=== PATIENT | female | born 1940 | race Caucasian/White ===

== ENCOUNTER → 2022-04-12 | Outpatient (CLI) | payer MEDICARE, MEDICAID, SELFPAY ==
--- NOTE | 2022-04-12 13:31 | VDLE_ITS ---
Reason For Study: Venous insufficiency RIGHT LEFT CFV is compressible, spontaneous, phasic, CFV is compressible, spontaneous, phasic, competent and demonstrates normal competent, and demonstrates normal augmentation. augmentation. FV is compressible, spontaneous, phasic, FV is compressible, spontaneous, phasic, competent and demonstrates normal competent and demonstrates normal augmentation. augmentation. POP V is compressible, spontaneous, phasic, POP V is compressible, spontaneous, phasic, competent and demonstrates normal competent and demonstrates normal augmentation. augmentation. T/P Trunk is compressible. T/P Trunk is compressible. PTV is compressible. PTV is compressible. RT PerV is compressible. LT PerV is compressible. SFJ is competent and measures 0.80 x 0.86 cm. SFJ is INCOMPETENT and measures 0.91 x 1.00 GSV proximal thigh measures 0.66 x 0.66 cm. cm. GSV above knee is competent. GSV proximal thigh measures 0.52 x 0.56 cm. GSV at knee measures 0.62 x 0.67 cm. GSV at knee measures 0.52 x 0.53 cm. GSV below knee is INCOMPETENT for greater GSV INCOMPETENT throughout for greater than than 0.5 seconds. 0.5 seconds. ASV proximal calf is INCOMPETENT for greater ASV proximal calf is INCOMPETENT for greater than 0.5 seconds and measures 0.33 x 0.33 cm. than 0.5 seconds and measures 0.36 x 0.36 cm. SSV at junction is competent and measures SSV at junction is competent and measures 0.20 x 0.20 cm. 0.07 x 0.07 cm. Procedure Exam performed in department. This is a venous duplex using B-mode, color flow and spectral Doppler. Patient was scanned in reverse Trendelenburg position during reflux assessment. VL/Venous Duplex US - Jason Extrem Interpretation Summary Bilateral no DVT noted. The right calf ASV and GSV with reflux noted. The left GSV measuring 9.1, 5.6 and 5.3 mm with reflux throughout. Ordering Physician: Yimi Pope Referring Physician: Tu Younger Performed By: Elvira Crowe RVT
== END | disposition home or self-care (01) ==
LOC: CVS 13:29
PROVIDERS: PCP Family Medicine; Visit Provider Surgery Vascular Surgery
DX: I87.2 Venous insufficiency (chronic) (peripheral) (principal); J44.1 Chronic obstructive pulmonary disease with (acute) exacerbation; I83.893 Varicose veins of bilateral lower extremities with other complications; M79.89 Other specified soft tissue disorders; M79.606 Pain in leg, unspecified; F17.200 Nicotine dependence, unspecified, uncomplicated
CPT/HCPCS: 93970

== ENCOUNTER 2022-05-30 05:16 | Day surgery (SDC) | payer MEDICARE, MEDICAID, SELFPAY ==
[2022-05-30] VITALS (7 sets, daily range): BP systolic 128–184; BP diastolic 64–82; PULSE 63–83; RESP 14–141; TEMP 36–36.4; O2SAT 98; BMI 24.5
[2022-05-30] MEDS: Lactated Ringers 1,000 ML 15 ML IV (06:07)
--- NOTE | 2022-05-30 06:30 | COLBX_PTH ---
PATIENT: FLORECITA HERNANDEZ LOC: EN U#:[id number] AGE/SX: 81/F ROOM: RE05/30/[address]: Dr. Jose Angel Borrero DO : 1940 BED: DIS: 05/30/2022 SPEC #: [id number] RECD: 05/30/22 09:16 STATUS: JUSTINA SNYDER #: [id number] JUANJOSE: 05/30/22 06:[address]: Jose Angel Borrero DEPT: SURGICAL PATHOLOGY RECD BY: Franci Mcneill ENTERED: 05/30/22 10:00 SP TYPE: COLON BX OTHR DR: MD Tu Ibrahim Tissues: A - Cecum, NOS B - COLON BIOPSY C - Rectum, NOS D - Rectum, NOS Procedures: Surgery Specimen Level IV HEADER OPERATION: Colonoscopy (MAC), polypectomy PRE-OP DIAGNOSIS: History of colonic polyps, bleeding internal hemorrhoids TISSUE SUBMITTED: A - Cecal polyp, B - Splenic flexure polyp, C - Rectal polyp biopsy, D - Anorectal junction biopsy MICROSCOPIC DIAGNOSIS A. Cecal polyp, biopsy: Fragments of tubular adenoma. B. Splenic flexure polyp, biopsy: Fragments of tubular adenoma. C. Rectal polyp, biopsy: Fragments of hyperplastic polyp. D. Anorectal junction, biopsy: Denudation of superficial mucosa with fibrinopurulent material suggestive of ulcer. AM:venkatesh 05/31/2022 MICROSCOPIC DESCRIPTION Slides are reviewed. GROSS DESCRIPTION A - Received in fixative is one container labeled with the patient's name and designated cecal polyp. The specimen consists of multiple mucoid fragments that in aggregate measure 1 x 0.6 x <0.1 cm. The specimen is totally submitted in one cassette. B - Received in fixative is one container labeled with the patient's name and designated splenic flexure polyp. The specimen consists of multiple irregular fragments of light moore soft tissue that in aggregate measure 0.6 x 0.5 x 0.1 cm. The specimen is totally submitted in one cassette. C - Received in fixative is one container labeled with the patient's name and designated rectal polyp. The specimen consists of two irregular fragments of light moore soft tissue that in aggregate measure 0.6 x 0.5 x 0.1 cm. The specimen is totally submitted in one cassette. D - Received in fixative is one container labeled with the patient's name and designated anorectal junction biopsy. The specimen consists of two irregular fragments of light moore soft tissue that in aggregate measure 0.5 x 0.5 x 0.1 cm. The specimen is totally submitted in one cassette. / AM:venkatesh 05/30/2022 TC:2 CPT: 02920 x4
--- NOTE | 2022-05-30 06:35 | PCM.HP.BLA ---
History and Physical Date of Admission: 05/30/22 ?EVANGELINA HERNANDEZ, is a 81 F who presents to the office today for Initial consult. Evangelina established with this clinic 04.17.22 with referral from PCP for evaluation of hemorrhoids, constipation and possible need for colonoscopy. Her age is 81 years which puts her outside of the ability to schedule through open access. Historically she was having difficulty with constipation and abdominal pain (relieved with BM) for several days alternating with several days of diarrhea. She has been on narcotics since 1976 for pain management; stopped and pain has actually improved with a reduction in hip and joint pain. Constipation has required manual disimpaction; no longer needed since cessation of narcotics. For recent memory she has been having increased issue with constipation and less diarrhea. Failed Colace and MiraLAX, senna, laxatives, enemas. PMH chronic pain syndrome, degenerative disc disease ([facility] pain management); breast cancer s/p mastectomy; hyperlipidemia; HTN; osteopenia; Jovana thyroiditis. PSH cholecystectomy. CT abd/pel 11.01.21 with limited assessment of colon r/t absence of luminal distention; noted intraluminal fat in ascending colon; colonic diverticulosis. Colonoscopy last performed three years prior with four polyps removed (first time polyps were removed). Previously had been having colonoscopies each year. ROS Const Constitutional: No anorexia, fatigue, fever(s), weight change or sleep problems Eyes Eyes: No change in vision ENT ENT: No abnormal hearing, difficulty swallowing, mouth lesions, tongue swelling or throat swelling Resp Respiratory: No cough or shortness of breath Cardio Cardiology: No chest pain at rest, chest pain with exertion, shortness of breath or dyspnea on exertion Gastro GI: No difficulty swallowing Genitourinary-Female: No difficulty urinating or burning urination Musc Musculoskeletal: No joint pain, joint swelling, muscle weakness or decreased muscle mass Skin Skin: No hair loss in leg, yellowing of the eye, itchy eyes, rash, skin ulcer or skin swelling Neuro Neurology: No abnormal hearing, abnormal movements, confusion, unsteady gait/balance or memory loss Psych Psychiatric: No anxiety, No confusion and No memory loss Endo Endocrine: No fatigue or weight change Aller/Imm Allergy/Immunologic: No itchy eyes, throat swelling or tongue swelling Shmuel/Lymp Hematologic/Lymphatic: No easy bleeding, easy bruising or enlarged lymph nodes Exam Const General: cooperative and comfortable Nutritional Appearance: average body habitus and well nourished [facility] Head: normal to inspection Ears: hearing grossly normal bilaterally Nose: external nose normal Face and sinus: normal facial exam Mouth: oral mucosae normal Throat: posterior oropharynx normal Eyes General: appearance normal, both eyes and all related structures Neck Neck: normal visual inspection Chest Chest palpation & inspection: normal inspection of the chest and normal palpation of entire chest wall Resp Effort & Inspection: normal respiratory effort Auscultation: Bilateral: Clear to Auscultation Cardio Palpation: normal PMI Rate: regular rate Rhythm: regular rhythm GI Inspection: normal to inspection Auscultation: normal bowel sounds Percussion: normal to percussion Palpation: no hepatosplenomegaly Skin General: no rashes or lesions noted Neuro General: patient alert Extrem General: normal to inspection Psych Affect: normal affect Quality Reporting Tobacco Screening ([facility] 138) Smoking Status: Current every day smoker Assessment and Plan Assessment and Plan (1) Personal history of colonic polyps: ?Status:?Acute ?Plan - Dr. Walter Friend, DO: She will undergo colonoscopic evaluation due to history of adenomatous polyps.? She had 4 removed on her last colonoscopy.? She was explained alternatives, risk, benefits including understanding bleeding, infection, sepsis, perforation, need for emergent .? Have an ASA of 1. (2) Bleeding internal hemorrhoids: ?Status:?Acute ?Plan - Dr. Walter Friend, DO: Also she does have internal hemorrhoids.? We will treat them when she has colonoscopy. I have re-examined the patient. There are no clinical changes since date of exam.
--- NOTE | 2022-05-30 07:29 | OP.COLON_ITS ---
Patient Name: Evangelina Healy Procedure Date: 05/30/2022 6:13 AM Date of : 1940 Age: 81 Procedure: Colonoscopy Indications: Screening for colorectal malignant neoplasm Providers: Jose Angel Borrero DO Referring MD: Tu Younger Medicines: Monitored Anesthesia Care Patient Profile: This is a 81 year old female. Refer to note in patient chart for documentation of history and physical. Last Colonoscopy: more than 10 years ago. Complications: No immediate complications. Procedure: Pre-Anesthesia Assessment: - Prior to the procedure, a History and Physical was performed, and patient medications and allergies were reviewed. The patient is competent. The risks and benefits of the procedure and the sedation options and risks were discussed with the patient. All questions were answered and informed consent was obtained. Patient identification and proposed procedure were verified by the physician in the pre-procedure area. Mental Status Examination: alert and oriented. Airway Examination: normal oropharyngeal airway and neck mobility. Respiratory Examination: clear to auscultation. CV Examination: normal. Prophylactic Antibiotics: The patient does not require prophylactic antibiotics. Prior Anticoagulants: The patient has taken no previous anticoagulant or antiplatelet agents. After reviewing the risks and benefits, the patient was deemed in satisfactory condition to undergo the procedure. The anesthesia plan was to use moderate sedation / analgesia (conscious sedation). Immediately prior to administration of medications, the patient was re-assessed for adequacy to receive sedatives. The heart rate, respiratory rate, oxygen saturations, blood pressure, adequacy of pulmonary ventilation, and response to care were monitored throughout the procedure. The physical status of the patient was re-assessed after the procedure. After I obtained informed consent, the scope was passed under direct vision. Throughout the procedure, the patient's blood pressure, pulse, and oxygen saturations were monitored continuously. The Colonoscope was introduced through the anus and advanced to the cecum, identified by the appendiceal orifice, ileocecal valve and palpation. The colonoscopy was performed without difficulty. The patient tolerated the procedure well. The quality of the bowel preparation was adequate. Scope In: 6:41:50 AM Scope Withdrawal Time 0 hours 25 minutes 4 seconds Scope Out: 7:15:51 AM Total Procedure Duration Time 0 hours 34 minutes 1 second Findings: The perianal and digital rectal examinations were normal. Three sessile polyps were found in the rectum, splenic flexure and ascending colon. The polyps were 1 to 2 mm in size. These polyps were removed with a hot snare. Resection and retrieval were complete. Verification of patient identification for the specimen was done. Estimated blood loss was minimal. Bleeding external and internal hemorrhoids were found during retroflexion and during perianal exam. The hemorrhoids were Grade II (internal hemorrhoids that prolapse but reduce spontaneously). A hemorrhoid was isolated with endoscopy. The ligator was positioned over the hemorrhoid at the left lateral position. Suction was applied and one rubber band was placed over the hemorrhoid. This was checked to make certain that the muscularis was free of the band. Post-banding digital rectal exam showed band in good position. Mild oozing of blood was present. Discontinuous areas of nonbleeding ulcerated mucosa with no stigmata of recent bleeding were present at the anus. Biopsies were taken with a cold forceps for histology. Verification of patient identification for the specimen was done. Estimated blood loss was minimal. A few small and large-mouthed diverticula were found in the recto-sigmoid colon and sigmoid colon. Impression: - Three 1 to 2 mm polyps in the rectum, at the splenic flexure and in the ascending colon, removed with a hot snare. Resected and retrieved. - Bleeding external and internal hemorrhoids. Banded. - Mucosal ulceration. Biopsied. Recommendation: - Discharge patient to home. - Resume previous diet. - Continue present medications. - Await pathology results. - Repeat colonoscopy in 5 years for surveillance. Procedure Code(s): --- Professional --- 89013, Colonoscopy, flexible; with removal of tumor(s), polyp(s), or other lesion(s) by snare technique 23309, Colonoscopy, flexible; with band ligation(s) (eg, hemorrhoids) 40097, 59, Colonoscopy, flexible; with biopsy, single or multiple CPT copyright 2017 [employer]. All rights reserved. The codes documented in this report are preliminary and upon sales service coordinator review may be revised to meet current compliance requirements. Jose Angel Borrero DO 05/30/2022 7:28:55 AM This report has been signed electronically. Number of Addenda: 1 Note Initiated On: 05/30/2022 6:13 AM Addendum Number: 1 Addendum Date: 08/16/2022 6:17:38 AM MAC was used as sedation for this procedure. Jose Angel Borrero DO 08/16/2022 6:17:41 AM This report has been signed electronically.
--- NOTE | 2022-05-30 07:30 | OP.CCLET_ITS ---
08/16/2022 Tu Younger Re : Colonoscopy procedure for Evangelina Gaytan Carisa This procedure was performed on Monday, May 30, 2022. My impressions and recommendations are as follows: Impressions : - Three 1 to 2 mm polyps in the rectum, at the splenic flexure and in the ascending colon, removed with a hot snare. Resected and retrieved. - Bleeding external and internal hemorrhoids. Banded. - Mucosal ulceration. Biopsied. Recommendations : - Discharge patient to home. - Resume previous diet. - Continue present medications. - Await pathology results. - Repeat colonoscopy in 5 years for surveillance. My findings are described in the full procedure note, which is enclosed. If I can be of further assistance, please feel free to contact me at . Sincerely, Jose Angel Borrero, 05/30/2022 7:28:55 AM This report has been signed electronically.
== END 2022-05-30 08:09 | disposition home or self-care (01) ==
LOC: EN 05:16 → AC 05:18
PROVIDERS: PCP Family Medicine; Visit Provider Internal Medicine Gastroenterology
PROC: 0DJD8ZZ Inspection of Lower Intestinal Tract, Via Natural or Artificial Opening Endoscopic (ICD-10-PCS; CPT 45378; principal; 2022-05-30 06:25)
DX: Z12.11 Encounter for screening for malignant neoplasm of colon (principal); K64.1 Second degree hemorrhoids; K57.30 Diverticulosis of large intestine without perforation or abscess without bleeding; K62.1 Rectal polyp; D12.0 Benign neoplasm of cecum; D12.3 Benign neoplasm of transverse colon; F17.200 Nicotine dependence, unspecified, uncomplicated; Z79.890 Hormone replacement therapy; Z79.899 Other long term (current) drug therapy; Z86.010 Personal history of colon polyps
CPT/HCPCS: 45385; 45380; 45398; 88305; J7120; J2405

== ENCOUNTER → 2022-11-20 | Outpatient (CLI) | payer MEDICARE, MEDICAID, SELFPAY | END | disposition home or self-care (01) | PROVIDERS: PCP Family Medicine; Referring Provider Dermatology; Visit Provider Dermatology | DX: L40.4 Guttate psoriasis (principal); L03.115 Cellulitis of right lower limb | CPT/HCPCS: 87070; 87077; 87205 ==

== ENCOUNTER → 2022-12-05 | Outpatient (CLI) | payer MEDICARE, MEDICAID, SELFPAY | END | disposition home or self-care (01) | LOC: LABSPEC 12:49 | PROVIDERS: PCP Family Medicine; Visit Provider Dermatology | DX: L03.115 Cellulitis of right lower limb (principal); I87.2 Venous insufficiency (chronic) (peripheral) | CPT/HCPCS: 87070; 87205 ==

== ENCOUNTER → 2022-12-11 | Outpatient (CLI) | payer MEDICARE, MEDICAID, SELFPAY | END | disposition home or self-care (01) | PROVIDERS: PCP Family Medicine; Visit Provider Dermatology | DX: L03.115 Cellulitis of right lower limb (principal); I87.2 Venous insufficiency (chronic) (peripheral) | CPT/HCPCS: 87015; 87070; 87101; 87116; 87205; 87206 ==

== ENCOUNTER 2023-11-13 19:41 | Emergency (ER) | payer MEDICARE, MEDICAID, SELFPAY ==
[2023-11-13 19:42] VITALS: BP 156/91; PULSE 94; RESP 18; TEMP 36.6; O2SAT 97
[2023-11-13] MEDS: 0.9% Normal Saline (1000mL) 1,000 ML 1000 ML IV (20:24)
[2023-11-13 20:27] LABS: Absolute Lymphocyte Count 1.24 X10^3/uL (0.83-4.51); Absolute Neutrophil Count 5.1 X10^3/uL (2.0-7.7); Basophil# 0.04 X10^3/uL; Basophil% 0.6 % (0-1); Eosinophil# 0.03 X10^3/uL; Eosinophils% 0.4 % (0-5); Hematocrit 35.9 % (37-47); Hemoglobin 12.7 g/dL (12.0-15.0); Lymphocyte # 1.24 X10^3/ul (0.83-4.51); Lymphocyte % 17.2 % (19-41); Mean Corp Hgb Conc 35.4 g/dL (32-36); Mean Corpuscular Hgb 30.4 pg (27.0-32.0); Mean Corpuscular Volume 85.9 fL (81-99); Mean Platelet Vol. 11.3 fl (6.2-12.0); Monocyte# 0.71 X10^3/uL; Monocyte% 9.8 % (0-10); NRBC Flagged by Analyzer 0 % (0-5); Neutrophil # 5.13 X10^3/uL (2.7-7.7); Neutrophil % 71.2 % (47-70); Platelet Count 227 K/mm3 (150-450); RBC Distribution Width CV 14.6 % (11.6-14.6); RBC Distribution Width SD 42.5 fl (35.1-43.9); Red Blood Count 4.18 M/mm3 (4.2-5.4); White Blood Count 7.2 K/mm3 (4.4-11.0)
--- OUTSIDE RECORDS SUMMARY | 2023-11-13 20:32 | XMS RPT_ITS | CCD ---
Author Name Unknown Address [address] [place] [address] Organization [facility] Care Team Providers Care Commodity Manager Name Role Phone Hilton MEDEIROS, Tu Fernando Primary Care Provider Hilton MEDEIROS, Tu Fernando Primary Care Provider [phone] Nolan ERIC, Guerda Unavailable Ryne RN, Bhupinder Monzon Unavailable Unavailable Ryne ERIC, Bhupinder Monzon Unavailable Unavailable PROVIDER, UNKNOWN Primary Care Unavailable PROVIDER, UNKNOWN Primary Care Unavailable PROVIDER, UNKNOWN Primary Care Unavailable AKASH SMITH Admitting Unavailable RC RODRIGUEZ Consulting Unavailable PROVIDER, UNKNOWN Attending Unavailable PROVIDER, UNKNOWN Primary Care Unavailable PROVIDER, UNKNOWN Primary Care Unavailable PROVIDER, UNKNOWN Primary Care Unavailable HILTON, TU Fernando Primary Care Unavailable Aneta BROWN Referring Unavailable HILTON, TU Fernando Referring Unavailable HILTON, TU Fernando Primary Care Unavailable TU CANELA Attending Unavailable HILTON, TU Fernando Primary Care Unavailable JANNIE PROCTOR Referring Unavailable JANNIE PROCTOR Attending Unavailable TU CANELA Primary Care Unavailable HILTON, TU Fernando Referring Unavailable HILTON, TU Fernando Primary Care Unavailable HILTON, TU Fernando Primary Care Unavailable TU CANELA Referring Unavailable FREDI GALICIA Attending Unavailable TU CANELA Primary Care Unavailable NEVIN FAJARDO Referring Unavailable NEVIN FAJARDO Attending Unavailable NEVIN FAJARDO Referring Unavailable NEVIN FAJARDO Attending Unavailable HILTON, TU Fernando Primary Care Unavailable HILTON, TU Fernando Primary Care Unavailable ROSIE SYED Attending Unavailable JANNIE PROCTOR Referring Unavailable HILTON, TU Fernando Primary Care Unavailable HILTON, TU Fernando Primary Care Unavailable ROSIE SYED Attending Unavailable HILTON, TU Fernando Primary Care Unavailable ROSIE SYED Attending Unavailable HILTON, TU Fernando Primary Care Unavailable NEVIN FAJARDO Referring Unavailable TU CANELA Primary Care Unavailable PROCTOR, JANNIE D Referring Unavailable JANNIE PROCTOR Attending Unavailable TU CANELA Primary Care Unavailable JANNIE PROCTOR Referring Unavailable TU CANELA Primary Care Unavailable ROSIE SYED Attending Unavailable TU CANELA Primary Care Unavailable FREDI GALICIA Referring Unavailable FREDI GALICIA Attending Unavailable TU CANELA Primary Care Unavailable JANNIE PROCTOR Attending Unavailable JANNIE PROCTOR [facility] Unavailable Aneta BROWN Attending Unavailable Allergies Allergy Classification Reported Allergen(s) Allergy Type Date of Onset Reaction(s) Facility (20 sources) Carisoprodol; Translations: [CARISOPRODOL] Drug Allergy 2 Swelling, Itching [facility] Work Phone: (20 sources) Dust; Translations: [DUST] Allergy to substance 6 Other: See Comments [facility] Work Phone: (20 sources) Grass pollen; Translations: [GRASS POLLEN] Drug Allergy 6 Other: See Comments [facility] Work Phone: (20 sources) Mold Extract; Translations: [MOLD] Drug Allergy 6 Other: See Comments [facility] Work Phone: (20 sources) Tree; Translations: [TREES] Allergy to substance 6 Other: See Comments [facility] Work Phone: (20 sources) Animal Dander; Translations: [ANIMAL DANDER] Drug Allergy 6 Intolerance [facility] Work Phone: (20 sources) Propoxyphene N-Acetaminophen; Translations: [PROPOXYPHENE N-ACETAMINOPHEN] Drug Allergy 2 Mental Status Change [facility] Work Phone: Medications Current Medications Medication Drug Class(es) Dates Sig (Normalized) Sig (Original) baclofen 10 mg oral tablet (20 sources) gamma-Aminobutyri c Acid-ergic Agonist Start: 07-31-2023 End: 01-27-2024 take 1 tablet by mouth every twelve hours as needed baclofen 10 mg tablet Take 1 tablet by mouth twice daily as needed. 90 tablet 1 07/31/2023 01/27/2024 Active Completed/Discontinued Medications Medication Drug Class(es) Dates Sig (Normalized) Sig (Original) acetaminophen 325 mg oral tablet (20 sources) Start: 11-14-2022 take 2 tablets by mouth every four hours as needed acetaminophen (TYLENOL) 325 mg tablet Take 2 tablets by mouth every 4 hours as needed for pain. 0 11/14/2022 Active Problems Active Problems Problem Classification Problem Date Documented Da te Episodic/Chronic Aortic; peripheral; and visceral artery aneurysms (20 sources) Dilatation of aorta; Translations: [Aortic ectasia, unspecified site] Onset: 06-14-2022 Chronic Cancer of breast (20 sources) Malignant neoplasm of upper-outer quadrant of female breast; Translations: [Malignant neoplasm of upper-outer quadrant of left female breast] Onset: 05-28-2015 09-02-2018 Chronic Chronic kidney disease (20 sources) Chronic kidney disease stage 3; Translations: [CKD (chronic kidney disease) stage 3, GFR 30-59 ml/min] Onset: 01-21-2019 01-21-2019 Chronic Chronic kidney disease (1 source) Chronic kidney disease; Translations: [Stage 3a chronic kidney disease (HCC)] Onset: 11-06-2022 Chronic obstructive pulmonary disease and bronchiectasis (4 sources) Chronic obstructive lung disease; Translations: [Chronic obstructive pulmonary disease, unspecified] Onset: 01-16-2023 Chronic Complications of surgical procedures or medical care (20 sources) Postoperative hypothyroidism; Translations: [Postprocedural hypothyroidism] Onset: 11-06-2022 11-06-2022 Chronic Disorders of lipid metabolism (20 sources) Hyperlipidemia; Translations: [Hyperlipidemia, unspecified] Onset: 06-03-2012 06-03-2012 Chronic Essential hypertension (20 sources) Hypertensive disorder; Translations: [Essential (primary) hypertension] Onset: 06-03-2012 06-03-2012 Chronic Fluid and electrolyte disorders (3 sources) Hyponatremia; Translations: [Hypo-osmolality and hyponatremia] Onset: 11-06-2023 Episodic Osteoarthritis (20 sources) Bilateral arthritis of glenohumeral joints; Translations: [Primary osteoarthritis, right shoulder] Onset: 12-03-2019 06-14-2022 Chronic Other diseases of kidney and ureters (1 source) Cyst of kidney; Translations: [Cyst of kidney, acquired] Episodic Other diseases of veins and lymphatics (1 source) Peripheral venous insufficiency; Translations: [Venous insufficiency (chronic) (peripheral)] Episodic Other gastrointestinal disorders (1 source) Abdominal mass; Translations: [Other intra-abdominal and pelvic swelling, mass and lump] Episodic Other gastrointestinal disorders (1 source) Finding of abdominopelvic segment of trunk; Translations: [Intra-abdominal and pelvic swelling, mass and lump, unspecified site] Episodic Other inflammatory condition of skin (20 sources) Psoriasis; Translations: [Other psoriasis] Onset: 10-18-2012 10-18-2012 Chronic Other inflammatory condition of skin (1 source) Psoriasis, unspecified; Translations: [Psoriasis] Onset: 01-16-2023 Chronic Other liver diseases (20 sources) Steatosis of liver; Translations: [Fatty (change of) liver, not elsewhere classified] Onset: 06-14-2022 Chronic Other nervous system disorders (20 sources) Chronic pain syndrome; Translations: [Chronic pain syndrome] Onset: 08-25-2019 08-25-2019 Chronic Other nervous system disorders (3 sources) Chronic pain; Translations: [Other chronic pain] Chronic Other nervous system disorders (1 source) Other chronic pain; Translations: [Other chronic pain] Onset: 01-16-2023 Chronic Peripheral and visceral atherosclerosis (3 sources) Peripheral vascular disease, unspecified; Translations: [Peripheral vascular disease, unspecified] Onset: 02-13-2023 Chronic Residual codes; unclassified (1 source) Left before treatment complete; Translations: [Patient's noncompliance with other medical treatment and regimen] Episodic Spondylosis; intervertebral disc disorders; other back problems (20 sources) Arthritis of facet joint of lumbar spine; Translations: [Spondylosis without myelopathy or radiculopathy, lumbar region] Onset: 11-06-2018 11-06-2018 Chronic Substance-related disorders (20 sources) Nicotine dependence; Translations: [Nicotine dependence, unspecified, uncomplicated] Onset: 11-14-2022 11-14-2022 Chronic Varicose veins of lower extremity (2 sources) Varicose veins of lower extremity; Translations: [Varicose veins of bilateral lower extremities with other complications] Episodic Viral infection (1 source) COVID-19; Translations: [COVID] Onset: 11-06-2023 Past or Other Problems Problem Classification Problem Date Documented Date Episodic/Chronic Abdominal hernia (4 sources) Disorder of abdominal wall; Translations: [Ventral hernia without obstruction or gangrene] Onset: 03-13-2023 Episodic Cancer of breast (3 sources) History of malignant neoplasm of breast; Translations: [Personal history of malignant neoplasm of breast] Onset: 05-03-2023 Episodic Diabetes mellitus without complication (17 sources) Prediabetes; Translations: [Prediabetes] Onset: 02-15-2019 02-15-2019 Episodic Genitourinary symptoms and ill-defined conditions (20 sources) Retention of urine; Translations: [Retention of urine, unspecified] Onset: 11-06-2022 11-06-2022 Episodic Hemorrhoids (20 sources) Bleeding internal hemorrhoids; Translations: [Other hemorrhoids] Onset: 06-14-2022 06-14-2022 Episodic Mycoses (20 sources) Candidiasis of vagina; Translations: [Vaginitis due to Callie] Onset: 11-11-2022 11-11-2022 Episodic Other and unspecified benign neoplasm (20 sources) History of polyp of colon; Translations: [Personal history of colonic polyps] Onset: 06-14-2022 Episodic Other diseases of veins and lymphatics (20 sources) Vascular insufficiency; Translations: [Venous insufficiency (chronic) (peripheral)] Onset: 03-02-2023 Episodic Other diseases of veins and lymphatics (1 source) Venous insufficiency (chronic) (peripheral); Translations: [Venous (peripheral) insufficiency] Onset: 05-18-2023 Episodic Other inflammatory condition of skin (20 sources) Lichen simplex chronicus; Translations: [Lichen simplex chronicus] Onset: 10-18-2012 10-18-2012 Episodic Other lower respiratory disease (20 sources) Multiple nodules of lung; Translations: [Other nonspecific abnormal finding of lung field] Onset: 07-08-2012 11-28-2018 Episodic Other non-traumatic joint disorders (20 sources) Hip pain; Translations: [Pain in left hip] Onset: 08-25-2019 08-25-2019 Episodic Other non-traumatic joint disorders (20 sources) Pain in right hip joint; Translations: [Pain in right hip] Onset: 08-25-2019 08-25-2019 Episodic Other non-traumatic joint disorders (20 sources) Shoulder pain; Translations: [Pain in left shoulder] Onset: 02-19-2020 02-19-2020 Episodic Other non-traumatic joint disorders (17 sources) Pain in left shoulder; Translations: [Pain in joint, shoulder region] Onset: 02-19-2020 02-19-2020 Episodic Other non-traumatic joint disorders (17 sources) Pain in right shoulder; Translations: [Pain in joint, shoulder region] Onset: 02-19-2020 11-06-2022 Episodic Other nutritional; endocrine; and metabolic disorders (20 sources) H/O: thyroid disorder; Translations: [Personal history of other endocrine, nutritional and metabolic disease] Onset: 06-03-2012 11-07-2021 Episodic Other screening for suspected conditions (not mental disorders or infectious disease) (5 sources) Patient encounter status; Translations: [Encounter for screening mammogram for malignant neoplasm of breast] Onset: 05-03-2023 Episodic Residual codes; unclassified (20 sources) Unspecified problems with limbs and other problems; Translations: [Problem] Onset: 06-14-2022 06-14-2022 Episodic Residual codes; unclassified (1 source) Estrogen receptor positive status [ER+]; Translations: [Malignant neoplasm of upper-outer quadrant of left breast in female, estrogen receptor positive (HCC)] Onset: 09-02-2018 Episodic Skin and subcutaneous tissue infections (20 sources) Cellulitis of lower leg; Translations: [Cellulitis of right lower limb] Onset: 11-06-2022 11-11-2022 Episodic Spondylosis; intervertebral disc disorders; other back problems (20 sources) Neck pain; Translations: [Cervicalgia] Onset: 03-26-2018 03-26-2018 Episodic Results Test Name Value Interpretation Reference Range Facil ity Vital Signs Date Time Vital Sign Value Performing Clinician Ramon moon 09-25-2023 10:51-0500 Diastolic blood pressure 84 mm[Hg] Nevin Fajardo APRN.CNP Work Phone: [facility] 09-25-2023 10:51-0500 Systolic blood pressure 146 mm[Hg] Nevin Fajardo APRN.CNP Work Phone: [facility] 09-25-2023 10:13-0500 Body height 165.1 cm Nevin Fajardo APRN.CNP Work Phone: [facility] 09-25-2023 10:13-0500 Body temperature 97.2 [degF] Nevin Fajardo C++ QUANT DEVELOPER.GRADUATE TEACHER EDUCATION Work Phone: [facility] 09-25-2023 10:13-0500 Body weight 73.03 kg Nevin Fajardo C++ QUANT DEVELOPER.GRADUATE TEACHER EDUCATION Work Phone: [facility] 09-25-2023 10:13-0500 Heart rate 80 /min Nevin Fajardo C++ QUANT DEVELOPER.GRADUATE TEACHER EDUCATION Work Phone: [facility] 07-31-2023 09:52-0400 Body weight 70.31 kg NA Brown PA-C Work Phone: [facility] 07-31-2023 09:52-0400 Diastolic blood pressure 70 mm[Hg] NA Brown PA-C Work Phone: [facility] 07-31-2023 09:52-0400 Heart rate 84 /min NA Brown PA-C Work Phone: [facility] 07-31-2023 09:52-0400 Respiratory rate 16 /min NA Brown PA-C Work Phone: [facility] 07-31-2023 09:52-0400 SaO2% (BldA) [Mass fraction] 95 % NA Brown PA-C Work Phone: [facility] 07-31-2023 09:52-0400 Systolic blood pressure 132 mm[Hg] NA Brown PA-C Work Phone: [facility] 07-10-2023 11:04-0400 Diastolic blood pressure 79 mm[Hg] Jannie Proctor DO Work Phone: [facility] 07-10-2023 11:04-0400 Heart rate 80 /min Jannie Proctor DO Work Phone: [facility] 07-10-2023 11:04-0400 SaO2% (BldA) [Mass fraction] 97 % Jannie Proctor DO Work Phone: [facility] 07-10-2023 11:04-0400 Systolic blood pressure 144 mm[Hg] Jannie Proctor DO Work Phone: [facility] 07-03-2023 10:07-0400 Diastolic blood pressure 86 mm[Hg] Rosie Haagen C++ QUANT DEVELOPER.GRADUATE TEACHER EDUCATION Work Phone: [facility] 07-03-2023 10:07-0400 Heart rate 73 /min Rosie Haagen C++ QUANT DEVELOPER.GRADUATE TEACHER EDUCATION Work Phone: [facility] 07-03-2023 10:07-0400 Systolic blood pressure 152 mm[Hg] Rosie Haagen C++ QUANT DEVELOPER.GRADUATE TEACHER EDUCATION Work Phone: [facility] 07-03-2023 09:33-0400 Respiratory rate 16 /min Rosie Haagen C++ QUANT DEVELOPER.GRADUATE TEACHER EDUCATION Work Phone: [facility] 07-03-2023 09:33-0400 SaO2% (BldA) [Mass fraction] 97 % Rosie Haagen C++ QUANT DEVELOPER.GRADUATE TEACHER EDUCATION Work Phone: [facility] 05-29-2023 10:27-0400 Body height 152.4 cm Fredi Galicia MD Work Phone: [facility] 05-29-2023 10:27-0400 Body temperature 97.3 [degF] Fredi Galicia MD Work Phone: [facility] 05-29-2023 10:27-0400 Body weight 70.58 kg Fredi Galicia MD Work Phone: [facility] 05-29-2023 10:27-0400 Diastolic blood pressure 88 mm[Hg] Fredi Galicia MD Work Phone: [facility] 05-29-2023 10:27-0400 Heart rate 96 /min Fredi Galicia MD Work Phone: [facility] 05-29-2023 10:27-0400 SaO2% (BldA) [Mass fraction] 99 % Fredi Galicia MD Work Phone: [facility] 05-29-2023 10:27-0400 Systolic blood pressure 136 mm[Hg] Fredi Galicia MD Work Phone: [facility] 05-29-2023 09:29-0400 Diastolic blood pressure 86 mm[Hg] Rosie Hastarla C++ QUANT DEVELOPER.GRADUATE TEACHER EDUCATION Work Phone: [facility] 05-29-2023 09:29-0400 Heart rate 84 /min Rosie Haagen C++ QUANT DEVELOPER.GRADUATE TEACHER EDUCATION Work Phone: [facility] 05-29-2023 09:29-0400 Systolic blood pressure 157 mm[Hg] Rosie Hastarla C++ QUANT DEVELOPER.GRADUATE TEACHER EDUCATION Work Phone: [facility] 05-29-2023 09:16-0400 Respiratory rate 16 /min Rosie Syed C++ QUANT DEVELOPER.GRADUATE TEACHER EDUCATION Work Phone: [facility] 05-29-2023 09:16-0400 SaO2% (BldA) [Mass fraction] 97 % Rosie Syed C++ QUANT DEVELOPER.GRADUATE TEACHER EDUCATION Work Phone: [facility] 05-08-2023 13:05-0400 Diastolic blood pressure 91 mm[Hg] [facility] Work Phone: [facility] 05-08-2023 13:05-0400 Systolic blood pressure 190 mm[Hg] [facility] Work Phone: [facility] 05-08-2023 13:04-0400 Body temperature 97.39 [degF] [facility] Work Phone: [facility] 05-08-2023 13:04-0400 Heart rate 70 /min [facility] Work Phone: [facility] 05-08-2023 13:04-0400 SaO2% (BldA) [Mass fraction] 96 % [facility] Work Phone: [facility] 05-02-2023 09:56-0400 Diastolic blood pressure 83 mm[Hg] Rosie Syed C++ QUANT DEVELOPER.GRADUATE TEACHER EDUCATION Work Phone: [facility] 05-02-2023 09:56-0400 Heart rate 68 /min Rosie Richardagen C++ QUANT DEVELOPER.GRADUATE TEACHER EDUCATION Work Phone: [facility] 05-02-2023 09:56-0400 Systolic blood pressure 174 mm[Hg] Rosie Haagen C++ QUANT DEVELOPER.GRADUATE TEACHER EDUCATION Work Phone: [facility] 05-02-2023 09:45-0400 Respiratory rate 16 /min Rosie Haagen C++ QUANT DEVELOPER.GRADUATE TEACHER EDUCATION Work Phone: [facility] 05-02-2023 09:45-0400 SaO2% (BldA) [Mass fraction] 96 % Rosie Haagen C++ QUANT DEVELOPER.GRADUATE TEACHER EDUCATION Work Phone: [facility] 03-22-2023 14:10-0400 Body temperature 99.39 [degF] Marengo Fajardo C++ QUANT DEVELOPER.GRADUATE TEACHER EDUCATION Work Phone: [facility] 03-22-2023 14:10-0400 Body weight 67.81 kg Nevin Fajardo C++ QUANT DEVELOPER.GRADUATE TEACHER EDUCATION Work Phone: [facility] 03-22-2023 14:10-0400 Diastolic blood pressure 98 mm[Hg] Marengo Fajardo C++ QUANT DEVELOPER.GRADUATE TEACHER EDUCATION Work Phone: [facility] 03-22-2023 14:10-0400 Heart rate 89 /min Marengo Fajardo C++ QUANT DEVELOPER.GRADUATE TEACHER EDUCATION Work Phone: [facility] 03-22-2023 14:10-0400 SaO2% (BldA) [Mass fraction] 95 % Marengo Fajardo C++ QUANT DEVELOPER.GRADUATE TEACHER EDUCATION Work Phone: [facility] 03-22-2023 14:10-0400 Systolic blood pressure 188 mm[Hg] Marengo Fajardo C++ QUANT DEVELOPER.GRADUATE TEACHER EDUCATION Work Phone: [facility] 03-13-2023 10:35-0400 Body height 166.4 cm Fredi Galicia MD Work Phone: [facility] 03-13-2023 10:35-0400 Body temperature 97.11 [degF] Fredi Galicia MD Work Phone: [facility] 03-13-2023 10:35-0400 Body weight 68.58 kg Fredi Galicia MD Work Phone: [facility] 03-13-2023 10:35-0400 Diastolic blood pressure 86 mm[Hg] Fredi Galicia MD Work Phone: [facility] 03-13-2023 10:35-0400 Heart rate 79 /min Fredi Galicia MD Work Phone: [facility] 03-13-2023 10:35-0400 SaO2% (BldA) [Mass fraction] 98 % Fredi Galicia MD Work Phone: [facility] 03-13-2023 10:35-0400 Systolic blood pressure 140 mm[Hg] Fredi Galicia MD Work Phone: [facility] 03-02-2023 10:07-0400 Body weight 68.04 kg Tu Canela MD Work Phone: [facility] 03-02-2023 10:07-0400 Diastolic blood pressure 102 mm[Hg] Tu Canela MD Work Phone: [facility] 03-02-2023 10:07-0400 Heart rate 63 /min Tu Canela MD Work Phone: [facility] 03-02-2023 10:07-0400 SaO2% (BldA) [Mass fraction] 99 % Tu Canela MD Work Phone: [facility] 03-02-2023 10:07-0400 Systolic blood pressure 162 mm[Hg] Tu Caenla MD Work Phone: [facility] 02-13-2023 09:44-0400 Diastolic blood pressure 86 mm[Hg] Jannie Proctor DO Work Phone: [facility] 02-13-2023 09:44-0400 Heart rate 73 /min Jannie Proctor DO Work Phone: [facility] 02-13-2023 09:44-0400 SaO2% (BldA) [Mass fraction] 99 % Jannie Proctor DO Work Phone: [facility] 02-13-2023 09:44-0400 Systolic blood pressure 170 mm[Hg] Jannie Proctor DO Work Phone: [facility] 01-16-2023 13:15-0500 Diastolic blood pressure 83 mm[Hg] [facility] Work Phone: [facility] 01-16-2023 13:15-0500 Systolic blood pressure 188 mm[Hg] [facility] Work Phone: [facility] 01-16-2023 13:11-0500 Body temperature 98.4 [degF] [facility] Work Phone: [facility] 01-16-2023 13:11-0500 Heart rate 78 /min [facility] Work Phone: [facility] 01-16-2023 13:11-0500 SaO2% (BldA) [Mass fraction] 98 % [facility] Work Phone: [facility] 01-09-2023 13:13-0500 Body height 165.1 cm Jannie Proctor DO Work Phone: [facility] 01-09-2023 13:13-0500 Body weight 67.59 kg Jannie Proctor DO Work Phone: [facility] 01-09-2023 13:13-0500 Diastolic blood pressure 82 mm[Hg] Jannie Proctor DO Work Phone: [facility] 01-09-2023 13:13-0500 Heart rate 77 /min Jannie Proctor DO Work Phone: [facility] 01-09-2023 13:13-0500 SaO2% (BldA) [Mass fraction] 97 % Jannie Proctor DO Work Phone: [facility] 01-09-2023 13:13-0500 Systolic blood pressure 169 mm[Hg] Jannie Proctor DO Work Phone: [facility] 12-19-2022 15:08-0500 Diastolic blood pressure 108 mm[Hg] [facility] Work Phone: [facility] 12-19-2022 15:08-0500 Systolic blood pressure 188 mm[Hg] [facility] Work Phone: [facility] 12-19-2022 14:57-0500 Body temperature 98.6 [degF] [facility] Work Phone: [facility] 12-19-2022 14:57-0500 Heart rate 90 /min [facility] Work Phone: [facility] 12-19-2022 14:57-0500 Respiratory rate 18 /min [facility] Work Phone: [facility] 12-19-2022 14:57-0500 SaO2% (BldA) [Mass fraction] 98 % [facility] Work Phone: [facility] 07-25-2022 13:02-0400 Diastolic blood pressure 87 mm[Hg] Mi Nurse Work Phone: [facility] 07-25-2022 13:02-0400 Heart rate 84 /min Mi Nurse Work Phone: [facility] 07-25-2022 13:02-0400 Systolic blood pressure 168 mm[Hg] Mi Nurse Work Phone: [facility] 06-14-2022 09:09-0400 Body height 165.1 cm Tu Canela MD Work Phone: [facility] 06-14-2022 09:09-0400 Body weight 69.04 kg Tu Canela MD Work Phone: [facility] 06-14-2022 09:09-0400 Diastolic blood pressure 88 mm[Hg] Tu Canela MD Work Phone: [facility] 06-14-2022 09:09-0400 Heart rate 79 /min Tu Canela MD Work Phone: [facility] 06-14-2022 09:09-0400 SaO2% (BldA) [Mass fraction] 96 % Tu Canela MD Work Phone: [facility] 06-14-2022 09:09-0400 Systolic blood pressure 180 mm[Hg] Tu Canela MD Work Phone: [facility] 06-09-2022 10:26-0400 Diastolic blood pressure 90 mm[Hg] Nevin Fajardo C++ QUANT DEVELOPER.GRADUATE TEACHER EDUCATION Work Phone: [facility] 06-09-2022 10:26-0400 Systolic blood pressure 154 mm[Hg] Marengo Fajardo C++ QUANT DEVELOPER.GRADUATE TEACHER EDUCATION Work Phone: [facility] 06-09-2022 09:55-0400 Body temperature 97.81 [degF] Marengo Fajardo C++ QUANT DEVELOPER.GRADUATE TEACHER EDUCATION Work Phone: [facility] 06-09-2022 09:55-0400 Body weight 70.31 kg Marengo Fajardo C++ QUANT DEVELOPER.GRADUATE TEACHER EDUCATION Work Phone: [facility] 06-09-2022 09:55-0400 Heart rate 89 /min Nevin Fajardo C++ QUANT DEVELOPER.GRADUATE TEACHER EDUCATION Work Phone: [facility] 06-07-2022 14:02-0400 Body weight 69.85 kg Tu Canela MD Work Phone: [facility] 06-07-2022 14:02-0400 Diastolic blood pressure 92 mm[Hg] Tu Canela MD Work Phone: [facility] 06-07-2022 14:02-0400 Heart rate 88 /min Tu Canela MD Work Phone: [facility] 06-07-2022 14:02-0400 Systolic blood pressure 152 mm[Hg] Tu Canela MD Work Phone: [facility] Encounters Encounter Date Encounter Type Care Provider Facility Start: 11-06-2023 End: 11-08-2023 ambulatory UNKNOWN PROVIDER Facility:[facility] Start: 10-24-2023 ambulatory Bhupinder Boucher RN Amb ulatory Care Management Procedures Date Procedure Procedure Detail Performing Clinician Start: 07-31-2023 INFLUENZA VACCINE, P RSV FREE, AGE 65+ YR, HIGH DOSE, QUADRIVALENT (FLUZONE HIGH-DOSE) M Davin Brown PA-C Work Phone: Start: 05-16-2022 Ct abdomen & pelvis w/contrast material Tu Canela MD Work Phone: Start: 05-10-2022 Adult depression scr eening assessment Ct [facility] Start: 05-02-2022 Screening mammograph y bi 2-view breast inc cad Nevin Fajardo C++ QUANT DEVELOPER.GRADUATE TEACHER EDUCATION Work Phone: Start: 07-30-2018 Adult depression scr eening assessment Tu Canela MD Work Phone: Plan of Treatment Date Care Activity Detail Author Start: 03-02-2026 DIABETES SCREEN DIABETES SCREEN [facility] Start: 03-02-2026 Diabetes Screening Diabetes Screenin g [facility] Start: 02-27-2026 DIABETES SCREEN DIABETES SCREEN [facility] Start: 11-13-2025 DIABETES SCREEN DIABETES SCREEN [facility] Start: 07-25-2025 DIABETES SCREEN DIABETES SCREEN [facility] Start: 06-19-2025 DIABETES SCREEN DIABETES SCREEN [facility] Start: 06-14-2025 DIABETES SCREEN DIABETES SCREEN [facility] Start: 05-16-2025 DIABETES SCREEN DIABETES SCREEN [facility] Start: 11-01-2024 DIABETES SCREEN DIABETES SCREEN [facility] Start: 07-31-2024 Annual PCP Team Incendiaries Supervisor bishnu Disease Visit Annual PCP Team Chronic Disease Visit [facility] Start: 07-31-2024 Shingrix Vaccine (2 of 3) Shingrix V accine (2 of 3) [facility] Immunizations Immunization Date Immunization Notes Care Provider Wilian murphy 07-31-2023 influenza (HD-IIV4) vaccine, age 65+ yr, high dose, quadrivalent, PF (FLUZONE HIGH-DOSE) KAROL Brown PA-C Work Phone: [facility] 10-14-2022 influenza virus vacc ine, unspecified formulation Bhupinder Boucher RN [facility] 09-05-2021 influenza, high-dose , quadrivalent vaccine (FLUZONE HIGH DOSE QUADRIVALENT) Tu Canela MD Work Phone: [facility] 01-14-2021 COVID-19 vaccine, ag e 12+ yr ([employer] - PURPLE TOP) Tu Canela MD Work Phone: [facility] Work Phone: 12-24-2020 COVID-19 vaccine, ag e 12+ yr ([employer] - PURPLE TOP) Tu Canela MD Work Phone: [facility] 08-02-2020 influenza, high dose seasonal, preservative-free Tu Canela MD Work Phone: [facility] 08-02-2020 influenza, injectabl e, quadrivalent, preservative free Tu Canela MD Work Phone: [facility] 07-24-2019 influenza, high dose seasonal, preservative-free Tu Canela MD Work Phone: [facility] 07-30-2018 pneumococcal polysaccharide vaccine, 23 valent Tu Canela MD Work Phone: [facility] 07-27-2018 Seasonal trivalent influenza vaccine, adjuvanted, preservative free Tu Canela MD Work Phone: [facility] 07-04-2017 influenza, high dose seasonal, preservative-free Tu Canela MD Work Phone: [facility] 07-04-2017 Seasonal trivalent influenza vaccine, adjuvanted, preservative free Tu Canela MD Work Phone: [facility] 08-04-2016 influenza, high dose seasonal, preservative-free Tu Canela MD Work Phone: [facility] 08-04-2015 influenza, high dose seasonal, preservative-free Tu Canela MD Work Phone: [facility] 07-12-2015 influenza, high dose seasonal, preservative-free Tu Canela MD Work Phone: [facility] 03-04-2015 pneumococcal conjuga te vaccine, 13 valent Tu Canela MD Work Phone: [facility] 09-03-2014 influenza, seasonal, injectable Tu Canela MD Work Phone: [facility] 08-14-2013 zoster vaccine, live Tu Canela MD Work Phone: [facility] Work Phone: 08-12-2013 influenza virus vacc ine, unspecified formulation Tu Canela MD Work Phone: [facility] 09-03-2012 diphtheria, tetanus toxoids and acellular pertussis vaccine Tu Canela MD Work Phone: [facility] 09-03-2012 influenza virus vacc ine, unspecified formulation Tu Canela MD Work Phone: [facility] 07-08-2011 pneumococcal polysaccharide vaccine, 23 valent Screen Wstr [facility] Work Phone: Payers Date Payer Category Payer Unknown [id number] 2022 Medicare HUMANA MEDICARE HUMANA GOLD PLUS [id number] 2022-Present [phone] [address] [address] [place] [address] HMO [id number] 2022 Private Health Insurance [id number] 2019 Unknown ANTHEM BLUE [facility] AND BLUE [facility] ANTHEM MEDIBLUE HMO [id number] 2019-Present [phone] [address] [place] [address] O [id number] 2019 Unknown [id number] 2016 Medicaid MEDICAID [facility] MEDICAID [id number] 2016-Present [phone] [address] [place] [address] Medicaid [id number] 2016 Medicaid [id number] 2016 Medicaid [id number] Social History Date Type Detail Facility Start: 10-16-2018 End: 09-25-2023 Tobacco smoking status WVIS Smokes tobacco daily [facility] History of tobacco use Cigarette Smoker [facility] Start: 10-16-2018 End: 03-22-2023 Cigarettes smoked current (pack per day) - Reported 1 [facility] Start: 10-16-2018 End: 09-25-2023 Tobacco use and exposure Smokeless tobacco non-user [facility] Start: 01-05-2022 End: 09-25-2023 Alcohol intake Current non-drinker of alcohol (finding) [facility] Start: 01-05-2022 End: 07-05-2022 Tobacco Comment Pt has cut back to 1/4 pack daily. [facility] Start: 1940 Sex Assigned At Not on file [facility] Start: 05-06-2022 End: 07-03-2022 Exposure to SARS-CoV-2 (event) Not sure [facility] Start: 07-05-2022 Tobacco smoking stat us NHIS Ex-smoker [facility] Work Phone: History of tobacco use Current smoker [facility] Work Phone: Start: 11-07-2022 History SDOH Financial 4 [facility] Start: 11-07-2022 History SDOH Food Worry 1 [facility] Start: 11-07-2022 History SDOH Transpo rt Med 2 [facility] Start: 03-22-2023 End: 05-11-2023 Tobacco use panel [facility] How hard is it for y ou to pay for the very basics like food, housing, medical care, and heating Not very hard [facility] Adult Depression Screening Assessment 0 [facility] Work Phone: (I/We) worried wheth er (my/our) food would run out before (I/we) got money to buy more. Never true [facility] In the past 12 month s, was there a time when you were not able to pay the mortgage or rent on time? No [facility] Goals Date Patient Goal Desired Activity /State Personal health goal Clinical Notes 03-26-2018 to 11-09-2023 Bhupinder Boucher RN - 10/24/2023 11:40 AM Bhupinder Schulz RN - 10/23/2023 1:24 PM Nevin Retana APRN.[email or web address] - 09/25/2023 9:56 AM Bhupinder Schulz RN - 09/24/2023 11:12 AM EST Note Date & Type Note Facility 11-09-2023 Note Patient Outreach ([facility] [place]) FLORECITA HEALY ([id number]) 1940 F Date Time Provider Department 11/09/23 ZENAIDA JESSICA During your visit today, we recorded the following information about you: Zenaida Jessica, HERNESTO 11/09/2023 10:42 AM Signed TRANSITIONAL CARE MANAGEMENT (TCM) COMMUNITY MONITORING PROGRAM Provider Action/FYI: PCP TCM follow up scheduled: 11/15/2023 START taking these medications Blood Pressure Test Kit-Medium Kit Use as directed for blood pressure monitoring carvedilol 6.25 mg tablet Commonly known as: COREG Take 1 tablet by mouth two times a day with meals. hydrALAZINE 50 mg tablet Commonly known as: APRESOLINE Take 1 tablet by mouth every 8 hours as needed. 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 Advised to notify PCP for recurring, new/worsening symptoms. Verbalized understanding. SUMMARY: Discharge Network Status: In-Network Discharge Pt discharged from [facility] on 11/08/2023. Admitted for: Covid Contact made with patient: Yes Hi my name is Zenaida Sena RN and I am calling from the [facility] on behalf of your PCP, Tu Canela MD I understand you were recently in the hospital so I am calling to check in with you to ensure you are feeling well now that you're home. May I ask you a few questions related to your hospital stay and well-being? Yes Contact with patient post discharge, spoke to patient. Patient identified by name and . Do you feel your health is BETTER, WORSE, or the SAME since leaving the hospital? Same ACTION TAKEN: Patient indicated symptoms are better or same, no action required. Continue outreach. MEDICATIONS: Many patients have questions or concerns about their medications once they are home. Do you have any questions about taking your medications or which medication you should be on? No Do you need any medication refills at this time, including any of the medications you might take only when needed? No ACTION TAKEN: No action required For RNs or Pharmacy completing outreach ONLY, was a medication review completed? Yes Partial SOCIAL: We would like to make sure you have what you need so that your basics needs are met - including your personal safety, food, housing and medications. Would you like to speak with a social work team assembly line machine operator to help give you support for any of these needs? No It can be normal to feel anxious or down during a time like this. Would you like to talk to a mental health professional about how you have been feeling? No ACTION TAKEN: No action taken DISCHARGE INTRUCTIONS: Your discharge instructions / After Visit Summary (AVS) are important in guiding you through the recovery process. Do you have any questions related to your discharge instructions? No Do you have all the necessary equipment and supplies at home? Yes ACTION TAKEN: No action required I would like to help you schedule a hospital follow-up virtual or telephone visit with your PCP. This is a great way for you to connect with your provider to ensure you have safely transitioned home. If you are agreeable, I will send your request to a dental scheduler who will contact and assist you with that appointment. This will give you an opportunity to ask any questions or address any concerns you may have with your PCP. Inform the patient that if they have any questions or concerns prior to that appointment, to call their PCP's office right away. ACTION TAKEN: No action required, patient already has an appointment scheduled. Your doctor would like us to remind you of the recommendations regarding the coronavirus (Covid19) outbreak: Avoid public places as much as possible. Avoid close contact (within 6 feet) with others you don?t live with, especially if they are sick. Stay home if you are sick. Wash your hands regularly for at least 20 seconds with soap and water. Wear a cloth mask in public places to help reduce community spread. Do not go to your Doctor?s office unless instructed to do so. For any non-emergency symptoms, call your Doctor?s office to get instructions on how to manage (we might recommend a telephone or virtual visit). For emergency symptoms, proceed to Emergency Department as usual but inform them of cough and fever symptoms GAL if present (or call on the way if possible). LINDA Education Ordered -: No Allergies As of Date: 11/09/2023 Noted Allergy Reaction ANIMAL DANDER 08/02/2016 5 - Intolerance DARVOCET A500 (PROPOXYPHENE N-SELENE*06/03/2012 1 - Mental Status Change DUST 08/02/2016 14 - Other: See Comments GRASS POLLEN 08/02/2016 14 - Other: See Comments MOLD (more content not included)... [facility] 11-09-2023 Note HNO ID: [id number] Author: Zenaida Jessica RN Service: ? Author Type: Registered Nurse Type: Progress Notes Filed: 11/09/2023 10:42 AM Note Text: TRANSITIONAL CARE MANAGEMENT (TCM) COMMUNITY MONITORING PROGRAM Provider Action/FYI: PCP TCM follow up scheduled: 11/15/2023 START taking these medications Blood Pressure Test Kit-Medium Kit Use as directed for blood pressure monitoring carvedilol 6.25 mg tablet Commonly known as: COREG Take 1 tablet by mouth two times a day with meals. hydrALAZINE 50 mg tablet Commonly known as: APRESOLINE Take 1 tablet by mouth every 8 hours as needed. 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 Advised to notify PCP for recurring, new/worsening symptoms. Verbalized understanding. SUMMARY: Discharge Network Status: In-Network Discharge Pt discharged from [facility] on 11/08/2023. Admitted for: Covid Contact made with patient: Yes Hi my name is Zenaida Sena RN and I am calling from the [facility] on behalf of your PCP, Tu Canela MD I understand you were recently in the hospital so I am calling to check in with you to ensure you are feeling well now that you're home. May I ask you a few questions related to your hospital stay and well-being? Yes Contact with patient post discharge, spoke to patient. Patient identified by name and . Do you feel your health is BETTER, WORSE, or the SAME since leaving the hospital? Same ACTION TAKEN: Patient indicated symptoms are better or same, no action required. Continue outreach. MEDICATIONS: Many patients have questions or concerns about their medications once they are home. Do you have any questions about taking your medications or which medication you should be on? No Do you need any medication refills at this time, including any of the medications you might take only when needed? No ACTION TAKEN: No action required For RNs or Pharmacy completing outreach ONLY, was a medication review completed? Yes Partial SOCIAL: We would like to make sure you have what you need so that your basics needs are met - including your personal safety, food, housing and medications. Would you like to speak with a social work team assembly line machine operator to help give you support for any of these needs? No It can be normal to feel anxious or down during a time like this. Would you like to talk to a mental health professional about how you have been feeling? No ACTION TAKEN: No action taken DISCHARGE INTRUCTIONS: Your discharge instructions / After Visit Summary (AVS) are important in guiding you through the recovery process. Do you have any questions related to your discharge instructions? No Do you have all the necessary equipment and supplies at home? Yes ACTION TAKEN: No action required I would like to help you schedule a hospital follow-up virtual or telephone visit with your PCP. This is a great way for you to connect with your provider to ensure you have safely transitioned home. If you are agreeable, I will send your request to a dental scheduler who will contact and assist you with that appointment. This will give you an opportunity to ask any questions or address any concerns you may have with your PCP. Inform the patient that if they have any questions or concerns prior to that appointment, to call their PCP's office right away. ACTION TAKEN: No action required, patient already has an appointment scheduled. Your doctor would like us to remind you of the recommendations regarding the coronavirus (Covid19) outbreak: Avoid public places as much as possible. Avoid close contact (within 6 feet) with others you don?t live with, especially if they are sick. Stay home if you are sick. Wash your hands regularly for at least 20 seconds with soap and water. Wear a cloth mask in public places to help reduce community spread. Do not go to your Doctor?s office unless instructed to do so. For any non-emergency symptoms, call your Doctor?s office to get instructions on how to manage (we might recommend a telephone or virtual visit). For emergency symptoms, proceed to Emergency Department as usual but inform them of cough and fever symptoms GAL if present (or call on the way if possible). LINDA Education Ordered -: No [facility] 11-08-2023 Note HNO ID: [id number] Author: Ivory Valadez RN Service: Care Management Author Type: Registered Nurse Type: Care Mgt Progress Note Filed: 11/08/2023 1:12 PM Note Text: CARE MANAGEMENT DISCHARGE NOTE SERVICE DATE: November 08, 2023 SERVICE TIME: 1:11 PM Admission Date: 11/06/2023 LOS: 0 days Discharge Arrangement Discharge Arrangement: Home with Self Care Services Arranged Medical Services: Other: See Comment Provider Name: NA Phone: NA Caregiver Assessment Caregiver is ready, willing and able to meet the patient's needs as recommended by the inter-professional team: No Caregiver needed Transportation Arrangements Transportation Arrangements: Car Date of Trip: 11/08/23 Destination: home Handoff Communication: Handoff to: Primary Care Physician Primary Care Physician Name/Phone: Tu Canela [phone] Additional Information: Discharge written for patient to go home. Patient agreeable to discharge plan and denies needs. Son to transport. Bedside nurse updated. SOC sent to PCP. Follow up appointment scheduled with PA-c for 11/15/23. SIGNATURE: Ivory Valadez RN PATIENT NAME: Florecita Healy DATE: November 08, 2023 TIME: 1:11 PM CONTACT #: [phone] [facility] 11-07-2023 Note HNO ID: [id number] Author: Destiny Guy MD Service: Hospital Medicine Author Type: Physician Type: Plan of Care Filed: 11/07/2023 9:05 PM Note Text: Plan of care : Resistant HTN : will increase dose of hydralazine to 100 mg TID ADD coreg 6.25mg bid [facility] 11-07-2023 Note HNO ID: [id number] Author: Alpesh Guillermo MD Service: Hospital Medicine Author Type: Physician Type: Progress Notes Filed: 11/07/2023 3:03 PM Note Text: DEPARTMENT OF HOSPITAL MEDICINE PROGRESS NOTE SERVICE DATE: 11/07/2023 SERVICE TIME: 2:55 PM Hospital Medicine/Primary Attending: Alpesh Guillermo MD NIGHT AND WEEKEND COVERAGE: [facility] COVERAGE: Days: [id number], please page attending physician. Nights: [phone], please page [facility] Hospitalist Night coverage pager [phone]. Subjective INTERVAL HPI: No acute events overnight. Patient appears to be comfortable resting in bed. On room air. Patient states she feels fatigued. Has been dealing with URI-like symptoms for the past 1 week. Tested positive in emergency room for COVID. Patient's symptoms began close to 8 days ago out of window for remdesivir and since not hypoxic will not require dexamethasone. ID following patient. Patient also noted to be extremely hypertensive. Manage blood pressure. Continue to monitor Current Facility-Administered Medications Medication Dose Route Frequency enoxaparin 40 mg injection (LOVENOX) 40 mg SUBCUTANEOUS q 24 HR NaCl 0.9% iv flush bag 20 mL INTRAVENOUS PRN pregabalin 75 mg cap(s) (LYRICA) 75 mg ORAL AT BEDTIME lisinopril 40 mg tab(s) (ZESTRIL) 40 mg ORAL DAILY amLODIPine 10 mg tab(s) (NORVASC) 10 mg ORAL DAILY baclofen 10 mg tab(s) 10 mg ORAL AT BEDTIME levothyroxine 25 mcg tab(s) (SYNTHROID) 25 mcg ORAL DAILY cyanocobalamin 100 mcg tab(s) (VITAMIN B-12) 100 mcg ORAL DAILY Vitamin E (dl, acetate) 180 mg cap(s) 180 mg ORAL DAILY cholecalciferol 2,000 Units tab(s) (VITAMIN D3) 2,000 Units ORAL DAILY acetaminophen 1,000 mg tab(s) (TYLENOL) 1,000 mg ORAL AT BEDTIME And diphenhydrAMINE 50 mg (BENADRYL) 50 mg ORAL AT BEDTIME ondansetron (PF) 4 mg injection (ZOFRAN) 4 mg INTRAVENOUS q 6 H PRN hydrALAZINE 10 mg injection (APRESOLINE) 10 mg INTRAVENOUS q 6 H PRN Objective PHYSICAL EXAM: BP 185/79 Pulse 70 Temp (Src) 98 (Temporal) Resp 18 Ht 5' 5 (1.65m) Wt 155 lb 13.8 oz (70.7kg) SpO2 95% BMI 25.94 kg/(m2). O2 Therapy: Room Air Physical Exam Performed Constitutional: In no apparent distress. Vital signs stable. Fatigued Eye: Pupils are equal. Extraocular motions intact ENMT: No visible external trauma. Hearing grossly intact. Neck: No adenopathy, no Jugular Vein Distention Cardiovascular: Regular rate and rhythm. S1 and S2 Respiratory: Chest with clear breath sounds bilaterally Gastrointestinal: Soft, without detectable tenderness. No sign of distention. No rebound or guarding, no masses palpated. Bowel sounds present Genitourinary: Bladder soft Musculoskeletal: Good range of motion of all major joints. Extremities without clubbing, without cyanosis, without edema Integumentary: No rash, no bruising, no lesions Neurologic: Oriented to person, place and time. No focal sensory or strength deficits. Speech normal. Follows commands Psychiatric: Calm, cooperative, appropriate Lines, Drains, and Airways Line Duration Peripheral 11/06/232127 [facility] Right Forearm 22 Gauge <1 day Reviewed lines and needs to be continued: REASONS: Intravenous fluids DATA: Diagnostic tests reviewed for today's visit: Most recent labs Most recent imaging Most recent EKG CBC, Coags, BMP, Mg, Phos Recent Labs 11/07/23 0815 11/06/23 1425 WBC 2.22* 2.43* HB 11.3* 12.2 HCT 35.3* 35.4* PLT 103* 109* NA 143 138 K 4.4 3.3* CHLOR 108* 104 CO2 26 22 BUN 17 19 CREAT 0.80 0.77 GLUC 78 132* CA 8.5 8.9 MG 2.2 -- Assessment/Plan Problem List COVID-19 (POA: Yes) HOSPITAL COURSE: Florecita Healy is a 83 year old female with PMHx as listed below who presented to the ED with flu like symptoms x 7 days. She has been having shortness of breath, occasional headaches, sore throat, vomiting and diarrhea. The vomiting and diarrhea have worsened, multiple episodes per day, last episode yesterday night. She has been able to have small sips of water today. She also feels generalized weakness and myalgias. No fevers, chest pain, abd pain, sick contacts at home. She is COVID vaccinated and boosted. # COVID-19 # Dehydration 2/2 diarrhea - Presented with flu like symptoms x 7 days, CXR WNL, no oxygen requirement - COVID vaccinated, boosted Patient symptoms began 8 days ago out of window for remdesivir Plan: - Symptomatic management - tylenol, zofran. Isolation precautions - Holding off on abx -Holding remdesivir and dexamethasone due to being out of window and not hypoxic. - Added lovenox as AC - IVF as needed, electrolyte repletion - D/c planning once optimised Hypertensive urgency Plan- -Continue home blood pressure medications -Add hydralazine 20 mg 3 times daily -Add hydralazine as needed-SBP greater than 180 -Consider adding clonidine -Continue to monitor. # RLS - C/w baclofen, lyrica # Hypothyroidism - (more content not included)... [facility] 11-07-2023 Note HNO ID: [id number] Author: Ivory Valadez RN Service: Care Management Author Type: Registered Nurse Type: Care Mgt Initial Assessment Filed: 11/07/2023 12:34 PM Note Text: CARE MANAGEMENT: ASSESSMENT AND DISCHARGE PLAN SERVICE DATE: November 07, 2023 SERVICE TIME: 12:32 PM PCP: Tu Canela MD - Confirmed. Primary Contact: Extended Emergency Contact Information Primary Emergency Contact: Sae Healy Relation: Grandchild Admission Status: Observation [facility] Discharge Planning requested by: Per Department Practice Potential Transition Plans Home Advance Directives Current Advance Directive: None Explosives Operator Attempted to Assist with AD Completion: Yes Action: Patient Unwilling Current Living Arrangements and Support Lives with: Alone Type of Residence: Private Residence (Apartment or Condo) Does the patient have to climb stairs at home?: stairs within the home Support: Children, Family members How do you manage to accomplish the following: Independent: Ambulation;Bathe/Shower;Dress;M eals/Meal Prep;Going to the bathroom;Medication Management;Transportation to appointments/community Current Services/Equipment Current Post-Acute Service(s): None Discharge Planning Patient Goal(s): Be able to go home, General wellness [place] Explained: [place] of [place] Given: No Reason Not Given: No placements necessary Are you interested in bedside delivery of your medications? No Discharge Planning Participant(s): Patient Patient/Family Comments: Caregiver Assessment: Caregiver is ready, willing and able to meet the patient's needs as recommended by the inter-professional team: No Caregiver needed Transport at Discharge: Transportation Arrangements: Car Needs Prior to Discharge: Needs Prior to Discharge: To Be Determined Post-Acute Discharge Plan: CM spoke with patient to complete assessment, introduced self and role. Pt is 83 y/o, admit Dx Covid. Patient resides at home alone in a duplex with stairs to the basement. IPTA, drives. Presented to ED with flu like sx. Covid positive, not on any covid treatments at this time. IVF for dehydration related to diarrhea. On RA. Pt is AANDO X 3. Possible d/c today. Anticipate basic d/c needs. Son to transport at d/c CM instructed patient that CM team will remain available for any dc needs. SIGNATURE: Ivory Valadez RN PATIENT NAME: Florecita Healy DATE: November 07, 2023 TIME: 12:32 PM CONTACT #: [phone] [facility] 10-24-2023 Note Patient Outreach (AM [facility] [place]) FLORECITA HEALY ([id number]) 1940 F Date Time Provider Department 10/24/23 [facility]INDER [facility]OUCHER [facility] During your visit today, we recorded the following information about you: Bhupinder Boucher RN 10/24/2023 11:45 AM Signed [facility] Telephonic Outreach Provider Action/FYI #2 attempt to contact patient. Contacted for: Routine Telephonic Outreach Contact made with patient: No, left message. Bhupinder Boucher RN October 24, 2023 11:45 AM Allergies As of Date: 10/24/2023 Noted Allergy Reaction ANIMAL DANDER 08/02/2016 5 - Intolerance DARVOCET A500 (PROPOXYPHENE N-SELENE*06/03/2012 1 - Mental Status Change DUST 08/02/2016 14 - Other: See Comments GRASS POLLEN 08/02/2016 14 - Other: See Comments MOLD 08/02/2016 14 - Other: See Comments SOMA (CARISOPRODOL) 06/03/2012 7 - Swelling 9 - Itching TREES 08/02/2016 14 - Other: See Comments Date Reviewed: 09/25/2023 Reviewed by: Nevin Fajardo APRN.GRADUATE TEACHER EDUCATION - Fully Assessed Reason for Visit: CDM [Other] Cmt: Telephonic Outreach Prescriptions as of 10/24/2023 - lisinopril (ZESTRIL) 40 mg tablet Take 1 tablet by mouth once daily. - baclofen 10 mg tablet Take 1 tablet by mouth twice daily as needed. - amLODIPine (NORVASC) 10 mg tablet Take 1 tablet by mouth once daily. - metoprolol succinate ER (TOPROL XL) 50 mg 24 hr tablet Take 0.5 tablets by mouth once daily. - Biotin 10 mg tab Take 1 tablet by mouth once daily. - betamethasone dipropionate, augmented (DIPROLENE) 0.05 % cream Apply to affected area once daily as needed. - cyanocobalamin (VITAMIN B-12) 100 mcg tab Take 100 mcg by mouth once daily. - levothyroxine (SYNTHROID) 25 mcg tablet Take 1 tablet by mouth once daily. Except 2 tabs by mouth every Sunday and Sunday - acetaminophen (TYLENOL) 325 mg tablet Take 2 tablets by mouth every 4 hours as needed for pain. - pregabalin (LYRICA) 75 mg capsule Take 75 mg by mouth daily at bedtime. - cholecalciferol, vitamin D3, (VITAMIN D3 ORAL) Take 2,000 Units by mouth once daily. - alpha tocopheryl acetate (VITAMIN E) 400 unit capsule Take 400 Units by mouth once daily. - diphenhydrAMINE-Acetaminophen 25-500 mg tab Take 2 tablets by mouth at bedtime as needed. Problem List As Of Date 10/24/2023 Noted Resolved Chronic pain [G89.29] 06/03/2012 07/24/2019 Primary hypertension [I10] 06/03/2012 Hyperlipidemia [E78.5] 06/03/2012 History of Jovana thyroiditis [Z86.39] 06/03/2012 Osteoporosis [M81.0] 07/08/2012 08/09/2012 Lung nodules [R91.8] 07/08/2012 Psoriasis [L40.8] 10/18/2012 Eczematous dermatitis [L30.9] 10/18/2012 02/28/2017 Xerosis cutis [L85.3] 10/18/2012 02/28/2017 Pruritus [L29.9] 10/18/2012 02/28/2017 Excoriation [T14.8XXA] 10/18/2012 02/28/2017 Lichenification and lichen simplex chronicus [L*10/18/2012 Malignant neoplasm of upper-outer quadrant of l*05/28/2015 Low back pain [M54.50] 08/06/2015 07/24/2019 Pain in right hip [M25.551] 08/06/2015 07/24/2019 Thoracic back pain [M54.6] 08/06/2015 02/28/2017 Cervicalgia [M54.2] 08/06/2015 02/28/2017 Bilateral ankle pain [M25.571, M25.572] 10/01/2015 02/28/2017 Pain in left shoulder [M25.512] 10/29/2015 02/28/2017 Pain of left thumb [M79.645] 05/05/2016 02/28/2017 Chronic midline low back pain without sciatica *08/23/2016 02/28/2017 Colon cancer screening [Z12.11] 12/07/2016 12/07/2016 Trigger finger, acquired [M65.30] 09/26/2017 07/24/2019 Chronic pain syndrome [G89.4] 09/27/2017 11/28/2018 Acute pain of right shoulder [M25.511] 11/29/2017 11/28/2018 Low back pain radiating to right lower extremit*11/29/2017 07/24/2019 Cervicalgia [M54.2] 03/26/2018 Chronic midline low back pain without sciatica *03/26/2018 07/24/2019 Facet arthritis of lumbar region [M47.816] 11/06/2018 Stage 3a chronic kidney disease (HCC) [N18.31] 01/21/2019 DDD (degenerative disc disease), lumbar [M51.36]02/21/2019 Spinal stenosis of cervical region [M48.02] 04/29/2019 Spinal stenosis of lumbar region with neurogeni*04/29/2019 Chronic pain syndrome [G89.4] 08/25/2019 Pain in left hip [M25.552] 08/25/2019 Pain in right hip [M25.551] 08/25/2019 Left shoulder pain [M25.512] 02/19/2020 Right shoulder pain [M25.511] 02/19/2020 Arthritis of both glenohumeral joints [M19.011,*12/03/2019 Bleeding internal hemorrhoids [K64.8] 06/14/2022 History of colonic polyps [Z86.010] 06/14/2022 Problem [EVA6747] 06/14/2022 Ectatic aorta (HCC) [I77.819] 06/14/2022 Fatty liver [K76.0] 06/14/2022 Sepsis (HCC) [A41.9] 11/05/2022 11/11/2022 Cellulitis of right lower leg [L03.115] 11/06/2022 Urinary retention [R33.9] 11/06/2022 Nausea AND vomiting [R11.2] 11/06/2022 11/11/2022 Diarrhea [R19.7] 11/06/2022 11/11/2022 Postoperative hypothyroidism [E89.0] 11/06/2022 Vaginitis due to Callie [B37.31] 11/11/2022 Nicotine use disorder, F17.2 [F17.200] 11/14/2022 Venous insuffic (more content not included)... [facility] 10-24-2023 Note HNO ID: [id number] Author: Bhupinder Boucher RN Service: ? Author Type: Registered Nurse Type: Progress Notes Filed: 10/24/2023 11:45 AM Note Text: [facility] Telephonic Outreach Provider Action/FYI #2 attempt to contact patient. Contacted for: Routine Telephonic Outreach Contact made with patient: No, left message. Bhupinder Boucher RN October 24, 2023 11:45 AM [facility] 10-24-2023 History of Presen t illness Narrative [facility] Telephonic Outreach Provider Action/FYI #2 attempt to contact patient. Contacted for: Routine Telephonic Outreach Contact made with patient: No, left message. Bhupinder Boucher RN October 24, 2023 11:45 AM documented in this encounter [facility] 10-23-2023 Note HNO ID: [id number] Author: Bhupinder Boucher, RN Service: ? Author Type: Registered Nurse Type: Progress Notes Filed: 10/23/2023 1:33 PM Note Text: [facility] Telephonic Outreach Provider Action/FYI #1 attempt to contact patient. Contacted for: Routine Telephonic Outreach Contact made with patient: No, left message. Bhupinder Boucher RN October 23, 2023 1:32 PM [facility] 10-23-2023 Note Patient Outreach (AM [facility]) FLORECITA HEALY ([id number]) 1940 F Date Time Provider Department 10/23/23 BHUPINDER BOUCHER [facility] [place] During your visit today, we recorded the following information about you: Bhupinder Boucher RN 10/23/2023 1:33 PM Signed CD Telephonic Outreach Provider Action/FYI #1 attempt to contact patient. Contacted for: Routine Telephonic Outreach Contact made with patient: No, left message. Bhupinder Boucher RN October 23, 2023 1:32 PM Allergies As of Date: 10/23/2023 Noted Allergy Reaction ANIMAL DANDER 08/02/2016 5 - Intolerance DARVOCET A500 (PROPOXYPHENE N-SELENE*06/03/2012 1 - Mental Status Change DUST 08/02/2016 14 - Other: See Comments GRASS POLLEN 08/02/2016 14 - Other: See Comments MOLD 08/02/2016 14 - Other: See Comments SOMA (CARISOPRODOL) 06/03/2012 7 - Swelling 9 - Itching TREES 08/02/2016 14 - Other: See Comments Date Reviewed: 09/25/2023 Reviewed by: Nevin Fajardo APRN.GRADUATE TEACHER EDUCATION - Fully Assessed Reason for Visit: CDM [Other] Cmt: Telephonic Outreach Prescriptions as of 10/23/2023 - lisinopril (ZESTRIL) 40 mg tablet Take 1 tablet by mouth once daily. - baclofen 10 mg tablet Take 1 tablet by mouth twice daily as needed. - amLODIPine (NORVASC) 10 mg tablet Take 1 tablet by mouth once daily. - metoprolol succinate ER (TOPROL XL) 50 mg 24 hr tablet Take 0.5 tablets by mouth once daily. - Biotin 10 mg tab Take 1 tablet by mouth once daily. - betamethasone dipropionate, augmented (DIPROLENE) 0.05 % cream Apply to affected area once daily as needed. - cyanocobalamin (VITAMIN B-12) 100 mcg tab Take 100 mcg by mouth once daily. - levothyroxine (SYNTHROID) 25 mcg tablet Take 1 tablet by mouth once daily. Except 2 tabs by mouth every Sunday and Sunday - acetaminophen (TYLENOL) 325 mg tablet Take 2 tablets by mouth every 4 hours as needed for pain. - pregabalin (LYRICA) 75 mg capsule Take 75 mg by mouth daily at bedtime. - cholecalciferol, vitamin D3, (VITAMIN D3 ORAL) Take 2,000 Units by mouth once daily. - alpha tocopheryl acetate (VITAMIN E) 400 unit capsule Take 400 Units by mouth once daily. - diphenhydrAMINE-Acetaminophen 25-500 mg tab Take 2 tablets by mouth at bedtime as needed. Problem List As Of Date 10/23/2023 Noted Resolved Chronic pain [G89.29] 06/03/2012 07/24/2019 Primary hypertension [I10] 06/03/2012 Hyperlipidemia [E78.5] 06/03/2012 History of Jovana thyroiditis [Z86.39] 06/03/2012 Osteoporosis [M81.0] 07/08/2012 08/09/2012 Lung nodules [R91.8] 07/08/2012 Psoriasis [L40.8] 10/18/2012 Eczematous dermatitis [L30.9] 10/18/2012 02/28/2017 Xerosis cutis [L85.3] 10/18/2012 02/28/2017 Pruritus [L29.9] 10/18/2012 02/28/2017 Excoriation [T14.8XXA] 10/18/2012 02/28/2017 Lichenification and lichen simplex chronicus [L*10/18/2012 Malignant neoplasm of upper-outer quadrant of l*05/28/2015 Low back pain [M54.50] 08/06/2015 07/24/2019 Pain in right hip [M25.551] 08/06/2015 07/24/2019 Thoracic back pain [M54.6] 08/06/2015 02/28/2017 Cervicalgia [M54.2] 08/06/2015 02/28/2017 Bilateral ankle pain [M25.571, M25.572] 10/01/2015 02/28/2017 Pain in left shoulder [M25.512] 10/29/2015 02/28/2017 Pain of left thumb [M79.645] 05/05/2016 02/28/2017 Chronic midline low back pain without sciatica *08/23/2016 02/28/2017 Colon cancer screening [Z12.11] 12/07/2016 12/07/2016 Trigger finger, acquired [M65.30] 09/26/2017 07/24/2019 Chronic pain syndrome [G89.4] 09/27/2017 11/28/2018 Acute pain of right shoulder [M25.511] 11/29/2017 11/28/2018 Low back pain radiating to right lower extremit*11/29/2017 07/24/2019 Cervicalgia [M54.2] 03/26/2018 Chronic midline low back pain without sciatica *03/26/2018 07/24/2019 Facet arthritis of lumbar region [M47.816] 11/06/2018 Stage 3a chronic kidney disease (HCC) [N18.31] 01/21/2019 DDD (degenerative disc disease), lumbar [M51.36]02/21/2019 Spinal stenosis of cervical region [M48.02] 04/29/2019 Spinal stenosis of lumbar region with neurogeni*04/29/2019 Chronic pain syndrome [G89.4] 08/25/2019 Pain in left hip [M25.552] 08/25/2019 Pain in right hip [M25.551] 08/25/2019 Left shoulder pain [M25.512] 02/19/2020 Right shoulder pain [M25.511] 02/19/2020 Arthritis of both glenohumeral joints [M19.011,*12/03/2019 Bleeding internal hemorrhoids [K64.8] 06/14/2022 History of colonic polyps [Z86.010] 06/14/2022 Problem [BPN1672] 06/14/2022 Ectatic aorta (HCC) [I77.819] 06/14/2022 Fatty liver [K76.0] 06/14/2022 Sepsis (HCC) [A41.9] 11/05/2022 11/11/2022 Cellulitis of right lower leg [L03.115] 11/06/2022 Urinary retention [R33.9] 11/06/2022 Nausea AND vomiting [R11.2] 11/06/2022 11/11/2022 Diarrhea [R19.7] 11/06/2022 11/11/2022 Postoperative hypothyroidism [E89.0] 11/06/2022 Vaginitis due to Callie [B37.31] 11/11/2022 Nicotine use disorder, F17.2 [F17.200] 11/14/2022 Venous insufficie (more content not included)... [facility] 10-23-2023 History of Presen t illness Narrative [facility] Telephonic Outreach Provider Action/FYI #1 attempt to contact patient. Contacted for: Routine Telephonic Outreach Contact made with patient: No, left message. Bhupinder Boucher RN October 23, 2023 1:32 PM documented in this encounter [facility] 09-25-2023 Note HNO ID: [id number] Author: Nevin Fajardo APRN.GRADUATE TEACHER EDUCATION Service: ? Author Type: Nurse Practitioner Type: Progress Notes Filed: 09/25/2023 1:15 PM Note Text: Chief Complaint Patient presents with: Established Patient HPI: Florecita Healy is a 82 year old female who presents here today for follow up breast cancer. Per Dr. Slaughter's previous note: H/o found to have an area of architectural distortion located in the left breast upper outer aspect at middle depth on screening mammogram in March 2015. Ultrasound demonstrated a mass with spiculated margin in the left breast at 2:00 posterior depth. There was posterior acoustic shadowing. Mammographic imaging revealed to it to measure approximately 1 cm. Left-sided partial mastectomy with re-xcision of medial margin and sentinel lymph node biopsy on 05/11/2015. The pathology specimen demonstrated a 1.5 cm single focus of invasive carcinoma. Margins were negative. The margin on the main specimen was 6 mm and the additional medial margin was up to a centimeter in thickness. Grade was 2. No angiolymphatic invasion was identified. DCIS comprised 10% of the tumor volume. 2 lymph nodes were recovered both were negative for disease. Estrogen receptors were quantified at greater than 95%, strong. Progesterone receptor 60%, moderate. HER-2 was 2+ on IHC but was negative by FISH testing. Completed RT and then started anastrozole first week August 2015. Changed to tamoxifen d/t body aches/pains on arimidex. 2015. Stopped arimidex 06/2016 d/t joint pain. Began aromasin 07/2016. Stopped aromasin early January 2017 d/t joint pain and cramping. Currently therapy:Observation No new concerns today. Appetite: Good. Wt. up. Energy level: It's good. Denies fevers or recent illness. Resp:denies cough or sob, occ. 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 Tim Heme:denies bleeding The ROS is otherwise negative. Past medical history, appointments, medications, allergies reviewed. No changes. EXAM: BP 146/84 Pulse 80 Temp 36.2 ?C (97.2 ?F) (Temporal) Ht 165.1 cm (5' 5 ) Wt 73 kg (161 lb) BMI 26.79 kg/m? APPEARANCE Well appearing, alert, in no acute distress, well-hydrated, well nourished. HEART RRR with normal S1 and S2, no murmurs LUNG clear to auscultation BREAST FEMALE no mass/nodule b/l, L scar lateral/radiation changes LYMPH NODES No cervical lymphadenopathy, No supraclavicular lymphadenopathy, and No axillary lymphadenopathy. ABDOMEN bowel sounds normoactive, soft, non-tender EXTREMITIES chronic stasis changes/chronic edema BLE NEURO Awake, alert and oriented x 3, Normal gait, and No involuntary motions. SKIN Skin color, texture, turgor normal, no suspicious rashes or lesions ASSESSMENT/PLAN: 1. 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 Oncotype test:Recurrence score 15 indicating 10% 10 yr risk. Did not recommend adjuvant chemotherapy based on Oncotype testing. - No concerning findings on exam in regards to breast cancer. - Pt. did not tolerate 2 AI's or tamoxifen. Feels much better after stopping aromasin. Declined any further therapy. - Reviewed mammogram with pt. - Follow up with pain mgmt./PCP/DERM as scheduled. - Mammogram due end of April 2024. - Follow up after above. - Pt. aware to call office with any questions/concerns. The patient indicates understanding of these issues and agrees with the plan. All documentation from previous visit of 03/22/23-Dr. Slaughter/myself was copied and pasted, documentation has been reviewed and edited as necessary for today's visit. Nevin Fajardo APRN.[facility] 09-25-2023 History of Presen t illness Narrative Chief Complaint Patient presents with: Established Patient HPI: Florecita Healy is a 82 year old female who presents here today for follow up breast cancer. Per Dr. Slaughter's previous note: H/o found to have an area of architectural distortion located in the left breast upper outer aspect at middle depth on screening mammogram in March 2015. Ultrasound demonstrated a mass with spiculated margin in the left breast at 2:00 posterior depth. There was posterior acoustic shadowing. Mammographic imaging revealed to it to measure approximately 1 cm. Left-sided partial mastectomy with re-xcision of medial margin and sentinel lymph node biopsy on 05/11/2015. The pathology specimen demonstrated a 1.5 cm single focus of invasive carcinoma. Margins were negative. The margin on the main specimen was 6 mm and the additional medial margin was up to a centimeter in thickness. Grade was 2. No angiolymphatic invasion was identified. DCIS comprised 10% of the tumor volume. 2 lymph nodes were recovered both were negative for disease. Estrogen receptors were quantified at greater than 95%, strong. Progesterone receptor 60%, moderate. HER-2 was 2+ on IHC but was negative by FISH testing. Completed RT and then started anastrozole first week August 2015. Changed to tamoxifen d/t body aches/pains on arimidex. 2015. Stopped arimidex 06/2016 d/t joint pain. Began aromasin 07/2016. Stopped aromasin early January 2017 d/t joint pain and cramping. Currently therapy:Observation No new concerns today. Appetite: Good. Wt. up. Energy level: It's good. Denies fevers or recent illness. Resp:denies cough or sob, occ. 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 Tim Heme:denies bleeding The ROS is otherwise negative. Past medical history, appointments, medications, allergies reviewed. No changes. EXAM: BP 146/84 Pulse 80 Temp 36.2 C (97.2 F) (Temporal) Ht 165.1 cm (5' 5 ) Wt 73 kg (161 lb) BMI 26.79 kg/m APPEARANCE Well appearing, alert, in no acute distress, well-hydrated, well nourished. HEART RRR with normal S1 and S2, no murmurs LUNG clear to auscultation BREAST FEMALE no mass/nodule b/l, L scar lateral/radiation changes LYMPH NODES No cervical lymphadenopathy, No supraclavicular lymphadenopathy, and No axillary lymphadenopathy. ABDOMEN bowel sounds normoactive, soft, non-tender EXTREMITIES chronic stasis changes/chronic edema BLE NEURO Awake, alert and oriented x 3, Normal gait, and No involuntary motions. SKIN Skin color, texture, turgor normal, no suspicious rashes or lesions ASSESSMENT/PLAN: 1. 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 Oncotype test:Recurrence score 15 indicating 10% 10 yr risk. Did not recommend adjuvant chemotherapy based on Oncotype testing. - No concerning findings on exam in regards to breast cancer. - Pt. did not tolerate 2 AI's or tamoxifen. Feels much better after stopping aromasin. Declined any further therapy. - Reviewed mammogram with pt. - Follow up with pain mgmt./PCP/DERM as scheduled. - Mammogram due end of April 2024. - Follow up after above. - Pt. aware to call office with any questions/concerns. The patient indicates understanding of these issues and agrees with the plan. All documentation from previous visit of 03/22/23-Dr. Slaughter/myself was copied and pasted, documentation has been reviewed and edited as necessary for today's visit. Nevin Fajardo APRN.GRADUATE TEACHER EDUCATION documented in this encounter [facility] 09-24-2023 Note Patient Outreach (AM [facility]) FLORECITA HEALY ([id number]) 1940 F Date Time Provider Department 09/24/23 BHUPINDER BOUCHERJairon During your visit today, we recorded the following information about you: Bhupinder Boucher RN 09/24/2023 11:19 AM Signed [facility] Telephonic Outreach Provider Action/FYI #2 attempt to contact patient. Contacted for: Routine Telephonic Outreach Contact made with patient: No, left message. Bhupinder Boucher RN September 24, 2023 11:19 AM Allergies As of Date: 09/24/2023 Noted Allergy Reaction ANIMAL DANDER 08/02/2016 5 - Intolerance DARVOCET A500 (PROPOXYPHENE N-SELENE*06/03/2012 1 - Mental Status Change DUST 08/02/2016 14 - Other: See Comments GRASS POLLEN 08/02/2016 14 - Other: See Comments MOLD 08/02/2016 14 - Other: See Comments SOMA (CARISOPRODOL) 06/03/2012 7 - Swelling 9 - Itching TREES 08/02/2016 14 - Other: See Comments Date Reviewed: 08/14/2023 Reviewed by: Angela Kaye RN - Fully Assessed Reason for Visit: CDM [Other] Cmt: Telephonic Outreach Prescriptions as of 10/18/2023 - lisinopril (ZESTRIL) 40 mg tablet Take 1 tablet by mouth once daily. - baclofen 10 mg tablet Take 1 tablet by mouth twice daily as needed. - amLODIPine (NORVASC) 10 mg tablet Take 1 tablet by mouth once daily. - metoprolol succinate ER (TOPROL XL) 50 mg 24 hr tablet Take 0.5 tablets by mouth once daily. - Biotin 10 mg tab Take 1 tablet by mouth once daily. - betamethasone dipropionate, augmented (DIPROLENE) 0.05 % cream Apply to affected area once daily as needed. - cyanocobalamin (VITAMIN B-12) 100 mcg tab Take 100 mcg by mouth once daily. - levothyroxine (SYNTHROID) 25 mcg tablet Take 1 tablet by mouth once daily. Except 2 tabs by mouth every Sunday and Sunday - acetaminophen (TYLENOL) 325 mg tablet Take 2 tablets by mouth every 4 hours as needed for pain. - pregabalin (LYRICA) 75 mg capsule Take 75 mg by mouth daily at bedtime. - cholecalciferol, vitamin D3, (VITAMIN D3 ORAL) Take 2,000 Units by mouth once daily. - alpha tocopheryl acetate (VITAMIN E) 400 unit capsule Take 400 Units by mouth once daily. - diphenhydrAMINE-Acetaminophen 25-500 mg tab Take 2 tablets by mouth at bedtime as needed. Problem List As Of Date 09/24/2023 Noted Resolved Chronic pain [G89.29] 06/03/2012 07/24/2019 Primary hypertension [I10] 06/03/2012 Hyperlipidemia [E78.5] 06/03/2012 History of Jovana thyroiditis [Z86.39] 06/03/2012 Osteoporosis [M81.0] 07/08/2012 08/09/2012 Lung nodules [R91.8] 07/08/2012 Psoriasis [L40.8] 10/18/2012 Eczematous dermatitis [L30.9] 10/18/2012 02/28/2017 Xerosis cutis [L85.3] 10/18/2012 02/28/2017 Pruritus [L29.9] 10/18/2012 02/28/2017 Excoriation [T14.8XXA] 10/18/2012 02/28/2017 Lichenification and lichen simplex chronicus [L*10/18/2012 Malignant neoplasm of upper-outer quadrant of l*05/28/2015 Low back pain [M54.50] 08/06/2015 07/24/2019 Pain in right hip [M25.551] 08/06/2015 07/24/2019 Thoracic back pain [M54.6] 08/06/2015 02/28/2017 Cervicalgia [M54.2] 08/06/2015 02/28/2017 Bilateral ankle pain [M25.571, M25.572] 10/01/2015 02/28/2017 Pain in left shoulder [M25.512] 10/29/2015 02/28/2017 Pain of left thumb [M79.645] 05/05/2016 02/28/2017 Chronic midline low back pain without sciatica *08/23/2016 02/28/2017 Colon cancer screening [Z12.11] 12/07/2016 12/07/2016 Trigger finger, acquired [M65.30] 09/26/2017 07/24/2019 Chronic pain syndrome [G89.4] 09/27/2017 11/28/2018 Acute pain of right shoulder [M25.511] 11/29/2017 11/28/2018 Low back pain radiating to right lower extremit*11/29/2017 07/24/2019 Cervicalgia [M54.2] 03/26/2018 Chronic midline low back pain without sciatica *03/26/2018 07/24/2019 Facet arthritis of lumbar region [M47.816] 11/06/2018 Stage 3a chronic kidney disease (HCC) [N18.31] 01/21/2019 DDD (degenerative disc disease), lumbar [M51.36]02/21/2019 Spinal stenosis of cervical region [M48.02] 04/29/2019 Spinal stenosis of lumbar region with neurogeni*04/29/2019 Chronic pain syndrome [G89.4] 08/25/2019 Pain in left hip [M25.552] 08/25/2019 Pain in right hip [M25.551] 08/25/2019 Left shoulder pain [M25.512] 02/19/2020 Right shoulder pain [M25.511] 02/19/2020 Arthritis of both glenohumeral joints [M19.011,*12/03/2019 Bleeding internal hemorrhoids [K64.8] 06/14/2022 History of colonic polyps [Z86.010] 06/14/2022 Problem [[id number]] 06/14/2022 Ectatic aorta (HCC) [I77.819] 06/14/2022 Fatty liver [K76.0] 06/14/2022 Sepsis (HCC) [A41.9] 11/05/2022 11/11/2022 Cellulitis of right lower leg [L03.115] 11/06/2022 Urinary retention [R33.9] 11/06/2022 Nausea AND vomiting [R11.2] 11/06/2022 11/11/2022 Diarrhea [R19.7] 11/06/2022 11/11/2022 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 [facility] 09-24-2023 Note HNO ID: [id number] Author: Bhupinder Boucher RN Service: ? Author Type: Registered Nurse Type: Progress Notes Filed: 09/24/2023 11:19 AM Note Text: CDM Telephonic Outreach Provider Action/FYI #2 attempt to contact patient. Contacted for: Routine Telephonic Outreach Contact made with patient: No, left message. Bhupinder Boucher RN September 24, 2023 11:19 AM [facility] 09-24-2023 History of Presen t illness Narrative CDM Telephonic Outreach Provider Action/FYI #2 attempt to contact patient. Contacted for: Routine Telephonic Outreach Contact made with patient: No, left message. Bhupinder Boucher RN September 24, 2023 11:19 AM documented in this encounter [facility] 09-21-2023 Note HNO ID: [id number] Author: Bhupinder Boucher RN Service: ? Author Type: Registered Nurse Type: Progress Notes Filed: 09/21/2023 2:25 PM Note Text: CDM Telephonic Outreach Provider Action/FYI #1 attempt to contact patient. Contacted for: Routine Telephonic Outreach Contact made with patient: No, left message. Bhupinder Boucher RN September 21, 2023 2:25 PM [facility] 09-21-2023 Note Patient Outreach ([facility]) FLORECITA HEALY ([id number]) 1940 F Date Time Provider Department 09/21/23 BHUPINDER BOUCHER [facility] During your visit today, we recorded the following information about you: Bhupinder Boucher RN 09/21/2023 2:25 PM Signed [facility] Telephonic Outreach Provider Action/FYI #1 attempt to contact patient. Contacted for: Routine Telephonic Outreach Contact made with patient: No, left message. Bhupinder Boucher RN September 21, 2023 2:25 PM Allergies As of Date: 09/21/2023 Noted Allergy Reaction ANIMAL DANDER 08/02/2016 5 - Intolerance DARVOCET A500 (PROPOXYPHENE N-SELENE*06/03/2012 1 - Mental Status Change DUST 08/02/2016 14 - Other: See Comments GRASS POLLEN 08/02/2016 14 - Other: See Comments MOLD 08/02/2016 14 - Other: See Comments SOMA (CARISOPRODOL) 06/03/2012 7 - Swelling 9 - Itching TREES 08/02/2016 14 - Other: See Comments Date Reviewed: 08/14/2023 Reviewed by: Angela Kaye RN - Fully Assessed Reason for Visit: CDM [Other] Cmt: Telephonic Outreach Prescriptions as of 09/21/2023 - lisinopril (ZESTRIL) 40 mg tablet Take 1 tablet by mouth once daily. - baclofen 10 mg tablet Take 1 tablet by mouth twice daily as needed. - amLODIPine (NORVASC) 10 mg tablet Take 1 tablet by mouth once daily. - metoprolol succinate ER (TOPROL XL) 50 mg 24 hr tablet Take 0.5 tablets by mouth once daily. - Biotin 10 mg tab Take 1 tablet by mouth once daily. - betamethasone dipropionate, augmented (DIPROLENE) 0.05 % cream - cyanocobalamin (VITAMIN B-12) 100 mcg tab Take 100 mcg by mouth once daily. - levothyroxine (SYNTHROID) 25 mcg tablet Take 1 tablet by mouth once daily. Except 2 tabs by mouth every Sunday and Sunday - acetaminophen (TYLENOL) 325 mg tablet Take 2 tablets by mouth every 4 hours as needed for pain. - pregabalin (LYRICA) 75 mg capsule Take 75 mg by mouth daily at bedtime. - cholecalciferol, vitamin D3, (VITAMIN D3 ORAL) Take 2,000 Units by mouth once daily. - alpha tocopheryl acetate (VITAMIN E) 400 unit capsule Take 400 Units by mouth once daily. - diphenhydrAMINE-Acetaminophen 25-500 mg tab Take 2 tablets by mouth at bedtime as needed. Problem List As Of Date 09/21/2023 Noted Resolved Chronic pain [G89.29] 06/03/2012 07/24/2019 Primary hypertension [I10] 06/03/2012 Hyperlipidemia [E78.5] 06/03/2012 History of Jovana thyroiditis [Z86.39] 06/03/2012 Osteoporosis [M81.0] 07/08/2012 08/09/2012 Lung nodules [R91.8] 07/08/2012 Psoriasis [L40.8] 10/18/2012 Eczematous dermatitis [L30.9] 10/18/2012 02/28/2017 Xerosis cutis [L85.3] 10/18/2012 02/28/2017 Pruritus [L29.9] 10/18/2012 02/28/2017 Excoriation [T14.8XXA] 10/18/2012 02/28/2017 Lichenification and lichen simplex chronicus [L*10/18/2012 Malignant neoplasm of upper-outer quadrant of l*05/28/2015 Low back pain [M54.50] 08/06/2015 07/24/2019 Pain in right hip [M25.551] 08/06/2015 07/24/2019 Thoracic back pain [M54.6] 08/06/2015 02/28/2017 Cervicalgia [M54.2] 08/06/2015 02/28/2017 Bilateral ankle pain [M25.571, M25.572] 10/01/2015 02/28/2017 Pain in left shoulder [M25.512] 10/29/2015 02/28/2017 Pain of left thumb [M79.645] 05/05/2016 02/28/2017 Chronic midline low back pain without sciatica *08/23/2016 02/28/2017 Colon cancer screening [Z12.11] 12/07/2016 12/07/2016 Trigger finger, acquired [M65.30] 09/26/2017 07/24/2019 Chronic pain syndrome [G89.4] 09/27/2017 11/28/2018 Acute pain of right shoulder [M25.511] 11/29/2017 11/28/2018 Low back pain radiating to right lower extremit*11/29/2017 07/24/2019 Cervicalgia [M54.2] 03/26/2018 Chronic midline low back pain without sciatica *03/26/2018 07/24/2019 Facet arthritis of lumbar region [M47.816] 11/06/2018 Stage 3a chronic kidney disease (HCC) [N18.31] 01/21/2019 DDD (degenerative disc disease), lumbar [M51.36]02/21/2019 Spinal stenosis of cervical region [M48.02] 04/29/2019 Spinal stenosis of lumbar region with neurogeni*04/29/2019 Chronic pain syndrome [G89.4] 08/25/2019 Pain in left hip [M25.552] 08/25/2019 Pain in right hip [M25.551] 08/25/2019 Left shoulder pain [M25.512] 02/19/2020 Right shoulder pain [M25.511] 02/19/2020 Arthritis of both glenohumeral joints [M19.011,*12/03/2019 Bleeding internal hemorrhoids [K64.8] 06/14/2022 History of colonic polyps [Z86.010] 06/14/2022 Problem [[id number]] 06/14/2022 Ectatic aorta (HCC) [I77.819] 06/14/2022 Fatty liver [K76.0] 06/14/2022 Sepsis (HCC) [A41.9] 11/05/2022 11/11/2022 Cellulitis of right lower leg [L03.115] 11/06/2022 Urinary retention [R33.9] 11/06/2022 Nausea AND vomiting [R11.2] 11/06/2022 11/11/2022 Diarrhea [R19.7] 11/06/2022 11/11/2022 Postoperative hypothyroidism [E89.0] 11/06/2022 Vaginitis due to Callie [B37.31] 11/11/2022 Nicotine use disorder, F17.2 [F17.200] 11/14/2022 Venous insufficiency [I87.2] 03/02/2023 (more content not included)... [facility] 08-25-2023 Note HNO ID: [id number] Author: Note, Interface Service: ? Author Type: ? Type: Progress Notes Filed: 08/25/2023 2:57 AM Note Text: Epic Scheduled Downtime: 08/25/2023 1:00:00 AM to 08/25/2023 1:28:[address] [facility] 08-24-2023 Note HNO ID: [id number] Author: Bhupinder Boucher RN Service: ? Author Type: Registered Nurse Type: Progress Notes Filed: 08/24/2023 1:41 PM Note Text: CDM Telephonic Outreach Provider Action/FYI Contacted for: Routine Telephonic Outreach Contact made with patient: Yes Patient identified by name and date of . Discussed care with patient Are you experiencing any new or worsening symptoms you need to talk about today? No Disease Specific Do you check your blood pressure at home? 151/84 before blood pressure medication Do you have new or worsening shortness of breath with activity? No Do you feel like you are dehydrated for any reason, including not being able to eat or drink normally, or having less urine/much darker urine than normal for you? No Do you check your daily weight at home? Yes, Have you noticed a sudden gain in weight greater than three pounds in a day or three pounds in a week? No Based on residential program manager, the following disposition is advised: No symptoms or symptoms present, not severe. Routed to: No Action Needed LINDA Education Provided this Outreach: No Bhupinder Boucher RN August 24, 2023 1:37 PM [facility] 08-24-2023 Note Patient Outreach ([facility]) FLORECITA HEALY ([id number]) 1940 F Date Time Provider Department 08/24/23 BHUPINDER BOUCHER [facility] During your visit today, we recorded the following information about you: Bhupinder Boucher RN 08/24/2023 1:41 PM Signed [facility] Telephonic Outreach Provider Action/FYI Contacted for: Routine Telephonic Outreach Contact made with patient: Yes Patient identified by name and date of . Discussed care with patient Are you experiencing any new or worsening symptoms you need to talk about today? No Disease Specific Do you check your blood pressure at home? 151/84 before blood pressure medication Do you have new or worsening shortness of breath with activity? No Do you feel like you are dehydrated for any reason, including not being able to eat or drink normally, or having less urine/much darker urine than normal for you? No Do you check your daily weight at home? Yes, Have you noticed a sudden gain in weight greater than three pounds in a day or three pounds in a week? No Based on residential program manager, the following disposition is advised: No symptoms or symptoms present, not severe. Routed to: No Action Needed LINDA Education Provided this Outreach: No Bhupinder Boucher RN August 24, 2023 1:37 PM Allergies As of Date: 08/24/2023 Noted Allergy Reaction ANIMAL DANDER 08/02/2016 5 - Intolerance DARVOCET A500 (PROPOXYPHENE N-SELENE*06/03/2012 1 - Mental Status Change DUST 08/02/2016 14 - Other: See Comments GRASS POLLEN 08/02/2016 14 - Other: See Comments MOLD 08/02/2016 14 - Other: See Comments SOMA (CARISOPRODOL) 06/03/2012 7 - Swelling 9 - Itching TREES 08/02/2016 14 - Other: See Comments Date Reviewed: 08/14/2023 Reviewed by: Angela Kaye RN - Fully Assessed Reason for Visit: CDM [Other] Cmt: Telephonic Outreach Prescriptions as of 08/24/2023 - acetaminophen (TYLENOL) 325 mg tablet Take 2 tablets by mouth every 4 hours as needed for pain. - alpha tocopheryl acetate (VITAMIN E) 400 unit capsule Take 400 Units by mouth once daily. - amLODIPine (NORVASC) 10 mg tablet Take 1 tablet by mouth once daily. - baclofen 10 mg tablet Take 1 tablet by mouth twice daily as needed. - betamethasone dipropionate, augmented (DIPROLENE) 0.05 % cream - Biotin 10 mg tab Take 1 tablet by mouth once daily. - cholecalciferol, vitamin D3, (VITAMIN D3 ORAL) Take 2,000 Units by mouth once daily. - cyanocobalamin (VITAMIN B-12) 100 mcg tab Take 100 mcg by mouth once daily. - diphenhydrAMINE-Acetaminophen 25-500 mg tab Take 2 tablets by mouth at bedtime as needed. - levothyroxine (SYNTHROID) 25 mcg tablet Take 1 tablet by mouth once daily. Except 2 tabs by mouth every Sunday and Sunday - lisinopril (ZESTRIL) 40 mg tablet Take 1 tablet by mouth once daily. - metoprolol succinate ER (TOPROL XL) 50 mg 24 hr tablet Take 0.5 tablets by mouth once daily. - pregabalin (LYRICA) 75 mg capsule Take 75 mg by mouth daily at bedtime. Problem List As Of Date 08/24/2023 Noted Resolved Chronic pain [G89.29] 06/03/2012 07/24/2019 Primary hypertension [I10] 06/03/2012 Hyperlipidemia [E78.5] 06/03/2012 History of Jovana thyroiditis [Z86.39] 06/03/2012 Osteoporosis [M81.0] 07/08/2012 08/09/2012 Lung nodules [R91.8] 07/08/2012 Psoriasis [L40.8] 10/18/2012 Eczematous dermatitis [L30.9] 10/18/2012 02/28/2017 Xerosis cutis [L85.3] 10/18/2012 02/28/2017 Pruritus [L29.9] 10/18/2012 02/28/2017 Excoriation [T14.8XXA] 10/18/2012 02/28/2017 Lichenification and lichen simplex chronicus [L*10/18/2012 Malignant neoplasm of upper-outer quadrant of l*05/28/2015 Low back pain [M54.50] 08/06/2015 07/24/2019 Pain in right hip [M25.551] 08/06/2015 07/24/2019 Thoracic back pain [M54.6] 08/06/2015 02/28/2017 Cervicalgia [M54.2] 08/06/2015 02/28/2017 Bilateral ankle pain [M25.571, M25.572] 10/01/2015 02/28/2017 Pain in left shoulder [M25.512] 10/29/2015 02/28/2017 Pain of left thumb [M79.645] 05/05/2016 02/28/2017 Chronic midline low back pain without sciatica *08/23/2016 02/28/2017 Colon cancer screening [Z12.11] 12/07/2016 12/07/2016 Trigger finger, acquired [M65.30] 09/26/2017 07/24/2019 Chronic pain syndrome [G89.4] 09/27/2017 11/28/2018 Acute pain of right shoulder [M25.511] 11/29/2017 11/28/2018 Low back pain radiating to right lower extremit*11/29/2017 07/24/2019 Cervicalgia [M54.2] 03/26/2018 Chronic midline low back pain without sciatica *03/26/2018 07/24/2019 Facet arthritis of lumbar region [M47.816] 11/06/2018 Stage 3a chronic kidney disease (HCC) [N18.31] 01/21/2019 DDD (degenerative disc disease), lumbar [M51.36]02/21/2019 Spinal stenosis of cervical region [M48.02] 04/29/2019 Spinal stenosis of lumbar region with neurogeni*04/29/2019 Chronic pain syndrome [G89.4] 08/25/2019 Pain in left hip [M25.552] 08/25/2019 Pain in right hip [M25.551] 08/25/2019 (more content not included)... [facility] 08-20-2023 Note Patient Outreach (AM [facility]) FLORECITA HEALY ([id number]) 1940 F Date Time Provider Department 08/20/23 BHUPINDER BOUCHER [facility] During your visit today, we recorded the following information about you: Bhupinder Boucher RN 08/20/2023 10:24 AM Signed [facility] Telephonic Outreach Provider Action/FYI Patient currently in the car. Arranged for a telephonic outreach another day this week. Contacted for: Routine Telephonic Outreach Contact made with patient: Yes Patient identified by name and date of . See FYI. Bhupinder Boucher RN August 20, 2023 10:23 AM Allergies As of Date: 08/20/2023 Noted Allergy Reaction ANIMAL DANDER 08/02/2016 5 - Intolerance DARVOCET A500 (PROPOXYPHENE N-SELENE*06/03/2012 1 - Mental Status Change DUST 08/02/2016 14 - Other: See Comments GRASS POLLEN 08/02/2016 14 - Other: See Comments MOLD 08/02/2016 14 - Other: See Comments SOMA (CARISOPRODOL) 06/03/2012 7 - Swelling 9 - Itching TREES 08/02/2016 14 - Other: See Comments Date Reviewed: 08/14/2023 Reviewed by: Angela Kaye RN - Fully Assessed Reason for Visit: CDM [Other] Cmt: Telephonic Outreach Prescriptions as of 08/20/2023 - baclofen 10 mg tablet Take 1 tablet by mouth twice daily as needed. - amLODIPine (NORVASC) 10 mg tablet Take 1 tablet by mouth once daily. - metoprolol succinate ER (TOPROL XL) 50 mg 24 hr tablet Take 0.5 tablets by mouth once daily. - Biotin 10 mg tab Take 1 tablet by mouth once daily. - betamethasone dipropionate, augmented (DIPROLENE) 0.05 % cream - cyanocobalamin (VITAMIN B-12) 100 mcg tab Take 100 mcg by mouth once daily. - levothyroxine (SYNTHROID) 25 mcg tablet Take 1 tablet by mouth once daily. Except 2 tabs by mouth every Sunday and Sunday - lisinopril (ZESTRIL) 40 mg tablet Take 1 tablet by mouth once daily. - acetaminophen (TYLENOL) 325 mg tablet Take 2 tablets by mouth every 4 hours as needed for pain. - pregabalin (LYRICA) 75 mg capsule Take 75 mg by mouth daily at bedtime. - cholecalciferol, vitamin D3, (VITAMIN D3 ORAL) Take 2,000 Units by mouth once daily. - alpha tocopheryl acetate (VITAMIN E) 400 unit capsule Take 400 Units by mouth once daily. - diphenhydrAMINE-Acetaminophen 25-500 mg tab Take 2 tablets by mouth at bedtime as needed. Problem List As Of Date 08/20/2023 Noted Resolved Chronic pain [G89.29] 06/03/2012 07/24/2019 Primary hypertension [I10] 06/03/2012 Hyperlipidemia [E78.5] 06/03/2012 History of Jovana thyroiditis [Z86.39] 06/03/2012 Osteoporosis [M81.0] 07/08/2012 08/09/2012 Lung nodules [R91.8] 07/08/2012 Psoriasis [L40.8] 10/18/2012 Eczematous dermatitis [L30.9] 10/18/2012 02/28/2017 Xerosis cutis [L85.3] 10/18/2012 02/28/2017 Pruritus [L29.9] 10/18/2012 02/28/2017 Excoriation [T14.8XXA] 10/18/2012 02/28/2017 Lichenification and lichen simplex chronicus [L*10/18/2012 Malignant neoplasm of upper-outer quadrant of l*05/28/2015 Low back pain [M54.50] 08/06/2015 07/24/2019 Pain in right hip [M25.551] 08/06/2015 07/24/2019 Thoracic back pain [M54.6] 08/06/2015 02/28/2017 Cervicalgia [M54.2] 08/06/2015 02/28/2017 Bilateral ankle pain [M25.571, M25.572] 10/01/2015 02/28/2017 Pain in left shoulder [M25.512] 10/29/2015 02/28/2017 Pain of left thumb [M79.645] 05/05/2016 02/28/2017 Chronic midline low back pain without sciatica *08/23/2016 02/28/2017 Colon cancer screening [Z12.11] 12/07/2016 12/07/2016 Trigger finger, acquired [M65.30] 09/26/2017 07/24/2019 Chronic pain syndrome [G89.4] 09/27/2017 11/28/2018 Acute pain of right shoulder [M25.511] 11/29/2017 11/28/2018 Low back pain radiating to right lower extremit*11/29/2017 07/24/2019 Cervicalgia [M54.2] 03/26/2018 Chronic midline low back pain without sciatica *03/26/2018 07/24/2019 Facet arthritis of lumbar region [M47.816] 11/06/2018 Stage 3a chronic kidney disease (HCC) [N18.31] 01/21/2019 DDD (degenerative disc disease), lumbar [M51.36]02/21/2019 Spinal stenosis of cervical region [M48.02] 04/29/2019 Spinal stenosis of lumbar region with neurogeni*04/29/2019 Chronic pain syndrome [G89.4] 08/25/2019 Pain in left hip [M25.552] 08/25/2019 Pain in right hip [M25.551] 08/25/2019 Left shoulder pain [M25.512] 02/19/2020 Right shoulder pain [M25.511] 02/19/2020 Arthritis of both glenohumeral joints [M19.011,*12/03/2019 Bleeding internal hemorrhoids [K64.8] 06/14/2022 History of colonic polyps [Z86.010] 06/14/2022 Problem [[id number]] 06/14/2022 Ectatic aorta (HCC) [I77.819] 06/14/2022 Fatty liver [K76.0] 06/14/2022 Sepsis (HCC) [A41.9] 11/05/2022 11/11/2022 Cellulitis of right lower leg [L03.115] 11/06/2022 Urinary retention [R33.9] 11/06/2022 Nausea AND vomiting [R11.2] 11/06/2022 11/11/2022 Diarrhea [R19.7] 11/06/2022 11/11/2022 Postoperative hypothyroidism [E89.0] 11/06/2022 Vaginitis due to Callie [B37.31] 11/11/2022 Nicotine use disorder, (more content not included)... [facility] 08-20-2023 Note HNO ID: [id number] Author: Bhupinder Boucher RN Service: ? Author Type: Registered Nurse Type: Progress Notes Filed: 08/20/2023 10:24 AM Note Text: CDM Telephonic Outreach Provider Action/FYI Patient currently in the car. Arranged for a telephonic outreach another day this week. Contacted for: Routine Telephonic Outreach Contact made with patient: Yes Patient identified by name and date of . See FYI. Bhupinder Boucher RN August 20, 2023 10:23 AM [facility] 08-17-2023 Note HNO ID: [id number] Author: Bhupinder Boucher RN Service: ? Author Type: Registered Nurse Type: Progress Notes Filed: 08/17/2023 3:45 PM Note Text: CDM Telephonic Outreach Provider Action/FYI #1 attempt to contact patient. Contacted for: Routine Telephonic Outreach Contact made with patient: No, left message. Bhupinder Boucher RN August 17, 2023 3:45 PM [facility] 08-17-2023 History of Presen t illness Narrative [facility] Telephonic Outreach Provider Action/FYI #1 attempt to contact patient. Contacted for: Routine Telephonic Outreach Contact made with patient: No, left message. Bhupinder Boucher RN August 17, 2023 3:45 PM documented in this encounter [facility] 08-17-2023 Note Patient Outreach ([facility]) FLORECITA HEALY ([id number]) 1940 F Date Time Provider Department 08/17/23 BHUPINDER BOUCHER [facility] During your visit today, we recorded the following information about you: Bhupinder Boucher RN 08/17/2023 3:45 PM Signed [facility] Telephonic Outreach Provider Action/FYI #1 attempt to contact patient. Contacted for: Routine Telephonic Outreach Contact made with patient: No, left message. Bhupinder Boucher RN August 17, 2023 3:45 PM Allergies As of Date: 08/17/2023 Noted Allergy Reaction ANIMAL DANDER 08/02/2016 5 - Intolerance DARVOCET A500 (PROPOXYPHENE N-SELENE*06/03/2012 1 - Mental Status Change DUST 08/02/2016 14 - Other: See Comments GRASS POLLEN 08/02/2016 14 - Other: See Comments MOLD 08/02/2016 14 - Other: See Comments SOMA (CARISOPRODOL) 06/03/2012 7 - Swelling 9 - Itching TREES 08/02/2016 14 - Other: See Comments Date Reviewed: 08/14/2023 Reviewed by: Angela Kaye, HERNESTO - Fully Assessed Reason for Visit: CDM [Other] Cmt: Telephonic Outreach Prescriptions as of 08/17/2023 - baclofen 10 mg tablet Take 1 tablet by mouth twice daily as needed. - amLODIPine (NORVASC) 10 mg tablet Take 1 tablet by mouth once daily. - metoprolol succinate ER (TOPROL XL) 50 mg 24 hr tablet Take 0.5 tablets by mouth once daily. - Biotin 10 mg tab Take 1 tablet by mouth once daily. - betamethasone dipropionate, augmented (DIPROLENE) 0.05 % cream - cyanocobalamin (VITAMIN B-12) 100 mcg tab Take 100 mcg by mouth once daily. - levothyroxine (SYNTHROID) 25 mcg tablet Take 1 tablet by mouth once daily. Except 2 tabs by mouth every Sunday and Sunday - lisinopril (ZESTRIL) 40 mg tablet Take 1 tablet by mouth once daily. - acetaminophen (TYLENOL) 325 mg tablet Take 2 tablets by mouth every 4 hours as needed for pain. - pregabalin (LYRICA) 75 mg capsule Take 75 mg by mouth daily at bedtime. - cholecalciferol, vitamin D3, (VITAMIN D3 ORAL) Take 2,000 Units by mouth once daily. - alpha tocopheryl acetate (VITAMIN E) 400 unit capsule Take 400 Units by mouth once daily. - diphenhydrAMINE-Acetaminophen 25-500 mg tab Take 2 tablets by mouth at bedtime as needed. Problem List As Of Date 08/17/2023 Noted Resolved Chronic pain [G89.29] 06/03/2012 07/24/2019 Primary hypertension [I10] 06/03/2012 Hyperlipidemia [E78.5] 06/03/2012 History of Jovana thyroiditis [Z86.39] 06/03/2012 Osteoporosis [M81.0] 07/08/2012 08/09/2012 Lung nodules [R91.8] 07/08/2012 Psoriasis [L40.8] 10/18/2012 Eczematous dermatitis [L30.9] 10/18/2012 02/28/2017 Xerosis cutis [L85.3] 10/18/2012 02/28/2017 Pruritus [L29.9] 10/18/2012 02/28/2017 Excoriation [T14.8XXA] 10/18/2012 02/28/2017 Lichenification and lichen simplex chronicus [L*10/18/2012 Malignant neoplasm of upper-outer quadrant of l*05/28/2015 Low back pain [M54.50] 08/06/2015 07/24/2019 Pain in right hip [M25.551] 08/06/2015 07/24/2019 Thoracic back pain [M54.6] 08/06/2015 02/28/2017 Cervicalgia [M54.2] 08/06/2015 02/28/2017 Bilateral ankle pain [M25.571, M25.572] 10/01/2015 02/28/2017 Pain in left shoulder [M25.512] 10/29/2015 02/28/2017 Pain of left thumb [M79.645] 05/05/2016 02/28/2017 Chronic midline low back pain without sciatica *08/23/2016 02/28/2017 Colon cancer screening [Z12.11] 12/07/2016 12/07/2016 Trigger finger, acquired [M65.30] 09/26/2017 07/24/2019 Chronic pain syndrome [G89.4] 09/27/2017 11/28/2018 Acute pain of right shoulder [M25.511] 11/29/2017 11/28/2018 Low back pain radiating to right lower extremit*11/29/2017 07/24/2019 Cervicalgia [M54.2] 03/26/2018 Chronic midline low back pain without sciatica *03/26/2018 07/24/2019 Facet arthritis of lumbar region [M47.816] 11/06/2018 Stage 3a chronic kidney disease (HCC) [N18.31] 01/21/2019 DDD (degenerative disc disease), lumbar [M51.36]02/21/2019 Spinal stenosis of cervical region [M48.02] 04/29/2019 Spinal stenosis of lumbar region with neurogeni*04/29/2019 Chronic pain syndrome [G89.4] 08/25/2019 Pain in left hip [M25.552] 08/25/2019 Pain in right hip [M25.551] 08/25/2019 Left shoulder pain [M25.512] 02/19/2020 Right shoulder pain [M25.511] 02/19/2020 Arthritis of both glenohumeral joints [M19.011,*12/03/2019 Bleeding internal hemorrhoids [K64.8] 06/14/2022 History of colonic polyps [Z86.010] 06/14/2022 Problem [[id number]] 06/14/2022 Ectatic aorta (HCC) [I77.819] 06/14/2022 Fatty liver [K76.0] 06/14/2022 Sepsis (HCC) [A41.9] 11/05/2022 11/11/2022 Cellulitis of right lower leg [L03.115] 11/06/2022 Urinary retention [R33.9] 11/06/2022 Nausea AND vomiting [R11.2] 11/06/2022 11/11/2022 Diarrhea [R19.7] 11/06/2022 11/11/2022 Postoperative hypothyroidism [E89.0] 11/06/2022 Vaginitis due to Callie [B37.31] 11/11/2022 Nicotine use disorder, F17.2 [F17.200] 11/14/2022 Venous insufficiency [I87.2] 03/02/2023 [place] (more content not included)... [facility] 08-14-2023 Note HNO ID: [id number] Author: Rc Rodriguez MD Service: ? Author Type: Physician Type: Progress Notes Filed: 08/15/2023 1:52 PM Note Text: INFECTIOUS DISEASE WOUND CENTER NOTE Patient Name: Florecita Healy Date: 08/14/2023 ASSESSMENT: Cellulitis, RLE COPD Hypertension Hyperlipidemia Breast cancer Chronic pain (pain management) Psoriasis Osteopenia PLAN: Continue to monitor off antibiotics Monitor for signs of infection. These were discussed in details with her Compression compliance emphasized. Tubigrip's prescribed Vascular surgery follow-up has been scheduled Edema management discussed Noted plans for surgery for venous insufficiency in the near future Follow-up with infectious disease at the wound center in 3 months per patient's wishes and she wants to continue to follow-up with me sporadically INTERVAL HISTORY: ROS done with pt and negative unless stated. Feels better. Legs swell up occasionally when she is not wearing compression. No new complaints. No fevers or chills. MEDICATIONS: baclofen 10 mg tablet Take 1 tablet by mouth twice daily as needed. amLODIPine (NORVASC) 10 mg tablet Take 1 tablet by mouth once daily. Biotin 10 mg tab Take 1 tablet by mouth once daily. betamethasone dipropionate, augmented (DIPROLENE) 0.05 % cream cyanocobalamin (VITAMIN B-12) 100 mcg tab Take 100 mcg by mouth once daily. levothyroxine (SYNTHROID) 25 mcg tablet Take 1 tablet by mouth once daily. Except 2 tabs by mouth every Sunday and Sunday lisinopril (ZESTRIL) 40 mg tablet Take 1 tablet by mouth once daily. acetaminophen (TYLENOL) 325 mg tablet Take 2 tablets by mouth every 4 hours as needed for pain. pregabalin (LYRICA) 75 mg capsule Take 75 mg by mouth daily at bedtime. cholecalciferol, vitamin D3, (VITAMIN D3 ORAL) Take 2,000 Units by mouth once daily. alpha tocopheryl acetate (VITAMIN E) 400 unit capsule Take 400 Units by mouth once daily. diphenhydrAMINE-Acetaminophen 25-500 mg tab Take 2 tablets by mouth at bedtime as needed. metoprolol succinate ER (TOPROL XL) 50 mg 24 hr tablet Take 0.5 tablets by mouth once daily. PHYSICAL EXAM: Vital signs: stable, afeb General: alert, oriented, NAD Lungs: bilaterally clear to auscultation Heart: regular rate and rhythm Abdomen: soft, non tender, non distended, BS+ Extremities: no swollen joints Skin: no rash Wounds appear to have healed. No signs of cellulitis or other infection. Mild edema present. Lab data: reviewed WBC (k/uL) Date Value 02/27/2023 5.38 11/13/2022 4.94 11/12/2022 4.30 11/01/2021 4.45 04/01/2021 5.25 03/08/2020 5.79 Hemoglobin (g/dL) Date Value 02/27/2023 12.6 11/13/2022 10.1 11/12/2022 9.7 11/01/2021 12.9 04/01/2021 12.4 03/08/2020 12.2 INR (no units) Date Value 11/05/2022 1.0 Sodium (mmol/L) Date Value 02/27/2023 142 11/13/2022 137 11/12/2022 136 11/01/2021 139 04/01/2021 141 03/08/2020 143 Potassium (mmol/L) Date Value 02/27/2023 3.8 11/13/2022 4.7 11/12/2022 4.2 11/01/2021 4.1 04/01/2021 4.0 03/08/2020 3.8 CO2 (mmol/L) Date Value 02/27/2023 23 11/13/2022 28 11/12/2022 25 11/01/2021 24 04/01/2021 25 03/08/2020 22 BUN (mg/dL) Date Value 02/27/2023 14 11/13/2022 12 11/12/2022 11 11/01/2021 16 04/01/2021 16 03/08/2020 17 Creatinine (mg/dL) Date Value 02/27/2023 1.02 11/13/2022 1.00 11/12/2022 0.83 11/01/2021 0.96 04/01/2021 1.00 03/08/2020 0.99 AST (U/L) Date Value 02/27/2023 12 11/05/2022 17 11/01/2021 13 04/01/2021 14 03/08/2020 16 ALT (U/L) Date Value 02/27/2023 10 11/05/2022 11 11/01/2021 9 04/01/2021 8 03/08/2020 9 Bilirubin, Total (mg/dL) Date Value 02/27/2023 0.8 11/05/2022 1.2 11/01/2021 0.6 04/01/2021 0.6 03/08/2020 0.6 Alkaline Phosphatase (U/L) Date Value 02/27/2023 96 11/05/2022 85 11/01/2021 103 04/01/2021 94 03/08/2020 98 WSR (mm/hr) Date Value 08/02/2016 8 06/04/2015 4 06/23/2013 8 12/26/2012 2 Sed Rate, Westergren (mm/hr) Date Value 11/05/2022 46 Lactate (mmol/L) Date Value 11/05/2022 1.0 11/05/2022 2.3 Sepsis Lactate (mmol/L) Date Value 11/06/2022 1.3 11/05/2022 2.2 Vancomycin (ug/mL) Date Value 11/08/2022 8.2 Microbiology data: reviewed Imaging data: reviewed Rc Rodriguez MD Pager: [facility] 07-31-2023 Note HNO ID: [id number] Author: Aneta Brown PA-C Service: ? Author Type: Physician Rig Superintendent Type: Progress Notes Filed: 08/03/2023 7:56 AM Note Text: 82 year old female with c/o BP recheck 1 month HTN: Current meds: Amlodipine 10mg daily Metoprolol succinate ER 50mg one half tab daily Lisinopril 40 mg daily Patient is compliant with meds Yes Monitors bp at home: No. If yes, readings: Denies side effects: No. Chest pain: No. Dyspnea: Not at rest. Smoker. SOB going up steps for a minute or so. Edema: Yes, better than what it has been. Palpitations: No. Syncope: No. Headache: No. Dizziness: lightheaded after taking meds, walking. No falls. Last 3 Encounter BP Readings: Date: BP: 07/10/2023 144/79 07/03/2023 152/86[STEPH BP[ 05/29/2023 157/86[STEPH BP[ Last 2 Encounter Wt Readings: Date: Wt: 05/29/2023 70.6 kg (155 lb 9.6 oz) 03/22/2023 67.8 kg (149 lb 8 oz) PVD Smokes [address] Proctor for PAD 05/18/2023 US venous incompetence RIGHT SIDE - DEEP VEINS Successful ablation of the great saphenous vein to within 3.4 cm of the saphenofemoral junction. The inferior epigastric vein appears patent. The external iliac vein, common femoral vein, and femoral vein proximal are patent with respirophasic flow. There is no evidence of deep venous thrombosis. 05/11/2023 EVLT ablation of the right great saphenous vein 02/13/2023 PVR / daugherty/toe RIGHT SIDE Resting right ankle brachial index: 1.08 Normal ankle brachial index at rest in the right leg. Right ankle: Normal at rest. LEFT SIDE Resting left ankle brachial index: 1.10 Normal ankle brachial index at rest in the left leg. Left ankle: Normal at rest. Sees Dr. Aleksandr Tim for issues in lower legs with purplish lumps and plaques on lower legs: gets cortisone injections. HISTORIES FAMILY HISTORY Problem Relation Age of Onset Heart Father other (Black Lung) Father Arthritis Mother RA other (gallbladder) Mother Diabetes Sister Cancer Sister kidney tumor Cancer Brother lung cancer PAST MEDICAL HISTORY Diagnosis Date Abnormal ultrasound of breast 12/02/15 Left Breast cancer of upper-outer quadrant of left female breast (HCC) Chronic obstructive pulmonary disease (COPD) (HCC) Chronic pain 06/03/2012 sees pain management. Diarrhea 11/06/2022 Hyperlipidemia 06/03/2012 Hypertension 06/03/2012 Nausea AND vomiting 11/06/2022 Osteopenia Psoriasis Pulmonary nodule Dr. Dawn Sepsis ([facility]) 11/05/2022 Snoring PAST SURGICAL HISTORY Procedure Laterality Date AMPUTATE TOE; IP JOINT BREAST BIOPSY Left 12/02/2015 BX/EXC LYMPH NODE OPEN DEEP AXILLARY NODE Left 05/11/2015 DELIVERY ONLY , low transverse CHOLECYSTECTOMY COLONOSCOPY 05/13/2001 normal COLONOSCOPY 01/02/2007 diverticulosis COLONOSCOPY FLX DX W/COLLJ SPEC WHEN PFRMD 09/04/2013 Colonoscopy COLONOSCOPY FLX DX W/COLLJ SPEC WHEN PFRMD 12/07/2016 Colonoscopy COLONOSCOPY SCREENING 05/30/2022 Dr Borrero 5 year F/U HYSTERECTOMY HX stil has one ovary INCISE FINGER TENDON SHEATH Right INCISE FINGER TENDON SHEATH Right MASTECTOMY, PARTIAL Left 05/11/2015 NEUROPLASTY AND/TRANSPOS MEDIAN NRV CARPAL TUNNE Right 08/01/2019 Right carpal tunnel release ORTHOPEDIC SURGERY HX Left 10/11/2017 3rd and 4th trigger finger release PERQ DEVICE PLACEMENT BREAST LOC 1ST LES W/GDNCE Left 05/11/2015 THYROIDECTOMY TOTAL/COMPLETE right sided thyroidectomy due to nodules. were benign XCAPSL CTRC RMVL INSJ IO LENS PROSTH W/O ECP 01/2015 Cataract Extraction with PC IOL Social History Tobacco Use Smoking status: Every Day Packs/day: 1.00 Years: 20.00 Additional pack years: 0.00 Total pack years: 20.00 Types: Cigarettes Smokeless tobacco: Never Tobacco comments: Pt has cut back to 1/4 pack daily. 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, Estrogen Receptor Positive (Hcc) Cervicalgia Facet Arthritis of Lumbar Region Stage 3a Chronic Kidney Disease (Hcc) Ddd (Degenerative Disc Disease), Lumbar Spinal Stenosis of Cervical Region Spinal Stenosis of Lumbar Region With Neurogenic Claudication Chronic Pain Syndrome Pain in Left Hip Pain in Right Hip Left Shoulder Pain Right Shoulder Pain Arthritis of Both Glenohumeral Joints Bleeding Internal Hemorrhoids History of Colonic Polyps Problem Ectatic Aorta (Hcc) Fatty Liver Cellulitis of Right Lower Leg Urinary Retention Postoperative Hypothyroidism Vaginitis Due to Callie Nicotine use disorder, F17.2 Venous Insufficiency Current Outpatient Medications Medication Sig Dispense Refill amLODIPine (NORVASC) 10 mg tablet (more content not included)... [facility] 07-31-2023 History of Presen t illness Narrative 82 year old female with c/o BP recheck 1 month HTN: Current meds: Amlodipine 10mg daily Metoprolol succinate ER 50mg one half tab daily Lisinopril 40 mg daily Patient is compliant with meds Yes Monitors bp at home: No. If yes, readings: Denies side effects: No. Chest pain: No. Dyspnea: Not at rest. Smoker. SOB going up steps for a minute or so. Edema: Yes, better than what it has been. Palpitations: No. Syncope: No. Headache: No. Dizziness: lightheaded after taking meds, walking. No falls. Last 3 Encounter BP Readings: Date: BP: 07/10/2023 144/79 07/03/2023 152/86[STEPH BP[ 05/29/2023 157/86[STEHP BP[ Last 2 Encounter Wt Readings: Date: Wt: 05/29/2023 70.6 kg (155 lb 9.6 oz) 03/22/2023 67.8 kg (149 lb 8 oz) PVD Smokes [address] Proctor for PAD 05/18/2023 US venous incompetence RIGHT SIDE - DEEP VEINS Successful ablation of the great saphenous vein to within 3.4 cm of the saphenofemoral junction. The inferior epigastric vein appears patent. The external iliac vein, common femoral vein, and femoral vein proximal are patent with respirophasic flow. There is no evidence of deep venous thrombosis. 05/11/2023 EVLT ablation of the right great saphenous vein 02/13/2023 PVR / daugherty/toe RIGHT SIDE Resting right ankle brachial index: 1.08 Normal ankle brachial index at rest in the right leg. Right ankle: Normal at rest. LEFT SIDE Resting left ankle brachial index: 1.10 Normal ankle brachial index at rest in the left leg. Left ankle: Normal at rest. Sees Dr. Aleksandr Tim for issues in lower legs with purplish lumps and plaques on lower legs: gets cortisone injections. HISTORIES FAMILY HISTORY Problem Relation Age of Onset Heart Father other (Black Lung) Father Arthritis Mother RA other (gallbladder) Mother Diabetes Sister Cancer Sister kidney tumor Cancer Brother lung cancer PAST MEDICAL HISTORY Diagnosis Date Abnormal ultrasound of breast 12/02/15 Left Breast cancer of upper-outer quadrant of left female breast (HCC) Chronic obstructive pulmonary disease (COPD) (HCC) Chronic pain 06/03/2012 sees pain management. Diarrhea 11/06/2022 Hyperlipidemia 06/03/2012 Hypertension 06/03/2012 Nausea & vomiting 11/06/2022 Osteopenia Psoriasis Pulmonary nodule Dr. Dawn Sepsis ([facility]) 11/05/2022 Snoring PAST SURGICAL HISTORY Procedure Laterality Date AMPUTATE TOE; IP JOINT BREAST BIOPSY Left 12/02/2015 BX/EXC LYMPH NODE OPEN DEEP AXILLARY NODE Left 05/11/2015 DELIVERY ONLY , low transverse CHOLECYSTECTOMY COLONOSCOPY 05/13/2001 normal COLONOSCOPY 01/02/2007 diverticulosis COLONOSCOPY FLX DX W/COLLJ SPEC WHEN PFRMD 09/04/2013 Colonoscopy COLONOSCOPY FLX DX W/COLLJ SPEC WHEN PFRMD 12/07/2016 Colonoscopy COLONOSCOPY SCREENING 05/30/2022 Dr Borrero 5 year F/U HYSTERECTOMY HX stil has one ovary INCISE FINGER TENDON SHEATH Right INCISE FINGER TENDON SHEATH Right MASTECTOMY, PARTIAL Left 05/11/2015 NEUROPLASTY &/TRANSPOS MEDIAN NRV CARPAL TUNNE Right 08/01/2019 Right carpal tunnel release ORTHOPEDIC SURGERY HX Left 10/11/2017 3rd and 4th trigger finger release PERQ DEVICE PLACEMENT BREAST LOC 1ST LES W/GDNCE Left 05/11/2015 THYROIDECTOMY TOTAL/COMPLETE right sided thyroidectomy due to nodules. were benign XCAPSL CTRC RMVL INSJ IO LENS PROSTH W/O ECP 01/2015 Cataract Extraction with PC IOL Social History Tobacco Use Smoking status: Every Day Packs/day: 1.00 Years: 20.00 Additional pack years: 0.00 Total pack years: 20.00 Types: Cigarettes Smokeless tobacco: Never Tobacco comments: Pt has cut back to 1/4 pack daily. 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, Estrogen Receptor Positive (Hcc) Cervicalgia Facet Arthritis of Lumbar Region Stage 3a Chronic Kidney Disease (Hcc) Ddd (Degenerative Disc Disease), Lumbar Spinal Stenosis of Cervical Region Spinal Stenosis of Lumbar Region With Neurogenic Claudication Chronic Pain Syndrome Pain in Left Hip Pain in Right Hip Left Shoulder Pain Right Shoulder Pain Arthritis of Both Glenohumeral Joints Bleeding Internal Hemorrhoids History of Colonic Polyps Problem Ectatic Aorta (Hcc) Fatty Liver Cellulitis of Right Lower Leg Urinary Retention Postoperative Hypothyroidism Vaginitis Due to Callie Nicotine use disorder, F17.2 Venous Insufficiency Current Outpatient Medications Medication Sig Dispense Refill amLODIPine (NORVASC) 10 mg tablet Take 1 tablet by mouth once daily. 90 tablet 1 metoprolol succinate ER (TOPROL XL) 50 mg 24 hr tablet Take 0.5 tablets by mouth once daily. 90 tablet 3 Biotin 10 mg tab Take 1 tablet by mouth once daily. betamethasone dipropionate, augmented (DIPROLENE) 0.05 % cream cyanocobalamin (VITAMIN B-12) 100 mcg tab Take 100 mcg by mouth once daily. levothyroxine (SYNTHROID) 25 mcg tablet Take 1 tablet by mouth once daily. Except 2 tabs by mouth every Sunday and Sunday 114 tablet 3 lisinopril (ZESTRIL) 40 mg tablet Take 1 tablet by mouth once daily. 90 tablet 1 acetaminophen (TYLENOL) 325 mg tablet Take 2 tablets by mouth every 4 hours as needed for pain. pregabalin (LYRICA) 75 mg capsule Take 75 mg by mouth daily at bedtime. cholecalciferol, vitamin D3, (VITAMIN D3 ORAL) Take 2,000 Units by mouth once daily. alpha tocopheryl acetate (VITAMIN E) 400 unit capsule Take 400 Units by mouth once daily. diphenhydrAMINE-Acetaminophen 25-500 mg tab Take 2 tablets by mouth at bedtime as needed. No current facility-administered medications for this visit. BP Controlled (<130/80) Never done Shingrix Vaccine(2 of 3) due on 10/09/2013 DTaP,Tdap,Td Vaccine(2 - Tdap) due on 09/03/2022 Advance Directive Discussion due on 11/12/2022 Depression Assessment Never done Influenza Vaccine(1) due on 07/13/2023 EXAM: BP 132/70 Pulse 84 Resp 16 Wt 70.3 kg (155 lb) SpO2 95% BMI 30.27 kg/m Pleasant older woman in no acute distress. Alert and oriented all spheres. Normal affect and cognition. Speech normal. No deficits to learning or comprehension. Skin warm, dry, pink to lips and nailbeds. Normal turgor. Respirations regular and unlabored. Chest is normal shape. Lungs are clear to all murray with good air exchange through out. HRRR without murmur or gallop. No lifts, heaves, or rubs. Extrem: no clubbing or cyanosis. Edema: 1/4+ bilaterally. Has purplishsoft tissue lumps which followed flu shot last year, admitted for cellulitis. Extremities are warm and pink with prompt capillary refill. ASSESSMENT/PLAN: 1. Encounter for immunization - ICD9: V03.89, ICD10: Z23 (primary diagnosis) - INFLUENZA VACCINE, PRSV FREE, AGE 65+ YR, HIGH DOSE, QUADRIVALENT (FLUZONE HIGH-DOSE) 2. Primary hypertension - ICD9: 401.9, ICD10: I10 - Controlled - Continue current medications - Recommend home blood pressure monitoring, to bring results to next visit - Encouraged sodium restriction, DASH or Mediterranean diet - Recommend regular aerobic exercise - COMP METABOLIC PANEL 3. Hyperglycemia - ICD9: 790.29, ICD10: R73.9 Recheck lab - HGB A1C 4. Hyperlipidemia, unspecified hyperlipidemia type - ICD9: 272.4, ICD10: E78.5 - Controlled - Continue current medications - Counseled on healthy diet and regular exercise - LIPID PANEL BASIC 5. Stage 3 chronic kidney disease, unspecified whether stage 3a or 3b CKD (HCC) - ICD9: 585.3, ICD10: N18.30 - eGFR: 56 Stable - Counseled on avoiding NSAIDs, adequate hydration 6. Postoperative hypothyroidism - ICD9: 244.0, ICD10: E89.0 - Instructed patient on importance of taking on an empty stomach either first thing in the morning or at bedtime. - TSH BLD 7. Peripheral arterial disease (HCC) - ICD9: 443.9, ICD10: I73.9 Normal bilateral ANA. 8. Malignant neoplasm of upper-outer quadrant of left breast in female, estrogen receptor positive (HCC) - ICD9: 174.4, V86.0, ICD10: C50.412, Z17.0 Follows with Nevin Fajardo KAITLYN F/u in 6 months Aneta Brown PA-C documented in this encounter [facility] 07-24-2023 Note Patient Outreach (AM [facility]) FLORECITA HEALY ([id number]) 1940 F Date Time Provider Department 07/24/23 BHUPINDER BOUCHERJairon During your visit today, we recorded the following information about you: Bhupinder Boucher RN 07/24/2023 11:13 AM Signed [facility] Telephonic Outreach Provider Action/FYI #2 attempt to contact patient. Contacted for: Routine Telephonic Outreach Contact made with patient: No, left message. Bhupinder Boucher RN July 24, 2023 11:13 AM Allergies As of Date: 07/24/2023 Noted Allergy Reaction ANIMAL DANDER 08/02/2016 5 - Intolerance DARVOCET A500 (PROPOXYPHENE N-SELENE*06/03/2012 1 - Mental Status Change DUST 08/02/2016 14 - Other: See Comments GRASS POLLEN 08/02/2016 14 - Other: See Comments MOLD 08/02/2016 14 - Other: See Comments SOMA (CARISOPRODOL) 06/03/2012 7 - Swelling 9 - Itching TREES 08/02/2016 14 - Other: See Comments Date Reviewed: 07/10/2023 Reviewed by: Aleja Macedo OCCA - Fully Assessed Reason for Visit: CDM [Other] Cmt: Telephonic Outreach Prescriptions as of 07/24/2023 - amLODIPine (NORVASC) 10 mg tablet Take 1 tablet by mouth once daily. - metoprolol succinate ER (TOPROL XL) 50 mg 24 hr tablet Take 0.5 tablets by mouth once daily. - Biotin 10 mg tab Take 1 tablet by mouth once daily. - betamethasone dipropionate, augmented (DIPROLENE) 0.05 % cream - cyanocobalamin (VITAMIN B-12) 100 mcg tab Take 100 mcg by mouth once daily. - levothyroxine (SYNTHROID) 25 mcg tablet Take 1 tablet by mouth once daily. Except 2 tabs by mouth every Sunday and Sunday - lisinopril (ZESTRIL) 40 mg tablet Take 1 tablet by mouth once daily. - acetaminophen (TYLENOL) 325 mg tablet Take 2 tablets by mouth every 4 hours as needed for pain. - pregabalin (LYRICA) 75 mg capsule Take 75 mg by mouth daily at bedtime. - cholecalciferol, vitamin D3, (VITAMIN D3 ORAL) Take 2,000 Units by mouth once daily. - alpha tocopheryl acetate (VITAMIN E) 400 unit capsule Take 400 Units by mouth once daily. - diphenhydrAMINE-Acetaminophen 25-500 mg tab Take 2 tablets by mouth at bedtime as needed. Problem List As Of Date 07/24/2023 Noted Resolved Chronic pain [G89.29] 06/03/2012 07/24/2019 Primary hypertension [I10] 06/03/2012 Hyperlipidemia [E78.5] 06/03/2012 History of Jovana thyroiditis [Z86.39] 06/03/2012 Osteoporosis [M81.0] 07/08/2012 08/09/2012 Lung nodules [R91.8] 07/08/2012 Psoriasis [L40.8] 10/18/2012 Eczematous dermatitis [L30.9] 10/18/2012 02/28/2017 Xerosis cutis [L85.3] 10/18/2012 02/28/2017 Pruritus [L29.9] 10/18/2012 02/28/2017 Excoriation [T14.8XXA] 10/18/2012 02/28/2017 Lichenification and lichen simplex chronicus [L*10/18/2012 Malignant neoplasm of upper-outer quadrant of l*05/28/2015 Low back pain [M54.50] 08/06/2015 07/24/2019 Pain in right hip [M25.551] 08/06/2015 07/24/2019 Thoracic back pain [M54.6] 08/06/2015 02/28/2017 Cervicalgia [M54.2] 08/06/2015 02/28/2017 Bilateral ankle pain [M25.571, M25.572] 10/01/2015 02/28/2017 Pain in left shoulder [M25.512] 10/29/2015 02/28/2017 Pain of left thumb [M79.645] 05/05/2016 02/28/2017 Chronic midline low back pain without sciatica *08/23/2016 02/28/2017 Colon cancer screening [Z12.11] 12/07/2016 12/07/2016 Trigger finger, acquired [M65.30] 09/26/2017 07/24/2019 Chronic pain syndrome [G89.4] 09/27/2017 11/28/2018 Acute pain of right shoulder [M25.511] 11/29/2017 11/28/2018 Low back pain radiating to right lower extremit*11/29/2017 07/24/2019 Cervicalgia [M54.2] 03/26/2018 Chronic midline low back pain without sciatica *03/26/2018 07/24/2019 Facet arthritis of lumbar region [M47.816] 11/06/2018 Stage 3a chronic kidney disease (HCC) [N18.31] 01/21/2019 DDD (degenerative disc disease), lumbar [M51.36]02/21/2019 Spinal stenosis of cervical region [M48.02] 04/29/2019 Spinal stenosis of lumbar region with neurogeni*04/29/2019 Chronic pain syndrome [G89.4] 08/25/2019 Pain in left hip [M25.552] 08/25/2019 Pain in right hip [M25.551] 08/25/2019 Left shoulder pain [M25.512] 02/19/2020 Right shoulder pain [M25.511] 02/19/2020 Arthritis of both glenohumeral joints [M19.011,*12/03/2019 Bleeding internal hemorrhoids [K64.8] 06/14/2022 History of colonic polyps [Z86.010] 06/14/2022 Problem [RHX6099] 06/14/2022 Ectatic aorta (HCC) [I77.819] 06/14/2022 Fatty liver [K76.0] 06/14/2022 Sepsis (HCC) [A41.9] 11/05/2022 11/11/2022 Cellulitis of right lower leg [L03.115] 11/06/2022 Urinary retention [R33.9] 11/06/2022 Nausea AND vomiting [R11.2] 11/06/2022 11/11/2022 Diarrhea [R19.7] 11/06/2022 11/11/2022 Postoperative hypothyroidism [E89.0] 11/06/2022 Vaginitis due to Callie [B37.31] 11/11/2022 Nicotine use disorder, F17.2 [F17.200] 11/14/2022 Venous insufficiency [I87.2] 03/02/2023 Encounter Status:Closed by BHUPINDER BOUCHER on 07/24/23 [facility] 07-24-2023 Note HNO ID: [id number] Author: Bhupinder Boucher, RN Service: ? Author Type: Registered Nurse Type: Progress Notes Filed: 07/24/2023 11:13 AM Note Text: CD Telephonic Outreach Provider Action/FYI #2 attempt to contact patient. Contacted for: Routine Telephonic Outreach Contact made with patient: No, left message. Bhupinder Boucher RN July 24, 2023 11:13 AM [facility] 07-24-2023 History of Presen t illness Narrative [facility] Telephonic Outreach Provider Action/FYI #2 attempt to contact patient. Contacted for: Routine Telephonic Outreach Contact made with patient: No, left message. Bhupinder Boucher RN July 24, 2023 11:13 AM documented in this encounter [facility] 07-23-2023 Note HNO ID: [id number] Author: Bhupinder Boucher, RN Service: ? Author Type: Registered Nurse Type: Progress Notes Filed: 07/23/2023 3:19 PM Note Text: CDM Telephonic Outreach Provider Action/FYI #1 attempt to contact patient. Contacted for: Routine Telephonic Outreach Contact made with patient: No, left message. Bhupinder Boucher RN July 23, 2023 3:18 PM [facility] 07-23-2023 Note Patient Outreach (AM [facility]) ALICEJovanniFLORECITA ([id number]) 1940 F Date Time Provider Department 07/23/23 BHUPINDER BOUCHERJairon During your visit today, we recorded the following information about you: Bhupinder Boucher RN 07/23/2023 3:19 PM Signed [facility] Telephonic Outreach Provider Action/FYI #1 attempt to contact patient. Contacted for: Routine Telephonic Outreach Contact made with patient: No, left message. Bhupinder Boucher RN July 23, 2023 3:18 PM Allergies As of Date: 07/23/2023 Noted Allergy Reaction ANIMAL DANDER 08/02/2016 5 - Intolerance DARVOCET A500 (PROPOXYPHENE N-SELENE*06/03/2012 1 - Mental Status Change DUST 08/02/2016 14 - Other: See Comments GRASS POLLEN 08/02/2016 14 - Other: See Comments MOLD 08/02/2016 14 - Other: See Comments SOMA (CARISOPRODOL) 06/03/2012 7 - Swelling 9 - Itching TREES 08/02/2016 14 - Other: See Comments Date Reviewed: 07/10/2023 Reviewed by: Aleja Macedo OCCA - Fully Assessed Reason for Visit: CDM [Other] Cmt: Telephonic Outreach Prescriptions as of 07/23/2023 - amLODIPine (NORVASC) 10 mg tablet Take 1 tablet by mouth once daily. - metoprolol succinate ER (TOPROL XL) 50 mg 24 hr tablet Take 0.5 tablets by mouth once daily. - Biotin 10 mg tab Take 1 tablet by mouth once daily. - betamethasone dipropionate, augmented (DIPROLENE) 0.05 % cream - cyanocobalamin (VITAMIN B-12) 100 mcg tab Take 100 mcg by mouth once daily. - levothyroxine (SYNTHROID) 25 mcg tablet Take 1 tablet by mouth once daily. Except 2 tabs by mouth every Sunday and Sunday - lisinopril (ZESTRIL) 40 mg tablet Take 1 tablet by mouth once daily. - acetaminophen (TYLENOL) 325 mg tablet Take 2 tablets by mouth every 4 hours as needed for pain. - pregabalin (LYRICA) 75 mg capsule Take 75 mg by mouth daily at bedtime. - cholecalciferol, vitamin D3, (VITAMIN D3 ORAL) Take 2,000 Units by mouth once daily. - alpha tocopheryl acetate (VITAMIN E) 400 unit capsule Take 400 Units by mouth once daily. - diphenhydrAMINE-Acetaminophen 25-500 mg tab Take 2 tablets by mouth at bedtime as needed. Problem List As Of Date 07/23/2023 Noted Resolved Chronic pain [G89.29] 06/03/2012 07/24/2019 Primary hypertension [I10] 06/03/2012 Hyperlipidemia [E78.5] 06/03/2012 History of Jovana thyroiditis [Z86.39] 06/03/2012 Osteoporosis [M81.0] 07/08/2012 08/09/2012 Lung nodules [R91.8] 07/08/2012 Psoriasis [L40.8] 10/18/2012 Eczematous dermatitis [L30.9] 10/18/2012 02/28/2017 Xerosis cutis [L85.3] 10/18/2012 02/28/2017 Pruritus [L29.9] 10/18/2012 02/28/2017 Excoriation [T14.8XXA] 10/18/2012 02/28/2017 Lichenification and lichen simplex chronicus [L*10/18/2012 Malignant neoplasm of upper-outer quadrant of l*05/28/2015 Low back pain [M54.50] 08/06/2015 07/24/2019 Pain in right hip [M25.551] 08/06/2015 07/24/2019 Thoracic back pain [M54.6] 08/06/2015 02/28/2017 Cervicalgia [M54.2] 08/06/2015 02/28/2017 Bilateral ankle pain [M25.571, M25.572] 10/01/2015 02/28/2017 Pain in left shoulder [M25.512] 10/29/2015 02/28/2017 Pain of left thumb [M79.645] 05/05/2016 02/28/2017 Chronic midline low back pain without sciatica *08/23/2016 02/28/2017 Colon cancer screening [Z12.11] 12/07/2016 12/07/2016 Trigger finger, acquired [M65.30] 09/26/2017 07/24/2019 Chronic pain syndrome [G89.4] 09/27/2017 11/28/2018 Acute pain of right shoulder [M25.511] 11/29/2017 11/28/2018 Low back pain radiating to right lower extremit*11/29/2017 07/24/2019 Cervicalgia [M54.2] 03/26/2018 Chronic midline low back pain without sciatica *03/26/2018 07/24/2019 Facet arthritis of lumbar region [M47.816] 11/06/2018 Stage 3a chronic kidney disease (HCC) [N18.31] 01/21/2019 DDD (degenerative disc disease), lumbar [M51.36]02/21/2019 Spinal stenosis of cervical region [M48.02] 04/29/2019 Spinal stenosis of lumbar region with neurogeni*04/29/2019 Chronic pain syndrome [G89.4] 08/25/2019 Pain in left hip [M25.552] 08/25/2019 Pain in right hip [M25.551] 08/25/2019 Left shoulder pain [M25.512] 02/19/2020 Right shoulder pain [M25.511] 02/19/2020 Arthritis of both glenohumeral joints [M19.011,*12/03/2019 Bleeding internal hemorrhoids [K64.8] 06/14/2022 History of colonic polyps [Z86.010] 06/14/2022 Problem [CGK5037] 06/14/2022 Ectatic aorta (HCC) [I77.819] 06/14/2022 Fatty liver [K76.0] 06/14/2022 Sepsis (HCC) [A41.9] 11/05/2022 11/11/2022 Cellulitis of right lower leg [L03.115] 11/06/2022 Urinary retention [R33.9] 11/06/2022 Nausea AND vomiting [R11.2] 11/06/2022 11/11/2022 Diarrhea [R19.7] 11/06/2022 11/11/2022 Postoperative hypothyroidism [E89.0] 11/06/2022 Vaginitis due to Callie [B37.31] 11/11/2022 Nicotine use disorder, F17.2 [F17.200] 11/14/2022 Venous insufficiency [I87.2] 03/02/2023 Encounter Status:Closed by BHUPINDER BOUCHER on 07/23/23 [facility] 07-10-2023 Note HNO ID: [id number] Author: Jannie Proctor, DO Service: ? Author Type: Physician Type: Progress Notes Filed: 07/20/2023 3:56 PM Note Text: [facility] DEPARTMENT OF VASCULAR SURGERY OUTPATIENT VISIT DATE July 20, 2023 OUTPATIENT VISIT TYPE ESTABLISHED SERVICE DATE: 07/20/2023 SERVICE TIME: 3:53 PM PRIMARY CARE PHYSICIAN: Tu Canela MD HISTORY OF PRESENT ILLNESS: Ms. Healy is a 82 year old female who presents today for a vascular surgery follow-up visit after her EVLT. She notices improvement on right. She still having symptoms on left. PAST MEDICAL HISTORY Diagnosis Date Abnormal ultrasound of breast 12/02/15 Left Breast cancer of upper-outer quadrant of left female breast (HCC) Chronic obstructive pulmonary disease (COPD) (HCC) Chronic pain 06/03/2012 sees pain management. Diarrhea 11/06/2022 Hyperlipidemia 06/03/2012 Hypertension 06/03/2012 Nausea AND vomiting 11/06/2022 Osteopenia Psor[address] Pulmonary nodule Dr. Dawn Sepsis ([facility]) 11/05/2022 Snoring PAST SURGICAL HISTORY Procedure Laterality Date AMPUTATE TOE; IP JOINT BREAST BIOPSY Left 12/02/2015 BX/EXC LYMPH NODE OPEN DEEP AXILLARY NODE Left 05/11/2015 DELIVERY ONLY , low transverse CHOLECYSTECTOMY COLONOSCOPY 05/13/2001 normal COLONOSCOPY 01/02/2007 diverticulosis COLONOSCOPY FLX DX W/COLLJ SPEC WHEN PFRMD 09/04/2013 Colonoscopy COLONOSCOPY FLX DX W/COLLJ SPEC WHEN PFRMD 12/07/2016 Colonoscopy COLONOSCOPY SCREENING 05/30/2022 Dr Borrero 5 year F/U HYSTERECTOMY HX stil has one ovary INCISE FINGER TENDON SHEATH Right INCISE FINGER TENDON SHEATH Right MASTECTOMY, PARTIAL Left 05/11/2015 NEUROPLASTY AND/TRANSPOS MEDIAN NRV CARPAL TUNNE Right 08/01/2019 Right carpal tunnel release ORTHOPEDIC SURGERY HX Left 10/11/2017 3rd and 4th trigger finger release PERQ DEVICE PLACEMENT BREAST LOC 1ST LES W/GDNCE Left 05/11/2015 THYROIDECTOMY TOTAL/COMPLETE right sided thyroidectomy due to nodules. were benign XCAPSL CTRC RMVL INSJ IO LENS PROSTH W/O ECP 01/2015 Cataract Extraction with PC IOL SOCIAL HISTORY Social History Tobacco Use Smoking status: Every Day Packs/day: 1.00 Years: 20.00 Additional pack years: 0.00 Total pack years: 20.00 Types: Cigarettes Smokeless tobacco: Never Tobacco comments: Pt has cut back to 1/4 pack daily. Vaping Use Vaping Use: current everyday user Substance Use Topics Alcohol use: No Drug use: No MEDICATIONS: amLODIPine (NORVASC) 10 mg tablet Take 1 tablet by mouth once daily. metoprolol succinate ER (TOPROL XL) 50 mg 24 hr tablet Take 0.5 tablets by mouth once daily. Biotin 10 mg tab Take 1 tablet by mouth once daily. betamethasone dipropionate, augmented (DIPROLENE) 0.05 % cream cyanocobalamin (VITAMIN B-12) 100 mcg tab Take 100 mcg by mouth once daily. levothyroxine (SYNTHROID) 25 mcg tablet Take 1 tablet by mouth once daily. Except 2 tabs by mouth every Sunday and Sunday lisinopril (ZESTRIL) 40 mg tablet Take 1 tablet by mouth once daily. acetaminophen (TYLENOL) 325 mg tablet Take 2 tablets by mouth every 4 hours as needed for pain. pregabalin (LYRICA) 75 mg capsule Take 75 mg by mouth daily at bedtime. cholecalciferol, vitamin D3, (VITAMIN D3 ORAL) Take 2,000 Units by mouth once daily. alpha tocopheryl acetate (VITAMIN E) 400 unit capsule Take 400 Units by mouth once daily. diphenhydrAMINE-Acetaminophen 25-500 mg tab Take 2 tablets by mouth at bedtime as needed. ALLERGIES: ALLERGIES Allergen Reactions Animal Dander Intolerance Darvocet A500 [Prop* Mental Status Change Dust Other: See Comments Grass Pollen Other: See Comments Mold Other: See Comments Soma [Carisoprodol] Swelling, Itching Trees Other: See Comments PHYSICAL EXAM: BP 144/79 (BP Site: Right Arm, BP Position: Sitting, BP Cuff Size: Regular Adult) Pulse 80 SpO2 97% Gen- no distress Ext- healed venous access site Diagnostic tests reviewed for today's visit: Most recent labs Most recent imaging IMPRESSION: Ms. Healy is a 82 year old female with symptomatic varicose veins . PLAN and RECOMMENDATIONS: Will plan for left leg EVLT Continue compression, elevation and exercise SIGNATURE: Jannie Proctor DO PATIENT NAME: Florecita Healy DATE: July 20, 2023 TIME: 3:53 PM [facility] 07-10-2023 History of Presen t illness Narrative Images from the original note were not included. [facility] DEPARTMENT OF VASCULAR SURGERY OUTPATIENT VISIT DATE July 20, 2023 OUTPATIENT VISIT TYPE ESTABLISHED SERVICE DATE: 07/20/2023 SERVICE TIME: 3:53 PM PRIMARY CARE PHYSICIAN: Tu Canela MD HISTORY OF PRESENT ILLNESS: Ms. Healy is a 82 year old female who presents today for a vascular surgery follow-up visit after her EVLT. She notices improvement on right. She still having symptoms on left. PAST MEDICAL HISTORY Diagnosis Date Abnormal ultrasound of breast 12/02/15 Left Breast cancer of upper-outer quadrant of left female breast (HCC) Chronic obstructive pulmonary disease (COPD) (HCC) Chronic pain 06/03/2012 sees pain management. Diarrhea 11/06/2022 Hyperlipidemia 06/03/2012 Hypertension 06/03/2012 Nausea & vomiting 11/06/2022 Osteopenia Psoriasis Pulmonary nodule Dr. Dawn Sepsis ([facility]) 11/05/2022 Snoring PAST SURGICAL HISTORY Procedure Laterality Date AMPUTATE TOE; IP JOINT BREAST BIOPSY Left 12/02/2015 BX/EXC LYMPH NODE OPEN DEEP AXILLARY NODE Left 05/11/2015 DELIVERY ONLY , low transverse CHOLECYSTECTOMY COLONOSCOPY 05/13/2001 normal COLONOSCOPY 01/02/2007 diverticulosis COLONOSCOPY FLX DX W/COLLJ SPEC WHEN PFRMD 09/04/2013 Colonoscopy COLONOSCOPY FLX DX W/COLLJ SPEC WHEN PFRMD 12/07/2016 Colonoscopy COLONOSCOPY SCREENING 05/30/2022 Dr Borrero 5 year F/U HYSTERECTOMY HX stil has one ovary INCISE FINGER TENDON SHEATH Right INCISE FINGER TENDON SHEATH Right MASTECTOMY, PARTIAL Left 05/11/2015 NEUROPLASTY &/TRANSPOS MEDIAN NRV CARPAL TUNNE Right 08/01/2019 Right carpal tunnel release ORTHOPEDIC SURGERY HX Left 10/11/2017 3rd and 4th trigger finger release PERQ DEVICE PLACEMENT BREAST LOC 1ST LES W/GDNCE Left 05/11/2015 THYROIDECTOMY TOTAL/COMPLETE right sided thyroidectomy due to nodules. were benign XCAPSL CTRC RMVL INSJ IO LENS PROSTH W/O ECP 01/2015 Cataract Extraction with PC IOL SOCIAL HISTORY Social History Tobacco Use Smoking status: Every Day Packs/day: 1.00 Years: 20.00 Additional pack years: 0.00 Total pack years: 20.00 Types: Cigarettes Smokeless tobacco: Never Tobacco comments: Pt has cut back to 1/4 pack daily. Vaping Use Vaping Use: current everyday user Substance Use Topics Alcohol use: No Drug use: No MEDICATIONS: amLODIPine (NORVASC) 10 mg tablet Take 1 tablet by mouth once daily. metoprolol succinate ER (TOPROL XL) 50 mg 24 hr tablet Take 0.5 tablets by mouth once daily. Biotin 10 mg tab Take 1 tablet by mouth once daily. betamethasone dipropionate, augmented (DIPROLENE) 0.05 % cream cyanocobalamin (VITAMIN B-12) 100 mcg tab Take 100 mcg by mouth once daily. levothyroxine (SYNTHROID) 25 mcg tablet Take 1 tablet by mouth once daily. Except 2 tabs by mouth every Sunday and Sunday lisinopril (ZESTRIL) 40 mg tablet Take 1 tablet by mouth once daily. acetaminophen (TYLENOL) 325 mg tablet Take 2 tablets by mouth every 4 hours as needed for pain. pregabalin (LYRICA) 75 mg capsule Take 75 mg by mouth daily at bedtime. cholecalciferol, vitamin D3, (VITAMIN D3 ORAL) Take 2,000 Units by mouth once daily. alpha tocopheryl acetate (VITAMIN E) 400 unit capsule Take 400 Units by mouth once daily. diphenhydrAMINE-Acetaminophen 25-500 mg tab Take 2 tablets by mouth at bedtime as needed. ALLERGIES: ALLERGIES Allergen Reactions Animal Dander Intolerance Darvocet A500 [Prop* Mental Status Change Dust Other: See Comments Grass Pollen Other: See Comments Mold Other: See Comments Soma [Carisoprodol] Swelling, Itching Trees Other: See Comments PHYSICAL EXAM: BP 144/79 (BP Site: Right Arm, BP Position: Sitting, BP Cuff Size: Regular Adult) Pulse 80 SpO2 97% Gen- no distress Ext- healed venous access site Diagnostic tests reviewed for today's visit: Most recent labs Most recent imaging IMPRESSION: Ms. Healy is a 82 year old female with symptomatic varicose veins . PLAN and RECOMMENDATIONS: Will plan for left leg EVLT Continue compression, elevation and exercise SIGNATURE: Jannie Proctor DO PATIENT NAME: Florecita Healy DATE: July 20, 2023 TIME: 3:53 PM documented in this encounter [facility] 07-03-2023 Note HNO ID: [id number] Author: Rosie Syed APRN.GRADUATE TEACHER EDUCATION Service: ? Author Type: Nurse Practitioner Type: Progress Notes Filed: 07/03/2023 5:43 PM Note Text: This is a 82 year old female who presents today with: Patient presents with: Recheck: 1 month follow up HISTORY OF PRESENT ILLNESS: Florecita Healy is a 82 year old female. Patient presents with: Recheck: 1 month follow up Pt presents today for follow-up of blood pressure. At our last visit, we increased the amlodipine and decreased the metoprolol. Refers things are going good (until the temperature and humidity goes up and then she will have more swelling.). HTN: Patient is compliant with meds Yes Monitors bp at home: Yes. 110-120s/ 80's sometimes up to 150's. Denies side effects: yes. Chest pain: No Dyspnea: Yes - d/t smoking. Edema: Yes. Palpitations: No. Syncope: No. Headache: No. Dizziness: No. PAST MEDICAL HISTORY: PAST MEDICAL HISTORY Diagnosis Date Abnormal ultrasound of breast 12/02/15 Left Breast cancer of upper-outer quadrant of left female breast (HCC) Chronic obstructive pulmonary disease (COPD) (HCC) Chronic pain 06/03/2012 sees pain management. Diarrhea 11/06/2022 Hyperlipidemia 06/03/2012 Hypertension 06/03/2012 Nausea AND vomiting 11/06/2022 Osteopenia Psoriasis Pulmonary nodule Dr. Dawn Sepsis ([facility]) 11/05/2022 Snoring PAST SURGICAL HISTORY Procedure Laterality Date AMPUTATE TOE; IP JOINT BREAST BIOPSY Left 12/02/2015 BX/EXC LYMPH NODE OPEN DEEP AXILLARY NODE Left 05/11/2015 DELIVERY ONLY , low transverse CHOLECYSTECTOMY COLONOSCOPY 05/13/2001 normal COLONOSCOPY 01/02/2007 diverticulosis COLONOSCOPY FLX DX W/COLLJ SPEC WHEN PFRMD 09/04/2013 Colonoscopy COLONOSCOPY FLX DX W/COLLJ SPEC WHEN PFRMD 12/07/2016 Colonoscopy COLONOSCOPY SCREENING 05/30/2022 Dr Borrero 5 year F/U HYSTERECTOMY HX stil has one ovary INCISE FINGER TENDON SHEATH Right INCISE FINGER TENDON SHEATH Right MASTECTOMY, PARTIAL Left 05/11/2015 NEUROPLASTY AND/TRANSPOS MEDIAN NRV CARPAL TUNNE Right 08/01/2019 Right carpal tunnel release ORTHOPEDIC SURGERY HX Left 10/11/2017 3rd and 4th trigger finger release PERQ DEVICE PLACEMENT BREAST LOC 1ST LES W/GDNCE Left 05/11/2015 THYROIDECTOMY TOTAL/COMPLETE right sided thyroidectomy due to nodules. were benign XCAPSL CTRC RMVL INSJ IO LENS PROSTH W/O ECP 01/2015 Cataract Extraction with PC IOL ALLERGIES Animal Dander, Darvocet A500 [Propoxyphene N-Acetaminophen], Dust, Grass Pollen, Mold, Soma [Carisoprodol], and Trees MEDICATIONS Current Outpatient Medications Medication Sig amLODIPine (NORVASC) 2.5 mg tablet Take 1 tablet by mouth once daily. Take with 5 mg dose for total daily dose of 7.5 mg daily. metoprolol succinate ER (TOPROL XL) 50 mg 24 hr tablet Take 0.5 tablets by mouth once daily. Biotin 10 mg tab Take 1 tablet by mouth once daily. betamethasone dipropionate, augmented (DIPROLENE) 0.05 % cream amLODIPine (NORVASC) 5 mg tablet Take 1 tablet by mouth once daily. cyanocobalamin (VITAMIN B-12) 100 mcg tab Take 100 mcg by mouth once daily. levothyroxine (SYNTHROID) 25 mcg tablet Take 1 tablet by mouth once daily. Except 2 tabs by mouth every Sunday and Sunday lisinopril (ZESTRIL) 40 mg tablet Take 1 tablet by mouth once daily. acetaminophen (TYLENOL) 325 mg tablet Take 2 tablets by mouth every 4 hours as needed for pain. pregabalin (LYRICA) 75 mg capsule Take 75 mg by mouth daily at bedtime. cholecalciferol, vitamin D3, (VITAMIN D3 ORAL) Take 2,000 Units by mouth once daily. alpha tocopheryl acetate (VITAMIN E) 400 unit capsule Take 400 Units by mouth once daily. diphenhydrAMINE-Acetaminophen 25-500 mg tab Take 2 tablets by mouth at bedtime as needed. No current facility-administered medications for this visit. FAMILY HISTORY Problem Relation Age of Onset Heart Father other (Black Lung) Father Arthritis Mother RA other (gallbladder) Mother Diabetes Sister Cancer Sister kidney tumor Cancer Brother lung cancer Social History Tobacco Use Smoking status: Every Day Packs/day: 1.00 Years: 20.00 Additional pack years: 0.00 Total pack years: 20.00 Types: Cigarettes Smokeless tobacco: Never Tobacco comments: Pt has cut back to 1/4 pack daily. Vaping Use Vaping Use: current everyday user Substance Use Topics Alcohol use: No Drug use: No EXAM: BP 146/86 Pulse 66 Resp 16 SpO2 97% PHYSICAL EXAM: General Appearance: Well appearing, alert, in no acute distress, well-hydrated, well nourished.. Skin: Skin color, texture, turgor normal, no suspicious rashes or lesions. Head: Normocephalic, no masses, lesions, tenderness or abnormalities. Eyes: Anicteric sclera. Extraocular movements are intact. . Lungs: Lungs clear to auscultation. No wheezing, rhonchi, rales.. Heart: RRR without murmur, gallop, or rubs. No ectopy. Extremities: No deformities (more content not included)... [facility] 07-03-2023 Instructions Rosie Syed APRN.CNP - 07/03/2023 10:09 AM EDT Increase the amlodipine to 10 mg. Recheck in 1 month. documented in this encounter [facility] 07-03-2023 History of Presen t illness Narrative This is a 82 year old female who presents today with: Patient presents with: Recheck: 1 month follow up HISTORY OF PRESENT ILLNESS: Florecita Healy is a 82 year old female. Patient presents with: Recheck: 1 month follow up Pt presents today for follow-up of blood pressure. At our last visit, we increased the amlodipine and decreased the metoprolol. Refers things are going good (until the temperature and humidity goes up and then she will have more swelling.). HTN: Patient is compliant with meds Yes Monitors bp at home: Yes. 110-120s/ 80's sometimes up to 150's. Denies side effects: yes. Chest pain: No Dyspnea: Yes - d/t smoking. Edema: Yes. Palpitations: No. Syncope: No. Headache: No. Dizziness: No. PAST MEDICAL HISTORY: PAST MEDICAL HISTORY Diagnosis Date Abnormal ultrasound of breast 12/02/15 Left Breast cancer of upper-outer quadrant of left female breast (HCC) Chronic obstructive pulmonary disease (COPD) ([facility]) Chronic pain 06/03/2012 sees pain management. Diarrhea 11/06/2022 Hyperlipidemia 06/03/2012 Hypertension 06/03/2012 Nausea & vomiting 11/06/2022 Osteopenia Psoriasis Pulmonary nodule Dr. Dawn Sepsis ([facility]) 11/05/2022 Snoring PAST SURGICAL HISTORY Procedure Laterality Date AMPUTATE TOE; IP JOINT BREAST BIOPSY Left 12/02/2015 BX/EXC LYMPH NODE OPEN DEEP AXILLARY NODE Left 05/11/2015 DELIVERY ONLY , low transverse CHOLECYSTECTOMY COLONOSCOPY 05/13/2001 normal COLONOSCOPY 01/02/2007 diverticulosis COLONOSCOPY FLX DX W/COLLJ SPEC WHEN PFRMD 09/04/2013 Colonoscopy COLONOSCOPY FLX DX W/COLLJ SPEC WHEN PFRMD 12/07/2016 Colonoscopy COLONOSCOPY SCREENING 05/30/2022 Dr Borrero 5 year F/U HYSTERECTOMY HX stil has one ovary INCISE FINGER TENDON SHEATH Right INCISE FINGER TENDON SHEATH Right MASTECTOMY, PARTIAL Left 05/11/2015 NEUROPLASTY &/TRANSPOS MEDIAN NRV CARPAL TUNNE Right 08/01/2019 Right carpal tunnel release ORTHOPEDIC SURGERY HX Left 10/11/2017 3rd and 4th trigger finger release PERQ DEVICE PLACEMENT BREAST LOC 1ST LES W/GDNCE Left 05/11/2015 THYROIDECTOMY TOTAL/COMPLETE right sided thyroidectomy due to nodules. were benign XCAPSL CTRC RMVL INSJ IO LENS PROSTH W/O ECP 01/2015 Cataract Extraction with PC IOL ALLERGIES Animal Dander, Darvocet A500 [Propoxyphene N-Acetaminophen], Dust, Grass Pollen, Mold, Soma [Carisoprodol], and Trees MEDICATIONS Current Outpatient Medications Medication Sig amLODIPine (NORVASC) 2.5 mg tablet Take 1 tablet by mouth once daily. Take with 5 mg dose for total daily dose of 7.5 mg daily. metoprolol succinate ER (TOPROL XL) 50 mg 24 hr tablet Take 0.5 tablets by mouth once daily. Biotin 10 mg tab Take 1 tablet by mouth once daily. betamethasone dipropionate, augmented (DIPROLENE) 0.05 % cream amLODIPine (NORVASC) 5 mg tablet Take 1 tablet by mouth once daily. cyanocobalamin (VITAMIN B-12) 100 mcg tab Take 100 mcg by mouth once daily. levothyroxine (SYNTHROID) 25 mcg tablet Take 1 tablet by mouth once daily. Except 2 tabs by mouth every Sunday and Sunday lisinopril (ZESTRIL) 40 mg tablet Take 1 tablet by mouth once daily. acetaminophen (TYLENOL) 325 mg tablet Take 2 tablets by mouth every 4 hours as needed for pain. pregabalin (LYRICA) 75 mg capsule Take 75 mg by mouth daily at bedtime. cholecalciferol, vitamin D3, (VITAMIN D3 ORAL) Take 2,000 Units by mouth once daily. alpha tocopheryl acetate (VITAMIN E) 400 unit capsule Take 400 Units by mouth once daily. diphenhydrAMINE-Acetaminophen 25-500 mg tab Take 2 tablets by mouth at bedtime as needed. No current facility-administered medications for this visit. FAMILY HISTORY Problem Relation Age of Onset Heart Father other (Black Lung) Father Arthritis Mother RA other (gallbladder) Mother Diabetes Sister Cancer Sister kidney tumor Cancer Brother lung cancer Social History Tobacco Use Smoking status: Every Day Packs/day: 1.00 Years: 20.00 Additional pack years: 0.00 Total pack years: 20.00 Types: Cigarettes Smokeless tobacco: Never Tobacco comments: Pt has cut back to 1/4 pack daily. Vaping Use Vaping Use: current everyday user Substance Use Topics Alcohol use: No Drug use: No EXAM: BP 146/86 Pulse 66 Resp 16 SpO2 97% PHYSICAL EXAM: General Appearance: Well appearing, alert, in no acute distress, well-hydrated, well nourished.. Skin: Skin color, texture, turgor normal, no suspicious rashes or lesions. Head: Normocephalic, no masses, lesions, tenderness or abnormalities. Eyes: Anicteric sclera. Extraocular movements are intact. . Lungs: Lungs clear to auscultation. No wheezing, rhonchi, rales.. Heart: RRR without murmur, gallop, or rubs. No ectopy. Extremities: No deformities, +1 RLE edema, trace LLE edema. + venous insufficiency . Neurologic: Gait normal. ASSESSMENT/PLAN: 1. Primary hypertension - ICD9: 401.9, ICD10: I10 - Uncontrolled Swelling is stable. Continue the metoprolol. - Increase amlodipine - Recommend home blood pressure monitoring, to bring results to next visit - Encouraged sodium restriction, DASH or Mediterranean diet - Recommend regular aerobic exercise Recheck in 1 month. Discussed treatment plan and patient voices understanding. Patient's questions answered appropriately. Medications and potential side effects were discussed and patient voices understanding. Return to the office as scheduled or as needed for worsening/no improvement. Rosie Syed APRN.GRADUATE TEACHER EDUCATION documented in this encounter [facility] 06-26-2023 Note HNO ID: [id number] Author: Bhupinder Boucher RN Service: ? Author Type: Registered Nurse Type: Progress Notes Filed: 06/26/2023 12:47 PM Note Text: CDM Telephonic Outreach Provider Action/FYI #2 attempt to contact patient. Contacted for: Routine Telephonic Outreach Contact made with patient: No, left message. Bhupinder Boucher RN June 26, 2023 12:46 PM [facility] 06-26-2023 Note Patient Outreach ([facility] [place]) FLORECITA HEALY ([id number]) 1940 F Date Time Provider Department 06/26/23 BHUPINDER BOUCHER [facility] During your visit today, we recorded the following information about you: Bhupinder Boucher, RN 06/26/2023 12:47 PM Signed CDM Telephonic Outreach Provider Action/FYI #2 attempt to contact patient. Contacted for: Routine Telephonic Outreach Contact made with patient: No, left message. Bhupinder Boucher RN June 26, 2023 12:46 PM Allergies As of Date: 06/26/2023 Noted Allergy Reaction ANIMAL DANDER 08/02/2016 5 - Intolerance DARVOCET A500 (PROPOXYPHENE N-SELENE*06/03/2012 1 - Mental Status Change DUST 08/02/2016 14 - Other: See Comments GRASS POLLEN 08/02/2016 14 - Other: See Comments MOLD 08/02/2016 14 - Other: See Comments SOMA (CARISOPRODOL) 06/03/2012 7 - Swelling 9 - Itching TREES 08/02/2016 14 - Other: See Comments Date Reviewed: 05/29/2023 Reviewed by: Olya Acosta LPN - Fully Assessed Reason for Visit: CDM [Other] Cmt: Telephonic Outreach Prescriptions as of 06/26/2023 - amLODIPine (NORVASC) 2.5 mg tablet Take 1 tablet by mouth once daily. Take with 5 mg dose for total daily dose of 7.5 mg daily. - metoprolol succinate ER (TOPROL XL) 50 mg 24 hr tablet Take 0.5 tablets by mouth once daily. - Biotin 10 mg tab Take 1 tablet by mouth once daily. - betamethasone dipropionate, augmented (DIPROLENE) 0.05 % cream - amLODIPine (NORVASC) 5 mg tablet Take 1 tablet by mouth once daily. - cyanocobalamin (VITAMIN B-12) 100 mcg tab Take 100 mcg by mouth once daily. - levothyroxine (SYNTHROID) 25 mcg tablet Take 1 tablet by mouth once daily. Except 2 tabs by mouth every Sunday and Sunday - lisinopril (ZESTRIL) 40 mg tablet Take 1 tablet by mouth once daily. - acetaminophen (TYLENOL) 325 mg tablet Take 2 tablets by mouth every 4 hours as needed for pain. - pregabalin (LYRICA) 75 mg capsule Take 75 mg by mouth daily at bedtime. - cholecalciferol, vitamin D3, (VITAMIN D3 ORAL) Take 2,000 Units by mouth once daily. - alpha tocopheryl acetate (VITAMIN E) 400 unit capsule Take 400 Units by mouth once daily. - diphenhydrAMINE-Acetaminophen 25-500 mg tab Take 2 tablets by mouth at bedtime as needed. Problem List As Of Date 06/26/2023 Noted Resolved Chronic pain [G89.29] 06/03/2012 07/24/2019 Primary hypertension [I10] 06/03/2012 Hyperlipidemia [E78.5] 06/03/2012 History of Jovana thyroiditis [Z86.39] 06/03/2012 Osteoporosis [M81.0] 07/08/2012 08/09/2012 Lung nodules [R91.8] 07/08/2012 Psoriasis [L40.8] 10/18/2012 Eczematous dermatitis [L30.9] 10/18/2012 02/28/2017 Xerosis cutis [L85.3] 10/18/2012 02/28/2017 Pruritus [L29.9] 10/18/2012 02/28/2017 Excoriation [T14.8XXA] 10/18/2012 02/28/2017 Lichenification and lichen simplex chronicus [L*10/18/2012 Malignant neoplasm of upper-outer quadrant of l*05/28/2015 Low back pain [M54.50] 08/06/2015 07/24/2019 Pain in right hip [M25.551] 08/06/2015 07/24/2019 Thoracic back pain [M54.6] 08/06/2015 02/28/2017 Cervicalgia [M54.2] 08/06/2015 02/28/2017 Bilateral ankle pain [M25.571, M25.572] 10/01/2015 02/28/2017 Pain in left shoulder [M25.512] 10/29/2015 02/28/2017 Pain of left thumb [M79.645] 05/05/2016 02/28/2017 Chronic midline low back pain without sciatica *08/23/2016 02/28/2017 Colon cancer screening [Z12.11] 12/07/2016 12/07/2016 Trigger finger, acquired [M65.30] 09/26/2017 07/24/2019 Chronic pain syndrome [G89.4] 09/27/2017 11/28/2018 Acute pain of right shoulder [M25.511] 11/29/2017 11/28/2018 Low back pain radiating to right lower extremit*11/29/2017 07/24/2019 Cervicalgia [M54.2] 03/26/2018 Chronic midline low back pain without sciatica *03/26/2018 07/24/2019 Facet arthritis of lumbar region [M47.816] 11/06/2018 Stage 3a chronic kidney disease (HCC) [N18.31] 01/21/2019 DDD (degenerative disc disease), lumbar [M51.36]02/21/2019 Spinal stenosis of cervical region [M48.02] 04/29/2019 Spinal stenosis of lumbar region with neurogeni*04/29/2019 Chronic pain syndrome [G89.4] 08/25/2019 Pain in left hip [M25.552] 08/25/2019 Pain in right hip [M25.551] 08/25/2019 Left shoulder pain [M25.512] 02/19/2020 Right shoulder pain [M25.511] 02/19/2020 Arthritis of both glenohumeral joints [M19.011,*12/03/2019 Bleeding internal hemorrhoids [K64.8] 06/14/2022 History of colonic polyps [Z86.010] 06/14/2022 Problem [OBS4430] 06/14/2022 Ectatic aorta (HCC) [I77.819] 06/14/2022 Fatty liver [K76.0] 06/14/2022 Sepsis (HCC) [A41.9] 11/05/2022 11/11/2022 Cellulitis of right lower leg [L03.115] 11/06/2022 Urinary retention [R33.9] 11/06/2022 Nausea AND vomiting [R11.2] 11/06/2022 11/11/2022 Diarrhea [R19.7] 11/06/2022 11/11/2022 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 [facility] 06-26-2023 History of Presen t illness Narrative CDM Telephonic Outreach Provider Action/FYI #2 attempt to contact patient. Contacted for: Routine Telephonic Outreach Contact made with patient: No, left message. Bhupinder Boucher RN June 26, 2023 12:46 PM documented in this encounter [facility] 06-25-2023 Note HNO ID: [id number] Author: Bhupinder Boucher RN Service: ? Author Type: Registered Nurse Type: Progress Notes Filed: 06/25/2023 1:57 PM Note Text: CDM Telephonic Outreach Provider Action/FYI #1 attempt to contact patient. Contacted for: Routine Telephonic Outreach Contact made with patient: No, left message. Bhupinder Boucher RN June 25, 2023 1:56 PM [facility] 06-25-2023 Note Patient Outreach ([facility]) FLORECITA HEALY ([id number]) 1940 F Date Time Provider Department 06/25/23 BHUPINDER BOUCHER [facility] During your visit today, we recorded the following information about you: Bhupinder Boucher RN 06/25/2023 1:57 PM Signed CD Telephonic Outreach Provider Action/FYI #1 attempt to contact patient. Contacted for: Routine Telephonic Outreach Contact made with patient: No, left message. Bhupinder Boucher RN June 25, 2023 1:56 PM Allergies As of Date: 06/25/2023 Noted Allergy Reaction ANIMAL DANDER 08/02/2016 5 - Intolerance DARVOCET A500 (PROPOXYPHENE N-SELENE*06/03/2012 1 - Mental Status Change DUST 08/02/2016 14 - Other: See Comments GRASS POLLEN 08/02/2016 14 - Other: See Comments MOLD 08/02/2016 14 - Other: See Comments SOMA (CARISOPRODOL) 06/03/2012 7 - Swelling 9 - Itching TREES 08/02/2016 14 - Other: See Comments Date Reviewed: 05/29/2023 Reviewed by: Olya Acosta LPN - Fully Assessed Reason for Visit: CDM [Other] Cmt: Telephonic Outreach Prescriptions as of 06/25/2023 - amLODIPine (NORVASC) 2.5 mg tablet Take 1 tablet by mouth once daily. Take with 5 mg dose for total daily dose of 7.5 mg daily. - metoprolol succinate ER (TOPROL XL) 50 mg 24 hr tablet Take 0.5 tablets by mouth once daily. - Biotin 10 mg tab Take 1 tablet by mouth once daily. - betamethasone dipropionate, augmented (DIPROLENE) 0.05 % cream - amLODIPine (NORVASC) 5 mg tablet Take 1 tablet by mouth once daily. - cyanocobalamin (VITAMIN B-12) 100 mcg tab Take 100 mcg by mouth once daily. - levothyroxine (SYNTHROID) 25 mcg tablet Take 1 tablet by mouth once daily. Except 2 tabs by mouth every Sunday and Sunday - lisinopril (ZESTRIL) 40 mg tablet Take 1 tablet by mouth once daily. - acetaminophen (TYLENOL) 325 mg tablet Take 2 tablets by mouth every 4 hours as needed for pain. - pregabalin (LYRICA) 75 mg capsule Take 75 mg by mouth daily at bedtime. - cholecalciferol, vitamin D3, (VITAMIN D3 ORAL) Take 2,000 Units by mouth once daily. - alpha tocopheryl acetate (VITAMIN E) 400 unit capsule Take 400 Units by mouth once daily. - diphenhydrAMINE-Acetaminophen 25-500 mg tab Take 2 tablets by mouth at bedtime as needed. Problem List As Of Date 06/25/2023 Noted Resolved Chronic pain [G89.29] 06/03/2012 07/24/2019 Primary hypertension [I10] 06/03/2012 Hyperlipidemia [E78.5] 06/03/2012 History of Jovana thyroiditis [Z86.39] 06/03/2012 Osteoporosis [M81.0] 07/08/2012 08/09/2012 Lung nodules [R91.8] 07/08/2012 Psoriasis [L40.8] 10/18/2012 Eczematous dermatitis [L30.9] 10/18/2012 02/28/2017 Xerosis cutis [L85.3] 10/18/2012 02/28/2017 Pruritus [L29.9] 10/18/2012 02/28/2017 Excoriation [T14.8XXA] 10/18/2012 02/28/2017 Lichenification and lichen simplex chronicus [L*10/18/2012 Malignant neoplasm of upper-outer quadrant of l*05/28/2015 Low back pain [M54.50] 08/06/2015 07/24/2019 Pain in right hip [M25.551] 08/06/2015 07/24/2019 Thoracic back pain [M54.6] 08/06/2015 02/28/2017 Cervicalgia [M54.2] 08/06/2015 02/28/2017 Bilateral ankle pain [M25.571, M25.572] 10/01/2015 02/28/2017 Pain in left shoulder [M25.512] 10/29/2015 02/28/2017 Pain of left thumb [M79.645] 05/05/2016 02/28/2017 Chronic midline low back pain without sciatica *08/23/2016 02/28/2017 Colon cancer screening [Z12.11] 12/07/2016 12/07/2016 Trigger finger, acquired [M65.30] 09/26/2017 07/24/2019 Chronic pain syndrome [G89.4] 09/27/2017 11/28/2018 Acute pain of right shoulder [M25.511] 11/29/2017 11/28/2018 Low back pain radiating to right lower extremit*11/29/2017 07/24/2019 Cervicalgia [M54.2] 03/26/2018 Chronic midline low back pain without sciatica *03/26/2018 07/24/2019 Facet arthritis of lumbar region [M47.816] 11/06/2018 Stage 3a chronic kidney disease (HCC) [N18.31] 01/21/2019 DDD (degenerative disc disease), lumbar [M51.36]02/21/2019 Spinal stenosis of cervical region [M48.02] 04/29/2019 Spinal stenosis of lumbar region with neurogeni*04/29/2019 Chronic pain syndrome [G89.4] 08/25/2019 Pain in left hip [M25.552] 08/25/2019 Pain in right hip [M25.551] 08/25/2019 Left shoulder pain [M25.512] 02/19/2020 Right shoulder pain [M25.511] 02/19/2020 Arthritis of both glenohumeral joints [M19.011,*12/03/2019 Bleeding internal hemorrhoids [K64.8] 06/14/2022 History of colonic polyps [Z86.010] 06/14/2022 Problem [ORF5020] 06/14/2022 Ectatic aorta (HCC) [I77.819] 06/14/2022 Fatty liver [K76.0] 06/14/2022 Sepsis (HCC) [A41.9] 11/05/2022 11/11/2022 Cellulitis of right lower leg [L03.115] 11/06/2022 Urinary retention [R33.9] 11/06/2022 Nausea AND vomiting [R11.2] 11/06/2022 11/11/2022 Diarrhea [R19.7] 11/06/2022 11/11/2022 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 [facility] 06-25-2023 History of Presen t illness Narrative [facility] Telephonic Outreach Provider Action/FYI #1 attempt to contact patient. Contacted for: Routine Telephonic Outreach Contact made with patient: No, left message. Bhupinder Boucher RN June 25, 2023 1:56 PM documented in this encounter [facility] 05-29-2023 Note HNO ID: [id number] Author: Fredi Galicia MD Service: ? Author Type: Physician Type: Progress Notes Filed: 05/29/2023 10:48 AM Note Text: Objective: Saw the patient back on 03/13/2023. She had an incisional hernia just above her pubic bone at that time. Patient states that the area has become less tender and smaller. She is not noticing it as much. She has not had as much problems with constipation. Objective:Blood pressure 136/88, pulse 96, temperature 36.3 ?C (97.3 ?F), height 152.4 cm (5'), weight 70.6 kg (155 lb 9.6 oz), SpO2 99 %. Abdomen is soft small incisional hernia sac with lipomatous tissue in it that is nonreducible. Nontender. Actually feels smaller than it did prior to the original exam. Assessment:Hernia of abdominal wall (primary encounter diagnosis) Plan: At this point I have no surgical interventions planned for her. I have instructed her that if this area becomes larger or becomes more painful we will have to do an incisional hernia repair on her but at the present time I think it is okay for us to observe her. [facility] 05-29-2023 Note HNO ID: [id number] Author: Rosie Syed APRN.[employer]ADU[employer] Service: ? Author Type: Nurse Practitioner Type: Progress Notes Filed: 05/29/2023 1:01 PM Note Text: This is a 82 year old female who presents today with: Patient presents with: Recheck: 1 month follow up HISTORY OF PRESENT ILLNESS: Florecita Healy is a 82 year old female. Patient presents with: Recheck: 1 month follow up Pt presents today for blood pressure follow-up. HTN: Patient is compliant with meds Yes Monitors bp at home: Yes. Denies side effects: No. Chest pain: No. Dyspnea: No. Edema: Yes - not really worse than normal. Palpitations: No. Syncope: No. Headache: No. Dizziness: occasionally - usually when she she doesn't eat. PAST MEDICAL HISTORY: PAST MEDICAL HISTORY Diagnosis Date Abnormal ultrasound of breast 12/02/15 Left Breast cancer of upper-outer quadrant of left female breast ([facility]) Chronic obstructive pulmonary disease (COPD) ([facility]) Chronic pain 06/03/2012 sees pain management. Diarrhea 11/06/2022 Hyperlipidemia 06/03/2012 Hypertension 06/03/2012 Nausea AND vomiting 11/06/2022 Osteopenia Psor[address] Pulmonary nodule Dr. Dawn Sepsis ([facility]) 11/05/2022 Snoring PAST SURGICAL HISTORY Procedure Laterality Date AMPUTATE TOE; IP JOINT BREAST BIOPSY Left 12/02/2015 BX/EXC LYMPH NODE OPEN DEEP AXILLARY NODE Left 05/11/2015 DELIVERY ONLY , low transverse CHOLECYSTECTOMY COLONOSCOPY 05/13/2001 normal COLONOSCOPY 01/02/2007 diverticulosis COLONOSCOPY FLX DX W/COLLJ SPEC WHEN PFRMD 09/04/2013 Colonoscopy COLONOSCOPY FLX DX W/COLLJ SPEC WHEN PFRMD 12/07/2016 Colonoscopy COLONOSCOPY SCREENING 05/30/2022 Dr Borrero 5 year F/U HYSTERECTOMY HX stil has one ovary INCISE FINGER TENDON SHEATH Right INCISE FINGER TENDON SHEATH Right MASTECTOMY, PARTIAL Left 05/11/2015 NEUROPLASTY AND/TRANSPOS MEDIAN NRV CARPAL TUNNE Right 08/01/2019 Right carpal tunnel release ORTHOPEDIC SURGERY HX Left 10/11/2017 3rd and 4th trigger finger release PERQ DEVICE PLACEMENT BREAST LOC 1ST LES W/GDNCE Left 05/11/2015 THYROIDECTOMY TOTAL/COMPLETE right sided thyroidectomy due to nodules. were benign XCAPSL CTRC RMVL INSJ IO LENS PROSTH W/O ECP 01/2015 Cataract Extraction with PC IOL ALLERGIES Animal Dander, Darvocet A500 [Propoxyphene N-Acetaminophen], Dust, Grass Pollen, Mold, Soma [Carisoprodol], and Trees MEDICATIONS Current Outpatient Medications Medication Sig Biotin 10 mg tab Take 1 tablet by mouth once daily. betamethasone dipropionate, augmented (DIPROLENE) 0.05 % cream amLODIPine (NORVASC) 5 mg tablet Take 1 tablet by mouth once daily. cyanocobalamin (VITAMIN B-12) 100 mcg tab Take 100 mcg by mouth once daily. metoprolol succinate ER (TOPROL XL) 50 mg 24 hr tablet Take 1 tablet by mouth once daily. levothyroxine (SYNTHROID) 25 mcg tablet Take 1 tablet by mouth once daily. Except 2 tabs by mouth every Sunday and Sunday lisinopril (ZESTRIL) 40 mg tablet Take 1 tablet by mouth once daily. acetaminophen (TYLENOL) 325 mg tablet Take 2 tablets by mouth every 4 hours as needed for pain. pregabalin (LYRICA) 75 mg capsule Take 75 mg by mouth daily at bedtime. cholecalciferol, vitamin D3, (VITAMIN D3 ORAL) Take 2,000 Units by mouth once daily. alpha tocopheryl acetate (VITAMIN E) 400 unit capsule Take 400 Units by mouth once daily. diphenhydrAMINE-Acetaminophen 25-500 mg tab Take 2 tablets by mouth at bedtime as needed. No current facility-administered medications for this visit. FAMILY HISTORY Problem Relation Age of Onset Heart Father other (Black Lung) Father Arthritis Mother RA other (gallbladder) Mother Diabetes Sister Cancer Sister kidney tumor Cancer Brother lung cancer Social History Tobacco Use Smoking status: Every Day Packs/day: 1.00 Years: 20.00 Total pack years: 20.00 Types: Cigarettes Smokeless tobacco: Never Tobacco comments: Pt has cut back to 1/4 pack daily. Substance Use Topics Alcohol use: No Drug use: No EXAM: BP 158/90 Pulse 87 Resp 16 SpO2 97% 153/79 PHYSICAL EXAM: General Appearance: Well appearing, alert, in no acute distress, well-hydrated, well nourished.. Skin: Skin color, texture, turgor normal, no suspicious rashes or lesions. Head: Normocephalic, no masses, lesions, tenderness or abnormalities. Eyes: Anicteric sclera. Pupils are equally round and reactive to light. Extraocular movements are intact. . Lungs: Lungs clear to auscultation. No wheezing, rhonchi, rales.. Heart: RRR without murmur, gallop, or rubs. No ectopy. Extremities: + venous insufficiency. +1 LE swelling R>L. Discoloration of LE - R>L. Neurologic: Gait normal. Reflexes normal and symmetric. Sensation grossly intact.. ASSESSMENT/PLAN: 1. Primary hypertension - ICD9: 401.9, ICD10: I10 - Uncontrolled Feels that amlodipine had the best effect on her blood pressure. Doesn't like the metoprolol, a (more content not included)... [facility] 05-29-2023 History of Presen t illness Narrative Objective: Saw the patient back on 03/13/2023. She had an incisional hernia just above her pubic bone at that time. Patient states that the area has become less tender and smaller. She is not noticing it as much. She has not had as much problems with constipation. Objective:Blood pressure 136/88, pulse 96, temperature 36.3 C (97.3 F), height 152.4 cm (5'), weight 70.6 kg (155 lb 9.6 oz), SpO2 99 %. Abdomen is soft small incisional hernia sac with lipomatous tissue in it that is nonreducible. Nontender. Actually feels smaller than it did prior to the original exam. Assessment:Hernia of abdominal wall (primary encounter diagnosis) Plan: At this point I have no surgical interventions planned for her. I have instructed her that if this area becomes larger or becomes more painful we will have to do an incisional hernia repair on her but at the present time I think it is okay for us to observe her. documented in this encounter [facility] 05-29-2023 Instructions Rosie Syed APRN.KAITLYN - 05/29/2023 9:50 AM EDT Add amlodipine 2.5 mg to the 5 mg dose. Go ahead and decrease the metoprolol to 1/2 pill daily. Recheck in 1 month. documented in this encounter [facility] 05-29-2023 History of Presen t illness Narrative This is a 82 year old female who presents today with: Patient presents with: Recheck: 1 month follow up HISTORY OF PRESENT ILLNESS: Florecita Healy is a 82 year old female. Patient presents with: Recheck: 1 month follow up Pt presents today for blood pressure follow-up. HTN: Patient is compliant with meds Yes Monitors bp at home: Yes. Denies side effects: No. Chest pain: No. Dyspnea: No. Edema: Yes - not really worse than normal. Palpitations: No. Syncope: No. Headache: No. Dizziness: occasionally - usually when she she doesn't eat. PAST MEDICAL HISTORY: PAST MEDICAL HISTORY Diagnosis Date Abnormal ultrasound of breast 12/02/15 Left Breast cancer of upper-outer quadrant of left female breast ([facility]) Chronic obstructive pulmonary disease (COPD) ([facility]) Chronic pain 06/03/2012 sees pain management. Diarrhea 11/06/2022 Hyperlipidemia 06/03/2012 Hypertension 06/03/2012 Nausea & vomiting 11/06/2022 Osteopenia Psoriasis Pulmonary nodule Dr. Dawn Sepsis ([facility]) 11/05/2022 Snoring PAST SURGICAL HISTORY Procedure Laterality Date AMPUTATE TOE; IP JOINT BREAST BIOPSY Left 12/02/2015 BX/EXC LYMPH NODE OPEN DEEP AXILLARY NODE Left 05/11/2015 DELIVERY ONLY , low transverse CHOLECYSTECTOMY COLONOSCOPY 05/13/2001 normal COLONOSCOPY 01/02/2007 diverticulosis COLONOSCOPY FLX DX W/COLLJ SPEC WHEN PFRMD 09/04/2013 Colonoscopy COLONOSCOPY FLX DX W/COLLJ SPEC WHEN PFRMD 12/07/2016 Colonoscopy COLONOSCOPY SCREENING 05/30/2022 Dr Borrero 5 year F/U HYSTERECTOMY HX stil has one ovary INCISE FINGER TENDON SHEATH Right INCISE FINGER TENDON SHEATH Right MASTECTOMY, PARTIAL Left 05/11/2015 NEUROPLASTY &/TRANSPOS MEDIAN NRV CARPAL TUNNE Right 08/01/2019 Right carpal tunnel release ORTHOPEDIC SURGERY HX Left 10/11/2017 3rd and 4th trigger finger release PERQ DEVICE PLACEMENT BREAST LOC 1ST LES W/GDNCE Left 05/11/2015 THYROIDECTOMY TOTAL/COMPLETE right sided thyroidectomy due to nodules. were benign XCAPSL CTRC RMVL INSJ IO LENS PROSTH W/O ECP 01/2015 Cataract Extraction with PC IOL ALLERGIES Animal Dander, Darvocet A500 [Propoxyphene N-Acetaminophen], Dust, Grass Pollen, Mold, Soma [Carisoprodol], and Trees MEDICATIONS Current Outpatient Medications Medication Sig Biotin 10 mg tab Take 1 tablet by mouth once daily. betamethasone dipropionate, augmented (DIPROLENE) 0.05 % cream amLODIPine (NORVASC) 5 mg tablet Take 1 tablet by mouth once daily. cyanocobalamin (VITAMIN B-12) 100 mcg tab Take 100 mcg by mouth once daily. metoprolol succinate ER (TOPROL XL) 50 mg 24 hr tablet Take 1 tablet by mouth once daily. levothyroxine (SYNTHROID) 25 mcg tablet Take 1 tablet by mouth once daily. Except 2 tabs by mouth every Sunday and Sunday lisinopril (ZESTRIL) 40 mg tablet Take 1 tablet by mouth once daily. acetaminophen (TYLENOL) 325 mg tablet Take 2 tablets by mouth every 4 hours as needed for pain. pregabalin (LYRICA) 75 mg capsule Take 75 mg by mouth daily at bedtime. cholecalciferol, vitamin D3, (VITAMIN D3 ORAL) Take 2,000 Units by mouth once daily. alpha tocopheryl acetate (VITAMIN E) 400 unit capsule Take 400 Units by mouth once daily. diphenhydrAMINE-Acetaminophen 25-500 mg tab Take 2 tablets by mouth at bedtime as needed. No current facility-administered medications for this visit. FAMILY HISTORY Problem Relation Age of Onset Heart Father other (Black Lung) Father Arthritis Mother RA other (gallbladder) Mother Diabetes Sister Cancer Sister kidney tumor Cancer Brother lung cancer Social History Tobacco Use Smoking status: Every Day Packs/day: 1.00 Years: 20.00 Total pack years: 20.00 Types: Cigarettes Smokeless tobacco: Never Tobacco comments: Pt has cut back to 1/4 pack daily. Substance Use Topics Alcohol use: No Drug use: No EXAM: BP 158/90 Pulse 87 Resp 16 SpO2 97% 153/79 PHYSICAL EXAM: General Appearance: Well appearing, alert, in no acute distress, well-hydrated, well nourished.. Skin: Skin color, texture, turgor normal, no suspicious rashes or lesions. Head: Normocephalic, no masses, lesions, tenderness or abnormalities. Eyes: Anicteric sclera. Pupils are equally round and reactive to light. Extraocular movements are intact. . Lungs: Lungs clear to auscultation. No wheezing, rhonchi, rales.. Heart: RRR without murmur, gallop, or rubs. No ectopy. Extremities: + venous insufficiency. +1 LE swelling R>L. Discoloration of LE - R>L. Neurologic: Gait normal. Reflexes normal and symmetric. Sensation grossly intact.. ASSESSMENT/PLAN: 1. Primary hypertension - ICD9: 401.9, ICD10: I10 - Uncontrolled Feels that amlodipine had the best effect on her blood pressure. Doesn't like the metoprolol, as feels that this actually worsens swelling. Will increase amlodipine to 7.5 mg daily. Decrease metoprolol to 25 mg daily. - Recommend home blood pressure monitoring, to bring results to next visit - METOPROLOL SUCCINATE ER 50 MG TABLET,EXTENDED RELEASE 24 HR Recheck in 1 month. Discussed treatment plan and patient voices understanding. Patient's questions answered appropriately. Medications and potential side effects were discussed and patient voices understanding. Return to the office as scheduled or as needed for worsening/no improvement. Rosie Syed APRN.GRADUATE TEACHER EDUCATION documented in this encounter [facility] 05-29-2023 Nurse Note Pt brought in home BP cuff. Reading in office per home wrist cuff was 138/74. documented in this encounter [facility] 05-23-2023 Note Patient Outreach ([facility]) FLORECITA HEALY ([id number]) 1940 F Date Time Provider Department 05/23/23 BHUPINDER BOUCHER During your visit today, we recorded the following information about you: Bhupinder Boucher RN 05/23/2023 10:26 AM Signed CDM Telephonic Outreach Provider Action/FYI #2 attempt to contact patient. Contacted for: Routine Telephonic Outreach Contact made with patient: No, left message. Bhupinder Bouhcer RN May 23, 2023 10:25 AM Allergies As of Date: 05/23/2023 Noted Allergy Reaction ANIMAL DANDER 08/02/2016 5 - Intolerance DARVOCET A500 (PROPOXYPHENE N-SELENE*06/03/2012 1 - Mental Status Change DUST 08/02/2016 14 - Other: See Comments GRASS POLLEN 08/02/2016 14 - Other: See Comments MOLD 08/02/2016 14 - Other: See Comments SOMA (CARISOPRODOL) 06/03/2012 7 - Swelling 9 - Itching TREES 08/02/2016 14 - Other: See Comments Date Reviewed: 05/11/2023 Reviewed by: Yue Reyes - Fully Assessed Reason for Visit: CDM [Other] Cmt: Telephonic Outreach Prescriptions as of 05/23/2023 - Biotin 10 mg tab Take 1 tablet by mouth once daily. - betamethasone dipropionate, augmented (DIPROLENE) 0.05 % cream - amLODIPine (NORVASC) 5 mg tablet Take 1 tablet by mouth once daily. - cyanocobalamin (VITAMIN B-12) 100 mcg tab Take 100 mcg by mouth once daily. - metoprolol succinate ER (TOPROL XL) 50 mg 24 hr tablet Take 1 tablet by mouth once daily. - levothyroxine (SYNTHROID) 25 mcg tablet Take 1 tablet by mouth once daily. Except 2 tabs by mouth every Sunday and Sunday - lisinopril (ZESTRIL) 40 mg tablet Take 1 tablet by mouth once daily. - acetaminophen (TYLENOL) 325 mg tablet Take 2 tablets by mouth every 4 hours as needed for pain. - pregabalin (LYRICA) 75 mg capsule Take 75 mg by mouth daily at bedtime. - cholecalciferol, vitamin D3, (VITAMIN D3 ORAL) Take 2,000 Units by mouth once daily. - alpha tocopheryl acetate (VITAMIN E) 400 unit capsule Take 400 Units by mouth once daily. - diphenhydrAMINE-Acetaminophen 25-500 mg tab Take 2 tablets by mouth at bedtime as needed. Problem List As Of Date 05/23/2023 Noted Resolved Chronic pain [G89.29] 06/03/2012 07/24/2019 Primary hypertension [I10] 06/03/2012 Hyperlipidemia [E78.5] 06/03/2012 History of Jovana thyroiditis [Z86.39] 06/03/2012 Osteoporosis [M81.0] 07/08/2012 08/09/2012 Lung nodules [R91.8] 07/08/2012 Psoriasis [L40.8] 10/18/2012 Eczematous dermatitis [L30.9] 10/18/2012 02/28/2017 Xerosis cutis [L85.3] 10/18/2012 02/28/2017 Pruritus [L29.9] 10/18/2012 02/28/2017 Excoriation [T14.8XXA] 10/18/2012 02/28/2017 Lichenification and lichen simplex chronicus [L*10/18/2012 Malignant neoplasm of upper-outer quadrant of l*05/28/2015 Low back pain [M54.50] 08/06/2015 07/24/2019 Pain in right hip [M25.551] 08/06/2015 07/24/2019 Thoracic back pain [M54.6] 08/06/2015 02/28/2017 Cervicalgia [M54.2] 08/06/2015 02/28/2017 Bilateral ankle pain [M25.571, M25.572] 10/01/2015 02/28/2017 Pain in left shoulder [M25.512] 10/29/2015 02/28/2017 Pain of left thumb [M79.645] 05/05/2016 02/28/2017 Chronic midline low back pain without sciatica *08/23/2016 02/28/2017 Colon cancer screening [Z12.11] 12/07/2016 12/07/2016 Trigger finger, acquired [M65.30] 09/26/2017 07/24/2019 Chronic pain syndrome [G89.4] 09/27/2017 11/28/2018 Acute pain of right shoulder [M25.511] 11/29/2017 11/28/2018 Low back pain radiating to right lower extremit*11/29/2017 07/24/2019 Cervicalgia [M54.2] 03/26/2018 Chronic midline low back pain without sciatica *03/26/2018 07/24/2019 Facet arthritis of lumbar region [M47.816] 11/06/2018 Stage 3a chronic kidney disease (HCC) [N18.31] 01/21/2019 DDD (degenerative disc disease), lumbar [M51.36]02/21/2019 Spinal stenosis of cervical region [M48.02] 04/29/2019 Spinal stenosis of lumbar region with neurogeni*04/29/2019 Chronic pain syndrome [G89.4] 08/25/2019 Pain in left hip [M25.552] 08/25/2019 Pain in right hip [M25.551] 08/25/2019 Left shoulder pain [M25.512] 02/19/2020 Right shoulder pain [M25.511] 02/19/2020 Arthritis of both glenohumeral joints [M19.011,*12/03/2019 Bleeding internal hemorrhoids [K64.8] 06/14/2022 History of colonic polyps [Z86.010] 06/14/2022 Problem [DCA8813] 06/14/2022 Ectatic aorta (HCC) [I77.819] 06/14/2022 Fatty liver [K76.0] 06/14/2022 Sepsis (HCC) [A41.9] 11/05/2022 11/11/2022 Cellulitis of right lower leg [L03.115] 11/06/2022 Urinary retention [R33.9] 11/06/2022 Nausea AND vomiting [R11.2] 11/06/2022 11/11/2022 Diarrhea [R19.7] 11/06/2022 11/11/2022 Postoperative hypothyroidism [E89.0] 11/06/2022 Vaginitis due to Callie [B37.31] 11/11/2022 Nicotine use disorder, F17.2 [F17.200] 11/14/2022 Venous insufficiency [I87.2] 03/02/2023 Encounter Status:Closed by BHUPINDER BOUCHER on 05/23/23 [facility] 05-23-2023 Note HNO ID: [id number] Author: Bhupinder Boucher RN Service: ? Author Type: Registered Nurse Type: Progress Notes Filed: 05/23/2023 10:26 AM Note Text: [facility] Telephonic Outreach Provider Action/FYI #2 attempt to contact patient. Contacted for: Routine Telephonic Outreach Contact made with patient: No, left message. Bhupinder Boucher RN May 23, 2023 10:25 AM [facility] 05-23-2023 History of Presen t illness Narrative [facility] Telephonic Outreach Provider Action/FYI #2 attempt to contact patient. Contacted for: Routine Telephonic Outreach Contact made with patient: No, left message. Bhupinder Boucher RN May 23, 2023 10:25 AM documented in this encounter [facility] 05-22-2023 Note Patient Outreach ([facility] [place]) FLORECITA HEALY ([id number]) 1940 F Date Time Provider Department 05/22/23 BHUPINDER BOUCHER During your visit today, we recorded the following information about you: Bhupinder Boucher RN 05/22/2023 11:58 AM Signed [facility] Telephonic Outreach Provider Action/FYI #1 attempt to contact patient. Contacted for: Routine Telephonic Outreach Contact made with patient: No, left message. Bhupinder Boucher RN May 22, 2023 11:57 AM Allergies As of Date: 05/22/2023 Noted Allergy Reaction ANIMAL DANDER 08/02/2016 5 - Intolerance DARVOCET A500 (PROPOXYPHENE N-SELENE*06/03/2012 1 - Mental Status Change DUST 08/02/2016 14 - Other: See Comments GRASS POLLEN 08/02/2016 14 - Other: See Comments MOLD 08/02/2016 14 - Other: See Comments SOMA (CARISOPRODOL) 06/03/2012 7 - Swelling 9 - Itching TREES 08/02/2016 14 - Other: See Comments Date Reviewed: 05/11/2023 Reviewed by: Yue Reyes - Fully Assessed Reason for Visit: CDM [Other] Cmt: Telephonic Outreach Prescriptions as of 05/22/2023 - Biotin 10 mg tab Take 1 tablet by mouth once daily. - betamethasone dipropionate, augmented (DIPROLENE) 0.05 % cream - amLODIPine (NORVASC) 5 mg tablet Take 1 tablet by mouth once daily. - cyanocobalamin (VITAMIN B-12) 100 mcg tab Take 100 mcg by mouth once daily. - metoprolol succinate ER (TOPROL XL) 50 mg 24 hr tablet Take 1 tablet by mouth once daily. - levothyroxine (SYNTHROID) 25 mcg tablet Take 1 tablet by mouth once daily. Except 2 tabs by mouth every Sunday and Sunday - lisinopril (ZESTRIL) 40 mg tablet Take 1 tablet by mouth once daily. - acetaminophen (TYLENOL) 325 mg tablet Take 2 tablets by mouth every 4 hours as needed for pain. - pregabalin (LYRICA) 75 mg capsule Take 75 mg by mouth daily at bedtime. - cholecalciferol, vitamin D3, (VITAMIN D3 ORAL) Take 2,000 Units by mouth once daily. - alpha tocopheryl acetate (VITAMIN E) 400 unit capsule Take 400 Units by mouth once daily. - diphenhydrAMINE-Acetaminophen 25-500 mg tab Take 2 tablets by mouth at bedtime as needed. Problem List As Of Date 05/22/2023 Noted Resolved Chronic pain [G89.29] 06/03/2012 07/24/2019 Primary hypertension [I10] 06/03/2012 Hyperlipidemia [E78.5] 06/03/2012 History of Jovana thyroiditis [Z86.39] 06/03/2012 Osteoporosis [M81.0] 07/08/2012 08/09/2012 Lung nodules [R91.8] 07/08/2012 Psoriasis [L40.8] 10/18/2012 Eczematous dermatitis [L30.9] 10/18/2012 02/28/2017 Xerosis cutis [L85.3] 10/18/2012 02/28/2017 Pruritus [L29.9] 10/18/2012 02/28/2017 Excoriation [T14.8XXA] 10/18/2012 02/28/2017 Lichenification and lichen simplex chronicus [L*10/18/2012 Malignant neoplasm of upper-outer quadrant of l*05/28/2015 Low back pain [M54.50] 08/06/2015 07/24/2019 Pain in right hip [M25.551] 08/06/2015 07/24/2019 Thoracic back pain [M54.6] 08/06/2015 02/28/2017 Cervicalgia [M54.2] 08/06/2015 02/28/2017 Bilateral ankle pain [M25.571, M25.572] 10/01/2015 02/28/2017 Pain in left shoulder [M25.512] 10/29/2015 02/28/2017 Pain of left thumb [M79.645] 05/05/2016 02/28/2017 Chronic midline low back pain without sciatica *08/23/2016 02/28/2017 Colon cancer screening [Z12.11] 12/07/2016 12/07/2016 Trigger finger, acquired [M65.30] 09/26/2017 07/24/2019 Chronic pain syndrome [G89.4] 09/27/2017 11/28/2018 Acute pain of right shoulder [M25.511] 11/29/2017 11/28/2018 Low back pain radiating to right lower extremit*11/29/2017 07/24/2019 Cervicalgia [M54.2] 03/26/2018 Chronic midline low back pain without sciatica *03/26/2018 07/24/2019 Facet arthritis of lumbar region [M47.816] 11/06/2018 Stage 3a chronic kidney disease (HCC) [N18.31] 01/21/2019 DDD (degenerative disc disease), lumbar [M51.36]02/21/2019 Spinal stenosis of cervical region [M48.02] 04/29/2019 Spinal stenosis of lumbar region with neurogeni*04/29/2019 Chronic pain syndrome [G89.4] 08/25/2019 Pain in left hip [M25.552] 08/25/2019 Pain in right hip [M25.551] 08/25/2019 Left shoulder pain [M25.512] 02/19/2020 Right shoulder pain [M25.511] 02/19/2020 Arthritis of both glenohumeral joints [M19.011,*12/03/2019 Bleeding internal hemorrhoids [K64.8] 06/14/2022 History of colonic polyps [Z86.010] 06/14/2022 Problem [MEX3279] 06/14/2022 Ectatic aorta (HCC) [I77.819] 06/14/2022 Fatty liver [K76.0] 06/14/2022 Sepsis (HCC) [A41.9] 11/05/2022 11/11/2022 Cellulitis of right lower leg [L03.115] 11/06/2022 Urinary retention [R33.9] 11/06/2022 Nausea AND vomiting [R11.2] 11/06/2022 11/11/2022 Diarrhea [R19.7] 11/06/2022 11/11/2022 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 Author Type: Registered Nurse Type: Progress Notes Filed: 05/22/2023 11:58 AM Note Text: [facility] Telephonic Outreach Provider Action/FYI #1 attempt to contact patient. Contacted for: Routine Telephonic Outreach Contact made with patient: No, left message. Bhupinder Boucher RN May 22, 2023 11:57 AM [facility] 05-22-2023 History of Presen t illness Narrative [facility] Telephonic Outreach Provider Action/FYI #1 attempt to contact patient. Contacted for: Routine Telephonic Outreach Contact made with patient: No, left message. Bhupinder Boucher RN May 22, 2023 11:57 AM documented in this encounter [facility] 05-11-2023 Note HNO ID: [id number] Author: Jannie Proctor DO Service: ? Author Type: Physician Type: Progress Notes Filed: 05/11/2023 5:08 PM Note Text: Date and Start/End times of Surgery: May 11, 2023 Surgeon: Jannie Proctor DO Rig Superintendent(s): Rodney Newton Procedure(s): EVLT ablation of the right great saphenous vein Anesthesia: Local with 1% lidocaine, and tumescence anesthesia using 40 cc of 1% lidocaine + 20 cc of 8.4% sodium bicarbonate in 1000 cc of normal saline Preoperative Diagnosis: Symptomatic varicose veins right leg. Postoperative Diagnoses: Symptomatic varicose veins right leg. Operative Indications: The patient is a 82 year old female with painful varicose veins, especially on the right leg. Noninvasive vascular laboratory studies revealed valvular incompetence in the right great saphenous vein. Options of therapy were discussed. She elected to proceed with surgery. Operative Findings: Varicose veins right leg. Procedure Narrative: The patient was seen in the preoperative area, consent was obtained, and 0.5 mg of xanax was given po. She was then taken to the procedure room and placed in supine position. The patient's right lower extremity was prepped with chloraprep and draped in the usual sterile fashion. Attention was first directed to the saphenous vein just below the knee. Local anesthesia was obtained by injecting Lidocaine 1%. Under ultrasound guidance, the saphenous vein was accessed using the Micro-Access set. A 0.035 inch wire was passed through the sheath to the level of the saphenofemoral junction. The sheath was removed, and a 4-Liberian sheath and dilator were passed over the guidewire to the level of the saphenofemoral junction. The guidewire and dilator were removed and the [employer] EVLT gold-tipped laser fiber was passed through the sheath to the level of the saphenofemoral junction. The laser fiber was secured to the sheath. Under ultrasound guidance, the tip of the laser fiber was positioned approximately 3 cm distal to the saphenofemoral junction and just distal to the entrance of the superficial epigastric vein. Under ultrasound guidance, tumescence solution was injected into the fascial sheath containing the saphenous vein. The tumescence solution consisted of normal saline, lidocaine, and sodium bicarbonate. A total of 300 mL was injected. The laser power was then set at 7 reynolds. The laser was energized and withdrawn at a rate of 1 cm per 9 seconds for the first several cm. Then, the rate of withdrawal was increased to 1 cm per 6 seconds for the remainder of the 41 cm treated. A total of 1702 joules were delivered over 243 seconds to the 41 cm of vein treated. This averaged 41 joules per cm. The sheath and laser fiber were removed. Pressure was held at the site of catheter insertion for 3 minutes. The vein was again interrogated using duplex ultrasound. The vein was completely collapsed and the cabello were thickened. A Tegaderm was applied to the catheter insertion site. Neptali hose and compression selene wrap applied. Surgeon/Practitioner Performing Venous Access: Jannie Proctor DO Surgeon/Practitioner Performing Ablation: Jannie Proctor DO Estimated Blood Loss: none Drains: none Prosthetic Devices, Grafts, or Implants: none Specimens: none Complications: none [facility] 05-08-2023 Miscellaneous Notes Spoke with patient regarding procedure Sunday, She would like calming medication sent to the pharmacy ( [facility]). She son will drive her. She denies any further questions. documented in this encounter [facility] 05-08-2023 Note HNO ID: [id number] Author: Rc Rodriguez MD Service: ? Author Type: Physician Type: Progress Notes Filed: 05/08/2023 2:54 PM Note Text: INFECTIOUS DISEASE WOUND CENTER NOTE Patient Name: Florecita Healy Date: 05/08/2023 ASSESSMENT: Cellulitis, RLE COPD Hypertension Hyperlipidemia Breast cancer Chronic pain (pain management) Psoriasis Osteopenia PLAN: Continue to monitor off antibiotics Monitor for signs of infection. These were discussed in details with her Compression compliance emphasized. Tubigrip's prescribed Vascular surgery follow-up has been scheduled Edema management discussed Noted plans for surgery for venous insufficiency in the near future Follow-up with infectious disease at the wound center in 3 months per patient's wishes and she wants to continue to follow-up with me sporadically INTERVAL HISTORY: ROS done with pt and negative unless stated. No warmth or drainage from the legs however developed small patchy areas of contact dermatitis and was prescribed topical betamethasone for this. She is using that twice daily. No fevers or chills. No pain. Blood pressure medications were changed to Norvasc and has led to some swelling in the feet. She is scheduled to undergo vascular surgery in the near future with Dr. Proctor MEDICATIONS: amLODIPine (NORVASC) 5 mg tablet Take 1 tablet by mouth once daily. cyanocobalamin (VITAMIN B-12) 100 mcg tab Take 100 mcg by mouth once daily. metoprolol succinate ER (TOPROL XL) 50 mg 24 hr tablet Take 1 tablet by mouth once daily. levothyroxine (SYNTHROID) 25 mcg tablet Take 1 tablet by mouth once daily. Except 2 tabs by mouth every Sunday and Sunday lisinopril (ZESTRIL) 40 mg tablet Take 1 tablet by mouth once daily. acetaminophen (TYLENOL) 325 mg tablet Take 2 tablets by mouth every 4 hours as needed for pain. pregabalin (LYRICA) 75 mg capsule Take 75 mg by mouth daily at bedtime. cholecalciferol, vitamin D3, (VITAMIN D3 ORAL) Take 2,000 Units by mouth once daily. alpha tocopheryl acetate (VITAMIN E) 400 unit capsule Take 400 Units by mouth once daily. diphenhydrAMINE-Acetaminophen 25-500 mg tab Take 2 tablets by mouth at bedtime as needed. PHYSICAL EXAM: Vital signs: stable, afeb General: alert, oriented, NAD Lungs: bilaterally clear to auscultation Heart: regular rate and rhythm Abdomen: soft, non tender, non distended, BS+ Extremities: no swollen joints Skin: no rash Segment of chronic venous stasis dermatitis without any signs of infection. Small patches of contact dermatitis on the left leg and the right dorsal foot. Lab data: reviewed WBC (k/uL) Date Value 02/27/2023 5.38 11/13/2022 4.94 11/12/2022 4.30 11/01/2021 4.45 04/01/2021 5.25 03/08/2020 5.79 Hemoglobin (g/dL) Date Value 02/27/2023 12.6 11/13/2022 10.1 11/12/2022 9.7 11/01/2021 12.9 04/01/2021 12.4 03/08/2020 12.2 INR (no units) Date Value 11/05/2022 1.0 Sodium (mmol/L) Date Value 02/27/2023 142 11/13/2022 137 11/12/2022 136 11/01/2021 139 04/01/2021 141 03/08/2020 143 Potassium (mmol/L) Date Value 02/27/2023 3.8 11/13/2022 4.7 11/12/2022 4.2 11/01/2021 4.1 04/01/2021 4.0 03/08/2020 3.8 CO2 (mmol/L) Date Value 02/27/2023 23 11/13/2022 28 11/12/2022 25 11/01/2021 24 04/01/2021 25 03/08/2020 22 BUN (mg/dL) Date Value 02/27/2023 14 11/13/2022 12 11/12/2022 11 11/01/2021 16 04/01/2021 16 03/08/2020 17 Creatinine (mg/dL) Date Value 02/27/2023 1.02 11/13/2022 1.00 11/12/2022 0.83 11/01/2021 0.96 04/01/2021 1.00 03/08/2020 0.99 AST (U/L) Date Value 02/27/2023 12 11/05/2022 17 11/01/2021 13 04/01/2021 14 03/08/2020 16 ALT (U/L) Date Value 02/27/2023 10 11/05/2022 11 11/01/2021 9 04/01/2021 8 03/08/2020 9 Bilirubin, Total (mg/dL) Date Value 02/27/2023 0.8 11/05/2022 1.2 11/01/2021 0.6 04/01/2021 0.6 03/08/2020 0.6 Alkaline Phosphatase (U/L) Date Value 02/27/2023 96 11/05/2022 85 11/01/2021 103 04/01/2021 94 03/08/2020 98 WSR (mm/hr) Date Value 08/02/2016 8 06/04/2015 4 06/23/2013 8 12/26/2012 2 Sed Rate, Westergren (mm/hr) Date Value 11/05/2022 46 Lactate (mmol/L) Date Value 11/05/2022 1.0 11/05/2022 2.3 Sepsis Lactate (mmol/L) Date Value 11/06/2022 1.3 11/05/2022 2.2 Vancomycin (ug/mL) Date Value 11/08/2022 8.2 Microbiology data: reviewed Imaging data: reviewed Rc Rodriguez MD Pager: [facility] 05-08-2023 Instructions Rosmery Acharya RN - 05/08/2023 1:06 PM EDT WOUND CARE INSTRUCTIONS- Florecita Healy Wound location: Right top of foot Continue wearing tubi-summer associate size E to the leg every day. Apply your betamethasone cream twice a day to rashy area right lower leg FOR COMPRESSION WRAPS: SELENE bandage. 4 SELENE to the foot from toes to the ankle, 6 SELENE to the leg from the ankle to the knee. Remove compression wraps before showering. Remove compression wraps if they become uncomfortable or cause change in color or sensation to the extremity. Rewrap as instructed. Regarding lymphedema/edema: Elevation of extremity above the heart for 30 minutes three times daily and as needed Exercise such as writing the ABC's with your toes in the air, walking and/or calf pumps Wearing compression as ordered by provider Diet controlling of sodium as instructed by provider Use of medication to help control edema. You may remove the SELENE at night for a rest but please put the SELENE bandage on in the morning before your foot swells. To give your wound the best chance to heal: - Eat three balanced meals daily focusing on the protein - Control swelling by elevating the extremity above your heart - exercise the extremity - Control your blood sugar. Keep blood sugar less than 200 - Complete your wound care instructions - Vitamin C 500 mg twice daily - Multiple Vitamin Daily - Drink a protein shake daily Report any of the following changes to the Wound Center at [phone] or go to the Emergency Department: Fever or chills Increased drainage Green or yellow drainage Foul odor Increased pain Hardness around the wound Redness, warmth or swelling of the surrounding tissue Color change to the wound Evenings / Weekends / Holidays If you call the wound center at the phone number provided above, please leave a detailed message that includes your full name, birthday, and phone number. We are seeing patients during the day, so we will return your call within a 24-48 hr period in the order your call was received. There is not an on-call provider assigned to the wound center. If you have an emergency that needs to be addressed, please go the Urgent Care or the Emergency Room. Thank you for your cooperation and understanding. Plan: - Return to the Wound Center to see Dr. Rodriguez in 3 months - See Dr. Proctor as scheduled - Please follow up with your PCP to have your Blood Pressure rechecked. - Continue aggressive nutritional support to assist wound healing. - PRISM. You may call for refills on supplies every 30 days as needed. Call the phone number provided: . Dr. Rc Rodriguez MD/aicha/rogelio documented in this encounter [facility] 05-08-2023 Nurse Note Nursing Documentation Pertinent Medical History: HTN, CKD, Spinal stenosis, left Breast CA, COPD, November 05, 2022 pt ended up in the ED and admitted in the hospital for sepsis and cellulitis of right leg. Pt states she does not remember what happened or what the diagnosis was from the hospital. Wound Etiology according to patient: First time patient noticed the wound on the right leg was after her hospitalization November 05, 2022. Patient arrived via: ambulatory from home Home Care Company/Nursing Facility: N/A Consent captured for debridement per Rc Rodriguez MD and nolan until June 2023. Special Instructions: N/A Anticoagulant Therapy: N/A Living Situation: Lives by herself Who lives with patient: No one Who will be performing wound care: self Available Support System: pt's son & three sisters In-Home Assist Devices: Home is one floor with bathroom assistance devices. Occupation: Retired Provider seeing patient: Rc Rodriguez MD WOUND ASSESSMENT: Refer to Provider's Wound Assessment Note VASCULAR ASSESSMENT BY PROVIDER: N/A CHF History: Not in pt's chart, pt denies EDEMA: Right foot: 3+ Right calf: 3+ Left foot: 2+ Left Calf: 2+ MEASUREMENTS: in CM Right Calf: 39.0 Right Ankle: 27.5 Left Calf: 39.5 Left Ankle: 27.0 Length: 45.0 WOUND PHOTOGRAPHY: no DEBRIDEMENT PROCEDURE BY PROVIDER: Anesthetic Used: N/A Wound # 1 Other procedure: N/A Specimen collected: N/A WOUND TREATMENT PER MD ORDER: Wounds cleansed by mechanical debridement to allow provider to visualize wound base WOUND # 1 LOCATION: Right Dorsal Foot - Cluster (first visit 12/19/22) Closed 05/08/23 Red rashy area noted medial right lower leg Debridement by Provider: N/A Cleansed with: Applied to malcolm-wound skin: patient's betamethasone ointment Applied to wound bed: Covered and secured with: N/A COMPRESSION: Single layer of size E tubi-summer associate to right leg SPECIAL NEEDS: Coordination of care - N/A Emotional support N/A OR set-up N/A Metal Drawer N/A Incontinence needs N/A DISCHARGED in stable condition to: Home ambulatory Global surgical period dates if applicable: N/A PLAN/ORDERS: - Return to the Wound Center to see Dr. Rodriguez in 3 months - See Dr. Proctor as scheduled - Please follow up with your PCP to have your Blood Pressure rechecked. - Continue aggressive nutritional support to assist wound healing. - PRISM. You may call for refills on supplies every 30 days as needed. Call the phone number provided: . EDUCATION: The patient/family was instructed how to cleanse the wound(s). Visual demonstration on how to apply the dressing with teach back method. Signs & symptoms of infection were reviewed: Increased redness, swelling, pain, green/yellow drainage, fever and/or chills would all need to be evaluated by a Physician. Patient received typed home-going wound care instructions and has expressed intent to comply. OTHER EDUCATION: Provider discussed need to control swelling and use of topical steroid cream and 3-month follow-up plan. Education performed regarding lymphedema/edema: Elevation of extremity above the heart for 30 minutes three times daily and as needed Exercise such as writing the ABC's with your toes in the air, walking and/or calf pumps Wearing compression as ordered by provider Diet controlling of sodium as instructed by provider Use of medication to help control edema. UNIVERSAL PROTOCOL / SAFETY CHECKLIST - N/A Current HBOT Status: Active or Complete - see screening below WOUND CENTER HYPERBARIC OXYGEN THERAPY SCREENING 1. Is the patient diabetic? (If No, skip to question 5) No 5. Has the patient been diagnosed with osteomyelitis? No 6. Has the patient had a previous skin graft or flap at the wound? No 7. Has the patient had or been offered vascular intervention/evaluation? Yes Pt started with Dr Pope, scheduled apt with Dr Proctor 01/09/23, has appt with Dr. Proctor 05/11/23 for procedure 8. Does the patient have a wound at an amputation site? No 9. Has the patient had radiation therapy at the site of the problem? No If Yes to ANY of questions 5-9, consult the Hyperbaric Center Rosmery Acharya RN/rogelio documented in this encounter [facility] 05-08-2023 History of Presen t illness Narrative INFECTIOUS DISEASE WOUND CENTER NOTE Patient Name: Florecita Healy Date: 05/08/2023 ASSESSMENT: Cellulitis, RLE COPD Hypertension Hyperlipidemia Breast cancer Chronic pain (pain management) Psoriasis Osteopenia PLAN: Continue to monitor off antibiotics Monitor for signs of infection. These were discussed in details with her Compression compliance emphasized. Tubigrip's prescribed Vascular surgery follow-up has been scheduled Edema management discussed Noted plans for surgery for venous insufficiency in the near future Follow-up with infectious disease at the wound center in 3 months per patient's wishes and she wants to continue to follow-up with me sporadically INTERVAL HISTORY: ROS done with pt and negative unless stated. No warmth or drainage from the legs however developed small patchy areas of contact dermatitis and was prescribed topical betamethasone for this. She is using that twice daily. No fevers or chills. No pain. Blood pressure medications were changed to Norvasc and has led to some swelling in the feet. She is scheduled to undergo vascular surgery in the near future with Dr. Proctor MEDICATIONS: amLODIPine (NORVASC) 5 mg tablet Take 1 tablet by mouth once daily. cyanocobalamin (VITAMIN B-12) 100 mcg tab Take 100 mcg by mouth once daily. metoprolol succinate ER (TOPROL XL) 50 mg 24 hr tablet Take 1 tablet by mouth once daily. levothyroxine (SYNTHROID) 25 mcg tablet Take 1 tablet by mouth once daily. Except 2 tabs by mouth every Sunday and Sunday lisinopril (ZESTRIL) 40 mg tablet Take 1 tablet by mouth once daily. acetaminophen (TYLENOL) 325 mg tablet Take 2 tablets by mouth every 4 hours as needed for pain. pregabalin (LYRICA) 75 mg capsule Take 75 mg by mouth daily at bedtime. cholecalciferol, vitamin D3, (VITAMIN D3 ORAL) Take 2,000 Units by mouth once daily. alpha tocopheryl acetate (VITAMIN E) 400 unit capsule Take 400 Units by mouth once daily. diphenhydrAMINE-Acetaminophen 25-500 mg tab Take 2 tablets by mouth at bedtime as needed. PHYSICAL EXAM: Vital signs: stable, afeb General: alert, oriented, NAD Lungs: bilaterally clear to auscultation Heart: regular rate and rhythm Abdomen: soft, non tender, non distended, BS+ Extremities: no swollen joints Skin: no rash Segment of chronic venous stasis dermatitis without any signs of infection. Small patches of contact dermatitis on the left leg and the right dorsal foot. Lab data: reviewed WBC (k/uL) Date Value 02/27/2023 5.38 11/13/2022 4.94 11/12/2022 4.30 11/01/2021 4.45 04/01/2021 5.25 03/08/2020 5.79 Hemoglobin (g/dL) Date Value 02/27/2023 12.6 11/13/2022 10.1 11/12/2022 9.7 11/01/2021 12.9 04/01/2021 12.4 03/08/2020 12.2 INR (no units) Date Value 11/05/2022 1.0 Sodium (mmol/L) Date Value 02/27/2023 142 11/13/2022 137 11/12/2022 136 11/01/2021 139 04/01/2021 141 03/08/2020 143 Potassium (mmol/L) Date Value 02/27/2023 3.8 11/13/2022 4.7 11/12/2022 4.2 11/01/2021 4.1 04/01/2021 4.0 03/08/2020 3.8 CO2 (mmol/L) Date Value 02/27/2023 23 11/13/2022 28 11/12/2022 25 11/01/2021 24 04/01/2021 25 03/08/2020 22 BUN (mg/dL) Date Value 02/27/2023 14 11/13/2022 12 11/12/2022 11 11/01/2021 16 04/01/2021 16 03/08/2020 17 Creatinine (mg/dL) Date Value 02/27/2023 1.02 11/13/2022 1.00 11/12/2022 0.83 11/01/2021 0.96 04/01/2021 1.00 03/08/2020 0.99 AST (U/L) Date Value 02/27/2023 12 11/05/2022 17 11/01/2021 13 04/01/2021 14 03/08/2020 16 ALT (U/L) Date Value 02/27/2023 10 11/05/2022 11 11/01/2021 9 04/01/2021 8 03/08/2020 9 Bilirubin, Total (mg/dL) Date Value 02/27/2023 0.8 11/05/2022 1.2 11/01/2021 0.6 04/01/2021 0.6 03/08/2020 0.6 Alkaline Phosphatase (U/L) Date Value 02/27/2023 96 11/05/2022 85 11/01/2021 103 04/01/2021 94 03/08/2020 98 WSR (mm/hr) Date Value 08/02/2016 8 06/04/2015 4 06/23/2013 8 12/26/2012 2 Sed Rate, Westergren (mm/hr) Date Value 11/05/2022 46 Lactate (mmol/L) Date Value 11/05/2022 1.0 11/05/2022 2.3 Sepsis Lactate (mmol/L) Date Value 11/06/2022 1.3 11/05/2022 2.2 Vancomycin (ug/mL) Date Value 11/08/2022 8.2 Microbiology data: reviewed Imaging data: reviewed Rc Rodriguez MD Pager: documented in this encounter [facility] 05-04-2023 Miscellaneous Notes Pt. Notified of results , verified next office visit with pt. Pt. Voiced understanding. Zenaida Reynolds LPN Please inform pt. that her mammogram looks good. Follow up as scheduled. Thank you. Nevin Fajardo APRN.KAITLYN documented in this encounter [facility] 05-04-2023 Miscellaneous Notes May 07, 2023 PID: [id number] Florecita Healy [address] [place] [id number] Dear Ms. Healy, We are pleased to inform you that the results of your recent breast imaging exam on 05/03/2023 are normal. Early detection of cancer is very important. We also understand recommendations regarding breast cancer screening are controversial. Please discuss with your primary care provider which strategy is best for you and whether a mammogram is right for you. Your imaging studies and report will be kept on file at [facility] as part of your permanent medical record and are available for your continuing care. Thank you for allowing us to help in meeting your health care needs. Sincerely, Dr. Kelley Interpreting Radiologist [facility] (Normal over 40) documented in this encounter [facility] 05-03-2023 Note HNO ID: [id number] Author: Anabel Lovett bTendoo Scopely Service: ? Author Type: Marker Machine Type: Progress Notes Filed: 05/03/2023 10:47 AM Note Text: Radiology Service Progress Note PATIENT NAME: Florecita Healy DATE OF SERVICE: May 03, 2023 TIME: 10:06 AM PATIENT IDENTITY VERIFICATION COMPLETED USING TWO (2) IDENTIFIERS: Name and Date of confirmed by patient verbally. FALL SCREENING: Has the patient had 2 falls in the last year or 1 fall with injury or currently using an Ambulatory Assistive Device (Walker, Cane, Wheelchair, Crutches, etc.)? No PATIENT GENDER DATA: Female. status: : No status: NO. PATIENT RELEVANT IMPLANT DATA REVIEWED: Not Applicable RADIOLOGY DEPARTMENT: Mammography PERIPHERAL IV DATA: Not applicable SIGNED BY: Anabel Lovett [employer] May 03, 2023 10:06 AM [facility] 05-02-2023 Note HNO ID: [id number] Author: Rosie Syed APRN.GRADUATE TEACHER EDUCATION Service: ? Author Type: Nurse Practitioner Type: Progress Notes Filed: 05/03/2023 1:16 PM Note Text: This is a 82 year old female who presents today with: Patient presents with: Follow Up HISTORY OF PRESENT ILLNESS: Florecita Healy is a 82 year old female. Patient presents with: Follow Up Pt presents today to follow-up on elevated blood pressure. She previously was taken off the norvasc because of LE swelling. Pt reported that swelling was no better off the medication. However, blood pressure has not been controlled. We restarted norvasc 2.5 mg at last visit. She hasn't noticed a difference in her LE swelling. HTN: Patient is compliant with meds Yes Monitors bp at home: Yes. 140's/80's most of the time at home -- checks a couple of times weekly. Denies side effects: Yes. Chest pain: No. Dyspnea: refers I am a smoker so I do have SOB. . Edema: Yes, but reports not worse since being on the amlodipine. Palpitations: No. Syncope: No. Headache: No. Dizziness: No. PAST MEDICAL HISTORY: PAST MEDICAL HISTORY Diagnosis Date Abnormal ultrasound of breast 12/02/15 Left Breast cancer of upper-outer quadrant of left female breast (HCC) Chronic obstructive pulmonary disease (COPD) ([facility]) Chronic pain 06/03/2012 sees pain management. Diarrhea 11/06/2022 Hyperlipidemia 06/03/2012 Hypertension 06/03/2012 Nausea AND vomiting 11/06/2022 Osteopenia Psor[address] Pulmonary nodule Dr. Dawn Sepsis ([facility]) 11/05/2022 Snoring PAST SURGICAL HISTORY Procedure Laterality Date AMPUTATE TOE; IP JOINT BREAST BIOPSY Left 12/02/2015 BX/EXC LYMPH NODE OPEN DEEP AXILLARY NODE Left 05/11/2015 DELIVERY ONLY , low transverse CHOLECYSTECTOMY COLONOSCOPY 05/13/2001 normal COLONOSCOPY 01/02/2007 diverticulosis COLONOSCOPY FLX DX W/COLLJ SPEC WHEN PFRMD 09/04/2013 Colonoscopy COLONOSCOPY FLX DX W/COLLJ SPEC WHEN PFRMD 12/07/2016 Colonoscopy COLONOSCOPY SCREENING 05/30/2022 Dr Borrero 5 year F/U HYSTERECTOMY HX stil has one ovary INCISE FINGER TENDON SHEATH Right INCISE FINGER TENDON SHEATH Right MASTECTOMY, PARTIAL Left 05/11/2015 NEUROPLASTY AND/TRANSPOS MEDIAN NRV CARPAL TUNNE Right 08/01/2019 Right carpal tunnel release ORTHOPEDIC SURGERY HX Left 10/11/2017 3rd and 4th trigger finger release PERQ DEVICE PLACEMENT BREAST LOC 1ST LES W/GDNCE Left 05/11/2015 THYROIDECTOMY TOTAL/COMPLETE right sided thyroidectomy due to nodules. were benign XCAPSL CTRC RMVL INSJ IO LENS PROSTH W/O ECP 01/2015 Cataract Extraction with PC IOL ALLERGIES Animal Dander, Darvocet A500 [Propoxyphene N-Acetaminophen], Dust, Grass Pollen, Mold, Soma [Carisoprodol], and Trees MEDICATIONS Current Outpatient Medications Medication Sig amLODIPine (NORVASC) 2.5 mg tablet Take 1 tablet by mouth once daily. baclofen (LIORESAL) 10 mg tablet Take 1 tablet by mouth twice daily as needed. cyanocobalamin (VITAMIN B-12) 100 mcg tab Take 100 mcg by mouth once daily. metoprolol succinate ER (TOPROL XL) 50 mg 24 hr tablet Take 1 tablet by mouth once daily. levothyroxine (SYNTHROID) 25 mcg tablet Take 1 tablet by mouth once daily. Except 2 tabs by mouth every Sunday and Sunday lisinopril (ZESTRIL) 40 mg tablet Take 1 tablet by mouth once daily. acetaminophen (TYLENOL) 325 mg tablet Take 2 tablets by mouth every 4 hours as needed for pain. pregabalin (LYRICA) 75 mg capsule Take 75 mg by mouth daily at bedtime. cholecalciferol, vitamin D3, (VITAMIN D3 ORAL) Take 2,000 Units by mouth once daily. alpha tocopheryl acetate (VITAMIN E) 400 unit capsule Take 400 Units by mouth once daily. diphenhydrAMINE-Acetaminophen 25-500 mg tab Take 2 tablets by mouth at bedtime as needed. No current facility-administered medications for this visit. FAMILY HISTORY Problem Relation Age of Onset Heart Father other (Black Lung) Father Arthritis Mother RA other (gallbladder) Mother Diabetes Sister Cancer Sister kidney tumor Cancer Brother lung cancer Social History Tobacco Use Smoking status: Every Day Packs/day: 1.00 Years: 20.00 Pack years: 20.00 Types: Cigarettes Smokeless tobacco: Never Tobacco comments: Pt has cut back to 1/4 pack daily. Substance Use Topics Alcohol use: No Drug use: No EXAM: BP 174/83 Pulse 68 Resp 16 SpO2 96% PHYSICAL EXAM: General Appearance: Well appearing, alert, in no acute distress, well-hydrated, well nourished.. Skin: Skin color, texture, turgor normal, no suspicious rashes or lesions. Head: Normocephalic, no masses, lesions, tenderness or abnormalities. Eyes: Anicteric sclera. Pupils are equally round and reactive to light. Extraocular movements are intact. . Lungs: Lungs clear to auscultation. No wheezing, rhonchi, rales.. Heart: RRR without murmur, gallop, or rubs. No ectopy. Extremities: + venous insufficiency. +1 LE swelling R>L. Discolo (more content not included)... [facility] 05-02-2023 Instructions Rosie Syed APRN.CNP - 05/02/2023 10:12 AM EDT Increase the amlodipine to 5 mg daily. 2. Recheck in 3-4 weeks. documented in this encounter [facility] 05-02-2023 History of Presen t illness Narrative This is a 82 year old female who presents today with: Patient presents with: Follow Up HISTORY OF PRESENT ILLNESS: Florecita Healy is a 82 year old female. Patient presents with: Follow Up Pt presents today to follow-up on elevated blood pressure. She previously was taken off the norvasc because of LE swelling. Pt reported that swelling was no better off the medication. However, blood pressure has not been controlled. We restarted norvasc 2.5 mg at last visit. She hasn't noticed a difference in her LE swelling. HTN: Patient is compliant with meds Yes Monitors bp at home: Yes. 140's/80's most of the time at home -- checks a couple of times weekly. Denies side effects: Yes. Chest pain: No. Dyspnea: refers I am a smoker so I do have SOB. . Edema: Yes, but reports not worse since being on the amlodipine. Palpitations: No. Syncope: No. Headache: No. Dizziness: No. PAST MEDICAL HISTORY: PAST MEDICAL HISTORY Diagnosis Date Abnormal ultrasound of breast 12/02/15 Left Breast cancer of upper-outer quadrant of left female breast (HCC) Chronic obstructive pulmonary disease (COPD) (HCC) Chronic pain 06/03/2012 sees pain management. Diarrhea 11/06/2022 Hyperlipidemia 06/03/2012 Hypertension 06/03/2012 Nausea & vomiting 11/06/2022 Osteopenia Psoriasis Pulmonary nodule Dr. Dawn Sepsis ([facility]) 11/05/2022 Snoring PAST SURGICAL HISTORY Procedure Laterality Date AMPUTATE TOE; IP JOINT BREAST BIOPSY Left 12/02/2015 BX/EXC LYMPH NODE OPEN DEEP AXILLARY NODE Left 05/11/2015 DELIVERY ONLY , low transverse CHOLECYSTECTOMY COLONOSCOPY 05/13/2001 normal COLONOSCOPY 01/02/2007 diverticulosis COLONOSCOPY FLX DX W/COLLJ SPEC WHEN PFRMD 09/04/2013 Colonoscopy COLONOSCOPY FLX DX W/COLLJ SPEC WHEN PFRMD 12/07/2016 Colonoscopy COLONOSCOPY SCREENING 05/30/2022 Dr Borrero 5 year F/U HYSTERECTOMY HX stil has one ovary INCISE FINGER TENDON SHEATH Right INCISE FINGER TENDON SHEATH Right MASTECTOMY, PARTIAL Left 05/11/2015 NEUROPLASTY &/TRANSPOS MEDIAN NRV CARPAL TUNNE Right 08/01/2019 Right carpal tunnel release ORTHOPEDIC SURGERY HX Left 10/11/2017 3rd and 4th trigger finger release PERQ DEVICE PLACEMENT BREAST LOC 1ST LES W/GDNCE Left 05/11/2015 THYROIDECTOMY TOTAL/COMPLETE right sided thyroidectomy due to nodules. were benign XCAPSL CTRC RMVL INSJ IO LENS PROSTH W/O ECP 01/2015 Cataract Extraction with PC IOL ALLERGIES Animal Dander, Darvocet A500 [Propoxyphene N-Acetaminophen], Dust, Grass Pollen, Mold, Soma [Carisoprodol], and Trees MEDICATIONS Current Outpatient Medications Medication Sig amLODIPine (NORVASC) 2.5 mg tablet Take 1 tablet by mouth once daily. baclofen (LIORESAL) 10 mg tablet Take 1 tablet by mouth twice daily as needed. cyanocobalamin (VITAMIN B-12) 100 mcg tab Take 100 mcg by mouth once daily. metoprolol succinate ER (TOPROL XL) 50 mg 24 hr tablet Take 1 tablet by mouth once daily. levothyroxine (SYNTHROID) 25 mcg tablet Take 1 tablet by mouth once daily. Except 2 tabs by mouth every Sunday and Sunday lisinopril (ZESTRIL) 40 mg tablet Take 1 tablet by mouth once daily. acetaminophen (TYLENOL) 325 mg tablet Take 2 tablets by mouth every 4 hours as needed for pain. pregabalin (LYRICA) 75 mg capsule Take 75 mg by mouth daily at bedtime. cholecalciferol, vitamin D3, (VITAMIN D3 ORAL) Take 2,000 Units by mouth once daily. alpha tocopheryl acetate (VITAMIN E) 400 unit capsule Take 400 Units by mouth once daily. diphenhydrAMINE-Acetaminophen 25-500 mg tab Take 2 tablets by mouth at bedtime as needed. No current facility-administered medications for this visit. FAMILY HISTORY Problem Relation Age of Onset Heart Father other (Black Lung) Father Arthritis Mother RA other (gallbladder) Mother Diabetes Sister Cancer Sister kidney tumor Cancer Brother lung cancer Social History Tobacco Use Smoking status: Every Day Packs/day: 1.00 Years: 20.00 Pack years: 20.00 Types: Cigarettes Smokeless tobacco: Never Tobacco comments: Pt has cut back to 1/4 pack daily. Substance Use Topics Alcohol use: No Drug use: No EXAM: BP 174/83 Pulse 68 Resp 16 SpO2 96% PHYSICAL EXAM: General Appearance: Well appearing, alert, in no acute distress, well-hydrated, well nourished.. Skin: Skin color, texture, turgor normal, no suspicious rashes or lesions. Head: Normocephalic, no masses, lesions, tenderness or abnormalities. Eyes: Anicteric sclera. Pupils are equally round and reactive to light. Extraocular movements are intact. . Lungs: Lungs clear to auscultation. No wheezing, rhonchi, rales.. Heart: RRR without murmur, gallop, or rubs. No ectopy. Extremities: + venous insufficiency. +1 LE swelling R>L. Discoloration of LE - R>L. Neurologic: Gait normal. ASSESSMENT/PLAN: 1. Primary hypertension - ICD9: 401.9, ICD10: I10 - Uncontrolled - Increase amlodipine - Recommend home blood pressure monitoring, to bring results to next visit - Encouraged sodium restriction, DASH or Mediterranean diet - Recommend regular aerobic exercise - AMLODIPINE 5 MG TABLET Recheck in 2-3 weeks. She will notify provider of any worsening swelling. Discussed treatment plan and patient voices understanding. Patient's questions answered appropriately. Medications and potential side effects were discussed and patient voices understanding. Return to the office as scheduled or as needed for worsening/no improvement. Rosie Syed APRN.KAITLYN The patient indicates understanding of these issues and agrees with the plan. documented in this encounter [facility] 04-16-2023 Note Patient Outreach (AM BC) FLORECITA HEALY ([id number]) 1940 F Date Time Provider Department 04/16/23 GUERDA FRANCISCO During your visit today, we recorded the following information about you: Guerda Francisco RN 04/16/2023 10:14 AM Signed [facility] Telephonic Outreach Provider Action/FYI No new or worsening sx. Contacted for: Routine Telephonic Outreach Contact made with patient: Yes Patient identified by name and date of . Discussed care with patient Are you experiencing any new or worsening symptoms you need to talk about today? No Disease Specific Do you check your blood pressure at home? No Do you have new or worsening shortness of breath with activity? No Do you feel like you are dehydrated for any reason, including not being able to eat or drink normally, or having less urine/much darker urine than normal for you? No Do you check your daily weight at home? No Based on residential program manager, the following disposition is advised: No symptoms or symptoms present, not severe. Routed to: No Action Needed LINDA Education Provided this Outreach: Jeannine Francisco RN April 16, 2023 10:13 AM Allergies As of Date: 04/16/2023 Noted Allergy Reaction ANIMAL DANDER 08/02/2016 5 - Intolerance DARVOCET A500 (PROPOXYPHENE N-SELENE*06/03/2012 1 - Mental Status Change DUST 08/02/2016 14 - Other: See Comments GRASS POLLEN 08/02/2016 14 - Other: See Comments MOLD 08/02/2016 14 - Other: See Comments SOMA (CARISOPRODOL) 06/03/2012 7 - Swelling 9 - Itching TREES 08/02/2016 14 - Other: See Comments Date Reviewed: 04/02/2023 Reviewed by: Everton Tamayo LPN - Fully Assessed Reason for Visit: Community Monitoring Outreach [Other] Cmt: Telephonic Outreach CDM Home Monitoring Prescriptions as of 04/16/2023 - amLODIPine (NORVASC) 2.5 mg tablet Take 1 tablet by mouth once daily. - baclofen (LIORESAL) 10 mg tablet Take 1 tablet by mouth twice daily as needed. - cyanocobalamin (VITAMIN B-12) 100 mcg tab Take 100 mcg by mouth once daily. - metoprolol succinate ER (TOPROL XL) 50 mg 24 hr tablet Take 1 tablet by mouth once daily. - levothyroxine (SYNTHROID) 25 mcg tablet Take 1 tablet by mouth once daily. Except 2 tabs by mouth every Sunday and Sunday - lisinopril (ZESTRIL) 40 mg tablet Take 1 tablet by mouth once daily. - acetaminophen (TYLENOL) 325 mg tablet Take 2 tablets by mouth every 4 hours as needed for pain. - pregabalin (LYRICA) 75 mg capsule Take 75 mg by mouth daily at bedtime. - cholecalciferol, vitamin D3, (VITAMIN D3 ORAL) Take 2,000 Units by mouth once daily. - alpha tocopheryl acetate (VITAMIN E) 400 unit capsule Take 400 Units by mouth once daily. - diphenhydrAMINE-Acetaminophen 25-500 mg tab Take 2 tablets by mouth at bedtime as needed. Problem List As Of Date 04/16/2023 Noted Resolved Chronic pain [G89.29] 06/03/2012 07/24/2019 Primary hypertension [I10] 06/03/2012 Hyperlipidemia [E78.5] 06/03/2012 History of Jovana thyroiditis [Z86.39] 06/03/2012 Osteoporosis [M81.0] 07/08/2012 08/09/2012 Lung nodules [R91.8] 07/08/2012 Psoriasis [L40.8] 10/18/2012 Eczematous dermatitis [L30.9] 10/18/2012 02/28/2017 Xerosis cutis [L85.3] 10/18/2012 02/28/2017 Pruritus [L29.9] 10/18/2012 02/28/2017 Excoriation [T14.8XXA] 10/18/2012 02/28/2017 Lichenification and lichen simplex chronicus [L*10/18/2012 Malignant neoplasm of upper-outer quadrant of l*05/28/2015 Low back pain [M54.50] 08/06/2015 07/24/2019 Pain in right hip [M25.551] 08/06/2015 07/24/2019 Thoracic back pain [M54.6] 08/06/2015 02/28/2017 Cervicalgia [M54.2] 08/06/2015 02/28/2017 Bilateral ankle pain [M25.571, M25.572] 10/01/2015 02/28/2017 Pain in left shoulder [M25.512] 10/29/2015 02/28/2017 Pain of left thumb [M79.645] 05/05/2016 02/28/2017 Chronic midline low back pain without sciatica *08/23/2016 02/28/2017 Colon cancer screening [Z12.11] 12/07/2016 12/07/2016 Trigger finger, acquired [M65.30] 09/26/2017 07/24/2019 Chronic pain syndrome [G89.4] 09/27/2017 11/28/2018 Acute pain of right shoulder [M25.511] 11/29/2017 11/28/2018 Low back pain radiating to right lower extremit*11/29/2017 07/24/2019 Cervicalgia [M54.2] 03/26/2018 Chronic midline low back pain without sciatica *03/26/2018 07/24/2019 Facet arthritis of lumbar region [M47.816] 11/06/2018 Stage 3a chronic kidney disease (HCC) [N18.31] 01/21/2019 DDD (degenerative disc disease), lumbar [M51.36]02/21/2019 Spinal stenosis of cervical region [M48.02] 04/29/2019 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 [facility] 04-16-2023 Note HNO ID: [id number] Author: Guerda Francisco RN Service: ? Author Type: Registered Nurse Type: Progress Notes Filed: 04/16/2023 10:14 AM Note Text: CDM Telephonic Outreach Provider Action/FYI No new or worsening sx. Contacted for: Routine Telephonic Outreach Contact made with patient: Yes Patient identified by name and date of . Discussed care with patient Are you experiencing any new or worsening symptoms you need to talk about today? No Disease Specific Do you check your blood pressure at home? No Do you have new or worsening shortness of breath with activity? No Do you feel like you are dehydrated for any reason, including not being able to eat or drink normally, or having less urine/much darker urine than normal for you? No Do you check your daily weight at home? No Based on residential program manager, the following disposition is advised: No symptoms or symptoms present, not severe. Routed to: No Action Needed LINDA Education Provided this Outreach: No Guerda Francisco RN April 16, 2023 10:13 AM [facility] 04-16-2023 History of Presen t illness Narrative CDM Telephonic Outreach Provider Action/FYI No new or worsening sx. Contacted for: Routine Telephonic Outreach Contact made with patient: Yes Patient identified by name and date of . Discussed care with patient Are you experiencing any new or worsening symptoms you need to talk about today? No Disease Specific Do you check your blood pressure at home? No Do you have new or worsening shortness of breath with activity? No Do you feel like you are dehydrated for any reason, including not being able to eat or drink normally, or having less urine/much darker urine than normal for you? No Do you check your daily weight at home? No Based on residential program manager, the following disposition is advised: No symptoms or symptoms present, not severe. Routed to: No Action Needed LINDA Education Provided this Outreach: No Guerda Francisco RN April 16, 2023 10:13 AM documented in this encounter [facility] 04-02-2023 Note HNO ID: [id number] Author: Rosie Syed APRN.GRADUATE TEACHER EDUCATION Service: ? Author Type: Nurse Practitioner Type: Progress Notes Filed: 04/02/2023 2:17 PM Note Text: This is a 82 year old female who presents today with: Patient presents with: Recheck: 1 month BP check; increased metoprolol at last office visit HISTORY OF PRESENT ILLNESS: Florecita Healy is a 82 year old female. Patient presents with: Recheck: 1 month BP check; increased metoprolol at last office visit HTN: Patient is compliant with meds Yes Monitors bp at home: Yes. Runs high Denies side effects: No. Chest pain: No. Dyspnea: No. Edema: Yes. - not new Palpitations: No. Syncope: No. Headache: Yes. Occasionally- takes tylenol with relief Dizziness: No. Pt was on Norvasc in the past and felt it worked well. Medication was discontinued in 2020 due to swelling in bilateral feet/ankles. Pt refers no change in swelling after stopping medication. PAST MEDICAL HISTORY: PAST MEDICAL HISTORY Diagnosis Date Abnormal ultrasound of breast 12/02/15 Left Breast cancer of upper-outer quadrant of left female breast (HCC) Chronic obstructive pulmonary disease (COPD) (HCC) Chronic pain 06/03/2012 sees pain management. Diarrhea 11/06/2022 Hyperlipidemia 06/03/2012 Hypertension 06/03/2012 Nausea AND vomiting 11/06/2022 Osteopenia Psoriasis Pulmonary nodule Dr. Dawn Sepsis ([facility]) 11/05/2022 Snoring PAST SURGICAL HISTORY Procedure Laterality Date AMPUTATE TOE; IP JOINT BREAST BIOPSY Left 12/02/2015 BX/EXC LYMPH NODE OPEN DEEP AXILLARY NODE Left 05/11/2015 DELIVERY ONLY , low transverse CHOLECYSTECTOMY COLONOSCOPY 05/13/2001 normal COLONOSCOPY 01/02/2007 diverticulosis COLONOSCOPY FLX DX W/COLLJ SPEC WHEN PFRMD 09/04/2013 Colonoscopy COLONOSCOPY FLX DX W/COLLJ SPEC WHEN PFRMD 12/07/2016 Colonoscopy COLONOSCOPY SCREENING 05/30/2022 Dr Borrero 5 year F/U HYSTERECTOMY HX stil has one ovary INCISE FINGER TENDON SHEATH Right INCISE FINGER TENDON SHEATH Right MASTECTOMY, PARTIAL Left 05/11/2015 NEUROPLASTY AND/TRANSPOS MEDIAN NRV CARPAL TUNNE Right 08/01/2019 Right carpal tunnel release ORTHOPEDIC SURGERY HX Left 10/11/2017 3rd and 4th trigger finger release PERQ DEVICE PLACEMENT BREAST LOC 1ST LES W/GDNCE Left 05/11/2015 THYROIDECTOMY TOTAL/COMPLETE right sided thyroidectomy due to nodules. were benign XCAPSL CTRC RMVL INSJ IO LENS PROSTH W/O ECP 01/2015 Cataract Extraction with PC IOL ALLERGIES Animal Dander, Darvocet A500 [Propoxyphene N-Acetaminophen], Dust, Grass Pollen, Mold, Soma [Carisoprodol], and Trees MEDICATIONS Current Outpatient Medications Medication Sig cyanocobalamin (VITAMIN B-12) 100 mcg tab Take 100 mcg by mouth once daily. metoprolol succinate ER (TOPROL XL) 50 mg 24 hr tablet Take 1 tablet by mouth once daily. levothyroxine (SYNTHROID) 25 mcg tablet Take 1 tablet by mouth once daily. Except 2 tabs by mouth every Sunday and Sunday lisinopril (ZESTRIL) 40 mg tablet Take 1 tablet by mouth once daily. acetaminophen (TYLENOL) 325 mg tablet Take 2 tablets by mouth every 4 hours as needed for pain. pregabalin (LYRICA) 75 mg capsule Take 75 mg by mouth daily at bedtime. cholecalciferol, vitamin D3, (VITAMIN D3 ORAL) Take 2,000 Units by mouth once daily. alpha tocopheryl acetate (VITAMIN E) 400 unit capsule Take 400 Units by mouth once daily. diphenhydrAMINE-Acetaminophen 25-500 mg tab Take 2 tablets by mouth at bedtime as needed. No current facility-administered medications for this visit. FAMILY HISTORY Problem Relation Age of Onset Heart Father other (Black Lung) Father Arthritis Mother RA other (gallbladder) Mother Diabetes Sister Cancer Sister kidney tumor Cancer Brother lung cancer Social History Tobacco Use Smoking status: Every Day Packs/day: 1.00 Years: 20.00 Pack years: 20.00 Types: Cigarettes Smokeless tobacco: Never Tobacco comments: Pt has cut back to 1/4 pack daily. Substance Use Topics Alcohol use: No Drug use: No EXAM: BP 179/86 Pulse 69 Resp 18 SpO2 97% PHYSICAL EXAM: General Appearance: Well appearing, alert, in no acute distress, well-hydrated, well nourished.. Skin: Skin color, texture, turgor normal, no suspicious rashes or lesions. Head: Normocephalic, no masses, lesions, tenderness or abnormalities. Eyes: Anicteric sclera. Extraocular movements are intact. . Lungs: Lungs clear to auscultation. No wheezing, rhonchi, rales.. Heart: RRR without murmur, gallop, or rubs. No ectopy. Extremities: Positive findings: right foot is purple. Good pedal pulses/cap refill. Neurologic: Gait normal. ASSESSMENT/PLAN: 1. Primary hypertension - ICD9: 401.9, ICD10: I10 - poor control - Begin amlodipine (Norvasc) - patient states this worked previously - Recommended regular aerobic exercise. - Recommend home blood pressure monitoring, to bring results in on next visit (more content not included)... [facility] 03-22-2023 Note HNO ID: [id number] Author: Nevin Fajardo APRN.GRADU[employer]ACHER [employer]UCATION Service: ? Author Type: Nurse Practitioner Type: Progress Notes Filed: 03/23/2023 2:22 PM Note Text: Chief Complaint Patient presents with: 10 month check HPI: Florecita Healy is a 82 year old female who presents here today for follow up breast cancer. Per Dr. Slaughter's previous note: H/o found to have an area of architectural distortion located in the left breast upper outer aspect at middle depth on screening mammogram in March 2015. Ultrasound demonstrated a mass with spiculated margin in the left breast at 2:00 posterior depth. There was posterior acoustic shadowing. Mammographic imaging revealed to it to measure approximately 1 cm. Left-sided partial mastectomy with re-xcision of medial margin and sentinel lymph node biopsy on 05/11/2015. The pathology specimen demonstrated a 1.5 cm single focus of invasive carcinoma. Margins were negative. The margin on the main specimen was 6 mm and the additional medial margin was up to a centimeter in thickness. Grade was 2. No angiolymphatic invasion was identified. DCIS comprised 10% of the tumor volume. 2 lymph nodes were recovered both were negative for disease. Estrogen receptors were quantified at greater than 95%, strong. Progesterone receptor 60%, moderate. HER-2 was 2+ on IHC but was negative by FISH testing. Completed RT and then started anastrozole first week August 2015. Changed to tamoxifen d/t body aches/pains on arimidex. 2015. Stopped arimidex 06/2016 d/t joint pain. Began aromasin 07/2016. Stopped aromasin early January 2017 d/t joint pain and cramping. Currently therapy:Observation Pt. was admitted for sepsis 2021. Discharged 2022. Appetite: I just don't eat that much. Wt. down 6# since May 2022. Energy level: I have good energy. Denies fevers or recent illness. Resp:denies cough or sob, occ. 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 Past medical history, appointments, medications, allergies reviewed. No changes. EXAM: BP 188/98 Pulse 89 Temp 37.4 ?C (99.4 ?F) (Temporal) Wt 67.8 kg (149 lb 8 oz) SpO2 95% BMI 24.50 kg/m? APPEARANCE Well appearing, alert, in no acute distress, well-hydrated, well nourished. HEART RRR with normal S1 and S2, no murmurs LUNG clear to auscultation BREAST FEMALE no mass/nodule b/l, L scar lateral/radiation changes LYMPH NODES No cervical lymphadenopathy, No supraclavicular lymphadenopathy, and No axillary lymphadenopathy. ABDOMEN bowel sounds normoactive, soft, non-tender EXTREMITIES chronic stasis changes/chronic edema BLE NEURO Awake, alert and oriented x 3, Normal gait, and No involuntary motions. SKIN Skin color, texture, turgor normal, no suspicious rashes or lesions ASSESSMENT/PLAN: 1. 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 Oncotype test:Recurrence score 15 indicating 10% 10 yr risk. Did not recommend adjuvant chemotherapy based on Oncotype testing. - No concerning findings on exam in regards to breast cancer. - Pt. did not tolerate 2 AI's or tamoxifen. Feels much better after stopping aromasin. Declined any further therapy. - Follow up with pain mgmt./PCP/DERM as scheduled. - Mammogram due end of April 2023. - Follow up in 6 months. - Pt. aware to call office with any questions/concerns. The patient indicates understanding of these issues and agrees with the plan. All documentation from previous visit of 06/09/22-Dr. Slaughter/myself was copied and pasted, documentation has been reviewed and edited as necessary for today's visit. Nevin Fajardo APRN.[facility] 03-22-2023 History of Presen t illness Narrative Chief Complaint Patient presents with: 10 month check HPI: Florecita Healy is a 82 year old female who presents here today for follow up breast cancer. Per Dr. Slaughter's previous note: H/o found to have an area of architectural distortion located in the left breast upper outer aspect at middle depth on screening mammogram in March 2015. Ultrasound demonstrated a mass with spiculated margin in the left breast at 2:00 posterior depth. There was posterior acoustic shadowing. Mammographic imaging revealed to it to measure approximately 1 cm. Left-sided partial mastectomy with re-xcision of medial margin and sentinel lymph node biopsy on 05/11/2015. The pathology specimen demonstrated a 1.5 cm single focus of invasive carcinoma. Margins were negative. The margin on the main specimen was 6 mm and the additional medial margin was up to a centimeter in thickness. Grade was 2. No angiolymphatic invasion was identified. DCIS comprised 10% of the tumor volume. 2 lymph nodes were recovered both were negative for disease. Estrogen receptors were quantified at greater than 95%, strong. Progesterone receptor 60%, moderate. HER-2 was 2+ on IHC but was negative by FISH testing. Completed RT and then started anastrozole first week August 2015. Changed to tamoxifen d/t body aches/pains on arimidex. 2015. Stopped arimidex 06/2016 d/t joint pain. Began aromasin 07/2016. Stopped aromasin early January 2017 d/t joint pain and cramping. Currently therapy:Observation Pt. was admitted for sepsis 2021. Discharged 2022. Appetite: I just don't eat that much. Wt. down 6# since May 2022. Energy level: I have good energy. Denies fevers or recent illness. Resp:denies cough or sob, occ. 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 Past medical history, appointments, medications, allergies reviewed. No changes. EXAM: BP 188/98 Pulse 89 Temp 37.4 C (99.4 F) (Temporal) Wt 67.8 kg (149 lb 8 oz) SpO2 95% BMI 24.50 kg/m APPEARANCE Well appearing, alert, in no acute distress, well-hydrated, well nourished. HEART RRR with normal S1 and S2, no murmurs LUNG clear to auscultation BREAST FEMALE no mass/nodule b/l, L scar lateral/radiation changes LYMPH NODES No cervical lymphadenopathy, No supraclavicular lymphadenopathy, and No axillary lymphadenopathy. ABDOMEN bowel sounds normoactive, soft, non-tender EXTREMITIES chronic stasis changes/chronic edema BLE NEURO Awake, alert and oriented x 3, Normal gait, and No involuntary motions. SKIN Skin color, texture, turgor normal, no suspicious rashes or lesions ASSESSMENT/PLAN: 1. 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 Oncotype test:Recurrence score 15 indicating 10% 10 yr risk. Did not recommend adjuvant chemotherapy based on Oncotype testing. - No concerning findings on exam in regards to breast cancer. - Pt. did not tolerate 2 AI's or tamoxifen. Feels much better after stopping aromasin. Declined any further therapy. - Follow up with pain mgmt./PCP/DERM as scheduled. - Mammogram due end of April 2023. - Follow up in 6 months. - Pt. aware to call office with any questions/concerns. The patient indicates understanding of these issues and agrees with the plan. All documentation from previous visit of 06/09/22-Dr. Slaughter/myself was copied and pasted, documentation has been reviewed and edited as necessary for today's visit. Nevin Fajardo APRN.KAITLYN documented in this encounter [facility] 03-19-2023 Note Patient Outreach ([facility] [place]) FLORECITA HEALY ([id number]) 1940 F Date Time Provider Department 03/19/23 GUERDA FRANCISCO During your visit today, we recorded the following information about you: Guerda Francisco RN 03/19/2023 11:54 AM Signed CDM Telephonic Outreach Provider Roberta/SILVIA Left VM. I also want to remind you about Healthy at Home. You may call [phone] seven (7) days a week from 8am-8pm for any need which arises. This includes weekends and holidays. A registered nurse will answer questions, help schedule appointments, place refill orders and ensure you receive the care necessary. Contacted for: Routine Telephonic Outreach Contact made with patient: No, left message. Guerda Francisco RN March 19, 2023 11:53 AM Allergies As of Date: 03/19/2023 Noted Allergy Reaction ANIMAL DANDER 08/02/2016 5 - Intolerance DARVOCET A500 (PROPOXYPHENE N-SELENE*06/03/2012 1 - Mental Status Change DUST 08/02/2016 14 - Other: See Comments GRASS POLLEN 08/02/2016 14 - Other: See Comments MOLD 08/02/2016 14 - Other: See Comments SOMA (CARISOPRODOL) 06/03/2012 7 - Swelling 9 - Itching TREES 08/02/2016 14 - Other: See Comments Date Reviewed: 03/13/2023 Reviewed by: Shobha Arce - Fully Assessed Reason for Visit: Community Monitoring Outreach [Other] Cmt: Telephonic Outreach CDM Home Monitoring Prescriptions as of 03/19/2023 - cyanocobalamin (VITAMIN B-12) 100 mcg tab Take 100 mcg by mouth once daily. - metoprolol succinate ER (TOPROL XL) 50 mg 24 hr tablet Take 1 tablet by mouth once daily. - levothyroxine (SYNTHROID) 25 mcg tablet Take 1 tablet by mouth once daily. Except 2 tabs by mouth every Sunday and Sunday - lisinopril (ZESTRIL) 40 mg tablet Take 1 tablet by mouth once daily. - acetaminophen (TYLENOL) 325 mg tablet Take 2 tablets by mouth every 4 hours as needed for pain. - bacitracin 500 unit/gram ointment Apply to affected area twice daily. - pregabalin (LYRICA) 75 mg capsule Take 75 mg by mouth daily at bedtime. - bioflav,lemon/vit Bcomp,C (LIPOFLAVONOID ORAL) Take by mouth. 1 tablet by mouth daily. - MAGNESIUM ORAL Take 1 tablet by mouth once daily. - multivit with calcium,iron,min (WOMEN'S MULTIPLE VITAMINS ORAL) Take 1 tablet by mouth once daily. - BIOTIN ORAL Take 1 tablet by mouth once daily. - cholecalciferol, vitamin D3, (VITAMIN D3 ORAL) Take 2,000 Units by mouth once daily. - alpha tocopheryl acetate (VITAMIN E) 400 unit capsule Take 400 Units by mouth once daily. - diphenhydrAMINE-Acetaminophen 25-500 mg tab Take 2 tablets by mouth at bedtime as needed. Problem List As Of Date 03/19/2023 Noted Resolved Chronic pain [G89.29] 06/03/2012 07/24/2019 Primary hypertension [I10] 06/03/2012 Hyperlipidemia [E78.5] 06/03/2012 History of Jovana thyroiditis [Z86.39] 06/03/2012 Osteoporosis [M81.0] 07/08/2012 08/09/2012 Lung nodules [R91.8] 07/08/2012 Psoriasis [L40.8] 10/18/2012 Eczematous dermatitis [L30.9] 10/18/2012 02/28/2017 Xerosis cutis [L85.3] 10/18/2012 02/28/2017 Pruritus [L29.9] 10/18/2012 02/28/2017 Excoriation [T14.8XXA] 10/18/2012 02/28/2017 Lichenification and lichen simplex chronicus [L*10/18/2012 Malignant neoplasm of upper-outer quadrant of l*05/28/2015 Low back pain [M54.50] 08/06/2015 07/24/2019 Pain in right hip [M25.551] 08/06/2015 07/24/2019 Thoracic back pain [M54.6] 08/06/2015 02/28/2017 Cervicalgia [M54.2] 08/06/2015 02/28/2017 Bilateral ankle pain [M25.571, M25.572] 10/01/2015 02/28/2017 Pain in left shoulder [M25.512] 10/29/2015 02/28/2017 Pain of left thumb [M79.645] 05/05/2016 02/28/2017 Chronic midline low back pain without sciatica *08/23/2016 02/28/2017 Colon cancer screening [Z12.11] 12/07/2016 12/07/2016 Trigger finger, acquired [M65.30] 09/26/2017 07/24/2019 Chronic pain syndrome [G89.4] 09/27/2017 11/28/2018 Acute pain of right shoulder [M25.511] 11/29/2017 11/28/2018 Low back pain radiating to right lower extremit*11/29/2017 07/24/2019 Cervicalgia [M54.2] 03/26/2018 Chronic midline low back pain without sciatica *03/26/2018 07/24/2019 Facet arthritis of lumbar region [M47.816] 11/06/2018 Stage 3a chronic kidney disease (HCC) [N18.31] 01/21/2019 DDD (degenerative disc disease), lumbar [M51.36]02/21/2019 Spinal stenosis of cervical region [M48.02] 04/29/2019 Spinal stenosis of lumbar region with neurogeni*04/29/2019 Chronic pain syndrome [G89.4] 08/25/2019 Pain in left hip [M25.552] 08/25/2019 Pain in right hip [M25.551] 08/25/2019 Left shoulder pain [M25.512] 02/19/2020 Right shoulder pain [M25.511] 02/19/2020 Arthritis of both glenohumeral joints [M19.011,*12/03/2019 Bleeding internal hemorrhoids [K64.8] 06/14/2022 History of colonic polyps [Z86.010] 06/14/2022 Problem [UPQ9632] 06/14/2022 Ectatic aorta (HCC) [I77.819] 06/14/2022 Fatty liver [K76.0] 06/14/2022 Sepsis (HCC) [A41.9] 11/05 (more content not included)... [facility] 03-19-2023 Note HNO ID: [id number] Author: Guerda Francisco RN Service: ? Author Type: Registered Nurse Type: Progress Notes Filed: 03/19/2023 11:54 AM Note Text: CDM Telephonic Outreach Provider Action/FYI Left VM. I also want to remind you about Healthy at Home. You may call [phone] seven (7) days a week from 8am-8pm for any need which arises. This includes weekends and holidays. A registered nurse will answer questions, help schedule appointments, place refill orders and ensure you receive the care necessary. Contacted for: Routine Telephonic Outreach Contact made with patient: No, left message. Guerda Francisco RN March 19, 2023 11:53 AM [facility] 03-19-2023 History of Presen t illness Narrative CDM Telephonic Outreach Provider Roberta/SILVIA Left VM. I also want to remind you about Healthy at Home. You may call [phone] seven (7) days a week from 8am-8pm for any need which arises. This includes weekends and holidays. A registered nurse will answer questions, help schedule appointments, place refill orders and ensure you receive the care necessary. Contacted for: Routine Telephonic Outreach Contact made with patient: No, left message. Guerda Francisco RN March 19, 2023 11:53 AM documented in this encounter [facility] 03-13-2023 Note HNO ID: [id number] Author: Fredi Galicia MD Service: ? Author Type: Physician Type: Progress Notes Filed: 03/13/2023 1:24 PM Note Text: HISTORY AND PHYSICAL Florecita Healy 1940 REFERRING PHYSICIAN: Tu Canela MD CHIEF COMPLAINT: Consult (Hernia/) HPI: Florecita is a 82 year old female with a complaint of a bulge and discomfort in her prior lower midline incision. The patient notes discomfort in this area with pressure. The symptoms have maintained, over the past few months. The patient notes no symptoms of bowel obstruction and denies nausea or vomiting. The patient was seen by her primary care physician who felt the patient has a hernia. Florecita was referred for evaluation and treatment. The patient is being seen by me today at the request of Dr. Tu Canela MD for my opinion and advice regarding Hernia of abdominal wall. PAST MEDICAL HISTORY Diagnosis Date Abnormal ultrasound of breast 12/02/15 Left Breast cancer of upper-outer quadrant of left female breast (HCC) Chronic obstructive pulmonary disease (COPD) (HCC) Chronic pain 06/03/2012 sees pain management. Diarrhea 11/06/2022 Hyperlipidemia 06/03/2012 Hypertension 06/03/2012 Nausea AND vomiting 11/06/2022 Osteopenia Psoriasis Pulmonary nodule Dr. Dawn Sepsis ([facility]) 11/05/2022 Snoring PAST SURGICAL HISTORY Procedure Laterality Date AMPUTATE TOE; IP JOINT BREAST BIOPSY Left 12/02/2015 BX/EXC LYMPH NODE OPEN DEEP AXILLARY NODE Left 05/11/2015 DELIVERY ONLY , low transverse CHOLECYSTECTOMY COLONOSCOPY 05/13/2001 normal COLONOSCOPY 01/02/2007 diverticulosis COLONOSCOPY FLX DX W/COLLJ SPEC WHEN PFRMD 09/04/2013 Colonoscopy COLONOSCOPY FLX DX W/COLLJ SPEC WHEN PFRMD 12/07/2016 Colonoscopy COLONOSCOPY SCREENING 05/30/2022 Dr Borrero 5 year F/U HYSTERECTOMY HX stil has one ovary INCISE FINGER TENDON SHEATH Right INCISE FINGER TENDON SHEATH Right MASTECTOMY, PARTIAL Left 05/11/2015 NEUROPLASTY AND/TRANSPOS MEDIAN NRV CARPAL TUNNE Right 08/01/2019 Right carpal tunnel release ORTHOPEDIC SURGERY HX Left 10/11/2017 3rd and 4th trigger finger release PERQ DEVICE PLACEMENT BREAST LOC 1ST LES W/GDNCE Left 05/11/2015 THYROIDECTOMY TOTAL/COMPLETE right sided thyroidectomy due to nodules. were benign XCAPSL CTRC RMVL INSJ IO LENS PROSTH W/O ECP 01/2015 Cataract Extraction with PC IOL Current Outpatient Medications Medication Sig cyanocobalamin (VITAMIN B-12) 100 mcg tab Take 100 mcg by mouth once daily. metoprolol succinate ER (TOPROL XL) 50 mg 24 hr tablet Take 1 tablet by mouth once daily. levothyroxine (SYNTHROID) 25 mcg tablet Take 1 tablet by mouth once daily. Except 2 tabs by mouth every Sunday and Sunday lisinopril (ZESTRIL) 40 mg tablet Take 1 tablet by mouth once daily. acetaminophen (TYLENOL) 325 mg tablet Take 2 tablets by mouth every 4 hours as needed for pain. bacitracin 500 unit/gram ointment Apply to affected area twice daily. pregabalin (LYRICA) 75 mg capsule Take 75 mg by mouth daily at bedtime. cholecalciferol, vitamin D3, (VITAMIN D3 ORAL) Take 2,000 Units by mouth once daily. alpha tocopheryl acetate (VITAMIN E) 400 unit capsule Take 400 Units by mouth once daily. diphenhydrAMINE-Acetaminophen 25-500 mg tab Take 2 tablets by mouth at bedtime as needed. bioflav,lemon/vit Bcomp,C (LIPOFLAVONOID ORAL) Take by mouth. 1 tablet by mouth daily. (Patient not taking: No sig reported) MAGNESIUM ORAL Take 1 tablet by mouth once daily. (Patient not taking: No sig reported) multivit with calcium,iron,min (WOMEN'S MULTIPLE VITAMINS ORAL) Take 1 tablet by mouth once daily. (Patient not taking: Reported on 03/13/2023) BIOTIN ORAL Take 1 tablet by mouth once daily. (Patient not taking: No sig reported) No current facility-administered medications for this visit. ALLERGIES: Animal Dander, Darvocet A500 [Propoxyphene N-Acetaminophen], Dust, Grass Pollen, Mold, Soma [Carisoprodol], and Trees PERSONAL HISTORY: Social History Tobacco Use Smoking status: Every Day Packs/day: 1.00 Years: 20.00 Pack years: 20.00 Types: Cigarettes Smokeless tobacco: Never Tobacco comments: Pt has cut back to 1/4 pack daily. Substance Use Topics Alcohol use: No Drug use: No FAMILY HISTORY: FAMILY HISTORY Problem Relation Age of Onset Heart Father other (Black Lung) Father Arthritis Mother RA other (gallbladder) Mother Diabetes Sister Cancer Sister kidney tumor Cancer Brother lung cancer REVIEW OF SYMPTOMS: The review of systems data was entered by the nurse and reviewed by me Nursing Notes: Shobha Arce 03/13/2023 10:52 AM Signed REVIEW OF SYSTEMS: General: The patient denies fatigue, denies weight loss, denies weight gain, denies feeling hot, and denies feelings of cold. Eyes: The patient denies glaucoma, NOTES eye injury/surgery, wears glasses or contacts. Ear/Nose/Throat: The patient NOTES al (more content not included)... [facility] 03-13-2023 History of Presen t illness Narrative HISTORY AND PHYSICAL Florecita Healy 1940 REFERRING PHYSICIAN: Tu Canela MD CHIEF COMPLAINT: Consult (Hernia/) HPI: Florecita is a 82 year old female with a complaint of a bulge and discomfort in her prior lower midline incision. The patient notes discomfort in this area with pressure. The symptoms have maintained, over the past few months. The patient notes no symptoms of bowel obstruction and denies nausea or vomiting. The patient was seen by her primary care physician who felt the patient has a hernia. Florecita was referred for evaluation and treatment. The patient is being seen by me today at the request of Dr. Tu Canela MD for my opinion and advice regarding Hernia of abdominal wall. PAST MEDICAL HISTORY Diagnosis Date Abnormal ultrasound of breast 12/02/15 Left Breast cancer of upper-outer quadrant of left female breast (HCC) Chronic obstructive pulmonary disease (COPD) (HCC) Chronic pain 06/03/2012 sees pain management. Diarrhea 11/06/2022 Hyperlipidemia 06/03/2012 Hypertension 06/03/2012 Nausea & vomiting 11/06/2022 Osteopenia Psoriasis Pulmonary nodule Dr. Dawn Sepsis ([facility]) 11/05/2022 Snoring PAST SURGICAL HISTORY Procedure Laterality Date AMPUTATE TOE; IP JOINT BREAST BIOPSY Left 12/02/2015 BX/EXC LYMPH NODE OPEN DEEP AXILLARY NODE Left 05/11/2015 DELIVERY ONLY , low transverse CHOLECYSTECTOMY COLONOSCOPY 05/13/2001 normal COLONOSCOPY 01/02/2007 diverticulosis COLONOSCOPY FLX DX W/COLLJ SPEC WHEN PFRMD 09/04/2013 Colonoscopy COLONOSCOPY FLX DX W/COLLJ SPEC WHEN PFRMD 12/07/2016 Colonoscopy COLONOSCOPY SCREENING 05/30/2022 Dr Borrero 5 year F/U HYSTERECTOMY HX stil has one ovary INCISE FINGER TENDON SHEATH Right INCISE FINGER TENDON SHEATH Right MASTECTOMY, PARTIAL Left 05/11/2015 NEUROPLASTY &/TRANSPOS MEDIAN NRV CARPAL TUNNE Right 08/01/2019 Right carpal tunnel release ORTHOPEDIC SURGERY HX Left 10/11/2017 3rd and 4th trigger finger release PERQ DEVICE PLACEMENT BREAST LOC 1ST LES W/GDNCE Left 05/11/2015 THYROIDECTOMY TOTAL/COMPLETE right sided thyroidectomy due to nodules. were benign XCAPSL CTRC RMVL INSJ IO LENS PROSTH W/O ECP 01/2015 Cataract Extraction with PC IOL Current Outpatient Medications Medication Sig cyanocobalamin (VITAMIN B-12) 100 mcg tab Take 100 mcg by mouth once daily. metoprolol succinate ER (TOPROL XL) 50 mg 24 hr tablet Take 1 tablet by mouth once daily. levothyroxine (SYNTHROID) 25 mcg tablet Take 1 tablet by mouth once daily. Except 2 tabs by mouth every Sunday and Sunday lisinopril (ZESTRIL) 40 mg tablet Take 1 tablet by mouth once daily. acetaminophen (TYLENOL) 325 mg tablet Take 2 tablets by mouth every 4 hours as needed for pain. bacitracin 500 unit/gram ointment Apply to affected area twice daily. pregabalin (LYRICA) 75 mg capsule Take 75 mg by mouth daily at bedtime. cholecalciferol, vitamin D3, (VITAMIN D3 ORAL) Take 2,000 Units by mouth once daily. alpha tocopheryl acetate (VITAMIN E) 400 unit capsule Take 400 Units by mouth once daily. diphenhydrAMINE-Acetaminophen 25-500 mg tab Take 2 tablets by mouth at bedtime as needed. bioflav,lemon/vit Bcomp,C (LIPOFLAVONOID ORAL) Take by mouth. 1 tablet by mouth daily. (Patient not taking: No sig reported) MAGNESIUM ORAL Take 1 tablet by mouth once daily. (Patient not taking: No sig reported) multivit with calcium,iron,min (WOMEN'S MULTIPLE VITAMINS ORAL) Take 1 tablet by mouth once daily. (Patient not taking: Reported on 03/13/2023) BIOTIN ORAL Take 1 tablet by mouth once daily. (Patient not taking: No sig reported) No current facility-administered medications for this visit. ALLERGIES: Animal Dander, Darvocet A500 [Propoxyphene N-Acetaminophen], Dust, Grass Pollen, Mold, Soma [Carisoprodol], and Trees PERSONAL HISTORY: Social History Tobacco Use Smoking status: Every Day Packs/day: 1.00 Years: 20.00 Pack years: 20.00 Types: Cigarettes Smokeless tobacco: Never Tobacco comments: Pt has cut back to 1/4 pack daily. Substance Use Topics Alcohol use: No Drug use: No FAMILY HISTORY: FAMILY HISTORY Problem Relation Age of Onset Heart Father other (Black Lung) Father Arthritis Mother RA other (gallbladder) Mother Diabetes Sister Cancer Sister kidney tumor Cancer Brother lung cancer REVIEW OF SYMPTOMS: The review of systems data was entered by the nurse and reviewed by ct Nursing Notes: Shobha Arce 03/13/2023 10:52 AM Signed REVIEW OF SYSTEMS: General: The patient denies fatigue, denies weight loss, denies weight gain, denies feeling hot, and denies feelings of cold. Eyes: The patient denies glaucoma, NOTES eye injury/surgery, wears glasses or contacts. Ear/Nose/Throat: The patient NOTES allergies, denies hayfever, denies ear infections, and denies bloody noses. Cardiovascular: The patient denies chest pain, denies heart disease, NOTES high blood pressure,denies cardiac stent, denies prior heart attack, denies irregular heart beat, denies high cholesterol, NOTES poor circulation, denies heart failure, other cardiac issues, denies claudication, NOTES cold feet, denies peripheral arterial stent. Respiratory: The patient denies tuberculosis, denies pneumonia, denies frequent cough, denies pulmonary embolism, denies shortness of breath, and denies coughing up blood. Gastrointestinal: The patient denies difficulty swallowing, denies acid reflux, denies ulcers, denies vomiting, denies jaundice/hepatitis, NOTES gallbladder problems, denies black or tarry stools, NOTES hemorrhoids, denies bleeding from rectum, denies diverticulitis, denies constipation, denies diarrhea, NOTES loss of stool control, and NOTES hernias. Kidney/Bladder: The patient denies kidney stones, denies urine infections, and denies bloody urine. Skin: The patient denies a history of skin cancer, denies bleeding/changing moles, and denies a history of skin rash. Neurologic: The patient denies a history of epilepsy/convulsions, NOTES headaches, denies head/spinal injuries, and denies stroke/TIA. Psychiatric: The patient denies psychiatric medications, denies depression, and denies voices, denies substance abuse. Endocrine: The patient NOTES thyroid disorders, denies diabetes, and denies hormonal problems. Hematologic: The patient NOTES a history of bruising, denies bleeding, and NOTES anemia, denies blood clots. Infections: The patient NOTES a history of measles and mumps, NOTES rheumatic fever, and denies sexually transmitted diseases. Musculoskeletal: The patient denies back pain/injury, NOTES back problems, denies sciatica, NOTES knee/foot trouble, NOTES arthritis, or denies gout. When was patient's last Mammogram screening? 2021 Last Colonoscopy: 05/30/2022 Shobha Arce PHYSICAL EXAMINATION: General: The patient is 82 year old female, well nourished, well hydrated in no acute distress. The patient is oriented to time, place, and person. VITALS: Blood pressure 140/86, pulse 79, temperature 36.2 C (97.1 F), temperature source Temporal, height 166.4 cm (5' 5.5 ), weight 68.6 kg (151 lb 3.2 oz), SpO2 98 %. Body mass index is 24.78 kg/m . HEENT: Normal cephalic, ataumatic, pupils are equally round, sclera are anicteric, mucous membranes are moist, oropharynx is clear. Neck has no masses, asymmetry or lymphadenopathy. Thyroid is unremarkable. Respiratory: Clear to auscultation and percussion. Normal respiratory excursion and pattern. Cardiac: Examination is regular rate and rhythm. Abdominal exam: Soft, nontender, with no palpable masses. No hepatosplenomegaly. A small incisional hernia Rectal exam: exam deferred Extremities: no clubbing, cyanosis or edema. No adenopathy. Other: LABORATORY VALUES: As Noted RADIOLOGIC STUDIES: As Noted Assessment IMPRESSION: prior lower midline incisional hernia PLAN: I do not think I want to take her to surgery immediately. I would observe this. I reviewed all the CAT scans I think it may be getting slightly bigger but it is quite actually hard to tell. I think the most recent CAT scan really does show that it is a hernia but it does not really go in and out like a true hernia would. She really was not having much of any tenderness when I palpated it. CAT scans really do not show that it is connecting to her bladder in any way and in fact they actually show some space in between the fascia and the bladder. I will see her back in 2 months and reexamine her and see how her symptoms have been going. If it looks larger or her symptoms are worse then I will do an open incisional hernia repair My findings have been communicated to Dr. Tu Canela MD via shared medical record. This note will be forwarded to Dr. Tu Canela MD. Diagnoses: (K43.9) Hernia of abdominal wall Return to Clinic: The patient is instructed to follow-up with me in 2 months. Fredi Galicia III, MD documented in this encounter [facility] 03-13-2023 Nurse Note REVIEW OF SYSTEMS: General: The patient denies fatigue, denies weight loss, denies weight gain, denies feeling hot, and denies feelings of cold. Eyes: The patient denies glaucoma, NOTES eye injury/surgery, wears glasses or contacts. Ear/Nose/Throat: The patient NOTES allergies, denies hayfever, denies ear infections, and denies bloody noses. Cardiovascular: The patient denies chest pain, denies heart disease, NOTES high blood pressure,denies cardiac stent, denies prior heart attack, denies irregular heart beat, denies high cholesterol, NOTES poor circulation, denies heart failure, other cardiac issues, denies claudication, NOTES cold feet, denies peripheral arterial stent. Respiratory: The patient denies tuberculosis, denies pneumonia, denies frequent cough, denies pulmonary embolism, denies shortness of breath, and denies coughing up blood. Gastrointestinal: The patient denies difficulty swallowing, denies acid reflux, denies ulcers, denies vomiting, denies jaundice/hepatitis, NOTES gallbladder problems, denies black or tarry stools, NOTES hemorrhoids, denies bleeding from rectum, denies diverticulitis, denies constipation, denies diarrhea, NOTES loss of stool control, and NOTES hernias. Kidney/Bladder: The patient denies kidney stones, denies urine infections, and denies bloody urine. Skin: The patient denies a history of skin cancer, denies bleeding/changing moles, and denies a history of skin rash. Neurologic: The patient denies a history of epilepsy/convulsions, NOTES headaches, denies head/spinal injuries, and denies stroke/TIA. Psychiatric: The patient denies psychiatric medications, denies depression, and denies voices, denies substance abuse. Endocrine: The patient NOTES thyroid disorders, denies diabetes, and denies hormonal problems. Hematologic: The patient NOTES a history of bruising, denies bleeding, and NOTES anemia, denies blood clots. Infections: The patient NOTES a history of measles and mumps, NOTES rheumatic fever, and denies sexually transmitted diseases. Musculoskeletal: The patient denies back pain/injury, NOTES back problems, denies sciatica, NOTES knee/foot trouble, NOTES arthritis, or denies gout. When was patient's last Mammogram screening? 2021 Last Colonoscopy: 05/30/2022 Shobha Arce documented in this encounter [facility] 03-05-2023 Miscellaneous Notes Patient was made aware of the results. Patient verbalizes understanding. Sheron French Ma Retry again this am. Cutlure may show uti. Finish antibiotic recheck ua in two weeks since showed blood. Left message for patient to call office. Urine shows what could be a uti. Culture is pending. I am going to call in antibiotic until it comes back so she is not waiting over the weekend documented in this encounter [facility] 03-02-2023 Note HNO ID: [id number] Author: Tu Canela MD Service: ? Author Type: Physician Type: Progress Notes Filed: 03/02/2023 12:52 PM Note Text: Patient presents with: Follow Up HPI: Patient presents today for office visit for follow up. HTN: Patient is compliant with meds Yes Monitors bp at home: Yes. States has been up. Feels that was controlled better with norvasc. Denies side effects: Yes. Chest pain: No. Dyspnea: No. Edema: Yes. States that she doesn't think the swelling wasn't any worse with the norvasc. Does not want to try a diuretic. Plus has some mild reduction in gfr. Palpitations: No. Syncope: No. Headache: No. Dizziness: No. Hasn't been seen here since was in the hospital in Oct. Has been following with plastics and vascular. 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 Can't afford the compression stockings she was ordered by Dr Proctor and insurance won't pay for them. Following with wound care as well and Dr. Tim. They are considering a vein ablation but she would need to pay for hose out of her own pocket. Lost weight while ill. HYPOTHYROID: Patient is compliant with medications: Yes Patient has changes in energy: No Patient has changes in hair or skin: No Patient has temperature intolerance: No Patient has weight changes: No Still complains of a lump at times in her lower abdomen. Changes size at times. Has had two ct scans in the last year. Last in October. No masses or hernia. Is having issues with urinary issues. She is worried about her bladder dropping. Has had a hysterectomy. Sugars were mildly up. Explained her kidney issues. Component Latest Ref Rng AND Units 02/27/2023 WBC 3.70 - 11.00 k/uL 5.38 RBC 3.90 - 5.20 m/uL 4.53 Hemoglobin 11.5 - 15.5 g/dL 12.6 Hematocrit 36.0 - 46.0 % 39.5 MCV 80.0 - 100.0 fL 87.2 MCH 26.0 - 34.0 pg 27.8 MCHC 30.5 - 36.0 g/dL 31.9 RDW-CV 11.5 - 15.0 % 15.5 (H) Platelet Count 150 - 400 k/uL 159 MPV 9.0 - 12.7 fL 11.3 Neut% % 70.2 Abs Neut (ANC) 1.45 - 7.50 k/uL 3.78 Lymph% % 18.6 Abs Lymph 1.00 - 4.00 k/uL 1.00 Amelia% % 9.3 Abs Amelia <0.87 k/uL 0.50 Eosin% % 0.6 Abs Eosin <0.46 k/uL 0.03 Baso% % 0.4 Abs Baso <0.11 k/uL <0.03 Immature Gran % % 0.9 IMMATURE GRANS (ABS) <0.10 k/uL 0.05 NRBC /100 WBC 0.0 Absolute nRBC <0.01 k/uL <0.01 DTYPE Auto Protein, Total 6.3 - 8.0 g/dL 7.1 Albumin 3.9 - 4.9 g/dL 3.9 Calcium 8.5 - 10.2 mg/dL 8.8 Bilirubin, Total 0.2 - 1.3 mg/dL 0.8 Alkaline Phosphatase 34 - 123 U/L 96 AST 13 - 35 U/L 12 (L) ALT 7 - 38 U/L 10 Glucose 74 - 99 mg/dL 112 (H) BUN 7 - 21 mg/dL 14 Creatinine 0.58 - 0.96 mg/dL 1.02 (H) Sodium 136 - 144 mmol/L 142 Potassium 3.7 - 5.1 mmol/L 3.8 Chloride 97 - 105 mmol/L 108 (H) CO2 22 - 30 mmol/L 23 Anion Gap 9 - 18 mmol/L 11 eGFR >=60 mL/min/1.73mA? 56 (L) Cholesterol, Total <200 mg/dL 143 Triglyceride <150 mg/dL 74 HDL Cholesterol >39 mg/dL 46 Non HDL Cholesterol <130 mg/dL 97 Fasting Time hrs 10 VLDL Cholesterol <30 mg/dL 15 TC:HDL Ratio <5.10 3.11 LDL Cholesterol <100 mg/dL 82 LDL:HDL Ratio <2.54 1.78 TSH 0.270 - 4.200 mIU/L 2.150 MEDICATIONS: Current Outpatient Medications Medication Sig cyanocobalamin (VITAMIN B-12) 100 mcg tab Take 100 mcg by mouth once daily. levothyroxine (SYNTHROID) 25 mcg tablet Take 1 tablet by mouth once daily. Except 2 tabs by mouth every Sunday and Sunday lisinopril (ZESTRIL) 40 mg tablet Take 1 tablet by mouth once daily. pregabalin (LYRICA) 75 mg capsule Take 75 mg by mouth daily at bedtime. metoprolol succinate ER (TOPROL XL) 25 mg 24 hr tablet Take 1 tablet by mouth once daily. multivit with calcium,iron,min (WOMEN'S MULTIPLE VITAMINS ORAL) Take 1 tablet by mouth once daily. cholecalciferol, vitamin D3, (VITAMIN D3 ORAL) Take 2,000 Units by mouth once daily. alpha tocopheryl acetate (VITAMIN E) 400 unit capsule Take 400 Units by mouth once daily. acetaminophen (TYLENOL) 325 mg tablet Take 2 tablets by mouth every 4 hours as needed for pain. bacitracin 500 unit/gram ointment Apply to affected area twice daily. bioflav,lemon/vit Bcomp,C (LIPOFLAVONOID ORAL) Take by mouth. 1 tablet by mouth daily. (Patient not taking: No sig reported) MAGNESIUM ORAL Take 1 tablet by mouth once daily. (Patient not taking: No sig reported) BIOTIN ORAL Take 1 tablet by mouth once daily. (Patient not taking: No sig reported) diphenhydrAMINE-Acetaminophen 25-500 mg tab Take 2 tablets by mouth at bedtime as needed. No current facility-administered medications for this visit. ALLERGIES: ALLERGIES Allergen Reactions Animal Dander Intolerance Darvocet A500 [Prop* Mental Status Change Dust Other: See Comments Grass Pollen Other: See Comments Mold Other: See Comments Soma [Carisoprodol] Swelling, Itching Trees Other: See Comments PAST MEDICAL HISTORY Diagnosis Date Abnormal ultrasou (more content not included)... [facility] 03-02-2023 History of Presen t illness Narrative Patient presents with: Follow Up HPI: Patient presents today for office visit for follow up. HTN: Patient is compliant with meds Yes Monitors bp at home: Yes. States has been up. Feels that was controlled better with norvasc. Denies side effects: Yes. Chest pain: No. Dyspnea: No. Edema: Yes. States that she doesn't think the swelling wasn't any worse with the norvasc. Does not want to try a diuretic. Plus has some mild reduction in gfr. Palpitations: No. Syncope: No. Headache: No. Dizziness: No. Hasn't been seen here since was in the hospital in Oct. Has been following with plastics and vascular. 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 Can't afford the compression stockings she was ordered by Dr Proctor and insurance won't pay for them. Following with wound care as well and Dr. Tim. They are considering a vein ablation but she would need to pay for hose out of her own pocket. Lost weight while ill. HYPOTHYROID: Patient is compliant with medications: Yes Patient has changes in energy: No Patient has changes in hair or skin: No Patient has temperature intolerance: No Patient has weight changes: No Still complains of a lump at times in her lower abdomen. Changes size at times. Has had two ct scans in the last year. Last in October. No masses or hernia. Is having issues with urinary issues. She is worried about her bladder dropping. Has had a hysterectomy. Sugars were mildly up. Explained her kidney issues. Component Latest Ref Rng & Units 02/27/2023 WBC 3.70 - 11.00 k/uL 5.38 RBC 3.90 - 5.20 m/uL 4.53 Hemoglobin 11.5 - 15.5 g/dL 12.6 Hematocrit 36.0 - 46.0 % 39.5 MCV 80.0 - 100.0 fL 87.2 MCH 26.0 - 34.0 pg 27.8 MCHC 30.5 - 36.0 g/dL 31.9 RDW-CV 11.5 - 15.0 % 15.5 (H) Platelet Count 150 - 400 k/uL 159 MPV 9.0 - 12.7 fL 11.3 Neut% % 70.2 Abs Neut (ANC) 1.45 - 7.50 k/uL 3.78 Lymph% % 18.6 Abs Lymph 1.00 - 4.00 k/uL 1.00 Amelia% % 9.3 Abs Amelia <0.87 k/uL 0.50 Eosin% % 0.6 Abs Eosin <0.46 k/uL 0.03 Baso% % 0.4 Abs Baso <0.11 k/uL <0.03 Immature Gran % % 0.9 IMMATURE GRANS (ABS) <0.10 k/uL 0.05 NRBC /100 WBC 0.0 Absolute nRBC <0.01 k/uL <0.01 DTYPE Auto Protein, Total 6.3 - 8.0 g/dL 7.1 Albumin 3.9 - 4.9 g/dL 3.9 Calcium 8.5 - 10.2 mg/dL 8.8 Bilirubin, Total 0.2 - 1.3 mg/dL 0.8 Alkaline Phosphatase 34 - 123 U/L 96 AST 13 - 35 U/L 12 (L) ALT 7 - 38 U/L 10 Glucose 74 - 99 mg/dL 112 (H) BUN 7 - 21 mg/dL 14 Creatinine 0.58 - 0.96 mg/dL 1.02 (H) Sodium 136 - 144 mmol/L 142 Potassium 3.7 - 5.1 mmol/L 3.8 Chloride 97 - 105 mmol/L 108 (H) CO2 22 - 30 mmol/L 23 Anion Gap 9 - 18 mmol/L 11 eGFR >=60 mL/min/1.73m 56 (L) Cholesterol, Total <200 mg/dL 143 Triglyceride <150 mg/dL 74 HDL Cholesterol >39 mg/dL 46 Non HDL Cholesterol <130 mg/dL 97 Fasting Time hrs 10 VLDL Cholesterol <30 mg/dL 15 TC:HDL Ratio <5.10 3.11 LDL Cholesterol <100 mg/dL 82 LDL:HDL Ratio <2.54 1.78 TSH 0.270 - 4.200 mIU/L 2.150 MEDICATIONS: Current Outpatient Medications Medication Sig cyanocobalamin (VITAMIN B-12) 100 mcg tab Take 100 mcg by mouth once daily. levothyroxine (SYNTHROID) 25 mcg tablet Take 1 tablet by mouth once daily. Except 2 tabs by mouth every Sunday and Sunday lisinopril (ZESTRIL) 40 mg tablet Take 1 tablet by mouth once daily. pregabalin (LYRICA) 75 mg capsule Take 75 mg by mouth daily at bedtime. metoprolol succinate ER (TOPROL XL) 25 mg 24 hr tablet Take 1 tablet by mouth once daily. multivit with calcium,iron,min (WOMEN'S MULTIPLE VITAMINS ORAL) Take 1 tablet by mouth once daily. cholecalciferol, vitamin D3, (VITAMIN D3 ORAL) Take 2,000 Units by mouth once daily. alpha tocopheryl acetate (VITAMIN E) 400 unit capsule Take 400 Units by mouth once daily. acetaminophen (TYLENOL) 325 mg tablet Take 2 tablets by mouth every 4 hours as needed for pain. bacitracin 500 unit/gram ointment Apply to affected area twice daily. bioflav,lemon/vit Bcomp,C (LIPOFLAVONOID ORAL) Take by mouth. 1 tablet by mouth daily. (Patient not taking: No sig reported) MAGNESIUM ORAL Take 1 tablet by mouth once daily. (Patient not taking: No sig reported) BIOTIN ORAL Take 1 tablet by mouth once daily. (Patient not taking: No sig reported) diphenhydrAMINE-Acetaminophen 25-500 mg tab Take 2 tablets by mouth at bedtime as needed. No current facility-administered medications for this visit. ALLERGIES: ALLERGIES Allergen Reactions Animal Dander Intolerance Darvocet A500 [Prop* Mental Status Change Dust Other: See Comments Grass Pollen Other: See Comments Mold Other: See Comments Soma [Carisoprodol] Swelling, Itching Trees Other: See Comments PAST MEDICAL HISTORY Diagnosis Date Abnormal ultrasound of breast 12/02/15 Left Breast cancer of upper-outer quadrant of left female breast (HCC) Chronic obstructive pulmonary disease (COPD) (HCC) Chronic pain 06/03/2012 sees pain management. Diarrhea 11/06/2022 Hyperlipidemia 06/03/2012 Hypertension 06/03/2012 Nausea & vomiting 11/06/2022 Osteopenia Psoriasis Pulmonary nodule Dr. Dawn Sepsis ([facility]) 11/05/2022 Snoring PAST SURGICAL HISTORY Procedure Laterality Date AMPUTATE TOE; IP JOINT BREAST BIOPSY Left 12/02/2015 BX/EXC LYMPH NODE OPEN DEEP AXILLARY NODE Left 05/11/2015 DELIVERY ONLY , low transverse CHOLECYSTECTOMY COLONOSCOPY 05/13/2001 normal COLONOSCOPY 01/02/2007 diverticulosis COLONOSCOPY FLX DX W/COLLJ SPEC WHEN PFRMD 09/04/2013 Colonoscopy COLONOSCOPY FLX DX W/COLLJ SPEC WHEN PFRMD 12/07/2016 Colonoscopy COLONOSCOPY SCREENING 05/30/2022 Dr Borrero 7 year F/U HYSTERECTOMY HX stil has one ovary INCISE FINGER TENDON SHEATH Right INCISE FINGER TENDON SHEATH Right MASTECTOMY, PARTIAL Left 05/11/2015 NEUROPLASTY &/TRANSPOS MEDIAN NRV CARPAL TUNNE Right 08/01/2019 Right carpal tunnel release ORTHOPEDIC SURGERY HX Left 10/11/2017 3rd and 4th trigger finger release PERQ DEVICE PLACEMENT BREAST LOC 1ST LES W/GDNCE Left 05/11/2015 THYROIDECTOMY TOTAL/COMPLETE right sided thyroidectomy due to nodules. were benign XCAPSL CTRC RMVL INSJ IO LENS PROSTH W/O ECP 01/2015 Cataract Extraction with PC IOL FAMILY HISTORY Problem Relation Age of Onset Heart Father other (Black Lung) Father Arthritis Mother RA other (gallbladder) Mother Diabetes Sister Cancer Sister kidney tumor Cancer Brother lung cancer Social History Tobacco Use Smoking status: Former Packs/day: 1.00 Years: 20.00 Pack years: 20.00 Types: Cigarettes Smokeless tobacco: Never Tobacco comments: Pt has cut back to 1/4 pack daily. Substance Use Topics Alcohol use: No Drug use: No Reviewed current medications, allergies, past medical history, surgical history, family history and social history today. REVIEW OF SYSTEMS All other reviewed and negative other than HPI. HEALTH MAINTENANCE: Reviewed health maintenance issues today and recommended the following in detail. BP CONTROLLED (<130/80) Never done DTAP,TDAP,TD(2 - Tdap) due on 09/03/2022 ADVANCE DIRECTIVE DISCUSSION due on 11/12/2022 DEPRESSION ASSESSMENT Never done VITALS: BP 162/102 Pulse 63 Wt 68 kg (150 lb) SpO2 99% BMI 24.96 kg/m Last 4 Encounter Wt Readings: Date: Wt: 01/09/2023 67.6 kg (149 lb) 11/05/2022 76 kg (167 lb 8.8 oz) 06/14/2022 69 kg (152 lb 3.2 oz) 06/09/2022 70.3 kg (155 lb) PHYSICAL EXAMINATION: General appearance: Well appearing, alert, in no acute distress, well-hydrated, well nourished. Skin: venous stasis changes. Head: Normocephalic, no masses, lesions, tenderness or abnormalities Lungs: Lungs clear to auscultation. No wheezing, rhonchi, rales Heart: RRR without murmur, gallop, or rubs. No ectopy Abdomen: Normal abdominal exam, Abdomen soft, non-tender. Bowel sounds normal. No masses, organomegaly, has a fullness on standing near her lower midline incision. Is reducible. Suspect a hernia. Extremities: one plus edema. Venous stasis change. Musculoskeletal: No joint swelling, deformity, or tenderness ASSESSMENT/PLAN: 1. Hyperglycemia - ICD9: 790.29, ICD10: R73.9 (primary diagnosis) Follow sugars. - HGB A1C 2. Venous insufficiency - ICD9: 459.81, ICD10: I87.2 - wears hose. Follow with vascular. 3. Urinary urgency - ICD9: 788.63, ICD10: R39.15 - see urogyn. Check urine. - URINALYSIS, WITH MICROSCOPIC - URINE CULTURE - CONSULT TO UROLOGY 4. Primary hypertension - ICD9: 401.9, ICD10: I10 - suboptimal control - increase metoprolol and follow up in one month - Goal of BP <130/80 - METOPROLOL SUCCINATE ER 50 MG TABLET,EXTENDED RELEASE 24 HR 5. Hyperlipidemia, unspecified hyperlipidemia type - ICD9: 272.4, ICD10: E78.5 - stable. 6. Urinary retention - ICD9: 788.20, ICD10: R33.9 - as above. - CONSULT TO UROLOGY 7. Stage 3a chronic kidney disease (HCC) - ICD9: 585.3, ICD10: N18.31 - as above. 8. Postoperative hypothyroidism - ICD9: 244.0, ICD10: E89.0 - stable 9. Hernia of abdominal wall - ICD9: 553.20, ICD10: K43.9 Her cts have not shown anything but I agree with her on standing I may be feeling a ventral hernia near her old incision. Red flags for re-assessment reviewed with patient in detail. - CONSULT TO GENERAL SURGERY Tu Canela MD RTO in one month for bp check with Bernard Velez. documented in this encounter [facility] 02-27-2023 Miscellaneous Notes PA submitted on line Currently pending review Called patient and left Vm with update Will inform patient of determination once received. Patient calling to request to do prior authorization for her compression stockings Patient called and spoke with her insurance company and the typically do not cover the compression, but could attempt to do a PA Called [employer] unable to process PA as they are having system issues. Attempted online request and system unavailable as well Will have to attempt at a later time Patient informed, will contact with an update once received documented in this encounter [facility] 02-16-2023 Miscellaneous Notes TC to patient who verbalizes understanding and has no further questions at this time. CURLY Hassan Labs ordered. During CDM outreach pt asking if she needs any lab work, like a TSH level,drawn prior to OV 02/21/23? Please have office clinical staff contact patient directly with physician response. documented in this encounter [facility] 02-15-2023 Miscellaneous Notes Requestor:Patient Patient is identified by name and birthdate: Yes Patient reminded to check with pharmacy in 24-48 hours: Yes Prescriber Verified: Yes Pharmacy benefits have been verified: No Pharmacy updated in Epic: Yes Is medication controlled substance: No Medication instructions verified (dose, dosing instructions [sig], dispense amount [30 or 90 day supply], refills): Yes -If medication is not on the MAR please get additional information Are any other medications due for a refill in the next 3 months: No Requested Prescriptions Pending Prescriptions Disp Refills lisinopril (ZESTRIL) 40 mg tablet 90 tablet 1 Sig: Take 1 tablet by mouth once daily. documented in this encounter [facility] 02-15-2023 Miscellaneous Notes Requestor:Patient Patient is identified by name and birthdate: Yes Patient reminded to check with pharmacy in 24-48 hours: Yes Prescriber Verified: Yes Pharmacy benefits have been verified: No Pharmacy updated in Epic: Yes Is medication controlled substance: No Medication instructions verified (dose, dosing instructions [sig], dispense amount [30 or 90 day supply], refills): Yes -If medication is not on the MAR please get additional information Are any other medications due for a refill in the next 3 months: No Requested Prescriptions Pending Prescriptions Disp Refills levothyroxine (SYNTHROID) 25 mcg tablet 114 tablet 3 Sig: Take 1 tablet by mouth once daily. Except 2 tabs by mouth every Sunday and Sunday documented in this encounter [facility] 02-15-2023 Note Patient Outreach ([facility] [place]) FLORECITA HEALY ([id number]) 1940 F Date Time Provider Department 02/15/23 GUERDA FRANCISCO During your visit today, we recorded the following information about you: Guerda Francisco, RN 02/15/2023 2:45 PM Signed [facility] TELEPHONIC OUTREACH Provider Action/FYI: Introduced self as new PCC Health goal, fall risk and ADL assessments completed. Encouraged to discuss at upcoming OV with PCP that she thinks her bladder has dropped, has frequent urination and has a need to void if bladder area is pressed on-wears panty liner since July 2022 when started on metoprolol. Lump in center of abdomen by bladder. Has been checked for hernia. Denies pain or burning with urination. No odor. Appointments for Next 60 Days Date Time Provider Location Dept Phone 03/02/2023 10:00 AM TU CANELA [facility] [phone] States she needs refill of lisinopril and levothyroxine before OV. Will pend in separate refill encounters. Wondering if she needs any labs drawn before OV 02/21/23? Will send telephone encounter to PCP to advise. I also want to remind you about Healthy at Home. You may call [phone] seven (7) days a week from 8am-8pm for any need which arises. This includes weekends and holidays. A registered nurse will answer questions, help schedule appointments, place refill orders and ensure you receive the care necessary. Contact made with patient: Yes Patient identified by name and . Discussed care with patient It?s nice talking to you again. As a reminder, this is our bi-weekly check-in where I will be asking you questions about your health. This will only take a few minutes of your time. Is this a good time? Yes Symptoms What Chronic Disease(s) does the patient have: CKD Do you check your blood pressures at home? Yes, Enter readings: occassionally Do you have new or worse shortness of breath with activity? No Do you feel like you are dehydrated for any reason, including not being able to eat or drink normally, or having less urine/much darker urine than normal for you? No Do you check your daily weight at home? Yes-rarely, Have you noticed a sudden gain in weight greater than three pounds in a day or three pounds in a week? No Are you having any other symptoms that your PCP needs to know about? Yes Symptoms: Thinks her bladder has dropped, frequent urination and need to void if bladder area is pressed on-wears panty liner since July 2022 when started on metoprolol. Lump in center of abdomen by bladder. Has been checked for hernia. States PCP aware. Symptom Escalation LINDA Education Ordered -: No The patient required an escalation for symptom(s)? No Medications Do you have any questions about taking your medication or which medications you should be on? No Do you need any medication refills at this time, including any of the medications you might take only when needed? No Social We would like to make sure you have what you need so that your basic needs are met- including your personal safety, food, housing, transportation and medications? Would you like to speak with a social work team assembly line machine operator to help give you support for any of these needs? No-Not addressed this call It can be normal to feel anxious or down during a time like this. Would you like to talk to a mental health professional about how you have been feeling? No-Not addressed this call Closing Thank you for taking the time to talk with me today. We want to work with you to ensure that we are keeping your medical condition(s) well-controlled and to keep you healthy and out of the doctor's office or hospital. It?s also not too late for me to sign you up for automated weekly questionnaires through [employer]. This is an easy way for us to stay connected each week. Are you interested? No, I understand. We can always sign you up in the future if you change your mind. Just as a reminder, will continue to call you every other week to check in on your health. Our calls should take 10-15 minutes or less. Remember, if you have concerns in between our calls, please call your PCP's office right away. Thank you. Enter next patient outreach date for two weeks on the same day of the week as today in the Track Pt Outreach and End outreach. Allergies As of Date: 02/15/2023 Noted Allergy Reaction ANIMAL DANDER 08/02/2016 5 - Intolerance DARVOCET A500 (PROPOXYPHENE N-SELENE*06/03/2012 1 - Mental Status Change DUST 08/02/2016 14 - Other: See Comments GRASS POLLEN 08/02/2016 14 - Other: See Comments MOLD 08/02/2016 14 - Other: See Comments SOMA (CARISOPRODOL) 06/03/2012 7 - Swelling 9 - Itching TREES 08/02/2016 14 - Other: See Comments Date Reviewed: 02/13/2023 Reviewed by: Parul Avalos RN - Fully Assessed Reason for Visit: Community Monitoring Outreach [Other] Cmt: Telephonic (more content not included)... [facility] 02-15-2023 Note HNO ID: [id number] Author: Guerda Francisco RN Service: ? Author Type: Registered Nurse Type: Progress Notes Filed: 02/15/2023 2:45 PM Note Text: [facility]IGHT [facility] TELEPHONIC OUTREACH Provider Action/FYI: Introduced self as new PCC Health goal, fall risk and ADL assessments completed. Encouraged to discuss at upcoming OV with PCP that she thinks her bladder has dropped, has frequent urination and has a need to void if bladder area is pressed on-wears panty liner since July 2022 when started on metoprolol. Lump in center of abdomen by bladder. Has been checked for hernia. Denies pain or burning with urination. No odor. Appointments for Next 60 Days Date Time Provider Location Dept Phone 03/02/2023 10:00 AM [place] [facility] [phone] States she needs refill of lisinopril and levothyroxine before OV. Will pend in separate refill encounters. Wondering if she needs any labs drawn before OV 02/21/23? Will send telephone encounter to PCP to advise. I also want to remind you about Healthy at Home. You may call [phone] seven (7) days a week from 8am-8pm for any need which arises. This includes weekends and holidays. A registered nurse will answer questions, help schedule appointments, place refill orders and ensure you receive the care necessary. Contact made with patient: Yes Patient identified by name and . Discussed care with patient It?s nice talking to you again. As a reminder, this is our bi-weekly check-in where I will be asking you questions about your health. This will only take a few minutes of your time. Is this a good time? Yes Symptoms What Chronic Disease(s) does the patient have: CKD Do you check your blood pressures at home? Yes, Enter readings: occassionally Do you have new or worse shortness of breath with activity? No Do you feel like you are dehydrated for any reason, including not being able to eat or drink normally, or having less urine/much darker urine than normal for you? No Do you check your daily weight at home? Yes-rarely, Have you noticed a sudden gain in weight greater than three pounds in a day or three pounds in a week? No Are you having any other symptoms that your PCP needs to know about? Yes Symptoms: Thinks her bladder has dropped, frequent urination and need to void if bladder area is pressed on-wears panty liner since July 2022 when started on metoprolol. Lump in center of abdomen by bladder. Has been checked for hernia. States PCP aware. Symptom Escalation LINDA Education Ordered -: No The patient required an escalation for symptom(s)? No Medications Do you have any questions about taking your medication or which medications you should be on? No Do you need any medication refills at this time, including any of the medications you might take only when needed? No Social We would like to make sure you have what you need so that your basic needs are met- including your personal safety, food, housing, transportation and medications? Would you like to speak with a social work team assembly line machine operator to help give you support for any of these needs? No-Not addressed this call It can be normal to feel anxious or down during a time like this. Would you like to talk to a mental health professional about how you have been feeling? No-Not addressed this call Closing Thank you for taking the time to talk with me today. We want to work with you to ensure that we are keeping your medical condition(s) well-controlled and to keep you healthy and out of the doctor's office or hospital. It?s also not too late for me to sign you up for automated weekly questionnaires through [employer]. This is an easy way for us to stay connected each week. Are you interested? No, I understand. We can always sign you up in the future if you change your mind. Just as a reminder, will continue to call you every other week to check in on your health. Our calls should take 10-15 minutes or less. Remember, if you have concerns in between our calls, please call your PCP's office right away. Thank you. Enter next patient outreach date for two weeks on the same day of the week as today in the Track Pt Outreach and End outreach. [facility] 02-15-2023 History of Presen t illness Narrative [facility] TELEPHONIC OUTREACH Provider Action/FYI: Introduced self as new PCC Health goal, fall risk and ADL assessments completed. Encouraged to discuss at upcoming OV with PCP that she thinks her bladder has dropped, has frequent urination and has a need to void if bladder area is pressed on-wears panty liner since July 2022 when started on metoprolol. Lump in center of abdomen by bladder. Has been checked for hernia. Denies pain or burning with urination. No odor. Appointments for Next 60 Days Date Time Provider Location Dept Phone 03/02/2023 10:00 AM [place] TU Abdullahi [facility] [phone] States she needs refill of lisinopril and levothyroxine before OV. Will pend in separate refill encounters. Wondering if she needs any labs drawn before OV 02/21/23? Will send telephone encounter to PCP to advise. I also want to remind you about Healthy at Home. You may call [phone] seven (7) days a week from 8am-8pm for any need which arises. This includes weekends and holidays. A registered nurse will answer questions, help schedule appointments, place refill orders and ensure you receive the care necessary. Contact made with patient: Yes Patient identified by name and . Discussed care with patient It s nice talking to you again. As a reminder, this is our bi-weekly check-in where I will be asking you questions about your health. This will only take a few minutes of your time. Is this a good time? Yes Symptoms What Chronic Disease(s) does the patient have: CKD Do you check your blood pressures at home? Yes, Enter readings: occassionally Do you have new or worse shortness of breath with activity? No Do you feel like you are dehydrated for any reason, including not being able to eat or drink normally, or having less urine/much darker urine than normal for you? No Do you check your daily weight at home? Yes-rarely, Have you noticed a sudden gain in weight greater than three pounds in a day or three pounds in a week? No Are you having any other symptoms that your PCP needs to know about? Yes Symptoms: Thinks her bladder has dropped, frequent urination and need to void if bladder area is pressed on-wears panty liner since July 2022 when started on metoprolol. Lump in center of abdomen by bladder. Has been checked for hernia. States PCP aware. Symptom Escalation LINDA Education Ordered -: No The patient required an escalation for symptom(s)? No Medications Do you have any questions about taking your medication or which medications you should be on? No Do you need any medication refills at this time, including any of the medications you might take only when needed? No Social We would like to make sure you have what you need so that your basic needs are met- including your personal safety, food, housing, transportation and medications? Would you like to speak with a social work team assembly line machine operator to help give you support for any of these needs? No-Not addressed this call It can be normal to feel anxious or down during a time like this. Would you like to talk to a mental health professional about how you have been feeling? No-Not addressed this call Closing Thank you for taking the time to talk with me today. We want to work with you to ensure that we are keeping your medical condition(s) well-controlled and to keep you healthy and out of the doctor's office or hospital. It s also not too late for me to sign you up for automated weekly questionnaires through [employer]. This is an easy way for us to stay connected each week. Are you interested? No, I understand. We can always sign you up in the future if you change your mind. Just as a reminder, will continue to call you every other week to check in on your health. Our calls should take 10-15 minutes or less. Remember, if you have concerns in between our calls, please call your PCP's office right away. Thank you. Enter next patient outreach date for two weeks on the same day of the week as today in the Track Pt Outreach and End outreach. documented in this encounter [facility] 02-13-2023 Note HNO ID: [id number] Author: Rc Rodriguez MD Service: ? Author Type: Physician Type: Progress Notes Filed: 02/14/2023 1:03 PM Note Text: INFECTIOUS DISEASE WOUND CENTER NOTE Patient Name: Florecita Healy Date: 02/13/2023 ASSESSMENT: Cellulitis, RLE COPD Hypertension Hyperlipidemia Breast cancer Chronic pain (pain management) Psoriasis Osteopenia PLAN: Continue to monitor off antibiotics Monitor for signs of infection. These were discussed in details with her Compression compliance emphasized Vascular surgery follow-up has been scheduled Follow-up with infectious disease at the wound center in 3 months per patient's wishes and she wants to continue to follow-up with me sporadically INTERVAL HISTORY: ROS done with pt and negative unless stated. Doing well off antibiotics. No signs of infection. Received a dose of steroids intramuscularly due to possible psoriasis that has led to improvement in her scaly skin rash MEDICATIONS: baclofen (LIORESAL) 5 mg tablet Take 1 tablet by mouth daily at bedtime. Once at bed time, daily acetaminophen (TYLENOL) 325 mg tablet Take 2 tablets by mouth every 4 hours as needed for pain. bacitracin 500 unit/gram ointment Apply to affected area twice daily. pregabalin (LYRICA) 75 mg capsule Take 75 mg by mouth daily at bedtime. 1/2 a table (75 mg) once a day at night metoprolol succinate ER (TOPROL XL) 25 mg 24 hr tablet Take 1 tablet by mouth once daily. lisinopril (ZESTRIL, PRINIVIL) 40 mg tablet Take 1 tablet by mouth once daily. levothyroxine (SYNTHROID) 25 mcg tablet Take 1 tablet by mouth once daily. Except 2 tabs by mouth every Sunday and Sunday bioflav,lemon/vit Bcomp,C (LIPOFLAVONOID ORAL) Take by mouth. 1 tablet by mouth daily. (Patient not taking: No sig reported) MAGNESIUM ORAL Take 1 tablet by mouth once daily. (Patient not taking: No sig reported) multivit with calcium,iron,min (WOMEN'S MULTIPLE VITAMINS ORAL) Take 1 tablet by mouth once daily. (Patient not taking: No sig reported) BIOTIN ORAL Take 1 tablet by mouth once daily. (Patient not taking: No sig reported) cholecalciferol, vitamin D3, (VITAMIN D3 ORAL) Take 2,000 Units by mouth once daily. alpha tocopheryl acetate (VITAMIN E) 400 unit capsule Take 400 Units by mouth once daily. diphenhydrAMINE-Acetaminophen 25-500 mg tab Take 2 tablets by mouth at bedtime as needed. PHYSICAL EXAM: Vital signs: stable, afeb General: alert, oriented, NAD Lungs: bilaterally clear to auscultation Heart: regular rate and rhythm Abdomen: soft, non tender, non distended, BS+ Extremities: no swollen joints Skin: no rash Right leg skin discoloration secondary to chronic venous insufficiency stigmata. Dorsum of the foot wound has healed completely. No signs of infection, cellulitis. No drainage Lab data: reviewed WBC (k/uL) Date Value 11/13/2022 4.94 11/12/2022 4.30 11/11/2022 3.68 11/01/2021 4.45 04/01/2021 5.25 03/08/2020 5.79 Hemoglobin (g/dL) Date Value 11/13/2022 10.1 11/12/2022 9.7 11/11/2022 10.1 11/01/2021 12.9 04/01/2021 12.4 03/08/2020 12.2 INR (no units) Date Value 11/05/2022 1.0 Sodium (mmol/L) Date Value 11/13/2022 137 11/12/2022 136 11/11/2022 137 11/01/2021 139 04/01/2021 141 03/08/2020 143 Potassium (mmol/L) Date Value 11/13/2022 4.7 11/12/2022 4.2 11/11/2022 3.6 11/01/2021 4.1 04/01/2021 4.0 03/08/2020 3.8 CO2 (mmol/L) Date Value 11/13/2022 28 11/12/2022 25 11/11/2022 25 11/01/2021 24 04/01/2021 25 03/08/2020 22 BUN (mg/dL) Date Value 11/13/2022 12 11/12/2022 11 11/11/2022 10 11/01/2021 16 04/01/2021 16 03/08/2020 17 Creatinine (mg/dL) Date Value 11/13/2022 1.00 11/12/2022 0.83 11/11/2022 0.74 11/01/2021 0.96 04/01/2021 1.00 03/08/2020 0.99 AST (U/L) Date Value 11/05/2022 17 11/01/2021 13 04/01/2021 14 03/08/2020 16 ALT (U/L) Date Value 11/05/2022 11 11/01/2021 9 04/01/2021 8 03/08/2020 9 Bilirubin, Total (mg/dL) Date Value 11/05/2022 1.2 11/01/2021 0.6 04/01/2021 0.6 03/08/2020 0.6 Alkaline Phosphatase (U/L) Date Value 11/05/2022 85 11/01/2021 103 04/01/2021 94 03/08/2020 98 WSR (mm/hr) Date Value 08/02/2016 8 06/04/2015 4 06/23/2013 8 12/26/2012 2 Sed Rate, Westergren (mm/hr) Date Value 11/05/2022 46 Lactate (mmol/L) Date Value 11/05/2022 1.0 11/05/2022 2.3 Sepsis Lactate (mmol/L) Date Value 11/06/2022 1.3 11/05/2022 2.2 Vancomycin (ug/mL) Date Value 11/08/2022 8.2 Microbiology data: reviewed Imaging data: reviewed Rc Rodriguez MD Pager: [facility] 02-13-2023 Note HNO ID: [id number] Author: Jannie Proctor DO Service: Vascular Surgery Author Type: Physician Type: Progress Notes Filed: 02/26/2023 10:45 AM Note Text: NAME: FLORECITA HEALY [facility] NO: [id number] DATE OF SERVICE: 02/13/2023 Subjective: Ms. Healy is here to follow up on vascular lab testing. In October, she had a significant bout of cellulitis and she has some recurrent ulcerations. She follows up with Dr. Tim with Dermatology here. She said she has been treating her for psoriasis of her legs and she has had this diffuse rash all over. Her right foot is still remaining purple and cyanotic. She does wear compression regularly. She follows up with Dr. Dorsey at the [facility]. Objective: Her vital signs are stable. She is in no distress. She does have some cyanosis, purplish discoloration of her right foot. She has a little slight on the left. Reviewed her venous reflux testing and PVRs. She had PVRs today, which were normal. Her ANA on the right was 1.08, on the left was 1.1. She had venous reflux testing in [place] in April and she had bilateral GSV reflux, left greater than right. In December, she had reflux testing done here, which again confirmed both findings. She does have reflux throughout most of her GSV on that right side. Assessment/Plan: 1. Venous reflux. 2. Symptomatic varicose veins. Reviewed the findings with Ms. Healy. She may benefit from a right, possibly then left, GSV ablation. Reviewed the risks, benefits and alternatives. She would like to proceed. We discussed that possibly all of her symptoms are not secondary to this venous disease; however, it may help with some of the symptoms and some of the discoloration that she is experiencing, however, not all of it. She is agreeable to this. We will have the office arrange and schedule. Pramod Martins/089 Audio #: [id number] Date Dictated: 02/13/2023 08:28:09 Date Typed: 02/19/2023 07:54:47 Date Revised: [facility] 02-13-2023 Note HNO ID: [id number] Author: Jannie Proctor DO Service: ? Author Type: Physician Type: Progress Notes Filed: 02/28/2023 11:51 PM Note Text: This office note has been dictated. Jannie Proctor DO [facility] 02-13-2023 History of Presen t illness Narrative This office note has been dictated. Jannie Proctor DO NAME: FLORECITA HEALY [facility] NO: [id number] DATE OF SERVICE: 02/13/2023 Subjective: Ms. Healy is here to follow up on vascular lab testing. In October, she had a significant bout of cellulitis and she has some recurrent ulcerations. She follows up with Dr. Tim with Dermatology here. She said she has been treating her for psoriasis of her legs and she has had this diffuse rash all over. Her right foot is still remaining purple and cyanotic. She does wear compression regularly. She follows up with Dr. Dorsey at the [facility]. Objective: Her vital signs are stable. She is in no distress. She does have some cyanosis, purplish discoloration of her right foot. She has a little slight on the left. Reviewed her venous reflux testing and PVRs. She had PVRs today, which were normal. Her ANA on the right was 1.08, on the left was 1.1. She had venous reflux testing in [place] in April and she had bilateral GSV reflux, left greater than right. In December, she had reflux testing done here, which again confirmed both findings. She does have reflux throughout most of her GSV on that right side. Assessment/Plan: 1. Venous reflux. 2. Symptomatic varicose veins. Reviewed the findings with Ms. Healy. She may benefit from a right, possibly then left, GSV ablation. Reviewed the risks, benefits and alternatives. She would like to proceed. We discussed that possibly all of her symptoms are not secondary to this venous disease; however, it may help with some of the symptoms and some of the discoloration that she is experiencing, however, not all of it. She is agreeable to this. We will have the office arrange and schedule. Jannie Proctor D.O. [id number] Audio #: [id number] Date Dictated: 02/13/2023 08:28:09 Date Typed: 02/19/2023 07:54:47 Date Revised: documented in this encounter [facility] 01-19-2023 Note HNO ID: [id number] Author: Sheron French Ma Service: ? Author Type: ? Type: Progress Notes Filed: 01/19/2023 9:13 AM Note Text: Patient notified [facility] 01-18-2023 Note HNO ID: [id number] Author: Tu Canela MD Service: ? Author Type: Physician Type: Progress Notes Filed: 01/18/2023 4:53 PM Note Text: Let her know rx sent [facility] 01-18-2023 Note HNO ID: [id number] Author: Kendra Warner Population Health Navigator Service: ? Author Type: ? Type: Progress Notes Filed: 01/18/2023 3:00 PM Note Text: POPULATION HEALTH NAVIGATION OUTREACH Action/FYI I spoke to patient and scheduled PCP follow up for February. Dr. Canela: Patient asking if you would refill her Baclofen for her, she stated she is no longer going to pain management and is no longer taking her Lyrica or Hydrocodone. She stated she does not want to go back to pain management for a refill, informed her I would ask if this is something you would refill. Patient Identified by Name and : YES, via phone Outreach Outcome/Action Spoke to patient / parent / legal guardian: Patient scheduled Did you use a PCP flex slot to schedule this appointment? No Reason for Outreach [facility] Payer: Payor: [employer] MEDICARE / Plan: [employer] / Product Type: HMO / Care Gap Reviewed:: Follow-up appointment Reminder: Reminder note to check Health Maintenance for items below Health Maintenance items due: BP CONTROLLED (<130/80) Never done DTAP,TDAP,TD(2 - Tdap) due on 09/03/2022 ADVANCE DIRECTIVE DISCUSSION due on 11/12/2022 DEPRESSION ASSESSMENT Never done Navigation Signature: Kendra Warner Population Health Navigator January 18, 2023 2:56 PM [facility] 01-18-2023 Miscellaneous Notes Addended by: TU CANELA on: 01/18/2023 04:54 PM Modules accepted: Orders documented in this encounter [facility] 01-18-2023 History of Presen t illness Narrative Let her know rx sent POPULATION HEALTH NAVIGATION OUTREACH Action/FYI I spoke to patient and scheduled PCP follow up for February. Dr. Canela: Patient asking if you would refill her Baclofen for her, she stated she is no longer going to pain management and is no longer taking her Lyrica or Hydrocodone. She stated she does not want to go back to pain management for a refill, informed her I would ask if this is something you would refill. Patient Identified by Name and : YES, via phone Outreach Outcome/Action Spoke to patient / parent / legal guardian: Patient scheduled Did you use a PCP flex slot to schedule this appointment? No Reason for Outreach [facility] Payer: Payor: [employer] MEDICARE / Plan: [employer] PLUS / Product Type: HMO / Care Gap Reviewed:: Follow-up appointment Reminder: Reminder note to check Health Maintenance for items below Health Maintenance items due: BP CONTROLLED (<130/80) Never done DTAP,TDAP,TD(2 - Tdap) due on 09/03/2022 ADVANCE DIRECTIVE DISCUSSION due on 11/12/2022 DEPRESSION ASSESSMENT Never done Navigation Signature: Kendra Warner [facility] Navigator January 18, 2023 2:56 PM [facility] CDM Enrollment Provider Action/FYI: H@H Pt dos not log into [employer]. Pt needs PCP follow up when available. Sent to [place] In addition to what I have discussed, I am providing you with a phone number that gives you one call access to nursing, appointments, and other valuable resources. I am also sending this information to your [employer]. Please take the time to write this number down . This number is available 7 days a week from 8am-8pm. Patient referred by: [facility] Caren Contact made with patient: Yes - Patient identified by name and . Discussed care with patient Kev this is Linette Fernandes RN and I am calling from Tu Canela MD office at the [facility]. I am a RN Event Specialist with our [facility] Chronic Disease Management program. Tu Canela MD wanted me to reach out to help you manage your health at home. Our goal is to keep you well at home. We want to help you manage your chronic disease by providing a safety net of resources around you, getting you the care you need in a timely manner, and hopefully keep you out of the ED and hospital. I will send you a few questions once a week through your [employer] account. It will automatically show up for you to complete. There are simple questions that will help us identify if you have any concerns or symptoms and I will call you to help get what you need. We will be able to connect you, review your symptoms, do an on demand visit, or communicate with Tu Canela MD if needed. I am going to sign you up for the program now. Enrollment Questions: Let's get you enrolled in the program. No, reason: I don't like using [employer] Closing: Patient accepts telephonic outreach. LINDA Education Ordered -: No Thank you for your time today. I am excited to work together in managing your health! I will check back within in two weeks to see how things are going. If questions or concerns arise between phone calls, please reach out to your PCP s office. (Place in active status for [facility] and place name in care team and update next patient outreach data to next business day two weeks from today s date) documented in this encounter [facility] 01-18-2023 Note Patient Outreach ([facility] FLORECITA HEALY ([id number]) 1940 F Date Time Provider Department 01/18/23 LINETTE FERNANDESG During your visit today, we recorded the following information about you: Linette Fernandes RN 01/18/2023 2:32 PM Addendum [facility] CDM Enrollment Provider Action/FYI: H@H Pt dos not log into [employer]. Pt needs PCP follow up when available. Sent to [employer] In addition to what I have discussed, I am providing you with a phone number that gives you one call access to nursing, appointments, and other valuable resources. I am also sending this information to your [employer]. Please take the time to write this number down . This number is available 7 days a week from 8am-8pm. Patient referred by: [facility] Caren Contact made with patient: Yes - Patient identified by name and . Discussed care with patient Kev this is Linette Fernandes, RN and I am calling from Tu Canela MD office at the [facility]. I am a RN Event Specialist with our [employer] Chronic Disease Management program. Tu Canela MD wanted me to reach out to help you manage your health at home. Our goal is to keep you well at home. We want to help you manage your chronic disease by providing a safety net of resources around you, getting you the care you need in a timely manner, and hopefully keep you out of the ED and hospital. I will send you a few questions once a week through your [employer] account. It will automatically show up for you to complete. There are simple questions that will help us identify if you have any concerns or symptoms and I will call you to help get what you need. We will be able to connect you, review your symptoms, do an on demand visit, or communicate with Tu Canela MD if needed. I am going to sign you up for the program now. Enrollment Questions: Let's get you enrolled in the program. No, reason: I don't like using [employer] Closing: Patient accepts telephonic outreach. LINDA Education Ordered -: No Thank you for your time today. I am excited to work together in managing your health! I will check back within in two weeks to see how things are going. If questions or concerns arise between phone calls, please reach out to your PCP?s office. (Place in active status for [facility] and place name in care team and update next patient outreach data to next business day two weeks from today?s date) Kendra Warner Population Health Navigator 01/18/2023 3:00 PM Addendum POPULATION HEALTH NAVIGATION OUTREACH Action/ I spoke to patient and scheduled PCP follow up for February. Dr. Canela: Patient asking if you would refill her Baclofen for her, she stated she is no longer going to pain management and is no longer taking her Lyrica or Hydrocodone. She stated she does not want to go back to pain management for a refill, informed her I would ask if this is something you would refill. Patient Identified by Name and : YES, via phone Outreach Outcome/Action Spoke to patient / parent / legal guardian: Patient scheduled Did you use a PCP flex slot to schedule this appointment? No Reason for Outreach [facility] Payer: Payor: [employer] MEDICARE / Plan: [employer] PLUS / Product Type: HMO / Care Gap Reviewed:: Follow-up appointment Reminder: Reminder note to check Health Maintenance for items below Health Maintenance items due: BP CONTROLLED (<130/80) Never done DTAP,TDAP,TD(2 - Tdap) due on 09/03/2022 ADVANCE DIRECTIVE DISCUSSION due on 11/12/2022 DEPRESSION ASSESSMENT Never done Navigation Signature: Kendra Warner Population Health Navigator January 18, 2023 2:56 PM Tu Canela MD 01/18/2023 4:53 PM Signed Let her know rx sent Tu Canela MD 01/18/2023 4:54 PM Signed Addended by: TU CANELA on: 01/18/2023 04:54 PM Modules accepted: Orders Sheron French Ma 01/19/2023 9:13 AM Signed Patient notified Allergies As of Date: 01/18/2023 Noted Allergy Reaction ANIMAL DANDER 08/02/2016 5 - Intolerance DARVOCET A500 (PROPOXYPHENE N-SELENE*06/03/2012 1 - Mental Status Change DUST 08/02/2016 14 - Other: See Comments GRASS POLLEN 08/02/2016 14 - Other: See Comments MOLD 08/02/2016 14 - Other: See Comments SOMA (CARISOPRODOL) 06/03/2012 7 - Swelling 9 - Itching TREES 08/02/2016 14 - Other: See Comments Date Reviewed: 01/16/2023 Reviewed by: Parul Avalos RN - Fully Assessed Reason for Visit: Community Monitoring Outreach [Other] Cmt: Enrollment H@H Order(s):baclofen (LIORESAL) 5 mg tabletTake 1 tablet by mouth daily at bedtime. Once at bed time, dailyDisp: 30 EachRfl: 1 Prescriptions as of 01/19/2023 - baclofen (LIORESAL) 5 mg tablet Take 1 tablet by mouth daily at bedtime. Once at bed time, daily - doxycycline monohydrate (MONODOX) 100 mg capsule Take 1 capsule by mouth twice daily for 5 days. - acetaminophen (TYLENOL) 325 mg tablet (more content not included)... [facility] 01-18-2023 Note HNO ID: [id number] Author: Linette Fernandes RN Service: ? Author Type: Registered Nurse Type: Progress Notes Filed: 01/18/2023 2:32 PM Note Text: [facility] CDM Enrollment Provider Action/FYI: H@H Pt dos not log into [employer]. Pt needs PCP follow up when available. Sent to [employer] In addition to what I have discussed, I am providing you with a phone number that gives you one call access to nursing, appointments, and other valuable resources. I am also sending this information to your [employer]. Please take the time to write this number down . This number is available 7 days a week from 8am-8pm. Patient referred by: [facility] Caren Contact made with patient: Yes - Patient identified by name and . Discussed care with patient Kev this is Linette Fernandes RN and I am calling from Tu Canela MD office at the [facility]. I am a RN Event Specialist with our [employer] Chronic Disease Management program. Tu Canela MD wanted me to reach out to help you manage your health at home. Our goal is to keep you well at home. We want to help you manage your chronic disease by providing a safety net of resources around you, getting you the care you need in a timely manner, and hopefully keep you out of the ED and hospital. I will send you a few questions once a week through your [employer] account. It will automatically show up for you to complete. There are simple questions that will help us identify if you have any concerns or symptoms and I will call you to help get what you need. We will be able to connect you, review your symptoms, do an on demand visit, or communicate with Tu Canela MD if needed. I am going to sign you up for the program now. Enrollment Questions: Let's get you enrolled in the program. No, reason: I don't like using [employer] Closing: Patient accepts telephonic outreach. LINDA Education Ordered -: No Thank you for your time today. I am excited to work together in managing your health! I will check back within in two weeks to see how things are going. If questions or concerns arise between phone calls, please reach out to your PCP?s office. (Place in active status for [facility] and place name in care team and update next patient outreach data to next business day two weeks from today?s date) [facility] 01-16-2023 Note HNO ID: [id number] Author: Rc Rodriguez MD Service: ? Author Type: Physician Type: Progress Notes Filed: 01/16/2023 3:58 PM Note Text: INFECTIOUS DISEASE WOUND CENTER NOTE Patient Name: Florecita Healy Date: 01/16/2023 ASSESSMENT: Cellulitis, RLE COPD Hypertension Hyperlipidemia Breast cancer Chronic pain (pain management) Psoriasis Osteopenia PLAN: Start oral doxycycline for 5 days Wound debridement done as below Monitor for signs of infection. These were discussed in details with her Compression compliance emphasized Vascular evaluation and studies scheduled for February 13, 2023 Follow-up with infectious disease at the wound center in 4 weeks INTERVAL HISTORY: ROS done with pt and negative unless stated. No new complaints. Wounds of the dorsum of the foot have healed and there is no drainage at this time. She has been stable off antibiotics but was unable to use compression today and that has led to redness and some warmth on the anteromedial aspect of the lower leg on the right. She has seen been seen by Dr. Proctor from vascular surgery and is planned for vascular studies for venous reflux and PVRs on February 13. MEDICATIONS: acetaminophen (TYLENOL) 325 mg tablet Take 2 tablets by mouth every 4 hours as needed for pain. bacitracin 500 unit/gram ointment Apply to affected area twice daily. pregabalin (LYRICA) 75 mg capsule Take 75 mg by mouth daily at bedtime. 1/2 a table (75 mg) once a day at night metoprolol succinate ER (TOPROL XL) 25 mg 24 hr tablet Take 1 tablet by mouth once daily. lisinopril (ZESTRIL, PRINIVIL) 40 mg tablet Take 1 tablet by mouth once daily. levothyroxine (SYNTHROID) 25 mcg tablet Take 1 tablet by mouth once daily. Except 2 tabs by mouth every Sunday and Sunday cholecalciferol, vitamin D3, (VITAMIN D3 ORAL) Take 2,000 Units by mouth once daily. alpha tocopheryl acetate (VITAMIN E) 400 unit capsule Take 400 Units by mouth once daily. diphenhydrAMINE-Acetaminophen 25-500 mg tab Take 2 tablets by mouth at bedtime as needed. baclofen (LIORESAL) 5 mg tablet Take 5 mg by mouth daily at bedtime. Once at bed time, daily (Patient not taking: Reported on 01/16/2023) bioflav,lemon/vit Bcomp,C (LIPOFLAVONOID ORAL) Take by mouth. 1 tablet by mouth daily. (Patient not taking: Reported on 01/16/2023) MAGNESIUM ORAL Take 1 tablet by mouth once daily. (Patient not taking: No sig reported) multivit with calcium,iron,min (WOMEN'S MULTIPLE VITAMINS ORAL) Take 1 tablet by mouth once daily. (Patient not taking: Reported on 01/09/2023) BIOTIN ORAL Take 1 tablet by mouth once daily. (Patient not taking: Reported on 01/09/2023) PHYSICAL EXAM: Vital signs: stable, afeb General: alert, oriented, NAD Lungs: bilaterally clear to auscultation Heart: regular rate and rhythm Abdomen: soft, non tender, non distended, BS+ Extremities: no swollen joints Skin: no rash Leg edema right greater than left with evidence of chronic venous insufficiency. Right foot dorsal wounds appear to have healed with no drainage at this time. Small patch of cellulitic change on the anterior medial aspect of the right leg. Lab data: reviewed WBC (k/uL) Date Value 11/13/2022 4.94 11/12/2022 4.30 11/11/2022 3.68 11/01/2021 4.45 04/01/2021 5.25 03/08/2020 5.79 Hemoglobin (g/dL) Date Value 11/13/2022 10.1 11/12/2022 9.7 11/11/2022 10.1 11/01/2021 12.9 04/01/2021 12.4 03/08/2020 12.2 INR (no units) Date Value 11/05/2022 1.0 Sodium (mmol/L) Date Value 11/13/2022 137 11/12/2022 136 11/11/2022 137 11/01/2021 139 04/01/2021 141 03/08/2020 143 Potassium (mmol/L) Date Value 11/13/2022 4.7 11/12/2022 4.2 11/11/2022 3.6 11/01/2021 4.1 04/01/2021 4.0 03/08/2020 3.8 CO2 (mmol/L) Date Value 11/13/2022 28 11/12/2022 25 11/11/2022 25 11/01/2021 24 04/01/2021 25 03/08/2020 22 BUN (mg/dL) Date Value 11/13/2022 12 11/12/2022 11 11/11/2022 10 11/01/2021 16 04/01/2021 16 03/08/2020 17 Creatinine (mg/dL) Date Value 11/13/2022 1.00 11/12/2022 0.83 11/11/2022 0.74 11/01/2021 0.96 04/01/2021 1.00 03/08/2020 0.99 AST (U/L) Date Value 11/05/2022 17 11/01/2021 13 04/01/2021 14 03/08/2020 16 ALT (U/L) Date Value 11/05/2022 11 11/01/2021 9 04/01/2021 8 03/08/2020 9 Bilirubin, Total (mg/dL) Date Value 11/05/2022 1.2 11/01/2021 0.6 04/01/2021 0.6 03/08/2020 0.6 Alkaline Phosphatase (U/L) Date Value 11/05/2022 85 11/01/2021 103 04/01/2021 94 03/08/2020 98 WSR (mm/hr) Date Value 08/02/2016 8 06/04/2015 4 06/23/2013 8 12/26/2012 2 Sed Rate, Westergren (mm/hr) Date Value 11/05/2022 46 Lactate (mmol/L) Date Value 11/05/2022 1.0 11/05/2022 2.3 Sepsis Lactate (mmol/L) Date Value 11/06/2022 1.3 11/05/2022 2.2 Vancomycin (ug/mL) Date Value 11/08/2022 8.2 Microbiology data: reviewed Imaging data: reviewed Rc Rodriguez MD Pager: (more content not included)... [facility] 01-16-2023 History of Presen t illness Narrative INFECTIOUS DISEASE WOUND CENTER NOTE Patient Name: Florecita Healy Date: 01/16/2023 ASSESSMENT: Cellulitis, RLE COPD Hypertension Hyperlipidemia Breast cancer Chronic pain (pain management) Psoriasis Osteopenia PLAN: Start oral doxycycline for 5 days Wound debridement done as below Monitor for signs of infection. These were discussed in details with her Compression compliance emphasized Vascular evaluation and studies scheduled for February 13, 2023 Follow-up with infectious disease at the wound center in 4 weeks INTERVAL HISTORY: ROS done with pt and negative unless stated. No new complaints. Wounds of the dorsum of the foot have healed and there is no drainage at this time. She has been stable off antibiotics but was unable to use compression today and that has led to redness and some warmth on the anteromedial aspect of the lower leg on the right. She has seen been seen by Dr. Proctor from vascular surgery and is planned for vascular studies for venous reflux and PVRs on February 13. MEDICATIONS: acetaminophen (TYLENOL) 325 mg tablet Take 2 tablets by mouth every 4 hours as needed for pain. bacitracin 500 unit/gram ointment Apply to affected area twice daily. pregabalin (LYRICA) 75 mg capsule Take 75 mg by mouth daily at bedtime. 1/2 a table (75 mg) once a day at night metoprolol succinate ER (TOPROL XL) 25 mg 24 hr tablet Take 1 tablet by mouth once daily. lisinopril (ZESTRIL, PRINIVIL) 40 mg tablet Take 1 tablet by mouth once daily. levothyroxine (SYNTHROID) 25 mcg tablet Take 1 tablet by mouth once daily. Except 2 tabs by mouth every Sunday and Sunday cholecalciferol, vitamin D3, (VITAMIN D3 ORAL) Take 2,000 Units by mouth once daily. alpha tocopheryl acetate (VITAMIN E) 400 unit capsule Take 400 Units by mouth once daily. diphenhydrAMINE-Acetaminophen 25-500 mg tab Take 2 tablets by mouth at bedtime as needed. baclofen (LIORESAL) 5 mg tablet Take 5 mg by mouth daily at bedtime. Once at bed time, daily (Patient not taking: Reported on 01/16/2023) bioflav,lemon/vit Bcomp,C (LIPOFLAVONOID ORAL) Take by mouth. 1 tablet by mouth daily. (Patient not taking: Reported on 01/16/2023) MAGNESIUM ORAL Take 1 tablet by mouth once daily. (Patient not taking: No sig reported) multivit with calcium,iron,min (WOMEN'S MULTIPLE VITAMINS ORAL) Take 1 tablet by mouth once daily. (Patient not taking: Reported on 01/09/2023) BIOTIN ORAL Take 1 tablet by mouth once daily. (Patient not taking: Reported on 01/09/2023) PHYSICAL EXAM: Vital signs: stable, afeb General: alert, oriented, NAD Lungs: bilaterally clear to auscultation Heart: regular rate and rhythm Abdomen: soft, non tender, non distended, BS+ Extremities: no swollen joints Skin: no rash Leg edema right greater than left with evidence of chronic venous insufficiency. Right foot dorsal wounds appear to have healed with no drainage at this time. Small patch of cellulitic change on the anterior medial aspect of the right leg. Lab data: reviewed WBC (k/uL) Date Value 11/13/2022 4.94 11/12/2022 4.30 11/11/2022 3.68 11/01/2021 4.45 04/01/2021 5.25 03/08/2020 5.79 Hemoglobin (g/dL) Date Value 11/13/2022 10.1 11/12/2022 9.7 11/11/2022 10.1 11/01/2021 12.9 04/01/2021 12.4 03/08/2020 12.2 INR (no units) Date Value 11/05/2022 1.0 Sodium (mmol/L) Date Value 11/13/2022 137 11/12/2022 136 11/11/2022 137 11/01/2021 139 04/01/2021 141 03/08/2020 143 Potassium (mmol/L) Date Value 11/13/2022 4.7 11/12/2022 4.2 11/11/2022 3.6 11/01/2021 4.1 04/01/2021 4.0 03/08/2020 3.8 CO2 (mmol/L) Date Value 11/13/2022 28 11/12/2022 25 11/11/2022 25 11/01/2021 24 04/01/2021 25 03/08/2020 22 BUN (mg/dL) Date Value 11/13/2022 12 11/12/2022 11 11/11/2022 10 11/01/2021 16 04/01/2021 16 03/08/2020 17 Creatinine (mg/dL) Date Value 11/13/2022 1.00 11/12/2022 0.83 11/11/2022 0.74 11/01/2021 0.96 04/01/2021 1.00 03/08/2020 0.99 AST (U/L) Date Value 11/05/2022 17 11/01/2021 13 04/01/2021 14 03/08/2020 16 ALT (U/L) Date Value 11/05/2022 11 11/01/2021 9 04/01/2021 8 03/08/2020 9 Bilirubin, Total (mg/dL) Date Value 11/05/2022 1.2 11/01/2021 0.6 04/01/2021 0.6 03/08/2020 0.6 Alkaline Phosphatase (U/L) Date Value 11/05/2022 85 11/01/2021 103 04/01/2021 94 03/08/2020 98 WSR (mm/hr) Date Value 08/02/2016 8 06/04/2015 4 06/23/2013 8 12/26/2012 2 Sed Rate, Westergren (mm/hr) Date Value 11/05/2022 46 Lactate (mmol/L) Date Value 11/05/2022 1.0 11/05/2022 2.3 Sepsis Lactate (mmol/L) Date Value 11/06/2022 1.3 11/05/2022 2.2 Vancomycin (ug/mL) Date Value 11/08/2022 8.2 Microbiology data: reviewed Imaging data: reviewed Rc Rodriguez MD Pager: documented in this encounter [facility] 01-16-2023 Instructions Parul Avalos RN - 01/16/2023 1:17 PM EST WOUND CARE INSTRUCTIONS- Florecita Barfieldjovanni Wound location: Right top of foot -You can shower but please wash the wound area last. Dry it with a clean towel or clean paper towel. -Gather supplies -Place down a clean work surface such as new paper towel or newly cleaned towel -Clean all metal instruments with rubbing alcohol before and after each use. -Plastic garbage bag for old dressing - Wash your hands with soap and water before and after wound care. - Wash wound with Liquid Gold Antibacterial Dial soap and water. Pat dry with clean, separate towel or paper towel. -Soak a gauze with Vashe wound wash, place it on the wound and let it sit for 5-10 minutes. Wipe off the excess and pat dry. - Cover with a single layer of Adaptic (mesh layer), cut to slightly overlap the wound edges. - Secure dressing with 4x4 gauze, ABD pad, conform guaze wrap, & tape - Change your dressing DAILY. FOR COMPRESSION WRAPS: SELENE bandage. 4 SELENE to the foot from toes to the ankle, 6 SELENE to the leg from the ankle to the knee. Remove compression wraps before showering. Remove compression wraps if they become uncomfortable or cause change in color or sensation to the extremity. Rewrap as instructed. Regarding lymphedema/edema: Elevation of extremity above the heart for 30 minutes three times daily and as needed Exercise such as writing the ABC's with your toes in the air, walking and/or calf pumps Wearing compression as ordered by provider Diet controlling of sodium as instructed by provider Use of medication to help control edema. You may remove the SELENE at night for a rest but please put the SELENE bandage on in the morning before your foot swells. To give your wound the best chance to heal: - Eat three balanced meals daily focusing on the protein - Control swelling by elevating the extremity above your heart - exercise the extremity - Control your blood sugar. Keep blood sugar less than 200 - Complete your wound care instructions - Vitamin C 500 mg twice daily - Multiple Vitamin Daily - Drink a protein shake daily Report any of the following changes to the Wound Center at [phone] or go to the Emergency Department: Fever or chills Increased drainage Green or yellow drainage Foul odor Increased pain Hardness around the wound Redness, warmth or swelling of the surrounding tissue Color change to the wound Evenings / Weekends / Holidays If you call the wound center at the phone number provided above, please leave a detailed message that includes your full name, birthday, and phone number. We are seeing patients during the day, so we will return your call within a 24-48 hr period in the order your call was received. There is not an on-call provider assigned to the wound center. If you have an emergency that needs to be addressed, please go the Urgent Care or the Emergency Room. Thank you for your cooperation and understanding. Plan: - Return to the Wound Center to see Dr. Rodriguez in 4 weeks. - Please follow up with your PCP to have your Blood Pressure rechecked. - Continue aggressive nutritional support to assist wound healing. - Dr. Rodriguez to order an antibiotic Doxycycline. Please take as directed on the bottle. - Wound care supplies were ordered through [employer]. You may call for refills on supplies every 30 days as needed. Call the phone number provided: . Rc Rodriguez MD/JACKSON/SUYAPA documented in this encounter [facility] 01-16-2023 Nurse Note Nursing Documentation Pertinent Medical History: HTN, CKD, Spinal stenosis, left Breast CA, COPD, November 05, 2022 pt ended up in the ED and admitted in the hospital for sepsis and cellulitis of right leg. Pt states she does not remember what happened or what the diagnosis was from the hospital. Wound Etiology according to patient: First time patient noticed the wound on the right leg was after her hospitalization November 05, 2022. Patient arrived via: ambulatory from home Home Care Company/Nursing Facility: N/A Consent captured for debridement per Rc Dior until June 2023. Special Instructions: N/A Anticoagulant Therapy: N/A Living Situation: Lives by herself Who lives with patient: No one Who will be performing wound care: self Available Support System: pt's son, pt's 3 sisters In-Home Assist Devices: home is one floor, bathroom assistance devices. Occupation: Retired Provider seeing patient: Rc Rodriguez MD WOUND ASSESSMENT: Refer to Provider's Wound Assessment Note VASCULAR ASSESSMENT BY PROVIDER: N/A CHF History: Not in pt's chart, pt denies EDEMA: Right foot: 2+ Right calf: 1+ Left foot: not measured for this visit Left Calf: not measured for this visit MEASUREMENTS: in CM Right Calf: 38.7 Right Ankle: 26.3 Left Calf: not measured for this visit Left Ankle: not measured for this visit Length: 45.0 WOUND PHOTOGRAPHY: Yes x 1 DEBRIDEMENT PROCEDURE BY PROVIDER: Anesthetic Used: 2% Lidocaine gel applied per Laverne Arndt RN Wound # 1 Other procedure: N/A Specimen collected: N/A WOUND TREATMENT PER MD ORDER: Wounds cleansed by mechanical debridement to allow provider to visualize wound base WOUND # 1 - LOCATION: Right Dorsal foot cluster (first visit 12/19/22) L: 3.6 cm x W: 4.1 cm x D: Scabbed Debridement by Provider: N/A Cleansed with: Vashe Applied to malcolm-wound skin: Vaseline Applied to wound bed: Adaptic Covered and secured with: 4x4 gauze, ABD, conform, & tape COMPRESSION: SPECIAL NEEDS: Coordination of care - [facility] faxed for supplies Emotional support N/A OR set-up N/A Metal Drawer N/A Incontinence needs N/A DISCHARGED in stable condition to: Home ambulatory Global surgical period dates if applicable: N/A PLAN/ORDERS: - Return to the Wound Center to see Dr. Rodriguez in 4 weeks. - Please follow up with your PCP to have your Blood Pressure rechecked. - Continue aggressive nutritional support to assist wound healing. - Dr. Rodriguez to order an antibiotic Doxycycline. Please take as directed on the bottle. - Wound care supplies were ordered through [employer]. You may call for refills on supplies every 30 days as needed. Call the phone number provided: . EDUCATION: The patient/family was instructed how to cleanse the wound(s). Visual demonstration on how to apply the dressing with teach back method. Signs & symptoms of infection were reviewed: Increased redness, swelling, pain, green/yellow drainage, fever and/or chills would all need to be evaluated by a Physician. Patient received typed home-going wound care instructions and has expressed intent to comply. OTHER EDUCATION: Provider discussed wound etiology, wound progression, debridement, dressing care, & follow up. Education performed regarding lymphedema/edema: Elevation of extremity above the heart for 30 minutes three times daily and as needed Exercise such as writing the ABC's with your toes in the air, walking and/or calf pumps Wearing compression as ordered by provider Diet controlling of sodium as instructed by provider Use of medication to help control edema. Parul Avalos RN/JACKSON UNIVERSAL PROTOCOL / SAFETY CHECKLIST - N/A Current HBOT Status: Active or Complete - see screening below WOUND CENTER HYPERBARIC OXYGEN THERAPY SCREENING 1. Is the patient diabetic? (If No, skip to question 5) No 5. Has the patient been diagnosed with osteomyelitis? No 6. Has the patient had a previous skin graft or flap at the wound? No 7. Has the patient had or been offered vascular intervention/evaluation? Yes Pt started with Dr Pope, scheduled apt with Dr Proctor 01/09/23. 8. Does the patient have a wound at an amputation site? No 9. Has the patient had radiation therapy at the site of the problem? No If Yes to ANY of questions 5-9, consult the Hyperbaric Center Parul Avalos RN/JACKSON documented in this encounter [facility] 01-09-2023 Note HNO ID: [id number] Author: Jannie Proctor, DO Service: ? Author Type: Physician Type: Progress Notes Filed: 01/29/2023 9:15 AM Note Text: [facility] DEPARTMENT OF VASCULAR SURGERY OUTPATIENT VISIT DATE January 09, 2023 OUTPATIENT VISIT TYPE CONSULTATION SERVICE DATE: 01/09/2023 SERVICE TIME: 1:13 PM PRIMARY CARE PHYSICIAN: Tu Canela MD REFERRING PROVIDER: Jannie Proctor [address] [facility] [id number] Consult requested for an opinion regarding the evaluation and treatment of the above. My final impression and recommendations will be communicated back to the requesting physician by way of the shared medical record or letter via [place] mail. CHIEF COMPLAINT: Patient presents with: New Patient History of Present Illness: Patient is a 82 year old White female presenting for consultation, evaluation and possible treatment of varicose veins, leg edema, leg pain, and venous insufficieny bilateral edema and right foot lesions which started in October . She has seen Dr. Rodriguez at [facility] and Dr. Tim [facility] for the skin lesions. She states she has had biopsy on the rash. No prior similar episodes. Her right foot continues to have discoloration which is worse with dependency. Predisposing factors included not significant. No specific history of injury or prior problems. Relieving factors include support hose and elevation of legs with mild improvement in symptoms. Patient denies DVT, phlebitis, and treatment with blood thinners. PAIN ASSESSMENT: PAIN EVALUATION No data found in the last 1 encounters. Obstetric History T0 L3 SAB0 IAB0 Ectopic0 Multiple0 Live Births0 Name of Baby 1: Not recorded Date: Not recorded GA: Not recorded Delivery: Not recorded Apgar1: Not recorded Apgar5: Not recorded Living: Not recorded Name of Baby 2: Not recorded Date: Not recorded GA: Not recorded Delivery: Not recorded Apgar1: Not recorded Apgar5: Not recorded Living: Not recorded Name of Baby 3: Not recorded Date: Not recorded GA: Not recorded Delivery: Not recorded Apgar1: Not recorded Apgar5: Not recorded Living: Not recorded Name of Baby 4: Not recorded Date: Not recorded GA: Not recorded Delivery: Not recorded Apgar1: Not recorded Apgar5: Not recorded Living: Not recorded Duration of Symptoms: Greater Than 6 Weeks PREVIOUS TESTS: Venous Duplex Exam, date 01/03/23 CARDIOVASCULAR RISK FACTORS: Actively Smoking, Hypertension, and Hyperlipidemia PAST MEDICAL HISTORY Diagnosis Date Abnormal ultrasound of breast 12/02/15 Left Breast cancer of upper-outer quadrant of left female breast (HCC) Chronic obstructive pulmonary disease (COPD) (HCC) Chronic pain 06/03/2012 sees pain management. Diarrhea 11/06/2022 Hyperlipidemia 06/03/2012 Hypertension 06/03/2012 Nausea AND vomiting 11/06/2022 Osteopenia Psoriasis Pulmonary nodule Dr. Dawn Sepsis ([facility]) 11/05/2022 Snoring PAST SURGICAL HISTORY Procedure Laterality Date AMPUTATE TOE; IP JOINT BREAST BIOPSY Left 12/02/2015 BX/EXC LYMPH NODE OPEN DEEP AXILLARY NODE Left 05/11/2015 DELIVERY ONLY , low transverse CHOLECYSTECTOMY COLONOSCOPY 05/13/2001 normal COLONOSCOPY 01/02/2007 diverticulosis COLONOSCOPY FLX DX W/COLLJ SPEC WHEN PFRMD 09/04/2013 Colonoscopy COLONOSCOPY FLX DX W/COLLJ SPEC WHEN PFRMD 12/07/2016 Colonoscopy COLONOSCOPY SCREENING 05/30/2022 Dr Borrero 5 year F/U HYSTERECTOMY HX stil has one ovary INCISE FINGER TENDON SHEATH Right INCISE FINGER TENDON SHEATH Right MASTECTOMY, PARTIAL Left 05/11/2015 NEUROPLASTY AND/TRANSPOS MEDIAN NRV CARPAL TUNNE Right 08/01/2019 Right carpal tunnel release ORTHOPEDIC SURGERY HX Left 10/11/2017 3rd and 4th trigger finger release PERQ DEVICE PLACEMENT BREAST LOC 1ST LES W/GDNCE Left 05/11/2015 THYROIDECTOMY TOTAL/COMPLETE right sided thyroidectomy due to nodules. were benign XCAPSL CTRC RMVL INSJ IO LENS PROSTH W/O ECP 01/2015 Cataract Extraction with PC IOL SOCIAL HISTORY: Social History Tobacco Use Smoking status: Former Packs/day: 1.00 Years: 20.00 Pack years: 20.00 Types: Cigarettes Smokeless tobacco: Never Tobacco comments: Pt has cut back to 1/4 pack daily. Substance Use Topics Alcohol use: No Drug use: No FAMILY HISTORY Problem Relation Age of Onset Heart Father other (Black Lung) Father Arthritis Mother RA other (gallbladder) Mother Diabetes Sister Cancer Sister kidney tumor Cancer Brother lung cancer MEDICATIONS: acetaminophen (TYLENOL) 325 mg tablet Take 2 tablets by mouth every 4 hours as needed for pain. bacitracin 500 unit/gram ointment Apply to affected area twice daily. pregabalin (LYRICA) 75 mg capsule Take 75 mg by mouth daily at bedtime. 1/2 a table (75 mg) once a day at night metoprolol succinate ER (TOPROL XL) 25 mg 24 hr tablet Take 1 tablet by mouth once daily. lisinopril (more content not included)... [facility] 01-09-2023 History of Presen t illness Narrative Images from the original note were not included. Heart, Vascular [facility] DEPARTMENT OF VASCULAR SURGERY OUTPATIENT VISIT DATE January 09, 2023 OUTPATIENT VISIT TYPE CONSULTATION SERVICE DATE: 01/09/2023 SERVICE TIME: 1:13 PM PRIMARY CARE PHYSICIAN: Tu Canela MD REFERRING PROVIDER: Jannie Proctor [id number] [facility] [id number] Consult requested for an opinion regarding the evaluation and treatment of the above. My final impression and recommendations will be communicated back to the requesting physician by way of the shared medical record or letter via US mail. CHIEF COMPLAINT: Patient presents with: New Patient History of Present Illness: Patient is a 82 year old White female presenting for consultation, evaluation and possible treatment of varicose veins, leg edema, leg pain, and venous insufficieny bilateral edema and right foot lesions which started in October . She has seen Dr. Rodriguez at wound center and [facility]. [facility] for the skin lesions. She states she has had biopsy on the rash. No prior similar episodes. Her right foot continues to have discoloration which is worse with dependency. Predisposing factors included not significant. No specific history of injury or prior problems. Relieving factors include support hose and elevation of legs with mild improvement in symptoms. Patient denies DVT, phlebitis, and treatment with blood thinners. PAIN ASSESSMENT: PAIN EVALUATION No data found in the last 1 encounters. Obstetric History T0 L3 SAB0 IAB0 Ectopic0 Multiple0 Live Births0 Name of Baby 1: Not recorded Date: Not recorded GA: Not recorded Delivery: Not recorded Apgar1: Not recorded Apgar5: Not recorded Living: Not recorded Name of Baby 2: Not recorded Date: Not recorded GA: Not recorded Delivery: Not recorded Apgar1: Not recorded Apgar5: Not recorded Living: Not recorded Name of Baby 3: Not recorded Date: Not recorded GA: Not recorded Delivery: Not recorded Apgar1: Not recorded Apgar5: Not recorded Living: Not recorded Name of Baby 4: Not recorded Date: Not recorded GA: Not recorded Delivery: Not recorded Apgar1: Not recorded Apgar5: Not recorded Living: Not recorded Duration of Symptoms: Greater Than 6 Weeks PREVIOUS TESTS: Venous Duplex Exam, date 01/03/23 CARDIOVASCULAR RISK FACTORS: Actively Smoking, Hypertension, and Hyperlipidemia PAST MEDICAL HISTORY Diagnosis Date Abnormal ultrasound of breast 12/02/15 Left Breast cancer of upper-outer quadrant of left female breast (HCC) Chronic obstructive pulmonary disease (COPD) (HCC) Chronic pain 06/03/2012 sees pain management. Diarrhea 11/06/2022 Hyperlipidemia 06/03/2012 Hypertension 06/03/2012 Nausea & vomiting 11/06/2022 Osteopenia Psoriasis Pulmonary nodule Dr. Dawn Sepsis ([facility]) 11/05/2022 Snoring PAST SURGICAL HISTORY Procedure Laterality Date AMPUTATE TOE; IP JOINT BREAST BIOPSY Left 12/02/2015 BX/EXC LYMPH NODE OPEN DEEP AXILLARY NODE Left 05/11/2015 DELIVERY ONLY , low transverse CHOLECYSTECTOMY COLONOSCOPY 05/13/2001 normal COLONOSCOPY 01/02/2007 diverticulosis COLONOSCOPY FLX DX W/COLLJ SPEC WHEN PFRMD 09/04/2013 Colonoscopy COLONOSCOPY FLX DX W/COLLJ SPEC WHEN PFRMD 12/07/2016 Colonoscopy COLONOSCOPY SCREENING 05/30/2022 Dr Borrero 5 year F/U HYSTERECTOMY HX stil has one ovary INCISE FINGER TENDON SHEATH Right INCISE FINGER TENDON SHEATH Right MASTECTOMY, PARTIAL Left 05/11/2015 NEUROPLASTY &/TRANSPOS MEDIAN NRV CARPAL TUNNE Right 08/01/2019 Right carpal tunnel release ORTHOPEDIC SURGERY HX Left 10/11/2017 3rd and 4th trigger finger release PERQ DEVICE PLACEMENT BREAST LOC 1ST LES W/GDNCE Left 05/11/2015 THYROIDECTOMY TOTAL/COMPLETE right sided thyroidectomy due to nodules. were benign XCAPSL CTRC RMVL INSJ IO LENS PROSTH W/O ECP 01/2015 Cataract Extraction with PC IOL SOCIAL HISTORY: Social History Tobacco Use Smoking status: Former Packs/day: 1.00 Years: 20.00 Pack years: 20.00 Types: Cigarettes Smokeless tobacco: Never Tobacco comments: Pt has cut back to 1/4 pack daily. Substance Use Topics Alcohol use: No Drug use: No FAMILY HISTORY Problem Relation Age of Onset Heart Father other (Black Lung) Father Arthritis Mother RA other (gallbladder) Mother Diabetes Sister Cancer Sister kidney tumor Cancer Brother lung cancer MEDICATIONS: acetaminophen (TYLENOL) 325 mg tablet Take 2 tablets by mouth every 4 hours as needed for pain. bacitracin 500 unit/gram ointment Apply to affected area twice daily. pregabalin (LYRICA) 75 mg capsule Take 75 mg by mouth daily at bedtime. 1/2 a table (75 mg) once a day at night metoprolol succinate ER (TOPROL XL) 25 mg 24 hr tablet Take 1 tablet by mouth once daily. lisinopril (ZESTRIL, PRINIVIL) 40 mg tablet Take 1 tablet by mouth once daily. levothyroxine (SYNTHROID) 25 mcg tablet Take 1 tablet by mouth once daily. Except 2 tabs by mouth every Sunday and Sunday bioflav,lemon/vit Bcomp,C (LIPOFLAVONOID ORAL) Take by mouth. 1 tablet by mouth daily. cholecalciferol, vitamin D3, (VITAMIN D3 ORAL) Take 2,000 Units by mouth once daily. alpha tocopheryl acetate (VITAMIN E) 400 unit capsule Take 400 Units by mouth once daily. diphenhydrAMINE-Acetaminophen 25-500 mg tab Take 2 tablets by mouth at bedtime as needed. baclofen (LIORESAL) 5 mg tablet Take 5 mg by mouth daily at bedtime. Once at bed time, daily MAGNESIUM ORAL Take 1 tablet by mouth once daily. (Patient not taking: No sig reported) multivit with calcium,iron,min (WOMEN'S MULTIPLE VITAMINS ORAL) Take 1 tablet by mouth once daily. (Patient not taking: Reported on 01/09/2023) BIOTIN ORAL Take 1 tablet by mouth once daily. (Patient not taking: Reported on 01/09/2023) ALLERGIES: ALLERGIES Allergen Reactions Animal Dander Intolerance Darvocet A500 [Prop* Mental Status Change Dust Other: See Comments Grass Pollen Other: See Comments Mold Other: See Comments Soma [Carisoprodol] Swelling, Itching Trees Other: See Comments REVIEW of SYSTEMS: Constitutional: No weight loss, malaise or fevers. HEENT: Negative for frequent or significant headaches, No changes in hearing or vision, no nose bleeds or other nasal problems Respiratory: Negative for cough and wheezing and Positive for shortness of breath on exertion Cardiovascular: Negative for chest pain and palpitations and Positive for leg swelling Gatrointestinal: Negative for abdominal discomfort, blood in stools or black stools or change in bowel habits Genitourinary: Negative for dysuria and Positive for incontinence thinks bladder dropped Musculoskeletal: Negative for joint pain or swelling, back pain or muscle pain Endocrine: Negative for cold or heat intolerance, polyuria, polydipsia and goiter Hematology/Lymphatic: Negative for prolonged bleeding, bruising easily or swollen nodes Neurologic: No history or headaches, syncope, paralysis, seizures or tremors Integumentary: Negative for lesions, rash, and itching. PHYSICAL EXAM: VITALS: There were no vitals taken for this visit. General: Alert, oriented, cooperative, healthy appearance Integumentary: Normal color, no rash, no lesions. HEENT: EOM, pupils equal, round and reactive. Cardiovascular: Pulse regular. Lungs: No chest deformities or chest wall tenderness. Abdomen: Not examined Extremities: Varicose veins Neurological: AAOx3. Normal cognition and motor skills. Vascular: Dorsalis Pedal Right: Weak - Left: Weak Diagnostic tests reviewed for today's visit: Most recent labs Most recent imaging IMPRESSION: Ms. Healy is a 82 year old female with symptomatic varicose veins, venous insufficiency, diminished pulse . PLAN and RECOMMENDATIONS: Discussed venous pathology with patient Recommend continued use of compression stockings, elevation and exercise Will get venous reflux testing and follow up to discuss results Will get PVRs to assess for arterial disease Follow up after testing SIGNATURE: Jannie Proctor DO PATIENT NAME: Florecita Healy DATE: January 09, 2023 TIME: 1:13 PM documented in this encounter [facility] 12-19-2022 Note HNO ID: [id number] Author: Rc Rodriguez MD Service: ? Author Type: Physician Type: Progress Notes Filed: 12/19/2022 5:53 PM Note Text: INFECTIOUS DISEASE WOUND CENTER NOTE Patient Name: Florecita Healy Date: 12/19/2022 ASSESSMENT: Cellulitis, RLE COPD Hypertension Hyperlipidemia Breast cancer Chronic pain (pain management) Psoriasis Osteopenia PLAN: Monitor off antibiotics Wound debridement done as below Monitor for signs of infection. These were discussed in details with her Vascular surgery consultation was discussed with Dr. Proctor in vascular surgery for venous insufficiency and surgical options and evaluation for surgery at [place] which is the patient's choice Discussed with patient's granddaughter regarding further steps of care. The patient would like to follow-up with me because she is very anxious that she may lose her foot Follow-up with infectious disease at the wound center in 4 weeks A time out was performed immediately prior to procedure start with the wound care team, correctly identifying the patient name, date of , procedure, anatomy, patient position, safety precautions, and procedure-specific equipment needs. The procedure was explained to the patient including the risks, benefits and alternatives. The risks, including but not limited to infection and bleeding, were reviewed by the performing provider and the patient agreed to undergo the procedure. After providing local analgesia with Lidocaine 2% gel, a full-thickness excisional debridement of the left foot wound was performed and carried through the skin, subcutaneous tissue, with a loop to remove the non-viable or devitalized tissue. The debridement extended into the viable wound margin/s to promote a healthy, active wound edge to support healing. The patient tolerated the procedure well without complications. Hemostasis was achieved with direct pressure. The wound/s was/were then copiously irrigated with sterile normal saline and dressings were applied. Total debridement: See wound RN notes INTERVAL HISTORY: ROS done with pt and negative unless stated. No fevers or chills. Pain is controlled. Foot appears to be better. She is following up with Dr. Tim as well. She denies any worsening in her condition. She has completed antibiotics without any problems. Remained stable off antibiotics for the last several days. MEDICATIONS: acetaminophen (TYLENOL) 325 mg tablet Take 2 tablets by mouth every 4 hours as needed for pain. baclofen (LIORESAL) 5 mg tablet Take 5 mg by mouth daily at bedtime. Once at bed time, daily metoprolol succinate ER (TOPROL XL) 25 mg 24 hr tablet Take 1 tablet by mouth once daily. lisinopril (ZESTRIL, PRINIVIL) 40 mg tablet Take 1 tablet by mouth once daily. levothyroxine (SYNTHROID) 25 mcg tablet Take 1 tablet by mouth once daily. Except 2 tabs by mouth every Sunday and Sunday BIOTIN ORAL Take 1 tablet by mouth once daily. cholecalciferol, vitamin D3, (VITAMIN D3 ORAL) Take 2,000 Units by mouth once daily. alpha tocopheryl acetate (VITAMIN E) 400 unit capsule Take 400 Units by mouth once daily. diphenhydrAMINE-Acetaminophen 25-500 mg tab Take 2 tablets by mouth at bedtime as needed. bacitracin 500 unit/gram ointment Apply to affected area twice daily. pregabalin (LYRICA) 75 mg capsule Take 75 mg by mouth daily at bedtime. 1/2 a table (75 mg) once a day at night bioflav,lemon/vit Bcomp,C (LIPOFLAVONOID ORAL) Take by mouth. 1 tablet by mouth daily. MAGNESIUM ORAL Take 1 tablet by mouth once daily. (Patient not taking: Reported on 12/19/2022) multivit with calcium,iron,min (WOMEN'S MULTIPLE VITAMINS ORAL) Take 1 tablet by mouth once daily. PHYSICAL EXAM: Vital signs: stable, afeb General: alert, oriented, NAD Lungs: bilaterally clear to auscultation Heart: regular rate and rhythm Abdomen: soft, non tender, non distended, BS+ Extremities: no swollen joints Skin: no rash Right dorsum of the foot pinhead sized wounds with 1 wound showing slough at the base - this was debrided. Violaceous and dusky discoloration of the skin of the dorsum of the foot Evidence of chronic venous insufficiency present. No purulent drainage or surrounding cellulitis at this time Lab data: reviewed WBC (k/uL) Date Value 11/13/2022 4.94 11/12/2022 4.30 11/11/2022 3.68 11/01/2021 4.45 04/01/2021 5.25 03/08/2020 5.79 Hemoglobin (g/dL) Date Value 11/13/2022 10.1 11/12/2022 9.7 11/11/2022 10.1 11/01/2021 12.9 04/01/2021 12.4 03/08/2020 12.2 INR (no units) Date Value 11/05/2022 1.0 Sodium (mmol/L) Date Value 11/13/2022 137 11/12/2022 136 11/11/2022 137 11/01/2021 139 04/01/2021 141 03/08/2020 143 Potassium (mmol/L) Date Value 11/13/2022 4.7 11/12/2022 4.2 11/11/2022 3.6 11/01/2021 4.1 04/01/2021 4.0 03/08/2020 3.8 CO2 (mmol/L) Date Value 11/13/2022 28 11/12/2022 25 11/11/2022 2 (more content not included)... [facility] 12-19-2022 Instructions Britt Ordoñez RN - 12/19/2022 3:00 PM EST WOUND CARE INSTRUCTIONS- Florecita Healy Wound location: right top of foot -You can shower but please wash the wound area last. Dry it with a clean towel or clean paper towel. -Gather supplies -Place down a clean work surface such as new paper towel or newly cleaned towel -Clean all metal instruments with rubbing alcohol before and after each use. -Plastic garbage bag for old dressing - Wash your hands with soap and water before and after wound care. - Wash wound with Dial soap and water. Pat dry. -Soak a gauze with Vashe wound wash, place it on the wound and let it sit for 5-10 minutes. Wipe off the excess and pat dry. - Apply a cut small piece of Mesalt ribbon (white packing strip) to the wound base. - Cover with Adaptic (clear mesh layer). Cut to cover the wound. - Secure dressing with 4x4, ABD gauze, conform guaze wrap and tape - Change your dressing daily. FOR COMPRESSION WRAPS: SELENE bandage. 4 SELENE to the foot from toes to the ankle, 6 SELENE to the leg from the ankle to the knee. Remove compression wraps before showering. Remove compression wraps if they become uncomfortable or cause change in color or sensation to the extremity. Rewrap as instructed. Regarding lymphedema/edema: Elevation of extremity above the heart for 30 minutes three times daily and as needed Exercise such as writing the ABC's with your toes in the air, walking and/or calf pumps Wearing compression as ordered by provider Diet controlling of sodium as instructed by provider Use of medication to help control edema. You may remove the SELENE at night for a rest but please put the SELENE bandage on in the morning before your foot swells. To give your wound the best chance to heal: - Eat three balanced meals daily focusing on the protein - Control swelling by elevating the extremity above your heart - exercise the extremity - Control your blood sugar. Keep blood sugar less than 200 - Complete your wound care instructions - Vitamin C 500 mg twice daily - Multiple Vitamin Daily - Drink a protein shake daily Report any of the following changes to the Wound Center at [phone] or go to the Emergency Department: Fever or chills Increased drainage Green or yellow drainage Foul odor Increased pain Hardness around the wound Redness, warmth or swelling of the surrounding tissue Color change to the wound When contacting the wound center at the ([phone]): Leave a message that includes your full name, birthday, phone number who your provider is and the reason for your call. During clinic hours we are with patients. A nurse will return your call within 24-48 hours in the order it was received. The wound center is closed weekends and on major holidays. If you call at that time we will return your call in the order that the calls were received at the soonest opportunity. If you have any signs of infection or need immediate attention then please go to the emergency department to be evaluated Thank you for your understanding and cooperation. Plan: Return to the Wound Center to see Dr Rodriguez in 4 weeks at the [facility]. No need for antibiotics at this time. Follow up with Dr Proctor, vascular doctor, as scheduled 01/09/23 Please follow up with your PCP to have your Blood Pressure rechecked Continue aggressive nutritional support to assist wound healing Wound care supplies were ordered through [facility]. They will attempt to call you once. If you miss the call, or do not hear from them within 1-2 days, please call the phone number provided: . [facility] [phone] Rc Rodriguez MD/sp/suyapa documented in this encounter [facility] 12-19-2022 History of Presen t illness Narrative INFECTIOUS DISEASE WOUND CENTER NOTE Patient Name: Florecita Healy Date: 12/19/2022 ASSESSMENT: Cellulitis, RLE COPD Hypertension Hyperlipidemia Breast cancer Chronic pain (pain management) Psoriasis Osteopenia PLAN: Monitor off antibiotics Wound debridement done as below Monitor for signs of infection. These were discussed in details with her Vascular surgery consultation was discussed with Dr. Proctor in vascular surgery for venous insufficiency and surgical options and evaluation for surgery at [place] which is the patient's choice Discussed with patient's granddaughter regarding further steps of care. The patient would like to follow-up with me because she is very anxious that she may lose her foot Follow-up with infectious disease at the wound center in 4 weeks A time out was performed immediately prior to procedure start with the wound care team, correctly identifying the patient name, date of , procedure, anatomy, patient position, safety precautions, and procedure-specific equipment needs. The procedure was explained to the patient including the risks, benefits and alternatives. The risks, including but not limited to infection and bleeding, were reviewed by the performing provider and the patient agreed to undergo the procedure. After providing local analgesia with Lidocaine 2% gel, a full-thickness excisional debridement of the left foot wound was performed and carried through the skin, subcutaneous tissue, with a loop to remove the non-viable or devitalized tissue. The debridement extended into the viable wound margin/s to promote a healthy, active wound edge to support healing. The patient tolerated the procedure well without complications. Hemostasis was achieved with direct pressure. The wound/s was/were then copiously irrigated with sterile normal saline and dressings were applied. Total debridement: See wound RN notes INTERVAL HISTORY: ROS done with pt and negative unless stated. No fevers or chills. Pain is controlled. Foot appears to be better. She is following up with Dr. Tim as well. She denies any worsening in her condition. She has completed antibiotics without any problems. Remained stable off antibiotics for the last several days. MEDICATIONS: acetaminophen (TYLENOL) 325 mg tablet Take 2 tablets by mouth every 4 hours as needed for pain. baclofen (LIORESAL) 5 mg tablet Take 5 mg by mouth daily at bedtime. Once at bed time, daily metoprolol succinate ER (TOPROL XL) 25 mg 24 hr tablet Take 1 tablet by mouth once daily. lisinopril (ZESTRIL, PRINIVIL) 40 mg tablet Take 1 tablet by mouth once daily. levothyroxine (SYNTHROID) 25 mcg tablet Take 1 tablet by mouth once daily. Except 2 tabs by mouth every Sunday and Sunday BIOTIN ORAL Take 1 tablet by mouth once daily. cholecalciferol, vitamin D3, (VITAMIN D3 ORAL) Take 2,000 Units by mouth once daily. alpha tocopheryl acetate (VITAMIN E) 400 unit capsule Take 400 Units by mouth once daily. diphenhydrAMINE-Acetaminophen 25-500 mg tab Take 2 tablets by mouth at bedtime as needed. bacitracin 500 unit/gram ointment Apply to affected area twice daily. pregabalin (LYRICA) 75 mg capsule Take 75 mg by mouth daily at bedtime. 1/2 a table (75 mg) once a day at night bioflav,lemon/vit Bcomp,C (LIPOFLAVONOID ORAL) Take by mouth. 1 tablet by mouth daily. MAGNESIUM ORAL Take 1 tablet by mouth once daily. (Patient not taking: Reported on 12/19/2022) multivit with calcium,iron,min (WOMEN'S MULTIPLE VITAMINS ORAL) Take 1 tablet by mouth once daily. PHYSICAL EXAM: Vital signs: stable, afeb General: alert, oriented, NAD Lungs: bilaterally clear to auscultation Heart: regular rate and rhythm Abdomen: soft, non tender, non distended, BS+ Extremities: no swollen joints Skin: no rash Right dorsum of the foot pinhead sized wounds with 1 wound showing slough at the base - this was debrided. Violaceous and dusky discoloration of the skin of the dorsum of the foot Evidence of chronic venous insufficiency present. No purulent drainage or surrounding cellulitis at this time Lab data: reviewed WBC (k/uL) Date Value 11/13/2022 4.94 11/12/2022 4.30 11/11/2022 3.68 11/01/2021 4.45 04/01/2021 5.25 03/08/2020 5.79 Hemoglobin (g/dL) Date Value 11/13/2022 10.1 11/12/2022 9.7 11/11/2022 10.1 11/01/2021 12.9 04/01/2021 12.4 03/08/2020 12.2 INR (no units) Date Value 11/05/2022 1.0 Sodium (mmol/L) Date Value 11/13/2022 137 11/12/2022 136 11/11/2022 137 11/01/2021 139 04/01/2021 141 03/08/2020 143 Potassium (mmol/L) Date Value 11/13/2022 4.7 11/12/2022 4.2 11/11/2022 3.6 11/01/2021 4.1 04/01/2021 4.0 03/08/2020 3.8 CO2 (mmol/L) Date Value 11/13/2022 28 11/12/2022 25 11/11/2022 25 11/01/2021 24 04/01/2021 25 03/08/2020 22 BUN (mg/dL) Date Value 11/13/2022 12 11/12/2022 11 11/11/2022 10 11/01/2021 16 04/01/2021 16 03/08/2020 17 Creatinine (mg/dL) Date Value 11/13/2022 1.00 11/12/2022 0.83 11/11/2022 0.74 11/01/2021 0.96 04/01/2021 1.00 03/08/2020 0.99 AST (U/L) Date Value 11/05/2022 17 11/01/2021 13 04/01/2021 14 03/08/2020 16 ALT (U/L) Date Value 11/05/2022 11 11/01/2021 9 04/01/2021 8 03/08/2020 9 Bilirubin, Total (mg/dL) Date Value 11/05/2022 1.2 11/01/2021 0.6 04/01/2021 0.6 03/08/2020 0.6 Alkaline Phosphatase (U/L) Date Value 11/05/2022 85 11/01/2021 103 04/01/2021 94 03/08/2020 98 WSR (mm/hr) Date Value 08/02/2016 8 06/04/2015 4 06/23/2013 8 12/26/2012 2 Sed Rate, Westergren (mm/hr) Date Value 11/05/2022 46 Lactate (mmol/L) Date Value 11/05/2022 1.0 11/05/2022 2.3 Sepsis Lactate (mmol/L) Date Value 11/06/2022 1.3 11/05/2022 2.2 Vancomycin (ug/mL) Date Value 11/08/2022 8.2 Microbiology data: reviewed Imaging data: reviewed Rc Rodriguez MD Pager: documented in this encounter [facility] 12-19-2022 Nurse Note Nursing Documentation Pertinent Medical History: HTN, CKD, Spinal stenosis, left Breast CA, COPD, November 05, 2022 pt ended up in the ED and admitted in the hospital for sepsis and cellulitis of right leg. Pt states she does not remember what happened or what the diagnosis was from the hospital. Wound Etiology according to patient: First time patient noticed the wound on the right leg was after her hospitalization November 05, 2022. Patient arrived via: ambulatory from home Home Care Company/Nursing Facility: N/A Consent captured for debridement per Rc Rodriguez MD and good until June 2023. Special Instructions (for example, patient stands at the bedside for exam/dressing): Anticoagulant Therapy: N/A Living Situation (ie... Apartment, house, MARYBEL): lives by herself Who lives with patient: no one Who will be performing wound care: self Available Support System: pt's son, pt's 3 sisters In-Home Assist Devices: home is one floor, bathroom assistance devices. Occupation: ie..Retired or Working: Retired Provider seeing patient: Dr Rc Rodriguez WOUND ASSESSMENT: Refer to Provider's Wound Assessment Note VASCULAR ASSESSMENT BY PROVIDER: N/A CHF History: not in pt's chart, pt denies EDEMA: Right foot: trace Right calf: none Left foot : not measured for this visit Left Calf: not measured for this visit Other: MEASUREMENTS: in CM Right Calf: 36.5 Right Ankle: 24.8 Left Calf: not measured for this visit Left Ankle: not measured for this visit Length: 45.0 WOUND PHOTOGRAPHY: YES x 1 DEBRIDEMENT PROCEDURE BY PROVIDER: Anesthetic Used: 2% Lidocaine gel applied per Parul Fernando RN Wound # 1 Other procedure: N/A Specimen collected: N/A WOUND TREATMENT PER MD ORDER: Wounds cleansed by mechanical debridement to allow provider to visualize wound base WOUND # 1 LOCATION: Right Dorsal foot cluster (fist visit 12/19/22) L: 4.0 cm x W: 5.0 cm x D: 0.3 cm Debridement by Provider: sq Post debridement measurements: L: 4.0 cm x W: 5.0 cm x D: 0.3 cm Cleansed with: Vashe Applied to malcolm-wound skin: vaseline to intact skin Applied to wound bed: mesalt packing, Adaptic Covered and secured with: 4x4 gauze, ABD, conform, tape Other: post op shoe COMPRESSION: 4 SELENE to the foot from toes to the ankle, 6 SELENE to the leg from the ankle to the knee. SPECIAL NEEDS: Coordination of care [facility] faxed for supplies Emotional support N/A OR set-up N/A Metal Drawer N/A Incontinence needs N/A DISCHARGED in stable condition to: home ambulatory with son Global surgical period dates if applicable: N/A PLAN/ORDERS: Return to the Wound Center to see Dr Rodriguez in 4 weeks at the [facility]. No need for antibiotics at this time. Follow up with Dr Proctor, vascular doctor, as scheduled 01/09/23 Please follow up with your PCP to have your Blood Pressure rechecked Continue aggressive nutritional support to assist wound healing Wound care supplies were ordered through [facility]. They will attempt to call you once. If you miss the call, or do not hear from them within 1-2 days, please call the phone number provided: . [facility] [phone] EDUCATION: The patient/family was instructed how to cleanse the wound(s). Visual demonstration on how to apply the dressing with teach back method. Signs & symptoms of infection were reviewed: Increased redness, swelling, pain, green/yellow drainage, fever and/or chills would all need to be evaluated by a Physician. Patient received typed home-going wound care instructions and has expressed intent to comply. OTHER EDUCATION: Provider discussed wound etiology, wound progression, debridement, dressing care, follow up. Education performed regarding lymphedema/edema: Elevation of extremity above the heart for 30 minutes three times daily and as needed Exercise such as writing the ABC's with your toes in the air, walking and/or calf pumps Wearing compression as ordered by provider Diet controlling of sodium as instructed by provider Use of medication to help control edema. UNIVERSAL PROTOCOL / SAFETY CHECKLIST Procedure to be Performed: Serial Sharp Debridement of right foot wounds. Sign In: 1445 A Moment of CARE was completed. Personnel directly involved with the procedure wore the appropriate PPE (Personal Protective Equipment). Patient/Surrogate Stated/Verified: PATIENT VERIFIED(optional for EMERGENT procedures): Patient name, Date of , Relevant allergies, and The intended procedure Time Out Communication: 150 Intended patient and procedure match the source documents. Consent documented and matches the intended procedure. Sign Out: 1333 SIGN OUT (optional for EMERGENT procedures): No specimen collected. All instruments, equipment, possible retained foreign bodies accounted for. Post-procedure follow-up management communicated and Plan of Care Visit completed when applicable. Britt Ordoñez RN/suyapa Current HBOT Status: Active or Complete - see screening below WOUND CENTER HYPERBARIC OXYGEN THERAPY SCREENING 1. Is the patient diabetic? (If No, skip to question 5) No 5. Has the patient been diagnosed with osteomyelitis? No 6. Has the patient had a previous skin graft or flap at the wound? No 7. Has the patient had or been offered vascular intervention/evaluation? Yes Pt started with Dr Pope, scheduled apt with Dr Proctor 01/09/23. 8. Does the patient have a wound at an amputation site? No 9. Has the patient had radiation therapy at the site of the problem? No If Yes to ANY of questions 5-9, consult the Hyperbaric Center Britt Ordoñez RN/suyapa documented in this encounter [facility] 12-13-2022 Miscellaneous Notes Spoke with patient and explained message in detail that ultrasound on 12/15/22 was no longer needed. Canceled ultrasound. Patient verbalized understanding. Isis Sena She had been scheduled for an upcoming renal ultrasound to look at possible kidney cysts from six months ago. They did it while she was in the hospital recently so she does not need it repeated. We can cancel it. documented in this encounter [facility] 11-16-2022 Note HNO ID: [id number] Author: Zenia Oreilly RN Service: ? Author Type: Registered Nurse Type: Progress Notes Filed: 11/16/2022 3:50 PM Note Text: TRANSITIONAL CARE MANAGEMENT (TCM) COMMUNITY MONITORING PROGRAM Provider Action/FYI: Pt states she is feeling better Denies CP, SOB, N/V, fever or chills Sister will forklift picker knee scooter today after 5 at DDM Declines PCP follow up Denies questions or concerns at this time Apply bacitracin to lubricate skin and some of the skin will peel. Clean and dry and use postop shoe for weightbearing as tolerated and the knee walker. MATY 12/11 SUMMARY: Pt discharged from [facility] on 11/15/22. Admitted for: Cellulitis of right lower leg Contact made with patient: Yes Hi my name is Zenia Oreilly RN and I am calling from the [facility] on behalf of your PCP, Tu Canela MD I understand you were recently in the hospital so I am calling to check in with you to ensure you are feeling well now that you're home. May I ask you a few questions related to your hospital stay and well-being? Yes Contact with patient post discharge, spoke to patient. Patient identified by name and . Do you feel your health is BETTER, WORSE, or the SAME since leaving the hospital? Better ACTION TAKEN: Patient indicated symptoms are better or same, no action required. Continue outreach. MEDICATIONS: Many patients have questions or concerns about their medications once they are home. Do you have any questions about taking your medications or which medication you should be on? No Do you need any medication refills at this time, including any of the medications you might take only when needed? No ACTION TAKEN: No action required For RNs or Pharmacy completing outreach ONLY, was a medication review completed? No, declined at this time per patient preference. SOCIAL: We would like to make sure you have what you need so that your basics needs are met - including your personal safety, food, housing and medications. Would you like to speak with a social work team assembly line machine operator to help give you support for any of these needs? No It can be normal to feel anxious or down during a time like this. Would you like to talk to a mental health professional about how you have been feeling? No ACTION TAKEN: No action taken DISCHARGE INTRUCTIONS: Your discharge instructions / After Visit Summary (AVS) are important in guiding you through the recovery process. Do you have any questions related to your discharge instructions? No Do you have all the necessary equipment and supplies at home? Yes ACTION TAKEN: No action required I would like to help you schedule a hospital follow-up virtual or telephone visit with your PCP. This is a great way for you to connect with your provider to ensure you have safely transitioned home. If you are agreeable, I will send your request to a dental scheduler who will contact and assist you with that appointment. This will give you an opportunity to ask any questions or address any concerns you may have with your PCP. Inform the patient that if they have any questions or concerns prior to that appointment, to call their PCP's office right away. ACTION TAKEN: No action required, patient declines appointment. Your doctor would like us to remind you of the recommendations regarding the coronavirus (Covid19) outbreak: Avoid public places as much as possible. Avoid close contact (within 6 feet) with others you don?t live with, especially if they are sick. Stay home if you are sick. Wash your hands regularly for at least 20 seconds with soap and water. Wear a cloth mask in public places to help reduce community spread. Do not go to your Doctor?s office unless instructed to do so. For any non-emergency symptoms, call your Doctor?s office to get instructions on how to manage (we might recommend a telephone or virtual visit). For emergency symptoms, proceed to Emergency Department as usual but inform them of cough and fever symptoms GAL if present (or call on the way if possible). LINDA Education Ordered -: No Zenia Oreilly RN, BSN Transitional Event Specialist [facility] 11-16-2022 History of Presen t illness Narrative TRANSITIONAL CARE MANAGEMENT (TCM) COMMUNITY MONITORING PROGRAM Provider Action/FYI: Pt states she is feeling better Denies CP, SOB, N/V, fever or chills Sister will forklift picker knee scooter today after 5 at DDM Declines PCP follow up Denies questions or concerns at this time Apply bacitracin to lubricate skin and some of the skin will peel. Clean and dry and use postop shoe for weightbearing as tolerated and the knee walker. MATY 12/11 SUMMARY: Pt discharged from [facility] on 11/15/22. Admitted for: Cellulitis of right lower leg Contact made with patient: Yes Hi my name is Zenia Oreilly RN and I am calling from the [facility] on behalf of your PCP, Tu Canela MD I understand you were recently in the hospital so I am calling to check in with you to ensure you are feeling well now that you're home. May I ask you a few questions related to your hospital stay and well-being? Yes Contact with patient post discharge, spoke to patient. Patient identified by name and . Do you feel your health is BETTER, WORSE, or the SAME since leaving the hospital? Better ACTION TAKEN: Patient indicated symptoms are better or same, no action required. Continue outreach. MEDICATIONS: Many patients have questions or concerns about their medications once they are home. Do you have any questions about taking your medications or which medication you should be on? No Do you need any medication refills at this time, including any of the medications you might take only when needed? No ACTION TAKEN: No action required For RNs or Pharmacy completing outreach ONLY, was a medication review completed? No, declined at this time per patient preference. SOCIAL: We would like to make sure you have what you need so that your basics needs are met - including your personal safety, food, housing and medications. Would you like to speak with a social work team assembly line machine operator to help give you support for any of these needs? No It can be normal to feel anxious or down during a time like this. Would you like to talk to a mental health professional about how you have been feeling? No ACTION TAKEN: No action taken DISCHARGE INTRUCTIONS: Your discharge instructions / After Visit Summary (AVS) are important in guiding you through the recovery process. Do you have any questions related to your discharge instructions? No Do you have all the necessary equipment and supplies at home? Yes ACTION TAKEN: No action required I would like to help you schedule a hospital follow-up virtual or telephone visit with your PCP. This is a great way for you to connect with your provider to ensure you have safely transitioned home. If you are agreeable, I will send your request to a dental scheduler who will contact and assist you with that appointment. This will give you an opportunity to ask any questions or address any concerns you may have with your PCP. Inform the patient that if they have any questions or concerns prior to that appointment, to call their PCP's office right away. ACTION TAKEN: No action required, patient declines appointment. Your doctor would like us to remind you of the recommendations regarding the coronavirus (Covid19) outbreak: Avoid public places as much as possible. Avoid close contact (within 6 feet) with others you don t live with, especially if they are sick. Stay home if you are sick. Wash your hands regularly for at least 20 seconds with soap and water. Wear a cloth mask in public places to help reduce community spread. Do not go to your Doctor s office unless instructed to do so. For any non-emergency symptoms, call your Doctor s office to get instructions on how to manage (we might recommend a telephone or virtual visit). For emergency symptoms, proceed to Emergency Department as usual but inform them of cough and fever symptoms GAL if present (or call on the way if possible). LINDA Education Ordered -: No Zenia Oreilly RN, BSN Transitional Event Specialist [facility] Home Visit Referral Source of Stratification: [facility] Hospital Admission Status: Discharged Readmission Risk Score: 19 ARLPH Score: 14 Patient meets program referral criteria: No Patient does not qualify for High Risk TCM Home Visit program due to: Discharged home, does not meet program criteria Zenia Oreilly RN November 16, 2022 8:46 AM TRANSITIONAL CARE MANAGEMENT (TCM) COMMUNITY MONITORING PROGRAM Provider Action/FYI: Attempted initial outreach to pt for hospital discharge. No answer, left VM to return my call. Will attempt to outreach to pt again later today or tomorrrow if no return call from pt. Apply bacitracin to lubricate skin and some of the skin will peel. Clean and dry and use postop shoe for weightbearing as tolerated and the knee walker. MATY 12/11 SUMMARY: Pt discharged from [facility] on 11/15/22. Admitted for: Cellulitis of right lower leg Contact made with patient: No - next outreach attempt will be on next day Outreach ended documented in this encounter [facility] 11-16-2022 Note Patient Outreach (AM [facility]) FLORECITA HEALY ([id number]) 1940 F Date Time Provider Department 11/16/22 ZENIA OREILLY During your visit today, we recorded the following information about you: Zenia Oreilly RN 11/16/2022 3:50 PM Signed TCM Home Visit Referral Source of Stratification: [facility] Hospital Admission Status: Discharged Readmission Risk Score: 19 RALPH Score: 14 Patient meets program referral criteria: No Patient does not qualify for High Risk TCM Home Visit program due to: Discharged home, does not meet program criteria Zenia Oreilly RN November 16, 2022 8:46 AM TRANSITIONAL CARE MANAGEMENT (TCM) COMMUNITY MONITORING PROGRAM Provider Action/FYI: Attempted initial outreach to pt for hospital discharge. No answer, left VM to return my call. Will attempt to outreach to pt again later today or tomorrrow if no return call from pt. Apply bacitracin to lubricate skin and some of the skin will peel. Clean and dry and use postop shoe for weightbearing as tolerated and the knee walker. MATY 12/11 SUMMARY: Pt discharged from [facility] on 11/15/22. Admitted for: Cellulitis of right lower leg Contact made with patient: No - next outreach attempt will be on next day Outreach ended Zenia Oreilly RN 11/16/2022 3:50 PM Signed TRANSITIONAL CARE MANAGEMENT (TCM) COMMUNITY MONITORING PROGRAM Provider Action/FYI: Pt states she is feeling better Denies CP, SOB, N/V, fever or chills Sister will forklift picker knee scooter today after 5 at [facility] Declines PCP follow up Denies questions or concerns at this time Apply bacitracin to lubricate skin and some of the skin will peel. Clean and dry and use postop shoe for weightbearing as tolerated and the knee walker. MATY 12/11 SUMMARY: Pt discharged from [facility] on 11/15/22. Admitted for: Cellulitis of right lower leg Contact made with patient: Yes Hi my name is Zenia Oreilly RN and I am calling from the [facility] on behalf of your PCP, Tu Canela MD I understand you were recently in the hospital so I am calling to check in with you to ensure you are feeling well now that you're home. May I ask you a few questions related to your hospital stay and well-being? Yes Contact with patient post discharge, spoke to patient. Patient identified by name and . Do you feel your health is BETTER, WORSE, or the SAME since leaving the hospital? Better ACTION TAKEN: Patient indicated symptoms are better or same, no action required. Continue outreach. MEDICATIONS: Many patients have questions or concerns about their medications once they are home. Do you have any questions about taking your medications or which medication you should be on? No Do you need any medication refills at this time, including any of the medications you might take only when needed? No ACTION TAKEN: No action required For RNs or Pharmacy completing outreach ONLY, was a medication review completed? No, declined at this time per patient preference. SOCIAL: We would like to make sure you have what you need so that your basics needs are met - including your personal safety, food, housing and medications. Would you like to speak with a social work team assembly line machine operator to help give you support for any of these needs? No It can be normal to feel anxious or down during a time like this. Would you like to talk to a mental health professional about how you have been feeling? No ACTION TAKEN: No action taken DISCHARGE INTRUCTIONS: Your discharge instructions / After Visit Summary (AVS) are important in guiding you through the recovery process. Do you have any questions related to your discharge instructions? No Do you have all the necessary equipment and supplies at home? Yes ACTION TAKEN: No action required I would like to help you schedule a hospital follow-up virtual or telephone visit with your PCP. This is a great way for you to connect with your provider to ensure you have safely transitioned home. If you are agreeable, I will send your request to a dental scheduler who will contact and assist you with that appointment. This will give you an opportunity to ask any questions or address any concerns you may have with your PCP. Inform the patient that if they have any questions or concerns prior to that appointment, to call their PCP's office right away. ACTION TAKEN: No action required, patient declines appointment. Your doctor would like us to remind you of the recommendations regarding the coronavirus (Covid19) outbreak: Avoid public places as much as possible. Avoid close contact (within 6 feet) with others you don?t live with, especially if they are sick. Stay home if you are sick. Wash your hands regularly for at least 20 seconds with soap and water. Wear a cloth mask in public places to help reduce community spread. Do n (more content not included)... [facility] 11-16-2022 Note HNO ID: [id number] Author: Zenia Oreilly RN Service: ? Author Type: Registered Nurse Type: Progress Notes Filed: 11/16/2022 3:50 PM Note Text: TCM Home Visit Referral Source of Stratification: [facility] Admission Status: Discharged Readmission Risk Score: 19 RALPH Score: 14 Patient meets program referral criteria: No Patient does not qualify for High Risk TCM Home Visit program due to: Discharged home, does not meet program criteria Zenia Oreilly RN November 16, 2022 8:46 AM TRANSITIONAL CARE MANAGEMENT (TCM) COMMUNITY MONITORING PROGRAM Provider Action/FYI: Attempted initial outreach to pt for hospital discharge. No answer, left VM to return my call. Will attempt to outreach to pt again later today or tomorrrow if no return call from pt. Apply bacitracin to lubricate skin and some of the skin will peel. Clean and dry and use postop shoe for weightbearing as tolerated and the knee walker. MATY 12/11 SUMMARY: Pt discharged from [facility] on 11/15/22. Admitted for: Cellulitis of right lower leg Contact made with patient: No - next outreach attempt will be on next day Outreach ended [facility] 11-15-2022 Note HNO ID: [id number] Author: Shayne Hernandez MD Service: Hospital Medicine Author Type: Physician Type: Progress Notes Filed: 11/15/2022 7:52 AM Note Text: The patient needed knee walker to use since she has too much pain to bear weight. We tried compression last night on her and swelling is somewhat improved at this point but the wraps apparently were too tight and she took them off. She sloughing more skin as this was a toxic releasing bacteria and she is having the peeling now over the area of the cellulitis. She has a case management coordinator who is been treating her with steroid injections and she will follow-up with him next week In addition to Dr. Rodriguez and her family doctor. BP (!) 137/49 Pulse 77 Temp 37.1 ?C (98.8 ?F) (Oral) Resp 17 Ht 165.1 cm (5' 5 ) Wt 76 kg (167 lb 8.8 oz) SpO2 94% BMI 27.88 kg/m? Cardiopulmonary exam performed and stable and unchanged she has slight decrease in redness with more peeling of the skin as is seen after toxin leasing bacterial infections. Stable for discharge today and the equipment she needs could be picked up so she can function at home and her Zyvox prescription has been filled and she has possession of it. [facility] 11-14-2022 Note HNO ID: [id number] Author: Lila Jimenez RN Service: Care Management Author Type: Registered Nurse Type: Care Mgt Progress Note Filed: 11/14/2022 12:47 PM Note Text: CARE MANAGEMENT PROGRESS NOTE SERVICE DATE: 11/14/2022 SERVICE TIME: 12:46 PM LOS: 9 days Needs Prior to Discharge: Accepting Facility;Facility or Agency Choices;Home Care Order;OT/PT Evaluation;Other: See Comment;Precertification;To Be Determined (Medical Clearance) EMR reviewed. Plan of care discussed with Primary RN Brandon. PT and OT evals are pending. CM assigned will continue to follow. SIGNATURE: Lila Jimenez RN PATIENT NAME: Florecita Healy DATE: November 14, 2022 TIME: 12:46 PM PAGER/CONTACT #: [phone] [facility] 11-13-2022 Note HNO ID: [id number] Author: Lila Jimenez RN Service: Care Management Author Type: Registered Nurse Type: Care Mgt Progress Note Filed: 11/13/2022 12:28 PM Note Text: CARE MANAGEMENT PROGRESS NOTE SERVICE DATE: 11/13/2022 SERVICE TIME: 12:27 PM LOS: 8 days Needs Prior to Discharge: Other: See Comment (Medical Clearance) EMR reviewed. Plan of care discussed with Dr. Hernandez. Possible discharge home Sunday on PO Zyvox. CM assigned will continue to follow. SIGNATURE: Lila Jimenez RN PATIENT NAME: Florecita Healy DATE: November 13, 2022 TIME: 12:27 PM PAGER/CONTACT #: [phone] [facility] 11-13-2022 Note HNO ID: [id number] Author: Shayne Hernandez MD Service: Hospital Medicine Author Type: Physician Type: Progress Notes Filed: 11/13/2022 1:58 PM Note Text: DEPARTMENT OF HOSPITAL MEDICINE PROGRESS NOTE SERVICE DATE: 11/13/2022 SERVICE TIME: 9:32 AM Hospital Medicine/Primary Attending: Shayne Hernandez MD NIGHT AND WEEKEND COVERAGE: [place] COVERAGE: Nights: [phone], please page [facility] Night coverage pager [phone]. ASSESSMENT No chest pain or shortness of breath Cellulitis looks improved today-still has ecchymoses from presumed toxin release and her initial vomiting and diarrhea probably secondary to toxin release PLAN Ancef with Zyvox MRI of the foot and ankle pending radiologist final reading Bacitracin ointment to soften skin on foot Reason for Admission: Cellulitis right leg Consultants: Dr. Rodriguez for infectious disease PROCEDURES: NONE Disposition: Home Recent Labs 11/13/22 0536 11/12/22 0750 12/31/22 0527 MCV 89.7 87.4 86.4 MCH 28.1 28.4 28.1 MPV 10.6 10.5 10.9 Recent Labs 11/13/2253511/12/2274911/11/2252611/06/2234611/05/221336 WBC 4.94 4.30 3.68* < > 11.70* RBC 3.60* 3.41* 3.60* < > 4.03 HB 10.1* 9.7* 10.1* < > 11.6 HCT 32.3* 29.8* 31.1* < > 35.7* PLT 248 213 175 < > 148* MCV 89.7 87.4 86.4 < > 88.6 MCH 28.1 28.4 28.1 < > 28.8 MPV 10.6 10.5 10.9 < > 10.7 ABSNEUT -- -- -- -- 9.40* NEUTP -- -- -- -- 80.3 LYMPHP -- -- -- -- 6.8 MONOP -- -- -- -- 11.3 < > = values in this interval not displayed. Recent Labs 11/13/2253511/12/2274911/11/2252611/06/2234611/05/22 1337 GLUC 117* 114* 115* < > 133* NA 137 136 137 < > 136 K 4.7 4.2 3.6* < > 3.6* CHLOR 101 103 103 < > 100 CO2 28 25 25 < > 24 CREAT 1.00* 0.83 0.74 < > 1.04* BUN 12 11 10 < > 18 ANION 8* 8* 9 < > 12 CA 9.2 8.8 8.6 < > 8.8 TPROT -- -- -- -- 7.4 ALB -- -- -- -- 3.5* TBILI -- -- -- -- 1.2 ALKPHOS -- -- -- -- 85 AST -- -- -- -- 17 ALT -- -- -- -- 11 < > = values in this interval not displayed. Recent Labs 11/05/22 1337 CRP 18.9* Recent Labs 11/06/22 2117 LACT 1.3 Recent Labs 11/13/22 0536 11/12/22 0750 11/11/22 0527 BUN 12 11 10 CREAT 1.00* 0.83 0.74 CA 9.2 8.8 8.6 MG -- -- 2.0 Most recent labs Cellulitis of right lower leg POA: Yes Primary hypertension POA: Yes Stage 3a chronic kidney disease (HCC) POA: Yes DDD (degenerative disc disease), lumbar POA: Yes Spinal stenosis of cervical region POA: Yes Spinal stenosis of lumbar region with neurogenic claudication POA: Yes Chronic pain syndrome POA: Yes Urinary retention POA: Yes Postoperative hypothyroidism POA: Yes Vaginitis due to Callie POA: No HOSPITAL COURSE: This is an 82 year old female, with a PMH of COPD, HTN, Hyperlipidemia, Hypothyroidism, Left Breast Cancer and Chronic Back Pain, who presented to the ED on 11/05/22 with complaints of fever, right leg pain/red, diarrhea and nausea and vomiting. She initially started with a fever and chills 2 days prior to admission. Her diarrhea was constant on the day prior to admission. Her stool was liquid and brown. Her last episode was in the morning prior to admission. Her cough was nonproductive and associated with nausea. She first noted right leg pain and redness on the morning of admission. She also noted difficulty urinating since the morning. She reported malaise and feeling miserable. She lived home alone with her dog. In ED, she was febrile to 100.2 F and HR 96. K 3.6, Cr 1.0, LFTs nl, WBC 11.7, Hgb 11.6, Plts 148. Lactate 2.3 - 2.2 - 1.1. NT ProBNP 6,427. COVID-19, Influenza A/B and RSV tests were negative. XR R Ankle/Foot showed soft tissue swelling prominently overlying the lateral malleolus as well as the foot with no bony erosions. CXR showed mild prominence of the pulmonary vascular interstitial markings bilaterally, slightly increased when compared with the prior exam suggesting interstitial disease. CT of Abdomen/Pelvis showed NAD. Venous US of Right Leg showed no DVT. The patient was given KCl, 1L IV NS, Zofran, Zosyn and IV Vancomycin prior to admission to a medical bed. She required straight cath x1 for 500cc urine retention. Subsequent bladder scans were < 200 cc. UA and CANDS ordered. She was continued on IV Zosyn/Vanco and Stool studies were ordered. Urine and Blood Cultures were negative. On 11/07, significant erythema Right foot and ankle continued. ID consulted and changed antibiotics to IV Ancef. Patient's GI symptoms resolved. By 11/09, cellulitis and swelling were showing good improvement. Principal Problem: Sepsis (HCC) Assessment AND Plan: Presented with fever, tachycardia, WBC 11.7, Lactate 2.3 Reported rigors at home Lactate 2.3 - 2.2 - 1.0 Likely due to Cellulitis 11/05 Blood Cx x2: negative 11/06 Urine Cx: negative Active Problems: Cellulitis of right lower leg Assessment AND Plan: Improving (more content not included)... [facility] 11-12-2022 Note HNO ID: [id number] Author: Shayne Hernandez MD Service: Hospital Medicine Author Type: Physician Type: Progress Notes Filed: 11/12/2022 2:53 PM Note Text: DEPARTMENT OF HOSPITAL MEDICINE PROGRESS NOTE SERVICE DATE: 11/12/2022 SERVICE TIME: 2:28 PM Hospital Medicine/Primary Attending: Shayne Hernandez MD NIGHT AND WEEKEND COVERAGE: [place] COVERAGE: Nights: [phone], please page [facility] Night coverage pager [phone]. ASSESSMENT No chest pain or shortness of breath Cellulitis looks improved today-still has ecchymoses from presumed toxin release and her initial vomiting and diarrhea probably secondary to toxin release PLAN Ancef with Zyvox MRI of the foot and ankle pending Bacitracin ointment to soften skin on foot Reason for Admission: Cellulitis right leg Consultants: Dr. Rodriguez for infectious disease PROCEDURES: NONE Disposition: Home Recent Labs 11/12/22 0750 11/11/22 0527 11/10/22 0505 11/07/22 0633 11/06/22 0347 11/05/22 2154 11/05/22 1802 TROPT -- -- -- -- 0.042* 0.046* 0.048* MCV 87.4 86.4 86.5 < > 89.1 -- -- MCH 28.4 28.1 28.1 < > 28.5 -- -- MPV 10.5 10.9 10.6 < > 11.4 -- -- < > = values in this interval not displayed. Recent Labs 11/12/22 0750 11/11/22 0511/10/22 05011/06/2234611/05/22 1337 WBC 4.30 3.68* 4.45 < > 11.70* RBC 3.41* 3.60* 3.70* < > 4.03 HB 9.7* 10.1* 10.4* < > 11.6 HCT 29.8* 31.1* 32.0* < > 35.7* PLT 213 175 169 < > 148* MCV 87.4 86.4 86.5 < > 88.6 MCH 28.4 28.1 28.1 < > 28.8 MPV 10.5 10.9 10.6 < > 10.7 ABSNEUT -- -- -- -- 9.40* NEUTP -- -- -- -- 80.3 LYMPHP -- -- -- -- 6.8 MONOP -- -- -- -- 11.3 < > = values in this interval not displayed. Recent Labs 11/12/22 0750 11/11/22 0511/10/22 05011/06/2234611/05/22 1337 GLUC 114* 115* 114* < > 133* NA 136 137 139 < > 136 K 4.2 3.6* 3.9 < > 3.6* CHLOR 103 103 104 < > 100 CO2 25 25 26 < > 24 CREAT 0.83 0.74 0.88 < > 1.04* BUN 11 10 10 < > 18 ANION 8* 9 9 < > 12 CA 8.8 8.6 8.3* < > 8.8 TPROT -- -- -- -- 7.4 ALB -- -- -- -- 3.5* TBILI -- -- -- -- 1.2 ALKPHOS -- -- -- -- 85 AST -- -- -- -- 17 ALT -- -- -- -- 11 < > = values in this interval not displayed. Recent Labs 11/05/22 1337 CRP 18.9* Recent Labs 11/06/22211611/05/22215311/05/22 1649 LACT 1.3 1.0 2.2* Recent Labs 11/12/22 0750 11/11/22 0527 11/10/22 0505 BUN 11 10 10 CREAT 0.83 0.74 0.88 CA 8.8 8.6 8.3* MG -- 2.0 -- Most recent labs Cellulitis of right lower leg POA: Yes Primary hypertension POA: Yes Stage 3a chronic kidney disease (HCC) POA: Yes DDD (degenerative disc disease), lumbar POA: Yes Spinal stenosis of cervical region POA: Yes Spinal stenosis of lumbar region with neurogenic claudication POA: Yes Chronic pain syndrome POA: Yes Urinary retention POA: Yes Postoperative hypothyroidism POA: Yes Vaginitis due to Callie POA: No HOSPITAL COURSE: This is an 82 year old female, with a PMH of COPD, HTN, Hyperlipidemia, Hypothyroidism, Left Breast Cancer and Chronic Back Pain, who presented to the ED on 11/05/22 with complaints of fever, right leg pain/red, diarrhea and nausea and vomiting. She initially started with a fever and chills 2 days prior to admission. Her diarrhea was constant on the day prior to admission. Her stool was liquid and brown. Her last episode was in the morning prior to admission. Her cough was nonproductive and associated with nausea. She first noted right leg pain and redness on the morning of admission. She also noted difficulty urinating since the morning. She reported malaise and feeling miserable. She lived home alone with her dog. In ED, she was febrile to 100.2 F and HR 96. K 3.6, Cr 1.0, LFTs nl, WBC 11.7, Hgb 11.6, Plts 148. Lactate 2.3 - 2.2 - 1.1. NT ProBNP 6,427. COVID-19, Influenza A/B and RSV tests were negative. XR R Ankle/Foot showed soft tissue swelling prominently overlying the lateral malleolus as well as the foot with no bony erosions. CXR showed mild prominence of the pulmonary vascular interstitial markings bilaterally, slightly increased when compared with the prior exam suggesting interstitial disease. CT of Abdomen/Pelvis showed NAD. Venous US of Right Leg showed no DVT. The patient was given KCl, 1L IV NS, Zofran, Zosyn and IV Vancomycin prior to admission to a medical bed. She required straight cath x1 for 500cc urine retention. Subsequent bladder scans were < 200 cc. UA and CANDS ordered. She was continued on IV Zosyn/Vanco and Stool studies were ordered. Urine and Blood Cultures were negative. On 11/07, significant erythema Right foot and ankle continued. ID consulted and changed antibiotics to IV Ancef. Patient's GI symptoms resolved. By 11/09, cellulitis and swelling were showing good improvement. Principal Problem: Sepsis (HCC) Assessment AND Plan: Presented with fever, tachycardia, WBC 11.7, Lactate 2.3 Reported ri (more content not included)... [facility] 11-11-2022 Note HNO ID: [id number] Author: Shayne Hernandez MD Service: Hospital Medicine Author Type: Physician Type: Progress Notes Filed: 11/11/2022 8:55 AM Note Text: DEPARTMENT OF HOSPITAL MEDICINE PROGRESS NOTE SERVICE DATE: 11/11/2022 SERVICE TIME: 8:08 AM Hospital Medicine/Primary Attending: Shayne Hernandez MD NIGHT AND WEEKEND COVERAGE: [place] COVERAGE: Nights: [phone], please page [facility] Night coverage pager [phone]. ASSESSMENT No chest pain or shortness of breath Cellulitis looks improved today-still has ecchymoses from presumed toxin release and her initial vomiting and diarrhea probably secondary to toxin release PLAN Dr. Rodriguez planning to change antibiotics to oral Zyvox and will reassess tomorrow to consider home-going though it may need to be Sunday morning for her to be able to get Zyvox from the pharmacy since he will be New 's Day. Reason for Admission: Cellulitis right leg Consultants: Dr. Rodriguez for infectious disease PROCEDURES: NONE Disposition: Home Recent Labs 11/11/22 0527 11/10/22 0505 11/09/22 0323 11/07/22 0633 11/06/22 0347 11/05/22 2154 11/05/22 1802 11/05/22 1337 CK -- -- -- -- -- -- -- 211* TROPT -- -- -- -- 0.042* 0.046* 0.048* 0.039* MCV 86.4 86.5 86.3 < > 89.1 -- -- 88.6 MCH 28.1 28.1 28.6 < > 28.5 -- -- 28.8 MPV 10.9 10.6 10.6 < > 11.4 -- -- 10.7 < > = values in this interval not displayed. Recent Labs 11/11/2252611/10/2250411/09/2232211/06/2234611/05/221336 WBC 3.68* 4.45 3.73 < > 11.70* RBC 3.60* 3.70* 3.36* < > 4.03 HB 10.1* 10.4* 9.6* < > 11.6 HCT 31.1* 32.0* 29.0* < > 35.7* PLT 175 169 143* < > 148* MCV 86.4 86.5 86.3 < > 88.6 MCH 28.1 28.1 28.6 < > 28.8 MPV 10.9 10.6 10.6 < > 10.7 ABSNEUT -- -- -- -- 9.40* NEUTP -- -- -- -- 80.3 LYMPHP -- -- -- -- 6.8 MONOP -- -- -- -- 11.3 < > = values in this interval not displayed. Recent Labs 11/11/2252611/10/2250411/09/2232111/06/2234611/05/22 1337 GLUC 115* 114* 105* < > 133* NA 137 139 138 < > 136 K 3.6* 3.9 4.0 < > 3.6* CHLOR 103 104 105 < > 100 CO2 25 26 25 < > 24 CREAT 0.74 0.88 0.90 < > 1.04* BUN 10 10 11 < > 18 ANION 9 9 8* < > 12 CA 8.6 8.3* 8.3* < > 8.8 TPROT -- -- -- -- 7.4 ALB -- -- -- -- 3.5* TBILI -- -- -- -- 1.2 ALKPHOS -- -- -- -- 85 AST -- -- -- -- 17 ALT -- -- -- -- 11 < > = values in this interval not displayed. Recent Labs 11/05/22 1337 CRP 18.9* Recent Labs 11/06/22 2117 11/05/22 2154 11/05/22 1649 11/05/22 1337 LACT 1.3 1.0 2.2* 2.3* Recent Labs 11/11/22 0527 11/10/22 0505 11/09/22 0322 BUN 10 10 11 CREAT 0.74 0.88 0.90 CA 8.6 8.3* 8.3* Most recent labs Cellulitis of right lower leg POA: Yes Primary hypertension POA: Yes Stage 3a chronic kidney disease (HCC) POA: Yes DDD (degenerative disc disease), lumbar POA: Yes Spinal stenosis of cervical region POA: Yes Spinal stenosis of lumbar region with neurogenic claudication POA: Yes Chronic pain syndrome POA: Yes Urinary retention POA: Yes Diarrhea POA: Yes Postoperative hypothyroidism POA: Yes Vaginitis due to Callie POA: No HOSPITAL COURSE: This is an 82 year old female, with a PMH of COPD, HTN, Hyperlipidemia, Hypothyroidism, Left Breast Cancer and Chronic Back Pain, who presented to the ED on 11/05/22 with complaints of fever, right leg pain/red, diarrhea and nausea and vomiting. She initially started with a fever and chills 2 days prior to admission. Her diarrhea was constant on the day prior to admission. Her stool was liquid and brown. Her last episode was in the morning prior to admission. Her cough was nonproductive and associated with nausea. She first noted right leg pain and redness on the morning of admission. She also noted difficulty urinating since the morning. She reported malaise and feeling miserable. She lived home alone with her dog. In ED, she was febrile to 100.2 F and HR 96. K 3.6, Cr 1.0, LFTs nl, WBC 11.7, Hgb 11.6, Plts 148. Lactate 2.3 - 2.2 - 1.1. NT ProBNP 6,427. COVID-19, Influenza A/B and RSV tests were negative. XR R Ankle/Foot showed soft tissue swelling prominently overlying the lateral malleolus as well as the foot with no bony erosions. CXR showed mild prominence of the pulmonary vascular interstitial markings bilaterally, slightly increased when compared with the prior exam suggesting interstitial disease. CT of Abdomen/Pelvis showed NAD. Venous US of Right Leg showed no DVT. The patient was given KCl, 1L IV NS, Zofran, Zosyn and IV Vancomycin prior to admission to a medical bed. She required straight cath x1 for 500cc urine retention. Subsequent bladder scans were < 200 cc. UA and CANDS ordered. She was continued on IV Zosyn/Vanco and Stool studies were ordered. Urine and Blood Cultures were negative. On 11/07, significant erythema Right foot and ankle continued. ID consulted and changed antibiotics to IV A (more content not included)... [facility] 11-10-2022 Note HNO ID: [id number] Author: Shayne Hernandez MD Service: Hospital Medicine Author Type: Physician Type: Progress Notes Filed: 11/10/2022 6:22 PM Note Text: DEPARTMENT OF HOSPITAL MEDICINE PROGRESS NOTE SERVICE DATE: 11/10/2022 SERVICE TIME: 6:07 PM Hospital Medicine/Primary Attending: Shayne Hernandez MD NIGHT AND WEEKEND COVERAGE: [place] COVERAGE: Nights: [phone], please page [facility] Night coverage pager [phone]. ASSESSMENT No chest pain or shortness of breath Cellulitis looks worse today PLAN Continue antibiotics and elevation with reassessment tomorrow Reason for Admission: Cellulitis right leg Consultants: Dr. Rodriguez for infectious disease PROCEDURES: NONE Disposition: Home Recent Labs 11/10/22 0505 11/09/22 0323 11/08/22 0544 11/07/22 0633 11/06/22 0347 11/05/22 2154 11/05/22 1802 11/05/22 1337 CK -- -- -- -- -- -- -- 211* TROPT -- -- -- -- 0.042* 0.046* 0.048* 0.039* MCV 86.5 86.3 89.0 < > 89.1 -- -- 88.6 MCH 28.1 28.6 28.4 < > 28.5 -- -- 28.8 MPV 10.6 10.6 11.2 < > 11.4 -- -- 10.7 < > = values in this interval not displayed. Recent Labs 11/10/22 0505 11/09/22 0323 11/08/22 0544 11/06/22 0347 11/05/22 1337 WBC 4.45 3.73 3.63* < > 11.70* RBC 3.70* 3.36* 3.56* < > 4.03 HB 10.4* 9.6* 10.1* < > 11.6 HCT 32.0* 29.0* 31.7* < > 35.7* PLT 169 143* 115* < > 148* MCV 86.5 86.3 89.0 < > 88.6 MCH 28.1 28.6 28.4 < > 28.8 MPV 10.6 10.6 11.2 < > 10.7 ABSNEUT -- -- -- -- 9.40* NEUTP -- -- -- -- 80.3 LYMPHP -- -- -- -- 6.8 MONOP -- -- -- -- 11.3 < > = values in this interval not displayed. Recent Labs 11/10/22 05011/09/2232111/08/22 0544 11/06/22 0347 11/05/22 1337 GLUC 114* 105* 102* < > 133* NA 139 138 139 < > 136 K 3.9 4.0 3.3* < > 3.6* CHLOR 104 105 105 < > 100 CO2 26 25 24 < > 24 CREAT 0.88 0.90 0.94 < > 1.04* BUN 10 11 14 < > 18 ANION 9 8* 10 < > 12 CA 8.3* 8.3* 8.5 < > 8.8 TPROT -- -- -- -- 7.4 ALB -- -- -- -- 3.5* TBILI -- -- -- -- 1.2 ALKPHOS -- -- -- -- 85 AST -- -- -- -- 17 ALT -- -- -- -- 11 < > = values in this interval not displayed. Recent Labs 11/05/22 1337 CRP 18.9* Recent Labs 11/06/22 2117 11/05/22 2154 11/05/22 1649 11/05/22 1337 LACT 1.3 1.0 2.2* 2.3* Recent Labs 11/10/22 0505 11/09/2232111/08/22 0544 BUN 10 11 14 CREAT 0.88 0.90 0.94 CA 8.3* 8.3* 8.5 Most recent labs Sepsis (HCC) POA: Yes Primary hypertension POA: Yes Stage 3a chronic kidney disease (HCC) POA: Yes DDD (degenerative disc disease), lumbar POA: Yes Spinal stenosis of cervical region POA: Yes Spinal stenosis of lumbar region with neurogenic claudication POA: Yes Chronic pain syndrome POA: Yes Cellulitis of right lower leg POA: Yes Urinary retention POA: Yes Nausea AND vomiting POA: Yes Diarrhea POA: Yes Postoperative hypothyroidism POA: Yes HOSPITAL COURSE: This is an 82 year old female, with a PMH of COPD, HTN, Hyperlipidemia, Hypothyroidism, Left Breast Cancer and Chronic Back Pain, who presented to the ED on 11/05/22 with complaints of fever, right leg pain/red, diarrhea and nausea and vomiting. She initially started with a fever and chills 2 days prior to admission. Her diarrhea was constant on the day prior to admission. Her stool was liquid and brown. Her last episode was in the morning prior to admission. Her cough was nonproductive and associated with nausea. She first noted right leg pain and redness on the morning of admission. She also noted difficulty urinating since the morning. She reported malaise and feeling miserable. She lived home alone with her dog. In ED, she was febrile to 100.2 F and HR 96. K 3.6, Cr 1.0, LFTs nl, WBC 11.7, Hgb 11.6, Plts 148. Lactate 2.3 - 2.2 - 1.1. NT ProBNP 6,427. COVID-19, Influenza A/B and RSV tests were negative. XR R Ankle/Foot showed soft tissue swelling prominently overlying the lateral malleolus as well as the foot with no bony erosions. CXR showed mild prominence of the pulmonary vascular interstitial markings bilaterally, slightly increased when compared with the prior exam suggesting interstitial disease. CT of Abdomen/Pelvis showed NAD. Venous US of Right Leg showed no DVT. The patient was given KCl, 1L IV NS, Zofran, Zosyn and IV Vancomycin prior to admission to a medical bed. She required straight cath x1 for 500cc urine retention. Subsequent bladder scans were < 200 cc. UA and CANDS ordered. She was continued on IV Zosyn/Vanco and Stool studies were ordered. Urine and Blood Cultures were negative. On 11/07, significant erythema Right foot and ankle continued. ID consulted and changed antibiotics to IV Ancef. Patient's GI symptoms resolved. By 11/09, cellulitis and swelling were showing good improvement. Principal Problem: Sepsis (HCC) Assessment AND Plan: Presented with fever, tachycardia, WBC 11.7, Lactate 2.3 Reported rigors at home Lactate 2.3 - 2.2 - 1.0 L (more content not included)... [facility] documented as of this encounter (statuses as of 11/17/2022) [facility]12-26-2022 History of Past illness Narrative* Problem Noted Date Resolved Date Nausea & vomiting 11/06/2022 11/11/2022 Diarrhea 11/06/2022 11/11/2022 Sepsis 11/05/2022 11/11/2022 Chronic midline low back pain without sciatica 0 03/26/2018 07/24/2019 Acute pain of right shoulder 11/29/2017 Low back pain radiating to right lower extremity 11/29/2017 07/24/2019 Chronic pain syndrome 09/27/2017 11/28/2018 Trigger finger, acquired 09/26/2017 019 Overview: Added automatically from request for surgery [id number] Colon cancer screening 12/07/2016 7 Chronic midline low back pain without sciatica 1 02/28/2017 Pain of left thumb 05/05/2016 02/28/2017 Pain in left shoulder 10/29/2015 02/28/2017 Bilateral ankle pain 10/01/2015 02/28/2017 Low back pain 08/06/2015 07/24/2019 Pain in right hip 08/06/2015 07/24/2019 Thoracic back pain 08/06/2015 02/28/2017 Cervicalgia 08/06/2015 02/28/2017 Eczematous dermatitis 10/18/2012 02/28/2017 Xerosis cutis 10/18/2012 02/28/2017 Pruritus 10/18/2012 02/28/2017 Excoriation 10/18/2012 02/28/2017 Osteoporosis 07/08/2012 08/09/2012 Chronic pain 06/03/2012 07/24/2019 Overview: Chronic pain management for back injury, neck arthritis- [facility] documented as of this encounter (statuses as of 12/13/2022) [facility]12-26-2022 History of Past illness Narrative* Problem Noted Date Resolved Date Nausea & vomiting 11/06/2022 11/11/2022 Diarrhea 11/06/2022 11/11/2022 Sepsis 11/05/2022 11/11/2022 Chronic midline low back pain without sciatica 0 03/26/2018 07/24/2019 Acute pain of right shoulder 11/29/2017 Low back pain radiating to right lower extremity 11/29/2017 07/24/2019 Chronic pain syndrome 09/27/2017 11/28/2018 Trigger finger, acquired 09/26/2017 019 Overview: Added automatically from request for surgery [id number] Colon cancer screening 12/07/2016 7 Chronic midline low back pain without sciatica 1 02/28/2017 Pain of left thumb 05/05/2016 02/28/2017 Pain in left shoulder 10/29/2015 02/28/2017 Bilateral ankle pain 10/01/2015 02/28/2017 Low back pain 08/06/2015 07/24/2019 Pain in right hip 08/06/2015 07/24/2019 Thoracic back pain 08/06/2015 02/28/2017 Cervicalgia 08/06/2015 02/28/2017 Eczematous dermatitis 10/18/2012 02/28/2017 Xerosis cutis 10/18/2012 02/28/2017 Pruritus 10/18/2012 02/28/2017 Excoriation 10/18/2012 02/28/2017 Osteoporosis 07/08/2012 08/09/2012 Chronic pain 06/03/2012 07/24/2019 [facility]es as of 12/20/2022[facility]12[facility]26[facility] History of Past illness Narrative* Problem Noted Date Resolved Date Nausea & vomiting 11/06/2022 11/11/2022 Diarrhea 11/06/2022 11/11/2022 Sepsis 11/05/2022 11/11/2022 Chronic midline low back pain without sciatica 0 03/26/2018 07/24/2019 Acute pain of right shoulder 11/29/2017 Low back pain radiating to right lower extremity 11/29/2017 07/24/2019 Chronic pain syndrome 09/27/2017 11/28/2018 Trigger finger, acquired 09/26/2017 019 Overview: Added automatically from request for surgery [id number] Colon cancer screening 12/07/2016 7 Chronic midline low back pain without sciatica 1 02/28/2017 Pain of left thumb 05/05/2016 02/28/2017 Pain in left shoulder 10/29/2015 02/28/2017 Bilateral ankle pain 10/01/2015 02/28/2017 Low back pain 08/06/2015 07/24/2019 Pain in right hip 08/06/2015 07/24/2019 Thoracic back pain 08/06/2015 02/28/2017 Cervicalgia 08/06/2015 02/28/2017 Eczematous dermatitis 10/18/2012 02/28/2017 Xerosis cutis 10/18/2012 02/28/2017 Pruritus 10/18/2012 02/28/2017 Excoriation 10/18/2012 02/28/2017 Osteoporosis 07/08/2012 08/09/2012 Chronic pain 06/03/2012 07/24/2019 Overview: Chronic pain management for back injury, neck arthritis- [facility] documented as of this encounter (statuses as of 01/17/2023) [facility]12-[facility] History of Past illness Narrative* Problem Noted Date Resolved Date Nausea & vomiting 11/06/2022 11/11/2022 Diarrhea 11/06/2022 11/11/2022 Sepsis 11/05/2022 11/11/2022 Chronic midline low back pain without sciatica 0 03/26/2018 07/24/2019 Acute pain of right shoulder 11/29/2017 Low back pain radiating to right lower extremity 11/29/2017 07/24/2019 Chronic pain syndrome 09/27/2017 11/28/2018 Trigger finger, acquired 09/26/2017 09/12/2 019 Overview: Added automatically from request for surgery [id number] Colon cancer screening 12/07/2016 7 Chronic midline low back pain without sciatica 1 02/28/2017 Pain of left thumb 05/05/2016 02/28/2017 Pain in left shoulder 10/29/2015 02/28/2017 Bilateral ankle pain 10/01/2015 02/28/2017 Low back pain 08/06/2015 07/24/2019 Pain in right hip 08/06/2015 07/24/2019 Thoracic back pain 08/06/2015 02/28/2017 Cervicalgia 08/06/2015 02/28/2017 Eczematous dermatitis 10/18/2012 02/28/2017 Xerosis cutis 10/18/2012 02/28/2017 Pruritus 10/18/2012 02/28/2017 Excoriation 10/18/2012 02/28/2017 Osteoporosis 07/08/2012 08/09/2012 Chronic pain 06/03/2012 07/24/2019 Overview: Chronic pain management for back injury, neck arthritis- [facility] documented as of this encounter (statuses as of 01/18/2023) [facility]12[facility] History of Past illness Narrative* Problem Noted Date Resolved Date Nausea & vomiting 11/06/2022 11/11/2022 Diarrhea 11/06/2022 11/11/2022 Sepsis 11/05/2022 11/11/2022 Chronic midline low back pain without sciatica 0 03/26/2018 07/24/2019 Acute pain of right shoulder 11/29/2017 Low back pain radiating to right lower extremity 11/29/2017 07/24/2019 Chronic pain syndrome 09/27/2017 11/28/2018 Trigger finger, acquired 09/26/2017 019 Overview: Added automatically from request for surgery [id number] Colon cancer screening 12/07/2016 7 Chronic midline low back pain without sciatica 1 02/28/2017 Pain of left thumb 05/05/2016 02/28/2017 Pain in left shoulder 10/29/2015 02/28/2017 Bilateral ankle pain 10/01/2015 02/28/2017 Low back pain 08/06/2015 07/24/2019 Pain in right hip 08/06/2015 07/24/2019 Thoracic back pain 08/06/2015 02/28/2017 Cervicalgia 08/06/2015 02/28/2017 Eczematous dermatitis 10/18/2012 02/28/2017 Xerosis cutis 10/18/2012 02/28/2017 Pruritus 10/18/2012 02/28/2017 Excoriation 10/18/2012 02/28/2017 Osteoporosis 07/08/2012 08/09/2012 Chronic pain 06/03/2012 07/24/2019 Overview: Chronic pain management for back injury, neck arthritis- [facility] documented as of this encounter (statuses as of 01/29/2023) [facility]12-26-[facility] History of Past illness Narrative* Problem Noted Date Resolved Date Nausea & vomiting 11/06/2022 11/11/2022 Diarrhea 11/06/2022 11/11/2022 Sepsis 11/05/2022 11/11/2022 Chronic midline low back pain without sciatica 0 03/26/2018 07/24/2019 Acute pain of right shoulder 11/29/2017 Low back pain radiating to right lower extremity 11/29/2017 07/24/2019 Chronic pain syndrome 09/27/2017 11/28/2018 Trigger finger, acquired 09/26/2017 019 Overview: Added automatically from request for surgery [id number] Colon cancer screening 12/07/2016 7 Chronic midline low back pain without sciatica 1 02/28/2017 Pain of left thumb 05/05/2016 02/28/2017 Pain in left shoulder 10/29/2015 02/28/2017 Bilateral ankle pain 10/01/2015 02/28/2017 Low back pain 08/06/2015 07/24/2019 Pain in right hip 08/06/2015 07/24/2019 Thoracic back pain 08/06/2015 02/28/2017 Cervicalgia 08/06/2015 02/28/2017 Eczematous dermatitis 10/18/2012 02/28/2017 Xerosis cutis 10/18/2012 02/28/2017 Pruritus 10/18/2012 02/28/2017 Excoriation 10/18/2012 02/28/2017 Osteoporosis 07/08/2012 08/09/2012 Chronic pain 06/03/2012 07/24/2019 Overview: Chronic pain management for back injury, neck arthritis- [facility] documented as of this encounter (statuses as of 02/15/2023) [facility] History of Past illness Narrative* Problem Noted Date Resolved Date Nausea & vomiting 11/06/2022 11/11/2022 Diarrhea 11/06/2022 11/11/2022 Sepsis 11/05/2022 11/11/2022 Chronic midline low back pain without sciatica 0 03/26/2018 07/24/2019 Acute pain of right shoulder 11/29/2017 Low back pain radiating to right lower extremity 11/29/2017 07/24/2019 Chronic pain syndrome 09/27/2017 11/28/2018 Trigger finger, acquired 09/26/2017 019 Overview: Added automatically from request for surgery [id number] Colon cancer screening 12/07/2016 7 Chronic midline low back pain without sciatica 1 02/28/2017 Pain of left thumb 05/05/2016 02/28/2017 Pain in left shoulder 10/29/2015 02/28/2017 Bilateral ankle pain 10/01/2015 02/28/2017 Low back pain 08/06/2015 07/24/2019 Pain in right hip 08/06/2015 07/24/2019 Thoracic back pain 08/06/2015 02/28/2017 Cervicalgia 08/06/2015 02/28/2017 Eczematous dermatitis 10/18/2012 02/28/2017 Xerosis cutis 10/18/2012 02/28/2017 Pruritus 10/18/2012 02/28/2017 Excoriation 10/18/2012 02/28/2017 Osteoporosis 07/08/2012 08/09/2012 Chronic pain 06/03/2012 07/24/2019 Overview: [facility] (statuses as of 02/15/2023) [facility]12[facility] History of Past illness Narrative* Problem Noted Date Resolved Date Nausea & vomiting 11/06/2022 11/11/2022 Diarrhea 11/06/2022 11/11/2022 Sepsis 11/05/2022 11/11/2022 Chronic midline low back pain without sciatica 0 03/26/2018 07/24/2019 Acute pain of right shoulder 11/29/2017 Low back pain radiating to right lower extremity 11/29/2017 07/24/2019 Chronic pain syndrome 09/27/2017 11/28/2018 Trigger finger, acquired 09/26/2017 019 Overview: Added automatically from request for surgery [id number] Colon cancer screening 12/07/2016 7 Chronic midline low back pain without sciatica 1 02/28/2017 Pain of left thumb 05/05/2016 02/28/2017 Pain in left shoulder 10/29/2015 02/28/2017 Bilateral ankle pain 10/01/2015 02/28/2017 Low back pain 08/06/2015 07/24/2019 Pain in right hip 08/06/2015 07/24/2019 Thoracic back pain 08/06/2015 02/28/2017 Cervicalgia 08/06/2015 02/28/2017 Eczematous dermatitis 10/18/2012 02/28/2017 Xerosis cutis 10/18/2012 02/28/2017 Pruritus 10/18/2012 02/28/2017 Excoriation 10/18/2012 02/28/2017 Osteoporosis 07/08/2012 08/09/2012 Chronic pain 06/03/2012 07/24/2019 Overview: Chronic pain management for back injury, neck arthritis- [facility] documented as of this encounter (statuses as of 02/16/2023) [facility] History of Past illness Narrative* Problem Noted Date Resolved Date Nausea & vomiting 11/06/2022 11/11/2022 Diarrhea 11/06/2022 11/11/2022 Sepsis 11/05/2022 11/11/2022 Chronic midline low back pain without sciatica 0 03/26/2018 07/24/2019 Acute pain of right shoulder 11/29/2017 Low back pain radiating to right lower extremity 11/29/2017 07/24/2019 Chronic pain syndrome 09/27/2017 11/28/2018 Trigger finger, acquired 09/26/2017 019 Overview: Added automatically from request for surgery [id number] Colon cancer screening 12/07/2016 7 Chronic midline low back pain without sciatica 1 02/28/2017 Pain of left thumb 05/05/2016 02/28/2017 Pain in left shoulder 10/29/2015 02/28/2017 Bilateral ankle pain 10/01/2015 02/28/2017 Low back pain 08/06/2015 07/24/2019 Pain in right hip 08/06/2015 07/24/2019 Thoracic back pain 08/06/2015 02/28/2017 Cervicalgia 08/06/2015 02/28/2017 Eczematous dermatitis 10/18/2012 02/28/2017 Xerosis cutis 10/18/2012 02/28/2017 Pruritus 10/18/2012 02/28/2017 Excoriation 10/18/2012 02/28/2017 Osteoporosis 07/08/2012 08/09/2012 Chronic pain 06/03/2012 07/24/2019 Overview: Chronic pain management for back injury, neck arthritis- [facility] documented as of this encounter (statuses as of 02/16/2023) [facility] History of Past illness Narrative* Problem Noted Date Resolved Date Nausea & vomiting 11/06/2022 11/11/2022 Diarrhea 11/06/2022 11/11/2022 Sepsis 11/05/2022 11/11/2022 Chronic midline low back pain without sciatica 0 03/26/2018 07/24/2019 Acute pain of right shoulder 11/29/2017 Low back pain radiating to right lower extremity 11/29/2017 07/24/2019 Chronic pain syndrome 09/27/2017 11/28/2018 Trigger finger, acquired 09/26/2017 019 Overview: Added automatically from request for surgery [id number] Colon cancer screening 12/07/2016 7 Chronic midline low back pain without sciatica 1 02/28/2017 Pain of left thumb 05/05/2016 02/28/2017 Pain in left shoulder 10/29/2015 02/28/2017 Bilateral ankle pain 10/01/2015 02/28/2017 Low back pain 08/06/2015 07/24/2019 Pain in right hip 08/06/2015 07/24/2019 Thoracic back pain 08/06/2015 02/28/2017 Cervicalgia 08/06/2015 02/28/2017 Eczematous dermatitis 10/18/2012 02/28/2017 Xerosis cutis 10/18/2012 02/28/2017 Pruritus 10/18/2012 02/28/2017 Excoriation 10/18/2012 02/28/2017 Osteoporosis 07/08/2012 08/09/2012 Chronic pain 06/03/2012 07/24/2019 Overview: Chronic pain management for back injury, neck arthritis- [facility] documented as of this encounter (statuses as of 02/16/2023) [facility] History of Past illness Narrative* Problem Noted Date Resolved Date Nausea & vomiting 11/06/2022 11/11/2022 Diarrhea 11/06/2022 11/11/2022 Sepsis 11/05/2022 11/11/2022 Chronic midline low back pain without sciatica 0 03/26/2018 07/24/2019 Acute pain of right shoulder 11/29/2017 Low back pain radiating to right lower extremity 11/29/2017 07/24/2019 Chronic pain syndrome 09/27/2017 11/28/2018 Trigger finger, acquired 09/26/2017 019 Overview: Added automatically from request for surgery [id number] Colon cancer screening 12/07/2016 7 Chronic midline low back pain without sciatica 1 02/28/2017 Pain of left thumb 05/05/2016 02/28/2017 Pain in left shoulder 10/29/2015 02/28/2017 Bilateral ankle pain 10/01/2015 02/28/2017 Low back pain 08/06/2015 07/24/2019 Pain in right hip 08/06/2015 07/24/2019 Thoracic back pain 08/06/2015 02/28/2017 Cervicalgia 08/06/2015 02/28/2017 Eczematous dermatitis 10/18/2012 02/28/2017 Xerosis cutis 10/18/2012 02/28/2017 Pruritus 10/18/2012 02/28/2017 Excoriation 10/18/2012 02/28/2017 Osteoporosis 07/08/2012 08/09/2012 Chronic pain 06/03/2012 07/24/2019 Overview: Chronic pain management for back injury, neck arthritis- [facility] documented as of this encounter (statuses as of 02/27/2023) [facility] History of Past illness Narrative* Problem Noted Date Resolved Date Nausea & vomiting 11/06/2022 11/11/2022 Diarrhea 11/06/2022 11/11/2022 Sepsis 11/05/2022 11/11/2022 Chronic midline low back pain without sciatica 0 03/26/2018 07/24/2019 Acute pain of right shoulder 11/29/2017 Low back pain radiating to right lower extremity 11/29/2017 07/24/2019 Chronic pain syndrome 09/27/2017 11/28/2018 Trigger finger, acquired 09/26/2017 019 Overview: Added automatically from request for surgery [id number] Colon cancer screening 12/07/2016 7 Chronic midline low back pain without sciatica 1 02/28/2017 Pain of left thumb 05/05/2016 02/28/2017 Pain in left shoulder 10/29/2015 02/28/2017 Bilateral ankle pain 10/01/2015 02/28/2017 Low back pain 08/06/2015 07/24/2019 Pain in right hip 08/06/2015 07/24/2019 Thoracic back pain 08/06/2015 02/28/2017 Cervicalgia 08/06/2015 02/28/2017 Eczematous dermatitis 10/18/2012 02/28/2017 Xerosis cutis 10/18/2012 02/28/2017 Pruritus 10/18/2012 02/28/2017 Excoriation 10/18/2012 02/28/2017 Osteoporosis 07/08/2012 08/09/2012 Chronic pain 06/03/2012 07/24/2019 Overview: Chronic pain management for back injury, neck arthritis- [facility] documented as of this encounter (statuses as of 03/01/2023) [facility] History of Past illness Narrative* Problem Noted Date Resolved Date Nausea & vomiting 11/06/2022 11/11/2022 Diarrhea 11/06/2022 11/11/2022 Sepsis 11/05/2022 11/11/2022 Chronic midline low back pain without sciatica 0 03/26/2018 07/24/2019 Acute pain of right shoulder 11/29/2017 Low back pain radiating to right lower extremity 11/29/2017 07/24/2019 Chronic pain syndrome 09/27/2017 11/28/2018 Trigger finger, acquired 09/26/2017 019 Overview: Added automatically from request for surgery [id number] Colon cancer screening 12/07/2016 7 Chronic midline low back pain without sciatica 1 02/28/2017 Pain of left thumb 05/05/2016 02/28/2017 Pain in left shoulder 10/29/2015 02/28/2017 Bilateral ankle pain 10/01/2015 02/28/2017 Low back pain 08/06/2015 07/24/2019 Pain in right hip 08/06/2015 07/24/2019 Thoracic back pain 08/06/2015 02/28/2017 Cervicalgia 08/06/2015 02/28/2017 Eczematous dermatitis 10/18/2012 02/28/2017 Xerosis cutis 10/18/2012 02/28/2017 Pruritus 10/18/2012 02/28/2017 Excoriation 10/18/2012 02/28/2017 Osteoporosis 07/08/2012 08/09/2012 Chronic pain 06/03/2012 07/24/2019 Overview: Chronic pain management for back injury, neck arthritis- [facility] documented as of this encounter (statuses as of 03/02/2023) [facility] History of Past illness Narrative* Problem Noted Date Resolved Date Nausea & vomiting 11/06/2022 11/11/2022 Diarrhea 11/06/2022 11/11/2022 Sepsis 11/05/2022 11/11/2022 Chronic midline low back pain without sciatica 0 03/26/2018 07/24/2019 Acute pain of right shoulder 11/29/2017 Low back pain radiating to right lower extremity 11/29/2017 07/24/2019 Chronic pain syndrome 09/27/2017 11/28/2018 Trigger finger, acquired 09/26/2017 019 Overview: Added automatically from request for surgery [id number] Colon cancer screening 12/07/2016 7 Chronic midline low back pain without sciatica 1 02/28/2017 Pain of left thumb 05/05/2016 02/28/2017 Pain in left shoulder 10/29/2015 02/28/2017 Bilateral ankle pain 10/01/2015 02/28/2017 Low back pain 08/06/2015 07/24/2019 Pain in right hip 08/06/2015 07/24/2019 Thoracic back pain 08/06/2015 02/28/2017 Cervicalgia 08/06/2015 02/28/2017 Eczematous dermatitis 10/18/2012 02/28/2017 Xerosis cutis 10/18/2012 02/28/2017 Pruritus 10/18/2012 02/28/2017 Excoriation 10/18/2012 02/28/2017 Osteoporosis 07/08/2012 08/09/2012 Chronic pain 06/03/2012 07/24/2019 Overview: Chronic pain management for back injury, neck arthritis- [facility] documented as of this encounter (statuses as of 03/05/2023) [facility] History of Past illness Narrative* Problem Noted Date Resolved Date Nausea & vomiting 11/06/2022 11/11/2022 Diarrhea 11/06/2022 11/11/2022 Sepsis 11/05/2022 11/11/2022 Chronic midline low back pain without sciatica 0 03/26/2018 07/24/2019 Acute pain of right shoulder 11/29/2017 Low back pain radiating to right lower extremity 11/29/2017 07/24/2019 Chronic pain syndrome 09/27/2017 11/28/2018 Trigger finger, acquired 09/26/2017 019 Overview: Added automatically from request for surgery [id number] Colon cancer screening 12/07/2016 7 Chronic midline low back pain without sciatica 1 02/28/2017 Pain of left thumb 05/05/2016 02/28/2017 Pain in left shoulder 10/29/2015 02/28/2017 Bilateral ankle pain 10/01/2015 02/28/2017 Low back pain 08/06/2015 07/24/2019 Pain in right hip 08/06/2015 07/24/2019 Thoracic back pain 08/06/2015 02/28/2017 Cervicalgia 08/06/2015 02/28/2017 Eczematous dermatitis 10/18/2012 02/28/2017 Xerosis cutis 10/18/2012 02/28/2017 Pruritus 10/18/2012 02/28/2017 Excoriation 10/18/2012 02/28/2017 Osteoporosis 07/08/2012 08/09/2012 Chronic pain 06/03/2012 07/24/2019 Overview: Chronic pain management for back injury, neck arthritis- [facility] documented as of this encounter (statuses as of 03/13/2023) [facility] History of Past illness Narrative* Problem Noted Date Resolved Date Nausea & vomiting 11/06/2022 11/11/2022 Diarrhea 11/06/2022 11/11/2022 Sepsis 11/05/2022 11/11/2022 Chronic midline low back pain without sciatica 0 03/26/2018 07/24/2019 Acute pain of right shoulder 11/29/2017 Low back pain radiating to right lower extremity 11/29/2017 07/24/2019 Chronic pain syndrome 09/27/2017 11/28/2018 Trigger finger, acquired 09/26/2017 019 Overview: Added automatically from request for surgery [id number] Colon cancer screening 12/07/2016 7 Chronic midline low back pain without sciatica 1 02/28/2017 Pain of left thumb 05/05/2016 02/28/2017 Pain in left shoulder 10/29/2015 02/28/2017 Bilateral ankle pain 10/01/2015 02/28/2017 Low back pain 08/06/2015 07/24/2019 Pain in right hip 08/06/2015 07/24/2019 Thoracic back pain 08/06/2015 02/28/2017 Cervicalgia 08/06/2015 02/28/2017 Eczematous dermatitis 10/18/2012 02/28/2017 Xerosis cutis 10/18/2012 02/28/2017 Pruritus 10/18/2012 02/28/2017 Excoriation 10/18/2012 02/28/2017 Osteoporosis 07/08/2012 08/09/2012 Chronic pain 06/03/2012 07/24/2019 Overview: Chronic pain management for back injury, neck arthritis- [facility] documented as of this encounter (statuses as of 03/19/2023) [facility]12-26-2022 History of Past illness Narrative* Problem Noted Date Resolved Date Nausea & vomiting 11/06/2022 11/11/2022 Diarrhea 11/06/2022 11/11/2022 Sepsis 11/05/2022 11/11/2022 Chronic midline low back pain without sciatica 0 03/26/2018 07/24/2019 Acute pain of right shoulder 11/29/2017 Low back pain radiating to right lower extremity 11/29/2017 07/24/2019 Chronic pain syndrome 09/27/2017 11/28/2018 Trigger finger, acquired 09/26/2017 019 Overview: Added automatically from request for surgery [id number] Colon cancer screening 12/07/2016 7 Chronic midline low back pain without sciatica 1 02/28/2017 Pain of left thumb 05/05/2016 02/28/2017 Pain in left shoulder 10/29/2015 02/28/2017 Bilateral ankle pain 10/01/2015 02/28/2017 Low back pain 08/06/2015 07/24/2019 Pain in right hip 08/06/2015 07/24/2019 Thoracic back pain 08/06/2015 02/28/2017 Cervicalgia 08/06/2015 02/28/2017 Eczematous dermatitis 10/18/2012 02/28/2017 Xerosis cutis 10/18/2012 02/28/2017 Pruritus 10/18/2012 02/28/2017 Excoriation 10/18/2012 02/28/2017 Osteoporosis 07/08/2012 08/09/2012 Chronic pain 06/03/2012 07/24/2019 Overview: Chronic pain management for back injury, neck arthritis- [facility] documented as of this encounter (statuses as of 03/23/2023) [facility]12-26-[facility] History of Past illness Narrative* Problem Noted Date Resolved Date Nausea & vomiting 11/06/2022 11/11/2022 Diarrhea 11/06/2022 11/11/2022 Sepsis 11/05/2022 11/11/2022 Chronic midline low back pain without sciatica 0 03/26/2018 07/24/2019 Acute pain of right shoulder 11/29/2017 Low back pain radiating to right lower extremity 11/29/2017 07/24/2019 Chronic pain syndrome 09/27/2017 11/28/2018 Trigger finger, acquired 09/26/2017 019 Overview: Added automatically from request for surgery [id number] Colon cancer screening 12/07/2016 7 Chronic midline low back pain without sciatica 1 02/28/2017 Pain of left thumb 05/05/2016 02/28/2017 Pain in left shoulder 10/29/2015 02/28/2017 Bilateral ankle pain 10/01/2015 02/28/2017 Low back pain 08/06/2015 07/24/2019 Pain in right hip 08/06/2015 07/24/2019 Thoracic back pain 08/06/2015 02/28/2017 Cervicalgia 08/06/2015 02/28/2017 Eczematous dermatitis 10/18/2012 02/28/2017 Xerosis cutis 10/18/2012 02/28/2017 Pruritus 10/18/2012 02/28/2017 Excoriation 10/18/2012 02/28/2017 Osteoporosis 07/08/2012 08/09/2012 Chronic pain 06/03/2012 07/24/2019 Overview: [facility]es as [facility]16[facility]2023[facility]12-26-[facility] History of Past illness Narrative* Problem Noted Date Resolved Date Nausea & vomiting 11/06/2022 11/11/2022 Diarrhea 11/06/2022 11/11/2022 Sepsis 11/05/2022 11/11/2022 Chronic midline low back pain without sciatica 0 03/26/2018 07/24/2019 Acute pain of right shoulder 11/29/2017 Low back pain radiating to right lower extremity 11/29/2017 07/24/2019 Chronic pain syndrome 09/27/2017 11/28/2018 Trigger finger, acquired 09/26/2017 019 Overview: Added automatically from request for surgery [id number] Colon cancer screening 12/07/2016 7 Chronic midline low back pain without sciatica 1 02/28/2017 Pain of left thumb 05/05/2016 02/28/2017 Pain in left shoulder 10/29/2015 02/28/2017 Bilateral ankle pain 10/01/2015 02/28/2017 Low back pain 08/06/2015 07/24/2019 Pain in right hip 08/06/2015 07/24/2019 Thoracic back pain 08/06/2015 02/28/2017 Cervicalgia 08/06/2015 02/28/2017 Eczematous dermatitis 10/18/2012 02/28/2017 Xerosis cutis 10/18/2012 02/28/2017 Pruritus 10/18/2012 02/28/2017 Excoriation 10/18/2012 02/28/2017 Osteoporosis 07/08/2012 08/09/2012 Chronic pain 06/03/2012 07/24/2019 Overview: [facility]statuses as of 05/03/2023) [facility]12-26-[facility] History of Past illness Narrative* Problem Noted Date Resolved Date Nausea & vomiting 11/06/2022 11/11/2022 Diarrhea 11/06/2022 11/11/2022 Sepsis 11/05/2022 11/11/2022 Chronic midline low back pain without sciatica 0 03/26/2018 07/24/2019 Acute pain of right shoulder 11/29/2017 Low back pain radiating to right lower extremity 11/29/2017 07/24/2019 Chronic pain syndrome 09/27/2017 11/28/2018 Trigger finger, acquired 09/26/2017 019 Overview: Added automatically from request for surgery [id number] Colon cancer screening 12/07/2016 7 Chronic midline low back pain without sciatica 1 02/28/2017 Pain of left thumb 05/05/2016 02/28/2017 Pain in left shoulder 10/29/2015 02/28/2017 Bilateral ankle pain 10/01/2015 02/28/2017 Low back pain 08/06/2015 07/24/2019 Pain in right hip 08/06/2015 07/24/2019 Thoracic back pain 08/06/2015 02/28/2017 Cervicalgia 08/06/2015 02/28/2017 Eczematous dermatitis 10/18/2012 02/28/2017 Xerosis cutis 10/18/2012 02/28/2017 Pruritus 10/18/2012 02/28/2017 Excoriation 10/18/2012 02/28/2017 Osteoporosis 07/08/2012 08/09/2012 Chronic pain 06/03/2012 07/24/2019 Overview: Chronic pain management for back injury, neck arthritis- [facility] documented as of this encounter (statuses as of 05/04/2023) [facility]12-[facility] History of Past illness Narrative* Problem Noted Date Resolved Date Nausea & vomiting 11/06/2022 11/11/2022 Diarrhea 11/06/2022 11/11/2022 Sepsis 11/05/2022 11/11/2022 Chronic midline low back pain without sciatica 0 03/26/2018 07/24/2019 Acute pain of right shoulder 11/29/2017 Low back pain radiating to right lower extremity 11/29/2017 07/24/2019 Chronic pain syndrome 09/27/2017 11/28/2018 Trigger finger, acquired 09/26/2017 019 Overview: Added automatically from request for surgery [id number] Colon cancer screening 12/07/2016 7 Chronic midline low back pain without sciatica 1 02/28/2017 Pain of left thumb 05/05/2016 02/28/2017 Pain in left shoulder 10/29/2015 02/28/2017 Bilateral ankle pain 10/01/2015 02/28/2017 Low back pain 08/06/2015 07/24/2019 Pain in right hip 08/06/2015 07/24/2019 Thoracic back pain 08/06/2015 02/28/2017 Cervicalgia 08/06/2015 02/28/2017 Eczematous dermatitis 10/18/2012 02/28/2017 Xerosis cutis 10/18/2012 02/28/2017 Pruritus 10/18/2012 02/28/2017 Excoriation 10/18/2012 02/28/2017 Osteoporosis 07/08/2012 08/09/2012 Chronic pain 06/03/2012 07/24/2019 Overview: Chronic pain management for back injury, neck arthritis- [facility] documented as of this encounter (statuses as of 05/08/2023) [facility]12-26-[facility] History of Past illness Narrative* Problem Noted Date Resolved Date Nausea & vomiting 11/06/2022 11/11/2022 Diarrhea 11/06/2022 11/11/2022 Sepsis 11/05/2022 11/11/2022 Chronic midline low back pain without sciatica 0 03/26/2018 07/24/2019 Acute pain of right shoulder 11/29/2017 Low back pain radiating to right lower extremity 11/29/2017 07/24/2019 Chronic pain syndrome 09/27/2017 11/28/2018 Trigger finger, acquired 09/26/2017 019 Overview: Added automatically from request for surgery [id number] Colon cancer screening 12/07/2016 7 Chronic midline low back pain without sciatica 1 02/28/2017 Pain of left thumb 05/05/2016 02/28/2017 Pain in left shoulder 10/29/2015 02/28/2017 Bilateral ankle pain 10/01/2015 02/28/2017 Low back pain 08/06/2015 07/24/2019 Pain in right hip 08/06/2015 07/24/2019 Thoracic back pain 08/06/2015 02/28/2017 Cervicalgia 08/06/2015 02/28/2017 Eczematous dermatitis 10/18/2012 02/28/2017 Xerosis cutis 10/18/2012 02/28/2017 Pruritus 10/18/2012 02/28/2017 Excoriation 10/18/2012 02/28/2017 Osteoporosis 07/08/2012 08/09/2012 Chronic pain 06/03/2012 07/24/2019 Overview: Chronic pain management for back injury, neck arthritis- [facility] documented as of this encounter (statuses as of 05/09/2023) [facility]12[facility] History of Past illness Narrative* Problem Noted Date Resolved Date Nausea & vomiting 11/06/2022 11/11/2022 Diarrhea 11/06/2022 11/11/2022 Sepsis 11/05/2022 11/11/2022 Chronic midline low back pain without sciatica 0 03/26/2018 07/24/2019 Acute pain of right shoulder 11/29/2017 Low back pain radiating to right lower extremity 11/29/2017 07/24/2019 Chronic pain syndrome 09/27/2017 11/28/2018 Trigger finger, acquired 09/26/2017 019 Overview: Added automatically from request for surgery [id number] Colon cancer screening 12/07/2016 7 Chronic midline low back pain without sciatica 1 02/28/2017 Pain of left thumb 05/05/2016 02/28/2017 Pain in left shoulder 10/29/2015 02/28/2017 Bilateral ankle pain 10/01/2015 02/28/2017 Low back pain 08/06/2015 07/24/2019 Pain in right hip 08/06/2015 07/24/2019 Thoracic back pain 08/06/2015 02/28/2017 Cervicalgia 08/06/2015 02/28/2017 Eczematous dermatitis 10/18/2012 02/28/2017 Xerosis cutis 10/18/2012 02/28/2017 Pruritus 10/18/2012 02/28/2017 Excoriation 10/18/2012 02/28/2017 Osteoporosis 07/08/2012 08/09/2012 Chronic pain 06/03/2012 07/24/2019 Overview: [facility] (statuses as of 05/09/2023) [facility]12[facility] History of Past illness Narrative* Problem Noted Date Diagnosed Date Resolved Date Nausea & vomiting 11/06/2022 11/11/2022 Diarrhea 11/06/2022 11/11/2022 Sepsis 11/05/2022 11/11/2022 Chronic midline low back marcial n without sciatica 03/26/2018 07/24/2019 Acute pain of right shoulder 11/29/2017 11/28/2018 Low back pain radiating to r ight lower extremity 11/29/2017 07/24/2019 Chronic pain syndrome 09/27/20172018 Trigger finger, acquired 09/26/201710/2019 Overview: Added automatically from request for surgery [id number] Colon cancer screening 12/07/201612/07 Chronic midline low back marcial n without sciatica 08/23/2016 02/28/2017 Pain of left thumb 05/05/2016 7 Pain in left shoulder 10/29/20152016 Bilateral ankle pain 10/01/2015 017 Low back pain 08/06/2015 07/24/2019 Pain in right hip 08/06/2015 07/24/2019 Thoracic back pain 08/06/2015 7 Cervicalgia 08/06/2015 02/28/2017 Eczematous dermatitis 10/18/20122016 Xerosis cutis 10/18/2012 02/28/2017 Pruritus 10/18/2012 02/28/2017 Excoriation 10/18/2012 02/28/2017 Osteoporosis 07/08/2012 08/09/2012 Chronic pain 06/03/2012 07/24/2019 Overview: Chronic pain management for back injury, neck arthritis- [facility] documented as of this encounter (statuses as of 05/22/2023) [facility]12[facility] History of Past illness Narrative* Problem Noted Date Diagnosed Date Resolved Date Nausea & vomiting 11/06/2022 11/11/2022 Diarrhea 11/06/2022 11/11/2022 Sepsis 11/05/2022 11/11/2022 Chronic midline low back marcial n without sciatica 03/26/2018 07/24/2019 Acute pain of right shoulder 11/29/2017 11/28/2018 Low back pain radiating to r ight lower extremity 11/29/2017 07/24/2019 Chronic pain syndrome 09/27/20172018 Trigger finger, acquired 09/26/201710/2019 Overview: Added automatically from request for surgery [id number] Colon cancer screening 12/07/201612/07 Chronic midline low back marcial n without sciatica 08/23/2016 02/28/2017 Pain of left thumb 05/05/2016 7 Pain in left shoulder 10/29/20152016 Bilateral ankle pain 10/01/2015 017 Low back pain 08/06/2015 07/24/2019 Pain in right hip 08/06/2015 07/24/2019 Thoracic back pain 08/06/2015 7 Cervicalgia 08/06/2015 02/28/2017 Eczematous dermatitis 10/18/20122016 Xerosis cutis 10/18/2012 02/28/2017 Pruritus 10/18/2012 02/28/2017 Excoriation 10/18/2012 02/28/2017 Osteoporosis 07/08/2012 08/09/2012 Chronic pain 06/03/2012 07/24/2019 Overview: Chronic pain management for back injury, neck arthritis- [facility] documented as of this encounter (statuses as of 05/23/2023) [facility]12[facility] History of Past illness Narrative* Problem Noted Date Diagnosed Date Resolved Date Nausea & vomiting 11/06/2022 11/11/2022 Diarrhea 11/06/2022 11/11/2022 Sepsis 11/05/2022 11/11/2022 Chronic midline low back marcial n without sciatica 03/26/2018 07/24/2019 Acute pain of right shoulder 11/29/2017 11/28/2018 Low back pain radiating to r ight lower extremity 11/29/2017 07/24/2019 Chronic pain syndrome 09/27/20172018 Trigger finger, acquired 09/26/201710/2019 Overview: Added automatically from request for surgery [id number] Colon cancer screening 12/07/201612/07 Chronic midline low back marcial n without sciatica 08/23/2016 02/28/2017 Pain of left thumb 05/05/2016 7 Pain in left shoulder 10/29/20152016 Bilateral ankle pain 10/01/2015 017 Low back pain 08/06/2015 07/24/2019 Pain in right hip 08/06/2015 07/24/2019 Thoracic back pain 08/06/2015 7 Cervicalgia 08/06/2015 02/28/2017 Eczematous dermatitis 10/18/20122016 Xerosis cutis 10/18/2012 02/28/2017 Pruritus 10/18/2012 02/28/2017 Excoriation 10/18/2012 02/28/2017 Osteoporosis 07/08/2012 08/09/2012 Chronic pain 06/03/2012 07/24/2019 Overview: Chronic pain management for back injury, neck arthritis- [facility] documented as of this encounter (statuses as of 05/29/2023) [facility]12-[facility] History of Past illness Narrative* Problem Noted Date Diagnosed Date Resolved Date Nausea & vomiting 11/06/2022 11/11/2022 Diarrhea 11/06/2022 11/11/2022 Sepsis 11/05/2022 11/11/2022 Chronic midline low back marcial n without sciatica 03/26/2018 07/24/2019 Acute pain of right shoulder 11/29/2017 11/28/2018 Low back pain radiating to r ight lower extremity 11/29/2017 07/24/2019 Chronic pain syndrome 09/27/20172018 Trigger finger, acquired 09/26/201710/2019 Overview: Added automatically from request for surgery [id number] Colon cancer screening 12/07/201612/07 Chronic midline low back marcial n without sciatica 08/23/2016 02/28/2017 Pain of left thumb 05/05/2016 7 Pain in left shoulder 10/29/20152016 Bilateral ankle pain 10/01/2015 017 Low back pain 08/06/2015 07/24/2019 Pain in right hip 08/06/2015 07/24/2019 Thoracic back pain 08/06/2015 7 Cervicalgia 08/06/2015 02/28/2017 Eczematous dermatitis 10/18/20122016 Xerosis cutis 10/18/2012 02/28/2017 Pruritus 10/18/2012 02/28/2017 Excoriation 10/18/2012 02/28/2017 Osteoporosis 07/08/2012 08/09/2012 Chronic pain 06/03/2012 07/24/2019 Overview: Chronic pain management for back injury, neck arthritis- [facility] documented as of this encounter (statuses as of 05/29/2023) [facility]12[facility] History of Past illness Narrative* Problem Noted Date Diagnosed Date Resolved Date Nausea & vomiting 11/06/2022 11/11/2022 Diarrhea 11/06/2022 11/11/2022 Sepsis 11/05/2022 11/11/2022 Chronic midline low back marcial n without sciatica 03/26/2018 07/24/2019 Acute pain of right shoulder 11/29/2017 11/28/2018 Low back pain radiating to r ight lower extremity 11/29/2017 07/24/2019 Chronic pain syndrome 09/27/20172018 Trigger finger, acquired 09/26/201710/2019 Overview: Added automatically from request for surgery [id number] Colon cancer screening 12/07/201612/07 Chronic midline low back marcial n without sciatica 08/23/2016 02/28/2017 Pain of left thumb 05/05/2016 7 Pain in left shoulder 10/29/20152016 Bilateral ankle pain 10/01/2015 017 Low back pain 08/06/2015 07/24/2019 Pain in right hip 08/06/2015 07/24/2019 Thoracic back pain 08/06/2015 7 Cervicalgia 08/06/2015 02/28/2017 Eczematous dermatitis 10/18/20122016 Xerosis cutis 10/18/2012 02/28/2017 Pruritus 10/18/2012 02/28/2017 Excoriation 10/18/2012 02/28/2017 Osteoporosis 07/08/2012 08/09/2012 Chronic pain 06/03/2012 07/24/2019 Overview: Chronic pain management for back injury, neck arthritis- [facility] documented as of this encounter (statuses as of 06/26/2023) [facility] History of Past illness Narrative* Problem Noted Date Diagnosed Date Resolved Date Nausea & vomiting 11/06/2022 11/11/2022 Diarrhea 11/06/2022 11/11/2022 Sepsis 11/05/2022 11/11/2022 Chronic midline low back marcial n without sciatica 03/26/2018 07/24/2019 Acute pain of right shoulder 11/29/2017 11/28/2018 Low back pain radiating to r ight lower extremity 11/29/2017 07/24/2019 Chronic pain syndrome 09/27/20172018 Trigger finger, acquired 09/26/201710/2019 Overview: Added automatically from request for surgery [id number] Colon cancer screening 12/07/201612/07 Chronic midline low back marcial n without sciatica 08/23/2016 02/28/2017 Pain of left thumb 05/05/2016 7 Pain in left shoulder 10/29/20152016 Bilateral ankle pain 10/01/2015 017 Low back pain 08/06/2015 07/24/2019 Pain in right hip 08/06/2015 07/24/2019 Thoracic back pain 08/06/2015 7 Cervicalgia 08/06/2015 02/28/2017 Eczematous dermatitis 10/18/20122016 Xerosis cutis 10/18/2012 02/28/2017 Pruritus 10/18/2012 02/28/2017 Excoriation 10/18/2012 02/28/2017 Osteoporosis 07/08/2012 08/09/2012 Chronic pain 06/03/2012 07/24/2019 [facility]: [facility]statuses as of 06/27/2023) [facility] of Past illness Narrative* Problem Noted Date Diagnosed Date Resolved Date Nausea & vomiting 11/06/2022 11/11/2022 Diarrhea 11/06/2022 11/11/2022 Sepsis 11/05/2022 11/11/2022 Chronic midline low back marcial n without sciatica 03/26/2018 07/24/2019 Acute pain of right shoulder 11/29/2017 11/28/2018 Low back pain radiating to r ight lower extremity 11/29/2017 07/24/2019 Chronic pain syndrome 09/27/20172018 Trigger finger, acquired 09/26/201710/2019 Overview: Added automatically from request for surgery [id number] Colon cancer screening 12/07/201612/07 Chronic midline low back marcial n without sciatica 08/23/2016 02/28/2017 Pain of left thumb 05/05/2016 7 Pain in left shoulder 10/29/20152016 Bilateral ankle pain 10/01/2015 017 Low back pain 08/06/2015 07/24/2019 Pain in right hip 08/06/2015 07/24/2019 Thoracic back pain 08/06/2015 7 Cervicalgia 08/06/2015 02/28/2017 Eczematous dermatitis 10/18/20122016 Xerosis cutis 10/18/2012 02/28/2017 Pruritus 10/18/2012 02/28/2017 Excoriation 10/18/2012 02/28/2017 Osteoporosis 07/08/2012 08/09/2012 Chronic pain 06/03/2012 07/24/2019 Overview: Chronic pain management for back injury, neck arthritis- [facility] documented as of this encounter (statuses as of 07/04/2023) [facility] of Past illness Narrative* Problem Noted Date Diagnosed Date Resolved Date Nausea & vomiting 11/06/2022 11/11/2022 Diarrhea 11/06/2022 11/11/2022 Sepsis 11/05/2022 11/11/2022 Chronic midline low back marcial n without sciatica 03/26/2018 07/24/2019 Acute pain of right shoulder 11/29/2017 11/28/2018 Low back pain radiating to r ight lower extremity 11/29/2017 07/24/2019 Chronic pain syndrome 09/27/20172018 Trigger finger, acquired 09/26/201710/2019 Overview: Added automatically from request for surgery [id number] Colon cancer screening 12/07/201612/07 Chronic midline low back marcial n without sciatica 08/23/2016 02/28/2017 Pain of left thumb 05/05/2016 7 Pain in left shoulder 10/29/20152016 Bilateral ankle pain 10/01/2015 017 Low back pain 08/06/2015 07/24/2019 Pain in right hip 08/06/2015 07/24/2019 Thoracic back pain 08/06/2015 7 Cervicalgia 08/06/2015 02/28/2017 Eczematous dermatitis 10/18/20122016 Xerosis cutis 10/18/2012 02/28/2017 Pruritus 10/18/2012 02/28/2017 Excoriation 10/18/2012 02/28/2017 Osteoporosis 07/08/2012 08/09/2012 Chronic pain 06/03/2012 07/24/2019 Overview: Chronic pain management for back injury, neck arthritis- [facility] documented as of this encounter (statuses as of 07/21/2023) [facility] of Past illness Narrative* Problem Noted Date Diagnosed Date Resolved Date Nausea & vomiting 11/06/2022 11/11/2022 Diarrhea 11/06/2022 11/11/2022 Sepsis 11/05/2022 11/11/2022 Chronic midline low back marcial n without sciatica 03/26/2018 07/24/2019 Acute pain of right shoulder 11/29/2017 11/28/2018 Low back pain radiating to r ight lower extremity 11/29/2017 07/24/2019 Chronic pain syndrome 09/27/20172018 Trigger finger, acquired 09/26/201710/2019 Overview: Added automatically from request for surgery [id number] Colon cancer screening 12/07/201612/07 Chronic midline low back marcial n without sciatica 08/23/2016 02/28/2017 Pain of left thumb 05/05/2016 7 Pain in left shoulder 10/29/20152016 Bilateral ankle pain 10/01/2015 017 Low back pain 08/06/2015 07/24/2019 Pain in right hip 08/06/2015 07/24/2019 Thoracic back pain 08/06/2015 7 Cervicalgia 08/06/2015 02/28/2017 Eczematous dermatitis 10/18/20122016 Xerosis cutis 10/18/2012 02/28/2017 Pruritus 10/18/2012 02/28/2017 Excoriation 10/18/2012 02/28/2017 Osteoporosis 07/08/2012 08/09/2012 Chronic pain 06/03/2012 07/24/2019 Overview: Chronic pain management for back injury, neck arthritis- [facility] documented as of this encounter (statuses as of 07/24/2023) [facility] of Past illness Narrative* Problem Noted Date Diagnosed Date Resolved Date Nausea & vomiting 11/06/2022 11/11/2022 Diarrhea 11/06/2022 11/11/2022 Sepsis 11/05/2022 11/11/2022 Chronic midline low back marcial n without sciatica 03/26/2018 07/24/2019 Acute pain of right shoulder 11/29/2017 11/28/2018 Low back pain radiating to r ight lower extremity 11/29/2017 07/24/2019 Chronic pain syndrome 09/27/20172018 Trigger finger, acquired 09/26/201710/2019 Overview: Added automatically from request for surgery [id number] Colon cancer screening 12/07/201612/07 Chronic midline low back marcial n without sciatica 08/23/2016 02/28/2017 Pain of left thumb 05/05/2016 7 Pain in left shoulder 10/29/20152016 Bilateral ankle pain 10/01/2015 017 Low back pain 08/06/2015 07/24/2019 Pain in right hip 08/06/2015 07/24/2019 Thoracic back pain 08/06/2015 7 Cervicalgia 08/06/2015 02/28/2017 Eczematous dermatitis 10/18/20122016 Xerosis cutis 10/18/2012 02/28/2017 Pruritus 10/18/2012 02/28/2017 Excoriation 10/18/2012 02/28/2017 Osteoporosis 07/08/2012 08/09/2012 Chronic pain 06/03/2012 07/24/2019 Overview: Chronic pain management for back injury, neck arthritis- [facility] documented as of this encounter (statuses as of 08/03/2023) [facility] of Past illness Narrative* Problem Noted Date Diagnosed Date Resolved Date Nausea & vomiting 11/06/2022 11/11/2022 Diarrhea 11/06/2022 11/11/2022 Sepsis 11/05/2022 11/11/2022 Chronic midline low back marcial n without sciatica 03/26/2018 07/24/2019 Acute pain of right shoulder 11/29/2017 11/28/2018 Low back pain radiating to r ight lower extremity 11/29/2017 07/24/2019 Chronic pain syndrome 09/27/20172018 Trigger finger, acquired 09/26/201710/2019 Overview: Added automatically from request for surgery [id number] Colon cancer screening 12/07/201612/07 Chronic midline low back marcial n without sciatica 08/23/2016 02/28/2017 Pain of left thumb 05/05/2016 7 Pain in left shoulder 10/29/20152016 Bilateral ankle pain 10/01/2015 017 Low back pain 08/06/2015 07/24/2019 Pain in right hip 08/06/2015 07/24/2019 Thoracic back pain 08/06/2015 7 Cervicalgia 08/06/2015 02/28/2017 Eczematous dermatitis 10/18/20122016 Xerosis cutis 10/18/2012 02/28/2017 Pruritus 10/18/2012 02/28/2017 Excoriation 10/18/2012 02/28/2017 Osteoporosis 07/08/2012 08/09/2012 Chronic pain 06/03/2012 07/24/2019 Overview: Chronic pain management for back injury, neck arthritis- [facility] documented as of this encounter (statuses as of 08/18/2023) [facility] [facility] History of Past illness Narrative* Problem Noted Date Diagnosed Date Resolved Date Nausea & vomiting 11/06/2022 11/11/2022 Diarrhea 11/06/2022 11/11/2022 Sepsis 11/05/2022 11/11/2022 Chronic midline low back marcial n without sciatica 03/26/2018 07/24/2019 Acute pain of right shoulder 11/29/2017 11/28/2018 Low back pain radiating to r ight lower extremity 11/29/2017 07/24/2019 Chronic pain syndrome 09/27/20172018 Trigger finger, acquired 09/26/201710/2019 Overview: Added automatically from request for surgery [id number] Colon cancer screening 12/07/201612/07 Chronic midline low back marcial n without sciatica 08/23/2016 02/28/2017 Pain of left thumb 05/05/2016 7 Pain in left shoulder 10/29/20152016 Bilateral ankle pain 10/01/2015 017 Low back pain 08/06/2015 07/24/2019 Pain in right hip 08/06/2015 07/24/2019 Thoracic back pain 08/06/2015 7 Cervicalgia 08/06/2015 02/28/2017 Eczematous dermatitis 10/18/20122016 Xerosis cutis 10/18/2012 02/28/2017 Pruritus 10/18/2012 02/28/2017 Excoriation 10/18/2012 02/28/2017 Osteoporosis 07/08/2012 08/09/2012 Chronic pain 06/03/2012 07/24/2019 Overview: Chronic pain management for back injury, neck arthritis- [facility] documented as of this encounter (statuses as of 09/24/2023) [facility]12-26-2022 History of Past illness Narrative* Problem Noted Date Diagnosed Date Resolved Date Nausea & vomiting 11/06/2022 11/11/2022 Diarrhea 11/06/2022 11/11/2022 Sepsis 11/05/2022 11/11/2022 Chronic midline low back marcial n without sciatica 03/26/2018 07/24/2019 Acute pain of right shoulder 11/29/2017 11/28/2018 Low back pain radiating to r ight lower extremity 11/29/2017 07/24/2019 Chronic pain syndrome 09/27/20172018 Trigger finger, acquired 09/26/201710/2019 Overview: Added automatically from request for surgery [id number] Colon cancer screening 12/07/201612/07 Chronic midline low back marcial n without sciatica 08/23/2016 02/28/2017 Pain of left thumb 05/05/2016 7 Pain in left shoulder 10/29/20152016 Bilateral ankle pain 10/01/2015 017 Low back pain 08/06/2015 07/24/2019 Pain in right hip 08/06/2015 07/24/2019 Thoracic back pain 08/06/2015 7 Cervicalgia 08/06/2015 02/28/2017 Eczematous dermatitis 10/18/20122016 Xerosis cutis 10/18/2012 02/28/2017 Pruritus 10/18/2012 02/28/2017 Excoriation 10/18/2012 02/28/2017 Osteoporosis 07/08/2012 08/09/2012 Chronic pain 06/03/2012 07/24/2019 Overview: Chronic pain management for back injury, neck arthritis- [facility] documented as of this encounter (statuses as of 09/25/2023) [facility]12-26-[facility] History of Past illness Narrative* Problem Noted Date Diagnosed Date Resolved Date Nausea & vomiting 11/06/2022 11/11/2022 Diarrhea 11/06/2022 11/11/2022 Sepsis 11/05/2022 11/11/2022 Chronic midline low back marcial n without sciatica 03/26/2018 07/24/2019 Acute pain of right shoulder 11/29/2017 11/28/2018 Low back pain radiating to r ight lower extremity 11/29/2017 07/24/2019 Chronic pain syndrome 09/27/20172018 Trigger finger, acquired 09/26/201710/2019 Overview: Added automatically from request for surgery [id number] Colon cancer screening 12/07/201612/07 Chronic midline low back marcial n without sciatica 08/23/2016 02/28/2017 Pain of left thumb 05/05/2016 7 Pain in left shoulder 10/29/20152016 Bilateral ankle pain 10/01/2015 017 Low back pain 08/06/2015 07/24/2019 Pain in right hip 08/06/2015 07/24/2019 Thoracic back pain 08/06/2015 7 Cervicalgia 08/06/2015 02/28/2017 Eczematous dermatitis 10/18/20122016 Xerosis cutis 10/18/2012 02/28/2017 Pruritus 10/18/2012 02/28/2017 Excoriation 10/18/2012 02/28/2017 Osteoporosis 07/08/2012 08/09/2012 Chronic pain 06/03/2012 07/24/2019 Overview: Chronic pain management for back injury, neck arthritis- [facility] documented as of this encounter (statuses as of 10/24/2023) [facility]12-26-[facility] History of Past illness Narrative* Problem Noted Date Diagnosed Date Resolved Date Nausea & vomiting 11/06/2022 11/11/2022 Diarrhea 11/06/2022 11/11/2022 Sepsis 11/05/2022 11/11/2022 Chronic midline low back mracial n without sciatica 03/26/2018 07/24/2019 Acute pain of right shoulder 11/29/2017 11/28/2018 Low back pain radiating to r ight lower extremity 11/29/2017 07/24/2019 Chronic pain syndrome 09/27/20172018 Trigger finger, acquired 09/26/201710/2019 Overview: Added automatically from request for surgery [id number] Colon cancer screening 12/07/201612/07 Chronic midline low back marcial n without sciatica 08/23/2016 02/28/2017 Pain of left thumb 05/05/2016 7 Pain in left shoulder 10/29/20152016 Bilateral ankle pain 10/01/2015 017 Low back pain 08/06/2015 07/24/2019 Pain in right hip 08/06/2015 07/24/2019 Thoracic back pain 08/06/2015 7 Cervicalgia 08/06/2015 02/28/2017 Eczematous dermatitis 10/18/20122016 Xerosis cutis 10/18/2012 02/28/2017 Pruritus 10/18/2012 02/28/2017 Excoriation 10/18/2012 02/28/2017 Osteoporosis 07/08/2012 08/09/2012 Chronic pain 06/03/2012 07/24/2019 Overview: Chronic pain management for back injury, neck arthritis- [facility] documented as of this encounter (statuses as of 10/25/2023) [facility]11-22-2022 Miscellaneous Notes* Telephone Encounter - Sameera Frederick LPN - 10/03/2022 9:24 AM EST Emiliana from [employer] calling patient medicare assessment was completed today. Provider can go to provider portal if wants to view it. documented in this encounterNorwalk [facility]09-13-[facility]22 Miscellaneous Notes* Telephone Encounter - Everton Tamayo LPN - 07/25/2022 12:55 PM EDT TC to pt, notified of provider response. She verbalized understanding. Appt scheduled. Everton Tamayo LPN * Telephone Encounter - Tu Canela MD - 07/25/2022 12:40 PM EDT Bp still up. Labs show kidney function is stable. Potassium slightly low but increasing. Eat high potassium containing foods like bananas etc. Add toprol once a day and recheck bp and pulse in four weeks * Telephone Encounter - Jelena Martin LPN - 07/25/2022 11:36 AM EDT Manual Readin/90 Pulse: 84 BP Steph average 169/87 Pulse: 84 Repeat BP Check: 169/84 P84 #1 170/82 P84 #2 167/83 P84 #3 171/89 P83 #4 172/90 P85 #5 166/87 P83 #6 Reason for blood pressure check - Last BP elevated and Medication adjustment Patient is: Taking medication as prescribed Yes Took medication today Yes Experiencing side effects No Patient here for a blood pressure check as last reading was elevated on 07/05/2022 and the medication Lisinopril was increased to 40 mg daily. Tolerating medication change well. Denies any chest pain, shortness of breath, or dizziness, Did have complaints of headache today and usually treats with ty lenol but had not taken any this morning. Daily caffeine use. Past personal history of tobacco use and states had smoked two cigarettes on the way to the office. Alert and oriented. Please note feet remain swollen however she did state since she has cut back on smoking the swelling has improved some. Pt has been identified by name and birthdate: Yes Allergies reviewed: Yes Latex allergy: no. Medication - prescribed and OTC reviewed and updated: Yes Do you need any prescription refills prior to your next visit: No Health Maintenance: Reviewed and up to date documented in this encounterNorwalk [facility]09-13-2022 History of Present illness Narrative* Jelena Martin LPN - 07/25/2022 11:10 AM EDT Manual Readin/90 Pulse: 84 BP Steph average 169/87 Pulse: 84 Repeat BP Check: 169/84 P84 #1 170/82 P84 #2 167/83 P84 #3 171/89 P83 #4 172/90 P85 #5 166/87 P83 #6 Reason for blood pressure check - Last BP elevated and Medication adjustment Patient is: Taking medication as prescribed Yes Took medication today Yes Experiencing side effects No Patient here for a blood pressure check as last reading was elevated on 07/05/2022 and the medication Lisinopril was increased to 40 mg daily. Tolerating medication change well. Denies any chest pain, shortness of breath, or dizziness, Did have complaints of headache today and usually treats with ty lenol but had not taken any this morning. Daily caffeine use. Past personal history of tobacco use and states had smoked two cigarettes on the way to the office. Alert and oriented. Please note feet remain swollen however she did state since she has cut back on smoking the swelling has improved some. Pt has been identified by name and birthdate: Yes Allergies reviewed: Yes Latex allergy: no. Medication - prescribed and OTC reviewed and updated: Yes Do you need any prescription refills prior to your next visit: No Health Maintenance: Reviewed and up to date documented in this encounterNorwalk [facility]08-29-2022 Miscellaneous Notes* Telephone Encounter - Mile Crocker LPN - 07/10/2022 2:56 PM EDT Patient telephoned, message below given. Voices understanding. Nurse visit scheduled for 07/25 for BP recheck. Mlie Crocker LPN * Telephone Encounter - Jie Lima RN - 07/05/2022 12:15 PM EDT Called and left a detailed voicemail notifying patient of providers message. Hospital phone number was left for Pt to call back and schedule NV in 2 weeks for BP check. Jie Lima RN * Telephone Encounter - Tacho Ellis MD - 07/05/2022 12:10 PM EDT BP still high. Increase lisinopril to 40 mg daily and recheck in 2 weeks at [place]. * Telephone Encounter - Natalia Hudson LPN - 07/05/2022 11:19 AM EDT Manual Readin/96 Pulse: 90 BP Steph average: 169/91 P: 79 Repeat BP Check: 165/92 P79 #1 175/91 P78 #2 172/91 P80 #3 166/91 P79 #4 169/90 P78 #5 165/91 P79 #6 Reason for blood pressure check - Last BP elevated and Medication adjustment Patient is: Taking medication as prescribed Yes Took medication today Yes If no, date medication last taken N/A Experiencing side effects No BP was elevated at last appt 06/14/22. Lisinopril was increased to 20mg daily. Tolerating medication change well. Denies any chest pain, shortness of breath, dizziness, or headaches. Daily caffeine use. Past personal history of tobacco use; no current exposure. Alert and oriented. Pt has been identified by name and birthdate: Yes Allergies reviewed: Yes Latex allergy: no. Medication - prescribed and OTC reviewed and updated: Yes Do you need any prescription refills prior to your next visit: No Health Maintenance: Reviewed and not up to date and provider notified Patient advised that she would be contacted after review by patient account liaison. Natalia Hudson LPN documented in this encounterNorwalk [facility] Hospital08-22-2022 Miscellaneous Notes* Telephone Encounter - Babs Mcfarlane LPN - 07/03/2022 9:28 AM EDT Pt notified of results and provider message. Lab appt scheduled. Babs Mcfarlane LPN * Telephone Encounter - Sheron French Ma - 07/03/2022 9:15 AM EDT Left message for patient to return call. Sheron French Ma * Telephone Encounter - Tu Canela MD - 07/01/2022 1:14 AM EDT See below. Patient has not read my chart message sent to review lab results. Please call and let her know Your labs are stable. Sodium and potassium are slightly low. Lets just follow it. I have placed a repeat bmp in two to four weeks to have drawn at the lab. Dr Canela documented in this encounterNorwalk [facility] Hospital08-03-2022 History of Present illness Narrative* Tu Canela MD - 06/14/2022 9:12 AM EDT Patient presents with: Hypertension: F/U HPI: Patient presents today for office visit for follow up. Lump is decreasing. Can barely feel it. Reviewed ct that showed fatty liver and has had normal labs. Has subcm renal cysts that we will follow. Has ectatic aorta will follow. Still having some swelling. Seeing Dr. Tim for lumps on her foot. She has had venous ultrasounds Has seen Dr. Pope for the same. Has documented venous reflux. See previous ov: Complains of lump Patient mentions lump presented 2 months ago. Mid lower abdomen.Non tender during exam. Lump prominent during standing. Lump non palpable when supine. Pain original started in the RLQ. Now generalized in lower abdominal. Patient mentions pain radiates to flank on both sides. Abdomen tender to light touch. Voiding and regular BMs No nausea. No vomiting. No diarrhea. No discoloration at site. HTN: Patient is compliant with meds Yes Monitors bp at home: No. Denies side effects: Yes. Chest pain: No. Dyspnea: Yes. Edema: yes. Palpitations: No. Syncope: No. Headache: No. Dizziness: No. HYPERLIPIDEMIA: Patient is taking medications: Yes. Patient is watching diet: No. Patient denies myalgias: Yes. Patient denies gi upset: Yes Hyperglycemia Patient does not check sugar. No polydipsia. No polyuria ONC:Sees oncology regularly. Next appt 06/07/22 Has labs ordered for next month Patient loss 40lbs since january 2022. Decreased appetite but has stopped all her sugars and soda. Is planned. Colonoscopy scheduled. Patient would like to quit smoking. Smoking cessation discussed. Component Latest Ref Rng & Units 05/16/2022 06/01/2022 Glucose 74 - 99 mg/dL 99 BUN 7 - 21 mg/dL 15 Creatinine 0.58 - 0.96 mg/dL 0.96 Sodium 136 - 144 mmol/L 141 Potassium 3.7 - 5.1 mmol/L 3.8 Chloride 97 - 105 mmol/L 105 CO2 22 - 30 mmol/L 23 Anion Gap 9 - 18 mmol/L 13 Calcium 8.5 - 10.2 mg/dL 9.0 eGFR >=60 mL/min/1.73m 60 Cholesterol, Total <200 mg/dL 129 Triglyceride <150 mg/dL 68 HDL Cholesterol >39 mg/dL 44 Non HDL Cholesterol <130 mg/dL 85 Fasting Time hrs 12 VLDL Cholesterol <30 mg/dL 14 TC:HDL Ratio <5.10 2.93 LDL Cholesterol <100 mg/dL 71 LDL:HDL Ratio <2.54 1.61 Hemoglobin A1C 4.3 - 5.6 % 5.2 Estimated Average Glucose mg/dL 103 CT: IMPRESSION: No evidence of developing suspicious mass or adenopathy Fatty liver Splenic enlargement Photo Studio Assistant: PRINCE Transcribe Date/Time: May 17 2022 3:43P Dictated by : TANGELA MCKEON MD This examination was interpreted and the report reviewed and electronically signed by: TANGELA MCKEON MD on May 17 2022 3:53PM EST Results-Findings * * *Final Report* * * DATE OF EXAM: May 16 2022 3:28PM [facility] 0530 - CT ABD/PEL W IVCON / PROCEDURE REASON: multiple diagnoses * * * * Physician Interpretation * * * * EXAMINATION: CT ABDOMEN AND PELVIS WITH IV CONTRAST CLINICAL HISTORY: Breast carcinoma TECHNIQUE: CT of the abdomen and pelvis was performed using standard technique, scanning from just above the dome of the diaphragm to the symphysis pubis. MQ: CTAP_3 Contrast: IV: 100 ml of Omnipaque 300 Oral: 50 ml of Omni 240 10-25ml diluted with water CT Radiation dose: Integrated Dose-length product (DLP) for this visit = 372 mGy*cm. CT Dose Reduction Employed: Automated exposure control(AEC) and iterative recon COMPARISON: 11/01/2021 RESULT: Liver: No mass. Fatty infiltration Biliary: No bile duct dilation. Cholecystectomy Spleen: No mass. The spleen is 13.5 cm in length. Pancreas: No mass or duct dilation. Adrenals: No mass. Kidneys: Subcentimeter low-density lesions bilaterally are too small to characterize with certainty, and likely represent cysts. No gross obstructive uropathy. No suspicious renal lesion GI tract: No dilation or wall thickening. Diverticulosis without evidence of diverticulitis Lymph nodes: No abdominal or pelvic lymphadenopathy. Mesentery/Peritoneum: No ascites or mass. Retroperitoneum: No mass. Vasculature: Mild ectasia of the aorta without focal aneurysmal dilatation Pelvis: No mass, ascites or fluid collection. Bones/Soft Tissues: No significant finding. Lower thorax: Unremarkable. MEDICATIONS: Current Outpatient Medications Medication Sig lisinopril (ZESTRIL, PRINIVIL) 10 mg tablet Take 1 tablet by mouth once daily. levothyroxine (SYNTHROID) 25 mcg tablet Take 1 tablet by mouth once daily. Except 2 tabs by mouth every Sunday and Sunday bioflav,lemon/vit Bcomp,C (LIPOFLAVONOID ORAL) Take by mouth. 1 tablet by mouth daily. MAGNESIUM ORAL Take 1 tablet by mouth once daily. multivit with calcium,iron,min (WOMEN'S MULTIPLE VITAMINS ORAL) Take 1 tablet by mouth once daily. BIOTIN ORAL Take 1 tablet by mouth once daily. cholecalciferol, vitamin D3, (VITAMIN D3 ORAL) Take 2,000 Units by mouth once daily. alpha tocopheryl acetate (VITAMIN E) 400 unit capsule Take 400 Units by mouth once daily. diphenhydrAMINE-Acetaminophen 25-500 mg tab Take 2 tablets by mouth at bedtime as needed. No current facility-administered medications for this visit. ALLERGIES: ALLERGIES Allergen Reactions Animal Dander Intolerance Darvocet A500 [Prop* Mental Status Change Dust Other: See Comments Grass Pollen Other: See Comments Mold Other: See Comments Soma [Carisoprodol] Swelling, Itching Trees Other: See Comments PAST MEDICAL HISTORY Diagnosis Date Abnormal ultrasound of breast 12/02/15 Left Breast cancer of upper-outer quadrant of left female breast (HCC) Chronic obstructive pulmonary disease (COPD) (HCC) Chronic pain 06/03/2012 sees pain management. Hyperlipidemia 06/03/2012 Hypertension 06/03/2012 Osteopenia Psoriasis Pulmonary nodule Dr. Dawn Snoring PAST SURGICAL HISTORY Procedure Laterality Date AMPUTATE TOE; IP JOINT BREAST BIOPSY Left 12/02/2015 BX/EXC LYMPH NODE OPEN DEEP AXILLARY NODE Left 05/11/2015 DELIVERY ONLY , low transverse CHOLECYSTECTOMY COLONOSCOPY 05/13/2001 normal COLONOSCOPY 01/02/2007 diverticulosis COLONOSCOPY FLX DX W/COLLJ SPEC WHEN PFRMD 09/04/2013 Colonoscopy COLONOSCOPY FLX DX W/COLLJ SPEC WHEN PFRMD 12/07/2016 Colonoscopy COLONOSCOPY SCREENING 05/30/2022 Dr Borrero 5 year F/U HYSTERECTOMY HX stil has one ovary INCISE FINGER TENDON SHEATH Right INCISE FINGER TENDON SHEATH Right MASTECTOMY, PARTIAL Left 05/11/2015 NEUROPLASTY &/TRANSPOS MEDIAN NRV CARPAL TUNNE Right 08/01/2019 Right carpal tunnel release ORTHOPEDIC SURGERY HX Left 10/11/2017 3rd and 4th trigger finger release PERQ DEVICE PLACEMENT BREAST LOC 1ST LES W/GDNCE Left 05/11/2015 THYROIDECTOMY TOTAL/COMPLETE right sided thyroidectomy due to nodules. were benign XCAPSL CTRC RMVL INSJ IO LENS PROSTH W/O ECP 01/2015 Cataract Extraction with PC IOL FAMILY HISTORY Problem Relation Age of Onset Heart Father other (Black Lung) Father Arthritis Mother RA other (gallbladder) Mother Diabetes Sister Cancer Sister kidney tumor Cancer Brother lung cancer Social History Tobacco Use Smoking status: Current Every Day Smoker Packs/day: 1.00 Years: 20.00 Pack years: 20.00 Types: Cigarettes Smokeless tobacco: Never Used Tobacco comment: Pt has cut back to 1/4 pack daily. Substance Use Topics Alcohol use: No Drug use: No Reviewed current medications, allergies, past medical history, surgical history, family history andsocial history today. REVIEW OF SYSTEMS All other reviewed and negative other than HPI. HEALTH MAINTENANCE: Reviewed health maintenance issues today and recommended the following in detail. BP CONTROLLED (<130/80) Never done VITALS: BP 180/88 Pulse 79 Ht 165.1 cm (5' 5 ) Wt 69 kg (152 lb 3.2 oz) SpO2 96% BMI 25.33 kg/m Last 4 Encounter Wt Readings: Date: Wt: 06/14/2022 69 kg (152 lb 3.2 oz) 06/09/2022 70.3 kg (155 lb) 06/07/2022 69.9 kg (154 lb) 05/10/2022 71.2 kg (157 lb) PHYSICAL EXAMINATION: General appearance: Well appearing, alert, in no acute distress, well-hydrated, well nourished. Skin: Skin color, texture, turgor normal, no suspicious rashes or lesions Head: Normocephalic, no masses, lesions, tenderness or abnormalities Lungs: Lungs clear to auscultation. No wheezing, rhonchi, rales Heart: RRR without murmur, gallop, or rubs. No ectopy Abdomen: Normal abdominal exam, Abdomen soft, non-tender. Bowel sounds normal. No masses, organomegaly Extremities:chronic pedal edema. No redness or warmth. No calf tenderness. ASSESSMENT/PLAN: 1. Primary hypertension - ICD9: 401.9, ICD10: I10 (primary diagnosis) - suboptimal control - Increase lisinopril (Zestril/Prinivil) - bp check in two to four weeks. - Goal of BP <130/80 - LISINOPRIL 20 MG TABLET - BASIC METABOLIC PNL 2. Ectatic aorta (HCC) - ICD9: 447.70, ICD10: I77.819 - consider repeat us in one year. 3. Fatty liver - ICD9: 571.8, ICD10: K76.0 - continue to work on weight reduction. 4. Renal cyst - ICD9: 753.10, ICD10: N28.1 - recheck in six months. - US KIDNEY/BLADDER 5. Venous insufficiency - ICD9: 459.81, ICD10: I87.2 - wear support hose, elevation prn. Tu Canela RTO in three months and prn. documented in this encounterNorwalk [facility] Hospital07-29-2022 History of Present illness Narrative* Nevin Fajardo, [employer] - 06/09/2022 10:04 AM EDT Chief Complaint Patient presents with: Established Patient HPI: Florecita Healy is a 81 year old female who presents here today for follow up breast cancer. Per Dr. Slaughter's previous note: H/o found to have an area of architectural distortion located in the left breast upper outer aspectat middle depth on screening mammogram in March 2015. Ultrasound demonstrated a mass with spiculated margin in the left breast at 2:00 posterior depth. There was posterior acoustic shadowing. Mammographic imaging revealed to it to measure approximately 1 cm. Left-sided partial mastectomy with re-xcision of medial margin and sentinel lymph node biopsy on 05/11/2015. The pathology specimen demonstrated a 1.5 cm single focus of invasive carcinoma. Margins were negative. The margin on the main specimen was 6 mm and the additional medial margin was up to a centimeter in thickness. Grade was 2. No angiolymphatic invasion was identified. DCIS comprised 10% of the tumor volume. 2 lymph nodes were recovered both were negative for disease. Estrogen receptors were quantified at greater than 95%, strong. Progesterone receptor 60%, moderate. HER-2 was 2+ on IHC but was negative by FISH testing. Completed RT and then started anastrozole first week August 2015. Changed to tamoxifen d/t body aches/pains on arimidex. 2015. Stopped arimidex 06/2016 d/t joint pain. Began aromasin 07/2016. Stopped aromasin early January 2017 d/t joint pain and cramping. Currently therapy:Observation Pt. is being followed by podiatry/vasc/PCP. PCP for HTN. Colonoscopy done last week by Dr. Borrero at [facility]. Next due in 5 years per report. Appetite: It's ok. Energy level: I have no energy. I hate this heat. Denies fevers or recent illness. Resp:denies cough or sob, occ. hill +smoker Cardiac:denies chest pain/occ. 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 Past medical history, appointments, medications, allergies reviewed. No changes. EXAM: BP 169/85 Pulse 89 Temp 36.6 C (97.8 F) (Temporal) Wt 70.3 kg (155 lb) BMI 25.79 kg/m APPEARANCE Well appearing, alert, in no acute distress, well-hydrated, well nourished. HEART RRR with normal S1 and S2, no murmurs LUNG clear to auscultation BREAST FEMALE no mass/nodule b/l, L scar lateral/radiation changes LYMPH NODES No cervical lymphadenopathy, No supraclavicular lymphadenopathy and No axillary lymphadenopathy. ABDOMEN bowel sounds normoactive, soft, non-tender, non-distended, without organomegaly or palpablemasses EXTREMITIES No edema NEURO Awake, alert and oriented x 3, Normal gait and No involuntary motions. SKIN Skin color, texture, turgor normal, no suspicious rashes or lesions RADIOLOGY: Mammogram 05/02/22: IMPRESSION: INCOMPLETE: NEEDS ADDITIONAL IMAGING EVALUATION The asymmetry in the left breast is indeterminate. Additional views with possible ultrasound are recommended. L dx mammogram 06/07/22: IMPRESSION: BENIGN FINDING There is no mammographic evidence of malignancy. Return to annual mammogram screening schedule is recommended. ASSESSMENT/PLAN: 1. Malignant neoplasm of upper-outer quadrant of left breast in female, estrogen receptor positive (HCC) - ICD9: 174.4, V86.0, ICD10: C50.412, Z17.0 pT1c N0 MX ER/VT positive HER2 non-amplified stage I invasive ductal carcinoma of the left breast. Oncotype test:Recurrence score 15 indicating 10% 10 yr risk. Did not recommend adjuvant chemotherapy based on Oncotype testing. - No concerning findings on exam in regards to breast cancer. - Pt. did not tolerate 2 AI's or tamoxifen. Feels much better after stopping aromasin. Declined anyfurther therapy. - Reviewed mammograms with pt. - Mammogram due end of May 2023. - Follow up with pain mgmt./PCP/DERM as scheduled. - Follow up in 6 months. - Pt. aware to call office with any questions/concerns. The patient indicates understanding of these issues and agrees with the plan. All documentation from previous visit of 01/05/22-Dr. Slaughter/myself was copied and pasted, documentation has been reviewed and edited as necessary for today's visit. Nevin Fajardo APRN.GRADUATE TEACHER EDUCATION documented in this encounter[facility]07[facility] History of Present illness Narrative* Tu Canela MD - 06/07/2022 2:10 PM EDT Patient presents with: Follow Up: still feels mass in abd Edema: swelling in her feet increasing again HPI: Patient presents today for office visit for follow up. See previous ov: Complains of lump Patient mentions lump presented 2 months ago. Mid lower abdomen.Non tender during exam. Lump prominent during standing. Lump non palpable when supine. Pain original started in the RLQ. Now generalized in lower abdominal. Patient mentions pain radiates to flank on both sides. Abdomen tender to light touch. Voiding and regular BMs No nausea. No vomiting. No diarrhea. No discoloration at site. HTN: Patient is compliant with meds Yes Monitors bp at home: No. Denies side effects: Yes. Chest pain: No. Dyspnea: Yes. Edema: yes. Palpitations: No. Syncope: No. Headache: No. Dizziness: No. HYPERLIPIDEMIA: Patient is taking medications: Yes. Patient is watching diet: No. Patient denies myalgias: Yes. Patient denies gi upset: Yes Hyperglycemia Patient does not check sugar. No polydipsia. No polyuria ONC:Sees oncology regularly. Next appt 06/07/22 Has labs ordered for next month Patient loss 40lbs since january 2022. Decreased appetite but has stopped all her sugars and soda. Is planned. Colonoscopy scheduled. Patient would like to quit smoking. Smoking cessation discussed. Component Latest Ref Rng & Units 05/16/2022 06/01/2022 Glucose 74 - 99 mg/dL 99 BUN 7 - 21 mg/dL 15 Creatinine 0.58 - 0.96 mg/dL 0.96 Sodium 136 - 144 mmol/L 141 Potassium 3.7 - 5.1 mmol/L 3.8 Chloride 97 - 105 mmol/L 105 CO2 22 - 30 mmol/L 23 Anion Gap 9 - 18 mmol/L 13 Calcium 8.5 - 10.2 mg/dL 9.0 eGFR >=60 mL/min/1.73m 60 Cholesterol, Total <200 mg/dL 129 Triglyceride <150 mg/dL 68 HDL Cholesterol >39 mg/dL 44 Non HDL Cholesterol <130 mg/dL 85 Fasting Time hrs 12 VLDL Cholesterol <30 mg/dL 14 TC:HDL Ratio <5.10 2.93 LDL Cholesterol <100 mg/dL 71 LDL:HDL Ratio <2.54 1.61 Hemoglobin A1C 4.3 - 5.6 % 5.2 Estimated Average Glucose mg/dL 103 CT: IMPRESSION: No evidence of developing suspicious mass or adenopathy Fatty liver Splenic enlargement Photo Studio Assistant: PRINCE Transcribe Date/Time: May 17 2022 3:43P Dictated by : TANGELA MCKEON MD This examination was interpreted and the report reviewed and electronically signed by: TANGELA MCKEON MD on May 17 2022 3:53PM EST Results-Findings * * *Final Report* * * DATE OF EXAM: May 16 2022 3:28PM [facility] 0530 - CT ABD/PEL W IVCON / PROCEDURE REASON: multiple diagnoses * * * * Physician Interpretation * * * * EXAMINATION: CT ABDOMEN AND PELVIS WITH IV CONTRAST CLINICAL HISTORY: Breast carcinoma TECHNIQUE: CT of the abdomen and pelvis was performed using standard technique, scanning from just above the dome of the diaphragm to the symphysis pubis. MQ: CTAP_3 Contrast: IV: 100 ml of Omnipaque 300 Oral: 50 ml of Omni 240 10-25ml diluted with water CT Radiation dose: Integrated Dose-length product (DLP) for this visit = 372 mGy*cm. CT Dose Reduction Employed: Automated exposure control(AEC) and iterative recon COMPARISON: 11/01/2021 RESULT: Liver: No mass. Fatty infiltration Biliary: No bile duct dilation. Cholecystectomy Spleen: No mass. The spleen is 13.5 cm in length. Pancreas: No mass or duct dilation. Adrenals: No mass. Kidneys: Subcentimeter low-density lesions bilaterally are too small to characterize with certainty, and likely represent cysts. No gross obstructive uropathy. No suspicious renal lesion GI tract: No dilation or wall thickening. Diverticulosis without evidence of diverticulitis Lymph nodes: No abdominal or pelvic lymphadenopathy. Mesentery/Peritoneum: No ascites or mass. Retroperitoneum: No mass. Vasculature: Mild ectasia of the aorta without focal aneurysmal dilatation Pelvis: No mass, ascites or fluid collection. Bones/Soft Tissues: No significant finding. Lower thorax: Unremarkable. Systems Auditor (topogram) images: No additional findings. MEDICATIONS: Current Outpatient Medications Medication Sig varenicline (CHANTIX) 1 mg tablet Take 0.5 tablets by mouth once daily for 3 days, THEN 0.5 tabletstwice daily for 4 days, THEN 1 tablet twice daily for 23 days. (Patient not taking: Reported on 06/07/2022) [START ON 06/09/2022] varenicline (CHANTIX) 1 mg tablet Take 1 tablet by mouth twice daily. After finishing first month (Patient not taking: Reported on 06/07/2022 ) baclofen (LIORESAL) 10 mg tablet Take 1 tablet by mouth twice daily as needed. pregabalin (LYRICA) 25 mg capsule Take 1 capsule by mouth once daily as needed for up to 30 days. lisinopril (ZESTRIL, PRINIVIL) 10 mg tablet Take 1 tablet by mouth once daily. levothyroxine (SYNTHROID) 25 mcg tablet Take 1 tablet by mouth once daily. Except 2 tabs by mouth every Sunday and Sunday bioflav,lemon/vit Bcomp,C (LIPOFLAVONOID ORAL) Take by mouth. 1 tablet by mouth daily. MAGNESIUM ORAL Take 1 tablet by mouth once daily. multivit with calcium,iron,min (WOMEN'S MULTIPLE VITAMINS ORAL) Take 1 tablet by mouth once daily. BIOTIN ORAL Take 1 tablet by mouth once daily. cholecalciferol, vitamin D3, (VITAMIN D3 ORAL) Take 2,000 Units by mouth once daily. alpha tocopheryl acetate (VITAMIN E) 400 unit capsule Take 400 Units by mouth once daily. diphenhydrAMINE-Acetaminophen 25-500 mg tab Take 2 tablets by mouth at bedtime as needed. No current facility-administered medications for this visit. ALLERGIES: ALLERGIES Allergen Reactions Animal Dander Intolerance Darvocet A500 [Prop* Mental Status Change Dust Other: See Comments Grass Pollen Other: See Comments Mold Other: See Comments Soma [Carisoprodol] Swelling, Itching Trees Other: See Comments PAST MEDICAL HISTORY Diagnosis Date Abnormal ultrasound of breast 12/02/15 Left Breast cancer of upper-outer quadrant of left female breast (HCC) Chronic obstructive pulmonary disease (COPD) (HCC) Chronic pain 06/03/2012 sees pain management. Hyperlipidemia 06/03/2012 Hypertension 06/03/2012 Osteopenia Psoriasis Pulmonary nodule Dr. Dawn Snoring PAST SURGICAL HISTORY Procedure Laterality Date AMPUTATE TOE; IP JOINT BREAST BIOPSY Left 12/02/2015 BX/EXC LYMPH NODE OPEN DEEP AXILLARY NODE Left 05/11/2015 DELIVERY ONLY , low transverse CHOLECYSTECTOMY COLONOSCOPY 05/13/2001 normal COLONOSCOPY 01/02/2007 diverticulosis COLONOSCOPY FLX DX W/COLLJ SPEC WHEN PFRMD 09/04/2013 Colonoscopy COLONOSCOPY FLX DX W/COLLJ SPEC WHEN PFRMD 12/07/2016 Colonoscopy COLONOSCOPY SCREENING 05/30/2022 Dr Borrero 5 year F/U HYSTERECTOMY HX stil has one ovary INCISE FINGER TENDON SHEATH Right INCISE FINGER TENDON SHEATH Right MASTECTOMY, PARTIAL Left 05/11/2015 NEUROPLASTY &/TRANSPOS MEDIAN NRV CARPAL TUNNE Right 08/01/2019 Right carpal tunnel release ORTHOPEDIC SURGERY HX Left 10/11/2017 3rd and 4th trigger finger release PERQ DEVICE PLACEMENT BREAST LOC 1ST LES W/GDNCE Left 05/11/2015 THYROIDECTOMY TOTAL/COMPLETE right sided thyroidectomy due to nodules. were benign XCAPSL CTRC RMVL INSJ IO LENS PROSTH W/O ECP 01/2015 Cataract Extraction with PC IOL FAMILY HISTORY Problem Relation Age of Onset Heart Father other (Black Lung) Father Arthritis Mother RA other (gallbladder) Mother Diabetes Sister Cancer Sister kidney tumor Cancer Brother lung cancer Social History Tobacco Use Smoking status: Current Every Day Smoker Packs/day: 1.00 Years: 20.00 Pack years: 20.00 Types: Cigarettes Smokeless tobacco: Never Used Tobacco comment: Pt has cut back to 1/4 pack daily. Substance Use Topics Alcohol use: No Drug use: No Reviewed current medications, allergies, past medical history, surgical history, family history andsocial history today. REVIEW OF SYSTEMS All other reviewed and negative other than HPI. VITALS: BP 152/92 Pulse 88 Wt 69.9 kg (154 lb) BMI 25.63 kg/m Med student was seeing patient. She had to leave the office and declined to come back before I was into see patient. Per nursing feet appeared as they normally do Will have staff let her know I am unable to evaluate her foot without seeing it. No charge since left without me seeing her. Tu Canela MD documented in this encounterNor[facility]07-06-2022 Miscellaneous Notes* Telephone Encounter - Miracle Anthony Ma - 05/17/2022 5:35 PM EDT Patient was notified and has appointment 06/01 Miracle Anthony Ma * Telephone Encounter - Tu Canela MD - 05/17/2022 5:[address] does not show a definite lump. Shows fatty liver and some mild enlargement of the spleen related to the liver. Weight loss helps etc. Follow up in one to two weeks to discuss more and recheck. documented in this encounterNorwalk [facility] Hospital07-05-2022 History of Present illness Narrative* Savanah Sarkar, RT(R) - 05/16/2022 3:00 PM EDT Radiology Service Progress Note DATE OF SERVICE: May 16, 2022 TIME: 3:29 PM PATIENT IDENTITY VERIFICATION COMPLETED USING TWO (2) STANDARD IDENTIFIERS: Name and Date of confirmed by patient verbally. FALL SCREENING: Has the patient had 2 falls in the last year or 1 fall with injury or currently using an Ambulatory Assistive Device (Walker, Cane, Wheelchair, Crutches, etc.)? No PATIENT GENDER DATA: Female. status: : No status: NO. PATIENT RELEVANT IMPLANT DATA REVIEWED: Yes ALLERGIES: Reviewed and unchanged CONTRAST ALLERGY: NO. EXAM: CT -CONTRAST INDUCED NEPHROPATHY RISK FACTORS: Patient age > 60 years CREATININE: Creatinine Date Value Ref Range Status 05/16/2022 0.96 0.58 - 0.96 mg/dL Final 11/01/2021 0.96 0.58 - 0.96 mg/dL Final 04/01/2021 1.00 (H) 0.58 - 0.96 mg/dL Final Estimated Glomerular Filtration Rate Date Value Ref Range Status 05/16/2022 60 >=60 mL/min/1.73m Final Comment: Estimated Glomerular Filtration Rate (eGFR) is calculated using the 2020 CKD-EPI creatinine equation. This equation utilizes serum creatinine, sex, and age as parameters. The creatinine assay has traceable calibration to isotope dilution- mass spectrometry. Refer to KDIGO guidelines for clinical interpretation. In patients with unstable renal function, e.g. those with acute kidney injury, the eGFRmay not accurately reflect actual GFR. eGFR- Date Value Ref Range Status 11/01/2021 >60 Final P.O.C.T. RESULTS: POC done: Yes, See Lab Tab May 16, 2022 TREATMENT: N/A PERIPHERAL IV DATA: Ambulatory: A peripheral IV was started in the Right antecubital site with a Angio cath: 22 gauge. RADIOLOGY DEPARTMENT: CT; Exam(s) Completed: Abdomen/Pelvis SIGNATURE: RT Trevor(R) PATIENT NAME: Florecita Healy DATE: May 16, 2022 TIME: 3:29 PM documented in this encounterNorwalk [facility] Hospital06-21-2022 Miscellaneous Notes* Letter - Mammography Coordinator - 05/02/2022 11:37 AM EDT May 02, 2022 PID: [id number] Florecita Healy [address] [id number] Dear Ms. Healy, Your recent breast imaging exam on 05/02/2022 showed a possible finding that requires additional imaging studies for a complete evaluation. Most such findings are probably benign (not cancer). If you have a healthcare provider who ordered/prescribed your screening mammogram: Please call [phone] or [phone]: [phone] to schedule an appointment for your additional imaging (if youhave not already done so). If you DO NOT have a healthcare provider (ie you did not have an order/prescription for your screening mammogram): Please call to schedule an appointment for your additional imaging (if you have not already done so). You must have an order/prescription from your physician when calling to schedule your appointment. If your order/prescription is not electronic, you must bring the hard copy with you on the day of your exam to avoid delays. Your imaging studies and reports are [facility] as part of [facility] permanent medical record, and are available for your continuing care. Thank you for allowing us to help in meeting your health care needs. Sincerely, Dr. Redman Interpreting Radiologist [facility] (Additional imaging) documented in this encounterNorwalk Memorial Hospital06-21-2022 Procedure note* Erik Nesso Sharon - 05/02/2022 9:30 AM EDT Radiology Service Progress Note Radiology Service Progress Note PATIENT NAME: Florecita Healy DATE OF SERVICE: May 02, 2022 TIME: 9:46 AM PATIENT IDENTITY VERIFICATION COMPLETED USING TWO (2) IDENTIFIERS: Name and Date of confirmedby patient verbally. FALL SCREENING: Has the patient had 2 falls in the last year or 1 fall with injury or currently using an Ambulatory Assistive Device (Walker, Cane, Wheelchair, Crutches, etc.)? No PATIENT GENDER DATA: Female. status: : No status: NO. PATIENT RELEVANT IMPLANT DATA REVIEWED: Not Applicable RADIOLOGY DEPARTMENT: Mammography PERIPHERAL IV DATA: Not applicable SIGNED BY: Erik Nesso Sharon May 02, 2022 9:46 AM documented in this encounterNorwalk [facility] Hospital05-05-2022 Miscellaneous Notes* Telephone Encounter - Wanda Anthony Ma - 03/16/2022 1:51 PM EDT Referral, demo, and most recent OV faxed to Dr. Borrero's office. Wanda Anthony Ma * Telephone Encounter - Tu Canela MD - 03/16/2022 1:48 PM EDT Placed. * Telephone Encounter - Aneta Griffith RN - 03/16/2022 1:35 PM EDT Patient reports she is scheduled with Dr. Borrero, GI, at [facility], on 04-17-22, for a consult for colonoscopy. Asking pcp to send referral, ov notes, and demographics to Dr. Borrero. documented in this encounterNorwalk Memorial Hospital05-15-2018 History of Past illness Narrative* Problem Noted Date Resolved Date Chronic midline low back pain without sciatica 0 03/26/2018 07/24/2019 Acute pain of right shoulder 11/29/2017 Low back pain radiating to right lower extremity 11/29/2017 07/24/2019 Chronic pain syndrome 09/27/2017 11/28/2018 Trigger finger, acquired 09/26/2017 019 Overview: Added automatically from request for surgery [id number] Colon cancer screening 12/07/2016 7 Chronic midline low back pain without sciatica 1 02/28/2017 Pain of left thumb 05/05/2016 02/28/2017 Pain in left shoulder 10/29/2015 02/28/2017 Bilateral ankle pain 10/01/2015 02/28/2017 Low back pain 08/06/2015 07/24/2019 Pain in right hip 08/06/2015 07/24/2019 Thoracic back pain 08/06/2015 02/28/2017 Cervicalgia 08/06/2015 02/28/2017 Eczematous dermatitis 10/18/2012 02/28/2017 Xerosis cutis 10/18/2012 02/28/2017 Pruritus 10/18/2012 02/28/2017 Excoriation 10/18/2012 02/28/2017 Osteoporosis 07/08/2012 08/09/2012 Chronic pain 06/03/2012 07/24/2019 Overview: Chronic pain management for back injury, neck arthritis- [facility] documented as of this encounter (statuses as of 03/16/2022) [facility] of Past illness Narrative* Problem Noted Date Resolved Date Chronic midline low back pain without sciatica 0 03/26/2018 07/24/2019 Acute pain of right shoulder 11/29/2017 Low back pain radiating to right lower extremity 11/29/2017 07/24/2019 Chronic pain syndrome 09/27/2017 11/28/2018 Trigger finger, acquired 09/26/2017 019 Overview: Added automatically from request for surgery [id number] Colon cancer screening 12/07/2016 7 Chronic midline low back pain without sciatica 1 02/28/2017 Pain of left thumb 05/05/2016 02/28/2017 Pain in left shoulder 10/29/2015 02/28/2017 Bilateral ankle pain 10/01/2015 02/28/2017 Low back pain 08/06/2015 07/24/2019 Pain in right hip 08/06/2015 07/24/2019 Thoracic back pain 08/06/2015 02/28/2017 Cervicalgia 08/06/2015 02/28/2017 Eczematous dermatitis 10/18/2012 02/28/2017 Xerosis cutis 10/18/2012 02/28/2017 Pruritus 10/18/2012 02/28/2017 Excoriation 10/18/2012 02/28/2017 Osteoporosis 07/08/2012 08/09/2012 Chronic pain 06/03/2012 07/24/2019 Overview: Chronic pain management for back injury, neck arthritis- [facility] documented as of this encounter (statuses as of 05/03/2022) [facility] of [facility] illness Narrative* Problem Noted Date Resolved Date Chronic midline low back pain without sciatica 0 03/26/2018 07/24/2019 Acute pain of right shoulder 11/29/2017 Low back pain radiating to right lower extremity 11/29/2017 07/24/2019 Chronic pain syndrome 09/27/2017 11/28/2018 Trigger finger, acquired 09/26/2017 019 Overview: Added automatically from request for surgery [id number] Colon cancer screening 12/07/2016 7 Chronic midline low back pain without sciatica 1 02/28/2017 Pain of left thumb 05/05/2016 02/28/2017 Pain in left shoulder 10/29/2015 02/28/2017 Bilateral ankle pain 10/01/2015 02/28/2017 Low back pain 08/06/2015 07/24/2019 Pain in right hip 08/06/2015 07/24/2019 Thoracic back pain 08/06/2015 02/28/2017 Cervicalgia 08/06/2015 02/28/2017 Eczematous dermatitis 10/18/2012 02/28/2017 Xerosis cutis 10/18/2012 02/28/2017 Pruritus 10/18/2012 02/28/2017 Excoriation 10/18/2012 02/28/2017 Osteoporosis 07/08/2012 08/09/2012 Chronic pain 06/03/2012 07/24/2019 Overview: Chronic pain management for back injury, neck arthritis- [facility] documented as of this encounter (statuses as of 05/04/2022) [facility] Narrative* Problem Noted Date Resolved Date Chronic midline low back pain without sciatica 0 03/26/2018 07/24/2019 Acute pain of right shoulder 11/29/2017 Low back pain radiating to right lower extremity 11/29/2017 07/24/2019 Chronic pain syndrome 09/27/2017 11/28/2018 Trigger finger, acquired 09/26/2017 019 Overview: Added automatically from request for surgery [id number] Colon cancer screening 12/07/2016 7 Chronic midline low back pain without sciatica 1 02/28/2017 Pain of left thumb 05/05/2016 02/28/2017 Pain in left shoulder 10/29/2015 02/28/2017 Bilateral ankle pain 10/01/2015 02/28/2017 Low back pain 08/06/2015 07/24/2019 Pain in right hip 08/06/2015 07/24/2019 Thoracic back pain 08/06/2015 02/28/2017 Cervicalgia 08/06/2015 02/28/2017 Eczematous dermatitis 10/18/2012 02/28/2017 Xerosis cutis 10/18/2012 02/28/2017 Pruritus 10/18/2012 02/28/2017 Excoriation 10/18/2012 02/28/2017 Osteoporosis 07/08/2012 08/09/2012 Chronic pain 06/03/2012 07/24/2019 Overview: Chronic pain management for back injury, neck arthritis- [facility] documented as of this encounter (statuses as of 05/17/2022) [facility] Narrative* Problem Noted Date Resolved Date Chronic midline low back pain without sciatica 0 03/26/2018 07/24/2019 Acute pain of right shoulder 11/29/2017 Low back pain radiating to right lower extremity 11/29/2017 07/24/2019 Chronic pain syndrome 09/27/2017 11/28/2018 Trigger finger, acquired 09/26/2017 019 Overview: Added automatically from request for surgery [id number] Colon cancer screening 12/07/2016 7 Chronic midline low back pain without sciatica 1 02/28/2017 Pain of left thumb 05/05/2016 02/28/2017 Pain in left shoulder 10/29/2015 02/28/2017 Bilateral ankle pain 10/01/2015 02/28/2017 Low back pain 08/06/2015 07/24/2019 Pain in right hip 08/06/2015 07/24/2019 Thoracic back pain 08/06/2015 02/28/2017 Cervicalgia 08/06/2015 02/28/2017 Eczematous dermatitis 10/18/2012 02/28/2017 Xerosis cutis 10/18/2012 02/28/2017 Pruritus 10/18/2012 02/28/2017 Excoriation 10/18/2012 02/28/2017 Osteoporosis 07/08/2012 08/09/2012 Chronic pain 06/03/2012 07/24/2019 Overview: Chronic pain management for back injury, neck arthritis- [facility] documented as of this encounter (statuses as of 05/17/2022) [facility] Narrative* Problem Noted Date Resolved Date Chronic midline low back pain without sciatica 0 03/26/2018 07/24/2019 Acute pain of right shoulder 11/29/2017 Low back pain radiating to right lower extremity 11/29/2017 07/24/2019 Chronic pain syndrome 09/27/2017 11/28/2018 Trigger finger, acquired 09/26/2017 019 Overview: Added automatically from request for surgery [id number] Colon cancer screening 12/07/2016 7 Chronic midline low back pain without sciatica 1 02/28/2017 Pain of left thumb 05/05/2016 02/28/2017 Pain in left shoulder 10/29/2015 02/28/2017 Bilateral ankle pain 10/01/2015 02/28/2017 Low back pain 08/06/2015 07/24/2019 Pain in right hip 08/06/2015 07/24/2019 Thoracic back pain 08/06/2015 02/28/2017 Cervicalgia 08/06/2015 02/28/2017 Eczematous dermatitis 10/18/2012 02/28/2017 Xerosis cutis 10/18/2012 02/28/2017 Pruritus 10/18/2012 02/28/2017 Excoriation 10/18/2012 02/28/2017 Osteoporosis 07/08/2012 08/09/2012 Chronic pain 06/03/2012 07/24/2019 Overview: Chronic pain management for back injury, neck arthritis- [facility] documented as of this encounter (statuses as of 05/17/2022) [facility] Narrative* Problem Noted Date Resolved Date Chronic midline low back pain without sciatica 0 03/26/2018 07/24/2019 Acute pain of right shoulder 11/29/2017 Low back pain radiating to right lower extremity 11/29/2017 07/24/2019 Chronic pain syndrome 09/27/2017 11/28/2018 Trigger finger, acquired 09/26/2017 019 Overview: Added automatically from request for surgery [id number] Colon cancer screening 12/07/2016 7 Chronic midline low back pain without sciatica 1 02/28/2017 Pain of left thumb 05/05/2016 02/28/2017 Pain in left shoulder 10/29/2015 02/28/2017 Bilateral ankle pain 10/01/2015 02/28/2017 Low back pain 08/06/2015 07/24/2019 Pain in right hip 08/06/2015 07/24/2019 Thoracic back pain 08/06/2015 02/28/2017 Cervicalgia 08/06/2015 02/28/2017 Eczematous dermatitis 10/18/2012 02/28/2017 Xerosis cutis 10/18/2012 02/28/2017 Pruritus 10/18/2012 02/28/2017 Excoriation 10/18/2012 02/28/2017 Osteoporosis 07/08/2012 08/09/2012 Chronic pain 06/03/2012 07/24/2019 Overview: Chronic pain management for back injury, neck arthritis- [facility] documented as of this encounter (statuses as of 06/07/2022) [facility] Narrative* Problem Noted Date Resolved Date Chronic midline low back pain without sciatica 0 03/26/2018 07/24/2019 Acute pain of right shoulder 11/29/2017 Low back pain radiating to right lower extremity 11/29/2017 07/24/2019 Chronic pain syndrome 09/27/2017 11/28/2018 Trigger finger, acquired 09/26/2017 019 Overview: Added automatically from request for surgery [id number] Colon cancer screening 12/07/2016 7 Chronic midline low back pain without sciatica 1 02/28/2017 Pain of left thumb 05/05/2016 02/28/2017 Pain in left shoulder 10/29/2015 02/28/2017 Bilateral ankle pain 10/01/2015 02/28/2017 Low back pain 08/06/2015 07/24/2019 Pain in right hip 08/06/2015 07/24/2019 Thoracic back pain 08/06/2015 02/28/2017 Cervicalgia 08/06/2015 02/28/2017 Eczematous dermatitis 10/18/2012 02/28/2017 Xerosis cutis 10/18/2012 02/28/2017 Pruritus 10/18/2012 02/28/2017 Excoriation 10/18/2012 02/28/2017 Osteoporosis 07/08/2012 08/09/2012 Chronic pain 06/03/2012 07/24/2019 Overview: [facility] (statuses as of 06/09/2022) [facility] Narrative* Problem Noted Date Resolved Date Chronic midline low back pain without sciatica 0 03/26/2018 07/24/2019 Acute pain of right shoulder 11/29/2017 Low back pain radiating to right lower extremity 11/29/2017 07/24/2019 Chronic pain syndrome 09/27/2017 11/28/2018 Trigger finger, acquired 09/26/2017 019 Overview: Added automatically from request for surgery [id number] Colon cancer screening 12/07/2016 7 Chronic midline low back pain without sciatica 1 02/28/2017 Pain of left thumb 05/05/2016 02/28/2017 Pain in left shoulder 10/29/2015 02/28/2017 Bilateral ankle pain 10/01/2015 02/28/2017 Low back pain 08/06/2015 07/24/2019 Pain in right hip 08/06/2015 07/24/2019 Thoracic back pain 08/06/2015 02/28/2017 Cervicalgia 08/06/2015 02/28/2017 Eczematous dermatitis 10/18/2012 02/28/2017 Xerosis cutis 10/18/2012 02/28/2017 Pruritus 10/18/2012 02/28/2017 Excoriation 10/18/2012 02/28/2017 Osteoporosis 07/08/2012 08/09/2012 Chronic pain 06/03/2012 07/24/2019 Overview: Chronic pain management for back injury, neck arthritis- [facility] documented as of this encounter (statuses as of 06/14/2022) [facility] History of Past illness Narrative* Problem Noted Date Resolved Date Chronic midline low back pain without sciatica 0 03/26/2018 07/24/2019 Acute pain of right shoulder 11/29/2017 Low back pain radiating to right lower extremity 11/29/2017 07/24/2019 Chronic pain syndrome 09/27/2017 11/28/2018 Trigger finger, acquired 09/26/2017 019 Overview: Added automatically from request for surgery [id number] Colon cancer screening 12/07/2016 7 Chronic midline low back pain without sciatica 1 02/28/2017 Pain of left thumb 05/05/2016 02/28/2017 Pain in left shoulder 10/29/2015 02/28/2017 Bilateral ankle pain 10/01/2015 02/28/2017 Low back pain 08/06/2015 07/24/2019 Pain in right hip 08/06/2015 07/24/2019 Thoracic back pain 08/06/2015 02/28/2017 Cervicalgia 08/06/2015 02/28/2017 Eczematous dermatitis 10/18/2012 02/28/2017 Xerosis cutis 10/18/2012 02/28/2017 Pruritus 10/18/2012 02/28/2017 Excoriation 10/18/2012 02/28/2017 Osteoporosis 07/08/2012 08/09/2012 Chronic pain 06/03/2012 07/24/2019 Overview: Chronic pain management for back injury, neck arthritis- [facility] documented as of this encounter (statuses as of 06/26/2022) [facility] History of Past illness Narrative* Problem Noted Date Resolved Date Chronic midline low back pain without sciatica 0 03/26/2018 07/24/2019 Acute pain of right shoulder 11/29/2017 Low back pain radiating to right lower extremity 11/29/2017 07/24/2019 Chronic pain syndrome 09/27/2017 11/28/2018 Trigger finger, acquired 09/26/2017 019 Overview: Added automatically from request for surgery [id number] Colon cancer screening 12/07/2016 7 Chronic midline low back pain without sciatica 1 02/28/2017 Pain of left thumb 05/05/2016 02/28/2017 Pain in left shoulder 10/29/2015 02/28/2017 Bilateral ankle pain 10/01/2015 02/28/2017 Low back pain 08/06/2015 07/24/2019 Pain in right hip 08/06/2015 07/24/2019 Thoracic back pain 08/06/2015 02/28/2017 Cervicalgia 08/06/2015 02/28/2017 Eczematous dermatitis 10/18/2012 02/28/2017 Xerosis cutis 10/18/2012 02/28/2017 Pruritus 10/18/2012 02/28/2017 Excoriation 10/18/2012 02/28/2017 Osteoporosis 07/08/2012 08/09/2012 Chronic pain 06/03/2012 07/24/2019 [facility]es as of [facility]/03/2022[facility] History of Past illness Narrative* Problem Noted Date Resolved Date Chronic midline low back pain without sciatica 0 03/26/2018 07/24/2019 Acute pain of right shoulder 11/29/2017 Low back pain radiating to right lower extremity 11/29/2017 07/24/2019 Chronic pain syndrome 09/27/2017 11/28/2018 Trigger finger, acquired 09/26/2017 019 Overview: Added automatically from request for surgery [id number] Colon cancer screening 12/07/2016 7 Chronic midline low back pain without sciatica 1 02/28/2017 Pain of left thumb 05/05/2016 02/28/2017 Pain in left shoulder 10/29/2015 02/28/2017 Bilateral ankle pain 10/01/2015 02/28/2017 Low back pain 08/06/2015 07/24/2019 Pain in right hip 08/06/2015 07/24/2019 Thoracic back pain 08/06/2015 02/28/2017 Cervicalgia 08/06/2015 02/28/2017 Eczematous dermatitis 10/18/2012 02/28/2017 Xerosis cutis 10/18/2012 02/28/2017 Pruritus 10/18/2012 02/28/2017 Excoriation 10/18/2012 02/28/2017 Osteoporosis 07/08/2012 08/09/2012 Chronic pain 06/03/2012 07/24/2019 Overview: [facility]statuses as of 07/25/2022) [facility] History of Past illness Narrative* Problem Noted Date Resolved Date Chronic midline low back pain without sciatica 0 03/26/2018 07/24/2019 Acute pain of right shoulder 11/29/2017 Low back pain radiating to right lower extremity 11/29/2017 07/24/2019 Chronic pain syndrome 09/27/2017 11/28/2018 Trigger finger, acquired 09/26/2017 019 Overview: Added automatically from request for surgery [id number] Colon cancer screening 12/07/2016 7 Chronic midline low back pain without sciatica 1 02/28/2017 Pain of left thumb 05/05/2016 02/28/2017 Pain in left shoulder 10/29/2015 02/28/2017 Bilateral ankle pain 10/01/2015 02/28/2017 Low back pain 08/06/2015 07/24/2019 Pain in right hip 08/06/2015 07/24/2019 Thoracic back pain 08/06/2015 02/28/2017 Cervicalgia 08/06/2015 02/28/2017 Eczematous dermatitis 10/18/2012 02/28/2017 Xerosis cutis 10/18/2012 02/28/2017 Pruritus 10/18/2012 02/28/2017 Excoriation 10/18/2012 02/28/2017 Osteoporosis 07/08/2012 08/09/2012 Chronic pain 06/03/2012 07/24/2019 Overview: Chronic pain management for back injury, neck arthritis- [facility] documented as of this encounter (statuses as of 07/25/2022) [facility] History of Past illness Narrative* Problem Noted Date Resolved Date Chronic midline low back pain without sciatica 0 03/26/2018 07/24/2019 Acute pain of right shoulder 11/29/2017 Low back pain radiating to right lower extremity 11/29/2017 07/24/2019 Chronic pain syndrome 09/27/2017 11/28/2018 Trigger finger, acquired 09/26/2017 019 Overview: Added automatically from request for surgery [id number] Colon cancer screening 12/07/2016 7 Chronic midline low back pain without sciatica 1 02/28/2017 Pain of left thumb 05/05/2016 02/28/2017 Pain in left shoulder 10/29/2015 02/28/2017 Bilateral ankle pain 10/01/2015 02/28/2017 Low back pain 08/06/2015 07/24/2019 Pain in right hip 08/06/2015 07/24/2019 Thoracic back pain 08/06/2015 02/28/2017 Cervicalgia 08/06/2015 02/28/2017 Eczematous dermatitis 10/18/2012 02/28/2017 Xerosis cutis 10/18/2012 02/28/2017 Pruritus 10/18/2012 02/28/2017 Excoriation 10/18/2012 02/28/2017 Osteoporosis 07/08/2012 08/09/2012 Chronic pain 06/03/2012 07/24/2019 Overview: Chronic pain management for back injury, neck arthritis- [facility] documented as of this encounter (statuses as of 11/05/2022) [facility] Diagnosis History of colonic polyps- Primary Personal history of colonic polyps [facility] Diagnosis Malignant neoplasm of upper-outer quadrant of left breast in female, estrogen receptor positive (HCC) Encounter for screening mammogram for high-risk patient [facility] Malignant neoplasm of upper-outer quadrant of left breast in female, estrogen receptor positive (HCC) Abdominal mass of other site Abdominal or pelvic swelling, mass, or lump, other specified site Intra-abdominal and pelvic swelling, mass and lump, unspecified site [facility] Diagnosis Left before treatment completed- Primary Personal history of noncompliance with medical treatment, presenting hazards to health [facility] Diagnosis Malignant neoplasm of upper-outer quadrant of left breast in female, estrogen receptor positive (HCC)- Primary [facility] Diagnosis Primary hypertension- Primary Unspecified essential hypertension Ectatic aorta (HCC) Aortic ectasia, unspecified site Fatty liver 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 Venous insufficiency Unspecified venous (peripheral) insufficiency [facility] Diagnosis Hyponatremia- Primary Hyposmolality and/or hyponatremia documented in this encounter [facility] note* Diagnosis Primary hypertension- Primary Unspecified essential hypertension [facility] Diagnosis Primary hypertension- Primary Unspecified essential hypertension [facility] Diagnosis Cellulitis of right leg- Primary Cellulitis and abscess of leg, except foot Chronic obstructive pulmonary disease, unspecified COPD type (HCC) Essential hypertension, benign Hyperlipidemia, unspecified hyperlipidemia type Psoriasis Other psoriasis Other chronic pain [facility] Diagnosis Cellulitis of right leg- Primary Cellulitis and abscess of leg, except foot Chronic obstructive pulmonary disease, unspecified COPD type (HCC) Essential hypertension, benign Hyperlipidemia, unspecified hyperlipidemia type Psoriasis Other psoriasis Other chronic pain [facility] Diagnosis Venous (peripheral) insufficiency- Primary Unspecified venous (peripheral) insufficiency Peripheral arterial disease (HCC) Peripheral vascular disease, unspecified documented in this encounter [facility] note* Diagnosis Primary hypertension Unspecified essential hypertension [facility] Diagnosis History of Jovana thyroiditis Personal history of other endocrine, metabolic, and immunity disorders documented in this encounter [facility] note* Diagnosis Primary hypertension- Primary Unspecified essential hypertension Hyperlipidemia, unspecified hyperlipidemia type Postoperative hypothyroidism Postsurgical hypothyroidism [facility] Diagnosis Primary hypertension Unspecified essential hypertension documented in this encounter [facility] note* Diagnosis Symptomatic varicose veins of both lower extremities- Primary Varicose veins of lower extremities with other complications documented in this encounter [facility] note* Diagnosis Hyperglycemia- Primary Other abnormal glucose Venous insufficiency Unspecified venous (peripheral) insufficiency Urinary urgency Urgency of urination Primary hypertension Unspecified essential hypertension Hyperlipidemia, unspecified hyperlipidemia type Urinary retention Retention of urine, unspecified Stage 3a chronic kidney disease (HCC) Postoperative hypothyroidism Postsurgical hypothyroidism Hernia of abdominal wall Ventral hernia, unspecified, without mention of obstruction or gangrene [facility] Diagnosis Microscopic hematuria- Primary [facility] Diagnosis Hernia of abdominal wall Ventral hernia, unspecified, without mention of obstruction or gangrene [facility] Diagnosis Personal history of breast cancer- Primary Personal history of malignant neoplasm of breast Encounter for screening mammogram for high-risk patient Stage 3a chronic kidney disease (HCC) [facility] Diagnosis Primary hypertension- Primary Unspecified essential hypertension [facility] Diagnosis Cellulitis of right leg- Primary Cellulitis and abscess of leg, except foot Chronic obstructive pulmonary disease, unspecified COPD type (HCC) Essential hypertension, benign Hyperlipidemia, unspecified hyperlipidemia type Psoriasis Other psoriasis Other chronic pain Malignant neoplasm of upper-outer quadrant of left breast in female, estrogen receptor positive (HCC) [facility] Diagnosis Hernia of abdominal wall- Primary Ventral hernia, unspecified, without mention of obstruction or gangrene [facility] Diagnosis Primary hypertension Unspecified essential hypertension [facility] Diagnosis Primary hypertension- Primary Unspecified essential hypertension [facility] Diagnosis Symptomatic varicose veins of both lower extremities- Primary Varicose veins of lower extremities with other complications [facility] Diagnosis Encounter for immunization- Primary Need for other specified prophylactic vaccination against single bacterial disease Primary hypertension Unspecified essential hypertension Hyperglycemia Other abnormal glucose Hyperlipidemia, unspecified hyperlipidemia type Stage 3 chronic kidney disease, unspecified whether stage 3a or 3b CKD (HCC) Postoperative hypothyroidism Postsurgical hypothyroidism Peripheral arterial disease (HCC) Peripheral vascular disease, unspecified Malignant neoplasm of upper-outer quadrant of left breast in female, estrogen receptor positive (HCC) documented in this encounter [facility] note* Diagnosis Personal history of breast cancer- Primary Personal history of malignant neoplasm of breast Encounter for screening mammogram for high-risk patient documented in this encounter [facility] for referral (narrative)* Diagnostic Procedure Only (Routine) - Closed Specialty Diagnoses / Procedures Referred By Griselda french Referred To Contact [facility] Diagnoses Malignant neoplasm of upper-outer quadrant of left breast in female, estrogen receptor positive (HCC) Encounter for screening mammogram for high-risk patient Procedures TITO SCREENING SCREENING MAMMOGRAPHY BI 2-VIEW BREAST INC Nevin Tilley, CHANDLER.[employer] [address] [place] [address] [facility] [address] [place] [address] Referral ID Status Reason Start Date Expiration Date V isits Requested Visits Authorized [id number] Closed Auto-Generate d Referral 01/05/2022 02/04/2023 1 1 [facility] for referral (narrative)* Diagnostic Procedure Only (Routine) - Authorized Specialty Diagnoses / Procedures Referred By Contac t Referred To Contact [facility] Diagnoses Renal cyst Procedures US KIDNEY/BLADDER US RETROPERITONEAL REAL TIME W/IMAGE COMPLETE Tu Canela MD [address] [place] [address] [facility] Referral ID Status Reason Start Date Expiration Date Visits Requested Visits Authorized [id number] Authorized Auto-Generat ed Referral 12/15/2022 07/14/2023 1 1 [facility] for referral (narrative)* Outpatient Procedure (Routine) - Authorized Specialty Diagnoses / Procedures Referred By Contac t Referred To Contact [facility] Diagnoses Peripheral arterial disease (HCC) Procedures PVR ANK/DAUGHERTY/TOE [facility] NON-INVAS PHYSIOLOGIC STD EXTREMITY ART 2 LEVEL Jannie Proctor DO [address] [place] [address] [facility] [address] [address] Referral ID Status Reason Start Date Expiration Date Visits Requested Visits Authorized [id number] Authorized Auto-Generat ed Referral 01/09/2023 01/09/2024 1 1 * Outpatient Procedure (Routine) - Pending Review Specialty Diagnoses / Procedures Referred By Contac t Referred To Contact [facility] Diagnoses Venous (peripheral) insufficiency Procedures US VENOUS INCOMPETENCY [facility] DUP-SCAN XTR VEINS COMPLETE BILATERAL STUDY Jannie Proctor DO [address] [place] [address] [address] Referral ID Status Reason Start Date Expiration Date Visits Requested Visits Authorized [id number] Pending Review Auto-Generat ed Referral 01/09/2023 01/09/2024 1 1 [facility] for referral (narrative)* Diagnostic Procedure Only (Routine) - Authorized Specialty Diagnoses / Procedures Referred By Contac t Referred To Contact [facility] Diagnoses Personal history of breast cancer Encounter for screening mammogram for high-risk patient Procedures TITO SCREENING SCREENING MAMMOGRAPHY BI 2-VIEW BREAST INC Nevin Tilley APRN.GRADU[employer] [address] [place] [address] [facility] [address] [place] [address] Referral ID Status Reason Start Date Expiration Date Visits Requested Visits Authorized [id number] Authorized Auto-Generat ed Referral 03/22/2023 04/20/2024 1 1 [facility] for referral (narrative)* Diagnostic Procedure Only (Routine) - Authorized Specialty Diagnoses / Procedures Referred By Contac t Referred To Contact [facility] Diagnoses Personal history of breast cancer Encounter for screening mammogram for high-risk patient Procedures TITO SCREENING SCREENING MAMMOGRAPHY BI 2-VIEW BREAST INC Nevin Tilley APRN.GR[employer] [address] [place] [address] [facility] [address] [place] [address] Referral ID Status Reason Start Date Expiration Date Visits Requested Visits Authorized [id number] Authorized Auto-Generat ed Referral 3 10/24/2024 1 1 [facility] Reason for Referral Specialty Diagnoses / Procedures Referred By Contac t Referred To Contact Gastroenterology Diagnoses History of colonic polyps Procedures CONSULT TO GASTROENTEROLOGY OFFICE/OUTPATIENT NEW HIGH MDM 60-74 MINUTES Tu Canela MD [address] [place] [address] Referral ID Status Reason Start Date Expiration Date Visits Requested Visits Authorized [id number] Pending Review PCP Requested Referral 03/16/2022 03/16/2023 1 1 Specialty Diagnoses / Procedures Referred By Contac t Referred To Contact CT IMAGING Diagnoses Malignant neoplasm of upper-outer quadrant of left breast in female, estrogen receptor positive (HCC) Abdominal mass of other site Intra-abdominal and pelvic swelling, mass and lump, unspecified site Procedures CT ABD/PEL W IVCON CT ABD & PELVIS W/CONTRAST Tu Canela MD [address] [place] [address] Ct Imaging Referral ID Status Reason Start Date Expiration Date V isits Requested Visits Authorized [id number] Closed Auto-Generate d Referral 05/10/2022 06/09/2023 2 2 Specialty Diagnoses / Procedures Referred By Griselda t Referred To Contact General Surgery Diagnoses Hernia of abdominal wall Procedures CONSULT TO GENERAL SURGERY OFFICE/OUTPATIENT [facility] 60-74 MINUTES Tu Canela MD [address] [place] [address] Referral ID Status Reason Start Date Expiration Date Visits Requested Visits Authorized [id number] Pending Review PCP Requested Referral 03/02/2023 03/01/2024 1 1 Specialty Diagnoses / Procedures Referred By Contac t Referred To Contact Urology Diagnoses Urinary urgency Urinary retention Procedures CONSULT TO UROLOGY OFFICE/OUTPATIENT [facility] 60-74 MINUTES Tu Canela MD [address] [place] [address] Referral ID Status Reason Start Date Expiration Date Visits Requested Visits Authorized [id number] Pending Review PCP Requested Referral 03/02/2023 03/01/2024 1 1 Advance Directives No Advanced Directives Records FoundDocuments on File Type Date Recorded Patient Eradicator Expl anation Advance Directive(s) 12/16/2019 2:30 PM Advance Directive(s) 10/02/2019 12:23 PM Advance Directive(s) 08/01/2019 7:02 AM Advance Directive(s) 03/11/2019 10:41 AM Advance Directive(s) 12/31/2018 12:31 PM Advance Directive(s) 11/21/2018 10:53 AM Advance Directive(s) 09/23/2018 11:35 AM Advance Directive(s) 10/11/2017 11:19 AM Advance Directive(s) 08/22/2017 10:27 AM Advance Directive(s) 12/07/2016 10:24 AM Documents on File Type Date Recorded Patient Eradicator Expl anation Advance Directive(s) 12/16/2019 2:30 PM Advance Directive(s) 10/02/2019 12:23 PM Advance Directive(s) 08/01/2019 7:02 AM Advance Directive(s) 03/11/2019 10:41 AM Advance Directive(s) 12/31/2018 12:31 PM Advance Directive(s) 11/21/2018 10:53 AM Advance Directive(s) 09/23/2018 11:35 AM Advance Directive(s) 10/11/2017 11:19 AM Advance Directive(s) 08/22/2017 10:27 AM Advance Directive(s) 12/07/2016 10:24 AM Latest Code Status on File Code Status Date Activated Date Inactivated Comments Full Code 11/05/2022 7:52 PM 11/15/2022 12:08 PM Full Code Order Discussed With: Patient Latest Code Status on File Code Status Date Activated Date Inactivated Comments Full Code 11/05/2022 7:52 PM 11/15/2022 12:08 PM Latest Code Status on File Code Status Date Activated Date Inactivated Comments Full Code 11/05/2022 7:52 PM 11/15/2022 12:08 PM Question Answer Comments Full Code Order Discussed With: Patient Latest Code Status on File Code Status Date Activated Date Inactivated Comments Full Code 11/05/2022 7:52 PM 11/15/2022 12:08 PM Question Answer Comments Full Code Order Discussed With: Patient Health Concerns Infection Onset Date Last Indicated Resolved Time COVID-19 Rule-Out 11/05/2022 11/05/2022 11/05/2022 2:27 PM EST Summary Purpose Family History No Family History Records FoundNo Family History Records Found Additional Source Comments Source Comments (unrecognize d section and content) In the event this informatio n is protected by the Federal Confidentiality of Alcohol and Drug Abuse Patient Records regulations: The Federal rules restrict any use of the information to criminally investigate or prosecute any alcohol or drug abuse patient.[facility] the event this information is protected by the Federal Confidentiality of Alcohol and Drug Abuse Patient Records regulations: The Federal rules restrict any use of the information to criminally investigate or prosecute any alcohol or drug abuse patient.[facility] the event this information is protected by the Federal Confidentiality of Alcohol and Drug Abuse Patient Records regulations: The Federal rules restrict any use of the information to criminally investigate or prosecute any alcohol or drug abuse patient.[facility] the event this information is protected by the Federal Confidentiality of Alcohol and Drug Abuse Patient Records regulations: The Federal rules restrict any use of the information to criminally investigate or prosecute any alcohol or drug abuse patient.[facility] the event this information is protected by the Federal Confidentiality of Alcohol and Drug Abuse Patient Records regulations: The Federal rules restrict any use of the information to criminally investigate or prosecute any alcohol or drug abuse patient.[facility] the event this information is protected by the Federal Confidentiality of Alcohol and Drug Abuse Patient Records regulations: The Federal rules restrict any use of the information to criminally investigate or prosecute any alcohol or drug abuse patient.[facility] the event this information is protected by the Federal Confidentiality of Alcohol and Drug Abuse Patient Records regulations: The Federal rules restrict any use of the information to criminally investigate or prosecute any alcohol or drug abuse patient.[facility] the event this information is protected by the Federal Confidentiality of Alcohol and Drug Abuse Patient Records regulations: The Federal rules restrict any use of the information to criminally investigate or prosecute any alcohol or drug abuse patient.[facility] the event this information is protected by the Federal Confidentiality of Alcohol and Drug Abuse Patient Records regulations: The Federal rules restrict any use of the information to criminally investigate or prosecute any alcohol or drug abuse patient.[facility] the event this information is protected by the Federal Confidentiality of Alcohol and Drug Abuse Patient Records regulations: The Federal rules restrict any use of the information to criminally investigate or prosecute any alcohol or drug abuse patient.[facility] the event this information is protected by the Federal Confidentiality of Alcohol and Drug Abuse Patient Records regulations: The Federal rules restrict any use of the information to criminally investigate or prosecute any alcohol or drug abuse patient.[facility] the event this information is protected by the Federal Confidentiality of Alcohol and Drug Abuse Patient Records regulations: The Federal rules restrict any use of the information to criminally investigate or prosecute any alcohol or drug abuse patient.[facility] HospitalIn the event this information is protected by the Federal Confidentiality of Alcohol and Drug Abuse Patient Records regulations: The Federal rules restrict any use of the information to criminally investigate or prosecute any alcohol or drug abuse patient.[facility] HospitalIn the event this information is protected by the Federal Confidentiality of Alcohol and Drug Abuse Patient Records regulations: The Federal rules restrict any use of the information to criminally investigate or prosecute any alcohol or drug abuse patient.[facility] HospitalIn the event this information is protected by the Federal Confidentiality of Alcohol and Drug Abuse Patient Records regulations: The Federal rules restrict any use of the information to criminally investigate or prosecute any alcohol or drug abuse patient.[facility] HospitalIn the event this information is protected by the Federal Confidentiality of Alcohol and Drug Abuse Patient Records regulations: The Federal rules restrict any use of the information to criminally investigate or prosecute any alcohol or drug abuse patient.[facility] HospitalIn the event this information is protected by the Federal Confidentiality of Alcohol and Drug Abuse Patient Records regulations: The Federal rules restrict any use of the information to criminally investigate or prosecute any alcohol or drug abuse patient.[facility] HospitalIn the event this information is protected by the Federal Confidentiality of Alcohol and Drug Abuse Patient Records regulations: The Federal rules restrict any use of the information to criminally investigate or prosecute any alcohol or drug abuse patient.[facility] HospitalIn the event this information is protected by the Federal Confidentiality of Alcohol and Drug Abuse Patient Records regulations: The Federal rules restrict any use of the information to criminally investigate or prosecute any alcohol or drug abuse patient.[facility] HospitalIn the event this information is protected by the Federal Confidentiality of Alcohol and Drug Abuse Patient Records regulations: The Federal rules restrict any use of the information to criminally investigate or prosecute any alcohol or drug abuse patient.[facility] HospitalIn the event this information is protected by the Federal Confidentiality of Alcohol and Drug Abuse Patient Records regulations: The Federal rules restrict any use of the information to criminally investigate or prosecute any alcohol or drug abuse patient.[facility] HospitalIn the event this information is protected by the Federal Confidentiality of Alcohol and Drug Abuse Patient Records regulations: The Federal rules restrict any use of the information to criminally investigate or prosecute any alcohol or drug abuse patient.[facility] HospitalIn the event this information is protected by the Federal Confidentiality of Alcohol and Drug Abuse Patient Records regulations: The Federal rules restrict any use of the information to criminally investigate or prosecute any alcohol or drug abuse patient.[facility] HospitalIn the event this information is protected by the Federal Confidentiality of Alcohol and Drug Abuse Patient Records regulations: The Federal rules restrict any use of the information to criminally investigate or prosecute any alcohol or drug abuse patient.[facility] HospitalIn the event this information is protected by the Federal Confidentiality of Alcohol and Drug Abuse Patient Records regulations: The Federal rules restrict any use of the information to criminally investigate or prosecute any alcohol or drug abuse patient.[facility] HospitalIn the event this information is protected by the Federal Confidentiality of Alcohol and Drug Abuse Patient Records regulations: The Federal rules restrict any use of the information to criminally investigate or prosecute any alcohol or drug abuse patient.[facility] HospitalIn the event this information is protected by the Federal Confidentiality of Alcohol and Drug Abuse Patient Records regulations: The Federal rules restrict any use of the information to criminally investigate or prosecute any alcohol or drug abuse patient.[facility] HospitalIn the event this information is protected by the Federal Confidentiality of Alcohol and Drug Abuse Patient Records regulations: The Federal rules restrict any use of the information to criminally investigate or prosecute any alcohol or drug abuse patient.[facility] HospitalIn the event this information is protected by the Federal Confidentiality of Alcohol and Drug Abuse Patient Records regulations: The Federal rules restrict any use of the information to criminally investigate or prosecute any alcohol or drug abuse patient.[facility] HospitalIn the event this information is protected by the Federal Confidentiality of Alcohol and Drug Abuse Patient Records regulations: The Federal rules restrict any use of the information to criminally investigate or prosecute any alcohol or drug abuse patient.[facility] HospitalIn the event this information is protected by the Federal Confidentiality of Alcohol and Drug Abuse Patient Records regulations: The Federal rules restrict any use of the information to criminally investigate or prosecute any alcohol or drug abuse patient.[facility] HospitalIn the event this information is protected by the Federal Confidentiality of Alcohol and Drug Abuse Patient Records regulations: The Federal rules restrict any use of the information to criminally investigate or prosecute any alcohol or drug abuse patient.[facility] the event this information is protected by the Federal Confidentiality of Alcohol and Drug Abuse Patient Records regulations: The Federal rules restrict any use of the information to criminally investigate or prosecute any alcohol or drug abuse patient.[facility] HospitalIn the event this information is protected by the Federal Confidentiality of Alcohol and Drug Abuse Patient Records regulations: The Federal rules restrict any use of the information to criminally investigate or prosecute any alcohol or drug abuse patient.[facility] HospitalIn the event this information is protected by the Federal Confidentiality of Alcohol and Drug Abuse Patient Records regulations: The Federal rules restrict any use of the information to criminally investigate or prosecute any alcohol or drug abuse patient.[facility] HospitalIn the event this information is protected by the Federal Confidentiality of Alcohol and Drug Abuse Patient Records regulations: The Federal rules restrict any use of the information to criminally investigate or prosecute any alcohol or drug abuse patient.[facility] HospitalIn the event this information is protected by the Federal Confidentiality of Alcohol and Drug Abuse Patient Records regulations: The Federal rules restrict any use of the information to criminally investigate or prosecute any alcohol or drug abuse patient.[facility] HospitalIn the event this information is protected by the Federal Confidentiality of Alcohol and Drug Abuse Patient Records regulations: The Federal rules restrict any use of the information to criminally investigate or prosecute any alcohol or drug abuse patient.[facility] HospitalIn the event this information is protected by the Federal Confidentiality of Alcohol and Drug Abuse Patient Records regulations: The Federal rules restrict any use of the information to criminally investigate or prosecute any alcohol or drug abuse patient.[facility] HospitalIn the event this information is protected by the Federal Confidentiality of Alcohol and Drug Abuse Patient Records regulations: The Federal rules restrict any use of the information to criminally investigate or prosecute any alcohol or drug abuse patient.[facility] HospitalIn the event this information is protected by the Federal Confidentiality of Alcohol and Drug Abuse Patient Records regulations: The Federal rules restrict any use of the information to criminally investigate or prosecute any alcohol or drug abuse patient.[facility] HospitalIn the event this information is protected by the Federal Confidentiality of Alcohol and Drug Abuse Patient Records regulations: The Federal rules restrict any use of the information to criminally investigate or prosecute any alcohol or drug abuse patient.[facility] HospitalIn the event this information is protected by the Federal Confidentiality of Alcohol and Drug Abuse Patient Records regulations: The Federal rules restrict any use of the information to criminally investigate or prosecute any alcohol or drug abuse patient.[facility] HospitalIn the event this information is protected by the Federal Confidentiality of Alcohol and Drug Abuse Patient Records regulations: The Federal rules restrict any use of the information to criminally investigate or prosecute any alcohol or drug abuse patient.[facility] HospitalIn the event this information is protected by the Federal Confidentiality of Alcohol and Drug Abuse Patient Records regulations: The Federal rules restrict any use of the information to criminally investigate or prosecute any alcohol or drug abuse patient.[facility] HospitalIn the event this information is protected by the Federal Confidentiality of Alcohol and Drug Abuse Patient Records regulations: The Federal rules restrict any use of the information to criminally investigate or prosecute any alcohol or drug abuse patient.[facility] HospitalIn the event this information is protected by the Federal Confidentiality of Alcohol and Drug Abuse Patient Records regulations: The Federal rules restrict any use of the information to criminally investigate or prosecute any alcohol or drug abuse patient.[facility] HospitalIn the event this information is protected by the Federal Confidentiality of Alcohol and Drug Abuse Patient Records regulations: The Federal rules restrict any use of the information to criminally investigate or prosecute any alcohol or drug abuse patient.[facility] HospitalIn the event this information is protected by the Federal Confidentiality of Alcohol and Drug Abuse Patient Records regulations: The Federal rules restrict any use of the information to criminally investigate or prosecute any alcohol or drug abuse patient.[facility] HospitalIn the event this information is protected by the Federal Confidentiality of Alcohol and Drug Abuse Patient Records regulations: The Federal rules restrict any use of the information to criminally investigate or prosecute any alcohol or drug abuse patient.[facility] HospitalIn the event this information is protected by the Federal Confidentiality of Alcohol and Drug Abuse Patient Records regulations: The Federal rules restrict any use of the information to criminally investigate or prosecute any alcohol or drug abuse patient.[facility] HospitalIn the event this information is protected by the Federal Confidentiality of Alcohol and Drug Abuse Patient Records regulations: The Federal rules restrict any use of the information to criminally investigate or prosecute any alcohol or drug abuse patient.[facility] HospitalIn the event this information is protected by the Federal Confidentiality of Alcohol and Drug Abuse Patient Records regulations: The Federal rules restrict any use of the information to criminally investigate or prosecute any alcohol or drug abuse patient.[facility] Reason for Visit (unrecogniz ed section and content) Specialty Diagnoses / Procedures Referred By Griselda french Referred To Contact CT IMAGING Diagnoses Malignant neoplasm of upper-outer quadrant of left breast in female, estrogen receptor positive (HCC) Abdominal mass of other site Intra-abdominal and pelvic swelling, mass and lump, unspecified site Procedures CT ABD/PEL W IVCON CT ABD & PELVIS W/CONTRAST Tu Canela MD [address] [place] [address] Ct Imaging Referral ID Status Reason Start Date Expiration Date V isits Requested Visits Authorized [id number] Closed Auto-Generate d Referral 05/10/2022 06/09/2023 2 2 Reason Comments Colonoscopy appt Reason Comments Radiology Mammogram Specialty Diagnoses / Procedures Referred By Conttoño t Referred To Contact BR IMAGING Diagnoses Malignant neoplasm of upper-outer quadrant of left breast in female, estrogen receptor positive (HCC) Encounter for screening mammogram for high-risk patient Procedures TITO SCREENING SCREENING MAMMOGRAPHY BI 2-VIEW BREAST INC CAD Nevin Fajardo APRN.[employer] [address] [place] [address] [facility] [address] [place] [address] Referral ID Status Reason Start Date Expiration Date V isits Requested Visits Authorized [id number] Closed Auto-Generate d Referral 01/05/2022 02/04/2023 1 1 Reason Comments Results Reason Comments Follow Up still feels mass in abd Edema swelling in her feet increasing again Reason Comments Established Patient Reason Comments Hypertension F/U Reason Comments Blood Pressure Check Reason Comments Blood Pressure Reason Comments FYI-No Action Needed Reason Onset Date Comments Transition Of Care 11/16/2022 TCM Initial O utreach: [facility] 11/15/22, Cellulitis of right lower leg Reason Comments Wound Check right foot Reason Comments Wound Check Right foot Reason Onset Date Comments Community Monitoring Outreach 01/18/2023 En rollment H@H Reason Comments New Patient Reason Onset Date Comments Refill Request 02/15/2023 Reason Onset Date Comments Community Monitoring Outreach 02/15/2023 Te lephonic Outreach CDM Home Monitoring Reason Comments Patient Question Any lab work needed prioir to OV 02/21/23? Reason Comments Blood Pressure Check Appointment Reason Comments Insurance Authorization Compression stoc roxanna Reason Comments Follow Up Reason Comments Consult Hernia Specialty Diagnoses / Procedures Referred By Conttoño t Referred To Contact General Surgery Diagnoses Hernia of abdominal wall Procedures CONSULT TO GENERAL SURGERY OFFICE/OUTPATIENT NEW HIGH MDM 60-74 MINUTES Tu Canela MD [address] [place] [address] Referral ID Status Reason Start Date Expiration Date Visits Requested Visits Authorized [id number] Pending Review PCP Requested Referral 03/02/2023 03/01/2024 1 1 Reason Onset Date Comments Community Monitoring Outreach 03/19/2023 Te lephonic Outreach CDM Home Monitoring Reason Comments 10 month check Reason Onset Date Comments Community Monitoring Outreach 04/16/2023 Te lephonic Outreach CDM Home Monitoring Reason Comments Follow Up Reason Comments Wound Check Right dorsal foot Reason Comments pre-procedure call Reason Onset Date Comments [facility] 05/22/2023 Telephonic Outre ach Reason Onset Date Comments [facility] 05/23/2023 Telephonic Outre ach Reason Comments Follow Up Hernia follow up Reason Comments Recheck 1 month follow up Reason Onset Date Comments [facility] 06/25/2023 Telephonic Outre ach Reason Onset Date Comments [facility] 06/26/2023 Telephonic Outre ach Reason Onset Date Comments [facility] 07/24/2023 Telephonic Outre ach Reason Comments Hypertension Medication follow up Reason Onset Date Comments [facility] 08/17/2023 Telephonic Outre ach Reason Onset Date Comments [facility] 09/24/2023 Telephonic Outre ach Reason Comments Established Patient Reason Onset Date Comments [facility] 10/23/2023 Telephonic Outre ach Reason Onset Date Comments [facility] 10/24/2023 Telephonic Outre ach Care Teams (unrecognized sec tion and content) Commodity Manager Relationship Specialty Start Date End Date Tu Canela MD [address] [place] [address] PCP - General Family Practice 07/08/12 Commodity Manager Relationship Specialty Start Date End Date Tu Canela MD [address] [place], [place] [id number] PCP - General Family Practice 07/08/12 Commodity Manager Relationship Specialty Start Date End Date Tu Canela MD [address] [place], [place] [id number] PCP - General Family Practice 07/08/12 Commodity Manager Relationship Specialty Start Date End Date Tu Canela MD [address] [place] [address] PCP - General Family Practice 07/08/12 Commodity Manager Relationship Specialty Start Date End Date Tu Canela MD [address] [place] [address] PCP - General Family Practice 07/08/12 Commodity Manager Relationship Specialty Start Date End Date Tu Canela MD [address] [place] [address] PCP - General Family Practice 07/08/12 Commodity Manager Relationship Specialty Start Date End Date Tu Canela MD [address] [place] [address] PCP - General Family Practice 07/08/12 Commodity Manager Relationship Specialty Start Date End Date Tu Canela MD [address] [place] [address] PCP - General Family Practice 07/08/12 Commodity Manager Relationship Specialty Start Date End Date Tu Canela MD [address] [place] [address] PCP - General Family Medicine 07/08/12 Commodity Manager Relationship Specialty Start Date End Date Tu Canela MD [address] [place] [address] PCP - General Family Medicine 07/08/12 Commodity Manager Relationship Specialty Start Date End Date Tu Canela MD [address] [place] [address] PCP - General Family Medicine 07/08/12 Commodity Manager Relationship Specialty Start Date End Date Tu Canela MD [address] [place] [address] PCP - General Family Medicine 07/08/12 Commodity Manager Relationship Specialty Start Date End Date Tu Canela MD [address] [place] [address] PCP - General Family Medicine 07/08/12 Commodity Manager Relationship Specialty Start Date End Date Tu Canela MD [address] [facility] [place] [address] PCP - General Family Medicine 07/08/12 Guerda Francisco, HERNESTO [address] [place] [address] [employer] 01/18/23 Commodity Manager Relationship Specialty Start Date End Date Tu Canela MD [address] [facility] [address] PCP - General Family Medicine 07/08/12 Commodity Manager Relationship Specialty Start Date End Date Tu Canela MD [address] [facility] [address] PCP - General Family Medicine 07/08/12 Guerda Francisco RN [address] [facility] [place] [address] [employer] 01/18/23 Commodity Manager Relationship Specialty Start Date End Date Tu Canela MD [address] [facility] [address] PCP - General Family Medicine 07/08/12 Guerda Francisco RN [address] [facility] [place] [address] [employer] 01/18/23 Commodity Manager Relationship Specialty Start Date End Date Tu Canela MD [address] [facility] [address] PCP - General Family Medicine 07/08/12 Guerda Francisco RN [address] [facility] [place] [address] [employer] 01/18/23 Commodity Manager Relationship Specialty Start Date End Date Tu Canela MD [address] [facility] [address] PCP - General Family Medicine 07/08/12 Guerda Francisco RN [address] [facility] [place] [address] [employer] 01/18/23 Commodity Manager Relationship Specialty Start Date End Date Tu Canela MD [address] [facility] [address] PCP - General Family Medicine 07/08/12 Guerda Francisco RN [address] [facility] [place] [address] [employer] 01/18/23 Commodity Manager Relationship Specialty Start Date End Date Tu Canela MD [address] [facility] [address] PCP - General Family Medicine 07/08/12 Guerda Francisco RN [address] [facility] [place] [address] [employer] 01/18/23 Commodity Manager Relationship Specialty Start Date End Date Tu Canela MD [address] [facility] [address] PCP - General Family Medicine 07/08/12 Guerda Francisco RN [address] [facility] [place] [address] [employer] 01/18/23 Commodity Manager Relationship Specialty Start Date End Date Tu Canela MD [address] [facility] [address] PCP - General Family Medicine 07/08/12 Guerda Francisco RN [address] [facility] [place] [address] [employer] 01/18/23 Commodity Manager Relationship Specialty Start Date End Date Tu Canela MD [address] [facility] [address] PCP - General Family Medicine 07/08/12 Guerda Francisco RN [address] [facility] [place] [address] [employer] 01/18/23 Commodity Manager Relationship Specialty Start Date End Date Tu Canela MD [address] [facility] [address] PCP - General Family Medicine 07/08/12 Bhupinder Boucher, staffing managerLaborer Stores 04/23/23 Commodity Manager Relationship Specialty Start Date End Date Tu Canela MD [address] [facility] [address] PCP - General Family Medicine 07/08/12 Bhupinder Boucher, staffing managerLaborer Stores 04/23/23 Commodity Manager Relationship Specialty Start Date End Date Tu Canela MD [address] [facility] [place] [address] PCP - General Family Medicine 07/08/12 Bhupinder Boucher, staffing managerLaborer Stores 04/23/23 Commodity Manager Relationship Specialty Start Date End Date Tu Canela MD [address] [facility] [address] PCP - General Family Medicine 07/08/12 Bhupinder Bocuher, staffing managerLaborer Stores 04/23/23 Commodity Manager Relationship Specialty Start Date End Date Tu Canela MD [address] [facility] [address] PCP - General Family Medicine 07/08/12 Bhupinder Boucher, staffing managerLaborer Stores 04/23/23 Commodity Manager Relationship Specialty Start Date End Date Tu Canela MD [address] [facility] [address] PCP - General Family Medicine 07/08/12 Bhupinder Boucher, staffing managerLaborer Stores 04/23/23 Commodity Manager Relationship Specialty Start Date End Date Tu Canela MD [address] [facility] [address] PCP - General Family Medicine 07/08/12 Bhupinder Boucher, staffing managerLaborer Stores 04/23/23 Commodity Manager Relationship Specialty Start Date End Date Tu Canela MD [address] [facility] [address] PCP - General Family Medicine 07/08/12 Bhupinder Boucher, staffing managerLaborer Stores 04/23/23 Commodity Manager Relationship Specialty Start Date End Date Tu Canela MD [address] [facility] [place] [address] PCP - General Family Medicine 07/08/12 Bhupinder Boucher, staffing managerLaborer Stores 04/23/23 Commodity Manager Relationship Specialty Start Date End Date Tu Canela MD [address] [facility] [place] [address] PCP - General Family Medicine 07/08/12 Bhupinder Boucher, staffing managerLaborer Stores 04/23/23 Commodity Manager Relationship Specialty Start Date End Date Tu Canela MD [address] [facility] [place] [address] PCP - General Family Medicine 07/08/12 Bhupinder Boucher, staffing managerLaborer Stores 04/23/23 Commodity Manager Relationship Specialty Start Date End Date Tu Canela MD [address] [facility] [place] [address] PCP - General Family Medicine 07/08/12 Bhupinder Boucher, staffing managerLaborer Stores 04/23/23 Commodity Manager Relationship Specialty Start Date End Date Tu Canela MD [address] [facility] [place] [address] PCP - General Family Medicine 07/08/12 Bhupinder Boucher, staffing managerLaborer Stores 04/23/23 Commodity Manager Relationship Specialty Start Date End Date Tu Canela MD [address] [facility] [place] [address] PCP - General Family Medicine 07/08/12 Bhupinder Boucher, staffing managerLaborer Stores 04/23/23 INFORMATION SOURCE (unrecogn ized section and content) DATE CREATED AUTHOR AUTHOR'S ORGANIZ ATION 11/11/2023 [facility] FOR RECORDS PERTAINING TO PATIENTS WHO ARE OR HAVE BEEN ENROLLED IN A CHEMICAL DEPENDENCY/SUBSTANCEABUSE PROGRAM, SOME INFORMATION MAY BE OMITTED. This clinical summary was aggregated from multiple sources. Caution should be exercised in using it in the provision of clinical care. This summary normalizes information from multiple sources, and as a consequence, information in this document may materially change the coding, format and clinical context of patient data. In addition, data may be omitted in some cases. CLINICAL DECISIONS SHOULD BE BASED ON THE PRIMARY CLINICAL RECORDS. [employer] provides no warranty or guarantee of the accuracy or completeness of information in this document.
[2023-11-13 20:39] LABS: Prothrombin Time (Protime)PT. 13.1 SECONDS (11.7-14.9)
[2023-11-13 20:40] LABS: Partial Thromboplast Time 33.5 Seconds (24.1-36.2)
[2023-11-13 20:41] LABS: Anion Gap 4 (5-15); BUN 15 mg/dL (7-18); BUN/Creat Ratio 16.1 RATIO (10-20); Calcium,Total 9.4 mg/dL (8.5-10.1); Chloride 107 mmol/L (98-107); Creatinine, Serum 0.93 mg/dL (0.55-1.02); EST Glomerular Filtration Rate 62 mL/min (>60); Est Glom Filt Rate - Afr Amer 74 mL/min (>60); Glucose 166 mg/dL (74-106); Potassium 3.3 mmol/L (3.5-5.1); Sodium Level 137 mmol/L (136-145)
--- NOTE | 2023-11-13 20:45 | EDS_ITS ---
HPI History of Present Illness Chief Complaint: Shortness of Breath Informant: patient and family Narrative Narrative: Presents worsening dyspnea cough worse with exertion. Discharged from [place] 3-day stay for COVID dehydration. She has been vaccinated. States had COVID symptoms prior to testing. First diagnosed COVID. Tobacco history however denies diagnosis COPD. No fevers. States headache and cough and congestion. No chest pains. Remote history of breast cancer. States still has diarrhea. PE Risk Factors: Positive for Cancer; Negative for Prior DVT or PE PFSH [facility] Medical History Amputation toe Arthritis Breast cancer of upper-outer quadrant of left female breast Cancer Chronic kidney disease, unspecified Chronic pain Constipation Dermatitis Diverticulosis Eczema Edema Essential hypertension Fatty liver History of Jovana thyroiditis Hyperlipidemia Osteopenia Prediabetes Psoriasis Pulmonary nodule Shortness of breath on exertion Smoker Wears dentures Home Medications diphenhydramine 25 mg-acetaminophen 500 mg tablet (Tylenol PM Extra Strength) 2 ea PO QHS 05/05/15 [History Last Taken Unknown] levothyroxine 25 mcg tablet 25 mcg PO DAILY 05/05/15 [History Last Taken 05/30/22 03:30] vitamin E (dl, acetate) 180 mg (400 unit) capsule 400 units PO DAILY 05/05/15 [History Last Taken Unknown] baclofen 10 mg tablet 10 mg PO DAILY 03/23/22 [History Last Taken Unknown] cholecalciferol (vitamin D3) 50 mcg (2,000 unit) capsule 50 mcg PO DAILY 03/23/22 [History Last Taken Unknown] biotin 10 mg tablet 10 mg PO DAILY 05/24/22 [History Last Taken Unknown] magnesium 250 mg tablet 250 mg PO DAILY 05/24/22 [History Last Taken Unknown] multivitamin 1 tab PO DAILY 05/24/22 [History Last Taken Unknown] lisinopril 10 mg tablet 20 mg PO DAILY 06/23/22 [History Last Taken Unknown] Allergy/AdvReac Type Severity Reaction Status Date / Time carisoprodol [From Soma] Allergy Hives Verified 11/13/23 19:47 propoxyphene napsylate Allergy Other Verified 11/13/23 19:47 [From Giovanna-Austen] Family History Father Heart disease Black lung Mother Rheumatoid arthritis Sister Diabetes Cancer Kidney Brother Cancer Lung Surgical History H/O thyroidectomy H/O: hysterectomy History of carpal tunnel release Hx of cholecystectomy Social History Smoking Status: Current every day smoker tobacco type: cigarettes alcohol intake: never substance use type: does not use ROS ROS ED Constitutional Constitutional ED: Denies chills, fever(s) or sweats Eyes Eyes: Denies change in vision ENT ENT ED: Denies dysphagia or sore throat Cardiovascular Cardiovascular: Denies chest pain, leg edema, palpitations or racing heartbeat Respiratory/Chest Respiratory/Chest: Reports cough, dyspnea and dyspnea on exertion Gastrointestinal Gastrointestinal: Reports diarrhea; Denies abdominal pain, nausea or vomiting Genitourinary Genitourinary ED: Denies dysuria, hematuria or urinary frequency Musculoskeletal Musculoskeletal: Denies back pain, extremity pain or neck pain Integumentary Denies rash or wounds Neurologic Neurologic: Denies headache(s), paresthesias or weakness EXAM Physical Exam Const Vital Signs: 11/13/23 19:42 11/13/23 20:30 11/13/23 20:46 Temperature 97.8 F 97.8 F Temperature Source Temporal Temporal Pulse Rate 94 76 Respiratory Rate 18 16 Respiratory Effort Short of Breath Respiratory Depth Normal Respiratory Pattern Tachypnea Blood Pressure 156/91 H 165/105 H Blood Pressure Mean 112 125 Pulse Ox 97 96 Oxygen Delivery Method Room Air Room Air 11/13/23 21:00 Temperature 97.4 F L Temperature Source Temporal Pulse Rate 74 Respiratory Rate 16 Respiratory Effort Respiratory Depth Respiratory Pattern Blood Pressure 171/78 H Blood Pressure Mean 109 Pulse Ox 96 Oxygen Delivery Method Positive well nourished and well developed General Appearance ED: well developed and NAD HEENT Reports dry mucous membranes normocephalic and atraumatic Mouth ED: Yes dry mucous membranes Mouth: dry mucous membranes Eyes PERRL, EOMs intact bilaterally and conjunctivae normal General Eye ED: Yes normal appearance of both eyes Neck no lymphadenopathy and supple General: Negative for tenderness Chest Wall Chest: Negative for tenderness Resp normal respiratory effort and normal air movement Effort and Inspection: symmetric chest movement; Negative for respiratory distress Cardio regular rate, regular rhythm and no murmurs Peripheral Pulses: pulses 2+ throughout GI normal to inspection, nondistended, normoactive bowel sounds and non-tender Palpation: Negative for guarding or rebound tenderness present Back/Spine no CVA tenderness and no thoracic nor lumbar tenderness Extremity normal to inspection General Extremety ED: Negative for edema or tenderness General Extremity: Negative for edema Neuro oriented x3, CN's II-XII intact bilaterally and no sensory deficits noted Sensorium / Orientation: awake and alert Skin no rashes or lesions noted and no wounds MDM MDM MDM Narrative Medical decision making narrative: Interventions / MDM: Differential diagnosis: COVID-19 infection, electrolyte abnormalities, cough Diagnosis considered but do not suspect: Pulmonary embolism however CT negative. My EKG interpretation: EKG: Sinus rate of 75, no ST or T wave changes. QTc 464. Imaging independently reviewed and interpreted by myself: CTA chest: No PE. Groundglass changes upper lobes bilaterally. External documents reviewed: N/A Test considered but not ordered:N/A ED course: Vital signs stable recent COVID diagnosis in the last week. Exertional dyspnea. Continued cough. Labs ordered along with D-dimer. EKG sinus rhythm no acute findings. White count stable at 7.27. electrolytes are normal except for potassium 3.3. D-dimer elevated at 0.67. Age-adjusted this is normal, however reports exertional dyspnea with COVID diagnosis. Will obtain a CTA of the chest for PE rule out. 2230: CT neck for PE groundglass change upper lobes. Consistent with her COVID history. She is not hypoxic. Her potassium was orally replaced. She is reassured with findings. Discussed adjunct therapies to help with her cough. Tobacco cessation discussed. Outpatient follow-up with her PCP. All questions were answered. Re-evaluation: stable Disposition discussed with patient/family/significant other: Patient and daughter Case discussed with consulting clinician: N/A This note was generated with [employer] dictation software. It may contain incorrect words, spelling, and punctuation that were not noted in checking the note before signing. Lab Data Attestation: I reviewed the patient's lab results. Labs: Laboratory Results - last 24 hr 11/13/23 20:01 WBC 7.2 RBC 4.18 L Hgb 12.7 Hct 35.9 L MCV 85.9 MCH 30.4 MCHC 35.4 RDW Std Deviation 42.5 RDW Coeff of Georgi 14.6 Plt Count 227 MPV 11.3 Immature Gran % (Auto) 0.800 Neut % (Auto) 71.2 H Lymph % (Auto) 17.2 L [place] % (Auto) 9.8 Eos % (Auto) 0.4 Baso % (Auto) 0.6 Absolute Neuts (auto) 5.1 Absolute Lymphs (auto) 1.24 Nucleated RBC % 0 PT 13.1 INR 1.0 APTT 33.5 D-Dimer Quant (PE/DVT) 0.67 H* Sodium 137 Potassium 3.3 L Chloride 107 Carbon Dioxide 26.0 Anion Gap 4 L BUN 15 Creatinine 0.93 Est GFR (MDRD) Af Amer 74 Est GFR (MDRD) Non-Af 62 BUN/Creatinine Ratio 16.1 Glucose 166 H Calcium 9.4 Radiography Diagnostic Testing: Clinical Impression(s) from Imaging Studies Chest CTA 11/13/23 21:00 IMPRESSION: undefined Discharge Plan Triage Chief Complaint: Shortness of Breath ED Provider: Hector Kerns Dx/Rx/DC Orders Clinical Impression: COVID-19 virus infection, Tobacco dependence, Cough, Diarrhea, Hypokalemia Instructions: Coronavirus Disease 2019 (COVID-19): Caring for Yourself or Others Prescriptions: No Action baclofen 10 mg tablet 10 mg PO DAILY cholecalciferol (vitamin D3) 50 mcg (2,000 unit) capsule 50 mcg PO DAILY levothyroxine 25 MCG tablet 25 mcg PO DAILY Patient Comments: THYROID diphenhydramine-acetaminophen [Tylenol PM Extra Strength] 1 EACH tablet 2 ea PO QHS Patient Comments: SLEEP AID vitamin E (dl, acetate) 400 UNITS capsule 400 units PO DAILY Patient Comments: SUPPLEMENT lisinopril 10 mg tablet 20 mg PO DAILY Patient Comments: BLOOD PRESSURE biotin 10 mg Tablet 10 mg PO DAILY magnesium 250 mg Tablet 250 mg PO DAILY multivitamin Tablet,Chewable 1 tab PO DAILY Primary Care Provider: Aneta Brown Referrals: Aneta Brown, PA [Primary Care Provider] - 1 Week Activity Restrictions/Additional Instructions: CT chest negative for PE. COVID changes noted. Labs was only significant for potassium 3.3 with oral replacement. Continue oral fluids at home, adjunct therapies as discussed for your cough symptoms. Stops your tobacco use. Follow-up with your doctor. Disposition Disposition: Home, Self Care
[2023-11-13 20:46] VITALS: BP 165/105; PULSE 76; RESP 16; TEMP 36.6; O2SAT 96
[2023-11-13 20:56] LABS: D-Dimer Quantitative (DVT/PE) 0.67 FEU/ug/m (0.27-0.49)
[2023-11-13 21:00] VITALS: BP 171/78; PULSE 74; RESP 16; TEMP 36.3; O2SAT 96
--- NOTE | 2023-11-13 21:00 | CT_ITS ---
STUDY: CTA CHEST REASON FOR EXAM: Female, 83 years old. Dyspnea -- recent covid, r/o PE RADIATION DOSAGE (If Supplied By Facility): CTDIvol = ( 6.75 ) mGy, DLP = ( 159.35 ) mGycm TECHNIQUE: The examination was performed with the intravenous administration of IV 100mL Isovue-370. Post-processing of the angiographic images was performed, with multiplanar reformation and 3D reconstruction. Individualized dose optimization techniques were used for this CT. COMPARISON: None. FINDINGS: Tubes and lines: 1. No life-support noted. CTA: PULMONARY ARTERIES: There is normal configuration and contrast opacification of pulmonary outflow tract, main pulmonary arteries, segmental and intersegmental pulmonary arteries bilaterally without evidence of intraluminal filling defects. AORTIC ARCH: The aortic arch and descending aorta have normal configuration. No evidence of dissection or aneurysmal dilatation. Scattered atherosclerotic calcifications are present. Maximal transverse dimension of the ascending aorta estimated at 3.0 cm. HEART: Cardiac contour is normal. No evidence pericardial effusion. CT CHEST: LUNGS: [Chronic interstitial thickening noted bilaterally. There is partial occlusion of several lower lobe bronchi bilaterally. This may be secondary to impaction by secretion. No distinct mass noted. Subtle groundglass density/infiltrate in the upper lobes bilaterally. PLEURAL SPACES: Unremarkable, no effusion or pneumothorax.. MEDIASTINUM AND LYMPH NODES: There is a a RIGHT hilar lymph node measuring 1.6 x 1.2 cm (series 2: Image 127) subcarinal adenopathy is also noted measuring approximately 1.1 x 1.8 cm out. There is a LEFT hilar adenopathy, measuring approximately 2.0 x 0.9 cm.. BONES: Unremarkable ABDOMEN: Within normal limits. Other: None IMPRESSIONS: 1. No CTA evidence of pulmonary embolism. 2. No CTA evidence of aortic aneurysm or dissection. Diffuse aortic soft and calcified plaque. The ascending aorta has maximal dimension of 3.[address] appearance of the heart and pericardium. 4. Diffuse interstitial prominence bilaterally. There however are areas of soft tissue opacification of multiple bronchi extending into the lower lobes. This may represent sequelae of impaction by secretion. No definitive masses noted. 5. Reactive mediastinal adenopathy is noted. 6. Subtle groundglass density in the upper lungs bilaterally. 7. Thyroid nodules greater on LEFT than RIGHT. In the absence of previous imaging for comparison, consider follow-up with nonemergent thyroid ultrasound. Electronically Signed: Kalyan Beckett MD at 22:20 EST , CT/CTA Chest W/WO Contrast IMPRESSION: undefined
[2023-11-13] MEDS: Potassium Chloride Oral Tablet 20 MEQ 40 MEQ PO (22:37)
[2023-11-13 22:38] VITALS: BP 166/91; PULSE 81; RESP 18; O2SAT 99
== END 2023-11-13 22:45 | disposition home or self-care (01) ==
PROVIDERS: Emergency Provider Emergency Medicine; PCP Physician Assistant; Visit Provider Emergency Medicine
DX: U07.1 COVID-19 (principal); E87.6 Hypokalemia; R19.7 Diarrhea, unspecified; I10 Essential (primary) hypertension; E78.5 Hyperlipidemia, unspecified; G89.29 Other chronic pain; F17.210 Nicotine dependence, cigarettes, uncomplicated; Z79.890 Hormone replacement therapy; Z79.899 Other long term (current) drug therapy; Z85.3 Personal history of malignant neoplasm of breast
CPT/HCPCS: Q9967; 71275; 80048; 85025; 85379; 85610; 85730; 93005; 96360; 96361; 99284; J7030; A4216

== ENCOUNTER 2025-09-19 17:30 | Inpatient (IN) | payer MEDICARE, MEDICAID, SELFPAY ==
[2025-09-19] VITALS (9 sets, daily range): BP systolic 156–187; BP diastolic 69–96; PULSE 81–83; RESP 15–19; TEMP 36.5–36.6; O2SAT 84–97; BMI 28.0; BMI 27.8
--- NOTE | 2025-09-19 18:25 | RAD_ITS ---
PROCEDURE: LUMBAR SPINE 2 OR 3 VIEWS 09/19/2025 REASON FOR EXAM: PAIN TECHNIQUE: Procedure Code: RADSPLL Modality: DX Procedure: LUMBAR SPINE 2 OR 3 VIEWS COMPARISON: None. FINDINGS: No subluxation. Alignment is anatomic. Age-indeterminate superior endplate compression fractures involving L1 and L3, with mild less than 50% height loss. Otherwise mild spondylotic changes with small anterior endplate osteophytes and hypertrophic facet arthropathy. Qualitative osteopenia. Grossly unremarkable soft tissues. Cholecystectomy surgical clips. Atherosclerotic vascular calcifications. RAD/Lumbar Spine 2 or 3 Views IMPRESSION: Age-indeterminate compression fractures of L1 and L3. Mild spondylotic changes . Reading Location: [id number]
--- NOTE | 2025-09-19 18:25 | RAD_ITS ---
PROCEDURE: RIGHT SHOULDER MIN 2 VIEWS 09/19/2025 REASON FOR EXAM: PAIN TECHNIQUE: Procedure Code: RADSH Modality: DX Procedure: SHOULDER MIN 2 VIEWS Laterality: Right COMPARISON: None. FINDINGS: No acute fracture or dislocation. Relatively well preserved glenohumeral and AC joints. Anatomic alignment. No marked soft tissue swelling or unusual periarticular mineralization. RAD/Shoulder min 2 Views IMPRESSION: No acute fracture or dislocation. Reading Location: [id number]
--- NOTE | 2025-09-19 18:25 | RAD_ITS ---
PROCEDURE: RIGHT ANKLE MIN 3 VIEWS; FOOT MIN 3 VIEWS 09/19/2025 REASON FOR EXAM: PAIN TECHNIQUE: Procedure Code: JULIEN KIMBLE Modality: DX Procedure: ANKLE MIN 3 VIEWS; FOOT MIN 3 VIEWS Laterality: Right COMPARISON: None. FINDINGS: Acute nondisplaced transverse fracture at the 5th metatarsal base approximately 7 mm from the proximal tip (pseudo-Avalos avulsion type fracture). No other acute fracture or dislocation is seen. Alignment is anatomic. Congruent ankle mortise. 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 Qualitative osteopenia. Generalized soft tissue swelling/edema about the ankle and foot. RAD/Ankle min 3 Views IMPRESSION: Acute nondisplaced pseudo-Avalos avulsion type fracture of the 5th metatarsal ba se. Reading Location: [id number]
--- NOTE | 2025-09-19 18:45 | RAD_ITS ---
PROCEDURE: RIGHT ANKLE MIN 3 VIEWS; FOOT MIN 3 VIEWS 09/19/2025 REASON FOR EXAM: PAIN TECHNIQUE: Procedure Code: JULIEN KIMBLE Modality: DX Procedure: ANKLE MIN 3 VIEWS; FOOT MIN 3 VIEWS Laterality: Right COMPARISON: None. FINDINGS: Acute nondisplaced transverse fracture at the 5th metatarsal base approximately 7 mm from the proximal tip (pseudo-Avalos avulsion type fracture). No other acute fracture or dislocation is seen. Alignment is anatomic. Congruent ankle mortise. 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 Qualitative osteopenia. Generalized soft tissue swelling/edema about the ankle and foot. RAD/Foot min 3 Views IMPRESSION: Acute nondisplaced pseudo-Avalos avulsion type fracture of the 5th metatarsal ba se. Reading Location: [id number]
--- OUTSIDE RECORDS SUMMARY | 2025-09-19 19:06 | XMS RPT_ITS | CCD ---
Author Organization [facility] Care Team Providers Care Crop Quantitative Geneticist Name Role Phone Tu Canela MD Primary Care Provider Hilton, Dr. Mae Primary Care Provider Dr. Tu Canela Referring Provider Friend, Dr. Walter Attending Provider [phone] Friend, Dr. Walter Other Provider Tu Canela Referring Provider Unavailable Tu Canela MD Primary Care Provider Tu Canela MD Primary Care Provider Nolan ERIC, Guerda Unavailable Eliseo Michele RN Unavailable Unavailable Eliseo Michele RN Unavailable Unavailable Tu Canela MD Primary Care Provider Hari Sena RN, Zenaida Unavailable TU CANELA Primary Care Unavailable DO GARZA MICHELLE Attending Unavailable TU CANELA Primary Care Unavailable KIRK SMITH Admitting Unavailable PROVIDER, UNKNOWN Attending Unavailable RC RODRIGUEZ Consulting Unavailable Haagen LIABILITY CLAIMS EXAMINER.Rosie SAHNI Unavailable Suppan LIABILITY CLAIMS EXAMINER.KAITLYN Shobha A Unavailable [phone] Ryne ERIC, Eliseo Monzon Unavailable Unavailable Bichara BUSINESS CONTINUITY MANAGER, Sammy Unavailable Unavailable Bichara BUSINESS CONTINUITY MANAGER, Sammy Unavailable Unavailable Suppan LIABILITY CLAIMS EXAMINER.KAITLYN, Shobha A Unavailable [phone] Suppan LIABILITY CLAIMS EXAMINER.KAITLYN, Shobha A Unavailable [phone] Ananya Shane Attending Unavailable Aneta Edwards Referring Unavailable Aneta Edwards Primary Care Unavailable AYLIN PAZ Referring Unavailable AMY FRY Attending Unavailable HILTON, TU Fernando Primary Care Unavailable HILTON, TU Fernando Primary Care Unavailable MARY ELLEN HEREDIA Referring Unavailable ROSIE SYED Attending Unavailable AYLIN PAZ Attending Unavailable HILTON, TU Fernando Primary Care Unavailable MARY ELLEN HEREDIA Referring Unavailable HILTON, TU Fernando Primary Care Unavailable SELF Referring Unavailable ROSIE SYED Attending Unavailable HILTON, TU Fernando Primary Care Unavailable HILTON, TU Fernando Referring Unavailable HILTON, TU J Primary Care Unavailable HILTON, TU J Attending Unavailable SELF Referring Unavailable HILTON, TU J Primary Care Unavailable JANNIE PROCTOR Referring Unavailable ROSIE SYED Referring Unavailable HILTON, TU Fernando Primary Care Unavailable HILTON, TU Fernando Primary Care Unavailable AMY FRY Referring Unavailable HILTON, TU Fernando Primary Care Unavailable HILTON, TU Fernando Referring Unavailable JANNIE PROCTOR Attending Unavailable HILTON, TU Fernando Primary Care Unavailable HILTON, TU Fernando Attending Unavailable HILTON, TU Fernando Primary Care Unavailable HILTON, TU Fernando Referring Unavailable ROSIE SYED Attending Unavailable HILTON, TU Fernando Primary Care Unavailable ROSIE SYED Attending Unavailable HILTON, TU Fernando Primary Care Unavailable HILTON, TU Fernando Referring Unavailable HILTON, TU Fernando Primary Care Unavailable HILTON, TU Fernando Primary Care Unavailable RANDY PARIKH Referring UnavailMARY [place] Admitting Unavailable DARRON GORDON Attending Unavailable ROSIE SYED Attending Unavailable HILTON, TU Fernando Primary Care Unavailable ROSIE SYED Attending Unavailable HILTON, TU Fernando Primary Care Unavailable HILTON, TU Fernando Primary Care Unavailable JANNIE PROCTOR Referring Unavailable JANNIE PROCTOR Attending Unavailable ROSIE SYED Attending Unavailable HILTON, TU Fernando Primary Care Unavailable HILTON, TU Fernando Primary Care Unavailable JANNIE PROCTOR Referring Unavailable ROSIE SYED Referring Unavailable HILTON, TU Fernando Primary Care Unavailable HILTON, TU Fernando Primary Care Unavailable SELF Referring Unavailable ROSIE SYED Attending Unavailable NEVIN FAJARDO Referring Unavailable HILTON, TU Fernando Primary Care Unavailable HILTON, TU Fernando Primary Care Unavailable JANNIE PROCTOR Referring Unavailable JANNIE PROCTOR Attending Unavailable Allergies Allergy Classification Reported Allergen(s) Allergy Type Date of Onset Reaction(s) Facility Carisoprodol (2 sources) Carisoprodol Drug Allergy [address], [address] [facility] Dust (2 sources) Dust Substance Allergy 6 Other: See Comments [facility] Mold Extract (2 sources) Mold Extract Drug Allergy 6 Other: See Comments [facility] Pollen (2 sources) Grass pollen Substance Allergy 6 Other: See Comments [facility] (20 sources) Carisoprodol; Translations: [CARISOPRODOL] Drug Allergy 2 Swelling, Itching [facility] Work Phone: (20 sources) Dust; Translations: [DUST] Allergy to substance 6 Other: See Comments [facility] Work Phone: (20 sources) Grass pollen; Translations: [GRASS POLLEN] Drug Allergy 6 Other: See Comments [facility] Work Phone: [phone] (20 sources) Mold Extract; Translations: [MOLD] Drug Allergy 6 Other: See Comments [facility] Work Phone: [phone] (20 sources) Tree; Translations: [TREES] Allergy to substance 6 Other: See Comments [facility] Work Phone: (20 sources) Animal Dander; Translations: [ANIMAL DANDER] Drug Allergy [address] [facility] Work Phone: (20 sources) Propoxyphene N-Acetaminophen; Translations: [PROPOXYPHENE N-ACETAMINOPHEN] Drug Allergy 2 Mental Status Change [facility] Work Phone: (1 source) Acetaminophen Drug Allergy 2 Other [facility] [place] Work Phone: [phone] (7 sources) Propoxyphene; Translations: [propoxyphene napsylate] Drug Allergy 2 Other [facility] [place] (1 source) Carisoprodol Drug Allergy 4 [facility] Repository Medications Current Medications Medication Drug Class(es) Dates Sig (Normalized) Sig (Original) acetaminophen 325 mg oral tablet (20 sources) Start: 11-14-2022 take 2 tablets by mouth every four hours as needed acetaminophen (TYLENOL) 325 mg tablet Take 2 tablets by mouth every 4 hours as needed for pain. 11/14/2022 Active Comment on above: Take 2 tablets by mo ut every 4 hours as needed for pain. acetaminophen 500 mg / diphenhydrAMINE hydrochloride 25 mg oral tablet (20 sources) Histamine-1 Receptor Antagonist Start: 05-05-2015 take 1 tablet by mouth at bedtime Diphenhydramine-Porsha taminophen (Tylenol Pm Ex-Strength Caplet) 1 EACH tablet Active 2 EACH PO AT BEDTIME May 04, 2015 11:00pm take 2 tablets by mo [facility] once daily at bedtime diphenhydrAMINE-Acetaminophen 25-500 mg tab Take 2 tablets by mouth daily at bedtime. Active Comment on above: Take 2 tablets by mo [facility] at bedtime as needed. acetaminophen 325 mg / HYDROcodone bitartrate 5 mg oral tablet (2 sources) Opioid Agonist Start: 05-12-2015 take 1 tablet by mouth every four hours as needed Hydrocodone-Acet aminophen Active 1 TABLET PO EVERY 4 HOURS NEEDED May 12, 2015 6:36am Start: 05-05-2015 take 1 tablet by [facility] every eight hours as needed Hydrocodone-Acetaminophen (Vicodin 5-300 Mg Tablet) 1 EACH tablet Active 1 TABLET PO EVERY 8 HOURS NEEDED May 05, 2015 10:14am ALPRAZolam 0.5 mg oral tablet (1 source) Benzodiazepine Start: 05-27-2025 End: 05-27-2025 take 2 tablets by mouth once ALPRAZolam (XANAX) 0.5 mg tablet Indications: Symptomatic varicose veins of both lower extremities Take 2 tablets by mouth one time only for 1 dose. 2 tablet 05/27/2025 05/27/2025 Active amLODIPine 10 mg oral tablet (20 sources) Dihydropyridine Calcium Channel Joe Start: 07-01-2024 take 0.5 tablet by mouth once daily amLODIPine (NORVASC) 10 mg tablet Take 0.5 tablets by mouth once daily. 90 tablet 1 07/01/2024 Active Start: 12-05-2023 End: 07-01-2024 take 1 tablet by mouth once daily amLODIPine (NORVASC) 10 mg tablet Take 1 tablet by mouth once daily. 90 tablet 1 03/17/2024 07/01/2024 Discontinued (Adjust Sig - Block E-Cancel) Start: 11-20-2023 End: 12-05-2023 take 0.5 tablet by mouth once daily amLODIPine (NORVASC) 10 mg tablet Take 0.5 tablets by mouth once daily. 90 tablet 1 11/20/2023 12/05/2023 Discontinued Start: 07-03-2023 take 1 tablet by leatha th once daily amLODIPine (NORVASC) 10 mg tablet Take 1 tablet by mouth once daily. 90 tablet 1 07/03/2023 Active Start: 05-29-2023 End: 07-03-2023 take 1 tablet by mouth once daily amLODIPine (NORVASC) 2.5 mg tablet Take 1 tablet by mouth once daily. Take with 5 mg dose for total daily dose of 7.5 mg daily. 30 tablet 2 05/29/2023 07/03/2023 Discontinued Start: 05-02-2023 End: 07-03-2023 take 1 tablet by mouth once daily amLODIPine (NORVASC) 5 mg tablet Indications: Primary hypertension Take 1 tablet by mouth once daily. 30 tablet 2 05/02/2023 07/03/2023 Discontinued Start: 04-02-2023 End: 05-02-2023 take 1 tablet by mouth once daily amLODIPine (NORVASC) 2.5 mg tablet Take 1 tablet by mouth once daily. 30 tablet 1 04/02/2023 05/02/2023 Discontinued Start: 05-05-2015 take 5 mg by mouth once daily Amlodipine Active 5 MG PO DAILY May 05, 2015 10:14am Comment on above: Take 1 tablet by leatha th once daily. Take 1 tablet by leatha th once daily. Take with 5 mg dose for total daily dose of 7.5 mg daily. aspirin 81 mg chewable tablet (20 sources) Platelet Aggregation Inhibitor, Nonsteroidal Anti-inflammatory Drug Start: 10-24-20 take 1 tablet by mouth once daily aspirin 81 mg chewable tablet Take 1 tablet by mouth once daily. 30 tablet 2 10/24/2024 Active atorvastatin 80 mg oral tablet (20 sources) HMG-CoA Reductase Inhibitor Start: 10-23-20 End: 01-17-20 take 1 tablet by mouth once daily at bedtime atorvastatin (LIPITOR) 80 mg tablet Take 1 tablet by mouth daily at bedtime. 90 tablet 3 01/16/2025 Active baclofen 10 mg oral tablet (20 sources) gamma-Aminobutyric Acid-ergic Agonist Start: 01-25-20 End: 01-17-20 take 1 tablet by mouth once daily at bedtime baclofen 10 mg tablet Take 1 tablet by mouth daily at bedtime. 90 tablet 3 01/16/2025 01/16/2026 Active Start: 07-31-2023 End: 01-27-2024 take 1 tablet by mouth every twelve hours as needed baclofen 10 mg tablet Take 1 tablet by mouth twice daily as needed. 90 tablet 1 07/31/2023 01/25/2024 Discontinued Start: 04-02-2023 End: 05-02-2023 take 1 tablet by mouth every twelve hours as needed baclofen (LIORESAL) 10 mg tablet Take 1 tablet by mouth twice daily as needed. 60 tablet 1 04/02/2023 05/02/2023 Start: 01-18-2023 End: 02-17-2023 baclofen (LIORESAL) 5 mg tab let Take 1 tablet by mouth daily at bedtime. Once at bed time, daily 30 Each 1 01/18/2023 02/17/2023 Start: 03-23-2022 take 10 mg by mouth once daily Baclofen Active 10 MG PO DAILY March 22, 2022 11:00pm Start: 01-02-2022 End: 06-09-2022 take 1 tablet by mouth every twelve hours as needed baclofen (LIORESAL) 10 mg tablet Take 1 tablet by mouth twice daily as needed. 60 tablet 5 01/02/2022 06/09/2022 Discontinued Comment on above: Take 1 tablet by leatha th twice daily as needed. Take 5 mg by mouth d aily at bedtime. Once at bed time, daily Take 1 tablet by leatha th daily at bedtime. Once at bed time, daily Take 1 tablet by leatha th daily at bedtime. biotin 10 mg oral tablet (20 sources) Start: 05-24-2022 take 10 mg by mouth once daily Biotin Active 10 MG PO DAILY May 23, 2022 11:00pm End: 03-22-2023 take 1 tablet by mouth once daily BIOTIN ORAL Take 1 tablet by mouth once daily. 0 03/22/2023 Discontinued (Other) take 1 tablet by leatha th once daily BIOTIN ORAL Take 1 tablet by mouth once daily. 0 Active Comment on above: Take 1 tablet by leatha th once daily. carvedilol 6.25 mg oral tablet (20 sources) alpha-Adrenergic Joe, beta-Adrenergic Joe Start: 12-17-2024 End: 01-16-2025 take 1 tablet by mouth twice daily carvedilol (COREG) 6.25 mg tablet Take 1 tablet by mouth two times a day. 180 tablet 3 01/16/2025 Active Start: 11-19-2024 End: 12-17-2024 take 1 tablet by mouth twice daily carvedilol (COREG) 3.125 mg tablet Indications: Ischemic stroke (HCC) , Primary hypertension Take 1 tablet by mouth two times a day. 60 tablet 1 11/19/2024 12/17/2024 Discontinued Start: 09-17-2024 take 1 tablet by leatha th twice daily carvedilol (COREG) 3.125 mg tablet Indications: Primary hypertension Take 1 tablet by mouth two times a day. 60 tablet 2 09/17/2024 Active Start: 11-08-2023 End: 09-17-2024 take 1 tablet by mouth twice daily at mealtime carvedilol (COREG) 6.25 mg tablet Take 1 tablet by mouth two times a day with meals. 180 tablet 1 12/17/2023 09/17/2024 Discontinued Comment on above: Take 1 tablet by leatha th two times a day with meals. cholecalciferol 0.05 mg oral capsule (6 sources) Vitamin D Start: take 50 ug by mouth once daily Cholecalciferol (Vitamin D3) Active 50 MCG PO DAILY March 22, 2022 11:00pm cholecalciferol, vitamin D3, (VITAMIN D3 ORAL) (20 sources) take 2000 [IU] by mouth once daily cholecalciferol, vitamin D3, (VITAMIN D3 ORAL) Take 2,000 Units by mouth once daily. Active take 2000 [IU] by mouth once john ly cholecalciferol, vitamin D3, (VITAMIN D3 ORAL) Take 2,000 Units by mouth once daily. 0 Active Comment on above: Take 2,000 Units by mouth once daily. doxycycline monohydrate 100 mg oral capsule (2 sources) Tetracycline-class Drug Start: 01-17-20 End: 01-22-20 23 take 1 capsule by mouth twice daily doxycycline monohydrate (MONODOX) 100 mg capsule Take 1 capsule by mouth twice daily for 5 days. 10 capsule 0 01/16/2023 01/21/2023 Active Comment on above: Take 1 capsule by [facility] twice daily for 5 days. ammonium lactate 120 mg/ml topical cream (20 sources) Start: 09-17-20 ammonium lactate (LAC-HYDRIN) 12 % cream Indications: Dry skin Apply to affected area as needed. 385 g 1 09/17/2024 Active levothyroxine sodium 0.025 mg oral tablet (20 sources) l-Thyroxine Start: 05-05-20 End: 01-15-20 26 take 1 tablet by mouth once daily, then take 2 tablets by mouth once levothyroxine (SYNTHROID) 25 mcg tablet Indications: History of Jovana thyroiditis Take 1 tablet by mouth once daily. Except 2 tabs by mouth every Sunday and Sunday 114 tablet 3 01/16/2025 01/14/2026 Active Comment on above: Take 1 tablet by [facility] once daily. Except 2 tabs by mouth every Sunday and Sunday linezolid 600 mg oral tablet (1 source) Oxazolidinone Antibacterial Start: 11-14-19 End: 11-19-19 take 1 tablet by mouth twice daily linezolid (ZYVOX) 600 mg tablet Indications: Cellulitis of right lower leg Take 1 tablet by mouth twice daily for 8 doses. 8 tablet 0 11/14/2022 11/19/2022 Active Comment on above: Take 1 tablet by [facility] twice daily for 8 doses. losartan potassium 100 mg oral tablet (20 sources) Angiotensin 2 Receptor Joe Start: 10-24-20 End: 01-17-20 take 1 tablet by mouth once daily losartan (COZAAR) 100 mg tablet Take 1 tablet by mouth once daily. 90 tablet 3 01/16/2025 Active Start: 07-01-2024 End: 08-25-2024 take 1 tablet by mouth once daily losartan (COZAAR) 25 mg tablet Take 1 tablet by mouth once daily. 90 tablet 1 08/25/2024 Active Magnesium (20 sources) Start: 05-24-2022 take 250 mg by mouth once daily Magnesium Active 250 MG PO DAILY May 23, 2022 11:00pm Start: 05-24-2022 take 250 mg by mouth once dagoberto y Magnesium Active 250 MG PO DAILY May 24, 2022 12:00am End: 03-22-2023 take 1 tablet by mouth once daily MAGNESIUM ORAL Take 1 tablet by mouth once daily. 0 03/22/2023 Discontinued take 1 tablet by leatha th once daily MAGNESIUM ORAL Take 1 tablet by mouth once daily. 0 Active Comment on above: Take 1 tablet by leatha th once daily. 24 hr metoprolol succinate 50 mg extended release oral tablet (20 sources) beta-Adrenergic Joe Start: 03-02-2023 End: 05-28-2024 take 0.5 tablet by mouth once daily metoprolol succinate ER (TOPROL XL) 50 mg 24 hr tablet Indications: Primary hypertension Take 0.5 tablets by mouth once daily. 90 tablet 3 05/29/2023 05/28/2024 Active Start: 07-25-2022 End: 07-25-2023 take 1 tablet by mouth once daily metoprolol succinate ER (TOPROL XL) 25 mg 24 hr tablet Indications: Primary hypertension Take 1 tablet by mouth once daily. 90 tablet 3 07/25/2022 03/02/2023 Discontinued Comment on above: Take 1 tablet by leatha th once daily. Take 0.5 tablets by mouth once daily. Multivitamin preparation (5 sources) Start: 05-24-2022 take 1 tablet by mouth once daily Multivitamin Active 1 TABLET PO DAILY May 23, 2022 11:00pm Start: 05-24-2022 take 1 tablet by elatha th once daily Multivitamin Active 1 TABLET PO DAILY May 24, 2022 12:00am Multivitamins-Iron tab (14 sources) Start: 02-04-2025 take 1 tablet by mouth once daily Multivitamins-Iron tab Indications: Anemia, unspecified type Take 1 tablet by mouth once daily. 02/04/2025 Active NIFEdipine 90 mg osmotic 24 hr extended release oral tablet (20 sources) Dihydropyridine Calcium Channel Joe Start: 10-31-2024 End: 01-16-2025 take 1 tablet by mouth once daily NIFEdipine ER (PROCARDIA XL) 90 mg 24 hr tablet Take 1 tablet by mouth once daily. 90 tablet 3 01/16/2025 Active Start: 10-24-2024 End: 10-31-2024 take 1 tablet by mouth once daily NIFEdipine ER (PROCARDIA XL) 60 mg 24 hr tablet Take 1 tablet by mouth once daily. 30 tablet 2 10/24/2024 10/31/2024 Discontinued nitrofurantoin, macrocrystals 25 mg / nitrofurantoin, monohydrate 75 mg oral capsule (1 source) Nitrofuran Antibacterial Start: 03-02-2023 End: 03-09-2023 take 1 capsule by mouth twice daily at mealtime nitrofurantoin monohydrate and macrocrystal (MACROBID) 100 mg capsule Take 1 capsule by mouth twice daily with meals for 7 days. 14 capsule 0 03/02/2023 03/09/2023 Active Comment on above: Take 1 capsule by mo uth twice daily with meals for 7 days. pantoprazole 40 mg delayed release oral tablet (20 sources) Proton Pump Inhibitor Start: 10-24-2024 End: 01-16-2025 take 1 tablet by mouth once daily in the morning pantoprazole DR (PROTONIX) 40 mg tablet Take 1 tablet by mouth daily at 6 am. 90 tablet 3 01/16/2025 Active pregabalin 75 mg oral capsule (20 sources) Start: 04-29-2025 End: 07-30-2025 pregabalin (LYRICA) 25 mg capsule Indications: Chronic pain syndrome Take 25 mg in the morning and 75 mg in the evening. 90 capsule 1 04/29/2025 07/30/2025 Active Start: 04-29-2025 End: 07-30-2025 pregabalin (LYRICA) 75 mg ca psule Indications: Chronic pain syndrome Take 25 mg in the morning and 75 mg in the evening. 04/29/2025 07/30/2025 Active Start: 02-11-2025 End: 08-10-2025 take 1 capsule by mouth twice daily pregabalin (LYRICA) 75 mg capsule Indications: Chronic pain syndrome Take 1 capsule by mouth two times a day for 180 days. 180 capsule 1 02/11/2025 04/29/2025 Discontinued (Adjust Sig - Block E-Cancel) Start: 12-17-2024 End: 07-15-2025 take 1 capsule by mouth once daily at bedtime pregabalin (LYRICA) 75 mg capsule Indications: Chronic pain syndrome Take 1 capsule by mouth daily at bedtime for 180 days. 90 capsule 1 01/16/2025 02/11/2025 Discontinued Start: 12-19-2023 End: 12-17-2024 take 1 capsule by mouth once daily at bedtime pregabalin (LYRICA) 50 mg capsule Indications: Chronic pain syndrome Take 1 capsule by mouth daily at bedtime for 90 days. 90 capsule 08/25/2024 12/17/2024 Discontinued Start: 11-20-2023 End: 01-19-2024 take 1 capsule by mouth at bedtime as needed pregabalin (LYRICA) 50 mg capsule Indications: Chronic pain syndrome Take 1 capsule by mouth at bedtime as needed for up to 60 days. 30 capsule 1 11/20/2023 Active Start: 01-02-2022 End: 06-09-2022 take 1 capsule by mouth once daily as needed pregabalin (LYRICA) 25 mg capsule Indications: Chronic pain syndrome Take 1 capsule by mouth once daily as needed for up to 30 days. 30 capsule 0 01/02/2022 06/09/2022 Discontinued Start: 05-05-2015 take 75 mg by mouth at bedtime Pregabalin Active 75 MG PO AT BEDTIME May 05, 2015 10:14am Comment on above: Take 1 capsule by mo ut once daily as needed for up to 30 days. Take 75 mg by mouth daily at bedtime. 1/2 a table (75 mg) once a day at night Take 75 mg by mouth daily at bedtime. Take 1 capsule by mo ut at bedtime as needed for up to 60 days. Take 1 capsule by mo ut daily at bedtime for 90 days. Do not start before December 19, 2023. vitamin b12 0.1 mg oral tablet (20 sources) Vitamin B12 take 1 tablet by mouth once daily cyanocobalamin (VITAMIN B-12) 100 mcg tab Take 100 mcg by mouth once daily. Active Comment on above: Take 100 mcg by mout h once daily. vitamin e 180 mg oral capsule (20 sources) Start: 05-05-2015 take 400 [IU] by mouth once daily Vitamin E (Dl, Acetate) Active 400 UNITS PO DAILY May 04, 2015 11:00pm take 1 capsule by mouth once john ly alpha tocopheryl acetate (VITAMIN E) 400 unit capsule Take 400 Units by mouth once daily. Active Comment on above: Take 400 Units by [facility] once daily. Completed/Discontinued Medications Medication Drug Class(es) Dates Sig (Normalized) Sig (Original) bacitracin 0.5 unt/mg topical ointment (17 sources) Start: 11-14-2022 End: 03-22-2023 bacitracin 500 unit/gram ointment Apply to affected area twice daily. 0 11/14/2022 03/22/2023 Discontinued (Other) Comment on above: Apply to affected ar ea twice daily. augmented betamethasone 0.5 mg/ml topical cream (20 sources) Corticosteroid Start: 05-03-2023 End: 05-07-2024 betamethasone dipropionate, augmented (DIPROLENE) 0.05 % cream Apply to affected area once daily as needed. 05/03/2023 05/07/2024 Discontinued Comment on above: Apply to affected ar ea once daily as needed. bioflav,lemon/vit Bcomp,C (LIPOFLAVONOID ORAL) (20 sources) End: 03-22-2023 take 1 tablet by mouth once daily bioflav,lemon/vit Bcomp,C (LIPOFLAVONOID ORAL) Take by mouth. 1 tablet by mouth daily. 0 03/22/2023 Discontinued (Other) take 1 tablet by mouth once dagoberto y bioflav,lemon/vit Bcomp,C (LIPOFLAVONOID ORAL) Take by mouth. 1 tablet by mouth daily. 0 Active Comment on above: Take by mouth. 1 tab let by mouth daily. cephalexin 500 mg oral tablet (17 sources) Cephalosporin Antibacterial Start: 5 End: 5 take 1 tablet by mouth twice daily Cephalexin 500 mg tab Indications: Acute cystitis without hematuria Take 1 tablet by mouth two times a day. 14 tablet 12/17/2024 04/29/2025 Discontinued (Other) clopidogrel 75 mg oral tablet (20 sources) [id number] Platelet Inhibitor Start: 4 End: 6 take 1 tablet by mouth once daily clopidogrel (PLAVIX) 75 mg tablet Take 1 tablet by mouth once daily. 90 tablet 3 01/16/2025 01/26/2025 Discontinued Diltiazem 2% / Lidocaine 5% Ointment (Compound) (5 sources) Start: 2 End: Diltiazem 2% / Lidocaine 5% Ointment (Compound) Discontinued 0 .Route 1 May 29, 2022 11:00pm June 23, 2022 9:02am As directed twice daily times two weeks Start: 05-30-2022 Diltiazem 2% / Lidocaine 5% Ointment (Compound) Active 0 .Route May 30, 2022 12:00am As directed twice daily times two weeks furosemide 20 mg oral tablet (11 sources) Loop Diuretic Start: 01-27-2025 End: 04-29-2025 take 1 tablet by mouth once daily furosemide (LASIX) 20 mg tablet Indications: Anemia, unspecified type , Congestive heart failure, unspecified HF chronicity, unspecified heart failure type (HCC) Take 1 tablet by mouth once daily for 3 days. 3 tablet 01/27/2025 04/29/2025 Discontinued (Other) hydrALAZINE hydrochloride 50 mg oral tablet (17 sources) Arteriolar Vasodilator Start: 11-08-2023 End: 05-07-2024 take 1 tablet by mouth every eight hours as needed hydrALAZINE (APRESOLINE) 50 mg tablet Take 1 tablet by mouth every 8 hours as needed. Take for SBP > 140 60 tablet 11/08/2023 05/07/2024 Discontinued Comment on above: Take 1 tablet by leatha th every 8 hours as needed. Take for SBP > 140 lidocaine 1%-EPINEPHrine 1:100,000 50 mL, sodium bicarbonate 20 mEq in NaCl 0.9% 1,000 mL solution (TUMESCENT) (1 source) Start: 06-04-2025 End: 06-04-2025 lidocaine 1%-EPINEPHrine 1:100,000 50 mL, sodium bicarbonate 20 mEq in NaCl 0.9% 1,000 mL solution (TUMESCENT) lisinopril 40 mg oral tablet (20 sources) Angiotensin Converting Enzyme Inhibitor Start: 08-24-2023 End: 08-18-2024 take 1 tablet by mouth once daily lisinopril (ZESTRIL) 40 mg tablet Indications: Primary hypertension Take 1 tablet by mouth once daily. 90 tablet 1 08/24/2023 02/20/2024 Discontinued Start: 07-05-2022 End: 08-14-2023 take 1 tablet by mouth once daily lisinopril (ZESTRIL) 40 mg tablet Indications: Primary hypertension Take 1 tablet by mouth once daily. 90 tablet 1 02/15/2023 Active Start: 06-23-2022 take 20 mg by mouth once daily Lisinopril Active 20 MG PO DAILY June 23, 2022 8:54am Start: 06-14-2022 End: 07-05-2022 take 1 tablet by mouth once daily lisinopril (ZESTRIL, PRINIVIL) 20 mg tablet Indications: Primary hypertension Take 1 tablet by mouth once daily. 30 tablet 5 06/14/2022 07/05/2022 Discontinued Start: 05-05-2015 End: 06-23-2022 take 10 mg by mouth once daily Lisinopril Discontinued 10 MG PO DAILY May 04, 2015 11:00pm June 23, 2022 8:54am Comment on above: Take 1 tablet by leatha th once daily. multivit with calcium,iron,min (WOMEN'S MULTIPLE VITAMINS ORAL) (20 sources) End: 03-22-2023 take 1 tablet by mouth once daily multivit with calcium,iron,min (WOMEN'S MULTIPLE VITAMINS ORAL) Take 1 tablet by mouth once daily. 0 03/22/2023 Discontinued (Other) take 1 tablet by mouth once dagoberto y multivit with calcium,iron,min (WOMEN'S MULTIPLE VITAMINS ORAL) Take 1 tablet by mouth once daily. 0 Active Comment on above: Take 1 tablet by leatha th once daily. varenicline 1 mg oral tablet (10 sources) Partial Cholinergic Nicotinic Agonist Start: 2 End: 2 take 1 tablet by mouth twice daily varenicline (CHANTIX) 1 mg tablet Indications: Tobacco use Take 1 tablet by mouth twice daily. After finishing first month 60 tablet 1 06/09/2022 06/09/2022 Discontinued Start: 05-10-2022 End: 06-09-2022 take 0.5 tablet by mouth once daily, then take 0.5 tablet by mouth twice daily, then take 1 tablet by mouth twice daily varenicline (CHANTIX) 1 mg tablet Indications: Tobacco use Take 0.5 tablets by mouth once daily for 3 days, THEN 0.5 tablets twice daily for 4 days, THEN 1 tablet twice daily for 23 days. 52 tablet 0 05/10/2022 06/09/2022 Discontinued Comment on above: Take 0.5 tablets by mouth once daily for 3 days, THEN 0.5 tablets twice daily for 4 days, THEN 1 tablet twice daily for 23 days. Take 1 tablet by leatha twice daily. After finishing first month Problems Active Problems Problem Classification Problem Date Documented Da te Episodic/Chronic Abdominal hernia (3 sources) Disorder of abdominal wall; Translations: [Ventral hernia without obstruction or gangrene] Episodic Acute cerebrovascular disease (20 sources) Cerebral infarction, unspecified; Translations: [Ischemic stroke] Onset: 10-19-2024 Resolved: 02-09-2025 10-21-2024 Chronic Anal and rectal conditions (4 sources) Ulcer of anus; Translations: [Ulcer of anus and rectum] 06-23-2022 Episodic Aortic; peripheral; and visceral artery aneurysms (20 sources) Dilatation of aorta; Translations: [Aortic ectasia, unspecified site] Onset: 06-14-2022 Chronic Cancer of breast (20 sources) Malignant neoplasm of upper-outer quadrant of female breast; Translations: [Malignant neoplasm of upper-outer quadrant of left female breast] Onset: 05-28-2015 09-02-2018 Chronic Cancer of breast (7 sources) History of malignant neoplasm of breast; Translations: [Personal history of malignant neoplasm of breast] Onset: 05-11-2025 Episodic Chronic kidney disease (20 sources) Chronic kidney disease stage 3; Translations: [CKD (chronic kidney disease) stage 3, GFR 30-59 ml/min] Onset: 01-21-2019 01-21-2019 Chronic Chronic kidney disease (1 source) Chronic kidney disease; Translations: [Stage 3a chronic kidney disease (HCC)] Onset: 11-06-2022 Chronic obstructive pulmonary disease and bronchiectasis (3 sources) Chronic obstructive lung disease; Translations: [Chronic obstructive pulmonary disease, unspecified] Chronic Complications of surgical procedures or medical care (20 sources) Postoperative hypothyroidism; Translations: [Postprocedural hypothyroidism] Onset: 11-06-2022 11-06-2022 Chronic Congestive heart failure; nonhypertensive (4 sources) Congestive heart failure; Translations: [Heart failure, unspecified] Onset: 02-03-2025 01-27-2025 Chronic Deficiency and other anemia (3 sources) Anemia; Translations: [Anemia, unspecified] 01-27-2025 Episodic Diabetes mellitus without complication (17 sources) Prediabetes; Translations: [Prediabetes] Onset: 02-15-2019 02-15-2019 Episodic Disorders of lipid metabolism (20 sources) Hyperlipidemia; Translations: [Hyperlipidemia, unspecified] Onset: 06-03-2012 06-03-2012 Chronic Essential hypertension (20 sources) Hypertensive disorder; Translations: [Essential (primary) hypertension] Onset: 06-03-2012 06-03-2012 Chronic Late effects of cerebrovascular disease (2 sources) Hemiparesis as late effect of cerebrovascular accident; Translations: [Hemiplegia and hemiparesis following cerebral infarction affecting left non-dominant side] Onset: 02-04-2025 02-04-2025 Chronic Menopausal disorders (2 sources) Long-term current use of thyroid hormone replacement therapy; Translations: [Hormone replacement therapy] Onset: 04-29-2025 04-29-2025 Episodic Occlusion or stenosis of precerebral arteries (1 source) Occlusion of right vertebral artery; Translations: [Occlusion and stenosis of right vertebral artery] 02-04-2025 Chronic Osteoarthritis (20 sources) Bilateral arthritis of glenohumeral joints; Translations: [Primary osteoarthritis, right shoulder] Onset: 12-03-2019 06-14-2022 Chronic Other and ill-defined cerebrovascular disease (20 sources) Cerebral atherosclerosis; Translations: [Cerebral atherosclerosis] Onset: 10-20-2024 10-21-2024 Chronic Other and ill-defined cerebrovascular disease (20 sources) Moyamoya disease; Translations: [Moyamoya disease] Onset: 11-17-2024 11-17-2024 Chronic Other and unspecified benign neoplasm (1 source) Personal history of colonic polyps; Translations: [Personal history of colonic polyps] Episodic Other and unspecified benign neoplasm (4 sources) Tubular adenoma of colon; Translations: [Benign neoplasm of colon, unspecified] 06-23-2022 Episodic Other circulatory disease (1 source) Subclavian artery stenosis; Translations: [Stricture of artery] 02-04-2025 Chronic Other circulatory disease (1 source) History of cerebrovascular accident due to ischemia; Translations: [Personal history of transient ischemic attack (TIA), and cerebral infarction without residual deficits] 12-17-2024 Episodic Other circulatory disease (1 source) History of cerebrovascular disease; Translations: [Personal history of transient ischemic attack (TIA), and cerebral infarction without residual deficits] 04-29-2025 Episodic Other circulatory disease (2 sources) Personal history of transient ischemic attack (TIA), and cerebral infarction without residual deficits; Translations: [Personal history of transient ischemic attack (TIA), and cerebral infarction without residual deficits] Onset: 12-17-2024 Episodic Other connective tissue disease (2 sources) Swelling of lower limb; Translations: [Other specified soft tissue disorders] 09-19-2024 Episodic Other diseases of kidney and ureters (1 [...] mass and lump, unspecified site] Episodic Other gastrointestinal disorders (4 sources) Constipation; Translations: [Constipation, unspecified] 06-23-2022 Episodic Other inflammatory condition of skin (20 sources) Psoriasis; Translations: [Other psoriasis] Onset: 10-18-2012 10-18-2012 Chronic Other liver diseases (20 sources) Steatosis of liver; Translations: [Fatty (change of) liver, not elsewhere classified] Onset: 06-14-2022 Chronic Other lower respiratory disease (20 sources) Multiple nodules of lung; Translations: [Other nonspecific abnormal finding of lung field] Onset: 07-08-2012 11-28-2018 Episodic Other lower respiratory disease (3 sources) Cough; Translations: [Cough] 11-13-2023 Episodic Other lower respiratory disease (4 sources) Dyspnea; Translations: [Shortness of breath] 01-26-2025 Episodic Other nervous system disorders (20 sources) Chronic pain syndrome; Translations: [Chronic pain syndrome] Onset: 09-27-2017 Resolved: 11-28-2018 08-25-2019 Chronic Other nervous system disorders (20 sources) Chronic pain; Translations: [Other chronic pain] Onset: 06-03-2012 Resolved: 07-24-2019 Chronic Other nervous system disorders (20 sources) 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; Translations: [Unspecified mononeuropathy of left lower limb] Onset: 11-04-2024 11-04-2024 Chronic Other nervous system disorders (3 sources) Other chronic pain; Translations: [Chronic left-sided thoracic back pain] Onset: 11-06-2022 Chronic Other nervous system disorders (1 source) Chronic pain syndrome; Translations: [Chronic pain syndrome] Onset: 11-06-2022 Chronic Other nervous system disorders (1 source) Anesthesia of skin; Translations: [Numbness of leg] Onset: 10-19-2024 Episodic Other non-traumatic joint disorders (1 source) Acute ankle pain; Translations: [Pain in right ankle and joints of right foot] 11-30-2021 Episodic Other non-traumatic joint disorders (1 source) Chronic pain of right upper limb; Translations: [Pain in right shoulder] 04-29-2025 Episodic Other nutritional; endocrine; and metabolic disorders (1 source) Weight increased; Translations: [Abnormal weight gain] 01-26-2025 Episodic Other screening for suspected conditions (not mental disorders or infectious disease) (20 sources) Patient encounter status; Translations: [Encounter for screening mammogram for malignant neoplasm of breast] Onset: 12-07-2016 Resolved: 12-07-2016 Episodic Other skin disorders (1 source) Xeroderma; Translations: [Xerosis cutis] 09-17-2024 Episodic Paralysis (20 sources) Left hemiparesis; Translations: [Hemiplegia, unspecified affecting left nondominant side] Onset: 10-21-2024 Resolved: 10-24-2024 10-24-2024 Chronic Peripheral and visceral atherosclerosis (2 sources) Peripheral vascular disease, unspecified; Translations: [Peripheral vascular disease, unspecified] Chronic Residual codes; unclassified (1 source) Left before treatment complete; Translations: [Patient's noncompliance with other medical treatment and regimen] Episodic Residual codes; unclassified (1 source) Localized edema; Translations: [Localized edema] 11-30-2021 Episodic Residual codes; unclassified (1 source) Edema; Translations: [Edema, unspecified] 11-30-2021 Episodic Residual codes; unclassified (1 source) Tobacco user; Translations: [Tobacco use] 10-31-2024 Episodic Residual codes; unclassified (1 source) Other specified health status; Translations: [Other specified conditions influencing health status] 11-10-2024 Episodic Spondylosis; intervertebral disc disorders; other back problems (20 sources) Arthritis of facet joint of lumbar spine; Translations: [Spondylosis without myelopathy or radiculopathy, lumbar region] Onset: 11-06-2018 11-06-2018 Chronic Substance-related disorders (20 sources) Nicotine dependence; Translations: [Nicotine dependence, unspecified, uncomplicated] Onset: 11-14-2022 11-14-2022 Chronic Thyroid disorders (20 sources) Multinodular goiter; Translations: [Nontoxic multinodular goiter] Onset: 11-04-2024 03-19-2024 Chronic Unclassified (12 sources) Smoker; Translations: [Smoking] Onset: 11-14-2022 10-21-2024 Unclassified (1 source) Chronic pain of right upper limb 04-29-2025 Unclassified (1 source) Other cough; Translations: [Other cough] Onset: 01-26-2025 Unclassified (1 source) Low back pain without sciatica, unspecified back pain laterality, unspecified chronicity; Translations: [Low back pain without sciatica, unspecified back pain laterality, unspecified chronicity] Onset: 11-19-2024 Varicose veins of lower extremity (11 sources) Varicose veins of lower extremity; Translations: [Varicose veins of bilateral lower extremities with other complications] Onset: 04-14-2025 Episodic Viral infection (1 source) COVID-19; Translations: [COVID] Onset: 11-06-2023 Past or Other Problems Problem Classification Problem Date Documented Da te Episodic/Chronic Allergic reactions (20 sources) Eczema; Translations: [Dermatitis, unspecified] Onset: 10-18-2012 Resolved: 02-28-2017 02-28-2017 Episodic Deficiency and other anemia (1 source) Anemia, unspecified; Translations: [Anemia, unspecified type] Onset: 02-03-2025 Episodic Fluid and electrolyte disorders (4 sources) Hyponatremia; Translations: [Hypo-osmolality and hyponatremia] Onset: 11-06-2023 Episodic Genitourinary symptoms and ill-defined conditions (20 sources) Retention of urine; Translations: [Retention of urine, unspecified] Onset: 11-06-2022 11-06-2022 Episodic Hemorrhoids (20 sources) Bleeding internal hemorrhoids; Translations: [Other hemorrhoids] Onset: 06-14-2022 Episodic Immunizations and screening for infectious disease (2 sources) Needs influenza immunization; Translations: [Encounter for immunization] Onset: 08-12-2024 08-12-2024 Episodic Malaise and fatigue (20 sources) Muscle weakness; Translations: [Weakness] Onset: 10-19-2024 10-19-2024 Episodic Mycoses (20 sources) Candidiasis of vagina; Translations: [Vaginitis due to Callie] Onset: 11-11-2022 11-11-2022 Episodic Nausea and vomiting (20 sources) Nausea and vomiting; Translations: [Nausea with vomiting, unspecified] Onset: 11-06-2022 Resolved: 11-11-2022 11-11-2022 Episodic Osteoporosis (20 sources) Osteoporosis; Translations: [Age-related osteoporosis without current pathological fracture] Onset: 07-08-2012 Resolved: 08-09-2012 08-09-2012 Chronic Other and unspecified benign neoplasm (20 sources) History of polyp of colon; Translations: [Personal history of colonic polyps] Onset: 06-14-2022 Episodic Other connective tissue disease (20 sources) Pain in left thumb; Translations: [Pain in left finger(s)] Onset: 05-05-2016 Resolved: 02-28-2017 02-28-2017 Episodic Other connective tissue disease (20 sources) Acquired trigger finger; Translations: [Trigger finger, unspecified finger] Onset: 09-26-2017 Resolved: 07-24-2019 07-24-2019 Episodic Other connective tissue disease (1 source) Other symptoms and signs involving the musculoskeletal system; Translations: [Left leg weakness] Onset: 10-20-2024 Episodic Other connective tissue disease (1 source) Other specified soft tissue disorders; Translations: [Leg swelling] Onset: 09-17-2024 Episodic Other diseases of veins and lymphatics (20 sources) Vascular insufficiency; Translations: [Venous insufficiency (chronic) (peripheral)] Onset: 03-02-2023 Episodic Other diseases of veins and lymphatics (1 source) Venous insufficiency (chronic) (peripheral); Translations: [Venous insufficiency] Onset: 03-02-2023 Episodic Other gastrointestinal disorders (20 sources) Diarrhea; Translations: [Diarrhea, unspecified] Onset: 11-06-2022 Resolved: 11-11-2022 11-13-2023 Episodic Other inflammatory condition of skin (20 sources) Lichen simplex chronicus; Translations: [Lichen simplex chronicus] Onset: 10-18-2012 10-18-2012 Episodic Other inflammatory condition of skin (20 sources) Pruritus, unspecified; Translations: [Unspecified pruritic disorder] Onset: 10-18-2012 Resolved: 02-28-2017 02-28-2017 Episodic Other injuries and conditions due to external causes (20 sources) Excoriation of skin; Translations: [Other injury of unspecified body region, initial encounter] Onset: 10-18-2012 Resolved: 02-28-2017 02-28-2017 Episodic Other lower respiratory disease (20 sources) Dyspnea on exertion; Translations: [Other forms of dyspnea] Onset: 11-24-2023 11-24-2023 Episodic Other lower respiratory disease (20 sources) Nodule of lung; Translations: [Solitary pulmonary nodule] Onset: 07-08-2012 10-21-2024 Episodic Other lower respiratory disease (1 source) Shortness of breath; Translations: [SOB (shortness of breath)] Onset: 01-26-2025 Episodic Other lower respiratory disease (1 source) Other nonspecific abnormal finding of lung field; Translations: [Lung nodules] Onset: 10-31-2024 Episodic Other non-traumatic joint disorders (20 sources) Hip pain; Translations: [Pain in left hip] Onset: 08-06-2015 Resolved: 07-24-2019 08-25-2019 Episodic Other non-traumatic joint disorders (20 sources) Pain in right hip joint; Translations: [Pain in right hip] Onset: 08-06-2015 Resolved: 07-24-2019 08-25-2019 Episodic Other non-traumatic joint disorders (20 sources) Shoulder pain; Translations: [Pain in left shoulder] Onset: 02-19-2020 02-19-2020 Episodic Other non-traumatic joint disorders (20 sources) Pain in left shoulder; Translations: [Pain in joint, shoulder region] Onset: 10-29-2015 Resolved: 02-28-2017 02-19-2020 Episodic Other non-traumatic joint disorders (20 sources) Pain in right shoulder; Translations: [Pain in joint, shoulder region] Onset: 11-29-2017 Resolved: 11-28-2018 11-06-2022 Episodic Other non-traumatic joint disorders (20 sources) Ankle pain; Translations: [Pain in right ankle and joints of right foot] Onset: 10-01-2015 Resolved: 02-28-2017 02-28-2017 Episodic Other nutritional; endocrine; and metabolic disorders (20 sources) H/O: thyroid disorder; Translations: [Personal history of other endocrine, nutritional and metabolic disease] Onset: 06-03-2012 11-07-2021 Episodic Other nutritional; endocrine; and metabolic disorders (1 source) Abnormal weight gain; Translations: [Weight gain] Onset: 01-26-2025 Episodic Other skin disorders (20 sources) Asteatosis cutis; Translations: [Xerosis cutis] Onset: 10-18-2012 Resolved: 02-28-2017 02-28-2017 Episodic Other skin disorders (1 source) Xerosis cutis; Translations: [Dry skin] Onset: 09-17-2024 Episodic Otitis media and related conditions (2 sources) Dysfunction of bilateral eustachian tubes; Translations: [Unspecified Eustachian tube disorder, bilateral] Onset: 08-12-2024 08-12-2024 Episodic Residual codes; unclassified (20 sources) Unspecified problems with limbs and other problems; Translations: [Problem] Onset: 06-14-2022 06-14-2022 Episodic Residual codes; unclassified (1 source) Tobacco use; Translations: [Tobacco abuse] Onset: 10-31-2024 Episodic Septicemia (except in labor) (20 sources) Sepsis; Translations: [Sepsis, unspecified organism] Onset: 11-05-2022 Resolved: 11-11-2022 11-11-2022 Episodic Skin and subcutaneous tissue infections (20 sources) Cellulitis of lower leg; Translations: [Cellulitis of right lower limb] Onset: 11-06-2022 11-11-2022 Episodic Spondylosis; intervertebral disc disorders; other back problems (20 sources) Neck pain; Translations: [Cervicalgia] Onset: 08-06-2015 Resolved: 07-24-2019 03-26-2018 Episodic Urinary tract infections (3 sources) Acute cystitis; Translations: [Acute cystitis without hematuria] Onset: 12-17-2024 12-17-2024 Episodic Viral infection (20 sources) Disease caused by 2019-nCoV; Translations: [COVID-19] Onset: 11-06-2023 11-13-2023 Episodic Results Test Name Value Interpretation Reference Range Facility US VENOUS INCOMPETENCY UNL V LABon 06-11-2025 US VENOUS INCOMPETENCY UNL VAS LAB Normal [facility] CNOVon 06-04-2025 CNOV Normal [facility] ULTRASOUND GUIDANCE FOR VENO US ABLATIONon 06-04-2025 ULTRASOUND GUIDANCE FOR VENOUS ABLATION Normal [facility] CNPNon 05-27-2025 CNPN Normal [facility] CNPNon 05-19-2025 CNPN Normal [facility] TITO SCREENING W TOMOon 05-11 TITO SCREENING W GHAZAL Normal [facility] CNOVon 04-29-2025 CNOV Normal [facility] CNOVon 04-14-2025 CNOV Normal [facility] US VENOUS INCOMPETENCY FRANCISCO V LABon 04-14-2025 US VENOUS INCOMPETENCY FRANCISCO VAS LAB Normal [facility] CNCOon 03-11-2025 CNCO Letter Text Normal [facility] CNPNon 02-13-2025 CNPN Normal [facility] CNOVon 02-11-2025 CNOV Normal [facility] CNOVon 02-09-2025 CNOV Normal [facility] Hemoccult Stl Ql IAon 2024 Lower GI hemoglobin IA Ql (Stl) Negative Normal Negative [facility] Comment on above: Order Comment: Speci men Type: STOOL SPECIMENOrdering Facility: [facility] Address: [address] [place] [address] Performed By: #### 2 [id number] ####[facility] LABCLIA [id number] [place] [address] [place] XR THORACIC 3V AP/LAT/SWIMME RSon 02-05-2025 XR THORACIC 3V AP/LAT/SWIMMERS Normal [facility] CNOVon 02-04-2025 CNOV Office Visit (CVAKPO ) FLORECITA HEALY ([id number]) 1940 F Date Time Provider Department 02/04/25 10:30 AM AMY FRY During your visit today, we recorded the following information about you: Pulse Blood pressure Weight Height 79/minute 99/73 78.5 kg 1.651 m Amy Fry APRN.[facility] 02/04/2025 11:48 AM Signed [facility] Established Visit Consultation is requested by: Aylin Paz [id number] [facility] [id number] PCP: [place] [address] [facility] Florecita Healy is a 84 year old female presenting for hospital discharge follow up. Admitted to [facility] 10/20-10/27/24. From discharge summary aken from the admitting HPI: 84 yo F with PMH HTN, HLD, smoking (40 py), CKD 3, hypothyroidism, and venous insufficiency. Most recent LDL was 63 and A1c was 5.0%. Of note, the patient reports having BP in the 150-180/80 range at home. Presenting with L sided weakness. LKW 11 pm on 10/18/24. She then woke up the next morning with L leg weakness, making it difficult to ambulate. She states that her L arm was subjectively weak as well but was much more mild. Denies any other symptoms, including speech changes, vision changes, or sensory changes. She presented to [place] ED, where NIHSS was 2 (LFD and dysarthria). iGluc was 115. iBP was 175/77. CTH without acute process. 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 She was loaded on 300 mg Plavix and transferred to [facility] for further management. The patient was admitted to the neurological step down unit, under the stroke service, for closer monitoring. Routine stroke labs were done, significant for: LDL 87, hemoglobin A1C 5, and TSH 3.850. The patient passed the initial swallow screen, tolerating an oral diet well. The patient was started on Lovenox and IPCs for DVT prophylaxis. MRI brain, stroke protocol, revealed a right omlos radiata infarct. Echo with LVH, no wall motion abnormality, left atrium normal, and ejection fraction 59%. Etiology of infarct small vessel disease versus intracranial athero disease. 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 The patient was started on Aspirin and Plavix for stroke prevention. Patient should continue dual antiplatelet therapy for 90 days then monotherapy with Aspirin. Protonix started for GI prophylaxis while on dual antiplatelets. The patient was also started on Atorvastatin 80 for stroke prevention. Patient with uncontrolled hypertension. Patient originally with permissive hypertension then home Losartan started with a plan to bring the patient to normotension slowly. Avoid hypotension due to high risk of hypoperfusion due to severe intracranial athero. Losartan continued to be increased and her home Amlodipine was changed to Nifedipine. Her home coreg was not resumed at this time, but should be restarted if needed. The patient was educated on the importance of home blood pressure monitoring. She was also educated on the importance of smoking cessation, a healthy diet, and exercise. Lung nodule seen on CTA, incidental finding. Plan for CT chest in 6-12 months for stability. Physical and occupational therapy was consulted, recommending home therapy. The patient refused, as she does not want anyone in her house. She was discharged on 10/23, with outpatient therapy. Reason for Visit: ischemic stroke Date of Last Event: 10/20/2024 Antiplatelets/Anticoag ulants: Aspirin Statins: Atorvastatin Residual Deficits: Motor weakness Current PT/OT/ST: None Current use of a mobility aid for walking/getting around: None Office visit with Lionel Laswon CNP 11/03/24 Not smoking Blood pressure better controlled Left side weakness more noticeable in the left leg than arm No numbness Lives alone with dog Family lives close by Fell the other night--tripped over some clothes on the floor Legs swollen Compliant with medications - vision not changed but there is pain behind eyeballs per patient--temporal throbbing no scalp irritation Office Visit 02/04/25 -presents for follow up -denies any new stroke-like symptoms -left side weakness better -fell shortly after stroke in October and since then has had thoracic back pain towards the left side -ice, heat, tylenol doesn't help. Feels like no one is listening to her about this -BLE edema- PCP referred to vascular medicine for venous insufficiency, scheduled for 02/09 -aspirin + plavix x 90 days completed a few kerr ago, getting bruises but she hopes they will get better without the plavix -now on ASA monotherapy -lipitor 80mg -BP 99/73 - at home 120-135 - had a oatmeal cake today - (more content not included)... Normal [facility] CNPNon 02-04-2025 CNPN Normal [facility] Basic metabolic 2000 panelon 02-03-2025 Anion gap [Moles/Vol] 12 mmol/L Normal 8-15 [facility] Comment on above: Order Comment: Speci men Type: BLOOD SPECIMENOrdering Facility: [facility] Address: [address] [place] [address] Performed By: #### 2 4321-2 ####[facility] [id number] [place] [address] [place] Calcium [Mass/Vol] 9.8 mg/dL Normal 8.5-10.[address] [facility] Comment on above: Order Comment: Speci men Type: BLOOD SPECIMENOrdering Facility: [facility] Address: [address] [place], [place] [address] Performed By: #### 2 4321-2 ####[facility] ERWNCLIA [id number] [place] [address] [place] Chloride [Moles/Vol] 105 mmol/L Normal 98-107 [facility] Comment on above: Order Comment: Speci men Type: BLOOD SPECIMENOrdering Facility: [facility] Address: [address] [place] [address] Performed By: #### 2 4321-2 ####[facility]ANT[facility] MILLWNCLIA [id number] [place] [address] [place] CO2 [Moles/Vol] 26 mmol/L Normal 22-30 [facility] Comment on above: Order Comment: Speci men Type: BLOOD SPECIMENOrdering Facility: [facility] Address: [address] [place] [place] [address] Performed By: #### 2 4321-2 ####[facility] SANT[facility] NARAYANWATERBURYNCYaneth [id number] [place] [address] [place] Creatinine [Mass/Vol] 1.04 mg/dL High 0.58-0.96 [facility] Comment on above: Order Comment: Speci men Type: BLOOD SPECIMENOrdering Facility: [facility] Address: [address] [place] [address] Performed By: #### 2 4321-2 ####[facility] [id number] [place] [address] [place] Creatinine and Glomerular filtration rate.predicted panel (S/P/Bld) 54 mL/min/1.73m??? Low >=60 [facility] Comment on above: Order Comment: Speci men Type: BLOOD SPECIMENOrdering Facility: [facility] Address: [address] [place] [address] Result Comment: Callie mated Glomerular Filtration Rate (eGFR) is calculated using the 2020 CKD-EPI creatinine equation. This equation utilizes serum creatinine, sex, and age as parameters. The creatinine assay has traceable calibration to isotope dilution-mass spectrometry. Refer to KDIGO guidelines for clinical interpretation. In patients with unstable renal function, e.g. those with acute kidney injury, the eGFR may not accurately reflect actual GFR. Performed By: #### 2 4321-2 ####[facility]PITALNCLIA [id number] [place] [address] [place] Glucose [Mass/Vol] 96 mg/dL Normal 74-[address] [facility] Comment on above: Order Comment: Speci men Type: BLOOD SPECIMENOrdering Facility: [facility] Address: [address] [place] [address] Result Comment: The [place] Diabetes Association (ADA) provides guidance for cutoff values for fasting glucose and random glucose. The ADA defines fasting as no caloric intake for at least 8 hours. Fasting plasma glucose results between 100 to 125 mg/dL indicate increased risk for diabetes (prediabetes).Fasting plasma glucose results greater than or equal to 126 mg/dL meet the criteria for diagnosis of diabetes. In the absence of unequivocal hyperglycemia, results should be confirmed by repeat testing. In a patient with classic symptoms of hyperglycemia or hyperglycemic crisis, random plasma glucose results greater than or equal to 200 mg/dL meet the criteria for diagnosis of diabetes.Reference: Standards of Medical Care in Diabetes 2016, [place] Diabetes Association. Diabetes Care. 2016.39(Suppl 1). Performed By: #### 2 4321-2 ####[facility] MILLTOWNCLIA [id number] [place] [address] [place] Potassium [Moles/Vol] 3.9 mmol/L Normal 3.7-5.1 [facility] Comment on above: Order Comment: Speci men Type: BLOOD SPECIMENOrdering Facility: [facility] Address: [address] [place] [address] Performed By: #### 2 4321-2 ####[facility] ERWNCLIA [id number] [place] [address] [place] Sodium [Moles/Vol] 143 mmol/L Normal 136-[address] [facility] Comment on above: Order Comment: Speci men Type: BLOOD SPECIMENOrdering Facility: [facility] Address: [address] [place] [address] Performed By: #### 2 4321-2 ####[facility] MILLTOWNCLIA [id number] [place] [address] [place] Urea nitrogen [Mass/Vol] 18 mg/dL Normal 7-21 [facility] Comment on above: Order Comment: Speci men Type: BLOOD SPECIMENOrdering Facility: [facility] Address: [address] [place] [address] Performed By: #### 2 4321-2 ####[facility] MILLTOWNCLIA [id number] [place] [address] [place] CBC W Auto Differential pane l (Bld)on 02-03-2025 Basophils (Bld) [#/Vol] 0.04 10*3/uL Normal <0.11 [facility] Comment on above: Order Comment: Speci men Type: BLOOD SPECIMENOrdering Facility: [facility] Address: [address] [place] [address] Performed By: #### 5 7021-8 ####[facility] [id number] [place] [address] [place] Basophils/100 WBC (Bld) 0.7 % Normal [facility] Comment on above: Order Comment: Speci men Type: BLOOD SPECIMENOrdering Facility: [facility] Address: [address] [place] [address] Performed By: #### 5 7021-8 ####[facility] [id number] [place] [address] [place] Differential cell count method Nom (Bld) Auto Normal [facility] Comment on above: Order Comment: Speci men Type: BLOOD SPECIMENOrdering Facility: [facility] Address: [address] [place] [address] Performed By: #### 5 7021-8 ####[facility] [id number] [place] [address] [place] Eosinophils (Bld) [#/Vol] 0.09 10*3/uL Normal <0.46 [facility] Comment on above: Order Comment: Speci men Type: BLOOD SPECIMENOrdering Facility: [facility] Address: [address] [place] [address] Performed By: #### 5 7021-8 ####[facility] HOSPITALLIA [id number] [place] [address] [place] Eosinophils/100 WBC (Bld) 1.6 % Normal [facility] Comment on above: Order Comment: Speci men Type: BLOOD SPECIMENOrdering Facility: [facility] Address: [address] [place] [place] [address] Performed By: #### 5 7021-8 ####[facility]ITALNCCENTR[facility] [id number] [place] [address] [place] Erythrocyte distribution width (RBC) [Ratio] 15.1 % High 11.5-15.0 [facility] Comment on above: Order Comment: Speci men Type: BLOOD SPECIMENOrdering Facility: [facility] Address: [address] [place] [address] Performed By: #### 5 7021-8 ####[facility] HOSPITALNCLI [id number] [place] [address] [place] Hematocrit (Bld) [Volume fraction] 36.6 % Normal 36.0-46.0 [facility] Comment on above: Order Comment: Speci men Type: BLOOD SPECIMENOrdering Facility: [facility] Address: [address] [place] [address] Performed By: #### 5 7021-8 ####[facility] [id number] [place] [address] [place] Hemoglobin (Bld) [Mass/Vol] 11.4 g/dL Low 11.5-15.5 [facility] Comment on above: Order Comment: Speci men Type: BLOOD SPECIMENOrdering Facility: [facility] Address: [address] [place] [address] Performed By: #### 5 7021-8 ####[facility] [id number] [place] [address] [place] Immature granulocytes (Bld) [#/Vol] 10*3/uL Normal <0.10 [facility] Comment on above: Order Comment: Speci men Type: BLOOD SPECIMENOrdering Facility: [facility] Address: [address] [place] [address] Performed By: #### 5 7021-8 ####[facility]PITALNCLIA [id number] [place] [address] [place] [facility] Immature granulocytes/100 WBC (Bld) 0.2 % Normal [facility] Comment on above: Order Comment: Speci men Type: BLOOD SPECIMENOrdering Facility: [facility] Address: [address] [place] [address] Performed By: #### 5 7021-8 ####[facility] HOSPITALNCLI [id number] [place] [address] [place] Lymphocytes (Bld) [#/Vol] 1.39 10*3/uL Normal 1.00-4.00 [facility] Comment on above: Order Comment: Speci men Type: BLOOD SPECIMENOrdering Facility: [facility] Address: [address] [place] [address] Performed By: #### 5 7021-8 ####[facility] [id number] [place] [address] [place] Lymphocytes/100 WBC (Bld) 25.0 % Normal [facility] Comment on above: Order Comment: Speci men Type: BLOOD SPECIMENOrdering Facility: [facility] Address: [address] [place] [address] Performed By: #### 5 7021-8 ####[facility]OSPITALNCLIA [id number] [place] [address] [place] MCH (RBC) [Entitic mass] 26.8 pg Normal 26.0-34.0 [facility] Comment on above: Order Comment: Speci men Type: BLOOD SPECIMENOrdering Facility: [facility] Address: [address] [place] [address] Performed By: #### 5 7021-8 ####[facility] HOSPITALNCLI [id number] [place] [address] [place] MCHC (RBC) [Mass/Vol] 31.1 g/dL Normal 30.5-36.0 [facility] Comment on above: Order Comment: Speci men Type: BLOOD SPECIMENOrdering Facility: [facility] Address: [address] [place] [address] Performed By: #### 5 7021-8 ####[facility] HOSPITALGAYLIA [id number] [place] [address] [place] MCV (RBC) [Entitic vol] 86.1 fL Normal 80.0-100.0 [facility] Comment on above: Order Comment: Speci men Type: BLOOD SPECIMENOrdering Facility: [facility] Address: [address] [place] [address] Performed By: #### 5 7021-8 ####[facility]OSPITALGAYCENTRAL VALLEY [facility] [id number] [place] [address] [place] Monocytes (Bld) [#/Vol] 0.52 10*3/uL Normal <0.87 [facility] Comment on above: Order Comment: Speci men Type: BLOOD SPECIMENOrdering Facility: [facility] Address: [address] [place] [address] Performed By: #### 5 7021-8 ####[facility] HOSPITALRAJATA [id number] [place] [address] [place] Monocytes/100 WBC (Bld) 9.4 % Normal [facility] Comment on above: Order Comment: Speci men Type: BLOOD SPECIMENOrdering Facility: [facility] Address: [address] [place] [address] Performed By: #### 5 7021-8 ####[facility] HOSPITALLIA [id number] [place] [address] [place] Neutrophils (Bld) [#/Vol] 3.50 10*3/uL Normal 1.45-7.50 [facility] Comment on above: Order Comment: Speci men Type: BLOOD SPECIMENOrdering Facility: [facility] Address: [address] [place] [address] Performed By: #### 5 7021-8 ####[facility] [id number] [place] [address] [place] Neutrophils/100 WBC (Bld) 63.1 % Normal [facility] Comment on above: Order Comment: Speci men Type: BLOOD SPECIMENOrdering Facility: [facility] Address: [address] [place] [address] Performed By: #### 5 7021-8 ####[facility] [id number] [place] [address] [place] Nucleated RBC (Bld) [#/Vol] 10*3/uL Normal <0.01 [facility] Comment on above: Order Comment: Speci men Type: BLOOD SPECIMENOrdering Facility: [facility] Address: [address] [place] [address] Performed By: #### 5 7021-8 ####[facility] [id number] [place] [address] [place] Nucleated RBC/100 WBC (Bld) [Ratio] 0.0 /100 WBC Normal [facility] Comment on above: Order Comment: Speci men Type: BLOOD SPECIMENOrdering Facility: [facility] Address: [address] [place] [address] Performed By: #### 5 7021-8 ####[facility] [id number] [place] [address] [place] Platelet mean volume (Bld) [Entitic vol] 9.4 fL Normal 9.0-12.7 [facility] Comment on above: Order Comment: Speci men Type: BLOOD SPECIMENOrdering Facility: [facility] Address: [address] [place] [address] Performed By: #### 5 7021-8 ####[facility] BIANCLIA [id number] [place] [address] [place] Platelets (Bld) [#/Vol] 166 10*3/uL Normal 150-400 [facility] Comment on above: Order Comment: Speci men Type: BLOOD SPECIMENOrdering Facility: [facility] Address: [address] [place] [place] [address] Performed By: #### 5 7021-8 ####[facility] NARAYANWATERBURYNCLIA [id number] [place] [address] [place] RBC (Bld) [#/Vol] 4.25 10*6/uL Normal 3.90-5.20 [facility] Comment on above: Order Comment: Speci men Type: BLOOD SPECIMENOrdering Facility: [facility] Address: [address] [place] [address] Performed By: #### 5 7021-8 ####[facility] HOSPITALNCTESSAA [id number] [place] [address] [place] WBC (Bld) [#/Vol] 5.55 10*3/uL Normal 3.70-11.00 [facility] Comment on above: Order Comment: Speci men Type: BLOOD SPECIMENOrdering Facility: [facility] Address: [address] [place], [place] [address] Performed By: #### 5 7021-8 ####[facility] HOSPITALNCLIA [id number] [place] [address] [place] Ferritin SerPl-mCncon 2024 Ferritin [Mass/Vol] 89.8 ng/mL Normal 14.7-205.1 [facility] Comment on above: Order Comment: Speci men Type: BLOOD SPECIMENOrdering Facility: [facility] Address: [address] [place] [address] Performed By: #### 5 0190-8, 9, 8, 2275- ####[facility] LABIA [id number] [place] [address] [place] Folate SerPl-ncon 02-04-20 25 Folate [Mass/Vol] ng/mL Normal >4.7 [facility] Comment on above: Order Comment: Speci men Type: BLOOD SPECIMENOrdering Facility: [facility] Address: [address] [place] [address] Result Comment: A re sult of > 20 ng/mL is not necessarily indicative of a pathologic or treatable condition: it reflects a limitation of the test methodology.Assay reference range: 4.8 to 24.2 ng/mL. Suitable for detection of folate deficiency.Reference:Folate III (Folate III) [package insert V 1.0 Divehi]. [facility], [place], [place]: September 2015. Performed By: #### 5 0190-8, 9, 2284-06, 2276-02 ####[facility] LABIA [id number] [place] [id number] [place] Iron and Iron binding capaci panel 02-03-2025 Iron [Mass/Vol] 60 ug/dL Normal 41-186 [facility] Comment on above: Order Comment: Speci men Type: BLOOD SPECIMENOrdering Facility: [facility] Address: [address] [place] [address] Performed By: #### 5 0190-8, 9, 2284-06, 2276-02 ####[facility] LABIA [id number] [place] [address] [place] Iron binding capacity [Mass/Vol] 268 ug/dL Normal 232-386 [facility] Comment on above: Order Comment: Speci men Type: BLOOD SPECIMENOrdering Facility: [facility] Address: [address] [place] [address] Performed By: #### 5 0190-8, 9, 2284-06, 2275-4 ####[facility] LABCLIA [id number] [address] [address] [place] Iron/TIBC [Molar ratio] 22.4 % Normal 15.0-57.0 [facility] Comment on above: Order Comment: Speci men Type: BLOOD SPECIMENOrdering Facility: [facility] Address: [address] [place], [place] [address] Performed By: #### 5 0190-8, 9, 8, 4 ####[facility] LABCLIA [id number] [address] [address] [place] Vit B12 [facility] 025 Cobalamin (Vitamin B12) [Mass/Vol] pg/mL High 232-1245 [facility] Comment on above: Order Comment: Speci men Type: BLOOD SPECIMENOrdering Facility: [facility] Address: [address] [place], [place] [address] Performed By: #### 5 0190-8, 9, 8, 2276-02 ####[facility] LABCLIA [id number] [place] [id number] [place] CNPNon 01-27-2025 CNPN Normal [facility] Basic metabolic 2000 panelon 01-26-2025 Anion gap [Moles/Vol] 11 mmol/L Normal 8-15 [facility] Comment on above: Order Comment: Speci men Type: BLOOD SPECIMENOrdering Facility: [facility] Address: [address] [place], [place] [address] Performed By: #### 3 3762-6, 3016-3, 06254-5 ####[facility] LABCLIA [id number] [place] [id number] [place] Calcium [Mass/Vol] 9.5 mg/dL Normal 8.5-10.[address] [facility] Comment on above: Order Comment: Speci men Type: BLOOD SPECIMENOrdering Facility: [facility] Address: [address] [place] [address] Performed By: #### 3 3762-6, 3016-3, 25517-2 ####[facility] LABIA [id number] [place] [id number] [place] Chloride [Moles/Vol] 106 mmol/L Normal 98-107 [facility] Comment on above: Order Comment: Speci men Type: BLOOD SPECIMENOrdering Facility: [facility] Address: [address] [place] [address] Performed By: #### 3 3762-6, 3016-3, 15284-5 ####[facility] LABIA [id number] [place] [address] [place] CO2 [Moles/Vol] 26 mmol/L Normal 22-30 [facility] Comment on above: Order Comment: Speci men Type: BLOOD SPECIMENOrdering Facility: [facility] Address: [address] [place] [address] Performed By: #### 3 3762-6, 3016-3, 01800-2 ####[facility] LABIA [id number] [place] [address] [place] Creatinine [Mass/Vol] 1.09 mg/dL High 0.58-0.96 [facility] Comment on above: Order Comment: Speci men Type: BLOOD SPECIMENOrdering Facility: [facility] Address: [address] [place] [address] Performed By: #### 3 3762-6, 3016-3, 33574-7 ####[facility] LABIA [id number] [place] [id number] [place] Creatinine and Glomerular filtration rate.predicted panel (S/P/Bld) 51 mL/min/1.73m??? Low >=60 [facility] Comment on above: Order Comment: Speci men Type: BLOOD SPECIMENOrdering Facility: [facility] Address: [address] [place] [address] [place] [address] Result Comment: Callie mated Glomerular Filtration Rate (eGFR) is calculated using the 2020 CKD-EPI creatinine equation. This equation utilizes serum creatinine, sex, and age as parameters. The creatinine assay has traceable calibration to isotope dilution-mass spectrometry. Refer to KDIGO guidelines for clinical interpretation. In patients with unstable renal function, e.g. those with acute kidney injury, the eGFR may not accurately reflect actual GFR. Performed By: #### 3 3762-6, 3016-3, 01854-5 ####[facility] LABCLIA [id number] [place] [id number] [place] Glucose [Mass/Vol] 100 mg/dL High 74-[address] [facility] Comment on above: Order Comment: Laura mejía Type: BLOOD SPECIMENOrdering Facility: [facility] Address: [address] [place] [address] Result Comment: The [place] Diabetes Association (ADA) provides guidance for cutoff values for fasting glucose and random glucose. The ADA defines fasting as no caloric intake for at least 8 hours. Fasting plasma glucose results between 100 to 125 mg/dL indicate increased risk for diabetes (prediabetes).Fasting plasma glucose results greater than or equal to 126 mg/dL meet the criteria for diagnosis of diabetes. In the absence of unequivocal hyperglycemia, results should be confirmed by repeat testing. In a patient with classic symptoms of hyperglycemia or hyperglycemic crisis, random plasma glucose results greater than or equal to 200 mg/dL meet the criteria for diagnosis of diabetes.Reference: Standards of Medical Care in Diabetes 2016, [place] Diabetes Association. Diabetes Care. 2016.39(Suppl 1). Performed By: #### 3 3762-6, 3016-3, 26998-2 ####[facility] LABIA [id number] [place] [id number] [place] Potassium [Moles/Vol] 3.7 mmol/L Normal 3.7-5.1 [facility] Comment on above: Order Comment: Laura mejía Type: BLOOD SPECIMENOrdering Facility: [facility] Address: [address] [place] [address] Performed By: #### 3 3762-6, 3016-3, 28115-6 ####[facility] LABCLIA [id number] [address] [address] [place] Sodium [Moles/Vol] 143 mmol/L Normal 136-[address] [facility] Comment on above: Order Comment: Speci men Type: BLOOD SPECIMENOrdering Facility: [facility] Address: [address] [place] [address] Performed By: #### 3 3762-6, 3016-3, 71810-9 ####[facility] LABCLIA [id number] [place] [address] [place] Urea nitrogen [Mass/Vol] 26 mg/dL High 7-21 [facility] Comment on above: Order Comment: Speci men Type: BLOOD SPECIMENOrdering Facility: [facility] Address: [address] [place] [address] Performed By: #### 3 3762-6, 3016-3, 88785-5 ####[facility] LABCLIA [id number] [place] [id number] [place] CBC W Auto Differential pane l (Bld)on 01-26-2025 Basophils (Bld) [#/Vol] 10*3/uL Normal <0.11 [facility] Comment on above: Order Comment: Speci men Type: BLOOD SPECIMENOrdering Facility: [facility] Address: [address] [place] [address] Performed By: #### 5 7021-8 ####[facility] LABCLIA [id number] [place] [id number] [place] Basophils/100 WBC (Bld) 0.5 % Normal [facility] Comment on above: Order Comment: Speci men Type: BLOOD SPECIMENOrdering Facility: [facility] Address: [address] [place] [address] Performed By: #### 5 7021-8 ####[facility] LABCLIA [id number] [place] [address] [place] Differential cell count method Nom (Bld) Auto Normal [facility] Comment on above: Order Comment: Speci men Type: BLOOD SPECIMENOrdering Facility: [facility] [facility] Address: [address] [place] [address] Performed By: #### 5 7021-8 ####[facility] LABCLIA [id number] [place] [address] [place] Eosinophils (Bld) [#/Vol] 0.06 10*3/uL Normal <0.46 [facility] Comment on above: Order Comment: Speci men Type: BLOOD SPECIMENOrdering Facility: [facility] Address: [address] [place] [address] Performed By: #### 5 7021-8 ####[facility] LABCLIA [id number] [place] [address] [place] Eosinophils/100 WBC (Bld) 1.4 % Normal [facility] Comment on above: Order Comment: Speci men Type: BLOOD SPECIMENOrdering Facility: [facility] Address: [address] [place] [place] [address] Performed By: #### 5 7021-8 ####[facility] LABCLIA [id number] [place] [address] [place] Erythrocyte distribution width (RBC) [Ratio] 14.9 % Normal 11.5-15.0 [facility] Comment on above: Order Comment: Speci men Type: BLOOD SPECIMENOrdering Facility: [facility] Address: [address] [place] [place] [address] Performed By: #### 5 7021-8 ####[facility] LABCLIA [id number] [place] [address] [place] Hematocrit (Bld) [Volume fraction] 36.0 % Normal 36.0-46.0 [facility] Comment on above: Order Comment: Speci men Type: BLOOD SPECIMENOrdering Facility: [facility] Address: [address] [place] [place] [address] Performed By: #### 5 7021-8 ####[facility] LABIA [id number] [place] [address] [place] Hemoglobin (Bld) [Mass/Vol] 11.0 g/dL Low 11.5-15.5 [facility] Comment on above: Order Comment: Speci men Type: BLOOD SPECIMENOrdering Facility: [facility] Address: [address] [place] [place] [address] Performed By: #### 5 7021-8 ####[facility] LABCLIA [id number] [place] [address] [place] Immature granulocytes (Bld) [#/Vol] 10*3/uL Normal <0.10 [facility] Comment on above: Order Comment: Speci men Type: BLOOD SPECIMENOrdering Facility: [facility] Address: [address] [place] [place] [address] Performed By: #### 5 7021-8 ####[facility] LABIA [id number] [place] [address] [place] Immature granulocytes/100 WBC (Bld) 0.5 % Normal [facility] Comment on above: Order Comment: Speci men Type: BLOOD SPECIMENOrdering Facility: [facility] Address: [address] [place] [place] [address] Performed By: #### 5 7021-8 ####[facility] LABCLIA [id number] [place] [address] [place] Lymphocytes (Bld) [#/Vol] 1.48 10*3/uL Normal 1.00-4.00 [facility] Comment on above: Order Comment: Speci men Type: BLOOD SPECIMENOrdering Facility: [facility] Address: [address] [place] [place] [address] Performed By: #### 5 7021-8 ####[facility] LABCLIA [id number] [place] [address] [place] Lymphocytes/100 WBC (Bld) 33.6 % Normal [facility] Comment on above: Order Comment: Speci men Type: BLOOD SPECIMENOrdering Facility: [facility] Address: [address] [place] [place] [address] Performed By: #### 5 7021-8 ####[facility] LABIA [id number] [place] [address] [place] MCH (RBC) [Entitic mass] 27.2 pg Normal 26.0-34.0 [facility] Comment on above: Order Comment: Speci men Type: BLOOD SPECIMENOrdering Facility: [facility] Address: [address] [place] [address] Performed By: #### 5 7021-8 ####[facility] LABIA [id number] [place] [address] [place] MCHC (RBC) [Mass/Vol] 30.6 g/dL Normal 30.5-36.0 [facility] Comment on above: Order Comment: Speci men Type: BLOOD SPECIMENOrdering Facility: [facility] Address: [address] [place] [place] [address] Performed By: #### 5 7021-8 ####[facility] LABIA [id number] [place] [address] [place] MCV (RBC) [Entitic vol] 88.9 fL Normal 80.0-100.0 [facility] Comment on above: Order Comment: Speci men Type: BLOOD SPECIMENOrdering Facility: [facility] Address: [address] [place] [address] Performed By: #### 5 7021-8 ####[facility] LABIA [id number] [place] [address] [place] Monocytes (Bld) [#/Vol] 0.48 10*3/uL Normal <0.87 [facility] Comment on above: Order Comment: Speci men Type: BLOOD SPECIMENOrdering Facility: [facility] Address: [address] [place] [address] Performed By: #### 5 7021-8 ####[facility] LABCLIA [id number] [address] [address] [place] Monocytes/100 WBC (Bld) 10.9 % Normal [facility] Comment on above: Order Comment: Speci men Type: BLOOD SPECIMENOrdering Facility: [facility] Address: [address] [place] [place] [address] Performed By: #### 5 7021-8 ####[facility] LABCLIA [id number] [place] [address] [place] Neutrophils (Bld) [#/Vol] 2.34 10*3/uL Normal 1.45-7.50 [facility] Comment on above: Order Comment: Speci men Type: BLOOD SPECIMENOrdering Facility: [facility] Address: [address] [place] [place] [address] Performed By: #### 5 7021-8 ####[facility] LABCLIA [id number] [place] [id number] [place] Neutrophils/100 WBC (Bld) 53.1 % Normal [facility] Comment on above: Order Comment: Speci men Type: BLOOD SPECIMENOrdering Facility: [facility] Address: [address] [place] [place] [address] Performed By: #### 5 7021-8 ####[facility] LABCLIA [id number] [address] [address] [place] Nucleated RBC (Bld) [#/Vol] 10*3/uL Normal <0.01 [facility] Comment on above: Order Comment: Speci men Type: BLOOD SPECIMENOrdering Facility: [facility] Address: [address] [place], [place] [address] Performed By: #### 5 7021-8 ####[facility] LABCLIA [id number] [place] [address] [place] Nucleated RBC/100 WBC (Bld) [Ratio] 0.0 /100 WBC Normal [facility] Comment on above: Order Comment: Speci men Type: BLOOD SPECIMENOrdering Facility: [facility] Address: [address] [place] [address] Performed By: #### 5 7021-8 ####[facility] LABCLIA [id number] [place] [address] [place] Platelet mean volume (Bld) [Entitic vol] 11.0 fL Normal 9.0-12.7 [facility] Comment on above: Order Comment: Speci men Type: BLOOD SPECIMENOrdering Facility: [facility] Address: [address] [place] [place] [address] Performed By: #### 5 7021-8 ####[facility] LABCLIA [id number] [place] [address] [place] Platelets (Bld) [#/Vol] 176 10*3/uL Normal 150-400 [facility] Comment on above: Order Comment: Speci men Type: BLOOD SPECIMENOrdering Facility: [facility] Address: [address] [place] [place] [address] Performed By: #### 5 7021-8 ####[facility] LABCLIA [id number] [place] [address] [place] RBC (Bld) [#/Vol] 4.05 10*6/uL Normal 3.90-5.20 [facility] Comment on above: Order Comment: Speci men Type: BLOOD SPECIMENOrdering Facility: [facility] Address: [address] [place] [place] [address] Performed By: #### 5 7021-8 ####[facility] LABCLIA [id number] [place] [id number] [place] WBC (Bld) [#/Vol] 4.40 10*3/uL Normal 3.70-11.00 [facility] Comment on above: Order Comment: Speci men Type: BLOOD SPECIMENOrdering Facility: [facility] Address: [address] [place] [place] [address] Performed By: #### 5 7021-8 ####[facility] LABCLIA [id number] [place] [address] [place] CNOVon 01-26-2025 CNOV Normal [facility] NT-proBNP SerPl-mCncon 01-26 Natriuretic peptide.B prohormone N-Terminal [Mass/Vol] 762 pg/mL High <450 [facility] Comment on above: Order Comment: Speci men Type: BLOOD SPECIMENOrdering Facility: [facility] Address: [address] [place] [place] [address] Performed By: #### 3 3762-6, 3016-3, 48920-8 ####[facility] LABCLIA [id number] [place] [address] [place] TSH SerPl-aCncon 01-26-2025 TSH Qn 3.170 m[IU]/L Normal 0.270-4.200 [facility] Comment on above: Order Comment: Speci men Type: BLOOD SPECIMENOrdering Facility: [facility] Address: [address] [place] [place] [address] Performed By: #### 3 3762-6, 3016-3, 18858-5 ####[facility] LABCLIA [id number] [place] [address] [place] XR CHEST 2V FRONTAL/LATon XR CHEST 2V FRONTAL/LAT Normal [facility] CNPNon 12-19-2024 CNPN Normal [facility] Bacteria Ur Culton Bacteria identified Cx Nom (U) Abnormal [facility] Comment on above: Performed By: #### 6 30-4 ####[facility] LABCLIA [id number] [place] [id number] [place] CNOVon 12-17-2024 CNOV Normal [facility] UA DIP, URINE (POC)on 2024 BILIRUBIN UA (POCT) Negative Negative [facility] CLARITY UA (POCT) Clear [facility] COLOR UA (POCT) Yellow [facility] GLUCOSE UA (POCT) Negative Negative mg/dL [facility] Hemoglobin Ql (U) Trace-intact Abnormal Negative [facility] Interpretation and review of laboratory results Abnormal [facility] KETONE UA (POCT) Negative Negative mg/dL [facility] LEUKOCYTES UA (POCT) Small Abnormal [facility] NITRITE UA (POCT) Positive Abnormal Negative [facility] PH UA (POCT) 5.5 4.5 - 8.[address] [facility] Protein Ql (U) 100 mg/dL Abnormal Negative [facility] SPECIFIC GRAVITY UA (POCT) >=1.030 1.005 - 1.[address] [facility] UROBILINOGEN UA (POCT) 0.2 Betina l E.U./dL [facility] Location:[facility], [address] [place] [address], [place], [place], [address] [place] [address] [address] [facility] CNPNon 12-05-2024 CNPN Normal [facility] CNPNon 11-24-2024 CNPN Normal [facility] CNPTOUTREACHon 11-21-2024 CNPTOUTREACH Normal [facility] CNOVon 11-19-2024 CNOV Normal [facility] XR LUMBAR 3V AP/LAT/L5-S1on 11-19-2024 XR LUMBAR 3V AP/LAT/L5-S1 Normal [facility] CNPTOUTREACHon 11-14-2024 CNPTOUTREACH Normal [facility] CNPNon 11-13-2024 CNPN Normal [facility] CNPTOUTREACHon 11-11-2024 CNPTOUTREACH Normal [facility] CNPNon 11-10-2024 CNPN Normal [facility] CNPTOUTREACHon 11-10-2024 CNPTOUTREACH Normal [facility] CNPNon 11-07-2024 CNPN Normal [facility] CNPTOUTREACHon 11-07-2024 CNPTOUTREACH Normal [facility] CNPNon 11-06-2024 CNPN Normal [facility] CNOVon 11-03-2024 CNOV Normal [facility] CNOVon 10-31-2024 CNOV Normal [facility] CNPNon 10-30-2024 CNPN Normal [facility] CNPTOUTREACHon 10-29-2024 CNPTOUTREACH Normal [facility] CNPTOUTREACHon 10-28-2024 CNPTOUTREACH Normal [facility] NUTRITIONon 10-27-2024 NUTRITION Normal [facility] THERAPY NTon 10-27-2024 THERAPY NT Normal [facility] Basic metabolic 2000 panelon 10-24-2024 Anion gap [Moles/Vol] 12 mmol/L Normal 8-15 [facility] Comment on above: Order Comment: Speci men Type: BLOOD SPECIMENOrdering Facility: [facility] Address: [address] [place] [address] Performed By: #### 2 4321-2 ####[facility] LABCLIA [id number] [place] [address] [place] Calcium [Mass/Vol] 9.2 mg/dL Normal 8.5-10.[address] [facility] Comment on above: Order Comment: Speci men Type: BLOOD SPECIMENOrdering Facility: [facility] Address: [address] [place] [address] Performed By: #### 2 4321-2 ####[facility] LABCLIA [id number] [place] [address] [place] Chloride [Moles/Vol] 106 mmol/L Normal 98-107 [facility] Comment on above: Order Comment: Speci men Type: BLOOD SPECIMENOrdering Facility: [facility] Address: [address] [place] [address] Performed By: #### 2 4321-2 ####[facility] LABCLIA [id number] [place] [address] [place] CO2 [Moles/Vol] 25 mmol/L Normal 22-30 [facility] Comment on above: Order Comment: Speci men Type: BLOOD SPECIMENOrdering Facility: [facility] Address: [address] [place] [address] Performed By: #### 2 4321-2 ####[facility] LABCLIA [id number] [place] [address] [place] Creatinine [Mass/Vol] 1.06 mg/dL High 0.58-0.96 [facility] Comment on above: Order Comment: Speci men Type: BLOOD SPECIMENOrdering Facility: [facility] Address: [address] [place] [address] Performed By: #### 2 4321-2 ####[facility] LABCLIA [id number] [place] [address] [place] Creatinine and Glomerular filtration rate.predicted panel (S/P/Bld) 53 mL/min/1.73m??? Low >=60 [facility] Comment on above: Order Comment: Speci men Type: BLOOD SPECIMENOrdering Facility: [facility] Address: [address] [place] [place] [address] Result Comment: Callie mated Glomerular Filtration Rate (eGFR) is calculated using the 2020 CKD-EPI creatinine equation. This equation utilizes serum creatinine, sex, and age as parameters. The creatinine assay has traceable calibration to isotope dilution-mass spectrometry. Refer to KDIGO guidelines for clinical interpretation. In patients with unstable renal function, e.g. those with acute kidney injury, the eGFR may not accurately reflect actual GFR. Performed By: #### 2 4321-2 ####[facility] LABCLIA [id number] [place] [address] [place] Glucose [Mass/Vol] 86 mg/dL Normal 74-[address] [facility] Comment on above: Order Comment: Speci men Type: BLOOD SPECIMENOrdering Facility: [facility] Address: [address] [place] [address] Result Comment: The [place] Diabetes Association (ADA) provides guidance for cutoff values for fasting glucose and random glucose. The ADA defines fasting as no caloric intake for at least 8 hours. Fasting plasma glucose results between 100 to 125 mg/dL indicate increased risk for diabetes (prediabetes).Fasting plasma glucose results greater than or equal to 126 mg/dL meet the criteria for diagnosis of diabetes. In the absence of unequivocal hyperglycemia, results should be confirmed by repeat testing. In a patient with classic symptoms of hyperglycemia or hyperglycemic crisis, random plasma glucose results greater than or equal to 200 mg/dL meet the criteria for diagnosis of diabetes.Reference: Standards of Medical Care in Diabetes 2016, [place] Diabetes Association. Diabetes Care. 2016.39(Suppl 1). Performed By: #### 2 4321-2 ####[facility] LABCLIA [id number] [place] [address] [place] Potassium [Moles/Vol] 4.0 mmol/L Normal 3.7-5.1 [facility] Comment on above: Order Comment: Speci men Type: BLOOD SPECIMENOrdering Facility: [facility] Address: [address] [place] [address] Performed By: #### 2 4321-2 ####[facility] LABIA [id number] [place] [address] [place] Sodium [Moles/Vol] 143 mmol/L Normal 136-[address] [facility] Comment on above: Order Comment: Speci men Type: BLOOD SPECIMENOrdering Facility: [facility] Address: [address] [place] [address] Performed By: #### 2 1-2 ####[facility] LABCLIA [id number] [place] [address] [place] Urea nitrogen [Mass/Vol] 24 mg/dL High 7-21 [facility] Comment on above: Order Comment: Speci men Type: BLOOD SPECIMENOrdering Facility: [facility] Address: [address] [place] [address] Performed By: #### 2 4321-2 ####[facility] LABCLIA [id number] [place] [address] [place] CASE MANAGEMon 10-24-2024 CASE MANAGEM Normal [facility] CBC panel Auto (Bld)on 10-24 Erythrocyte distribution width (RBC) [Ratio] 14.4 % Normal 11.5-15.0 [facility] Comment on above: Order Comment: Speci men Type: BLOOD SPECIMENOrdering Facility: [facility] Address: [address] [place] [address] Performed By: #### 5 8410-2 ####[facility] LABIA [id number] [place] [address] [place] Hematocrit (Bld) [Volume fraction] 37.5 % Normal 36.0-46.0 [facility] Comment on above: Order Comment: Speci men Type: BLOOD SPECIMENOrdering Facility: [facility] Address: [address] [place] [address] Performed By: #### 5 8410-2 ####[facility] LABIA [id number] [place] [address] [place] Hemoglobin (Bld) [Mass/Vol] 11.9 g/dL Normal 11.5-15.5 [facility] Comment on above: Order Comment: Speci men Type: BLOOD SPECIMENOrdering Facility: [facility] Address: [address] [place] [address] Performed By: #### 5 8410-2 ####[facility] LABIA [id number] [place] [address] [place] MCH (RBC) [Entitic mass] 27.4 pg Normal 26.0-34.0 [facility] Comment on above: Order Comment: Speci men Type: BLOOD SPECIMENOrdering Facility: [facility] Address: [address] [place] [address] Performed By: #### 5 8410-2 ####[facility] LABIA [id number] [place] [address] [place] MCHC (RBC) [Mass/Vol] 31.7 g/dL Normal 30.5-36.0 [facility] Comment on above: Order Comment: Speci men Type: BLOOD SPECIMENOrdering Facility: [facility] Address: [address] [place] [address] Performed By: #### 5 8410-2 ####[facility] LABCLIA [id number] [place] [address] [place] MCV (RBC) [Entitic vol] 86.2 fL Normal 80.0-100.0 [facility] Comment on above: Order Comment: Speci men Type: BLOOD SPECIMENOrdering Facility: [facility] Address: [address] [place] [address] Performed By: #### 5 8410-2 ####[facility] LABCLIA [id number] [place] [address] [place] Nucleated RBC (Bld) [#/Vol] 10*3/uL Normal <0.01 [facility] Comment on above: Order Comment: Speci men Type: BLOOD SPECIMENOrdering Facility: [facility] Address: [address] [place] [address] Performed By: #### 5 8410-2 ####[facility] LABCLIA [id number] [place] [address] [place] Platelet mean volume (Bld) [Entitic vol] 10.8 fL Normal 9.0-12.7 [facility] Comment on above: Order Comment: Speci men Type: BLOOD SPECIMENOrdering Facility: [facility] Address: [address] [place] [address] Performed By: #### 5 8410-2 ####[facility] LABCLIA [id number] [place] [address] [place] Platelets (Bld) [#/Vol] 157 10*3/uL Normal 150-400 [facility] Comment on above: Order Comment: Speci men Type: BLOOD SPECIMENOrdering Facility: [facility] Address: [address] [place] [address] Performed By: #### 5 8410-2 ####[facility] LABCLIA [id number] [place] [address] [place] RBC (Bld) [#/Vol] 4.35 10*6/uL Normal 3.90-5.20 [facility] Comment on above: Order Comment: Speci men Type: BLOOD SPECIMENOrdering Facility: [facility] Address: [address] [place] [address] Performed By: #### 5 8410-2 ####[facility] LABIA [id number] [place] [address] [place] WBC (Bld) [#/Vol] 5.38 10*3/uL Normal 3.70-11.00 [facility] Comment on above: Order Comment: Speci men Type: BLOOD SPECIMENOrdering Facility: [facility] Address: [address] [place] [address] Performed By: #### 5 8410-2 ####[facility] LABIA [id number] [place] [address] [place] THERAPY NTon 10-24-2024 THERAPY NT Normal [facility] Basic metabolic 2000 panelon 10-23-2024 Anion gap [Moles/Vol] 16 mmol/L High 8-15 [facility] Comment on above: Order Comment: Speci men Type: BLOOD SPECIMENOrdering Facility: [facility] Address: [address] [place] [address] Performed By: #### 2 4321-2 ####[facility] LABIA [id number] [place] [address] [place] Calcium [Mass/Vol] 9.7 mg/dL Normal 8.5-10.[address] [facility] Comment on above: Order Comment: Speci men Type: BLOOD SPECIMENOrdering Facility: [facility] Address: [address] [place] [address] Performed By: #### 2 4321-2 ####[facility] LABCLIA [id number] [place] [address] [place] Chloride [Moles/Vol] 106 mmol/L Normal 98-107 [facility] Comment on above: Order Comment: Speci men Type: BLOOD SPECIMENOrdering Facility: [facility] Address: [address] [place] [address] Performed By: #### 2 4321-2 ####[facility] LABCLIA [id number] [place] [address] [place] CO2 [Moles/Vol] 19 mmol/L Low 22-30 [facility] Comment on above: Order Comment: Speci men Type: BLOOD SPECIMENOrdering Facility: [facility] Address: [address] [place] [address] Performed By: #### 2 4321-2 ####[facility] LABCLIA [id number] [place] [address] [place] Creatinine [Mass/Vol] 1.05 mg/dL High 0.58-0.96 [facility] Comment on above: Order Comment: Speci men Type: BLOOD SPECIMENOrdering Facility: [facility] Address: [address] [place] [address] Performed By: #### 2 4321-2 ####[facility] LABIA [id number] [place] [address] [place] Creatinine and Glomerular filtration rate.predicted panel (S/P/Bld) 53 mL/min/1.73m??? Low >=60 [facility] Comment on above: Order Comment: Speci men Type: BLOOD SPECIMENOrdering Facility: [facility] Address: [address] [place] [address] Result Comment: Callie mated Glomerular Filtration Rate (eGFR) is calculated using the 2020 CKD-EPI creatinine equation. This equation utilizes serum creatinine, sex, and age as parameters. The creatinine assay has traceable calibration to isotope dilution-mass spectrometry. Refer to KDIGO guidelines for clinical interpretation. In patients with unstable renal function, e.g. those with acute kidney injury, the eGFR may not accurately reflect actual GFR. Performed By: #### 2 4321-2 ####[facility] LABCLIA [id number] [place] [address] [place] Glucose [Mass/Vol] 96 mg/dL Normal 74-[address] [facility] Comment on above: Order Comment: Laura mejía Type: BLOOD SPECIMENOrdering Facility: [facility] Address: [address] [place] [address] Result Comment: The [place] Diabetes Association (ADA) provides guidance for cutoff values for fasting glucose and random glucose. The ADA defines fasting as no caloric intake for at least 8 hours. Fasting plasma glucose results between 100 to 125 mg/dL indicate increased risk for diabetes (prediabetes).Fasting plasma glucose results greater than or equal to 126 mg/dL meet the criteria for diagnosis of diabetes. In the absence of unequivocal hyperglycemia, results should be confirmed by repeat testing. In a patient with classic symptoms of hyperglycemia or hyperglycemic crisis, random plasma glucose results greater than or equal to 200 mg/dL meet the criteria for diagnosis of diabetes.Reference: Standards of Medical Care in Diabetes 2016, [place] Diabetes Association. Diabetes Care. 2016.39(Suppl 1). Performed By: #### 2 4321-2 ####[facility] LABCLIA [id number] [place] [id number] [place] Potassium [Moles/Vol] 4.1 mmol/L Normal 3.7-5.1 [facility] Comment on above: Order Comment: Laura mejía Type: BLOOD SPECIMENOrdering Facility: [facility] Address: [address] [place] [address] Performed By: #### 2 4321-2 ####[facility] LABCLIA [id number] [facility] [address] [address] [place] Sodium [Moles/Vol] 141 mmol/L Normal 136-[address] [facility] Comment on above: Order Comment: Speci men Type: BLOOD SPECIMENOrdering Facility: [facility] Address: [address] [place] [address] Performed By: #### 2 4321-2 ####[facility] LABCLIA [id number] [place] [address] [place] Urea nitrogen [Mass/Vol] 27 mg/dL High 7-21 [facility] Comment on above: Order Comment: Speci men Type: BLOOD SPECIMENOrdering Facility: [facility] Address: [address] [place] [address] Performed By: #### 2 4321-2 ####[facility] LABIA [id number] [place] [address] [place] CASE MANAGEMon 10-23-2024 CASE MANAGEM Normal [facility] CBC panel Auto (Bld)on 10-23 Erythrocyte distribution width (RBC) [Ratio] 14.5 % Normal 11.5-15.0 [facility] Comment on above: Order Comment: Speci men Type: BLOOD SPECIMENOrdering Facility: [facility] Address: [address] [place] [address] Performed By: #### 5 8410-2 ####[facility] LABIA [id number] [place] [address] [place] Hematocrit (Bld) [Volume fraction] 38.1 % Normal 36.0-46.0 [facility] Comment on above: Order Comment: Speci men Type: BLOOD SPECIMENOrdering Facility: [facility] Address: [address] [place] [address] Performed By: #### 5 8410-2 ####[facility] LABIA [id number] [place] [address] [place] Hemoglobin (Bld) [Mass/Vol] 12.1 g/dL Normal 11.5-15.5 [facility] Comment on above: Order Comment: Speci men Type: BLOOD SPECIMENOrdering Facility: [facility] Address: [address] [place] [address] Performed By: #### 5 8410-2 ####[facility] LABIA [id number] [place] [address] [place] MCH (RBC) [Entitic mass] 27.1 pg Normal 26.0-34.0 [facility] Comment on above: Order Comment: Speci men Type: BLOOD SPECIMENOrdering Facility: [facility] Address: [address] [place] [address] Performed By: #### 5 8410-2 ####[facility] LABIA [id number] [place] [address] [place] MCHC (RBC) [Mass/Vol] 31.8 g/dL Normal 30.5-36.0 [facility] Comment on above: Order Comment: Speci men Type: BLOOD SPECIMENOrdering Facility: [facility] Address: [address] [place] [address] Performed By: #### 5 8410-2 ####[facility] LABIA [id number] [place] [address] [place] MCV (RBC) [Entitic vol] 85.2 fL Normal 80.0-100.0 [facility] Comment on above: Order Comment: Speci men Type: BLOOD SPECIMENOrdering Facility: [facility] Address: [address] [place] [address] Performed By: #### 5 8410-2 ####[facility] LABIA [id number] [place] [address] [place] Nucleated RBC (Bld) [#/Vol] 10*3/uL Normal <0.01 [facility] Comment on above: Order Comment: Speci men Type: BLOOD SPECIMENOrdering Facility: [facility] Address: [address] [place] [address] Performed By: #### 5 8410-2 ####[facility] LABIA [id number] [place] [address] [place] Platelet mean volume (Bld) [Entitic vol] 10.8 fL Normal 9.0-12.7 [facility] Comment on above: Order Comment: Speci men Type: BLOOD SPECIMENOrdering Facility: [facility] Address: [address] [place] [address] Performed By: #### 5 8410-2 ####[facility] LABCLIA [id number] [place] [address] [place] Platelets (Bld) [#/Vol] 149 10*3/uL Low 150-400 [facility] Comment on above: Order Comment: Speci men Type: BLOOD SPECIMENOrdering Facility: [facility] Address: [address] [place] [address] Performed By: #### 5 8410-2 ####[facility] LABIA [id number] [place] [address] [place] RBC (Bld) [#/Vol] 4.47 10*6/uL Normal 3.90-5.20 [facility] Comment on above: Order Comment: Speci men Type: BLOOD SPECIMENOrdering Facility: [facility] Address: [address] [place] [address] Performed By: #### 5 8410-2 ####[facility] LABIA [id number] [place] [address] [place] WBC (Bld) [#/Vol] 4.76 10*3/uL Normal 3.70-11.00 [facility] Comment on above: Order Comment: Speci men Type: BLOOD SPECIMENOrdering Facility: [facility] Address: [address] [place] [address] Performed By: #### 5 8410-2 ####[facility] LABCLIA [id number] [place] [address] [place] THERAPY NTon 10-23-2024 THERAPY NT Normal [facility] Basic metabolic 2000 panelon 10-22-2024 Anion gap [Moles/Vol] 12 mmol/L Normal 8-15 [facility] Comment on above: Order Comment: Speci men Type: BLOOD SPECIMENOrdering Facility: [facility] Address: [address] [place] [address] Performed By: #### 2 4321-2 ####[facility] LABCLIA [id number] [place] [address] [place] Calcium [Mass/Vol] 9.4 mg/dL Normal 8.5-10.[address] [facility] Comment on above: Order Comment: Speci men Type: BLOOD SPECIMENOrdering Facility: [facility] Address: [address] [place] [address] Performed By: #### 2 4321-2 ####[facility] LABCLIA [id number] [place] [address] [place] Chloride [Moles/Vol] 108 mmol/L High 98-107 [facility] Comment on above: Order Comment: Speci men Type: BLOOD SPECIMENOrdering Facility: [facility] Address: [address] [place] [address] Performed By: #### 2 4321-2 ####[facility] LABCLIA [id number] [place] [address] [place] CO2 [Moles/Vol] 24 mmol/L Normal 22-30 [facility] Comment on above: Order Comment: Speci men Type: BLOOD SPECIMENOrdering Facility: [facility] Address: [address] [place] [address] Performed By: #### 2 4321-2 ####[facility] LABCLIA [id number] [place] [address] [place] Creatinine [Mass/Vol] 1.10 mg/dL High 0.58-0.96 [facility] Comment on above: Order Comment: Speci men Type: BLOOD SPECIMENOrdering Facility: [facility] Address: [address] [place] [address] Performed By: #### 2 4321-2 ####[facility] LABIA [id number] [place] [address] [place] Creatinine and Glomerular filtration rate.predicted panel (S/P/Bld) 50 mL/min/1.73m??? Low >=60 [facility] Comment on above: Order Comment: Laura mejía Type: BLOOD SPECIMENOrdering Facility: [facility] Address: [address] [place] [address] Result Comment: Callie mated Glomerular Filtration Rate (eGFR) is calculated using the 2020 CKD-EPI creatinine equation. This equation utilizes serum creatinine, sex, and age as parameters. The creatinine assay has traceable calibration to isotope dilution-mass spectrometry. Refer to KDIGO guidelines for clinical interpretation. In patients with unstable renal function, e.g. those with acute kidney injury, the eGFR may not accurately reflect actual GFR. Performed By: #### 2 4321-2 ####[facility] LABIA [id number] [place] [address] [place] Glucose [Mass/Vol] 95 mg/dL Normal 74-[address] [facility] Comment on above: Order Comment: Laura mejía Type: BLOOD SPECIMENOrdering Facility: [facility] Address: [address] [place] [address] Result Comment: The [place] Diabetes Association (ADA) provides guidance for cutoff values for fasting glucose and random glucose. The ADA defines fasting as no caloric intake for at least 8 hours. Fasting plasma glucose results between 100 to 125 mg/dL indicate increased risk for diabetes (prediabetes).Fasting plasma glucose results greater than or equal to 126 mg/dL meet the criteria for diagnosis of diabetes. In the absence of unequivocal hyperglycemia, results should be confirmed by repeat testing. In a patient with classic symptoms of hyperglycemia or hyperglycemic crisis, random plasma glucose results greater than or equal to 200 mg/dL meet the criteria for diagnosis of diabetes.Reference: Standards of Medical Care in Diabetes 2016, [place] Diabetes Association. Diabetes Care. 2016.39(Suppl 1). Performed By: #### 2 4321-2 ####[facility] LABCLIA [id number] [place] [address] [place] Potassium [Moles/Vol] 3.9 mmol/L Normal 3.7-5.1 [facility] Comment on above: Order Comment: Speci men Type: BLOOD SPECIMENOrdering Facility: [facility] Address: [address] [place] [address] Performed By: #### 2 4321-2 ####[facility] LABCLIA [id number] [place] [address] [place] Sodium [Moles/Vol] 144 mmol/L Normal 136-[address] [facility] Comment on above: Order Comment: Speci men Type: BLOOD SPECIMENOrdering Facility: [facility] Address: [address] [place] [address] Performed By: #### 2 4321-2 ####[facility] LABCLIA [id number] [place] [address] [place] Urea nitrogen [Mass/Vol] 23 mg/dL High 7-21 [facility] Comment on above: Order Comment: Speci men Type: BLOOD SPECIMENOrdering Facility: [facility] Address: [address] [place] [address] Performed By: #### 2 4321-2 ####[facility] LABCLIA [id number] [place] [address] [place] CBC panel Auto (Bld)on 10-22 Erythrocyte distribution width (RBC) [Ratio] 14.4 % Normal 11.5-15.0 [facility] Comment on above: Order Comment: Speci men Type: BLOOD SPECIMENOrdering Facility: [facility] Address: [address] [place] [address] Performed By: #### 5 8410-2 ####[facility] LABCLIA [id number] [place] [address] [place] Hematocrit (Bld) [Volume fraction] 37.7 % Normal 36.0-46.0 [facility] Comment on above: Order Comment: Speci men Type: BLOOD SPECIMENOrdering Facility: [facility] Address: [address] [place] [address] Performed By: #### 5 8410-2 ####[facility] LABIA [id number] [place] [address] [place] Hemoglobin (Bld) [Mass/Vol] 11.9 g/dL Normal 11.5-15.5 [facility] Comment on above: Order Comment: Speci men Type: BLOOD SPECIMENOrdering Facility: [facility] Address: [address] [place] [address] Performed By: #### 5 8410-2 ####[facility] LABIA [id number] [place] [address] [place] MCH (RBC) [Entitic mass] 26.9 pg Normal 26.0-34.0 [facility] Comment on above: Order Comment: Speci men Type: BLOOD SPECIMENOrdering Facility: [facility] Address: [address] [place] [address] Performed By: #### 5 8410-2 ####[facility] LABIA [id number] [place] [address] [place] MCHC (RBC) [Mass/Vol] 31.6 g/dL Normal 30.5-36.0 [facility] Comment on above: Order Comment: Speci men Type: BLOOD SPECIMENOrdering Facility: [facility] Address: [address] [place] [address] Performed By: #### 5 8410-2 ####[facility] LABIA [id number] [place] [address] [place] MCV (RBC) [Entitic vol] 85.3 fL Normal 80.0-100.0 [facility] Comment on above: Order Comment: Speci men Type: BLOOD SPECIMENOrdering Facility: [facility] Address: [address] [place] [address] Performed By: #### 5 8410-2 ####[facility] LABCLIA [id number] [place] [address] [place] Nucleated RBC (Bld) [#/Vol] 10*3/uL Normal <0.01 [facility] Comment on above: Order Comment: Speci men Type: BLOOD SPECIMENOrdering Facility: [facility] Address: [address] [place] [address] Performed By: #### 5 8410-2 ####[facility] LABIA [id number] [place] [address] [place] Platelet mean volume (Bld) [Entitic vol] 10.3 fL Normal 9.0-12.7 [facility] Comment on above: Order Comment: Speci men Type: BLOOD SPECIMENOrdering Facility: [facility] Address: [address] [place] [address] Performed By: #### 5 8410-2 ####[facility] LABCLIA [id number] [place] [address] [place] Platelets (Bld) [#/Vol] 157 10*3/uL Normal 150-400 [facility] Comment on above: Order Comment: Speci men Type: BLOOD SPECIMENOrdering Facility: [facility] Address: [address] [place] [address] Performed By: #### 5 8410-2 ####[facility] LABCLIA [id number] [place] [address] [place] RBC (Bld) [#/Vol] 4.42 10*6/uL Normal 3.90-5.20 [facility] Comment on above: Order Comment: Speci men Type: BLOOD SPECIMENOrdering Facility: [facility] Address: [address] [place] [address] Performed By: #### 5 8410-2 ####[facility] LABCLIA [id number] [place] [address] [place] WBC (Bld) [#/Vol] 3.40 10*3/uL Low 3.70-11.00 [facility] Comment on above: Order Comment: Speci men Type: BLOOD SPECIMENOrdering Facility: [facility] Address: [address] [place] [address] Performed By: #### 5 8410-2 ####[facility] LABCLIA [id number] [place] [address] [place] Basic metabolic 2000 panelon 10-21-2024 Anion gap [Moles/Vol] 14 mmol/L Normal 8-15 [facility] Comment on above: Order Comment: Speci men Type: BLOOD SPECIMENOrdering Facility: [facility] Address: [address] [place] [address] Performed By: #### 2 4321-2 ####[facility] LABCLIA [id number] [place] [address] [place] Calcium [Mass/Vol] 9.4 mg/dL Normal 8.5-10.[address] [facility] Comment on above: Order Comment: Speci men Type: BLOOD SPECIMENOrdering Facility: [facility] Address: [address] [place] [address] Performed By: #### 2 4321-2 ####[facility] LABCLIA [id number] [place] [address] [place] Chloride [Moles/Vol] 104 mmol/L Normal 98-107 [facility] Comment on above: Order Comment: Speci men Type: BLOOD SPECIMENOrdering Facility: [facility] Address: [address] [place] [address] Performed By: #### 2 4321-2 ####[facility] LABCLIA [id number] [place] [address] [place] CO2 [Moles/Vol] 23 mmol/L Normal 22-30 [facility] Comment on above: Order Comment: Speci men Type: BLOOD SPECIMENOrdering Facility: [facility] Address: [address] [place] [address] Performed By: #### 2 4321-2 ####[facility] LABCLIA [id number] [place] [address] [place] Creatinine [Mass/Vol] 1.05 mg/dL High 0.58-0.96 [facility] Comment on above: Order Comment: Speci men Type: BLOOD SPECIMENOrdering Facility: [facility] Address: [address] [place] [address] Performed By: #### 2 4321-2 ####[facility] LABIA [id number] [place] [address] [place] Creatinine and Glomerular filtration rate.predicted panel (S/P/Bld) 53 mL/min/1.73m??? Low >=60 [facility] Comment on above: Order Comment: Speci men Type: BLOOD SPECIMENOrdering Facility: [facility] Address: [address] [place] [address] Result Comment: Callie mated Glomerular Filtration Rate (eGFR) is calculated using the 2020 CKD-EPI creatinine equation. This equation utilizes serum creatinine, sex, and age as parameters. The creatinine assay has traceable calibration to isotope dilution-mass spectrometry. Refer to KDIGO guidelines for clinical interpretation. In patients with unstable renal function, e.g. those with acute kidney injury, the eGFR may not accurately reflect actual GFR. Performed By: #### 2 4321-2 ####[facility] LABIA [id number] [place] [address] [place] Glucose [Mass/Vol] 99 mg/dL Normal 74-[address] [facility] Comment on above: Order Comment: Speci men Type: BLOOD SPECIMENOrdering Facility: [facility] Address: [address] [place] [address] Result Comment: The [place] Diabetes Association (ADA) provides guidance for cutoff values for fasting glucose and random glucose. The ADA defines fasting as no caloric intake for at least 8 hours. Fasting plasma glucose results between 100 to 125 mg/dL indicate increased risk for diabetes (prediabetes).Fasting plasma glucose results greater than or equal to 126 mg/dL meet the criteria for diagnosis of diabetes. In the absence of unequivocal hyperglycemia, results should be confirmed by repeat testing. In a patient with classic symptoms of hyperglycemia or hyperglycemic crisis, random plasma glucose results greater than or equal to 200 mg/dL meet the criteria for diagnosis of diabetes.Reference: Standards of Medical Care in Diabetes 2016, [place] Diabetes Association. Diabetes Care. 2016.39(Suppl 1). Performed By: #### 2 4321-2 ####[facility] LABCLIA [id number] [place] [address] [place] Potassium [Moles/Vol] 3.7 mmol/L Normal 3.7-5.1 [facility] Comment on above: Order Comment: Speci men Type: BLOOD SPECIMENOrdering Facility: [facility] Address: [address] [place] [address] Performed By: #### 2 4321-2 ####[facility] LABIA [id number] [place] [address] [place] Sodium [Moles/Vol] 141 mmol/L Normal 136-[address] [facility] Comment on above: Order Comment: Rafaeli men Type: BLOOD SPECIMENOrdering Facility: [facility] Address: [address] [place] [address] Performed By: #### 2 4321-2 ####[facility] LABCLIA [id number] [place] [id number] [place] Urea nitrogen [Mass/Vol] 19 mg/dL Normal 7-21 [facility] Comment on above: Order Comment: Speci men Type: BLOOD SPECIMENOrdering Facility: [facility] Address: [address] [place] [address] Performed By: #### 2 4321-2 ####[facility] LABCLIA [id number] [place] [id number] [place] CASE [facility] 10-21-2024 CASE MANAGEM Normal [facility] CBC panel Auto (Bld)on 10-21 Erythrocyte distribution width (RBC) [Ratio] 14.5 % Normal 11.5-15.0 [facility] Comment on above: Order Comment: Speci men Type: BLOOD SPECIMENOrdering Facility: [facility] Address: [address] [place] [address] Performed By: #### 5 8410-2 ####[facility] LABIA [id number] [place] [address] [place] Hematocrit (Bld) [Volume fraction] 39.2 % Normal 36.0-46.0 [facility] Comment on above: Order Comment: Speci men Type: BLOOD SPECIMENOrdering Facility: [facility] Address: [address] [place] [address] Performed By: #### 5 8410-2 ####[facility] LABIA [id number] [place] [address] [place] Hemoglobin (Bld) [Mass/Vol] 12.5 g/dL Normal 11.5-15.5 [facility] Comment on above: Order Comment: Speci men Type: BLOOD SPECIMENOrdering Facility: [facility] Address: [address] [place] [address] Performed By: #### 5 8410-2 ####[facility] LABIA [id number] [place] [address] [place] MCH (RBC) [Entitic mass] 27.0 pg Normal 26.0-34.0 [facility] Comment on above: Order Comment: Speci men Type: BLOOD SPECIMENOrdering Facility: [facility] Address: [address] [place] [address] Performed By: #### 5 8410-2 ####[facility] LABIA [id number] [place] [address] [place] MCHC (RBC) [Mass/Vol] 31.9 g/dL Normal 30.5-36.0 [facility] Comment on above: Order Comment: Speci men Type: BLOOD SPECIMENOrdering Facility: [facility] Address: [address] [place] [address] Performed By: #### 5 8410-2 ####[facility] LABIA [id number] [place] [address] [place] MCV (RBC) [Entitic vol] 84.7 fL Normal 80.0-100.0 [facility] Comment on above: Order Comment: Speci men Type: BLOOD SPECIMENOrdering Facility: [facility] Address: [address] [place] [address] Performed By: #### 5 8410-2 ####[facility] LABIA [id number] [place] [address] [place] Nucleated RBC (Bld) [#/Vol] 10*3/uL Normal <0.01 [facility] Comment on above: Order Comment: Speci men Type: BLOOD SPECIMENOrdering Facility: [facility] Address: [address] [place] [address] Performed By: #### 5 8410-2 ####[facility] LABIA [id number] [place] [address] [place] Platelet mean volume (Bld) [Entitic vol] 10.4 fL Normal 9.0-12.7 [facility] Comment on above: Order Comment: Speci men Type: BLOOD SPECIMENOrdering Facility: [facility] Address: [address] [place] [address] Performed By: #### 5 8410-2 ####[facility] LABIA [id number] [place] [address] [place] Platelets (Bld) [#/Vol] 179 10*3/uL Normal 150-400 [facility] Comment on above: Order Comment: Speci men Type: BLOOD SPECIMENOrdering Facility: [facility] Address: [address] [place] [address] Performed By: #### 5 8410-2 ####[facility] LABIA [id number] [place] [address] [place] RBC (Bld) [#/Vol] 4.63 10*6/uL Normal 3.90-5.20 [facility] Comment on above: Order Comment: Speci men Type: BLOOD SPECIMENOrdering Facility: [facility] Address: [address] [place] [address] Performed By: #### 5 8410-2 ####[facility] [facility] [id number] [place] [address] [place] WBC (Bld) [#/Vol] 3.75 10*3/uL Normal 3.70-11.00 [facility] Comment on above: Order Comment: Speci men Type: BLOOD SPECIMENOrdering Facility: [facility] Address: [address] [place] [address] Performed By: #### 5 8410-2 ####[facility] [id number] [place] [address] [place] HbA1c (Bld)on 10-21-2024 Average glucose Estimated from glycated hemoglobin (Bld) [Mass/Vol] 97 mg/dL Normal [facility] Comment on above: Order Comment: Speci men Type: BLOOD SPECIMENOrdering Facility: [facility] Address: [address] [place] [address] Result Comment: eAG: (Estimated average glucose) is a calculated value from HgbA1c and is textiles sales representative of the average blood glucose level in the last 2-3 month period. Performed By: #### 5 5454-3 ####[facility] [id number] [place] [address] [place] HbA1c (Bld) [Mass fraction] 5.0 % Normal 4.3-5.6 [facility] Comment on above: Order Comment: Speci men Type: BLOOD SPECIMENOrdering Facility: [facility] Address: [address] [place] [address] Result Comment: Amer ican Diabetes Association guidelines indicate that patients with HgbA1c in the range 5.7-6.4% are at increased risk for development of diabetes, and intervention by lifestyle modification may be beneficial. HgbA1c greater or equal to 6.5% is considered diagnostic of diabetes. Performed By: #### 5 5454-3 ####[facility] LABCLIA [id number] [address] [place] NURSING PROGon 10-21-2024 NURSING PROG Normal [facility] THERAPY NTon 10-21-2024 THERAPY NT Normal [facility] ALLIED HEALTHon 10-20-2024 ALLIED HEALTH Normal [facility] CASE MANAGEMon 10-20-2024 CASE MANAGEM Normal [facility] CASE MGT INIT ASSESon 2023 CASE MGT INIT ASSES Normal [facility] CBC panel Auto (Bld)on 10-20 Erythrocyte distribution width (RBC) [Ratio] 14.6 % Normal 11.5-15.0 [facility] Comment on above: Order Comment: Speci men Type: BLOOD SPECIMENOrdering Facility: [facility] Address: [address] [place] [address] Performed By: #### 5 8410-2 ####[facility] LABCLIA [id number] [place] [address] [place] Hematocrit (Bld) [Volume fraction] 38.7 % Normal 36.0-46.0 [facility] Comment on above: Order Comment: Speci men Type: BLOOD SPECIMENOrdering Facility: [facility] Address: [address] [place] [address] Performed By: #### 5 8410-2 ####[facility] LABCLIA [id number] [place] [address] [place] Hemoglobin (Bld) [Mass/Vol] 12.3 g/dL Normal 11.5-15.5 [facility] Comment on above: Order Comment: Speci men Type: BLOOD SPECIMENOrdering Facility: [facility] Address: [address] [place] [place] [address] Performed By: #### 5 8410-2 ####[facility] LABIA [id number] [place] [address] [place] MCH (RBC) [Entitic mass] 26.7 pg Normal 26.0-34.0 [facility] Comment on above: Order Comment: Speci men Type: BLOOD SPECIMENOrdering Facility: [facility] Address: [address] [place] [place] [address] Performed By: #### 5 8410-2 ####[facility] [id number] [place] [address] [place] MCHC (RBC) [Mass/Vol] 31.8 g/dL Normal 30.5-36.0 [facility] Comment on above: Order Comment: Speci men Type: BLOOD SPECIMENOrdering Facility: [facility] Address: [address] [place] [place] [address] Performed By: #### 5 8410-2 ####[facility] LABIA [id number] [place] [address] [place] MCV (RBC) [Entitic vol] 83.9 fL Normal 80.0-100.0 [facility] Comment on above: Order Comment: Speci men Type: BLOOD SPECIMENOrdering Facility: [facility] Address: [address] [place] [address] Performed By: #### 5 8410-2 ####[facility] [id number] [place] [address] [place] Nucleated RBC (Bld) [#/Vol] 10*3/uL Normal <0.01 [facility] Comment on above: Order Comment: Speci men Type: BLOOD SPECIMENOrdering Facility: [facility] Address: [address] [place] [place] [address] Performed By: #### 5 8410-2 ####[facility] LABCLIA [id number] [place] [address] [place] Platelet mean volume (Bld) [Entitic vol] 10.3 fL Normal 9.0-12.7 [facility] Comment on above: Order Comment: Speci men Type: BLOOD SPECIMENOrdering Facility: [facility] Address: [address] [place] [place] [address] Performed By: #### 5 8410-2 ####[facility] LABIA [id number] [place] [address] [place] Platelets (Bld) [#/Vol] 173 10*3/uL Normal 150-400 [facility] Comment on above: Order Comment: Speci men Type: BLOOD SPECIMENOrdering Facility: [facility] Address: [address] [place] [place] [address] Performed By: #### 5 8410-2 ####[facility] LABIA [id number] [place] [address] [place] RBC (Bld) [#/Vol] 4.61 10*6/uL Normal 3.90-5.20 [facility] Comment on above: Order Comment: Speci men Type: BLOOD SPECIMENOrdering Facility: [facility] Address: [address] [place] [place] [address] Performed By: #### 5 8410-2 ####[facility] LABIA [id number] [place] [address] [place] WBC (Bld) [#/Vol] 4.22 10*3/uL Normal 3.70-11.00 [facility] Comment on above: Order Comment: Speci men Type: BLOOD SPECIMENOrdering Facility: [facility] Address: [address] [place] [address] Performed By: #### 5 8410-2 ####[facility] LABIA [id number] [address] [address] [place] CNCOon 10-20-2024 CNCO Letter Text Normal [facility] CNDSon 10-20-2024 CNDS Normal [facility] Comprehensive metabolic 2000 panelon 10-20-2024 Albumin [Mass/Vol] 4.0 g/dL Normal 3.9-4.[address] [facility] Comment on above: Order Comment: Speci men Type: BLOOD SPECIMENOrdering Facility: [facility] Address: [address] [place] [address] Performed By: #### L IPNF, 2132-07, 86016-2, 8 ####[facility] LABCL[facility] [id number] [place] [address] [place] ALP [Catalytic activity/Vol] 114 U/L Normal 34-123 [facility] Comment on above: Order Comment: Speci men Type: BLOOD SPECIMENOrdering Facility: [facility] Address: [address] [place] [place] [address] Performed By: #### L IPNF, 2132-07, 80447-0, 2284-06 ####[facility] LABCLIA [id number] [place] [address] [place] ALT [Catalytic activity/Vol] 7 U/L Normal 7-38 [facility] Comment on above: Order Comment: Speci men Type: BLOOD SPECIMENOrdering Facility: [facility] Address: [address] [place] [place] [address] Performed By: #### L IPNF, 2132-07, 11811-8, 8 ####[facility] LABCLIA [id number] [place] [id number] [place] Anion gap [Moles/Vol] 13 mmol/L Normal 8-15 [facility] Comment on above: Order Comment: Speci men Type: BLOOD SPECIMENOrdering Facility: [facility] Address: [address] [place] [place] [address] Performed By: #### L IPNF, 2132-07, , 2284-06 ####[facility] LABCLIA [id number] [place] [address] [place] AST [Catalytic activity/Vol] 12 U/L Low 13-35 [facility] Comment on above: Order Comment: Speci men Type: BLOOD SPECIMENOrdering Facility: [facility] Address: [address] [place] [place] [address] Performed By: #### L IPANGELO, 2132-07, , 2284-06 ####[facility] LABCLIA [id number] [place] [address] [place] Bilirubin [Mass/Vol] 1.0 mg/dL Normal 0.2-1.3 [facility] Comment on above: Order Comment: Speci men Type: BLOOD SPECIMENOrdering Facility: [facility] Address: [address] [place] [address] Performed By: #### L IPANGELO, 2132-07, , 2284-06 ####[facility] LABCLIA [id number] [place] [address] [place] Calcium [Mass/Vol] 9.2 mg/dL Normal 8.5-10.[address] [facility] Comment on above: Order Comment: Speci men Type: BLOOD SPECIMENOrdering Facility: [facility] Address: [address] [place] [place] [address] Performed By: #### L IPNF, 2132-07, , 2284-06 ####[facility] LABCLIA [id number] [place] [id number] [place] Chloride [Moles/Vol] 104 mmol/L Normal 98-107 [facility] Comment on above: Order Comment: Speci men Type: BLOOD SPECIMENOrdering Facility: [facility] Address: [address] [place] [place] [address] Performed By: #### L IPNF, 2132-07, , 2284-06 ####[facility] LABCLIA [id number] [address] [address] [place] CO2 [Moles/Vol] 24 mmol/L Normal 22-30 [facility] Comment on above: Order Comment: Speci men Type: BLOOD SPECIMENOrdering Facility: [facility] Address: [address] [place] [address] Performed By: #### L IPNF, 2132-07, , 2284-06 ####[facility] LABIA [id number] [address] [address] [place] Creatinine [Mass/Vol] 0.97 mg/dL High 0.58-0.96 [facility] Comment on above: Order Comment: Speci men Type: BLOOD SPECIMENOrdering Facility: [facility] Address: [address] [place] [address] Performed By: #### L IPNF, 2132-07, , 2284-06 ####[facility] LABIA [id number] [place] [address] [place] Creatinine and Glomerular filtration rate.predicted panel (S/P/Bld) 58 mL/min/1.73m??? Low >=60 [facility] Comment on above: Order Comment: Speci men Type: BLOOD SPECIMENOrdering Facility: [facility] Address: [address] [place] [address] Result Comment: Callie mated Glomerular Filtration Rate (eGFR) is calculated using the 2020 CKD-EPI creatinine equation. This equation utilizes serum creatinine, sex, and age as parameters. The creatinine assay has traceable calibration to isotope dilution-mass spectrometry. Refer to KDIGO guidelines for clinical interpretation. In patients with unstable renal function, e.g. those with acute kidney injury, the eGFR may not accurately reflect actual GFR. Performed By: #### L IPNF, 2132-07, , 2284-06 ####[facility] LABCLIA [id number] [address] [address] [place] Glucose [Mass/Vol] 136 mg/dL High 74-[address] [facility] Comment on above: Order Comment: Speci men Type: BLOOD SPECIMENOrdering Facility: [facility] Address: [address] [place] [address] Result Comment: The [place] Diabetes Association (ADA) provides guidance for cutoff values for fasting glucose and random glucose. The ADA defines fasting as no caloric intake for at least 8 hours. Fasting plasma glucose results between 100 to 125 mg/dL indicate increased risk for diabetes (prediabetes).Fasting plasma glucose results greater than or equal to 126 mg/dL meet the criteria for diagnosis of diabetes. In the absence of unequivocal hyperglycemia, results should be confirmed by repeat testing. In a patient with classic symptoms of hyperglycemia or hyperglycemic crisis, random plasma glucose results greater than or equal to 200 mg/dL meet the criteria for diagnosis of diabetes.Reference: Standards of Medical Care in Diabetes 2016, [place] Diabetes Association. Diabetes Care. 2016.39(Suppl 1). Performed By: #### L IPANGELO, 2132-07, , 2284-06 ####[facility] LABCLIA [id number] [place] [address] [place] Potassium [Moles/Vol] 4.1 mmol/L Normal 3.7-5.1 [facility] Comment on above: Order Comment: Laura mejía Type: BLOOD SPECIMENOrdering Facility: [facility] Address: [address] [place] [address] Performed By: #### L IPNF, 2132-07, , 2284-06 ####[facility] LABCLIA [id number] [place] [address] [place] Protein [Mass/Vol] 6.4 g/dL Normal 6.3-8.[address] [facility] Comment on above: Order Comment: Speci men Type: BLOOD SPECIMENOrdering Facility: [facility] Address: [address] [place] [address] Performed By: #### L IPNF, 2132-07, , 2284-06 ####[facility] LABCLIA [id number] [address] [address] [place] Sodium [Moles/Vol] 141 mmol/L Normal 136-[address] [facility] Comment on above: Order Comment: Speci men Type: BLOOD SPECIMENOrdering Facility: [facility] Address: [address] [place] [place] [address] Performed By: #### L BIRD, 2132-07, , 2284-06 ####[facility] LABCLIA [id number] [place] [address] [place] Urea nitrogen [Mass/Vol] 13 mg/dL Normal 7-21 [facility] Comment on above: Order Comment: Speci men Type: BLOOD SPECIMENOrdering Facility: [facility] Address: [address] [place] [address] Performed By: #### L BIRD, 2132-07, , 2284-06 ####[facility] [id number] [place] [address] [place] ECG COMPLETEon 10-20-2024 ECG COMPLETE Normal [facility] ECHO WITH AGITATED SALINE CO NTRASTon 10-20-2024 ECHO WITH AGITATED SALINE CONTRAST Normal [facility] Folate SerPl-mCncon 10-20-20 24 Folate [Mass/Vol] 18.9 ng/mL Normal >4.7 [facility] Comment on above: Order Comment: Speci men Type: BLOOD SPECIMENOrdering Facility: [facility] Address: [address] [place] [address] Performed By: #### L BIRD, 2132-07, , 2284-06 ####[facility] LABIA [id number] [place] [id number] [place] HISTORY PHYSICALon HISTORY PHYSICAL Normal [facility] LIPID PANEL, NONFASTINGon Cholesterol [Mass/Vol] 161 mg/dL Normal <200 [facility] Comment on above: Order Comment: Speci men Type: BLOOD SPECIMENOrdering Facility: [facility] Address: [address] [place] [address] Result Comment: <200 mg/dL, Desirable 200-239 mg/dL, Borderline high>239 mg/dL, High Performed By: #### L IPNF, 2132-07, , 2284-06 ####[facility] LABCLIA [id number] [place] [address] [place] HDL CHOLESTEROL, NF 50 mg/dL Normal >39 [facility] Comment on above: Order Comment: Speci men Type: BLOOD SPECIMENOrdering Facility: [facility] Address: [address] [place] [address] Result Comment: 40-5 9 mg/dL, Acceptable>59 mg/dL, High: Negative risk factor for coronary heart disease<40 mg/dL, Low: Positive risk factor for coronary heart disease Performed By: #### L IPNF, 2132-07, , 2284-06 ####[facility] LABCLIA [id number] [place] [address] [place] LDL CHOLESTEROL, NF 87 mg/dL Normal <100 [facility] Comment on above: Order Comment: Speci men Type: BLOOD SPECIMENOrdering Facility: [facility] Address: [address] [place] [address] Result Comment: <100 mg/dL, Optimal 100-129 mg/dL, Near optimal/above optimal 130-159 mg/dL, Borderline high 160-189 mg/dL, High>189 mg/dL, Very highSecondary prevention optimal LDL Cholesterol levels are recommended to be < 70 mg/dL Performed By: #### L IPNF, 2132-07, , 2284-06 ####[facility] LABCLIA [id number] [place] [address] [place] LDL/HDL RATIO, NF 1.74 mg/dL Normal <2.54 [facility] Comment on above: Order Comment: Laura men Type: BLOOD SPECIMENOrdering Facility: [facility] Address: [address] [place] [address] Result Comment: Iam mclain:1. National Cholesterol Education Program ATP III Guideline At-A-Glance Quick Desk Reference: National Heart, Lung, and Blood Sunset. National Institutes of Health. 2001: NIH Publication No. 01-3305.2. An International Atherosclerosis Society position paper: global recommendations for the management of dyslipidemia: executive summary, Atherosclerosis. 2014: 232(2):410-413. Performed By: #### L IPNF, 2132-07, 19466-2, 2284-06 ####[facility] LABCLIA [id number] [place] [address] [place] NON HDL CHOL, NF 111 mg/dL Normal <130 [facility] Comment on above: Order Comment: Laura men Type: BLOOD SPECIMENOrdering Facility: [facility] Address: [address] [place] [address] Result Comment: <130 mg/dL, Optimal 130-159 mg/dL, Near optimal/above optimal 160-189 mg/dL, Borderline high 190-219 mg/dL, High>219 mg/dL, Very highSecondary prevention optimal non HDL Cholesterol levels are recommended to be <100 mg/dL Performed By: #### L IPNF, 2132-07, 06399-1, 2284-06 ####[facility] LABCLIA [id number] [place] [address] [place] T CHOL/HDL RATIO NF 3.22 mg/dL Normal <5.10 [facility] Comment on above: Order Comment: Rafaeli men Type: BLOOD SPECIMENOrdering Facility: [facility] Address: [address] [place] [address] Performed By: #### L IPNF, 2132-07, 69379-5, 8 ####[facility] LABCLIA [id number] [place] [address] [place] TRIGLYCERIDES, NF 118 mg/dL Normal <150 [facility] Comment on above: Order Comment: Speci men Type: BLOOD SPECIMENOrdering Facility: [facility] Address: [address] [place] [address] Result Comment: <150 mg/dL, Normal 150-199 mg/dL, Borderline high 200-499 mg/dL, High>499 mg/dL, Very high Performed By: #### L IPNF, 9, 15648-6, 2283-8 ####[facility] LABCLIA [id number] [place] [address] [place] VLDL CHOLESTEROL, NF 24 mg/dL Normal <30 [facility] Comment on above: Order Comment: Speci men Type: BLOOD SPECIMENOrdering Facility: [facility] Address: [address] [place] [address] Performed By: #### L IPNF, 2132-07, 67772-6, 2284-06 ####[facility] LABCL[facility] [id number] [place] [address] [place] MRI BRAIN WO IVCONon 024 MRI BRAIN WO IVCON Normal [facility] THERAPY NTon 10-20-2024 THERAPY NT Normal [facility] THERAPY NT Normal [facility] URINALYSIS, REFLEX MICROSCOP ICon 10-20-2024 Bacteria LM.HPF (Urine sed) [#/Area] Negative Normal Negative [facility] Comment on above: Order Comment: Speci men Type: URINE SPECIMENOrdering Facility: [facility] Address: [address] [place] [address] Performed By: #### L [id number] ####[facility] LABCLIA [id number] [place] [address] [place] Bilirubin Ql (U) Negative Normal Negative [facility] Comment on above: Order Comment: Speci men Type: URINE SPECIMENOrdering Facility: [facility] Address: [address] [place] [address] Performed By: #### L [id number] ####[facility]CL[facility] [id number] [place] [address] [place] Clarity (Unsp spec) Clear Normal Clear [facility] Comment on above: Order Comment: Speci men Type: URINE SPECIMENOrdering Facility: [facility] Address: [address] [place] [address] Performed By: #### L [id number] ####[facility]CL[facility] [id number] [place] [address] [place] Color (U) Yellow Normal Yellow [facility] Comment on above: Order Comment: Speci men Type: URINE SPECIMENOrdering Facility: [facility] Address: [address] [place] [address] Performed By: #### L [id number] ####[facility] LABIA [id number] [place] [address] [place] Epithelial cells LM.HPF (Urine sed) [#/Area] Few Normal [facility] Comment on above: Order Comment: Speci men Type: URINE SPECIMENOrdering Facility: [facility] Address: [address] [place] [address] Performed By: #### L [id number] ####[facility]CL[facility] [id number] [place] [address] [place] Glucose Test strip (U) [Mass/Vol] Negative Normal Negative [facility] Comment on above: Order Comment: Speci men Type: URINE SPECIMENOrdering Facility: [facility] Address: [address] [place] [address] Performed By: #### L [id number] ####[facility] LABIA [id number] [place] [address] [place] Hemoglobin Ql (U) Trace Abnormal Negative [facility] Comment on above: Order Comment: Speci men Type: URINE SPECIMENOrdering Facility: [facility] Address: [address] [place] [address] Performed By: #### L [id number] ####[facility]CL[facility] [id number] [place] [address] [place] Hyaline casts (Urine sed) [#/Area] 1-3 /LPF Abnormal 0 /LPF [facility] Comment on above: Order Comment: Speci men Type: URINE SPECIMENOrdering Facility: [facility] Address: [address] [place] [address] Performed By: #### L [id number] ####[facility]CL[facility] [id number] [place] [address] [place] Ketones Ql (U) Negative Normal Negative [facility] Comment on above: Order Comment: Speci men Type: URINE SPECIMENOrdering Facility: [facility] Address: [address] [place] [address] Performed By: #### L [id number] ####[facility] LABCLIA [id number] [place] [address] [place] Leukocyte esterase Test strip Ql (U) 2+ Abnormal Negative [facility] Comment on above: Order Comment: Speci men Type: URINE SPECIMENOrdering Facility: [facility] Address: [address] [place] [address] Performed By: #### L [id number] ####[facility]CL[facility] [id number] [place] [address] [place] Nitrite Ql (U) Negative Normal Negative [facility] Comment on above: Order Comment: Speci men Type: URINE SPECIMENOrdering Facility: [facility] Address: [address] [place] [address] Performed By: #### L [id number] ####[facility]CL[facility] [id number] [place] [address] [place] pH (U) 6.0 [pH] Normal <8.5 [facility] Comment on above: Order Comment: Speci men Type: URINE SPECIMENOrdering Facility: [facility] Address: [address] [place] [address] Performed By: #### L [id number] ####[facility] LABIA [id number] [place] [address] [place] Protein (U) [Mass/Vol] Trace Abnormal Negative [facility] Comment on above: Order Comment: Speci men Type: URINE SPECIMENOrdering Facility: [facility] Address: [address] [place] [address] Performed By: #### L [id number] ####[facility] LABIA [id number] [place] [address] [place] RBC LM.HPF (Urine sed) [#/Area] 0-2 /HPF Normal 0-2 /HPF [facility] Comment on above: Order Comment: Speci men Type: URINE SPECIMENOrdering Facility: [facility] Address: [address] [place] [address] Performed By: #### L [id number] ####[facility] [id number] [place] [address] [place] Specific gravity (U) [Rel density] 1.017 Normal 1.005-1.030 [facility] Comment on above: Order Comment: Speci men Type: URINE SPECIMENOrdering Facility: [facility] Address: [address] [place] [place] [address] Performed By: #### L [id number] ####[facility] LABIA [id number] [place] [address] [place] Urobilinogen Ql (U) 1.0 EU/dL Normal 0.2-1.0 EU/dL [facility] Comment on above: Order Comment: Speci men Type: URINE SPECIMENOrdering Facility: [facility] Address: [address] [place] [place] [address] Performed By: #### L [id number] ####[facility] LABIA [id number] [place] [address] [place] WBC LM.HPF (Urine sed) [#/Area] 0-5 /HPF Normal 0-5 /HPF [facility] Comment on above: Order Comment: Speci men Type: URINE SPECIMENOrdering Facility: [facility] Address: [address] [place] [place] [address] Performed By: #### L [id number] ####[facility] LABIA [id number] [address] [place] Vit B12 SerPl-mCncon 024 Cobalamin (Vitamin B12) [Mass/Vol] 1379 pg/mL High 232-1245 [facility] Comment on above: Order Comment: Speci men Type: BLOOD SPECIMENOrdering Facility: [facility] Address: [address] [place] [place] [address] Performed By: #### L IPNF, 2132-9, 01131-6, 2284-8 ####[facility] LABIA [id number] [place] [address] [place] aPTT PPPon 10-20-2024 aPTT Coag (PPP) [Time] 27.9 s Normal 23.0-32.4 [facility] Comment on above: Order Comment: Speci men Type: BLOOD SPECIMENOrdering Facility: [facility] Address: [address] [place] [place] [address] Performed By: #### 1 4979-9 ####[facility] LABIA [id number] [place] [id number] [place] ALLIED HEALTHon 10-19-2024 ALLIED HEALTH HNO ID: [id number] Author: JIE DURAN Tech Service: Radiology Author Type: Staff Reporter Type: Allied Health Filed: 10/19/2024 10:02 Note Text: Radiology Service Progress Note DATE OF SERVICE: October 19, 2024 TIME: 10:02 AM PATIENT IDENTITY VERIFICATION COMPLETED USING TWO (2) STANDARD IDENTIFIERS: Name and Date of confirmed by patient verbally and Name and Date of confirmed by identification band. FALL SCREENING: Has the patient had 2 falls in the last year or 1 fall with injury or currently using an Ambulatory Assistive Device (Walker, Cane, Wheelchair, Crutches, etc.)? Emergency Room Patient: Screened in ED PATIENT GENDER DATA: Female. status: : No status: NO. PATIENT RELEVANT IMPLANT DATA REVIEWED: Yes PATIENT PRESENTS WITH AN IMPLANTABLE OR ATTACHED TAX PROFESSIONAL: No ALLERGIES: Reviewed and unchanged CONTRAST ALLERGY: NO. EXAM: CT -CONTRAST INDUCED NEPHROPATHY RISK FACTORS: Patient age > 60 years CREATININE: Creatinine Date Value Ref Range Status 09/17/2024 0.95 0.58 - 0.96 mg/dL Final 03/19/2024 0.98 (H) 0.58 - 0.96 mg/dL Final 11/07/2023 0.80 0.58 - 0.96 mg/dL Final Estimated Glomerular Filtration Rate Date Value Ref Range Status 09/17/2024 60 >=60 mL/min/1.73m? Final Comment: Estimated Glomerular Filtration Rate (eGFR) is calculated using the 2020 CKD-EPI creatinine equation. This equation utilizes serum creatinine, sex, and age as parameters. The creatinine assay has traceable calibration to isotope dilution-mass spectrometry. Refer to KDIGO guidelines for clinical interpretation. In patients with unstable renal function, e.g. those with acute kidney injury, the eGFR may not accurately reflect actual GFR. eGFR- Date Value Ref Range Status 11/01/2021 >60 Final P.O.C.T. RESULTS: POC done: Yes, See Lab Tab October 19, 2024 TREATMENT: N/A PERIPHERAL IV DATA: Inpatient - refer to [facility] documentation RADIOLOGY DEPARTMENT: CT; Exam(s) Completed: Brain , CTA Brain , and CTA Neck SIGNATURE: Sharon Murillo PATIENT NAME: Florecita Healy DATE: October 19, 2024 TIME: 10:02 AM Normal [facility] Basic metabolic 2000 panelon 10-19-2024 Anion gap [Moles/Vol] 12 mmol/L Normal - [facility] Comment on above: Order Comment: Speci men Type: BLOOD SPECIMENOrdering Facility: [facility] Address: [address] [place] [place] [address] Performed By: #### H [facility], 76907-1 ####[facility]ORYCL[facility] [id number] [place] [address] [place] Calcium [Mass/Vol] 8.9 mg/dL Normal 8.5-10.2 [facility] Comment on above: Order Comment: Speci men Type: BLOOD SPECIMENOrdering Facility: [facility] Address: [address] [place] [address] Performed By: #### H STNT, 61922-2 ####[facility]ORATORYCLIA [id number] [place] [address] [place] Chloride [Moles/Vol] 104 mmol/L Normal 98-107 [facility] Comment on above: Order Comment: Speci men Type: BLOOD SPECIMENOrdering Facility: [facility] Address: [address] [place] [address] Performed By: #### H STNT, 32938-6 ####[facility]ORATORYCLIA [id number] [place] [address] [place] CO2 [Moles/Vol] 24 mmol/L Normal 22-30 [facility] Comment on above: Order Comment: Speci men Type: BLOOD SPECIMENOrdering Facility: [facility] Address: [address] [place] [address] Performed By: #### H STNT, 19742-2 ####[facility]ORATORYCLIA [id number] [address] [place] Creatinine [Mass/Vol] 0.91 mg/dL Normal 0.58-0.[address] [facility] Comment on above: Order Comment: Speci men Type: BLOOD SPECIMENOrdering Facility: [facility] Address: [address] [place] [address] Performed By: #### H STNT, 42420-2 ####[facility]ATORYCLIA [id number] [address] Creatinine and Glomerular filtration rate.predicted panel (S/P/Bld) 63 mL/min/1.73m??? Normal >=60 [facility] Comment on above: Order Comment: Speci men Type: BLOOD SPECIMENOrdering Facility: [facility] Address: [address] [place] [address] Result Comment: Callie mated Glomerular Filtration Rate (eGFR) is calculated using the 2020 CKD-EPI creatinine equation. This equation utilizes serum creatinine, sex, and age as parameters. The creatinine assay has traceable calibration to isotope dilution-mass spectrometry. Refer to KDIGO guidelines for clinical interpretation. In patients with unstable renal function, e.g. those with acute kidney injury, the eGFR may not accurately reflect actual GFR. Performed By: #### H STNT, 97185-0 ####[facility]ATORYCLIA [id number] [place] [address] [place] Glucose [Mass/Vol] 116 mg/dL High 74-99 [facility] Comment on above: Order Comment: Laura mejía Type: BLOOD SPECIMENOrdering Facility: [facility] Address: [address] [place] [address] Result Comment: The [place] Diabetes Association (ADA) provides guidance for cutoff values for fasting glucose and random glucose. The ADA defines fasting as no caloric intake for at least 8 hours. Fasting plasma glucose results between 100 to 125 mg/dL indicate increased risk for diabetes (prediabetes). Fasting plasma glucose results greater than or equal to 126 mg/dL meet the criteria for diagnosis of diabetes. In the absence of unequivocal hyperglycemia, results should be confirmed by repeat testing. In a patient with classic symptoms of hyperglycemia or hyperglycemic crisis, random plasma glucose results greater than or equal to 200 mg/dL meet the criteria for diagnosis of diabetes. Reference: Standards of Medical Care in Diabetes 2016, [place] Diabetes Association. Diabetes Care. 2016.39(Suppl 1). Performed By: #### H STNT, 65965-8 ####[facility] LABORATORYCLIA [id number] [place] [address] [place] Potassium [Moles/Vol] 4.0 mmol/L Normal 3.7-5.[address] [facility] Comment on above: Order Comment: Laura mejía Type: BLOOD SPECIMENOrdering Facility: [facility] Address: [address] [place] [id number] Performed By: #### H STNT, 96197-9 ####[facility] LABORATORYCLIA [id number] [place] [address] [place] Sodium [Moles/Vol] 140 mmol/L Normal 136-144 [facility] Comment on above: Order Comment: Speci men Type: BLOOD SPECIMENOrdering Facility: [facility] Address: [address] [place] [address] Performed By: #### H STNT, 19179-2 ####[facility]ATORYCLIA [id number] [address] Urea nitrogen [Mass/Vol] 12 mg/dL Normal 7-21 [facility] Comment on above: Order Comment: Speci men Type: BLOOD SPECIMENOrdering Facility: [facility] Address: [address] [place] [address] Performed By: #### H STNT, 86561-4 ####[facility]ORATORYCLIA [id number] [address] [place] CBC panel Auto (Bld)on 10-19 Erythrocyte distribution width (RBC) [Ratio] 14.6 % Normal 11.5-15.0 [facility] Comment on above: Order Comment: Speci men Type: BLOOD SPECIMENOrdering Facility: [facility] Address: [address] [place] [address] Performed By: #### 5 8410-2 ####[facility]ATORYCLIA [id number] [address] Hematocrit (Bld) [Volume fraction] 38.8 % Normal 36.0-46.0 [facility] Comment on above: Order Comment: Speci men Type: BLOOD SPECIMENOrdering Facility: [facility] Address: [address] [place] [address] Performed By: #### 5 8410-2 ####[facility]ORATORYCLIA [id number] [address] [place] Hemoglobin (Bld) [Mass/Vol] 12.4 g/dL Normal 11.5-15.5 [facility] Comment on above: Order Comment: Speci men Type: BLOOD SPECIMENOrdering Facility: [facility] Address: [address] [place] [address] Performed By: #### 5 8410-2 ####[facility]ORATORYCLIA [id number] [address] MCH (RBC) [Entitic mass] 27.4 pg Normal 26.0-34.0 [facility] Comment on above: Order Comment: Speci men Type: BLOOD SPECIMENOrdering Facility: [facility] Address: [address] [place] [address] Performed By: #### 5 8410-2 ####[facility]ORATORYCLIA [id number] [address] MCHC (RBC) [Mass/Vol] 32.0 g/dL Normal 30.5-36.[address] [facility] Comment on above: Order Comment: Speci men Type: BLOOD SPECIMENOrdering Facility: [facility] Address: [address] [place] [address] Performed By: #### 5 8410-2 ####[facility]ORATORYCLIA [id number] [address] MCV (RBC) [Entitic vol] 85.8 fL Normal 80.0-100.0 [facility] Comment on above: Order Comment: Speci men Type: BLOOD SPECIMENOrdering Facility: [facility] Address: [address] [place] [address] Performed By: #### 5 8410-2 ####[facility]ORATORYCLIA [id number] [address] Nucleated RBC (Bld) [#/Vol] 10*3/uL Normal <0.01 [facility] Comment on above: Order Comment: Speci men Type: BLOOD SPECIMENOrdering Facility: [facility] Address: [address] [place] [address] Performed By: #### 5 8410-2 ####[facility]ORATORYCLIA [id number] [address] Platelet mean volume (Bld) [Entitic vol] 10.2 fL Normal 9.0-12.7 [facility] Comment on above: Order Comment: Speci men Type: BLOOD SPECIMENOrdering Facility: [facility] Address: [address] [place] [address] Performed By: #### 5 8410-2 ####[facility] LABORATORYCLIA [id number] [place] [address] [facility] [place] Platelets (Bld) [#/Vol] 164 10*3/uL Normal 150-400 [facility] Comment on above: Order Comment: Speci men Type: BLOOD SPECIMENOrdering Facility: [facility] Address: [address] [place] [place] [address] Performed By: #### 5 8410-2 ####[facility]ORATORYCLIA [id number] [place] [address] [place] RBC (Bld) [#/Vol] 4.52 10*6/uL Normal 3.90-5.20 [facility] Comment on above: Order Comment: Speci men Type: BLOOD SPECIMENOrdering Facility: [facility] Address: [address] [place] [address] Performed By: #### 5 8410-2 ####[facility]ORATORYCLIA [id number] [place] [address] [place] WBC (Bld) [#/Vol] 4.96 10*3/uL Normal 3.70-11.00 [facility] Comment on above: Order Comment: Speci men Type: BLOOD SPECIMENOrdering Facility: [facility] Address: [address] [place] [address] Performed By: #### 5 8410-2 ####[facility] LABORATORYCLIA [id number] [address] [facility] BRAIN ATTACK WO IVCONon 1 12-20-2023 CT BRAIN ATTACK WO IVCON * * *Final Report* * * DATE OF EXAM: Oct 19 2024 10:06AM [facility] [place] [place] CT BRAIN ATTACK WO IVCON / PROCEDURE REASON: Focal neuro deficit, new, fixed, or worsening, < 4.5 hours, stroke suspected * * * * Physician Interpretation * * * * EXAMINATION: CT BRAIN ATTACK WO IVCON CLINICAL HISTORY: left sided weakness, slurred speech Brain attack. TECHNIQUE: Routine CT of the brain without IV contrast. MQ: CTBA_4 CT Radiation dose: Integrated CT Dose-Length Product (DLP) for this visit = 748 mGy*cm CT Dose Reduction Employed: Automated exposure control (AEC) COMPARISON: MRI brain 05/10/2016 RESULT: Acute ischemic change: None. ASPECT Score = 10 Hemorrhage: No evidence of acute intracranial hemorrhage. ECASS hemorrhagic transformation score: Not Applicable Mass Lesion / Mass Effect: There is no evidence of an intracranial mass or extraaxial fluid collection. No significant mass effect. Chronic change: Scattered patchy foci of low attenuation are present within white matter which is a nonspecific finding but likely represents mild microvascular ischemia. Atherosclerotic calcifications of bilateral intracranial ICAs. Parenchyma: There is no significant volume loss. The brain parenchyma is otherwise within normal limits for age. Ventricles: Normal caliber and morphology. Other: The visualized calvarium, skull base, orbits and extracranial soft tissues are normal. Localizer images: Unremarkable. IMPRESSION: No CT evidence of an acute territorial infarct or acute intracranial hemorrhage. CRITICAL TEST/RESULTS: Notification initiated at 10/19/2024 10:07 AM. Communicated with RANDY PARIKH on 10/19/2024 10:08 AM . CR_1 Research Manufacturing Operator: PRINCE Transcribe Date/Time: Oct 19 2024 10:06A Dictated by : EMILIANA HOLCOMB MD This examination was interpreted and the report reviewed and electronically signed by: EMILIANA HOLCOMB MD on Oct 19 2024 10:11AM EST [id number] CRITICAL!! Invalid Interpretation Code [facility] CT BRAIN WO IVCONon 10-19-[address] BRAIN WO IVCON * * *Final Report* * * DATE OF EXAM: Oct 19 2024 7:26PM [facility] [place] - CT BRAIN WO IVCON / PROCEDURE REASON: Headache, sudden, severe * * * * Physician Interpretation * * * * EXAMINATION: CT BRAIN WO IVCON CLINICAL HISTORY: Headache, sudden, severe headache TECHNIQUE: Serial axial images without IV contrast were obtained from the vertex to the foramen magnum. MQ: CTBWO_3 CT Dose-Length Product (DLP): 748 mGy*cm CT Dose Reduction Employed: Iterative reconstruction. COMPARISON: 10/19/2024 8:03 AM RESULT: Post-operative change: None. Acute change: No evidence of an acute infarct or other acute parenchymal process. Hemorrhage: No evidence of acute intracranial hemorrhage. Mass Lesion / Mass Effect: There is no evidence of an intracranial mass or extraaxial fluid collection. No significant mass effect. Chronic change: Patchy foci of low attenuation coefficient are present within the supratentorial white matter which is a nonspecific finding but likely represents moderate microvascular ischemia. Atherosclerotic calcification of the carotid and vertebral arteries. Parenchyma: There is moderate generalized volume loss. The brain parenchyma is otherwise within normal limits for age. Ventricles: The ventricles are within normal limits of size and configuration for age. Paranasal sinuses and skull: The visualized paranasal sinuses are grossly clear. The skull base and imaged soft tissues are unremarkable. Fast Food Services Manager (topogram) images: No additional findings. IMPRESSION: No acute intracranial process. _ Research Manufacturing Operator: PSCB Transcribe Date/Time: Oct 19 2024 8:41P Dictated by : ANKUR PATTERSON MD This examination was interpreted and the report reviewed and electronically signed by: ANKUR PATTERSON MD on Oct 19 2024 8:45PM EST [id number] [facility] CTA HEAD W IVCONon 4 CTA HEAD W IVCON * * *Final Report* * * DATE OF EXAM: Oct 19 2024 10:09AM [facility] [place] [facility]22 - CTA HEAD W IVCON / PROCEDURE REASON: Focal neuro deficit, new, fixed, or worsening, < 4.5 hours, stroke suspected * * * * Physician Interpretation * * * * EXAMINATION: CTA NECK W IVCON, CTA HEAD W IVCON CLINICAL HISTORY: Left-sided weakness. TECHNIQUE: Spiral high resolution axial images were obtained through the head, neck and superior mediastinum following bolus administration of intravenous contrast for CT angiography. 3D maximum intensity projection images were created, reviewed and archived . MQ: CTAHN_4 Contrast: 80 mL Omnipaque [address] Radiation dose: Integrated Dose-Length Product (DLP) for this visit = 1307 mGy*cm. CT Dose Reduction Employed: Automated exposure control(AEC) and iterative recon COMPARISON: CT brain earlier same day. RESULT: BRAIN: Evaluation of the individual slices of the CTA demonstrates no evidence of an acute stroke. ASPECT Score = 10 Hemorrhage: No evidence of acute intracranial hemorrhage. ECASS hemorrhagic transformation score: Not Applicable NECK: Localizer images: No additional findings. Soft tissues: The soft tissue planes are maintained throughout. No evidence of a soft tissue mass in the neck or superior mediastinum. No significant lymphadenopathy is seen. 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 Heterogeneous attenuation of the left thyroid lobe and thyroid isthmus. Spine: Alignment is near normal. Moderate degenerative changes are present. Lung apices: The visualized lung apices are clear. Incidentally noted anterior right upper lobe pulmonary nodule (3/40) measuring 6 mm, in anterolateral left upper lobe (3/18) measuring 7 mm, and in anterior left upper pulmonary nodule (3/30) measuring [address] ARTERIOGRAM: Extracranial Circulation: Aortic Arch: There is a normal branching pattern from the aortic arch..Mixed density plaque formations at the origin of the left common carotid artery causing short segment mild stenosis. Atherosclerotic calcifications along the proximal right subclavian artery causing short segment moderate to severe stenosis. Otherwise, no no significant stenosis in the proximal brachiocephalic vessels. Carotid Stenosis: Right Common: No significant stenosis. Right Internal Carotid Plaque: Tiny atherosclerotic calcifications. Right Internal Carotid Stenosis (% by NASCET Criteria): 0 Left Common: No significant stenosis. Left Internal Carotid Plaque: Tiny atherosclerotic calcifications. Left Internal Carotid Stenosis (% by NASCET Criteria): 0 Cervical Vertebral Arteries: Patency: Bilateral Dominance: Right Atherosclerotic calcifications at the origin of the right vertebral artery causing short segment moderate stenosis. Rest of the bilateral cervical vertebral arteries appear patent without significant stenosis. Intracranial Circulation: Mixed density plaque formations along the intracranial segments of the bilateral internal carotid arteries causing foci of mild and moderate stenosis more pronounced on the right compared to left. Severe stenosis of the of the proximal left M1 (3/408) with multiple collaterals and small caliber patent visualized distal branches. Severe stenosis of one of the inferior division proximal M2 branches with paucity of the distal cortical branches (3/405). Short segments mild stenosis of the proximal right M1 (2/411). Severe stenosis of one of the superior division M2 branches (3/411). Rest of the distal cortical branches appear patent without high-grade stenosis. Subtle questionable opacification of the right P1 and P2 segments concerning for severe stenosis/near complete occlusion with reconstitution of distal segments with subtle opacification likely to collaterals. Left posterior cerebral artery and its branches appear patent. Anterior cerebral arteries and visualized branches are patent. Occlusion of the mid/distal (3/353) nondominant left vertebral artery. Dominant proximal and mid right vertebral artery grossly appears patent. Multifocal severe stenosis of the distal right vertebral artery and basilar artery (such as 3/363, 382, and 402). 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 Severe stenosis of the one of the inferior division proximal M2 branches with paucity of the distal cortical branches also considered chronic. * Short segment mild stenosis of the right proximal M1. Severe stenosis of the one of the superior division M2 branches. Rest of the M1 and distal cortical branches appear patent without high-grade stenosis. * Subtle questionable opacification of the right P1 and P2 segments concerning for sever (more content not included)... Invalid Interpretation Code [facility] CTA NECK W IVCONon 4 CTA NECK W IVCON * * *Final Report* * * DATE OF EXAM: Oct 19 2024 10:09AM [facility] [place] - CTA NECK W IVCON / PROCEDURE REASON: Focal neuro deficit, new, fixed, or worsening, < 4.5 hours, stroke suspected * * * * Physician Interpretation * * * * EXAMINATION: CTA NECK W IVCON, CTA HEAD W IVCON CLINICAL HISTORY: Left-sided weakness. TECHNIQUE: Spiral high resolution axial images were obtained through the head, neck and superior mediastinum following bolus administration of intravenous contrast for CT angiography. 3D maximum intensity projection images were created, reviewed and archived . MQ: CTAHN_4 Contrast: 80 mL Omnipaque [address] Radiation dose: Integrated Dose-Length Product (DLP) for this visit = 1307 mGy*cm. CT Dose Reduction Employed: Automated exposure control(AEC) and iterative recon COMPARISON: CT brain earlier same day. RESULT: BRAIN: Evaluation of the individual slices of the CTA demonstrates no evidence of an acute stroke. ASPECT Score = 10 Hemorrhage: No evidence of acute intracranial hemorrhage. ECASS hemorrhagic transformation score: Not Applicable NECK: Localizer images: No additional findings. Soft tissues: The soft tissue planes are maintained throughout. No evidence of a soft tissue mass in the neck or superior mediastinum. No significant lymphadenopathy is seen. 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 Heterogeneous attenuation of the left thyroid lobe and thyroid isthmus. Spine: Alignment is near normal. Moderate degenerative changes are present. Lung apices: The visualized lung apices are clear. Incidentally noted anterior right upper lobe pulmonary nodule (3/40) measuring 6 mm, in anterolateral left upper lobe (3/18) measuring 7 mm, and in anterior left upper pulmonary nodule (3/30) measuring [address] ARTERIOGRAM: Extracranial Circulation: Aortic Arch: There is a normal branching pattern from the aortic arch..Mixed density plaque formations at the origin of the left common carotid artery causing short segment mild stenosis. Atherosclerotic calcifications along the proximal right subclavian artery causing short segment moderate to severe stenosis. Otherwise, no no significant stenosis in the proximal brachiocephalic vessels. Carotid Stenosis: Right Common: No significant stenosis. Right Internal Carotid Plaque: Tiny atherosclerotic calcifications. Right Internal Carotid Stenosis (% by NASCET Criteria): 0 Left Common: No significant stenosis. Left Internal Carotid Plaque: Tiny atherosclerotic calcifications. Left Internal Carotid Stenosis (% by NASCET Criteria): 0 Cervical Vertebral Arteries: Patency: Bilateral Dominance: Right Atherosclerotic calcifications at the origin of the right vertebral artery causing short segment moderate stenosis. Rest of the bilateral cervical vertebral arteries appear patent without significant stenosis. Intracranial Circulation: Mixed density plaque formations along the intracranial segments of the bilateral internal carotid arteries causing foci of mild and moderate stenosis more pronounced on the right compared to left. Severe stenosis of the of the proximal left M1 (3/408) with multiple collaterals and small caliber patent visualized distal branches. Severe stenosis of one of the inferior division proximal M2 branches with paucity of the distal cortical branches (3/405). Short segments mild stenosis of the proximal right M1 (2/411). Severe stenosis of one of the superior division M2 branches (3/411). Rest of the distal cortical branches appear patent without high-grade stenosis. Subtle questionable opacification of the right P1 and P2 segments concerning for severe stenosis/near complete occlusion with reconstitution of distal segments with subtle opacification likely to collaterals. Left posterior cerebral artery and its branches appear patent. Anterior cerebral arteries and visualized branches are patent. Occlusion of the mid/distal (3/353) nondominant left vertebral artery. Dominant proximal and mid right vertebral artery grossly appears patent. Multifocal severe stenosis of the distal right vertebral artery and basilar artery (such as 3/363, 382, and 402). 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 Severe stenosis of the one of the inferior division proximal M2 branches with paucity of the distal cortical branches also considered chronic. * Short segment mild stenosis of the right proximal M1. Severe stenosis of the one of the superior division M2 branches. Rest of the M1 and distal cortical branches appear patent without high-grade stenosis. * Subtle questionable opacification of the right P1 and P2 segments concerning for sever (more content not included)... Invalid Interpretation Code [facility] ECG COMPLETEon 10-19-2024 ECG COMPLETE Ventricular Rate : 6 8 BPM Atrial Rate : 68 BPM P-R Interval : 216 ms QRS Duration : 122 ms Q-T Interval : 482 ms QTC Calculation(Bazett) : 512 ms Calculated P Parker : 74 degrees Calculated R Parker : -33 degrees Calculated T Parker : 16 degrees SINUS RHYTHM WITH 1ST DEGREE A-V BLOCK LEFT AXIS DEVIATION RIGHT BUNDLE BRANCH BLOCK ABNORMAL ECG NO STEMI Confirmed by Mena PARIKH ERIKA ([id number]), publications editor LINETTE CASTRO ([id number]) on 10/20/2024 3:28:49 PM NAME : FLORECITA HEALY PID : [id number] : 1940 Gender : Female Race : ORD : [id number] Procedure Date : Oct 19 2024 10:40:09 Edit Date : Oct 20 2024 15:28:50 Diagnosis: SINUS RHYTHM WITH 1ST DEGREE A-V BLOCK LEFT AXIS DEVIATION RIGHT BUNDLE BRANCH BLOCK ABNORMAL ECG NO STEMI Confirmed by Mena PARIKH ERIKA ([id number]), publications editor LINETTE CASTRO ([id number]) on 10/20/2024 3:28:49 PM Test Reason : Other - Specify Location : 1 : ER 13 Overread By : Mena PARIKH ERIKA Edited By : LINETTE CASTRO Referred By : , Acquired by : danna kruse, [facility] ED NOTEon 10-19-2024 ED NOTE HNO ID: [id number] Author: NETTA SALCIDO RN Service: Nursing Author Type: Registered Nurse Type: ED Notes Filed: 10/19/2024 22:01 Note Text: Report given to HERNESTO Alanis and care transferred at this time. [facility] ED NOTE HNO ID: [id number] Author: NETTA SALCIDO RN Service: Nursing Author Type: Registered Nurse Type: ED Notes Filed: 10/19/2024 19:12 Note Text: Patient had one episode of emesis. Dr. Kaplan notified and bedside. [facility] ED NOTE HNO ID: [id number] Author: NETTA SALCIDO RN Service: Nursing Author Type: Registered Nurse Type: ED Notes Filed: 10/19/2024 19:10 Note Text: Patient c/o headache. Dr. Kaplan notified. [facility] ED NOTE HNO ID: [id number] Author: NETTA SALCIDO RN Service: Nursing Author Type: Registered Nurse Type: ED Notes Filed: 10/19/2024 19:36 Note Text: Patient and notified of bed assignment at [facility] and ETA of transport. Verbalized understanding. [facility] ED NOTE HNO ID: [id number] Author: NETTA SALCIDO RN Service: Nursing Author Type: Registered Nurse Type: ED Notes Filed: 10/19/2024 17:29 Note Text: Pr Dr. Eusebio arguelles for patient to eat. Patient provided with turkey sandwich and apple juice. [facility] ED NOTE HNO ID: [id number] Author: NETTA SALCIDO RN Service: Nursing Author Type: Registered Nurse Type: ED Notes Filed: 10/19/2024 11:07 Note Text: Dr. Parikh notified of patient's BP 212/88 [facility] ED NOTE HNO ID: [id number] Author: NETTA SALCIDO RN Service: Nursing Author Type: Registered Nurse Type: ED Notes Filed: 10/19/2024 10:50 Note Text: Dr. Bo notified of patient's BP [facility] ED NOTE HNO ID: [id number] Author: NETTA SALCIDO RN Service: Nursing Author Type: Registered Nurse Type: ED Notes Filed: 10/19/2024 10:38 Note Text: Report received from HERNESTO Mckinley and care assumed at this time. [facility] ED NOTE HNO ID: [id number] Author: INEZ MASON RN Service: Nursing Author Type: Registered Nurse Type: ED Notes Filed: 10/19/2024 10:45 Note Text: Report to HERNESTO Cornell at this time. [facility] ED NOTE HNO ID: [id number] Author: INEZ MASON RN Service: Nursing Author Type: Registered Nurse Type: ED Notes Filed: 10/19/2024 09:53 Note Text: Accu check 115. [facility] ED NOTE HNO ID: [id number] Author: COLIN PASCUAL RN Service: Nursing Author Type: Registered Nurse Type: ED Notes Filed: 10/19/2024 09:51 Note Text: DR KATI OHARA, CALLS STROKE ALERT. [facility] ED PROV NOTEon 10-19-2024 ED PROV NOTE HNO ID: [id number] Author: GARRET KAPLAN MD Service: ? Author Type: Physician Type: ED Provider Notes Filed: 10/20/2024 00:15 Note Text: ED CONTINUATION OF CARE NOTE Code Status: Prior Assumed care from: Kati Presentation / Findings / Interventions / Plan / Items to Follow Up: Patient presenting secondary to an acute ischemic stroke and is found to have significant vascular disease. Patient is pending transfer when I assumed care. As noted in the ED course patient developed a headache and vomiting repeat CT did not demonstrate any evidence of hemorrhagic transformation. Patient after boarding in the emergency department for 14 hours was readdressed with transfer center who informed me that the patient does not have a bed assignment at the neuro ICU at [facility] as of yet. I discussed patient's case with the ED-hospital, patient will be boarded in the intensive care unit at [facility] pending a neuro ICU bed at [facility]. Critical Care I spent a total of 31 minutes of critical care time in the evaluation and management of this patient. 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 The patient received Consultation by ICU during the time that critical care was provided. Critical care time excludes separately billed procedures. Garret Kaplan MD ED Course as of 10/20/2414 Garret Kaplan's Documentation Sun Oct 19, 20241911 Patient developed a headache and nausea and vomiting. No changes in neuroexam. Patient will receive a repeat head CT to ensure there is not hemorrhagic transformation Clinical Impressions as of 10/20/2414 Acute ischemic stroke (HCC) Left-sided weakness Numbness of leg Medical Decision Making SIGNATURE: Garret Kaplan MD PATIENT NAME: Florecita Healy DATE: October 19, 2024 TIME: 3:35 PM PAGER/CONTACT #: GARRET KAPLAN 10/20/24 0015 [facility] ED PROV NOTE HNO ID: [id number] Author: RANDY PARIKH MD Service: ? Author Type: Physician Type: ED Provider Notes Filed: 10/19/2024 11:07 Note Text: ED Provider Note Patient Name: Florecita Healy : 1940 SERVICE DATE: 10/19/24 History Patient presents with: Leg Weakness: Patient presents to ED with CC of L leg weakness. Patient states she has had difficulty ambulating due to the weakness in the L leg. Symptoms started when she woke up at 0500. Patients family also endorses concern for slurred speech which patient states is related to her mouth being dry. No L sided facial droop or L arm weakness per patient. 84-year-old female with history of COPD, chronic lumbar radiculopathy, hypertension, and hyperlipidemia who presents here with slurred speech and left weakness. Patient awoke this morning at 5 AM with left lower extremity weakness and inability to walk. Her last known normal was 11 PM last night when she went to bed. Her grandson spoke with her at 830 this morning and he felt she had slurred speech. She reports left leg weakness and her left arm feeling slightly weak. It is associated with some numbness in the left lower leg. Over the last week she does admit to having lower lumbar back pain. However this is not new for her. PAST MEDICAL HISTORY Diagnosis Date Abnormal ultrasound of breast 12/02/15 Left Breast cancer of upper-outer quadrant of left female breast (HCC) Chronic obstructive pulmonary disease (COPD) ([facility]) Chronic pain 06/03/2012 sees pain management. Diarrhea 11/06/2022 Hyperlipidemia 06/03/2012 Hypertension 06/03/2012 Nausea AND vomiting 11/06/2022 Osteopenia Psoriasis Pulmonary nodule Dr. Dawn Sepsis ([facility]) 11/05/2022 Snoring PAST SURGICAL HISTORY Procedure Laterality [...] History Tobacco Use Smoking status: Every Day Current packs/day: 1.00 Average packs/day: 1 pack/day for 40.0 years (40.0 ttl pk-yrs) Types: Cigarettes Smokeless tobacco: Never Vaping Use Vaping status: Never Used Substance and Sexual Activity Alcohol use: No Drug use: No Sexual activity: Not Currently ALLERGIES Allergen Reactions Animal Dander Intolerance Darvocet A500 [Prop* Mental Status Change Dust Other: See Comments Grass Pollen Other: See Comments Mold Other: See Comments Soma [Carisoprodol] Swelling, Itching Trees Other: See Comments Review of Systems Constitutional: Negative for chills and fever. HENT: Negative for congestion, rhinorrhea, sinus pressure, sinus pain, sneezing and sore throat. Eyes: Negative for visual disturbance. Respiratory: Negative for cough and shortness of breath. Cardiovascular: Negative for chest pain, palpitations and leg swelling. Gastrointestinal: Negative for abdominal pain, diarrhea, nausea and vomiting. Genitourinary: Negative for difficulty urinating, dysuria, flank pain and hematuria. Musculoskeletal: Negative for back pain, myalgias and neck stiffness. Skin: Negative for pallor. Neurological: Positive for speech difficulty, weakness and numbness. Negative for dizziness, light-headedness and headaches. Psychiatric/Behavioral : Negative for confusion. All other systems reviewed and are negative. Physical Exam Vitals [10/19/24 0938] BP Pulse Temp Temp src Resp SpO2 Weight Height 148/101 74 36.6 ?C (97.8 ?F) Temporal 20 98 % 73 kg (161 lb) -- Physical Exam Vitals and nursing note reviewed. Constitutional: General: She is not in acute distress. Appearance: Normal appearance. She is well-developed. HENT: Head: Normocephalic and atraumatic. Right Ear: External ear normal. Left Ear: External ear normal. Nose: Nose normal. Mouth/Throat: Mouth: Mucous mem (more content not included)... Normal [facility] HIGH SENSITIVITY TROPONIN To n 10-19-2024 Troponin T.cardiac High sensitivity method [Mass/Vol] 17 ng/L High <12 [facility] Comment on above: Order Comment: Laura mejía Type: BLOOD SPECIMENOrdering Facility: [facility] Address: [address] [place] [address] Performed By: #### H STN, 27121-8 ####[facility] LABORATORYCLIA [id number] [place] [address] [place] PT panel Coag (PPP)on 2023 INR Coag (PPP) [Relative time] 0.9 {INR} Normal 0.9-1.3 [facility] Comment on above: Order Comment: Laura mejía Type: BLOOD SPECIMENOrdering Facility: [facility] Address: [address] [place] [address] Result Comment: Isabell min K Antagonist (VKA) Therapeutic Range: INR 2 to 3 (Target INR of 2.5) Note: For patients treated with VKA drugs, such as warfarin, the [place] [employer] 2012 Guideline recommends a therapeutic INR range of 2 to 3 (target INR of 2.5). This recommendation includes high-risk patients with antiphospholipid syndrome with previous arterial or venous thromboembolism, current-generation mechanical or bioprosthetic aortic heart valve replacement. Note: Patients with mechanical aortic valve replacement and additional risk factors for thromboembolic events (atrial fibrillation, previous thromboembolism, LV dysfunction, hypercoagulable conditions) or an older generation mechanical AVR (i.e., ball in-Cage) or any mechanical MVR should have a INR therapeutic range of 2.5 to 3.5 (target INR of 3). Milla GH, et al. Chest 2012, 141:7S-47S Deena RA, et al. [facility] 2017, 70: 252-289 Performed By: #### 1 4979-9, 19115-1 ####[facility] LABORATORYCLIA [id number] [place] [address] [place] PT Coag (PPP) [Time] 10.3 s Normal 9.7-13.0 [facility] Comment on above: Order Comment: Speci men Type: BLOOD SPECIMENOrdering Facility: [facility] Address: [address] [place] [place] [address] Performed By: #### 1 4979-9, 45283-5 ####[facility] LABORATORYCLIA [id number] [address] [place] aPTT PPPon 10-19-2024 aPTT Coag (PPP) [Time] 28.8 s Normal 23.0-32.4 [facility] Comment on above: Order Comment: Speci men Type: BLOOD SPECIMENOrdering Facility: [facility] Address: [address] [address] Performed By: #### 1 4979-9, 28373-3 ####[facility] LABORATORYCLIA [id number] [address] [place] CNCOon 10-14-2024 CNCO Letter Text Normal [facility] CNPNon 10-14-2024 CNPN Normal [facility] CNPTOUTREACHon 09-22-2024 CNPTOUTREACH Normal [facility] CNPNon 09-18-2024 CNPN Normal [facility] CBC W Auto Differential pane l (Bld)on 09-17-2024 Basophils (Bld) [#/Vol] 0.05 10*3/uL [facility] Basophils/100 WBC (Bld) 0.8 % [facility] Differential cell count method Nom (Bld) Auto [facility] Eosinophils (Bld) [#/Vol] 0.05 10*3/uL [facility] Eosinophils/100 WBC (Bld) 0.8 % [facility] Erythrocyte distribution width (RBC) [Ratio] 14.5 % 11.5 - 15.0 % [facility] Hematocrit (Bld) [Volume fraction] 40.0 % 36.0 - 46.0 % [facility] Hemoglobin (Bld) [Mass/Vol] 12.6 g/dL 11.5 - 15.5 g/dL [facility] Immature granulocytes (Bld) [#/Vol] 0.03 10*3/uL [facility] Immature granulocytes/100 WBC (Bld) 0.5 % [facility] Lymphocytes (Bld) [#/Vol] 1.74 10*3/uL [facility] Lymphocytes/100 WBC (Bld) 29.0 % [facility] MCH (RBC) [Entitic mass] 28.1 pg 26.0 - 34.[address] [facility] MCHC (RBC) [Mass/Vol] 31.5 g/dL 30.5 - 36.0 g/dL [facility] MCV (RBC) [Entitic vol] 89.1 fL 80.0 - 100.[address] [facility] Monocytes (Bld) [#/Vol] 0.70 10*3/uL [facility] Monocytes/100 WBC (Bld) 11.7 % [facility] Neutrophils (Bld) [#/Vol] 3.43 10*3/uL [facility] Neutrophils/100 WBC (Bld) 57.2 % [facility] Nucleated RBC (Bld) [#/Vol] [facility] Nucleated RBC/100 WBC (Bld) [Ratio] 0.0 % /[address] [facility] Platelet mean volume (Bld) [Entitic vol] 11.1 fL 9.0 - 12.[address] [facility] Platelets (Bld) [#/Vol] 218 10*3/uL [facility] RBC (Bld) [#/Vol] 4.49 10*6/uL 3.90 - 5.2 0 m/uL [facility] WBC (Bld) [#/Vol] 6.00 10*3/uL [facility] Basophils (Bld) [#/Vol] 0.05 10*3/uL Normal <0.11 [facility] Comment on above: Order Comment: Speci men Type: BLOOD SPECIMENOrdering Facility: [facility] Address: [address] [place] [address] Performed By: #### 5 7021-8 ####[facility] LABCLIA [id number] [place] [address] [place] Basophils/100 WBC (Bld) 0.8 % Normal [facility] Comment on above: Order Comment: Speci men Type: BLOOD SPECIMENOrdering Facility: [facility] Address: [address] [place] [address] Performed By: #### 5 7021-8 ####[facility] LABCLIA [id number] [place] [address] [place] Differential cell count method Nom (Bld) Auto Normal [facility] Comment on above: Order Comment: Speci men Type: BLOOD SPECIMENOrdering Facility: [facility] Address: [address] [place] [place] [address] Performed By: #### 5 7021-8 ####[facility] LABCLIA [id number] [place] [address] [place] Eosinophils (Bld) [#/Vol] 0.05 10*3/uL Normal <0.46 [facility] Comment on above: Order Comment: Speci men Type: BLOOD SPECIMENOrdering Facility: [facility] Address: [address] [place] [place] [address] Performed By: #### 5 7021-8 ####[facility] LABCLIA [id number] [place] [address] [place] Eosinophils/100 WBC (Bld) 0.8 % Normal [facility] Comment on above: Order Comment: Speci men Type: BLOOD SPECIMENOrdering Facility: [facility] Address: [address] [place] [place] [address] Performed By: #### 5 7021-8 ####[facility] LABCLIA [id number] [place] [address] [place] Erythrocyte distribution width (RBC) [Ratio] 14.5 % Normal 11.5-15.0 [facility] Comment on above: Order Comment: Speci men Type: BLOOD SPECIMENOrdering Facility: [facility] Address: [address] [place] [place] [address] Performed By: #### 5 7021-8 ####[facility] LABIA [id number] [place] [address] [place] Hematocrit (Bld) [Volume fraction] 40.0 % Normal 36.0-46.0 [facility] Comment on above: Order Comment: Speci men Type: BLOOD SPECIMENOrdering Facility: [facility] Address: [address] [place] [place] [address] Performed By: #### 5 7021-8 ####[facility] LABIA [id number] [place] [address] [place] Hemoglobin (Bld) [Mass/Vol] 12.6 g/dL Normal 11.5-15.5 [facility] Comment on above: Order Comment: Speci men Type: BLOOD SPECIMENOrdering Facility: [facility] Address: [address] [place] [address] Performed By: #### 5 7021-8 ####[facility] LABIA [id number] [place] [address] [place] Immature granulocytes (Bld) [#/Vol] 0.03 10*3/uL Normal <0.10 [facility] Comment on above: Order Comment: Speci men Type: BLOOD SPECIMENOrdering Facility: [facility] Address: [address] [place] [address] Performed By: #### 5 7021-8 ####[facility] LABIA [id number] [place] [address] [place] Immature granulocytes/100 WBC (Bld) 0.5 % Normal [facility] Comment on above: Order Comment: Speci men Type: BLOOD SPECIMENOrdering Facility: [facility] Address: [address] [place] [place] [address] Performed By: #### 5 7021-8 ####[facility] LABCLIA [id number] [place] [address] [place] Lymphocytes (Bld) [#/Vol] 1.74 10*3/uL Normal 1.00-4.00 [facility] Comment on above: Order Comment: Speci men Type: BLOOD SPECIMENOrdering Facility: [facility] Address: [address] [place] [place] [address] Performed By: #### 5 7021-8 ####[facility] LABCLIA [id number] [place] [address] [place] Lymphocytes/100 WBC (Bld) 29.0 % Normal [facility] Comment on above: Order Comment: Speci men Type: BLOOD SPECIMENOrdering Facility: [facility] Address: [address] [place] [address] Performed By: #### 5 7021-8 ####[facility] LABIA [id number] [place] [address] [place] MCH (RBC) [Entitic mass] 28.1 pg Normal 26.0-34.0 [facility] Comment on above: Order Comment: Speci men Type: BLOOD SPECIMENOrdering Facility: [facility] Address: [address] [place] [address] Performed By: #### 5 7021-8 ####[facility] LABCLIA [id number] [place] [address] [place] MCHC (RBC) [Mass/Vol] 31.5 g/dL Normal 30.5-36.0 [facility] Comment on above: Order Comment: Speci men Type: BLOOD SPECIMENOrdering Facility: [facility] Address: [address] [place] [address] Performed By: #### 5 7021-8 ####[facility] LABCLIA [id number] [place] [address] [place] MCV (RBC) [Entitic vol] 89.1 fL Normal 80.0-100.0 [facility] Comment on above: Order Comment: Speci men Type: BLOOD SPECIMENOrdering Facility: [facility] Address: [address] [place] [address] Performed By: #### 5 7021-8 ####[facility] LABCLIA [id number] [place] [address] [place] Monocytes (Bld) [#/Vol] 0.70 10*3/uL Normal <0.87 [facility] Comment on above: Order Comment: Speci men Type: BLOOD SPECIMENOrdering Facility: [facility] Address: [address] [place] [address] Performed By: #### 5 7021-8 ####[facility] LABCLIA [id number] [place] [address] [place] Monocytes/100 WBC (Bld) 11.7 % Normal [facility] Comment on above: Order Comment: Speci men Type: BLOOD SPECIMENOrdering Facility: [facility] Address: [address] [place] [place] [address] Performed By: #### 5 7021-8 ####[facility] LABCLIA [id number] [place] [address] [place] Neutrophils (Bld) [#/Vol] 3.43 10*3/uL Normal 1.45-7.50 [facility] Comment on above: Order Comment: Speci men Type: BLOOD SPECIMENOrdering Facility: [facility] Address: [address] [place] [address] Performed By: #### 5 7021-8 ####[facility] LABCLIA [id number] [place] [address] [place] Neutrophils/100 WBC (Bld) 57.2 % Normal [facility] Comment on above: Order Comment: Speci men Type: BLOOD SPECIMENOrdering Facility: [facility] Address: [address] [place] [address] Performed By: #### 5 7021-8 ####[facility] LABCLIA [id number] [place] [address] [place] Nucleated RBC (Bld) [#/Vol] 10*3/uL Normal <0.01 [facility] Comment on above: Order Comment: Speci men Type: BLOOD SPECIMENOrdering Facility: [facility] Address: [address] [place] [place] [address] Performed By: #### 5 7021-8 ####[facility] LABIA [id number] [place] [address] [place] Nucleated RBC/100 WBC (Bld) [Ratio] 0.0 /100 WBC Normal [facility] Comment on above: Order Comment: Speci men Type: BLOOD SPECIMENOrdering Facility: [facility] Address: [address] [place] [place] [address] Performed By: #### 5 7021-8 ####[facility] LABIA [id number] [place] [address] [place] Platelet mean volume (Bld) [Entitic vol] 11.1 fL Normal 9.0-12.7 [facility] Comment on above: Order Comment: Speci men Type: BLOOD SPECIMENOrdering Facility: [facility] Address: [address] [place] [place] [address] Performed By: #### 5 7021-8 ####[facility] LABIA [id number] [place] [address] [place] Platelets (Bld) [#/Vol] 218 10*3/uL Normal 150-400 [facility] Comment on above: Order Comment: Speci men Type: BLOOD SPECIMENOrdering Facility: [facility] Address: [address] [place] [place] [address] Performed By: #### 5 7021-8 ####[facility] LABCLIA [id number] [place] [address] [place] RBC (Bld) [#/Vol] 4.49 10*6/uL Normal 3.90-5.20 [facility] Comment on above: Order Comment: Speci men Type: BLOOD SPECIMENOrdering Facility: [facility] Address: [address] [place] [place] [address] Performed By: #### 5 7021-8 ####[facility] LABCLIA [id number] [address] [place] WBC (Bld) [#/Vol] 6.00 10*3/uL Normal 3.70-11.00 [facility] Comment on above: Order Comment: Speci men Type: BLOOD SPECIMENOrdering Facility: [facility] Address: [address] [place] [place] [address] Performed By: #### 5 7021-8 ####[facility] LABCLIA [id number] [place] [address] [place] CNOVon 09-17-2024 CNOV Normal [facility] Comprehensive metabolic 2000 panelon 09-17-2024 Albumin [Mass/Vol] 4.1 g/dL 3.9 - 4.9 g/dL [facility] ALP [Catalytic activity/Vol] 96 U/L 34 - 123 U/L [facility] ALT [Catalytic activity/Vol] 11 U/L 7 - 38 U/L [facility] Anion gap [Moles/Vol] 14 mmol/L 8 - 15 mmol/L [facility] AST [Catalytic activity/Vol] 18 U/L 13 - 35 U/L [facility] Bilirubin [Mass/Vol] 0.6 mg/dL 0.2 - 1 .3 mg/dL [facility] Calcium [Mass/Vol] 9.0 mg/dL 8.5 - 10. 2 mg/dL [facility] Chloride [Moles/Vol] 105 mmol/L 98 - 10 7 mmol/L [facility] CO2 [Moles/Vol] 22 mmol/L 22 - 30 mmol/L [facility] Creatinine [Mass/Vol] 0.95 mg/dL 0.58 - 0.96 mg/dL [facility] GFR/1.73 sq M.predicted among non-blacks MDRD (S/P/Bld) [Vol rate/Area] 60 mL/min/{1.73_m2} - PINF [facility] Comment on above: Estimated Glomerular Filtration Rate (eGFR) is calculated using the 2020 CKD-EPI creatinine equation. This equation utilizes serum creatinine, sex, and age as parameters. The creatinine assay has traceable calibration to isotope dilution-mass spectrometry. Refer to KDIGO guidelines for clinical interpretation. In patients with unstable renal function, e.g. those with acute kidney injury, the eGFR may not accurately reflect actual GFR. Glucose [Mass/Vol] 99 mg/dL 74 - 99 mg/dL [facility] Comment on above: The [place] Diabete s Association (ADA) provides guidance for cutoff values for fasting glucose and random glucose. The ADA defines fasting as no caloric intake for at least 8 hours. Fasting plasma glucose results between 100 to 125 mg/dL indicate increased risk for diabetes (prediabetes). Fasting plasma glucose results greater than or equal to 126 mg/dL meet the criteria for diagnosis of diabetes. In the absence of unequivocal hyperglycemia, results should be confirmed by repeat testing. In a patient with classic symptoms of hyperglycemia or hyperglycemic crisis, random plasma glucose results greater than or equal to 200 mg/dL meet the criteria for diagnosis of diabetes. Reference: Standards of Medical Care in Diabetes 2016, [place] Diabetes Association. Diabetes Care. 2016.39(Suppl 1). Interpretation and review of laboratory results Normal [facility] Potassium [Moles/Vol] 4.0 mmol/L 3.7 - 5.1 mmol/L [facility] Protein [Mass/Vol] 7.1 g/dL 6.3 - 8.0 g/dL [facility] Sodium [Moles/Vol] 141 mmol/L 136 - 144 mmol/L [facility] Urea nitrogen [Mass/Vol] 17 mg/dL 7 - 21 mg/dL [facility] Albumin [Mass/Vol] 4.1 g/dL Normal 3.9-4.[address] [facility] Comment on above: Order Comment: Speci men Type: BLOOD SPECIMENOrdering Facility: [facility] Address: [address] [place] [address] [place] [address] Performed By: #### 3 016-3, 45574-3 ####[facility] LABCLIA [id number] [place] [address] [place] ALP [Catalytic activity/Vol] 96 U/L Normal 34-123 [facility] Comment on above: Order Comment: Speci men Type: BLOOD SPECIMENOrdering Facility: [facility] Address: [address] [place] [place] [address] Performed By: #### 3 016-3, 62643-3 ####[facility] LABCLIA [id number] [place] [address] [place] ALT [Catalytic activity/Vol] 11 U/L Normal 7-38 [facility] Comment on above: Order Comment: Speci men Type: BLOOD SPECIMENOrdering Facility: [facility] Address: [address] [place] [place] [address] Performed By: #### 3 016-3, 02640-9 ####[facility] LABCLIA [id number] [place] [address] [place] Anion gap [Moles/Vol] 14 mmol/L Normal 8-15 [facility] Comment on above: Order Comment: Speci men Type: BLOOD SPECIMENOrdering Facility: [facility] Address: [address] [place] [place] [address] Performed By: #### 3 016-3, ####[facility] LABCLIA [id number] [place] [address] [place] AST [Catalytic activity/Vol] 18 U/L Normal 13-35 [facility] Comment on above: Order Comment: Speci men Type: BLOOD SPECIMENOrdering Facility: [facility] Address: [address] [place] [place] [address] Performed By: #### 3 016-3, 92689-2 ####[facility] LABCLIA [id number] [place] [address] [place] Bilirubin [Mass/Vol] 0.6 mg/dL Normal 0.2-1.3 [facility] Comment on above: Order Comment: Speci men Type: BLOOD SPECIMENOrdering Facility: [facility] Address: [address] [place] [address] Performed By: #### 3 016-3, ####[facility] LABCLIA [id number] [address] [address] [place] Calcium [Mass/Vol] 9.0 mg/dL Normal 8.5-10.[address] [facility] Comment on above: Order Comment: Speci men Type: BLOOD SPECIMENOrdering Facility: [facility] Address: [address] [place] [address] Performed By: #### 3 016-3, ####[facility] LABCLIA [id number] [place] [address] [place] Chloride [Moles/Vol] 105 mmol/L Normal 98-107 [facility] Comment on above: Order Comment: Speci men Type: BLOOD SPECIMENOrdering Facility: [facility] Address: [address] [place] [address] Performed By: #### 3 016-3, ####[facility] LABCLIA [id number] [place] [address] [place] CO2 [Moles/Vol] 22 mmol/L Normal 22-30 [facility] Comment on above: Order Comment: Speci men Type: BLOOD SPECIMENOrdering Facility: [facility] Address: [address] [place] [address] Performed By: #### 3 016-3, 16362-8 ####[facility] LABCLIA [id number] [place] [address] [place] Creatinine [Mass/Vol] 0.95 mg/dL Normal 0.58-0.96 [facility] Comment on above: Order Comment: Speci men Type: BLOOD SPECIMENOrdering Facility: [facility] Address: [address] [place] [address] Performed By: #### 3 016-3, 36128-8 ####[facility] LABCLIA [id number] [place] [address] [place] Creatinine and Glomerular filtration rate.predicted panel (S/P/Bld) 60 mL/min/1.73m??? Normal >=60 [facility] Comment on above: Order Comment: Laura mejía Type: BLOOD SPECIMENOrdering Facility: [facility] Address: [address] [place] [address] Result Comment: Callie mated Glomerular Filtration Rate (eGFR) is calculated using the 2020 CKD-EPI creatinine equation. This equation utilizes serum creatinine, sex, and age as parameters. The creatinine assay has traceable calibration to isotope dilution-mass spectrometry. Refer to KDIGO guidelines for clinical interpretation. In patients with unstable renal function, e.g. those with acute kidney injury, the eGFR may not accurately reflect actual GFR. Performed By: #### 3 016-3, 21745-4 ####[facility] LABCLIA [id number] [place] [address] [place] Glucose [Mass/Vol] 99 mg/dL Normal 74-[address] [facility] Comment on above: Order Comment: Laura mejía Type: BLOOD SPECIMENOrdering Facility: [facility] Address: [address] [place] [address] Result Comment: The [place] Diabetes Association (ADA) provides guidance for cutoff values for fasting glucose and random glucose. The ADA defines fasting as no caloric intake for at least 8 hours. Fasting plasma glucose results between 100 to 125 mg/dL indicate increased risk for diabetes (prediabetes).Fasting plasma glucose results greater than or equal to 126 mg/dL meet the criteria for diagnosis of diabetes. In the absence of unequivocal hyperglycemia, results should be confirmed by repeat testing. In a patient with classic symptoms of hyperglycemia or hyperglycemic crisis, random plasma glucose results greater than or equal to 200 mg/dL meet the criteria for diagnosis of diabetes.Reference: Standards of Medical Care in Diabetes 2016, [place] Diabetes Association. Diabetes Care. 2016.39(Suppl 1). Performed By: #### 3 016-3, 46767-1 ####[facility] LABCLIA [id number] [place] [address] [place] Potassium [Moles/Vol] 4.0 mmol/L Normal 3.7-5.1 [facility] Comment on above: Order Comment: Speci men Type: BLOOD SPECIMENOrdering Facility: [facility] Address: [address] [place] [address] Performed By: #### 3 016-3, 05300-6 ####[facility] LABCLIA [id number] [place] [address] [place] Protein [Mass/Vol] 7.1 g/dL Normal 6.3-8.[address] [facility] Comment on above: Order Comment: Speci men Type: BLOOD SPECIMENOrdering Facility: [facility] Address: [address] [place] [address] Performed By: #### 3 016-3, 52336-3 ####[facility] LABCLIA [id number] [place] [address] [place] Sodium [Moles/Vol] 141 mmol/L Normal 136-[address] [facility] Comment on above: Order Comment: Speci men Type: BLOOD SPECIMENOrdering Facility: [facility] Address: [address] [place] [address] Performed By: #### 3 016-3, 56517-9 ####[facility] LABCLIA [id number] [place] [address] [place] Urea nitrogen [Mass/Vol] 17 mg/dL Normal 7-21 [facility] Comment on above: Order Comment: Speci men Type: BLOOD SPECIMENOrdering Facility: [facility] Address: [address] [place] [address] Performed By: #### 3 016-3, 93402-0 ####[facility] LABCLIA [id number] [place] [id number] [place] THYROID STIMULATING HORMONEo n 11-06-2024 TSH Qn 3.850 m[IU]/L [facility] TSH Qnon 09-17-2024 Interpretation and review of laboratory results Normal [facility] TSH SerPl-aCncon 09-17-2024 TSH Qn 3.850 m[IU]/L Normal 0.270-4.200 [facility] Comment on above: Order Comment: Speci men Type: BLOOD SPECIMENOrdering Facility: [facility] Address: [address] [place] [address] Performed By: #### 3 016-3, 68211-5 ####[facility] LABCLIA [id number] [place] [address] [place] CNPTOUTREACHon 09-08-2024 CNPTOUTREACH Normal [facility] CNPTOUTREACHon 09-05-2024 CNPTOUTREACH Normal [facility] CNOVon 08-12-2024 CNOV Normal [facility] CNPTOUTREACHon 08-08-2024 CNPTOUTREACH Normal [facility] CNPTOUTREACHon 07-28-2024 CNPTOUTREACH Normal [facility] CNPTOUTREACHon 07-25-2024 CNPTOUTREACH Normal [facility] CNOVon 07-09-2024 CNOV Normal [facility] CNPTOUTREACHon 07-04-2024 CNPTOUTREACH Normal [facility] CNPTOUTREACHon 07-03-2024 CNPTOUTREACH Normal [facility] CNOVon 07-01-2024 CNOV Normal [facility] CNPTOUTREACHon 06-21-2024 CNPTOUTREACH Normal [facility] CNPTOUTREACHon 06-20-2024 CNPTOUTREACH Normal [facility] CBC W Auto Differential pane l (Bld)on 03-19-2024 Basophils (Bld) [#/Vol] 0.03 10*3/uL NINF [facility] Basophils/100 WBC (Bld) 0.4 % [facility] Differential cell count method Nom (Bld) Auto [facility] Eosinophils (Bld) [#/Vol] 0.05 10*3/uL [facility] Eosinophils/100 WBC (Bld) 0.7 % [facility] Erythrocyte distribution width (RBC) [Ratio] 14.7 % 11.5 - 15.0 % [facility] Hematocrit (Bld) [Volume fraction] 38.1 % 36.0 - 46.0 % [facility] Hemoglobin (Bld) [Mass/Vol] 12.6 g/dL 11.5 - 15.5 g/dL [facility] Immature granulocytes (Bld) [#/Vol] 0.04 10*3/uL [facility] Immature granulocytes/100 WBC (Bld) 0.6 % [facility] Lymphocytes (Bld) [#/Vol] 1.57 10*3/uL [facility] Lymphocytes/100 WBC (Bld) 22.5 % [facility] MCH (RBC) [Entitic mass] 30.1 pg 26.0 - 34.[address] [facility] MCHC (RBC) [Mass/Vol] 33.1 g/dL 30.5 - 36.0 g/dL [facility] MCV (RBC) [Entitic vol] 91.1 fL 80.0 - 100.[address] [facility] Monocytes (Bld) [#/Vol] 0.74 10*3/uL [facility] Monocytes/100 WBC (Bld) 10.6 % [facility] Neutrophils (Bld) [#/Vol] 4.56 10*3/uL [facility] Neutrophils/100 WBC (Bld) 65.2 % [facility] Nucleated RBC (Bld) [#/Vol] [facility] Nucleated RBC/100 WBC (Bld) [Ratio] 0.0 % /[address] [facility] Platelet mean volume (Bld) [Entitic vol] 11.2 fL 9.0 - 12.[address] [facility] Platelets (Bld) [#/Vol] 197 10*3/uL [facility] RBC (Bld) [#/Vol] 4.18 10*6/uL 3.90 - 5.2 0 m/uL [facility] WBC (Bld) [#/Vol] 6.99 10*3/uL [facility] US Thyroid glandon 4 IMPRESSION: Heterogeneous thyroid parenchyma. No discrete nodule is visualized. [employer] Operator: PSC[employer] Transcribe Date/Time: Dec 11 2023 4:02P Dictated by : NATALIA DE DIOS MD This examination was interpreted and the report reviewed and electronically signed by: NATALIA DE DIOS MD on Dec 11 2023 4:04PM [facility] DIVISION OF RADIOLOGY * * *Final Report* * * DATE OF [facility]AM: Dec 10 2023 1:26PM [facility]/PARATHYROID / PROCEDURE REASON: Multiple thyroid nodules * * * * Physician Interpretation * * * * EXAMINATION: THYROID ULTRASOUND CLINICAL HISTORY: Multiple thyroid nodules TECHNIQUE: Sonography and Doppler imaging of the thyroid was performed. Images were obtained and stored in a permanent archive. MQ: UST_1 COMPARISON: None. RESULT: Right Lobe: History of right thyroidectomy. Left Lobe: 5.8 x 2.1 x 2.2 cm; heterogeneous echogenicity, increased vascular flow on color Doppler imaging. Isthmus: cm The most suspicious thyroid nodule(s) (up to four) as below: Nodules: None DIVISION OF RADIOLOGY Provider, [facility] - 12/11/2023 * * *Final Report* * * DATE OF EXAM: Dec 10 2023 1:26PM [facility] THYROID/PARATHYROID / PROCEDURE REASON: Multiple thyroid nodules * * * * Physician Interpretation * * * * EXAMINATION: THYROID ULTRASOUND CLINICAL HISTORY: Multiple thyroid nodules TECHNIQUE: Sonography and Doppler imaging of the thyroid was performed. Images were obtained and stored in a permanent archive. MQ: UST_1 COMPARISON: None. RESULT: Right Lobe: History of right thyroidectomy. Left Lobe: 5.8 x 2.1 x 2.2 cm; heterogeneous echogenicity, increased vascular flow on color Doppler imaging. Isthmus: cm The most suspicious thyroid nodule(s) (up to four) as below: Nodules: None IMPRESSION IMPRESSION: Heterogeneous thyroid parenchyma. No discrete nodule is visualized. [employer]: PSC[employer] Transcribe Date/Time: Dec 11 2023 4:02P Dictated by : NATALIA DE DIOS MD This examination was interpreted and the report reviewed and electronically signed by: NATALIA DE DIOS MD on Dec 11 2023 4:04PM [facility] US Thyroid glandOrdered By: [facility] Provider on 12-11-[address] [facility] US Thyroid glandon Radiology Study observation (narrative) [facility] Absolute lymphocyte countOrd ered By: Hector Kerns on 11-13-2023 Lymphocytes Auto (Unsp spec) [#/Vol] 1.24 10*3/uL 0.83-4.51 [facility] Basophil percentageOrdered B y: Hector Kerns on 11-13-2023 Basophils/100 WBC (Bld) 0.6 % 0-1 [facility] Chloride [Moles/Vol] 107 mmol/L 98-107 [facility] Eosinophils/100 WBC (Bld) 0.4 % 0-5 [facility] Glucose [Mass/Vol] 166 mg/dL 74-106 [facility] Comment on above: Fasting Glucose resu lt greater than or equal to 126 mg/dL suggests DIABETES MELLITUS per A.D.A. criteria. Neutrophils (Bld) [#/Vol] 5.1 10*3/uL 2.0-7.7 [facility] Neutrophils/100 WBC (Bld) 71.2 % 47-70 [facility] Potassium [Moles/Vol] 3.3 mmol/L 3.5-5.1 [facility] Sodium [Moles/Vol] 137 mmol/L 136-145 [facility] WBC (Bld) [#/Vol] 7.2 10*3/uL 4.4-11.0 [facility] Blood erythrocytes count (nu mber/volume)Ordered By: Hector Kerns on 11-13-2023 RBC (Bld) [#/Vol] 4.18 10*6/uL 4.2-5.4 [facility] Blood hemoglobin measurement (mass/volume)Ordered By: Hector Kerns on 11-13-2023 Hemoglobin (Bld) [Mass/Vol] 12.7 g/dL 12.0-15.0 [facility] Blood lymphocytes/100 leukoc ytesOrdered By: Hector Kerns on 11-13-2023 Lymphocytes/100 WBC (Bld) 17.2 % 19-41 [facility] Blood monocytes/100 leukocyt esOrdered By: Hector Kerns on 11-13-2023 Monocytes/100 WBC (Bld) 9.8 % 0-10 [facility] Blood platelet mean volumeOr dered By: Hector Kerns on 11-13-2023 Platelet mean volume (Bld) [Entitic vol] 11.3 fL 6.2-12.0 [facility] Determination of erythrocyte mean corpuscular volume (MCV)Ordered By: Hector Kerns on 11-13-2023 MCV (RBC) [Entitic vol] 85.9 fL 81-99 [facility] Hematocrit Auto (Bld) [Volum e fraction]Ordered By: Hector Kerns on 11-13-2023 Hematocrit (Bld) [Volume fraction] 35.9 % 37-47 [facility] INR in Blood by Coagulation assayOrdered By: Hector Kerns on 11-13-2023 INR Coag (Bld) [Relative time] 1.0 {INR} [facility] Laboratory - Chemistry and C hemistry - challengeOrdered By: Hector Kerns on 11-13-2023 CO2 [Moles/Vol] 26.0 mmol/L 21.0-32.0 [facility] Urea nitrogen/Creatinine [Mass ratio] 16.1 mg/mg 10-20 [facility] Laboratory - CoagulationOrde red By: Hector Kerns on 11-13-2023 aPTT Coag (Bld) [Time] 33.5 s 24.1-36.2 [facility] PT Coag (PPP) [Time] 13.1 s 11.7-14.9 [facility] Laboratory - Hematology and Cell countsOrdered By: Hector Kerns on 11-13-2023 Erythrocyte distribution width (RBC) [Entitic vol] 42.5 fL 35.1-43.9 [facility] Erythrocyte distribution width (RBC) [Ratio] 14.6 % 11.6-14.6 [facility] Immature granulocytes/100 WBC (Bld) 0.800 % 0.0-0.9 [facility] Comment on above: IG% - Immature Granu locytes (promyelocytes, myelocytes and metamyelocytes) > 1% indicates that a LEFT SHIFT is Present. MCH (RBC) [Entitic mass] 30.4 pg 27.0-32.0 [facility] Nucleated RBC/100 WBC (Bld) [Ratio] 0 % 0-5 [facility] MCHC Auto (RBC) [Mass/Vol]Or dered By: Hector Kerns on 11-13-2023 MCHC (RBC) [Mass/Vol] 35.4 g/dL 32-36 [facility] No Panel InformationOrdered By: Hector Kerns on 11-13-2023 D-Dimer Quantitative (PE/DVT) 0.67 FEU/ug/m 0.27-0.49 [facility] Comment on above: D-Dimer ELEVATED (>0 .49): Additional studies and clinicalassessments are indicated to conclude diagnosis of:Deep Vein Thrombosis (DVT) or Pulmonary Embolism (PE)CRITICAL VALUE VERIFIED. CALLED TO [id number] Melissa Castellanos.RESULTS READ BACK BY SAME . Estimated GFR (MDRD) Amer 74 mL/min >60 [facility] Comment on above: GFR Calc Estimated GFR (MDRD) Non-Af Amer 62 mL/min >60 [facility] Comment on above: Non- GFR Calc Platelets bldOrdered By: Narciso Kerns on 11-13-2023 Platelets (Bld) [#/Vol] 227 10*3/uL 150-450 [facility] Serum or plasma calcium cher urement (mass/volume)Ordered By: Hector Kerns on 11-13-2023 Calcium [Mass/Vol] 9.4 mg/dL 8.5-10.1 [facility] Serum or plasma creatinine m easurement (mass/volume)Ordered By: Hector Kerns on 11-13-2023 Creatinine [Mass/Vol] 0.93 mg/dL 0.55-1.02 [facility] Comment on above: The validity of the calculated GFR & GFRAA in patients over 70 years has not been determined. Clinical correlation is essential. Serum or plasma urea nitroge n measurement (mass/volume)Ordered By: Hector Kerns on 11-13-2023 Urea nitrogen [Mass/Vol] 15 mg/dL 7-18 [facility] Thin prep Papanicolaou smear with manual screeningOrdered By: Hector Kerns on 11-13-2023 Thin prep Papanicolaou smear with manual screening 4 5-15 [facility] CNDSon 11-08-2023 CNDS HNO ID: [id number] Author: Juan Pagan MD Service: Hospital Medicine Author Type: Physician Type: Discharge Summary Filed: 11/08/2023 5:57 PM Note Text: DISCHARGE SUMMARY PATIENT NAME: Florecita Healy ADMISSION DATE: 11/06/2023 DISCHARGE DATE: 11/08/2023 ATTENDING PHYSICIAN: No att. providers found Code Status: Prior PCP: Tu Canela MD Highest Readmission Risk Score: 13 The 30 day readmissions risk score is derived from an internally validated risk model which evaluates patient level characteristics, utilization history, medication orders and lab results up until the day of discharge. Patients with a score of 40 or above are considered highest risk for readmission. Specific patient level drivers will be listed at the bottom of the summary. TRANSITIONS OF CARE CRITICAL ISSUES: [place]UGA MEDICATION CHANGES: Coreg, hydralazine as needed LAB MONITORING NEEDED: Not applicable IMAGING FOLLOW-UP: Not applicable LABS AND PROCEDURES PENDING AT DISCHARGE: FOLLOW UP: Patient will need to follow-up with primary care physician soon after discharge from the hospital. REASON FOR HOSPITALIZATION: Generalized malaise, flulike symptoms PRINCIPAL DIAGNOSIS: COVID-positive, hypertension SECONDARY DIAGNOSIS: Principal Problem: COVID-19 (POA: Yes) Resolved Problems: * No resolved hospital problems. * HOSPITAL COURSE: Florecita Healy is a 83 year old female with PMHx as listed below who presented to the ED with flu like symptoms x 7 days. Patient was admitted to the hospital for further treatment and evaluation. In the ED patient tested positive for COVID-19. Was started on empiric therapy. As patient symptoms began approximately 8 days ago was outside window for remdesivir. As patient was not hypoxic requiring supplemental oxygen was not started on steroid therapy. Patient showed incremental improvement on IV fluids and was cleared by ID for discharge. During patient's hospitalization was also noted to be extremely hypertensive. Initial blood pressure 190s-200s. Patient was started on further medical therapy for resistant hypertension. Patient will be discharged on Coreg 6.25 twice daily, lisinopril 40 mg daily, amlodipine 10 mg daily and hydralazine 100 mg 3 times daily to be taken if systolic blood pressure greater than 140. Patient to check blood pressure at home 3 times daily prior to taking medications. If patient notes elevated blood pressure should inform primary care physician. Patient's hospital course and need for follow-up were explained to patient who is in understanding. Patient will need to follow-up with primary care physician soon after discharge from the hospital. OPERATIONS/PROCEDURE DURING THIS HOSPITALIZATION: * No surgery found * CONSULTS DURING HOSPITALIZATION: Treatment Team: Primary Service: 3, [facility] Consulting: Rc Rodriguez MD Orders Placed This Encounter PHYSICIAN CONSULT Follow-Up Appointment PATIENT CONDITION AT DISCHARGE: Stable ADVANCE CARE PLANNING DISCUSSION (if applicable): N/A DISCHARGE DISPOSITION: Home with Self Care Physical Exam Performed Constitutional: In no apparent [...] normal. Follows commands Psychiatric: Calm, cooperative, appropriate WOUND/SURGICAL SITE CARE: None SUPPLIES OR EQUIPMENT: None DIET: Resume pre-hospital diet ACTIVITY AND EXERCISE: Limited to: As tolerated ADDITIONAL INFORMATION: None FOLLOW UP APPOINTMENTS: Future Appointments Date Time Provider Department Center 11/15/2023 9:20 AM Aneta Brown PA-C [facility] 01/28/2024 10:00 AM Rosie Syed, LIABILITY CLAIMS EXAMINER.[facility] 05/05/2024 10:10 AM SCREEN MAMMO [facility] 05/07/2024 10:00 AM Nevin Fajardo, LIABILITY CLAIMS EXAMINER.[place] [facility] [place] ALLERGIES Allergen Reactions Animal Dander Intolerance Darvocet A500 [Prop* Mental Status Change Dust Other: See Comments Grass Pollen Other: See Comments Mold Other: See Comments Soma [Carisoprodol] Swelling, Itching Trees Other: See Comments DISCHARGE MEDICATION: Medication List START taking these medications Blood Pressure Test Kit-Medium Kit Use as directed for blood pressure monitoring carvedilol 6.25 mg tabl (more content not included)... Normal [facility] CONSULT PROGon 11-08-2023 CONSULT PROG HNO ID: [id number] Author: Rc Rodriguez MD Service: Infectious Disease Author Type: Physician Type: Consult Progress Note Filed: 11/08/2023 11:02 PM Note Text: INFECTIOUS DISEASE PROGRESS NOTE Patient Name: Florecita Healy INTERVAL HISTORY: No new complaints. Feels ok. Sats remain ok on RA. ROS checked in details. All qs answered. Patient Active Hospital Problem List: COVID-19 (11/06/2023) ASSESSMENT: COVID-19 Dehydration 2/2 diarrhea - Presented with flu like symptoms x 7 days, CXR WNL, no oxygen requirement - COVID vaccinated, boosted HTN RLS Hypothyroidism RECOMMENDATIONS: Monitor off COVID therapies, out of therapeutic window for Remdesivir and starting to feel improved today Low threshold to start Decadron with hypoxia, if SpO2 levels <94% Check baseline acute phase reactants Monitor off abx, Procal low, CXR normal Monitor O2, temps + counts Fluid resuscitation per primary Check blood cx w fevers MEDICATIONS: reviewed. PHYSICAL EXAM: Vital signs: BP 144/66 Pulse 71 Temp 36.4 ?C (97.5 ?F) (Temporal) Resp 16 Ht 165.1 cm (5' 5) Wt 70.7 kg (155 lb 13.8 oz) SpO2 95% BMI 25.94 kg/m? Temp (24hrs), Av.4 ?C (97.5 ?F), Min:36.2 ?C (97.2 ?F), Max:36.6 ?C (97.9 ?F) General: alert, oriented, NAD Lungs: bilaterally clear to auscultation Heart: regular rate and rhythm Abdomen: soft, non tender, non distended, BS+ Extremities: no edema No rashes No joint inflammation Neck supple Lines ok No CVAT Labs: Recent Labs 11/07/23 0815 11/06/23 1425 WBC 2.22* 2.43* HB 11.3* 12.2 PLT 103* 109* NA 143 138 K 4.4 3.3* CO2 26 22 BUN 17 19 CREAT 0.80 0.77 AST 22 18 ALT 18 13 TBILI 0.4 0.5 ALKPHOS 81 98 CRP 1.7* -- Microbiology data: reviewed Imaging data: reviewed Rc Rodriguez MD Pager: Date of service: 11/08/2023 Time of service: 12:00 PM This note is not final until Authenticated by responsible provider. [facility] NURSING PROGon 11-08-2023 NURSING PROG HNO ID: [id number] Author: Christiane Gilbert RN Service: ? Author Type: Registered Nurse Type: Nursing Progress Note Filed: 11/08/2023 3:40 PM Note Text: Educated patient on discharge and Hydralazine. She is going to pickle processor her prescriptions and one of them is a new BP machine so she can check her BP at home. If SBP >140 she is to take her Hydralazine. Patient understood why she was kept for monitoring her BP and will continue to monitor at home as instructed per discharge papers that was read to her. [facility] ALLIED HEALTHon 11-07-2023 ALLIED HEALTH HNO ID: [id number] Author: Angie Jauregui RN Service: Infection Prevention Author Type: Registered Nurse Type: Allied Health Filed: 11/07/2023 11:44 AM Note Text: ISOLATION NOTE Admission Date: 11/06/2023 Type of Isolation Recommended: Contact and Droplet Precautions Plus Eyewear (Cranberry Isolation Sign) Indication: COVID-19 Maintain Contact/Droplet and Eyewear isolation signage Remain in private room or cohort when deemed appropriate Don an N95 (or PAPR) prior to entering the patient room Avoid entering room during aerosol generating procedure when possible Restrict room access to essential personnel only Contact Infection Prevention prior to discontinuing precautions when criteria are met Limit transport and movement of the patient to medically necessary purposes Date Isolation Initiated: 11/06/2023 Anticipated Duration of Isolation: In consultation with Infection Prevention Type and Date of Positive Test(s): Positive PCR 11/06/2023. SIGNATURE: Angie Jauregui RN PATIENT NAME: Florecita Healy DATE: November 07, 2023 TIME: 11:43 AM PAGER/CONTACT #: [phone] Infection Prevention after hours/weekend pager: Contact Nursing [employer] Siding [employer]ator [facility] CBC W Auto Differential pane l (Bld)on 11-07-2023 Basophils (Bld) [#/Vol] 10*3/uL Normal <0.11 [facility] Comment on above: Order Comment: Speci men Type: BLOOD SPECIMENOrdering Facility: [facility] Address: [address] [place] [address] Performed By: #### 5 7021-8 ####[facility] LABORATORYCLIA [id number] [place] [address] [place] Basophils/100 WBC (Bld) 0.5 % Normal [facility] Comment on above: Order Comment: Speci men Type: BLOOD SPECIMENOrdering Facility: [facility] Address: [address] [place] [address] Performed By: #### 5 7021-8 ####[facility] LABORATORYCLIA [id number] [place] [address] [place] Differential cell count method Nom (Bld) Auto Normal [facility] Comment on above: Order Comment: Speci men Type: BLOOD SPECIMENOrdering Facility: [facility] Address: [address] [place] [address] Performed By: #### 5 7021-8 ####[facility] LABORATORYCLIA [id number] [place] [address] [place] Eosinophils (Bld) [#/Vol] 0.03 10*3/uL Normal <0.46 [facility] Comment on above: Order Comment: Speci men Type: BLOOD SPECIMENOrdering Facility: [facility] Address: [address] [place] [address] Performed By: #### 5 7021-8 ####[facility] LABORATORYCLIA [id number] [place] [address] [place] Eosinophils/100 WBC (Bld) 1.4 % Normal [facility] Comment on above: Order Comment: Speci men Type: BLOOD SPECIMENOrdering Facility: [facility] Address: [address] [place] [address] Performed By: #### 5 7021-8 ####[facility] LABORATORYCLIA [id number] [place] [address] [place] Erythrocyte distribution width (RBC) [Ratio] 14.4 % Normal 11.5-15.0 [facility] Comment on above: Order Comment: Speci men Type: BLOOD SPECIMENOrdering Facility: [facility] Address: [address] [place] [address] Performed By: #### 5 7021-8 ####[facility] LABORATORYCLIA [id number] [place] [address] [place] Hematocrit (Bld) [Volume fraction] 35.3 % Low 36.0-46.0 [facility] Comment on above: Order Comment: Speci men Type: BLOOD SPECIMENOrdering Facility: [facility] Address: [address] [place] [address] Performed By: #### 5 7021-8 ####[facility] LABORATORYCLIA [id number] [place] [address] [place] Hemoglobin (Bld) [Mass/Vol] 11.3 g/dL Low 11.5-15.5 [facility] Comment on above: Order Comment: Speci men Type: BLOOD SPECIMENOrdering Facility: [facility] Address: [address] [place] [address] Performed By: #### 5 7021-8 ####[facility] LABORATORYCLIA [id number] [place] [address] [place] Immature granulocytes (Bld) [#/Vol] 0.03 10*3/uL Normal <0.10 [facility] Comment on above: Order Comment: Speci men Type: BLOOD SPECIMENOrdering Facility: [facility] Address: [address] [place] [address] Performed By: #### 5 7021-8 ####[facility] LABORATORYCLIA [id number] [place] [address] [place] Immature granulocytes/100 WBC (Bld) 1.4 % Normal [facility] Comment on above: Order Comment: Speci men Type: BLOOD SPECIMENOrdering Facility: [facility] Address: [address] [place] [address] Performed By: #### 5 7021-8 ####[facility] LABORATORYCLIA [id number] [place] [address] [place] Lymphocytes (Bld) [#/Vol] 0.86 10*3/uL Low 1.00-4.00 [facility] Comment on above: Order Comment: Speci men Type: BLOOD SPECIMENOrdering Facility: [facility] Address: [address] [place] [address] Performed By: #### 5 7021-8 ####[facility] LABORATORYCLIA [id number] [address] Lymphocytes/100 WBC (Bld) 38.7 % Normal [facility] Comment on above: Order Comment: Speci men Type: BLOOD SPECIMENOrdering Facility: [facility] Address: [address] [place] [address] Performed By: #### 5 7021-8 ####[facility] LABORATORYCLIA [id number] [address] [place] MCH (RBC) [Entitic mass] 27.0 pg Normal 26.0-34.0 [facility] Comment on above: Order Comment: Speci men Type: BLOOD SPECIMENOrdering Facility: [facility] Address: [address] [place] [address] Performed By: #### 5 7021-8 ####[facility] LABORATORYCLIA [id number] [address] [place] MCHC (RBC) [Mass/Vol] 32.0 g/dL Normal 30.5-36.[address] [facility] Comment on above: Order Comment: Speci men Type: BLOOD SPECIMENOrdering Facility: [facility] Address: [address] [place] [address] Performed By: #### 5 7021-8 ####[facility] LABORATORYCLIA [id number] [address] [place] MCV (RBC) [Entitic vol] 84.4 fL Normal 80.0-100.0 [facility] Comment on above: Order Comment: Speci men Type: BLOOD SPECIMENOrdering Facility: [facility] Address: [address] [place] [address] Performed By: #### 5 7021-8 ####[facility] LABORATORYCLIA [id number] [address] [place] Monocytes (Bld) [#/Vol] 0.47 10*3/uL Normal <0.87 [facility] Comment on above: Order Comment: Speci men Type: BLOOD SPECIMENOrdering Facility: [facility] Address: [address] [place] [address] Performed By: #### 5 7021-8 ####[facility] LABORATORYCLIA [id number] [address] [place] Monocytes/100 WBC (Bld) 21.2 % Normal [facility] Comment on above: Order Comment: Speci men Type: BLOOD SPECIMENOrdering Facility: [facility] Address: [address] [place] [address] Performed By: #### 5 7021-8 ####[facility] LABORATORYCLIA [id number] [place] [address] [place] Neutrophils (Bld) [#/Vol] 0.82 10*3/uL Low 1.45-7.50 [facility] Comment on above: Order Comment: Speci men Type: BLOOD SPECIMENOrdering Facility: [facility] Address: [address] [place] [address] Performed By: #### 5 7021-8 ####[facility] LABORATORYCLIA [id number] [address] [place] Neutrophils/100 WBC (Bld) 36.8 % Normal [facility] Comment on above: Order Comment: Speci men Type: BLOOD SPECIMENOrdering Facility: [facility] Address: [address] [place] [address] Performed By: #### 5 7021-8 ####[facility] LABORATORYCLIA [id number] [place] [address] [place] Nucleated RBC (Bld) [#/Vol] 10*3/uL Normal <0.01 [facility] Comment on above: Order Comment: Speci men Type: BLOOD SPECIMENOrdering Facility: [facility] Address: [address] [place] [address] Performed By: #### 5 7021-8 ####[facility] LABORATORYCLIA [id number] [place] [address] [place] Nucleated RBC/100 WBC (Bld) [Ratio] 0.0 /100 WBC Normal [facility] Comment on above: Order Comment: Speci men Type: BLOOD SPECIMENOrdering Facility: [facility] Address: [address] [place] [address] Performed By: #### 5 7021-8 ####[facility] LABORATORYCLIA [id number] [place] [address] [place] Platelet mean volume (Bld) [Entitic vol] 10.6 fL Normal 9.0-12.7 [facility] Comment on above: Order Comment: Speci men Type: BLOOD SPECIMENOrdering Facility: [facility] Address: [address] [facility] [place] [address] Performed By: #### 5 7021-8 ####[facility] LABORATORYCLIA [id number] [place] [address] [place] Platelets (Bld) [#/Vol] 103 10*3/uL Low 150-400 [facility] Comment on above: Order Comment: Speci men Type: BLOOD SPECIMENOrdering Facility: [facility] Address: [place] [address] Performed By: #### 5 7021-8 ####[facility] LABORATORYCLIA [id number] [place] [address] [place] RBC (Bld) [#/Vol] 4.18 10*6/uL Normal 3.90-5.20 [facility] Comment on above: Order Comment: Speci men Type: BLOOD SPECIMENOrdering Facility: [facility] Address: [place] [address] Performed By: #### 5 7021-8 ####[facility] LABORATORYCLIA [id number] [place] [id number] [place] WBC (Bld) [#/Vol] 2.22 10*3/uL Low 3.70-11.00 [facility] Comment on above: Order Comment: Speci men Type: BLOOD SPECIMENOrdering Facility: [facility] Address: [place] [address] Performed By: #### 5 7021-8 ####[facility] LABORATORYCLIA [id number] [address] [place] CONSULTon 11-07-2023 CONSULT HNO ID: [id number] Author: Rc Rodriguez MD Service: Infectious Disease Author Type: Physician Type: Consults Filed: 11/07/2023 8:49 PM Note Text: CONSULT: INFECTIOUS DISEASE SERVICE SERVICE DATE: 11/07/2023 SERVICE TIME: 12:22 PM REASON FOR CONSULT: COVID, ?rx rem REQUESTING PHYSICIAN: [facility] PHYSICIAN: Tu Canela MD Subjective Ms. Healy is a 83 year old female [...] home. She is COVID vaccinated and boosted. In the ED, her BP was slightly on the higher side, other vitals WNL, saturating well on RA. Labs significant for K 3.3, WBC 2.43 (ANC 1290). COVID positive. CXR WNL. Procal 0.09. ID service consulted for ?COVID mgmt. ROS w patient. Stats today she is starting to feel better. Resting on room air, SpO2 95-97% on exam. PAST MEDICAL HISTORY Diagnosis Date Abnormal ultrasound of breast 12/02/15 Left Breast cancer of upper-outer quadrant of left female breast (HCC) Chronic obstructive pulmonary disease (COPD) (HCC) Chronic pain 06/03/2012 sees pain management. Diarrhea 11/06/2022 Hyperlipidemia 06/03/2012 Hypertension 06/03/2012 Nausea AND vomiting 11/06/2022 Osteopenia Psoriasis Pulmonary nodule Dr. Dawn Sepsis ([facility]) 11/05/2022 Snoring PAST SURGICAL HISTORY Procedure Laterality [...] Smoking status: Every Day Packs/day: 1.00 Years: 40.00 Additional pack years: 0.00 Total pack years: 40.00 Types: Cigarettes Smokeless tobacco: Never Vaping Use Vaping Use: Never used Substance Use Topics Alcohol use: No Drug use: No lisinopril (ZESTRIL) 40 mg tablet, Take 1 tablet by mouth once daily., Disp: 90 tablet, Rfl: 1, 11/06/2023 baclofen 10 mg tablet, Take 1 tablet by mouth twice daily as needed. (Patient taking differently: Take 10 mg by mouth daily at bedtime.), Disp: 90 tablet, Rfl: 1, 11/06/2023 amLODIPine (NORVASC) 10 mg tablet, Take 1 tablet by mouth once daily., Disp: 90 tablet, Rfl: 1, 11/06/2023 Biotin 10 mg tab, Take 1 tablet by mouth once daily., Disp: , Rfl: , 11/06/2023 cyanocobalamin (VITAMIN B-12) 100 mcg tab, Take 100 mcg by mouth once daily., Disp: , Rfl: , 11/06/2023 levothyroxine (SYNTHROID) 25 mcg tablet, Take 1 tablet by mouth once daily. Except 2 tabs by mouth every Sunday and Sunday, Disp: 114 tablet, Rfl: 3, 11/06/2023 acetaminophen (TYLENOL) 325 mg tablet, Take 2 tablets by mouth every 4 hours as needed for pain., Disp: , Rfl: , 11/06/2023 pregabalin (LYRICA) 75 mg capsule, Take 75 mg by mouth daily at bedtime., Disp: , Rfl: , 11/06/2023 cholecalciferol, vitamin D3, (VITAMIN D3 ORAL), Take 2,000 Units by mouth once daily., Disp: , Rfl: , 11/06/2023 alpha tocopheryl acetate (VITAMIN E) 400 unit capsule, Take 400 Units by mouth once daily., Disp: , Rfl: , 11/06/2023 diphenhydrAMINE-Acetam inophen 25-500 mg tab, Take 2 tablets by mouth at bedtime as needed., Disp: , Rfl: , 11/06/2023 betamethasone dipropionate, augmented (DIPROLENE) 0.05 % cream, Apply to affected area once daily as needed., Disp: , Rfl: , 11/05/2023 Current Facility-Administered Medications Medication Dose Route Frequency enoxaparin 40 mg injection (LOVENOX) 40 mg SUBCUTANEOUS q 24 HR NaCl 0.9% iv flush bag 20 mL INTRAVENOUS PRN pregabalin 75 mg cap(s) (more content not included)... Normal [facility] CRP SerPl-ncon 11-07-2023 CRP [Mass/Vol] 1.7 mg/dL High <0.9 [facility] Comment on above: Order Comment: Specscout mejía Type: BLOOD SPECIMENOrdering Facility: [facility] Address: [address] [place] [address] Performed By: #### 1 988-5, 98277-4, ####[facility] LABORATORYCLIA [id number] [place] [address] [facility] [place] Comprehensive metabolic 2000 panelon 11-07-2023 Albumin [Mass/Vol] 3.7 g/dL Low 3.9-4.9 [facility] Comment on above: Order Comment: Speci alfonzo Type: BLOOD SPECIMENOrdering Facility: [facility] Address: [address] [place] [address] Performed By: #### 1 988-5, 05632-7, ####[facility] LABORATORYCLIA [id number] [place] [address] [place] ALP [Catalytic activity/Vol] 81 U/L Normal 34-123 [facility] Comment on above: Order Comment: Speci men Type: BLOOD SPECIMENOrdering Facility: [facility] Address: [address] [place] [address] Performed By: #### 1 988-5, , ####[facility] LABORATORYCLIA [id number] [place] [address] [place] ALT [Catalytic activity/Vol] 18 U/L Normal 7-38 [facility] Comment on above: Order Comment: Speci men Type: BLOOD SPECIMENOrdering Facility: [facility] Address: [address] [place] [address] Performed By: #### 1 988-5, , ####[facility] LABORATORYCLIA [id number] [place] [address] [place] Anion gap [Moles/Vol] 9 mmol/L Normal 9-[address] [facility] Comment on above: Order Comment: Speci men Type: BLOOD SPECIMENOrdering Facility: [facility] Address: [address] [place] [address] Performed By: #### 1 988-5, , ####[facility] LABORATORYCLIA [id number] [address] [place] AST [Catalytic activity/Vol] 22 U/L Normal 13-35 [facility] Comment on above: Order Comment: Speci men Type: BLOOD SPECIMENOrdering Facility: [facility] Address: [address] [place] [address] Performed By: #### 1 988-5, , ####[facility] LABORATORYCLIA [id number] [place] [id number] [place] Bilirubin [Mass/Vol] 0.4 mg/dL Normal 0.2-1.3 [facility] Comment on above: Order Comment: Speci men Type: BLOOD SPECIMENOrdering Facility: [facility] Address: [address] [place] [address] Performed By: #### 1 988-5, 46423-5, ####[facility] LABORATORYCLIA [id number] [address] STATES OF [facility] Calcium [Mass/Vol] 8.5 mg/dL Normal 8.5-10.2 [facility] Comment on above: Order Comment: Speci men Type: BLOOD SPECIMENOrdering Facility: [facility] Address: [address] [place] [address] Performed By: #### 1 988-5, 56791-6, ####[facility] LABORATORYCLIA [id number] [place] [address] [place] Chloride [Moles/Vol] 108 mmol/L High 97-105 [facility] Comment on above: Order Comment: Speci men Type: BLOOD SPECIMENOrdering Facility: [facility] Address: [address] [place] [address] Performed By: #### 1 988-5, , ####[facility] LABORATORYCLIA [id number] [address] [place] CO2 [Moles/Vol] 26 mmol/L Normal 22-30 [facility] Comment on above: Order Comment: Speci men Type: BLOOD SPECIMENOrdering Facility: [facility] Address: [address] [place] [address] Performed By: #### 1 988-5, , ####[facility] LABORATORYCLIA [id number] [address] [place] Creatinine [Mass/Vol] 0.80 mg/dL Normal 0.58-0.[address] [facility] Comment on above: Order Comment: Speci men Type: BLOOD SPECIMENOrdering Facility: [facility] Address: [address] [place] [address] Performed By: #### 1 988-5, , ####[facility] LABORATORYCLIA [id number] [address] Creatinine and Glomerular filtration rate.predicted panel (S/P/Bld) 74 mL/min/1.73m??? Normal >=60 [facility] Comment on above: Order Comment: Speci men Type: BLOOD SPECIMENOrdering Facility: [facility] Address: [address] [place] [address] Result Comment: Callie mated Glomerular Filtration Rate (eGFR) is calculated using the 2020 CKD-EPI creatinine equation. This equation utilizes serum creatinine, sex, and age as parameters. The creatinine assay has traceable calibration to isotope dilution-mass spectrometry. Refer to KDIGO guidelines for clinical interpretation. In patients with unstable renal function, e.g. those with acute kidney injury, the eGFR may not accurately reflect actual GFR. Performed By: #### 1 988-5, 49506-2, ####[facility] LABORATORYCLIA [id number] [place] [id number] [place] Glucose [Mass/Vol] 78 mg/dL Normal 74-99 [facility] Comment on above: Order Comment: Laura mejía Type: BLOOD SPECIMENOrdering Facility: [facility] Address: [address] [place] [address] Result Comment: The [place] Diabetes Association (ADA) provides guidance for cutoff values for fasting glucose and random glucose. The ADA defines fasting as no caloric intake for at least 8 hours. Fasting plasma glucose results between 100 to 125 mg/dL indicate increased risk for diabetes (prediabetes). Fasting plasma glucose results greater than or equal to 126 mg/dL meet the criteria for diagnosis of diabetes. In the absence of unequivocal hyperglycemia, results should be confirmed by repeat testing. In a patient with classic symptoms of hyperglycemia or hyperglycemic crisis, random plasma glucose results greater than or equal to 200 mg/dL meet the criteria for diagnosis of diabetes. Reference: Standards of Medical Care in Diabetes 2016, [place] Diabetes Association. Diabetes Care. 2016.39(Suppl 1). Performed By: #### 1 988-5, 80661-9, 61096-0 ####RUTLEDGE LABORATORYCLIA [id number] [place] [address] [place] Potassium [Moles/Vol] 4.4 mmol/L Normal 3.7-5.[address] [facility] Comment on above: Order Comment: Laura mejía Type: BLOOD SPECIMENOrdering Facility: [facility] Address: [address] [place] [address] Performed By: #### 1 988-5, 28901-9, ####[facility] LABORATORYCLIA [id number] [address] [place] Protein [Mass/Vol] 6.3 g/dL Normal 6.3-8.0 [facility] Comment on above: Order Comment: Speci men Type: BLOOD SPECIMENOrdering Facility: [facility] Address: [address] [place] [address] Performed By: #### 1 988-5, 63115-8, 66374-4 ####AGARWAL LABORATORYCLIA [id number] [address] Sodium [Moles/Vol] 143 mmol/L Normal 136-144 [facility] Comment on above: Order Comment: Speci men Type: BLOOD SPECIMENOrdering Facility: [facility] Address: [address] [place] [address] Performed By: #### 1 988-5, 44057-0, ####[facility]ARWAL LABORATORYCLIA [id number] [address] Urea nitrogen [Mass/Vol] 17 mg/dL Normal 7-21 [facility] Comment on above: Order Comment: Speci men Type: BLOOD SPECIMENOrdering Facility: [facility] Address: [address] [place] [address] Performed By: #### 1 988-5, 44515-0, 25259-2 ####AGARWAL LABORATORYCLIA [id number] [address] [place] D dimer FEU PPP-mCncon 11-07 Fibrin D-dimer FEU (PPP) [Mass/Vol] 500 ng/mL FEU High <500 [facility] Comment on above: Order Comment: Speci men Type: BLOOD SPECIMENOrdering Facility: [facility] Address: [address] [place] [address] Performed By: #### 4 8065-7 ####AG[facility]WAL LABORATORYCLIA [id number] [address] [place] ED NOTEon 11-07-2023 ED NOTE HNO ID: [id number] Author: Tika Ashford RN Service: ? Author Type: Registered Nurse Type: ED Notes Filed: 11/07/2023 3:55 AM Note Text: Report called to Brooke ERIC [facility] ED NOTE HNO ID: [id number] Author: Mariusz Monson RN Service: ? Author Type: Registered Nurse Type: ED Notes Filed: 11/07/2023 1:18 AM Note Text: Report to Tika ERIC [facility] Fibrin D-dimer FEU (PPP) [Ma ss/Vol]on 11-07-2023 D DIMER AGE-RELATED CUTOFF 810 ng/mL FEU [facility] Comment on above: Order Comment: Speci men Type: BLOOD SPECIMENOrdering Facility: [facility] Address: [address] [place] [address] Performed By: #### 4 8065-7 ####RUTLEDGE LABORATORYCLIA [id number] [place] [address] [place] Magnesium SerPl-mCncon 11-07 Magnesium [Mass/Vol] 2.2 mg/dL Normal 1.7-2.3 [facility] Comment on above: Order Comment: Speci men Type: BLOOD SPECIMENOrdering Facility: [facility] Address: [address] [place] [address] Performed By: #### 1 988-5, 22118-2, 72273-4 ####RUTLEDGE LABORATORYCLIA [id number] [place] [address] [place] NURSING PROGon 11-07-2023 NURSING PROG HNO ID: [id number] Author: Christiane Gilbert RN Service: ? Author Type: Registered Nurse Type: Nursing Progress Note Filed: 11/07/2023 9:17 AM Note Text: Nursing Progress Note [employer] Assessment Note Patient Name: Florecita Healy Patient Location: [facility] [facility] ____ Patient Vitals for the past 4 hrs: BP Temp Temp src Pulse Resp SpO2 Height Weight 11/07/23 0914 ? 165.1 cm (5' 5) ? 11/07/23 0858 189/84 ? ? (!) 58 ? 98 % ? ? 11/07/23 0707 (!) 205/91 36.7 ?C (98 ?F) Temporal 75 18 94 % ? 70.7 kg (155 lb 13.8 oz) Status Change Related to: Pulmonary Issues (See Nursing Clinical Assessment For Details) The Following People Were Notified: Caregiver/Provider: See Documentation Related to: Additional Comments : This note was completed by: Christiane Gilbert RN [facility] STREPTOCOCCUS PNEUMONIAE AGo n 11-07-2023 STREPTOCOCCUS PNEUMONIAE AG STREP PNEUMO AG RESULT: Negative for Streptococcus pneumoniae antigen. Presumptive negative for pneumococcal pneumonia, suggesting no current or recent pneumococcal infection. Infection due to S.pneumoniae cannot be ruled out since the antigen present in the sample may be below the detection limit of the test. [facility] Comment on above: Performed By: #### S PNAG ####[facility] LABCLIA [id number] [address] OF [facility] ALLIED HEALTHon 11-06-2023 ALLIED HEALTH HNO ID: [id number] Author: Kami Mitchell [place] Service: Radiology Author Type: Technologist Type: Allied Health Filed: 11/06/2023 2:36 PM Note Text: Radiology Service Progress Note PATIENT NAME: Florecita Healy DATE OF SERVICE: November 06, 2023 TIME: 2:35 PM PATIENT IDENTITY VERIFICATION COMPLETED USING TWO (2) IDENTIFIERS: Name and Date of confirmed by patient verbally. FALL SCREENING: Has the patient had 2 falls in the last year or 1 fall with injury or currently using an Ambulatory Assistive Device (Walker, Cane, Wheelchair, Crutches, etc.)? Emergency Room Patient: Screened in ED PATIENT GENDER DATA: Female. status: : No status: NO. PATIENT RELEVANT IMPLANT DATA REVIEWED: Not Applicable RADIOLOGY DEPARTMENT: General X-ray: Exam(s) Completed: Chest X-Ray PERIPHERAL IV DATA: Not applicable SIGNED BY: CURLY Conway November 06, 2023 2:35 PM [facility] CBC W Auto Differential pane l (Bld)on 11-06-2023 Basophils (Bld) [#/Vol] 0.00 10*3/uL Normal <0.11 [facility] Comment on above: Order Comment: Speci men Type: BLOOD SPECIMENOrdering Facility: [facility] Address: [address] [place] [address] Performed By: #### 5 7021-8 ####[facility]WAL LABORATORYCLIA [id number] [place] [address] [place] Basophils/100 WBC (Bld) 0.0 % Normal [facility] Comment on above: Order Comment: Speci men Type: BLOOD SPECIMENOrdering Facility: [facility] Address: [address] [place] [address] Performed By: #### 5 7021-8 ####[facility] LABORATORYCLIA [id number] [address] [place] Differential cell count method Nom (Bld) Manual Normal [facility] Comment on above: Order Comment: Speci men Type: BLOOD SPECIMENOrdering Facility: [facility] Address: [address] [place] [address] Performed By: #### 5 7021-8 ####[facility]AL LABORATORYCLIA [id number] [place] [address] [place] Eosinophils (Bld) [#/Vol] 0.00 10*3/uL Normal <0.46 [facility] Comment on above: Order Comment: Speci men Type: BLOOD SPECIMENOrdering Facility: [facility] Address: [address] [place] [address] Performed By: #### 5 7021-8 ####AG[facility] LABORATORYCLIA [id number] [place] [address] [place] Eosinophils/100 WBC (Bld) 0.0 % Normal [facility] Comment on above: Order Comment: Speci men Type: BLOOD SPECIMENOrdering Facility: [facility] Address: [address] [place] [address] Performed By: #### 5 7021-8 ####AGARWAL LABORATORYCLIA [id number] [place] [address] [place] Erythrocyte distribution width (RBC) [Ratio] 14.4 % Normal 11.5-15.0 [facility] Comment on above: Order Comment: Speci men Type: BLOOD SPECIMENOrdering Facility: [facility] Address: [address] [place] [address] Performed By: #### 5 7021-8 ####AGAR[facility]AL LABORATORYCLIA [id number] [address] [place] Hematocrit (Bld) [Volume fraction] 35.4 % Low 36.0-46.0 [facility] Comment on above: Order Comment: Speci men Type: BLOOD SPECIMENOrdering Facility: [facility] Address: [address] [place] [address] Performed By: #### 5 7021-8 ####AG[facility]AL LABORATORYCLIA [id number] [address] [place] Hemoglobin (Bld) [Mass/Vol] 12.2 g/dL Normal 11.5-15.5 [facility] Comment on above: Order Comment: Speci men Type: BLOOD SPECIMENOrdering Facility: [facility] Address: [address] [place] [address] Performed By: #### 5 7021-8 ####[facility] LABORATORYCLIA [id number] [address] [place] Lymphocytes (Bld) [#/Vol] 0.61 10*3/uL Low 1.00-4.00 [facility] Comment on above: Order Comment: Speci men Type: BLOOD SPECIMENOrdering Facility: [facility] Address: [address] [place] [address] Performed By: #### 5 7021-8 ####[facility] LABORATORYCLIA [id number] [address] [place] Lymphocytes/100 WBC (Bld) 25.0 % Normal [facility] Comment on above: Order Comment: Speci men Type: BLOOD SPECIMENOrdering Facility: [facility] Address: [address] [place] [address] Performed By: #### 5 7021-8 ####[facility] LABORATORYCLIA [id number] [address] MCH (RBC) [Entitic mass] 28.2 pg Normal 26.0-34.0 [facility] Comment on above: Order Comment: Speci men Type: BLOOD SPECIMENOrdering Facility: [facility] Address: [address] [place] [address] Performed By: #### 5 7021-8 ####[facility] LABORATORYCLIA [id number] [address] MCHC (RBC) [Mass/Vol] 34.5 g/dL Normal 30.5-36.[address] [facility] Comment on above: Order Comment: Speci men Type: BLOOD SPECIMENOrdering Facility: [facility] Address: [address] [place] [address] Performed By: #### 5 7021-8 ####[facility] LABORATORYCLIA [id number] [address] MCV (RBC) [Entitic vol] 81.9 fL Normal 80.0-100.0 [facility] Comment on above: Order Comment: Speci men Type: BLOOD SPECIMENOrdering Facility: [facility] Address: [address] [place] [address] Performed By: #### 5 7021-8 ####[facility] LABORATORYCLIA [id number] [address] Metamyelocytes/100 WBC (Bld) 2.0 % Normal [facility] Comment on above: Order Comment: Speci men Type: BLOOD SPECIMENOrdering Facility: [facility] Address: [address] [place] [address] Performed By: #### 5 7021-8 ####[facility] LABORATORYCLIA [id number] [address] Monocytes (Bld) [#/Vol] 0.49 10*3/uL Normal <0.87 [facility] Comment on above: Order Comment: Speci men Type: BLOOD SPECIMENOrdering Facility: [facility] Address: [address] [place] [address] Performed By: #### 5 7021-8 ####[facility] LABORATORYCLIA [id number] [address] Monocytes/100 WBC (Bld) 20.0 % Normal [facility] Comment on above: Order Comment: Speci men Type: BLOOD SPECIMENOrdering Facility: [facility] Address: [address] [place] [address] Performed By: #### 5 7021-8 ####AG[facility] LABORATORYCLIA [id number] [place] [address] [place] Neutrophils (Bld) [#/Vol] 1.29 10*3/uL Low 1.45-7.50 [facility] Comment on above: Order Comment: Speci men Type: BLOOD SPECIMENOrdering Facility: [facility] Address: [address] [place] [address] Performed By: #### 5 7021-8 ####AGAR[facility] LABORATORYCLIA [id number] [address] Neutrophils/100 WBC (Bld) 53.0 % Normal [facility] Comment on above: Order Comment: Speci men Type: BLOOD SPECIMENOrdering Facility: [facility] Address: [address] [place] [address] Performed By: #### 5 7021-8 ####AGARW[facility] LABORATORYCLIA [id number] [place] [address] [place] Nucleated RBC (Bld) [#/Vol] 10*3/uL Normal <0.01 [facility] Comment on above: Order Comment: Speci men Type: BLOOD SPECIMENOrdering Facility: [facility] Address: [address] [place] [address] Performed By: #### 5 7021-8 ####AG[facility] LABORATORYCLIA [id number] [place] [address] [place] Nucleated RBC/100 WBC (Bld) [Ratio] 0.0 /100 WBC Normal [facility] Comment on above: Order Comment: Speci men Type: BLOOD SPECIMENOrdering Facility: [facility] Address: [address] [place] [address] Performed By: #### 5 7021-8 ####[facility] LABORATORYCLIA [id number] [address] [address] Platelet mean volume (Bld) [Entitic vol] 10.0 fL Normal 9.0-12.7 [facility] Comment on above: Order Comment: Speci men Type: BLOOD SPECIMENOrdering Facility: [facility] Address: [address] [place] [address] Performed By: #### 5 7021-8 ####[facility] LABORATORYCLIA [id number] [address] [place] Platelets (Bld) [#/Vol] 109 10*3/uL Low 150-400 [facility] Comment on above: Order Comment: Speci men Type: BLOOD SPECIMENOrdering Facility: [facility] Address: [address] [place] [address] Performed By: #### 5 7021-8 ####[facility] LABORATORYCLIA [id number] [address] Platelets Estimate (Bld) [#/Vol] Decreased Normal [facility] Comment on above: Order Comment: Speci men Type: BLOOD SPECIMENOrdering Facility: [facility] Address: [address] [place] [address] Performed By: #### 5 7021-8 ####[facility] LABORATORYCLIA [id number] [address] [place] RBC (Bld) [#/Vol] 4.32 10*6/uL Normal 3.90-5.20 [facility] Comment on above: Order Comment: Speci men Type: BLOOD SPECIMENOrdering Facility: [facility] Address: [address] [place] [address] Performed By: #### 5 7021-8 ####[facility] LABORATORYCLIA [id number] [address] RED CELL MORPH Reviewed: unremarkable Normal [facility] Comment on above: Order Comment: Speci men Type: BLOOD SPECIMENOrdering Facility: [facility] Address: [address] [place] [address] Performed By: #### 5 7021-8 ####[facility] LABORATORYCLIA [id number] [address] [place] WBC (Bld) [#/Vol] 2.43 10*3/uL Low 3.70-11.00 [facility] Comment on above: Order Comment: Speci men Type: BLOOD SPECIMENOrdering Facility: [facility] Address: [address] [place] [address] Performed By: #### 5 7021-8 ####AGAR[facility]AL LABORATORYCLIA [id number] [address] STATES [facility] WBC Left Shift Ql (Bld) Present Normal [facility] Comment on above: Order Comment: Speci men Type: BLOOD SPECIMENOrdering Facility: [facility] Address: [address] [place] [address] Performed By: #### 5 7021-8 ####[facility] LABORATORYCLIA [id number] [address] Comprehensive metabolic 2000 panelon 11-06-2023 Albumin [Mass/Vol] 3.9 g/dL Normal 3.9-4.9 [facility] Comment on above: Order Comment: Speci men Type: BLOOD SPECIMENOrdering Facility: [facility] Address: [address] [place] [address] Performed By: #### 3 3959-8, 95820-1 ####[facility] LABORATORYCLIA [id number] [address] [place] ALP [Catalytic activity/Vol] 98 U/L Normal 34-123 [facility] Comment on above: Order Comment: Speci men Type: BLOOD SPECIMENOrdering Facility: [facility] Address: [address] [place] [address] Performed By: #### 3 3959-8, 72113-7 ####[facility] LABORATORYCLIA [id number] [address] ALT [Catalytic activity/Vol] 13 U/L Normal 7-38 [facility] Comment on above: Order Comment: Speci men Type: BLOOD SPECIMENOrdering Facility: [facility] Address: [address] [place] [address] Performed By: #### 3 3959-8, 41381-6 ####[facility] LABORATORYCLIA [id number] [address] OF [facility] Anion gap [Moles/Vol] 12 mmol/L Normal 9-[address] [facility] Comment on above: Order Comment: Speci men Type: BLOOD SPECIMENOrdering Facility: [facility] Address: [address] [place] [address] Performed By: #### 3 3959-8, 67591-1 ####[facility] LABORATORYCLIA [id number] [address] [place] AST [Catalytic activity/Vol] 18 U/L Normal 13-35 [facility] Comment on above: Order Comment: Speci men Type: BLOOD SPECIMENOrdering Facility: [facility] Address: [address] [place] [address] Performed By: #### 3 3959-8, 38598-9 ####[facility] LABORATORYCLIA [id number] [address] STATES OF [facility] Bilirubin [Mass/Vol] 0.5 mg/dL Normal 0.2-1.3 [facility] Comment on above: Order Comment: Speci men Type: BLOOD SPECIMENOrdering Facility: [facility] Address: [address] [place] [address] Performed By: #### 3 3959-8, 44148-9 ####[facility] LABORATORYCLIA [id number] [address] Calcium [Mass/Vol] 8.9 mg/dL Normal 8.5-10.2 [facility] Comment on above: Order Comment: Speci men Type: BLOOD SPECIMENOrdering Facility: [facility] Address: [address] [place] [address] Performed By: #### 3 3959-8, 29083-7 ####[facility] LABORATORYCLIA [id number] [place] [address] [place] Chloride [Moles/Vol] 104 mmol/L Normal 97-105 [facility] Comment on above: Order Comment: Speci men Type: BLOOD SPECIMENOrdering Facility: [facility] Address: [address] [facility] [place] [address] Performed By: #### 3 3959-8, 12751-9 ####[facility] LABORATORYCLIA [id number] [place] [address] [place] CO2 [Moles/Vol] 22 mmol/L Normal 22-30 [facility] Comment on above: Order Comment: Speci men Type: BLOOD SPECIMENOrdering Facility: [facility] Address: [address] [place] [address] Performed By: #### 3 3959-8, 41282-2 ####[facility] LABORATORYCLIA [id number] [place] [address] [place] Creatinine [Mass/Vol] 0.77 mg/dL Normal 0.58-0.[address] [facility] Comment on above: Order Comment: Speci men Type: BLOOD SPECIMENOrdering Facility: [facility] Address: [address] [place] [address] Performed By: #### 3 3959-8, 69368-8 ####[facility] LABORATORYCLIA [id number] [address] Creatinine and Glomerular filtration rate.predicted panel (S/P/Bld) 78 mL/min/1.73m??? Normal >=60 [facility] Comment on above: Order Comment: Speci men Type: BLOOD SPECIMENOrdering Facility: [facility] Address: [address] [place] [address] Result Comment: Callie mated Glomerular Filtration Rate (eGFR) is calculated using the 2020 CKD-EPI creatinine equation. This equation utilizes serum creatinine, sex, and age as parameters. The creatinine assay has traceable calibration to isotope dilution-mass spectrometry. Refer to KDIGO guidelines for clinical interpretation. In patients with unstable renal function, e.g. those with acute kidney injury, the eGFR may not accurately reflect actual GFR. Performed By: #### 3 3959-8, 78327-2 ####[facility] LABORATORYCLIA [id number] [place] [id number] [place] Glucose [Mass/Vol] 132 mg/dL High 74-99 [facility] Comment on above: Order Comment: Rafaeli alfonzo Type: BLOOD SPECIMENOrdering Facility: [facility] Address: [address] [place] [address] Result Comment: The [place] Diabetes Association (ADA) provides guidance for cutoff values for fasting glucose and random glucose. The ADA defines fasting as no caloric intake for at least 8 hours. Fasting plasma glucose results between 100 to 125 mg/dL indicate increased risk for diabetes (prediabetes). Fasting plasma glucose results greater than or equal to 126 mg/dL meet the criteria for diagnosis of diabetes. In the absence of unequivocal hyperglycemia, results should be confirmed by repeat testing. In a patient with classic symptoms of hyperglycemia or hyperglycemic crisis, random plasma glucose results greater than or equal to 200 mg/dL meet the criteria for diagnosis of diabetes. Reference: Standards of Medical Care in Diabetes 2016, [place] Diabetes Association. Diabetes Care. 2016.39(Suppl 1). Performed By: #### 3 3959-8, 10006-2 ####[facility] LABORATORYCLIA [id number] [place] [address] [place] Potassium [Moles/Vol] 3.3 mmol/L Low 3.7-5.[address] [facility] Comment on above: Order Comment: Laura mejía Type: BLOOD SPECIMENOrdering Facility: [facility] Address: [address] [place] [address] Performed By: #### 3 3959-8, ####[facility] LABORATORYCLIA [id number] [place] [address] [place] Protein [Mass/Vol] 6.9 g/dL Normal 6.3-8.0 [facility] Comment on above: Order Comment: Laura mejía Type: BLOOD SPECIMENOrdering Facility: [facility] Address: [address] [place] [address] Performed By: #### 3 3959-8, ####[facility] LABORATORYCLIA [id number] [place], [place] [address] [place] Sodium [Moles/Vol] 138 mmol/L Normal 136-144 [facility] Comment on above: Order Comment: Laura mejía Type: BLOOD SPECIMENOrdering Facility: [facility] Address: [address] [place] [address] Performed By: #### 3 3959-8, 24422-1 ####[facility] LABORATORYCLIA [id number] [place] [address] [place] Urea nitrogen [Mass/Vol] 19 mg/dL Normal 7-21 [facility] Comment on above: Order Comment: Speci men Type: BLOOD SPECIMENOrdering Facility: [facility] Address: [place] [address] Performed By: #### 3 3959-8, 02676-7 ####[facility] LABORATORYCLIA [id number] [place] [address] [facility] ED NOTEon 11-06-2023 ED NOTE HNO ID: [id number] Author: Mariusz Monson, HERNESTO Service: ? Author Type: Registered Nurse Type: ED Notes Filed: 11/06/2023 10:22 PM Note Text: [place] [facility] [place]. [facility] ED NOTE HNO ID: [id number] Author: Bobbi Mccann, HERNESTO Service: ? Author Type: Registered Nurse Type: ED Notes Filed: 11/06/2023 9:03 PM Note Text: Bed: ED-06 Expected date: 11/06/23 Expected time: Means of arrival: Comments: Rx2 [facility] ED NOTE HNO ID: [id number] Author: Colin Pascual RN Service: Nursing Author Type: Registered Nurse Type: ED Notes Filed: 11/06/2023 1:58 PM Note Text: Patient states that she has been having multiple issues x 1 week. Headache, abdominal pain, vomiting, dizziness, sore throat and occasional chest heaviness. [facility] ED PROV NOTEon 11-06-2023 ED PROV NOTE HNO ID: [id number] Author: Hector Moon MD Service: Emergency Medicine Author Type: Physician Type: ED Provider Notes Filed: 11/06/2023 5:37 PM Note Text: ED Provider Note Patient Name: Florecita Healy : 1940 SERVICE DATE: 11/06/23 History Patient presents with: Multiple Concerns: One week ago; headache, sore throat, chest discomfort and abdominal pain and vomiting dizziness Is an 83-year-old female symptoms started 8 days ago. She had headache then sore throat congestion cough myalgias. She has been having some vomiting and diarrhea. But she been taking sips of fluids. PAST MEDICAL HISTORY Diagnosis Date Abnormal ultrasound of breast 12/02/15 Left Breast cancer of upper-outer quadrant of left female breast (HCC) Chronic obstructive pulmonary disease (COPD) ([facility]) Chronic pain 06/03/2012 sees pain management. Diarrhea 11/06/2022 Hyperlipidemia 06/03/2012 Hypertension 06/03/2012 Nausea AND vomiting 11/06/2022 Osteopenia Psoriasis Pulmonary nodule Dr. Dawn Sepsis ([facility]) 11/05/2022 Snoring PAST SURGICAL HISTORY Procedure Laterality [...] Smoking status: Every Day Packs/day: 1.00 Years: 40.00 Additional pack years: 0.00 Total pack years: 40.00 Types: Cigarettes Smokeless tobacco: Never Vaping Use Vaping Use: Never used Substance and Sexual Activity Alcohol use: No Drug use: No Sexual activity: Not Currently ALLERGIES Allergen Reactions Animal Dander Intolerance Darvocet A500 [Prop* Mental Status Change Dust Other: See Comments Grass Pollen Other: See Comments Mold Other: See Comments Soma [Carisoprodol] Swelling, Itching Trees Other: See Comments Review of Systems Constitutional: Positive for chills and fever. HENT: Positive for congestion and sore throat. Respiratory: Positive for cough. Negative for wheezing. Gastrointestinal: Positive for nausea and vomiting. Physical Exam Vitals [11/06/23 1357] BP Pulse Temp Temp src Resp SpO2 Weight Height 169/68 68 36.4 ?C (97.6 ?F) Temporal 16 98 % 73 kg (161 lb) -- Physical Exam Vitals and nursing note reviewed. Exam conducted with a gleason operator present. HENT: Head: Normocephalic and atraumatic. Nose: Nose normal. Mouth/Throat: Mouth: Mucous membranes are moist. Pharynx: Oropharynx is clear. Eyes: Conjunctiva/sclera: Conjunctivae normal. Cardiovascular: Rate and Rhythm: Normal rate and regular rhythm. Heart sounds: Normal heart sounds. Pulmonary: Effort: Pulmonary effort is normal. Breath sounds: Normal breath sounds. Abdominal: Tenderness: There is no abdominal tenderness. There is no guarding or rebound. Skin: General: Skin is dry. Neurological: Mental Status: She is alert. Psychiatric: Behavior: Behavior normal. Diagnostic Testing ED Labs Ordered and Reviewed CBC + DIFF - Abnormal; Notable for the following components: Result Value Ref Range WBC 2.43 (*) 3.70 - 11.00 k/uL Hematocrit 35.4 (*) 36.0 - 46.0 % Platelet Count 109 (*) 150 - 400 k/uL Abs Neut (Segs + Bands) 1.29 (*) 1.45 - 7.50 k/uL Abs Lymph (Normal + Reactive) 0.61 (*) 1.00 - 4.00 k/uL All other components within normal limits Narrative: This is an appended report. These results have been appended to a previously verified report. COMP METABOLIC PANEL - Abnormal; Notable for the following components: Glucose 132 (*) 74 - 99 mg/dL Potassium 3.3 (*) 3.7 - 5.1 mmol/L All other components within normal limits COVID AND INFLUENZA A/B AND RSV NAAT, EXPEDITED - Abnormal; Notable for the following components: SARS-CoV-2 (Agent of COVID-19) Detected (*) See comment All other components within normal limits Segundo (more content not included)... Normal [facility] EKGon 11-06-2023 Electrocardiogram Ventricular Rate : 6 5 BPM Atrial Rate : 65 BPM P-R Interval : 178 ms QRS Duration : 124 ms Q-T Interval : 470 ms QTC Calculation(Bazett) : 488 ms Calculated P Parker : 69 degrees Calculated R Parker : -45 degrees Calculated T Parker : 22 degrees NORMAL SINUS RHYTHM RIGHT BUNDLE BRANCH BLOCK LEFT ANTERIOR FASCICULAR BLOCK BIFASCICULAR BLOCK ABNORMAL ECG no stemi Confirmed by HECTOR MOON ([id number]), publications editor MARYANNE VANEGAS (1940) on 11/07/2023 10:35:08 AM NAME : FLORECITA HEALY PID : [id number] : 1940 Gender : Female Race : ORD : Procedure Date : Nov 06 2023 14:02:25 Edit Date : Nov 07 2023 10:35:10 Diagnosis: NORMAL SINUS RHYTHM RIGHT BUNDLE BRANCH BLOCK LEFT ANTERIOR FASCICULAR BLOCK BIFASCICULAR BLOCK ABNORMAL ECG no stemi Confirmed by HECTOR MOON ([id number]), publications editor MARYANNE VANEGAS (1940) on 11/07/2023 10:35:08 AM Test Reason : Location : 1 : ER [facility] Overread By : HECTOR MOON Edited By : MARYANNE VANEGAS Referred By : , Acquired by : Zehra PASCUAL [facility] FLUABV+SARS-CoV-2+RSV Pnl Re sp GEOVANNY+probeon 11-06-2023 FLUABV+SARS-CoV-2+RSV Pnl Resp GEOVANNY+probe COVID 19 RESULT: Detected The method used is RT-PCR or an equivalent NAAT method. Reference Range(the expected result in uninfected individuals): Not detected INFLUENZA A PCR: Not detected INFLUENZA B PCR: Not detected RSV PCR: Not detected Abnormal [facility] Comment on above: Performed By: #### 9 [id number] ####RUTLED[facility] LABORATORYCLIA [id number] [place], [place] [id number] [place] [address] [place] HISTORY PHYSICALon 3 HISTORY PHYSICAL HNO ID: [id number] Author: Kirk Smith MD Service: Hospital Medicine Author Type: Physician Type: HANDP Filed: 11/06/2023 11:10 PM Note Text: DEPARTMENT OF HOSPITAL MEDICINE HISTORY AND PHYSICAL EXAM SERVICE DATE: 11/06/2023 Code Status: Prior SERVICE TIME: 10:54 PM Primary Care Physician: Tu Canela MD NIGHT AND WEEKEND COVERAGE: [employer] COVERAGE: Days: [phone], please page attending physician. Nights: [phone], please page [place] Night coverage pager [phone]. Subjective CHIEF COMPLAINT: COVID-19 HPI: This is a 83 year old female with [...] home. She is COVID vaccinated and boosted. In the ED, her BP was slightly on the higher side, other vitals WNL, saturating well on RA. Labs significant for K 3.3, WBC 2.43 (ANC 1290). COVID positive. CXR WNL. PAST MEDICAL HISTORY Diagnosis Date Abnormal ultrasound of breast 12/02/15 Left Breast cancer of upper-outer quadrant of left female breast ([facility]) Chronic obstructive pulmonary disease (COPD) ([facility]) Chronic pain 06/03/2012 sees pain management. Diarrhea 11/06/2022 Hyperlipidemia 06/03/2012 Hypertension 06/03/2012 Nausea AND vomiting 11/06/2022 Osteopenia Psoriasis Pulmonary nodule Dr. Dawn Sepsis ([facility]) 11/05/2022 Snoring PAST SURGICAL HISTORY Procedure Laterality [...] Smoking status: Every Day Packs/day: 1.00 Years: 40.00 Additional pack years: 0.00 Total pack years: 40.00 Types: Cigarettes Smokeless tobacco: Never Vaping Use Vaping Use: Never used Substance Use Topics Alcohol use: No Drug use: No PRIOR TO ADMISSION MEDICATIONS: (Not in a hospital admission) ALLERGIES Allergen Reactions Animal Dander Intolerance Darvocet A500 [Prop* Mental Status Change Dust Other: See Comments Grass Pollen Other: See Comments Mold Other: See Comments Soma [Carisoprodol] Swelling, Itching Trees Other: See Comments COMPLETE REVIEW OF SYSTEMS: PAIN ASSESSMENT: Negative for pain, history of chronic pain, or current treatment for a chronic pain condition. GENERAL: Malaise HEENT: Sore throat, congestion NECK: Negative for lumps, goiter, pain and significant neck swelling RESPIRATORY: Negative for cough, hemoptysis, wheezing, COPD, dyspnea or shortness of breath CARDIOVASCULAR: Negative for chest pain, leg swelling, hypertension, CHF or palpitations GI: Vomiting, loose stools : No history of dysuria, frequency or incontinence MUSCULOSKELETAL: Negative for joint pain or swelling, back pain or muscle pain SKIN: Negative for lesions, rash, and itching PSYCH: Negative for sleep disturbance, mood disorder and recent psychosocial stressors HEMATOLOGY/LYMPHOLOGY: Negative for prolonged bleeding, bruising easily or swollen nodes ENDOCRINE: Negative for cold or heat intolerance, polyuria, polydipsia and goiter NEURO: No history of headaches, syncope, paralysis, seizures or tremors OBJECTIVE PHYSICAL EXAM: BP 190/81 Pulse 66 Temp 36.4 ?C (97.6 ?F) (Temporal) Resp 17 Wt 73 kg (161 lb) SpO2 95% BMI 26.79 kg/m? GENERAL: Alert, no distress, cooperative SKIN: Skin color, texture, turgor normal. No rashes or lesions. Appears dehydrated Head: Normocephalic, no masses, lesions, tenderness or abnormaliti (more content not included)... Normal [facility] Procalcitonin SerPl-mCncon 1 01-07-2023 Procalcitonin [Mass/Vol] 0.09 ng/mL High <0.09 [facility] Comment on above: Order Comment: Speci men Type: BLOOD SPECIMENOrdering Facility: [facility] Address: [address] [place] [address] Result Comment: For a guided interpretation of test results, please visit the Change in Procalcitonin Calculator, [email or web address]. Performed By: #### 3 3959-8, 63102-7 ####RUTLED[facility] LABORATORYCLIA [id number] [place] [address] [facility] [place] XR CHEST 2V FRONTAL/LATon XR CHEST 2V FRONTAL/LAT * * *Final Report* * * DATE OF EXAM: Nov 06 2023 2:35PM MDX [id number] - XR CHEST 2V FRONTAL/LAT / PROCEDURE REASON: Other * * * * Physician Interpretation * * * * EXAMINATION: CHEST RADIOGRAPH (2 VIEW FRONTAL and LATERAL) CLINICAL HISTORY: Other, Chest Pain, chest discomfort x 1 week MQ: [id number] EXAM DATE/TIME: 11/06/2023 2:35 PM COMPARISON: 11/05/2022 RESULT: Lines, tubes, and devices: None. Lungs and pleura: No consolidation. No lung mass. No pleural effusion. No pneumothorax. Cardiomediastinal silhouette: Normal cardiomediastinal silhouette. Bones and soft tissues: Unremarkable. IMPRESSION: No acute radiographic abnormality. Research Manufacturing Operator: PSCBrent Transcribe Date/Time: Nov 06 2023 2:43P Dictated by : MADDIE PERKINS MD This examination was interpreted and the report reviewed and electronically signed by: MADDIE PERKINS MD on Nov 06 2023 2:43PM EST [id number] [facility] TSH BLDon 08-01-2023 TSH Qn 3.090 m[IU]/L 0.270 - 4.200 mIU/L [facility] HbA1c (Bld)on 03-02-2023 Average glucose Estimated from glycated hemoglobin (Bld) [Mass/Vol] 103 mg/dL [facility] HbA1c (Bld) [Mass fraction] 5.2 % 4.3 - 5.6 % [facility] Urinalysis complete panel (U )on 03-02-2023 Bacteria LM.HPF (Urine sed) [#/Area] Rare Abnormal None Seen /HPF [facility] Bilirubin Ql (U) Negative Negative [facility] Clarity (Unsp spec) Clear Clear [facility] Color (U) Yellow Yellow [facility] Epithelial cells LM.HPF (Urine sed) [#/Area] Few [facility] Glucose Test strip (U) [Mass/Vol] Negative Trace, Negative [facility] Hemoglobin Ql (U) Trace Negative, Trace [facility] Ketones Ql (U) Negative Trace, Negative [facility] Leukocyte esterase Test strip Ql (U) 250 Anjana/uL Abnormal Negative, 25 Anjana/uL [facility] Nitrite Ql (U) Negative Negative [facility] pH (U) 6.0 [pH] 5.0 - 8.[address] [facility] Protein (U) [Mass/Vol] 1+ Abnormal Trace , Negative [facility] RBC LM.HPF (Urine sed) [#/Area] 3-5 /HPF Abnormal 0-3 /HPF [facility] Specific gravity (U) [Rel density] 1.023 1.005 - 1.[address] [facility] Urobilinogen Ql (U) Negative Negative [facility] WBC LM.HPF (Urine sed) [#/Area] /[HPF] Abnormal 0-5 /HPF [facility] Routine wound cultureOrdered By: Dr. Tim on 12-15-2022 Bacteria identified Cx Nom (Wound) No growth aerobically. [facility] Gram stain for investigation of transfusion reactionOrdered By: Dr. Tim on 12-12-2022 Microscopic observation Gram stain Nom (Unsp spec) [facility] Routine wound cultureOrdered By: Dr. Tim on 12-07-2022 Bacteria identified Cx Nom (Wound) No growth aerobically. [facility] Gram stain for investigation of transfusion reactionOrdered By: Dr. Tim on 12-06-2022 Microscopic observation Gram stain Nom (Unsp spec) [facility] Bacteria identified Cx Nom ( Wound)Ordered By: Dr. Tim on 11-22-2022 Wound Culture Bacillus sp., not anthracis [facility] Wound Culture Streptococcus pyogenes [facility] Gram stain for investigation of transfusion reactionOrdered By: Dr. Tim on 11-20-2022 Microscopic observation Gram stain Nom (Unsp spec) [facility] Basic metabolic 2000 panelon 06-14-2022 Anion gap [Moles/Vol] 13 mmol/L 9 - 18 mmol/L [facility] Calcium [Mass/Vol] 9.7 mg/dL 8.5 - 10. 2 mg/dL [facility] Chloride [Moles/Vol] 107 mmol/L High 97 - 10 5 mmol/L [facility] CO2 [Moles/Vol] 24 mmol/L 22 - 30 mmol/L [facility] Creatinine [Mass/Vol] 0.91 mg/dL 0.58 - 0.96 mg/dL [facility] Estimated Glomerular Filtration Rate 64 mL/min/1.73m >=60 mL/min/1.73m [facility] Glucose [Mass/Vol] 90 mg/dL 74 - 99 mg/dL [facility] Potassium [Moles/Vol] 4.4 mmol/L 3.7 - 5.1 mmol/L [facility] Sodium [Moles/Vol] 144 mmol/L 136 - 144 mmol/L [facility] Urea nitrogen [Mass/Vol] 13 mg/dL 7 - 21 mg/dL [facility] TITO SCREENINGon 05-02-[address] [facility] No Panel Informationon 11-30 Radiology Study observation (narrative) [facility] XR Ankle - right AP and Late ral and obliqueon 11-30-2021 IMPRESSION: 1. Small ankle joint effusion. 2. Calcaneal enthesopathy. Research Manufacturing Operator: PRINCE Transcribe Date/Time: Nov 30 2021 12:36P Dictated by : DRISS MCDONNELL MD This examination was interpreted and the report reviewed and electronically signed by: DRISS MCDONNELL MD on Nov 30 2021 12:38PM [facility] DIVISION OF RADIOLOGY * * *Final Report* * * DATE OF EXAM: Nov 30 2021 12:28PM WOX [id number] - XR ANKLE 3V AP/LAT/OBL RT / PROCEDURE REASON: Edema, unspecified type * * * * Physician Interpretation * * * * CLINICAL INDICATION: Pain TECHNIQUE: 3 view radiographic study of the right ankle with inclusion of a single frontal view of the left ankle for purposes of comparison/symmetry COMPARISON: None FINDINGS: Small ankle joint effusion. No acute fracture or dislocation identified. Dorsal and plantar calcaneal enthesophytes. DIVISION OF RADIOLOGY Provider, [facility] Latesha Ivy - 11/30/2021 * * *Final Report* * * DATE OF EXAM: Nov 30 2021 12:28PM WOX 5297 - XR ANKLE 3V AP/LAT/OBL RT / PROCEDURE REASON: Edema, unspecified type * * * * Physician Interpretation * * * * CLINICAL INDICATION: Pain TECHNIQUE: 3 view radiographic study of the right ankle with inclusion of a single frontal view of the left ankle for purposes of comparison/symmetry COMPARISON: None FINDINGS: Small ankle joint effusion. No acute fracture or dislocation identified. Dorsal and plantar calcaneal enthesophytes. IMPRESSION IMPRESSION: 1. Small ankle joint effusion. 2. Calcaneal enthesopathy. Research Manufacturing Operator: PRINCE Transcribe Date/Time: Nov 30 2021 12:36P Dictated by : DRISS MCDONNELL MD This examination was interpreted and the report reviewed and electronically signed by: DRISS MCDONNELL MD on Nov 30 2021 12:38PM EST [facility] XR Ankle - right AP and Late ral and obliqueOrdered By: Cc Provider on 11-30-[address] [facility] XR Foot - right AP and Later al and obliqueon 11-30-2021 IMPRESSION: No acute process is seen. Degenerative changes, as described. Research Manufacturing Operator: PRINCE Transcribe Date/Time: Nov 30 2021 12:36P Dictated by : LI PEREZ MD This examination was interpreted and the report reviewed and electronically signed by: LI PEREZ MD on Nov 30 2021 12:37PM [facility] DIVISION OF RADIOLOGY * * *Final Report* * * DATE OF EXAM: Nov 30 2021 12:28PM WOX 5337 - XR FOOT 3V AP/LAT/OBL RT / PROCEDURE REASON: Edema, unspecified type * * * * Physician Interpretation * * * * History: Pain FINDINGS: AP, lateral, and oblique views of the right foot have been obtained. There are degenerative changes of the first MTP joint with narrowing, sclerosis, and spurring. No acute fracture or dislocation is seen. Small plantar calcaneal spur noted. 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 Mild first MTP joint degenerative change. DIVISION OF RADIOLOGY Provider, Yamilet [facility] - 11/30/2021 * * *Final Report* * * DATE OF EXAM: Nov 30 2021 12:28PM WOX 5337 - XR FOOT 3V AP/LAT/OBL RT / PROCEDURE REASON: Edema, unspecified type * * * * Physician Interpretation * * * * History: Pain FINDINGS: AP, lateral, and oblique views of the right foot have been obtained. There are degenerative changes of the first MTP joint with narrowing, sclerosis, and spurring. No acute fracture or dislocation is seen. Small plantar calcaneal spur noted. 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 Mild first MTP joint degenerative change. IMPRESSION IMPRESSION: No acute process is seen. Degenerative changes, as described. Research Manufacturing Operator: PSCB Transcribe Date/Time: Nov 30 2021 12:36P Dictated by : LI PERZE MD This examination was interpreted and the report reviewed and electronically signed by: LI PEREZ MD on Nov 30 2021 12:37PM [facility] Vital Signs Date Time Vital Sign Value Performing Clinician Facility 06-04-2025 11:06-0400 Diastolic blood pressure 83 mm[Hg] Jannie Proctor DO Work Phone: [facility] 06-04-2025 11:06-0400 Heart rate 90 /min Jannie Proctor DO Work Phone: [facility] 06-04-2025 11:06-0400 SaO2% (BldA) [Mass fraction] 96 % Jannie Proctor DO Work Phone: [facility] 06-04-2025 11:06-0400 Systolic blood pressure 145 mm[Hg] Jannie Proctor DO Work Phone: [facility] 04-29-2025 10:30-0400 Diastolic blood pressure 82 mm[Hg] Rosie Syed APRN.[employer] Work Phone: [facility] 06-18-2025 10:30-0400 Systolic blood pressure 134 mm[Hg] Rosie Haagen LIABILITY CLAIMS EXAMINER.[employer] Work Phone: [facility] 04-29-2025 09:54-0400 Heart rate 91 /min Rosie Haagen LIABILITY CLAIMS EXAMINER[employer] Work Phone: [facility] 04-29-2025 09:54-0400 Respiratory rate 16 /min Rosie Haagen LIABILITY CLAIMS EXAMINER[employer] Work Phone: [facility] 04-29-2025 09:54-0400 SaO2% (BldA) [Mass fraction] 96 % Rosie Haagen LIABILITY CLAIMS EXAMINER[employer] Work Phone: [facility] 04-14-2025 10:52-0400 Diastolic blood pressure 84 mm[Hg] Jannie Proctor DO Work Phone: [facility] 04-14-2025 10:52-0400 Heart rate 82 /min Jannie Proctor DO Work Phone: [facility] 04-14-2025 10:52-0400 SaO2% (BldA) [Mass fraction] 96 % Jannie Proctor DO Work Phone: [facility] 04-14-2025 10:52-0400 Systolic blood pressure 155 mm[Hg] Jannie Proctor DO Work Phone: [facility] 02-11-2025 14:26-0400 Diastolic blood pressure 70 mm[Hg] Tu Canela MD Work Phone: [facility] 02-11-2025 14:26-0400 Systolic blood pressure 128 mm[Hg] Tu Canela MD Work Phone: [facility] 02-11-2025 13:53-0400 Body mass index (BMI) [Ratio] 28.79 kg/m2 Tu Canela MD Work Phone: [facility] 02-11-2025 13:53-0400 Body weight 78.47 kg Tu Canela MD Work Phone: [facility] 02-11-2025 13:53-0400 Heart rate 87 /min Tu Canela MD Work Phone: [facility] 02-11-2025 13:53-0400 SaO2% (BldA) [Mass fraction] 97 % Tu Canela MD Work Phone: [facility] 02-09-2025 10:01-0400 Diastolic blood pressure 64 mm[Hg] Jannie Proctor DO Work Phone: [facility] 02-09-2025 10:01-0400 Heart rate 73 /min Jannie Proctor DO Work Phone: [facility] 02-09-2025 10:01-0400 SaO2% (BldA) [Mass fraction] 97 % Jannie Proctor DO Work Phone: [facility] 02-09-2025 10:01-0400 Systolic blood pressure 136 mm[Hg] Jannie Proctor DO Work Phone: [facility] 02-04-2025 10:33-0400 Body height 165.1 cm Amy Hollaender LIABILITY CLAIMS EXAMINER.[employer] Work Phone: [facility] 02-04-2025 10:33-0400 Body mass index (BMI) [Ratio] 28.79 kg/m2 Amy Hollaender LIABILITY CLAIMS EXAMINER.[employer] Work Phone: [facility] 02-04-2025 10:33-0400 Body weight 78.47 kg Amy Hollaender LIABILITY CLAIMS EXAMINER.[employer] Work Phone: [facility] 02-04-2025 10:33-0400 Diastolic blood pressure 73 mm[Hg] Amy Hollaender LIABILITY CLAIMS EXAMINER.[employer] Work Phone: [facility] 02-04-2025 10:33-0400 Heart rate 79 /min Amy Hollaender LIABILITY CLAIMS EXAMINER.[employer] Work Phone: [facility] 02-04-2025 10:33-0400 Systolic blood pressure 99 mm[Hg] Amy Hollaender LIABILITY CLAIMS EXAMINER[employer] Work Phone: [facility] 01-26-2025 15:35-0400 Diastolic blood pressure 60 mm[Hg] Tu Canela MD Work Phone: [facility] 01-26-2025 15:35-0400 Systolic blood pressure 138 mm[Hg] Tu Canela MD Work Phone: [facility] 01-26-2025 14:52-0400 Body mass index (BMI) [Ratio] 28.79 kg/m2 Tu Canela MD Work Phone: [facility] 01-26-2025 14:52-0400 Body weight 78.47 kg Tu Canela MD Work Phone: [facility] 01-26-2025 14:52-0400 Heart rate 73 /min Tu Canela MD Work Phone: [facility] 01-26-2025 14:52-0400 SaO2% (BldA) [Mass fraction] 96 % Tu Canela MD Work Phone: [facility] 12-17-2024 11:04-0500 Diastolic blood pressure 84 mm[Hg] Rosie Haagen LIABILITY CLAIMS EXAMINER.[employer] Work Phone: [facility] Comment on above: BP recheck 12-17-2024 11:04-0500 Systolic blood pressure 145 mm[Hg] Rosie Haagen LIABILITY CLAIMS EXAMINER.[employer] Work Phone: [facility] Comment on above: BP recheck 12-17-2024 10:16-0500 Heart rate 82 /min Rosie Haagen [employer] Work Phone: [facility] 12-17-2024 10:16-0500 Respiratory rate 16 /min Rosie Haagen LIABILITY CLAIMS [employer] Work Phone: [facility] 12-17-2024 10:16-0500 SaO2% (BldA) [Mass fraction] 98 % Rosie Haagen LIABILITY CLAIMS [employer] Work Phone: [facility] 11-03-2024 13:54-0500 Body height 165.1 cm Aylin Paz LIABILITY CLAIMS EXAMINER[employer] Work Phone: [facility] 11-03-2024 13:54-0500 Body mass index (BMI) [Ratio] 27.57 kg/m2 Aylin [place] LIABILITY CLAIMS [employer] Work Phone: [facility] 11-03-2024 13:54-0500 Body temperature 96.69 [degF] Aylin [place] LIABILITY CLAIMS [employer] Work Phone: [facility] 11-03-2024 13:54-0500 Body weight 75.15 kg Aylin Brandi LIABILITY CLAIMS EX[employer] Work Phone: [facility] 11-03-2024 13:54-0500 Diastolic blood pressure 76 mm[Hg] Aylin [place] LIABILITY CLAIMS [employer] Work Phone: [facility] 11-03-2024 13:54-0500 Heart rate 81 /min Aylin Brandi LIABILITY CLAIMS EX[employer] Work Phone: [facility] 11-03-2024 13:54-0500 Systolic blood pressure 146 mm[Hg] Aylin Brandi LIABILITY CLAIMS EX[employer] Work Phone: [facility] 10-31-2024 11:12-0500 Diastolic blood pressure 79 mm[Hg] Rosie Syed LIABILITY CLAIMS EX[employer] Work Phone: [facility] Comment on above: [facility] 10-31-2024 11:12-0500 Heart rate 73 /min Rosie Syed LIABILITY CLAIMS [employer] Work Phone: [facility] 10-31-2024 11:12-0500 Systolic blood pressure 159 mm[Hg] Rosie Haagen LIABILITY CLAIMS [employer] Work Phone: [facility] Comment on above: [facility] 10-31-2024 10:23-0500 Respiratory rate 16 /min Rosie Syed LIABILITY CLAIMS EX[employer] Work Phone: [facility] 10-31-2024 10:23-0500 SaO2% (BldA) [Mass fraction] 98 % Rosie Syed LIABILITY CLAIMS EX[employer] Work Phone: [facility] 09-17-2024 09:58-0500 Body mass index (BMI) [Ratio] 26.79 kg/m2 Rosie Haagen LIABILITY CLAIMS EX[employer] Work Phone: [facility] 09-17-2024 09:58-0500 Body weight 73.03 kg Rosie Haagen LIABILITY CLAIMS EX[employer] Work Phone: [facility] 09-17-2024 09:58-0500 Diastolic blood pressure 70 mm[Hg] Rosie Haagen LIABILITY CLAIMS EX[employer] Work Phone: [facility] 09-17-2024 09:58-0500 Heart rate 90 /min Rosie Haagen LIABILITY CLAIMS EX[employer] Work Phone: [facility] 09-17-2024 09:58-0500 Respiratory rate 16 /min Rosie Haagen LIABILITY CLAIMS [employer] Work Phone: [facility] 09-17-2024 09:58-0500 SaO2% (BldA) [Mass fraction] 92 % Rosie Haagen LIABILITY CLAIMS [employer] Work Phone: [facility] 09-17-2024 09:58-0500 Systolic blood pressure 112 mm[Hg] Rosie Haagen LIABILITY CLAIMS EX[employer] Work Phone: [facility] 08-12-2024 10:38-0400 Diastolic blood pressure 84 mm[Hg] Rosie Haagen LIABILITY CLAIMS EX[employer] Work Phone: [facility] 08-12-2024 10:38-0400 Heart rate 74 /min Rosie Haagen LIABILITY CLAIMS EX[employer] Work Phone: [facility] 08-12-2024 10:38-0400 Respiratory rate 16 /min Rosie Haagen LIABILITY CLAIMS EX[employer] Work Phone: [facility] 08-12-2024 10:38-0400 SaO2% (BldA) [Mass fraction] 96 % Rosie Haagen LIABILITY CLAIMS EX[employer] Work Phone: [facility] 08-12-2024 10:38-0400 Systolic blood pressure 138 mm[Hg] Rosie Haagen LIABILITY CLAIMS EX[employer] Work Phone: [facility] 07-09-2024 12:52-0400 Diastolic blood pressure 78 mm[Hg] Rosie Haagen LIABILITY CLAIMS EX[employer] Work Phone: [facility] 07-09-2024 12:52-0400 Heart rate 79 /min Rosie Haagen LIABILITY CLAIMS EX[employer] Work Phone: [facility] 07-09-2024 12:52-0400 Respiratory rate 16 /min Rosie Haagen LIABILITY CLAIMS EX[employer] Work Phone: [facility] 07-09-2024 12:52-0400 SaO2% (BldA) [Mass fraction] 94 % Rosie Haagen LIABILITY CLAIMS EX[employer]ER[employer] Work Phone: [facility] 07-09-2024 12:52-0400 Systolic blood pressure 142 mm[Hg] Rosie Haagen LIABILITY CLAIMS EX[employer]ER[employer] Work Phone: [facility] 07-01-2024 11:19-0400 Diastolic blood pressure 84 mm[Hg] Rosie Haagen LIABILITY CLAIMS EX[employer] Work Phone: [facility] Comment on above: [facility] 07-01-2024 11:19-0400 Heart rate 86 /min Rosie Haagen LIABILITY CLAIMS EX[employer] Work Phone: [facility] 07-01-2024 11:19-0400 Systolic blood pressure 143 mm[Hg] Rosie Haagen LIABILITY CLAIMS EX[employer] Work Phone: [facility] Comment on above: [facility] 07-01-2024 11:04-0400 Respiratory rate 16 /min Rosie Haagen LIABILITY CLAIMS EX[employer] Work Phone: [facility] 07-01-2024 11:04-0400 SaO2% (BldA) [Mass fraction] 94 % Rosie Haagen LIABILITY CLAIMS EX[employer] Work Phone: [facility] 05-07-2024 09:54-0400 Diastolic blood pressure 74 mm[Hg] Nevin Fajardo LIABILITY CLAIMS EX[employer]ER[employer] Work Phone: [facility] 05-07-2024 09:54-0400 Systolic blood pressure 166 mm[Hg] Nevin Fajardo LIABILITY CLAIMS EX[employer] Work Phone: [facility] 05-07-2024 09:43-0400 Body mass index (BMI) [Ratio] 26.69 kg/m2 Nevin Tana LIABILITY CLAIMS EX[employer]ER[employer] Work Phone: [facility] 05-07-2024 09:43-0400 Body temperature 98.71 [degF] Charlottemalena Fajardo LIABILITY CLAIMS EXAMINER[employer] Work Phone: [facility] 05-07-2024 09:43-0400 Body weight 72.76 kg Nevin Tana LIABILITY CLAIMS EX[employer]ER[employer] Work Phone: [facility] 05-07-2024 09:43-0400 Heart rate 68 /min Nevin Fajardo LIABILITY CLAIMS EX[employer]ER[employer] Work Phone: [facility] 03-19-2024 11:19-0400 Diastolic blood pressure 78 mm[Hg] Rosie Syed LIABILITY CLAIMS EX[employer] Work Phone: [facility] Comment on above: [facility] 03-19-2024 11:19-0400 Heart rate 76 /min Rosie Syed LIABILITY CLAIMS EX[employer] Work Phone: [facility] 03-19-2024 11:19-0400 Systolic blood pressure 135 mm[Hg] Rosie Syed LIABILITY CLAIMS EX[employer] Work Phone: [facility] Comment on above: [facility] 03-19-2024 10:29-0400 Body mass index (BMI) [Ratio] 26.13 kg/m2 Rosie Syed LIABILITY CLAIMS EX[employer] Work Phone: [facility] 03-19-2024 10:29-0400 Body weight 71.22 kg Rosie Syed LIABILITY CLAIMS EX[employer] Work Phone: [facility] 03-19-2024 10:29-0400 Respiratory rate 16 /min Rosie Syed LIABILITY CLAIMS EX[employer] Work Phone: [facility] 03-19-2024 10:29-0400 SaO2% (BldA) [Mass fraction] 95 % Rosie Syed LIABILITY CLAIMS EX[employer] Work Phone: [facility] 11-13-2023 22:38-0500 Diastolic blood pressure 91 mm[Hg] [facility] [place] 11-13-2023 22:38-0500 Heart rate 81 /min [facility] 11-13-2023 22:38-0500 Respiratory rate 18 /min [facility] 11-13-2023 22:38-0500 SaO2% (BldA) [Mass fraction] 99 % [facility] [place] 11-13-2023 22:38-0500 Systolic blood pressure 166 mm[Hg] [facility] [place] 11-13-2023 21:00-0500 Body temperature 97.4 [degF] [facility] 11-13-2023 19:42-0500 Body height 167.64 cm [facility] 09-25-2023 10:51-0500 Diastolic blood pressure 84 mm[Hg] Nevin Fajardo LIABILITY CLAIMS EX[employer] Work Phone: [facility] 09-25-2023 10:51-0500 Systolic blood pressure 146 mm[Hg] Nevin Fajardo LIABILITY CLAIMS EX[employer]ER[employer] Work Phone: [facility] 09-25-2023 10:13-0500 Body height 165.1 cm Charlotte Fajardo LIABILITY CLAIMS EXAMINER[employer] Work Phone: [facility] 09-25-2023 10:13-0500 Body temperature 97.2 [degF] Nevin Fajardo LIABILITY CLAIMS EX[employer]ER[employer] Work Phone: [facility] 09-25-2023 10:13-0500 Body weight 73.03 kg Nevin Fajardo LIABILITY CLAIMS EX[employer]ER[employer] Work Phone: [facility] 09-25-2023 10:13-0500 Heart rate 80 /min Nevin Fajardo LIABILITY CLAIMS EX[employer] Work Phone: [facility] 07-31-2023 09:52-0400 Body weight 70.31 kg KAROL Brown PA-C Work Phone: [facility] 07-31-2023 09:52-0400 Diastolic blood pressure 70 mm[Hg] KAROL Brown PA-C Work Phone: [facility] 07-31-2023 09:52-0400 Heart rate 84 /min NA Brown PA-C Work Phone: [facility] 07-31-2023 09:52-0400 Respiratory rate 16 /min NA Brown PA-C Work Phone: [facility] 07-31-2023 09:52-0400 SaO2% (BldA) [Mass fraction] 95 % NA Brown PA-C Work Phone: [facility] 07-31-2023 09:52-0400 Systolic blood pressure 132 mm[Hg] NA Brown PA-C Work Phone: [facility] 07-10-2023 11:04-0400 Diastolic blood pressure 79 mm[Hg] Jannie Proctor DO Work Phone: [facility] 07-10-2023 11:04-0400 Heart rate 80 /min Jannie Proctor DO Work Phone: [facility] 07-10-2023 11:04-0400 SaO2% (BldA) [Mass fraction] 97 % Jannie Proctor DO Work Phone: [facility] 07-10-2023 11:04-0400 Systolic blood pressure 144 mm[Hg] Jannie Proctor DO Work Phone: [facility] 07-03-2023 10:07-0400 Diastolic blood pressure 86 mm[Hg] Rosie Haagen LIABILITY CLAIMS EX[employer] Work Phone: [facility] 07-03-2023 10:07-0400 Heart rate 73 /min Rosie Haagen LIABILITY CLAIMS EX[employer]ER[employer] Work Phone: [facility] 07-03-2023 10:07-0400 Systolic blood pressure 152 mm[Hg] Rosie Haagen LIABILITY CLAIMS EX[employer]ER[employer] Work Phone: [facility] 07-03-2023 09:33-0400 Respiratory rate 16 /min Rosie Haagen LIABILITY CLAIMS EX[employer]ER[employer] Work Phone: [facility] 07-03-2023 09:33-0400 SaO2% (BldA) [Mass fraction] 97 % Rosie Haagen LIABILITY CLAIMS EX[employer] Work Phone: [facility] 05-29-2023 10:27-0400 Body height 152.4 cm Fredi Pierce MD Work Phone: [facility] 05-29-2023 10:27-0400 Body temperature 97.3 [degF] Fredi Pierce MD Work Phone: [facility] 05-29-2023 10:27-0400 Body weight 70.58 kg Fredi Pierce MD Work Phone: [facility] 05-29-2023 10:27-0400 Diastolic blood pressure 88 mm[Hg] Fredi Pierce MD Work Phone: [facility] 05-29-2023 10:27-0400 Heart rate 96 /min Fredi Pierce MD Work Phone: [facility] 05-29-2023 10:27-0400 SaO2% (BldA) [Mass fraction] 99 % Fredi Pierce MD Work Phone: [facility] 05-29-2023 10:27-0400 Systolic blood pressure 136 mm[Hg] Fredi Pierce MD Work Phone: [facility] 05-29-2023 09:29-0400 Diastolic blood pressure 86 mm[Hg] Rosie Haagen LIABILITY CLAIMS EX[employer]ER[employer] Work Phone: [facility] 05-29-2023 09:29-0400 Heart rate 84 /min Rosie Haagen LIABILITY CLAIMS EX[employer] Work Phone: [facility] 05-29-2023 09:29-0400 Systolic blood pressure 157 mm[Hg] Rosie Haagen LIABILITY CLAIMS EX[employer] Work Phone: [facility] 05-29-2023 09:16-0400 Respiratory rate 16 /min Rosie Haagen LIABILITY CLAIMS EX[employer] Work Phone: [facility] 05-29-2023 09:16-0400 SaO2% (BldA) [Mass fraction] 97 % Rosie Haagen LIABILITY CLAIMS EX[employer] Work Phone: [facility] 05-08-2023 13:05-0400 Diastolic blood pressure 91 mm[Hg] [facility] Work Phone: [facility] 05-08-2023 13:05-0400 Systolic blood pressure 190 mm[Hg] [facility] Work Phone: [facility] 05-08-2023 13:04-0400 Body temperature 97.39 [degF] [facility] Work Phone: [facility] 05-08-2023 13:04-0400 Heart rate 70 /min [facility] Work Phone: [facility] 05-08-2023 13:04-0400 SaO2% (BldA) [Mass fraction] 96 % [facility] Work Phone: [facility] 05-02-2023 09:56-0400 Diastolic blood pressure 83 mm[Hg] Rosie Haagen LIABILITY CLAIMS EX[employer] Work Phone: [facility] 05-02-2023 09:56-0400 Heart rate 68 /min Rosie Haagen LIABILITY CLAIMS EX[employer] Work Phone: [facility] 05-02-2023 09:56-0400 Systolic blood pressure 174 mm[Hg] Rosei Ramosagen LIABILITY CLAIMS EXAMINER[employer] Work Phone: [facility] 05-02-2023 09:45-0400 Respiratory rate 16 /min Rosie Ramosagen LIABILITY CLAIMS EXAM[employer]ER[employer] Work Phone: [facility] 05-02-2023 09:45-0400 SaO2% (BldA) [Mass fraction] 96 % Rosie Syed LIABILITY CLAIMS EX[employer]ER[employer] Work Phone: [facility] 03-22-2023 14:10-0400 Body temperature 99.39 [degF] Nevin Fajardo LIABILITY CLAIMS EXAM[employer]ER[employer] Work Phone: [facility] 03-22-2023 14:10-0400 Body weight 67.81 kg Nevin Fajardo LIABILITY CLAIMS EX[employer] Work Phone: [facility] 03-22-2023 14:10-0400 Diastolic blood pressure 98 mm[Hg] Nevin Sellersenter LIABILITY CLAIMS EXAMINER[employer] Work Phone: [facility] 03-22-2023 14:10-0400 Heart rate 89 /min Nevin Sellersenter LIABILITY CLAIMS EXAMINER[employer] Work Phone: [facility] 03-22-2023 14:10-0400 SaO2% (BldA) [Mass fraction] 95 % Nevin Sellersenter LIABILITY CLAIMS EX[employer]ER[employer] Work Phone: [facility] 03-22-2023 14:10-0400 Systolic blood pressure 188 mm[Hg] Nevin Sellersenter LIABILITY CLAIMS EX[employer] Work Phone: [facility] 03-13-2023 10:35-0400 Body height 166.4 cm Fredi Pierce MD Work Phone: [facility] 03-13-2023 10:35-0400 Body temperature 97.11 [degF] Fredi Pierce MD Work Phone: [facility] 03-13-2023 10:35-0400 Body weight 68.58 kg Fredi Pierce MD Work Phone: [facility] 03-13-2023 10:35-0400 Diastolic blood pressure 86 mm[Hg] Fredi Pierce MD Work Phone: [facility] 03-13-2023 10:35-0400 Heart rate 79 /min Fredi Pierce MD Work Phone: [facility] 03-13-2023 10:35-0400 SaO2% (BldA) [Mass fraction] 98 % Fredi Pierce MD Work Phone: [facility] 03-13-2023 10:35-0400 Systolic blood pressure 140 mm[Hg] Fredi Pierce MD Work Phone: [facility] 03-02-2023 10:07-0400 Body weight 68.04 kg Tu Canela MD Work Phone: [facility] 03-02-2023 10:07-0400 Diastolic blood pressure 102 mm[Hg] Tu Canela MD Work Phone: [facility] 03-02-2023 10:07-0400 Heart rate 63 /min Tu Canela MD Work Phone: [facility] 03-02-2023 10:07-0400 SaO2% (BldA) [Mass fraction] 99 % Tu Canela MD Work Phone: [facility] 03-02-2023 10:07-0400 Systolic blood pressure 162 mm[Hg] Tu Canela MD Work Phone: [facility] 02-13-2023 09:44-0400 Diastolic blood pressure 86 mm[Hg] Jannie Proctor DO Work Phone: [facility] 02-13-2023 09:44-0400 Heart rate 73 /min Jannie Proctor DO Work Phone: [facility] 02-13-2023 09:44-0400 SaO2% (BldA) [Mass fraction] 99 % Jannie Proctor DO Work Phone: [facility] 02-13-2023 09:44-0400 Systolic blood pressure 170 mm[Hg] Jannie Proctor DO Work Phone: [facility] 01-16-2023 13:15-0500 Diastolic blood pressure 83 mm[Hg] [facility] Work Phone: [facility] 01-16-2023 13:15-0500 Systolic blood pressure 188 mm[Hg] [facility] Work Phone: [facility] 01-16-2023 13:11-0500 Body temperature 98.4 [degF] [facility] Work Phone: [facility] 01-16-2023 13:11-0500 Heart rate 78 /min [facility] Work Phone: [facility] 01-16-2023 13:11-0500 SaO2% (BldA) [Mass fraction] 98 % [facility] Work Phone: [facility] 01-09-2023 13:13-0500 Body height 165.1 cm Jannie Proctor DO Work Phone: [facility] 01-09-2023 13:13-0500 Body weight 67.59 kg Jannie Proctor DO Work Phone: [facility] 01-09-2023 13:13-0500 Diastolic blood pressure 82 mm[Hg] Jannie Proctor DO Work Phone: [facility] 01-09-2023 13:13-0500 Heart rate 77 /min Jannie Proctor DO Work Phone: [facility] 01-09-2023 13:13-0500 SaO2% (BldA) [Mass fraction] 97 % Jannie Proctor DO Work Phone: [facility] 01-09-2023 13:13-0500 Systolic blood pressure 169 mm[Hg] Jannie Proctor DO Work Phone: [facility] 12-19-2022 15:08-0500 Diastolic blood pressure 108 mm[Hg] [facility] Work Phone: [facility] 12-19-2022 15:08-0500 Systolic blood pressure 188 mm[Hg] [facility] Work Phone: [facility] 12-19-2022 14:57-0500 Body temperature 98.6 [degF] [facility] Work Phone: [facility] 12-19-2022 14:57-0500 Heart rate 90 /min [facility] Work Phone: [facility] 12-19-2022 14:57-0500 Respiratory rate 18 /min [facility] Work Phone: [facility] 12-19-2022 14:57-0500 SaO2% (BldA) [Mass fraction] 98 % [facility] Work Phone: [facility] 07-25-2022 13:02-0400 Diastolic blood pressure 87 mm[Hg] Mi Nurse Work Phone: [facility] 07-25-2022 13:02-0400 Heart rate 84 /min Mi Nurse Work Phone: [facility] 07-25-2022 13:02-0400 Systolic blood pressure 168 mm[Hg] Mi Nurse Work Phone: [facility] 06-14-2022 09:09-0400 Body height 165.1 cm Tu Canela MD Work Phone: [facility] 06-14-2022 09:09-0400 Body weight 69.04 kg Tu Canela MD Work Phone: [facility] 06-14-2022 09:09-0400 Diastolic blood pressure 88 mm[Hg] Tu Canela MD Work Phone: [facility] 06-14-2022 09:09-0400 Heart rate 79 /min Tu Canela MD Work Phone: [facility] 06-14-2022 09:09-0400 SaO2% (BldA) [Mass fraction] 96 % Tu Canela MD Work Phone: [facility] 06-14-2022 09:09-0400 Systolic blood pressure 180 mm[Hg] Tu Canela MD Work Phone: [facility] 06-09-2022 10:26-0400 Diastolic blood pressure 90 mm[Hg] Nevin Fajardo LIABILITY CLAIMS EX[employer] Work Phone: [facility] 06-09-2022 10:26-0400 Systolic blood pressure 154 mm[Hg] Charlotte Fajardo LIABILITY CLAIMS EX[employer]ER[employer] Work Phone: [facility] 06-09-2022 09:55-0400 Body temperature 97.81 [degF] Nevin Fajardo LIABILITY CLAIMS EX[employer]ER[employer] Work Phone: [facility] 06-09-2022 09:55-0400 Body weight 70.31 kg Charlotte Fajardo LIABILITY CLAIMS EXAM[employer]ER[employer] Work Phone: [facility] 06-09-2022 09:55-0400 Heart rate 89 /min Charlotte Fajardo LIABILITY CLAIMS EX[employer]ER[employer] Work Phone: [facility] 06-07-2022 14:02-0400 Body weight 69.85 kg Tu Canela MD Work Phone: [facility] 06-07-2022 14:02-0400 Diastolic blood pressure 92 mm[Hg] Tu Canela MD Work Phone: [facility] 06-07-2022 14:02-0400 Heart rate 88 /min Tu Canela MD Work Phone: [facility] 06-07-2022 14:02-0400 Systolic blood pressure 152 mm[Hg] Tu Canela MD Work Phone: [facility] 05-30-2022 07:37-0400 Body temperature 97.3 [degF] Dr. Tu Canela Work Phone: [facility] [place] Work Phone: 05-30-2022 07:37-0400 Diastolic blood pressure 75 mm[Hg] Dr. Tu Canela Work Phone: [facility] [place] Work Phone: 05-30-2022 07:37-0400 Heart rate 65 /min Dr. Tu Canela Work Phone: [facility] [place] Work Phone: 05-30-2022 07:37-0400 Respiratory rate 14 /min Dr. Tu Canela Work Phone: [facility] [place] Work Phone: 05-30-2022 07:37-0400 SaO2% (BldA) [Mass fraction] 98 % Dr. Tu Canela Work Phone: [facility] [place] Work Phone: 05-30-2022 07:37-0400 Systolic blood pressure 156 mm[Hg] Dr. Tu Canela Work Phone: [facility] [place] Work Phone: 05-30-2022 05:54-0400 Body height 167.[address] Tu Canela Work Phone: [facility] [place] Work Phone: 05-30-2022 05:54-0400 Body mass index (BMI) [Ratio] 24.5 kg/m2 Dr. Tu Canela Work Phone: [facility] [place] Work Phone: 05-30-2022 05:54-0400 Body weight 68.[address] Tu Canela Work Phone: [facility] [place] Work Phone: Encounters Encounter Date Encounter Type Care Provider Facility Start: 06-11-2025 End: 06-11-2025 ambulatory [facility] Facility:[facility] Start: 06-04-2025 End: 06-04-2025 Patient encounter procedure Jannie Proctor DO Work Phone: [facility] Surgery Comment on above: Symptomatic varicose veins of both lower extremities (Primary Dx) Start: 06-04-2025 End: 06-04-2025 [facility] Facility:[facility] Start: 05-27-2025 End: 05-27-2025 Telephone encounter Jannie Proctor DO Work Phone: [facility] Surgery Comment on above: Radiology Pre Proced ure Instructions Start: 05-19-2025 End: 05-26-2025 Telephone encounter Jannie Proctor DO Work Phone: [facility] Comment on above: Appointment Start: 05-13-2025 End: 05-13-2025 Follow-up encounter Nevin Fajardo APRN.CNP Work Phone: Hematology/Oncology Start: 05-11-2025 ambulatory NEVIN FAJARDO Facilit y:[facility] Start: 05-11-2025 End: 05-11-2025 Subsequent hospital visit by physician Screen Mammo [facility] Mammogram Start: 04-29-2025 End: 04-29-2025 Office outpatient visit 25 minutes Rosie Syed APRN.CNP Work Phone: [facility] Comment on above: Essential (primary) hypertension (Primary Dx); Chronic pain syndrome; Chronic right shoulder pain; Hyperlipidemia, unspecified hyperlipidemia type; Long-term current use of thyroid hormone replacement therapy; Personal history of transient ischemic attack (TIA), and cerebral infarction without residual deficits; Symptomatic varicose veins, unspecified laterality Start: 04-29-2025 End: 04-29-2025 ambulatory ROSIE SYED Facility:[facility] Start: 04-14-2025 End: 04-14-2025 Patient encounter procedure Jannie Proctor DO Work Phone: [facility] Surgery Comment on above: Symptomatic varicose veins of both lower extremities (Primary Dx) Start: 04-14-2025 End: 04-14-2025 ambulatory TU Abdullahi [place] Facility:[facility] Start: 02-13-2025 End: 02-13-2025 Telephone encounter Amy Fry APRN.CNP Work Phone: [facility] Start: 02-12-2025 End: 04-14-2025 Follow-up encounter Tu Canela MD Work Phone: Pulmonology [facility] Start: 02-11-2025 End: 02-11-2025 ambulatory [facility] Facility:[facility] Start: 02-11-2025 End: 02-11-2025 Patient encounter procedure Tu Canela MD Work Phone: [facility] Comment on above: Ischemic stroke (HCC ) (Primary Dx); Anemia, unspecified type; Congestive heart failure, unspecified HF chronicity, unspecified heart failure type (HCC); Hypothyroidism, unspecified type; Primary hypertension; Stage 3a chronic kidney disease (HCC); Chronic pain syndrome; Chronic midline thoracic back pain; SOB (shortness of breath) Start: 02-09-2025 End: 02-09-2025 [facility] TU Fernando [place] Facility:[facility] Start: 02-09-2025 End: 02-09-2025 Patient encounter procedure Jannie Proctor DO Work Phone: Vascular Surgery Comment on above: Symptomatic varicose veins, bilateral (Primary Dx); Venous insufficiency Start: 02-05-2025 End: 02-05-2025 ambulatory [facility] Facility:[facility] Start: 02-05-2025 End: 02-05-2025 Subsequent hospital visit by physician Juanjo [facility] Santy Khoury Work Phone: Radiology Comment on above: Chronic left-sided t horacic back pain [M54.6, G89.29] Start: 02-04-2025 End: 02-04-2025 Telephone encounter Tu Canela MD [facility] [facility] [place] Comment on above: Results Start: 02-04-2025 End: 02-04-2025 [facility] Start: 02-04-2025 End: 02-04-2025 Patient encounter procedure Amy Fry APRN.CNP Work Phone: Cerebrovascular Comment on above: Hemiparesis affectin g left side as late effect of cerebrovascular accident (HCC) (Primary Dx); Intracranial atherosclerosis; Mixed hyperlipidemia; Chronic left-sided thoracic back pain; Occlusion and stenosis of right vertebral artery; Subclavian arterial stenosis (HCC); Primary hypertension; Tobacco use disorder, moderate, in sustained remission Start: 02-03-2025 End: 02-03-2025 ambulatory [facility] Facility:[facility] Start: 01-29-2025 End: 03-31-2025 Follow-up encounter Tu Canela MD Work Phone: Pulmonology [facility] Start: 01-27-2025 End: 03-29-2025 Follow-up encounter Tu Canela MD Work Phone: [facility] [place] Start: 01-27-2025 End: 01-27-2025 Telephone encounter Tu Canela MD Work Phone: [facility] [place] Comment on above: Results Start: 01-26-2025 End: 01-26-2025 Subsequent hospital visit by physician Xr [facility] [place] Work Phone: Radiology Comment on above: Other cough [R05.8] Start: 01-26-2025 End: 01-26-2025 ambulatory TU HILTON Facility:[facility] Start: 01-26-2025 End: 01-26-2025 Patient encounter procedure Tu Canela MD Work Phone: [facility] [place] Comment on above: Ischemic stroke (HCC ) (Primary Dx); Other cerebral infarction (HCC); Primary hypertension; Venous insufficiency; Hyperlipidemia, unspecified hyperlipidemia type; Stage 3a chronic kidney disease (HCC); Hypothyroidism, unspecified type; Malignant neoplasm of upper-outer quadrant of left breast in female, estrogen receptor positive (HCC); History of breast cancer; Other cough; Weight gain; SOB (shortness of breath) Start: 01-23-2025 ambulatory Ananya Ramoshn Facility:[facility] Start: 01-16-2025 End: 01-16-2025 Refill Tu Canela MD Work Phone: [facility] [place] Comment on above: Refill Request Start: 12-19-2024 End: 12-19-2024 Telephone encounter Rosie Syed APRN.CNP Work Phone: [facility] [place] Comment on above: Results Start: 12-17-2024 End: 12-17-2024 Office outpatient visit 25 minutes Rosie Syed APRN.CNP Work Phone: [facility] [place] Comment on above: Primary hypertension (Primary Dx); History of ischemic stroke; Chronic pain syndrome; Leg swelling; Acute cystitis without hematuria Start: 12-17-2024 End: 12-17-2024 ambulatory TU CANELA Facility:[facility] Start: 12-05-2024 End: 12-05-2024 Telephone encounter Tu Canela MD Work Phone: [facility] [place] Comment on above: [facility] verbal oder n eeded Start: 11-24-2024 End: 11-24-2024 Telephone encounter Rosie Syed APRN.[place] Work Phone: [facility] [place] Comment on above: Results Start: 11-21-2024 End: 11-21-2024 ambulatory Eliseo Michele RN Supervisor [employer] Start: 11-21-2024 End: 11-21-2024 Patient encounter procedure Eliseo Michele RN [employer] Comment on above: Transition Of Care ( 25 Outreach Call - Discharged from [facility] date of 10-27-25) Weekly phone contact (Recurring) for Transitional Care Management Start: 11-19-2024 End: 11-19-2024 [facility] Facility:[facility] Start: 11-19-2024 End: 11-19-2024 Subsequent hospital visit by physician Juanjo [facility] [place] Work Phone: Radiology Comment on above: Low back pain withou t sciatica, unspecified back pain laterality, unspecified chronicity [M54.50] Start: 11-19-2024 End: 11-19-2024 ambulatory TU CANELA Facility:[facility] Start: 11-14-2024 End: 11-14-2024 Patient Outreach Eliseo Michele RN Supervisor [employer] Comment on above: Transition Of Care ( Day 18 outreach call - patient discharged from [facility] [place] date of 10-27-24) Weekly phone contact (Recurring) for Transitional Care Management Start: 11-13-2024 End: 11-13-2024 Telephone encounter Tu Canela MD Work Phone: [facility] [place] Comment on above: OT Plan of Care Start: 11-11-2024 End: 11-11-2024 ambulatory Eliseo Michele RN Supervisor [employer] Start: 11-11-2024 End: 11-11-2024 Telephone follow-up Eliseo Michele RN [employer] Comment on above: Transition Of Care ( Escalation follow up call) High Risk phone contact for Transitional Care Management Start: 11-10-2024 End: 11-10-2024 ambulatory Eliseo Michele RN Super[employer] Start: 11-10-2024 End: 11-10-2024 Follow-up encounter Samym NIXONW Primary Care Social Work Comment on above: Need for follow-up b y clinical social worker (Primary Dx); Encounter for support and coordination of transition of care Start: 11-10-2024 End: 11-10-2024 Telephone encounter Tu Canela MD Work Phone: [facility] [place] Comment on above: request verbal order Start: 11-10-2024 End: 11-10-2024 Telephone follow-up Eliseo Michele RN [employer] Comment on above: Transition Of Care ( Day 14 follow up phone call - Discharge date [facility] 10/27/24) Weekly phone contact (Recurring) for Transitional Care Management Start: 11-07-2024 End: 11-07-2024 ambulatory Eliseo Michele RN Super[employer] Start: 11-07-2024 End: 11-11-2024 Telephone encounter Tu Canela MD Work Phone: [facility] [place] Comment on above: Physical Therapy Jailyn n of Care Start: 11-07-2024 End: 11-07-2024 Telephone follow-up Eliseo Michele RN Super[employer] Comment on above: Transition Of Care ( Day 11 follow up phone call - patient discharged from [facility] [place] on 10-27-24) Weekly phone contact (Recurring) for Transitional Care Management Start: 11-06-2024 End: 11-06-2024 Telephone encounter Tu Canela MD Work Phone: [facility] [place] Comment on above: skilled nurse plan o f care ; Orders Start: 11-03-2024 End: 11-03-2024 ambulatory [facility] Facility:[facility] Start: 11-03-2024 End: 11-03-2024 Patient encounter procedure Aylin Paz LIABILITY CLAIMS EXAMINER.[place] Work Phone: Neurology [facility] Comment on above: Lacunar stroke (HCC) (Primary Dx); Primary hypertension; Smoking; Hyperlipidemia, unspecified hyperlipidemia type Start: 10-31-2024 End: 10-31-2024 Transitional care manage srvc 14 day discharge Rosie Syed LIABILITY CLAIMS EXAMINER.[place] Work Phone: [facility] [place] Comment on above: Ischemic stroke (HCC ) (Primary Dx); Primary hypertension; Lung nodules; Tobacco abuse Start: 10-31-2024 End: 10-31-2024 ambulatory TU CANELA Facility:[facility] Start: 10-30-2024 End: 10-31-2024 Telephone encounter Tu Canela MD Work Phone: Supervisor [employer] Comment on above: Patient Update ([facility] needs additional information faxed) home health calling, PCP to follow patient Start: 10-29-2024 End: 10-29-2024 ambulatory Eliseo Michele RN Supervisor [employer] Start: 10-29-2024 End: 10-29-2024 Coordination of care plan Sammy Sampson BUSINESS CONTINUITY MANAGER Primary Care Social Work Comment on above: Encounter for suppor t and coordination of transition of care (Primary Dx) Single phone contact for Transitional Care Management Start: 10-28-2024 End: 10-28-2024 ambulatory Eliseo Michele RN Supervisor [employer] Start: 10-28-2024 End: 10-28-2024 Coordination of care plan Sammy LIMA Primary Care Social Work Comment on above: Encounter for suppor t and coordination of transition of care (Primary Dx) Transition Of Care ( Initial outreach call- Patient discharged from [facility] [place] on 10-27-24) Initial phone contact for Transitional Care Management Start: 10-20-2024 End: 10-27-2024 Evaluation and management of inpatient TU Abdullahi [facility] Facility:[facility] Start: 10-19-2024 End: 10-19-2024 Admission to same day surgery center Jose Little MD Work Phone: Neurosurgery Comment on above: Acute left-sided wea kness [R53.1] (Primary Dx) Start: 10-19-2024 End: 10-19-2024 Telemedicine consultation with patient Jose Little MD Work Phone: Neurosurgery Start: 10-19-2024 End: 10-20-2024 Emergency department patient visit TU Fernando [facility] Facility:[facility] Start: 10-14-2024 End: 10-14-2024 Telephone encounter Tu Canela MD Work Phone: [facility] [place] Comment on above: Orders (Handicap Jailyn card/Handicap credit collection associate Plate) Start: 09-22-2024 End: 09-22-2024 ambulatory Eliseo Michele RN [employer] Comment on above: CDM (Telephonic Outr each ) Start: 09-18-2024 End: 09-18-2024 Telephone encounter Tu Canela MD Work Phone: [facility] [place] Comment on above: Patient Call Start: 09-17-2024 End: 09-17-2024 ambulatory ROSIE SYED Facility:[facility] Start: 09-17-2024 End: 09-17-2024 Office outpatient visit 25 minutes Rosie Syed APRN.CNP Work Phone: [facility] [place] Comment on above: Primary hypertension (Primary Dx); Leg swelling; Postoperative hypothyroidism; Dry skin Start: 09-17-2024 End: 09-17-2024 ambulatory [facility] Start: 09-08-2024 End: 09-08-2024 ambulatory Eliseo Michele pr internshipSupervisor [employer] Comment on above: CDM (Telephonic Outr each ) Start: 09-05-2024 End: 09-05-2024 ambulatory Eliseo Michele pr internshipSupervisor [employer] Comment on above: CDM (Telephonic Outr each ) Start: 08-25-2024 End: 08-25-2024 Refill Tu Canela MD Work Phone: [facility] [place] Comment on above: Refill Request Start: 08-12-2024 End: 08-12-2024 Office outpatient visit 15 minutes Rosie Syed LIABILITY CLAIMS EXAMINER.[place] Work Phone: [facility] [place] Comment on above: Primary hypertension (Primary Dx); Need for influenza vaccination; Eustachian tube dysfunction, bilateral Start: 08-12-2024 End: 08-12-2024 [facility] Start: 08-08-2024 End: 08-08-2024 ambulatory Eliseo Michele RN Supervisor [employer] Comment on above: CDM (Telephonic Outr each ) Start: 07-28-2024 End: 07-28-2024 ambulatory Eliseo Michele RN Supervisor [employer] Comment on above: CDM (Telephonic Outr each ) Start: 07-25-2024 End: 07-25-2024 ambulatory Eliseo Michele RN Supervisor [employer] Comment on above: CDM (Telephonic Outr each ) Start: 07-22-2024 End: 07-22-2024 Refill Tu Canela MD Work Phone: [facility] [place] Comment on above: Refill Request Start: 07-09-2024 End: 07-09-2024 Office outpatient visit 15 minutes Rosie Syed LIABILITY CLAIMS EXAMINER.[place] Work Phone: [facility] [place] Comment on above: Primary hypertension (Primary Dx) Start: 07-09-2024 End: 07-09-2024 [facility] Facility:[facility] Start: 07-04-2024 End: 07-04-2024 ambulatory Tu Canela MD Work Phone: [employer] Comment on above: Allied Health Visit (Medication Adherence Outreach ) Start: 07-03-2024 End: 07-03-2024 ambulatory Eliseo Michele RN Supervisor [employer] Comment on above: CDM (Telephonic Outr each) Start: 07-01-2024 End: 07-01-2024 Office outpatient visit 25 minutes Rosie Syed APRN.[place] Work Phone: Family Medicine [place] Comment on above: Primary hypertension (Primary Dx) Start: 07-01-2024 End: 07-01-2024 ambulatory ROSIE SYED Facility:[facility] Start: 06-21-2024 ambulatory Eliseo Michele RN Amb ulatory Care Management Comment on above: CDM (Telephonic Outr each ) Start: 06-20-2024 ambulatory Eliseo Michele RN Amb ulatory Care Management Comment on above: CDM (Telephonic Outr each ) Start: 06-16-2024 Refill Tu Canela MD Work Phone: [facility] [place] Comment on above: Refill Request Start: 06-05-2024 ambulatory [facility]y Tabares [facility] Start: 06-05-2024 Patient encounter procedure Zeny Tabares MA [facility] Comment on above: Population Health Na vigation Outreach ([place] AWV/HCC and care gaps ) Start: 06-04-2024 ambulatory Iveth Galindo RN Work Phone: Supervisor [employer] Comment on above: Community Monitoring Outreach Start: 05-26-2024 Telephone encounter Rosie cha APRN.[place] Work Phone: Family Medicine [place] Comment on above: Medication Question Start: 05-07-2024 End: 05-07-2024 ambulatory Nevin Fajardo APRN.[place] Work Phone: Hematology/Oncology Comment on above: Personal history of breast cancer (Primary Dx); Encounter for screening mammogram for high-risk patient Start: 05-07-2024 End: 05-07-2024 Patient encounter procedure Nevin Fajardo APRN.[place] Work Phone: Hematology/Oncology Start: 05-06-2024 Documentation procedure Mammog neelima Coordinator [facility] Start: 05-06-2024 Letter encounter Mammography Coordinator [facility] Start: 05-06-2024 Telephone encounter Nevin han APRN.[place] Work Phone: Hematology/Oncology Start: 05-05-2024 End: 05-05-2024 Subsequent hospital visit by physician Screen Mammo [facility] Comment on above: Personal history of breast cancer [Z85.3] Start: 04-30-2024 ambulatory Eliseo Michele RN Amb ulatory Care Management Comment on above: CDM (Telephonic Outr each ) Start: 04-02-2024 ambulatory Eliseo Michele RN Amb ulatory Care Management Comment on above: CDM (Telephonic Outr each ) Start: 03-24-2024 Telephone encounter Rosie cha APRN.CNP Work Phone: [facility] [place] Comment on above: Results Start: 03-19-2024 End: 03-19-2024 Office outpatient visit 25 minutes Rosie Syed APRN.[place] Work Phone: Family Medicine [place] Comment on above: Primary hypertension (Primary Dx); Chronic pain syndrome; Multiple thyroid nodules; Hyperglycemia; Hyperlipidemia, unspecified hyperlipidemia type Start: 03-17-2024 Refill Tu Canela MD Work Phone: [facility] [place] Comment on above: Refill Request Start: 02-20-2024 Refill Tu Canela MD Work Phone: Supervisor [employer] Comment on above: Refill Request CDM (Telephonic Outr each ) Start: 01-25-2024 ambulatory Eliseo Michele RN Amb ulatory Care Management Comment on above: CDM (Telephonic Outr each ) Refill Request Start: 01-24-2024 ambulatory Eliseo Michele RN Amb ulatory Care Management Comment on above: CDM (Telephonic Outr each ) Start: 01-10-2024 ambulatory Eliseo Michele RN Amb ulatory Care Management Comment on above: CDM (Telephonic Outr each ) Start: 01-09-2024 ambulatory Eliseo Michele RN Amb ulatory Care Management Comment on above: CDM (Telephonic Outr each ) Start: 12-17-2023 Refill Tu Canela MD Work Phone: [facility] Comment on above: Refill Request Start: 11-24-2023 End: 07-11-2024 Telephone encounter Aneta Brown PA-C Work Phone: [facility] Comment on above: Results Start: 11-13-2023 End: 11-13-2023 Emergency department patient visit [facility] Work Phone: Start: 11-06-2023 End: 11-08-2023 ambulatory TU CANELA Facility:[facility] Start: 10-24-2023 ambulatory Eliseo Michele RN Amb ulatory Care Management Comment on above: CDM (Telephonic Outr each ) Start: 10-23-2023 ambulatory Eliseo Michele RN Amb ulatory Care Management Comment on above: CDM (Telephonic Outr each) Start: 09-25-2023 End: 09-25-2023 ambulatory Nevin Fajardo APRN.CNP Work Phone: Hematology/Oncology Comment on above: Personal history of breast cancer (Primary Dx); Encounter for screening mammogram for high-risk patient Start: 09-25-2023 End: 09-25-2023 Patient encounter procedure Nevin Fajardo APRN.CNP Work Phone: [facility] Start: 09-24-2023 ambulatory Eliseo Michele RN Amb ulatory Care Management Comment on above: CDM (Telephonic Outr each ) Start: 08-17-2023 ambulatory Eliseo Michele RN Amb ulatory Care Management Comment on above: CDM (Telephonic Outr each ) Start: 07-31-2023 End: 07-31-2023 Patient encounter procedure Aneta Brown PA-C Work Phone: [facility] Comment on above: Encounter for immuni zation (Primary Dx); Primary hypertension; Hyperglycemia; Hyperlipidemia, unspecified hyperlipidemia type; Stage 3 chronic kidney disease, unspecified whether stage 3a or 3b CKD (HCC); Postoperative hypothyroidism; Peripheral arterial disease (HCC); Malignant neoplasm of upper-outer quadrant of left breast in female, estrogen receptor positive (HCC) Start: 07-24-2023 ambulatory Eliseo Michele RN Amb ulatory Care Management Comment on above: CDM (Telephonic Outr each ) Start: 07-10-2023 End: 07-10-2023 Patient encounter procedure Jannie Proctor DO Work Phone: Vascular Surgery Comment on above: Symptomatic varicose veins of both lower extremities (Primary Dx) Start: 07-03-2023 End: 07-03-2023 Office outpatient visit 25 minutes Rosie Syed APRN.[place] Work Phone: [facility] Comment on above: Primary hypertension (Primary Dx) Start: 06-26-2023 ambulatory Eliseo Michele RN Amb ulatory Care Management Comment on above: CDM (Telephonic Outr each ) Start: 06-25-2023 ambulatory Eliseo Michele RN Amb ulatory Care Management Comment on above: CDM (Telephonic Outr each ) Start: 05-29-2023 End: 05-29-2023 Patient encounter procedure Fredi Pierce MD Work Phone: General Surgery Comment on above: Hernia of abdominal wall (Primary Dx) Start: 05-29-2023 End: 05-29-2023 Office outpatient visit 25 minutes Rosie Syed APRN.[place] Work Phone: [facility] Comment on above: Primary hypertension Start: 05-23-2023 ambulatory Eliseo Michele RN Amb ulatory Care Management Comment on above: CDM (Telephonic Outr each ) Start: 05-22-2023 ambulatory Eliseo Michele RN Amb ulatory Care Management Comment on above: CDM (Telephonic Outr each ) Start: 05-08-2023 Telephone encounter Jannie Proctor DO Work Phone: Vascular Surgery Comment on above: pre-procedure call Start: 05-08-2023 End: 05-08-2023 Patient encounter procedure [facility] Work Phone: Plastic Surgery Comment on above: Cellulitis of right leg (Primary Dx); Chronic obstructive pulmonary disease, unspecified COPD type (HCC); Essential hypertension, benign; Hyperlipidemia, unspecified hyperlipidemia type; Psoriasis; Other chronic pain; Malignant neoplasm of upper-outer quadrant of left breast in female, estrogen receptor positive (HCC) Start: 05-04-2023 Documentation procedure Mammog neelima Coordinator [facility] Start: 05-04-2023 Letter encounter Mammography Coordinator [facility] Start: 05-04-2023 Telephone encounter Nevin han APRN.CNP Work Phone: Hematology/Oncology Comment on above: Results Start: 05-02-2023 End: 05-02-2023 Office outpatient visit 25 minutes Rosie Syed APRN.[place] Work Phone: [facility] [place] Comment on above: Primary hypertension (Primary Dx) Start: 04-16-2023 ambulatory Guerda Francisco RN Work Phone: Supervisor [employer] Comment on above: Community Monitoring Outreach (Telephonic Outreach CDM Home Monitoring) Start: 03-22-2023 End: 03-22-2023 ambulatory Nevin Fajardo APRN.[place] Work Phone: Hematology/Oncology Comment on above: Personal history of breast cancer (Primary Dx); Encounter for screening mammogram for high-risk patient; Stage 3a chronic kidney disease (HCC) Start: 03-22-2023 End: 03-22-2023 Patient encounter procedure Nevin Fajardo APRN.[place] Work Phone: [facility] Start: 03-19-2023 ambulatory Guerda Francisco RN Work Phone: Supervisor [employer] Comment on above: Community Monitoring Outreach (Telephonic Outreach CDM Home Monitoring) Start: 03-13-2023 End: 03-13-2023 Patient encounter procedure Fredi Pierce MD Work Phone: General Surgery Comment on above: Hernia of abdominal wall Start: 03-02-2023 Telephone encounter Tu Canela MD Work Phone: [facility] [place] Comment on above: Results Start: 03-02-2023 End: 03-02-2023 Patient encounter procedure Tu Canela MD Work Phone: [facility] [place] Comment on above: Hyperglycemia (Prima ry Dx); Venous insufficiency; Urinary urgency; Primary hypertension; Hyperlipidemia, unspecified hyperlipidemia type; Urinary retention; Stage 3a chronic kidney disease (HCC); Postoperative hypothyroidism; Hernia of abdominal wall Start: 02-23-2023 Telephone encounter Jannie Proctor DO Work Phone: Vascular Surgery Comment on above: Insurance Authorizat ion (Compression stocking ) Start: 02-15-2023 Refill Guerda Francisco RN Work Phone: Supervisor [employer] Comment on above: Refill Request Community Monitoring Outreach (Telephonic Outreach CDM Home Monitoring) Patient Question (An y lab work needed prioir to OV 02/21/23?) Start: 02-13-2023 End: 02-13-2023 Patient encounter procedure Jannie Proctor DO Work Phone: Vascular Surgery Comment on above: Symptomatic varicose veins of both lower extremities (Primary Dx) Start: 01-18-2023 ambulatory Linette schumacher RN Work Phone: Supervisor [employer] Comment on above: Community Monitoring Outreach (Enrollment H@H) Start: 01-16-2023 End: 01-16-2023 Patient encounter procedure [facility] Work Phone: Plastic Surgery Comment on above: Cellulitis of right leg (Primary Dx); Chronic obstructive pulmonary disease, unspecified COPD type (HCC); Essential hypertension, benign; Hyperlipidemia, unspecified hyperlipidemia type; Psoriasis; Other chronic pain Start: 01-09-2023 End: 01-09-2023 Patient encounter procedure Jannie Proctor DO Work Phone: Vascular Surgery Comment on above: Venous (peripheral) insufficiency (Primary Dx); Peripheral arterial disease (HCC) Start: 12-19-2022 End: 12-19-2022 Patient encounter procedure [facility] Work Phone: Plastic Surgery Comment on above: Cellulitis of right leg (Primary Dx); Chronic obstructive pulmonary disease, unspecified COPD type (HCC); Essential hypertension, benign; Hyperlipidemia, unspecified hyperlipidemia type; Psoriasis; Other chronic pain Start: 12-13-2022 Telephone encounter Tu Canela MD Work Phone: [facility] Comment on above: Results Start: 12-11-2022 End: 12-11-2022 ambulatory [facility] Work Phone: Start: 12-11-2022 End: 12-11-2022 Patient encounter procedure [facility]-Laboratory, Specimen Start: 12-05-2022 End: 12-05-2022 ambulatory [facility] Work Phone: Start: 12-05-2022 End: 12-05-2022 Patient encounter procedure [facility]-Laboratory, Specimen Start: 11-20-2022 End: 11-20-2022 ambulatory [facility] Work Phone: Start: 11-20-2022 End: 11-20-2022 Patient encounter procedure [facility]-Laboratory, Specimen Start: 11-16-2022 Patient Outreach Zenia Wolfe mbulatory Care Management Comment on above: Transition Of Care ( TCM Initial Outreach: [facility] 11/15/22, Cellulitis of right lower leg/) Start: 10-03-2022 Telephone encounter Tu Canela MD Work Phone: [facility] [place] Comment on above: FYI-No Action Needed Start: 07-25-2022 Telephone encounter Tu Canela MD Work Phone: [facility] [place] Comment on above: Blood Pressure Start: 07-25-2022 End: 07-25-2022 Nursing evaluation of patient and report Mi Nurse Work Phone: [facility] [place] Comment on above: Primary hypertension (Primary Dx) Start: 07-05-2022 Telephone encounter Jere Ellis MD Work Phone: [facility] [place] Comment on above: Blood Pressure Check ; Appointment Start: 07-01-2022 Telephone encounter Tu Canela MD Work Phone: [facility] [place] Comment on above: Results Start: 06-26-2022 Orders Only Tu Canela MD Work Phone: [facility] [place] Comment on above: Hyponatremia (Primar y Dx) Start: 06-14-2022 End: 06-14-2022 Patient encounter procedure Tu Canela MD Work Phone: [facility] Comment on above: Primary hypertension (Primary Dx); Ectatic aorta (HCC); Fatty liver; Renal cyst; Venous insufficiency Start: 06-09-2022 End: 06-09-2022 ambulatory Nevin Fajardo APRN.[place] Work Phone: Hematology/Oncology Comment on above: Malignant neoplasm o f upper-outer quadrant of left breast in female, estrogen receptor positive (HCC) (Primary Dx) Start: 06-09-2022 End: 06-09-2022 Patient encounter procedure Nevin Fajardo APRN.[place] Work Phone: [facility] Start: 06-07-2022 End: 06-07-2022 Patient encounter procedure Tu Canela MD Work Phone: [facility] Comment on above: Left before treatmen t completed (Primary Dx) Start: 05-30-2022 Non-patient / Non-visit Dr. Chey Canela Work Phone: [facility]-BGI Start: 05-30-2022 End: 05-30-2022 Admission to same day surgery center Dr. Tu Canela Work Phone: [facility]-Endoscopy Start: 05-17-2022 Telephone encounter Tu Canela MD Work Phone: [facility] Comment on above: Results Start: 05-16-2022 End: 05-16-2022 Subsequent hospital visit by physician Ct Prep [facility] Cat Scan Comment on above: Malignant neoplasm o f upper-outer quadrant of left breast in female, estrogen receptor positive (HCC) [C50.412, Z17.0] Start: 05-02-2022 Documentation procedure Mammog neelima Coordinator [facility] Start: 05-02-2022 Letter encounter Mammography Coordinator [facility] Department Start: 05-02-2022 End: 05-02-2022 Subsequent hospital visit by physician Screen Mammo [facility] Mammogram Comment on above: Malignant neoplasm o f upper-outer quadrant of left breast in female, estrogen receptor positive (HCC) [C50.412, Z17.0] Start: 04-17-2022 End: 04-17-[address] Tu Canela Work Phone: [facility] Gastroenterology Start: 04-12-2022 End: 04-12-2022 Patient encounter procedure [facility]-Cardiovascular Services Start: 03-16-2022 Telephone encounter Tu Canela MD Work Phone: [facility] [place] Comment on above: Colonoscopy appt Start: 11-30-2021 End: 11-30-2021 Subsequent hospital visit by physician [facility] Work Phone: Radiology Comment on above: Edema, unspecified t ype [R60.9] Procedures Date Procedure Procedure Detail Performing Clinician Start: 12-17-2024 Urnls dip stick/tabl et rgnt auto w/o microscopy Rosie Syed LIABILITY CLAIMS EXAMINER.[place] [employer] Work Phone: Start: 11-13-2023 CT angiography of ch est with contrast Start: 07-31-2023 INFLUENZA VACCINE, P RSV FREE, AGE 65+ YR, HIGH DOSE, QUADRIVALENT (FLUZONE HIGH-DOSE) M Davin Brown PA-C Work Phone: Start: 05-30-[address] Joseluis Canela Work Phone: Start: 05-16-2022 Ct abdomen & pelvis w/contrast material Tu Canela MD Work Phone: Start: 05-10-2022 Adult depression scr eening assessment Ct Wstr Start: 05-02-2022 Screening mammograph y bi 2-view breast inc bryan Fajardo LIABILITY CLAIMS EXAMINER.[place] [employer] Work Phone: Start: 11-30-2021 Radex ankle complete minimum 3 views Tu Canela MD Work Phone: Start: 07-30-2018 Adult depression scr eening assessment Tu Canela MD Work Phone: Investigation of transfusion reaction Investigation of transfusion reaction Investigation of transfusion reaction Microbial culture, routine Microbial culture, routine Microbial culture, routine Plan of Treatment Date Care Activity Detail Author Start: 02-04-2028 Diabetes Screening Diabetes Screening [facility] Start: 01-27-2028 Diabetes Screening Diabetes Screening [facility] Start: 10-24-2027 Diabetes Screening Diabetes Screening [facility] Start: 10-19-2027 Diabetes Screening Diabetes Screening [facility] Start: 09-17-2027 Diabetes Screening Diabetes Screening [facility] Start: 03-19-2027 Diabetes Screening Diabetes Screening [facility] Start: 11-07-2026 Diabetes Screening Diabetes Screening [facility] Start: 03-02-2026 DIABETES SCREEN DIABETES SCREEN [facility] Start: 03-02-2026 Diabetes Screening Diabetes Screening [facility] Start: 02-27-2026 DIABETES SCREEN DIABETES SCREEN [facility] Start: 11-13-2025 DIABETES SCREEN DIABETES SCREEN [facility] Start: 08-06-2025 End: 08-06-2025 Patient encounter procedure 08/06/2025 10:30 AM EDT Office Visit Cerebrovascular [address] [place], [place] [id number] Amy Fry, LIABILITY CLAIMS EXAMINER.[employer] [address] [place] [id number] 6 month follow up after XR Thoracic Cerebrovascular Comment on above: 6 month follow up after XR Thoracic Start: 07-29-2025 End: 07-29-2025 Patient encounter procedure 07/29/2025 10:00 AM EDT Office Visit Family [facility] [address] [place] [address] Rosie Syed, LIABILITY CLAIMS EXAMINER.[place] [address] [place] [address] 3 mo follow up (40 min per CH) [facility] Comment on above: 3 mo follow up (40 min per CH) Start: 07-25-2025 DIABETES SCREEN DIABETES SCREEN [facility] Start: 07-13-2025 Influenza vaccination Influenza Vaccine (#1) [facility] Start: 06-19-2025 DIABETES SCREEN DIABETES SCREEN [facility] Start: 06-19-2025 End: 06-19-2025 Patient encounter procedure Cardiology Comment on above: Dx: Congestive heart failure, unspecifie d HF chronicity, unspecified heart failure type (HCC) [I50.9] 1st attempt LMOVM 05/06 [place] Dx: Congestive heart failure, unspecified HF chronicity, unspecified heart failure type (HCC) [I50.9] Start: 06-14-2025 DIABETES SCREEN DIABETES SCREEN [facility] Start: 06-11-2025 End: 06-11-2025 Patient encounter procedure 06/11/2025 9:00 AM EDT Office Visit Vasculary Surgery [address] [place] [address] g Vasculary Surgery Comment on above: g Start: 06-04-2025 End: 06-04-2025 Patient encounter procedure 06/04/2025 11:00 AM EDT Office Visit Vascular Surgery [address] [address] Jannie Proctor, DO [address] [place] [address] EVLT LEFT Vascular Surgery Comment on above: EVLT LEFT Start: 05-16-2025 DIABETES SCREEN DIABETES SCREEN [facility] Start: 05-12-2025 End: 05-12-2025 ambulatory Hematology/Oncology Comment on above: 1 YR OV* / MAMMO DONE 05/06 1 YR OV/MAMM 05/11* Start: 05-08-2025 End: 05-08-2025 ambulatory 05/08/2025 10:00 AM EDT Visit (SP) Office Hematology/Oncology [address] [place] [address] Nevin Fajardo APRN.[place] [address] [place] [address] 1 YR OV* / MAMMO DONE 05/06 Hematology/Oncology Comment on above: 1 YR OV* / MAMMO DONE 05/06 Start: 05-06-2025 End: 05-06-2025 Patient encounter procedure 05/06/2025 10:10 AM EDT Appointment Mammogram [address] [place] [address] MAMMO Mammogram Comment on above: MAMMO Start: 05-01-2025 End: 11-30-2025 CT Chest WO contrast CT CHEST WO IVCON Radiology Routine Lung nodules Expected: 05/01/2025, Expires: 11/30/2025 Work Phone: Comment on above: Expected: 05/01/2025, Expires: Start: 04-28-2025 End: 04-28-2025 Patient encounter procedure 04/28/2025 10:20 AM EDT [facility] [address] [place], [place] [phone] Rosie Syed APRN.[place] [address] [place] [address] 3 mo follow up [facility] [place] Comment on above: 3 mo follow up Start: 04-14-2025 End: 04-14-2025 Patient encounter procedure Vasculary Surgery Comment on above: AND FOLLOW UP Start: 03-13-2025 End: 03-13-2025 Patient encounter procedure 03/13/2025 9:20 AM EDT Office Visit [facility] [address] [place] [phone] Ha Amyaa PA-C [address] [place] [phone] Dx: 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, G89.29] [facility] Comment on above: Dx: Chronic midline thoracic back pain [ M54.6, G89.29] Start: 03-07-2025 End: 06-06-2025 CBC W Auto Differential panel - Blood COMPLETE BLOOD COUNT AND DIFFERENTIAL Lab Routine Anemia, unspecified type Expected: 03/07/2025, Expires: 06/06/2025 Work Phone: Comment on above: Expected: 03/07/2025, Expires: Start: 03-07-2025 End: 06-06-2025 Ferritin [Mass/volume] in Serum or Plasma FERRITIN Lab Routine Anemia, unspecified type Expected: 03/07/2025, Expires: 06/06/[address] [facility] Comment on above: Expected: 03/07/2025, Expires: Start: 03-07-2025 End: 06-06-2025 Iron and Iron binding capacity panel - Serum or Plasma IRON AND TIBC Lab Routine Anemia, unspecified type Expected: 03/07/2025, Expires: 06/06/[address] [facility] Comment on above: Expected: 03/07/2025, Expires: Start: 03-07-2025 End: 06-06-2025 RETICULOCYTE COUNT RETICULOCYTE COUNT Lab Routine Anemia, unspecified type Expected: 03/07/2025, Expires: 06/06/[address] [facility] Comment on above: Expected: 03/07/2025, Expires: Start: 02-11-2025 End: 02-11-2025 Patient encounter procedure 02/11/2025 2:00 PM EDT Office Visit [facility] [place] [address] [place], [place] [phone] Tu Canela MD [address] [place], [place] [phone] 2 week f/u [facility] [place] Comment on above: 2 week f/u Start: 02-09-2025 End: 02-09-2025 Patient encounter procedure 02/09/2025 10:00 AM EDT Office Visit Vascular Surgery [address] [address] Jannie Proctor, DO [address] [place] [address] Venous insufficiency [I87.2] Vascular Surgery Comment on above: Venous insufficiency [I87.2] Start: 02-05-2025 End: 02-05-2025 Patient encounter procedure 02/05/2025 10:10 AM EDT Appointment Radiology [address] [place], [place] [address] XRAY Radiology Comment on above: XRAY Start: 02-04-2025 End: 05-06-2025 Lipid 1996 panel - Serum or Plasma LIPID PANEL, FASTING Lab Routine Mixed hyperlipidemia Expected: 02/04/2025, Expires: 05/06/2025 Work Phone: Comment on above: Expected: 02/04/2025, Expires: Start: 02-04-2025 End: 02-04-2025 Patient encounter procedure 02/04/2025 10:30 AM EDT Office Visit Cerebrovascular [address] [place] [address] Amy Fry APRN.[place] [address] [place] [address], [place] [address] 3 month follow up Cerebrovascular Comment on above: 3 month follow up Start: 02-03-2025 End: 02-03-2025 ambulatory 02/03/2025 10:15 AM EDT Results Only [place] Zelaya [facility] [address] [place] [address] Dr Hilton Ingram [facility] Comment on above: Dr Hilton Ingram Start: 01-27-2025 End: 04-28-2025 Basic metabolic 2000 panel - Serum or Plasma BASIC METABOLIC PANEL Lab Routine Anemia, unspecified type Congestive heart failure, unspecified HF chronicity, unspecified heart failure type (HCC) Expected: 01/27/2025, Expires: 04/28/2025 Work Phone: Comment on above: Expected: 01/27/2025, Expires: Start: 01-27-2025 End: 01-27-2026 CBC W Auto Differential panel - Blood COMPLETE BLOOD COUNT AND DIFFERENTIAL Lab Routine Anemia, unspecified type Congestive heart failure, unspecified HF chronicity, unspecified heart failure type (HCC) Expected: 01/27/2025, Expires: 01/27/[address] [facility] Comment on above: Expected: 01/27/2025, Expires: Start: 01-27-2025 End: 01-27-2026 Cobalamin (Vitamin B12) [Mass/volume] in Serum or Plasma VITAMIN B12 Lab Routine Anemia, unspecified type Congestive heart failure, unspecified HF chronicity, unspecified heart failure type (HCC) Expected: 01/27/2025, Expires: 01/27/[address] [facility] Comment on above: Expected: 01/27/2025, Expires: Start: 01-27-2025 End: 01-27-2026 Ferritin [Mass/volume] in Serum or Plasma FERRITIN Lab Routine Anemia, unspecified type Congestive heart failure, unspecified HF chronicity, unspecified heart failure type (HCC) Expected: 01/27/2025, Expires: 01/27/[address] [facility] Comment on above: Expected: 01/27/2025, Expires: Start: 01-27-2025 End: 01-27-2026 Folate [Mass/volume] in Serum or Plasma FOLATE, SERUM Lab Routine Anemia, unspecified type Congestive heart failure, unspecified HF chronicity, unspecified heart failure type (HCC) Expected: 01/27/2025, Expires: 01/27/[address] [facility] Comment on above: Expected: 01/27/2025, Expires: Start: 01-27-2025 End: 01-27-2026 Hemoglobin.gastrointes tinal.lower [Presence] in Stool by Immunoassay IMMUNOCHEMICAL FECAL OCCULT BLOOD TEST Lab Routine Anemia, unspecified type Congestive heart failure, unspecified HF chronicity, unspecified heart failure type (HCC) Expected: 01/27/2025, Expires: 01/27/[address] [facility] Comment on above: Expected: 01/27/2025, Expires: Start: 01-27-2025 End: 01-27-2026 Iron and Iron binding capacity panel - Serum or Plasma IRON AND TIBC Lab Routine Anemia, unspecified type Congestive heart failure, unspecified HF chronicity, unspecified heart failure type (HCC) Expected: 01/27/2025, Expires: 01/27/[address] [facility] Comment on above: Expected: 01/27/2025, Expires: Start: 01-26-2025 End: 01-26-2025 Patient encounter procedure 01/26/2025 3:00 PM EDT Office Visit [facility] [place] [address] [place] [address] Tu Canela MD [address] [place] [phone] 4 wk BP check [facility] [place] Comment on above: 4 wk BP check Start: 01-26-2025 End: 04-27-2025 Basic metabolic 2000 panel - Serum or Plasma [facility] Comment on above: Expected: 01/26/2025, Expires: Start: 01-26-2025 End: 04-27-2025 CBC W Auto Differential panel - Blood [facility] Comment on above: Expected: 01/26/2025, Expires: Start: 01-26-2025 End: 04-27-2025 Natriuretic peptide.B prohormone N-Terminal [Mass/volume] in Serum or Plasma [facility] Comment on above: Expected: 01/26/2025, Expires: Start: 01-26-2025 End: 04-27-2025 Thyrotropin [Units/volume] in Serum or Plasma [facility] Comment on above: Expected: 01/26/2025, Expires: Start: 01-14-2025 End: 01-14-2025 Patient encounter procedure 01/14/2025 11:00 AM EST Office Visit Family [facility] [address] [place] [address] Tu Canela MD [address] [place] [address] 4 wk BP check (40min per CH) [facility] Comment on above: 4 wk BP check (40min per CH) Start: 12-17-2024 End: 12-17-2024 Patient encounter procedure 12/17/2024 10:20 AM EST Office Visit Family [facility] [address] [place] [address] Rosie Syed APRN.[place] [address] [place] [address] 4 wk BP check (40min per CH) Family [facility] [place] Comment on above: 4 wk BP check (40min per CH) Start: 11-19-2024 End: 11-19-2024 Patient encounter procedure [facility] [place] Comment on above: 3 wk BP check 3 wk BP check (40min per CH) Start: 11-14-2024 End: 11-14-2024 Patient encounter procedure 11/14/2024 10:40 AM EST Office Visit [facility] [place] [address] [facility] [place] [place] [address] Rosie Syed, LIABILITY CLAIMS EXAMINER.[place] [address] [facility] [place] [address] 2 week BP check [facility] [place] Comment on above: 2 week BP check Start: 11-12-2024 Advance Directive Discussion Advance Directive Discussion [facility] Start: 11-12-2024 Medicare Advantage Annual Wellness Visit Medicare Advantage Annual Wellness Visit [facility] Start: 11-03-2024 End: 11-03-2024 Patient encounter procedure 11/03/2024 2:00 PM EST Office Visit Neurology [facility] [address] [place] [address] Aylin Paz, CHANDLER.[place] [address] [place] [address] 0-2 week hospital discharge f/u per russell wilkes 10/21/24 Neurology [facility] Comment on above: 0-2 week hospital discharge f/u per russell wilkes 10/21/24 Start: 11-01-2024 DIABETES SCREEN DIABETES SCREEN [facility] Start: 10-31-2024 End: 10-31-2024 Patient encounter procedure 10/31/2024 10:20 AM EST Office Visit [facility] [place] [address] [facility] [place] [place] [address] Rosie Syed, LIABILITY CLAIMS EXAMINER.[place] [address] [place] [address] f/u ([facility] dx: CVA) [facility] [place] Comment on above: f/u ([facility] dx: CVA) Start: 10-21-2024 End: 10-21-2024 Patient encounter procedure [facility] [place] Comment on above: 1 month follow up Start: 09-17-2024 End: 09-17-2024 Patient encounter procedure [facility] [place] Comment on above: 6 month follow up Annual Medicare Well ness Start: 08-12-2024 End: 08-12-2024 Patient encounter procedure 08/12/2024 11:00 AM EDT Office Visit [facility] [place] [address] [place] [address] Rosie Syed, LIABILITY CLAIMS EXAMINER.[place] [address] [place], [place] [address] 1 week follow up [facility] [place] Comment on above: 1 week follow up Start: 08-06-2024 End: 08-06-2024 Patient encounter procedure 08/06/2024 10:00 AM EDT Office Visit [facility] [place] [address] [place] [address] Rosie Syed, LIABILITY CLAIMS EXAMINER.[place] [address] [place], [place] [id number] 1 week follow up [facility] [place] Comment on above: 1 week follow up Start: 07-31-2024 Annual PCP Team Chronic Disease Visit Annual PCP Team Chronic Disease Visit [facility] Start: 07-31-2024 Shingrix Vaccine (2 of 3) Shingrix Vaccine (2 of 3) [facility] Comment on above: Postponed from 10/09/2013 (Insurance Cov erage) Start: 07-31-2024 Urine microalbumin profile DTaP,Tdap,Td Vaccine (2 - Tdap) [facility] Comment on above: Postponed from 09/03/2022 (Insurance Cov erage) Start: 07-13-2024 Influenza vaccination Influenza Vaccine (#1) [facility] Start: 07-09-2024 End: 07-09-2024 Patient encounter procedure 07/09/2024 1:00 PM EDT Office Visit [facility] [place] [address] [place] [address] Rosie Syed, LIABILITY CLAIMS EXAMINER.[place] [address] [place] [address] 1 week follow up [facility] [place] Comment on above: 1 week follow up Start: 07-03-2024 ANNUAL PCP TEAM CHRONIC DISEASE VISIT ANNUAL PCP TEAM CHRONIC DISEASE VISIT [facility] Start: 05-29-2024 ANNUAL PCP TEAM CHRONIC DISEASE VISIT ANNUAL PCP TEAM CHRONIC DISEASE VISIT [facility] Start: 05-07-2024 End: 05-07-2024 ambulatory 05/07/2024 10:00 AM EDT Visit (SP) Office Hematology/Oncology [address] [place] [address] Nevin Fajardo APRN.[place] [address] [place] [address] 7 MO OV/MAMNMN 05/05* Hematology/Oncology Comment on above: 7 MO OV/MAMNMN 05/05* Start: 05-05-2024 End: 05-05-2024 Patient encounter procedure 05/05/2024 10:10 AM EDT Appointment Mammogram [address] [place] [address] Personal history of breast cancer [Z85.3]; Encounter for screening mammogram for high-risk patient [Z12.31] Mammogram Comment on above: Personal history of breast cancer [Z85.3 ]; Encounter for screening mammogram for high-risk patient [Z12.31] Start: 05-02-2024 ANNUAL PCP TEAM CHRONIC DISEASE VISIT ANNUAL PCP TEAM CHRONIC DISEASE VISIT [facility] Start: 04-02-2024 ANNUAL PCP TEAM CHRONIC DISEASE VISIT ANNUAL PCP TEAM CHRONIC DISEASE VISIT [facility] Start: 03-19-2024 End: 06-18-2024 Comprehensive metabolic 2000 panel - Serum or Plasma Work Phone: Comment on above: Expected: 03/19/2024, Expires: Start: 03-19-2024 End: 06-18-2024 Hemoglobin A1c in Blood [facility] Comment on above: Expected: 03/19/2024, Expires: Start: 03-19-2024 End: 06-18-2024 LIPID PANEL, NONFASTING [facility] Comment on above: Expected: 03/19/2024, Expires: Start: 03-19-2024 End: 06-18-2024 Thyrotropin [Units/volume] in Serum or Plasma [facility] Comment on above: Expected: 03/19/2024, Expires: Start: 03-02-2024 ANNUAL PCP TEAM CHRONIC DISEASE VISIT ANNUAL PCP TEAM CHRONIC DISEASE VISIT [facility] Start: 02-28-2024 HEMOGLOBIN/HEMATOCRIT HEMOGLOBIN/HEMATOCRIT [facility] Start: 02-28-2024 SERUM CREATININE SERUM CREATININE [facility] Start: 01-29-2024 End: 03-30-2024 Comprehensive metabolic 2000 panel - Serum or Plasma COMP METABOLIC PANEL Lab Routine Primary hypertension Expected: 01/29/2024, Expires: 03/30/2024 Work Phone: Comment on above: Expected: 01/29/2024, Expires: 4 Start: 01-29-2024 End: 03-30-2024 Hemoglobin A1c in Blood HGB A1C Lab Routine Hyperglycemia Expected: 01/29/2024, Expires: 03/30/2024 Work Phone: Comment on above: Expected: 01/29/2024, Expires: 4 Start: 01-29-2024 End: 03-30-2024 Lipid 1996 panel - Serum or Plasma LIPID PANEL BASIC Lab Routine Hyperlipidemia, unspecified hyperlipidemia type Expected: 01/29/2024, Expires: 03/30/2024 Work Phone: Comment on above: Expected: 01/29/2024, Expires: 4 Start: 11-13-2023 [facility] Start: 11-13-2023 [facility] Start: 11-13-2023 HEMOGLOBIN/HEMATOCRIT HEMOGLOBIN/HEMATOCRIT [facility] Start: 11-13-2023 SERUM CREATININE SERUM CREATININE [facility] Start: 11-12-2023 Advance Directive Discussion Advance Directive Discussion [facility] Start: 11-12-2023 Behavioral Health Screening Behavioral Health Screening [facility] Start: 11-12-2023 Depression Assessment Depression Assessment [facility] Start: 11-11-2023 Depression Assessment Depression Assessment [facility] Comment on above: Postponed from 11/12/2022 (Declined at t his time) Start: 07-25-2023 SERUM CREATININE SERUM CREATININE [facility] Start: 07-13-[address] [facility] Start: 06-19-2023 SERUM CREATININE SERUM CREATININE [facility] Start: 06-14-2023 ANNUAL PCP TEAM CHRONIC DISEASE VISIT ANNUAL PCP TEAM CHRONIC DISEASE VISIT [facility] Start: 06-14-2023 SERUM CREATININE SERUM CREATININE [facility] Start: 06-14-2023 SHINGRIX VACCINE (2 of 3) SHINGRIX VACCINE (2 of 3) [facility] Comment on above: Postponed from 10/09/2013 (Insurance Cov erage) Start: 06-07-2023 ANNUAL PCP TEAM CHRONIC DISEASE VISIT ANNUAL PCP TEAM CHRONIC DISEASE VISIT [facility] Start: 05-16-2023 SERUM CREATININE SERUM CREATININE [facility] Start: 05-10-2023 Adult depression screening assessment DEPRESSION SCREENING [facility] Start: 05-10-2023 ANNUAL PCP TEAM CHRONIC DISEASE VISIT ANNUAL PCP TEAM CHRONIC DISEASE VISIT [facility] Start: 03-05-2023 End: 05-05-2023 Urinalysis complete panel - Urine URINALYSIS, WITH MICROSCOPIC Lab Routine Microscopic hematuria Expected: 03/05/2023, Expires: 05/05/2023 Work Phone: Comment on above: Expected: 03/05/2023, Expires: 3 Start: 03-02-2023 End: 05-02-2023 Bacteria identified in Urine by Culture Work Phone: Comment on above: Expected: 03/02/2023, Expires: 3 Start: 02-15-2023 End: 02-16-2024 CBC W Auto Differential panel - Blood CBC + DIFF Lab Routine Primary hypertension Hyperlipidemia, unspecified hyperlipidemia type Postoperative hypothyroidism Expected: 02/15/2023, Expires: 02/16/2024 Work Phone: Comment on above: Expected: 02/15/2023, Expires: 4 Start: 02-15-2023 End: 02-16-2024 Comprehensive metabolic 2000 panel - Serum or Plasma COMP METABOLIC PANEL Lab Routine Primary hypertension Hyperlipidemia, unspecified hyperlipidemia type Postoperative hypothyroidism Expected: 02/15/2023, Expires: 02/16/2024 Work Phone: Comment on above: Expected: 02/15/2023, Expires: 4 Start: 02-15-2023 End: 02-16-2024 Lipid 1996 panel - Serum or Plasma LIPID PANEL BASIC Lab Routine Primary hypertension Hyperlipidemia, unspecified hyperlipidemia type Postoperative hypothyroidism Expected: 02/15/2023, Expires: 02/16/2024 Work Phone: Comment on above: Expected: 02/15/2023, Expires: 4 Start: 02-15-2023 End: 04-17-2023 Thyrotropin [Units/volume] in Serum or Plasma TSH BLD Lab Routine Primary hypertension Hyperlipidemia, unspecified hyperlipidemia type Postoperative hypothyroidism Expected: 02/15/2023, Expires: 04/17/2023 Work Phone: Comment on above: Expected: 02/15/2023, Expires: 3 Start: 12-15-2022 End: 07-14-2023 US KIDNEY/BLADDER US KIDNEY/BLADDER Radiology Routine Renal cyst Expected: 12/15/2022, Expires: 07/14/2023 Work Phone: Comment on above: Expected: 12/15/2022, Expires: 3 Start: 12-11-2022 [facility] Start: 11-30-2022 ANNUAL PCP TEAM CHRONIC DISEASE VISIT ANNUAL PCP TEAM CHRONIC DISEASE VISIT [facility] Start: 11-12-2022 ADVANCE DIRECTIVE DISCUSSION ADVANCE DIRECTIVE DISCUSSION [facility] Start: 11-12-2022 DEPRESSION ASSESSMENT DEPRESSION ASSESSMENT [facility] Start: 11-01-2022 HEMOGLOBIN/HEMATOCRIT HEMOGLOBIN/HEMATOCRIT [facility] Start: 11-01-2022 SERUM CREATININE SERUM CREATININE [facility] Start: 09-03-2022 Urine microalbumin profile [facility] Start: 07-13-2022 Influenza vaccination INFLUENZA (#1) [facility] Start: 06-26-2022 End: 08-26-2022 Basic metabolic 2000 panel - Serum or Plasma BASIC METABOLIC PNL Lab Routine Hyponatremia Expected: 06/26/2022, Expires: 08/26/2022 Work Phone: Comment on above: Expected: 06/26/2022, Expires: 2 Start: 05-30-2022 Patient discharge [facility] Work Phone: Start: 04-05-2022 COVID-19 VACCINE (4 - Booster for Pfizer series) COVID-19 VACCINE (4 - Booster for Pfizer series) [facility] Start: 11-12-2021 ADVANCE DIRECTIVE DISCUSSION ADVANCE DIRECTIVE DISCUSSION [facility] Start: 11-12-2021 DEPRESSION ASSESSMENT DEPRESSION ASSESSMENT [facility] Start: 07-30-2019 Adult depression screening assessment DEPRESSION SCREENING [facility] Start: 2017 RSV Vaccine (1 - 1-dose 75+ series) RSV Vaccine (1 - 1-dose 75+ series) [facility] Start: 10-09-2013 SHINGRIX VACCINE (1 of 2) SHINGRIX VACCINE (1 of 2) [facility] Start: 10-09-2013 SHINGRIX VACCINE (2 of 3) SHINGRIX VACCINE (2 of 3) [facility] Start: 2002 RSV Vaccine (1 - 1-dose 60+ series) RSV Vaccine (1 - 1-dose 60+ series) [facility] Start: 1960 Anxiety Screening Anxiety Screening [facility] Start: 1960 BP CONTROLLED (<130/80) BP CONTROLLED (<130/80) [facility] Start: 1960 Depression Screening Depression Screening [facility] Acid fast bacilli culture [facility] Acid Fast Bacilli Culture Acid Fast Bacilli Culture [facility] Acid Fast Bacilli Smear Acid Fast Bacilli Smear [facility] Bacteria identified in Urine by Culture BACTERIAL CULTURE, URINE Microbiology Routine Acute cystitis without hematuria 12/17/2024 11:26 AM EST Work Phone: COVID & INFLUENZA A/ B & RSV PCR, ROUTINE COVID & INFLUENZA A/B & RSV PCR, ROUTINE Microbiology Routine Other cough Ordered: 01/26/2025 Work Phone: Comment on above: Ordered: 01/26/2025 Ct abdomen & pelvis w/contrast material CT ABD/PEL W IVCON Radiology Routine Malignant neoplasm of upper-outer quadrant of left breast in female, estrogen receptor positive (HCC) Abdominal mass of other site Intra-abdominal and pelvic swelling, mass and lump, unspecified site 05/16/2022 3:28 PM EDT Work Phone: End: 05-11-2025 DBT Breast - bilateral screening Work Phone: Comment on above: ONCE for 1 Occurrences starting 05/11/20 until 05/11/2025 Fungal Culture Fungal Culture [facility] Hemoglobin.gastroint es tinal.lower [Presence] in Stool by Immunoassay IMMUNOCHEMICAL FECAL OCCULT BLOOD TEST Lab Routine Anemia, unspecified type Ordered: 02/04/[address] [facility] Comment on above: Ordered: 02/04/2025 End: 04-20-2024 TITO SCREENING TITO SCREENING Radiology Routine Personal history of breast cancer Encounter for screening mammogram for high-risk patient 1 Occurrences starting 03/22/2023 until 04/20/2024 Work Phone: Comment on above: 1 Occurrences starting 03/22/2023 until 04/20/2024 End: 10-24-2024 TITO SCREENING TITO SCREENING Radiology Routine Personal history of breast cancer Encounter for screening mammogram for high-risk patient 1 Occurrences starting 09/25/2023 until 10/24/2024 Work Phone: Comment on above: 1 Occurrences starting 09/25/2023 until 10/24/2024 MG Breast Screening TITO SCREENIN G Radiology Routine Personal history of breast cancer Encounter for screening mammogram for high-risk patient 05/05/2024 10:59 AM EDT Work Phone: End: 06-06-2025 MG Breast Screening TITO SCREENING Radiology Routine Personal history of breast cancer Encounter for screening mammogram for high-risk patient 1 Occurrences starting 05/07/2024 until 06/06/2025 Work Phone: Comment on above: 1 Occurrences starting 05/07/2024 until 06/06/2025 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 [facility] Patient Education Coronavirus Di sease 2019 (COVID-19): Caring for Yourself or Others [facility] [place] Work Phone: Patient referral [facility] Work Phone: End: 01-09-2024 PVR ANK/DAUGHERTY/TOE [facility] PVR ANK/DAUGHERTY/TOE [facility] Vascular Lab Routine Peripheral arterial disease (HCC) 1 Occurrences starting 01/09/2023 until 01/09/2024 Work Phone: Comment on above: 1 Occurrences starting 01/09/2023 until 01/09/2024 End: 02-09-2026 US Vein - bilateral US VENOUS INCOMPETENCY [facility] V[facility] Lab Routine Symptomatic varicose veins, bilateral 1 Occurrences starting 02/09/2025 until 02/09/2026 Work Phone: Comment on above: 1 Occurrences starting 02/09/2025 until 02/09/2026 End: 01-09-2024 US VENOUS INCOMPETENCY [facility] US VENOUS INCOMPETENCY [facility] Vascular Lab Routine Venous (peripheral) insufficiency 1 Occurrences starting 01/09/2023 until 01/09/2024 Work Phone: Comment on above: 1 Occurrences starting 01/09/2023 until 01/09/2024 End: 02-25-2026 XR Chest PA and Lateral XR CHEST 2V FRONTAL/LAT Radiology Routine Other cough SOB (shortness of breath) 1 Occurrences starting 01/26/2025 until 02/25/[address] [facility] Comment on above: 1 Occurrences starting 01/26/2025 until 02/25/2026 XR Chest PA and Lateral XR CHEST 2V FRONTAL/LAT Radiology Routine Other cough SOB (shortness of breath) 01/26/2025 4:[address] [facility] XR Lumbar spine 3 Views XR LUMBAR GENERAL 3V AP/LAT/L5-S1 Radiology Routine Low back pain without sciatica, unspecified back pain laterality, unspecified chronicity 11/19/2024 12:02 PM EST Work Phone: End: 03-06-2026 XR Thoracic spine AP and Lateral and Swimmers XR THORACIC GENERAL 3V AP/LAT/SWIMMERS Radiology Routine Chronic left-sided thoracic back pain 1 Occurrences starting 02/04/2025 until 03/06/[address] [facility] Comment on above: 1 Occurrences starting 02/04/2025 until 03/06/2026 XR Thoracic spine AP and Lateral and Swimmers XR THORACIC GENERAL 3V AP/LAT/SWIMMERS Radiology Routine Chronic left-sided thoracic back pain 02/05/2025 10:08 AM EDT Work Phone: [facility] Immunizations Immunization Date Immunization Notes Care Provider [facility] 08-12-2024 influenza, high dose seasonal, preservative-free Rosie Syed LIABILITY CLAIMS EXAMINER.[employer] Work Phone: [facility] 08-12-2024 influenza virus vacc ine, unspecified formulation Nevin Fajardo LIABILITY CLAIMS EXAMINER.[employer] Work Phone: [facility] 07-31-2023 influenza (HD-IIV4) vaccine, age 65+ yr, high dose, quadrivalent, PF (FLUZONE HIGH-DOSE) KAROL Brown PA-C Work Phone: [facility] 07-31-2023 influenza virus vacc ine, unspecified formulation Rosie Syed LIABILITY CLAIMS EXAMINER.[employer] Work Phone: [facility] 10-14-2022 influenza virus vacc ine, unspecified formulation Eliseo Michele RN [facility] 09-05-2021 influenza, high-dose , quadrivalent vaccine (FLUZONE HIGH DOSE QUADRIVALENT) Tu Canela MD Work Phone: [facility] 01-14-2021 COVID-19 vaccine, ag e 12+ yr ([employer] [facility]) Tu Canela MD Work Phone: [facility] Work Phone: 12-24-2020 COVID-19 vaccine, ag e 12+ yr ([employer] [facility]) Tu Canela MD Work Phone: [facility] 08-02-2020 influenza, high dose seasonal, preservative-free Tu Canela MD Work Phone: [facility] 08-02-2020 influenza, injectabl e, quadrivalent, preservative free Tu Canela MD Work Phone: [facility] 07-24-2019 influenza, high dose seasonal, preservative-free Tu Canela MD Work Phone: [facility] 07-30-2018 pneumococcal polysaccharide vaccine, 23 valent Tu Canela MD Work Phone: [facility] 07-27-2018 Seasonal trivalent influenza vaccine, adjuvanted, preservative free Tu Canela MD Work Phone: [facility] 07-04-2017 influenza, high dose seasonal, preservative-free Tu Canela MD Work Phone: [facility] 07-04-2017 Seasonal trivalent influenza vaccine, adjuvanted, preservative free Tu Canela MD Work Phone: [facility] 08-04-2016 influenza, high dose seasonal, preservative-free Tu Canela MD Work Phone: [facility] 08-04-2015 influenza, high dose seasonal, preservative-free Tu Canela MD Work Phone: [facility] 07-12-2015 influenza, high dose seasonal, preservative-free Tu Canela MD Work Phone: [facility] 03-04-2015 pneumococcal conjuga te vaccine, 13 valent Tu Canela MD Work Phone: [facility] 12-13-2014 Pneumococcal Vaccine [facility] Work Phone: 12-13-2014 pneumococcal vaccine , unspecified formulation [facility] 09-03-2014 influenza, seasonal, injectable Tu Canela MD Work Phone: [facility] 08-12-2014 Influenza virus vaccine [facility] 08-14-2013 zoster vaccine, live Tu Canela MD Work Phone: [facility] Work Phone: 08-12-2013 influenza virus vacc ine, unspecified formulation Tu Canela MD Work Phone: [facility] 09-03-2012 diphtheria, tetanus toxoids and acellular pertussis vaccine Tu Canela MD Work Phone: [facility] 09-03-2012 influenza virus vacc ine, unspecified formulation Tu Canela MD Work Phone: [facility] 07-08-2011 pneumococcal polysaccharide vaccine, 23 valent Screen [address]str [facility] Work Phone: Payers Date Payer Category Payer Self-pay [id number] 2023 Medicare (Managed Care) ALICIA BLOOM [facility] [id number] 2023 Medicare [id number] 2022 Medicare HUMANA MEDICARE HUMANA GOLD PLUS [id number] 2022-Present [phone] [address] [address] [place] [address] [facility] [id number] 2019 Unknown ANTHEM BLUE CROS S AND BLUE SHIELD ANTHEM SPENCERBLUE HMO [id number] 2019-Present [phone] [address] [place] [address] HMO [id number] 2019 Unknown [id number] 2016 Medicaid MEDICAID [facility] MEDICAID [id number] 2016-Present [phone] [address] [place] [address] Medicaid [id number] 2016 Medicaid [id number] 2016 Medicaid [id number] 1999 Medicare [id number] Private Health Insurance HUMANA [facility] 18 [id number] Unknown [id number] Social History Date Type Detail Facility Start: 10-16-2018 End: 06-04-2025 Tobacco smoking status KYIS Smokes tobacco daily [facility] History of tobacco use Cigarette Smoker C [facility] Start: 10-16-2018 End: 03-22-2023 Cigarettes smoked current (pack per day) - Reported [address] [facility] Start: 10-16-2018 End: 06-04-2025 Tobacco use and exposure Smokeless tobacco non-user [facility] Start: 01-05-2022 End: 06-04-2025 Alcohol intake Current non-drinker of alcohol (finding) [facility] Start: 01-05-2022 End: 07-05-2022 Tobacco Comment Pt has cut back to 1/[address] [facility] Start: 1940 Sex Assigned At Not on file C [facility] Start: 03-23-2022 End: 11-13-2023 Tobacco smoking status KYIS Unknown if ever smoked [facility] Start: 1940 Sex Assigned At Female [facility] Start: 10-31-2021 End: 07-03-2022 Exposure to SARS-CoV-2 (event) Not sure [facility] Start: 07-05-2022 End: 11-03-2024 Tobacco smoking status NHIS Ex-smoker [facility] Work Phone: History of tobacco use Current smoker [facility] Work Phone: Start: 11-07-2022 History SDOH Financial [address] [facility] Start: 11-07-2022 History SDOH Food Worry [address] [facility] Start: 11-07-2022 History SDOH Transpo rt Med [address] [facility] Start: 03-22-2023 End: 05-11-2023 Tobacco use panel [facility] How hard is it for y ou to pay for the very basics like food, housing, medical care, and heating Not very hard [facility] Adult Depression Screening Assessment [address] [facility] Work Phone: (I/We) worried wheth er (my/our) food would run out before (I/we) got money to buy more. Never true [facility] In the past 12 month s, was there a time when you were not able to pay the mortgage or rent on time? No [facility] Start: 10-05-2017 Tobacco Comment has smoked off & on since she was 22 y/[address] [facility] Medical Equipment Procedure Code Equipment Code Equipment Origin al Text Equipment Identifier Dates Colonoscopy SUPER 7 SPEEDBAN D/ LIGATOR FDA Start: 05-30-2022 Colonoscopy SUPER 7 SPEEDBAN D/ LIGATOR FDA Start: 05-30-2022 Colonoscopy SUPER 7 SPEEDBAN D/ LIGATOR FDA Start: 05-30-2022 Colonoscopy SUPER 7 SPEEDBAN D/ LIGATOR FDA Start: 05-30-2022 Goals Date Patient Goal Desired Activity /State Personal health goal Comment on above: Formatting of this n ote might be different from the original. Patient has the following Chronic Kidney Disease goals: Two PCP visits annually, Nephrology visit annually, and Renal panel twice annually Educated in regards to importance of daily weight and weight concerns. P atient will meet these goals by: 08-24-23 (describe interventions done by [facility]) Formatting of this n ote might be different from the original. Patient has the following Chronic Kidney Disease goals: Two PCP visits annually, Nephrology visit annually, and Renal panel twice annually Educated in regards to importance of daily weight and weight concerns. atient will meet these goals by: 08-24-23 (describe interventions done by [facility]) Personal health goal Comment on above: Formatting of this n ote might be different from the original. Patient has the following High Blood Pressure/Hypertension Goals: Two PCP Visits annually, Nurse / pharmacist / BOBBY visit within 4 weeks after PCP visit with uncontrolled BP (>140/90), BMP annually, and Patients specific blood pressure target:Patient specific per PCP: per PCP HTN Education given and reviewed with patient --sent on 09/27/23 Medication compliance education, Advise / educate patient to ask for repeat BP check at any appointment if first BP is >140/90, Checking your Blood Pressure at Home, High Blood Pressure: Talking to Your Health Care Provider, and High Blood Pressure - When to Seek Emergency Care Patient will meet these goals by 11-11-24 (describe interventions done by [facility]) Personal health goal Functional Status Date Assessment Result Facility 10-27-2024 Are you deaf, or do you have serious difficulty hearing No 10/27/2024 3:32 PM Shavonne Patel, HERNESTO No [facility] 10-27-2024 Are you blind, or do you have serious difficulty seeing, even when wearing glasses No 10/27/2024 3:32 PM Shavonne Patel, HERNESTO No [facility] 10-27-2024 Do you have serious difficulty walking or climbing stairs No 10/27/2024 3:32 PM Shavonne Patel, HERNESTO No [facility] 10-27-2024 Do you have difficul ty dressing or bathing No 10/27/2024 3:32 PM Shavonne Patel, HERNESTO No [facility] 10-27-2024 Because of a physica l, mental, or emotional condition, do you have difficulty doing errands alone such as visiting a physician's office or shopping No 10/27/2024 3:32 PM Shavonne Patel RN No [facility] Mental Status Date Assessment Result Facility 10-27-2024 Because of a physica l, mental, or emotional condition, do you have serious difficulty concentrating, remembering, or making decisions No 10/27/2024 3:32 PM Shavonne Patel RN No [facility] 05-30-2022 Cognitive function Voice/Name [facility] Work Phone: Clinical Notes 03-26-2018 to 06-04-2025 Jannie Proctor, - 06/04/2025 12:17 PM Jannie Higginbotham, - 06/04/2025 11:35 AM EDTTelephone Encounter - Yue Reyes RN - 05/27/2025 9:18 AM EDTPatient Instructions Note Date & Type Note Facility 06-04-2025 Note [facility] 06-04-2025 History of Presen t illness Narrative UNIVERSAL PROTOCOL / SAFETY CHECKLIST Procedure to be Performed: Left leg EVLT Sign In: A Moment of CARE was completed. Appropriate PPE (Personal Protective Equipment) worn by all providers involved with the procedure. Special equipment utilized laser. Patient/Surrogate Stated/Verified: Patient name, Date of , Relevant allergies, and The intended procedure Time Out: Relevant labs, photos, and/or imaging studies have been reviewed. Intended patient and procedure match the source document(s) (e.g. consent, H&P, associated studies [imaging, pathology]) match the intended patient and procedure. Consent obtained and matches the intended procedure. Yes. Correct side/site has been marked and visible. Medications required for this procedure are verified. Fire risk assessed and is not applicable. Implants: are not applicable. Sign Out: Specimens not collected. All instruments, equipment, possible retained foreign bodies are accounted for. Yes. The post-procedure plan of care has been communicated to the patient or surrogate. Surgeon: Jannie Proctor DO Nurse Coordinator(s): Lolis Painter Procedure(s): EVLT ablation of the left great saphenous vein Anesthesia: Local with 1% lidocaine, and tumescence anesthesia using 50 cc of 1% lidocaine with epinephrine 1:100,0000 + 20 cc of 8.4% sodium bicarbonate in 1000 cc of normal saline Preoperative Diagnosis: Symptomatic varicose veins left leg. Postoperative Diagnoses: Symptomatic varicose veins left leg. Operative Indications: The patient is a 84 year old female with painful varicose veins, especially on the left leg. 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 Options of therapy were discussed. She elected to proceed with surgery. Operative Findings: Varicose veins left leg. Procedure Narrative: The patient was seen in the preoperative area, consent was obtained, and 0.5 mg of xanax was given po. She was then taken to the procedure room and placed in supine position. The patient's left lower extremity was prepped with chloraprep and [...] junction. The sheath was removed, and a 4-Solomon Islander sheath and dilator were passed over the [...] lidocaine, and sodium bicarbonate. A total of 350 mL was injected. The laser power was then set at 7 reynolds. The laser was energized and withdrawn at a rate of 1 cm per 9 seconds for the first several cm. Then, the rate of withdrawal was increased to 1 cm per 6 seconds for the remainder of the 41 cm treated. A total of 2017 joules were delivered over 288 seconds to the 41 cm of vein treated. This averaged 49 joules per cm. The sheath and laser fiber were removed. Pressure was held at the site of catheter insertion for 2 minutes. The vein was again interrogated using duplex ultrasound. The vein was completely collapsed and the cabello were thickened. A Tegaderm was applied to the catheter insertion site. A 20-30 mm Hg thigh high compression stocking was put on the leg. The patient tolerated the procedure well. Postoperative instructions were given. Surgeon/Practitioner Performing Venous Access: DO Jannie Carranza DO Surgeon/Practitioner Performing Ablation: Jannie Proctor DO Estimated Blood Loss: none Drains: none Prosthetic Devices, Grafts, or Implants: none Specimens: none Complications: none [facility] Operative Report Endovenous Laser Ablation Florecita Healy June 04, 2025 1940 ALLERGIES: ALLERGIES Allergen Reactions Animal Dander Intolerance Darvocet A500 [Prop* Mental Status Change Dust Other: See Comments Grass Pollen Other: See Comments Mold Other: See Comments Soma [Carisoprodol] Swelling, Itching Trees Other: See Comments Physician: Dr. Proctor Assistants: Rupa Talley LPN Leg: left Greater saphenous vein Position:Supine Pre-op Assessment: Ambulatory, Calm, Oriented , and Tolerated procedure with no apparent injury Xanax Dosage (Oral) : 0.5mg Time: 1115 SIGN IN COMPLETE: Yes Patient in Room: Procedure Room Safety Strap around torso: No Vein Marked: No Hair Clipped: No Prep: chloraprep Time out: 1144 UNIVERSAL PROTOCOL / SAFETY CHECKLIST Procedure to be Performed: EVLT Left GSV Start Time: 1145 1% Xylocaine Plain + 8.4% NaBicarb (5:1 mixture): Total injected: 1.0cc 1000cc Sodium Chloride + 60cc Lidocaine HCl 1% + Epinenphrine 1: 100,000 + 20cc 8.4% Sodium Bicarbonate Total Tumescent Local Injected: 350cc Laser Equipment: Laser protective googles ON patient and staff and Angiodynamics Venacure 1470 Laser Energy Used: EVLT: Greater saphenous vein 7 Reynolds 49.195Joules/cm 2016 Total # Joules 288 Seconds 41 cm Sharp Count: Pre-op: 4 Post-op: 4 Dressing: Band Aids and Pressure Allevyn End Time: 1212 Post-op Assessment: Ambulatory, Calm, Oriented , and Tolerated procedure with no apparent injury Discharge Instructions: Written Homegoing Instructions given & Reviewed Verbally with Patient & Tax Services Specialist Discharge Time: 1226 Discharged with Tax Services Specialist: With son at 1226 SIGN OUT COMPLETE: Yes Assistants: Rupa Painter RDMS Kerrie Talley LPN documented in this encounter [facility] 06-04-2025 Note [facility] 05-27-2025 Telephone encounter Note Please send calming medication for vein procedure on 06/04/[address] [facility] 05-27-2025 Miscellaneous Notes Please send calming medication for vein procedure on 06/04/25 documented in this encounter [facility] 05-26-2025 Telephone encounter Note Spoke to patient to schedule evlt encounter closed. [facility] Work Phone: 05-26-2025 Miscellaneous Notes Spoke to patient to schedule evlt encounter closed. Left message for pt to call to set up procedure with dr. Proctor. documented in this encounter [facility] 05-19-2025 Telephone encounter Note Left message for pt to call to set up procedure with dr. Proctor. [facility] 05-13-2025 Telephone encounter Note Please inform pt. that her mammogram looks good. Nevin Fajardo APRN.CNP [facility] 05-13-2025 Miscellaneous Notes Please inform pt. that her mammogram looks good. Nevin Fajardo APRN.CNP documented in this encounter [facility] 05-11-2025 History of Presen t illness Narrative Radiology Service Progress Note PATIENT NAME: Florecita Healy DATE OF SERVICE: May 11, 2025 TIME: 1:48 PM PATIENT IDENTITY VERIFICATION COMPLETED USING TWO (2) IDENTIFIERS: Name and Date of confirmed by patient verbally. FALL SCREENING: Has the patient had 2 falls in the last year or 1 fall with injury or currently using an Ambulatory Assistive Device (Walker, Cane, Wheelchair, Crutches, etc.)? No PATIENT GENDER DATA: Assigned female at . status: : No status: NO. PATIENT RELEVANT IMPLANT DATA REVIEWED: Not Applicable PATIENT PRESENTS WITH AN IMPLANTABLE OR ATTACHED TAX PROFESSIONAL: No RADIOLOGY DEPARTMENT: Mammography PERIPHERAL IV DATA: Not applicable SIGNED BY: Layla Perry May 11, 2025 1:48 PM documented in this encounter [facility] 05-11-2025 Note [facility] 04-29-2025 Note [facility] 04-29-2025 History of Presen t illness Narrative This is a 84 year old female who presents today with: Florecita Healy is an 84-year-old female with a history of CVA, hyperlipidemia, and hypothyroidism, presenting for follow-up of right shoulder pain and dyspnea. HISTORY OF PRESENT ILLNESS: Right Shoulder Pain: - Chronic right shoulder pain, described as locking up and causing severe pain when attempting to unlock it. - Pain is exacerbated by movement and use of the right arm, particularly when lifting the arm. - Pain is severe enough to cause yelling when her dog lifts her hand. - Pain has been present for over a year and has not improved. - Florecita has received a cortisone injection at [facility] with no relief. - Taking pregabalin 75 mg at night for nerve pain, but experiences excessive sedation when taking the same dose during the day. - Requests a lower dose of pregabalin (25 mg) for daytime use to manage pain without sedation. - Has not tried physical therapy for the shoulder pain. - Requests an MRI for her shoulder, believing that X-rays are insufficient to diagnose the issue. Dyspnea: - Dyspnea on exertion, particularly when talking too much or going up steps. - Believes dyspnea may be related to dry mouth from taking atorvastatin. - Denies chest pain. CVA: - History of CVA, which has limited her physical activity. - Uses a leg crystal attacher to achieve 10,000 steps a day, which has helped reduce foot dragging but does not prevent fatigue. Hyperlipidemia: - Taking atorvastatin during the day with morning medications. - Denies significant side effects from atorvastatin. Hypothyroidism: - Taking thyroid medication as prescribed. Anemia: - Lifelong history of anemia. - Currently taking iron supplements as prescribed by Dr. Canela. - Unaware that she was to repeat labwork. Arthritis: - Diagnosed with arthritis in hands and feet. - Believes shoulder pain is not related to arthritis. COVID-19 Vaccination: - Received [employer] COVID-19 vaccine but regrets it due to perceived negative effects on her skin. - Refuses to take another COVID-19 vaccine. Varicosities: - Scheduled for a vein procedure on her left leg by Dr. Proctor but has not received an appointment date. PAST MEDICAL HISTORY: PAST MEDICAL HISTORY Diagnosis Date Abnormal ultrasound of breast 12/02/15 Left Breast cancer of upper-outer quadrant of left female breast (HCC) Chronic obstructive pulmonary disease (COPD) (HCC) Chronic pain 06/03/2012 sees pain management. Diarrhea 11/06/2022 Hyperlipidemia 06/03/2012 Hypertension 06/03/2012 Nausea & vomiting 11/06/2022 Osteopenia [address] Pulmonary nodule [address] Dawn Sepsis ([facility]) 11/05/2022 Snoring PAST SURGICAL HISTORY Procedure Laterality [...] Trees MEDICATIONS Current Outpatient Medications Medication Sig pregabalin (LYRICA) 75 mg capsule Take 25 mg in the morning and 75 mg in the evening. pregabalin (LYRICA) 25 mg capsule Take 25 mg in the morning and 75 mg in the evening. Multivitamins-Iron tab Take 1 tablet by mouth once daily. carvedilol (COREG) 6.25 mg tablet Take 1 tablet by mouth two times a day. NIFEdipine ER (PROCARDIA XL) 90 mg 24 hr tablet Take 1 tablet by mouth once daily. losartan (COZAAR) 100 mg tablet Take 1 tablet by mouth once daily. pantoprazole DR (PROTONIX) 40 mg tablet Take 1 tablet by mouth daily at 6 am. atorvastatin (LIPITOR) 80 mg tablet Take 1 tablet by mouth daily at bedtime. baclofen 10 mg tablet Take 1 tablet by mouth daily at bedtime. levothyroxine (SYNTHROID) 25 mcg tablet Take 1 tablet by mouth once daily. Except 2 tabs by mouth every Sunday and Sunday aspirin 81 mg chewable tablet Take 1 tablet by mouth once daily. ammonium lactate (LAC-HYDRIN) 12 % cream Apply to affected area as needed. cyanocobalamin (VITAMIN B-12) 100 mcg tab Take 100 mcg by mouth once daily. acetaminophen (TYLENOL) 325 mg tablet Take 2 tablets by mouth every 4 hours as needed for pain. cholecalciferol, vitamin D3, (VITAMIN D3 ORAL) Take 2,000 Units by mouth once daily. alpha tocopheryl acetate (VITAMIN E) 400 unit capsule Take 400 Units by mouth once daily. diphenhydrAMINE-Acetaminophen 25-500 mg tab Take 2 tablets by mouth daily at bedtime. No current facility-administered medications for this visit. FAMILY HISTORY Problem Relation Age of Onset Heart Father other (Black Lung) Father Arthritis Mother RA other (gallbladder) Mother Diabetes Sister Cancer Sister kidney tumor Cancer Brother lung cancer Social History Tobacco Use Smoking status: Former Current packs/day: 1.00 Average packs/day: 1 pack/day for 40.0 years (40.0 ttl pk-yrs) Types: Cigarettes Smokeless tobacco: Never Vaping Use Vaping status: Never Used Substance Use Topics Alcohol use: No Drug use: No REVIEW OF SYSTEMS Constitutional: (+) weight gain, (+) fatigue, (+) daytime somnolence Ears/Nose/Mouth/Throat: (+) dry mouth Cardiovascular: (-) chest pain Respiratory: (+) exertional dyspnea Gastrointestinal: (-) constipation, (-) diarrhea Musculoskeletal: (+) side pain, (+) shoulder pain with locking, (+) thumb locking pain Skin: (+) skin changes Neurological: (+) gait disturbance EXAM: BP 134/82 (BP Site: Right Arm, BP Position: Sitting) Pulse 91 Resp 16 SpO2 96% PHYSICAL EXAM: General Appearance: Well appearing, alert, in no acute distress, well-hydrated, well nourished.. Skin: Skin color, texture, turgor normal, no suspicious rashes or lesions. Head: Normocephalic, no masses, lesions, tenderness or abnormalities. Eyes: Anicteric sclera. Extraocular movements are intact. . Lungs: Lungs clear to auscultation. No wheezing, rhonchi, rales.. Heart: RRR without murmur, gallop, or rubs. No ectopy. Abdomen: Abdomen soft, non-tender. Bowel sounds normal. Extremities: chronic edema. Neurologic: Gait normal. ASSESSMENT/PLAN 1. Essential (primary) hypertension (I10) She reports that she is compliant with medication. - Blood pressure reading today is 134/82 mmHg. - Continue current antihypertensive regimen including carvedilol twice daily. 2. Chronic pain syndrome (G89.4) - Currently managed with pregabalin 75 mg at bedtime; experiencing excessive sedation with daytime dosing. - Prescribed pregabalin 25 mg for daytime use to manage pain while minimizing sedation; sent prescription to [facility]. 3. Chronic right shoulder pain (M25.511) - Persistent pain and locking of the right shoulder; previous corticosteroid injection provided no relief. - Discussed limitations of imaging studies; insurance typically requires conservative management prior to MRI approval. - requesting referral to [facility] in [place] for orthopedic evaluation. 4. Hyperlipidemia, unspecified hyperlipidemia type (E78.5) - Continue atorvastatin daily; patient reports taking medication in the morning. - Monitor for any side effects. 5. Long-term current use of thyroid hormone replacement therapy (Z79.890) - Continue current thyroid hormone replacement therapy. 6. Personal history of transient ischemic attack (TIA), and cerebral infarction without residual deficits (Z86.73) - No new neurological deficits reported. - Continue current management and monitoring. Discussed treatment plan and patient voices understanding. Patient's questions answered appropriately. Medications and potential side effects were discussed and patient voices understanding. Return to the office as scheduled or as needed for worsening/no improvement. Rosie Syed APRN.[employer] Recording using ioSafe software for draft documentation of the visit was discussed with the patient/authorized textiles sales representative; all questions welcomed and answered. Patient/authorized textiles sales representative agreed to proceed documented in this encounter [facility] 04-29-2025 Instructions Rosie Syed APRN.[employer] - 04/29/2025 10:36 AM EDT - I ve sent a prescription for pregabalin 25 mg tablets to be taken each morning; continue using your existing 75 mg tablets at bedtime. - We'll fax referral to ortho in [place]. I - I ll send a message to Dr. Proctor s office to follow up on scheduling your left leg vein procedure; they will contact you with the appointment details. - Continue the same medication. - recheck in 3 months. documented in this encounter [facility] 04-14-2025 Note [facility] 04-14-2025 History of Presen t illness Narrative Images from the original note were not included. [facility] DEPARTMENT OF VASCULAR SURGERY OUTPATIENT VISIT DATE April 14, 2025 OUTPATIENT VISIT TYPE ESTABLISHED SERVICE DATE: 04/14/2025 SERVICE TIME: 10:50 AM PRIMARY CARE PHYSICIAN: Tu Canela MD HISTORY OF PRESENT ILLNESS: Ms. Healy is a 84 year old female who presents today for a vascular surgery follow-up visit after venous reflux testing. She continues to have discomfort on her left leg with leg swelling. PAST MEDICAL HISTORY Diagnosis Date Abnormal ultrasound of breast 12/02/15 Left Breast cancer of upper-outer quadrant of left female breast (HCC) Chronic obstructive pulmonary disease (COPD) ([facility]) Chronic pain 06/03/2012 sees pain management. Diarrhea 11/06/2022 Hyperlipidemia 06/03/2012 Hypertension 06/03/2012 Nausea & vomiting 11/06/2022 Osteopenia Psoriasis Pulmonary nodule Dr. Dawn Sepsis ([facility]) 11/05/2022 Snoring PAST SURGICAL HISTORY Procedure Laterality [...] HISTORY Social History Tobacco Use Smoking status: Former Current packs/day: 1.00 Average packs/day: 1 pack/day for 40.0 years (40.0 ttl pk-yrs) Types: Cigarettes Smokeless tobacco: Never Vaping Use Vaping status: Never Used Substance Use Topics Alcohol use: No Drug use: No MEDICATIONS: pregabalin (LYRICA) 75 mg capsule Take 1 capsule by mouth two times a day for 180 days. Multivitamins-Iron tab Take 1 tablet by mouth once daily. furosemide (LASIX) 20 mg tablet Take 1 tablet by mouth once daily for 3 days. carvedilol (COREG) 6.25 mg tablet Take 1 tablet by mouth two times a day. NIFEdipine ER (PROCARDIA XL) 90 mg 24 hr tablet Take 1 tablet by mouth once daily. losartan (COZAAR) 100 mg tablet Take 1 tablet by mouth once daily. pantoprazole DR (PROTONIX) 40 mg tablet Take 1 tablet by mouth daily at 6 am. atorvastatin (LIPITOR) 80 mg tablet Take 1 tablet by mouth daily at bedtime. baclofen 10 mg tablet Take 1 tablet by mouth daily at bedtime. levothyroxine (SYNTHROID) 25 mcg tablet Take 1 tablet by mouth once daily. Except 2 tabs by mouth every Sunday and Sunday Cephalexin 500 mg tab Take 1 tablet by mouth two times a day. aspirin 81 mg chewable tablet Take 1 tablet by mouth once daily. ammonium lactate (LAC-HYDRIN) 12 % cream Apply to affected area as needed. cyanocobalamin (VITAMIN B-12) 100 mcg tab Take 100 mcg by mouth once daily. acetaminophen (TYLENOL) 325 mg tablet Take 2 tablets by mouth every 4 hours as needed for pain. cholecalciferol, vitamin D3, (VITAMIN D3 ORAL) Take 2,000 Units by mouth once daily. alpha tocopheryl acetate (VITAMIN E) 400 unit capsule Take 400 Units by mouth once daily. diphenhydrAMINE-Acetaminophen 25-500 mg tab Take 2 tablets by mouth daily at bedtime. ALLERGIES: ALLERGIES Allergen Reactions Animal Dander Intolerance Darvocet A500 [Prop* Mental Status Change Dust Other: See Comments Grass Pollen Other: See Comments Mold Other: See Comments Soma [Carisoprodol] Swelling, Itching Trees Other: See Comments PHYSICAL EXAM: There were no vitals taken for this visit. General: Alert and oriented Integumentary: Normal color, no rash, no lesions. Extremities: Edema and Varicose veins Neurological: Normal cognition and motor skills. Vascular: Dorsalis Pedal Right: Normal - Left: Normal Diagnostic tests reviewed for today's visit: Most recent labs Most recent imaging Venous Reflux-left GSV reflux IMPRESSION: Ms. Healy is a 84 year old female with symptomatic varicose veins, venous insufficiency . CEAP CLASSIFICATION OF VENOUS DISEASE: CLINICAL C3: Edema C4a: Pigmentation or eczema S: Symptomatic, including ache, pain, tightness, skin irritation, heaviness, muscle cramps and other complaints attribultable to venous dysfunction ETIOLOGY Ep: Primary ANATOMIC As: Superficial veins PATHOPYSIOLOGIC Pr: Reflux PLAN and RECOMMENDATIONS: Recommend left GSV EVLT to treat symptomatic left leg varicose veins Discussed procedure and she would like to proceed SIGNATURE: Jannie Proctor DO PATIENT NAME: Florecita Healy DATE: April 14, 2025 TIME: 10:50 AM documented in this encounter [facility] 02-13-2025 Telephone encounter Note Lvm for pt to call back regarding thoracic spine xray results. Showed arthritis. She saw her PCP on 02/11 and they referred her to Spine. No further recommendations. [facility] Work Phone: 02-13-2025 Miscellaneous Notes Lvm for pt to call back regarding thoracic spine xray results. Showed arthritis. She saw her PCP on 02/11 and they referred her to Spine. No further recommendations. documented in this encounter [facility] 02-11-2025 Note [facility] 02-11-2025 History of Presen t illness Narrative Patient presents with: Follow Up HPI: Patient presents today for office visit for follow up. Back pain is really bothersome today. X-ray is still pending. Has had some pain over last 10 to 12 years. Is happenign more frequently over the last few months. Has chronic headache since her covid head. Has had imaging etc. Discussed we could have her see headache specialist Did see vascular surgery and neurology Chest xray was ok. At last visit, with symptoms and mildly elevated bnp. Added short course of lasix. We also did not repeat echo since had been done recently. Mild anemia persists, iron and vitamin levels were ok. Stool test is pending. Added multivitamin with iron in case. ? Related to CKD. Weight is stable. Edema is stable but has been related in part, at least, to her venous issues. Home bp has been better. No chest pain Note was copied and pasted, without alteration from last ov: Blood Pressure Edema: States that doesn't wear compression stockings. At this point doesn't have any that fit. Shortness of Breath: Last 3-4 days. Productive but thick she is having trouble getting it up. HPI: Patient presents today for office visit for follow up on bp. She had her coreg increased. She is on nifedipine and lyrica as well that can cause edema. No chest pain Is short of breath the last 3 to 4 days but has had a cough. No fever or chills. Has had weight gain. She attributes it to stopping smoking. She was on diuretics remotely but held due to her renal function. Has been on dual therapy for her stroke. Has completed 90 days, she may stop the plavix. Admits to having headaches since her stroke. Red flags for re-assessment reviewed with patient in detail. Not the worst headaches she has seen. Is following with neurology. Has edema, lymphedema noted in chart dating back at least four to five years. She was to have her left leg operated in 2022 but did not. Has had swelling for years but getting worse on the left. Has had multiple duplexes. Has seen vascular surgery for the same. Dr Proctor's note from 01/09/23 copied and pasted: PLAN and RECOMMENDATIONS: Discussed venous pathology with patient Recommend continued use of compression stockings, elevation and exercise Will get venous reflux testing and follow up to discuss results Will get PVRs to assess for arterial disease Follow up after testing Latest Ref Rng 01/26/2025 02/03/2025 WBC 3.70 - 11.00 k/uL 4.40 5.55 RBC 3.90 - 5.20 m/uL 4.05 4.25 Hemoglobin 11.5 - 15.5 g/dL 11.0 (L) 11.4 (L) Hematocrit 36.0 - 46.0 % 36.0 36.6 MCV 80.0 - 100.0 fL 88.9 86.1 MCH 26.0 - 34.0 pg 27.2 26.8 MCHC 30.5 - 36.0 g/dL 30.6 31.1 RDW-CV 11.5 - 15.0 % 14.9 15.1 (H) Platelet Count 150 - 400 k/uL 176 166 MPV 9.0 - 12.7 fL 11.0 9.4 Neut% % 53.1 63.1 Abs Neut (ANC) 1.45 - 7.50 k/uL 2.34 3.50 Lymph% % 33.6 25.0 Abs Lymph 1.00 - 4.00 k/uL 1.48 1.39 [place]% % 10.9 9.4 Abs [place] <0.87 k/uL 0.48 0.52 Eosin% % 1.4 1.6 Abs Eosin <0.46 k/uL 0.06 0.09 Baso% % 0.5 0.7 Abs Baso <0.11 k/uL <0.03 0.04 Immature Gran % % 0.5 0.2 IMMATURE GRANS (ABS) <0.10 k/uL <0.03 <0.03 NRBC /100 WBC 0.0 0.0 Absolute nRBC <0.01 k/uL <0.01 <0.01 DTYPE Auto Auto Glucose 74 - 99 mg/dL 100 (H) 96 BUN 7 - 21 mg/dL 26 (H) 18 Creatinine 0.58 - 0.96 mg/dL 1.09 (H) 1.04 (H) Sodium 136 - 144 mmol/L 143 143 Potassium 3.7 - 5.1 mmol/L 3.7 3.9 Chloride 98 - 107 mmol/L 106 105 CO2 22 - 30 mmol/L 26 26 Anion Gap 8 - 15 mmol/L 11 12 Calcium 8.5 - 10.2 mg/dL 9.5 9.8 eGFR >=60 mL/min/1.73m 51 (L) 54 (L) Iron 41 - 186 ug/dL 60 TIBC 232 - 386 ug/dL 268 Transferrin Saturation 15.0 - 57.0 % 22.4 NT Pro BNP <450 pg/mL 762 (H) TSH 0.270 - 4.200 mIU/L 3.170 Vitamin B12 232 - 1,245 pg/mL >2,000 (H) Folate >4.7 ng/mL >20.0 Ferritin 14.7 - 205.1 ng/mL 89.8 Legend: (L) Low (H) High ECHO: - The left ventricle is normal in size. There is left ventricular hypertrophy. Left ventricular systolic function is normal. EF = 59 5% (2D biplane) - The right ventricle is normal in size. Right ventricular systolic function is normal. - Negative agitated saline study performed, clips 40 & 43. - Exam was compared with the prior echocardiographic exam performed on 03/19/2020. Similar findings. MEDICATIONS: Current Outpatient Medications Medication Sig Multivitamins-Iron tab Take 1 tablet by mouth once daily. furosemide (LASIX) 20 mg tablet Take 1 tablet by mouth once daily for 3 days. carvedilol (COREG) 6.25 mg tablet Take 1 tablet by mouth two times a day. pregabalin (LYRICA) 75 mg capsule Take 1 capsule by mouth daily at bedtime for 180 days. NIFEdipine ER (PROCARDIA XL) 90 mg 24 hr tablet Take 1 tablet by mouth once daily. losartan (COZAAR) 100 mg tablet Take 1 tablet by mouth once daily. pantoprazole DR (PROTONIX) 40 mg tablet Take 1 tablet by mouth daily at 6 am. atorvastatin (LIPITOR) 80 mg tablet Take 1 tablet by mouth daily at bedtime. baclofen 10 mg tablet Take 1 tablet by mouth daily at bedtime. levothyroxine (SYNTHROID) 25 mcg tablet Take 1 tablet by mouth once daily. Except 2 tabs by mouth every Sunday and Sunday Cephalexin 500 mg tab Take 1 tablet by mouth two times a day. aspirin 81 mg chewable tablet Take 1 tablet by mouth once daily. ammonium lactate (LAC-HYDRIN) 12 % cream Apply to affected area as needed. cyanocobalamin (VITAMIN B-12) 100 mcg tab Take 100 mcg by mouth once daily. acetaminophen (TYLENOL) 325 mg tablet Take 2 tablets by mouth every 4 hours as needed for pain. cholecalciferol, vitamin D3, (VITAMIN D3 ORAL) Take 2,000 Units by mouth once daily. alpha tocopheryl acetate (VITAMIN E) 400 unit capsule Take 400 Units by mouth once daily. diphenhydrAMINE-Acetaminophen 25-500 mg tab Take 2 tablets by mouth daily at bedtime. No current facility-administered medications for this visit. ALLERGIES: ALLERGIES Allergen Reactions Animal Dander Intolerance Darvocet A500 [Prop* Mental Status Change Dust Other: See Comments Grass Pollen Other: See Comments Mold Other: See Comments Soma [Carisoprodol] Swelling, Itching Trees Other: See Comments PAST MEDICAL HISTORY Diagnosis Date Abnormal ultrasound of breast 12/02/15 Left Breast cancer of upper-outer quadrant of left female breast ([facility]) Chronic obstructive pulmonary disease (COPD) ([facility]) Chronic pain 06/03/2012 sees pain management. Diarrhea 11/06/2022 Hyperlipidemia 06/03/2012 Hypertension 06/03/2012 Nausea & vomiting 11/06/2022 Osteopenia Psoriasis Pulmonary nodule Dr. Danw Sepsis ([facility]) 11/05/2022 Snoring PAST SURGICAL HISTORY Procedure Laterality [...] Social History Tobacco Use Smoking status: Former Current packs/day: 1.00 Average packs/day: 1 pack/day for 40.0 years (40.0 ttl pk-yrs) Types: Cigarettes Smokeless tobacco: Never Vaping Use Vaping status: Never Used Substance Use Topics Alcohol use: No Drug use: No Reviewed current medications, allergies, past medical history, surgical history, family history and social history today. REVIEW OF SYSTEMS All other reviewed and negative other than HPI. HEALTH MAINTENANCE: Reviewed health maintenance issues today and recommended the following in detail. Depression Screening Never done Anxiety Screening Never done Shingrix Vaccine(2 of 3) due on 10/09/2013 RSV Vaccine(1 - 1-dose 75+ series) Never done DTaP,Tdap,Td Vaccine(2 - Tdap) due on 09/03/2022 Advance Directive Discussion due on 11/12/2024 VITALS: BP 128/70 Pulse 87 Wt 78.5 kg (173 lb) SpO2 97% BMI 28.79 kg/m Last 4 Encounter Wt Readings: Date: Wt: 02/04/2025 78.5 kg (173 lb) 01/26/2025 78.5 kg (173 lb) 11/03/2024 75.1 kg (165 lb 10.8 oz) 10/19/2024 73 kg (160 lb 15 oz) PHYSICAL EXAMINATION: General appearance: uncomfortable due to her back. Breathing comfortably. Skin: Skin color, texture, turgor normal, no suspicious rashes or lesions Head: Normocephalic, no masses, lesions, tenderness or abnormalities Lungs: Lungs clear to auscultation. No wheezing, rhonchi, rales Heart: RRR without murmur, gallop, or rubs. No ectopy Abdomen: Normal abdominal exam, Abdomen soft, non-tender. Bowel sounds normal. No masses, organomegaly Extremities: No deformities, chronic 1 + edema, skin discoloration, clubbing or cyanosis. Good capillary refill. ASSESSMENT/PLAN: 1. Ischemic stroke (HCC) - ICD9: 434.91, ICD10: I63.9 (primary diagnosis) - per neurology. Continue to follow. 2. Anemia, unspecified type - ICD9: 285.9, ICD10: D64.9 - is stable. Added multivitamin. Await ifobt. ? Related to ckd. 3. Congestive heart failure, unspecified HF chronicity, unspecified heart failure type (HCC) - ICD9: 428.0, ICD10: I50.9 - no change with diuresis. Hold on repeating echo since done recently. Given her shortness of breath as well, see cardiology. Call prn - CONSULT TO CARDIOLOGY 4. Hypothyroidism, unspecified type - ICD9: 244.9, ICD10: E03.9 -stable. 5. Primary hypertension - ICD9: 401.9, ICD10: I10 - Controlled - Continue current medications 6. Stage 3a chronic kidney disease (HCC) - ICD9: 585.3, ICD10: N18.31 - stable. 7. Chronic pain syndrome - ICD9: 338.4, ICD10: G89.4 - increase lyrica. Oarrs done. Discussed risks and benefits of new medication with the patient. Advised them to call if any side effects or questions. - PREGABALIN 75 MG CAPSULE 8. Chronic midline thoracic back pain - ICD9: 724.1, 338.29, ICD10: M54.6, G89.29 - await xray - CONSULT TO [facility] 9. SOB (shortness of breath) - ICD9: 786.05, ICD10: R06.02 - CONSULT TO CARDIOLOGY Tu Canela MD documented in this encounter [facility] 02-09-2025 Note [facility] 02-09-2025 History of Presen t illness Narrative Images from the original note were not included. [facility] DEPARTMENT OF VASCULAR SURGERY OUTPATIENT VISIT DATE February 09, 2025 OUTPATIENT VISIT TYPE ESTABLISHED SERVICE DATE: 02/09/2025 SERVICE TIME: 10:14 AM PRIMARY CARE PHYSICIAN: Tu Canela MD HISTORY OF PRESENT ILLNESS: Ms. Healy is a 84 year old female who presents today for a vascular surgery follow-up visit for bilateral lower extremity swelling. She has a history of venous reflux and underwent right EVLT. She had a stroke in October which affected her left leg- has weakness. She has since quit smoking and is trying to get back to baseline. She has gained weight over winter due to decreased activity as well as with quitting smoking PAST MEDICAL HISTORY Diagnosis Date Abnormal ultrasound of breast 12/02/15 Left Breast cancer of upper-outer quadrant of left female breast ([facility]) Chronic obstructive pulmonary disease (COPD) ([facility]) Chronic pain 06/03/2012 sees pain management. Diarrhea 11/06/2022 Hyperlipidemia 06/03/2012 Hypertension 06/03/2012 Nausea & vomiting 11/06/2022 Osteopenia P[address] Pulmonary nodule [address] Dawn Sepsis ([facility]) 11/05/2022 Snoring PAST SURGICAL HISTORY Procedure Laterality [...] HISTORY Social History Tobacco Use Smoking status: Former Current packs/day: 1.00 Average packs/day: 1 pack/day for 40.0 years (40.0 ttl pk-yrs) Types: Cigarettes Smokeless tobacco: Never Vaping Use Vaping status: Never Used Substance Use Topics Alcohol use: No Drug use: No MEDICATIONS: Multivitamins-Iron tab Take 1 tablet by mouth once daily. carvedilol (COREG) 6.25 mg tablet Take 1 tablet by mouth two times a day. pregabalin (LYRICA) 75 mg capsule Take 1 capsule by mouth daily at bedtime for 180 days. NIFEdipine ER (PROCARDIA XL) 90 mg 24 hr tablet Take 1 tablet by mouth once daily. losartan (COZAAR) 100 mg tablet Take 1 tablet by mouth once daily. pantoprazole DR (PROTONIX) 40 mg tablet Take 1 tablet by mouth daily at 6 am. atorvastatin (LIPITOR) 80 mg tablet Take 1 tablet by mouth daily at bedtime. baclofen 10 mg tablet Take 1 tablet by mouth daily at bedtime. levothyroxine (SYNTHROID) 25 mcg tablet Take 1 tablet by mouth once daily. Except 2 tabs by mouth every Sunday and Sunday Cephalexin 500 mg tab Take 1 tablet by mouth two times a day. aspirin 81 mg chewable tablet Take 1 tablet by mouth once daily. ammonium lactate (LAC-HYDRIN) 12 % cream Apply to affected area as needed. cyanocobalamin (VITAMIN B-12) 100 mcg tab Take 100 mcg by mouth once daily. acetaminophen (TYLENOL) 325 mg tablet Take 2 tablets by mouth every 4 hours as needed for pain. cholecalciferol, vitamin D3, (VITAMIN D3 ORAL) Take 2,000 Units by mouth once daily. alpha tocopheryl acetate (VITAMIN E) 400 unit capsule Take 400 Units by mouth once daily. diphenhydrAMINE-Acetaminophen 25-500 mg tab Take 2 tablets by mouth daily at bedtime. furosemide (LASIX) 20 mg tablet Take 1 tablet by mouth once daily for 3 days. ALLERGIES: ALLERGIES Allergen Reactions Animal Dander Intolerance Darvocet A500 [Prop* Mental Status Change Dust Other: See Comments Grass Pollen Other: See Comments Mold Other: See Comments Soma [Carisoprodol] Swelling, Itching Trees Other: See Comments PHYSICAL EXAM: BP 136/64 (BP Site: Right Arm, BP Position: Sitting, BP Cuff Size: Regular Adult) Pulse 73 SpO2 97% General: Alert and oriented Integumentary: Normal color, no rash, no lesions. HEENT: EOM, pupils equal, round and reactive. Cardiovascular: Pulse regular. Extremities: Edema and Varicose veins; Neurological: Normal cognition and motor skills. Diagnostic tests reviewed for today's visit: Most recent labs Most recent imaging IMPRESSION: Ms. Healy is a 84 year old female with symptomatic varicose veins, venous insufficiency . PLAN and RECOMMENDATIONS: Continue compression, elevation and exercise Will get updated venous reflux testing and follow up She has GSV reflux on previous scan and would benefit from EVLT as this may help reduce some of the edema. SIGNATURE: Jannie Proctor DO PATIENT NAME: Florecita Healy DATE: February 09, 2025 TIME: 10:14 AM documented in this encounter [facility] 02-05-2025 History of Presen t illness Narrative Radiology Service Progress Note PATIENT NAME: Florecita Healy DATE OF SERVICE: February 05, 2025 TIME: 9:58 AM PATIENT IDENTITY VERIFICATION COMPLETED USING TWO (2) IDENTIFIERS: Name and Date of confirmed by patient verbally. FALL SCREENING: Has the patient had 2 falls in the last year or 1 fall with injury or currently using an Ambulatory Assistive Device (Walker, Cane, Wheelchair, Crutches, etc.)? No PATIENT GENDER DATA: Assigned female at . status: : No status: NO. PATIENT RELEVANT IMPLANT DATA REVIEWED: Not Applicable PATIENT PRESENTS WITH AN IMPLANTABLE OR ATTACHED TAX PROFESSIONAL: No RADIOLOGY DEPARTMENT: General X-ray: Exam(s) Completed: Spine X-Ray(s): Thoracic PERIPHERAL IV DATA: Not applicable SIGNED BY: RT Tamika(R) February 05, 2025 9:58 AM documented in this encounter [facility] 02-05-2025 Note [facility] 02-04-2025 Telephone encounter Note Patient notified. 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 Needs a new order placed. No need to contact patient back after order filed. [facility] 02-04-2025 Miscellaneous Notes Patient notified. 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 Needs a new order placed. No need to contact patient back after order filed. Anemia persists but is stable. Iron and vitamins are ok. Do stool test we gave her to rule out gi bleeding. Add multivitamin with iron and recheck labs in one month documented in this encounter [facility] 02-04-2025 Instructions Amy Fry APRN.[facility] - 02/04/2025 10:56 AM EDT Images from the original note were not included. 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 Continue atorvastatin for secondary stroke prevention and LDL goal below 70. Continue to monitor blood pressure goal between 100/60 and 130/80. Avoid hypotension due to intracranial atherosclerosis Continued smoking cessation Regular PCP follow up for vascular risk factor management Follow up in 6 months -Regular follow up with primary care doctor for health maintenance -Assist ensuring blood pressure and cholesterol are at goal -Screen and manage diabetes -Lifestyle modification -- Establish goals -Diet -Regular Exercise as discussed -Establish weight goals with primary care doctor -Additional stroke reduction measures and stroke warning signs are listed below. Please do not hesitate to call if you have any questions Amy Fry CNP [facility] Nurse Practitioner [place], [place] [address] Office: [phone] Appointments: [phone] Stroke Signs and Symptoms: *Stroke is a medical emergency. Know the warning signs of stroke: Sudden numbness or weakness of the face, arm or leg, especially on one side of the body Sudden confusion, trouble speaking, or understanding Sudden trouble seeing in one eye, or both eyes Sudden trouble walking, dizziness, loss of balance, or coordination Sudden severe headache with no known cause *If you, or someone with you, has one or more of these signs, don't delay! Immediately call 911, or the emergency medical services (EMS) number so an ambulance can be sent for you. Also, check the time so that you will know when the symptoms first appeared. It is very important to take immediate action, every second counts. Medical treatment may be available if action is taken early enough. ~~~~~~~~~~~~~~~~~~~~~~~~~~~~~~~~ ~~~~~~~~~~~~~~~~~~~~~~~~~~~~~~~~ ~~~~~~~~ General Guidelines to Help Reduce Risk of Recurrent Stroke Blood Pressure Management: Blood Pressure reduction is recommended for both prevention of recurrent stroke and prevention of other vascular events in persons who have had an ischemic stroke or TIA and are beyond the first 24 hours. Several lifestyle modifications have been associated with BP reduction and are a reasonable part of a comprehensive antihypertensive therapy. These modifications include: - salt restriction (less than 2 grams per day) - weight loss - consumption of a diet rich in fruits, vegetables, and low-fat dairy products - regular aerobic physical activity - limited alcohol consumption Goal: Prehypertension (BP less than 130/80 mm Hg): - Perform annual BP screening and lifestyle modifications Hypertension: (BP greater than or equal to 130/80 mm Hg) - Combine medications with above lifestyle modifications to reach your goal blood pressure as defined above. - Monitor your blood pressure at home regularly to ensure you are reaching your goals Diabetes Mellitus: - the goal for glycemic control should be individualized based on the risk for adverse events, patient characteristics and preferences, and, for most patients with diabetes, achieving a goal of HbA1c <=7% is recommended to reduce risk for microvascular complications. - treatment of diabetes should include glucose-lowering medications with proven cardiovascular benefit to reduce the risk for future major adverse cardiovascular events (eg, stroke, heart attack) Cholesterol and Lipid Management - Statin (rosuvastatin or atorvastatin) therapy with intensive lipid-lowering effects is recommended to reduce risk of stroke and cardiovascular events among patients with ischemic stroke or TIA who have LDL cholesterol > 100 mg/dL, or evidence of atherosclerosis. - A goal of LDL cholesterol < 70 mg/dL for stroke or TIA patients on lipid lowering therapy is recommended. - Ezetimibe in combination with statin therapy to lower the LDL cholesterol < 70 mg/DL is recommended, if statin therapy alone is insufficient to attain this treatment target. - For patients with ischemic stroke at very high risk, already taking maximally tolerated statin and ezetimibe and still have an LDL cholesterol > 70 mg/dL, it is reasonable to treat with a proprotein convertase subtilisin/kexin type 9 (PCSK9) inhibitor to prevent atherosclerotic cardiovascular or cerebrovascular events. - In patients with ischemic stroke or TIA, with fasting triglycerides 135 to 499 mg/dL and LDL cholesterol of 41 to 100 mg/dL, on moderate- or high-intensity statin therapy, with HbA1c <10%, and with no history of pancreatitis, atrial fibrillation, or severe heart failure, treatment with icosapent ethyl (IPE) 2 g twice a day is reasonable to reduce risk of recurrent stroke Diet: - Reduced sodium and increased potassium intake; DASH-style diet rich in fruits and vegetables (https://www.nhlbi.nih.gov/educa tion/appm-tgmugv-rurd) - Consider Mediterranean diet supplemented with nuts Smoking and Tobacco Use: - Strongly recommend smoking and tobacco use cessation to reduce risk of stroke. - Counseling, nicotine products, and oral smoking cessation medications are effective for helping smokers quit and can be provided if needed. Alcohol Consumption: - Patients with ischemic stroke or TIA who drink greater than or equal to 2 alcoholic drinks a day, should eliminate alcohol use or reduce their consumption of alcohol to less than equal to 1 alcohol drink per day to reduce stroke risk Exercise - In patients with stroke or TIA who are capable of physical activity, engaging in at least moderate-intensity aerobic activity for a minimum of 10 minutes 4 times a week or vigorous-intensity aerobic activity for a minimum of 20 minutes twice a week is indicated to lower the risk of recurrent stroke - In patients with deficits after stroke that impair their ability to exercise, supervision of an exercise program by a health child care associate teacher such as a physical therapist or cardiac rehabilitation professional, in addition to routine rehabilitation, can be beneficial for secondary stroke prevention - In individuals with stroke or TIA who sit for long periods of uninterrupted time during the day, it may be reasonable to recommend breaking up sedentary time with intervals as short as 3 minutes of standing or light exercise every 30 minutes for their cardiovascular health Adapted from the [place] Heart Association/[place] Stroke Association: 202 Guideline for the Prevention of Stroke in Patients With Stroke and Transient Ischemic Attack documented in this encounter [facility] 02-04-2025 History of Presen t illness Narrative [facility] Established Visit Consultation is requested by: Aylin Paz [id number] [facility] [id number] PCP: [place] [address] CEREBROVASCULAR HISTORY Florecita Healy is a 84 year old female presenting for hospital discharge follow up. Admitted to [facility] 10/20-10/27/24. From discharge summary aken from the admitting HPI: 84 yo F with PMH HTN, HLD, smoking (40 py), CKD 3, hypothyroidism, and venous insufficiency. Most recent LDL was 63 and A1c was 5.0%. Of note, the patient reports having BP in the 150-180/80 range at home. Presenting with L sided weakness. LKW 11 pm on 10/18/24. She then woke up the next morning with L leg weakness, making it difficult to ambulate. She states that her L arm was subjectively weak as well but was much more mild. Denies any other symptoms, including speech changes, vision changes, or sensory changes. She presented to [facility] ED, where NIHSS was 2 (LFD and dysarthria). iGluc was 115. iBP was 175/77. CTH without acute process. 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 She was loaded on 300 mg Plavix and transferred to [facility] for further management. The patient was admitted to the neurological step down unit, under the stroke service, for closer monitoring. Routine stroke labs were done, significant for: LDL 87, hemoglobin A1C 5, and TSH 3.850. The patient passed the initial swallow screen, tolerating an oral diet well. The patient was started on Lovenox and IPCs for DVT prophylaxis. MRI brain, stroke protocol, revealed a right olmos radiata infarct. Echo with LVH, no wall motion abnormality, left atrium normal, and ejection fraction 59%. Etiology of infarct small vessel disease versus intracranial athero disease. 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 The patient was started on Aspirin and Plavix for stroke prevention. Patient should continue dual antiplatelet therapy for 90 days then monotherapy with Aspirin. Protonix started for GI prophylaxis while on dual antiplatelets. The patient was also started on Atorvastatin 80 for stroke prevention. Patient with uncontrolled hypertension. Patient originally with permissive hypertension then home Losartan started with a plan to bring the patient to normotension slowly. Avoid hypotension due to high risk of hypoperfusion due to severe intracranial athero. Losartan continued to be increased and her home Amlodipine was changed to Nifedipine. Her home coreg was not resumed at this time, but should be restarted if needed. The patient was educated on the importance of home blood pressure monitoring. She was also educated on the importance of smoking cessation, a healthy diet, and exercise. Lung nodule seen on CTA, incidental finding. Plan for CT chest in 6-12 months for stability. Physical and occupational therapy was consulted, recommending home therapy. The patient refused, as she does not want anyone in her house. She was discharged on 10/23, with outpatient therapy. Reason for Visit: ischemic stroke Date of Last Event: 10/20/2024 Antiplatelets/Anticoagulants: Aspirin Statins: Atorvastatin Residual Deficits: Motor weakness Current PT/OT/ST: None Current use of a mobility aid for walking/getting around: None Office visit with Lionel Lawson [facility] 11/03/24 Not smoking Blood pressure better controlled Left side weakness more noticeable in the left leg than arm No numbness Lives alone with dog Family lives close by Fell the other night--tripped over some clothes on the floor Legs swollen Compliant with medications - vision not changed but there is pain behind eyeballs per patient--temporal throbbing no scalp irritation Office Visit 02/04/25 -presents for follow up -denies any new stroke-like symptoms -left side weakness better -fell shortly after stroke in October and since then has had thoracic back pain towards the left side -ice, heat, tylenol doesn't help. Feels like no one is listening to her about this -BLE edema- PCP referred to vascular medicine for venous insufficiency, scheduled for 02/09 -aspirin + plavix x 90 days completed a few kerr ago, getting bruises but she hopes they will get better without the plavix -now on ASA monotherapy -lipitor 80mg -BP 99/73 - at home 120-135 - had a oatmeal cake today -quit smoking after stroke PAST MEDICAL HISTORY Diagnosis Date Abnormal ultrasound of breast 12/02/15 Left Breast cancer of upper-outer quadrant of left female breast ([facility]) Chronic obstructive pulmonary disease (COPD) ([facility]) Chronic pain 06/03/2012 sees pain management. Diarrhea 11/06/2022 Hyperlipidemia 06/03/2012 Hypertension 06/03/2012 Nausea & vomiting 11/06/2022 Osteopenia P[address] Pulmonary nodule Dr. Dawn Sepsis ([facility]) 11/05/2022 Snoring PAST SURGICAL HISTORY Procedure Laterality [...] Social History Tobacco Use Smoking status: Former Current packs/day: 1.00 Average packs/day: 1 pack/day for 40.0 years (40.0 ttl pk-yrs) Types: Cigarettes Smokeless tobacco: Never Vaping Use Vaping status: Never Used Substance Use Topics Alcohol use: No Drug use: No MEDICATIONS Current Outpatient Medications Medication Sig Multivitamins-Iron tab Take 1 tablet by mouth once daily. carvedilol (COREG) 6.25 mg tablet Take 1 tablet by mouth two times a day. pregabalin (LYRICA) 75 mg capsule Take 1 capsule by mouth daily at bedtime for 180 days. NIFEdipine ER (PROCARDIA XL) 90 mg 24 hr tablet Take 1 tablet by mouth once daily. losartan (COZAAR) 100 mg tablet Take 1 tablet by mouth once daily. pantoprazole DR (PROTONIX) 40 mg tablet Take 1 tablet by mouth daily at 6 am. atorvastatin (LIPITOR) 80 mg tablet Take 1 tablet by mouth daily at bedtime. baclofen 10 mg tablet Take 1 tablet by mouth daily at bedtime. levothyroxine (SYNTHROID) 25 mcg tablet Take 1 tablet by mouth once daily. Except 2 tabs by mouth every Sunday and Sunday Cephalexin 500 mg tab Take 1 tablet by mouth two times a day. aspirin 81 mg chewable tablet Take 1 tablet by mouth once daily. ammonium lactate (LAC-HYDRIN) 12 % cream Apply to affected area as needed. cyanocobalamin (VITAMIN B-12) 100 mcg tab Take 100 mcg by mouth once daily. acetaminophen (TYLENOL) 325 mg tablet Take 2 tablets by mouth every 4 hours as needed for pain. cholecalciferol, vitamin D3, (VITAMIN D3 ORAL) Take 2,000 Units by mouth once daily. alpha tocopheryl acetate (VITAMIN E) 400 unit capsule Take 400 Units by mouth once daily. diphenhydrAMINE-Acetaminophen 25-500 mg tab Take 2 tablets by mouth daily at bedtime. furosemide (LASIX) 20 mg tablet Take 1 tablet by mouth once daily for 3 days. No current facility-administered medications for this visit. ALLERGIES ALLERGIES Allergen Reactions Animal Dander Intolerance Darvocet A500 [Prop* Mental Status Change Dust Other: See Comments Grass Pollen Other: See Comments Mold Other: See Comments Soma [Carisoprodol] Swelling, Itching Trees Other: See Comments PHYSICAL EXAMINATION BP 99/73 Pulse 79 Ht 165.1 cm (5' 5) Wt 78.5 kg (173 lb) BMI 28.79 kg/m General: Well-developed, well-nourished, in no acute distress. HEENT: Normocephalic, atraumatic. Sclerae anicteric. Oropharynx clear. Neck: No JVD Heart: Skin well-perfused. Lungs: Breathing comfortably on room air. Extremities: No edema, cyanosis, or clubbing. Skin: No rash or ecchymoses. Neurological: Awake, alert, oriented to person, place, and time. Speech fluent, no dysarthria. Recall, comprehension intact. Good attention and insight into illness. Cranial Nerves: Extraocular movements intact without nystagmus. Visual lynch full. Facial movements normal and symmetric. Motor: Normal bulk and tone. Mild LUE weakness. Otherwise Strength 5/5 throughout. No pronator drift or tremor. Gait: Narrow-based, normal spaced and stable LABS Cholesterol: Cholesterol, Total (mg/dL) Date Value 02/27/2023 143 07/21/2019 170 Total Cholesterol, Nonfasting (mg/dL) Date Value 10/20/2024 161 04/01/2021 173 LDL Cholesterol (mg/dL) Date Value 07/21/2019 104 LDL Cholesterol, Nonfasting (mg/dL) Date Value 10/20/2024 87 04/01/2021 103 HDL Cholesterol (mg/dL) Date Value 02/27/2023 46 07/21/2019 36 HDL Cholesterol, Nonfasting (mg/dL) Date Value 10/20/2024 50 04/01/2021 38 Triglyceride (mg/dL) Date Value 02/27/2023 74 07/21/2019 148 Triglycerides, Nonfasting (mg/dL) Date Value 10/20/2024 118 04/01/2021 158 Diabetes: Hemoglobin A1C (%) Date Value 10/21/2024 5.0 10/28/[address] brain 10/19/2024 ([facility]) IMPRESSION: No CT evidence of an acute territorial infarct or acute intracranial hemorrhage CTA head and neck 10/19/2024 ([facility]) IMPRESSION: * Severe stenosis of the left proximal M1 with multiple collaterals and small caliber patent visualized distal branches, likely chronic. Severe stenosis of the one of the inferior division proximal M2 branches with paucity of the distal cortical branches also considered chronic. * Short segment mild stenosis of the right proximal M1. Severe stenosis of the one of the superior division M2 branches. Rest of the M1 and distal cortical branches appear patent without high-grade stenosis. * Subtle questionable opacification of the right P1 and P2 segments concerning for severe stenosis/near complete occlusion. Reconstitution of the distal segments with some opacification likely through collaterals. * Occlusion of the nondominant mid/distal left V4 segment vertebral artery. * Multifocal severe stenosis along the distal right V4 segment vertebral artery and basilar artery. * Left posterior cerebral artery and anterior cerebral arteries are patent without high-grade stenosis. * Tiny atherosclerotic calcifications along the bilateral internal carotid arteries without significant stenosis. * Atherosclerotic calcification at the origin of the right vertebral artery causing short segment moderate stenosis. Rest of the cervical vertebral arteries are patent without significant stenosis. * Short segment mild stenosis at the origin of the left common carotid artery and moderate to severe stenosis of the proximal right subclavian artery due to mixed density plaque formations. Normal flow associated contrast filling distally. * Incidentally noted pulmonary nodules. Comparison with prior dedicated previous chest CT imaging if available otherwise, see recommendation below. Incidental Finding: Follow-up Acuity: Incidental Finding: Solid: 6-8 mm (solitary nodule) Routing Code: RI_1 Recommendation: CT Chest WO IVCON Time Frame: 6-12 months Comments: If stable on follow-up imaging, a repeat chest CT exam in 12 months (18-24 months from the initial exam) is recommended --END OF FINDING-- CT brain 10/19/2024 ([facility]) IMPRESSION: No acute intracranial process MRI brain 10/20/2024 IMPRESSION: Small acute nonhemorrhagic infarcts in the right olmos radiata Echo 10/20/2024 ONCLUSIONS: - Exam indication: Stroke - The left ventricle is normal in size. There is left ventricular hypertrophy. Left ventricular systolic function is normal. EF = 59 5% (2D biplane) - The right ventricle is normal in size. Right ventricular systolic function is normal. - Negative agitated saline study performed, clips 40 & 43. - Exam was compared with the prior [facility] echocardiographic exam performed on 03/19/2020. Similar findings Patient Entered Questionnaires PROMIS/NeuroQoL Score Percentiles 07/13/2017 PROMIS Global Health Scale Physical Health Percentile 10 Mental Health Percentile 43 Percentiles provide an indication of how a patient's score ranks in relation to the [place] general population. > 31st percentile is within normal limits or better * < 31st percentile is at least SD worse than population, which may be clinically relevant < 16th percentile is at least 1 SD worse than population and warrants attention Depression Screenin07/30/2018 05/27/2018 03/26/2018 PHQ-9 Score 5 7 5 Self-Harm Response Not at all Not at all Not at all PHQ-9 Scores: PHQ-9 Self-Harm (Item 9) Response: 0 - 9 No to Mild depression 0 - Not at all 10 - 14 Moderate depression 1 - Several Days > 15 Severe depression 2 - More than half the days 3 - Nearly every day Stroke Mechanism and Scales Ischemic or TIA: Ischemic Stroke TOAST Mechanism (CCF-MODIFIED): Small-Vessel Occlusion (Lacune) and Large-Artery Atherosclerosis (Embolus/Thrombosis) - Small vessel disease vs ICAD Large-Artery Atherosclerosis (Embolus/Thrombosis): Intracranial Disease - Anterior Circulation Modified Arcadio Score: Score: 1 NIH Stroke Scale: LOC: 0 LOC Questions: 0 LOC Commands: 0 LOC Normal Gaze: 0 Visual Lynch: 0 Facial Palsy: 0 Motor Left Arm: 0 Motor Right Arm: 0 Motor Left Le Motor Right Le Limb Ataxia: 0 Sensory: 0 Language: 0 Dysarthria: 0 Extinction/Neglect: 0 Total Daily NIHSS: 0 Cerebrovascular Disease w/o Stroke Event: Extracranial Stenosis/Vasculopathy 10/20/2024 Stroke Mechanism Ischemic Stroke or TIA Ischemic Stroke TOAST Mechanism (CCF-MODIFIED) Small-Vessel Occlusion (L[place]une) IMPRESSION Right olmos radiata infarct October 2024. 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 Continue atorvastatin for secondary stroke prevention and LDL goal below 70. Continue to monitor blood pressure goal between 100/60 and 130/80. Avoid hypotension due to intracranial atherosclerosis Continued smoking cessation Regular PCP follow up for vascular risk factor management Follow up in 6 months Medical Decision Making: Medical Decision Making Level: 1 - N/A I spent a total of 38 minutes on the date of service which included preparing to see the patient, [id number] patient care, completing clinical documentation, obtaining and/or reviewing separately obtained history, performing a medically appropriate examination, counseling and educating the patient/family/caregiver, ordering medications, tests, or procedures, independently interpreting results (not separately reported), communicating results to the patient/family/caregiver, and care coordination (not separately reported) SIGNATURE Amy Fry APRN.CNP CC Aylin Sarkar [facility] [id number] [address] [place] [phone] documented in this encounter [facility] 02-04-2025 Note HNO ID: [id number] Author: AMY FRY APRN.CNP Service: ? Author Type: Nurse Practitioner Type: Progress Notes Filed: 02/04/2025 11:48 Note Text: [facility] Established Visit Consultation is requested by: Aylin Sarkar [facility] [id number] PCP: [place] [address] CEREBROVASCULAR HISTORY Florecita Healy is a 84 year old female presenting for hospital discharge follow up. Admitted to [facility] 10/20-10/27/24. From discharge summary arun from the admitting HPI: 84 yo F with PMH HTN, HLD, smoking (40 py), CKD 3, hypothyroidism, and venous insufficiency. Most recent LDL was 63 and A1c was 5.0%. Of note, the patient reports having BP in the 150-180/80 range at home. Presenting with L sided weakness. LKW 11 pm on 10/18/24. She then woke up the next morning with L leg weakness, making it difficult to ambulate. She states that her L arm was subjectively weak as well but was much more mild. Denies any other symptoms, including speech changes, vision changes, or sensory changes. She presented to [place] ED, where NIHSS was 2 (LFD and dysarthria). iGluc was 115. iBP was 175/77. CTH without acute process. 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 She was loaded on 300 mg Plavix and transferred to [facility] for further management. The patient was admitted to the neurological step down unit, under the stroke service, for closer monitoring. Routine stroke labs were done, significant for: LDL 87, hemoglobin A1C 5, and TSH 3.850. The patient passed the initial swallow screen, tolerating an oral diet well. The patient was started on Lovenox and IPCs for DVT prophylaxis. MRI brain, stroke protocol, revealed a right olmos radiata infarct. Echo with LVH, no wall motion abnormality, left atrium normal, and ejection fraction 59%. Etiology of infarct small vessel disease versus intracranial athero disease. 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 The patient was started on Aspirin and Plavix for stroke prevention. Patient should continue dual antiplatelet therapy for 90 days then monotherapy with Aspirin. Protonix started for GI prophylaxis while on dual antiplatelets. The patient was also started on Atorvastatin 80 for stroke prevention. Patient with uncontrolled hypertension. Patient originally with permissive hypertension then home Losartan started with a plan to bring the patient to normotension slowly. Avoid hypotension due to high risk of hypoperfusion due to severe intracranial athero. Losartan continued to be increased and her home Amlodipine was changed to Nifedipine. Her home coreg was not resumed at this time, but should be restarted if needed. The patient was educated on the importance of home blood pressure monitoring. She was also educated on the importance of smoking cessation, a healthy diet, and exercise. Lung nodule seen on CTA, incidental finding. Plan for CT chest in 6-12 months for stability. Physical and occupational therapy was consulted, recommending home therapy. The patient refused, as she does not want anyone in her house. She was discharged on 10/23, with outpatient therapy. Reason for Visit: ischemic stroke Date of Last Event: 10/20/2024 Antiplatelets/Anticoagulants: Aspirin Statins: Atorvastatin Residual Deficits: Motor weakness Current PT/OT/ST: None Current use of a mobility aid for walking/getting around: None Office visit with Lionel Lawson CNP 11/03/24 Not smoking Blood pressure better controlled Left side weakness more noticeable in the left leg than arm No numbness Lives alone with dog Family lives close by Fell the other night--tripped over some clothes on the floor Legs swollen Compliant with medications - vision not changed but there is pain behind eyeballs per patient--temporal throbbing no scalp irritation Office Visit 02/04/25 -presents for follow up -denies any new stroke-like symptoms -left side weakness better -fell shortly after stroke in October and since then has had thoracic back pain towards the left side -ice, heat, tylenol doesn't help. Feels like no one is listening to her about this -BLE edema- PCP referred to vascular medicine for venous insufficiency, scheduled for 02/09 -aspirin + plavix x 90 days completed a few kerr ago, getting bruises but she hopes they will get better without the plavix -now on ASA monotherapy -lipitor 80mg -BP 99/73 - at home 120-135 - had a oatmeal cake today -quit smoking after stroke PAST MEDICAL HISTORY Diagnosis Date Abnormal ultrasound of breast 12/02/15 Left Breast cancer of upper-outer quadrant of left female breast (HCC) Chronic obstructive pulmonary disease (COPD) (HCC) Chronic pain 06/03/2012 se (more content not included)... [facility] 02-04-2025 Telephone encounter Note Anemia persists but is stable. Iron and vitamins are ok. Do stool test we gave her to rule out gi bleeding. Add multivitamin with iron and recheck labs in one month [facility] 01-27-2025 Telephone encounter Note Patient was made aware of the results. Patient verbalizes understanding. Sheron French Ma [facility] 01-27-2025 Miscellaneous Notes Patient was made aware of the results. Patient verbalizes understanding. Sheron French Ma Labs are ok other than Kidney function is slightly reduced but stable. She is mildly anemic. Her bnp or heart failure test is slightly up. (Just had echo so does not need repeated) Covid, flu and rsv were ok. Add lasix once a day for three days Call if any more weight gain or worsening edema or shortness of breath. Recheck labs in one week. See one of us in two weeks. documented in this encounter [facility] 01-27-2025 Telephone encounter Note Labs are ok other than Kidney function is slightly reduced but stable. She is mildly anemic. Her bnp or heart failure test is slightly up. (Just had echo so does not need repeated) Covid, flu and rsv were ok. Add lasix once a day for three days Call if any more weight gain or worsening edema or shortness of breath. Recheck labs in one week. See one of us in two weeks. [facility] 01-26-2025 History of Presen t illness Narrative Radiology Service Progress Note PATIENT NAME: Florecita Healy DATE OF SERVICE: January 26, 2025 TIME: 4:30 PM PATIENT IDENTITY VERIFICATION COMPLETED USING TWO (2) IDENTIFIERS: Name and Date of confirmed by patient verbally. FALL SCREENING: Has the patient had 2 falls in the last year or 1 fall with injury or currently using an Ambulatory Assistive Device (Walker, Cane, Wheelchair, Crutches, etc.)? No PATIENT GENDER DATA: Assigned female at . status: : No status: NO. PATIENT RELEVANT IMPLANT DATA REVIEWED: Not Applicable PATIENT PRESENTS WITH AN IMPLANTABLE OR ATTACHED TAX PROFESSIONAL: No RADIOLOGY DEPARTMENT: General X-ray: Exam(s) Completed: Chest X-Ray PERIPHERAL IV DATA: Not applicable SIGNED BY: RT Tamika(R) January 26, 2025 4:30 PM documented in this encounter [facility] 01-26-2025 Note [facility] 01-26-2025 Note SARS-COV-2 (AGENT OF COVID-19) RNA: Not detected INFLUENZA A RNA: Not detected INFLUENZA B RNA: Not detected RESPIRATORY SYNCYTIAL VIRUS (RSV) RNA: Not detected [facility] Comment on above: Performed By: #### [id number] ####[facility] LABCLIA [id number] [place] [address] [place] 01-26-2025 Note [facility] 01-26-2025 History of Presen t illness Narrative Patient presents with: Blood Pressure Edema: States that doesn't wear compression stockings. At this point doesn't have any that fit. Shortness of Breath: Last 3-4 days. Productive but thick she is having trouble getting it up. HPI: Patient presents today for office visit for follow up on bp. She had her coreg increased. She is on nifedipine and lyrica as well that can cause edema. No chest pain Is short of breath the last 3 to 4 days but has had a cough. No fever or chills. Has had weight gain. She attributes it to stopping smoking. She was on diuretics remotely but held due to her renal function. Has been on dual therapy for her stroke. Has completed 90 days, she may stop the plavix. Admits to having headaches since her stroke. Red flags for re-assessment reviewed with patient in detail. Not the worst headaches she has seen. Is following with neurology. Has edema, lymphedema noted in chart dating back at least four to five years. She was to have her left leg operated in 2022 but did not. Has had swelling for years but getting worse on the left. Has had multiple duplexes. Has seen vascular surgery for the same. Dr Proctor's note from 01/09/23 copied and pasted: PLAN and RECOMMENDATIONS: Discussed venous pathology with patient Recommend continued use of compression stockings, elevation and exercise Will get venous reflux testing and follow up to discuss results Will get PVRs to assess for arterial disease Follow up after testing Note was copied and pasted, without alteration from last visit with Rosie: HISTORY OF PRESENT ILLNESS: Florecita Healy is a 84 year old female. Patient presents with: Recheck: 4 week bp check Pt presents today for BP check. At last visit, we added the carvedilol. Finished with home health. Refers that it was worthless. Refers physical therapy is complete. No falls since she was here last. Continues to complain of LE swelling. Continues to feels that is related to her blood pressure medication. Does prop her feet. Does not use compression as states that she has done this before and was not effective. Continues to be smoke-free. Refers that she has been having jeferson increased urination X 1-2 weeks. No dysuria. Refers + odor. No hematuria. Requests that bedtime lyrica be increased to 75 mg, which is what she took previously. Refers that gets a lot of leg pain and restless legs at night that interfere w/ sleep. Echo 10/20/2024 CONCLUSIONS: - Exam indication: Stroke - The left ventricle is normal in size. There is left ventricular hypertrophy. Left ventricular systolic function is normal. EF = 59 5% (2D biplane) - The right ventricle is normal in size. Right ventricular systolic function is normal. - Negative agitated saline study performed, clips 40 & 43. - Exam was compared with the prior echocardiographic exam performed on 03/19/2020. Similar findings Last Venous duplex in 01/12/23: on the right: RIGHT SIDE - DEEP VEINS Successful ablation of the great saphenous vein to within 3.4 cm of the saphenofemoral junction. The inferior epigastric vein appears patent. The external iliac vein, common femoral vein, and femoral vein proximal are patent with respirophasic flow. There is no evidence of deep venous thrombosis. MEDICATIONS: Current Outpatient Medications Medication Sig carvedilol (COREG) 6.25 mg tablet Take 1 tablet by mouth two times a day. pregabalin (LYRICA) 75 mg capsule Take 1 capsule by mouth daily at bedtime for 180 days. NIFEdipine ER (PROCARDIA XL) 90 mg 24 hr tablet Take 1 tablet by mouth once daily. clopidogrel (PLAVIX) 75 mg tablet Take 1 tablet by mouth once daily. losartan (COZAAR) 100 mg tablet Take 1 tablet by mouth once daily. pantoprazole DR (PROTONIX) 40 mg tablet Take 1 tablet by mouth daily at 6 am. atorvastatin (LIPITOR) 80 mg tablet Take 1 tablet by mouth daily at bedtime. baclofen 10 mg tablet Take 1 tablet by mouth daily at bedtime. levothyroxine (SYNTHROID) 25 mcg tablet Take 1 tablet by mouth once daily. Except 2 tabs by mouth every Sunday and Sunday Cephalexin 500 mg tab Take 1 tablet by mouth two times a day. aspirin 81 mg chewable tablet Take 1 tablet by mouth once daily. ammonium lactate (LAC-HYDRIN) 12 % cream Apply to affected area as needed. cyanocobalamin (VITAMIN B-12) 100 mcg tab Take 100 mcg by mouth once daily. acetaminophen (TYLENOL) 325 mg tablet Take 2 tablets by mouth every 4 hours as needed for pain. cholecalciferol, vitamin D3, (VITAMIN D3 ORAL) Take 2,000 Units by mouth once daily. alpha tocopheryl acetate (VITAMIN E) 400 unit capsule Take 400 Units by mouth once daily. diphenhydrAMINE-Acetaminophen 25-500 mg tab Take 2 tablets by mouth daily at bedtime. No current facility-administered medications for this visit. [...] Osteopenia Psoriasis Pulmonary nodule Dr. Dawn Sepsis ([facility]) 11/05/2022 Snoring PAST SURGICAL HISTORY Procedure Laterality [...] Social History Tobacco Use Smoking status: Former Current packs/day: 1.00 Average packs/day: 1 pack/day for 40.0 years (40.0 ttl pk-yrs) Types: Cigarettes Smokeless tobacco: Never Vaping Use Vaping status: Never Used Substance Use Topics Alcohol use: No Drug use: No Reviewed current medications, allergies, past medical history, surgical history, family history and social history today. REVIEW OF SYSTEMS All other reviewed and negative other than HPI. VITALS: BP 138/60 Pulse 73 Wt 78.5 kg (173 lb) SpO2 96% BMI 28.79 kg/m Last 4 Encounter Wt Readings: Date: Wt: 01/26/2025 78.5 kg (173 lb) 11/03/2024 75.1 kg (165 lb 10.8 oz) 10/19/2024 73 kg (160 lb 15 oz) 10/19/2024 73 kg (161 lb) PHYSICAL EXAMINATION: General appearance: Well appearing, alert, in no acute distress, well-hydrated, well nourished. Skin: Skin color, texture, turgor normal, no suspicious rashes or lesions Head: Normocephalic, no masses, lesions, tenderness or abnormalities Eyes: Anicteric sclera. Pupils are equally round and reactive to light. Extraocular movements are intact. Lungs: Lungs clear to auscultation. No wheezing, rhonchi, rales Heart: RRR without murmur, gallop, or rubs. No ectopy Abdomen: Normal abdominal exam, Abdomen soft, non-tender. Bowel sounds normal. No masses, organomegaly Extremities: No deformities, chronic edema. No redness or warmth., skin discoloration, clubbing or cyanosis. Good capillary refill. Musculoskeletal: No joint swelling, deformity, or tenderness ASSESSMENT/PLAN: 1. Ischemic stroke (HCC) - ICD9: 434.91, ICD10: I63.9 (primary diagnosis) - stable. Continue to follow with neuro. Has completed 90 days of plavix. Continue asa. 2. Other cerebral infarction (HCC) - ICD9: 434.91, ICD10: I63.89 - stable 3. Primary hypertension - ICD9: 401.9, ICD10: I10 - Controlled - Continue current medications 4. Venous insufficiency - ICD9: 459.81, ICD10: I87.2 - CONSULT TO VASCULAR MEDICINE 5. Hyperlipidemia, unspecified hyperlipidemia type - ICD9: 272.4, ICD10: E78.5 - Controlled - Continue current medications 6. Stage 3a chronic kidney disease (HCC) - ICD9: 585.3, ICD10: N18.31 - stable. 7. Hypothyroidism, unspecified type - ICD9: 244.9, ICD10: E03.9 - stable. 8. Malignant neoplasm of upper-outer quadrant of left breast in female, estrogen receptor positive (HCC) - ICD9: 174.4, V86.0, ICD10: C50.412, Z17.0 - doing well. 9. History of breast cancer - ICD9: V10.3, ICD10: Z85.3 - as above. 10. Other cough - ICD9: 786.2, ICD10: R05.8 - ? Uri. Doubt chf but will check labs. - COVID & INFLUENZA A/B & RSV PCR, ROUTINE - XR CHEST 2V FRONTAL/LAT 11. Weight gain - ICD9: 783.1, ICD10: R63.5 - as above. Red flags for re-assessment reviewed with patient in detail. Check labs and xray. - COMPLETE BLOOD COUNT AND DIFFERENTIAL - BASIC METABOLIC PANEL - THYROID STIMULATING HORMONE 12. SOB (shortness of breath) - ICD9: 786.05, ICD10: R06.02 - XR CHEST 2V FRONTAL/LAT - NT PRO BNP Tu Canela MD documented in this encounter [facility] 01-16-2025 Telephone encounter Note Pt states she was only supposed to be on the Plavix for 90 days. Pt did not know if provider wanted her to continue this medication or if she was done. Please refill if necessary. Pt states she is out of some of these medications and needs sent GAL. Pt asked if she could get 3 month supply of medications sent as it was more convenient for her. The patient has been identified by name and date of : Yes Caregiver verified no other encounters exist for this prescription request: Yes Caregiver confirmed with patient/requestor that no other refills are due, in the near future, with this provider at this time: Yes The last office visit in the department: 12/17/2024 Does the patient have a future office visit with this provider/department: Yes 01/26/2025 Requested Prescriptions Pending Prescriptions Disp Refills carvedilol (COREG) 6.25 mg tablet 180 tablet 3 Sig: Take 1 tablet by mouth two times a day. pregabalin (LYRICA) 75 mg capsule 90 capsule 3 Sig: Take 1 capsule by mouth daily at bedtime for 60 days. NIFEdipine ER (PROCARDIA XL) 90 mg 24 hr tablet 90 tablet 3 Sig: Take 1 tablet by mouth once daily. clopidogrel (PLAVIX) 75 mg tablet Sig: Take 1 tablet by mouth once daily. losartan (COZAAR) 100 mg tablet 90 tablet 3 Sig: Take 1 tablet by mouth once daily. pantoprazole DR (PROTONIX) 40 mg tablet 90 tablet 3 Sig: Take 1 tablet by mouth daily at 6 am. atorvastatin (LIPITOR) 80 mg tablet 90 tablet 3 Sig: Take 1 tablet by mouth daily at bedtime. baclofen 10 mg tablet 90 tablet 3 Sig: Take 1 tablet by mouth daily at bedtime. levothyroxine (SYNTHROID) 25 mcg tablet 114 tablet 3 Sig: Take 1 tablet by mouth once daily. Except 2 tabs by mouth every Sunday and Sunday Jie Lima RN January 16, 2025 9:[address] [facility] 01-16-2025 Miscellaneous Notes Pt states she was only supposed to be on the Plavix for 90 days. Pt did not know if provider wanted her to continue this medication or if she was done. Please refill if necessary. Pt states she is out of some of these medications and needs sent GAL. Pt asked if she could get 3 month supply of medications sent as it was more convenient for her. The patient has been identified by name and date of : Yes Caregiver verified no other encounters exist for this prescription request: Yes Caregiver confirmed with patient/requestor that no other refills are due, in the near future, with this provider at this time: Yes The last office visit in the department: 12/17/2024 Does the patient have a future office visit with this provider/department: Yes 01/26/2025 Requested Prescriptions Pending Prescriptions Disp Refills carvedilol (COREG) 6.25 mg tablet 180 tablet 3 Sig: Take 1 tablet by mouth two times a day. pregabalin (LYRICA) 75 mg capsule 90 capsule 3 Sig: Take 1 capsule by mouth daily at bedtime for 60 days. NIFEdipine ER (PROCARDIA XL) 90 mg 24 hr tablet 90 tablet 3 Sig: Take 1 tablet by mouth once daily. clopidogrel (PLAVIX) 75 mg tablet Sig: Take 1 tablet by mouth once daily. losartan (COZAAR) 100 mg tablet 90 tablet 3 Sig: Take 1 tablet by mouth once daily. pantoprazole DR (PROTONIX) 40 mg tablet 90 tablet 3 Sig: Take 1 tablet by mouth daily at 6 am. atorvastatin (LIPITOR) 80 mg tablet 90 tablet 3 Sig: Take 1 tablet by mouth daily at bedtime. baclofen 10 mg tablet 90 tablet 3 Sig: Take 1 tablet by mouth daily at bedtime. levothyroxine (SYNTHROID) 25 mcg tablet 114 tablet 3 Sig: Take 1 tablet by mouth once daily. Except 2 tabs by mouth every Sunday and Sunday Jie Lima RN January 16, 2025 9:45 AM documented in this encounter [facility] 12-19-2024 Telephone encounter Note Pt notified. She verbalized understanding. Janey Tamayo LPN [facility] 12-19-2024 Miscellaneous Notes Pt notified. She verbalized understanding. Janey Tamayo LPN Can please let patient know that her urine culture did confirm a urinary infection and that she is on the correct antibiotic. Rosie Syed APRN.CNP documented in this encounter [facility] 12-19-2024 Telephone encounter Note Can please let patient know that her urine culture did confirm a urinary infection and that she is on the correct antibiotic. Rosie Syed APRN.CNP [facility] 12-17-2024 Instructions Rosie Syed APRN.CNP - 12/17/2024 11:06 AM EST Increase the carvedilol to 6.25 mg twice daily. New script sent. Start the cephalexin twice daily. Recheck in 1 month. documented in this encounter [facility] 12-17-2024 Note [facility] 12-17-2024 History of Presen t illness Narrative This is a 84 year old female who presents today with: Patient presents with: Recheck: 4 week bp check HISTORY OF PRESENT ILLNESS: Florecita Healy is a 84 year old female. Patient presents with: Recheck: 4 week bp check Pt presents today for BP check. At last visit, we added the carvedilol. Finished with home health. Refers that it was worthless. Refers physical therapy is complete. No falls since she was here last. Continues to complain of LE swelling. Continues to feels that is related to her blood pressure medication. Does prop her feet. Does not use compression as states that she has done this before and was not effective. Continues to be smoke-free. Refers that she has been having jeferson increased urination X 1-2 weeks. No dysuria. Refers + odor. No hematuria. Requests that bedtime lyrica be increased to 75 mg, which is what she took previously. Refers that gets a lot of leg pain and restless legs at night that interfere w/ sleep. PAST MEDICAL HISTORY: PAST MEDICAL HISTORY Diagnosis Date Abnormal ultrasound of breast 12/02/15 Left Breast cancer of upper-outer quadrant of left female breast (HCC) Chronic obstructive pulmonary disease (COPD) ([facility]) Chronic pain 06/03/2012 sees pain management. Diarrhea 11/06/2022 Hyperlipidemia 06/03/2012 Hypertension 06/03/2012 Nausea & vomiting 11/06/2022 Osteopenia Psoriasis Pulmonary nodule Dr. Dawn Sepsis ([facility]) 11/05/2022 Snoring PAST SURGICAL HISTORY Procedure Laterality [...] Trees MEDICATIONS Current Outpatient Medications Medication Sig carvedilol (COREG) 3.125 mg tablet Take 1 tablet by mouth two times a day. NIFEdipine ER (PROCARDIA XL) 90 mg 24 hr tablet Take 1 tablet by mouth once daily. losartan (COZAAR) 100 mg tablet Take 1 tablet by mouth once daily. aspirin 81 mg chewable tablet Take 1 tablet by mouth once daily. atorvastatin (LIPITOR) 80 mg tablet Take 1 tablet by mouth daily at bedtime. clopidogrel (PLAVIX) 75 mg tablet Take 1 tablet by mouth once daily. pantoprazole DR (PROTONIX) 40 mg tablet Take 1 tablet by mouth daily at 6 am. ammonium lactate (LAC-HYDRIN) 12 % cream Apply to affected area as needed. pregabalin (LYRICA) 50 mg capsule Take 1 capsule by mouth daily at bedtime for 90 days. baclofen 10 mg tablet Take 1 tablet by mouth daily at bedtime. levothyroxine (SYNTHROID) 25 mcg tablet Take 1 tablet by mouth once daily. Except 2 tabs by mouth every Sunday and Sunday cyanocobalamin (VITAMIN B-12) 100 mcg tab Take 100 mcg by mouth once daily. acetaminophen (TYLENOL) 325 mg tablet Take 2 tablets by mouth every 4 hours as needed for pain. cholecalciferol, vitamin D3, (VITAMIN D3 ORAL) Take 2,000 Units by mouth once daily. alpha tocopheryl acetate (VITAMIN E) 400 unit capsule Take 400 Units by mouth once daily. diphenhydrAMINE-Acetaminophen 25-500 mg tab Take 2 tablets by mouth daily at bedtime. No current facility-administered medications for this visit. FAMILY HISTORY Problem Relation Age of Onset Heart Father other (Black Lung) Father Arthritis Mother RA other (gallbladder) Mother Diabetes Sister Cancer Sister kidney tumor Cancer Brother lung cancer Social History Tobacco Use Smoking status: Former Current packs/day: 1.00 Average packs/day: 1 pack/day for 40.0 years (40.0 ttl pk-yrs) Types: Cigarettes Smokeless tobacco: Never Vaping Use Vaping status: Never Used Substance Use Topics Alcohol use: No Drug use: No EXAM: BP 145/84 Pulse 82 Resp 16 SpO2 98% PHYSICAL EXAM: General Appearance: Well appearing, alert, [...] murmur, gallop, or rubs. No ectopy. Extremities: chronic LE swelling. Venous insuffiencey changes. Neurologic: Gait normal. ASSESSMENT/PLAN: 1. Primary hypertension - ICD9: 401.9, ICD10: I10 (primary diagnosis) - Uncontrolled - Increase carvedilol - Recommend home blood pressure monitoring, to bring results to next visit - Encouraged sodium restriction, DASH or Mediterranean diet - Recommend regular aerobic exercise 2. History of ischemic stroke - ICD9: V12.54, ICD10: Z86.73 Follow-up w/ neurology, as scheduled. 3. Chronic pain syndrome - ICD9: 338.4, ICD10: G89.4 Increase: - PREGABALIN 75 MG CAPSULE Recheck in a month. 4. Leg swelling - ICD9: 729.81, ICD10: M79.89 She would like to stop BP medications. Discussed with patient that unlikely that the swelling is coming from her BP medications. She has hx of venous insufficiency. Discussed that consequences of uncontrolled HTN, specifically another CVA. Then patient started suggesting the swelling started after she had a partial thyroidectomy and that swelling is relate to her taking thyroid medication. Discussed propping legs. Discussed compression, but patient declines, stating that it did not help previously. 5. Acute cystitis without hematuria - ICD9: 595.0, ICD10: N30.00 Will go ahead and start cephalexin. Send urine for culture. - CEPHALEXIN 500 MG TABLET - BACTERIAL CULTURE, URINE Discussed treatment plan and patient voices understanding. Patient's questions answered appropriately. Medications and potential side effects were discussed and patient voices understanding. Return to the office as scheduled or as needed for worsening/no improvement. Rosie Syed APRN.[place]ERIFF documented in this encounter [facility] 12-05-2024 Telephone encounter Note Detailed VM left on Ling's identified voicemail of information below. Shobha Prado LPN [facility] 12-05-2024 Miscellaneous Notes Detailed VM left on Ling's identified voicemail of information below. Shobha Prado LPN ok Ling with [facility] calling to get a verbal order to see pt 1 more time next week to d./c from [facility] nursing. Please advise Ling. Shobha Prado LPN documented in this encounter [facility] 12-05-2024 Telephone encounter Note ok [facility] 12-05-2024 Telephone encounter Note Ling with [facility] calling to get a verbal order to see pt 1 more time next week to d./c from [facility] nursing. Please advise Ling. Shobha Prado LPN [facility] 11-24-2024 Telephone encounter Note Patient notified of results, verbalizes understanding of instructions. Lupe Land LPN [facility] 11-24-2024 Miscellaneous Notes Patient notified of results, verbalizes understanding of instructions. Lupe Land LPN Can please let patient know that I received her back xray results, which were normal. That is good. I was concerned with the fall that she could have had a compression fracture. Rosie Syed APRN.[place] documented in this encounter [facility] 11-24-2024 Telephone encounter Note Can please let patient know that I received her back xray results, which were normal. That is good. I was concerned with the fall that she could have had a compression fracture. Rosie Syed APRN.[place] SHERIFF [facility] 11-21-2024 Note [facility] 11-21-2024 History of Presen t illness Narrative Transitional Care Management (TCM) Follow-Up Note PCP Update / Actionable Items N/A - No specialty updates needed Patient Source: In-Network Discharge Follow-up outreach: TCM enrolled patient Outreach Summary: Patient reports she is feeling weak and tired today. She was started on Carvedilol on 11-19-24 and feels the weakness is related to the new medication. She reports she has had medication adjustments in the past with the same symptoms. She is still able to get around the home with her rolator and is independent with ADL's. Her blood pressure today was 126/60. Patient denies dizziness, chest pain, SOB, or headache. Patient does report since stoke she has experienced eye watering and intermittent pain but denies difficulty seeing. Patient alert and oriented during phone call and answers all questions appropriately. Discussed with patient the Virutalist can contact her to discuss the weakness and patient declined Virturalist. Patient wants to continue to monitor as she feels it is related to the new medication. Red Flag symptoms discussed with patient and when to call 911. Advised patient if weakness does not improve to contact her PCP's office to discuss. Patient voiced understanding. Patient discharged from [facility] Discharge date: 10-27-24 Admitted for: Ischemic Stroke Readmission Risk: 18 Value-Based Contract: Alicia ASHLEY Contact: Contact made with patient: Yes Spoke to: Patient Validation: Validated the person spoken to is actively involved in the patient's care. The patient was identified by Name and Date of . I'd like to get an update on how you're doing since our last phone call. Is now a good time to talk? Yes Symptoms: Are you feeling about the same, better or worse since leaving the hospital? Same Weekly Outreach: 3rd Outreach (Reminder to complete appropriate education topics with the patient.) Medications: Do you have any questions about taking your medications, including which medications you should be on, or do you need refills on your medications? No Patient Questions / Concerns: Do you have any questions related to your discharge? No Appointment / TCM Follow-Up: Have you had a follow-up visit with your Primary Care Provider or Specialist since you were discharged? Yes Do you need any assistance with scheduling or changing your follow-up appointments? Patient already has an appointment scheduled Education Patient and family educated on issues/questions related to reason for admission, transition of care topics, and follow-up needed upon discharge. Spoke with patient in regards to stroke systems and when to call 911. Targets addressed / completed during outreach: N/A Outreach Outcome: Continue TCM Outreach for remainder of 30 days Care Management partners utilized: N/A Eliseo Michele RN November 21, 2024 1:37 PM documented in this encounter [facility] 11-19-2024 History of Presen t illness Narrative Radiology Service Progress Note PATIENT NAME: Florecita Healy DATE OF SERVICE: November 19, 2024 TIME: 11:53 AM PATIENT IDENTITY VERIFICATION COMPLETED USING TWO (2) IDENTIFIERS: Name and Date of confirmed by patient verbally. FALL SCREENING: Has the patient had 2 falls in the last year or 1 fall with injury or currently using an Ambulatory Assistive Device (Walker, Cane, Wheelchair, Crutches, etc.)? Yes, Patient High Risk for Falls What interventions were put in place to prevent falls during this visit? Offered Assistance with Transfers/Clothing and Instructed Patient to Remain Seated (Not on Exam Table) Until Exam PATIENT GENDER DATA: Female. status: : No status: NO. PATIENT RELEVANT IMPLANT DATA REVIEWED: Not Applicable PATIENT PRESENTS WITH AN IMPLANTABLE OR ATTACHED TAX PROFESSIONAL: No RADIOLOGY DEPARTMENT: General X-ray: Exam(s) Completed: Spine X-Ray(s): Lumbar AP / LAT / L5-S1 PERIPHERAL IV DATA: Not applicable SIGNED BY: RT Tamika(R) November 19, 2024 11:53 AM documented in this encounter [facility] 11-19-2024 Note [facility] 11-19-2024 Note [facility] 11-14-2024 Note [facility] 11-14-2024 History of Presen t illness Narrative Transitional Care Management (TCM) Follow-Up Note PCP Update / Actionable Items N/A - No specialty updates needed Patient Source: In-Network Discharge Follow-up outreach: TCM enrolled patient Outreach Summary: Patient reports she is feeling better from hospital discharge. Patient's weakness is improving. She is still using her wheeled walker around the home. Headache has subsided. Patient alert and oriented and answers questions appropriately during phone call. Nursing and PT still coming to the patient's home. Patient has Internal Medicine follow up scheduled for 11/19/24. Patient had to cancel her appointment today due to the weather. Patient discharged from [facility] Discharge date: 10/27/24 Admitted for: Ischemic Stroke Readmission Risk: 18 Value-Based Contract: Alicia ASHLEY Contact: Contact made with patient: Yes Spoke to: Patient Validation: Validated the person spoken to is actively involved in the patient's care. The patient was identified by Name and Date of . I'd like to get an update on how you're doing since our last phone call. Is now a good time to talk? Yes Symptoms: Are you feeling about the same, better or worse since leaving the hospital? Better Weekly Outreach: 2nd Outreach Medications: Do you have any questions about taking your medications, including which medications you should be on, or do you need refills on your medications? No Patient Questions / Concerns: Do you have any questions related to your discharge? No Appointment / TCM Follow-Up: Have you had a follow-up visit with your Primary Care Provider or Specialist since you were discharged? Yes Do you need any assistance with scheduling or changing your follow-up appointments? Patient already has an appointment scheduled 11/19/2024 in [facility] with ROSIE SYED - 3 wk BP check (40min per CH) 02/04/2025 in [facility] with AMY FRY - 3 month follow up 05/06/2025 in [facility] with SCREEN MAMMO [facility] - MAMMO 05/12/2025 in [facility] with NEVIN FAJARDO - 1 YR OV* / MAMMO DONE 05/06 SDOH: Has Food and Housing been addressed in Social Determinants in the past 3 months? Yes Education Patient and family educated on issues/questions related to reason for admission, transition of care topics, and follow-up needed upon discharge. Targets addressed / completed during outreach: Patient has TCM appointment with PC within 14 days Outreach Outcome: Continue TCM Outreach for remainder of 30 days Care Management partners utilized: N/A Eliseo Michele RN November 14, 2024 1:19 PM documented in this encounter [facility] 11-13-2024 Telephone encounter Note agree [facility] 11-13-2024 Miscellaneous Notes agree Kandi RAMOS calling from [facility] to report plan of care for patient and occupational therapy will visit patient 1 time a week for 1 week, 2 times a week for 2 weeks and 1 time a week for 1 week. Occupational therapy will work with patient on Iadls and home exercise training post stroke. This visit was a delay in care visit due to holidays. No call back need unless there are questions. Ling Patterson RN documented in this encounter [facility] 11-13-2024 Telephone encounter Note Kandi RAMOS calling from [facility] to report plan of care for patient and occupational therapy will visit patient 1 time a week for 1 week, 2 times a week for 2 weeks and 1 time a week for 1 week. Occupational therapy will work with patient on Iadls and home exercise training post stroke. This visit was a delay in care visit due to holidays. No call back need unless there are questions. Ling Patterson RN [facility] 11-11-2024 Note [facility] 11-11-2024 History of Presen t illness Narrative Transitional Care Management (TCM) Escalation Outreach / Follow-up PCP Update / Actionable Items N/A - No specialty updates needed Patient Source: In-Network Discharge Escalation: TCM enrolled patient Outreach Summary: Patient reports was not a good time for her to talk as she currently had the Physical Therapist in her home for PT. When asked patient if she was feeling better she reports she is still weak. Patient went on to say that the Home Health Nurse is coming to see her this afternoon between 1 pm to 1:30 pm to evaluate her. Patient agreed to a follow up outreach call on Sunday. Patient discharged from [facility] Discharge date: 10-27-24 Admitted for: Ischemic Stroke Readmission Risk: 18 Value-Based Contract: Alicia ASHLEY Contact made with patient: Yes Spoke to: Patient Validation: Validated that person spoke to is actively involved in patient s care. Patient identified by name and date of . Reason for Outreach: TCM enrolled patient: Escalation Follow-up ; Symptom Escalation Follow-up Outreach Escalation reason: Weakness, headache, and back and feet pain. Escalation Date: 11/10/24 Action taken: Based on RN assessement, the following disposition is advised: No action required. Outreach Outcome: Enrolled in TCM: Continue 30-day TCM Outreach Care Management Partners Utilized: N/A Eliseo Michele RN November 11, 2024 10:27 AM documented in this encounter [facility] 11-10-2024 Note [facility] 11-10-2024 Note [facility] 11-10-2024 History of Presen t illness Narrative Transitional Care Management (TCM) Follow-Up Note PCP Update / Actionable Items Virtualist Name of Virtualist: Ashely Hadley Urban Time paged: 11/10/2024 11:49 AM Preferred contact number: [phone] (home) Patient escalation symptom(s)/nursing assessment: Patient reports weakness and not moving around as well for the past three days. Patient has headache. Patient denies visual changes. Patient answers questions appropriately during phone call. Patient does report pain to feet and back. Patient Source: In-Network Discharge Follow-up outreach: TCM enrolled patient Outreach Summary: Patient reports weakness and not moving around as well for the past three days. Patient has headache. Patient denies visual changes. Patient answers questions appropriately during phone call. Patient does report pain to feet and back. Patient discharged from [facility] Discharge date: 10/27/24 Admitted for: Ischemic Stroke Readmission Risk: 18 Value-Based Contract: Alicia ASHLEY Contact: Contact made with patient: Yes Spoke to: Patient Validation: Validated the person spoken to is actively involved in the patient's care. The patient was identified by Name and Date of . I'd like to get an update on how you're doing since our last phone call. Is now a good time to talk? Yes Symptoms: Are you feeling about the same, better or worse since leaving the hospital? Worse Patient indicated [place] [phone] and indicate 'TCM patient', MRN, Patient Name, Patient Concern, and patient's preferred method of contact (telephone, Entellium, Google ROBAUTOo), your name, your contact number. Informed patient that you recommend further assessment from a provider to review symptoms. I have sent a page for the provider to contact you today. If you haven't heard from that provider and still have concerns, please contact you PCP's office right away. Indicated TCM patient and symptoms in the Vituralist section and sent alpha page to Virtualist to to contact the patient. Route chart to Virtualist carrying the pager. Targets addressed / completed during outreach: N/A Outreach Outcome: Escalation to Virtualist Care Management partners utilized: Virtualist Eliseo Michele RN November 10, 2024 11:41 AM documented in this encounter [facility] 11-10-2024 Note [facility] 11-10-2024 History of Presen t illness Narrative Value Based Social Work Progress Note Provider Action / FYI PCP Action No action needed at this time Date of Service: 11/10/2024 Patient identified by name/: Yes- via Telephone Patient/caregiver informed speaking on recorded line. Referral Source: Referral Patient Outreach: Follow Up Mode of Outreach: Phone Call Response Time: Contact made Patient Needs: In-Home Support Assessment: Existing community support Action Taken: Supportive listening Is Patient ready for discharge? Yes Social Barrier resolution or patient discharge reason: Patient self-managing with resources given Narrative: SW followed up with Pt to verify that [facility] is coming out. Pt stated she was evaluated and PT and RN are coming this week. VBSW provided contact information and Pt will contact this contract writer if there are further concerns/needs. Pt is agreeable with plan and that this contract writer. Interventions: Assessment Discharge from PCSW panel CLARENCE Wilde November 10, 2024 10:52 AM documented in this encounter [facility] 11-10-2024 Telephone encounter Note [place] notified. Wanda Anthony MA [facility] 11-10-2024 Miscellaneous Notes [place] notified. Wanda Anthony MA Ok. Vivian from [facility] Social Work calling requesting verbal order for patient, for community resources. Please advise documented in this encounter [facility] 11-10-2024 Telephone encounter Note Ok. [facility] 11-10-2024 Telephone encounter Note Vivian from [facility] Work calling requesting verbal order for patient, for community resources. Please advise [facility] 11-07-2024 Telephone encounter Note Javon PT from [facility] calling to report plan of care. Physical therapy will visit 2 times a week for 3 weeks for functional mobility training. No call back needed Ling Patterson RN [facility] 11-07-2024 Miscellaneous Notes Javon PT from [facility] calling to report plan of care. Physical therapy will visit 2 times a week for 3 weeks for functional mobility training. No call back needed Ling Patterson RN documented in this encounter [facility] 11-07-2024 Note [facility] 11-07-2024 History of Presen t illness Narrative Transitional Care Management (TCM) Follow-Up Note PCP Update / Actionable Items N/A - No specialty updates needed Patient Source: In-Network Discharge Follow-up outreach: TCM enrolled patient Outreach Summary: Patient at time of call was working with the Physical Therapist in the home. Patient voiced no needs or concerns at this time. Patient agreed to an outreach call on Sunday the next business day. Patient discharged from [facility] Discharge date: 10-27-24 Admitted for: Ischemic Stroke Readmission Risk: 18 Value-Based Contract: Alicia ASHLEY Contact: Contact made with patient: Yes Spoke to: Patient Validation: Validated the person spoken to is actively involved in the patient's care. The patient was identified by Name and Date of . I'd like to get an update on how you're doing since our last phone call. Is now a good time to talk? Yes, however, now is not a good time. The next outreach attempt will be on a business day of the preference for the patient. Targets addressed / completed during outreach: N/A Outreach Outcome: Continue TCM Outreach for remainder of 30 days Care Management partners utilized: N/A Eliseo Michele RN November 07, 2024 3:06 PM documented in this encounter [facility] 11-06-2024 Telephone encounter Note Phoned Ling and went over notes from Dr Canela with understanding. [facility] 11-06-2024 Miscellaneous Notes Phoned Ling and went over notes from Dr Canela with understanding. Ok to do Ling from [facility] Home Health calling with plan of care for skilled nurse visits once weekly for 4 weeks. Asking for verbal order for Social Work to go over community resources. Please advise documented in this encounter [facility] 11-06-2024 Telephone encounter Note Ok to do [facility] 11-06-2024 Telephone encounter Note Ling from [facility] Home Health calling with plan of care for skilled nurse visits once weekly for 4 weeks. Asking for verbal order for Social Work to go over community resources. Please advise [facility] 11-03-2024 Instructions Aylin Paz APRN.[place] - 11/03/2024 2:13 PM EST IMPRESSION Right olmos radiata infarct likely intracranial athero vs small vessel disease. DAPT x 90 days Hyperlipidemia ICAD Hypertension Tobacco use PLAN Continue aspirin and plavix x 90 days, followed by monotherapy Counseled on the importance of smoking cessation SBP goal <130 LDL goal <70 Follow up in 12 weeks. Regarding your visit with Aylin Lawson CNP today at the [facility] we discussed the following: Hypertension: Blood pressure goal < 130/80 Blood pressure today: BP 146/76 (BP Site: Right Arm, BP Position: Sitting, BP Cuff Size: Regular Adult) Pulse 81 Temp (!) 35.9 C (96.7 F) (Temporal) Ht 165.1 cm (5' 5) Wt 75.1 kg (165 lb 10.8 oz) BMI 27.57 kg/m Hyperlipidemia: LDL goal < 70 Most recent LDL: LDL Cholesterol (mg/dL) Date Value 07/21/2019 104 LDL Cholesterol, Nonfasting (mg/dL) Date Value 10/20/2024 87 04/01/2021 103 Diabetes: Hba1c goal < 7.0 Most recent Hba1c: Hemoglobin A1C (%) Date Value 10/21/2024 5.0 10/28/2021 5.3 Recommendations: Regular follow up with primary care doctor for health maintenance -Assist ensuring blood pressure and cholesterol are at goal -Screen and manage diabetes Lifestyle modification -- Establish goals -Diet -Regular Exercise as discussed -Establish weight goals with primary care doctor Additional stroke reduction measures and stroke warning signs are listed below. Please do not hesitate to call if you have any questions Aylin Lawson [facility] [address] [place] [address] / [place] [id number] Office: [phone] Stroke Signs and Symptoms: *Stroke is a medical emergency. Know the warning signs of stroke: Sudden numbness or weakness of the face, arm or leg, especially on one side of the body Sudden confusion, trouble speaking, or understanding Sudden trouble seeing in one eye, or both eyes Sudden trouble walking, dizziness, loss of balance, or coordination Sudden severe headache with no known cause *If you, or someone with you, has one or more of these signs, don't delay! Immediately call 911, or the emergency medical services (EMS) number so an ambulance can be sent for you. Also, check the time so that you will know when the symptoms first appeared. It is very important to take immediate action, every second counts. Medical treatment may be available if action is taken early enough. ~~~~~~~~~~~~~~~~~~~~~~~~~~~~~~~~ ~~~~~~~~~~~~~~~~~~~~~~~~~~~~~~~~ ~~~~~~~~ General Guidelines to Help Reduce Risk of Recurrent Stroke Blood Pressure Management: Blood Pressure reduction is recommended for both prevention of recurrent stroke and prevention of other vascular events in persons who have had an ischemic stroke or TIA and are beyond the first 24 hours. Several lifestyle modifications have been associated with BP reduction and are a reasonable part of a comprehensive antihypertensive therapy. These modifications include: - salt restriction (less than 2 grams per day) - weight loss - consumption of a diet rich in fruits, vegetables, and low-fat dairy products - regular aerobic physical activity - limited alcohol consumption Goal: Prehypertension (BP less than 130/80 mm Hg): - Perform annual BP screening and lifestyle modifications Hypertension: (BP greater than or equal to 130/80 mm Hg) - Combine medications with above lifestyle modifications to reach your goal blood pressure as defined above. - Monitor your blood pressure at home regularly to ensure you are reaching your goals Diabetes Mellitus: - the goal for glycemic control should be individualized based on the risk for adverse events, patient characteristics and preferences, and, for most patients with diabetes, achieving a goal of HbA1c <=7% is recommended to reduce risk for microvascular complications. - treatment of diabetes should include glucose-lowering medications with proven cardiovascular benefit to reduce the risk for future major adverse cardiovascular events (eg, stroke, heart attack) Cholesterol and Lipid Management - Statin (rosuvastatin or atorvastatin) therapy with intensive lipid-lowering effects is recommended to reduce risk of stroke and cardiovascular events among patients with ischemic stroke or TIA who have LDL cholesterol > 100 mg/dL, or evidence of atherosclerosis. - A goal of LDL cholesterol < 70 mg/dL for stroke or TIA patients on lipid lowering therapy is recommended. - Ezetimibe in combination with statin therapy to lower the LDL cholesterol < 70 mg/DL is recommended, if statin therapy alone is insufficient to attain this treatment target. - For patients with ischemic stroke at very high risk, already taking maximally tolerated statin and ezetimibe and still have an LDL cholesterol > 70 mg/dL, it is reasonable to treat with a proprotein convertase subtilisin/kexin type 9 (PCSK9) inhibitor to prevent atherosclerotic cardiovascular or cerebrovascular events. - In patients with ischemic stroke or TIA, with fasting triglycerides 135 to 499 mg/dL and LDL cholesterol of 41 to 100 mg/dL, on moderate- or high-intensity statin therapy, with HbA1c <10%, and with no history of pancreatitis, atrial fibrillation, or severe heart failure, treatment with icosapent ethyl (IPE) 2 g twice a day is reasonable to reduce risk of recurrent stroke Diet: - Reduced sodium and increased potassium intake; DASH-style diet rich in fruits and vegetables (https://www.nhlbi.nih.gov/educa tion/ipgn-hmytjr-cotj) - Consider Mediterranean diet supplemented with nuts Smoking and Tobacco Use: - Strongly recommend smoking and tobacco use cessation to reduce risk of stroke. - Counseling, nicotine products, and oral smoking cessation medications are effective for helping smokers quit and can be provided if needed. Alcohol Consumption: - Patients with ischemic stroke or TIA who drink greater than or equal to 2 alcoholic drinks a day, should eliminate alcohol use or reduce their consumption of alcohol to less than equal to 1 alcohol drink per day to reduce stroke risk Exercise - In patients with stroke or TIA who are capable of physical activity, engaging in at least moderate-intensity aerobic activity for a minimum of 10 minutes 4 times a week or vigorous-intensity aerobic activity for a minimum of 20 minutes twice a week is indicated to lower the risk of recurrent stroke - In patients with deficits after stroke that impair their ability to exercise, supervision of an exercise program by a health child care associate teacher such as a physical therapist or cardiac rehabilitation professional, in addition to routine rehabilitation, can be beneficial for secondary stroke prevention - In individuals with stroke or TIA who sit for long periods of uninterrupted time during the day, it may be reasonable to recommend breaking up sedentary time with intervals as short as 3 minutes of standing or light exercise every 30 minutes for their cardiovascular health Adapted from the [place] [employer]/[place] Stroke Association: 2021 Guideline for the Prevention of Stroke in Patients With Stroke and Transient Ischemic Attack~~~~~~~~~~~~~~~~~~~~~~~~~~ ~~~~~~~~~~~~~~~~~~~~~~~~~~ documented in this encounter [facility] 11-03-2024 History of Presen t illness Narrative [facility] Established Visit CEREBROVASCULAR HISTORY Florecita Healy is a 84 year old female. History of Event: Florecita Healy is a 84 year old female with a PMH of HTN, HLD, and tobacco use who presented to [facility] ED with left leg weakness. CTH no acute process. CTA: severe stenosis of the basilar artery, right M2, left M1, and R V4, as well as right P1 and L V4 occlusion. Do you have any planned upcoming surgeries or dental procedures? No Pre-morbid mRS: Premorbid Modified Arcadio Score: 1 - No significant disability despite symptoms - able to carry out all usual duties and activities Initial NIHSS Score: 0 Final/Discharge NIHSS Score: 2 Final/Discharge Modified Arcadio Score: 3 - Moderate disability - requiring some help, but able to walk without assistance PHQ4 Total Score: 0 Stroke Mechanism: Stroke Mechanism - LIP ENTRY ONLY Ischemic Stroke or TIA: Ischemic Stroke TOAST Mechanism (CCF-MODIFIED): Small-Vessel Occlusion ([place]) Office visit 11/03/24 Not smoking Blood pressure better controlled Left side weakness more noticeable in the left leg than arm No numbness Lives alone with dog Family lives close by Fell the other night--tripped over some clothes on the floor Legs swollen Compliant with medications - vision not changed but there is pain behind eyeballs per patient--temporal throbbing no scalp irritation - PAST MEDICAL HISTORY Diagnosis Date Abnormal ultrasound of breast 12/02/15 Left Breast cancer of upper-outer quadrant of left female breast (HCC) Chronic obstructive pulmonary disease (COPD) ([facility]) Chronic pain 06/03/2012 sees pain management. Diarrhea 11/06/2022 Hyperlipidemia 06/03/2012 Hypertension 06/03/2012 Nausea & vomiting 11/06/2022 Osteopenia Psoriasis Pulmonary nodule Dr. Dawn Sepsis ([facility]) 11/05/2022 Snoring PAST SURGICAL HISTORY Procedure Laterality [...] Social History Tobacco Use Smoking status: Former Current packs/day: 1.00 Average packs/day: 1 pack/day for 40.0 years (40.0 ttl pk-yrs) Types: Cigarettes Smokeless tobacco: Never Vaping Use Vaping status: Never Used Substance Use Topics Alcohol use: No Drug use: No MEDICATIONS Current Outpatient Medications Medication Sig NIFEdipine ER (PROCARDIA XL) 90 mg 24 hr tablet Take 1 tablet by mouth once daily. losartan (COZAAR) 100 mg tablet Take 1 tablet by mouth once daily. aspirin 81 mg chewable tablet Take 1 tablet by mouth once daily. clopidogrel (PLAVIX) 75 mg tablet Take 1 tablet by mouth once daily. pantoprazole DR (PROTONIX) 40 mg tablet Take 1 tablet by mouth daily at 6 am. ammonium lactate (LAC-HYDRIN) 12 % cream Apply to affected area as needed. pregabalin (LYRICA) 50 mg capsule Take 1 capsule by mouth daily at bedtime for 90 days. baclofen 10 mg tablet Take 1 tablet by mouth daily at bedtime. levothyroxine (SYNTHROID) 25 mcg tablet Take 1 tablet by mouth once daily. Except 2 tabs by mouth every Sunday and Sunday cyanocobalamin (VITAMIN B-12) 100 mcg tab Take 100 mcg by mouth once daily. acetaminophen (TYLENOL) 325 mg tablet Take 2 tablets by mouth every 4 hours as needed for pain. cholecalciferol, vitamin D3, (VITAMIN D3 ORAL) Take 2,000 Units by mouth once daily. alpha tocopheryl acetate (VITAMIN E) 400 unit capsule Take 400 Units by mouth once daily. diphenhydrAMINE-Acetaminophen 25-500 mg tab Take 2 tablets by mouth daily at bedtime. atorvastatin (LIPITOR) 80 mg tablet Take 1 tablet by mouth daily at bedtime. No current facility-administered medications for this visit. ALLERGIES ALLERGIES Allergen Reactions Animal Dander Intolerance Darvocet A500 [Prop* Mental Status Change Dust Other: See Comments Grass Pollen Other: See Comments Mold Other: See Comments Soma [Carisoprodol] Swelling, Itching Trees Other: See Comments PHYSICAL EXAMINATION BP 146/76 (BP Site: Right Arm, BP Position: Sitting, BP Cuff Size: Regular Adult) Pulse 81 Temp (!) 35.9 C (96.7 F) (Temporal) Ht 165.1 cm (5' 5) Wt 75.1 kg (165 lb 10.8 oz) BMI 27.57 kg/m General: Well-developed, well-nourished, in no acute distress. HEENT: Normocephalic, atraumatic. Sclerae anicteric. Oropharynx clear. Extremities: No edema, cyanosis, or clubbing. 2+ dorsalis pedis pulses bilaterally. Skin: No rash or ecchymoses. Neurological: Awake, alert, oriented to person, place, and time. Speech fluent, no dysarthria. Naming, repetition, recall, comprehension, calculation intact. Good attention and insight into illness. Cranial Nerves: PERRL, extraocular movements intact without nystagmus. Visual lynch full. Fundoscopic examination normal with sharp optic discs bilaterally. Facial sensation and movements normal and symmetric. Palate elevates equal bilaterally. Tongue midline. Trapezius strength 5/5 bilaterally. Motor: Normal bulk and tone. Strength 5/5 throughout. No pronator drift or tremor. Sensation: Intact light touch Coordination: Rapid alternating movements symmetric bilaterally. Nxbgjy-[id number]-tgpf, konk-rx-sybi without dysmetria bilaterally. Gait: stable with rollator LABS Cholesterol: Cholesterol, Total (mg/dL) Date Value 02/27/2023 143 07/21/2019 170 Total Cholesterol, Nonfasting (mg/dL) Date Value 10/20/2024 161 04/01/2021 173 LDL Cholesterol (mg/dL) Date Value 07/21/2019 104 LDL Cholesterol, Nonfasting (mg/dL) Date Value 10/20/2024 87 04/01/2021 103 HDL Cholesterol (mg/dL) Date Value 02/27/2023 46 07/21/2019 36 HDL Cholesterol, Nonfasting (mg/dL) Date Value 10/20/2024 50 04/01/2021 38 Triglyceride (mg/dL) Date Value 02/27/2023 74 07/21/2019 148 Triglycerides, Nonfasting (mg/dL) Date Value 10/20/2024 118 04/01/2021 158 Diabetes: Hemoglobin A1C (%) Date Value 10/21/2024 5.0 10/28/[address] brain 10/19/2024 ([facility]) IMPRESSION: No CT evidence of an acute territorial infarct or acute intracranial hemorrhage CTA head and neck 10/19/2024 ([facility]) IMPRESSION: * Severe stenosis of the left proximal M1 with multiple collaterals and small caliber patent visualized distal branches, likely chronic. Severe stenosis of the one of the inferior division proximal M2 branches with paucity of the distal cortical branches also considered chronic. * Short segment mild stenosis of the right proximal M1. Severe stenosis of the one of the superior division M2 branches. Rest of the M1 and distal cortical branches appear patent without high-grade stenosis. * Subtle questionable opacification of the right P1 and P2 segments concerning for severe stenosis/near complete occlusion. Reconstitution of the distal segments with some opacification likely through collaterals. * Occlusion of the nondominant mid/distal left V4 segment vertebral artery. * Multifocal severe stenosis along the distal right V4 segment vertebral artery and basilar artery. * Left posterior cerebral artery and anterior cerebral arteries are patent without high-grade stenosis. * Tiny atherosclerotic calcifications along the bilateral internal carotid arteries without significant stenosis. * Atherosclerotic calcification at the origin of the right vertebral artery causing short segment moderate stenosis. Rest of the cervical vertebral arteries are patent without significant stenosis. * Short segment mild stenosis at the origin of the left common carotid artery and moderate to severe stenosis of the proximal right subclavian artery due to mixed density plaque formations. Normal flow associated contrast filling distally. * Incidentally noted pulmonary nodules. Comparison with prior dedicated previous chest CT imaging if available otherwise, see recommendation below. Incidental Finding: Follow-up Acuity: Incidental Finding: Solid: 6-8 mm (solitary nodule) Routing Code: RI_[id number] Recommendation: CT Chest WO IVCON Time Frame: 6-12 months Comments: If stable on follow-up imaging, a repeat chest CT exam in 12 months (18-24 months from the initial exam) is recommended --END OF FINDING-- CT brain 10/19/2024 ([place]) IMPRESSION: No acute intracranial process MRI brain 10/20/2024 IMPRESSION: Small acute nonhemorrhagic infarcts in the right olmos radiata Echo 10/20/2024 ONCLUSIONS: - Exam indication: Stroke - The left ventricle is normal in size. There is left ventricular hypertrophy. Left ventricular systolic function is normal. EF = 59 5% (2D biplane) - The right ventricle is normal in size. Right ventricular systolic function is normal. - Negative agitated saline study performed, clips 40 & 43. - Exam was compared with the prior CC echocardiographic exam performed on 03/19/2020. Similar findings Patient Entered Questionnaires PROMIS/NeuroQoL Score Percentiles 07/13/2017 PROMIS Global Health Scale Physical Health Percentile 10 Mental Health Percentile 43 Percentiles provide an indication of how a patient's score ranks in relation to the [place] general population. > 31st percentile is within normal limits or better * < 31st percentile is at least SD worse than population, which may be clinically relevant < 16th percentile is at least 1 SD worse than population and warrants attention Depression Screenin07/30/2018 05/27/2018 03/26/2018 PHQ-9 Score 5 7 5 Self-Harm Response Not at all Not at all Not at all PHQ-9 Scores: PHQ-9 Self-Harm (Item 9) Response: 0 - 9 No to Mild depression 0 - Not at all 10 - 14 Moderate depression 1 - Several Days > 15 Severe depression 2 - More than half the days 3 - Nearly every day Stroke Mechanism and Scales 10/20/2024 Stroke Mechanism Ischemic Stroke or TIA Ischemic Stroke TOAST Mechanism (CCF-MODIFIED) Small-Vessel Occlusion ([place]) IMPRESSION Right olmos radiata infarct likely intracranial athero vs small vessel disease. DAPT x 90 days Hyperlipidemia ICAD Hypertension Tobacco use--has quit since stroke PLAN Continue aspirin and plavix x 90 days, followed by monotherapy Counseled on the importance of continued smoking cessation SBP goal <130 LDL goal <70 Follow up in 12 weeks. Medical Decision Making: Medical Decision Making Level: 1 - N/A I spent a total of 30 minutes on the date of service which included preparing to see the patient, icql-na-zpsy patient care, completing clinical documentation, obtaining and/or reviewing separately obtained history, performing a medically appropriate examination, counseling and educating the patient/family/caregiver, ordering medications, tests, or procedures, communicating with other HCPs (not separately reported), and independently interpreting results (not separately reported) SIGNATURE Aylin Paz APRN.[facility] [employer]' documented in this encounter [facility] 11-03-2024 Note [facility] 10-31-2024 Telephone encounter Note Notified. [facility] 10-31-2024 Miscellaneous Notes Notified. Yes Netta from [facility] Home Health calling patient had been discharged from [facility] had CVA, family needs more help. Has orders for skilled nurse, PT/OT. Asking if PCP would follow the patient? They will start care on 11/03/2024. Please advise documented in this encounter [facility] 10-31-2024 Note HNO ID: [id number] Author: JANEY TAMAYO LPN Service: ? Author Type: LICENSED NURSE Type: Progress Notes Filed: 10/31/2024 16:02 Note Text: OV note printed and faxed to [facility]. Janey Tamayo LPN [facility] 10-31-2024 Note HNO ID: [id number] Author: ROSIE SYED APRN.KAITLYN Service: ? Author Type: Nurse Practitioner Type: Progress Notes Filed: 10/31/2024 15:59 Note Text: Had office visit today. Okay to fax office note. Rosie Syed APRN.KAITLYN [facility] 10-31-2024 Note HNO ID: [id number] Author: JANEY TAMAYO LPN Service: ? Author Type: LICENSED NURSE Type: Progress Notes Filed: 10/31/2024 15:53 Note Text: Pt saw Rosie for TCM today. Will fax OV notes once completed. Janey Tamayo LPN [facility] 10-31-2024 Telephone encounter Note Yes [facility] 10-31-2024 Note HNO ID: [id number] Author: TU CANELA MD Service: ? Author Type: Physician Type: Progress Notes Filed: 10/31/2024 15:35 Note Text: Can we see what else they would need since it appears it was already faxed. [facility] 10-31-2024 Instructions Rosie Syed APRN.[facility] - 10/31/2024 11:00 AM EST Increase the nifedipine to 90 mg daily. New script went to the pharmacy. Continue the other medications the same. Schedule chest CT in 6 months. Recheck in 2 weeks. documented in this encounter [facility] 10-31-2024 Note [facility] 10-31-2024 History of Presen t illness Narrative Transitional Care Management TCM Eligibility Documentation Program: Transitional Care Management Status: Enrolled Effective Dates: 10/28/2024 - present Responsible Staff: Eliseo Michele band bias machine operator date: 10/27/2024 (Program start) Date of initial contact: 10/28/2024 Initial contact Target status: Successful; Contact made within 2 business days post-discharge Provider Documentation Florecita Healy is a 84 year old female here today for a follow up from recent hospitalization. I have reviewed the patient's hospital course including discharge summary, discharge medications , and follow up needs with the patient and any family members present at today's visit. HPI Pt reports that she had woken and had difficulty walking. Went back to bed for awhile. Refers that still had similar symptoms when she woke back up, so she called her family and went to [facility]. From [place], she was transferred to [facility]. Copied and pasted from discharge summary. Hospital Course: Taken from the admitting HPI: 84 yo F with PMH HTN, HLD, smoking (40 py), CKD 3, hypothyroidism, and venous insufficiency. Most recent LDL was 63 and A1c was 5.0%. Of note, the patient reports having BP in the 150-180/80 range at home. Presenting with L sided weakness. LKW 11 pm on 10/18/24. She then woke up the next morning with L leg weakness, making it difficult to ambulate. She states that her L arm was subjectively weak as well but was much more mild. Denies any other symptoms, including speech changes, vision changes, or sensory changes. She presented to [facility] ED, where NIHSS was 2 (LFD and dysarthria). iGluc was 115. iBP was 175/77. CTH without acute process. 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 She was loaded on 300 mg Plavix and transferred to [facility] for further management. The patient was admitted to the neurological step down unit, under the stroke service, for closer monitoring. Routine stroke labs were done, significant for: LDL 87, hemoglobin A1C 5, and TSH 3.850. The patient passed the initial swallow screen, tolerating an oral diet well. The patient was started on Lovenox and IPCs for DVT prophylaxis. MRI brain, stroke protocol, revealed a right olmos radiata infarct. Echo with LVH, no wall motion abnormality, left atrium normal, and ejection fraction 59%. Etiology of infarct small vessel disease versus intracranial athero disease. 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 The patient was started on Aspirin and Plavix for stroke prevention. Patient should continue dual antiplatelet therapy for 90 days then monotherapy with Aspirin. Protonix started for GI prophylaxis while on dual antiplatelets. The patient was also started on Atorvastatin 80 for stroke prevention. Patient with uncontrolled hypertension. Patient originally with permissive hypertension then home Losartan started with a plan to bring the patient to normotension slowly. Avoid hypotension due to high risk of hypoperfusion due to severe intracranial athero. Losartan continued to be increased and her home Amlodipine was changed to Nifedipine. Her home coreg was not resumed at this time, but should be restarted if needed. The patient was educated on the importance of home blood pressure monitoring. She was also educated on the importance of smoking cessation, a healthy diet, and exercise. Lung nodule seen on CTA, incidental finding. Plan for CT chest in 6-12 months for stability. Physical and occupational therapy was consulted, recommending home therapy. The patient refused, as she does not want anyone in her house. She was discharged on 10/23, with outpatient therapy. Since discharge: She reports that she is taking all of her medications as prescribed. She did have one fall. Refers that she left her clothes on the floor and when she got up to go to the bathroom, tripped over the clothing. Refers that she is using walker to ambulate. + leg weakness. She is not permitted to drive and is dependent for transportation. She is going to be getting home health, and PT/OT. Appetite has been okay. She continues to get dizzy on occasion. She does have some headaches and takes tylenol. She has not smoked since going into the hospital -- refers breathing has been better since she quit smoking. Urinating okay. No hematuria. No heartburn/indigestion. Did have some constipation, but refers since being home she is moving her bowels okay. No hematochezia/melena. Refers that she has been checking her home blood pressures and continues to be running 150's/80's. In her imaging during the hospitalization, was found to have pulmonary nodule that needs 6 month follow-up. PHYSICAL EXAMINATION BP 152/82 Pulse 79 Resp 16 SpO2 98% GENERAL: well appearing, alert, in no acute distress HEART: regular rate and rhythm. No murmur, rubs or gallops. LUNGS: clear to auscultation, no wheezing, rhonchi, or crackles ABDOMEN: soft, non-tender, non-distended, no masses or organomegaly EXTREMITIES: venous insufficiency -- + 1-+2 edema. HEENT: Normocephalic, atraumatic, Extraocular muscles intact, Conjunctiva non-injected, and Oropharynx clear, no erythema or exudate NECK: supple, thyroid midline, normal size, non-tender to palpation, no cervical or supraclavicular adenopathy, and no carotid bruits NEURO: ambulates with walker. ASSESSMENT/PLAN: 1. Ischemic stroke (HCC) - ICD9: 434.91, ICD10: I63.9 (primary diagnosis) On dual antiplatelet therapy. Has follow-up scheduled with neurology -- encouraged follow-up. She is now needing a walker to ambulate. She is unable to drive. She is waiting for home health services. 2. Primary hypertension - ICD9: 401.9, ICD10: I10 - Uncontrolled - increase the nifedipine. She reports that she is being compliant with her medications, which she hasn't always been in the past, as she would frequently report side effects. Recheck in 1 month. 3. Lung nodules - ICD9: 793.19, ICD10: R91.8 Recheck in 6 months. - CT CHEST WO IVCON 4. Tobacco abuse - ICD9: 305.1, ICD10: Z72.0 - smoke-free since hospital admission. Keep up the good work. Discussed treatment plan and patient voices understanding. Patient's questions answered appropriately. Medications and potential side effects were discussed and patient voices understanding. Return to the office as scheduled or as needed for worsening/no improvement. Rosie Syed APRN.[facility] documented in this encounter [facility] 10-30-2024 Telephone encounter Note Patient was not seen on 10/20/24. That was [facility] [facility]. Will call Sara Chadwick, [facility], and verify what is needed. They usually call and ask for a verbal order, then fax over their order form for Dr Canela to sign. Sheron French MA October 30, 2024 3:[address] [facility] 10-30-2024 Miscellaneous Notes Patient was not seen on 10/20/24. That was the admission date to [facility], which home health is apart of. Will call Sara Chadwick, [facility], and verify what is needed. They usually call and ask for a verbal order, then fax over their order form for Dr Canela to sign. Sheron French MA October 30, 2024 3:27 PM Provider Action/FYI: [facility] [phone] Please fax [phone] -The face to face encounter form 10/20/24 again but needs to have actual physical signature and date. The insurance company will not accept an electric signature. -Please also send copy of the discharge AVS. Please contact them directly for any other questions. Confirmed with [facility] start of service to begin 11-04-24 for the patient. Eliseo Michele RN documented in this encounter [facility] 10-30-2024 Telephone encounter Note Netta from [facility] Health calling patient had been discharged from [facility] had CVA, family needs more help. Has orders for skilled nurse, PT/OT. Asking if PCP would follow the patient? They will start care on 11/03/2024. Please advise [facility] 10-30-2024 Telephone encounter Note Provider Action/FYI: [facility] [phone] Please fax [phone] -The face to face encounter form 10/20/24 again but needs to have actual physical signature and date. The insurance company will not accept an electric signature. -Please also send copy of the discharge AVS. Please contact them directly for any other questions. Confirmed with [facility] start of service to begin 11-04-24 for the patient. Eliseo Michele RN [facility] 10-29-2024 Note HNO ID: [id number] Author: JANEY TAMAYO LPN Service: ? Author Type: LICENSED NURSE Type: Progress Notes Filed: 10/29/2024 15:29 Note Text: DC summary, HANDP, order for HHC and OT/PT order faxed to [facility]. [facility] 10-29-2024 Note [facility] 10-29-2024 History of Presen t illness Narrative Value Based Social Work Progress Note Provider Action / FYI PCP Action No action needed at this time Date of Service: 10/29/2024 Patient identified by name/: Chart Review Referral Source: Referral Patient Outreach: Follow Up Mode of Outreach: Phone call to [facility] Response Time: VBSW will follow up with Pt once information for start is known Narrative: VBSW reviewed Pt chart. VBSW left VM for intake with [facility] to see if documentation for home health care received and to provide them with Pt's granddaughter, Thanh Tierney's number [phone] as it was Pt's preferred contact. 4:10 PM Netta with [facility] left VM stating received the fax a few minutes prior and will call this contract writer 10/30 whether they will be able to take her. Interventions: Advocacy Stakeholder collaboration CLARENCE Wilde October 29, 2024 3:03 PM documented in this encounter [facility] 10-29-2024 Note [facility] 10-29-2024 History of Presen t illness Narrative Transitional Care Management (TCM) Follow-Up Note PCP Update / Actionable Items N/A - No specialty updates needed Patient Source: In-Network Discharge Follow-up outreach: TCM enrolled patient Outreach Summary: Follow up phone call placed today to update patient in regards to wheeled walker prescription and Home Care Services. Patient notified wheeled walker prescription was faxed by Dr. Canela's office yesterday to [employer]. Patient also aware that we are waiting on confirmation from Dr. Canela's office that all the appropriate paperwork was faxed to [facility]. Patient requested her granddaughter Thanh to be contacted with an updates as she is the one that handles her care. Thanh per patient is also attempting to obtain patient a wheeled walker from [facility] that is supposed to be delivered today so would need to discuss that also. Phone call placed to Thanh and voicemail message left with return phone number. Patient discharged from [facility] Discharge date: 10/27/24 Admitted for: Ischemic Stroke Readmission Risk: 18 Value-Based Contract: Alicia ASHLEY Contact: Contact made with patient: Yes Spoke to: Patient Validation: Validated the person spoken to is actively involved in the patient's care. The patient was identified by Name and Date of . I'd like to get an update on how you're doing since our last phone call. Is now a good time to talk? Yes Symptoms: Are you feeling about the same, better or worse since leaving the hospital? Same Weekly Outreach: Additional Outreach Medications: Do you have any questions about taking your medications, including which medications you should be on, or do you need refills on your medications? Did not address Patient Questions / Concerns: Do you have any questions related to your discharge? Yes Discussed the patient's questions and/or concerns. If applicable, the appropriate Team/Provider updated in FYI box. Appointment / TCM Follow-Up: Have you had a follow-up visit with your Primary Care Provider or Specialist since you were discharged? No Do you need any assistance with scheduling or changing your follow-up appointments? Patient already has an appointment scheduled Education N/A Targets addressed / completed during outreach: N/A Outreach Outcome: Continue TCM Outreach for remainder of 30 days Care Management partners utilized: N/A Eliseo Michele RN October 29, 2024 12:56 PM Received a call back form Thanh. Update given to Thanh in regards to Home Health Care Services for her grandmother. She is aware we are waiting on confirmation from Dr. Canela's office that all the appropriate paperwork was faxed to [facility] so the start of care can begin. She is agreeable to be called with updates. In regards to the wheeled walker patient's granddaughter ordered yesterday from [facility] and is waiting for possibly delivery today. Patient did have to pay out of pocket. Granddaughter aware order was also faxed to [facility] [employer] for the Walker. This Project Crew Worker will reach out to Medical Care Services to check status. Contact made with Bee at [employer]. Bee reports they are unable to provide that item to patient's zip code for single item delivery. They would only be able to provide the walker if she had a multiple equipment order like oxygen or a hospital bed with the walker need. Granddaughter Thanh notified and she is confident walker will be delivered today from [facility] so no other intervention needed at this time. She is aware she will be contacted in regards to Home Care start of service. Eliseo Michele RN October 29, 2024 1:44 PM documented in this encounter [facility] 10-28-2024 Note HNO ID: [id number] Author: JANEY TAMAYO LPN Service: ? Author Type: LICENSED NURSE Type: Progress Notes Filed: 10/28/2024 16:58 Note Text: Order for wheeled walker faxed. Janey Tamayo LPN [facility] 10-28-2024 History of Presen t illness Narrative Order for wheeled walker faxed. Janey Tamayo LPN Ok to send all below Order printed for wheeled walker. Please fax, as requested. Rosie Syed APRN.COUNT[employer] SHERIFF Transition Care Management (TCM) Initial Outreach PCP Update / Actionable Items Dr. Canela and staff: Patient was discharged home without a wheeled walker and is having difficulty obtaining one at this time. Please have your staff fax the order for the wheeled walker in [facility] with patient's Demographics to [employer] at [phone] GAL. Social Work Update / Actionable Items Patient was discharged 10/27/24 from [facility] [place] diagnosis of Ischemic Stroke without Home Health Care Services arrangement. Patient reported she was told by the [facility] there are no Home Care Services available in [facility]. Granddaughter was supposed to provide 24 hour home assistance to patient but is currently now unable to do so. Please assess and contact patient with any home care services available to assist her. Patient Source: In-Network Discharge Initial outreach: TCM discharge report Outreach Summary: Spoke with patient and she reports she is feeling weak but does feel better since discharge. Patient main concern is obtaining her wheeled walker. Her son attempted to get her a walker from [employer] yesterday but was unsuccessful. Patient also was not discharged with Home Care services as per patient she was told by the [facility] there an no Home Care Services in [facility]. Patient became frustrated during the phone call and wanted to end the call. Patient requested a call back with updates in regards to how she can obtain the wheeled walker to be sent to her home. Returned call to patient and advised message will be sent to her PCP's office to assist with faxing the wheelchair order to [employer]. Patient is also in agreement to be contacted by Social Work to discuss Home Care Needs. Patient discharged from [facility] Discharge date: 10/27/24 Admitted for: Ischemic Stroke Readmission Risk: 18 Value-Based Contract: Alicia ASHLEY Contact: Contact made with patient: Yes Hi, my name is Eliseo Michele RN and I am calling from the [facility] on behalf of your Primary Care Provider, Tu Canela MD. I understand you were recently in the hospital, so I am calling to check in with you to ensure you are feeling well now that you are home. May I ask you a few questions related to your hospital stay and well-being? Yes Spoke to: Patient Validation: Validated the person spoken to is actively involved in the patient's care. The patient was identified by Name and Date of . Symptoms: Are you feeling about the same, better or worse since leaving the hospital? Better Medications: Do you have any questions about taking your medications, including which medications you should be on, or do you need refills on your medications? Yes Discussed the patient's questions and/or concerns. If applicable, the appropriate team/provider updated. Medication Review: Declined at this time per patient preference-patient did not want to do med review at this time as she was on a cell phone. Patient family member to come by this afternoon to assist patient with medications. Discharge Instructions: Your Discharge Instructions / After Visit Summary (AVS) are important in guiding you through the recovery process. Do you have any questions related to your discharge instructions? Yes Discussed the patient's questions and/or concerns. If applicable, the appropriate Team/Provider updated in FYI box. Home Care: Were you discharged with home care? No per patient she was told by the [facility] there are no Home Care Services in her area. Equipment: Do you have all the necessary equipment and supplies needed at your home? No- patient is having difficulty obtaining a walker Reviewed equipment and supplies needed Facilitated any orders and/or provider updates on behalf of the patient as needed Social: We would like to make sure you have what you need so that your basics needs are met - including your personal safety, food, housing and medications. Would you like to speak with a social work steam fitter supervisor maintenance to help give you support for any of these needs? Did not address with patient as she voiced frustration with the phone call and wanted to end the call. Did return phone call back to patient addressing with her that social work can reach out to her to discuss home health resources and patient was in agreement to have social work contact her. It can be normal to feel anxious or down during a time like this. Would you like to talk to a mental health professional about how you have been feeling? Did not address with patient as she voiced frustration with the phone call and wanted to end the call. Action Taken: Yes The patient would like to speak to a PCSW- Informed patient a PCSW will contact them to discuss further. Complete PCSW/BHSW box, confirmed value-based contract and routed to appropriate pool: Alicia ASHLEY [facility] Social Work Pool [[id number]] - Alicia ASHLEY Follow-Up Appointment: [Appointment / TCM Follow-up within 14 days] I would like to help you schedule a hospital follow-up virtual or telephone visit with your PCP. This is a great way for you to connect with your provider to ensure you have safely transitioned home. If you are agreeable, I will send your request to a patient scheduler who will contact and assist you with that appointment. This will give you an opportunity to ask any questions or address any concerns you may have with your PCP. Inform the patient that if they have any questions or concerns prior to that appointment, to call their PCP's office right away. Appointment Action: No action required; patient already has appointment scheduled. Education N/A- Did not address with patient as she voiced frustration with the phone call and wanted to end the call. She requesting a return phone call when had update in regards to how she can obtain her walker. Targets addressed / completed during outreach: Contact patient within two (2) business days Patient has TCM appointment with PC within 14 days Outreach Outcome: Enrolled in TCM Care Management partners utilized: PCSW / BHSW Eliseo Michele RN October 28, 2024 10:51 AM documented in this encounter [facility] 10-28-2024 Note HNO ID: [id number] Author: TU CANELA MD Service: ? Author Type: Physician Type: Progress Notes Filed: 10/28/2024 12:58 Note Text: Ok to send all below [facility] 10-28-2024 Note [facility] 10-28-2024 History of Presen t illness Narrative Value Based Social Work Progress Note Provider Action / FYI PCP Action [facility] [phone] Please fax [phone] - Facesheet; Pt's demographics, insurance information - Signed doctor's order with disciplines needed (PT, OT, etc.) - Dx stroke on sheet - H&P documentation - Discharge paperwork and summary - Medication List Date of Service: 10/28/2024 Patient identified by name/: Yes- via Telephone Patient/caregiver informed speaking on recorded line. Referral Source: Referral Patient Outreach: Initial Mode of Outreach: Phone Call [phone] Response Time: Contact made Patient Needs: Home Health Care Assessment: Payor Patient functional ability Existing community support Living situation Action Taken: Direct patient connection to resource Provide Patient Resources Education Supportive listening Is Patient ready for discharge? No Follow-up Plan [next steps] High [7-14 days] Narrative: VBSW received an urgent TCM phone encounter from Eliseo Michele RN Patient was discharged 10/27/24 from [facility] [place] diagnosis of Ischemic Stroke without Home Health Care Services arrangement. Patient reported she was told by the [facility] there are no Home Care Services available in [facility]. Granddaughter was supposed to provide 24 hour home assistance to patient but is currently now unable to do so. Please assess and contact patient with any home care services available to assist her. VBSW reviewed Pt chart. Inpatient Pt was to go to SNF and receive home health care and refused as granddaughter was to assist. VBSW left VM for Li Hardy RN for clarification. Li returned call and is willing to fax documents to agency if needed. VBSW called [facility] [phone] and fax [phone] and they accept Pt's insurance and have availability to accept for services. VBSW introduced self to Pt and stated reason for call. Pt stated she did not want to go to SNF due to her dog at home. Pt's granddaughter was to help her as she is a nurse but is now unable. VBSW informed Pt of [facility] and she was okay with it and stated a relative works there. VBSW stated Pt may be eligible for meals since discharged and Pt stated she is not VBSW explained documentation would need to be faxed and they would need to review prior to setting up services in the home. Pt stated understanding and agreeable with plan. Pt stated much appreciation for the call. VBSW sent urgent phone encounter to PCP and Rosie Syed APRN, K[place] regarding paperwork being faxed to agency. Dr. Canela replied will send all. Interventions: Advocacy Assessment Care transition Education Referral to community resource Stakeholder collaboration CLARENCE Wilde October 28, 2024 12:52 PM documented in this encounter [facility] 10-28-2024 Note Addended by: ROSIE SYED on: 10/28/2024 12:33 PM Modules accepted: Orders [facility] 10-28-2024 Miscellaneous Notes Addended by: ROSIE SYED on: 10/28/2024 12:33 PM Modules accepted: Orders documented in this encounter [facility] 10-28-2024 Note HNO ID: [id number] Author: ROSIE SYED APRN.CNP Service: ? Author Type: Nurse Practitioner Type: Progress Notes Filed: 10/28/2024 12:33 Note Text: Order printed for wheeled walker. Please fax, as requested. Rosie Syed APRN.CNP [facility] 10-28-2024 Note [facility] 10-26-2024 Note [facility] 10-25-2024 Note [facility] 10-25-2024 Note HNO ID: [id number] Author: NOTE, INTERFACE, ? Service: ? Author Type: ? Type: Progress Notes Filed: 10/30/2024 15:59 Note Text: Epic Scheduled Downtime: 10/25/2024 1:00:00 AM to 10/25/2024 2:52:17 AM [facility] 10-24-2024 Note [facility] 10-23-2024 Note [facility] 10-23-2024 Note [facility] 10-22-2024 Note [facility] 10-21-2024 Note [facility] 10-20-2024 Note [facility] 10-20-2024 Note [facility] 10-20-2024 Note [facility] 10-19-2024 Note HNO ID: [id number] Author: BRIJESH MARTIN MD Service: [facility] Author Type: Physician Type: Progress Notes Filed: 10/19/2024 23:49 Note Text: [facility] Provider Note Call Initiation By: Bedside Caregiver: Provider Primary Reason for Call: Admission to ICU;Neurological Status Primary Reason for Call (Other): 84 yo woman with PMH of chronic lumbar radiculopathy, hypertension, and hyperlipidemia presented to [facility] ED at 0939 on 10/19/24 last known well 2300 on 10/18/24 with L arm numbness and weakness, slurred speech. no thrombolytics given. Started on aspirin and Plavix. CT head with contrast showed severe stenosis of multiple vessels including but limited to L prox M1, prox M2, R V4, possibly R P1 and P2 thus she has been accepted to neuro ICU for close monitoring. Unfortunately, she has been boarding in the ED at and there is currently not a bed available in the neuro ICU. ED requesting [facility] ICU admission for continued care. Currently NIHSS of [address] Ried Assessment: CVA with L arm numbness and weakness, slurred speech, mutifocal severe cerebral stenosis Plan/Intervention (other): Admit to [facility] ICU pending transfer to . Continue aspirin plavix. This patient has the following organ/system impairment(s): : Stroke MD/TONEY Collaboration: ([facility] intelligence support officer) SIGNATURE: Brijesh Martin MD PATIENT NAME: Florecita Healy DATE: October 19 2024 TIME: 11:35 PM [facility] 10-19-2024 Note HNO ID: [id number] Author: SAVANAH CRUZ RT(R) Service: Radiology Author Type: Technologist Type: Progress Notes Filed: 10/19/2024 19:26 Note Text: Radiology Service Progress Note PATIENT NAME: Florecita Healy DATE OF SERVICE: October 19, 2024 TIME: 7:26 PM PATIENT IDENTITY VERIFICATION COMPLETED USING TWO (2) IDENTIFIERS: Name and Date of confirmed by patient verbally. FALL SCREENING: Has the patient had 2 falls in the last year or 1 fall with injury or currently using an Ambulatory Assistive Device (Walker, Cane, Wheelchair, Crutches, etc.)? Emergency Room Patient: Screened in ED PATIENT GENDER DATA: Female. status: : No status: N/A PATIENT RELEVANT IMPLANT DATA REVIEWED: Yes PATIENT PRESENTS WITH AN IMPLANTABLE OR ATTACHED TAX PROFESSIONAL: No RADIOLOGY DEPARTMENT: CT; Exam(s) Completed: Brain PERIPHERAL IV DATA: Not applicable SIGNED BY: RT Edward(R) October 19, 2024 7:26 PM [facility] 10-19-2024 Note [facility] 10-19-2024 History of Presen t illness Narrative TELESTROKE DOCUMENTATION Name: Florecita Healy : 1940 Referring Site: [place] Referring Provider: Dr. Parikh Last Known Well (Date/Time): 10/18/24 230 Neurologist Callback (Date/Time): 10/19/24 0919 Chief Complaint: Left sided weakness HPI: 84 year old female,84 year old female with known history of HTN, HLD, and Nicotine abuse who woke up this morning with left sided weakness. LKW is last night when she went to be at 11 PM. NIHSS done by me through Tele-stroke 2 (nondisabling deficits). CT brain is negative for acute stroke. 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 IV TNK is contraindicated because she was beyond four and half hour on arrival to the ED. However, will transfer to the NICU at the main campus for close observation. Upon any worsening in the neuro status, CT angiogram should be urgently performed and endovascular service informed Stroke Risk Factors Hypertension, Hypercholesterolemia, Smoking Current Anticoagulant Not Applicable NIHSS Telestroke Type - Patient location (ED or Inpatient): ED - Video Neurologist Performed Total Score: 2 Arrival Date Telestroke Site: 10/19/24 Arrival Time Telestroke Site: 927 NIHSS Performed Date: 10/19/24 NIHSS Performed Time: 1015 LOC: 0 LOC Questions: 0 LOC Commands: 0 Best Gaze: 0 Visual lynch: 0 Facial Palsy: 1 Motor Left Arm: 0 Motor Right Arm: 0 Motor Left Le Motor Right Le Limb Ataxia: 0 Sensory: 0 Best Language: 0 Dysarthria: 1 Extinction and Inattention: 0 Labs Glucose: [address] Imaging reviewed, NO acute infarct/hemorrhage seen CTA Imaging reviewed, NO large vessel occlusion or severe stenosis seen (severe basilar artery stenosis, 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, right M2 severe stenosis and asymptomatic left M1 severe stenosis.) Summary Suspected ACUTE ischemic stroke IV Thrombolysis Candidate Window: No - Patient arrived past 4.5 hour window OR Last Known Well Date/Time is unknown Potential Candidate for Endovascular Therapy: No - Negative for evidence of large vessel occlusion (severe basilar artery stenosis, 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, right M2 severe stenosis and asymptomatic left M1 severe stenosis.) Disposition/Billing (Physician is not in the same physical location as the patient) The patient will be transferred to another institution for further evaluation and management Reason for Transfer: Other (Specify) Reason for Transfer (Specify): Closely watched in the NICU for any worsening in the neurological deficits Planned Facility for Transfer: [facility] I personally completed this evaluation as a staff physician: Yes Video: Case complexity: Complex More than 50 percent of the encounter was spent on coordinating care of the patient during a telestroke. Thank you for contacting the [facility]. I appreciate the opportunity for allowing me to participate in Florecita [facility]. Please feel free to contact me and/or the [facility] at any time if you have any further questions or need additional assistance. Jose Little MD October 19, 2024 2:56 PM documented in this encounter [facility] 10-14-2024 Telephone encounter Note Patient calling again. Letter printed and faxed as requested [facility] 10-14-2024 Miscellaneous Notes Patient calling again. Letter printed and faxed as requested There is a letter the patient gets from us.printed. Patient calls and states that she currently is at [facility]. Patient states that she was told that she needed orders for handicap placard and handicap sticker for license plate. Patient asking if order can be faxed to [facility] at [phone]. Ling Patterson RN documented in this encounter [facility] 10-14-2024 Telephone encounter Note There is a letter the patient gets from us.printed. [facility] 10-14-2024 Telephone encounter Note Patient calls and states that she currently is at [facility]. Patient states that she was told that she needed orders for handicap placard and handicap sticker for license plate. Patient asking if order can be faxed to [facility] at [phone]. Ling Patterson RN [facility] 09-22-2024 Note [facility] 09-22-2024 History of Presen t illness Narrative [facility] Telephonic Outreach Provider Action/FYI Contacted for: Routine Telephonic Outreach Contact made with patient: Yes Patient identified by name and date of . Discussed care with patient. Patient discussed recent medication changes that has helped with her lower leg swelling. Are you experiencing any new or worsening symptoms you need to talk about today? No Disease Specific Do you check your blood pressure at home? Yes, Enter readings: running the same 124/77. Pulse ox 92 percent to 96 percent on room air. Do you have new or worsening shortness [...] pounds in a week? No Based on second vp hr assessment, the following disposition is advised: No symptoms or symptoms present, not severe. Routed to: No Action Needed LINDA Education Provided this Outreach: No Eliseo Michele RN September 22, 2024 12:58 PM documented in this encounter [facility] 09-18-2024 Telephone encounter Note Patient calling and states she is out of her pregabalin. Noted current prescription on record and contacted [facility] pharmacy to confirm this. Pharmacist states they have current script and will fill it for patient. Patient notified. Angela Mcguire RN [facility] 09-18-2024 Miscellaneous Notes Patient calling and states she is out of her pregabalin. Noted current prescription on record and contacted [facility] pharmacy to confirm this. Pharmacist states they have current script and will fill it for patient. Patient notified. Angela Mcguire RN documented in this encounter [facility] 09-17-2024 Instructions Rosie Syed APRN.KAITLYN - 09/17/2024 10:40 AM EST Decrease the carvedilol to 3.125 mg twice daily. Try the lac-hydrin cream to the legs. Get labwork. Recheck in 1 month. documented in this encounter [facility] 09-17-2024 Note [facility] 09-17-2024 History of Presen t illness Narrative This is a 83 year old female who presents today with: Patient presents with: Follow Up HISTORY OF PRESENT ILLNESS: Floreicta Healy is a 83 year old female. Patient presents with: Follow Up Pt presents today to follow-up. She reports that she feels the carvedilol is causing leg swelling. She tried holding the carvedilol and reports swelling improved. She has been recently taking the carvedilol; however, has only been taking once daily. BP controlled today. No CP. Chronic HILL. She reports dry skin. She has been using lotions, without improvement. PAST MEDICAL HISTORY: PAST MEDICAL HISTORY Diagnosis Date Abnormal ultrasound of breast 12/02/15 Left Breast cancer of upper-outer quadrant of left female breast (HCC) Chronic obstructive pulmonary disease (COPD) (HCC) Chronic pain 06/03/2012 sees pain management. Diarrhea 11/06/2022 Hyperlipidemia 06/03/2012 Hypertension 06/03/2012 Nausea & vomiting 11/06/2022 Osteopenia Psor[address] Pulmonary nodule Dr. Dawn Sepsis ([facility]) 11/05/2022 Snoring PAST SURGICAL HISTORY Procedure Laterality Date AMPUTATE TOE; IP JOINT BREAST BIOPSY Left 12/02/2015 BX/EXC LYMPH NODE OPEN DEEP AXILLARY NODE Left 05/11/2015 DELIVERY ONLY , low transverse CHOLECYSTECTOMY COLONOSCOPY 05/13/2001 normal COLONOSCOPY 01/02/2007 diverticulosis COLONOSCOPY FLX DX W/COLLJ SPEC WHEN PFRMD 09/04/2013 Colonoscopy COLONOSCOPY FLX DX W/COLLJ SPEC WHEN PFRMD 12/07/2016 Colonoscopy COLONOSCOPY SCREENING 05/30/2022 Dr Borerro 5 year F/U HYSTERECTOMY HX stil has [...] Trees MEDICATIONS Current Outpatient Medications Medication Sig losartan (COZAAR) 25 mg tablet Take 1 tablet by mouth once daily. pregabalin (LYRICA) 50 mg capsule Take 1 capsule by mouth daily at bedtime for 90 days. baclofen 10 mg tablet Take 1 tablet by mouth daily at bedtime. amLODIPine (NORVASC) 10 mg tablet Take 0.5 tablets by mouth once daily. levothyroxine (SYNTHROID) 25 mcg tablet Take 1 tablet by mouth once daily. Except 2 tabs by mouth every Sunday and Sunday carvedilol (COREG) 6.25 mg tablet Take 1 tablet by mouth two times a day with meals. pregabalin (LYRICA) 50 mg capsule Take 1 capsule by mouth at bedtime as needed for up to 60 days. Biotin 10 mg tab Take 1 tablet by mouth once daily. cyanocobalamin (VITAMIN B-12) 100 mcg tab Take 100 mcg by mouth once daily. acetaminophen (TYLENOL) 325 mg tablet Take 2 tablets by mouth every 4 hours as needed for pain. cholecalciferol, vitamin D3, (VITAMIN D3 ORAL) Take [...] History Tobacco Use Smoking status: Every Day Current packs/day: 1.00 Average packs/day: 1 pack/day for 40.0 years (40.0 ttl pk-yrs) Types: Cigarettes Smokeless tobacco: Never Vaping Use Vaping status: Never Used Substance Use Topics Alcohol use: No Drug use: No EXAM: BP 112/70 Pulse 90 Resp 16 Wt 73 kg (161 lb) SpO2 92% BMI 26.79 kg/m PHYSICAL EXAM: General Appearance: Well appearing, alert, in no acute distress, well-hydrated, well nourished.. Skin: Skin color, texture, turgor normal, no suspicious rashes or lesions. Head: Normocephalic, no masses, lesions, tenderness or abnormalities. Eyes: Anicteric sclera. Extraocular movements are intact. . Lungs: Lungs clear to auscultation. No wheezing, rhonchi, rales.. Heart: RRR without murmur, gallop, or rubs. No ectopy. Extremities: No deformities, +2 LE edema. Consistent with venous insufficiency. + dry skin. Neurologic: Gait normal. ASSESSMENT/PLAN: 1. Primary hypertension - ICD9: 401.9, ICD10: I10 (primary diagnosis) - Controlled Pt believes that carvedilol is causing swelling of legs. BP is controlled. Pt is agreeable to trial of lower dose. - CARVEDILOL 3.125 MG TABLET - COMPLETE BLOOD COUNT AND DIFFERENTIAL - COMPREHENSIVE METABOLIC PANEL Recheck in 1 month. 2. Leg swelling - ICD9: 729.81, ICD10: M79.89 Thinks the carvedilol is causing. Will try lower dose. Prop legs. 3. 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 Dry skin - ICD9: 701.1, ICD10: L85.3 Will try lac-hydrin. - AMMONIUM LACTATE 12 % TOPICAL CREAM Discussed treatment plan and patient voices understanding. Patient's questions answered appropriately. Medications and potential side effects were discussed and patient voices understanding. Return to the office as scheduled or as needed for worsening/no improvement. Rosie Syed APRN.[facility] documented in this encounter [facility] 09-08-2024 Note [facility] 09-08-2024 History of Presen t illness Narrative [facility] Telephonic Outreach Provider Action/FYI Contacted for: Routine Telephonic Outreach Contact made with patient: No, left message. Eliseo Michele RN September 08, 2024 10:22 AM documented in this encounter [facility] 09-05-2024 Note [facility] 09-05-2024 History of Presen t illness Narrative [facility] Telephonic Outreach Provider Action/FYI Contacted for: Routine Telephonic Outreach Contact made with patient: No, left message. Eliseo Michele RN September 05, 2024 11:14 AM documented in this encounter [facility] 08-25-2024 Telephone encounter Note Patient has been identified by name and date of : Patient phones for refill(s): Requested Prescriptions Pending Prescriptions Disp Refills losartan (COZAAR) 25 mg tablet 90 tablet 1 Sig: Take 1 tablet by mouth once daily. pregabalin (LYRICA) 50 mg capsule 90 capsule 0 Sig: Take 1 capsule by mouth daily at bedtime for 90 days. Date of last office visit in primary care: 08/12/2024 Date of next office visit in primary care: 09/17/2024 Please advise. Thank you. Holly Wood LPN. [facility] 08-25-2024 Miscellaneous Notes Patient has been identified by name and date of : Patient phones for refill(s): Requested Prescriptions Pending Prescriptions Disp Refills losartan (COZAAR) 25 mg tablet 90 tablet 1 Sig: Take 1 tablet by mouth once daily. pregabalin (LYRICA) 50 mg capsule 90 capsule 0 Sig: Take 1 capsule by mouth daily at bedtime for 90 days. Date of last office visit in primary care: 08/12/2024 Date of next office visit in primary care: 09/17/2024 Please advise. Thank you. Holly Wood LPN. documented in this encounter [facility] 08-12-2024 Instructions Rosie Syed APRN.KAITLYN - 08/12/2024 11:33 AM EDT Continue the same medication. Recheck, as scheduled. documented in this encounter [facility] 08-12-2024 Note [facility] 08-12-2024 History of Presen t illness Narrative This is a 83 year old female who presents today with: Patient presents with: Recheck: 1 week follow up HISTORY OF PRESENT ILLNESS: Florecita Healy is a 83 year old female. Patient presents with: Recheck: 1 week follow up Pt presents today for 1 month follow-up. Having some trouble with ears. Hears self talking. Popping/cracking. Refers that she went to ent and advised to listen to music. (But per description, sounds like she was seen for tinnitus). Started a few months. + allergies/sinuses. HTN Did try to stagger the doses of her medication and change the losartan to evening, but then would forget to take it. Continues with some dizziness if she turns quickly. Usually starts an hour after taking her morning medications. Suspect that she is taking several antihypertensives at the same time in the morning causing her to have symptoms of dizziness. BP stable today. PAST MEDICAL HISTORY: PAST MEDICAL HISTORY Diagnosis Date Abnormal ultrasound of breast 12/02/15 Left Breast cancer of upper-outer quadrant of left female breast ([facility]) Chronic obstructive pulmonary disease (COPD) ([facility]) Chronic pain 06/03/2012 sees pain management. Diarrhea 11/06/2022 Hyperlipidemia 06/03/2012 Hypertension 06/03/2012 Nausea & vomiting 11/06/2022 Osteopenia Psoriasis Pulmonary nodule Dr. Dawn Sepsis ([facility]) 11/05/2022 Snoring PAST SURGICAL HISTORY Procedure Laterality [...] Trees MEDICATIONS Current Outpatient Medications Medication Sig baclofen 10 mg tablet Take 1 tablet by mouth daily at bedtime. amLODIPine (NORVASC) 10 mg tablet Take 0.5 tablets by mouth once daily. losartan (COZAAR) 25 mg tablet Take 1 tablet by mouth once daily. pregabalin (LYRICA) 50 mg capsule Take 1 capsule by mouth daily at bedtime for 90 days. levothyroxine (SYNTHROID) 25 mcg tablet Take 1 tablet by mouth once daily. Except 2 tabs by mouth every Sunday and Sunday carvedilol (COREG) 6.25 mg tablet Take 1 tablet by mouth two times a day with meals. pregabalin (LYRICA) 50 mg capsule Take 1 capsule by mouth at bedtime as needed for up to 60 days. Biotin 10 mg tab Take 1 tablet by mouth once daily. cyanocobalamin (VITAMIN B-12) 100 mcg tab Take 100 mcg by mouth once daily. acetaminophen (TYLENOL) 325 mg tablet Take 2 tablets by mouth every 4 hours as needed for pain. cholecalciferol, vitamin D3, (VITAMIN D3 ORAL) Take [...] History Tobacco Use Smoking status: Every Day Current packs/day: 1.00 Average packs/day: 1 pack/day for 40.0 years (40.0 ttl pk-yrs) Types: Cigarettes Smokeless tobacco: Never Vaping Use Vaping status: Never Used Substance Use Topics Alcohol use: No Drug use: No EXAM: BP 138/84 Pulse 74 Resp 16 SpO2 96% PHYSICAL EXAM: General Appearance: Well appearing, alert, in no acute distress, well-hydrated, well nourished.. Skin: Skin color, texture, turgor normal, no suspicious rashes or lesions. Head: Normocephalic, no masses, lesions, tenderness or abnormalities. Eyes: Anicteric sclera. Extraocular movements are intact. . Ears: External ears normal, canals clear. Normal TMs bilaterally. Neck: Supple, no adenopathy; thyroid symmetric, normal size, no bruits. Lungs: Lungs clear to auscultation. No wheezing, rhonchi, rales.. Heart: RRR without murmur, gallop, or rubs. No ectopy. Neurologic: Gait normal. ASSESSMENT/PLAN: 1. Primary hypertension - ICD9: 401.9, ICD10: I10 (primary diagnosis) - Controlled Discussed with patient that she can continue to try to stagger medication. Instead of evening she can try changing the losartan to lunchtime or afternoon. Return as scheduled. 2. Need for influenza vaccination - ICD9: V04.81, ICD10: Z23 - INFLUENZA VACCINE, PRSV FREE, AGE 65+ YR, HIGH DOSE, TRIVALENT (FLUZONE HIGH-DOSE) 3. Eustachian tube dysfunction, bilateral - ICD9: 381.81, ICD10: H69.93 Encouraged to start flonase. Discussed treatment plan and patient voices understanding. Patient's questions answered appropriately. Medications and potential side effects were discussed and patient voices understanding. Return to the office as scheduled or as needed for worsening/no improvement. Rosie Syed APRN.[facility] documented in this encounter [facility] 08-08-2024 Note [facility] 08-08-2024 History of Presen t illness Narrative [facility] Telephonic Outreach Provider Action/FYI Contacted for: Routine Telephonic Outreach Contact made with patient: No, left message. Eliseo Michele RN August 08, 2024 3:05 PM documented in this encounter [facility] 07-28-2024 Note [facility] 07-28-2024 History of Presen t illness Narrative [facility] Telephonic Outreach Provider Action/FYI Contacted for: Routine Telephonic Outreach Contact made with patient: No, left message. Eliseo Michele RN July 28, 2024 10:50 AM documented in this encounter [facility] 07-25-2024 Note [facility] 07-25-2024 History of Presen t illness Narrative [facility] Telephonic Outreach Provider Action/FYI Contacted for: Routine Telephonic Outreach Contact made with patient: No, left message. Eliseo Michele RN July 25, 2024 11:47 AM documented in this encounter [facility] 07-22-2024 Telephone encounter Note The patient has been identified by name and date of : Yes Caregiver verified no other encounters exist for this prescription request: Yes Caregiver confirmed with patient/requestor that no other refills are due, in the near future, with this provider at this time: Yes The last office visit in the department: 07/09/2024 Does the patient have a future office visit with this provider/department: Yes 08/06/2024 Requested Prescriptions Pending Prescriptions Disp Refills baclofen 10 mg tablet 90 tablet 1 Sig: Take 1 tablet by mouth daily at bedtime. Aneta Griffith RN July 22, 2024 11:[address] [facility] 07-22-2024 Miscellaneous Notes The patient has been identified by name and date of : Yes Caregiver verified no other encounters exist for this prescription request: Yes Caregiver confirmed with patient/requestor that no other refills are due, in the near future, with this provider at this time: Yes The last office visit in the department: 07/09/2024 Does the patient have a future office visit with this provider/department: Yes 08/06/2024 Requested Prescriptions Pending Prescriptions Disp Refills baclofen 10 mg tablet 90 tablet 1 Sig: Take 1 tablet by mouth daily at bedtime. Aneta Griffith RN July 22, 2024 11:00 AM documented in this encounter [facility] 07-09-2024 Rosie Chavez APRN.[facility] - 07/09/2024 1:35 PM EDT Change the losartan to evening. Recheck in 1 month. documented in this encounter [facility] 07-09-2024 Note [facility] 07-09-2024 History of Presen t illness Narrative This is a 83 year old female who presents today with: Patient presents with: Recheck: 1 week BP check HISTORY OF PRESENT ILLNESS: Florecita Healy is a 83 year old female. Patient presents with: Recheck: 1 week BP check Refers that she has been checking her home blood pressures. She reports that she check her blood pressures several time at home. She did restart carvedilol. We changed the lisinopril to losartan d/t cough. She is taking amlodipine 5 mg daily. Refers that she takes all her medications in the morning. Refers that it is after she takes her medication is when she feels bad. She checks home BPs several times daily - refers that she is getting as low as 114. Review of her machine shows lowest in 120's, but primarily in the 130's. PAST MEDICAL HISTORY: PAST MEDICAL HISTORY 12/02/15: Abnormal ultrasound of breast Comment: Left No date: Breast cancer of upper-outer quadrant of left female breast (HCC) No date: Chronic obstructive pulmonary disease (COPD) ([facility]) 06/03/2012: Chronic pain Comment: sees pain management. 11/06/2022: Diarrhea 06/03/2012: Hyperlipidemia 06/03/2012: Hypertension 11/06/2022: Nausea & vomiting No date: Osteopenia No date: Psoriasis No date: Pulmonary nodule Comment: Dr. Dawn 11/05/2022: Sepsis (HCC) No date: Snoring PAST SURGICAL HISTORY No date: AMPUTATE TOE; IP JOINT 12/02/2015: BREAST BIOPSY; Left 05/11/2015: BX/EXC LYMPH NODE OPEN DEEP AXILLARY NODE; Left No date: DELIVERY ONLY Comment: , low transverse No date: CHOLECYSTECTOMY 05/13/2001: COLONOSCOPY Comment: normal 01/02/2007: COLONOSCOPY Comment: diverticulosis 09/04/2013: COLONOSCOPY FLX DX W/COLLJ SPEC WHEN PFRMD Comment: Colonoscopy 12/07/2016: COLONOSCOPY FLX DX W/COLLJ SPEC WHEN PFRMD Comment: Colonoscopy 05/30/2022: COLONOSCOPY SCREENING Comment: Dr Borrero 5 year F/U No date: HYSTERECTOMY HX Comment: stil has one ovary No date: INCISE FINGER TENDON SHEATH; Right No date: INCISE FINGER TENDON SHEATH; Right 05/11/2015: MASTECTOMY, PARTIAL; Left 08/01/2019: NEUROPLASTY &/TRANSPOS MEDIAN NRV CARPAL TUNNE; Right Comment: Right carpal tunnel release 10/11/2017: ORTHOPEDIC SURGERY HX; Left Comment: 3rd and 4th trigger finger release 05/11/2015: PERQ DEVICE PLACEMENT BREAST LOC 1ST LES W/GDNCE; Left No date: THYROIDECTOMY TOTAL/COMPLETE Comment: right sided thyroidectomy due to nodules. were benign 01/2015: XCAPSL CTRC RMVL INSJ IO LENS PROSTH W/O ECP Comment: Cataract Extraction with PC IOL ALLERGIES Animal Dander, Darvocet A500 [Propoxyphene N-Acetaminophen], Dust, Grass Pollen, Mold, Soma [Carisoprodol], and Trees MEDICATIONS Current Outpatient Medications Medication Sig amLODIPine (NORVASC) 10 mg tablet Take 0.5 tablets by mouth once daily. losartan (COZAAR) 25 mg tablet Take 1 tablet by mouth once daily. pregabalin (LYRICA) 50 mg capsule Take 1 capsule by mouth daily at bedtime for 90 days. levothyroxine (SYNTHROID) 25 mcg tablet Take 1 tablet by mouth once daily. Except 2 tabs by mouth every Sunday and Sunday baclofen 10 mg tablet Take 1 tablet by mouth daily at bedtime. carvedilol (COREG) 6.25 mg tablet Take 1 tablet by mouth two times a day with meals. pregabalin (LYRICA) 50 mg capsule Take 1 capsule by mouth at bedtime as needed for up to 60 days. Biotin 10 mg tab Take 1 tablet by mouth once daily. cyanocobalamin (VITAMIN B-12) 100 mcg tab Take 100 mcg by mouth once daily. acetaminophen (TYLENOL) 325 mg tablet Take 2 tablets by mouth every 4 hours as needed for pain. cholecalciferol, vitamin D3, (VITAMIN D3 ORAL) Take [...] History Tobacco Use Smoking status: Every Day Current packs/day: 1.00 Average packs/day: 1 pack/day for 40.0 years (40.0 ttl pk-yrs) Types: Cigarettes Smokeless tobacco: Never Vaping Use Vaping status: Never Used Substance Use Topics Alcohol use: No Drug use: No EXAM: BP 142/78 Pulse 79 Resp 16 SpO2 94% Home cuff -- 135/62 PHYSICAL EXAM: General Appearance: Well appearing, alert, in no acute distress, well-hydrated, well nourished.. Skin: Skin color, texture, turgor normal, no suspicious rashes or lesions. Head: Normocephalic, no masses, lesions, tenderness or abnormalities. Eyes: Anicteric sclera. Extraocular movements are intact. . Lungs: Lungs clear to auscultation. No wheezing, rhonchi, rales.. Heart: RRR without murmur, gallop, or rubs. No ectopy. Extremities: +2 swelling. Good capillary refill. Neurologic: Gait normal. ASSESSMENT/PLAN: 1. Primary hypertension - ICD9: 401.9, ICD10: I10 - Controlled - Continue current medications, but discussed changing her losartan to evening to see if tolerates better if she staggers the dosing. - Recommend home blood pressure monitoring, to bring results to next visit Recheck in 1 month. Discussed treatment plan and patient voices understanding. Patient's questions answered appropriately. Medications and potential side effects were discussed and patient voices understanding. Return to the office as scheduled or as needed for worsening/no improvement. Rosie Syed APRN.[employer] [employer] documented in this encounter [facility] 07-09-2024 Nurse Note 07/09/2024: Home BP Cuff Validated. Home BP: 135/62 Office BP: 142/[address] [facility] 07-09-2024 Nurse Note 07/09/2024: Home BP Cuff Validated. Home BP: 135/62 Office BP: 142/78 documented in this encounter [facility] 07-04-2024 Note [facility] 07-04-2024 History of Presen t illness Narrative Florecita Healy is identified through a medication adherence outreach initiative based on pharmacy claims data from [employer] (insurer) for ROB medication(s). Patient is reviewed 07/04/24 due to medication adherence concerns with the following medications (name, strength, sig): lisinopril 40mg, take 1 tablet daily. Per data/report, last fill date and days supply: due 06/17/24 Per reconcile dispense, last fill date and days supply: filled 03/19/24 for 90 days Per call to pharmacy, last picked up date and days supply: n/a Contacted patient: Spoke to patient Outcome of review/outreach: (choose outcome source and status) Patient said she stopped taking lisinopril for a little while because her BP was low, she just restarted again. is changing from lisinopril to losartan Lolis Sun documented in this encounter [facility] 07-03-2024 Note [facility] 07-03-2024 History of Presen t illness Narrative [facility] Telephonic Outreach Provider Action/FYI Contacted for: Routine Telephonic Outreach Contact made with patient: Yes Patient identified by name and date of . Discussed care with patient Are you experiencing any new or worsening symptoms you need to talk about today? No Disease Specific Do you check your blood pressure at home? Yes, Enter readings: 127/78 Do you have new or worsening shortness [...] pounds in a week? No Based on second vp hr assessment, the following disposition is advised: No symptoms or symptoms present, not severe. Routed to: No Action Needed LINDA Education Provided this Outreach: No Eliseo Michele RN July 03, 2024 1:30 PM documented in this encounter [facility] 07-01-2024 Instructions Rosie Syed APRN.CNP - 07/01/2024 11:41 AM EDT Stop the lisinopril. Start the losartan. Decrease the amlodipine to 1/2 tablet (5 mg) daily. Restart the carvedilol. Recheck in 1-2 weeks -- bring home cuff with you. documented in this encounter [facility] 07-01-2024 Note [facility] 07-01-2024 History of Presen t illness Narrative This is a 83 year old female who presents today with: Patient presents with: Acute Visit: Low bp for the last 2 weeks HISTORY OF PRESENT ILLNESS: Florecita Healy is a 83 year old female. Patient presents with: Acute Visit: Low bp for the last 2 weeks Pt presents today with complaint of low BP for 2 weeks. She reports that she has been having low blood pressures. Refers that her blood pressure have been under 117. Refers that she has been having some dizziness. She stopped the lisinopril for a week. Refers that she restarted that . Did notice that cough improved while off the lisinopril. Refers that she restarted the lisinopril. Now she has stopped the carvedilol. Has noticed that her heart rate is faster, though. She is currently taking the lisinopril and the amlodipine. Cannot remember if she took her blood pressure medications today. Doesn't think that she took them. PAST MEDICAL HISTORY: PAST MEDICAL HISTORY 12/02/15: Abnormal ultrasound of breast Comment: Left No date: Breast cancer of upper-outer quadrant of left female breast (HCC) No date: Chronic obstructive pulmonary disease (COPD) (HCC) 06/03/2012: Chronic pain Comment: sees pain management. 11/06/2022: Diarrhea 06/03/2012: Hyperlipidemia 06/03/2012: Hypertension 11/06/2022: Nausea & vomiting No date: Osteopenia No date: Psoriasis No date: Pulmonary nodule Comment: Dr. Dawn 11/05/2022: Sepsis (HCC) No date: Snoring PAST SURGICAL HISTORY No date: AMPUTATE TOE; IP JOINT 12/02/2015: BREAST BIOPSY; Left 05/11/2015: BX/EXC LYMPH NODE OPEN DEEP AXILLARY NODE; Left No date: DELIVERY ONLY Comment: , low transverse No date: CHOLECYSTECTOMY 05/13/2001: COLONOSCOPY Comment: normal 01/02/2007: COLONOSCOPY Comment: diverticulosis 09/04/2013: COLONOSCOPY FLX DX W/COLLJ SPEC WHEN PFRMD Comment: Colonoscopy 12/07/2016: COLONOSCOPY FLX DX W/COLLJ SPEC WHEN PFRMD Comment: Colonoscopy 05/30/2022: COLONOSCOPY SCREENING Comment: Dr Borrero 5 year F/U No date: HYSTERECTOMY HX Comment: stil has one ovary No date: INCISE FINGER TENDON SHEATH; Right No date: INCISE FINGER TENDON SHEATH; Right 05/11/2015: MASTECTOMY, PARTIAL; Left 08/01/2019: NEUROPLASTY &/TRANSPOS MEDIAN NRV CARPAL TUNNE; Right Comment: Right carpal tunnel release 10/11/2017: ORTHOPEDIC SURGERY HX; Left Comment: 3rd and 4th trigger finger release 05/11/2015: PERQ DEVICE PLACEMENT BREAST LOC 1ST LES W/GDNCE; Left No date: THYROIDECTOMY TOTAL/COMPLETE Comment: right sided thyroidectomy due to nodules. were benign 01/2015: XCAPSL CTRC RMVL INSJ IO LENS PROSTH W/O ECP Comment: Cataract Extraction with PC IOL ALLERGIES Animal Dander, Darvocet A500 [Propoxyphene N-Acetaminophen], Dust, Grass Pollen, Mold, Soma [Carisoprodol], and Trees MEDICATIONS Current Outpatient Medications Medication Sig pregabalin (LYRICA) 50 mg capsule Take 1 capsule by mouth daily at bedtime for 90 days. amLODIPine (NORVASC) 10 mg tablet Take 1 tablet by mouth once daily. lisinopril (ZESTRIL) 40 mg tablet Take 1 tablet by mouth once daily. levothyroxine (SYNTHROID) 25 mcg tablet Take 1 tablet by mouth once daily. Except 2 tabs by mouth every Sunday and Sunday baclofen 10 mg tablet Take 1 tablet by mouth daily at bedtime. carvedilol (COREG) 6.25 mg tablet Take 1 tablet by mouth two times a day with meals. pregabalin (LYRICA) 50 mg capsule Take 1 capsule by mouth at bedtime as needed for up to 60 days. Biotin 10 mg tab Take 1 tablet by mouth once daily. cyanocobalamin (VITAMIN B-12) 100 mcg tab Take 100 mcg by mouth once daily. acetaminophen (TYLENOL) 325 mg tablet Take 2 tablets by mouth every 4 hours as needed for pain. cholecalciferol, vitamin D3, (VITAMIN D3 ORAL) Take [...] History Tobacco Use Smoking status: Every Day Current packs/day: 1.00 Average packs/day: 1 pack/day for 40.0 years (40.0 ttl pk-yrs) Types: Cigarettes Smokeless tobacco: Never Vaping Use Vaping status: Never Used Substance Use Topics Alcohol use: No Drug use: No EXAM: BP 143/84 Pulse 86 Resp 16 SpO2 94% PHYSICAL EXAM: General Appearance: Well appearing, alert, in no acute distress, well-hydrated, well nourished.. Skin: Skin color, texture, turgor normal, no suspicious rashes or lesions. Head: Normocephalic, no masses, lesions, tenderness or abnormalities. Eyes: Anicteric sclera. Extraocular movements are intact. . Lungs: Lungs clear to auscultation. No wheezing, rhonchi, rales.. Heart: RRR without murmur, gallop, or rubs. No ectopy. Extremities: No deformities, +1 edema, skin discoloration, clubbing or cyanosis. Good capillary refill. Neurologic: Gait normal. ASSESSMENT/PLAN: 1. Primary hypertension - ICD9: 401.9, ICD10: I10 Pt reports home BPs have been low. Unsure if she took her medications today. Did notice that cough was improved when she trialed off the lisinopril. Will change the lisinopril to losartan. Will lower the amlodipine to 5 mg. Restart carvedilol. Recheck in 1-2 weeks. Bring home cuff. Discussed treatment plan and patient voices understanding. Patient's questions answered appropriately. Medications and potential side effects were discussed and patient voices understanding. Return to the office as scheduled or as needed for worsening/no improvement. Rosie Syed APRN.[employer]ERIFF documented in this encounter [facility] 06-21-2024 Note [facility] 06-21-2024 History of Presen t illness Narrative [facility] Telephonic Outreach Provider Action/FYI #2 attempt to contact patient. Contacted for: Routine Telephonic Outreach Contact made with patient: No, left message. Eliseo Michele RN June 21, 2024 3:28 PM documented in this encounter [facility] 06-20-2024 Note [facility] 06-20-2024 History of Presen t illness Narrative [facility] Telephonic Outreach Provider Action/FYI #1 attempt to contact patient. Contacted for: Routine Telephonic Outreach Contact made with patient: No, left message. Eliseo Michele RN June 20, 2024 3:10 PM documented in this encounter [facility] 06-16-2024 Telephone encounter Note Patient has been identified by name and date of : Patient phones for refill(s): Requested Prescriptions Pending Prescriptions Disp Refills pregabalin (LYRICA) 50 mg capsule 90 capsule 0 Sig: Take 1 capsule by mouth daily at bedtime for 90 days. Date of last office visit in primary care: 03/19/2024 Date of next office visit in primary care: 09/17/2024 Please advise. Thank you. Holly Wood LPN. [facility] 06-16-2024 Miscellaneous Notes Patient has been identified by name and date of : Patient phones for refill(s): Requested Prescriptions Pending Prescriptions Disp Refills pregabalin (LYRICA) 50 mg capsule 90 capsule 0 Sig: Take 1 capsule by mouth daily at bedtime for 90 days. Date of last office visit in primary care: 03/19/2024 Date of next office visit in primary care: 09/17/2024 Please advise. Thank you. Holly Wood LPN. documented in this encounter [facility] 06-05-2024 History of Presen t illness Narrative [facility] NAVIGATION OUTREACH Action/ Patient contacted to schedule Annual Medicare Wellness Visit. Spoke to patient and appointment scheduled. Reason for Outreach Care Gap/HCC or Scheduling Wellness Visits Care Gaps due: Medicare Annual Wellness Visit Patient Contacted: Spoke to patient/parent/or legal guardian Patient identified by name and : Yes Care Gap/HCC/Scheduling Wellness actions taken: Patient scheduled/pended labs: Medicare Annual Wellness Visit Care Gap/HCC or Scheduling Wellness Visits Care Gaps due: Medicare Annual Wellness Visit 09/17/2024 in [facility] with ROSIE SYED - Annual Medicare Wellness, address HCC gaps 05/06/2025 in RADIO MAMMO [facility] with SCREEN MAMMO [facility] - MAMMO 05/08/2025 in [facility] with NEVIN FAJARDO - 1 YR OV* / MAMMO DONE 05/06 Navigation Signature: Zeny Tabares MA June 05, 2024 10:56 AM documented in this encounter [facility] 06-05-2024 History of Presen t illness Narrative [facility] Telephonic Outreach Provider Action/FYI Contacted for: Routine Telephonic Outreach Contact made with patient: No, left message. Iveth Galindo RN June 05, 2024 9:47 AM [facility] Telephonic Outreach Provider Action/FYI Contacted for: Routine Telephonic Outreach Contact made with patient: No, left message. Iveth Galindo RN June 04, 2024 11:34 AM documented in this encounter [facility] 05-26-2024 Telephone encounter Note Pt notified. Janey Tamayo LPN [facility] 05-26-2024 Miscellaneous Notes Pt notified. Janey Tamayo LPN She can use the ibuprofen sparingly. We do not want to use it regularly/routinely as we want to protect her kidney function. Rosie Syed APRN.[place]ITLYN Phoned pt for further triage of arm pain. Pt states it's her R arm, she's been to see Ortho for this pain, most recently in April and was given prednisone taper. Last dose was 05/14. Prednisone did not give her any relief. Pt states she called Ortho back to get an injection, but can't get in until Jun 12. She is using baclofen, Lyrica and 2- Tylenol PM's without much relief. Pt would like to know if ok to take Ibuprofen? Janey Tamayo LPN Patient is wanting to know if she is able to take ibuprofen without causing adverse medication reaction with carvedilol. She reports having pain in her arm that is not reducing with Tylenol. Please notify patient of plan of care. documented in this encounter [facility] 05-26-2024 Telephone encounter Note She can use the ibuprofen sparingly. We do not want to use it regularly/routinely as we want to protect her kidney function. Rosie Syed APRN.[employer]ERIFF [facility] 05-26-2024 Telephone encounter Note Phoned pt for further triage of arm pain. Pt states it's her R arm, she's been to see Ortho for this pain, most recently in April and was given prednisone taper. Last dose was 05/14. Prednisone did not give her any relief. Pt states she called Ortho back to get an injection, but can't get in until Jun 12. She is using baclofen, Lyrica and 2- Tylenol PM's without much relief. Pt would like to know if ok to take Ibuprofen? Janey Tamayo LPN [facility] 05-26-2024 Telephone encounter Note Patient is wanting to know if she is able to take ibuprofen without causing adverse medication reaction with carvedilol. She reports having pain in her arm that is not reducing with Tylenol. Please notify patient of plan of care. [facility] 05-07-2024 History of Presen t illness Narrative Chief Complaint Patient presents with: Established Patient HPI: Florecita Healy is a 83 year old female who presents here today [...] cramping. Currently therapy:Observation No new concerns today. Appetite:Eh. Wt. stable. Energy level:It's down with this pain. Denies fevers or recent illness. Had covid at [place] 2023. Resp:denies cough or sob, occ. 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 Tim Heme:denies bleeding The ROS is otherwise negative. Past medical history, appointments, medications, allergies reviewed. No changes. EXAM: BP 166/74 Pulse 68 Temp 37.1 C (98.7 F) (Temporal) Wt 72.8 kg (160 lb 6.4 oz) BMI 26.69 kg/m APPEARANCE Well appearing, alert, in no acute distress, well-hydrated, well nourished. HEART RRR with normal S1 and S2, no murmurs LUNG clear to auscultation BREAST FEMALE no mass/nodule b/l, L scar lateral/radiation changes LYMPH NODES No cervical lymphadenopathy, No supraclavicular lymphadenopathy, and No axillary lymphadenopathy. ABDOMEN bowel sounds normoactive, soft, non-tender EXTREMITIES No edema NEURO Awake, alert and oriented x 3, Normal gait, and No involuntary motions. SKIN Skin color, texture, turgor normal, no suspicious rashes or lesions RADIOLOGY: Mammogram 05/05/24: IMPRESSION: BENIGN FINDING There is no mammographic evidence of malignancy. A 1 year screening mammogram is recommended. ASSESSMENT/PLAN: 1. Personal history of breast cancer - ICD9: V10.3, ICD10: Z85.3 pT1c N0 MX ER/AL positive HER2 non-amplified stage I invasive ductal [...] scheduled. - Mammogram due end of April 2025. - Follow up after above. - Pt. aware to call office with any questions/concerns. The patient indicates understanding of these issues and agrees with the plan. All documentation from previous visit of 09/25/23-Dr. Slaughter/myself was copied and pasted, documentation has been reviewed and edited as necessary for today's visit. Nevin Fajardo APRN.KAITLYN documented in this encounter [facility] 05-06-2024 Telephone encounter Note Left VM on identified VM. Emilie Conte LPN [facility] 05-06-2024 Miscellaneous Notes Left VM on identified VM. Emilie Conte LPN Please inform pt. that her mammogram looks good. Thank you. Nevin Fajardo APRN.[employer]IFF documented in this encounter [facility] 05-06-2024 Telephone encounter Note Please inform pt. that her mammogram looks good. Thank you. Nevin Fajardo APRN.COUNT[employer]IFF [facility] 05-06-2024 Note Formatting of this n ote might be different from the original. May 06, 2024 PID: [id number] Florecita Healy [address] [place], [place] [address] [place] [address] Dear Ms. Healy, We are pleased to inform you that the results of your recent breast imaging exam on 05/05/2024 are normal. Early detection of cancer is very important. We also understand recommendations regarding breast cancer screening are controversial. Please discuss with your primary care provider which strategy is best for you and whether a mammogram is right for you. Your imaging studies and report will be kept on file at [facility] as part of your permanent medical record and are available for your continuing care. Thank you for allowing us to help in meeting your health care needs. Sincerely, Dr. Kaiser Interpreting Radiologist [facility] (Normal over 40) [facility] 05-06-2024 Miscellaneous Notes May 06, 2024 PID: [id number] Florecita Healy [address] [place] [id number] Dear Ms. Healy, We are pleased to inform you that the results of your recent breast imaging exam on 05/05/2024 are normal. Early detection of cancer is very important. We also understand recommendations regarding breast cancer screening are controversial. Please discuss with your primary care provider which strategy is best for you and whether a mammogram is right for you. Your imaging studies and report will be kept on file at [facility] as part of your permanent medical record and are available for your continuing care. Thank you for allowing us to help in meeting your health care needs. Sincerely, Dr. Kaiser Interpreting Radiologist [facility] (Normal over 40) documented in this encounter [facility] 05-05-2024 History of Presen t illness Narrative Radiology Service Progress Note PATIENT NAME: Florecita Healy DATE OF SERVICE: May 05, 2024 TIME: 10:15 AM PATIENT IDENTITY VERIFICATION COMPLETED USING TWO (2) IDENTIFIERS: Name and Date of confirmed by patient verbally. FALL SCREENING: Has the patient had 2 falls in the last year or 1 fall with injury or currently using an Ambulatory Assistive Device (Walker, Cane, Wheelchair, Crutches, etc.)? No PATIENT GENDER DATA: Female. status: : No status: NO. PATIENT RELEVANT IMPLANT DATA REVIEWED: Not Applicable PATIENT PRESENTS WITH AN IMPLANTABLE OR ATTACHED TAX PROFESSIONAL: No RADIOLOGY DEPARTMENT: Mammography PERIPHERAL IV DATA: Not applicable SIGNED BY: Layla Mitchell May 05, 2024 10:15 AM documented in this encounter [facility] 04-30-2024 History of Presen t illness Narrative [facility] Telephonic Outreach Provider Action/FYI Contacted for: Routine Telephonic Outreach Contact made with patient: Yes Total time of phone call one hour and 10 minutes. Patient identified by name and date of . Discussed care with patient. Patient reports bilateral shoulder pain. She has had cortisone injections in the past and had approximately 4 years relief. She is scheduled for an appointment with [facility] tomorrow for evaluation. She also reports intermittent low back pain. She will try to apply ice or heat. Tens unit not helping. Does apply Voltaren gel as needed. Advised appointment with Dr. Canela to discuss the back and patient declined appointment assistance at this time. Directed patient to call [facility] if she changes her mind for appointment assistance. Advised patient she can also address at her [facility] appointment tomorrow to see what they advise. She did discuss some of her previous doctors and past Orthopedic history. She also discussed home remedies and world concerns and events. Patient also voiced concerns in regards to seeing resident doctors when she is scheduled to see Dr. Canela. Advised can always communicate to the staff that she does not want to see a resident doctor at her visit. Patient also advised if she any concerns or complaints she can always discuss with the [facility]. Offered to give patient the number for the Ombudsman office and she declined at this time. No new concerns or complaints related to chronic disease management. Are you experiencing any new or worsening symptoms you need to talk about today? No Disease Specific Do you check your blood pressure at home? Yes, Enter readings: last time she checked was 130's over 70's. Do you have new or worsening shortness of breath with activity? No patient reports since her Lisinopril was discontinued her cough and SOB stopped. Do you feel like you are dehydrated for any reason, including not being able to eat or drink normally, or having less urine/much darker urine than normal for you? No Does feel her taste buds are changing. Discussed her mother's past eating habits as well. Do you check your daily weight at home? Yes, Have you noticed a sudden gain in weight greater than three pounds in a day or three pounds in a week? No Based on second vp hr assessment, the following disposition is advised: No symptoms or symptoms present, not severe. Routed to: No Action Needed LINDA Education Provided this Outreach: No Eliseo Michele RN April 30, 2024 4:52 PM documented in this encounter [facility] 04-02-2024 History of Presen t illness Narrative [facility] Telephonic Outreach Provider Action/FYI Contacted for: Routine [...] pounds in a week? No Based on second vp hr assessment, the following disposition is advised: No symptoms or symptoms present, not severe. Routed to: No Action Needed LINDA Education Provided this Outreach: No Eliseo Michele RN April 02, 2024 2:21 PM documented in this encounter [facility] 03-24-2024 Telephone encounter Note Pt notified. She verbalized understanding. Janey Tamayo LPN [facility] 03-24-2024 Miscellaneous Notes Pt notified. She verbalized understanding. Janey Tamayo LPN ----- Message from Rosie Syed APRN.COUNT[employer]ERIFF sent at 03/24/2024 4:17 PM EDT ----- Can please let patient know that her labwork is within normal/stable. Rosie Syed APRN.COUNT[employer] SHERIFF documented in this encounter [facility] 03-24-2024 Telephone encounter Note ----- Message from Rosie Syed APRN.CNP sent at 03/24/2024 4:17 PM EDT ----- Can please let patient know that her labwork is within normal/stable. Rosie Syed APRN.COUNT[employer]ERIFF [facility] 03-19-2024 Instructions Rosie Syed APRN.CNP - 03/19/2024 11:03 AM EDT Get the labwork. Continue the same medication. documented in this encounter [facility] 03-19-2024 History of Presen t illness Narrative This is a 83 year old female who presents today with: Patient presents with: Recheck: BP check HISTORY OF PRESENT ILLNESS: Florecita Healy is a 83 year old female. Patient presents with: Recheck: BP check Pt presents today for BP check. HTN: Patient is compliant with meds Yes Monitors bp at home: Yes. Denies side effects: Yes. Chest pain: No Dyspnea: Yes. Edema: Yes. Palpitations: No. Syncope: No. Headache: No. Dizziness: Yes. Helped by eating toast w/ cinnamon sugar. Pain: Has been helping with the nighttime pain. Refers that helps with the restless legs. Able to go to sleep easier. Hypothyroidism Due for labs. Thyroid ultrasound done 11/2023. Psoriasis Follows with Aleksandr Tim. PAST MEDICAL HISTORY: PAST MEDICAL HISTORY Diagnosis Date Abnormal ultrasound of breast 12/02/15 Left Breast cancer of upper-outer quadrant of left female breast ([facility]) Chronic obstructive pulmonary disease (COPD) ([facility]) Chronic pain 06/03/2012 sees pain management. Diarrhea 11/06/2022 Hyperlipidemia 06/03/2012 Hypertension 06/03/2012 Nausea & vomiting 11/06/2022 Osteopenia Psoriasis Pulmonary nodule Dr. Dawn Sepsis ([facility]) 11/05/2022 Snoring PAST SURGICAL HISTORY Procedure Laterality [...] Current Outpatient Medications Medication Sig amLODIPine (NORVASC) 10 mg tablet Take 1 tablet by mouth once daily. pregabalin (LYRICA) 50 mg capsule Take 1 capsule by mouth daily at bedtime for 90 days. lisinopril (ZESTRIL) 40 mg tablet Take 1 tablet by mouth once daily. levothyroxine (SYNTHROID) 25 mcg tablet Take 1 tablet by mouth once daily. Except 2 tabs by mouth every Sunday and Sunday baclofen 10 mg tablet Take 1 tablet by mouth daily at bedtime. carvedilol (COREG) 6.25 mg tablet Take 1 tablet by mouth two times a day with meals. pregabalin (LYRICA) 50 mg capsule Take 1 capsule by mouth at bedtime as needed for up to 60 days. hydrALAZINE (APRESOLINE) 50 mg tablet Take 1 tablet by mouth every 8 hours as needed. Take for SBP > 140 Biotin 10 mg tab Take 1 tablet by mouth once daily. betamethasone dipropionate, augmented (DIPROLENE) 0.05 % cream Apply to affected area once daily as needed. cyanocobalamin (VITAMIN B-12) 100 mcg tab Take 100 mcg by mouth once daily. acetaminophen (TYLENOL) 325 mg tablet Take 2 tablets by mouth every 4 hours as needed for pain. cholecalciferol, vitamin D3, (VITAMIN D3 ORAL) Take [...] Smoking status: Every Day Packs/day: 1.00 Years: 40.00 Additional pack years: 0.00 Total pack years: 40.00 Types: Cigarettes Smokeless tobacco: Never Vaping Use Vaping Use: Never used Substance Use Topics Alcohol use: No Drug use: No EXAM: BP 135/78 Pulse 76 Resp 16 Wt 71.2 kg (157 lb) SpO2 95% BMI 26.13 kg/m PHYSICAL EXAM: General Appearance: Well appearing, alert, in no acute distress, well-hydrated, well nourished.. Skin: Skin color, texture, turgor normal, no suspicious rashes or lesions. Head: Normocephalic, no masses, lesions, tenderness or abnormalities. Eyes: Anicteric sclera. Extraocular movements are intact. . Neck: Supple, no adenopathy; thyroid symmetric, normal size, no bruits. Lungs: Lungs clear to auscultation. No wheezing, rhonchi, rales.. Heart: RRR without murmur, gallop, or rubs. No ectopy. Extremities: No deformities, edema, skin discoloration, clubbing or cyanosis. Good capillary refill. Neurologic: Gait normal. ASSESSMENT/PLAN: 1. Primary hypertension - ICD9: 401.9, ICD10: I10 (primary diagnosis) - Controlled - Continue current medications - Recommend home blood pressure monitoring, to bring results to next visit - Encouraged sodium restriction, DASH or Mediterranean diet - Recommend regular aerobic exercise - COMPLETE BLOOD COUNT AND DIFFERENTIAL - COMPREHENSIVE METABOLIC PANEL 2. Chronic pain syndrome - ICD9: 338.4, ICD10: G89.4 Stable on the pregabalin. 3. Multiple thyroid nodules - ICD9: 241.1, ICD10: E04.2 No nodules on thyroid ultrasound. Recheck labs. - THYROID STIMULATING HORMONE 4. Hyperglycemia - ICD9: 790.29, ICD10: R73.9 Surveillance. - HEMOGLOBIN A1C 5. Hyperlipidemia, unspecified hyperlipidemia type - ICD9: 272.4, ICD10: E78.5 - Control undetermined, due for labs - Counseled on healthy diet and regular exercise - LIPID PANEL, NONFASTING Discussed treatment plan and patient voices understanding. Patient's questions answered appropriately. Medications and potential side effects were discussed and patient voices understanding. Return to the office as scheduled or as needed for worsening/no improvement. Rosie Syed APRN.CNP documented in this encounter [facility] 03-17-2024 Note Addended by: ROSIE SYED on: 03/17/2024 07:26 PM Modules accepted: Orders [facility] 03-17-2024 Telephone encounter Note Script sent. Due for an appt. Rosie Syed APRN.CNP [facility] 03-17-2024 Miscellaneous Notes Addended by: ROSIE SYED on: 03/17/2024 07:26 PM Modules accepted: Orders Script sent. Due for an appt. Rosie Syed APRN.CNP Patient has been identified by name and date of : Yes, Patient phones for refill(s): Requested Prescriptions Pending Prescriptions Disp Refills amLODIPine (NORVASC) 10 mg tablet Sig: Take 1 tablet by mouth once daily. lisinopril (ZESTRIL) 40 mg tablet 90 tablet 1 Sig: Take 1 tablet by mouth once daily. pregabalin (LYRICA) 50 mg capsule 90 capsule 0 Sig: Take 1 capsule by mouth daily at bedtime for 90 days. Date of last office visit in primary care: 12/05/2023 Date of next office visit in primary care: Visit date not found Please advise. Thank you. Zehra Morejon. documented in this encounter [facility] 03-17-2024 Telephone encounter Note Patient has been identified by name and date of : Yes, Patient phones for refill(s): Requested Prescriptions Pending Prescriptions Disp Refills amLODIPine (NORVASC) 10 mg tablet Sig: Take 1 tablet by mouth once daily. lisinopril (ZESTRIL) 40 mg tablet 90 tablet 1 Sig: Take 1 tablet by mouth once daily. pregabalin (LYRICA) 50 mg capsule 90 capsule 0 Sig: Take 1 capsule by mouth daily at bedtime for 90 days. Date of last office visit in primary care: 12/05/2023 Date of next office visit in primary care: Visit date not found Please advise. Thank you. Zehra Morejon. [facility] 02-20-2024 Miscellaneous Notes During Telephonic Outreach patient had the below refill requests. Requested Prescriptions Pending Prescriptions Disp Refills lisinopril (ZESTRIL) 40 mg tablet 90 tablet 1 Sig: Take 1 tablet by mouth once daily. levothyroxine (SYNTHROID) 25 mcg tablet 114 tablet 3 Sig: Take 1 tablet by mouth once daily. Except 2 tabs by mouth every Sunday and Sunday Orders pended and sent to Tu Canela MD for review. Eliseo Michele RN documented in this encounter [facility] 02-20-2024 History of Presen t illness Narrative CDM Telephonic Outreach Provider Action/FYI Goals, Falls, and ADLs updated. Contacted for: Routine Telephonic Outreach Contact made with patient: Yes Patient identified by name and date of . Discussed care with patient. Patient did notice some worse swelling of the feet and ankles yesterday. Today it has improved per patient. Feels could be related to the weather changes. Denies SOB or increase in weight as she does check daily weights. She reports the swelling has been present for many years. Are you experiencing any new or worsening symptoms you need to talk about today? No Disease Specific Do you check your blood pressure at home? Yes, Enter readings: no concerns reported. Do you have new or worsening shortness [...] pounds in a week? No Based on second vp hr assessment, the following disposition is advised: No symptoms or symptoms present, not severe. Routed to: No Action Needed LINDA Education Provided this Outreach: No Eliseo Michele RN February 20, 2024 2:58 PM documented in this encounter [facility] 01-25-2024 Miscellaneous Notes During Telephonic Outreach patient had the below refill request. Requested Prescriptions Pending Prescriptions Disp Refills baclofen 10 mg tablet 90 tablet 1 Sig: Take 1 tablet by mouth daily at bedtime. Patient requesting a 90 day supply and states she take one 10 mg tab of baclofen at bedtime. Order pended and sent to Tu Canela MD for review. Eliseo Michele RN documented in this encounter [facility] 01-25-2024 History of Presen t illness Narrative CDM Telephonic Outreach Provider Action/FYI Contacted for: Routine Telephonic Outreach Contact made with patient: Yes Patient identified by name and date of . Discussed care with patient Are you experiencing any new or worsening symptoms you need to talk about today? No Disease Specific Do you check your blood pressure at home? Yes, Enter readings: been good per patient Do you have new or worsening shortness of breath with activity? No She states she is a smoker she she always SOB but denies any changes or worsening. Do you feel like you are dehydrated for any reason, including not being able to eat or drink normally, or having less urine/much darker urine than normal for you? No Do you check your daily weight at home? Yes, Have you noticed a sudden gain in weight greater than three pounds in a day or three pounds in a week? No Based on second vp hr assessment, the following disposition is advised: No symptoms or symptoms present, not severe. Routed to: No Action Needed LINDA Education Provided this Outreach: No Eliseo Michele RN January 25, 2024 9:45 AM documented in this encounter [facility] 01-24-2024 History of Presen t illness Narrative [facility] Telephonic Outreach Provider Action/FYI #1 attempt to contact patient. Contacted for: Routine Telephonic Outreach Contact made with patient: No, left message. Eliseo Michele RN January 24, 2024 3:31 PM documented in this encounter [facility] 01-10-2024 History of Presen t illness Narrative [facility] Telephonic Outreach Provider Action/FYI #2 attempt to contact patient. Contacted for: Routine Telephonic Outreach Contact made with patient: No, left message. Eliseo Michele RN January 10, 2024 10:56 AM documented in this encounter [facility] 01-09-2024 History of Presen t illness Narrative [facility] Telephonic Outreach Provider Action/FYI #1 attempt to contact patient. Contacted for: Routine Telephonic Outreach Contact made with patient: No, left message. Eliseo Michele RN January 09, 2024 12:00 PM documented in this encounter [facility] 12-17-2023 Miscellaneous Notes The following approved medication requests have been transmitted electronically. Requested Prescriptions Pending Prescriptions Disp Refills carvedilol (COREG) 6.25 mg tablet 180 tablet 1 Sig: Take 1 tablet by mouth two times a day with meals. Netta Hutson APRN.KAITLYN Pt called in and was asking to get Lyrical refilled. Let her know that she already had refill at [facility]. Patient has been identified by name and date of : Patient phones for refill(s): Requested Prescriptions Pending Prescriptions Disp Refills carvedilol (COREG) 6.25 mg tablet 180 tablet 1 Sig: Take 1 tablet by mouth two times a day with meals. Pt was originally prescribed this by Dr. Pagan when she was admitted to [facility] in Oct 2023. Has seen Rosie Yahaira since then who told her that she should stay on this medication. Pt requesting a 90 day supply. Date of last office visit in primary care: 12/05/2023 Date of next office visit in primary care: 01/28/2024 Please advise. Thank you. Lupe Scott RN. documented in this encounter [facility] 11-26-2023 Telephone encounter Note 1st call attempt, left vm [facility] 11-26-2023 Miscellaneous Notes 1st call attempt, left vm Had 1/2 of thyroid removed when she was in her 20's. Willing to have US completed. Advised that would have someone contact to set up. 11/13/2023 CTA chest demonstrated thyroid nodules left and right (hx of benign nodules on bx right): radiologist recommend thyroid US. Probably would be a good idea to update US. I can't find records of US or bx so likely not done here . Telephone on 11/24/23 US THYROID/PARATHYROID Multiple thyroid nodules (primary encounter diagnosis) ThanksBernard PA-C documented in this encounter [facility] 11-26-2023 Telephone encounter Note Had 1/2 of thyroid removed when she was in her 20's. Willing to have US completed. Advised that would have someone contact to set up. [facility] 11-24-2023 Telephone encounter Note 11/13/2023 CTA chest demonstrated thyroid nodules left and right (hx of benign nodules on bx right): radiologist recommend thyroid US. Probably would be a good idea to update US. I can't find records of US or bx so likely not done here . Telephone on 11/24/23 US THYROID/PARATHYROID Multiple thyroid nodules (primary encounter diagnosis) ThanksBernard PA-C [facility] 11-13-2023 Discharge summary Note Date/Time November 13, 2023 8:47pm [facility] Medical Records Department [address] [place] [address] Emergency Department Summary 11/13/23 MR#: [id number] Acct: [id number] Name: FLORECITA HEALY Rep #:[id number] : 1940 83 From: Hector Sprague PCP: FARRAH Rivera Status:REG E R Location: ED HPI History of Present Illness Chief Complaint: Shortness of Breath Informant: patient and family Narrative Narrative: Presents worsening dyspnea cough worse with exertion. Discharged from [facility] 3-day stay for COVID dehydration. She has been vaccinated. States hadCOVID symptoms prior to testing. First diagnosed COVID. Tobacco history however denies diagnosis COPD. No fevers. States headache and cough and congestion. No chest pains. Remote history of breast cancer. States still hasdiarrhea. PE Risk Factors: Positive for Cancer; Negative for Prior DVT or PE PFSH [facility] Medical History Amputation toe Arthritis Breast cancer of upper-outer quadrant of left female breast Cancer Chronic kidney disease, unspecified Chronic pain Constipation Dermatitis Diverticulosis Eczema Edema Essential hypertension Fatty liver History of Jovana thyroiditis Hyperlipidemia Osteopenia Prediabetes Psoriasis Pulmonary nodule Shortness of breath on exertion Smoker Wears dentures Home Medications diphenhydramine 25 mg-acetaminophen 500 mg tablet (Tylenol PM Extra Strength) 2 ea PO QHS 05/05/15 [History Last Taken Unknown] levothyroxine 25 mcg tablet 25 mcg PO DAILY 05/05/15 [History Last Taken 05/30/22 03:30] vitamin E (dl, acetate) 180 mg (400 unit) capsule 400 units PO DAILY 05/05/15 [History Last Taken Unknown] baclofen 10 mg tablet 10 mg PO DAILY 03/23/22 [History Last Taken Unknown] cholecalciferol (vitamin D3) 50 mcg (2,000 unit) capsule 50 mcg PO DAILY 03/23/22 [History Last Taken Unknown] biotin 10 mg tablet 10 mg PO DAILY 05/24/22 [History Last Taken Unknown] magnesium 250 mg tablet 250 mg PO DAILY 05/24/22 [History Last Taken Unknown] multivitamin 1 tab PO DAILY 05/24/22 [History Last Taken Unknown] lisinopril 10 mg tablet 20 mg PO DAILY 06/23/22 [History Last Taken Unknown] Allergy/AdvReac Type Severity Reaction Status Date / Time carisoprodol [From Soma] Allergy Hives Verified 11/13/23 19:47 propoxyphene napsylate Allergy Other Verified 11/13/23 19:47 [From RaghavendraN] Family History Father Heart disease Black lung Mother Rheumatoid arthritis Sister Diabetes Cancer Kidney Brother Cancer Lung Surgical History H/O thyroidectomy H/O: hysterectomy History of carpal tunnel release Hx of cholecystectomy Social History Smoking Status: Current every day smoker tobacco type: cigarettes alcohol intake: never substance use type: does not use ROS ROS ED Constitutional Constitutional ED: Denies chills, fever(s) or sweats Eyes Eyes: Denies change in vision ENT ENT ED: Denies dysphagia or sore throat Cardiovascular Cardiovascular: Denies chest pain, leg edema, palpitations or racing heartbeat Respiratory/Chest Respiratory/Chest: Reports cough, dyspnea and dyspnea on exertion Gastrointestinal Gastrointestinal: Reports diarrhea; Denies abdominal pain, nausea or vomiting Genitourinary Genitourinary ED: Denies dysuria, hematuria or urinary frequency Musculoskeletal Musculoskeletal: Denies back pain, extremity pain or neck pain Integumentary Denies rash or wounds Neurologic Neurologic: Denies headache(s), paresthesias or weakness EXAM Physical Exam Const Vital Signs: 11/13/23 19:42 11/13/23 20:30 11/13/23 20:46 Temperature 97.8 F 97.8 F Temperature Source Temporal Temporal Pulse Rate 94 76 Respiratory Rate 18 16 Respiratory Effort Short of Breath Respiratory Depth Normal Respiratory Pattern Tachypnea Blood Pressure 156/91 H 165/105 H Blood Pressure Mean 112 125 Pulse Ox 97 96 Oxygen Delivery Method Room Air Room Air 11/13/23 21:00 Temperature 97.4 F L Temperature Source Temporal Pulse Rate 74 Respiratory Rate 16 Respiratory Effort Respiratory Depth Respiratory Pattern Blood Pressure 171/78 H Blood Pressure Mean 109 Pulse Ox 96 Oxygen Delivery Method Positive well nourished and well developed General Appearance ED: well developed and NAD HEENT Reports dry mucous membranes normocephalic and atraumatic Mouth ED: Yes dry mucous membranes Mouth: dry mucous membranes Eyes PERRL, EOMs intact bilaterally and conjunctivae normal General Eye ED: Yes normal appearance of both eyes Neck no lymphadenopathy and supple General: Negative for tenderness Chest Wall Chest: Negative for tenderness Resp normal respiratory effort and normal air movement Effort and Inspection: symmetric chest movement; Negative for respiratory distress Cardio regular rate, regular rhythm and no murmurs Peripheral Pulses: pulses 2+ throughout GI normal to inspection, nondistended, normoactive bowel sounds and non-tender Palpation: Negative for guarding or rebound tenderness present Back/Spine no CVA tenderness and no thoracic nor lumbar tenderness Extremity normal to inspection General Extremety ED: Negative for edema or tenderness General Extremity: Negative for edema Neuro oriented x3, CN's II-XII intact bilaterally and no sensory deficits noted Sensorium / Orientation: awake and alert Skin no rashes or lesions noted and no wounds MDM MDM MDM Narrative Medical decision making narrative: Interventions / MDM: Differential diagnosis: COVID-19 infection, electrolyte abnormalities, cough Diagnosis considered but do not suspect: Pulmonary embolism however CT negative. My EKG interpretation: EKG: Sinus rate of 75, no ST or T wave changes. QTc 464. Imaging independently reviewed and interpreted by myself: CTA chest: No PE. Groundglass changes upper lobes bilaterally. External documents reviewed: N/A Test considered but not ordered:N/A ED course: Vital signs stable recent COVID diagnosis in the last week. Exertional dyspnea. Continued cough. Labs ordered along with D-dimer. EKG sinus rhythm no acute findings. White count stable at 7.27. electrolytes are normal except for potassium 3.3. D-dimer elevated at 0.67. Age-adjusted this is normal, however reports exertional dyspnea with COVID diagnosis. Will obtain a CTA of the chest for PE rule out. 2230: CT neck for PE groundglass change upper lobes. Consistent with her COVID history. She is not hypoxic. Her potassium was orally replaced. She is reassured with findings. Discussed adjunct therapies to help with her cough. Tobacco cessation discussed. Outpatient follow-up with her PCP. All questions were answered. Re-evaluation: stable Disposition discussed with patient/family/significant other: Patient and daughter Case discussed with consulting clinician: N/A This note was generated with CISSOID dictation software. It may contain incorrectwords, spelling, and punctuation that were not noted in checking the note beforesigning. Lab Data Attestation: I reviewed the patient's lab results. Labs: Laboratory Results - last 24 hr 11/13/23 20:01 WBC 7.2 RBC 4.18 L Hgb 12.7 Hct 35.9 L MCV 85.9 MCH 30.4 MCHC 35.4 RDW Std Deviation 42.5 RDW Coeff of Georgi 14.6 Plt Count 227 MPV 11.3 Immature Gran % (Auto) 0.800 Neut % (Auto) 71.2 H Lymph % (Auto) 17.2 L [place] % (Auto) 9.8 Eos % (Auto) 0.4 Baso % (Auto) 0.6 Absolute Neuts (auto) 5.1 Absolute Lymphs (auto) 1.24 Nucleated RBC % 0 PT 13.1 INR 1.0 APTT 33.5 D-Dimer Quant (PE/DVT) 0.67 H* Sodium 137 Potassium 3.3 L Chloride 107 Carbon Dioxide 26.0 Anion Gap 4 L BUN 15 Creatinine 0.93 Est GFR (MDRD) Af Amer 74 Est GFR (MDRD) Non-Af 62 BUN/Creatinine Ratio 16.1 Glucose 166 H Calcium 9.4 Radiography Diagnostic Testing: Clinical Impression(s) from Imaging Studies Chest CTA 11/13/23 21:00 IMPRESSION: undefined Discharge Plan Triage Chief Complaint: Shortness of Breath ED Provider: Hector Kerns Dx/Rx/DC Orders Clinical Impression: COVID-19 virus infection, Tobacco dependence, Cough, Diarrhea, Hypokalemia Instructions: Coronavirus Disease 2019 (COVID-19): Caring for Yourself or Others Prescriptions: No Action baclofen 10 mg tablet 10 mg PO DAILY cholecalciferol (vitamin D3) 50 mcg (2,000 unit) capsule 50 mcg PO DAILY levothyroxine 25 MCG tablet 25 mcg PO DAILY Patient Comments: THYROID diphenhydramine-acetaminophen [Tylenol PM Extra Strength] 1 EACH tablet 2 ea PO QHS Patient Comments: SLEEP AID vitamin E (dl, acetate) 400 UNITS capsule 400 units PO DAILY Patient Comments: SUPPLEMENT lisinopril 10 mg tablet 20 mg PO DAILY Patient Comments: BLOOD PRESSURE biotin 10 mg Tablet 10 mg PO DAILY magnesium 250 mg Tablet 250 mg PO DAILY multivitamin Tablet,Chewable 1 tab PO DAILY Primary Care Provider: Aneta Brown Referrals: Aneta Brown, PA [Primary Care Provider] - 1 Week Activity Restrictions/Additional Instructions: CT chest negative for PE. COVID changes noted. Labs was only significant for potassium 3.3 with oral replacement. Continue oral fluids at home, adjunct therapies as discussed for your cough symptoms. Stops your tobacco use. Follow-up with your doctor. Disposition Disposition: Home, Self Care What to do if you have Problems For any increased pain, shortness of breath, bleeding, nausea or vomiting, chestpain, or any unexpected problems, contact your Primary Care Provider. Call [facility] ([phone]) or report to the closest Emergency Room. Call 911 if necessary. 11/13/232231 <Electronically signed by Hector Sprague> Cosigner Signature (if applicable): CC: FARRAH Rivera ~ Signed [facility] Work Phone: [phone]) 325-915412-28-2023 NoteHNO ID: [id number] Author: Ivory Valadez RN Service: Care Management [...] Physician Primary Care Physician Name/Phone: Tu Canela [phone] Additional Information: Discharge written for patient to go home. Patient agreeable to discharge plan and denies needs. Son to transport. Bedside nurse updated. SOC sent to PCP. Follow up appointment scheduled with Lars for 11/15/23. SIGNATURE: Ivory Valadez RN PATIENT NAME: Florecita Healy DATE: November 08, 2023 TIME: 1:11 PM CONTACT #: [phone] NoteHNO ID: [id number] Author: Destiny Guy MD Service: Hospital Medicine Author Type: Physician Type: Plan of Care Filed: 11/07/2023 9:05 PM Note Text: Plan of care : Resistant HTN : will increase dose of hydralazine to 100 mg TID ADD coreg 6.25mg bidSelect [facility] [id number] NoteHNO ID: [id number] Author: Juan Pagan MD Service: Hospital Medicine Author Type: Physician Type: Progress Notes Filed: 11/07/2023 3:03 PM Note Text: DEPARTMENT OF HOSPITAL MEDICINE PROGRESS NOTE SERVICE DATE: 11/07/2023 SERVICE TIME: 2:55 PM Hospital Medicine/Primary Attending: Juan Pagan MD NIGHT AND WEEKEND COVERAGE: [employer] COVERAGE: Days: [phone], please page attending physician. Nights: [phone], please page [place] [facility] Night coverage pager [phone]. Subjective INTERVAL HPI: No acute events overnight. [...] Drains, and Airways Line Duration Peripheral 11/06/232127 [facility] Right Forearm 22 Gauge <1 day [...] lyrica # Hypothyroidism - (more content not included)...[facility] [id number] NoteHNO ID: [id number] Author: Ivory Valadez RN Service: Care Management Author Type: Registered Nurse Type: Care Mgt Initial Assessment Filed: 11/07/2023 12:34 PM Note Text: CARE MANAGEMENT: ASSESSMENT AND DISCHARGE PLAN SERVICE DATE: November 07, 2023 SERVICE TIME: 12:32 PM PCP: Tu Canela MD - Confirmed. Primary Contact: Extended Emergency Contact Information Primary Emergency Contact: Sae Healy Relation: Grandchild Admission Status: Observation Insurance Provider: [facility] Discharge Planning requested by: Per Department Practice Potential Transition Plans Home Advance Directives Current Advance Directive: None Taxation Consultant Attempted to Assist with AD Completion: Yes Action: Patient Unwilling Current Living Arrangements and Support Lives with: Alone Type of Residence: Private Residence (Apartment or Condo) Does the patient have to climb stairs at home?: stairs within the home Support: Children, Family members How do you manage to accomplish the following: Independent: Ambulation;Bathe/Shower;Dress;Meals/Meal Prep;Going to the bathroom;Medication Management;Transportation to appointments/community Current Services/Equipment Current Post-Acute Service(s): None Discharge Planning Patient Goal(s): Be able to go home, General wellness [place] of Choice Explained: [place] of Choice Given: No Reason Not Given: [...] 07, 2023 TIME: 12:32 PM CONTACT #: [phone] History of Present illness Narrative* Eliseo Michele RN - 10/24/2023 11:40 AM EST [facility] Telephonic Outreach Provider Action/FYI #2 attempt to contact patient. Contacted for: Routine Telephonic Outreach Contact made with patient: No, left message. Eliseo Michele RN October 24, 2023 11:45 AM [facility] History of Present illness Narrative* Eliseo Michele RN - 10/23/2023 1:24 PM EST [facility] Telephonic Outreach Provider Action/FYI #1 attempt to contact patient. Contacted for: Routine Telephonic Outreach Contact made with patient: No, left message. Eliseo Michele RN October 23, 2023 1:32 PM [facility] History of Present illness Narrative* Nevin FajardoCHANDLER.COUNTY SHERIFF - 09/25/2023 9:56 AM EST Chief Complaint Patient presents with: Established Patient [...] cramping. Currently therapy:Observation No new concerns today. Appetite:Good. Wt. up. Energy level:It's good. Denies fevers or recent illness. 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 Oncotype test:Recurrence score 15 indicating 10% 10 yr risk. Did not recommend adjuvant chemotherapy based on Oncotype testing. - No concerning findings on exam in regards to breast cancer. - Pt. did not tolerate 2 AI's or tamoxifen. Feels much better after stopping aromasin. Declined anyfurther therapy. - Reviewed mammogram with pt. - [...] as necessary for today's visit. Nevin Fajardo APRN.COUNT[facility] SHERIFF [facility] History of Present illness Narrative* Eliseo Michele RN - 09/24/2023 11:12 AM EST [facility] Telephonic Outreach Provider Action/FYI #2 attempt to contact patient. Contacted for: Routine Telephonic Outreach Contact made with patient: No, left message. Eliseo Michele RN September 24, 2023 11:19 AM [facility] History of Present illness Narrative* Eliseo Michele RN - 08/17/2023 3:44 PM EDT [facility] Telephonic Outreach Provider Action/FYI #1 attempt to contact patient. Contacted for: Routine Telephonic Outreach Contact made with patient: No, left message. Eliseo Michele RN August 17, 2023 3:45 PM [facility] History of Present illness Narrative* Aneta Brown PA-C - 07/31/2023 10:00 AM EDT 82 year old female with c/o BP [...] breast (HCC) Chronic obstructive pulmonary disease (COPD) ([facility]) Chronic pain 06/03/2012 sees pain management. Diarrhea 11/06/2022 Hyperlipidemia 06/03/2012 Hypertension 06/03/2012 Nausea & vomiting 11/06/[address] Dawn Sepsis ([facility]) 11/05/2022 Snoring PAST SURGICAL HISTORY Procedure Laterality [...] normal shape. Lungs are clear to all lynch with good air exchange through out. HRRR without murmur or gallop. No lifts, heaves, or rubs. Extrem: no clubbing or cyanosis. Edema: 1/4+ bilaterally. Has purplishsoft tissue lumps which followed flu shot last year, admitted for cellulitis. Extremities are warm and pink with prompt capillaryrefill. ASSESSMENT/PLAN: 1. Encounter for immunization - ICD9: [...] ICD10: C50.412, Z17.0 Follows with Nevin Fajardo CNP F/u in 6 months Aneta Brown PA-C [facility] History of Present illness Narrative* Eliseo Michele RN - 07/24/2023 11:12 AM EDT [facility] Telephonic Outreach Provider Action/FYI #2 attempt to contact patient. Contacted for: Routine Telephonic Outreach Contact made with patient: No, left message. Eliseo Michele RN July 24, 2023 11:13 AM documented in this [facility]08-29-2023 History of Present illness Narrative* Jannie Proctor DO - 07/10/2023 11:10 AM EDT Images from the original note were not included. [facility] [place] DEPARTMENT OF VASCULAR SURGERY OUTPATIENT VISIT DATE July 20, 2023 OUTPATIENT VISIT TYPE ESTABLISHED SERVICE DATE: 07/20/2023 SERVICE TIME: 3:53 PM PRIMARY CARE PHYSICIAN: Tu Canela MD HISTORY OF PRESENT ILLNESS: Ms. Healy is a 82 year old female who presents today for a vascular surgery follow-up visit after her EVLT. She notices improvement on right. She still having symptoms onleft. PAST MEDICAL HISTORY Diagnosis Date Abnormal ultrasound of breast 12/02/15 Left Breast cancer of upper-outer quadrant of left female breast (HCC) Chronic obstructive pulmonary disease (COPD) ([facility]) Chronic pain 06/03/2012 sees pain management. Diarrhea 11/06/2022 Hyperlipidemia 06/03/2012 Hypertension 06/03/2012 Nausea & vomiting 11/06/2022 Osteopenia [address] Pulmonary nod[address] Dawn Sepsis ([facility]) 11/05/2022 Snoring PAST SURGICAL HISTORY Procedure Laterality [...] BP Cuff Size: Regular Adult) Pulse 80 [id number]% Gen- no distress Ext- healed venous access [...] 2023 TIME: 3:53 PM documented in [address] [facility] [facility]08-22-2023 Instructions* Patient Instructions* Rosie Syed APRN.CNP - 07/03/2023 10:09 AM EDT Increase the amlodipine to 10 mg. Recheck in 1 month. [address] [facility]08-22-2023 History of Present illness Narrative* Rosie Syed APRN.CNP - 07/03/2023 9:38 AM EDT This is a 82 year old female [...] Osteopenia Psoriasis Pulmonary nodule Dr. Dawn Sepsis ([facility]) 11/05/2022 Snoring PAST SURGICAL HISTORY Procedure Laterality [...] daily. Take with 5 mg dose for totaldaily dose of 7.5 mg daily. metoprolol succinate [...] as needed for worsening/no improvement. Rosie Syed APRN.COUNTY SHERIFF documented in this encounterWilson [facility]08-15-2023 History of Present illness Narrative* Eliseo Michele RN - 06/26/2023 12:46 PM EDT [facility] Telephonic Outreach Provider Action/FYI #2 attempt to contact patient. Contacted for: Routine Telephonic Outreach Contact made with patient: No, left message. Eliseo Michele RN June 26, 2023 12:46 PM documented in this encounterWilson [address] [facility]08-14-2023 History of Present illness Narrative* Eliseo Michele RN - 06/25/2023 1:55 PM EDT [facility] Telephonic Outreach Provider Action/FYI #1 attempt to contact patient. Contacted for: Routine Telephonic Outreach Contact made with patient: No, left message. Eliseo Michele RN June 25, 2023 1:56 PM documented in this [address]Wilson [address] [facility]07-18-2023 History of Present illness Narrative* Fredi Pierce MD - 05/29/2023 10:41 AM EDT Objective: Saw the patient back on 03/13/2023. She had an incisional hernia just above her pubic boneat that time. Patient states that the area [...] for her. I have instructed her that ifthis area becomes larger or becomes more painful we will have to do an incisional hernia repair on her but at the present time I think it is okay for us to observe her. documented in this [facility]07-18-2023 Instructions* Patient Instructions* Rosie Syed APRN.CNP - 05/29/2023 9:50 AM EDT Add amlodipine 2.5 mg to the 5 mg dose. Go ahead and decrease the metoprolol to 1/2 pill daily. Recheck in 1 month. documented in [address] [facility] [facility]07-18-2023 History of Present illness Narrative* Rosie Syed APRN.CNP - 05/29/2023 9:28 AM EDT This is a 82 year old female [...] breast (HCC) Chronic obstructive pulmonary disease (COPD) ([facility]) Chronic pain 06/03/2012 sees pain management. Diarrhea 11/06/2022 Hyperlipidemia 06/03/2012 Hypertension 06/03/2012 Nausea & vomiting 11/06/2022 Osteopenia [address] Pulmonary nodule [address] Dawn Sepsis ([facility]) 11/05/2022 Snoring PAST SURGICAL HISTORY Procedure Laterality [...] as needed for worsening/no improvement. Rosie Syed APRN.COUNTY SHERIFF documented in this encounterWilson [address] [facility]07-18-2023 Nurse Note* Janey Tamayo LPN - 05/29/2023 9:28 AM EDT Pt brought in home BP cuff. Reading in office per home wrist cuff was 138/74. documented in this [address] [facility]07-12-2023 History of Present illness Narrative* Eliseo Michele, RN - 05/23/2023 10:23 AM EDT [facility] Telephonic Outreach Provider Action/FYI #2 attempt to contact patient. Contacted for: Routine Telephonic Outreach Contact made with patient: No, left message. Eliseo Michele RN May 23, 2023 10:25 AM documented in this encounterWilson [address] [facility]07-11-2023 History of Present illness Narrative* Eliseo Michele RN - 05/22/2023 11:56 AM EDT [facility] Telephonic Outreach Provider Action/FYI #1 attempt to contact patient. Contacted for: Routine Telephonic Outreach Contact made with patient: No, left message. Eliseo Michele RN May 22, 2023 11:57 AM documented in this [address]Wilson [address] [facility]06-27-2023 Miscellaneous Notes* Telephone Encounter - Yue Eric - 05/08/2023 4:24 PM EDT Spoke with patient regarding procedure Sunday, She would like calming medication sent to the pharmacy ( [facility]). She son will drive her. She denies any further questions. documented in this [address]Wilson [address] Hospital06-27-2023 Instructions* Patient Instructions* Rosmery Acharya RN - 05/08/2023 1:06 PM EDT WOUND CARE INSTRUCTIONS- Florecita Healy Wound location: Right top of foot Continue wearing tubi-market research intern size E to the leg every day. Apply your betamethasone cream twice a day to rashy area right lower leg FOR COMPRESSION WRAPS: PORSHA bandage. 4 PORSHA to the foot from toes to the ankle, 6 PORSHA to the leg from the ankle to [...] help control edema. You may remove the PORSHA at night for a rest but please put the PORSHA bandage on in the morning before your [...] following changes to the Wound Center at [phone] or go to the Emergency Department: Fever [...] are seeing patients during the day, so wewill return your call within a 24-48 hr period in the order your call was received. There is not anon-call provider assigned to the wound center. If you have an emergency that needs to be addressed,please go the Urgent Care or the Emergency [...] phone number provided: . Dr. Rc Rodriguez MD/tr/rogelio documented in this encounterWilson [address] Hospital06-27-2023 Nurse Note* Rosmery Acharya RN - 05/08/2023 1:05 PM EDT Nursing Documentation Pertinent Medical History: HTN, CKD, [...] MD and good until June 2023. Special Instructions: N/A Anticoagulant [...] N/A COMPRESSION: Single layer of size E tubi-market research intern to right leg SPECIAL NEEDS: Coordination of care - N/A Emotional support N/A OR set-up N/A Horse Stud Worker N/A Incontinence needs N/A DISCHARGED in stable [...] the wound(s). Visual demonstration on how to applythe dressing with teach back method. Signs & [...] Center Rosmery Acharya RN/rogelio documented in this [address]Wilson [address] [facility]06-27-2023 History of Present illness Narrative* Rc Rodriguez MD - 05/08/2023 12:57 PM EDT INFECTIOUS DISEASE WOUND CENTER NOTE Patient Name: [...] Rc Rodriguez MD Pager: documented in this encounterWilson [address] Hospital06-23-2023 Miscellaneous Notes* Telephone Encounter - Zenaida Reynolds LPN - 05/04/2023 11:10 AM EDT Pt. Notified of results , verified next office visit with pt. Pt. Voiced understanding. Zenaida Reynolds LPN * Telephone Encounter - Nevin Fajardo APRN.CNP - 05/04/2023 10:53 AM EDT Please inform pt. that her mammogram looks good. Follow up as scheduled. Thank you. Nevin Fajardo APRN.CNP documented in this encounterWilson [address] Hospital06-23-2023 Miscellaneous Notes* Letter - Mammography Coordinator - 05/04/2023 10:34 AM EDT May 07, 2023 PID: [id number] Florecita Healy [address] [place] [id number] Dear Ms. Healy, We are pleased to [...] report will be kept on file at [facility] as part of your permanent medical record and are available for your continuing care. Thank you for allowing us to help in meeting your health care needs. Sincerely, Dr. Kelley Interpreting Radiologist [facility] (Normal over 40) documented in this encounterWilson [address] Hospital06-21-2023 Instructions* Patient Instructions* Rosie Syed APRN.CNP - 05/02/2023 10:12 AM EDT Increase the amlodipine to 5 mg daily. 2. Recheck in 3-4 weeks. documented in [address] [facility]06-21-2023 History of Present illness Narrative* Rosie Syed APRN.CNP - 05/02/2023 10:01 AM EDT This is a 82 year old female [...] am a smoker so I do have SOB.. Edema: Yes, but reports not worse since [...] Osteopenia Psoriasis Pulmonary nodule Dr. Dawn Sepsis ([facility]) 11/05/2022 Snoring PAST SURGICAL HISTORY Procedure Laterality [...] agrees with the plan. documented in this [address] [facility]06-05-2023 History of Present illness Narrative* Guerda Francisco RN - 04/16/2023 10:03 AM EDT [facility] Telephonic Outreach Provider Action/FYI No new [...] daily weight at home? No Based on second vp hr assessment, the following disposition is advised: No symptoms or symptoms present, not severe. Routed to: No Action Needed LINDA Education Provided this Outreach: No Guerda Francisco RN April 16, 2023 10:13 AM documented in this [address] [facility]05-11-2023 History of Present illness Narrative* Nevin FajardoCHANDLER.COUNTY SHERIFF - 03/22/2023 2:08 PM EDT Chief Complaint Patient presents with: 10 month [...] was admitted for sepsis 2021. Discharged 2022. Appetite:I just don't eat that much. Wt. down 6# since May 2022. Energy level:I have good energy. 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 Oncotype test:Recurrence score 15 indicating 10% 10 yr risk. Did not recommend adjuvant chemotherapy based on Oncotype testing. - No concerning findings on exam in regards to breast cancer. - Pt. did not tolerate 2 AI's or tamoxifen. Feels much better after stopping aromasin. Declined anyfurther therapy. - Follow up with pain mgmt./PCP/DERM [...] visit. Nevin Fajardo APRN.KAITLYN documented in this encounterWilson [address] [facility]05-08-2023 History of Present illness Narrative* Guerda Francisco RN - 03/19/2023 11:49 AM EDT [facility] Telephonic Outreach Provider Roberta/SILVIA Left VM. I also want to remind you about Healthy at Home. You may call [phone] seven (7) days a week from 8am-8pm for any need which arises. This includes weekends and holidays. A registered nurse will answer questions, help schedule appointments, place refill orders and ensure you receive the care necessary. Contacted for: Routine Telephonic Outreach Contact made with patient: No, left message. Guerda Francisco RN March 19, 2023 11:53 AM documented in this [address] [facility]05-02-2023 History of Present illness Narrative* Fredi Pierce MD - 03/13/2023 1:14 PM EDT HISTORY AND PHYSICAL Florecita Healy 1940 REFERRING PHYSICIAN: Tu Canela MD CHIEF COMPLAINT: Consult (Hernia/) HPI: Florecita is a 82 year old female with a complaint of a bulge and discomfort in her prior lowermidline incision. The patient notes discomfort in this [...] Osteopenia Psoriasis Pulmonary nodule Dr. Dawn Sepsis ([facility]) 11/05/2022 Snoring PAST SURGICAL HISTORY Procedure Laterality [...] mouth. 1 tablet by mouth daily. (Patient nottaking: No sig reported) MAGNESIUM ORAL Take 1 [...] entered by the nurse and reviewed by ny Nursing Notes: Shobha Arce 03/13/2023 10:52 AM [...] nourished, well hydrated in no acute distress. Thepatient is oriented to time, place, and person. VITALS: Blood pressure 140/86, pulse 79, temperature 36.2 C (97.1 F), temperature source Temporal, height 166.4 cm (5' 5.5), weight 68.6 kg (151 lb 3.2 oz), SpO2 98 %. Body mass index is 24.78 kg/m . HEENT: Normal cephalic, ataumatic, pupils are equally round, sclera are anicteric, mucous membranesare moist, oropharynx is clear. Neck has no masses, asymmetry or lymphadenopathy. Thyroid is unremarkable. Respiratory: Clear to auscultation and percussion. Normal respiratory excursion and pattern. Cardiac: Examination is regular rate and rhythm. Abdominal exam: Soft, nontender, with no palpable masses. No hepatosplenomegaly. A small incisionalhernia Rectal exam: exam deferred Extremities: no clubbing, [...] follow-up with me in 2 months. Fredi Pierce III, MD documented in this encounterWilson [address] Hospital05-02-2023 Nurse Note* Shobha Arce - 03/13/2023 10:48 AM EDT REVIEW OF SYSTEMS: General: The patient denies [...] Colonoscopy: 05/30/2022 Shobha Arce documented in this encounterWilson [address] Hospital04-24-2023 Miscellaneous Notes* Telephone Encounter - Sheron French Ma - 03/05/2023 9:42 AM EDT Patient was made aware of the results. Patient verbalizes understanding. Sheron French Ma * Telephone Encounter - Tu Canela MD - 03/05/2023 8:15 AM EDT Retry again this am. Cutlure may show uti. Finish antibiotic recheck ua in two weeks since showed blood. * Telephone Encounter - Adrianna Valenzuela LPN - 03/02/2023 3:35 PM EDT Left message for patient to call office. * Telephone Encounter - Tu Canela MD - 03/02/2023 3:14 PM EDT Urine shows what could be a uti. Culture is pending. I am going to call in antibiotic until it comes back so she is not waiting over the weekend documented in this [facility] [facility]04-21-2023 History of Present illness Narrative* Tu Canela MD - 03/02/2023 10:07 AM EDT Patient presents with: Follow Up HPI: Patient [...] vascular. States that is wearing her tubi manager strategic when at home but can't wear them [...] Abs Lymph 1.00 - 4.00 k/uL 1.00 [place]% % 9.3 Abs [place] <0.87 k/uL 0.50 E[place]% % 0.6 Abs [...] mouth. 1 tablet by mouth daily. (Patient nottaking: No sig reported) MAGNESIUM ORAL Take 1 [...] of upper-outer quadrant of left female breast ([facility]) Chronic obstructive pulmonary disease (COPD) ([facility]) Chronic pain 06/03/2012 sees pain management. Diarrhea 11/06/2022 Hyperlipidemia 06/03/2012 Hypertension 06/03/2012 Nausea & vomiting 11/06/2022 Osteopenia P[address] Pulmonary nodule Dr[address] Dawn Sepsis ([facility]) 11/05/2022 Snoring PAST SURGICAL HISTORY Procedure Laterality [...] one month for bp check with Bernard or Rosie. documented in this [facility]Wilson [address] [facility]04-18-2023 Miscellaneous Notes* Telephone Encounter - Yue Reyes - 02/27/2023 1:34 PM EDT PA submitted on line Currently pending review Called patient and left Vm with update Will inform patient of determination once received. * Telephone Encounter - Yue Reyes - 02/23/2023 12:39 PM EDT Patient calling to request to do prior authorization for her compression stockings Patient called and spoke with her insurance company and the typically do not cover the compression,but could attempt to do a PA Called [employer] unable to process PA as they are having system issues. Attempted online request and system unavailable as well Will have to attempt at a later time Patient informed, will contact with an update once received documented in this [facility]Wilson [address] [facility]04-07-2023 Miscellaneous Notes* Telephone Encounter - CURLY Hassan - 02/16/2023 8:29 AM EDT TC to patient who verbalizes understanding and has no further questions at this time. CURLY Hassan * Telephone Encounter - Tu Canela MD - 02/15/2023 5:09 PM EDT Labs ordered. * Telephone Encounter - Guerda Francisco RN - 02/15/2023 2:30 PM EDT During CDM outreach pt asking if she needs any lab work, like a TSH level,drawn prior to OV 02/21/23? Please have office clinical staff contact patient directly with physician response. documented in this encounterWilson [address] [facility]04-06-2023 Miscellaneous Notes* Telephone Encounter - Guerda Francisco RN - 02/15/2023 2:36 PM EDT Requestor:Patient Patient is identified by name and birthdate: Yes Patient reminded to check with pharmacy in 24-48 hours: Yes Prescriber Verified: Yes Pharmacy benefits have been verified: No Pharmacy updated in [facility]: Yes Is medication controlled substance: No Medication [...] by mouth once daily. documented in this encounterWilson [facility]04-06-2023 Miscellaneous Notes* Telephone Encounter - Guerda Francisco RN - 02/15/2023 2:33 PM EDT Requestor:Patient Patient is identified by name and [...] every Sunday and Sunday documented in this encounterWilson [address] [facility]04-06-2023 History of Present illness Narrative* Guerda Francisco RN - 02/15/2023 11:41 AM EDT INSIGHT CDM TELEPHONIC OUTREACH Provider Action/FYI: Introduced self as new PCC Health goal, fall risk and ADL assessments completed. Encouraged to discuss at upcoming OV with PCP that she thinks her bladder has dropped, has frequenturination and has a need to void if bladder area is pressed on-wears panty liner since July 2022 when started on metoprolol. Lump in center of abdomen by bladder. Has been checked for hernia. Denies pain or burning with urination. No odor. Appointments for Next 60 Days Date Time Provider Location Dept Phone 03/02/2023 10:00 AM TU CANELA [facility] [phone] States she needs refill of lisinopril and levothyroxine before OV. Will pend in separate refill encounters. Wondering if she needs any labs drawn before OV 02/21/23? Will send telephone encounter to PCP to advise. I also want to remind you about Healthy at Home. You may call [phone] seven (7) days a week from 8am-8pm [...] like to speak with a social work steam fitter supervisor maintenance to help give you support for any [...] work with you to ensure that we arekeeping your medical condition(s) well-controlled and to keep you healthy and out of the doctor's office or hospital. It s also not too late for me to sign you up for automated weekly questionnaires through [employer]. This is an easy way for us [...] the week as today in the Track PtOutreach and End outreach. documented in this [facility]04-04-2023 History of Present illness Narrative* Jannie Proctor DO - 02/13/2023 10:33 AM EDT This office note has been dictated. Jannie Proctor DO * Jannie Proctor DO - 02/13/2023 12:00 AM EDT NAME: FLORECITA HEALY [facility] NO: [id number] DATE OF SERVICE: 02/13/2023 Subjective: Ms. Healy [...] no distress. She does have some cyanosis, purplishdiscoloration of her right foot. She has a little slight on the left. Reviewed her venous reflux testing and PVRs. She had PVRs today, which were normal. Her ANA on the right was 1.08, on the left was 1.1. She had venous reflux testing in [place] in April and she had bilateral GSV [...] disease; however, it may help with some ofthe symptoms and some of the discoloration that she is experiencing, however, not all of it. She isagreeable to this. We will have the office arrange and schedule. Jannie Proctor D.O. KB/[id number] Audio #: [id number] Date Dictated: 02/13/2023 08:28:09 Date Typed: 02/19/2023 07:54:47 Date Revised: documented in this encounterWilson [address] Hospital03-09-2023 Miscellaneous Notes* Addendum Note - Tu Canela MD - 01/18/2023 4:54 PM ESTAddended by: TU CANELA on: 01/18/2023 04:54 PM Modules accepted: Orders documented in this encounterWilson [facility] Hospital03-09-2023 History of Present illness Narrative* Tu Canela MD - 01/18/2023 4:53 PM EST Let her know rx sent * Kendra Warner Population Health Navigator - 01/18/2023 2:55 PM EST POPULATION HEALTH NAVIGATION OUTREACH Action/ I spoke to patient and scheduled PCP follow up for February. Dr. Canela: Patient asking if you would refill her Baclofen for her, she stated she is no longer going to pain management and is no longer taking her Lyrica or Hydrocodone. She stated she does not wantto go back to pain management for a refill, informed her I would ask if this is something you wouldrefill. Patient Identified by Name and : YES, via phone Outreach Outcome/Action Spoke to patient / parent / legal guardian: Patient scheduled Did you use a PCP flex slot to schedule this appointment? No Reason for Outreach [facility] Payer: Payor: [email or web address] MEDICARE / Plan: [employer] PLUS / Product Type: HMO / Care Gap Reviewed:: Follow-up appointment Reminder: Reminder note to check Health Maintenance for items below Health Maintenance items due: BP CONTROLLED (<130/80) Never done DTAP,TDAP,TD(2 - Tdap) due on 09/03/2022 ADVANCE DIRECTIVE DISCUSSION due on 11/12/2022 DEPRESSION ASSESSMENT Never done Navigation Signature: Kendra Warner [facility] Navigator January 18, 2023 2:56 PM Electronically signed by Kendra Warner [facility] Navigator at 01/18/2023 3:00 PM EST * Linette Hooper RN - 01/18/2023 8:49 AM EST [facility] CDM Enrollment Provider Action/FYI: H@H Pt dos not log into Cell[employer]. Pt needs PCP follow up when available. Sent to [facility] In addition to what I have discussed, I am providing you with a phone number that gives you one call access to nursing, appointments, and other valuable resources. I am also sending this information to your STATS Groupt. Please take the time to write this number down . This number is available 7 days a week from 8am-8pm. Patient referred by: [facility] Caren Contact made with patient: Yes - Patient identified by name and . Discussed care with patient Kev this is Linette Hooper RN and I am calling from Tu Canela MD office at the [facility]. I am a RN Project Crew Worker with our [facility] Chronic Disease Management program. [...] few questions once a week through your [employer] account. It will automatically show up for [...] program. No, reason: I don't like using [employer] Closing: Patient accepts telephonic outreach. LINDA Education [...] from today s date) documented in this [facility]Wilson [facility]03-07-2023 History of Present illness Narrative* Rc Rodriguez MD - 01/16/2023 1:25 PM EST INFECTIOUS DISEASE WOUND CENTER NOTE Patient Name: [...] mouth. 1 tablet by mouth daily. (Patient nottaking: Reported on 01/16/2023) MAGNESIUM ORAL Take 1 [...] Rc Rodriguez MD Pager: documented in this encounterWilson [facility]03-07-2023 Instructions* Patient Instructions* Parul Patterson RN - 01/16/2023 1:17 PM EST WOUND CARE INSTRUCTIONS- Florecita Healy Wound location: Right top of foot -You [...] and water. Pat dry with clean, separate towelor paper towel. -Soak a gauze with Vashe wound wash, place it on the wound and let it sit for 5- 10 minutes. Wipe off the excess and pat dry. - Cover with a single layer of Adaptic (mesh layer), cut to slightly overlap the wound edges. - Secure dressing with 4x4 gauze, ABD pad, conform guaze wrap, & tape - Change your dressing DAILY. FOR COMPRESSION WRAPS: PORSHA bandage. 4 PORSHA to the foot from toes to the ankle, 6 PORSHA to the leg from the ankle to [...] help control edema. You may remove the PORSHA at night for a rest but please put the PORSHA bandage on in the morning before your [...] following changes to the Wound Center at [phone] or go to the Emergency Department: Fever [...] are seeing patients during the day, so wewill return your call within a 24-48 hr period in the order your call was received. There is not anon-call provider assigned to the wound center. If you have an emergency that needs to be addressed,please go the Urgent Care or the Emergency [...] . Rc Rodriguez MD/JACKSON/SUYAPA documented in [facility] Nurse Note* Parul Patterson RN - 01/16/2023 1:14 PM EST Nursing Documentation Pertinent Medical History: HTN, CKD, [...] COMPRESSION: SPECIAL NEEDS: Coordination of care - [facility] faxed for supplies Emotional support N/A OR set-up N/A Horse Stud Worker N/A Incontinence needs N/A DISCHARGED in stable [...] the wound(s). Visual demonstration on how to applythe dressing with teach back method. Signs & [...] of medication to help control edema. Parul Patterson RN/JACKSON ____ UNIVERSAL PROTOCOL / SAFETY CHECKLIST - N/A [...] to ANY of questions 5-9, consult the [facility] Parul Patterson RN/ZCarlos documented in this encounterWilson [address] [facility]02-28-[facility]23 History of Present illness Narrative* Jannie Proctor DO - 01/09/2023 1:13 PM EST Images from the original note were not included. [facility] [place] DEPARTMENT OF VASCULAR SURGERY OUTPATIENT VISIT DATE January 09, 2023 OUTPATIENT VISIT TYPE CONSULTATION SERVICE DATE: 01/09/2023 SERVICE TIME: 1:13 PM PRIMARY CARE PHYSICIAN: Tu Canela MD REFERRING PROVIDER: Jannie Proctor [address] [facility] [id number] Consult requested for an opinion regarding the [...] Dr. Rodriguez at wound center and Dr. Glenroy posadaatology forthe skin lesions. She states she has had [...] breast (HCC) Chronic obstructive pulmonary disease (COPD) ([facility]) Chronic pain 06/03/2012 sees pain management. Diarrhea 11/06/2022 Hyperlipidemia 06/03/2012 Hypertension 06/03/2012 Nausea & vomiting 11/06/2022 Osteopenia Psoriasis Pulmonary nodule Dr. Dawn Sepsis ([facility]) 11/05/2022 Snoring PAST SURGICAL HISTORY Procedure Laterality [...] 2023 TIME: 1:13 PM documented in [address] [facility]02-07-2023 Instructions* Patient Instructions* Britt Ordoñez RN - 12/19/2022 3:00 PM [...] the wound and let it sit for 5- 10 minutes. Wipe off the excess and pat dry. - Apply a cut small piece of Mesalt ribbon (white packing strip) to the wound base. - Cover with Adaptic (clear mesh layer). Cut to cover the wound. - Secure dressing with 4x4, ABD gauze, conform guaze wrap and tape - Change your dressing daily. FOR COMPRESSION WRAPS: PORSHA bandage. 4 PORSHA to the foot from toes to the ankle, 6 PORSHA to the leg from the ankle to [...] help control edema. You may remove the PORSHA at night for a rest but please put the PORSHA bandage on in the morning before your [...] following changes to the Wound Center at [phone] or go to the Emergency Department: Fever or chills Increased drainage Green or yellow drainage Foul odor Increased pain Hardness around the wound Redness, warmth or swelling of the surrounding tissue Color change to the wound When contacting the wound center at the ([phone]): Leave a message that includes your full [...] Dr Rodriguez in 4 weeks at the [facility]. No need for antibiotics at this time. Follow up with Dr Proctor, vascular doctor, as scheduled 01/09/23 Please follow up with your PCP to have your Blood Pressure rechecked Continue aggressive nutritional support to assist wound healing Wound care supplies were ordered through [facility]. They will attempt to call you once. If you miss thecall, or do not hear from them within 1-2 days, please call the phone number provided: . [facility] [phone] Rc Rodriguez MD/trenton/suyapa documented in this encounterWilson [facility] Hospital02-07-2023 History of Present illness Narrative* Rc Rodriguez MD - 12/19/2022 2:57 PM EST INFECTIOUS DISEASE WOUND CENTER NOTE Patient Name: [...] surgical options and evaluation for surgery at [place] which is the patient's choice Discussed with [...] support healing. The patient tolerated the procedure wellwithout complications. Hemostasis was achieved with direct pressure. [...] well. She denies any worsening in her condition.She has completed antibiotics without any problems. Remained [...] present. No purulent drainage or surrounding cellulitis atthis time Lab data: reviewed WBC (k/uL) Date [...] Rc Rodriguez MD Pager: documented in this encounterWilson [address] Hospital02-07-2023 Nurse Note* Britt Ordoñez RN - 12/19/2022 2:35 PM EST Nursing Documentation Pertinent Medical History: HTN, CKD, [...] MD and nolan until June 2023. Special Instructions (for example, [...] tape Other: post op shoe COMPRESSION: 4 PORSHA to the foot from toes to the ankle, 6 PORSHA to the leg from the ankle to the knee. SPECIAL NEEDS: Coordination of care [facility] faxed for supplies Emotional support N/A OR set-up N/A Horse Stud Worker N/A Incontinence needs N/A DISCHARGED in stable condition to: home ambulatory with son Global surgical period dates if applicable: N/A PLAN/ORDERS: Return to the Wound Center to see Dr Rodriguez in 4 weeks at the [facility]. No need for antibiotics at this time. Follow up with Dr Proctor, vascular doctor, as scheduled 01/09/23 Please follow up with your PCP to have your Blood Pressure rechecked Continue aggressive nutritional support to assist wound healing Wound care supplies were ordered through [facility]. They will attempt to call you once. If you miss thecall, or do not hear from them within 1-2 days, please call the phone number provided: . [facility] [phone] EDUCATION: The patient/family was instructed how to cleanse the wound(s). Visual demonstration on how to applythe dressing with teach back method. Signs & [...] Use of medication to help control edema. ____ UNIVERSAL PROTOCOL / SAFETY CHECKLIST Procedure to be Performed: [employer] Debridement of right foot wounds. Sign In: 5570 A Moment of CARE was completed. Personnel directly involved with the procedure wore the appropriate PPE (Personal Protective Equipment). Patient/Surrogate Stated/Verified: PATIENT VERIFIED(optional for EMERGENT procedures): Patient name, Date of , Relevant allergies, and The intended procedure Time Out Communication: 2807 Intended patient and procedure match the source documents. Consent documented and matches the intended procedure. Sign Out: 5927 SIGN OUT (optional for EMERGENT procedures): No [...] Center Britt Ordoñez RN/suyapa documented in this encounterWilson [address] Hospital02-01-2023 Miscellaneous Notes* Telephone Encounter - Isis Sena - 12/13/2022 2:29 PM EST Spoke with patient and explained message in detail that ultrasound on 12/15/22 was no longer needed. Canceled ultrasound. Patient verbalized understanding. Isis Sena * Telephone Encounter - Tu Canela MD - 12/13/2022 1:32 PM EST She had been scheduled for an upcoming renal ultrasound to look at possible kidney cysts from six months ago. They did it while she was in the hospital recently so she does not need it repeated. We can cancel it. documented in this encounterWilson [address] Hospital01-05-2023 History of Present illness Narrative* Zenia Richter RN - 11/16/2022 3:38 PM EST TRANSITIONAL CARE MANAGEMENT (TCM) COMMUNITY MONITORING PROGRAM Provider Action/FYI: Pt states she is feeling better Denies CP, SOB, N/V, fever or chills Sister will pickle processor knee scooter today after 5 at DDM Declines PCP follow up Denies questions or concerns at this time Apply bacitracin to lubricate skin and some of the skin will peel. Clean and dry and use postop shoe for weightbearing as tolerated and the knee walker. MATY 12/11 SUMMARY: Pt discharged from [facility] on 11/15/22. Admitted for: Cellulitis of right lower leg Contact made with patient: Yes Hi my name is Zenia Richter RN and I am calling from the [facility] on behalf of your PCP, Tu [...] like to speak with a social work steam fitter supervisor maintenance to help give you support for any [...] provider to ensure you have safely transitioned home.If you are agreeable, I will send your request to a patient scheduler who will contact and assist you with that appointment. This will give you an opportunity to ask any questions or address any concerns youmay have with your PCP. Inform the patient [...] unless instructed to do so. For any non- emergency symptoms, call your Doctor s office to get instructions on how to manage (we might recommend a telephone or virtualvisit). For emergency symptoms, proceed to Emergency Department as usual but inform them of cough and fever symptoms GAL if present (or call on the way if possible). LINDA Education Ordered -: No Zenia Richter RN, BSN Transitional Project Crew Worker [facility] * Zenia Rihcter RN - 11/16/2022 8:46 AM EST TCM Home Visit Referral Source of Stratification: [facility] Admission Status: Discharged Readmission Risk Score: 19 RALPH Score: 14 Patient meets program referral criteria: No Patient does not qualify for High Risk TCM Home Visit program due to: Discharged home, does not meet program criteria Zenia Richter RN November 16, 2022 8:46 AM TRANSITIONAL CARE MANAGEMENT (TCM) COMMUNITY MONITORING PROGRAM Provider Action/FYI: Attempted initial outreach to pt for hospital discharge. No answer, left VM to return my call. Willattempt to outreach to pt again later today or tomorrrow if no return call from pt. Apply bacitracin to lubricate skin and some of the skin will peel. Clean and dry and use postop shoe for weightbearing as tolerated and the knee walker. MATY 12/11 SUMMARY: Pt discharged from [facility] on 11/15/22. Admitted for: Cellulitis of right lower leg Contact made with patient: No - next outreach attempt will be on next day Outreach ended documented in this encounter[address] Hospital12-26-2022 History of Past illness Narrative* Problem [...] Overview: Added automatically from request for surgery [id number] Colon cancer screening 12/07/2016 7 Chronic midline [...] pain management for back injury, neck arthritis- [facility] documented as of this encounter (statuses as of 11/17/2022) [facility] History of Past illness Narrative* Problem [...] Overview: Added automatically from request for surgery [id number] Colon cancer screening 12/07/2016 7 Chronic midline [...] pain management for back injury, neck arthritis- [facility] documented as of this encounter (statuses as of 12/13/2022) [facility] History of Past illness Narrative* Problem [...] Overview: Added automatically from request for surgery [id number] Colon cancer screening 12/07/2016 7 Chronic midline [...] pain management for back injury, neck arthritis- [facility] documented as of this encounter (statuses as of 12/20/2022) [facility] History of Past illness Narrative* Problem [...] Overview: Added automatically from request for surgery [id number] Colon cancer screening 12/07/2016 7 Chronic midline [...] pain management for back injury, neck arthritis- [facility] documented as of this encounter (statuses as of 01/17/2023) [facility] of Past illness Narrative* Problem [...] Overview: Added automatically from request for surgery [id number] Colon cancer screening 12/07/2016 7 Chronic midline [...] [facility] as of this encounter (statuses as of 01/18/2023) [facility] of Past illness Narrative* Problem [...] Overview: Added automatically from request for surgery [id number] Colon cancer screening 12/07/2016 7 Chronic midline [...] pain management for back injury, neck arthritis- [facility] documented as of this encounter (statuses as of 01/29/2023) [facility] of Past illness Narrative* Problem [...] Overview: Added automatically from request for surgery [id number] Colon cancer screening 12/07/2016 7 Chronic midline [...] pain management for back injury, neck arthritis- [facility] documented as of this encounter (statuses as of 02/15/2023) [facility] of Past illness Narrative* Problem [...] Overview: Added automatically from request for surgery [id number] Colon cancer screening 12/07/2016 7 Chronic midline [...] pain management for back injury, neck arthritis- [facility] documented as of this encounter (statuses as of 02/15/2023) [facility] of Past illness Narrative* Problem [...] Overview: Added automatically from request for surgery [id number] Colon cancer screening 12/07/2016 7 Chronic midline [...] pain management for back injury, neck arthritis- [facility] documented as of this encounter (statuses as of 02/16/2023) [facility] of [facility] illness Narrative* Problem [...] Overview: Added automatically from request for surgery [id number] Colon cancer screening 12/07/2016 7 Chronic midline [...] pain management for back injury, neck arthritis- [facility] documented as of this encounter (statuses as of 02/16/2023) [facility] Narrative* Problem [...] Overview: Added automatically from request for surgery [id number] Colon cancer screening 12/07/2016 7 Chronic midline [...] [facility] as of this encounter (statuses as of 02/16/2023) [facility] of [facility] Narrative* Problem [...] Overview: Added automatically from request for surgery [id number] Colon cancer screening 12/07/2016 7 Chronic midline [...] pain management for back injury, neck arthritis- [facility] documented as of this encounter (statuses as of 02/27/2023) [facility] Narrative* Problem [...] Overview: Added automatically from request for surgery [id number] Colon cancer screening 12/07/2016 7 Chronic midline [...] pain management for back injury, neck arthritis- [facility] documented as of this encounter (statuses as of 03/01/2023) [facility] Narrative* Problem [...] Overview: Added automatically from request for surgery [id number] Colon cancer screening 12/07/2016 7 Chronic midline [...] pain management for back injury, neck arthritis- [facility] documented as of this encounter (statuses as of 03/02/2023) [facility] Narrative* Problem [...] Overview: Added automatically from request for surgery [id number] Colon cancer screening 12/07/2016 7 Chronic midline [...] pain management for back injury, neck arthritis- [facility] documented as of this encounter (statuses as of 03/05/2023) [facility] Narrative* Problem [...] Overview: Added automatically from request for surgery [id number] Colon cancer screening 12/07/2016 7 Chronic midline [...] pain management for back injury, neck arthritis- [facility] documented as of this encounter (statuses as of 03/13/2023) [facility] Narrative* Problem [...] Overview: Added automatically from request for surgery [id number] Colon cancer screening 12/07/2016 7 Chronic midline [...] Chronic [facility] as of this encounter (statuses as of 03/19/2023) [facility] Narrative* Problem [...] Overview: Added automatically from request for surgery [id number] Colon cancer screening 12/07/2016 7 Chronic midline [...] pain management for back injury, neck arthritis- [facility] documented as of this encounter (statuses as of 03/23/2023) [facility] Narrative* Problem [...] Overview: Added automatically from request for surgery [id number] Colon cancer screening 12/07/2016 7 Chronic midline [...] pain management for back injury, neck arthritis- [facility] documented as of this encounter (statuses as of 04/16/2023) [facility] Narrative* Problem [...] Overview: Added automatically from request for surgery [id number] Colon cancer screening 12/07/2016 7 Chronic midline [...] pain management for back injury, neck arthritis- [facility] documented as of this encounter (statuses as of 05/03/2023) [facility] Narrative* Problem [...] Overview: Added automatically from request for surgery [id number] Colon cancer screening 12/07/2016 7 Chronic midline [...] pain management for back injury, neck arthritis- [facility] documented as of this encounter (statuses as of 05/04/2023) [facility] Narrative* Problem [...] Overview: Added automatically from request for surgery [id number] Colon cancer screening 12/07/2016 7 Chronic midline [...] Chronic pain [facility] as of this encounter (statuses as of 05/08/2023) [facility] Narrative* Problem [...] Overview: Added automatically from request for surgery [id number] Colon cancer screening 12/07/2016 7 Chronic midline [...] pain management for back injury, neck arthritis- [facility] documented as of this encounter (statuses as of 05/09/2023) [facility] Narrative* Problem [...] Overview: Added automatically from request for surgery [id number] Colon cancer screening 12/07/2016 7 Chronic midline [...] pain management for back injury, neck arthritis- [facility] documented as of this encounter (statuses as of 05/09/2023) [facility] Narrative* Problem [...] Overview: Added automatically from request for surgery [id number] Colon cancer screening 12/07/201612/07 Chronic midline low [...] pain management for back injury, neck arthritis- [facility] documented as of this encounter (statuses as of 05/22/2023) [facility] Narrative* Problem [...] Overview: Added automatically from request for surgery [id number] Colon cancer screening 12/07/201612/07 Chronic midline low [...] pain management for back injury, neck arthritis- [facility] documented as of this encounter (statuses as of 05/23/2023) [facility] Narrative* Problem [...] Overview: Added automatically from request for surgery [id number] Colon cancer screening 12/07/201612/07 Chronic midline low [...] Chronic pain [facility] as of this encounter (statuses as of 05/29/2023) [facility] Narrative* Problem [...] Overview: Added automatically from request for surgery [id number] Colon cancer screening 12/07/201612/07 Chronic midline low [...] pain management for back injury, neck arthritis- [facility] documented as of this encounter (statuses as of 05/29/2023) [facility] Narrative* Problem [...] Overview: Added automatically from request for surgery [id number] Colon cancer screening 12/07/201612/07 Chronic midline low [...] pain management for back injury, neck arthritis- [facility] documented as of this encounter (statuses as of 06/26/2023) [facility] Narrative* Problem [...] Overview: Added automatically from request for surgery [id number] Colon cancer screening 12/07/201612/07 Chronic midline low [...] pain management for back injury, neck arthritis- [facility] documented as of this encounter (statuses as of 06/27/2023) [facility] Narrative* Problem [...] Overview: Added automatically from request for surgery [id number] Colon cancer screening 12/07/201612/07 Chronic midline low [...] pain management for back injury, neck arthritis- [facility] documented as of this encounter (statuses as of 07/04/2023) [facility] Narrative* Problem [...] Overview: Added automatically from request for surgery [id number] Colon cancer screening 12/07/201612/07 Chronic midline low [...] pain management for back injury, neck arthritis- [facility] documented as of this encounter (statuses as of 07/21/2023) [facility] Narrative* Problem [...] Overview: Added automatically from request for surgery [id number] Colon cancer screening 12/07/201612/07 Chronic midline low [...] pain management for back injury, neck arthritis- [facility] documented as of this encounter (statuses as of 07/24/2023) [facility] Narrative* Problem [...] Overview: Added automatically from request for surgery [id number] Colon cancer screening 12/07/201612/07 Chronic midline low [...] pain management for back injury, neck arthritis- [facility] documented as of this encounter (statuses as of 08/03/2023) [facility] Narrative* Problem [...] Overview: Added automatically from request for surgery [id number] Colon cancer screening 12/07/201612/07 Chronic midline low [...] pain management for back injury, neck arthritis- [facility] documented as of this encounter (statuses as of 08/18/2023) [facility] Narrative* Problem [...] Overview: Added automatically from request for surgery [id number] Colon cancer screening 12/07/201612/07 Chronic midline low [...] pain management for back injury, neck arthritis- [facility] documented as of this encounter (statuses as of 09/24/2023) [facility] Narrative* Problem [...] Overview: Added automatically from request for surgery [id number] Colon cancer screening 12/07/201612/07 Chronic midline low [...] pain management for back injury, neck arthritis- [facility] documented as of this encounter (statuses as of 09/25/2023) [facility] Narrative* Problem [...] Overview: Added automatically from request for surgery [id number] Colon cancer screening 12/07/201612/07 Chronic midline low [...] pain management for back injury, neck arthritis- [facility] documented as of this encounter (statuses as of 10/24/2023) [facility] Narrative* Problem [...] Overview: Added automatically from request for surgery [id number] Colon cancer screening 12/07/201612/07 Chronic midline low [...] pain management for back injury, neck arthritis- [facility] documented as of this encounter (statuses as of 10/25/2023) [facility] History of Past illness Narrative* Problem [...] Overview: Added automatically from request for surgery [id number] Colon cancer screening 12/07/201612/07 Chronic midline low [...] pain management for back injury, neck arthritis- [facility] documented as of this encounter (statuses as of 12/18/2023) [facility]12-26-2022 History of Past illness Narrative* Problem [...] Overview: Added automatically from request for surgery [id number] Colon cancer screening 12/07/201612/07 Chronic midline low [...] pain management for back injury, neck arthritis- [facility] documented as of this encounter (statuses as of 01/09/2024) [facility]12-26-20[facility] History of Past illness Narrative* Problem [...] Overview: Added automatically from request for surgery [id number] Colon cancer screening 12/07/201612/07 Chronic midline low [...] pain management for back injury, neck arthritis- [facility] documented as of this encounter (statuses as of 01/10/2024) [facility]12-26-20[facility] History of Past illness Narrative* Problem [...] Overview: Added automatically from request for surgery [id number] Colon cancer screening 12/07/201612/07 Chronic midline low [...] pain management for back injury, neck arthritis- [facility] documented as of this encounter (statuses as of 01/24/2024) [facility]12-26-[facility] History of Past illness Narrative* Problem [...] Overview: Added automatically from request for surgery [id number] Colon cancer screening 12/07/201612/07 Chronic midline low [...] pain management for back injury, neck arthritis- [facility] documented as of this encounter (statuses as of 01/25/2024) [facility]12-26-[facility] History of Past illness Narrative* Problem [...] Overview: Added automatically from request for surgery [id number] Colon cancer screening 12/07/201612/07 Chronic midline low [...] pain management for back injury, neck arthritis- [facility] documented as of this encounter (statuses as of 01/25/2024) [facility]12-26-[facility] History of Past illness Narrative* Problem [...] Overview: Added automatically from request for surgery [id number] Colon cancer screening 12/07/201612/07 Chronic midline low [...] pain management for back injury, neck arthritis- [facility] documented as of this encounter (statuses as of 02/21/2024) [facility]12-26-[facility] History of Past illness Narrative* Problem [...] Overview: Added automatically from request for surgery [id number] Colon cancer screening 12/07/201612/07 Chronic midline low [...] pain management for back injury, neck arthritis- [facility] documented as of this encounter (statuses as of 02/21/2024) [facility]11-22-2022 Miscellaneous Notes* Telephone Encounter - Sameera Frederick LPN - 10/03/2022 9:24 AM EST Emiliana from [employer] calling patient medicare assessment was completed today. Provider can go to provider portal if wants to view it. [facility] Miscellaneous Notes* Telephone Encounter - Janey Tamayo LPN - 07/25/2022 12:55 PM EDT TC to pt, notified of provider response. She verbalized understanding. Appt scheduled. Janey Tamayo LPN * Telephone Encounter - Tu Canela MD - 07/25/2022 12:40 PM EDT Bp still up. Labs show kidney function is stable. Potassium slightly low but increasing. Eat high potassium containing foods like bananas etc. Add toprol once a day and recheck bp and pulse in four weeks * Telephone Encounter - Jelena Martin LUCIA - 07/25/2022 11:36 AM EDT Manual Readin/90 [...] and up to date [facility] History of Present illness Narrative* Jelena [...] and up to date [facility]08[facility]29[facility] Miscellaneous Notes* Telephone Encounter - Mile Crocker LPN - 07/10/2022 2:56 PM EDT Patient telephoned, message below given. Voices understanding. Nurse visit scheduled for 07/25 for BP recheck. Mile Crocker LPN * Telephone Encounter - Jie [...] daily and recheck in 2 weeks at [place]. * Telephone Encounter - Natalia Hudson LPN [...] she would be contacted after review by prosthodontist/educator. Natalia Hudson LPN documented [facility]22 Miscellaneous Notes* Telephone Encounter - Babs [...] the lab. Dr Canela documented in [facility]08-[facility] History of Present illness Narrative* Tu [...] mass or adenopathy Fatty liver Splenic enlargement Research Manufacturing Operator: PRINCE Transcribe Date/Time: May 17 2022 3:43P Dictated by : TANGELA MCKEON MD This examination was interpreted and the report reviewed and electronically signed by: TANGELA MCKEON MD on May 17 2022 3:53PM EST Results-Findings * * *Final Report* * * DATE OF EXAM: May 16 2022 3:28PM [facility] 0530 - CT ABD/PEL W IVCON / [...] 180/88 Pulse 79 Ht 165.1 cm (5' 5) Wt 69 kg (152 lb 3.2 oz) [...] three months and prn. documented in [facility]07-29[facility] History of Present illness Narrative* Nevin Fajardo APRN.[employer] - 06/09/2022 10:04 AM EDT Chief Complaint [...] done last week by Dr. Borrero at [facility]. Next due in 5 years per report. Appetite:It's ok. Energy level:I have no energy. I hate this heat. Denies fevers or recent illness. Resp:denies cough or sob, occ. hlil +smoker Cardiac:denies chest pain/occ. 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 Nevin Fajardo APRN.[facility] documented in [address] [facility]07-27-[facility] History of Present illness Narrative* Tu [...] mass or adenopathy Fatty liver Splenic enlargement Research Manufacturing Operator: PRINCE Transcribe Date/Time: May 17 2022 3:43P Dictated by : TANGELA MCKEON MD This examination was interpreted and the report reviewed and electronically signed by: TANGELA MCKEON MD on May 17 2022 3:53PM EST Results-Findings * * *Final Report* * * DATE OF EXAM: May 16 2022 3:28PM [facility] 0530 - CT ABD/PEL W IVCON / [...] Tissues: No significant finding. Lower thorax: Unremarkable. [employer] Manager (topogram) images: No additional findings. MEDICATIONS: Current [...] her. Tu Canela MD documented in [address] [facility]07-06-2022 Miscellaneous Notes* Telephone Encounter - Miracle Anthony Ma - 05/17/2022 5:35 PM EDT Patient was notified and has appointment 06/01 Miracle Anthony Ma * Telephone Encounter - uT Canela MD - 05/17/2022 5:[address] does not show a definite lump. Shows fatty liver and some mild enlargement of the spleen related to the liver. Weight loss helps etc. Follow up in one to two weeks to discuss more and recheck. [facility] [address] [facility]07-05-20[facility] History of Present illness Narrative* Savanah [...] 2022 TIME: 3:29 PM documented in [address] [facility]06-21-2022 Miscellaneous Notes* Letter - Mammography Coordinator - 05/02/2022 11:37 AM EDT May 02, 2022 PID: [id number] [address]ore[address] He[address] [place] [address] Dear Ms. Healy, Your recent breast imaging exam on 05/02/2022 showed a possible finding that requires additional imaging studies for a complete evaluation. Most such findings are probably benign (not cancer). If you have a healthcare provider who ordered/prescribed your screening mammogram: Please call [phone] or [phone] to schedule an appointment for your additional [...] and reports are kept on file at [facility] as part of your permanent medical record, and are available for your continuing care. Thank you for allowing us to help in meeting your health care needs. Sincerely, Dr. Redman Interpreting Radiologist [facility] (Additional imaging) documented in this encounter[address] [facility]06-21-2022 Procedure note* Layla Ness - 05/02/2022 9:30 AM EDT Radiology Service [...] PERIPHERAL IV DATA: Not applicable SIGNED BY: Layla Ness May 02, 2022 9:46 AM documented in [address] [facility]05-05-2022 Miscellaneous Notes* Telephone Encounter - Wanda Anthony Ma - 03/16/2022 1:51 PM EDT Referral, demo, and most recent OV faxed to Dr. Borrero's office. Wanda Anthony Ma * Telephone Encounter - Tu Canela MD - 03/16/2022 1:48 PM EDT Placed. * Telephone Encounter - Aneta Griffith RN - 03/16/2022 1:35 PM EDT Patient reports she is scheduled with Dr. Borrero GI, at [facility], on 04-17-22, for a consult for colonoscopy. Asking pcp to send referral, ov notes, and demographics to Dr. Borrero. documented [address] [facility]05-15-2018 History of Past illness Narrative* Problem Noted Date Resolved Date Chronic midline low back pain without sciatica 0 03/26/2018 07/24/2019 Acute pain of right shoulder 11/29/2017 Low back pain radiating to right lower extremity 11/29/2017 07/24/2019 Chronic pain syndrome 09/27/2017 11/28/2018 Trigger finger, acquired 09/26/2017 019 Overview: Added automatically from request for surgery [id number] Colon cancer screening 12/07/2016 7 Chronic midline [...] pain management for back injury, neck arthritis- [facility] documented as of this encounter (statuses as of 03/16/2022) [facility]05-15-[facility] History of Past illness Narrative* Problem Noted Date Resolved Date Chronic midline low back pain without sciatica 0 03/26/2018 07/24/2019 Acute pain of right shoulder 11/29/2017 Low back pain radiating to right lower extremity 11/29/2017 07/24/2019 Chronic pain syndrome 09/27/2017 11/28/2018 Trigger finger, acquired 09/26/2017 019 Overview: Added automatically from request for surgery [id number] Colon cancer screening 12/07/2016 7 Chronic midline [...] pain management for back injury, neck arthritis- [facility] documented as of this encounter (statuses as of 05/03/2022) [facility] History of Past illness Narrative* Problem Noted Date Resolved Date Chronic midline low back pain without sciatica 0 03/26/2018 07/24/2019 Acute pain of right shoulder 11/29/2017 Low back pain radiating to right lower extremity 11/29/2017 07/24/2019 Chronic pain syndrome 09/27/2017 11/28/2018 Trigger finger, acquired 09/26/2017 019 Overview: Added automatically from request for surgery [id number] Colon cancer screening 12/07/2016 7 Chronic midline [...] pain management for back injury, neck arthritis- [facility] documented as of this encounter (statuses as of 05/04/2022) [facility] History of Past illness Narrative* Problem Noted Date Resolved Date Chronic midline low back pain without sciatica 0 03/26/2018 07/24/2019 Acute pain of right shoulder 11/29/2017 Low back pain radiating to right lower extremity 11/29/2017 07/24/2019 Chronic pain syndrome 09/27/2017 11/28/2018 Trigger finger, acquired 09/26/2017 019 Overview: Added automatically from request for surgery [id number] Colon cancer screening 12/07/2016 7 Chronic midline [...] [facility] of this encounter (statuses as of 05/17/2022) [facility] History of Past illness Narrative* Problem Noted Date Resolved Date Chronic midline low back pain without sciatica 0 03/26/2018 07/24/2019 Acute pain of right shoulder 11/29/2017 Low back pain radiating to right lower extremity 11/29/2017 07/24/2019 Chronic pain syndrome 09/27/2017 11/28/2018 Trigger finger, acquired 09/26/2017 019 Overview: Added automatically from request for surgery [id number] Colon cancer screening 12/07/2016 7 Chronic midline [...] Chronic pain [facility] as of this encounter (statuses as of 05/17/2022) [facility] History of [facility] illness Narrative* Problem Noted Date Resolved Date Chronic midline low back pain without sciatica 0 03/26/2018 07/24/2019 Acute pain of right shoulder 11/29/2017 Low back pain radiating to right lower extremity 11/29/2017 07/24/2019 Chronic pain syndrome 09/27/2017 11/28/2018 Trigger finger, acquired 09/26/2017 019 Overview: Added automatically from request for surgery [id number] Colon cancer screening 12/07/2016 7 Chronic midline [...] pain management for back injury, neck arthritis- [facility] documented as of this encounter (statuses as of 05/17/2022) [facility] History of Past illness Narrative* Problem Noted Date Resolved Date Chronic midline low back pain without sciatica 0 03/26/2018 07/24/2019 Acute pain of right shoulder 11/29/2017 Low back pain radiating to right lower extremity 11/29/2017 07/24/2019 Chronic pain syndrome 09/27/2017 11/28/2018 Trigger finger, acquired 09/26/2017 019 Overview: Added automatically from request for surgery [id number] Colon cancer screening 12/07/2016 7 Chronic midline [...] pain management for back injury, neck arthritis- [facility] documented as of this encounter (statuses as of 06/07/2022) [facility] History of Past illness Narrative* Problem Noted Date Resolved Date Chronic midline low back pain without sciatica 0 03/26/2018 07/24/2019 Acute pain of right shoulder 11/29/2017 Low back pain radiating to right lower extremity 11/29/2017 07/24/2019 Chronic pain syndrome 09/27/2017 11/28/2018 Trigger finger, acquired 09/26/2017 019 Overview: Added automatically from request for surgery [id number] Colon cancer screening 12/07/2016 7 Chronic midline [...] Chronic pain [facility] documented as of this encounter (statuses as of 06/09/2022) [facility] History of Past illness Narrative* Problem Noted Date Resolved Date Chronic midline low back pain without sciatica 0 03/26/2018 07/24/2019 Acute pain of right shoulder 11/29/2017 Low back pain radiating to right lower extremity 11/29/2017 07/24/2019 Chronic pain syndrome 09/27/2017 11/28/2018 Trigger finger, acquired 09/26/2017 019 Overview: Added automatically from request for surgery [id number] Colon cancer screening 12/07/2016 7 Chronic midline [...] Chronic pain [facility] as of this encounter (statuses as of 06/14/2022) [facility] History of [facility] illness Narrative* Problem Noted Date Resolved Date Chronic midline low back pain without sciatica 0 03/26/2018 07/24/2019 Acute pain of right shoulder 11/29/2017 Low back pain radiating to right lower extremity 11/29/2017 07/24/2019 Chronic pain syndrome 09/27/2017 11/28/2018 Trigger finger, acquired 09/26/2017 019 Overview: Added automatically from request for surgery [id number] Colon cancer screening 12/07/2016 7 Chronic midline [...] pain management for back injury, neck arthritis- [facility] documented as of this encounter (statuses as of 06/26/2022) [facility] History of Past illness Narrative* Problem Noted Date Resolved Date Chronic midline low back pain without sciatica 0 03/26/2018 07/24/2019 Acute pain of right shoulder 11/29/2017 Low back pain radiating to right lower extremity 11/29/2017 07/24/2019 Chronic pain syndrome 09/27/2017 11/28/2018 Trigger finger, acquired 09/26/2017 019 Overview: Added automatically from request for surgery [id number] Colon cancer screening 12/07/2016 7 Chronic midline [...] pain management for back injury, neck arthritis- [facility] documented as of this encounter (statuses as of 07/03/2022) [facility] History of Past illness Narrative* Problem Noted Date Resolved Date Chronic midline low back pain without sciatica 0 03/26/2018 07/24/2019 Acute pain of right shoulder 11/29/2017 Low back pain radiating to right lower extremity 11/29/2017 07/24/2019 Chronic pain syndrome 09/27/2017 11/28/2018 Trigger finger, acquired 09/26/2017 019 Overview: Added automatically from request for surgery [id number] Colon cancer screening 12/07/2016 7 Chronic midline [...] Chronic pain [facility], [facility] documented as of this encounter (statuses as of 07/25/2022) [facility] History of Past illness Narrative* Problem Noted Date Resolved Date Chronic midline low back pain without sciatica 0 03/26/2018 07/24/2019 Acute pain of right shoulder 11/29/2017 Low back pain radiating to right lower extremity 11/29/2017 07/24/2019 Chronic pain syndrome 09/27/2017 11/28/2018 Trigger finger, acquired 09/26/2017 019 Overview: Added automatically from request for surgery [id number] Colon cancer screening 12/07/2016 7 Chronic midline [...] Chronic pain management for back injury, [facility] documented as of this encounter (statuses as of 07/25/2022) [facility] History of Past illness Narrative* Problem Noted Date Resolved Date Chronic midline low back pain without sciatica 0 03/26/2018 07/24/2019 Acute pain of right shoulder 11/29/2017 Low back pain radiating to right lower extremity 11/29/2017 07/24/2019 Chronic pain syndrome 09/27/2017 11/28/2018 Trigger finger, acquired 09/26/2017 019 Overview: Added automatically from request for surgery [id number] Colon cancer screening 12/07/2016 7 Chronic midline [...] pain management for back injury, neck arthritis- [facility] documented as of this encounter (statuses as of 11/05/2022) [facility]* Diagnosis History of colonic polyps- Primary Personal history of colonic polyps documented in this encounter [facility] noteNo assessment information availableWChildren's Hospital of [facility] Work Phone: Evaluation note* Diagnosis Malignant neoplasm of upper-outer quadrant of left breast in female, estrogen receptor positive (HCC) Encounter for screening mammogram for high-risk patient documented in this encounter [facility]* Diagnosis Malignant neoplasm of upper-outer quadrant of left breast in female, estrogen receptor positive (HCC) Abdominal mass of other site Abdominal or pelvic swelling, mass, or lump, other specified site Intra-abdominal and pelvic swelling, mass and lump, unspecified site documented in this encounter [facility]* Diagnosis Onset Date Resolution Status Bleeding internal hemorrhoids acute Personal history of colonic polyps acute [facility] Work Phone: Evaluation note* Diagnosis Left before treatment completed- Primary Personal history of noncompliance with medical treatment, presenting hazards to health documented in this encounter [facility]* Diagnosis Malignant neoplasm of upper-outer quadrant of left breast in female, estrogen receptor positive (HCC)- Primary documented in this encounter [facility]* Diagnosis Primary hypertension- Primary Unspecified essential hypertension Ectatic aorta (HCC) Aortic ectasia, unspecified site Fatty liver 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 Venous insufficiency Unspecified venous (peripheral) insufficiency documented in this encounter [facility] note* Diagnosis Hyponatremia- Primary Hyposmolality and/or hyponatremia documented in this encounter [facility]* Diagnosis Primary hypertension- Primary Unspecified essential hypertension documented in this encounter [facility]* Diagnosis Primary hypertension- Primary Unspecified essential hypertension documented in this encounter [facility]* Diagnosis Cellulitis of right leg- Primary Cellulitis and abscess of leg, except foot Chronic obstructive pulmonary disease, unspecified COPD type (HCC) Essential hypertension, benign Hyperlipidemia, unspecified hyperlipidemia type Psoriasis Other psoriasis Other chronic pain documented in this encounter [facility]* Diagnosis Cellulitis of right leg- Primary Cellulitis and abscess of leg, except foot Chronic obstructive pulmonary disease, unspecified COPD type (HCC) Essential hypertension, benign Hyperlipidemia, unspecified hyperlipidemia type Psoriasis Other psoriasis Other chronic pain documented in this encounter [facility]* Diagnosis Venous (peripheral) insufficiency- Primary Unspecified venous (peripheral) insufficiency Peripheral arterial disease (HCC) Peripheral vascular disease, unspecified documented in this encounter [facility]* Diagnosis Primary hypertension Unspecified essential hypertension [facility] this encounter [facility]* Diagnosis History of Jovana thyroiditis Personal history of other endocrine, metabolic, and immunity disorders documented in this encounter [facility]* Diagnosis Primary hypertension- Primary Unspecified essential hypertension Hyperlipidemia, unspecified hyperlipidemia type Postoperative hypothyroidism Postsurgical hypothyroidism documented in this encounter [facility]* Diagnosis Primary hypertension Unspecified essential hypertension documented in this encounter [facility]* Diagnosis Symptomatic varicose veins of both lower extremities- Primary Varicose veins of lower extremities with other complications documented in this encounter [facility]* Diagnosis Hyperglycemia- Primary Other abnormal glucose Venous insufficiency Unspecified venous (peripheral) insufficiency Urinary urgency Urgency of urination Primary hypertension Unspecified essential hypertension Hyperlipidemia, unspecified hyperlipidemia type Urinary retention Retention of urine, unspecified Stage 3a chronic kidney disease (HCC) Postoperative hypothyroidism Postsurgical hypothyroidism Hernia of abdominal wall Ventral hernia, unspecified, without mention of obstruction or gangrene documented [facility] this encounter [facility]* Diagnosis Microscopic hematuria- Primary documented in this encounter [facility]* Diagnosis Hernia of abdominal wall Ventral hernia, unspecified, without mention of obstruction or gangrene [facility]* Diagnosis Personal history of breast cancer- Primary Personal history of malignant neoplasm of breast Encounter for screening mammogram for high-risk patient Stage 3a chronic kidney disease (HCC) documented in this encounter [facility]* Diagnosis Primary hypertension- Primary Unspecified essential hypertension documented [facility] this encounter [facility]* Diagnosis Cellulitis of right leg- Primary Cellulitis and abscess of leg, except foot Chronic obstructive pulmonary disease, unspecified COPD type (HCC) Essential hypertension, benign Hyperlipidemia, unspecified hyperlipidemia type Psoriasis Other psoriasis Other chronic pain Malignant neoplasm of upper-outer quadrant of left breast in female, estrogen receptor positive (HCC) documented in this encounter [facility]* Diagnosis Hernia of abdominal wall- Primary Ventral hernia, unspecified, without mention of obstruction or gangrene [facility] Primary hypertension Unspecified essential [facility] Primary hypertension- Primary Unspecified essential hypertension [facility] this [facility] Diagnosis Symptomatic varicose veins of both lower extremities- Primary Varicose veins of lower extremities with other complications [facility] this [facility] Diagnosis Encounter for immunization- Primary Need [...] receptor positive (HCC) [facility] this [facility] Diagnosis Personal history of breast cancer- Primary Personal history of malignant neoplasm of breast Encounter for screening mammogram for high-risk patient [facility] Primary hypertension Unspecified essential hypertension History of Jovana thyroiditis Personal history of other endocrine, metabolic, and immunity disorders [facility] this encounter [facility] Diagnosis Primary hypertension Unspecified essential hypertension Chronic pain syndrome [facility] this [facility] Diagnosis Primary hypertension- Primary Unspecified essential hypertension Chronic pain syndrome Multiple thyroid nodules Nontoxic multinodular goiter Hyperglycemia Other abnormal glucose Hyperlipidemia, unspecified hyperlipidemia type [facility] this encounter [facility] Diagnosis Personal history of breast cancer Personal history of malignant neoplasm of breast Encounter for screening mammogram for high-risk patient [facility] this encounter [facility] Diagnosis Personal history of breast cancer- Primary Personal history of malignant neoplasm of breast Encounter for screening mammogram for high-risk patient [facility] this [facility] Diagnosis Chronic pain syndrome [facility] this [facility] Diagnosis Primary hypertension- Primary Unspecified essential hypertension [facility] this [facility] Diagnosis Primary hypertension- Primary Unspecified essential hypertension documented [facility] this [facility] Diagnosis Multiple thyroid nodules- Primary Nontoxic multinodular goiter Multiple thyroid nodules Nontoxic multinodular goiter documented [facility] this encounter [facility] Diagnosis Acute right ankle pain Localized edema Edema Edema, unspecified type documented [facility] this encounter [facility] Diagnosis Primary hypertension- Primary Unspecified essential hypertension Need for influenza vaccination Need for prophylactic vaccination and inoculation against influenza Eustachian tube dysfunction, bilateral [facility] this encounter [facility] Diagnosis Chronic pain syndrome [facility] this [facility] Diagnosis Primary hypertension- Primary Unspecified essential hypertension Leg swelling Swelling of limb Postoperative hypothyroidism Postsurgical hypothyroidism Dry skin Other specified disease of sebaceous glands [facility] this encounter [facility] Diagnosis Acute left-sided weakness [R53.1]- Primary Hemiplegia, unspecified, affecting unspecified side documented [facility] this encounter [facility] Diagnosis Encounter for support and coordination of transition of care- Primary [facility] this [facility] Diagnosis Ischemic stroke (HCC)- Primary [facility] this [facility]* Diagnosis Ischemic stroke (HCC)- Primary Primary hypertension Unspecified essential hypertension Lung nodules Other nonspecific abnormal finding of lung field Tobacco abuse Tobacco use disorder [facility] this [facility] Diagnosis Lacunar stroke (HCC)- Primary Unspecified cerebral artery occlusion with cerebral infarction Primary hypertension Unspecified essential hypertension Smoking Tobacco use disorder Hyperlipidemia, unspecified hyperlipidemia type [facility] Diagnosis Need for follow-up by clinical social worker- Primary Encounter for support and coordination of transition of care [facility] this encounter [facility] Diagnosis Low back pain without sciatica, unspecified back pain laterality, unspecified chronicity [facility] this encounter [facility] Diagnosis Primary hypertension- Primary Unspecified essential hypertension History of ischemic stroke Chronic pain syndrome Leg swelling Swelling of limb Acute cystitis without hematuria Acute cystitis documented [facility] this encounter [facility] Diagnosis Acute cystitis without hematuria Acute cystitis Chronic pain syndrome History of Jovana thyroiditis Personal history of other endocrine, metabolic, and immunity disorders documented [facility] this encounter [facility]* Diagnosis Ischemic stroke (HCC)- Primary Other cerebral infarction (HCC) Primary hypertension Unspecified essential hypertension Venous insufficiency Unspecified venous (peripheral) insufficiency Hyperlipidemia, unspecified hyperlipidemia type Stage 3a chronic kidney disease (HCC) Hypothyroidism, unspecified type Malignant neoplasm of upper-outer quadrant of left breast in female, estrogen receptor positive (HCC) History of breast cancer Personal history of malignant neoplasm of breast Other cough Weight gain Abnormal weight gain SOB (shortness of breath) Shortness of breath [facility] this encounter [facility] Diagnosis Other cough SOB (shortness of breath) Shortness of breath [facility] this [facility] Diagnosis Anemia, unspecified type- Primary Congestive heart failure, unspecified HF chronicity, unspecified heart failure type (HCC) [facility] Diagnosis Hemiparesis affecting left side as late effect of cerebrovascular accident (HCC)- Primary Hemiplegia affecting unspecified side, late effect of cerebrovascular disease Intracranial atherosclerosis Cerebral atherosclerosis Mixed hyperlipidemia Chronic left-sided thoracic back pain Occlusion and stenosis of right vertebral artery Occlusion and stenosis of vertebral artery without mention of cerebral infarction Subclavian arterial stenosis (HCC) Stricture of artery Primary hypertension Unspecified essential hypertension Tobacco use disorder, moderate, in sustained remission documented [facility] this encounter [facility]* Diagnosis Anemia, unspecified type- Primary documented [facility] this encounter [facility]* Diagnosis Chronic left-sided thoracic back pain documented [facility] this encounter [facility]* Diagnosis Symptomatic varicose veins, bilateral- Primary Venous insufficiency Unspecified venous (peripheral) insufficiency documented in this encounter [facility]* Diagnosis Ischemic stroke (HCC)- Primary Anemia, unspecified type Congestive heart failure, unspecified HF chronicity, unspecified heart failure type (HCC) Hypothyroidism, unspecified type Primary hypertension Unspecified essential hypertension Stage 3a chronic kidney disease (HCC) Chronic pain syndrome Chronic midline thoracic back pain SOB (shortness of breath) Shortness of breath documented [facility] this [facility]* Diagnosis Symptomatic varicose veins of both lower extremities- Primary Varicose veins of lower extremities with other complications documented [facility]* Diagnosis Essential (primary) hypertension- Primary Unspecified essential hypertension Chronic pain syndrome Chronic right shoulder pain Pain in joint, shoulder region Hyperlipidemia, unspecified hyperlipidemia type Long-term current use of thyroid hormone replacement therapy Personal history of transient ischemic attack (TIA), and cerebral infarction without residual deficits Symptomatic varicose veins, unspecified laterality documented in this encounter [facility] note* Diagnosis Personal history of breast cancer Personal history of malignant neoplasm of breast Encounter for screening mammogram for high-risk patient documented in this encounter [facility] note* Diagnosis Symptomatic varicose veins of both lower extremities- Primary Varicose veins of lower extremities with other complications documented in this encounter [facility] note* Diagnosis Symptomatic varicose veins of both lower extremities- Primary Varicose veins of lower extremities with other complications [facility] Instructions CT chest negative for PE. COVID changes noted. Labs was only significant for potassium 3.3 with oral replacement. Continue oral fluids at home, adjunct therapies as discussed for your cough symptoms. Stops your tobacco use. Follow-up with your doctor.[facility] Work Phone: Reason for referral (narrative)* Diagnostic Procedure Only (Routine) - Closed Specialty Diagnoses / Procedures Referred By Griselda french Referred To Contact [facility] Diagnoses Malignant neoplasm of upper-outer quadrant of left breast in female, estrogen receptor positive (HCC) Encounter for screening mammogram for high-risk patient Procedures TITO SCREENING SCREENING MAMMOGRAPHY BI 2-VIEW BREAST INC Nevin Tilley, [place] [address] [place] [address] [facility] [address] [place] [address] Referral ID Status Reason Start Date Expiration Date V isits Requested Visits Authorized [id number] Closed Auto-Generate d Referral 01/05/2022 02/04/2023 1 1 [facility] for referral (narrative)* Diagnostic Procedure Only (Routine) - Authorized Specialty Diagnoses / Procedures Referred By Contac t Referred To Contact US IMAGING Diagnoses Renal cyst Procedures US KIDNEY/BLADDER US RETROPERITONEAL REAL TIME W/IMAGE COMPLETE Tu Canela MD [address] [place] [address] Us Imaging Referral ID Status Reason Start Date Expiration Date Visits Requested Visits Authorized [id number] Authorized Auto-Generat ed Referral 12/15/2022 07/14/2023 1 1 [facility] for referral (narrative)* Outpatient Procedure (Routine) - Authorized Specialty Diagnoses / Procedures Referred By Contac t Referred To Contact [facility] Diagnoses Peripheral arterial disease (HCC) Procedures PVR ANK/DAUGHERTY/TOE [facility] VAS [facility] NON-INVAS PHYSIOLOGIC STD EXTREMITY ART 2 LEVEL Jannie Proctor DO [address] [place] [address] [facility] [address] [address] Referral ID Status Reason Start Date Expiration Date Visits Requested Visits Authorized [id number] Authorized Auto-Generat ed Referral 01/09/2023 01/09/2024 1 1 * Outpatient Procedure (Routine) - Pending Review Specialty Diagnoses / Procedures Referred By Contac t Referred To Contact [facility] Diagnoses Venous (peripheral) insufficiency Procedures US VENOUS INCOMPETENCY [facility] DUP-SCAN XTR VEINS COMPLETE BILATERAL STUDY Jannie Proctor DO [address] [place] [address] [facility] [address] [place] [address] Referral ID Status Reason Start Date Expiration Date Visits Requested Visits Authorized [id number] Pending Review Auto-Generat ed Referral 01/09/2023 01/09/2024 1 1 [facility] for referral (narrative)* Diagnostic Procedure Only (Routine) - Authorized Specialty Diagnoses / Procedures Referred By Contac t Referred To Contact [facility] Diagnoses Personal history of breast cancer Encounter for screening mammogram for high-risk patient Procedures TITO SCREENING SCREENING MAMMOGRAPHY BI 2-VIEW BREAST INC Nevin Tilley APRN.CNP [address] [place] [address] [facility] [address] [place] [address] Referral ID Status Reason Start Date Expiration Date Visits Requested Visits Authorized [id number] Authorized Auto-Generat ed Referral 03/22/2023 04/20/2024 1 1 [facility] for referral (narrative)* Diagnostic Procedure Only (Routine) - Authorized Specialty Diagnoses / Procedures Referred By Conttoño t Referred To Contact [facility] Diagnoses Personal history of breast cancer Encounter for screening mammogram for high-risk patient Procedures TITO SCREENING SCREENING MAMMOGRAPHY BI 2-VIEW BREAST INC Nevin Tilley APRN.CNP [address] [place] [address] [facility] [address] [place] [address] Referral ID Status Reason Start Date Expiration Date Visits Requested Visits Authorized [id number] Authorized Auto-Generat ed Referral 3 10/24/[address] [facility] Diagnostic Procedure Only (Routine) - Authorized Specialty Diagnoses / Procedures Referred By Contac t Referred To Contact [facility] Diagnoses Personal history of breast cancer Encounter for screening mammogram for high-risk patient Procedures TITO SCREENING SCREENING MAMMOGRAPHY BI 2-VIEW BREAST INC Nevin Tilley APRN.CNP [address] [place] [address] [facility] [address] [place] [address] Referral ID Status Reason Start Date Expiration Date Visits Requested Visits Authorized [id number] Authorized Auto-Generat ed Referral 05/07/2024 06/06/2025 1 1 [facility] for referral (narrative)* Diagnostic Procedure Only (Routine) - Closed Specialty Diagnoses / Procedures Referred By Contac t Referred To Contact [facility] IMAGING Diagnoses Multiple thyroid nodules Procedures US THYROID/PARATHYROID US SOFT TISSUE HEAD & NECK REAL TIME IMGE Aneta Phelps PA-C [address] [place] [address] [place] [address] Referral ID Status Reason Start Date Expiration Date V isits Requested Visits Authorized [id number] Closed Auto-Generate d Referral 11/24/2023 12/23/2024 1 1 [facility] for referral (narrative)* Diagnostic Procedure Only (Routine) - Closed Specialty Diagnoses / Procedures Referred By Contac t Referred To Contact XR IMAGING Diagnoses Edema, unspecified type Procedures XR FOOT GENERAL 3V AP/LAT/OBL RIGHT RADEX FOOT COMPLETE MINIMUM 3 VIEWS Tu Canela MD [address] [place] [address] [place] [address] Referral ID Status Reason Start Date Expiration Date V isits Requested Visits Authorized [id number] Closed Auto-Generate d Referral 11/30/2021 12/30/2022 1 1 * Diagnostic Procedure Only (Routine) - Closed Specialty Diagnoses / Procedures Referred By Contac t Referred To Contact XR IMAGING Diagnoses Edema, unspecified type Procedures XR ANKLE GENERAL 3V AP/LAT/OBL RIGHT RADEX ANKLE COMPLETE MINIMUM 3 VIEWS Tu Canela MD [address] [place] [address] [place] [address] Referral ID Status Reason Start Date Expiration Date V isits Requested Visits Authorized [id number] Closed Auto-Generate d Referral 11/30/2021 12/30/2022 1 1 [facility] for visit Narrative* Diagnostic Procedure Only (Routine) - Closed Specialty Diagnoses / Procedures Referred By Contac t Referred To Contact [facility] Diagnoses Personal history of breast cancer Encounter for screening mammogram for high-risk patient Procedures TITO SCREENING SCREENING MAMMOGRAPHY BI 2-VIEW BREAST INC CAD Nevin Fajardo, [employer] [address] [place] [address] [facility] [address] [place] [address] Referral ID Status Reason Start Date Expiration Date V isits Requested Visits Authorized [id number] Closed Auto-Generate d Referral 09/25/2023 10/24/2024 1 1 [facility] for visit Narrative* Diagnostic Procedure Only (Routine) - Closed Specialty Diagnoses / Procedures Referred By Contac t Referred To Contact XR IMAGING Diagnoses Edema, unspecified type Procedures XR FOOT GENERAL 3V AP/LAT/OBL RIGHT RADEX FOOT COMPLETE MINIMUM 3 VIEWS Tu Canela MD [address] [place] [address] [place] [address] Referral ID Status Reason Start Date Expiration Date V isits Requested Visits Authorized [id number] Closed Auto-Generate d Referral 11/30/2021 12/30/2022 1 1 [facility] for visit Narrative* Diagnostic Procedure Only (Routine) - Closed Specialty Diagnoses / Procedures Referred By Contac t Referred To Contact XR IMAGING Diagnoses Low back pain without sciatica, unspecified back pain laterality, unspecified chronicity Procedures XR LUMBAR GENERAL 3V AP/LAT/L5-S1 RADEX SPINE LUMBOSACRAL 2/3 VIEWS Rosie Syed, [employer] [address] [place] [address] [place] [address] Referral ID Status Reason Start Date Expiration Date V isits Requested Visits Authorized [id number] Closed Auto-Generate d Referral 11/19/2024 12/19/2025 1 1 [facility] for visit Narrative* Diagnostic Procedure Only (Routine) - Closed Specialty Diagnoses / Procedures Referred By Contac t Referred To Contact XR IMAGING Diagnoses Chronic left-sided thoracic back pain Procedures XR THORACIC GENERAL 3V AP/LAT/SWIMMERS RADEX SPINE THORACIC 3 VIEWS Amy Fry, [employer] [address] [place] [address] Phone: tel: fax: [place] [address] Referral ID Status Reason Start Date Expiration Date V isits Requested Visits Authorized [id number] Closed Auto-Generate d Referral 02/04/2025 03/06/2026 1 1 [facility] for visit Narrative* Diagnostic Procedure Only (Routine) - Closed Specialty Diagnoses / Procedures Referred By Contac t Referred To Contact [facility] Diagnoses Personal history of breast cancer Encounter for screening mammogram for high-risk patient Procedures TITO SCREENING SCREENING MAMMOGRAPHY BI 2-VIEW BREAST INC CAD Nevin Fajardo, LIABILITY [employer] [address] [place] [address] Phone: tel: fax: [facility] [address] [place] [address] Referral ID Status Reason Start Date Expiration Date V isits Requested Visits Authorized [id number] Closed Auto-Generate d Referral 05/07/2024 06/06/[address] [facility] Reason for Referral Specialty Diagnoses / Procedures Referred By Contac t Referred To Contact Gastroenterology Diagnoses History of colonic polyps Procedures CONSULT TO GASTROENTEROLOGY OFFICE/OUTPATIENT NEW HIGH MDM 60-74 MINUTES Tu Canela MD [address] [place] [address] Referral ID Status Reason Start Date Expiration Date Visits Requested Visits Authorized [id number] Pending Review PCP Requested Referral 03/16/2022 03/16/2023 [...] & PELVIS W/CONTRAST Tu Canela MD [address] [place] [address] Ct Imaging Referral ID Status Reason Start Date Expiration Date V isits Requested Visits Authorized [id number] Closed Auto-Generate d Referral 05/10/2022 06/09/2023 2 2 Specialty Diagnoses / Procedures Referred By Contac t Referred To Contact General Surgery Diagnoses Hernia of abdominal wall Procedures CONSULT TO GENERAL SURGERY OFFICE/OUTPATIENT [facility] 60-74 MINUTES Tu Canela MD [address] [place] [address] Referral ID Status Reason Start Date Expiration Date Visits Requested Visits Authorized [id number] Pending Review PCP Requested Referral 03/02/2023 03/01/2024 1 1 Specialty Diagnoses / Procedures Referred By Contac t Referred To Contact Urology Diagnoses Urinary urgency Urinary retention Procedures CONSULT TO UROLOGY OFFICE/OUTPATIENT [facility] 60-74 MINUTES Tu Canela MD [address] [place] [address] Referral ID Status Reason Start Date Expiration Date Visits Requested Visits Authorized [id number] Pending Review PCP Requested Referral 03/02/2023 03/01/2024 1 1 Specialty Diagnoses / Procedures Referred By Contac t Referred To Contact CT IMAGING Diagnoses Lung nodules Procedures CT CHEST WO IVCON DIAGNOSTIC COMPUTED TOMOGRAPHY THORAX W/O CNTRST Rosie Syed, [employer] [address] [place] [address] [place] [address] Referral ID Status Reason Start Date Expiration Date Visits Requested Visits Authorized [id number] New Request Auto-Generat ed Referral 05/01/2025 11/30/2025 1 1 Specialty Diagnoses / Procedures Referred By Contac t Referred To Contact Diagnoses Lacunar stroke (HCC) Procedures PROVIDER ORDERED FOLLOW UP OFFICE/OUTPATIENT [facility] 60 MINUTES Aylin Paz, LIABILITY CLAIMS [employer] [address] [place] [address] Referral ID Status Reason Start Date Expiration Date Visits Requested Visits Authorized [id number] Authorized PCP Requested Referral 02/01/2025 11/03/2025 1 1 Advance Directives No Advanced Directives Records FoundDocuments on File Type Date Recorded 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 Advance Directive(s) 12/16/2019 2:30 PM Advance Directive(s) 10/02/2019 12:23 PM Advance Directive(s) 08/01/2019 7:02 AM Advance Directive(s) 03/11/2019 10:41 AM Advance Directive(s) 12/31/2018 12:31 PM Advance Directive(s) 11/21/2018 10:53 AM Advance Directive(s) 09/23/2018 11:35 AM Advance Directive(s) 10/11/2017 11:19 AM Advance Directive(s) 08/22/2017 10:27 AM Advance Directive(s) 12/07/2016 10:24 AM Advance Directive Response Recorded Date/ Time Advance Directives No May 11 2:53pm Living Will No May 11, 2015 2:53pm Power of Unarmed Security Guard No May 11 5 2:53pm Documents on File Type Date Recorded 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 Advance Directive(s) 12/16/2019 2:30 PM Advance Directive(s) 10/02/2019 12:23 PM Advance Directive(s) 08/01/2019 7:02 AM Advance Directive(s) 03/11/2019 10:41 AM Advance Directive(s) 12/31/2018 12:31 PM Advance Directive(s) 11/21/2018 10:53 AM Advance Directive(s) 09/23/2018 11:35 AM Advance Directive(s) 10/11/2017 11:19 AM Advance Directive(s) 08/22/2017 10:27 AM Advance Directive(s) 12/07/2016 10:24 AM Advance Directive Response Recorded Date/ Time Advance Directives No May 11 2:53pm Living Will No May 24, 2022 9:44am Power of Unarmed Security Guard No May 24 9:44am Latest Code Status on File Code Status Date Activated Date Inactivated Comments Full Code 11/05/2022 7:52 PM 11/15/2022 12:08 PM Full Code Order Discussed With: Patient Advance Directive Response Recorded Date/ Time Advance Directives No May 11 1:53pm Living Will No May 24, 2022 8:44am Power of Unarmed Security Guard No May 24 8:44am Latest Code Status on File Code Status [...] Comments Full Code Order Discussed With: Patient Advance Directive Response Recorded Date/ Time Advance Directives No May 11 1:53pm Living Will No November 13 8:29pm Power of Unarmed Security Guard No November 13 024 8:29pm Date Activated Date Inactivated Comments 11/05/2022 7:52 PM 11/15/2022 12:08 PM Question Answer Comments Full Code Order Discussed With: Patient Date Activated Date Inactivated Comments 11/05/2022 7:52 PM 11/15/2022 12:08 PM Question Answer Comments Full Code Order Discussed With: Patient Date Activated Date Inactivated Comments 10/20/2024 1:33 PM 10/27/2024 7:21 PM Question Answer Comments DNR Order Discussed With: Patient Date Activated Date Inactivated Comments 11/05/2022 7:52 PM 11/15/2022 12:08 PM Question Answer Comments Full Code Order Discussed With: Patient Date Activated Date Inactivated Comments 10/20/2024 1:33 PM 10/27/2024 7:21 PM Question Answer Comments DNR Order Discussed With: Patient Date Activated Date Inactivated Comments 11/05/2022 7:52 PM 11/15/2022 12:08 PM Question Answer Comments Full Code Order Discussed With: Patient Chief Complaint and Reason for Visit Chief Complaint VENOUS INSUFFICIENCY Chief Complaint VENOUS INSUFFICIENCY HEMORRHOIDS COLONOSCOPY Reason for Visit Bleeding internal he morrhoids Personal history of colonic polyps Chief Complaint SOB Family History No Family History Records Found Relationship Condition Age at Onset Recorded Date/T debby father Cardiac disease Unknown Todd workers' pneumoconiosis Unknown mother Rheumatoid arthritis Unknown sister Diabetes mellitus Unknown Malignant neoplasm Unknown brother Malignant neoplasm Unknown Health Concerns Infection Onset Date Last Indicated Resolved Time COVID-19 Rule-Out 11/05/2022 11/05/2022 11/05/2022 2:27 PM EST Summary Purpose Additional Source Comments Source Comments (unrecognize d section and content) In the event this informatio n is protected by the Federal Confidentiality of Alcohol and Drug Abuse Patient Records regulations: The Federal rules restrict any use of the information to criminally investigate or prosecute any alcohol or drug abuse patient.[facility] HospitalIn the event this information is protected by the Federal Confidentiality of Alcohol and Drug Abuse Patient Records regulations: The Federal rules restrict any use of the information to criminally investigate or prosecute any alcohol or drug abuse patient.[facility] HospitalIn the event this information is protected by the Federal Confidentiality of Alcohol and Drug Abuse Patient Records regulations: The Federal rules restrict any use of the information to criminally investigate or prosecute any alcohol or drug abuse patient.[facility] HospitalIn the event this information is protected by the Federal Confidentiality of Alcohol and Drug Abuse Patient Records regulations: The Federal rules restrict any use of the information to criminally investigate or prosecute any alcohol or drug abuse patient.[facility] HospitalIn the event this information is protected by the Federal Confidentiality of Alcohol and Drug Abuse Patient Records regulations: The Federal rules restrict any use of the information to criminally investigate or prosecute any alcohol or drug abuse patient.[facility] HospitalIn the event this information is protected by the Federal Confidentiality of Alcohol and Drug Abuse Patient Records regulations: The Federal rules restrict any use of the information to criminally investigate or prosecute any alcohol or drug abuse patient.[facility] HospitalIn the event this information is protected by the Federal Confidentiality of Alcohol and Drug Abuse Patient Records regulations: The Federal rules restrict any use of the information to criminally investigate or prosecute any alcohol or drug abuse patient.[facility] HospitalIn the event this information is protected by the Federal Confidentiality of Alcohol and Drug Abuse Patient Records regulations: The Federal rules restrict any use of the information to criminally investigate or prosecute any alcohol or drug abuse patient.[facility] HospitalIn the event this information is protected by the Federal Confidentiality of Alcohol and Drug Abuse Patient Records regulations: The Federal rules restrict any use of the information to criminally investigate or prosecute any alcohol or drug abuse patient.[facility] HospitalIn the event this information is protected by the Federal Confidentiality of Alcohol and Drug Abuse Patient Records regulations: The Federal rules restrict any use of the information to criminally investigate or prosecute any alcohol or drug abuse patient.[facility] HospitalIn the event this information is protected by the Federal Confidentiality of Alcohol and Drug Abuse Patient Records regulations: The Federal rules restrict any use of the information to criminally investigate or prosecute any alcohol or drug abuse patient.[facility] HospitalIn the event this information is protected by the Federal Confidentiality of Alcohol and Drug Abuse Patient Records regulations: The Federal rules restrict any use of the information to criminally investigate or prosecute any alcohol or drug abuse patient.[facility] HospitalIn the event this information is protected by the Federal Confidentiality of Alcohol and Drug Abuse Patient Records regulations: The Federal rules restrict any use of the information to criminally investigate or prosecute any alcohol or drug abuse patient.[facility] HospitalIn the event this information is protected by the Federal Confidentiality of Alcohol and Drug Abuse Patient Records regulations: The Federal rules restrict any use of the information to criminally investigate or prosecute any alcohol or drug abuse patient.[facility] HospitalIn the event this information is protected by the Federal Confidentiality of Alcohol and Drug Abuse Patient Records regulations: The Federal rules restrict any use of the information to criminally investigate or prosecute any alcohol or drug abuse patient.[facility] HospitalIn the event this information is protected by the Federal Confidentiality of Alcohol and Drug Abuse Patient Records regulations: The Federal rules restrict any use of the information to criminally investigate or prosecute any alcohol or drug abuse patient.[facility] HospitalIn the event this information is protected by the Federal Confidentiality of Alcohol and Drug Abuse Patient Records regulations: The Federal rules restrict any use of the information to criminally investigate or prosecute any alcohol or drug abuse patient.[facility] HospitalIn the event this information is protected by the Federal Confidentiality of Alcohol and Drug Abuse Patient Records regulations: The Federal rules restrict any use of the information to criminally investigate or prosecute any alcohol or drug abuse patient.[facility] HospitalIn the event this information is protected by the Federal Confidentiality of Alcohol and Drug Abuse Patient Records regulations: The Federal rules restrict any use of the information to criminally investigate or prosecute any alcohol or drug abuse patient.[facility] HospitalIn the event this information is protected by the Federal Confidentiality of Alcohol and Drug Abuse Patient Records regulations: The Federal rules restrict any use of the information to criminally investigate or prosecute any alcohol or drug abuse patient.[facility] HospitalIn the event this information is protected by the Federal Confidentiality of Alcohol and Drug Abuse Patient Records regulations: The Federal rules restrict any use of the information to criminally investigate or prosecute any alcohol or drug abuse patient.[facility] HospitalIn the event this information is protected by the Federal Confidentiality of Alcohol and Drug Abuse Patient Records regulations: The Federal rules restrict any use of the information to criminally investigate or prosecute any alcohol or drug abuse patient.[facility] HospitalIn the event this information is protected by the Federal Confidentiality of Alcohol and Drug Abuse Patient Records regulations: The Federal rules restrict any use of the information to criminally investigate or prosecute any alcohol or drug abuse patient.[facility] HospitalIn the event this information is protected by the Federal Confidentiality of Alcohol and Drug Abuse Patient Records regulations: The Federal rules restrict any use of the information to criminally investigate or prosecute any alcohol or drug abuse patient.[facility] HospitalIn the event this information is protected by the Federal Confidentiality of Alcohol and Drug Abuse Patient Records regulations: The Federal rules restrict any use of the information to criminally investigate or prosecute any alcohol or drug abuse patient.[facility] HospitalIn the event this information is protected by the Federal Confidentiality of Alcohol and Drug Abuse Patient Records regulations: The Federal rules restrict any use of the information to criminally investigate or prosecute any alcohol or drug abuse patient.[facility] HospitalIn the event this information is protected by the Federal Confidentiality of Alcohol and Drug Abuse Patient Records regulations: The Federal rules restrict any use of the information to criminally investigate or prosecute any alcohol or drug abuse patient.[facility] HospitalIn the event this information is protected by the Federal Confidentiality of Alcohol and Drug Abuse Patient Records regulations: The Federal rules restrict any use of the information to criminally investigate or prosecute any alcohol or drug abuse patient.[facility] HospitalIn the event this information is protected by the Federal Confidentiality of Alcohol and Drug Abuse Patient Records regulations: The Federal rules restrict any use of the information to criminally investigate or prosecute any alcohol or drug abuse patient.[facility] HospitalIn the event this information is protected by the Federal Confidentiality of Alcohol and Drug Abuse Patient Records regulations: The Federal rules restrict any use of the information to criminally investigate or prosecute any alcohol or drug abuse patient.[facility] HospitalIn the event this information is protected by the Federal Confidentiality of Alcohol and Drug Abuse Patient Records regulations: The Federal rules restrict any use of the information to criminally investigate or prosecute any alcohol or drug abuse patient.[facility] HospitalIn the event this information is protected by the Federal Confidentiality of Alcohol and Drug Abuse Patient Records regulations: The Federal rules restrict any use of the information to criminally investigate or prosecute any alcohol or drug abuse patient.[facility] HospitalIn the event this information is protected by the Federal Confidentiality of Alcohol and Drug Abuse Patient Records regulations: The Federal rules restrict any use of the information to criminally investigate or prosecute any alcohol or drug abuse patient.[facility] HospitalIn the event this information is protected by the Federal Confidentiality of Alcohol and Drug Abuse Patient Records regulations: The Federal rules restrict any use of the information to criminally investigate or prosecute any alcohol or drug abuse patient.[facility] HospitalIn the event this information is protected by the Federal Confidentiality of Alcohol and Drug Abuse Patient Records regulations: The Federal rules restrict any use of the information to criminally investigate or prosecute any alcohol or drug abuse patient.[facility] HospitalIn the event this information is protected by the Federal Confidentiality of Alcohol and Drug Abuse Patient Records regulations: The Federal rules restrict any use of the information to criminally investigate or prosecute any alcohol or drug abuse patient.[facility] HospitalIn the event this information is protected by the Federal Confidentiality of Alcohol and Drug Abuse Patient Records regulations: The Federal rules restrict any use of the information to criminally investigate or prosecute any alcohol or drug abuse patient.[facility] HospitalIn the event this information is protected by the Federal Confidentiality of Alcohol and Drug Abuse Patient Records regulations: The Federal rules restrict any use of the information to criminally investigate or prosecute any alcohol or drug abuse patient.[facility] HospitalIn the event this information is protected by the Federal Confidentiality of Alcohol and Drug Abuse Patient Records regulations: The Federal rules restrict any use of the information to criminally investigate or prosecute any alcohol or drug abuse patient.[facility] HospitalIn the event this information is protected by the Federal Confidentiality of Alcohol and Drug Abuse Patient Records regulations: The Federal rules restrict any use of the information to criminally investigate or prosecute any alcohol or drug abuse patient.[facility] HospitalIn the event this information is protected by the Federal Confidentiality of Alcohol and Drug Abuse Patient Records regulations: The Federal rules restrict any use of the information to criminally investigate or prosecute any alcohol or drug abuse patient.[facility] HospitalIn the event this information is protected by the Federal Confidentiality of Alcohol and Drug Abuse Patient Records regulations: The Federal rules restrict any use of the information to criminally investigate or prosecute any alcohol or drug abuse patient.[facility] HospitalIn the event this information is protected by the Federal Confidentiality of Alcohol and Drug Abuse Patient Records regulations: The Federal rules restrict any use of the information to criminally investigate or prosecute any alcohol or drug abuse patient.[facility] HospitalIn the event this information is protected by the Federal Confidentiality of Alcohol and Drug Abuse Patient Records regulations: The Federal rules restrict any use of the information to criminally investigate or prosecute any alcohol or drug abuse patient.[facility] HospitalIn the event this information is protected by the Federal Confidentiality of Alcohol and Drug Abuse Patient Records regulations: The Federal rules restrict any use of the information to criminally investigate or prosecute any alcohol or drug abuse patient.[facility] HospitalIn the event this information is protected by the Federal Confidentiality of Alcohol and Drug Abuse Patient Records regulations: The Federal rules restrict any use of the information to criminally investigate or prosecute any alcohol or drug abuse patient.[facility] HospitalIn the event this information is protected by the Federal Confidentiality of Alcohol and Drug Abuse Patient Records regulations: The Federal rules restrict any use of the information to criminally investigate or prosecute any alcohol or drug abuse patient.[facility] HospitalIn the event this information is protected by the Federal Confidentiality of Alcohol and Drug Abuse Patient Records regulations: The Federal rules restrict any use of the information to criminally investigate or prosecute any alcohol or drug abuse patient.[facility] HospitalIn the event this information is protected by the Federal Confidentiality of Alcohol and Drug Abuse Patient Records regulations: The Federal rules restrict any use of the information to criminally investigate or prosecute any alcohol or drug abuse patient.[facility] HospitalIn the event this information is protected by the Federal Confidentiality of Alcohol and Drug Abuse Patient Records regulations: The Federal rules restrict any use of the information to criminally investigate or prosecute any alcohol or drug abuse patient.[facility] HospitalIn the event this information is protected by the Federal Confidentiality of Alcohol and Drug Abuse Patient Records regulations: The Federal rules restrict any use of the information to criminally investigate or prosecute any alcohol or drug abuse patient.[facility] HospitalIn the event this information is protected by the Federal Confidentiality of Alcohol and Drug Abuse Patient Records regulations: The Federal rules restrict any use of the information to criminally investigate or prosecute any alcohol or drug abuse patient.[facility] HospitalIn the event this information is protected by the Federal Confidentiality of Alcohol and Drug Abuse Patient Records regulations: The Federal rules restrict any use of the information to criminally investigate or prosecute any alcohol or drug abuse patient.[facility] HospitalIn the event this information is protected by the Federal Confidentiality of Alcohol and Drug Abuse Patient Records regulations: The Federal rules restrict any use of the information to criminally investigate or prosecute any alcohol or drug abuse patient.[facility] HospitalIn the event this information is protected by the Federal Confidentiality of Alcohol and Drug Abuse Patient Records regulations: The Federal rules restrict any use of the information to criminally investigate or prosecute any alcohol or drug abuse patient.[facility] HospitalIn the event this information is protected by the Federal Confidentiality of Alcohol and Drug Abuse Patient Records regulations: The Federal rules restrict any use of the information to criminally investigate or prosecute any alcohol or drug abuse patient.[facility] HospitalIn the event this information is protected by the Federal Confidentiality of Alcohol and Drug Abuse Patient Records regulations: The Federal rules restrict any use of the information to criminally investigate or prosecute any alcohol or drug abuse patient.[facility] HospitalIn the event this information is protected by the Federal Confidentiality of Alcohol and Drug Abuse Patient Records regulations: The Federal rules restrict any use of the information to criminally investigate or prosecute any alcohol or drug abuse patient.[facility] HospitalIn the event this information is protected by the Federal Confidentiality of Alcohol and Drug Abuse Patient Records regulations: The Federal rules restrict any use of the information to criminally investigate or prosecute any alcohol or drug abuse patient.[facility] HospitalIn the event this information is protected by the Federal Confidentiality of Alcohol and Drug Abuse Patient Records regulations: The Federal rules restrict any use of the information to criminally investigate or prosecute any alcohol or drug abuse patient.[facility] HospitalIn the event this information is protected by the Federal Confidentiality of Alcohol and Drug Abuse Patient Records regulations: The Federal rules restrict any use of the information to criminally investigate or prosecute any alcohol or drug abuse patient.[facility] HospitalIn the event this information is protected by the Federal Confidentiality of Alcohol and Drug Abuse Patient Records regulations: The Federal rules restrict any use of the information to criminally investigate or prosecute any alcohol or drug abuse patient.[facility] HospitalIn the event this information is protected by the Federal Confidentiality of Alcohol and Drug Abuse Patient Records regulations: The Federal rules restrict any use of the information to criminally investigate or prosecute any alcohol or drug abuse patient.[facility] HospitalIn the event this information is protected by the Federal Confidentiality of Alcohol and Drug Abuse Patient Records regulations: The Federal rules restrict any use of the information to criminally investigate or prosecute any alcohol or drug abuse patient.[facility] HospitalIn the event this information is protected by the Federal Confidentiality of Alcohol and Drug Abuse Patient Records regulations: The Federal rules restrict any use of the information to criminally investigate or prosecute any alcohol or drug abuse patient.[facility] HospitalIn the event this information is protected by the Federal Confidentiality of Alcohol and Drug Abuse Patient Records regulations: The Federal rules restrict any use of the information to criminally investigate or prosecute any alcohol or drug abuse patient.[facility] HospitalIn the event this information is protected by the Federal Confidentiality of Alcohol and Drug Abuse Patient Records regulations: The Federal rules restrict any use of the information to criminally investigate or prosecute any alcohol or drug abuse patient.[facility] HospitalIn the event this information is protected by the Federal Confidentiality of Alcohol and Drug Abuse Patient Records regulations: The Federal rules restrict any use of the information to criminally investigate or prosecute any alcohol or drug abuse patient.[facility] HospitalIn the event this information is protected by the Federal Confidentiality of Alcohol and Drug Abuse Patient Records regulations: The Federal rules restrict any use of the information to criminally investigate or prosecute any alcohol or drug abuse patient.[facility] HospitalIn the event this information is protected by the Federal Confidentiality of Alcohol and Drug Abuse Patient Records regulations: The Federal rules restrict any use of the information to criminally investigate or prosecute any alcohol or drug abuse patient.[facility] HospitalIn the event this information is protected by the Federal Confidentiality of Alcohol and Drug Abuse Patient Records regulations: The Federal rules restrict any use of the information to criminally investigate or prosecute any alcohol or drug abuse patient.[facility] HospitalIn the event this information is protected by the Federal Confidentiality of Alcohol and Drug Abuse Patient Records regulations: The Federal rules restrict any use of the information to criminally investigate or prosecute any alcohol or drug abuse patient.[facility] HospitalIn the event this information is protected by the Federal Confidentiality of Alcohol and Drug Abuse Patient Records regulations: The Federal rules restrict any use of the information to criminally investigate or prosecute any alcohol or drug abuse patient.[facility] HospitalIn the event this information is protected by the Federal Confidentiality of Alcohol and Drug Abuse Patient Records regulations: The Federal rules restrict any use of the information to criminally investigate or prosecute any alcohol or drug abuse patient.[facility] HospitalIn the event this information is protected by the Federal Confidentiality of Alcohol and Drug Abuse Patient Records regulations: The Federal rules restrict any use of the information to criminally investigate or prosecute any alcohol or drug abuse patient.[facility] HospitalIn the event this information is protected by the Federal Confidentiality of Alcohol and Drug Abuse Patient Records regulations: The Federal rules restrict any use of the information to criminally investigate or prosecute any alcohol or drug abuse patient.[facility] HospitalIn the event this information is protected by the Federal Confidentiality of Alcohol and Drug Abuse Patient Records regulations: The Federal rules restrict any use of the information to criminally investigate or prosecute any alcohol or drug abuse patient.[facility] HospitalIn the event this information is protected by the Federal Confidentiality of Alcohol and Drug Abuse Patient Records regulations: The Federal rules restrict any use of the information to criminally investigate or prosecute any alcohol or drug abuse patient.[facility] HospitalIn the event this information is protected by the Federal Confidentiality of Alcohol and Drug Abuse Patient Records regulations: The Federal rules restrict any use of the information to criminally investigate or prosecute any alcohol or drug abuse patient.[facility] HospitalIn the event this information is protected by the Federal Confidentiality of Alcohol and Drug Abuse Patient Records regulations: The Federal rules restrict any use of the information to criminally investigate or prosecute any alcohol or drug abuse patient.[facility] HospitalIn the event this information is protected by the Federal Confidentiality of Alcohol and Drug Abuse Patient Records regulations: The Federal rules restrict any use of the information to criminally investigate or prosecute any alcohol or drug abuse patient.[facility] HospitalIn the event this information is protected by the Federal Confidentiality of Alcohol and Drug Abuse Patient Records regulations: The Federal rules restrict any use of the information to criminally investigate or prosecute any alcohol or drug abuse patient.[facility] HospitalIn the event this information is protected by the Federal Confidentiality of Alcohol and Drug Abuse Patient Records regulations: The Federal rules restrict any use of the information to criminally investigate or prosecute any alcohol or drug abuse patient.[facility] HospitalIn the event this information is protected by the Federal Confidentiality of Alcohol and Drug Abuse Patient Records regulations: The Federal rules restrict any use of the information to criminally investigate or prosecute any alcohol or drug abuse patient.[facility] HospitalIn the event this information is protected by the Federal Confidentiality of Alcohol and Drug Abuse Patient Records regulations: The Federal rules restrict any use of the information to criminally investigate or prosecute any alcohol or drug abuse patient.[facility] HospitalIn the event this information is protected by the Federal Confidentiality of Alcohol and Drug Abuse Patient Records regulations: The Federal rules restrict any use of the information to criminally investigate or prosecute any alcohol or drug abuse patient.[facility] HospitalIn the event this information is protected by the Federal Confidentiality of Alcohol and Drug Abuse Patient Records regulations: The Federal rules restrict any use of the information to criminally investigate or prosecute any alcohol or drug abuse patient.[facility] HospitalIn the event this information is protected by the Federal Confidentiality of Alcohol and Drug Abuse Patient Records regulations: The Federal rules restrict any use of the information to criminally investigate or prosecute any alcohol or drug abuse patient.[facility] HospitalIn the event this information is protected by the Federal Confidentiality of Alcohol and Drug Abuse Patient Records regulations: The Federal rules restrict any use of the information to criminally investigate or prosecute any alcohol or drug abuse patient.[facility] HospitalIn the event this information is protected by the Federal Confidentiality of Alcohol and Drug Abuse Patient Records regulations: The Federal rules restrict any use of the information to criminally investigate or prosecute any alcohol or drug abuse patient.[facility] HospitalIn the event this information is protected by the Federal Confidentiality of Alcohol and Drug Abuse Patient Records regulations: The Federal rules restrict any use of the information to criminally investigate or prosecute any alcohol or drug abuse patient.[facility] HospitalIn the event this information is protected by the Federal Confidentiality of Alcohol and Drug Abuse Patient Records regulations: The Federal rules restrict any use of the information to criminally investigate or prosecute any alcohol or drug abuse patient.[facility] HospitalIn the event this information is protected by the Federal Confidentiality of Alcohol and Drug Abuse Patient Records regulations: The Federal rules restrict any use of the information to criminally investigate or prosecute any alcohol or drug abuse patient.[facility] HospitalIn the event this information is protected by the Federal Confidentiality of Alcohol and Drug Abuse Patient Records regulations: The Federal rules restrict any use of the information to criminally investigate or prosecute any alcohol or drug abuse patient.[facility] HospitalIn the event this information is protected by the Federal Confidentiality of Alcohol and Drug Abuse Patient Records regulations: The Federal rules restrict any use of the information to criminally investigate or prosecute any alcohol or drug abuse patient.[facility] HospitalIn the event this information is protected by the Federal Confidentiality of Alcohol and Drug Abuse Patient Records regulations: The Federal rules restrict any use of the information to criminally investigate or prosecute any alcohol or drug abuse patient.[facility] HospitalIn the event this information is protected by the Federal Confidentiality of Alcohol and Drug Abuse Patient Records regulations: The Federal rules restrict any use of the information to criminally investigate or prosecute any alcohol or drug abuse patient.[facility] HospitalIn the event this information is protected by the Federal Confidentiality of Alcohol and Drug Abuse Patient Records regulations: The Federal rules restrict any use of the information to criminally investigate or prosecute any alcohol or drug abuse patient.[facility] HospitalIn the event this information is protected by the Federal Confidentiality of Alcohol and Drug Abuse Patient Records regulations: The Federal rules restrict any use of the information to criminally investigate or prosecute any alcohol or drug abuse patient.[facility] HospitalIn the event this information is protected by the Federal Confidentiality of Alcohol and Drug Abuse Patient Records regulations: The Federal rules restrict any use of the information to criminally investigate or prosecute any alcohol or drug abuse patient.[facility] HospitalIn the event this information is protected by the Federal Confidentiality of Alcohol and Drug Abuse Patient Records regulations: The Federal rules restrict any use of the information to criminally investigate or prosecute any alcohol or drug abuse patient.[facility] HospitalIn the event this information is protected by the Federal Confidentiality of Alcohol and Drug Abuse Patient Records regulations: The Federal rules restrict any use of the information to criminally investigate or prosecute any alcohol or drug abuse patient.[facility] HospitalIn the event this information is protected by the Federal Confidentiality of Alcohol and Drug Abuse Patient Records regulations: The Federal rules restrict any use of the information to criminally investigate or prosecute any alcohol or drug abuse patient.[facility] HospitalIn the event this information is protected by the Federal Confidentiality of Alcohol and Drug Abuse Patient Records regulations: The Federal rules restrict any use of the information to criminally investigate or prosecute any alcohol or drug abuse patient.[facility] HospitalIn the event this information is protected by the Federal Confidentiality of Alcohol and Drug Abuse Patient Records regulations: The Federal rules restrict any use of the information to criminally investigate or prosecute any alcohol or drug abuse patient.[facility] HospitalIn the event this information is protected by the Federal Confidentiality of Alcohol and Drug Abuse Patient Records regulations: The Federal rules restrict any use of the information to criminally investigate or prosecute any alcohol or drug abuse patient.[facility] HospitalIn the event this information is protected by the Federal Confidentiality of Alcohol and Drug Abuse Patient Records regulations: The Federal rules restrict any use of the information to criminally investigate or prosecute any alcohol or drug abuse patient.[facility] HospitalIn the event this information is protected by the Federal Confidentiality of Alcohol and Drug Abuse Patient Records regulations: The Federal rules restrict any use of the information to criminally investigate or prosecute any alcohol or drug abuse patient.[facility] HospitalIn the event this information is protected by the Federal Confidentiality of Alcohol and Drug Abuse Patient Records regulations: The Federal rules restrict any use of the information to criminally investigate or prosecute any alcohol or drug abuse patient.[facility] HospitalIn the event this information is protected by the Federal Confidentiality of Alcohol and Drug Abuse Patient Records regulations: The Federal rules restrict any use of the information to criminally investigate or prosecute any alcohol or drug abuse patient.[facility] HospitalIn the event this information is protected by the Federal Confidentiality of Alcohol and Drug Abuse Patient Records regulations: The Federal rules restrict any use of the information to criminally investigate or prosecute any alcohol or drug abuse patient.[facility] HospitalIn the event this information is protected by the Federal Confidentiality of Alcohol and Drug Abuse Patient Records regulations: The Federal rules restrict any use of the information to criminally investigate or prosecute any alcohol or drug abuse patient.[facility] HospitalIn the event this information is protected by the Federal Confidentiality of Alcohol and Drug Abuse Patient Records regulations: The Federal rules restrict any use of the information to criminally investigate or prosecute any alcohol or drug abuse patient.[facility] HospitalIn the event this information is protected by the Federal Confidentiality of Alcohol and Drug Abuse Patient Records regulations: The Federal rules restrict any use of the information to criminally investigate or prosecute any alcohol or drug abuse patient.[facility] HospitalIn the event this information is protected by the Federal Confidentiality of Alcohol and Drug Abuse Patient Records regulations: The Federal rules restrict any use of the information to criminally investigate or prosecute any alcohol or drug abuse patient.[facility] HospitalIn the event this information is protected by the Federal Confidentiality of Alcohol and Drug Abuse Patient Records regulations: The Federal rules restrict any use of the information to criminally investigate or prosecute any alcohol or drug abuse patient.[facility] HospitalIn the event this information is protected by the Federal Confidentiality of Alcohol and Drug Abuse Patient Records regulations: The Federal rules restrict any use of the information to criminally investigate or prosecute any alcohol or drug abuse patient.[facility] HospitalIn the event this information is protected by the Federal Confidentiality of Alcohol and Drug Abuse Patient Records regulations: The Federal rules restrict any use of the information to criminally investigate or prosecute any alcohol or drug abuse patient.[facility] HospitalIn the event this information is protected by the Federal Confidentiality of Alcohol and Drug Abuse Patient Records regulations: The Federal rules restrict any use of the information to criminally investigate or prosecute any alcohol or drug abuse patient.[facility] HospitalIn the event this information is protected by the Federal Confidentiality of Alcohol and Drug Abuse Patient Records regulations: The Federal rules restrict any use of the information to criminally investigate or prosecute any alcohol or drug abuse patient.[facility] HospitalIn the event this information is protected by the Federal Confidentiality of Alcohol and Drug Abuse Patient Records regulations: The Federal rules restrict any use of the information to criminally investigate or prosecute any alcohol or drug abuse patient.[facility] HospitalIn the event this information is protected by the Federal Confidentiality of Alcohol and Drug Abuse Patient Records regulations: The Federal rules restrict any use of the information to criminally investigate or prosecute any alcohol or drug abuse patient.[facility] HospitalIn the event this information is protected by the Federal Confidentiality of Alcohol and Drug Abuse Patient Records regulations: The Federal rules restrict any use of the information to criminally investigate or prosecute any alcohol or drug abuse patient.[facility] HospitalIn the event this information is protected by the Federal Confidentiality of Alcohol and Drug Abuse Patient Records regulations: The Federal rules restrict any use of the information to criminally investigate or prosecute any alcohol or drug abuse patient.[facility] HospitalIn the event this information is protected by the Federal Confidentiality of Alcohol and Drug Abuse Patient Records regulations: The Federal rules restrict any use of the information to criminally investigate or prosecute any alcohol or drug abuse patient.[facility] HospitalIn the event this information is protected by the Federal Confidentiality of Alcohol and Drug Abuse Patient Records regulations: The Federal rules restrict any use of the information to criminally investigate or prosecute any alcohol or drug abuse patient.[facility] HospitalIn the event this information is protected by the Federal Confidentiality of Alcohol and Drug Abuse Patient Records regulations: The Federal rules restrict any use of the information to criminally investigate or prosecute any alcohol or drug abuse patient.[facility] HospitalIn the event this information is protected by the Federal Confidentiality of Alcohol and Drug Abuse Patient Records regulations: The Federal rules restrict any use of the information to criminally investigate or prosecute any alcohol or drug abuse patient.[facility] HospitalIn the event this information is protected by the Federal Confidentiality of Alcohol and Drug Abuse Patient Records regulations: The Federal rules restrict any use of the information to criminally investigate or prosecute any alcohol or drug abuse patient.[facility] HospitalIn the event this information is protected by the Federal Confidentiality of Alcohol and Drug Abuse Patient Records regulations: The Federal rules restrict any use of the information to criminally investigate or prosecute any alcohol or drug abuse patient.[facility] HospitalIn the event this information is protected by the Federal Confidentiality of Alcohol and Drug Abuse Patient Records regulations: The Federal rules restrict any use of the information to criminally investigate or prosecute any alcohol or drug abuse patient.[facility] HospitalIn the event this information is protected by the Federal Confidentiality of Alcohol and Drug Abuse Patient Records regulations: The Federal rules restrict any use of the information to criminally investigate or prosecute any alcohol or drug abuse patient.[facility] HospitalIn the event this information is protected by the Federal Confidentiality of Alcohol and Drug Abuse Patient Records regulations: The Federal rules restrict any use of the information to criminally investigate or prosecute any alcohol or drug abuse patient.[facility] HospitalIn the event this information is protected by the Federal Confidentiality of Alcohol and Drug Abuse Patient Records regulations: The Federal rules restrict any use of the information to criminally investigate or prosecute any alcohol or drug abuse patient.[facility] HospitalIn the event this information is protected by the Federal Confidentiality of Alcohol and Drug Abuse Patient Records regulations: The Federal rules restrict any use of the information to criminally investigate or prosecute any alcohol or drug abuse patient.[facility] HospitalIn the event this information is protected by the Federal Confidentiality of Alcohol and Drug Abuse Patient Records regulations: The Federal rules restrict any use of the information to criminally investigate or prosecute any alcohol or drug abuse patient.[facility] HospitalIn the event this information is protected by the Federal Confidentiality of Alcohol and Drug Abuse Patient Records regulations: The Federal rules restrict any use of the information to criminally investigate or prosecute any alcohol or drug abuse patient.[facility] HospitalIn the event this information is protected by the Federal Confidentiality of Alcohol and Drug Abuse Patient Records regulations: The Federal rules restrict any use of the information to criminally investigate or prosecute any alcohol or drug abuse patient.[facility] Reason for Visit (unrecogniz ed section and content) Reason Comments Established Patient Specialty Diagnoses / Procedures Referred By Griselda t Referred To Contact Vascular Surgery Diagnoses Venous insufficiency Procedures CONSULT TO VASCULAR SURGERY OFFICE/OUTPATIENT NEW HIGH MDM 60 MINUTES Tu Canela MD [address] [place] [address] Phone: tel: fax: Referral ID Status Reason Start Date Expiration Date V isits Requested Visits Authorized [id number] Closed PCP Requested Referral 01/26/2025 01/26/2026 1 1 Reason Comments Follow Up Specialty Diagnoses / Procedures Referred By Contac t Referred To Contact Diagnoses Lacunar stroke (HCC) Procedures PROVIDER ORDERED FOLLOW UP OFFICE/OUTPATIENT NEW HIGH [facility] 60 MINUTES Aylin Paz, LIABILITY CLAIMS EXAMINER.[employer] [address] [place] [address] Phone: tel: fax: Referral ID Status Reason Start Date Expiration Date V isits Requested Visits Authorized [id number] Closed PCP Requested Referral 02/01/2025 11/03/2025 [address] Specialty Diagnoses / Procedures Referred By Griselda t Referred To Contact CT IMAGING Diagnoses Malignant neoplasm of upper-outer quadrant of left breast in female, estrogen receptor positive (HCC) Abdominal mass of other site Intra-abdominal and pelvic swelling, mass and lump, unspecified site Procedures CT ABD/PEL W IVCON CT ABD & PELVIS W/CONTRAST Tu Canela MD [address] [place] [address] Ct Imaging Referral ID Status Reason Start Date Expiration Date V isits Requested Visits Authorized [id number] Closed Auto-Generate d Referral 05/10/2022 06/09/2023 2 2 Reason Comments Colonoscopy appt Reason Comments Radiology Mammogram Specialty Diagnoses / Procedures Referred By Griselda t Referred To Contact BR IMAGING Diagnoses Malignant neoplasm of upper-outer quadrant of left breast in female, estrogen receptor positive (HCC) Encounter for screening mammogram for high-risk patient Procedures TITO SCREENING SCREENING MAMMOGRAPHY BI 2-VIEW BREAST INC Nevin Tilley, LIABILITY CLAIMS EXAMINER.[employer] [address] [place] [address] [facility] [address] [place] [address] Referral ID Status Reason Start Date Expiration Date V isits Requested Visits Authorized [id number] Closed Auto-Generate d Referral 01/05/2022 02/04/2023 1 1 Reason Comments Results Reason Comments Follow Up still feels mass in abd Edema swelling in her feet increasing again Reason Comments Established Patient Reason Comments Hypertension F/U Reason Comments Blood Pressure Check Reason Comments Blood Pressure Reason Comments FYI-No Action Needed Reason Onset Date Comments Transition Of Care 11/16/2022 TCM Initial O utreach: [facility] 11/15/22, Cellulitis of right lower leg Reason [...] Check Appointment Reason Comments Insurance Authorization Compression [facility] Reason Comments Follow Up Reason Comments Consult Hernia Specialty Diagnoses / Procedures Referred By Griselda french Referred To Contact General Surgery Diagnoses Hernia of abdominal wall Procedures CONSULT TO GENERAL SURGERY OFFICE/OUTPATIENT NEW HIGH MDM 60-74 MINUTES Tu Canela MD [address] [place] [address] Referral ID Status Reason Start Date Expiration Date Visits Requested Visits Authorized [id number] Pending Review PCP Requested Referral 03/02/2023 03/01/2024 1 1 Reason Onset Date Comments Community Monitoring Outreach 03/19/2023 Te lephonic Outreach CDM Home Monitoring Reason Comments 10 month check Reason Onset Date Comments Community Monitoring Outreach 04/16/2023 Te leph[facility] Outreach CDM Home Monitoring Reason Comments Follow Up Reason Comments Wound Check Right dorsal foot Reason Comments pre-procedure call Reason Onset Date Comments CDM 05/22/2023 Telephonic Outre ach Reason Onset Date Comments CDM 05/23/2023 Telephonic Outre ach Reason Comments Follow Up Hernia follow up Reason Comments Recheck 1 month follow up Reason Onset Date Comments CDM 06/25/2023 Telephonic Outre ach Reason Onset Date Comments CDM 06/26/2023 Telephonic Outre ach Reason Onset Date Comments CDM 07/24/2023 Telephonic Outre ach Reason Comments Hypertension Medication follow up Reason Onset Date Comments CDM 08/17/2023 Telephonic Outre ach Reason Onset Date Comments CDM 09/24/2023 Telephonic Outre ach Reason Onset Date Comments CDM 10/23/2023 Telephonic Outre ach Reason Onset Date Comments CDM 10/24/2023 Telephonic Outre ach Reason Onset Date Comments Refill Request 12/17/2023 Reason Onset Date Comments CDM 01/09/2024 Telephonic Outre ach Reason Onset Date Comments CDM 01/10/2024 Telephonic Outre ach Reason Onset Date Comments CDM 01/24/2024 Telephonic Outre ach Reason Onset Date Comments CDM 01/25/2024 Telephonic Outre ach Reason Onset Date Comments Refill Request 01/25/2024 Reason Onset Date Comments Refill Request 02/20/2024 Reason Onset Date Comments CDM 02/20/2024 Telephonic Outre ach Reason Onset Date Comments Refill Request 03/17/2024 Reason Comments Recheck BP check Reason Onset Date Comments CDM 04/02/2024 Telephonic Outre ach Reason Onset Date Comments CDM 04/30/2024 Telephonic Outre ach Reason Comments Medication Question Reason Onset Date Comments Community Monitoring Outreach 06/04/2024 Reason Onset Date Comments Population Health Navigation Outreach 06/05/2024 [place] AWV/HCC and care gaps Reason Onset Date Comments Refill Request 06/16/2024 Reason Onset Date Comments CDM 06/20/2024 Telephonic Outre ach Reason Onset Date Comments CDM 06/21/2024 Telephonic Outre ach Reason Comments Acute Visit Low bp for the last 2 weeks Reason Onset Date Comments CDM 07/03/2024 Telephonic Outre ach Reason Onset Date Comments Allied Health Visit 07/04/2024 Medication A dherence Outreach Reason Comments Recheck 1 week BP check Reason Comments Results Reason Onset Date Comments Refill Request 07/22/2024 Reason Onset Date Comments CDM 07/25/2024 Telephonic Outre ach Reason Onset Date Comments CDM 07/28/2024 Telephonic Outre ach Reason Onset Date Comments CDM 08/08/2024 Telephonic Outre ach Reason Onset Date Comments Recheck 1 week follow up Immunizations 08/12/2024 Flu vaccination Reason Onset Date Comments Refill Request 08/25/2024 Reason Onset Date Comments CDM 09/05/2024 Telephonic Outre ach Reason Onset Date Comments CD 09/08/2024 Telephonic Outre ach Reason Comments Patient Call Reason Onset Date Comments CD 09/22/2024 Telephonic Outre ach Reason Comments Orders Handicap Placard/[place]mann dicap credit collection associate Plate Reason Comments Ambulatory Social Work Transition of Car e Reason Onset Date Comments Transition Of Care 10/28/2024 Initial outre ach call- Patient discharged from [facility] on 10-27-24 Reason Comments Patient Update [facility] needs additional information faxed Reason Comments Hospital F/U [facility] then daugherty sferred to [facility], dx: CVA Reason Comments home health calling, PCP to follow patie nt Reason Comments skilled nurse plan of care Orders Reason Onset Date Comments Transition Of Care 11/07/2024 Day 11 follow up phone call - patient discharged from [facility] on 10-27-24 Reason Comments request verbal order Reason Onset Date Comments Transition Of Care 11/10/2024 Day 14 follow up phone call - Discharge date [facility] 10/27/24 Reason Onset Date Comments Transition Of Care 11/11/2024 Escalation fo llow up call Reason Comments Physical Therapy Plan of Care Reason Comments OT Plan of Care Reason Onset Date Comments Transition Of Care 11/14/2024 Day 18 outrea call - patient discharged from [facility] date of 10-27-24 Reason Onset Date Comments Transition Of Care 11/21/2024 Day 25 Outrea Call - Discharged from [facility] date of 10-27-25 Reason Comments [facility] verbal oder needed Reason Comments Recheck 4 week bp check Reason Onset Date Comments Refill Request 01/16/2025 Reason Comments Blood Pressure Edema States that doesn't wear compression stockings. At this point doesn't have any that fit. Shortness of Breath Last 3-4 days. Produ ctive but thick she is having trouble getting it up. Reason Comments Recheck 3 month follow up Reason Comments Appointment Reason Comments Radiology Pre Procedure Instructions Reason Comments Procedure Left leg GSV EVLT Care Teams (unrecognized sec tion and content) Crop Quantitative Geneticist Relationship Specialty Start Date End Date Tu Canela MD [address] [place] [address] PCP - General Family Practice 07/08/12 Crop Quantitative Geneticist Relationship Specialty Start Date End Date Tu Canela MD [address] [place] [address] PCP - General Family Practice 07/08/12 Crop Quantitative Geneticist Relationship Specialty Start Date End Date Tu Canela MD [address] [place] [address] PCP - General Family Practice 07/08/12 Crop Quantitative Geneticist Relationship Specialty Start Date End Date Tu Canela MD [address] [place] [address] PCP - General Family Practice 07/08/12 Crop Quantitative Geneticist Relationship Specialty Start Date End Date Tu Canela MD [address] [place] [address] PCP - General Family Practice 07/08/12 Crop Quantitative Geneticist Relationship Specialty Start Date End Date Tu Canela MD [address] [place] [address] PCP - General Family Practice 07/08/12 Crop Quantitative Geneticist Relationship Specialty Start Date End Date Tu Canela MD [address] [place] [address] PCP - General Family Practice 07/08/12 Crop Quantitative Geneticist Relationship Specialty Start Date End Date Tu Canela MD [address] [place] [address] PCP - General Family Practice 07/08/12 Crop Quantitative Geneticist Relationship Specialty Start Date End Date Tu Canela MD [address] [place] [address] PCP - General Family Practice 07/08/12 Crop Quantitative Geneticist Relationship Specialty Start Date End Date Tu Canela MD [address] [place] [address] PCP - General Family Medicine 07/08/12 Crop Quantitative Geneticist Relationship Specialty Start Date End Date Tu Canela MD [address] [place] [address] PCP - General Family Medicine 07/08/12 Team Status: Active Member Role Status Dates Dr. Tu Canela MD Family Provider Active Dr. Tu Canela MD Primary Care Provider Active Team Status: Inactive Member Role Status Dates Dr. Tu Canela MD Primary Care Provider Active Dr. Aleksandr Tim MD Attending Provider, Referring Pro vider Active Team Status: Active Member Role Status Dates Dr. Tu Canela MD Primary Care Provider Active Dr. Aleksandr Tim MD Attending Provider Active Team Status: Inactive Member Role Status Dates Dr. Tu Canela MD Primary Care Provider Active Dr. Aleksandr Tim MD Attending Provider Active Crop Quantitative Geneticist Relationship Specialty Start Date End Date Tu Canela MD [address] [place] [address] PCP - General Family Medicine 07/08/12 Crop Quantitative Geneticist Relationship Specialty Start Date End Date Tu Canela MD [address] [place] [address] PCP - General Family Medicine 07/08/12 Crop Quantitative Geneticist Relationship Specialty Start Date End Date Tu Canela MD [address] [place] [address] PCP - General Family Medicine 07/08/12 Crop Quantitative Geneticist Relationship Specialty Start Date End Date Tu Canela MD [address] [place] [address] PCP - General Family Medicine 07/08/12 Guerda Francisco, HERNESTO [address] [id number] Section Laborer 01/18/23 Crop Quantitative Geneticist Relationship Specialty Start Date End Date Tu Canela MD [address] [place] [address] PCP - General Family Medicine 07/08/12 Crop Quantitative Geneticist Relationship Specialty Start Date End Date Tu Canela MD [address] [place] [address] PCP - General Family Medicine 07/08/12 Guerda Francisco RN [address] [place] [address] Section Laborer 01/18/23 Crop Quantitative Geneticist Relationship Specialty Start Date End Date Tu Canela MD [address] [place] [address] PCP - General Family Medicine 07/08/12 Guerda Francisco RN [address] [place] [address] Section Laborer 01/18/23 Crop Quantitative Geneticist Relationship Specialty Start Date End Date Tu Canela MD [address] [place] [address] PCP - General Family Medicine 07/08/12 Guerda Francisco RN [address] [place] [address] Section Laborer 01/18/23 Crop Quantitative Geneticist Relationship Specialty Start Date End Date Tu Canela MD [address] [place] [address] PCP - General Family Medicine 07/08/12 Guerda Francisco RN [address] [facility] [place] [address] Section Laborer 01/18/23 Crop Quantitative Geneticist Relationship Specialty Start Date End Date Tu Canela MD [address] [place] [address] PCP - General Family Medicine 07/08/12 Guerda Francisco RN [address] [place] [address] Section Laborer 01/18/23 Crop Quantitative Geneticist Relationship Specialty Start Date End Date Tu Canela MD [address] [place] [address] PCP - General Family Medicine 07/08/12 Guerda Francisco RN [address] [place] [address] Section Laborer 01/18/23 Crop Quantitative Geneticist Relationship Specialty Start Date End Date Tu Canela MD [address] [place] [address] PCP - General Family Medicine 07/08/12 Guerda Francisco RN [address] [place] [address] Section Laborer 01/18/23 Crop Quantitative Geneticist Relationship Specialty Start Date End Date Tu Canela MD [address] [place] [address] PCP - General Family Medicine 07/08/12 Guerda Francisco RN [address] [place] [address] Section Laborer 01/18/23 Crop Quantitative Geneticist Relationship Specialty Start Date End Date Tu Canela MD [address] [place] [address] PCP - General Family Medicine 07/08/12 Guerda Francisco RN [address] [place] [address] Section Laborer 01/18/23 Crop Quantitative Geneticist Relationship Specialty Start Date End Date Tu Canela MD [address] [place] [address] PCP - General Family Medicine 07/08/12 Eliseo Michele, molybdenum steamer operatorSection Laborer 04/23/23 Crop Quantitative Geneticist Relationship Specialty Start Date End Date Tu Canela MD [address] [place] [address] PCP - General Family Medicine 07/08/12 Eliseo Michele, molybdenum steamer operatorSection Laborer 04/23/23 Crop Quantitative Geneticist Relationship Specialty Start Date End Date Tu Canela MD [address] [place] [address] PCP - General Family Medicine 07/08/12 Eliseo Michele, molybdenum steamer operatorSection Laborer 04/23/23 Crop Quantitative Geneticist Relationship Specialty Start Date End Date Tu Canela MD [address] [place] [address] PCP - General Family Medicine 07/08/12 Eliseo Michele, molybdenum steamer operatorSection Laborer 04/23/23 Crop Quantitative Geneticist Relationship Specialty Start Date End Date Tu Canela MD [address] [place] [address] PCP - General Family Medicine 07/08/12 Eliseo Michele, molybdenum steamer operatorSection Laborer 04/23/23 Crop Quantitative Geneticist Relationship Specialty Start Date End Date Tu Canela MD [address] [place] [address] PCP - General Family Medicine 07/08/12 Eliseo Michele, molybdenum steamer operatorSection Laborer 04/23/23 Crop Quantitative Geneticist Relationship Specialty Start Date End Date Tu Canela MD [address] [place] [address] PCP - General Family Medicine 07/08/12 Eliseo Micheel, molybdenum steamer operatorSection Laborer 04/23/23 Crop Quantitative Geneticist Relationship Specialty Start Date End Date Tu Canela MD [address] [place] [address] PCP - General Family Medicine 07/08/12 Eliseo Michele, molybdenum steamer operatorSection Laborer 04/23/23 Crop Quantitative Geneticist Relationship Specialty Start Date End Date Tu Canela MD [address] [facility] [place] [address] PCP - General Family Medicine 07/08/12 Eliseo Michele, molybdenum steamer operatorSection Laborer 04/23/23 Crop Quantitative Geneticist Relationship Specialty Start Date End Date Tu Canela MD [address] [facility] [place] [address] PCP - General Family Medicine 07/08/12 Eliseo Michele, molybdenum steamer operatorSection Laborer 04/23/23 Crop Quantitative Geneticist Relationship Specialty Start Date End Date Tu Canela MD [address] [facility] [place] [address] PCP - General Family Medicine 07/08/12 Eliseo Michele, molybdenum steamer operatorSection Laborer 04/23/23 Crop Quantitative Geneticist Relationship Specialty Start Date End Date Tu Canela MD [address] [place] [address] PCP - General Family Medicine 07/08/12 Eliseo Michele, molybdenum steamer operatorSection Laborer 04/23/23 Crop Quantitative Geneticist Relationship Specialty Start Date End Date Tu Canela MD [address] [facility] [place] [address] PCP - General Family Medicine 07/08/12 Eliseo Michele, molybdenum steamer operatorSection Laborer 04/23/23 Crop Quantitative Geneticist Relationship Specialty Start Date End Date Tu Canela MD [address] [place] [address] PCP - General Family Medicine 07/08/12 Eliseo Michele, molybdenum steamer operatorSection Laborer 04/23/23 Team Status: Active Member Role Status Dates Dr. Tu Canela MD Family Provider Active M Davin Brown PA, PA Primary Care Provider Active Team Status: Inactive Member Role Status Dates Dr. Hector Kerns , DO Emergency Provider Active M Davin YAN, PA Primary Care Provider Active Crop Quantitative Geneticist Relationship Specialty Start Date End Date Tu Canela MD [address] [place] [address] PCP - General Family Medicine 07/08/12 Eliseo Michele, molybdenum steamer operatorSection Laborer 04/23/23 Crop Quantitative Geneticist Relationship Specialty Start Date End Date Tu Canela MD [address] [place] [address] PCP - General Family Medicine 07/08/12 Eliseo Michele, molybdenum steamer operatorSection Laborer 04/23/23 Crop Quantitative Geneticist Relationship Specialty Start Date End Date Tu Canela MD [address] [place] [address] PCP - General Family Medicine 07/08/12 Eliseo Michele, molybdenum steamer operatorSection Laborer 04/23/23 Crop Quantitative Geneticist Relationship Specialty Start Date End Date Tu Canela MD [address] [place] [address] PCP - General Family Medicine 07/08/12 Eliseo Michele, molybdenum steamer operatorSection Laborer 04/23/23 Crop Quantitative Geneticist Relationship Specialty Start Date End Date Tu Canela MD [address] [place] [address] PCP - General Family Medicine 07/08/12 Eliseo Michele, molybdenum steamer operatorSection Laborer 04/23/23 Crop Quantitative Geneticist Relationship Specialty Start Date End Date Tu Canela MD [address] [place] [address] PCP - General Family Medicine 07/08/12 Eliseo Michele, molybdenum steamer operatorSection Laborer 04/23/23 Crop Quantitative Geneticist Relationship Specialty Start Date End Date Tu Canela MD [address] [place], [place] 939[address] PCP - General Family Medicine 07/08/12 Eliseo Michele, molybdenum steamer operatorSection Laborer 04/23/23 Crop Quantitative Geneticist Relationship Specialty Start Date End Date Tu Canela MD [address] [place], [place] [address] PCP - General Family Medicine 07/08/12 Eliseo Michele, molybdenum steamer operatorSection Laborer 04/23/23 Zenaida Jessica, HERNESTO [address] [place] [address] Primary Care Obiee Obia Solution Architect 11/09/23 12/11/23 Crop Quantitative Geneticist Relationship Specialty Start Date End Date Tu Canela MD [address] [place] [address] PCP - General Family Medicine 07/08/12 Crop Quantitative Geneticist Relationship Specialty Start Date End Date Tu Canela MD [address] [place], [place] [address] PCP - General Family Medicine 07/08/12 Eliseo Michele, molybdenum steamer operatorSection Laborer 04/23/23 Crop Quantitative Geneticist Relationship Specialty Start Date End Date Tu Canela MD [address] [place], [place] [address] PCP - General Family Medicine 07/08/12 Eliseo Michele, molybdenum steamer operatorSection Laborer 04/23/23 Rosie Syed APRN.COUNTY SHERIFF [address] [place] [address] Product Test Engineer Family Medicine 10/20/24 Shobha Morel APRN.COUNTY SHERIFF [address] [facility] [place] [address] Product Test Engineer Family Medicine 10/20/24 Eliseo Michele, molybdenum steamer operator Obiee Obia Solution Architect 10/28/24 Sammy Sampson, CLARENCE Yarn Spinner 10/28/24 Crop Quantitative Geneticist Relationship Specialty Start Date End Date Tu Canela MD [address] [place] [address] PCP - General Family Medicine 07/08/12 Eliseo Michele, molybdenum steamer operatorSection Laborer 04/23/23 Rosie Syed, LIABILITY CLAIMS EXAMINER.COUNTY SHERIFF [address] [facility] [place] [address] Product Test Engineer [facility] 10/20/24 Shobha Morel LIABILITY CLAIMS EXAMINER.COUNTY SHERIFF [address] [place] [address] Product Test Engineer Family Medicine 10/20/24 Eliseo Michele, molybdenum steamer operator Obiee Obia Solution Architect 10/28/24 Sammy Sampson, CLARENCE Yarn Spinner 10/28/24 Crop Quantitative Geneticist Relationship Specialty Start Date End Date Tu Canela MD [address] [place] [address] PCP - General Family Medicine 07/08/12 Eliseo Michele, molybdenum steamer operatorSection Laborer 04/23/23 Rosie Syed, LIABILITY CLAIMS EXAMINER.COUNTY SHERIFF [address] [facility] [place] [address] Product Test Engineer [facility] 10/20/24 Shobha Morel LIABILITY CLAIMS EXAMINER.COUNTY SHERIFF [address] [place] [address] Product Test Engineer Family Medicine 10/20/24 Eliseo Michele, molybdenum steamer operator Obiee Obia Solution Architect 10/28/24 Sammy Sampson, BUSINESS CONTINUITY MANAGER Yarn Spinner 10/28/24 Crop Quantitative Geneticist Relationship Specialty Start Date End Date Tu Canela MD [address] [facility] [place] [address] PCP - General Family Medicine 07/08/12 Eliseo Michele, molybdenum steamer operatorSection Laborer 04/23/23 Rosie Syed, LIABILITY CLAIMS EXAMINER.COUNTY SHERIFF [address] [facility] [place] [address] Product Test Engineer Family Medicine 10/20/24 Shobha Morel LIABILITY CLAIMS EXAMINER.COUNTY SHERIFF [address] [facility] [place] [address] Product Test Engineer Family Medicine 10/20/24 Eliseo Michele, molybdenum steamer operator Obiee Obia Solution Architect 10/28/24 Sammy Sampson, BUSINESS CONTINUITY MANAGER Yarn Spinner 10/28/24 Crop Quantitative Geneticist Relationship Specialty Start Date End Date Tu Canela MD [address] [facility] [place] [address] PCP - General Family Medicine 07/08/12 Eliseo Michele, molybdenum steamer operatorSection Laborer 04/23/23 Rosie Syed, LIABILITY CLAIMS EXAMINER.COUNTY SHERIFF [address] [facility] [place] [address] Product Test Engineer Family Medicine 10/20/24 Shobha Morel LIABILITY CLAIMS EXAMINER.COUNTY SHERIFF [address] [facility] [place] [address] Product Test Engineer Family Medicine 10/20/24 Eliseo Michele, molybdenum steamer operator Obiee Obia Solution Architect 10/28/24 Sammy Sampson, CLARENCE Yarn Spinner 10/28/24 Crop Quantitative Geneticist Relationship Specialty Start Date End Date Tu Canela MD [address] [place] [address] PCP - General Family Medicine 07/08/12 Rosie Syed, LIABILITY CLAIMS EXAMINER.COUNTY SHERIFF [address] [facility] [place] [place] [address] Product Test Engineer [facility] 10/20/24 Shobha Morel LIABILITY CLAIMS EXAMINER.COUNTY SHERIFF [address] [place] [address] Product Test Engineer Family Medicine 10/20/24 Eliseo Michele, molybdenum steamer operator Obiee Obia Solution Architect 10/28/24 Sammy Sampson LSW Yarn Spinner 10/28/24 Crop Quantitative Geneticist Relationship Specialty Start Date End Date Tu Canela MD [address] [place] [address] PCP - General Family Medicine 07/08/12 Rosie Syed LIABILITY CLAIMS EXAMINER.COUNTY SHERIFF [address] [facility] [place] [address] Product Test Engineer [facility] 10/20/24 Eliseo Michele, molybdenum steamer operator Obiee Obia Solution Architect 10/28/24 Crop Quantitative Geneticist Relationship Specialty Start Date End Date Tu Canela MD [address] [place] [address] PCP - General Family Medicine 07/08/12 Rosie Syed LIABILITY CLAIMS EXAMINER.COUNTY SHERIFF [address] [facility] [place] [address] Product Test Engineer [facility] 10/20/24 Eliseo Michele, molybdenum steamer operator Obiee Obia Solution Architect 10/28/24 Crop Quantitative Geneticist Relationship Specialty Start Date End Date Tu Canela MD [address] [place] [address] PCP - General Family Medicine 07/08/12 Rosie Syed APRN.COUNTY SHERIFF [address] [place] [address] Product Test Engineer Family Medicine 10/20/24 Shobha Morel LIABILITY CLAIMS EXAMINER.COUNTY SHERIFF [address] [facility] [place] [address] Product Test Engineer Family Medicine 10/20/24 Eliseo Michele, molybdenum steamer operator Obiee Obia Solution Architect 10/28/24 Crop Quantitative Geneticist Relationship Specialty Start Date End Date Tu Canela MD [address] [facility] [place] [address] PCP - General Family Medicine 07/08/12 Rosie Syed, LIABILITY CLAIMS EXAMINER.COUNTY SHERIFF [address] [place] [address] [facility] 10/20/24 Shobha Morel LIABILITY CLAIMS EXAMINER.COUNTY SHERIFF [address] [place] [address] Product Test Engineer [facility] 10/20/24 Eliseo Michele, molybdenum steamer operator Obiee Obia Solution Architect 10/28/24 Sammy Sampson LSW Yarn Spinner 10/28/24 11/09/24 Crop Quantitative Geneticist Relationship Specialty Start Date End Date Tu Canela MD [address] [facility] [place] [address] PCP - General Family Medicine 07/08/12 Rosie Syed LIABILITY CLAIMS EXAMINER.COUNTY SHERIFF [address] [place] [address] Product Test Engineer [facility] 10/20/24 Shobha Morel APRN.COUNTY SHERIFF [address] [facility] [place] [address] Product Test Engineer [facility] 10/20/24 Eliseo Michele, molybdenum steamer operator Obiee Obia Solution Architect 10/28/24 Crop Quantitative Geneticist Relationship Specialty Start Date End Date Tu Canela MD [address] [facility] [place] [address] PCP - General Family Medicine 07/08/12 Rosie Syed APRN.COUNTY SHERIFF [address] [place] [address] [facility] 10/20/24 Shobha Morel APRN.COUNTY SHERIFF [address] [facility] [place] [address] [facility] 10/20/24 Eliseo Michele, molybdenum steamer operator Obiee Obia Solution Architect 10/28/24 Crop Quantitative Geneticist Relationship Specialty Start Date End Date Tu Canela MD [address] [facility] [place] [address] PCP - General Family Medicine 07/08/12 Rosie Syed APRN.COUNTY SHERIFF [address] [place] [address] Product Test Engineer Family Medicine 10/20/24 Shobha Morel APRN.COUNTY SHERIFF [address] [facility] [place] [address] Product Test Engineer Family Medicine 10/20/24 Eliseo Michele, molybdenum steamer operator Obiee Obia Solution Architect 10/28/24 Crop Quantitative Geneticist Relationship Specialty Start Date End Date Tu Canela MD [address] [facility] [place] [address] PCP - General Family Medicine 07/08/12 Rosie Syed APRN.COUNTY SHERIFF [address] [place] [address] [facility] 10/20/24 Shobha Morel APRN.COUNTY SHERIFF [address] [facility] [place] [address] [facility]ly [facility] 10/20/24 Eliseo Michele, molybdenum steamer operator Obiee Obia Solution Architect 10/28/24 Crop Quantitative Geneticist Relationship Specialty Start Date End Date Tu Canela MD [address] [facility] [place] [address] PCP - General Family Medicine 07/08/12 Rosie Syed APRN.COUNTY SHERIFF [address] [place] [address] [facility]ly [facility] 10/20/24 Shobha Morel APRN.COUNTY SHERIFF [address] [facility] [place] [address] Formerly [facility] 10/20/24 Crop Quantitative Geneticist Relationship Specialty Start Date End Date Tu Canela MD [address] [facility] [place] [address] PCP - General Family Medicine 07/08/12 Rosie Syed APRN.COUNTY SHERIFF [address] [place] [address] Formerly [facility] 10/20/24 Shobha Morel APRN.COUNTY SHERIFF [address] [facility] [place] [address] [facility] 10/20/24 Crop Quantitative Geneticist Relationship Specialty Start Date End Date Tu Canela MD [address] [facility] [place] [address] PCP - General Family Medicine 07/08/12 Rosie Syed APRN.COUNTY SHERIFF [address] [place] [address] [facility] 10/20/24 Shobha Morel APRN.COUNTY SHERIFF [address] [facility] [place] [address] [facility] 10/20/24 Crop Quantitative Geneticist Relationship Specialty Start Date End Date Tu Canela MD [address] [facility] [place] [address] PCP - General Family Medicine 07/08/12 Rosie Syed APRN.COUNTY SHERIFF [address] [place] [address] Product Test [facility] Medicine 10/20/24 Shobha Morel APRN.COUNTY SHERIFF [address] [facility] [place] [address] Product Test [facility]University [facility] Medicine 10/20/24 Crop Quantitative Geneticist Relationship Specialty Start Date End Date Tu Canela MD [address] [facility] [place] [address] PCP - General Family Medicine 07/08/12 Rosie Syed LIABILITY CLAIMS EXAMINER.COUNTY SHERIFF [address] [place] [address] Product Test Engineer [facility] 10/20/24 Shobha Morel APRN.COUNTY SHERIFF [address] [facility] [place] [place] [address] Product Test Engineer Family Medicine 10/20/24 Crop Quantitative Geneticist Relationship Specialty Start Date End Date Tu Canela MD [address] [place] [address] PCP - General Family Medicine 07/08/12 Rosie Syed APRN.COUNTY SHERIFF [address] [place] [address] Product Test Engineer Family Medicine 10/20/24 Shobha Morel APRN.COUNTY SHERIFF [address] [place] [address] [facility] 10/20/24 Crop Quantitative Geneticist Relationship Specialty Start Date End Date Tu Canela MD [address] [place] [address] PCP - General Family Medicine 07/08/12 Rosie Syed APRN.COUNTY SHERIFF [address] [place] [address] [facility] 10/20/24 Shobha Morel APRN.COUNTY SHERIFF [address] [place] [address] Product Test Engineer [facility] 10/20/24 Crop Quantitative Geneticist Relationship Specialty Start Date End Date Tu Canela MD [address] [place] [address] PCP - General Family Medicine 07/08/12 Rosie Syed LIABILITY CLAIMS EXAMINER.COUNTY SHERIFF [address] [place] [address] Product Test Engineer Family Medicine 10/20/24 Shobha Morel LIABILITY CLAIMS EXAMINER.COUNTY SHERIFF [address] [place] [address] Product Test Engineer [facility] 10/20/24 Crop Quantitative Geneticist Relationship Specialty Start Date End Date Tu Canela MD [address] [place] [address] PCP - General Family Medicine 07/08/12 Rosie Syed LIABILITY CLAIMS EXAMINER.COUNTY SHERIFF [address] [place] [address] Product Test Engineer Family Medicine 10/20/24 Shobha Morel LIABILITY CLAIMS EXAMINER.COUNTY SHERIFF [address] [place] [address] [facility] 10/20/24 Crop Quantitative Geneticist Relationship Specialty Start Date End Date Tu Canela MD [address] [place] [address] PCP - General Family Medicine 07/08/12 oRsie Syed LIABILITY CLAIMS EXAMINER.COUNTY SHERIFF [address] [place] [address] Product Test Engineer Family Medicine 10/20/24 Shobha Morel LIABILITY CLAIMS EXAMINER.COUNTY SHERIFF [address] [place] [address] Product Test [facility]University [facility] Medicine 10/20/24 Crop Quantitative Geneticist Relationship Specialty Start Date End Date Tu Canela MD [address] [place] [address] PCP - General Family Medicine 07/08/12 Rosie Syed APRN.COUNTY SHERIFF [address] [facility] [place] [address] Product Test Engineer Family Medicine 10/20/24 Shobha Morel LIABILITY CLAIMS EXAMINER.COUNTY SHERIFF [address] [place] [address] Product Test EngineerUniversity [facility] Medicine 10/20/24 Crop Quantitative Geneticist Relationship Specialty Start Date End Date Tu Canela MD [address] [place] [address] PCP - General Family Medicine 07/08/12 Rosie Syed LIABILITY CLAIMS EXAMINER.COUNTY SHERIFF [address] [facility] [place] [address] Product Test Engineer Family Medicine 10/20/24 Shobha Morel LIABILITY CLAIMS EXAMINER.COUNTY SHERIFF [address] [place] [address] Product Test Engineer Family Medicine 10/20/24 Crop Quantitative Geneticist Relationship Specialty Start Date End Date Tu Canela MD [address] [place] [address] PCP - General Family Medicine 07/08/12 Rosie Syed APRN.COUNTY SHERIFF [address] [facility] [place] [address] Product Test Engineer Family Medicine 10/20/24 Shobha Morel LIABILITY CLAIMS EXAMINER.COUNTY SHERIFF [address] [place] [address] Product Test Engineer [facility] 10/20/24 Crop Quantitative Geneticist Relationship Specialty Start Date End Date Tu Canela MD [address] [place] [address] PCP - General Family Medicine 07/08/12 Rosie Syed APRN.COUNTY SHERIFF [address] [place] [address] Product Test Engineer Family Medicine 10/20/24 Shobha Morel APRN.COUNTY SHERIFF [address] [place] [address] [facility] 10/[facility]/24 Crop Quantitative Geneticist Relationship Specialty Start Date End Date Tu Canela MD [address] [place] [address] PCP - General Family Medicine 07/08/12 Rosie Syed APRN.COUNTY SHERIFF [address] [place] [address] Product Test Engineer Family Medicine 10/20/24 Shobha Morel LIABILITY CLAIMS EXAMINER.COUNTY SHERIFF [address] [place] [address] Product Test EngineerUniversity [facility] Medicine 10/20/24 Crop Quantitative Geneticist Relationship Specialty Start Date End Date Tu Canela MD [address] [place] [address] PCP - General Family Medicine 07/08/12 Rosie Syed APRN.COUNTY SHERIFF [address] [place], [place] [id number] Formerly [facility] 10/20/24 Shobha Morel APRN.COUNTY SHERIFF [address] [place], [place] [address] Formerly [facility] 10/20/24 Crop Quantitative Geneticist Relationship Specialty Start Date End Date Tu Canela MD [address] [place], [place] [address] PCP - General Family Medicine 07/08/12 Rosie Syed APRN.COUNTY SHERIFF [address] [place], [place] [id number] [phone] Formerly [facility] 10/20/24 Shobha Morel APRN.COUNTY SHERIFF [address] [place], [place] [address] Formerly [facility] 10/20/24 Crop Quantitative Geneticist Relationship Specialty Start Date End Date Tu Canela MD [address] [place], [place] [id number] PCP - General Family Medicine 07/08/12 Rosie Syed APRN.COUNTY SHERIFF [address] [place], [place] [address] Formerly [facility], [facility] 10/20/24 Shobha Morel LIABILITY CLAIMS EXAMINER.COUNTY SHERIFF [address] [place], [place] [address] Formerly [facility] 10/20/24 Goals (unrecognized section and content) Goals may be documented in a n alternate sectionGoals may be documented in an alternate sectionGoals may be documented in an alternate sectionGoals may be documented in an alternate sectionGoals may be documented in an alternate section INFORMATION SOURCE (unrecogn ized section and content) DATE CREATED AUTHOR 10/22/2024 [facility] DATE CREATED AUTHOR AUTHOR'S ORGANIZ ATION 01/20/2025 [facility] DATE CREATED AUTHOR AUTHOR'S ORGANIZ ATION 02/05/2025 [facility] DATE CREATED AUTHOR AUTHOR'S ORGANIZ ATION 06/13/2025 [facility] FOR RECORDS PERTAINING TO PATIENTS WHO ARE [...] BE BASED ON THE PRIMARY CLINICAL RECORDS. [facility]. provides no warranty or guarantee of the accuracy or completeness of information in this document.
--- NOTE | 2025-09-19 20:17 | PCM.HP.STD ---
HPI - General General Date of Admission: 09/19/25 Date of Service: 09/19/25 Chief Complaint: Intractable pain and difficulty with ambulation HPI Narrative FLORECITA HERNANDEZ, is a 84 F who presented to the ED at [facility] on 09/19/25 after sustaining and mechanical fall at home in her living room. On presentation, her primary complaint was severe LBP. Patient had a mechanical fall earlier today where she was getting up and lost her balance and fell forward. She states she hit her right shoulder fell on her left knee, and her right foot bent up underneath her. She has had pain in her back and foot ever since that point in time and also ongoing pain in her right shoulder. She states she did not pass out. She does have some intermittent gait issues and generalized weakness. Unfortunately her pain has been persistent and she is unable to move well enough to go home. Vital signs on presentation showed temperature of 97.9, heart rate 82, respiratory was 18, blood pressure 162/89 and pulse ox was 97% on room air. After she was medicated her oxygen saturations dropped to 84% on room air and she was placed on 2 L nasal cannula with improvement to her to expirations to 95%. Her CBC was unremarkable. Chemistry panel was unremarkable. Liver functions are normal. proBNP was normal. Vitamin D level was 87. TSH was 3.98. Chest x-ray showed no focal consolidation or pleural effusion but did have mild diffuse hazy and reticular airspace opacities. Shoulder x-ray was unremarkable for any acute findings. Lumbar x-ray showed age-indeterminate compression fractures of L1 and L3. Right foot x-ray showed an acute nondisplaced pseudo Avalos avulsion type fracture of the fifth metatarsal base. She was then able to ambulate and had significant daily difficulty with any type of self-care so will require admission but is anticipated to be greater than 2 midnights and patient meets inpatient status criteria. [facility] Medical History Essential hypertension Wears dentures Cancer Eczema Arthritis Fatty liver Smoker Shortness of breath on exertion Edema Dermatitis Prediabetes Chronic kidney disease, unspecified History of Jovana thyroiditis Amputation toe Pulmonary nodule Psoriasis Osteopenia Hyperlipidemia Chronic pain Breast cancer of upper-outer quadrant of left female breast Diverticulosis Constipation Home Medications ?Medication ?Instructions ?Recorded ?Last Taken ?Type diphenhydramine 25 2 ea PO QHS 05/05/15 09/18/25 History mg-acetaminophen 500 mg tablet (Tylenol PM Extra Strength) levothyroxine 25 mcg tablet 25 mcg PO DAILY 05/05/15 09/19/25 History vitamin E (dl, acetate) 180 mg 400 units PO DAILY 05/05/15 09/19/25 History (400 unit) capsule baclofen 10 mg tablet 10 mg PO DAILY 03/23/22 09/18/25 History cholecalciferol (vitamin D3) 50 50 mcg PO DAILY 03/23/22 09/19/25 History mcg (2,000 unit) capsule biotin 10 mg tablet 10 mg PO DAILY 05/24/22 09/19/25 History multivitamin 1 tab PO DAILY 05/24/22 09/19/25 History aspirin 81 mg capsule 81 mg PO DAILY MD ordered 09/19/25 Unknown History carvedilol 6.25 mg tablet 6.25 mg PO DAILY 09/19/25 09/19/25 History losartan 100 mg tablet 100 mg PO DAILY 09/19/25 09/19/25 History nifedipine 90 mg tablet,extended 90 mg PO DAILY 09/19/25 09/19/25 History release 24 hr pregabalin 25 mg capsule 50 mg PO QHS 09/19/25 09/18/25 History Allergy/AdvReac Type Severity Reaction Status Date / Time carisoprodol (From Soma) Allergy Hives Verified 09/19/25 17:36 propoxyphene napsylate (From Allergy Other Verified 09/19/25 17:36 Darvocet-N) Family History Father Heart disease Black lung Mother Rheumatoid arthritis Sister Diabetes Cancer Kidney Brother Cancer Lung Surgical History H/O thyroidectomy History of carpal tunnel release H/O: hysterectomy Hx of cholecystectomy Social History Smoking Status: Current every day smoker tobacco type: cigarettes alcohol intake: never substance use type: does not use ROS Constitutional Constitutional: Denies anorexia, change in weight, chills, fatigue, fever(s), malaise, night sweats, weakness or other Eyes Eyes: Denies blurry vision, change in eye color, change in vision, discharge from eye(s), double vision, erythema, eye pain, loss of vision or other ENT HEENT: Denies abnormal hearing, dysphagia, ear pain, epistaxis, headache(s), hearing loss, nasal congestion, nasal discharge, post nasal drip, sinus pressure, sore throat or other Cardiovascular Cardiovascular: Denies chest pain, claudication, dyspnea on exertion, edema, lightheadedness, orthopnea, palpitations, paroxysmal nocturnal dyspnea, rapid heart rate, syncope or other Respiratory/Chest Respiratory/Chest: Reports wheezing; Denies cough, dyspnea, excessive phlegm production, hemoptysis, productive cough, shortness of breath at rest, shortness of breath with exertion or other Gastrointestinal Gastrointestinal: Denies abdominal pain, coffee ground emesis, constipation, diarrhea, dyspepsia, hematemesis, hematochezia, loose stools, melena, nausea, vomiting or other Genitourinary Genitourinary: Denies burning urination, difficulty urinating, dysuria, hematuria, nocturia, urinary frequency, urinary hesitancy, urinary incontinence, urinary urgency or other Musculoskeletal Musculoskeletal: Reports back pain, joint pain and joint stiffness; Denies arthralgias, joint swelling, myalgias, neck pain or other Neurologic Neurologic: Reports abnormal gait, numbness and tingling; Denies abnormal speech, confusion, disequilibrium, dizziness, focal weakness, headache(s), paresthesias, seizure-like activity, seizures, syncope, tremor(s) or other Psychiatric Psychiatric: Denies anxiety, depression, homicidal ideation, suicidal ideation or other Endocrine Endocrinology: Denies change in body appearance, cold intolerance, excessive sweating, heat intolerance, polydipsia, polyuria or other Hematologic/Lymphatic Hematologic/Lymphatic: Denies anemia, easy bleeding, easy bruising, lymphadenopathy or other Allergic/Immunologic Allergic/Immunologic: Denies rhinitis, hives, eczemia, asthma or other Vital Signs Vital Signs Vital Signs: 09/19/25 17:30 09/19/25 18:31 09/19/25 19:30 Temperature 97.9 F Temperature Source Temporal Pulse Rate 82 81 Respiratory Rate 18 Blood Pressure 162/89 H 156/69 H Blood Pressure Mean 113 98 Pulse Ox 97 94 Oxygen Delivery Method Room Air Room Air Room Air Weight Weight: 78.834 kg Body Mass Index (BMI) 28.0 Physical Exam Const alert, oriented x3, no apparent distress, average body habitus and well nourished; Negative for healthy appearing Constitutional Narrative: Overweight, elderly, white female, lying in bed watching television, appears comfortable, nontoxic General Appearance: cooperative HEENT normocephalic, head/scalp atraumatic and moist oral mucous membranes Eyes EOMs intact bilaterally and conjunctivae normal Eyes Narrative: No scleral icterus Resp normal respiratory effort, no retractions, no use of accessory muscles and No clear to auscultation bilaterally Resp Narrative: Diffuse scattered end expiratory wheezes Auscultation: wheezes; Negative for crackles or rhonchi Cardio regular rate, regular rhythm, S1 normal heart sound, S2 normal heart sound, no murmurs, no rub, no gallops and no clicks GI normal to inspection, nondistended, normoactive bowel sounds, soft to palpation and non-tender Extremity Extremity Narrative: Trace bilateral lower extremity edema, no cyanosis or clubbing Skin Skin Narrative: Partial amputation left hallux, ecchymosis over the lateral aspect of the right foot Neuro moves all extremities and no focal motor deficits Speech: speech normal Psych affect normal Psych Narrative: Very pleasant, makes good eye contact and interacts appropriately Results Lab / Micro Data 09/19/25 20:09 09/19/25 20:09 Imaging Radiology Impression Ankle X-Ray 09/19/25 18:25 IMPRESSION: Acute nondisplaced pseudo-Avalos avulsion type fracture of the 5th metatarsal base. Reading Location: [facility] Lumbar Spine X-Ray 09/19/25 18:25 IMPRESSION: Age-indeterminate compression fractures of L1 and L3. Mild spondylotic changes. Reading Location: [facility] Shoulder X-Ray 09/19/25 18:25 IMPRESSION: No acute fracture or dislocation. Reading Location: [facility] Foot X-Ray 09/19/25 18:45 IMPRESSION: Acute nondisplaced pseudo-Avalos avulsion type fracture of the 5th metatarsal base. Reading Location: [id number] Assessment & Plan Assessment/Plan (1) Nondisplaced fracture of fifth right metatarsal bone: (2) Lumbar compression fracture: (3) Hypoxia: PLAN: Plan Intractable low back pain secondary to L1 and L3 lumbar compression fractures secondary to osteopenia - With mechanical fall suspect these are acute - Scheduled Tylenol - As needed oxycodone - Muscle relaxant as ordered - Continue home Lyrica - Vitamin D level is within normal limits Will continue home vitamin D supplementation- - PT/OT consultation for assistance with movement - If pain is severe and not remitting with time and may need evaluation for kyphoplasty - Patient with previous osteopenia diagnosis Right foot nondisplaced fracture of the fifth metatarsal head - Nonweightbearing for now - pain regimen as above - Consults podiatry for assistance--> case was discussed with Dr. Gutierrez Acute hypoxia - Chest x-ray obtained and seems to be possibly scarring versus viral etiology - COVID/flu/respiratory viral panel are pending - Patient does have history of tobacco abuse - May be related to opiates given for pain - Continue as needed albuterol - Wean oxygen as able as patient is not oxygen pendant at baseline Debility/inability to ambulate secondary to injuries related to fall and chronic deconditioning - PT/OT consultation - Suspect patient may need placement prior to returning home as she is living alone - Case management/social work consulted for assistance with discharge planning Essential hypertension - Continue home nifedipine - Continue home losartan - Continue home carvedilol Insulin Resistance - Monitor blood sugars Hypothyroidism - Continue home Synthroid Chronic pain - Continue home baclofen - Continue home Lyrica Tobacco abuse - Suspect patient has underlying COPD as she was somewhat wheezy on exam - Patient denies need for nicotine replacement therapy while hospitalized - Recommend cessation DVT prophylaxis - Enoxaparin 40 mg daily CODE STATUS - DNR CCA with no intubation per discussion prior to admission Charges/Coding Visit Charges Inpatient E&M: 79163 Init Hosp L2
--- NOTE | 2025-09-19 20:50 | RAD_ITS ---
PROCEDURE: CHEST 1 VIEW (PORTABLE) 09/19/2025 REASON FOR EXAM: HYPOXIA TECHNIQUE: Frontal view of the chest. COMPARISON: CTA chest 11/13/2023. FINDINGS: Lungs/Pleura: Mild diffuse bilateral reticular and ground-glass/hazy airspace opacities, may reflect interstitial edema versus atypical/viral infection. No pneumothorax or sizable pleural effusion. Heart/Mediastinum: Normal in size. Mildly tortuous and calcified thoracic aorta. Bones/Soft tissues: Mild degenerative changes of the spine. RAD/Chest 1 View (Portable) IMPRESSION: No focal consolidation or sizable pleural effusion. Mild diffuse hazy and reti cular airspace opacities may reflect atypical/viral infection or possibly interstitial edema. Reading Location: [id number]
[2025-09-19 21:07] LABS: AST(SGOT) 29 U/L (<=31); Alanine Aminotransfer ALT/SGPT 19 U/L (<=34); Albumin, Serum 4.0 g/dL (3.4-4.8); Alkaline Phosphatase 108 U/L (35-104); Anion Gap 11 (5-15); BUN 22 mg/dL (4-19); BUN/Creat Ratio 23.0 RATIO (10-20); Calcium,Total 9.0 mg/dL (7.6-11.0); Carbon Dioxide 24.5 mmol/L (21.0-32.0); Chloride 108 mmol/L (98-108); Estimated Creatinine Clearance 48.89 ml/min (50-250); Globulin 2.7 g/dL (2.2-4.2); Glucose 109 mg/dL (70-99); Magnesium 2.4 mg/dL (1.5-2.2); Potassium 4.0 mmol/L (3.3-5.1)
[2025-09-19 21:12] LABS: Hematocrit 35.6 % (37-47); Hemoglobin 11.5 g/dL (12.0-15.0); Immature Granulocytes Count 0.040 X10^3/uL (0.0-0.0); Mean Corp Hgb Conc 32.3 g/dL (32-36); Mean Corpuscular Volume 84.6 fL (81-99); Mean Platelet Vol. 10.3 fl (6.2-12.0); NRBC Flagged by Analyzer 0 % (0-5); Platelet Count 172 K/mm3 (150-450); RBC Distribution Width CV 15.4 % (11.6-14.6); RBC Distribution Width SD 46.9 fl (35.1-43.9); Red Blood Count 4.21 M/mm3 (4.2-5.4); White Blood Count 6.3 K/mm3 (4.4-11.0)
[2025-09-19 21:40] LABS: Vitamin D,25 Hydroxy 87.0 ng/mL (30-100)
--- NOTE | 2025-09-19 21:45 | EX.ED.DYSGE1 ---
HPI History of Present Illness Chief Complaint: Fall Informant: patient Narrative Narrative: Patient is a 84-year-old female with past med history of hypertension hyperlipidemia as well as previous CVA causing mild left leg weakness. She states she is only on a aspirin. She reports that an hour or so prior to arrival she was sitting on the couch and she stood up and lost her balance. She states she fell hitting her right shoulder and right foot and then injuring her low back. She denies striking her head or any loss of consciousness. She states she was able to crawl to her phone and get a hold of her friend who was able to help her up. She states that she has severe pain in the shoulder foot and low back and has concern for internal injury and with this comes in for evaluation. [facility] Medical History Essential hypertension Wears dentures Cancer Eczema Arthritis Fatty liver Smoker Shortness of breath on exertion Edema Dermatitis Prediabetes Chronic kidney disease, unspecified History of Jovana thyroiditis Amputation toe Pulmonary nodule Psoriasis Osteopenia Hyperlipidemia Chronic pain Breast cancer of upper-outer quadrant of left female breast Diverticulosis Constipation Home Medications ?Medication ?Instructions ?Recorded ?Last Taken ?Type diphenhydramine 25 2 ea PO QHS 05/05/15 09/18/25 History mg-acetaminophen 500 mg tablet (Tylenol PM Extra Strength) levothyroxine 25 mcg tablet 25 mcg PO DAILY 05/05/15 09/19/25 History vitamin E (dl, acetate) 180 mg 400 units PO DAILY 05/05/15 09/19/25 History (400 unit) capsule baclofen 10 mg tablet 10 mg PO DAILY 03/23/22 09/18/25 History cholecalciferol (vitamin D3) 50 50 mcg PO DAILY 03/23/22 09/19/25 History mcg (2,000 unit) capsule biotin 10 mg tablet 10 mg PO DAILY 05/24/22 09/19/25 History multivitamin 1 tab PO DAILY 05/24/22 09/19/25 History aspirin 81 mg capsule 81 mg PO DAILY MD ordered 09/19/25 Unknown History carvedilol 6.25 mg tablet 6.25 mg PO DAILY 09/19/25 09/19/25 History losartan 100 mg tablet 100 mg PO DAILY 09/19/25 09/19/25 History nifedipine 90 mg tablet,extended 90 mg PO DAILY 09/19/25 09/19/25 History release 24 hr pregabalin 25 mg capsule 50 mg PO QHS 09/19/25 09/18/25 History Allergy/AdvReac Type Severity Reaction Status Date / Time carisoprodol (From Soma) Allergy Hives Verified 09/19/25 17:36 propoxyphene napsylate (From Allergy Other Verified 09/19/25 17:36 Darvocet-N) Family History Father Heart disease Black lung Mother Rheumatoid arthritis Sister Diabetes Cancer Kidney Brother Cancer Lung Surgical History H/O thyroidectomy History of carpal tunnel release H/O: hysterectomy Hx of cholecystectomy Social History Smoking Status: Current every day smoker tobacco type: cigarettes alcohol intake: never substance use type: does not use ROS ROS ED Constitutional Constitutional ED: Denies chills or fever(s) Eyes Eyes: Denies blurry vision or change in vision ENT ENT ED: Denies sore throat Cardiovascular Cardiovascular: Reports other Details: Negative syncope ; Denies chest pain Respiratory/Chest Respiratory/Chest: Denies cough or dyspnea Gastrointestinal Gastrointestinal: Denies abdominal pain, diarrhea, nausea or vomiting Genitourinary Genitourinary ED: Denies dysuria or hematuria Musculoskeletal Musculoskeletal: Reports back pain and other Details: Positive right shoulder as well as right foot/ankle pain ; Denies neck pain Integumentary Reports Abrasions Neurologic Neurologic: Denies headache(s), paresthesias or weakness Hematologic/Lymphatic Hematologic/Lymphatic: Denies easy bleeding or easy bruising EXAM Physical Exam Const Vital Signs: 09/19/25 17:30 09/19/25 18:31 09/19/25 19:30 Temperature 97.9 F Temperature Source Temporal Pulse Rate 82 81 Respiratory Rate 18 Blood Pressure 162/89 H 156/69 H Blood Pressure Mean 113 98 Pulse Ox 97 94 Oxygen Delivery Method Room Air Room Air Room Air Oxygen Flow Rate (L/min) 09/19/25 20:44 09/19/25 20:45 09/19/25 20:49 Temperature Temperature Source Pulse Rate Respiratory Rate Blood Pressure Blood Pressure Mean Pulse Ox 84 95 95 Oxygen Delivery Method Room Air Nasal Cannula Nasal Cannula Oxygen Flow Rate (L/min) 2 2 09/19/25 22:07 Temperature 97.9 F Temperature Source Pulse Rate 81 Respiratory Rate 18 Blood Pressure 156/69 H Blood Pressure Mean 98 Pulse Ox 95 Oxygen Delivery Method Oxygen Flow Rate (L/min) Positive well nourished and well developed General Appearance ED: well developed HEENT HEENT Narrative: Normocephalic atraumatic No signs of depressed or basilar skull fracture Eyes PERRL and EOMs intact bilaterally Eyes Narrative: No hyphema noted Neck supple Neck Narrative: No bony deformity or step-off of the cervical spine No midline tenderness with palpation Chest Wall palpation of chest normal Chest Narrative: No bony deformity or crepitance or reproducible pain with palpation Resp normal respiratory effort and clear to auscultation bilaterally Cardio regular rate and regular rhythm Rate: other Other Details: Radial and carotid pulses are equal and symmetric GI normal to inspection, nondistended, normoactive bowel sounds, non-tender, non-distended and no masses GI Narrative: No voluntary guarding or rigidity or pulsatile mass No overlying abrasions or ecchymosis Auscultation: normoactive bowel sounds Palpation: soft Back/Spine Back/Spine Narrative: No bony deformity or step-off of the thoracic or lumbar spine However there is midline lumbar tenderness with palpation No overlying abrasions or ecchymosis No saddle anesthesia. Negative straight leg raise. No clonus or Babinski. Patellar reflexes are plus 1 out of 4 bilaterally Extremity Extremity Narrative: Pelvis is stable and there is no shortening or external rotation of either lower extremity Right lower extremity is neurovascularly intact. There is soft tissue swelling and faint ecchymosis along the lateral aspect of the right foot as well as near the right ankle. There is pain with palpation over top of the fifth metatarsal There is also pain with palpation of the right upper extremity near the proximal humerus/surgical neck Neuro oriented x3, CN's II-XII intact bilaterally and no sensory deficits noted Sensorium / Orientation: alert Psych mental status grossly normal Skin no rashes or lesions noted Skin Narrative: Patient has soft tissue swelling of the right foot and ankle region with faint ecchymosis No secondary findings to suggest infection such as erythema or warmth to indicate cellulitis or abscess. MDM MDM MDM Narrative Medical decision making narrative: Patient arrived to the ER mildly hypertensive otherwise with stable vitals. She reported a mechanical fall and therefore I felt no need for cardiac or syncope work. She did not strike her head nor did she have a history of bleeding disorder or blood thinner use of my concern for traumatic subarachnoid or subdural hemorrhage is low and I feel no need for head CT. With swelling along the right foot and ankle there is concern for metatarsal fracture or lateral malleoli are fracture so an x-ray of the foot and ankle ordered. Pain along the right shoulder there is concern for potential AC separation versus proximal humeral fracture versus dislocation so an x-ray of the shoulder was ordered as well. No pain along the low back there is concern for compression fracture or spondylolisthesis so an x-ray was obtained. She denied any loss of bowel or bladder control or IV drug use of my concern for cauda equina or epidural abscess is low. She also denies any recent injection or back procedures so there is low concern for osteomyelitis or discitis. The patient CT of the lumbar spine showed an L1 and L3 fracture. X-ray of the foot revealed a pseudo-Avalos fracture. Based on her advanced age and multiple fractures and her intractable pain I do not feel she would do well at home trying to care for herself. Therefore I feel patient should be admitted for pain control as well as further evaluation by PT OT and social work to decide if she is able to return home or needs placement in rehab. The patient is agreeable with this plan of care and therefore the hospitalist was contacted who agrees to accept the patient for continued care. History & Record Review Discussion w/independent historian: Patient Lab Data Attestation: I reviewed the patient's lab results. Labs: Laboratory Results - last 24 hr 09/19/25 20:09 WBC 6.3 RBC 4.21 Hgb 11.5 L Hct 35.6 L MCV 84.6 MCH 27.3 MCHC 32.3 RDW Std Deviation 46.9 H RDW Coeff of Georgi 15.4 H Plt Count 172 MPV 10.3 Immature Gran % (Auto) 0.600 Neut % (Auto) 68.6 Lymph % (Auto) 18.8 L Josephine % (Auto) 10.9 H Eos % (Auto) 0.8 Baso % (Auto) 0.3 Absolute Neuts (auto) 4.3 Absolute Lymphs (auto) 1.19 Nucleated RBC % 0 Sodium 144 Potassium 4.0 Chloride 108 Carbon Dioxide 24.5 Anion Gap 11 BUN 22 H Creatinine 0.94 Estim Creat Clear Calc 48.89 L Est GFR (MDRD) Non-Af 61 BUN/Creatinine Ratio 23.0 H Glucose 109 H Calcium 9.0 Phosphorus 3.1 Magnesium 2.4 H Total Bilirubin 0.59 AST 29 ALT 19 Alkaline Phosphatase 108 H NT pro BNP II 1059 Total Protein 6.7 Albumin 4.0 Globulin 2.7 Albumin/Globulin Ratio 1.5 Vitamin D 25-Hydroxy 87.0 TSH 3.980 Radiography Diagnostic Testing: Clinical Impression(s) from Imaging Studies Ankle X-Ray 09/19/25 18:25 IMPRESSION: Acute nondisplaced pseudo-Avalos avulsion type fracture of the 5th metatarsal base. Reading Location: [facility] Lumbar Spine X-Ray 09/19/25 18:25 IMPRESSION: Age-indeterminate compression fractures of L1 and L3. Mild spondylotic changes. Reading Location: [facility] Shoulder X-Ray 09/19/25 18:25 IMPRESSION: No acute fracture or dislocation. Reading Location: [facility] Foot X-Ray 09/19/25 18:45 IMPRESSION: Acute nondisplaced pseudo-Avalos avulsion type fracture of the 5th metatarsal base. Reading Location: [facility] Chest X-Ray 09/19/25 20:50 IMPRESSION: No focal consolidation or sizable pleural effusion. Mild diffuse hazy and reticular airspace opacities may reflect atypical/viral infection or possibly interstitial edema. Reading Location: [facility] Right shoulder x-ray as interpreted by the emergency medicine physician reveals no acute fracture or dislocation X-ray of the lumbar spine is interpreted by the emergency medicine physician reveals advanced degenerative changes with compression fractures of L1 and L3 X-ray of the right ankle as interpreted by the emergency medicine system reveals no acute fracture or dislocation X-ray of the right foot as interpreted by emergency medicine physician reveals a pseudo-Avlaos fracture of the fifth metatarsal Chest x-ray as interpreted by emergency medicine physician reveals mild vascular congestion without obvious infiltrate or pneumothorax or rib fracture Management Discussion w/another healthcare provider: Hospitalist Discharge Plan Dx/Rx/DC Orders Clinical Impression: Compression fx, lumbar spine, Closed fracture of fifth metatarsal bone, Accidental fall, Intractable pain, Essential hypertension, Hyperlipidemia Disposition Disposition: Acute Care Hospital [facility] Discharge Date/Time: 09/19/25 22:41
[2025-09-19 21:47] LABS: Pro- Brain NATRIURETIC PEPTIDE 1059 pg/mL (<=1800)
--- OUTSIDE RECORDS SUMMARY | 2025-09-19 22:23 | XMS RPT_ITS | CCD ---
Author Organization [facility] Care Team Providers Care Learning Manager Name Role Phone Tu Canela MD Primary Care Provider Hilton, Dr. Mae Primary Care Provider Dr. Tu Canela Referring Provider Friend, Dr. Walter Attending Provider Friend, Dr. Walter Other Provider Tu Canela Referring Provider Unavailable Tu Canela MD Primary Care Provider Tu Canela MD Primary Care Provider Nolan ERIC, Guerda Unavailable Eliseo Michele RN Unavailable Unavailable Eliseo Michele RN Unavailable Unavailable Tu Canela MD Primary Care Provider Hari Sena RN, Zenaida Unavailable [phone] TU CANELA Primary Care Unavailable DO GARZA MICHELLE Attending Unavailable TU CANELA Primary Care Unavailable IKRK SMITH Admitting Unavailable PROVIDER, UNKNOWN Attending Unavailable RC RODRIGUEZ Consulting Unavailable Haagen MAINTENANCE DIRECTOR.Rosie SAHNI Unavailable Suppan MAINTENANCE DIRECTOR.KAITLYN Shobha A Unavailable [phone] Ryne ERIC, Eliseo Monzon Unavailable Unavailable Bichara BEAMER HAND, Sammy Unavailable Unavailable Bichara BEAMER HAND, Sammy Unavailable Unavailable Suppan MAINTENANCE DIRECTOR.KAITLYN, Shobha A Unavailable Suppan MAINTENANCE DIRECTOR.KAITLYN, Shobha A Unavailable [phone] Ananya Shane Attending Unavailable Aneta Edwards Referring Unavailable Aneta Edwards Primary Care Unavailable AYLIN PAZ Referring Unavailable AMY FRY Attending Unavailable HILTON, TU Fernando Primary Care Unavailable HILTON, TU Fernando Primary Care Unavailable MARY ELLEN EHREDIA Referring Unavailable ROSIE SYED Attending Unavailable AYLIN PAZ Attending Unavailable HILTON, TU Fernando Primary Care Unavailable MARY ELLEN HEREDIA Referring Unavailable HILTON, TU Fernando Primary Care Unavailable SELF Referring Unavailable ROSIE SYED Attending Unavailable HILTON, TU Fernando Primary Care Unavailable HILTON, TU Fernando Referring Unavailable HILTON, TU J Primary Care Unavailable HILTON, UT J Attending Unavailable SELF Referring Unavailable HILTON, [...] sources) Carisoprodol Drug Allergy 2 Swelling, Itching [facility] Dust (2 sources) Dust Substance Allergy 6 Other: See Comments [facility] Mold Extract (2 sources) Mold Extract Drug Allergy 6 Other: See Comments [facility] Pollen (2 sources) Grass pollen Substance Allergy 6 Other: See Comments [facility] (20 sources) Carisoprodol; Translations: [CARISOPRODOL] Drug Allergy 2 Swelling, Itching [facility] Work Phone: (20 sources) Dust; Translations: [DUST] Allergy to substance 6 Other: See Comments [facility] Work Phone: (20 sources) Grass pollen; Translations: [GRASS POLLEN] Drug Allergy 6 Other: See Comments [facility] Work Phone: [phone] (20 sources) Mold Extract; Translations: [MOLD] Drug Allergy 6 Other: See Comments [facility] Work Phone: [phone] (20 sources) Tree; Translations: [TREES] Allergy to substance 6 Other: See Comments [facility] Work Phone: (20 sources) Animal Dander; Translations: [ANIMAL DANDER] Drug Allergy 6 Intolerance [facility] Work Phone: (20 sources) Propoxyphene N-Acetaminophen; Translations: [PROPOXYPHENE N-ACETAMINOPHEN] Drug Allergy 2 Mental Status Change [facility] Work Phone: (1 source) Acetaminophen Drug Allergy 2 Other [facility] Work Phone: [phone] (7 sources) Propoxyphene; Translations: [propoxyphene napsylate] Drug Allergy 2 Other [facility] (1 source) Carisoprodol Drug Allergy 4 [facility] Repository Medications Current Medications Medication Drug Class(es) [...] 2015 11:00pm take 2 tablets by mo [facility] once daily at bedtime diphenhydrAMINE-Acetaminophen 25-500 mg tab Take 2 tablets by mouth daily at bedtime. Active Comment on above: Take 2 tablets by mo [facility] at bedtime as needed. acetaminophen 325 mg / HYDROcodone bitartrate 5 mg oral tablet (2 sources) Opioid Agonist Start: 05-12-2015 take 1 tablet by mouth every four hours as needed Hydrocodone-Acet aminophen Active 1 TABLET PO EVERY 4 HOURS NEEDED May 12, 2015 6:36am Start: 05-05-2015 take 1 tablet by [facility] every eight hours as needed Hydrocodone-Acetaminophen [...] Comment on above: Take 1 capsule by [facility] twice daily for 5 days. ammonium lactate [...] Comment on above: Take 1 tablet by [facility] once daily. Except 2 tabs by [...] Comment on above: Take 1 tablet by [facility] twice daily for 8 doses. losartan [...] 11:00pm Start: 05-24-2022 take 1 tablet by [facility] once daily Multivitamin Active 1 TABLET [...] Comment on above: Take 400 Units by [facility] once daily. Completed/Discontinued Medications Medication Drug Class(es) [...] US VENOUS INCOMPETENCY UNL VAS LAB Normal [facility] CNOVon 06-04-2025 CNOV Normal [facility] ULTRASOUND GUIDANCE FOR VENO US ABLATIONon 06-04-2025 ULTRASOUND GUIDANCE FOR VENOUS ABLATION Normal [facility] CNPNon 05-27-2025 CNPN Normal [facility] CNPNon 05-19-2025 CNPN Normal [facility] TITO SCREENING W TOMOon 05-11 TITO SCREENING W GHAZAL Normal [facility] CNOVon 04-29-2025 CNOV Normal [facility] CNOVon 04-14-2025 CNOV Normal [facility] US VENOUS INCOMPETENCY FRANCISCO V LABon 04-14-2025 US VENOUS INCOMPETENCY FRANCISCO VAS LAB Normal [facility] CNCOon 03-11-2025 CNCO Letter Text Normal [facility] CNPNon 02-13-2025 CNPN Normal [facility] CNOVon 02-11-2025 CNOV Normal [facility] CNOVon 02-09-2025 CNOV Normal [facility] Hemoccult Stl Ql IAon 2024 Lower GI hemoglobin IA Ql (Stl) Negative Normal Negative [facility] Comment on above: Order Comment: Speci men Type: STOOL SPECIMENOrdering Facility: [facility] Address: [address] [place] [address] Performed By: #### 2 9771-3 ####[facility] LABCLIA [id number] [place] [address] [place] XR THORACIC 3V AP/LAT/SWIMME RSon 02-05-2025 XR THORACIC 3V AP/LAT/SWIMMERS Normal [facility] CNOVon 02-04-2025 CNOV Office Visit (CVAKPO ) FLORECITA HEALY ([id number]) 1940 F Date Time Provider Department 02/04/25 10:30 AM AMY FRY During your visit today, we recorded the following information about you: Pulse Blood pressure Weight Height 79/minute 99/73 78.5 kg 1.651 m Amy Fry APRN.CALENDER WORKER HELPER 02/04/2025 11:48 AM Signed [facility] Established Visit Consultation is requested by: Aylin Paz [phone] [facility] [address] PCP: [place] [address] [facility] Florecita Healy is a 84 year old female presenting for hospital discharge follow up. Admitted to [facility] 10/20-10/27/24. From discharge summary aken from the [...] changes, or sensory changes. She presented to [place] ED, where NIHSS was 2 (LFD and dysarthria). iGluc was 115. iBP was 175/77. CTH without acute process. 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 She was loaded on 300 mg Plavix and transferred to [facility] for further management. The patient was admitted [...] today - (more content not included)... Normal [facility] CNPNon 02-04-2025 CNPN Normal [facility] Basic metabolic 2000 panelon 02-03-2025 Anion gap [Moles/Vol] 12 mmol/L Normal 8-15 [facility] Comment on above: Order Comment: Speci men Type: BLOOD SPECIMENOrdering Facility: [facility] Address: [address] [place] [address] Performed By: #### 2 4321-2 ####[facility] [id number] [place] [address] [place] Calcium [Mass/Vol] 9.8 mg/dL Normal 8.5-10.2 [facility] Comment on above: Order Comment: Speci men Type: BLOOD SPECIMENOrdering Facility: [facility] Address: [address] [place], [place] [address] Performed By: #### 2 4321-2 ####[facility]ENTERWNCLIA [id number] [place] [address] [place] Chloride [Moles/Vol] 105 mmol/L Normal 98-107 [facility] Comment on above: Order Comment: Speci men Type: BLOOD SPECIMENOrdering Facility: [facility] Address: [address] [place] [address] Performed By: #### 2 4321-2 ####[facility] SANTY MILLWNCLIA [id number] [place] [address] [place] CO2 [Moles/Vol] 26 mmol/L Normal 22-30 [facility] Comment on above: Order Comment: Speci men Type: BLOOD SPECIMENOrdering Facility: [facility] Address: [address] [place] [address] Performed By: #### 2 4321-2 ####[facility] SANTY NARAYANBROADWAYNCYaneth [id number] [place] [address] [place] Creatinine [Mass/Vol] 1.04 mg/dL High 0.58-0.96 [facility] Comment on above: Order Comment: Speci men Type: BLOOD SPECIMENOrdering Facility: [facility] Address: [address] [place] [address] Performed By: #### 2 4321-2 ####[facility] [id number] [place] [address] [place] Creatinine and Glomerular filtration rate.predicted panel (S/P/Bld) 54 mL/min/1.73m??? Low >=60 [facility] Comment on above: Order Comment: Speci men Type: BLOOD SPECIMENOrdering Facility: [facility] Address: [address] [place] [address] Result Comment: Callie mated Glomerular Filtration Rate [...] actual GFR. Performed By: #### 2 4321-2 ####[facility] HOS[facility]ITALNCLIA [id number] [place] [address] [place] Glucose [Mass/Vol] 96 mg/dL Normal 74-99 [facility] Comment on above: Order Comment: Speci men Type: BLOOD SPECIMENOrdering Facility: [facility] Address: [address] [place] [address] Result Comment: The [place] [employer] Association (ADA) provides guidance for cutoff [...] Standards of Medical Care in Diabetes 2016, [place] [employer]. Diabetes Care. 2016.39(Suppl 1). Performed By: #### 2 4321-2 ####[facility] MILLTOWNCLIA [id number] [place] [address] [place] Potassium [Moles/Vol] 3.9 mmol/L Normal 3.7-5.1 [facility] Comment on above: Order Comment: Speci men Type: BLOOD SPECIMENOrdering Facility: [facility] Address: [address] [place] [address] Performed By: #### 2 4321-2 ####[facility]ENTERWNCLIA [id number] [place] [address] [place] Sodium [Moles/Vol] 143 mmol/L Normal 136-144 [facility] Comment on above: Order Comment: Speci men Type: BLOOD SPECIMENOrdering Facility: [facility] Address: [address] [place] [address] Performed By: #### 2 4321-2 ####[facility] MILLTOWNCLIA [id number] [place] [address] [place] Urea nitrogen [Mass/Vol] 18 mg/dL Normal 7-21 [facility] Comment on above: Order Comment: Speci men Type: BLOOD SPECIMENOrdering Facility: [facility] Address: [address] [place] [address] Performed By: #### 2 4321-2 ####[facility] MILLTOWNCLIA [id number] [place] [address] [place] CBC W Auto Differential pane l (Bld)on 02-03-2025 Basophils (Bld) [#/Vol] 0.04 10*3/uL Normal <0.11 [facility] Comment on above: Order Comment: Speci men Type: BLOOD SPECIMENOrdering Facility: [facility] Address: [address] [place] [address] Performed By: #### 5 7021-8 ####[facility] [id number] [place] [address] [place] Basophils/100 WBC (Bld) 0.7 % Normal [facility] Comment on above: Order Comment: Speci men Type: BLOOD SPECIMENOrdering Facility: [facility] Address: [address] [place] [address] Performed By: #### 5 7021-8 ####[facility] [id number] [place] [address] [place] Differential cell count method Nom (Bld) Auto Normal [facility] Comment on above: Order Comment: Speci men Type: BLOOD SPECIMENOrdering Facility: [facility] Address: [address] [place] [address] Performed By: #### 5 7021-8 ####[facility] [id number] [place] [address] [place] Eosinophils (Bld) [#/Vol] 0.09 10*3/uL Normal <0.46 [facility] Comment on above: Order Comment: Speci men Type: BLOOD SPECIMENOrdering Facility: [facility] Address: [address] [place] [address] Performed By: #### 5 7021-8 ####[facility] HOSPITALLIA [id number] [place] [address] [place] Eosinophils/100 WBC (Bld) 1.6 % Normal [facility] Comment on above: Order Comment: Speci men Type: BLOOD SPECIMENOrdering Facility: [facility] Address: [address] [place] [address] Performed By: #### 5 7021-8 ####[facility]ITAL[facility] [id number] [place] [address] [place] Erythrocyte distribution width (RBC) [Ratio] 15.1 % High 11.5-15.0 [facility] Comment on above: Order Comment: Speci men Type: BLOOD SPECIMENOrdering Facility: [facility] Address: [address] [place] [address] Performed By: #### 5 7021-8 ####[facility] HOSPITALNCLI [id number] [place] [address] [place] Hematocrit (Bld) [Volume fraction] 36.6 % Normal 36.0-46.0 [facility] Comment on above: Order Comment: Speci men Type: BLOOD SPECIMENOrdering Facility: [facility] Address: [address] [place] [address] Performed By: #### 5 7021-8 ####[facility] HOSPITALA [id number] [place] [address] [place] Hemoglobin (Bld) [Mass/Vol] 11.4 g/dL Low 11.5-15.5 [facility] Comment on above: Order Comment: Speci men Type: BLOOD SPECIMENOrdering Facility: [facility] Address: [address] [place] [address] Performed By: #### 5 7021-8 ####[facility] [id number] [place] [address] [place] Immature granulocytes (Bld) [#/Vol] 10*3/uL Normal <0.10 [facility] Comment on above: Order Comment: Speci men Type: BLOOD SPECIMENOrdering Facility: [facility] Address: [address] [place] [address] Performed By: #### 5 7021-8 ####[facility] HOSPITALNCLIA [id number] [place] [address] [place] [facility] Immature granulocytes/100 WBC (Bld) 0.2 % Normal [facility] Comment on above: Order Comment: Speci men Type: BLOOD SPECIMENOrdering Facility: [facility] Address: [address] [place] [address] Performed By: #### 5 7021-8 ####[facility] HOSPITALNCLI [id number] [place] [address] [place] Lymphocytes (Bld) [#/Vol] 1.39 10*3/uL Normal 1.00-4.00 [facility] Comment on above: Order Comment: Speci men Type: BLOOD SPECIMENOrdering Facility: [facility] Address: [address] [place] [address] Performed By: #### 5 7021-8 ####[facility] [id number] [place] [address] [place] Lymphocytes/100 WBC (Bld) 25.0 % Normal [facility] Comment on above: Order Comment: Speci men Type: BLOOD SPECIMENOrdering Facility: [facility] Address: [address] [place] [address] Performed By: #### 5 7021-8 ####[facility]OS[facility]ITALNCLIA [id number] [place] [address] [place] MCH (RBC) [Entitic mass] 26.8 pg Normal 26.0-34.0 [facility] Comment on above: Order Comment: Speci men Type: BLOOD SPECIMENOrdering Facility: [facility] Address: [address] [place] [address] Performed By: #### 5 7021-8 ####[facility] HOSPITALNCLI [id number] [place] [address] [place] MCHC (RBC) [Mass/Vol] 31.1 g/dL Normal 30.5-36.0 [facility] Comment on above: Order Comment: Speci men Type: BLOOD SPECIMENOrdering Facility: [facility] Address: [address] [place] [address] Performed By: #### 5 7021-8 ####[facility] HOSPITALGAYLIA [id number] [place] [address] [place] MCV (RBC) [Entitic vol] 86.1 fL Normal 80.0-100.0 [facility] Comment on above: Order Comment: Speci men Type: BLOOD SPECIMENOrdering Facility: [facility] Address: [address] [place] [address] Performed By: #### 5 7021-8 ####[facility]ITALGAYLOG[facility] [id number] [place] [address] [place] Monocytes (Bld) [#/Vol] 0.52 10*3/uL Normal <0.87 [facility] Comment on above: Order Comment: Speci men Type: BLOOD SPECIMENOrdering Facility: [facility] Address: [address] [place] [address] Performed By: #### 5 7021-8 ####[facility] HOSPITALRAJATA [id number] [place] [address] [place] Monocytes/100 WBC (Bld) 9.4 % Normal [facility] Comment on above: Order Comment: Speci men Type: BLOOD SPECIMENOrdering Facility: [facility] Address: [address] [place] [address] Performed By: #### 5 7021-8 ####[facility] HOSPITALLIA [id number] [place] [address] [place] Neutrophils (Bld) [#/Vol] 3.50 10*3/uL Normal 1.45-7.50 [facility] Comment on above: Order Comment: Speci men Type: BLOOD SPECIMENOrdering Facility: [facility] Address: [address] [place] [address] Performed By: #### 5 7021-8 ####[facility] [id number] [place] [address] [place] Neutrophils/100 WBC (Bld) 63.1 % Normal [facility] Comment on above: Order Comment: Speci men Type: BLOOD SPECIMENOrdering Facility: [facility] Address: [address] [place] [address] Performed By: #### 5 7021-8 ####[facility] [id number] [place] [address] [place] Nucleated RBC (Bld) [#/Vol] 10*3/uL Normal <0.01 [facility] Comment on above: Order Comment: Speci men Type: BLOOD SPECIMENOrdering Facility: [facility] Address: [address] [place] [address] Performed By: #### 5 7021-8 ####[facility] [id number] [place] [address] [place] Nucleated RBC/100 WBC (Bld) [Ratio] 0.0 /100 WBC Normal [facility] Comment on above: Order Comment: Speci men Type: BLOOD SPECIMENOrdering Facility: [facility] Address: [address] [place] [address] Performed By: #### 5 7021-8 ####[facility] [id number] [place] [address] [place] Platelet mean volume (Bld) [Entitic vol] 9.4 fL Normal 9.0-12.7 [facility] Comment on above: Order Comment: Speci men Type: BLOOD SPECIMENOrdering Facility: [facility] Address: [address] [place] [address] Performed By: #### 5 7021-8 ####[facility] BIANCLIA [id number] [place] [address] [place] Platelets (Bld) [#/Vol] 166 10*3/uL Normal 150-400 [facility] Comment on above: Order Comment: Speci men Type: BLOOD SPECIMENOrdering Facility: [facility] Address: [address] [place] [address] Performed By: #### 5 7021-8 ####[facility] NARAYANBROADWAYNCLIA [id number] [place] [address] [place] RBC (Bld) [#/Vol] 4.25 10*6/uL Normal 3.90-5.20 [facility] Comment on above: Order Comment: Speci men Type: BLOOD SPECIMENOrdering Facility: [facility] Address: [address] [place] [address] Performed By: #### 5 7021-8 ####[facility] HOSPITALNCTESSAA [id number] [place] [address] [place] WBC (Bld) [#/Vol] 5.55 10*3/uL Normal 3.70-11.00 [facility] Comment on above: Order Comment: Speci men Type: BLOOD SPECIMENOrdering Facility: [facility] Address: [address] [place], [place] [address] Performed By: #### 5 7021-8 ####[facility] HOSPITALNCLIA [id number] [place] [address] [place] Ferritin SerPl-mCncon 2024 Ferritin [Mass/Vol] 89.8 ng/mL Normal 14.7-205.1 [facility] Comment on above: Order Comment: Speci men Type: BLOOD SPECIMENOrdering Facility: [facility] Address: [address] [place] [address] Performed By: #### 5 0190-8, 9, 8, 2275- ####[facility] LABIA [id number] [place] [address] [place] Folate SerPl-ncon 02-04-20 25 Folate [Mass/Vol] ng/mL Normal >4.7 [facility] Comment on above: Order Comment: Speci men Type: BLOOD SPECIMENOrdering Facility: [facility] Address: [address] [place] [address] Result Comment: A re sult of > 20 ng/mL is not necessarily indicative of a pathologic or treatable condition: it reflects a limitation of the test methodology.Assay reference range: 4.8 to 24.2 ng/mL. Suitable for detection of folate deficiency.Reference:Folate III (Folate III) [package insert V 1.0 Khmer]. [facility], [place], [place]: September 2015. Performed By: #### 5 0190-8, 9, 2284-06, 2276-02 ####[facility] LABIA [id number] [place] [id number] [place] Iron and Iron binding capaci panel 02-03-2025 Iron [Mass/Vol] 60 ug/dL Normal 41-186 [facility] Comment on above: Order Comment: Speci men Type: BLOOD SPECIMENOrdering Facility: [facility] Address: [address] [place] [address] Performed By: #### 5 0190-8, 9, 2284-06, 2276-02 ####[facility] LABIA [id number] [place] [address] [place] Iron binding capacity [Mass/Vol] 268 ug/dL Normal 232-386 [facility] Comment on above: Order Comment: Speci men Type: BLOOD SPECIMENOrdering Facility: [facility] Address: [address] [place] [address] Performed By: #### 5 0190-8, 9, 2284-06, 2275-4 ####[facility] LABCLIA [id number] [address] [address] [place] Iron/TIBC [Molar ratio] 22.4 % Normal 15.0-57.0 [facility] Comment on above: Order Comment: Speci men Type: BLOOD SPECIMENOrdering Facility: [facility] Address: [address] [place], [place] [address] Performed By: #### 5 0190-8, 9, 8, 4 ####[facility] LABCLIA [id number] [address] [address] [place] Vit B12 [facility] 025 Cobalamin (Vitamin B12) [Mass/Vol] pg/mL High 232-1245 [facility] Comment on above: Order Comment: Speci men Type: BLOOD SPECIMENOrdering Facility: [facility] Address: [address] [place], [place] [address] Performed By: #### 5 0190-8, 9, 8, 2276-02 ####[facility] LABCLIA [id number] [place] [id number] [place] CNPNon 01-27-2025 CNPN Normal [facility] Basic metabolic 2000 panelon 01-26-2025 Anion gap [Moles/Vol] 11 mmol/L Normal 8-15 [facility] Comment on above: Order Comment: Speci men Type: BLOOD SPECIMENOrdering Facility: [facility] Address: [address] [place], [place] [address] Performed By: #### 3 3762-6, 3016-3, 22738-9 ####[facility] LABCLIA [id number] [place] [id number] [place] Calcium [Mass/Vol] 9.5 mg/dL Normal 8.5-10.2 [facility] Comment on above: Order Comment: Speci men Type: BLOOD SPECIMENOrdering Facility: [facility] Address: [address] [place] [address] Performed By: #### 3 3762-6, 3016-3, 39413-8 ####[facility] LABIA [id number] [place] [id number] [place] Chloride [Moles/Vol] 106 mmol/L Normal 98-107 [facility] Comment on above: Order Comment: Speci men Type: BLOOD SPECIMENOrdering Facility: [facility] Address: [address] [place] [address] Performed By: #### 3 3762-6, 3016-3, 21819-4 ####[facility] [id number] [place] [address] [place] CO2 [Moles/Vol] 26 mmol/L Normal 22-30 [facility] Comment on above: Order Comment: Speci men Type: BLOOD SPECIMENOrdering Facility: [facility] Address: [address] [place] [address] Performed By: #### 3 3762-6, 3016-3, 62071-4 ####[facility] [id number] [place] [address] [place] Creatinine [Mass/Vol] 1.09 mg/dL High 0.58-0.96 [facility] Comment on above: Order Comment: Speci men Type: BLOOD SPECIMENOrdering Facility: [facility] Address: [address] [place] [address] Performed By: #### 3 3762-6, 3016-3, 05971-5 ####[facility] [id number] [place] [id number] [place] Creatinine and Glomerular filtration rate.predicted panel (S/P/Bld) 51 mL/min/1.73m??? Low >=60 [facility] Comment on above: Order Comment: Speci men Type: BLOOD SPECIMENOrdering Facility: [facility] Address: [address] [place] [address] [place] [address] Result Comment: Callie mated Glomerular Filtration Rate [...] GFR. Performed By: #### 3 3762-6, 3016-3, 76819-3 ####[facility] LABCLIA [id number] [place] [id number] [place] Glucose [Mass/Vol] 100 mg/dL High 74-99 [facility] Comment on above: Order Comment: Laura mejía Type: BLOOD SPECIMENOrdering Facility: [facility] Address: [address] [place] [address] Result Comment: The [place] [employer] (ADA) provides guidance for cutoff [...] Standards of Medical Care in Diabetes 2016, [place] [employer]. Diabetes Care. 2016.39(Suppl 1). Performed By: #### 3 3762-6, 3016-3, 26460-1 ####[facility] [id number] [place] [id number] [place] Potassium [Moles/Vol] 3.7 mmol/L Normal 3.7-5.1 [facility] Comment on above: Order Comment: Laura mejía Type: BLOOD SPECIMENOrdering Facility: [facility] Address: [address] [place] [address] Performed By: #### 3 3762-6, 3016-3, 77773-4 ####[facility] LABCLIA [id number] [address] [address] [place] Sodium [Moles/Vol] 143 mmol/L Normal 136-144 [facility] Comment on above: Order Comment: Speci men Type: BLOOD SPECIMENOrdering Facility: [facility] Address: [address] [place] [address] Performed By: #### 3 3762-6, 3016-3, 90573-5 ####[facility] LABCLIA [id number] [place] [address] [place] Urea nitrogen [Mass/Vol] 26 mg/dL High 7-21 [facility] Comment on above: Order Comment: Speci men Type: BLOOD SPECIMENOrdering Facility: [facility] Address: [address] [place] [address] Performed By: #### 3 3762-6, 3016-3, 39878-7 ####[facility]CLIA [id number] [place] [id number] [place] CBC W Auto Differential pane l (Bld)on 01-26-2025 Basophils (Bld) [#/Vol] 10*3/uL Normal <0.11 [facility] Comment on above: Order Comment: Speci men Type: BLOOD SPECIMENOrdering Facility: [facility] Address: [address] [place] [address] Performed By: #### 5 7021-8 ####[facility] LABCLIA [id number] [place] [id number] [place] Basophils/100 WBC (Bld) 0.5 % Normal [facility] Comment on above: Order Comment: Speci men Type: BLOOD SPECIMENOrdering Facility: [facility] Address: [address] [place] [address] Performed By: #### 5 7021-8 ####[facility]CLIA [id number] [place] [address] [place] Differential cell count method Nom (Bld) Auto Normal [facility] Comment on above: Order Comment: Speci men Type: BLOOD SPECIMENOrdering Facility: [facility] Address: [address] [place] [address] Performed By: #### 5 7021-8 ####[facility]CLIA [id number] [place] [address] [place] Eosinophils (Bld) [#/Vol] 0.06 10*3/uL Normal <0.46 [facility] Comment on above: Order Comment: Speci men Type: BLOOD SPECIMENOrdering Facility: [facility] Address: [address] [place] [address] Performed By: #### 5 7021-8 ####[facility]CLIA [id number] [place] [address] [place] Eosinophils/100 WBC (Bld) 1.4 % Normal [facility] Comment on above: Order Comment: Speci men Type: BLOOD SPECIMENOrdering Facility: [facility] Address: [address] [place] [address] Performed By: #### 5 7021-8 ####[facility]CLIA [id number] [place] [address] [place] Erythrocyte distribution width (RBC) [Ratio] 14.9 % Normal 11.5-15.0 [facility] Comment on above: Order Comment: Speci men Type: BLOOD SPECIMENOrdering Facility: [facility] Address: [address] [place] [address] Performed By: #### 5 7021-8 ####[facility]CLIA [id number] [place] [address] [place] Hematocrit (Bld) [Volume fraction] 36.0 % Normal 36.0-46.0 [facility] Comment on above: Order Comment: Speci men Type: BLOOD SPECIMENOrdering Facility: [facility] Address: [address] [place] [address] Performed By: #### 5 7021-8 ####[facility] [id number] [place] [address] [place] Hemoglobin (Bld) [Mass/Vol] 11.0 g/dL Low 11.5-15.5 [facility] Comment on above: Order Comment: Speci men Type: BLOOD SPECIMENOrdering Facility: [facility] Address: [address] [place] [address] Performed By: #### 5 7021-8 ####[facility]CLIA [id number] [place] [address] [place] Immature granulocytes (Bld) [#/Vol] 10*3/uL Normal <0.10 [facility] Comment on above: Order Comment: Speci men Type: BLOOD SPECIMENOrdering Facility: [facility] Address: [address] [place] [address] Performed By: #### 5 7021-8 ####[facility] [id number] [place] [address] [place] Immature granulocytes/100 WBC (Bld) 0.5 % Normal [facility] Comment on above: Order Comment: Speci men Type: BLOOD SPECIMENOrdering Facility: [facility] Address: [address] [place] [address] Performed By: #### 5 7021-8 ####[facility]CLIA [id number] [place] [address] [place] Lymphocytes (Bld) [#/Vol] 1.48 10*3/uL Normal 1.00-4.00 [facility] Comment on above: Order Comment: Speci men Type: BLOOD SPECIMENOrdering Facility: [facility] Address: [address] [place] [address] Performed By: #### 5 7021-8 ####[facility]CLIA [id number] [place] [address] [place] Lymphocytes/100 WBC (Bld) 33.6 % Normal [facility] Comment on above: Order Comment: Speci men Type: BLOOD SPECIMENOrdering Facility: [facility] Address: [address] [place] [address] Performed By: #### 5 7021-8 ####[facility] [id number] [place] [address] [place] MCH (RBC) [Entitic mass] 27.2 pg Normal 26.0-34.0 [facility] Comment on above: Order Comment: Speci men Type: BLOOD SPECIMENOrdering Facility: [facility] Address: [address] [place] [address] Performed By: #### 5 7021-8 ####[facility] [id number] [place] [address] [place] MCHC (RBC) [Mass/Vol] 30.6 g/dL Normal 30.5-36.0 [facility] Comment on above: Order Comment: Speci men Type: BLOOD SPECIMENOrdering Facility: [facility] Address: [address] [place] [address] Performed By: #### 5 7021-8 ####[facility] [id number] [place] [address] [place] MCV (RBC) [Entitic vol] 88.9 fL Normal 80.0-100.0 [facility] Comment on above: Order Comment: Speci men Type: BLOOD SPECIMENOrdering Facility: [facility] Address: [address] [place] [address] Performed By: #### 5 7021-8 ####[facility] [id number] [place] [address] [place] Monocytes (Bld) [#/Vol] 0.48 10*3/uL Normal <0.87 [facility] Comment on above: Order Comment: Speci men Type: BLOOD SPECIMENOrdering Facility: [facility] Address: [address] [place] [address] Performed By: #### 5 7021-8 ####[facility] LABCLIA [id number] [address] [address] [place] Monocytes/100 WBC (Bld) 10.9 % Normal [facility] Comment on above: Order Comment: Speci men Type: BLOOD SPECIMENOrdering Facility: [facility] Address: [address] [place] [address] Performed By: #### 5 7021-8 ####[facility]CLIA [id number] [place] [address] [place] Neutrophils (Bld) [#/Vol] 2.34 10*3/uL Normal 1.45-7.50 [facility] Comment on above: Order Comment: Speci men Type: BLOOD SPECIMENOrdering Facility: [facility] Address: [address] [place] [address] Performed By: #### 5 7021-8 ####[facility]CLIA [id number] [place] [id number] [place] Neutrophils/100 WBC (Bld) 53.1 % Normal [facility] Comment on above: Order Comment: Speci men Type: BLOOD SPECIMENOrdering Facility: [facility] Address: [address] [place] [address] Performed By: #### 5 7021-8 ####[facility]CLIA [id number] [address] [address] [place] Nucleated RBC (Bld) [#/Vol] 10*3/uL Normal <0.01 [facility] Comment on above: Order Comment: Speci men Type: BLOOD SPECIMENOrdering Facility: [facility] Address: [address] [place], [place] [address] Performed By: #### 5 7021-8 ####[facility]CLIA [id number] [place] [address] [place] Nucleated RBC/100 WBC (Bld) [Ratio] 0.0 /100 WBC Normal [facility] Comment on above: Order Comment: Speci men Type: BLOOD SPECIMENOrdering Facility: [facility] Address: [address] [place] [address] Performed By: #### 5 7021-8 ####[facility]CLIA [id number] [place] [address] [place] Platelet mean volume (Bld) [Entitic vol] 11.0 fL Normal 9.0-12.7 [facility] Comment on above: Order Comment: Speci men Type: BLOOD SPECIMENOrdering Facility: [facility] Address: [address] [place] [address] Performed By: #### 5 7021-8 ####[facility]CLIA [id number] [place] [address] [place] Platelets (Bld) [#/Vol] 176 10*3/uL Normal 150-400 [facility] Comment on above: Order Comment: Speci men Type: BLOOD SPECIMENOrdering Facility: [facility] Address: [address] [place] [address] Performed By: #### 5 7021-8 ####[facility]CLIA [id number] [place] [address] [place] RBC (Bld) [#/Vol] 4.05 10*6/uL Normal 3.90-5.20 [facility] Comment on above: Order Comment: Speci men Type: BLOOD SPECIMENOrdering Facility: [facility] Address: [address] [place] [address] Performed By: #### 5 7021-8 ####[facility]CLIA [id number] [place] [id number] [place] WBC (Bld) [#/Vol] 4.40 10*3/uL Normal 3.70-11.00 [facility] Comment on above: Order Comment: Speci men Type: BLOOD SPECIMENOrdering Facility: [facility] Address: [address] [place] [address] Performed By: #### 5 7021-8 ####[facility]CLIA [id number] [place] [address] [place] CNOVon 01-26-2025 CNOV Normal [facility] NT-proBNP SerPl-mCncon 01-26 Natriuretic peptide.B prohormone N-Terminal [Mass/Vol] 762 pg/mL High <450 [facility] Comment on above: Order Comment: Speci men Type: BLOOD SPECIMENOrdering Facility: [facility] Address: [address] [place] [address] Performed By: #### 3 3762-6, 3016-3, 97445-8 ####[facility]CLIA [id number] [place] [address] [place] TSH SerPl-aCncon 01-26-2025 TSH Qn 3.170 m[IU]/L Normal 0.270-4.200 [facility] Comment on above: Order Comment: Speci men Type: BLOOD SPECIMENOrdering Facility: [facility] Address: [address] [place] [address] Performed By: #### 3 3762-6, 3016-3, 50859-6 ####[facility]CLIA [id number] [place] [address] [place] XR CHEST 2V FRONTAL/LATon XR CHEST 2V FRONTAL/LAT Normal [facility] CNPNon 12-19-2024 CNPN Normal [facility] Bacteria Ur Culton Bacteria identified Cx Nom (U) Abnormal [facility] Comment on above: Performed By: #### 6 30-4 ####[facility] [id number] [place] [id number] [place] CNOVon 12-17-2024 CNOV Normal [facility] UA DIP, URINE (POC)on 2024 BILIRUBIN UA (POCT) Negative Negative [facility] CLARITY UA (POCT) Clear [facility] COLOR UA (POCT) Yellow [facility] GLUCOSE UA (POCT) Negative Negative mg/dL [facility] Hemoglobin Ql (U) Trace-intact Abnormal Negative [facility] Interpretation and review of laboratory results Abnormal [facility] KETONE UA (POCT) Negative Negative mg/dL [facility] LEUKOCYTES UA (POCT) Small Abnormal Negative [facility] NITRITE UA (POCT) Positive Abnormal Negative [facility] PH UA (POCT) 5.5 4.5 - 8.0 [facility] Protein Ql (U) 100 mg/dL Abnormal Negative [facility] SPECIFIC GRAVITY UA (POCT) >=1.030 1.005 - 1.030 [facility] UROBILINOGEN UA (POCT) 0.2 Betina l E.U./dL [facility] Location:[facility], [address] [place] [address], [place], [place], [id number] [place] [address] POINT OF CARE [facility] CNPNon 12-05-2024 CNPN Normal [facility] CNPNon 11-24-2024 CNPN Normal [facility] CNPTOUTREACHon 11-21-2024 CNPTOUTREACH Normal [facility] CNOVon 11-19-2024 CNOV Normal [facility] XR LUMBAR 3V AP/LAT/L5-S1on 11-19-2024 XR LUMBAR 3V AP/LAT/L5-S1 Normal [facility] CNPTOUTREACHon 11-14-2024 CNPTOUTREACH Normal [facility] CNPNon 11-13-2024 CNPN Normal [facility] CNPTOUTREACHon 11-11-2024 CNPTOUTREACH Normal [facility] CNPNon 11-10-2024 CNPN Normal [facility] CNPTOUTREACHon 11-10-2024 CNPTOUTREACH Normal [facility] CNPNon 11-07-2024 CNPN Normal [facility] CNPTOUTREACHon 11-07-2024 CNPTOUTREACH Normal [facility] CNPNon 11-06-2024 CNPN Normal [facility] CNOVon 11-03-2024 CNOV Normal [facility] CNOVon 10-31-2024 CNOV Normal [facility] CNPNon 10-30-2024 CNPN Normal [facility] CNPTOUTREACHon 10-29-2024 CNPTOUTREACH Normal [facility] CNPTOUTREACHon 10-28-2024 CNPTOUTREACH Normal [facility] NUTRITIONon 10-27-2024 NUTRITION Normal [facility] THERAPY NTon 10-27-2024 THERAPY NT Normal [facility] Basic metabolic 2000 panelon 10-24-2024 Anion gap [Moles/Vol] 12 mmol/L Normal 8-15 [facility] Comment on above: Order Comment: Speci men Type: BLOOD SPECIMENOrdering Facility: [facility] Address: [address] [place] [address] Performed By: #### 2 4321-2 ####[facility]CLIA [id number] [place] [address] [place] Calcium [Mass/Vol] 9.2 mg/dL Normal 8.5-10.2 [facility] Comment on above: Order Comment: Speci men Type: BLOOD SPECIMENOrdering Facility: [facility] Address: [address] [place] [address] Performed By: #### 2 4321-2 ####[facility]IA [id number] [place] [address] [place] Chloride [Moles/Vol] 106 mmol/L Normal 98-107 [facility] Comment on above: Order Comment: Speci men Type: BLOOD SPECIMENOrdering Facility: [facility] Address: [address] [place] [address] Performed By: #### 2 4321-2 ####[facility]CLIA [id number] [place] [address] [place] CO2 [Moles/Vol] 25 mmol/L Normal 22-30 [facility] Comment on above: Order Comment: Speci men Type: BLOOD SPECIMENOrdering Facility: [facility] Address: [address] [place] [address] Performed By: #### 2 4321-2 ####[facility]CLIA [id number] [place] [address] [place] Creatinine [Mass/Vol] 1.06 mg/dL High 0.58-0.96 [facility] Comment on above: Order Comment: Speci men Type: BLOOD SPECIMENOrdering Facility: [facility] Address: [address] [place] [address] Performed By: #### 2 4321-2 ####[facility]CL[facility] [id number] [place] [address] [place] Creatinine and Glomerular filtration rate.predicted panel (S/P/Bld) 53 mL/min/1.73m??? Low >=60 [facility] Comment on above: Order Comment: Speci men Type: BLOOD SPECIMENOrdering Facility: [facility] Address: [address] [place] [address] Result Comment: Callie mated Glomerular Filtration Rate [...] actual GFR. Performed By: #### 2 4321-2 ####[facility]CLIA [id number] [place] [address] [place] Glucose [Mass/Vol] 86 mg/dL Normal 74-99 [facility] Comment on above: Order Comment: Speci men Type: BLOOD SPECIMENOrdering Facility: [facility] Address: [address] [place] [address] Result Comment: The [place] [employer] (ADA) provides guidance for cutoff [...] Standards of Medical Care in Diabetes 2016, [place] [employer]. Diabetes Care. 2016.39(Suppl 1). Performed By: #### 2 4321-2 ####[facility]CLIA [id number] [place] [address] [place] Potassium [Moles/Vol] 4.0 mmol/L Normal 3.7-5.1 [facility] Comment on above: Order Comment: Speci men Type: BLOOD SPECIMENOrdering Facility: [facility] Address: [address] [place] [address] Performed By: #### 2 4321-2 ####[facility] [id number] [place] [address] [place] Sodium [Moles/Vol] 143 mmol/L Normal 136-144 [facility] Comment on above: Order Comment: Speci men Type: BLOOD SPECIMENOrdering Facility: [facility] Address: [address] [place] [address] Performed By: #### 2 1-2 ####[facility]CL[facility] [id number] [place] [address] [place] Urea nitrogen [Mass/Vol] 24 mg/dL High 7-21 [facility] Comment on above: Order Comment: Speci men Type: BLOOD SPECIMENOrdering Facility: [facility] Address: [address] [place] [address] Performed By: #### 2 4321-2 ####[facility]CLIA [id number] [place] [address] [place] CASE MANAGEMon 10-24-2024 CASE MANAGEM Normal [facility] CBC panel Auto (Bld)on 10-24 Erythrocyte distribution width (RBC) [Ratio] 14.4 % Normal 11.5-15.0 [facility] Comment on above: Order Comment: Speci men Type: BLOOD SPECIMENOrdering Facility: [facility] Address: [address] [place] [address] Performed By: #### 5 8410-2 ####[facility] [id number] [place] [address] [place] Hematocrit (Bld) [Volume fraction] 37.5 % Normal 36.0-46.0 [facility] Comment on above: Order Comment: Speci men Type: BLOOD SPECIMENOrdering Facility: [facility] Address: [address] [place] [address] Performed By: #### 5 8410-2 ####[facility] [id number] [place] [address] [place] Hemoglobin (Bld) [Mass/Vol] 11.9 g/dL Normal 11.5-15.5 [facility] Comment on above: Order Comment: Speci men Type: BLOOD SPECIMENOrdering Facility: [facility] Address: [address] [place] [address] Performed By: #### 5 8410-2 ####[facility] [id number] [place] [address] [place] MCH (RBC) [Entitic mass] 27.4 pg Normal 26.0-34.0 [facility] Comment on above: Order Comment: Speci men Type: BLOOD SPECIMENOrdering Facility: [facility] Address: [address] [place] [address] Performed By: #### 5 8410-2 ####[facility] [id number] [place] [address] [place] MCHC (RBC) [Mass/Vol] 31.7 g/dL Normal 30.5-36.0 [facility] Comment on above: Order Comment: Speci men Type: BLOOD SPECIMENOrdering Facility: [facility] Address: [address] [place] [address] Performed By: #### 5 8410-2 ####[facility] [id number] [place] [address] [place] MCV (RBC) [Entitic vol] 86.2 fL Normal 80.0-100.0 [facility] Comment on above: Order Comment: Speci men Type: BLOOD SPECIMENOrdering Facility: [facility] Address: [address] [place] [address] Performed By: #### 5 8410-2 ####[facility] [id number] [place] [address] [place] Nucleated RBC (Bld) [#/Vol] 10*3/uL Normal <0.01 [facility] Comment on above: Order Comment: Speci men Type: BLOOD SPECIMENOrdering Facility: [facility] Address: [address] [place] [address] Performed By: #### 5 8410-2 ####[facility] [id number] [place] [address] [place] Platelet mean volume (Bld) [Entitic vol] 10.8 fL Normal 9.0-12.7 [facility] Comment on above: Order Comment: Speci men Type: BLOOD SPECIMENOrdering Facility: [facility] Address: [address] [place] [address] Performed By: #### 5 8410-2 ####[facility] [id number] [place] [address] [place] Platelets (Bld) [#/Vol] 157 10*3/uL Normal 150-400 [facility] Comment on above: Order Comment: Speci men Type: BLOOD SPECIMENOrdering Facility: [facility] Address: [address] [place] [address] Performed By: #### 5 8410-2 ####[facility] [id number] [place] [address] [place] RBC (Bld) [#/Vol] 4.35 10*6/uL Normal 3.90-5.20 [facility] Comment on above: Order Comment: Speci men Type: BLOOD SPECIMENOrdering Facility: [facility] Address: [address] [place] [address] Performed By: #### 5 8410-2 ####[facility] [id number] [place] [address] [place] WBC (Bld) [#/Vol] 5.38 10*3/uL Normal 3.70-11.00 [facility] Comment on above: Order Comment: Speci men Type: BLOOD SPECIMENOrdering Facility: [facility] Address: [address] [place] [address] Performed By: #### 5 8410-2 ####[facility] [id number] [place] [address] [place] THERAPY NTon 10-24-2024 THERAPY NT Normal [facility] Basic metabolic 2000 panelon 10-23-2024 Anion gap [Moles/Vol] 16 mmol/L High 8-15 [facility] Comment on above: Order Comment: Speci men Type: BLOOD SPECIMENOrdering Facility: [facility] Address: [address] [place] [address] Performed By: #### 2 4321-2 ####[facility] LABIA [id number] [place] [address] [place] Calcium [Mass/Vol] 9.7 mg/dL Normal 8.5-10.2 [facility] Comment on above: Order Comment: Speci men Type: BLOOD SPECIMENOrdering Facility: [facility] Address: [address] [place] [address] Performed By: #### 2 4321-2 ####[facility] LABCLIA [id number] [place] [address] [place] Chloride [Moles/Vol] 106 mmol/L Normal 98-107 [facility] Comment on above: Order Comment: Speci men Type: BLOOD SPECIMENOrdering Facility: [facility] Address: [address] [place] [address] Performed By: #### 2 4321-2 ####[facility] LABCLIA [id number] [place] [address] [place] CO2 [Moles/Vol] 19 mmol/L Low 22-30 [facility] Comment on above: Order Comment: Speci men Type: BLOOD SPECIMENOrdering Facility: [facility] Address: [address] [place] [address] Performed By: #### 2 4321-2 ####[facility] LABCLIA [id number] [place] [address] [place] Creatinine [Mass/Vol] 1.05 mg/dL High 0.58-0.96 [facility] Comment on above: Order Comment: Speci men Type: BLOOD SPECIMENOrdering Facility: [facility] Address: [address] [place] [address] Performed By: #### 2 4321-2 ####[facility] [id number] [place] [address] [place] Creatinine and Glomerular filtration rate.predicted panel (S/P/Bld) 53 mL/min/1.73m??? Low >=60 [facility] Comment on above: Order Comment: Speci men Type: BLOOD SPECIMENOrdering Facility: [facility] Address: [address] [place] [address] Result Comment: Callie mated Glomerular Filtration Rate [...] actual GFR. Performed By: #### 2 4321-2 ####[facility] LABCLIA [id number] [place] [address] [place] Glucose [Mass/Vol] 96 mg/dL Normal 74-99 [facility] Comment on above: Order Comment: Laura mejía Type: BLOOD SPECIMENOrdering Facility: [facility] Address: [address] [place] [address] Result Comment: The [place] [employer] (ADA) provides guidance for cutoff [...] Standards of Medical Care in Diabetes 2016, [place] [employer]. Diabetes Care. 2016.39(Suppl 1). Performed By: #### 2 4321-2 ####[facility] LABCLIA [id number] [place] [id number] [place] Potassium [Moles/Vol] 4.1 mmol/L Normal 3.7-5.1 [facility] Comment on above: Order Comment: Laura mejía Type: BLOOD SPECIMENOrdering Facility: [facility] Address: [address] [place] [address] Performed By: #### 2 4321-2 ####[facility] LABCLIA [id number] [facility] [address] [address] [place] Sodium [Moles/Vol] 141 mmol/L Normal 136-144 [facility] Comment on above: Order Comment: Speci men Type: BLOOD SPECIMENOrdering Facility: [facility] Address: [address] [place] [address] Performed By: #### 2 4321-2 ####[facility]CLIA [id number] [place] [address] [place] Urea nitrogen [Mass/Vol] 27 mg/dL High 7-21 [facility] Comment on above: Order Comment: Speci men Type: BLOOD SPECIMENOrdering Facility: [facility] Address: [address] [place] [address] Performed By: #### 2 4321-2 ####[facility] [id number] [place] [address] [place] CASE MANAGEMon 10-23-2024 CASE MANAGEM Normal [facility] CBC panel Auto (Bld)on 10-23 Erythrocyte distribution width (RBC) [Ratio] 14.5 % Normal 11.5-15.0 [facility] Comment on above: Order Comment: Speci men Type: BLOOD SPECIMENOrdering Facility: [facility] Address: [address] [place] [address] Performed By: #### 5 8410-2 ####[facility] [id number] [place] [address] [place] Hematocrit (Bld) [Volume fraction] 38.1 % Normal 36.0-46.0 [facility] Comment on above: Order Comment: Speci men Type: BLOOD SPECIMENOrdering Facility: [facility] Address: [address] [place] [address] Performed By: #### 5 8410-2 ####[facility] [id number] [place] [address] [place] Hemoglobin (Bld) [Mass/Vol] 12.1 g/dL Normal 11.5-15.5 [facility] Comment on above: Order Comment: Speci men Type: BLOOD SPECIMENOrdering Facility: [facility] Address: [address] [place] [address] Performed By: #### 5 8410-2 ####[facility] [id number] [place] [address] [place] MCH (RBC) [Entitic mass] 27.1 pg Normal 26.0-34.0 [facility] Comment on above: Order Comment: Speci men Type: BLOOD SPECIMENOrdering Facility: [facility] Address: [address] [place] [address] Performed By: #### 5 8410-2 ####[facility] [id number] [place] [address] [place] MCHC (RBC) [Mass/Vol] 31.8 g/dL Normal 30.5-36.0 [facility] Comment on above: Order Comment: Speci men Type: BLOOD SPECIMENOrdering Facility: [facility] Address: [address] [place] [address] Performed By: #### 5 8410-2 ####[facility] [id number] [place] [address] [place] MCV (RBC) [Entitic vol] 85.2 fL Normal 80.0-100.0 [facility] Comment on above: Order Comment: Speci men Type: BLOOD SPECIMENOrdering Facility: [facility] Address: [address] [place] [address] Performed By: #### 5 8410-2 ####[facility]IA [id number] [place] [address] [place] Nucleated RBC (Bld) [#/Vol] 10*3/uL Normal <0.01 [facility] Comment on above: Order Comment: Speci men Type: BLOOD SPECIMENOrdering Facility: [facility] Address: [address] [place] [address] Performed By: #### 5 8410-2 ####[facility] [id number] [place] [address] [place] Platelet mean volume (Bld) [Entitic vol] 10.8 fL Normal 9.0-12.7 [facility] Comment on above: Order Comment: Speci men Type: BLOOD SPECIMENOrdering Facility: [facility] Address: [address] [place] [address] Performed By: #### 5 8410-2 ####[facility] LABCLIA [id number] [place] [address] [place] Platelets (Bld) [#/Vol] 149 10*3/uL Low 150-400 [facility] Comment on above: Order Comment: Speci men Type: BLOOD SPECIMENOrdering Facility: [facility] Address: [address] [place] [address] Performed By: #### 5 8410-2 ####[facility] [id number] [place] [address] [place] RBC (Bld) [#/Vol] 4.47 10*6/uL Normal 3.90-5.20 [facility] Comment on above: Order Comment: Speci men Type: BLOOD SPECIMENOrdering Facility: [facility] Address: [address] [place] [address] Performed By: #### 5 8410-2 ####[facility] [id number] [place] [address] [place] WBC (Bld) [#/Vol] 4.76 10*3/uL Normal 3.70-11.00 [facility] Comment on above: Order Comment: Speci men Type: BLOOD SPECIMENOrdering Facility: [facility] Address: [address] [place] [address] Performed By: #### 5 8410-2 ####[facility] LABCLIA [id number] [place] [address] [place] THERAPY NTon 10-23-2024 THERAPY NT Normal [facility] Basic metabolic 2000 panelon 10-22-2024 Anion gap [Moles/Vol] 12 mmol/L Normal 8-15 [facility] Comment on above: Order Comment: Speci men Type: BLOOD SPECIMENOrdering Facility: [facility] Address: [address] [place] [address] Performed By: #### 2 4321-2 ####[facility]CLIA [id number] [place] [address] [place] Calcium [Mass/Vol] 9.4 mg/dL Normal 8.5-10.2 [facility] Comment on above: Order Comment: Speci men Type: BLOOD SPECIMENOrdering Facility: [facility] Address: [address] [place] [address] Performed By: #### 2 4321-2 ####[facility]CLIA [id number] [place] [address] [place] Chloride [Moles/Vol] 108 mmol/L High 98-107 [facility] Comment on above: Order Comment: Speci men Type: BLOOD SPECIMENOrdering Facility: [facility] Address: [address] [place] [address] Performed By: #### 2 4321-2 ####[facility]CLIA [id number] [place] [address] [place] CO2 [Moles/Vol] 24 mmol/L Normal 22-30 [facility] Comment on above: Order Comment: Speci men Type: BLOOD SPECIMENOrdering Facility: [facility] Address: [address] [place] [address] Performed By: #### 2 4321-2 ####[facility] LABCLIA [id number] [place] [address] [place] Creatinine [Mass/Vol] 1.10 mg/dL High 0.58-0.96 [facility] Comment on above: Order Comment: Speci men Type: BLOOD SPECIMENOrdering Facility: [facility] Address: [address] [place] [address] Performed By: #### 2 4321-2 ####[facility] [id number] [place] [address] [place] Creatinine and Glomerular filtration rate.predicted panel (S/P/Bld) 50 mL/min/1.73m??? Low >=60 [facility] Comment on above: Order Comment: Laura mejía Type: BLOOD SPECIMENOrdering Facility: [facility] Address: [address] [place] [address] Result Comment: Callie mated Glomerular Filtration Rate [...] actual GFR. Performed By: #### 2 4321-2 ####[facility] [id number] [place] [address] [place] Glucose [Mass/Vol] 95 mg/dL Normal 74-99 [facility] Comment on above: Order Comment: Laura mejía Type: BLOOD SPECIMENOrdering Facility: [facility] Address: [address] [place] [address] Result Comment: The [place] [employer] (ADA) provides guidance for cutoff [...] Standards of Medical Care in Diabetes 2016, [place] [employer]. Diabetes Care. 2016.39(Suppl 1). Performed By: #### 2 4321-2 ####[facility]CLIA [id number] [place] [address] [place] Potassium [Moles/Vol] 3.9 mmol/L Normal 3.7-5.1 [facility] Comment on above: Order Comment: Speci men Type: BLOOD SPECIMENOrdering Facility: [facility] Address: [address] [place] [address] Performed By: #### 2 4321-2 ####[facility] LABCLIA [id number] [place] [address] [place] Sodium [Moles/Vol] 144 mmol/L Normal 136-144 [facility] Comment on above: Order Comment: Speci men Type: BLOOD SPECIMENOrdering Facility: [facility] Address: [address] [place] [address] Performed By: #### 2 4321-2 ####[facility]CLIA [id number] [place] [address] [place] Urea nitrogen [Mass/Vol] 23 mg/dL High 7-21 [facility] Comment on above: Order Comment: Speci men Type: BLOOD SPECIMENOrdering Facility: [facility] Address: [address] [place] [address] Performed By: #### 2 4321-2 ####[facility]CLIA [id number] [place] [address] [place] CBC panel Auto (Bld)on 10-22 Erythrocyte distribution width (RBC) [Ratio] 14.4 % Normal 11.5-15.0 [facility] Comment on above: Order Comment: Speci men Type: BLOOD SPECIMENOrdering Facility: [facility] Address: [address] [place] [address] Performed By: #### 5 8410-2 ####[facility] LABCLIA [id number] [place] [address] [place] Hematocrit (Bld) [Volume fraction] 37.7 % Normal 36.0-46.0 [facility] Comment on above: Order Comment: Speci men Type: BLOOD SPECIMENOrdering Facility: [facility] Address: [address] [place] [address] Performed By: #### 5 8410-2 ####[facility] [id number] [place] [address] [place] Hemoglobin (Bld) [Mass/Vol] 11.9 g/dL Normal 11.5-15.5 [facility] Comment on above: Order Comment: Speci men Type: BLOOD SPECIMENOrdering Facility: [facility] Address: [address] [place] [address] Performed By: #### 5 8410-2 ####[facility] [id number] [place] [address] [place] MCH (RBC) [Entitic mass] 26.9 pg Normal 26.0-34.0 [facility] Comment on above: Order Comment: Speci men Type: BLOOD SPECIMENOrdering Facility: [facility] Address: [address] [place] [address] Performed By: #### 5 8410-2 ####[facility] [id number] [place] [address] [place] MCHC (RBC) [Mass/Vol] 31.6 g/dL Normal 30.5-36.0 [facility] Comment on above: Order Comment: Speci men Type: BLOOD SPECIMENOrdering Facility: [facility] Address: [address] [place] [address] Performed By: #### 5 8410-2 ####[facility] [id number] [place] [address] [place] MCV (RBC) [Entitic vol] 85.3 fL Normal 80.0-100.0 [facility] Comment on above: Order Comment: Speci men Type: BLOOD SPECIMENOrdering Facility: [facility] Address: [address] [place] [address] Performed By: #### 5 8410-2 ####[facility]CLIA [id number] [place] [address] [place] Nucleated RBC (Bld) [#/Vol] 10*3/uL Normal <0.01 [facility] Comment on above: Order Comment: Speci men Type: BLOOD SPECIMENOrdering Facility: [facility] Address: [address] [place] [address] Performed By: #### 5 8410-2 ####[facility] [id number] [place] [address] [place] Platelet mean volume (Bld) [Entitic vol] 10.3 fL Normal 9.0-12.7 [facility] Comment on above: Order Comment: Speci men Type: BLOOD SPECIMENOrdering Facility: [facility] Address: [address] [place] [address] Performed By: #### 5 8410-2 ####[facility]CLIA [id number] [place] [address] [place] Platelets (Bld) [#/Vol] 157 10*3/uL Normal 150-400 [facility] Comment on above: Order Comment: Speci men Type: BLOOD SPECIMENOrdering Facility: [facility] Address: [address] [place] [address] Performed By: #### 5 8410-2 ####[facility]CLIA [id number] [place] [address] [place] RBC (Bld) [#/Vol] 4.42 10*6/uL Normal 3.90-5.20 [facility] Comment on above: Order Comment: Speci men Type: BLOOD SPECIMENOrdering Facility: [facility] Address: [address] [place] [address] Performed By: #### 5 8410-2 ####[facility]CLIA [id number] [place] [address] [place] WBC (Bld) [#/Vol] 3.40 10*3/uL Low 3.70-11.00 [facility] Comment on above: Order Comment: Speci men Type: BLOOD SPECIMENOrdering Facility: [facility] Address: [address] [place] [address] Performed By: #### 5 8410-2 ####[facility]CLIA [id number] [place] [address] [place] Basic metabolic 2000 panelon 10-21-2024 Anion gap [Moles/Vol] 14 mmol/L Normal 8-15 [facility] Comment on above: Order Comment: Speci men Type: BLOOD SPECIMENOrdering Facility: [facility] Address: [address] [place] [address] Performed By: #### 2 4321-2 ####[facility]CLIA [id number] [place] [address] [place] Calcium [Mass/Vol] 9.4 mg/dL Normal 8.5-10.2 [facility] Comment on above: Order Comment: Speci men Type: BLOOD SPECIMENOrdering Facility: [facility] Address: [address] [place] [address] Performed By: #### 2 4321-2 ####[facility]CLIA [id number] [place] [address] [place] Chloride [Moles/Vol] 104 mmol/L Normal 98-107 [facility] Comment on above: Order Comment: Speci men Type: BLOOD SPECIMENOrdering Facility: [facility] Address: [address] [place] [address] Performed By: #### 2 4321-2 ####[facility]CLIA [id number] [place] [address] [place] CO2 [Moles/Vol] 23 mmol/L Normal 22-30 [facility] Comment on above: Order Comment: Speci men Type: BLOOD SPECIMENOrdering Facility: [facility] Address: [address] [place] [address] Performed By: #### 2 4321-2 ####[facility]CLIA [id number] [place] [address] [place] Creatinine [Mass/Vol] 1.05 mg/dL High 0.58-0.96 [facility] Comment on above: Order Comment: Speci men Type: BLOOD SPECIMENOrdering Facility: [facility] Address: [address] [place] [address] Performed By: #### 2 4321-2 ####[facility] [id number] [place] [address] [place] Creatinine and Glomerular filtration rate.predicted panel (S/P/Bld) 53 mL/min/1.73m??? Low >=60 [facility] Comment on above: Order Comment: Speci men Type: BLOOD SPECIMENOrdering Facility: [facility] Address: [address] [place] [address] Result Comment: Callie mated Glomerular Filtration Rate [...] actual GFR. Performed By: #### 2 4321-2 ####[facility] [id number] [place] [address] [place] Glucose [Mass/Vol] 99 mg/dL Normal 74-99 [facility] Comment on above: Order Comment: Speci men Type: BLOOD SPECIMENOrdering Facility: [facility] Address: [address] [place] [address] Result Comment: The [place] [employer] (ADA) provides guidance for cutoff [...] Standards of Medical Care in Diabetes 2016, [place] [employer]. Diabetes Care. 2016.39(Suppl 1). Performed By: #### 2 4321-2 ####[facility]CL[facility] [id number] [place] [address] [place] Potassium [Moles/Vol] 3.7 mmol/L Normal 3.7-5.1 [facility] Comment on above: Order Comment: Speci men Type: BLOOD SPECIMENOrdering Facility: [facility] Address: [address] [place] [address] Performed By: #### 2 4321-2 ####[facility] [id number] [place] [address] [place] Sodium [Moles/Vol] 141 mmol/L Normal 136-144 [facility] Comment on above: Order Comment: Rafaeli men Type: BLOOD SPECIMENOrdering Facility: [facility] Address: [address] [place] [address] Performed By: #### 2 4321-2 ####[facility]CLIA [id number] [place] [id number] [place] Urea nitrogen [Mass/Vol] 19 mg/dL Normal 7-21 [facility] Comment on above: Order Comment: Speci men Type: BLOOD SPECIMENOrdering Facility: [facility] Address: [address] [place] [address] Performed By: #### 2 4321-2 ####[facility]CLIA [id number] [place] [id number] [place] CASE [facility] 10-21-2024 CASE MANAGEM Normal [facility] CBC panel Auto (Bld)on 10-21 Erythrocyte distribution width (RBC) [Ratio] 14.5 % Normal 11.5-15.0 [facility] Comment on above: Order Comment: Speci men Type: BLOOD SPECIMENOrdering Facility: [facility] Address: [address] [place] [address] Performed By: #### 5 8410-2 ####[facility] [id number] [place] [address] [place] Hematocrit (Bld) [Volume fraction] 39.2 % Normal 36.0-46.0 [facility] Comment on above: Order Comment: Speci men Type: BLOOD SPECIMENOrdering Facility: [facility] Address: [address] [place] [address] Performed By: #### 5 8410-2 ####[facility] [id number] [place] [address] [place] Hemoglobin (Bld) [Mass/Vol] 12.5 g/dL Normal 11.5-15.5 [facility] Comment on above: Order Comment: Speci men Type: BLOOD SPECIMENOrdering Facility: [facility] Address: [address] [place] [address] Performed By: #### 5 8410-2 ####[facility] [id number] [place] [address] [place] MCH (RBC) [Entitic mass] 27.0 pg Normal 26.0-34.0 [facility] Comment on above: Order Comment: Speci men Type: BLOOD SPECIMENOrdering Facility: [facility] Address: [address] [place] [address] Performed By: #### 5 8410-2 ####[facility] [id number] [place] [address] [place] MCHC (RBC) [Mass/Vol] 31.9 g/dL Normal 30.5-36.0 [facility] Comment on above: Order Comment: Speci men Type: BLOOD SPECIMENOrdering Facility: [facility] Address: [address] [place] [address] Performed By: #### 5 8410-2 ####[facility] [id number] [place] [address] [place] MCV (RBC) [Entitic vol] 84.7 fL Normal 80.0-100.0 [facility] Comment on above: Order Comment: Speci men Type: BLOOD SPECIMENOrdering Facility: [facility] Address: [address] [place] [address] Performed By: #### 5 8410-2 ####[facility] [id number] [place] [address] [place] Nucleated RBC (Bld) [#/Vol] 10*3/uL Normal <0.01 [facility] Comment on above: Order Comment: Speci men Type: BLOOD SPECIMENOrdering Facility: [facility] Address: [address] [place] [address] Performed By: #### 5 8410-2 ####[facility] [id number] [place] [address] [place] Platelet mean volume (Bld) [Entitic vol] 10.4 fL Normal 9.0-12.7 [facility] Comment on above: Order Comment: Speci men Type: BLOOD SPECIMENOrdering Facility: [facility] Address: [address] [place] [address] Performed By: #### 5 8410-2 ####[facility] [id number] [place] [address] [place] Platelets (Bld) [#/Vol] 179 10*3/uL Normal 150-400 [facility] Comment on above: Order Comment: Speci men Type: BLOOD SPECIMENOrdering Facility: [facility] Address: [address] [place] [address] Performed By: #### 5 8410-2 ####[facility] [id number] [place] [address] [place] RBC (Bld) [#/Vol] 4.63 10*6/uL Normal 3.90-5.20 [facility] Comment on above: Order Comment: Speci men Type: BLOOD SPECIMENOrdering Facility: [facility] Address: [address] [place] [address] Performed By: #### 5 8410-2 ####[facility] [id number] [place] [address] [place] WBC (Bld) [#/Vol] 3.75 10*3/uL Normal 3.70-11.00 [facility] Comment on above: Order Comment: Speci men Type: BLOOD SPECIMENOrdering Facility: [facility] Address: [address] [place] [address] Performed By: #### 5 8410-2 ####[facility] [id number] [place] [address] [place] HbA1c (Bld)on 10-21-2024 Average glucose Estimated from glycated hemoglobin (Bld) [Mass/Vol] 97 mg/dL Normal [facility] Comment on above: Order Comment: Speci men Type: BLOOD SPECIMENOrdering Facility: [facility] Address: [address] [place] [address] Result Comment: eAG: (Estimated average glucose) is a calculated value from HgbA1c and is order entry representative of the average blood glucose level in the last 2-3 month period. Performed By: #### 5 5454-3 ####[facility] [id number] [place] [address] [place] HbA1c (Bld) [Mass fraction] 5.0 % Normal 4.3-5.6 [facility] Comment on above: Order Comment: Speci men Type: BLOOD SPECIMENOrdering Facility: [facility] Address: [address] [place] [address] Result Comment: [place] Diabetes Association guidelines indicate that patients with HgbA1c in the range 5.7-6.4% are at increased risk for development of diabetes, and intervention by lifestyle modification may be beneficial. HgbA1c greater or equal to 6.5% is considered diagnostic of diabetes. Performed By: #### 5 5454-3 ####[facility] LABCLIA [id number] [address] [place] NURSING PROGon 10-21-2024 NURSING PROG Normal [facility] THERAPY NTon 10-21-2024 THERAPY NT Normal [facility] ALLIED HEALTHon 10-20-2024 ALLIED HEALTH Normal [facility] CASE MANAGEMon 10-20-2024 CASE MANAGEM Normal [facility] CASE MGT INIT ASSESon 2023 CASE MGT INIT ASSES Normal [facility] CBC panel Auto (Bld)on 10-20 Erythrocyte distribution width (RBC) [Ratio] 14.6 % Normal 11.5-15.0 [facility] Comment on above: Order Comment: Speci men Type: BLOOD SPECIMENOrdering Facility: [facility] Address: [address] [place] [address] Performed By: #### 5 8410-2 ####[facility] LABCLIA [id number] [place] [address] [place] Hematocrit (Bld) [Volume fraction] 38.7 % Normal 36.0-46.0 [facility] Comment on above: Order Comment: Speci men Type: BLOOD SPECIMENOrdering Facility: [facility] Address: [address] [place] [address] Performed By: #### 5 8410-2 ####[facility] LABCLIA [id number] [place] [address] [place] Hemoglobin (Bld) [Mass/Vol] 12.3 g/dL Normal 11.5-15.5 [facility] Comment on above: Order Comment: Speci men Type: BLOOD SPECIMENOrdering Facility: [facility] Address: [address] [place] [address] Performed By: #### 5 8410-2 ####[facility] LABIA [id number] [place] [address] [place] MCH (RBC) [Entitic mass] 26.7 pg Normal 26.0-34.0 [facility] Comment on above: Order Comment: Speci men Type: BLOOD SPECIMENOrdering Facility: [facility] Address: [address] [place] [address] Performed By: #### 5 8410-2 ####[facility] [id number] [place] [address] [place] MCHC (RBC) [Mass/Vol] 31.8 g/dL Normal 30.5-36.0 [facility] Comment on above: Order Comment: Speci men Type: BLOOD SPECIMENOrdering Facility: [facility] Address: [address] [place] [address] Performed By: #### 5 8410-2 ####[facility] LABIA [id number] [place] [address] [place] MCV (RBC) [Entitic vol] 83.9 fL Normal 80.0-100.0 [facility] Comment on above: Order Comment: Speci men Type: BLOOD SPECIMENOrdering Facility: [facility] Address: [address] [place] [address] Performed By: #### 5 8410-2 ####[facility] [id number] [place] [address] [place] Nucleated RBC (Bld) [#/Vol] 10*3/uL Normal <0.01 [facility] Comment on above: Order Comment: Speci men Type: BLOOD SPECIMENOrdering Facility: [facility] Address: [address] [place] [address] Performed By: #### 5 8410-2 ####[facility] LABCLIA [id number] [place] [address] [place] Platelet mean volume (Bld) [Entitic vol] 10.3 fL Normal 9.0-12.7 [facility] Comment on above: Order Comment: Speci men Type: BLOOD SPECIMENOrdering Facility: [facility] Address: [address] [place] [address] Performed By: #### 5 8410-2 ####[facility] LABIA [id number] [place] [address] [place] Platelets (Bld) [#/Vol] 173 10*3/uL Normal 150-400 [facility] Comment on above: Order Comment: Speci men Type: BLOOD SPECIMENOrdering Facility: [facility] Address: [address] [place] [address] Performed By: #### 5 8410-2 ####[facility] LABIA [id number] [place] [address] [place] RBC (Bld) [#/Vol] 4.61 10*6/uL Normal 3.90-5.20 [facility] Comment on above: Order Comment: Speci men Type: BLOOD SPECIMENOrdering Facility: [facility] Address: [address] [place] [address] Performed By: #### 5 8410-2 ####[facility] LABIA [id number] [place] [address] [place] WBC (Bld) [#/Vol] 4.22 10*3/uL Normal 3.70-11.00 [facility] Comment on above: Order Comment: Speci men Type: BLOOD SPECIMENOrdering Facility: [facility] Address: [address] [place] [address] Performed By: #### 5 8410-2 ####[facility] LABIA [id number] [address] [address] [place] CNCOon 10-20-2024 CNCO Letter Text Normal [facility] CNDSon 10-20-2024 CNDS Normal [facility] Comprehensive metabolic 2000 panelon 10-20-2024 Albumin [Mass/Vol] 4.0 g/dL Normal 3.9-4.9 [facility] Comment on above: Order Comment: Speci men Type: BLOOD SPECIMENOrdering Facility: [facility] Address: [address] [place] [address] Performed By: #### L IPNF, 2132-07, 76994-0, 8 ####[facility] LABCLIA [id number] [place] [address] [place] ALP [Catalytic activity/Vol] 114 U/L Normal 34-123 [facility] Comment on above: Order Comment: Speci men Type: BLOOD SPECIMENOrdering Facility: [facility] Address: [address] [place] [address] Performed By: #### L IPNF, 2132-07, 31766-9, 2284-06 ####[facility] LABCLIA [id number] [place] [address] [place] ALT [Catalytic activity/Vol] 7 U/L Normal 7-38 [facility] Comment on above: Order Comment: Speci men Type: BLOOD SPECIMENOrdering Facility: [facility] Address: [address] [place] [address] Performed By: #### L IPNF, 2132-07, 38155-3, 8 ####[facility] LABCLIA [id number] [place] [id number] [place] Anion gap [Moles/Vol] 13 mmol/L Normal 8-15 [facility] Comment on above: Order Comment: Speci men Type: BLOOD SPECIMENOrdering Facility: [facility] Address: [address] [place] [address] Performed By: #### L IPNF, 2132-07, , 2284-06 ####[facility] LABCLIA [id number] [place] [address] [place] AST [Catalytic activity/Vol] 12 U/L Low 13-35 [facility] Comment on above: Order Comment: Speci men Type: BLOOD SPECIMENOrdering Facility: [facility] Address: [address] [place] [address] Performed By: #### L IPANGELO, 2132-07, , 2284-06 ####[facility] LABCLIA [id number] [place] [address] [place] Bilirubin [Mass/Vol] 1.0 mg/dL Normal 0.2-1.3 [facility] Comment on above: Order Comment: Speci men Type: BLOOD SPECIMENOrdering Facility: [facility] Address: [address] [place] [address] Performed By: #### L IPANGELO, 2132-07, , 2284-06 ####[facility] LABCLIA [id number] [place] [address] [place] Calcium [Mass/Vol] 9.2 mg/dL Normal 8.5-10.2 [facility] Comment on above: Order Comment: Speci men Type: BLOOD SPECIMENOrdering Facility: [facility] Address: [address] [place] [address] Performed By: #### L IPNF, 2132-07, , 2284-06 ####[facility] LABCLIA [id number] [place] [id number] [place] Chloride [Moles/Vol] 104 mmol/L Normal 98-107 [facility] Comment on above: Order Comment: Speci men Type: BLOOD SPECIMENOrdering Facility: [facility] Address: [address] [place] [address] Performed By: #### L IPNF, 2132-07, , 2284-06 ####[facility] LABCLIA [id number] [address] [address] [place] CO2 [Moles/Vol] 24 mmol/L Normal 22-30 [facility] Comment on above: Order Comment: Speci men Type: BLOOD SPECIMENOrdering Facility: [facility] Address: [address] [place] [address] Performed By: #### L IPNF, 2132-07, , 2284-06 ####[facility] LABIA [id number] [address] [address] [place] Creatinine [Mass/Vol] 0.97 mg/dL High 0.58-0.96 [facility] Comment on above: Order Comment: Speci men Type: BLOOD SPECIMENOrdering Facility: [facility] Address: [address] [place] [address] Performed By: #### L IPNF, 2132-07, , 2284-06 ####[facility] LABIA [id number] [place] [address] [place] Creatinine and Glomerular filtration rate.predicted panel (S/P/Bld) 58 mL/min/1.73m??? Low >=60 [facility] Comment on above: Order Comment: Speci men Type: BLOOD SPECIMENOrdering Facility: [facility] Address: [address] [place] [address] Result Comment: Callie mated Glomerular Filtration Rate [...] By: #### L IPNF, 2132-07, , 2284-06 ####[facility] LABCLIA [id number] [address] [address] [place] Glucose [Mass/Vol] 136 mg/dL High 74-99 [facility] Comment on above: Order Comment: Speci men Type: BLOOD SPECIMENOrdering Facility: [facility] Address: [address] [place] [address] Result Comment: The [place] Diabetes Association (ADA) provides guidance for cutoff [...] Standards of Medical Care in Diabetes 2016, [place] [employer] Association. Diabetes Care. 2016.39(Suppl 1). Performed By: #### L IPANGELO, 2132-07, , 2284-06 ####[facility] LABCLIA [id number] [place] [address] [place] Potassium [Moles/Vol] 4.1 mmol/L Normal 3.7-5.1 [facility] Comment on above: Order Comment: Laura mejía Type: BLOOD SPECIMENOrdering Facility: [facility] Address: [address] [place] [address] Performed By: #### L IPNF, 2132-07, , 2284-06 ####[facility] LABCLIA [id number] [place] [address] [place] Protein [Mass/Vol] 6.4 g/dL Normal 6.3-8.0 [facility] Comment on above: Order Comment: Speci men Type: BLOOD SPECIMENOrdering Facility: [facility] Address: [address] [place] [address] Performed By: #### L IPNF, 2132-07, , 2284-06 ####[facility] LABCLIA [id number] [address] [address] [place] Sodium [Moles/Vol] 141 mmol/L Normal 136-144 [facility] Comment on above: Order Comment: Speci men Type: BLOOD SPECIMENOrdering Facility: [facility] Address: [address] [place] [address] Performed By: #### L BIRD, 2132-07, , 2284-06 ####[facility] LABCLIA [id number] [place] [address] [place] Urea nitrogen [Mass/Vol] 13 mg/dL Normal 7-21 [facility] Comment on above: Order Comment: Speci men Type: BLOOD SPECIMENOrdering Facility: [facility] Address: [address] [place] [address] Performed By: #### L BIRD, 2132-07, , 2284-06 ####[facility] [id number] [place] [address] [place] ECG COMPLETEon 10-20-2024 ECG COMPLETE Normal [facility] ECHO WITH AGITATED SALINE CO NTRASTon 10-20-2024 ECHO WITH AGITATED SALINE CONTRAST Normal [facility] Folate SerPl-mCncon 10-20-20 24 Folate [Mass/Vol] 18.9 ng/mL Normal >4.7 [facility] Comment on above: Order Comment: Speci men Type: BLOOD SPECIMENOrdering Facility: [facility] Address: [address] [place] [address] Performed By: #### L BIRD, 2132-07, , 2284-06 ####[facility] LABIA [id number] [place] [id number] [place] HISTORY PHYSICALon HISTORY PHYSICAL Normal [facility] LIPID PANEL, NONFASTINGon Cholesterol [Mass/Vol] 161 mg/dL Normal <200 [facility] Comment on above: Order Comment: Speci men Type: BLOOD SPECIMENOrdering Facility: [facility] Address: [address] [place] [address] Result Comment: <200 mg/dL, Desirable 200-239 mg/dL, Borderline high>239 mg/dL, High Performed By: #### L IPNF, 2132-07, , 2284-06 ####[facility] LABCLIA [id number] [place] [address] [place] HDL CHOLESTEROL, NF 50 mg/dL Normal >39 [facility] Comment on above: Order Comment: Speci men Type: BLOOD SPECIMENOrdering Facility: [facility] Address: [address] [place] [address] Result Comment: 40-5 9 mg/dL, Acceptable>59 mg/dL, High: Negative risk factor for coronary heart disease<40 mg/dL, Low: Positive risk factor for coronary heart disease Performed By: #### L IPNF, 2132-07, , 2284-06 ####[facility] LABCLIA [id number] [place] [address] [place] LDL CHOLESTEROL, NF 87 mg/dL Normal <100 [facility] Comment on above: Order Comment: Speci men Type: BLOOD SPECIMENOrdering Facility: [facility] Address: [address] [place] [address] Result Comment: <100 mg/dL, Optimal 100-129 mg/dL, Near optimal/above optimal 130-159 mg/dL, Borderline high 160-189 mg/dL, High>189 mg/dL, Very highSecondary prevention optimal LDL Cholesterol levels are recommended to be < 70 mg/dL Performed By: #### L IPNF, 2132-07, , 2284-06 ####[facility] LABCLIA [id number] [place] [address] [place] LDL/HDL RATIO, NF 1.74 mg/dL Normal <2.54 [facility] Comment on above: Order Comment: Laura men Type: BLOOD SPECIMENOrdering Facility: [facility] Address: [address] [place] [address] Result Comment: Iam mclain:1. National Cholesterol Education Program ATP III Guideline At-A-Glance Quick Desk Reference: National Heart, Lung, and Blood Arnold. National Institutes of Health. 2001: NIH Publication No. 01-3305.2. An International Atherosclerosis Society position paper: global recommendations for the management of dyslipidemia: executive summary, Atherosclerosis. 2014: 232(2):410-413. Performed By: #### L IPNF, 2132-07, 31567-2, 2284-06 ####[facility] LABCLIA [id number] [place] [address] [place] NON HDL CHOL, NF 111 mg/dL Normal <130 [facility] Comment on above: Order Comment: Laura men Type: BLOOD SPECIMENOrdering Facility: [facility] Address: [address] [place] [address] Result Comment: <130 mg/dL, Optimal 130-159 mg/dL, Near optimal/above optimal 160-189 mg/dL, Borderline high 190-219 mg/dL, High>219 mg/dL, Very highSecondary prevention optimal non HDL Cholesterol levels are recommended to be <100 mg/dL Performed By: #### L IPNF, 2132-07, 97178-5, 2284-06 ####[facility] LABCLIA [id number] [place] [address] [place] T CHOL/HDL RATIO NF 3.22 mg/dL Normal <5.10 [facility] Comment on above: Order Comment: Rafaeli men Type: BLOOD SPECIMENOrdering Facility: [facility] Address: [address] [place] [address] Performed By: #### L IPNF, 2132-07, 50574-7, 8 ####[facility] LABCLIA [id number] [place] [address] [place] TRIGLYCERIDES, NF 118 mg/dL Normal <150 [facility] Comment on above: Order Comment: Speci men Type: BLOOD SPECIMENOrdering Facility: [facility] Address: [address] [place] [address] Result Comment: <150 mg/dL, Normal 150-199 mg/dL, Borderline high 200-499 mg/dL, High>499 mg/dL, Very high Performed By: #### L IPNF, 9, 51597-1, 2283-8 ####[facility] LABCLIA [id number] [place] [address] [place] VLDL CHOLESTEROL, NF 24 mg/dL Normal <30 [facility] Comment on above: Order Comment: Speci men Type: BLOOD SPECIMENOrdering Facility: [facility] Address: [address] [place] [address] Performed By: #### L IPNF, 2132-07, 13855-5, 2284-06 ####[facility] LABCLIA [id number] [place] [address] [place] MRI BRAIN WO IVCONon 024 MRI BRAIN WO IVCON Normal [facility] THERAPY NTon 10-20-2024 THERAPY NT Normal [facility] THERAPY NT Normal [facility] URINALYSIS, REFLEX MICROSCOP ICon 10-20-2024 Bacteria LM.HPF (Urine sed) [#/Area] Negative Normal Negative [facility] Comment on above: Order Comment: Speci men Type: URINE SPECIMENOrdering Facility: [facility] Address: [address] [place] [address] Performed By: #### L [id number] ####[facility] LABCLIA [id number] [place] [address] [place] Bilirubin Ql (U) Negative Normal Negative [facility] Comment on above: Order Comment: Speci men Type: URINE SPECIMENOrdering Facility: [facility] Address: [address] [place] [address] Performed By: #### L [id number] ####[facility] LABCLIA [id number] [place] [address] [place] Clarity (Unsp spec) Clear Normal Clear [facility] Comment on above: Order Comment: Speci men Type: URINE SPECIMENOrdering Facility: [facility] Address: [address] [place] [address] Performed By: #### L [id number] ####[facility] LABCLIA [id number] [place] [address] [place] Color (U) Yellow Normal Yellow [facility] Comment on above: Order Comment: Speci men Type: URINE SPECIMENOrdering Facility: [facility] Address: [address] [place] [address] Performed By: #### L [id number] ####[facility] LABIA [id number] [place] [address] [place] Epithelial cells LM.HPF (Urine sed) [#/Area] Few Normal [facility] Comment on above: Order Comment: Speci men Type: URINE SPECIMENOrdering Facility: [facility] Address: [address] [place] [address] Performed By: #### L [id number] ####[facility] LABCLIA [id number] [place] [address] [place] Glucose Test strip (U) [Mass/Vol] Negative Normal Negative [facility] Comment on above: Order Comment: Speci men Type: URINE SPECIMENOrdering Facility: [facility] Address: [address] [place] [address] Performed By: #### L [id number] ####[facility] LABIA [id number] [place] [address] [place] Hemoglobin Ql (U) Trace Abnormal Negative [facility] Comment on above: Order Comment: Speci men Type: URINE SPECIMENOrdering Facility: [facility] Address: [address] [place] [address] Performed By: #### L [id number] ####[facility] LABCLIA [id number] [place] [address] [place] Hyaline casts (Urine sed) [#/Area] 1-3 /LPF Abnormal 0 /LPF [facility] Comment on above: Order Comment: Speci men Type: URINE SPECIMENOrdering Facility: [facility] Address: [address] [place] [address] Performed By: #### L [id number] ####[facility] LABCLIA [id number] [place] [address] [place] Ketones Ql (U) Negative Normal Negative [facility] Comment on above: Order Comment: Speci men Type: URINE SPECIMENOrdering Facility: [facility] Address: [address] [place] [address] Performed By: #### L [id number] ####[facility] LABCLIA [id number] [place] [address] [place] Leukocyte esterase Test strip Ql (U) 2+ Abnormal Negative [facility] Comment on above: Order Comment: Speci men Type: URINE SPECIMENOrdering Facility: [facility] Address: [address] [place] [address] Performed By: #### L [id number] ####[facility] LABCLIA [id number] [place] [address] [place] Nitrite Ql (U) Negative Normal Negative [facility] Comment on above: Order Comment: Speci men Type: URINE SPECIMENOrdering Facility: [facility] Address: [address] [place] [address] Performed By: #### L [id number] ####[facility] LABCLIA [id number] [place] [address] [place] pH (U) 6.0 [pH] Normal <8.5 [facility] Comment on above: Order Comment: Speci men Type: URINE SPECIMENOrdering Facility: [facility] Address: [address] [place] [address] Performed By: #### L [id number] ####[facility] LABIA [id number] [place] [address] [place] Protein (U) [Mass/Vol] Trace Abnormal Negative Cl [facility] Comment on above: Order Comment: Speci men Type: URINE SPECIMENOrdering Facility: [facility] Address: [address] [place] [address] Performed By: #### L [id number] ####[facility] LABIA [id number] [place] [address] [place] RBC LM.HPF (Urine sed) [#/Area] 0-2 /HPF Normal 0-2 /HPF [facility] Comment on above: Order Comment: Speci men Type: URINE SPECIMENOrdering Facility: [facility] Address: [address] [place] [address] Performed By: #### L [id number] ####[facility] [id number] [place] [address] [place] Specific gravity (U) [Rel density] 1.017 Normal 1.005-1.030 [facility] Comment on above: Order Comment: Speci men Type: URINE SPECIMENOrdering Facility: [facility] Address: [address] [place] [address] Performed By: #### L [id number] ####[facility] LABIA [id number] [place] [address] [place] Urobilinogen Ql (U) 1.0 EU/dL Normal 0.2-1.0 EU/dL [facility] Comment on above: Order Comment: Speci men Type: URINE SPECIMENOrdering Facility: [facility] Address: [address] [place] [address] Performed By: #### L [id number] ####[facility] LABIA [id number] [place] [address] [place] WBC LM.HPF (Urine sed) [#/Area] 0-5 /HPF Normal 0-5 /HPF [facility] Comment on above: Order Comment: Speci men Type: URINE SPECIMENOrdering Facility: [facility] Address: [address] [place] [address] Performed By: #### L [id number] ####[facility] LABIA [id number] [address] [place] Vit B12 SerPl-mCncon 024 Cobalamin (Vitamin B12) [Mass/Vol] 1379 pg/mL High 232-1245 [facility] Comment on above: Order Comment: Speci men Type: BLOOD SPECIMENOrdering Facility: [facility] Address: [address] [place] [address] Performed By: #### L IPNF, 2132-9, 31558-6, 2284-8 ####[facility] LABIA [id number] [place] [address] [place] aPTT PPPon 10-20-2024 aPTT Coag (PPP) [Time] 27.9 s Normal 23.0-32.4 [facility] Comment on above: Order Comment: Speci men Type: BLOOD SPECIMENOrdering Facility: [facility] Address: [address] [place] [address] Performed By: #### 1 4979-9 ####[facility] LABIA [id number] [place] [id number] [place] ALLIED HEALTHon 10-19-2024 ALLIED HEALTH HNO ID: [id number] Author: JIE DURAN Tech Service: Radiology Author Type: Adjunct Physical Education Instructor Type: Allied Health Filed: 10/19/2024 10:02 Note [...] PATIENT PRESENTS WITH AN IMPLANTABLE OR ATTACHED CONSULTANT LUXURY AND AUTO. VICE PRESIDENT JAGUAR BRAND (EX ): No ALLERGIES: Reviewed and unchanged CONTRAST ALLERGY: [...] PERIPHERAL IV DATA: Inpatient - refer to [facility] documentation RADIOLOGY DEPARTMENT: CT; Exam(s) Completed: Brain , CTA Brain , and CTA Neck SIGNATURE: Sharon Murillo PATIENT NAME: Florecita Healy DATE: October 19, 2024 TIME: 10:02 AM Normal [facility] Basic metabolic 2000 panelon 10-19-2024 Anion gap [Moles/Vol] 12 mmol/L Normal - [facility] Comment on above: Order Comment: Speci men Type: BLOOD SPECIMENOrdering Facility: [facility] Address: [address] [place] [address] Performed By: #### [facility], 825[address]-5 ####[facility] [id number] [place] [address] [place] Calcium [Mass/Vol] 8.9 mg/dL Normal 8.5-10.2 [facility] Comment on above: Order Comment: Speci men Type: BLOOD SPECIMENOrdering Facility: [facility] Address: [address] [place] [address] Performed By: #### H STNT, 65552-5 ####[facility] LABORATORYCLIA [id number] [place] [address] [place] Chloride [Moles/Vol] 104 mmol/L Normal 98-107 [facility] Comment on above: Order Comment: Speci men Type: BLOOD SPECIMENOrdering Facility: [facility] Address: [address] [place] [address] Performed By: #### H STNT, 73318-6 ####[facility]ARWAL LABORATORYCLIA [id number] [place] [address] [place] CO2 [Moles/Vol] 24 mmol/L Normal 22-30 [facility] Comment on above: Order Comment: Speci men Type: BLOOD SPECIMENOrdering Facility: [facility] Address: [address] [place] [address] Performed By: #### H STNT, 73486-0 ####[facility]AL LABORATORYCLIA [id number] [address] [place] Creatinine [Mass/Vol] 0.91 mg/dL Normal 0.58-0.96 [facility] Comment on above: Order Comment: Speci men Type: BLOOD SPECIMENOrdering Facility: [facility] Address: [address] [place] [address] Performed By: #### H STNT, 56910-4 ####AGARWAL LABORATORYCLIA [id number] [address] Creatinine and Glomerular filtration rate.predicted panel (S/P/Bld) 63 mL/min/1.73m??? Normal >=60 [facility] Comment on above: Order Comment: Speci men Type: BLOOD SPECIMENOrdering Facility: [facility] Address: [address] [place] [address] Result Comment: Callie mated Glomerular Filtration Rate [...] actual GFR. Performed By: #### H STNT, 61524-4 ####[facility] LABORATORYCLIA [id number] [place] [address] [place] Glucose [Mass/Vol] 116 mg/dL High 74-99 [facility] Comment on above: Order Comment: Laura mejía Type: BLOOD SPECIMENOrdering Facility: [facility] Address: [address] [place] [address] Result Comment: The [place] [employer] (ADA) provides guidance for cutoff [...] Standards of Medical Care in Diabetes 2016, [place] [employer]. Diabetes Care. 2016.39(Suppl 1). Performed By: #### H STNT, 36656-8 ####[facility] LABORATORYCLIA [id number] [place] [address] [place] Potassium [Moles/Vol] 4.0 mmol/L Normal 3.7-5.1 [facility] Comment on above: Order Comment: Laura mejía Type: BLOOD SPECIMENOrdering Facility: [facility] Address: [address] [id number] Performed By: #### H STNT, 21426-0 ####AGARWAL LABORATORYCLIA [id number] [place] [address] [place] Sodium [Moles/Vol] 140 mmol/L Normal 136-144 [facility] Comment on above: Order Comment: Speci men Type: BLOOD SPECIMENOrdering Facility: [facility] Address: [address] [place] [address] Performed By: #### H STNT, 53905-3 ####[facility]WAL LABORATORYCLIA [id number] [address] Urea nitrogen [Mass/Vol] 12 mg/dL Normal 7-21 [facility] Comment on above: Order Comment: Speci men Type: BLOOD SPECIMENOrdering Facility: [facility] Address: [address] [place] [address] Performed By: #### H STNT, 37347-5 ####[facility]AL LABORATORYCLIA [id number] [address] [place] CBC panel Auto (Bld)on 10-19 Erythrocyte distribution width (RBC) [Ratio] 14.6 % Normal 11.5-15.0 [facility] Comment on above: Order Comment: Speci men Type: BLOOD SPECIMENOrdering Facility: [facility] Address: [address] [place] [address] Performed By: #### 5 8410-2 ####AG[facility]AL LABORATORYCLIA [id number] [address] Hematocrit (Bld) [Volume fraction] 38.8 % Normal 36.0-46.0 [facility] Comment on above: Order Comment: Speci men Type: BLOOD SPECIMENOrdering Facility: [facility] Address: [address] [place] [address] Performed By: #### 5 8410-2 ####AG[facility] LABORATORYCLIA [id number] [address] [place] Hemoglobin (Bld) [Mass/Vol] 12.4 g/dL Normal 11.5-15.5 [facility] Comment on above: Order Comment: Speci men Type: BLOOD SPECIMENOrdering Facility: [facility] Address: [address] [place] [address] Performed By: #### 5 8410-2 ####[facility] LABORATORYCLIA [id number] [address] MCH (RBC) [Entitic mass] 27.4 pg Normal 26.0-34.0 [facility] Comment on above: Order Comment: Speci men Type: BLOOD SPECIMENOrdering Facility: [facility] Address: [address] [place] [address] Performed By: #### 5 8410-2 ####AG[facility]WAL LABORATORYCLIA [id number] [address] MCHC (RBC) [Mass/Vol] 32.0 g/dL Normal 30.5-36.0 [facility] Comment on above: Order Comment: Speci men Type: BLOOD SPECIMENOrdering Facility: [facility] Address: [address] [place] [address] Performed By: #### 5 8410-2 ####AG[facility] LABORATORYCLIA [id number] [address] MCV (RBC) [Entitic vol] 85.8 fL Normal 80.0-100.0 [facility] Comment on above: Order Comment: Speci men Type: BLOOD SPECIMENOrdering Facility: [facility] Address: [address] [place] [address] Performed By: #### 5 8410-2 ####AG[facility] LABORATORYCLIA [id number] [address] Nucleated RBC (Bld) [#/Vol] 10*3/uL Normal <0.01 [facility] Comment on above: Order Comment: Speci men Type: BLOOD SPECIMENOrdering Facility: [facility] Address: [address] [place] [address] Performed By: #### 5 8410-2 ####[facility] LABORATORYCLIA [id number] [address] Platelet mean volume (Bld) [Entitic vol] 10.2 fL Normal 9.0-12.7 [facility] Comment on above: Order Comment: Speci men Type: BLOOD SPECIMENOrdering Facility: [facility] Address: [address] [place] [address] Performed By: #### 5 8410-2 ####AGARWAL LABORATORYCLIA [id number] [place] [address] [facility] [place] Platelets (Bld) [#/Vol] 164 10*3/uL Normal 150-400 [facility] Comment on above: Order Comment: Speci men Type: BLOOD SPECIMENOrdering Facility: [facility] Address: [address] [place] [address] Performed By: #### 5 8410-2 ####AG[facility]WAL LABORATORYCLIA [id number] [place] [address] [place] RBC (Bld) [#/Vol] 4.52 10*6/uL Normal 3.90-5.20 [facility] Comment on above: Order Comment: Speci men Type: BLOOD SPECIMENOrdering Facility: [facility] Address: [address] [place] [address] Performed By: #### 5 8410-2 ####[facility] LABORATORYCLIA [id number] [place] [address] [place] WBC (Bld) [#/Vol] 4.96 10*3/uL Normal 3.70-11.00 [facility] Comment on above: Order Comment: Speci men Type: BLOOD SPECIMENOrdering Facility: [facility] Address: [address] [place] [address] Performed By: #### 5 8410-2 ####AGARWAL LABORATORYCLIA [id number] [address] [facility] BRAIN ATTACK WO IVCONon 1 12-20-2023 CT BRAIN ATTACK WO IVCON * * *Final Report* * * DATE OF EXAM: Oct 19 2024 10:06AM [facility] 0502 - CT BRAIN ATTACK [...] PARIKH on 10/19/2024 10:08 AM . CR_1 Gas Furnace Installer: PRINCE Transcribe Date/Time: Oct 19 2024 10:06A Dictated by : EMILIANA HOLCOMB MD This examination was interpreted and the report reviewed and electronically signed by: EMILIANA HOLCOMB MD on Oct 19 2024 10:11AM EST [id number] CRITICAL!! Invalid Interpretation Code [facility] CT BRAIN WO IVCONon 10-19-[address] BRAIN WO IVCON * * *Final Report* * * DATE OF EXAM: Oct 19 2024 7:26PM [facility] 0504 - CT BRAIN WO [...] base and imaged soft tissues are unremarkable. Caustics Loader (topogram) images: No additional findings. IMPRESSION: No acute intracranial process. _ Gas Furnace Installer: PSCB Transcribe Date/Time: Oct 19 2024 8:41P Dictated by : ANKUR PATTERSON MD This examination was interpreted and the report reviewed and electronically signed by: ANKUR PATTERSON MD on Oct 19 2024 8:45PM EST [id number] [facility] CTA HEAD W IVCONon 4 CTA HEAD W IVCON * * *Final Report* * * DATE OF EXAM: Oct 19 2024 10:09AM [facility] 0022 - CTA HEAD W [...] (more content not included)... Invalid Interpretation Code [facility] CTA NECK W IVCONon 4 CTA NECK W IVCON * * *Final Report* * * DATE OF EXAM: Oct 19 2024 10:09AM [facility] 0024 - CTA NECK W [...] (more content not included)... Invalid Interpretation Code [facility] ECG COMPLETEon 10-19-2024 ECG COMPLETE Ventricular Rate : 6 8 BPM Atrial Rate : 68 BPM P-R Interval : 216 ms QRS Duration : 122 ms Q-T Interval : 482 ms QTC Calculation(Bazett) : 512 ms Calculated P Hext : 74 degrees Calculated R Hext : -33 degrees Calculated T Hext : 16 degrees SINUS RHYTHM WITH 1ST DEGREE A-V BLOCK LEFT AXIS DEVIATION RIGHT BUNDLE BRANCH BLOCK ABNORMAL ECG NO STEMI Confirmed by Mena PARIKH ERIKA ([id number]), editorial manager LINETTE CASTRO ([id number]) on 10/20/2024 3:28:49 PM NAME : FLORECITA HEALY PID : [id number] : 1940 Gender : Female Race : ORD : [id number] Procedure Date : Oct 19 2024 10:40:09 Edit Date : Oct 20 2024 15:28:50 Diagnosis: SINUS RHYTHM WITH 1ST DEGREE A-V BLOCK LEFT AXIS DEVIATION RIGHT BUNDLE BRANCH BLOCK ABNORMAL ECG NO STEMI Confirmed by Mena PARIKH ERIKA ([id number]), editorial manager LINETTE CASTRO ([id number]) on 10/20/2024 3:28:49 PM Test Reason : Other - Specify Location : 1 : ER 13 Overread By : Mena PARIKH ERIKA Edited By : LINETTE CASTRO Referred By : , Acquired by : danna kruse, [facility] ED NOTEon 10-19-2024 ED NOTE HNO ID: [id number] Author: NETTA SALCIDO RN Service: Nursing Author Type: Registered Nurse Type: ED Notes Filed: 10/19/2024 22:01 Note Text: Report given to HERNESTO Alanis and care transferred at this time. [facility] ED NOTE HNO ID: [id number] Author: NETTA SALCIDO RN Service: Nursing Author Type: Registered Nurse Type: ED Notes Filed: 10/19/2024 19:12 Note Text: Patient had one episode of emesis. Dr. Kaplan notified and bedside. [facility] ED NOTE HNO ID: [id number] Author: NETTA SALCIDO RN Service: Nursing Author Type: Registered Nurse Type: ED Notes Filed: 10/19/2024 19:10 Note Text: Patient c/o headache. Dr. Kaplan notified. [facility] ED NOTE HNO ID: [id number] Author: NETTA SALCIDO RN Service: Nursing Author Type: Registered Nurse Type: ED Notes Filed: 10/19/2024 19:36 Note Text: Patient and notified of bed assignment at [facility] and ETA of transport. Verbalized understanding. [facility] ED NOTE HNO ID: [id number] Author: NETTA SALCIDO RN Service: Nursing Author Type: Registered Nurse Type: ED Notes Filed: 10/19/2024 17:29 Note Text: Pr Dr. Eusebio arguelles for patient to eat. Patient provided with turkey sandwich and apple juice. [facility] ED NOTE HNO ID: [id number] Author: NETTA SALCIDO RN Service: Nursing Author Type: Registered Nurse Type: ED Notes Filed: 10/19/2024 11:07 Note Text: Dr. Parikh notified of patient's BP 212/88 [facility] ED NOTE HNO ID: [id number] Author: NETTA SALCIDO RN Service: Nursing Author Type: Registered Nurse Type: ED Notes Filed: 10/19/2024 10:50 Note Text: Dr. Bo notified of patient's BP [facility] ED NOTE HNO ID: [id number] Author: NETTA SALCIDO RN Service: Nursing Author Type: Registered Nurse Type: ED Notes Filed: 10/19/2024 10:38 Note Text: Report received from HERNESTO Mckinley and care assumed at this time. [facility] ED NOTE HNO ID: [id number] Author: INEZ MASON RN Service: Nursing Author Type: Registered Nurse Type: ED Notes Filed: 10/19/2024 10:45 Note Text: Report to HERNESTO Cornell at this time. [facility] ED NOTE HNO ID: [id number] Author: INEZ MASON RN Service: Nursing Author Type: Registered Nurse Type: ED Notes Filed: 10/19/2024 09:53 Note Text: Accu check 115. [facility] ED NOTE HNO ID: [id number] Author: COLIN PASCUAL RN Service: Nursing Author Type: Registered Nurse Type: ED Notes Filed: 10/19/2024 09:51 Note Text: DR KATI OHARA, CALLS STROKE ALERT. [facility] ED PROV NOTEon 10-19-2024 ED PROV NOTE HNO ID: [id number] Author: GARRET KAPLAN MD Service: ? Author [...] bed assignment at the neuro ICU at [facility] as of yet. I discussed patient's case with the ED-hospital, patient will be boarded in the intensive care unit at [facility] pending a neuro ICU bed at [facility]. Critical Care I spent a total of 31 minutes of critical care time in the evaluation and management of this patient. 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 ED PROV NOTE HNO ID: [id number] Author: RANDY PARIKH MD Service: ? Author [...] breast (HCC) Chronic obstructive pulmonary disease (COPD) ([facility]) Chronic pain 06/03/2012 sees pain management. Diarrhea 11/06/2022 Hyperlipidemia 06/03/2012 Hypertension 06/03/2012 Nausea AND vomiting 11/06/2022 Osteopenia Psoriasis Pulmonary nodule Dr. Dawn Sepsis ([facility]) 11/05/2022 Snoring PAST SURGICAL HISTORY Procedure [...] Mucous mem (more content not included)... Normal [facility] HIGH SENSITIVITY TROPONIN To n 10-19-2024 Troponin T.cardiac High sensitivity method [Mass/Vol] 17 ng/L High <12 [facility] Comment on above: Order Comment: Laura mejía Type: BLOOD SPECIMENOrdering Facility: [facility] Address: [address] [place] [address] Performed By: #### H STN, 47219-7 ####[facility] LABORATORYCLIA [id number] [place] [address] [place] PT panel Coag (PPP)on 2023 INR Coag (PPP) [Relative time] 0.9 {INR} Normal 0.9-1.3 [facility] Comment on above: Order Comment: Laura mejía Type: BLOOD SPECIMENOrdering Facility: [facility] Address: [address] [place] [address] Result Comment: Isabell min K Antagonist (VKA) Therapeutic Range: INR 2 to 3 (Target INR of 2.5) Note: For patients treated with VKA drugs, such as warfarin, the [place] [employer] 2012 Guideline recommends [...] Chest 2012, 141:7S-47S Deena RA, et al. [facility] 2017, 70: 252-289 Performed By: #### 1 4979-9, 17115-7 ####[facility] LABORATORYCLIA [id number] [place] [address] [place] PT Coag (PPP) [Time] 10.3 s Normal 9.7-13.0 [facility] Comment on above: Order Comment: Speci men Type: BLOOD SPECIMENOrdering Facility: [facility] Address: [address] [place] [address] Performed By: #### 1 4979-9, 88643-5 ####[facility] LABORATORYCLIA [id number] [address] [place] aPTT PPPon 10-19-2024 aPTT Coag (PPP) [Time] 28.8 s Normal 23.0-32.4 [facility] Comment on above: Order Comment: Speci men Type: BLOOD SPECIMENOrdering Facility: [facility] Address: [address] [place] [address] Performed By: #### 1 4979-9, 31345-2 ####[facility] LABORATORYCLIA [id number] [address] [place] CNCOon 10-14-2024 CNCO Letter Text Normal [facility] CNPNon 10-14-2024 CNPN Normal [facility] CNPTOUTREACHon 09-22-2024 CNPTOUTREACH Normal [facility] CNPNon 09-18-2024 CNPN Normal [facility] CBC W Auto Differential pane l (Bld)on 09-17-2024 Basophils (Bld) [#/Vol] 0.05 10*3/uL [facility] Basophils/100 WBC (Bld) 0.8 % [facility] Differential cell count method Nom (Bld) Auto [facility] Eosinophils (Bld) [#/Vol] 0.05 10*3/uL [facility] Eosinophils/100 WBC (Bld) 0.8 % [facility] Erythrocyte distribution width (RBC) [Ratio] 14.5 % 11.5 - 15.0 % [facility] Hematocrit (Bld) [Volume fraction] 40.0 % 36.0 - 46.0 % [facility] Hemoglobin (Bld) [Mass/Vol] 12.6 g/dL 11.5 - 15.5 g/dL [facility] Immature granulocytes (Bld) [#/Vol] 0.03 10*3/uL [facility] Immature granulocytes/100 WBC (Bld) 0.5 % [facility] Lymphocytes (Bld) [#/Vol] 1.74 10*3/uL [facility] Lymphocytes/100 WBC (Bld) 29.0 % [facility] MCH (RBC) [Entitic mass] 28.1 pg 26.0 - 34.0 pg [facility] MCHC (RBC) [Mass/Vol] 31.5 g/dL 30.5 - 36.0 g/dL [facility] MCV (RBC) [Entitic vol] 89.1 fL 80.0 - 100.0 fL [facility] Monocytes (Bld) [#/Vol] 0.70 10*3/uL [facility] Monocytes/100 WBC (Bld) 11.7 % [facility] Neutrophils (Bld) [#/Vol] 3.43 10*3/uL [facility] Neutrophils/100 WBC (Bld) 57.2 % [facility] Nucleated RBC (Bld) [#/Vol] [facility] Nucleated RBC/100 WBC (Bld) [Ratio] 0.0 % /100 WBC [facility] Platelet mean volume (Bld) [Entitic vol] 11.1 fL 9.0 - 12.7 fL [facility] Platelets (Bld) [#/Vol] 218 10*3/uL [facility] RBC (Bld) [#/Vol] 4.49 10*6/uL 3.90 - 5.2 0 m/uL [facility] WBC (Bld) [#/Vol] 6.00 10*3/uL [facility] Basophils (Bld) [#/Vol] 0.05 10*3/uL Normal <0.11 [facility] Comment on above: Order Comment: Speci men Type: BLOOD SPECIMENOrdering Facility: [facility] Address: [address] [place] [address] Performed By: #### 5 7021-8 ####[facility] LABCLIA [id number] [place] [address] [place] Basophils/100 WBC (Bld) 0.8 % Normal [facility] Comment on above: Order Comment: Speci men Type: BLOOD SPECIMENOrdering Facility: [facility] Address: [address] [place] [address] Performed By: #### 5 7021-8 ####[facility] LABCLIA [id number] [place] [address] [place] Differential cell count method Nom (Bld) Auto Normal [facility] Comment on above: Order Comment: Speci men Type: BLOOD SPECIMENOrdering Facility: [facility] Address: [address] [place] [address] Performed By: #### 5 7021-8 ####[facility] LABCLIA [id number] [place] [address] [place] Eosinophils (Bld) [#/Vol] 0.05 10*3/uL Normal <0.46 [facility] Comment on above: Order Comment: Speci men Type: BLOOD SPECIMENOrdering Facility: [facility] Address: [address] [place] [address] Performed By: #### 5 7021-8 ####[facility] LABCLIA [id number] [place] [address] [place] Eosinophils/100 WBC (Bld) 0.8 % Normal [facility] Comment on above: Order Comment: Speci men Type: BLOOD SPECIMENOrdering Facility: [facility] Address: [address] [place] [address] Performed By: #### 5 7021-8 ####[facility] LABCLIA [id number] [place] [address] [place] Erythrocyte distribution width (RBC) [Ratio] 14.5 % Normal 11.5-15.0 [facility] Comment on above: Order Comment: Speci men Type: BLOOD SPECIMENOrdering Facility: [facility] Address: [address] [place] [address] Performed By: #### 5 7021-8 ####[facility] LABIA [id number] [place] [address] [place] Hematocrit (Bld) [Volume fraction] 40.0 % Normal 36.0-46.0 [facility] Comment on above: Order Comment: Speci men Type: BLOOD SPECIMENOrdering Facility: [facility] Address: [address] [place] [address] Performed By: #### 5 7021-8 ####[facility] LABIA [id number] [place] [address] [place] Hemoglobin (Bld) [Mass/Vol] 12.6 g/dL Normal 11.5-15.5 [facility] Comment on above: Order Comment: Speci men Type: BLOOD SPECIMENOrdering Facility: [facility] Address: [address] [place] [address] Performed By: #### 5 7021-8 ####[facility] LABIA [id number] [place] [address] [place] Immature granulocytes (Bld) [#/Vol] 0.03 10*3/uL Normal <0.10 [facility] Comment on above: Order Comment: Speci men Type: BLOOD SPECIMENOrdering Facility: [facility] Address: [address] [place] [address] Performed By: #### 5 7021-8 ####[facility] LABIA [id number] [place] [address] [place] Immature granulocytes/100 WBC (Bld) 0.5 % Normal [facility] Comment on above: Order Comment: Speci men Type: BLOOD SPECIMENOrdering Facility: [facility] Address: [address] [place] [address] Performed By: #### 5 7021-8 ####[facility] LABCLIA [id number] [place] [address] [place] Lymphocytes (Bld) [#/Vol] 1.74 10*3/uL Normal 1.00-4.00 [facility] Comment on above: Order Comment: Speci men Type: BLOOD SPECIMENOrdering Facility: [facility] Address: [address] [place] [address] Performed By: #### 5 7021-8 ####[facility] LABCLIA [id number] [place] [address] [place] Lymphocytes/100 WBC (Bld) 29.0 % Normal [facility] Comment on above: Order Comment: Speci men Type: BLOOD SPECIMENOrdering Facility: [facility] Address: [address] [place] [address] Performed By: #### 5 7021-8 ####[facility] LABIA [id number] [place] [address] [place] MCH (RBC) [Entitic mass] 28.1 pg Normal 26.0-34.0 [facility] Comment on above: Order Comment: Speci men Type: BLOOD SPECIMENOrdering Facility: [facility] Address: [address] [place] [address] Performed By: #### 5 7021-8 ####[facility] LABCLIA [id number] [place] [address] [place] MCHC (RBC) [Mass/Vol] 31.5 g/dL Normal 30.5-36.0 [facility] Comment on above: Order Comment: Speci men Type: BLOOD SPECIMENOrdering Facility: [facility] Address: [address] [place] [address] Performed By: #### 5 7021-8 ####[facility] LABCLIA [id number] [place] [address] [place] MCV (RBC) [Entitic vol] 89.1 fL Normal 80.0-100.0 [facility] Comment on above: Order Comment: Speci men Type: BLOOD SPECIMENOrdering Facility: [facility] Address: [address] [place] [address] Performed By: #### 5 7021-8 ####[facility] LABCLIA [id number] [place] [address] [place] Monocytes (Bld) [#/Vol] 0.70 10*3/uL Normal <0.87 [facility] Comment on above: Order Comment: Speci men Type: BLOOD SPECIMENOrdering Facility: [facility] Address: [address] [place] [address] Performed By: #### 5 7021-8 ####[facility] LABCLIA [id number] [place] [address] [place] Monocytes/100 WBC (Bld) 11.7 % Normal [facility] Comment on above: Order Comment: Speci men Type: BLOOD SPECIMENOrdering Facility: [facility] Address: [address] [place] [address] Performed By: #### 5 7021-8 ####[facility] LABCLIA [id number] [place] [address] [place] Neutrophils (Bld) [#/Vol] 3.43 10*3/uL Normal 1.45-7.50 [facility] Comment on above: Order Comment: Speci men Type: BLOOD SPECIMENOrdering Facility: [facility] Address: [address] [place] [address] Performed By: #### 5 7021-8 ####[facility] LABCLIA [id number] [place] [address] [place] Neutrophils/100 WBC (Bld) 57.2 % Normal [facility] Comment on above: Order Comment: Speci men Type: BLOOD SPECIMENOrdering Facility: [facility] Address: [address] [place] [address] Performed By: #### 5 7021-8 ####[facility] LABCLIA [id number] [place] [address] [place] Nucleated RBC (Bld) [#/Vol] 10*3/uL Normal <0.01 [facility] Comment on above: Order Comment: Speci men Type: BLOOD SPECIMENOrdering Facility: [facility] Address: [address] [place] [address] Performed By: #### 5 7021-8 ####[facility] LABIA [id number] [place] [address] [place] Nucleated RBC/100 WBC (Bld) [Ratio] 0.0 /100 WBC Normal [facility] Comment on above: Order Comment: Speci men Type: BLOOD SPECIMENOrdering Facility: [facility] Address: [address] [place] [address] Performed By: #### 5 7021-8 ####[facility] LABIA [id number] [place] [address] [place] Platelet mean volume (Bld) [Entitic vol] 11.1 fL Normal 9.0-12.7 [facility] Comment on above: Order Comment: Speci men Type: BLOOD SPECIMENOrdering Facility: [facility] Address: [address] [place] [address] Performed By: #### 5 7021-8 ####[facility] LABIA [id number] [place] [address] [place] Platelets (Bld) [#/Vol] 218 10*3/uL Normal 150-400 [facility] Comment on above: Order Comment: Speci men Type: BLOOD SPECIMENOrdering Facility: [facility] Address: [address] [place] [address] Performed By: #### 5 7021-8 ####[facility] LABCLIA [id number] [place] [address] [place] RBC (Bld) [#/Vol] 4.49 10*6/uL Normal 3.90-5.20 [facility] Comment on above: Order Comment: Speci men Type: BLOOD SPECIMENOrdering Facility: [facility] Address: [address] [place] [address] Performed By: #### 5 7021-8 ####[facility] LABCLIA [id number] [address] [place] WBC (Bld) [#/Vol] 6.00 10*3/uL Normal 3.70-11.00 [facility] Comment on above: Order Comment: Speci men Type: BLOOD SPECIMENOrdering Facility: [facility] Address: [address] [place] [address] Performed By: #### 5 7021-8 ####[facility] LABCLIA [id number] [place] [address] [place] CNOVon 09-17-2024 CNOV Normal [facility] Comprehensive metabolic 2000 panelon 09-17-2024 Albumin [Mass/Vol] 4.1 g/dL 3.9 - 4.9 g/dL [facility] ALP [Catalytic activity/Vol] 96 U/L 34 - 123 U/L [facility] ALT [Catalytic activity/Vol] 11 U/L 7 - 38 U/L [facility] Anion gap [Moles/Vol] 14 mmol/L 8 - 15 mmol/L [facility] AST [Catalytic activity/Vol] 18 U/L 13 - 35 U/L [facility] Bilirubin [Mass/Vol] 0.6 mg/dL 0.2 - 1 .3 mg/dL [facility] Calcium [Mass/Vol] 9.0 mg/dL 8.5 - 10. 2 mg/dL [facility] Chloride [Moles/Vol] 105 mmol/L 98 - 10 7 mmol/L [facility] CO2 [Moles/Vol] 22 mmol/L 22 - 30 mmol/L [facility] Creatinine [Mass/Vol] 0.95 mg/dL 0.58 - 0.96 mg/dL [facility] GFR/1.73 sq M.predicted among non-blacks MDRD (S/P/Bld) [Vol rate/Area] 60 mL/min/{1.73_m2} - PINF [facility] Comment on above: Estimated Glomerular Filtration Rate [...] [Mass/Vol] 99 mg/dL 74 - 99 mg/dL [facility] Comment on above: The [place] Diab[employer] s Association (ADA) provides guidance for [...] Standards of Medical Care in Diabetes 2016, [place] [employer]. Diabetes Care. 2016.39(Suppl 1). Interpretation and review of laboratory results Normal [facility] Potassium [Moles/Vol] 4.0 mmol/L 3.7 - 5.1 mmol/L [facility] Protein [Mass/Vol] 7.1 g/dL 6.3 - 8.0 g/dL [facility] Sodium [Moles/Vol] 141 mmol/L 136 - 144 mmol/L [facility] Urea nitrogen [Mass/Vol] 17 mg/dL 7 - 21 mg/dL [facility] Albumin [Mass/Vol] 4.1 g/dL Normal 3.9-4.9 [facility] Comment on above: Order Comment: Speci men Type: BLOOD SPECIMENOrdering Facility: [facility] Address: [address] [place] [address] [place] [address] Performed By: #### 3 016-3, 72580-0 ####[facility] LABCLIA [id number] [place] [address] [place] ALP [Catalytic activity/Vol] 96 U/L Normal 34-123 [facility] Comment on above: Order Comment: Speci men Type: BLOOD SPECIMENOrdering Facility: [facility] Address: [address] [place] [address] Performed By: #### 3 016-3, 78542-3 ####[facility] LABCLIA [id number] [place] [address] [place] ALT [Catalytic activity/Vol] 11 U/L Normal 7-38 [facility] Comment on above: Order Comment: Speci men Type: BLOOD SPECIMENOrdering Facility: [facility] Address: [address] [place] [address] Performed By: #### 3 016-3, 50253-9 ####[facility] LABCLIA [id number] [place] [address] [place] Anion gap [Moles/Vol] 14 mmol/L Normal 8-15 [facility] Comment on above: Order Comment: Speci men Type: BLOOD SPECIMENOrdering Facility: [facility] Address: [address] [place] [address] Performed By: #### 3 016-3, ####[facility] LABCLIA [id number] [place] [address] [place] AST [Catalytic activity/Vol] 18 U/L Normal 13-35 [facility] Comment on above: Order Comment: Speci men Type: BLOOD SPECIMENOrdering Facility: [facility] Address: [address] [place] [address] Performed By: #### 3 016-3, 40466-6 ####[facility] LABCLIA [id number] [place] [address] [place] Bilirubin [Mass/Vol] 0.6 mg/dL Normal 0.2-1.3 [facility] Comment on above: Order Comment: Speci men Type: BLOOD SPECIMENOrdering Facility: [facility] Address: [address] [place] [address] Performed By: #### 3 016-3, ####[facility] LABCLIA [id number] [address] [address] [place] Calcium [Mass/Vol] 9.0 mg/dL Normal 8.5-10.2 [facility] Comment on above: Order Comment: Speci men Type: BLOOD SPECIMENOrdering Facility: [facility] Address: [address] [place] [address] Performed By: #### 3 016-3, ####[facility] LABCLIA [id number] [place] [address] [place] Chloride [Moles/Vol] 105 mmol/L Normal 98-107 [facility] Comment on above: Order Comment: Speci men Type: BLOOD SPECIMENOrdering Facility: [facility] Address: [address] [place] [address] Performed By: #### 3 016-3, ####[facility] LABCLIA [id number] [place] [address] [place] CO2 [Moles/Vol] 22 mmol/L Normal 22-30 [facility] Comment on above: Order Comment: Speci men Type: BLOOD SPECIMENOrdering Facility: [facility] Address: [address] [place] [address] Performed By: #### 3 016-3, 88195-1 ####[facility] LABCLIA [id number] [place] [address] [place] Creatinine [Mass/Vol] 0.95 mg/dL Normal 0.58-0.96 [facility] Comment on above: Order Comment: Speci men Type: BLOOD SPECIMENOrdering Facility: [facility] Address: [address] [place] [address] Performed By: #### 3 016-3, 80573-1 ####[facility] LABCLIA [id number] [place] [address] [place] Creatinine and Glomerular filtration rate.predicted panel (S/P/Bld) 60 mL/min/1.73m??? Normal >=60 [facility] Comment on above: Order Comment: Laura mejía Type: BLOOD SPECIMENOrdering Facility: [facility] Address: [address] [place] [address] Result Comment: Callie mated Glomerular Filtration Rate [...] actual GFR. Performed By: #### 3 016-3, 04763-3 ####[facility] LABCLIA [id number] [place] [address] [place] Glucose [Mass/Vol] 99 mg/dL Normal 74-99 [facility] Comment on above: Order Comment: Laura mejía Type: BLOOD SPECIMENOrdering Facility: [facility] Address: [address] [place] [address] Result Comment: The [place] Diabetes Association (ADA) provides guidance for cutoff [...] Standards of Medical Care in Diabetes 2016, [place] [employer]. Diabetes Care. 2016.39(Suppl 1). Performed By: #### 3 016-3, 07518-9 ####[facility] LABCLIA [id number] [place] [address] [place] Potassium [Moles/Vol] 4.0 mmol/L Normal 3.7-5.1 [facility] Comment on above: Order Comment: Speci men Type: BLOOD SPECIMENOrdering Facility: [facility] Address: [address] [place] [address] Performed By: #### 3 016-3, 79532-9 ####[facility] LABCLIA [id number] [place] [address] [place] Protein [Mass/Vol] 7.1 g/dL Normal 6.3-8.0 [facility] Comment on above: Order Comment: Speci men Type: BLOOD SPECIMENOrdering Facility: [facility] Address: [address] [place] [address] Performed By: #### 3 016-3, 96011-9 ####[facility] LABCLIA [id number] [place] [address] [place] Sodium [Moles/Vol] 141 mmol/L Normal 136-144 [facility] Comment on above: Order Comment: Speci men Type: BLOOD SPECIMENOrdering Facility: [facility] Address: [address] [place] [address] Performed By: #### 3 016-3, 27223-0 ####[facility] LABCLIA [id number] [place] [address] [place] Urea nitrogen [Mass/Vol] 17 mg/dL Normal 7-21 [facility] Comment on above: Order Comment: Speci men Type: BLOOD SPECIMENOrdering Facility: [facility] Address: [address] [place] [address] Performed By: #### 3 016-3, 09277-4 ####[facility] LABCLIA [id number] [place] [id number] [place] THYROID STIMULATING HORMONEo n 11-06-2024 TSH Qn 3.850 m[IU]/L [facility] TSH Qnon 09-17-2024 Interpretation and review of laboratory results Normal [facility] TSH SerPl-aCncon 09-17-2024 TSH Qn 3.850 m[IU]/L Normal 0.270-4.200 [facility] Comment on above: Order Comment: Speci men Type: BLOOD SPECIMENOrdering Facility: [facility] Address: [address] [place] [address] Performed By: #### 3 016-3, 34391-4 ####[facility] LABCLIA [id number] [place] [address] [place] CNPTOUTREACHon 09-08-2024 CNPTOUTREACH Normal [facility] CNPTOUTREACHon 09-05-2024 CNPTOUTREACH Normal [facility] CNOVon 08-12-2024 CNOV Normal [facility] CNPTOUTREACHon 08-08-2024 CNPTOUTREACH Normal [facility] CNPTOUTREACHon 07-28-2024 CNPTOUTREACH Normal [facility] CNPTOUTREACHon 07-25-2024 CNPTOUTREACH Normal [facility] CNOVon 07-09-2024 CNOV Normal [facility] CNPTOUTREACHon 07-04-2024 CNPTOUTREACH Normal [facility] CNPTOUTREACHon 07-03-2024 CNPTOUTREACH Normal [facility] CNOVon 07-01-2024 CNOV Normal [facility] CNPTOUTREACHon 06-21-2024 CNPTOUTREACH Normal [facility] CNPTOUTREACHon 06-20-2024 CNPTOUTREACH Normal [facility] CBC W Auto Differential pane l (Bld)on 03-19-2024 Basophils (Bld) [#/Vol] 0.03 10*3/uL NINF [facility] Basophils/100 WBC (Bld) 0.4 % [facility] Differential cell count method Nom (Bld) Auto [facility] Eosinophils (Bld) [#/Vol] 0.05 10*3/uL [facility] Eosinophils/100 WBC (Bld) 0.7 % [facility] Erythrocyte distribution width (RBC) [Ratio] 14.7 % 11.5 - 15.0 % [facility] Hematocrit (Bld) [Volume fraction] 38.1 % 36.0 - 46.0 % [facility] Hemoglobin (Bld) [Mass/Vol] 12.6 g/dL 11.5 - 15.5 g/dL [facility] Immature granulocytes (Bld) [#/Vol] 0.04 10*3/uL [facility] Immature granulocytes/100 WBC (Bld) 0.6 % [facility] Lymphocytes (Bld) [#/Vol] 1.57 10*3/uL [facility] Lymphocytes/100 WBC (Bld) 22.5 % [facility] MCH (RBC) [Entitic mass] 30.1 pg 26.0 - 34.0 pg [facility] MCHC (RBC) [Mass/Vol] 33.1 g/dL 30.5 - 36.0 g/dL [facility] MCV (RBC) [Entitic vol] 91.1 fL 80.0 - 100.0 fL [facility] Monocytes (Bld) [#/Vol] 0.74 10*3/uL [facility] Monocytes/100 WBC (Bld) 10.6 % [facility] Neutrophils (Bld) [#/Vol] 4.56 10*3/uL [facility] Neutrophils/100 WBC (Bld) 65.2 % [facility] Nucleated RBC (Bld) [#/Vol] [facility] Nucleated RBC/100 WBC (Bld) [Ratio] 0.0 % /100 WBC [facility] Platelet mean volume (Bld) [Entitic vol] 11.2 fL 9.0 - 12.7 fL [facility] Platelets (Bld) [#/Vol] 197 10*3/uL [facility] RBC (Bld) [#/Vol] 4.18 10*6/uL 3.90 - 5.2 0 m/uL [facility] WBC (Bld) [#/Vol] 6.99 10*3/uL [facility] US Thyroid glandon 4 IMPRESSION: Heterogeneous thyroid parenchyma. No discrete nodule is visualized. Gas Furnace Installer: PSCB Transcribe Date/Time: Dec 11 2023 4:02P Dictated by : NATALIA DE DIOS MD This examination was interpreted and the report reviewed and electronically signed by: NATALIA DE DIOS MD on Dec 11 2023 4:04PM [facility] DIVISION OF RADIOLOGY * * *Final Report* * * DATE OF EXAM: Dec 10 2023 1:26PM [facility] 1048 - US THYROID/PARATHYROID / PROCEDURE REASON: [...] below: Nodules: None DIVISION OF RADIOLOGY Provider, [facility] - 12/11/2023 * * *Final Report* * * DATE OF EXAM: Dec 10 2023 1:26PM [facility] 1048 - US THYROID/PARATHYROID / PROCEDURE REASON: [...] thyroid parenchyma. No discrete nodule is visualized. Gas Furnace Installer: PSC[employer] Transcribe Date/Time: Dec 11 2023 4:02P Dictated by : NATALIA DE DIOS MD This examination was interpreted and the report reviewed and electronically signed by: NATALIA DE DIOS MD on Dec 11 2023 4:04PM [facility] US Thyroid glandOrdered By: Ccf Provider on 12-11-2023 [facility] US Thyroid glandon Radiology Study observation (narrative) [facility] Absolute lymphocyte countOrd ered By: Hector Kerns on 11-13-2023 Lymphocytes Auto (Unsp spec) [#/Vol] 1.24 10*3/uL 0.83-4.51 [facility] Basophil percentageOrdered B y: Hector Kerns on 11-13-2023 Basophils/100 WBC (Bld) 0.6 % 0-1 [facility] Chloride [Moles/Vol] 107 mmol/L 98-107 [facility] Eosinophils/100 WBC (Bld) 0.4 % 0-5 [facility] Glucose [Mass/Vol] 166 mg/dL 74-106 [facility] Comment on above: Fasting Glucose resu lt greater than or equal to 126 mg/dL suggests DIABETES MELLITUS per A.D.A. criteria. Neutrophils (Bld) [#/Vol] 5.1 10*3/uL 2.0-7.7 [facility] Neutrophils/100 WBC (Bld) 71.2 % 47-70 [facility] Potassium [Moles/Vol] 3.3 mmol/L 3.5-5.1 [facility] Sodium [Moles/Vol] 137 mmol/L 136-145 [facility] WBC (Bld) [#/Vol] 7.2 10*3/uL 4.4-11.0 [facility] Blood erythrocytes count (nu mber/volume)Ordered By: Hector Kerns on 11-13-2023 RBC (Bld) [#/Vol] 4.18 10*6/uL 4.2-5.4 [facility] Blood hemoglobin measurement (mass/volume)Ordered By: Hector Kerns on 11-13-2023 Hemoglobin (Bld) [Mass/Vol] 12.7 g/dL 12.0-15.0 [facility] Blood lymphocytes/100 leukoc ytesOrdered By: Hector Kerns on 11-13-2023 Lymphocytes/100 WBC (Bld) 17.2 % 19-41 [facility] Blood monocytes/100 leukocyt esOrdered By: Hector Kerns on 11-13-2023 Monocytes/100 WBC (Bld) 9.8 % 0-10 [facility] Blood platelet mean volumeOr dered By: Hector Kerns on 11-13-2023 Platelet mean volume (Bld) [Entitic vol] 11.3 fL 6.2-12.0 [facility] Determination of erythrocyte mean corpuscular volume (MCV)Ordered By: Hector Kerns on 11-13-2023 MCV (RBC) [Entitic vol] 85.9 fL 81-99 [facility] Hematocrit Auto (Bld) [Volum e fraction]Ordered By: Hector Kerns on 11-13-2023 Hematocrit (Bld) [Volume fraction] 35.9 % 37-47 [facility] INR in Blood by Coagulation assayOrdered By: Hector Kerns on 11-13-2023 INR Coag (Bld) [Relative time] 1.0 {INR} [facility] Laboratory - Chemistry and C hemistry - challengeOrdered By: Hector Kerns on 11-13-2023 CO2 [Moles/Vol] 26.0 mmol/L 21.0-32.0 [facility] Urea nitrogen/Creatinine [Mass ratio] 16.1 mg/mg 10-20 [facility] Laboratory - CoagulationOrde red By: Hector Kerns on 11-13-2023 aPTT Coag (Bld) [Time] 33.5 s 24.1-36.2 [facility] PT Coag (PPP) [Time] 13.1 s 11.7-14.9 [facility] Laboratory - Hematology and Cell countsOrdered By: Hector Kerns on 11-13-2023 Erythrocyte distribution width (RBC) [Entitic vol] 42.5 fL 35.1-43.9 [facility] Erythrocyte distribution width (RBC) [Ratio] 14.6 % 11.6-14.6 [facility] Immature granulocytes/100 WBC (Bld) 0.800 % 0.0-0.9 [facility] Comment on above: IG% - Immature Granu locytes (promyelocytes, myelocytes and metamyelocytes) > 1% indicates that a LEFT SHIFT is Present. MCH (RBC) [Entitic mass] 30.4 pg 27.0-32.0 [facility] Nucleated RBC/100 WBC (Bld) [Ratio] 0 % 0-5 [facility] MCHC Auto (RBC) [Mass/Vol]Or dered By: Hector Kerns on 11-13-2023 MCHC (RBC) [Mass/Vol] 35.4 g/dL 32-36 [facility] No Panel InformationOrdered By: Hector Kerns on 11-13-2023 D-Dimer Quantitative (PE/DVT) 0.67 FEU/ug/m 0.27-0.49 [facility] Comment on above: D-Dimer ELEVATED (>0 .49): Additional studies and clinicalassessments are indicated to conclude diagnosis of:Deep Vein Thrombosis (DVT) or Pulmonary Embolism (PE)CRITICAL VALUE VERIFIED. CALLED TO [id number] Melissa Castellanos.RESULTS READ BACK BY SAME . Estimated GFR (MDRD) Amer 74 mL/min >60 [facility] Comment on above: GFR Calc Estimated GFR (MDRD) Non-Af Amer 62 mL/min >60 [facility] Comment on above: Non- GFR Calc Platelets bldOrdered By: Narciso Kerns on 11-13-2023 Platelets (Bld) [#/Vol] 227 10*3/uL 150-450 [facility] Serum or plasma calcium cher urement (mass/volume)Ordered By: Hector Kerns on 11-13-2023 Calcium [Mass/Vol] 9.4 mg/dL 8.5-10.1 [facility] Serum or plasma creatinine m easurement (mass/volume)Ordered By: Hector Kerns on 11-13-2023 Creatinine [Mass/Vol] 0.93 mg/dL 0.55-1.02 [facility] Comment on above: The validity of the calculated GFR & GFRAA in patients over 70 years has not been determined. Clinical correlation is essential. Serum or plasma urea nitroge n measurement (mass/volume)Ordered By: Hector Kerns on 11-13-2023 Urea nitrogen [Mass/Vol] 15 mg/dL 7-18 [facility] Thin prep Papanicolaou smear with manual screeningOrdered By: Hector Kerns on 11-13-2023 Thin prep Papanicolaou smear with manual screening 4 5-15 [facility] CNDSon 11-08-2023 CNDS HNO ID: [id number] Author: Juan Pagan MD Service: Hospital Medicine [...] DURING HOSPITALIZATION: Treatment Team: Primary Service: 3, [facility] Consulting: Rc Rodriguez MD Orders Placed This [...] Center 11/15/2023 9:20 AM Aneta Brown PA-C [facility] 01/28/2024 10:00 AM Rosie Syed, MAINTENANCE DIRECTOR.CALENDER WORKER [facility] 05/05/2024 10:10 AM SCREEN MAMMO [facility] WSTR RDXWS [facility] 05/07/2024 10:00 AM Nevin Fajardo, MAINTENANCE DIRECTOR.KAITLYN HEMAWS [place] ALLERGIES Allergen Reactions Animal Dander Intolerance Darvocet A500 [Prop* Mental Status Change Dust Other: See Comments Grass Pollen Other: See Comments Mold Other: See Comments Soma [Carisoprodol] Swelling, Itching Trees Other: See Comments DISCHARGE MEDICATION: Medication List START taking these medications Blood Pressure Test Kit-Medium Kit Use as directed for blood pressure monitoring carvedilol 6.25 mg tabl (more content not included)... Normal [facility] CONSULT PROGon 11-08-2023 CONSULT PROG HNO ID: [id number] Author: Rc Rodriguez MD Service: Infectious Disease [...] not final until Authenticated by responsible provider. [facility] NURSING PROGon 11-08-2023 NURSING PROG HNO ID: [id number] Author: Christiane Gilbert RN Service: ? Author Type: Registered Nurse Type: Nursing Progress Note Filed: 11/08/2023 3:40 PM Note Text: Educated patient on discharge and Hydralazine. She is going to clam picker her prescriptions and one of them is a new BP machine so she can check her BP at home. If SBP >140 she is to take her Hydralazine. Patient understood why she was kept for monitoring her BP and will continue to monitor at home as instructed per discharge papers that was read to her. [facility] ALLIED HEALTHon 11-07-2023 ALLIED HEALTH HNO ID: [id number] Author: Angie Jauregui RN Service: Infection Prevention [...] 07, 2023 TIME: 11:43 AM PAGER/CONTACT #: [phone] Infection Prevention after hours/weekend pager: Contact Nursing Transaction Advisory Services Manager [facility] CBC W Auto Differential pane l (Bld)on 11-07-2023 Basophils (Bld) [#/Vol] 10*3/uL Normal <0.11 [facility] Comment on above: Order Comment: Speci men Type: BLOOD SPECIMENOrdering Facility: [facility] Address: [address] [place] [address] Performed By: #### 5 7021-8 ####[facility]ORATORYCLIA [id number] [place] [address] [place] Basophils/100 WBC (Bld) 0.5 % Normal [facility] Comment on above: Order Comment: Speci men Type: BLOOD SPECIMENOrdering Facility: [facility] Address: [address] [place] [address] Performed By: #### 5 7021-8 ####[facility] LABORATORYCLIA [id number] [place] [address] [place] Differential cell count method Nom (Bld) Auto Normal [facility] Comment on above: Order Comment: Speci men Type: BLOOD SPECIMENOrdering Facility: [facility] Address: [address] [place] [address] Performed By: #### 5 7021-8 ####[facility] LABORATORYCLIA [id number] [place] [address] [place] Eosinophils (Bld) [#/Vol] 0.03 10*3/uL Normal <0.46 [facility] Comment on above: Order Comment: Speci men Type: BLOOD SPECIMENOrdering Facility: [facility] Address: [address] [place] [address] Performed By: #### 5 7021-8 ####[facility] LABORATORYCLIA [id number] [place] [address] [place] Eosinophils/100 WBC (Bld) 1.4 % Normal [facility] Comment on above: Order Comment: Speci men Type: BLOOD SPECIMENOrdering Facility: [facility] Address: [address] [place] [address] Performed By: #### 5 7021-8 ####[facility] LABORATORYCLIA [id number] [place] [address] [place] Erythrocyte distribution width (RBC) [Ratio] 14.4 % Normal 11.5-15.0 [facility] Comment on above: Order Comment: Speci men Type: BLOOD SPECIMENOrdering Facility: [facility] Address: [address] [place] [address] Performed By: #### 5 7021-8 ####[facility] LABORATORYCLIA [id number] [place] [address] [place] Hematocrit (Bld) [Volume fraction] 35.3 % Low 36.0-46.0 [facility] Comment on above: Order Comment: Speci men Type: BLOOD SPECIMENOrdering Facility: [facility] Address: [address] [place] [address] Performed By: #### 5 7021-8 ####[facility] LABORATORYCLIA [id number] [place] [address] [place] Hemoglobin (Bld) [Mass/Vol] 11.3 g/dL Low 11.5-15.5 [facility] Comment on above: Order Comment: Speci men Type: BLOOD SPECIMENOrdering Facility: [facility] Address: [address] [place] [address] Performed By: #### 5 7021-8 ####[facility] LABORATORYCLIA [id number] [place] [address] [place] Immature granulocytes (Bld) [#/Vol] 0.03 10*3/uL Normal <0.10 [facility] Comment on above: Order Comment: Speci men Type: BLOOD SPECIMENOrdering Facility: [facility] Address: [address] [place] [address] Performed By: #### 5 7021-8 ####AGARWAL LABORATORYCLIA [id number] [place] [address] [place] Immature granulocytes/100 WBC (Bld) 1.4 % Normal [facility] Comment on above: Order Comment: Speci men Type: BLOOD SPECIMENOrdering Facility: [facility] Address: [address] [place] [address] Performed By: #### 5 7021-8 ####AGARWAL LABORATORYCLIA [id number] [place] [address] [place] Lymphocytes (Bld) [#/Vol] 0.86 10*3/uL Low 1.00-4.00 [facility] Comment on above: Order Comment: Speci men Type: BLOOD SPECIMENOrdering Facility: [facility] Address: [address] [place] [address] Performed By: #### 5 7021-8 ####AGARWAL LABORATORYCLIA [id number] [address] Lymphocytes/100 WBC (Bld) 38.7 % Normal [facility] Comment on above: Order Comment: Speci men Type: BLOOD SPECIMENOrdering Facility: [facility] Address: [address] [place] [address] Performed By: #### 5 7021-8 ####AGARWAL LABORATORYCLIA [id number] [address] [place] MCH (RBC) [Entitic mass] 27.0 pg Normal 26.0-34.0 [facility] Comment on above: Order Comment: Speci men Type: BLOOD SPECIMENOrdering Facility: [facility] Address: [address] [place] [address] Performed By: #### 5 7021-8 ####AGARWAL LABORATORYCLIA [id number] [address] [place] MCHC (RBC) [Mass/Vol] 32.0 g/dL Normal 30.5-36.0 [facility] Comment on above: Order Comment: Speci men Type: BLOOD SPECIMENOrdering Facility: [facility] Address: [address] [place] [address] Performed By: #### 5 7021-8 ####AGARWAL LABORATORYCLIA [id number] [address] [place] MCV (RBC) [Entitic vol] 84.4 fL Normal 80.0-100.0 [facility] Comment on above: Order Comment: Speci men Type: BLOOD SPECIMENOrdering Facility: [facility] Address: [address] [place] [address] Performed By: #### 5 7021-8 ####AGARWAL LABORATORYCLIA [id number] [address] [place] Monocytes (Bld) [#/Vol] 0.47 10*3/uL Normal <0.87 [facility] Comment on above: Order Comment: Speci men Type: BLOOD SPECIMENOrdering Facility: [facility] Address: [address] [place] [address] Performed By: #### 5 7021-8 ####AGARWAL LABORATORYCLIA [id number] [address] [place] Monocytes/100 WBC (Bld) 21.2 % Normal [facility] Comment on above: Order Comment: Speci men Type: BLOOD SPECIMENOrdering Facility: [facility] Address: [address] [place] [address] Performed By: #### 5 7021-8 ####AGARWAL LABORATORYCLIA [id number] [place] [address] [place] Neutrophils (Bld) [#/Vol] 0.82 10*3/uL Low 1.45-7.50 [facility] Comment on above: Order Comment: Speci men Type: BLOOD SPECIMENOrdering Facility: [facility] Address: [address] [place] [address] Performed By: #### 5 7021-8 ####AGARWAL LABORATORYCLIA [id number] [address] [place] Neutrophils/100 WBC (Bld) 36.8 % Normal [facility] Comment on above: Order Comment: Speci men Type: BLOOD SPECIMENOrdering Facility: [facility] Address: [address] [place] [address] Performed By: #### 5 7021-8 ####AGARWAL LABORATORYCLIA [id number] [place] [address] [place] Nucleated RBC (Bld) [#/Vol] 10*3/uL Normal <0.01 [facility] Comment on above: Order Comment: Speci men Type: BLOOD SPECIMENOrdering Facility: [facility] Address: [address] [place] [address] Performed By: #### 5 7021-8 ####AGARWAL LABORATORYCLIA [id number] [place] [address] [place] Nucleated RBC/100 WBC (Bld) [Ratio] 0.0 /100 WBC Normal [facility] Comment on above: Order Comment: Speci men Type: BLOOD SPECIMENOrdering Facility: [facility] Address: [address] [place] [address] Performed By: #### 5 7021-8 ####AGARWAL LABORATORYCLIA [id number] [place] [address] [place] Platelet mean volume (Bld) [Entitic vol] 10.6 fL Normal 9.0-12.7 [facility] Comment on above: Order Comment: Speci men Type: BLOOD SPECIMENOrdering Facility: [facility] Address: [address] [place] [address] Performed By: #### 5 7021-8 ####AGARWAL LABORATORYCLIA [id number] [place] [address] [place] Platelets (Bld) [#/Vol] 103 10*3/uL Low 150-400 [facility] Comment on above: Order Comment: Speci men Type: BLOOD SPECIMENOrdering Facility: [facility] Address: [place] [address] Performed By: #### 5 7021-8 ####AGARWAL LABORATORYCLIA [id number] [place] [address] [place] RBC (Bld) [#/Vol] 4.18 10*6/uL Normal 3.90-5.20 [facility] Comment on above: Order Comment: Speci men Type: BLOOD SPECIMENOrdering Facility: [facility] Address: [place] [address] Performed By: #### 5 7021-8 ####AGARWAL LABORATORYCLIA [id number] [place] [id number] [place] WBC (Bld) [#/Vol] 2.22 10*3/uL Low 3.70-11.00 [facility] Comment on above: Order Comment: Speci men Type: BLOOD SPECIMENOrdering Facility: [facility] Address: [place] [address] Performed By: #### 5 7021-8 ####AGARWAL LABORATORYCLIA [id number] [address] [place] CONSULTon 11-07-2023 CONSULT HNO ID: [id number] Author: Rc Rodriguez MD Service: Infectious Disease [...] Osteopenia Psoriasis Pulmonary nodule Dr. Dawn Sepsis ([facility]) 11/05/2022 Snoring PAST SURGICAL HISTORY Procedure [...] mg cap(s) (more content not included)... Normal [facility] CRP SerPl-ncon 11-07-2023 CRP [Mass/Vol] 1.7 mg/dL High <0.9 [facility] Comment on above: Order Comment: Specscout mejía Type: BLOOD SPECIMENOrdering Facility: [facility] Address: [address] [place] [address] Performed By: #### 1 988-5, 74572-9, ####[facility] LABORATORYCLIA [id number] [place] [address] [place] [facility] [place] Comprehensive metabolic 2000 panelon 11-07-2023 Albumin [Mass/Vol] 3.7 g/dL Low 3.9-4.9 [facility] Comment on above: Order Comment: Speci alfonzo Type: BLOOD SPECIMENOrdering Facility: [facility] Address: [address] [place] [address] Performed By: #### 1 988-5, 13499-9, ####[facility] LABORATORYCLIA [id number] [place] [address] [place] ALP [Catalytic activity/Vol] 81 U/L Normal 34-123 [facility] Comment on above: Order Comment: Speci men Type: BLOOD SPECIMENOrdering Facility: [facility] Address: [address] [facility] [place] [address] Performed By: #### 1 988-5, , ####AGARWAL LABORATORYCLIA [id number] [place] [address] [place] ALT [Catalytic activity/Vol] 18 U/L Normal 7-38 [facility] Comment on above: Order Comment: Speci men Type: BLOOD SPECIMENOrdering Facility: [facility] Address: [address] [place] [address] Performed By: #### 1 988-5, , ####AGARWAL LABORATORYCLIA [id number] [place] [address] [place] Anion gap [Moles/Vol] 9 mmol/L Normal 9-18 [facility] Comment on above: Order Comment: Speci men Type: BLOOD SPECIMENOrdering Facility: [facility] Address: [address] [place] [address] Performed By: #### 1 988-5, , ####AGARWAL LABORATORYCLIA [id number] [address] [place] AST [Catalytic activity/Vol] 22 U/L Normal 13-35 [facility] Comment on above: Order Comment: Speci men Type: BLOOD SPECIMENOrdering Facility: [facility] Address: [address] [place] [address] Performed By: #### 1 988-5, , ####AGARWAL LABORATORYCLIA [id number] [place] [id number] [place] Bilirubin [Mass/Vol] 0.4 mg/dL Normal 0.2-1.3 [facility] Comment on above: Order Comment: Speci men Type: BLOOD SPECIMENOrdering Facility: [facility] Address: [address] [place] [address] Performed By: #### 1 988-5, 71941-2, ####AGARWAL LABORATORYCLIA [id number] [address] STATES OF [facility] Calcium [Mass/Vol] 8.5 mg/dL Normal 8.5-10.2 [facility] Comment on above: Order Comment: Speci men Type: BLOOD SPECIMENOrdering Facility: [facility] Address: [address] [place] [address] Performed By: #### 1 988-5, 03021-9, ####AGARWAL LABORATORYCLIA [id number] [place] [address] [place] Chloride [Moles/Vol] 108 mmol/L High 97-105 [facility] Comment on above: Order Comment: Speci men Type: BLOOD SPECIMENOrdering Facility: [facility] Address: [address] [place] [address] Performed By: #### 1 988-5, , ####AGARWAL LABORATORYCLIA [id number] [address] [place] CO2 [Moles/Vol] 26 mmol/L Normal 22-30 [facility] Comment on above: Order Comment: Speci men Type: BLOOD SPECIMENOrdering Facility: [facility] Address: [address] [place] [address] Performed By: #### 1 988-5, , ####AGARWAL LABORATORYCLIA [id number] [address] [place] Creatinine [Mass/Vol] 0.80 mg/dL Normal 0.58-0.96 [facility] Comment on above: Order Comment: Speci men Type: BLOOD SPECIMENOrdering Facility: [facility] Address: [address] [place] [address] Performed By: #### 1 988-5, , ####AGARWAL LABORATORYCLIA [id number] [address] Creatinine and Glomerular filtration rate.predicted panel (S/P/Bld) 74 mL/min/1.73m??? Normal >=60 [facility] Comment on above: Order Comment: Speci men Type: BLOOD SPECIMENOrdering Facility: [facility] Address: [address] [place] [address] Result Comment: Callie mated Glomerular Filtration Rate [...] actual GFR. Performed By: #### 1 988-5, 11515-7, ####[facility] LABORATORYCLIA [id number] [place] [id number] [place] Glucose [Mass/Vol] 78 mg/dL Normal 74-99 [facility] Comment on above: Order Comment: Laura mejía Type: BLOOD SPECIMENOrdering Facility: [facility] Address: [address] [place] [address] Result Comment: The [place] [employer] (ADA) provides guidance for cutoff [...] Standards of Medical Care in Diabetes 2016, [place] [employer]. Diabetes Care. 2016.39(Suppl 1). Performed By: #### 1 988-5, 15281-4, 74425-9 ####[facility] LABORATORYCLIA [id number] [place] [address] [place] Potassium [Moles/Vol] 4.4 mmol/L Normal 3.7-5.1 [facility] Comment on above: Order Comment: Laura mejía Type: BLOOD SPECIMENOrdering Facility: [facility] Address: [address] [place] [address] Performed By: #### 1 988-5, 73836-6, ####AGAR[facility]AL LABORATORYCLIA [id number] [address] [place] Protein [Mass/Vol] 6.3 g/dL Normal 6.3-8.0 [facility] Comment on above: Order Comment: Speci men Type: BLOOD SPECIMENOrdering Facility: [facility] Address: [address] [place] [address] Performed By: #### 1 988-5, 16315-5, 93425-7 ####AGARWAL LABORATORYCLIA [id number] [address] Sodium [Moles/Vol] 143 mmol/L Normal 136-144 [facility] Comment on above: Order Comment: Speci men Type: BLOOD SPECIMENOrdering Facility: [facility] Address: [address] [place] [address] Performed By: #### 1 988-5, 03218-6, ####AGARWAL LABORATORYCLIA [id number] [address] Urea nitrogen [Mass/Vol] 17 mg/dL Normal 7-21 [facility] Comment on above: Order Comment: Speci men Type: BLOOD SPECIMENOrdering Facility: [facility] Address: [address] [place] [address] Performed By: #### 1 988-5, 37054-5, 82938-7 ####AGARWAL LABORATORYCLIA [id number] [address] [place] D dimer FEU PPP-mCncon 11-07 Fibrin D-dimer FEU (PPP) [Mass/Vol] 500 ng/mL FEU High <500 [facility] Comment on above: Order Comment: Speci men Type: BLOOD SPECIMENOrdering Facility: [facility] Address: [address] [place] [address] Performed By: #### 4 8065-7 ####AGARWAL LABORATORYCLIA [id number] [address] [place] ED NOTEon 11-07-2023 ED NOTE HNO ID: [id number] Author: Tika Ashford RN Service: ? Author Type: Registered Nurse Type: ED Notes Filed: 11/07/2023 3:55 AM Note Text: Report called to [facility] ED NOTE HNO ID: [id number] Author: Mariusz Monson RN Service: ? Author Type: Registered Nurse Type: ED Notes Filed: 11/07/2023 1:18 AM Note Text: Report to Tika [facility] Fibrin D-dimer FEU (PPP) [Ma ss/Vol]on 11-07-2023 D DIMER AGE-RELATED CUTOFF 810 ng/mL FEU [facility] Comment on above: Order Comment: Speci men Type: BLOOD SPECIMENOrdering Facility: [facility] Address: [address] [place] [address] Performed By: #### 4 8065-7 ####[facility] LABORATORYCLIA [id number] [place] [address] [place] Magnesium SerPl-mCncon 11-07 Magnesium [Mass/Vol] 2.2 mg/dL Normal 1.7-2.3 [facility] Comment on above: Order Comment: Speci men Type: BLOOD SPECIMENOrdering Facility: [facility] Address: [address] [place] [address] Performed By: #### 1 988-5, 60924-6, 19234-3 ####[facility] LABORATORYCLIA [id number] [place] [address] [place] NURSING PROGon 11-07-2023 NURSING PROG HNO ID: [id number] Author: Christiane Gilbert RN Service: ? Author Type: Registered Nurse Type: Nursing Progress Note Filed: 11/07/2023 9:17 AM Note Text: Nursing Progress Note Vital Caustics Loader Assessment Note Patient Name: Florecita Healy Patient Location: [facility]- 1 ____ Patient Vitals for the past [...] note was completed by: Christiane Gilbert RN [facility] STREPTOCOCCUS PNEUMONIAE AGo n 11-07-2023 STREPTOCOCCUS PNEUMONIAE AG STREP PNEUMO AG RESULT: Negative for Streptococcus pneumoniae antigen. Presumptive negative for pneumococcal pneumonia, suggesting no current or recent pneumococcal infection. Infection due to S.pneumoniae cannot be ruled out since the antigen present in the sample may be below the detection limit of the test. [facility] Comment on above: Performed By: #### S PNAG ####[facility] LABCLIA [id number] [address] [facility] ALLIED HEALTHon 11-06-2023 ALLIED HEALTH HNO ID: [id number] Author: Kami Mitchell CT Service: Radiology Author [...] CURLY Conway November 06, 2023 2:[address] [facility] CBC W Auto Differential pane l (Bld)on 11-06-2023 Basophils (Bld) [#/Vol] 0.00 10*3/uL Normal <0.11 [facility] Comment on above: Order Comment: Speci men Type: BLOOD SPECIMENOrdering Facility: [facility] Address: [address] [place] [address] Performed By: #### 5 7021-8 ####AG[facility] LABORATORYCLIA [id number] [place] [address] [place] Basophils/100 WBC (Bld) 0.0 % Normal [facility] Comment on above: Order Comment: Speci men Type: BLOOD SPECIMENOrdering Facility: [facility] Address: [address] [place] [address] Performed By: #### 5 7021-8 ####AG[facility]WAL LABORATORYCLIA [id number] [address] [place] Differential cell count method Nom (Bld) Manual Normal [facility] Comment on above: Order Comment: Speci men Type: BLOOD SPECIMENOrdering Facility: [facility] Address: [address] [place] [address] Performed By: #### 5 7021-8 ####AG[facility] LABORATORYCLIA [id number] [place] [address] [place] Eosinophils (Bld) [#/Vol] 0.00 10*3/uL Normal <0.46 [facility] Comment on above: Order Comment: Speci men Type: BLOOD SPECIMENOrdering Facility: [facility] Address: [address] [place] [address] Performed By: #### 5 7021-8 ####[facility] LABORATORYCLIA [id number] [place] [address] [place] Eosinophils/100 WBC (Bld) 0.0 % Normal [facility] Comment on above: Order Comment: Speci men Type: BLOOD SPECIMENOrdering Facility: [facility] Address: [address] [place] [address] Performed By: #### 5 7021-8 ####AGARWAL LABORATORYCLIA [id number] [place] [address] [place] Erythrocyte distribution width (RBC) [Ratio] 14.4 % Normal 11.5-15.0 [facility] Comment on above: Order Comment: Speci men Type: BLOOD SPECIMENOrdering Facility: [facility] Address: [address] [place] [address] Performed By: #### 5 7021-8 ####[facility] LABORATORYCLIA [id number] [address] [place] Hematocrit (Bld) [Volume fraction] 35.4 % Low 36.0-46.0 [facility] Comment on above: Order Comment: Speci men Type: BLOOD SPECIMENOrdering Facility: [facility] Address: [address] [place] [address] Performed By: #### 5 7021-8 ####[facility] LABORATORYCLIA [id number] [address] [place] Hemoglobin (Bld) [Mass/Vol] 12.2 g/dL Normal 11.5-15.5 [facility] Comment on above: Order Comment: Speci men Type: BLOOD SPECIMENOrdering Facility: [facility] Address: [address] [place] [address] Performed By: #### 5 7021-8 ####[facility] LABORATORYCLIA [id number] [address] [place] Lymphocytes (Bld) [#/Vol] 0.61 10*3/uL Low 1.00-4.00 [facility] Comment on above: Order Comment: Speci men Type: BLOOD SPECIMENOrdering Facility: [facility] Address: [address] [place] [address] Performed By: #### 5 7021-8 ####AG[facility] LABORATORYCLIA [id number] [address] [place] Lymphocytes/100 WBC (Bld) 25.0 % Normal [facility] Comment on above: Order Comment: Speci men Type: BLOOD SPECIMENOrdering Facility: [facility] Address: [address] [place] [address] Performed By: #### 5 7021-8 ####AG[facility] LABORATORYCLIA [id number] [address] MCH (RBC) [Entitic mass] 28.2 pg Normal 26.0-34.0 [facility] Comment on above: Order Comment: Speci men Type: BLOOD SPECIMENOrdering Facility: [facility] Address: [address] [place] [address] Performed By: #### 5 7021-8 ####[facility] LABORATORYCLIA [id number] [address] MCHC (RBC) [Mass/Vol] 34.5 g/dL Normal 30.5-36.0 [facility] Comment on above: Order Comment: Speci men Type: BLOOD SPECIMENOrdering Facility: [facility] Address: [address] [place] [address] Performed By: #### 5 7021-8 ####[facility] LABORATORYCLIA [id number] [address] MCV (RBC) [Entitic vol] 81.9 fL Normal 80.0-100.0 [facility] Comment on above: Order Comment: Speci men Type: BLOOD SPECIMENOrdering Facility: [facility] Address: [address] [place] [address] Performed By: #### 5 7021-8 ####[facility] LABORATORYCLIA [id number] [address] Metamyelocytes/100 WBC (Bld) 2.0 % Normal [facility] Comment on above: Order Comment: Speci men Type: BLOOD SPECIMENOrdering Facility: [facility] Address: [address] [place] [address] Performed By: #### 5 7021-8 ####[facility] LABORATORYCLIA [id number] [address] Monocytes (Bld) [#/Vol] 0.49 10*3/uL Normal <0.87 [facility] Comment on above: Order Comment: Speci men Type: BLOOD SPECIMENOrdering Facility: [facility] Address: [address] [place] [address] Performed By: #### 5 7021-8 ####[facility] LABORATORYCLIA [id number] [address] Monocytes/100 WBC (Bld) 20.0 % Normal [facility] Comment on above: Order Comment: Speci men Type: BLOOD SPECIMENOrdering Facility: [facility] Address: [address] [place] [address] Performed By: #### 5 7021-8 ####AG[facility] LABORATORYCLIA [id number] [place] [address] [place] Neutrophils (Bld) [#/Vol] 1.29 10*3/uL Low 1.45-7.50 [facility] Comment on above: Order Comment: Speci men Type: BLOOD SPECIMENOrdering Facility: [facility] Address: [address] [place] [address] Performed By: #### 5 7021-8 ####[facility] LABORATORYCLIA [id number] [address] Neutrophils/100 WBC (Bld) 53.0 % Normal [facility] Comment on above: Order Comment: Speci men Type: BLOOD SPECIMENOrdering Facility: [facility] Address: [address] [place] [address] Performed By: #### 5 7021-8 ####[facility] LABORATORYCLIA [id number] [place] [address] [place] Nucleated RBC (Bld) [#/Vol] 10*3/uL Normal <0.01 [facility] Comment on above: Order Comment: Speci men Type: BLOOD SPECIMENOrdering Facility: [facility] Address: [address] [place] [address] Performed By: #### 5 7021-8 ####[facility] LABORATORYCLIA [id number] [place] [address] [place] Nucleated RBC/100 WBC (Bld) [Ratio] 0.0 /100 WBC Normal [facility] Comment on above: Order Comment: Speci men Type: BLOOD SPECIMENOrdering Facility: [facility] Address: [address] [place] [address] Performed By: #### 5 7021-8 ####[facility] LABORATORYCLIA [id number] [place] [address] Platelet mean volume (Bld) [Entitic vol] 10.0 fL Normal 9.0-12.7 [facility] Comment on above: Order Comment: Speci men Type: BLOOD SPECIMENOrdering Facility: [facility] Address: [address] [place] [address] Performed By: #### 5 7021-8 ####[facility] LABORATORYCLIA [id number] [address] [place] Platelets (Bld) [#/Vol] 109 10*3/uL Low 150-400 [facility] Comment on above: Order Comment: Speci men Type: BLOOD SPECIMENOrdering Facility: [facility] Address: [address] [place] [address] Performed By: #### 5 7021-8 ####[facility] LABORATORYCLIA [id number] [address] Platelets Estimate (Bld) [#/Vol] Decreased Normal [facility] Comment on above: Order Comment: Speci men Type: BLOOD SPECIMENOrdering Facility: [facility] Address: [address] [place] [address] Performed By: #### 5 7021-8 ####[facility] LABORATORYCLIA [id number] [address] [place] RBC (Bld) [#/Vol] 4.32 10*6/uL Normal 3.90-5.20 [facility] Comment on above: Order Comment: Speci men Type: BLOOD SPECIMENOrdering Facility: [facility] Address: [address] [place] [address] Performed By: #### 5 7021-8 ####[facility] LABORATORYCLIA [id number] [address] RED CELL MORPH Reviewed: unremarkable Normal [facility] Comment on above: Order Comment: Speci men Type: BLOOD SPECIMENOrdering Facility: [facility] Address: [address] [place] [address] Performed By: #### 5 7021-8 ####[facility] LABORATORYCLIA [id number] [address] [place] WBC (Bld) [#/Vol] 2.43 10*3/uL Low 3.70-11.00 [facility] Comment on above: Order Comment: Speci men Type: BLOOD SPECIMENOrdering Facility: [facility] Address: [address] [place] [address] Performed By: #### 5 7021-8 ####[facility] LABORATORYCLIA [id number] [address] [facility] WBC Left Shift Ql (Bld) Present Normal [facility] Comment on above: Order Comment: Speci men Type: BLOOD SPECIMENOrdering Facility: [facility] Address: [address] [place] [address] Performed By: #### 5 7021-8 ####[facility] LABORATORYCLIA [id number] [address] Comprehensive metabolic 2000 panelon 11-06-2023 Albumin [Mass/Vol] 3.9 g/dL Normal 3.9-4.9 [facility] Comment on above: Order Comment: Speci men Type: BLOOD SPECIMENOrdering Facility: [facility] Address: [address] [place] [address] Performed By: #### 3 3959-8, 68956-3 ####[facility] LABORATORYCLIA [id number] [address] [place] ALP [Catalytic activity/Vol] 98 U/L Normal 34-123 [facility] Comment on above: Order Comment: Speci men Type: BLOOD SPECIMENOrdering Facility: [facility] Address: [address] [place] [address] Performed By: #### 3 3959-8, 91144-8 ####[facility] LABORATORYCLIA [id number] [address] ALT [Catalytic activity/Vol] 13 U/L Normal 7-38 [facility] Comment on above: Order Comment: Speci men Type: BLOOD SPECIMENOrdering Facility: [facility] Address: [address] [place] [address] Performed By: #### 3 3959-8, 48612-7 ####[facility] LABORATORYCLIA [id number] [address] [facility] Anion gap [Moles/Vol] 12 mmol/L Normal 9-18 [facility] Comment on above: Order Comment: Speci men Type: BLOOD SPECIMENOrdering Facility: [facility] Address: [address] [place] [address] Performed By: #### 3 3959-8, 19666-3 ####[facility] LABORATORYCLIA [id number] [address] [place] AST [Catalytic activity/Vol] 18 U/L Normal 13-35 [facility] Comment on above: Order Comment: Speci men Type: BLOOD SPECIMENOrdering Facility: [facility] Address: [address] [facility] [place] [address] Performed By: #### 3 3959-8, 77325-3 ####[facility] LABORATORYCLIA [id number] [address] STATES OF [facility] Bilirubin [Mass/Vol] 0.5 mg/dL Normal 0.2-1.3 [facility] Comment on above: Order Comment: Speci men Type: BLOOD SPECIMENOrdering Facility: [facility] Address: [address] [facility] [place] [address] Performed By: #### 3 3959-8, 01566-3 ####[facility] LABORATORYCLIA [id number] [address] Calcium [Mass/Vol] 8.9 mg/dL Normal 8.5-10.2 [facility] Comment on above: Order Comment: Speci men Type: BLOOD SPECIMENOrdering Facility: [facility] Address: [address] [facility] [place] [address] Performed By: #### 3 3959-8, 13471-1 ####[facility] LABORATORYCLIA [id number] [place] [address] [place] Chloride [Moles/Vol] 104 mmol/L Normal 97-105 [facility] Comment on above: Order Comment: Speci men Type: BLOOD SPECIMENOrdering Facility: [facility] Address: [address] [facility] [place] [address] Performed By: #### 3 3959-8, 78936-1 ####[facility] LABORATORYCLIA [id number] [place] [address] [place] CO2 [Moles/Vol] 22 mmol/L Normal 22-30 [facility] Comment on above: Order Comment: Speci men Type: BLOOD SPECIMENOrdering Facility: [facility] Address: [address] [place] [address] Performed By: #### 3 3959-8, 16030-4 ####[facility] LABORATORYCLIA [id number] [place] [address] [place] Creatinine [Mass/Vol] 0.77 mg/dL Normal 0.58-0.96 [facility] Comment on above: Order Comment: Speci men Type: BLOOD SPECIMENOrdering Facility: [facility] Address: [address] [place] [address] Performed By: #### 3 3959-8, 64358-8 ####AG[facility] LABORATORYCLIA [id number] [address] Creatinine and Glomerular filtration rate.predicted panel (S/P/Bld) 78 mL/min/1.73m??? Normal >=60 [facility] Comment on above: Order Comment: Speci men Type: BLOOD SPECIMENOrdering Facility: [facility] Address: [address] [place] [address] Result Comment: Callie mated Glomerular Filtration Rate [...] actual GFR. Performed By: #### 3 3959-8, 73094-2 ####AG[facility] LABORATORYCLIA [id number] [place] [id number] [place] Glucose [Mass/Vol] 132 mg/dL High 74-99 [facility] Comment on above: Order Comment: Rafaeli alfonzo Type: BLOOD SPECIMENOrdering Facility: [facility] Address: [address] [place] [address] Result Comment: The [place] [employer] (ADA) provides guidance for cutoff [...] Standards of Medical Care in Diabetes 2016, [place] [employer]. Diabetes Care. 2016.39(Suppl 1). Performed By: #### 3 3959-8, 56489-0 ####[facility] LABORATORYCLIA [id number] [place] [address] [place] Potassium [Moles/Vol] 3.3 mmol/L Low 3.7-5.1 [facility] Comment on above: Order Comment: Laura mejía Type: BLOOD SPECIMENOrdering Facility: [facility] Address: [address] [place] [address] Performed By: #### 3 3959-8, ####AGARWAL LABORATORYCLIA [id number] [place] [address] [place] Protein [Mass/Vol] 6.9 g/dL Normal 6.3-8.0 [facility] Comment on above: Order Comment: Laura mejía Type: BLOOD SPECIMENOrdering Facility: [facility] Address: [address] [place] [address] Performed By: #### 3 3959-8, ####[facility] LABORATORYCLIA [id number] [place] [address] [place] Sodium [Moles/Vol] 138 mmol/L Normal 136-144 [facility] Comment on above: Order Comment: Laura mejía Type: BLOOD SPECIMENOrdering Facility: [facility] Address: [address] [place] [address] Performed By: #### 3 3959-8, 42079-7 ####[facility] LABORATORYCLIA [id number] [place] [address] [place] Urea nitrogen [Mass/Vol] 19 mg/dL Normal 7-21 [facility] Comment on above: Order Comment: Speci men Type: BLOOD SPECIMENOrdering Facility: [facility] Address: [place] [address] Performed By: #### 3 3959-8, 82672-0 ####[place] LABORATORYCLIA [id number] [place] [address] [facility] ED NOTEon 11-06-2023 ED NOTE HNO ID: [id number] Author: Mariusz Monson, HERNESTO Service: ? Author Type: Registered Nurse Type: ED Notes Filed: 11/06/2023 10:22 PM Note Text: Pt amb[place] [facility]. BM was watery. [facility] ED NOTE HNO ID: [id number] Author: Bbobi Mccann, HERNESTO Service: ? Author Type: Registered Nurse Type: ED Notes Filed: 11/06/2023 9:03 PM Note Text: Bed: ED-06 Expected date: 11/06/23 Expected time: Means of arrival: Comments: Rx2 [facility] ED NOTE HNO ID: [id number] Author: Colin Pascual RN Service: Nursing Author Type: Registered Nurse Type: ED Notes Filed: 11/06/2023 1:58 PM Note Text: Patient states that she has been having multiple issues x 1 week. Headache, abdominal pain, vomiting, dizziness, sore throat and occasional chest heaviness. [facility] ED PROV NOTEon 11-06-2023 ED PROV NOTE HNO ID: [id number] Author: Hector Moon MD Service: Emergency Medicine [...] breast (HCC) Chronic obstructive pulmonary disease (COPD) ([facility]) Chronic pain 06/03/2012 sees pain management. Diarrhea 11/06/2022 Hyperlipidemia 06/03/2012 Hypertension 06/03/2012 Nausea AND vomiting 11/06/2022 Osteopenia Psoriasis Pulmonary nodule Dr. Dawn Sepsis ([facility]) 11/05/2022 Snoring PAST SURGICAL HISTORY Procedure [...] nursing note reviewed. Exam conducted with a book binder present. HENT: Head: Normocephalic and atraumatic. Nose: [...] limits Segundo (more content not included)... Normal [facility] EKGon 11-06-2023 Electrocardiogram Ventricular Rate : 6 5 BPM Atrial Rate : 65 BPM P-R Interval : 178 ms QRS Duration : 124 ms Q-T Interval : 470 ms QTC Calculation(Bazett) : 488 ms Calculated P Hext : 69 degrees Calculated R Hext : -45 degrees Calculated T Hext : 22 degrees NORMAL SINUS RHYTHM RIGHT BUNDLE BRANCH BLOCK LEFT ANTERIOR FASCICULAR BLOCK BIFASCICULAR BLOCK ABNORMAL ECG no stemi Confirmed by HECTOR MOON ([id number]), editorial manager MARYANNE VANEGAS (1940) on 11/07/2023 10:35:08 AM NAME : FLORECITA HEALY PID : [id number] : 1940 Gender : Female Race : ORD : Procedure Date : Nov 06 2023 14:02:25 Edit Date : Nov 07 2023 10:35:10 Diagnosis: NORMAL SINUS RHYTHM RIGHT BUNDLE BRANCH BLOCK LEFT ANTERIOR FASCICULAR BLOCK BIFASCICULAR BLOCK ABNORMAL ECG no stemi Confirmed by HECTOR MOON ([id number]), editorial manager MARYANNE VANEGAS (1940) on 11/07/2023 10:35:08 AM Test Reason : Location : 1 : ER [facility] Overread By : HECTOR MOON Edited By : MARYANNE VANEGAS Referred By : , Acquired by : Zehra PASCUAL [facility] FLUABV+SARS-CoV-2+RSV Pnl Re sp GEOVANNY+probeon 11-06-2023 FLUABV+SARS-CoV-2+RSV Pnl Resp GEOVANNY+probe COVID 19 RESULT: Detected The method used is RT-PCR or an equivalent NAAT method. Reference Range(the expected result in uninfected individuals): Not detected INFLUENZA A PCR: Not detected INFLUENZA B PCR: Not detected RSV PCR: Not detected Abnormal [facility] Comment on above: Performed By: #### 9 5941-1 ####[facility] LABORATORYCLIA [id number] [place], [place] [id number] [place] [address] [place] HISTORY PHYSICALon 3 HISTORY PHYSICAL HNO ID: [id number] Author: Kirk Smith MD Service: Hospital Medicine Author Type: Physician Type: HANDP Filed: 11/06/2023 11:10 PM Note Text: DEPARTMENT OF HOSPITAL MEDICINE HISTORY AND PHYSICAL EXAM SERVICE DATE: 11/06/2023 Code Status: Prior SERVICE TIME: 10:54 PM Primary Care Physician: Tu Canela MD NIGHT AND WEEKEND COVERAGE: [place] COVERAGE: Days: [phone], please page attending physician. Nights: [phone], please page [place] [facility] Night coverage pager [phone]. Subjective CHIEF COMPLAINT: COVID-19 HPI: This is [...] of upper-outer quadrant of left female breast ([facility]) Chronic obstructive pulmonary disease (COPD) ([facility]) Chronic pain 06/03/2012 sees pain management. Diarrhea 11/06/2022 Hyperlipidemia 06/03/2012 Hypertension 06/03/2012 Nausea AND vomiting 11/06/2022 Osteopenia Psoriasis Pulmonary nodule Dr. Dawn Sepsis ([facility]) 11/05/2022 Snoring PAST SURGICAL HISTORY Procedure [...] or abnormaliti (more content not included)... Normal [facility] Procalcitonin SerPl-mCncon 1 01-07-2023 Procalcitonin [Mass/Vol] 0.09 ng/mL High <0.09 [facility] Comment on above: Order Comment: Speci men Type: BLOOD SPECIMENOrdering Facility: [facility] Address: [address] [place] [address] Result Comment: For a guided interpretation of test results, please visit the Change in Procalcitonin Calculator, [email or web address]. Performed By: #### 3 3959-8, 31550-0 ####[place] LABORATORYCLIA [id number] [place] [address] [facility] [place] XR CHEST 2V FRONTAL/LATon [...] tissues: Unremarkable. IMPRESSION: No acute radiographic abnormality. Gas Furnace Installer: PSCBrent Transcribe Date/Time: Nov 06 2023 2:43P Dictated by : MADDIE PERKINS MD This examination was interpreted and the report reviewed and electronically signed by: MADDIE PERKINS MD on Nov 06 2023 2:43PM EST [id number] [facility] TSH BLDon 08-01-2023 TSH Qn 3.090 m[IU]/L 0.270 - 4.200 mIU/L [facility] HbA1c (Bld)on 03-02-2023 Average glucose Estimated from glycated hemoglobin (Bld) [Mass/Vol] 103 mg/dL [facility] HbA1c (Bld) [Mass fraction] 5.2 % 4.3 - 5.6 % [facility] Urinalysis complete panel (U )on 03-02-2023 Bacteria LM.HPF (Urine sed) [#/Area] Rare Abnormal None Seen /HPF [facility] Bilirubin Ql (U) Negative Negative [facility] Clarity (Unsp spec) Clear Clear [facility] Color (U) Yellow Yellow [facility] Epithelial cells LM.HPF (Urine sed) [#/Area] Few [facility] Glucose Test strip (U) [Mass/Vol] Negative Trace, Negative [facility] Hemoglobin Ql (U) Trace Negative, Trace [facility] Ketones Ql (U) Negative Trace, Negative [facility] Leukocyte esterase Test strip Ql (U) 250 Anjana/uL Abnormal Negative, 25 Anjana/uL [facility] Nitrite Ql (U) Negative Negative [facility] pH (U) 6.0 [pH] 5.0 - 8.0 [facility] Protein (U) [Mass/Vol] 1+ Abnormal Trace , Negative [facility] RBC LM.HPF (Urine sed) [#/Area] 3-5 /HPF Abnormal 0-3 /HPF [facility] Specific gravity (U) [Rel density] 1.023 1.005 - 1.030 [facility] Urobilinogen Ql (U) Negative Negative [facility] WBC LM.HPF (Urine sed) [#/Area] /[HPF] Abnormal 0-5 /HPF [facility] Routine wound cultureOrdered By: Dr. Tim on 12-15-2022 Bacteria identified Cx Nom (Wound) No growth aerobically. [facility] Gram stain for investigation of transfusion reactionOrdered By: Dr. Tim on 12-12-2022 Microscopic observation Gram stain Nom (Unsp spec) [facility] Routine wound cultureOrdered By: Dr. Tim on 12-07-2022 Bacteria identified Cx Nom (Wound) No growth aerobically. [facility] Gram stain for investigation of transfusion reactionOrdered By: Dr. Tim on 12-06-2022 Microscopic observation Gram stain Nom (Unsp spec) [facility] Bacteria identified Cx Nom ( Wound)Ordered By: Dr. Tim on 11-22-2022 Wound Culture Bacillus sp., not anthracis [facility] Wound Culture Streptococcus pyogenes [facility] Gram stain for investigation of transfusion reactionOrdered By: Dr. Tim on 11-20-2022 Microscopic observation Gram stain Nom (Unsp spec) [facility] Basic metabolic 2000 panelon 06-14-2022 Anion gap [Moles/Vol] 13 mmol/L 9 - 18 mmol/L [facility] Calcium [Mass/Vol] 9.7 mg/dL 8.5 - 10. 2 mg/dL [facility] Chloride [Moles/Vol] 107 mmol/L High 97 - 10 5 mmol/L [facility] CO2 [Moles/Vol] 24 mmol/L 22 - 30 mmol/L [facility] Creatinine [Mass/Vol] 0.91 mg/dL 0.58 - 0.96 mg/dL [facility] Estimated Glomerular Filtration Rate 64 mL/min/1.73m >=60 mL/min/1.73m [facility] Glucose [Mass/Vol] 90 mg/dL 74 - 99 mg/dL [facility] Potassium [Moles/Vol] 4.4 mmol/L 3.7 - 5.1 mmol/L [facility] Sodium [Moles/Vol] 144 mmol/L 136 - 144 mmol/L [facility] Urea nitrogen [Mass/Vol] 13 mg/dL 7 - 21 mg/dL [facility] TITO SCREENINGon 05-02-2022 [facility] No Panel Informationon 11-30 Radiology Study observation (narrative) [facility] XR Ankle - right AP and Late ral and obliqueon 11-30-2021 IMPRESSION: 1. Small ankle joint effusion. 2. Calcaneal enthesopathy. Gas Furnace Installer: PRINCE Transcribe Date/Time: Nov 30 2021 12:36P Dictated by : DRISS MCDONNELL MD This examination was interpreted and the report reviewed and electronically signed by: DRISS MCDONNELL MD on Nov 30 2021 12:38PM [facility] DIVISION OF RADIOLOGY * * *Final [...] plantar calcaneal enthesophytes. DIVISION OF RADIOLOGY Provider, [facility] Latesha Ivy - 11/30/2021 * * *Final [...] Small ankle joint effusion. 2. Calcaneal enthesopathy. Gas Furnace Installer: PRINCE Transcribe Date/Time: Nov 30 2021 12:36P Dictated by : DRISS MCDONNELL MD This examination was interpreted and the report reviewed and electronically signed by: DRISS MCDONNELL MD on Nov 30 2021 12:38PM EST [facility] XR Ankle - right AP and Late ral and obliqueOrdered By: Cc Provider on 11-30-2021 [facility] XR Foot - right AP and Later al and obliqueon 11-30-2021 IMPRESSION: No acute process is seen. Degenerative changes, as described. Gas Furnace Installer: PRINCE Transcribe Date/Time: Nov 30 2021 12:36P Dictated by : LI PEREZ MD This examination was interpreted and the report reviewed and electronically signed by: LI PEREZ MD on Nov 30 2021 12:37PM [facility] DIVISION OF RADIOLOGY * * *Final [...] change. DIVISION OF RADIOLOGY Provider, Yamilet Latesha [facility] - 11/30/2021 * * *Final Report* * [...] process is seen. Degenerative changes, as described. Gas Furnace Installer: PSCB Transcribe Date/Time: Nov 30 2021 12:36P Dictated by : LI PEREZ MD This examination was interpreted and the report reviewed and electronically signed by: LI PEREZ MD on Nov 30 2021 12:37PM [facility] Vital Signs Date Time Vital Sign Value Performing Clinician Facility 06-04-2025 11:06-0400 Diastolic blood pressure 83 mm[Hg] Jannie Proctor DO Work Phone: [facility] 06-04-2025 11:06-0400 Heart rate 90 /min Jannie Proctor DO Work Phone: [facility] 06-04-2025 11:06-0400 SaO2% (BldA) [Mass fraction] 96 % Jannie Proctor DO Work Phone: [facility] 06-04-2025 11:06-0400 Systolic blood pressure 145 mm[Hg] Jannie Proctor DO Work Phone: [facility] 04-29-2025 10:30-0400 Diastolic blood pressure 82 mm[Hg] Rosie Syed APRN.CALENDER WORKER HELPER Work Phone: [facility] 06-18-2025 10:30-0400 Systolic blood pressure 134 mm[Hg] Rosie Haagen MAINTENANCE DIRECTOR.CALENDER WORKER HELPER Work Phone: [facility] 04-29-2025 09:54-0400 Heart rate 91 /min Rosie Haagen MAINTENANCE DIRECTOR.CALENDER WORKER HELPER Work Phone: [facility] 04-29-2025 09:54-0400 Respiratory rate 16 /min Rosie Haagen MAINTENANCE DIRECTOR.CALENDER WORKER HELPER Work Phone: [facility] 04-29-2025 09:54-0400 SaO2% (BldA) [Mass fraction] 96 % Rosie Haagen MAINTENANCE DIRECTOR.CALENDER WORKER HELPER Work Phone: [facility] 04-14-2025 10:52-0400 Diastolic blood pressure 84 mm[Hg] Jannie Proctor DO Work Phone: [facility] 04-14-2025 10:52-0400 Heart rate 82 /min Jannie Proctor DO Work Phone: [facility] 04-14-2025 10:52-0400 SaO2% (BldA) [Mass fraction] 96 % Jannie Proctor DO Work Phone: [facility] 04-14-2025 10:52-0400 Systolic blood pressure 155 mm[Hg] Jannie Proctor DO Work Phone: [facility] 02-11-2025 14:26-0400 Diastolic blood pressure 70 mm[Hg] Tu Canela MD Work Phone: [facility] 02-11-2025 14:26-0400 Systolic blood pressure 128 mm[Hg] Tu Canela MD Work Phone: [facility] 02-11-2025 13:53-0400 Body mass index (BMI) [Ratio] 28.79 kg/m2 Tu Canela MD Work Phone: [facility] 02-11-2025 13:53-0400 Body weight 78.47 kg Tu Canela MD Work Phone: [facility] 02-11-2025 13:53-0400 Heart rate 87 /min Tu Canela MD Work Phone: [facility] 02-11-2025 13:53-0400 SaO2% (BldA) [Mass fraction] 97 % Tu Canela MD Work Phone: [facility] 02-09-2025 10:01-0400 Diastolic blood pressure 64 mm[Hg] Jannie Proctor DO Work Phone: [facility] 02-09-2025 10:01-0400 Heart rate 73 /min Jannie Proctor DO Work Phone: [facility] 02-09-2025 10:01-0400 SaO2% (BldA) [Mass fraction] 97 % Jannie Proctor DO Work Phone: [facility] 02-09-2025 10:01-0400 Systolic blood pressure 136 mm[Hg] Jannie Proctor DO Work Phone: [facility] 02-04-2025 10:33-0400 Body height 165.1 cm Amy Hollaender MAINTENANCE DIRECTOR.CALENDER WORKER HELPER Work Phone: [facility] 02-04-2025 10:33-0400 Body mass index (BMI) [Ratio] 28.79 kg/m2 Amy Hollaender MAINTENANCE DIRECTOR.CALENDER WORKER HELPER Work Phone: [facility] 02-04-2025 10:33-0400 Body weight 78.47 kg Amy Hollaender MAINTENANCE DIRECTOR.CALENDER WORKER HELPER Work Phone: [facility] 02-04-2025 10:33-0400 Diastolic blood pressure 73 mm[Hg] Amy Hollaender MAINTENANCE DIRECTOR.CALENDER WORKER HELPER Work Phone: [facility] 02-04-2025 10:33-0400 Heart rate 79 /min Amy Hollaender MAINTENANCE DIRECTOR.CALENDER WORKER HELPER Work Phone: [facility] 02-04-2025 10:33-0400 Systolic blood pressure 99 mm[Hg] Amy Hollaender MAINTENANCE DIRECTOR.CALENDER WORKER HELPER Work Phone: [facility] 01-26-2025 15:35-0400 Diastolic blood pressure 60 mm[Hg] Tu Canela MD Work Phone: [facility] 01-26-2025 15:35-0400 Systolic blood pressure 138 mm[Hg] Tu Canela MD Work Phone: [facility] 01-26-2025 14:52-0400 Body mass index (BMI) [Ratio] 28.79 kg/m2 Tu Canela MD Work Phone: [facility] 01-26-2025 14:52-0400 Body weight 78.47 kg Tu Canela MD Work Phone: [facility] 01-26-2025 14:52-0400 Heart rate 73 /min Tu Canela MD Work Phone: [facility] 01-26-2025 14:52-0400 SaO2% (BldA) [Mass fraction] 96 % Tu Canela MD Work Phone: [facility] 12-17-2024 11:04-0500 Diastolic blood pressure 84 mm[Hg] Rosie Haagen MAINTENANCE DIRECTOR.CALENDER WORKER HELPER Work Phone: [facility] Comment on above: BP recheck 12-17-2024 11:04-0500 Systolic blood pressure 145 mm[Hg] Rosie Haagen MAINTENANCE DIRECTOR.CALENDER WORKER HELPER Work Phone: [facility] Comment on above: BP recheck 12-17-2024 10:16-0500 Heart rate 82 /min Rosie Haagen MAINTENANCE DIRECTOR.CALENDER WORKER HELPER Work Phone: [facility] 12-17-2024 10:16-0500 Respiratory rate 16 /min Rosie Haagen MAINTENANCE DIRECTOR.CALENDER WORKER HELPER Work Phone: [facility] 12-17-2024 10:16-0500 SaO2% (BldA) [Mass fraction] 98 % Rosie Haagen MAINTENANCE DIRECTOR.CALENDER WORKER HELPER Work Phone: [facility] 11-03-2024 13:54-0500 Body height 165.1 cm Aylin Paz MAINTENANCE DIRECTOR.CALENDER WORKER HELPER Work Phone: [facility] 11-03-2024 13:54-0500 Body mass index (BMI) [Ratio] 27.57 kg/m2 Aylin [place] MAINTENANCE DIRECTOR.CALENDER WORKER HELPER Work Phone: [facility] 11-03-2024 13:54-0500 Body temperature 96.69 [degF] Aylin [place] MAINTENANCE DIRECTOR.CALENDER WORKER HELPER Work Phone: [facility] 11-03-2024 13:54-0500 Body weight 75.15 kg Aylin Brandi MAINTENANCE DIRECTOR.CALENDER WORKER HELPER Work Phone: [facility] 11-03-2024 13:54-0500 Diastolic blood pressure 76 mm[Hg] Aylin [place] MAINTENANCE DIRECTOR.CALENDER WORKER HELPER Work Phone: [facility] 11-03-2024 13:54-0500 Heart rate 81 /min Aylin Brandi MAINTENANCE DIRECTOR.CALENDER WORKER HELPER Work Phone: [facility] 11-03-2024 13:54-0500 Systolic blood pressure 146 mm[Hg] Aylin Brandi MAINTENANCE DIRECTOR.CALENDER WORKER HELPER Work Phone: [facility] 10-31-2024 11:12-0500 Diastolic blood pressure 79 mm[Hg] Rosie Syed MAINTENANCE DIRECTOR.CALENDER WORKER HELPER Work Phone: [facility] Comment on above: STEPH BP 10-31-2024 11:12-0500 Heart rate 73 /min Rosie Syed MAINTENANCE DIRECTOR.CALENDER WORKER HELPER Work Phone: [facility] 10-31-2024 11:12-0500 Systolic blood pressure 159 mm[Hg] Rosie Haagen MAINTENANCE DIRECTOR.CALENDER WORKER HELPER Work Phone: [facility] Comment on above: STEPH BP 10-31-2024 10:23-0500 Respiratory rate 16 /min Rosie Syed MAINTENANCE DIRECTOR.CALENDER WORKER HELPER Work Phone: [facility] 10-31-2024 10:23-0500 SaO2% (BldA) [Mass fraction] 98 % Rosie Syed MAINTENANCE DIRECTOR.CALENDER WORKER HELPER Work Phone: [facility] 09-17-2024 09:58-0500 Body mass index (BMI) [Ratio] 26.79 kg/m2 Rosie Haagen MAINTENANCE DIRECTOR.CALENDER WORKER HELPER Work Phone: [facility] 09-17-2024 09:58-0500 Body weight 73.03 kg Rosie Haagen MAINTENANCE DIRECTOR.CALENDER WORKER HELPER Work Phone: [facility] 09-17-2024 09:58-0500 Diastolic blood pressure 70 mm[Hg] Rosie Haagen MAINTENANCE DIRECTOR.CALENDER WORKER HELPER Work Phone: [facility] 09-17-2024 09:58-0500 Heart rate 90 /min Rosie Haagen MAINTENANCE DIRECTOR.CALENDER WORKER HELPER Work Phone: [facility] 09-17-2024 09:58-0500 Respiratory rate 16 /min Rosie Haagen MAINTENANCE DIRECTOR.CALENDER WORKER HELPER Work Phone: [facility] 09-17-2024 09:58-0500 SaO2% (BldA) [Mass fraction] 92 % Rosie Haagen MAINTENANCE DIRECTOR.CALENDER WORKER HELPER Work Phone: [facility] 09-17-2024 09:58-0500 Systolic blood pressure 112 mm[Hg] Rosie Haagen MAINTENANCE DIRECTOR.CALENDER WORKER HELPER Work Phone: [facility] 08-12-2024 10:38-0400 Diastolic blood pressure 84 mm[Hg] Rosie Haagen MAINTENANCE DIRECTOR.CALENDER WORKER HELPER Work Phone: [facility] 08-12-2024 10:38-0400 Heart rate 74 /min Rosie Haagen MAINTENANCE DIRECTOR.CALENDER WORKER HELPER Work Phone: [facility] 08-12-2024 10:38-0400 Respiratory rate 16 /min Rosie Haagen MAINTENANCE DIRECTOR.CALENDER WORKER HELPER Work Phone: [facility] 08-12-2024 10:38-0400 SaO2% (BldA) [Mass fraction] 96 % Rosie Haagen MAINTENANCE DIRECTOR.CALENDER WORKER HELPER Work Phone: [facility] 08-12-2024 10:38-0400 Systolic blood pressure 138 mm[Hg] Rosie Haagen MAINTENANCE DIRECTOR.CALENDER WORKER HELPER Work Phone: [facility] 07-09-2024 12:52-0400 Diastolic blood pressure 78 mm[Hg] Rosie Haagen MAINTENANCE DIRECTOR.CALENDER WORKER HELPER Work Phone: [facility] 07-09-2024 12:52-0400 Heart rate 79 /min Rosie Haagen MAINTENANCE DIRECTOR.CALENDER WORKER HELPER Work Phone: [facility] 07-09-2024 12:52-0400 Respiratory rate 16 /min Rosie Haagen MAINTENANCE DIRECTOR.CALENDER WORKER HELPER Work Phone: [facility] 07-09-2024 12:52-0400 SaO2% (BldA) [Mass fraction] 94 % Rosie Haagen MAINTENANCE DIRECTOR.CALENDER WORKER HELPER Work Phone: [facility] 07-09-2024 12:52-0400 Systolic blood pressure 142 mm[Hg] Rosie Haagen MAINTENANCE DIRECTOR.CALENDER WORKER HELPER Work Phone: [facility] 07-01-2024 11:19-0400 Diastolic blood pressure 84 mm[Hg] Rosie Haagen MAINTENANCE DIRECTOR.CALENDER WORKER HELPER Work Phone: [facility] Comment on above: [facility] 07-01-2024 11:19-0400 Heart rate 86 /min Rosie Haagen MAINTENANCE DIRECTOR.CALENDER WORKER HELPER Work Phone: [facility] 07-01-2024 11:19-0400 Systolic blood pressure 143 mm[Hg] Rosie Haagen MAINTENANCE DIRECTOR.CALENDER WORKER HELPER Work Phone: [facility] Comment on above: [facility] 07-01-2024 11:04-0400 Respiratory rate 16 /min Rosie Haagen MAINTENANCE DIRECTOR.CALENDER WORKER HELPER Work Phone: [facility] 07-01-2024 11:04-0400 SaO2% (BldA) [Mass fraction] 94 % Rosie Haagen MAINTENANCE DIRECTOR.CALENDER WORKER HELPER Work Phone: [facility] 05-07-2024 09:54-0400 Diastolic blood pressure 74 mm[Hg] Nevin Fajardo MAINTENANCE DIRECTOR.CALENDER WORKER HELPER Work Phone: [facility] 05-07-2024 09:54-0400 Systolic blood pressure 166 mm[Hg] Nevin Fajardo MAINTENANCE DIRECTOR.CALENDER WORKER HELPER Work Phone: [facility] 05-07-2024 09:43-0400 Body mass index (BMI) [Ratio] 26.69 kg/m2 Nevin Tana MAINTENANCE DIRECTOR.CALENDER WORKER HELPER Work Phone: [facility] 05-07-2024 09:43-0400 Body temperature 98.71 [degF] [place] Fajardo MAINTENANCE DIRECTOR.CALENDER WORKER HELPER Work Phone: [facility] 05-07-2024 09:43-0400 Body weight 72.76 kg Nevin Tana MAINTENANCE DIRECTOR.CALENDER WORKER HELPER Work Phone: [facility] 05-07-2024 09:43-0400 Heart rate 68 /min Nevin Fajardo MAINTENANCE DIRECTOR.CALENDER WORKER HELPER Work Phone: [facility] 03-19-2024 11:19-0400 Diastolic blood pressure 78 mm[Hg] Rosie Syed MAINTENANCE DIRECTOR.CALENDER WORKER HELPER Work Phone: [facility] Comment on above: [facility] BP 03-19-2024 11:19-0400 Heart rate 76 /min Rosie Syed MAINTENANCE DIRECTOR.CALENDER WORKER HELPER Work Phone: [facility] 03-19-2024 11:19-0400 Systolic blood pressure 135 mm[Hg] Rosie Syed MAINTENANCE DIRECTOR.CALENDER WORKER HELPER Work Phone: [facility] Comment on above: [facility] 03-19-2024 10:29-0400 Body mass index (BMI) [Ratio] 26.13 kg/m2 Rosie Syed MAINTENANCE DIRECTOR.CALENDER WORKER HELPER Work Phone: [facility] 03-19-2024 10:29-0400 Body weight 71.22 kg Rosie Syed MAINTENANCE DIRECTOR.CALENDER WORKER HELPER Work Phone: [facility] 03-19-2024 10:29-0400 Respiratory rate 16 /min Rosie Syed MAINTENANCE DIRECTOR.CALENDER WORKER HELPER Work Phone: [facility] 03-19-2024 10:29-0400 SaO2% (BldA) [Mass fraction] 95 % Rosie Syed MAINTENANCE DIRECTOR.CALENDER WORKER HELPER Work Phone: [facility] 11-13-2023 22:38-0500 Diastolic blood pressure 91 mm[Hg] [facility] 11-13-2023 22:38-0500 Heart rate 81 /min [facility] 11-13-2023 22:38-0500 Respiratory rate 18 /min [facility] 11-13-2023 22:38-0500 SaO2% (BldA) [Mass fraction] 99 % [facility] 11-13-2023 22:38-0500 Systolic blood pressure 166 mm[Hg] [facility] 11-13-2023 21:00-0500 Body temperature 97.4 [degF] [facility] 11-13-2023 19:42-0500 Body height 167.64 cm [facility] 09-25-2023 10:51-0500 Diastolic blood pressure 84 mm[Hg] Nevin Fajardo MAINTENANCE DIRECTOR.CALENDER WORKER HELPER Work Phone: [facility] 09-25-2023 10:51-0500 Systolic blood pressure 146 mm[Hg] Nevin Fajardo MAINTENANCE DIRECTOR.CALENDER WORKER HELPER Work Phone: [facility] 09-25-2023 10:13-0500 Body height 165.1 cm [place] Fajardo MAINTENANCE DIRECTOR.CALENDER WORKER HELPER Work Phone: [facility] 09-25-2023 10:13-0500 Body temperature 97.2 [degF] Nevin Fajardo MAINTENANCE DIRECTOR.CALENDER WORKER HELPER Work Phone: [facility] 09-25-2023 10:13-0500 Body weight 73.03 kg Nevin Fajardo MAINTENANCE DIRECTOR.CALENDER WORKER HELPER Work Phone: [facility] 09-25-2023 10:13-0500 Heart rate 80 /min Nevin Fajardo MAINTENANCE DIRECTOR.CALENDER WORKER HELPER Work Phone: [facility] 07-31-2023 09:52-0400 Body weight 70.31 kg KAROL Brown PA-C Work Phone: [facility] 07-31-2023 09:52-0400 Diastolic blood pressure 70 mm[Hg] KAROL Brown PA-C Work Phone: [facility] 07-31-2023 09:52-0400 Heart rate 84 /min NA Brown PA-C Work Phone: [facility] 07-31-2023 09:52-0400 Respiratory rate 16 /min NA Brown PA-C Work Phone: [facility] 07-31-2023 09:52-0400 SaO2% (BldA) [Mass fraction] 95 % NA Brown PA-C Work Phone: [facility] 07-31-2023 09:52-0400 Systolic blood pressure 132 mm[Hg] NA Brown PA-C Work Phone: [facility] 07-10-2023 11:04-0400 Diastolic blood pressure 79 mm[Hg] Jannie Proctor DO Work Phone: [facility] 07-10-2023 11:04-0400 Heart rate 80 /min Jannie Proctor DO Work Phone: [facility] 07-10-2023 11:04-0400 SaO2% (BldA) [Mass fraction] 97 % Jannie Proctor DO Work Phone: [facility] 07-10-2023 11:04-0400 Systolic blood pressure 144 mm[Hg] Jannie Proctor DO Work Phone: [facility] 07-03-2023 10:07-0400 Diastolic blood pressure 86 mm[Hg] Rosie Haagen MAINTENANCE DIRECTOR.CALENDER WORKER HELPER Work Phone: [facility] 07-03-2023 10:07-0400 Heart rate 73 /min Rosie Haagen MAINTENANCE DIRECTOR.CALENDER WORKER HELPER Work Phone: [facility] 07-03-2023 10:07-0400 Systolic blood pressure 152 mm[Hg] Rosie Haagen MAINTENANCE DIRECTOR.CALENDER WORKER HELPER Work Phone: [facility] 07-03-2023 09:33-0400 Respiratory rate 16 /min Rosie Haagen MAINTENANCE DIRECTOR.CALENDER WORKER HELPER Work Phone: [facility] 07-03-2023 09:33-0400 SaO2% (BldA) [Mass fraction] 97 % Rosie Haagen MAINTENANCE DIRECTOR.CALENDER WORKER HELPER Work Phone: [facility] 05-29-2023 10:27-0400 Body height 152.4 cm Fredi Pierce MD Work Phone: [facility] 05-29-2023 10:27-0400 Body temperature 97.3 [degF] Fredi Pierce MD Work Phone: [facility] 05-29-2023 10:27-0400 Body weight 70.58 kg Fredi Pierce MD Work Phone: [facility] 05-29-2023 10:27-0400 Diastolic blood pressure 88 mm[Hg] Fredi Pierce MD Work Phone: [facility] 05-29-2023 10:27-0400 Heart rate 96 /min Fredi Pierce MD Work Phone: [facility] 05-29-2023 10:27-0400 SaO2% (BldA) [Mass fraction] 99 % Fredi Pierce MD Work Phone: [facility] 05-29-2023 10:27-0400 Systolic blood pressure 136 mm[Hg] Fredi Pierce MD Work Phone: [facility] 05-29-2023 09:29-0400 Diastolic blood pressure 86 mm[Hg] Rosie Haagen MAINTENANCE DIRECTOR.CALENDER WORKER HELPER Work Phone: [facility] 05-29-2023 09:29-0400 Heart rate 84 /min Rosie Haagen MAINTENANCE DIRECTOR.CALENDER WORKER HELPER Work Phone: [facility] 05-29-2023 09:29-0400 Systolic blood pressure 157 mm[Hg] Rosie Haagen MAINTENANCE DIRECTOR.CALENDER WORKER HELPER Work Phone: [facility] 05-29-2023 09:16-0400 Respiratory rate 16 /min Rosie Haagen MAINTENANCE DIRECTOR.CALENDER WORKER HELPER Work Phone: [facility] 05-29-2023 09:16-0400 SaO2% (BldA) [Mass fraction] 97 % Rosie Haagen MAINTENANCE DIRECTOR.CALENDER WORKER HELPER Work Phone: [facility] 05-08-2023 13:05-0400 Diastolic blood pressure 91 mm[Hg] [facility] Work Phone: [facility] 05-08-2023 13:05-0400 Systolic blood pressure 190 mm[Hg] [facility] Work Phone: [facility] 05-08-2023 13:04-0400 Body temperature 97.39 [degF] [facility] Work Phone: [facility] 05-08-2023 13:04-0400 Heart rate 70 /min [facility] Work Phone: [facility] 05-08-2023 13:04-0400 SaO2% (BldA) [Mass fraction] 96 % [facility] Work Phone: [facility] 05-02-2023 09:56-0400 Diastolic blood pressure 83 mm[Hg] Rosie Haagen MAINTENANCE DIRECTOR.CALENDER WORKER HELPER Work Phone: [facility] 05-02-2023 09:56-0400 Heart rate 68 /min Rosei Haagen MAINTENANCE DIRECTOR.CALENDER WORKER HELPER Work Phone: [facility] 05-02-2023 09:56-0400 Systolic blood pressure 174 mm[Hg] Rosie Ramosagen MAINTENANCE DIRECTOR.CALENDER WORKER HELPER Work Phone: [facility] 05-02-2023 09:45-0400 Respiratory rate 16 /min Rosie Ramosagen MAINTENANCE DIRECTOR.CALENDER WORKER HELPER Work Phone: [facility] 05-02-2023 09:45-0400 SaO2% (BldA) [Mass fraction] 96 % Rosie Syed MAINTENANCE DIRECTOR.CALENDER WORKER HELPER Work Phone: [facility] 03-22-2023 14:10-0400 Body temperature 99.39 [degF] Nevin Fajardo MAINTENANCE DIRECTOR.CALENDER WORKER HELPER Work Phone: [facility] 03-22-2023 14:10-0400 Body weight 67.81 kg Nevin Fajardo MAINTENANCE DIRECTOR.CALENDER WORKER HELPER Work Phone: [facility] 03-22-2023 14:10-0400 Diastolic blood pressure 98 mm[Hg] Nevin Sellersenter MAINTENANCE DIRECTOR.CALENDER WORKER HELPER Work Phone: [facility] 03-22-2023 14:10-0400 Heart rate 89 /min Nevin Sellersenter MAINTENANCE DIRECTOR.CALENDER WORKER HELPER Work Phone: [facility] 03-22-2023 14:10-0400 SaO2% (BldA) [Mass fraction] 95 % Nevin Sellersenter MAINTENANCE DIRECTOR.CALENDER WORKER HELPER Work Phone: [facility] 03-22-2023 14:10-0400 Systolic blood pressure 188 mm[Hg] Nevin Sellersenter MAINTENANCE DIRECTOR.CALENDER WORKER HELPER Work Phone: [facility] 03-13-2023 10:35-0400 Body height 166.4 cm Fredi Pierce MD Work Phone: [facility] 03-13-2023 10:35-0400 Body temperature 97.11 [degF] Fredi Pierce MD Work Phone: [facility] 03-13-2023 10:35-0400 Body weight 68.58 kg Fredi Pierce MD Work Phone: [facility] 03-13-2023 10:35-0400 Diastolic blood pressure 86 mm[Hg] Fredi Pierce MD Work Phone: [facility] 03-13-2023 10:35-0400 Heart rate 79 /min Fredi Pierce MD Work Phone: [facility] 03-13-2023 10:35-0400 SaO2% (BldA) [Mass fraction] 98 % Fredi Pierce MD Work Phone: [facility] 03-13-2023 10:35-0400 Systolic blood pressure 140 mm[Hg] Fredi Pierce MD Work Phone: [facility] 03-02-2023 10:07-0400 Body weight 68.04 kg Tu Canela MD Work Phone: [facility] 03-02-2023 10:07-0400 Diastolic blood pressure 102 mm[Hg] Tu Canela MD Work Phone: [facility] 03-02-2023 10:07-0400 Heart rate 63 /min Tu Canela MD Work Phone: [facility] 03-02-2023 10:07-0400 SaO2% (BldA) [Mass fraction] 99 % Tu Canela MD Work Phone: [facility] 03-02-2023 10:07-0400 Systolic blood pressure 162 mm[Hg] Tu Canela MD Work Phone: [facility] 02-13-2023 09:44-0400 Diastolic blood pressure 86 mm[Hg] Jannie Proctor DO Work Phone: [facility] 02-13-2023 09:44-0400 Heart rate 73 /min Jannie Proctor DO Work Phone: [facility] 02-13-2023 09:44-0400 SaO2% (BldA) [Mass fraction] 99 % Jannie Proctor DO Work Phone: [facility] 02-13-2023 09:44-0400 Systolic blood pressure 170 mm[Hg] Jannie Proctor DO Work Phone: [facility] 01-16-2023 13:15-0500 Diastolic blood pressure 83 mm[Hg] [facility] Work Phone: [facility] 01-16-2023 13:15-0500 Systolic blood pressure 188 mm[Hg] [facility] Work Phone: [facility] 01-16-2023 13:11-0500 Body temperature 98.4 [degF] [facility] Work Phone: [facility] 01-16-2023 13:11-0500 Heart rate 78 /min [facility] Work Phone: [facility] 01-16-2023 13:11-0500 SaO2% (BldA) [Mass fraction] 98 % [facility] Work Phone: [facility] 01-09-2023 13:13-0500 Body height 165.1 cm Jannie Proctor DO Work Phone: [facility] 01-09-2023 13:13-0500 Body weight 67.59 kg Jannie Proctor DO Work Phone: [facility] 01-09-2023 13:13-0500 Diastolic blood pressure 82 mm[Hg] Jannie Proctor DO Work Phone: [facility] 01-09-2023 13:13-0500 Heart rate 77 /min Jannie Proctor DO Work Phone: [facility] 01-09-2023 13:13-0500 SaO2% (BldA) [Mass fraction] 97 % Jannie Proctor DO Work Phone: [facility] 01-09-2023 13:13-0500 Systolic blood pressure 169 mm[Hg] Jannie Proctor DO Work Phone: [facility] 12-19-2022 15:08-0500 Diastolic blood pressure 108 mm[Hg] [facility] Work Phone: [facility] 12-19-2022 15:08-0500 Systolic blood pressure 188 mm[Hg] [facility] Work Phone: [facility] 12-19-2022 14:57-0500 Body temperature 98.6 [degF] [facility] Work Phone: [facility] 12-19-2022 14:57-0500 Heart rate 90 /min [facility] Work Phone: [facility] 12-19-2022 14:57-0500 Respiratory rate 18 /min [facility] Work Phone: [facility] 12-19-2022 14:57-0500 SaO2% (BldA) [Mass fraction] 98 % [facility] Work Phone: [facility] 07-25-2022 13:02-0400 Diastolic blood pressure 87 mm[Hg] Mi Nurse Work Phone: [facility] 07-25-2022 13:02-0400 Heart rate 84 /min Mi Nurse Work Phone: [facility] 07-25-2022 13:02-0400 Systolic blood pressure 168 mm[Hg] Mi Nurse Work Phone: [facility] 06-14-2022 09:09-0400 Body height 165.1 cm Tu Canela MD Work Phone: [facility] 06-14-2022 09:09-0400 Body weight 69.04 kg Tu Canela MD Work Phone: [facility] 06-14-2022 09:09-0400 Diastolic blood pressure 88 mm[Hg] Tu Canela MD Work Phone: [facility] 06-14-2022 09:09-0400 Heart rate 79 /min Tu Canela MD Work Phone: [facility] 06-14-2022 09:09-0400 SaO2% (BldA) [Mass fraction] 96 % Tu Canela MD Work Phone: [facility] 06-14-2022 09:09-0400 Systolic blood pressure 180 mm[Hg] Tu Canela MD Work Phone: [facility] 06-09-2022 10:26-0400 Diastolic blood pressure 90 mm[Hg] Nevin Fajardo MAINTENANCE DIRECTOR.CALENDER WORKER HELPER Work Phone: [facility] 06-09-2022 10:26-0400 Systolic blood pressure 154 mm[Hg] [place] Fajardo MAINTENANCE DIRECTOR.CALENDER WORKER HELPER Work Phone: [facility] 06-09-2022 09:55-0400 Body temperature 97.81 [degF] Nevin Fajardo MAINTENANCE DIRECTOR.CALENDER WORKER HELPER Work Phone: [facility] 06-09-2022 09:55-0400 Body weight 70.31 kg [place] Fajardo MAINTENANCE DIRECTOR.CALENDER WORKER HELPER Work Phone: [facility] 06-09-2022 09:55-0400 Heart rate 89 /min [place] Fajardo MAINTENANCE DIRECTOR.CALENDER WORKER HELPER Work Phone: [facility] 06-07-2022 14:02-0400 Body weight 69.85 kg Tu Canela MD Work Phone: [facility] 06-07-2022 14:02-0400 Diastolic blood pressure 92 mm[Hg] Tu Canela MD Work Phone: [facility] 06-07-2022 14:02-0400 Heart rate 88 /min Tu Canela MD Work Phone: [facility] 06-07-2022 14:02-0400 Systolic blood pressure 152 mm[Hg] Tu Canela MD Work Phone: [facility] 05-30-2022 07:37-0400 Body temperature 97.3 [degF] Dr. Tu Canela Work Phone: [facility] Work Phone: 05-30-2022 07:37-0400 Diastolic blood pressure 75 mm[Hg] Dr. Tu Canela Work Phone: [facility] Work Phone: 05-30-2022 07:37-0400 Heart rate 65 /min Dr. Tu Canela Work Phone: [facility] Work Phone: 05-30-2022 07:37-0400 Respiratory rate 14 /min Dr. Tu Canela Work Phone: [facility] Work Phone: 05-30-2022 07:37-0400 SaO2% (BldA) [Mass fraction] 98 % Dr. Tu Canela Work Phone: [facility] Work Phone: 05-30-2022 07:37-0400 Systolic blood pressure 156 mm[Hg] Dr. Tu Canela Work Phone: [facility] Work Phone: 05-30-2022 05:54-0400 Body height 167.[address] Tu Canela Work Phone: [facility] Work Phone: 05-30-2022 05:54-0400 Body mass index (BMI) [Ratio] 24.5 kg/m2 Dr. Tu Canela Work Phone: [facility] Work Phone: 05-30-2022 05:54-0400 Body weight 68.[address] Tu Canela Work Phone: [facility] Work Phone: Encounters Encounter Date Encounter Type Care Provider Facility Start: 06-11-2025 End: 06-11-2025 ambulatory [facility] Facility:[facility] Start: 06-04-2025 End: 06-04-2025 Patient encounter procedure Jannie Proctor DO Work Phone: V[facility] Surgery Comment on above: Symptomatic varicose veins of both lower extremities (Primary Dx) Start: 06-04-2025 End: 06-04-2025 [facility] Facility:[facility] Start: 05-27-2025 End: 05-27-2025 Telephone encounter Jannie Proctor DO Work Phone: [facility] Surgery Comment on above: Radiology Pre Proced ure Instructions Start: 05-19-2025 End: 05-26-2025 Telephone encounter Jannie Proctor DO Work Phone: [facility] Comment on above: Appointment Start: 05-13-2025 End: 05-13-2025 Follow-up encounter Nevin Fajardo APRN.CNP Work Phone: Hematology/Oncology Start: 05-11-2025 ambulatory NEVIN FAJARDO Facilit y:[facility] Start: 05-11-2025 End: 05-11-2025 Subsequent hospital visit by physician Screen Mammo [facility] Wstr Mammogram Start: 04-29-2025 End: 04-29-2025 Office outpatient visit 25 minutes Rosie Syed APRN.CNP Work Phone: [facility] Comment on above: Essential (primary) hypertension (Primary Dx); Chronic pain syndrome; Chronic right shoulder pain; Hyperlipidemia, unspecified hyperlipidemia type; Long-term current use of thyroid hormone replacement therapy; Personal history of transient ischemic attack (TIA), and cerebral infarction without residual deficits; Symptomatic varicose veins, unspecified laterality Start: 04-29-2025 End: 04-29-2025 ambulatory ROSIE SYED Facility:[facility] Start: 04-14-2025 End: 04-14-2025 Patient encounter procedure Jnanie Proctor DO Work Phone: Vascular Surgery Comment on above: Symptomatic varicose veins of both lower extremities (Primary Dx) Start: 04-14-2025 End: 04-14-2025 ambulatory TU Abdullahi [place] Facility:[facility] Start: 02-13-2025 End: 02-13-2025 Telephone encounter Amy Fry APRN.CNP Work Phone: [facility] Start: 02-12-2025 End: 04-14-2025 Follow-up encounter Tu Canela MD Work Phone: Pulmonology [facility] Start: 02-11-2025 End: 02-11-2025 ambulatory [facility] Facility:[facility] Start: 02-11-2025 End: 02-11-2025 Patient encounter procedure Tu Canela MD Work Phone: [facility] Comment on above: Ischemic stroke (HCC ) (Primary Dx); Anemia, unspecified type; Congestive heart failure, unspecified HF chronicity, unspecified heart failure type (HCC); Hypothyroidism, unspecified type; Primary hypertension; Stage 3a chronic kidney disease (HCC); Chronic pain syndrome; Chronic midline thoracic back pain; SOB (shortness of breath) Start: 02-09-2025 End: 02-09-2025 [facility] TU Fernando [place] Facility:[facility] Start: 02-09-2025 End: 02-09-2025 Patient encounter procedure Jannie Proctor DO Work Phone: Vascular Surgery Comment on above: Symptomatic varicose veins, bilateral (Primary Dx); Venous insufficiency Start: 02-05-2025 End: 02-05-2025 ambulatory [facility] Facility:[facility] Start: 02-05-2025 End: 02-05-2025 Subsequent hospital visit by physician Juanjo [facility] Santy Khoury Work Phone: Radiology Comment on above: Chronic left-sided t horacic back pain [M54.6, G89.29] Start: 02-04-2025 End: 02-04-2025 Telephone encounter Tu Canela MD Work Phone: [facility] Comment on above: Results Start: 02-04-2025 End: 02-04-2025 [facility]ulatory [facility] Start: 02-04-2025 End: 02-04-2025 Patient encounter procedure [...] sustained remission Start: 02-03-2025 End: 02-03-2025 ambulatory [facility] [place] Facility:[facility] Start: 01-29-2025 End: 03-31-2025 Follow-up encounter Tu Canela MD Work Phone: Pulmonology [facility] Start: 01-27-2025 End: 03-29-2025 Follow-up encounter Tu Canela MD Work Phone: [facility] Start: 01-27-2025 End: 01-27-2025 Telephone encounter Tu Canela MD Work Phone: [facility] Comment on above: Results Start: 01-26-2025 End: 01-26-2025 Subsequent hospital visit by physician Xr [facility] Santy Work Phone: Radiology Comment on above: Other cough [R05.8] Start: 01-26-2025 End: 01-26-2025 ambulatory UT [facility] Facility:[facility] Start: 01-26-2025 End: 01-26-2025 Patient encounter procedure Tu Canela MD Work Phone: [facility] Comment on above: Ischemic stroke (HCC ) (Primary Dx); Other cerebral infarction (HCC); Primary hypertension; Venous insufficiency; Hyperlipidemia, unspecified hyperlipidemia type; Stage 3a chronic kidney disease (HCC); Hypothyroidism, unspecified type; Malignant neoplasm of upper-outer quadrant of left breast in female, estrogen receptor positive (HCC); History of breast cancer; Other cough; Weight gain; SOB (shortness of breath) Start: 01-23-2025 ambulatory Ananya Ramoshn Facility:[facility] Start: 01-16-2025 End: 01-16-2025 Refill Tu Canela MD Work Phone: [facility] Comment on above: Refill Request Start: 12-19-2024 End: 12-19-2024 Telephone encounter Rosie Syed APRN.CNP Work Phone: [facility] Comment on above: Results Start: 12-17-2024 End: 12-17-2024 Office outpatient visit 25 minutes Rosie Syed APRN.CNP Work Phone: [facility] Comment on above: Primary hypertension (Primary Dx); History of ischemic stroke; Chronic pain syndrome; Leg swelling; Acute cystitis without hematuria Start: 12-17-2024 End: 12-17-2024 ambulatory TU CANELA Facility:[facility] Start: 12-05-2024 End: 12-05-2024 Telephone encounter Tu Canela MD Work Phone: [facility] Comment on above: [facility] verbal oder n eeded Start: 11-24-2024 End: 11-24-2024 Telephone encounter Rosie Syed APRN.CALENDER WORKER HELPER Work Phone: [facility] [place] Comment on above: Results Start: 11-21-2024 End: 11-21-2024 ambulatory Eliseo Michele RN [facility] [employer] Start: 11-21-2024 End: 11-21-2024 Patient encounter procedure Eliseo Michele RN [employer] Comment on above: Transition Of Care ( 25 Outreach Call - Discharged from [facility] date of 10-27-25) Weekly phone contact (Recurring) for Transitional Care Management Start: 11-19-2024 End: 11-19-2024 [facility] Facility:[facility] Start: 11-19-2024 End: 11-19-2024 Subsequent hospital visit by physician Juanjo [facility] [place] Work Phone: Radiology Comment on above: Low back pain withou t sciatica, unspecified back pain laterality, unspecified chronicity [M54.50] Start: 11-19-2024 End: 11-19-2024 ambulatory TU CANELA Facility:[facility] Start: 11-14-2024 End: 11-14-2024 Patient Outreach Eliseo Michele RN [employer] Comment on above: Transition Of Care ( Day 18 outreach call - patient discharged from [facility] [place] date of 10-27-24) Weekly phone contact (Recurring) for Transitional Care Management Start: 11-13-2024 End: 11-13-2024 Telephone encounter Tu Canela MD Work Phone: [facility] [place] Comment on above: OT Plan of Care Start: 11-11-2024 End: 11-11-2024 ambulatory Eliseo Micheel RN [employer] Start: 11-11-2024 End: 11-11-2024 Telephone follow-up Eliseo Michele RN [employer] Comment on above: Transition Of Care ( Escalation follow up call) High Risk phone contact for Transitional Care Management Start: 11-10-2024 End: 11-10-2024 ambulatory Eliseo Michele RN [employer] Start: 11-10-2024 End: 11-10-2024 Follow-up encounter Sammy NIXONW Primary Care Social Work Comment on above: Need for follow-up b y older adult social work specialist (Primary Dx); Encounter for support and coordination of transition of care Start: 11-10-2024 End: 11-10-2024 Telephone encounter Tu Canela MD Work Phone: [facility] [place] Comment on above: request verbal order Start: 11-10-2024 End: 11-10-2024 Telephone follow-up Eliseo Michele RN [employer] Comment on above: Transition Of Care ( Day 14 follow up phone call - Discharge date [facility] 10/27/24) Weekly phone contact (Recurring) for Transitional Care Management Start: 11-07-2024 End: 11-07-2024 ambulatory Eliseo Michele RN [employer] Start: 11-07-2024 End: 11-11-2024 Telephone encounter Tu Canela MD Work Phone: [facility] Comment on above: Physical Therapy Jailyn n of Care Start: 11-07-2024 End: 11-07-2024 Telephone follow-up Eliseo Michele RN [employer] Comment on above: Transition Of Care ( Day 11 follow up phone call - patient discharged from [facility] [place] on 10-27-24) Weekly phone contact (Recurring) for Transitional Care Management Start: 11-06-2024 End: 11-06-2024 Telephone encounter Tu Canela MD Work Phone: [facility] [place] Comment on above: skilled nurse plan o f care ; Orders Start: 11-03-2024 End: 11-03-2024 ambulatory [facility] Facility:[facility] Start: 11-03-2024 End: 11-03-2024 Patient encounter procedure Aylin Paz MAINTENANCE DIRECTOR.CALENDER WORKER HELPER Work Phone: Neurology [facility] Comment on above: Lacunar stroke (HCC) (Primary Dx); Primary hypertension; Smoking; Hyperlipidemia, unspecified hyperlipidemia type Start: 10-31-2024 End: 10-31-2024 Transitional care manage srvc 14 day discharge Rosie Syed MAINTENANCE DIRECTOR.CALENDER WORKER HELPER Work Phone: [facility] [place] Comment on above: Ischemic stroke (HCC ) (Primary Dx); Primary hypertension; Lung nodules; Tobacco abuse Start: 10-31-2024 End: 10-31-2024 ambulatory TU CANELA Facility:[facility] Start: 10-30-2024 End: 10-31-2024 Telephone encounter Tu Canela MD Work Phone: [employer] Comment on above: Patient Update ([facility] needs additional information faxed) home health calling, PCP to follow patient Start: 10-29-2024 End: 10-29-2024 ambulatory Eliseo Michele RN [employer] Start: 10-29-2024 End: 10-29-2024 Coordination of care plan Sammy Sampson [facility] Primary Care Social Work Comment on above: Encounter for suppor t and coordination of transition of care (Primary Dx) Single phone contact for Transitional Care Management Start: 10-28-2024 End: 10-28-2024 ambulatory Eliseo Michele RN [employer] Start: 10-28-2024 End: 10-28-2024 Coordination of care plan Sammy LIMA Primary Care Social Work Comment on above: Encounter for suppor t and coordination of transition of care (Primary Dx) Transition Of Care ( Initial outreach call- Patient discharged from Main [place] on 10-27-24) Initial phone contact for Transitional Care Management Start: 10-20-2024 End: 10-27-2024 Evaluation and management of inpatient TU Abdullahi [facility] Facility:[facility] Start: 10-19-2024 End: 10-19-2024 Admission to same day surgery center Jose Little MD Work Phone: Neurosurgery Comment on above: Acute left-sided wea kness [R53.1] (Primary Dx) Start: 10-19-2024 End: 10-19-2024 Telemedicine consultation with patient Jose Little MD Work Phone: Neurosurgery Start: 10-19-2024 End: 10-20-2024 Emergency department patient visit TU Fernando [facility] Facility:[facility] Start: 10-14-2024 End: 10-14-2024 Telephone encounter Tu Canela MD Work Phone: [facility] [place] Comment on above: Orders (Handicap Jailyn card/Handicap performance solutions specialist Plate) Start: 09-22-2024 End: 09-22-2024 ambulatory Eliseo Michele RN [employer] Comment on above: CDM (Telephonic Outr each ) Start: 09-18-2024 End: 09-18-2024 Telephone encounter Tu Canela MD Work Phone: [facility] [place] Comment on above: Patient Call Start: 09-17-2024 End: 09-17-2024 ambulatory ROSIE SYED Facility:[facility] Start: 09-17-2024 End: 09-17-2024 Office outpatient visit 25 minutes Rosie Syed APRN.CNP Work Phone: [facility] [place] Comment on above: Primary hypertension (Primary Dx); Leg swelling; Postoperative hypothyroidism; Dry skin Start: 09-17-2024 End: 09-17-2024 ambulatory [facility] Start: 09-08-2024 End: 09-08-2024 ambulatory Eliseo Michele manager [employer] [facility] [employer] Comment on above: CDM (Telephonic Outr each ) Start: 09-05-2024 End: 09-05-2024 ambulatory Eliseo Michele [employer] [facility] [employer] Comment on above: CDM (Telephonic Outr each ) Start: 08-25-2024 End: 08-25-2024 Refill Tu Canela MD Work Phone: [facility] Comment on above: Refill Request Start: 08-12-2024 End: 08-12-2024 Office outpatient visit 15 minutes Rosie Syed MAINTENANCE DIRECTOR.CALENDER WORKER HELPER Work Phone: [facility] [place] Comment on above: Primary hypertension (Primary Dx); Need for influenza vaccination; Eustachian tube dysfunction, bilateral Start: 08-12-2024 End: 08-12-2024 [facility] Start: 08-08-2024 End: 08-08-2024 ambulatory Eliseo Michele RN [employer] Comment on above: CDM (Telephonic Outr each ) Start: 07-28-2024 End: 07-28-2024 ambulatory Eliseo Michele RN [employer] Comment on above: CDM (Telephonic Outr each ) Start: 07-25-2024 End: 07-25-2024 ambulatory Eliseo Michele RN [employer] Comment on above: CDM (Telephonic Outr each ) Start: 07-22-2024 End: 07-22-2024 Refill Tu Canela MD Work Phone: [facility] [place] Comment on above: Refill Request Start: 07-09-2024 End: 07-09-2024 Office outpatient visit 15 minutes Rosie Syed MAINTENANCE DIRECTOR.CALENDER WORKER HELPER Work Phone: [facility] [place] Comment on above: Primary hypertension (Primary Dx) Start: 07-09-2024 End: 07-09-2024 [facility] Facility:[facility] Start: 07-04-2024 End: 07-04-2024 ambulatory Tu Canela MD Work Phone: [employer] Comment on above: Allied Health Visit (Medication Adherence Outreach ) Start: 07-03-2024 End: 07-03-2024 ambulatory Eliseo Michele RN [employer] Comment on above: CDM (Telephonic Outr each) Start: 07-01-2024 End: 07-01-2024 Office outpatient visit 25 minutes Rosie Syed APRN.CALENDER WORKER HELPER Work Phone: [facility] [place] Comment on above: Primary hypertension (Primary Dx) Start: 07-01-2024 End: 07-01-2024 ambulatory ROSIE SYED Facility:[facility] Start: 06-21-2024 ambulatory Eliseo Michele RN [facility] Comment on above: CDM (Telephonic Outr each ) Start: 06-20-2024 ambulatory Eliseo Michele RN [facility] Comment on above: CDM (Telephonic Outr each ) Start: 06-16-2024 Refill Tu Canela MD Work Phone: [facility] [place] Comment on above: Refill Request Start: 06-05-2024 ambulatory Zeny Tabares [facility] Start: 06-05-2024 Patient encounter procedure Zeny Tabares MA [facility] [place] Comment on above: Population Health Na vigation Outreach (Samson AWV/HCC and care gaps ) Start: 06-04-2024 ambulatory Iveth Galindo RN Work Phone: [employer] Comment on above: Community Monitoring Outreach Start: 05-26-2024 Telephone encounter Rosie cha APRN.CALENDER WORKER HELPER Work Phone: [facility] [place] Comment on above: Medication Question Start: 05-07-2024 End: 05-07-2024 ambulatory Nevin Fajardo APRN.CALENDER WORKER HELPER Work Phone: Hematology/Oncology Comment on above: Personal history of breast cancer (Primary Dx); Encounter for screening mammogram for high-risk patient Start: 05-07-2024 End: 05-07-2024 Patient encounter procedure Nevin Fajardo APRN.CALENDER WORKER HELPER Work Phone: Hematology/Oncology Start: 05-06-2024 Documentation procedure Mammog neelima Coordinator [facility] Start: 05-06-2024 Letter encounter Mammography Coordinator [facility] Start: 05-06-2024 Telephone encounter Nevin han APRN.CALENDER WORKER HELPER Work Phone: Hematology/Oncology Start: 05-05-2024 End: 05-05-2024 Subsequent hospital visit by physician Screen Mammo [facility]ogram Comment on above: Personal history of breast cancer [Z85.3] Start: 04-30-2024 ambulatory Eliseo Michele RN [facility] Comment on above: CDM (Telephonic Outr each ) Start: 04-02-2024 ambulatory Eliseo Michele RN [facility] Comment on above: CDM (Telephonic Outr each ) Start: 03-24-2024 Telephone encounter Rosie cha APRN.CNP Work Phone: [facility] [place] Comment on above: Results Start: 03-19-2024 End: 03-19-2024 Office outpatient visit 25 minutes Rosie Syed APRN.CALENDER WORKER HELPER Work Phone: [facility] [place] Comment on above: Primary hypertension (Primary Dx); Chronic pain syndrome; Multiple thyroid nodules; Hyperglycemia; Hyperlipidemia, unspecified hyperlipidemia type Start: 03-17-2024 Refill Tu Canela MD Work Phone: [facility] [place] Comment on above: Refill Request Start: 02-20-2024 Refill Tu Canela MD Work Phone: [employer] Comment on above: Refill Request CDM [...] 12-17-2023 Refill Tu Canela MD Work Phone: [facility] Comment on above: Refill Request Start: 11-24-2023 End: 07-11-2024 Telephone encounter Aneta Brown PA-C Work Phone: [facility] Comment on above: Results Start: 11-13-2023 End: 11-13-2023 Emergency department patient visit [facility] Work Phone: Start: 11-06-2023 End: 11-08-2023 ambulatory TU CANELA Facility:[facility] Start: 10-24-2023 ambulatory [...] encounter procedure Nevin Fajardo APRN.CNP Work Phone: [facility] Start: 09-24-2023 ambulatory Eliseo Michele RN Amb [facility] Management Comment on above: CDM (Telephonic Outr each ) Start: 08-17-2023 ambulatory Eliseo Michele RN [facility] Management Comment on above: CDM (Telephonic Outr each ) Start: 07-31-2023 End: 07-31-2023 Patient encounter procedure Aneta Brown PA-C Work Phone: [facility] Comment on above: Encounter for immuni [...] Office outpatient visit 25 minutes Rosie Syed APRN.CALENDER WORKER HELPER Work Phone: [facility] Comment on above: Primary hypertension (Primary [...] Office outpatient visit 25 minutes Rosie Syed APRN.CALENDER WORKER HELPER Work Phone: [facility] Comment on above: Primary hypertension Start: [...] 05-04-2023 Documentation procedure Mammog neelima Coordinator [facility] Start: 05-04-2023 Letter encounter Mammography Coordinator [facility] Start: 05-04-2023 Telephone encounter Nevin han APRN.CNP Work Phone: Hematology/Oncology Comment on above: Results Start: 05-02-2023 End: 05-02-2023 Office outpatient visit 25 minutes Rosie Syed APRN.CALENDER WORKER HELPER Work Phone: [facility] [place] Comment on above: Primary hypertension (Primary Dx) Start: 04-16-2023 ambulatory Guerda Francisco RN Work Phone: [employer] Comment on above: Community Monitoring Outreach (Telephonic Outreach CDM Home Monitoring) Start: 03-22-2023 End: 03-22-2023 ambulatory Nevin Fajardo APRN.CALENDER WORKER HELPER Work Phone: Hematology/Oncology Comment on above: Personal history of breast cancer (Primary Dx); Encounter for screening mammogram for high-risk patient; Stage 3a chronic kidney disease (HCC) Start: 03-22-2023 End: 03-22-2023 Patient encounter procedure Nevin Fajardo APRN.CALENDER WORKER HELPER Work Phone: [place] [facility] Start: 03-19-2023 ambulatory Guerda Francisco RN Work Phone: [employer] Comment on above: Community Monitoring Outreach [...] 02-15-2023 Refill Guerda Francisco RN Work Phone: [employer] Comment on above: Refill Request Community Monitoring Outreach (Telephonic Outreach CDM Home Monitoring) Patient Question (An y lab work needed prioir to OV 02/21/23?) Start: 02-13-2023 End: 02-13-2023 Patient encounter procedure Jannie Proctor DO Work Phone: Vascular Surgery Comment on above: Symptomatic varicose veins of both lower extremities (Primary Dx) Start: 01-18-2023 ambulatory Linette schumacher RN Work Phone: [employer] Comment on above: Community Monitoring Outreach [...] Telephone encounter Tu Canela MD Work Phone: [facility] Comment on above: Results Start: 12-11-2022 End: 12-11-2022 ambulatory [facility] Work Phone: Start: 12-11-2022 End: 12-11-2022 Patient encounter procedure [facility], Specimen Start: 12-05-2022 End: 12-05-2022 ambulatory [facility] Work Phone: Start: 12-05-2022 End: 12-05-2022 Patient encounter procedure [facility], Specimen Start: 11-20-2022 End: 11-20-2022 ambulatory [facility] Work Phone: Start: 11-20-2022 End: 11-20-2022 Patient encounter procedure [facility], Specimen Start: 11-16-2022 Patient Outreach Zenia Wolef mbulatory Care Management Comment on above: Transition Of Care ( TCM Initial Outreach: [facility] 11/15/22, Cellulitis of right lower leg/) Start: 10-03-2022 Telephone encounter Tu Canela MD Work Phone: [facility] [place] Comment on above: FYI-No Action Needed Start: 07-25-2022 Telephone encounter Tu Canela MD Work Phone: [facility] [place] Comment on above: Blood Pressure Start: 07-25-2022 End: 07-25-2022 Nursing evaluation of patient and report Mi Nurse Work Phone: [facility] [place] Comment on above: Primary hypertension (Primary Dx) Start: 07-05-2022 Telephone encounter Jere Ellis MD Work Phone: [facility] [place] Comment on above: Blood Pressure Check ; Appointment Start: 07-01-2022 Telephone encounter Tu Canela MD Work Phone: [facility] [place] Comment on above: Results Start: 06-26-2022 Orders Only Tu Canela MD Work Phone: [facility] [place] Comment on above: Hyponatremia (Primar y Dx) Start: 06-14-2022 End: 06-14-2022 Patient encounter procedure Tu Canela MD Work Phone: [facility] Comment on above: Primary hypertension (Primary Dx); Ectatic aorta (HCC); Fatty liver; Renal cyst; Venous insufficiency Start: 06-09-2022 End: 06-09-2022 ambulatory Nevin Fajardo APRN.CALENDER WORKER HELPER Work Phone: Hematology/Oncology Comment on above: Malignant neoplasm o f upper-outer quadrant of left breast in female, estrogen receptor positive (HCC) (Primary Dx) Start: 06-09-2022 End: 06-09-2022 Patient encounter procedure Nevin Fajardo APRN.CALENDER WORKER HELPER Work Phone: [facility] Start: 06-07-2022 End: 06-07-2022 Patient encounter procedure Tu Canela MD Work Phone: [facility] Comment on above: Left before treatmen t completed (Primary Dx) Start: 05-30-2022 Non-patient / Non-visit Dr. Chey Canela Work Phone: [facility] Start: 05-30-2022 End: 05-30-2022 Admission to same day surgery center Dr. Tu Canela Work Phone: [facility] Start: 05-17-2022 Telephone encounter Tu Canela MD Work Phone: [facility] Comment on above: Results Start: 05-16-2022 End: 05-16-2022 Subsequent hospital visit by physician Ct Prep [facility] Cat Scan Comment on above: Malignant neoplasm o f upper-outer quadrant of left breast in female, estrogen receptor positive (HCC) [C50.412, Z17.0] Start: 05-02-2022 Documentation procedure Mammog neelima Coordinator [facility] Start: 05-02-2022 Letter encounter Mammography Coordinator [facility] Start: 05-02-2022 End: 05-02-2022 Subsequent hospital visit by physician Screen Mammo [facility] Mammogram Comment on above: Malignant neoplasm o f upper-outer quadrant of left breast in female, estrogen receptor positive (HCC) [C50.412, Z17.0] Start: 04-17-2022 End: 04-17-[address] Tu Canela Work Phone: [facility] Start: 04-12-2022 End: 04-12-2022 Patient encounter procedure [facility] Start: 03-16-2022 Telephone encounter Tu Canela MD Work Phone: [facility] [place] Comment on above: Colonoscopy appt Start: 11-30-2021 End: 11-30-2021 Subsequent hospital visit by physician Xr [facility] Work Phone: Radiology Comment on above: Edema, unspecified t ype [R60.9] Procedures Date Procedure Procedure Detail Performing Clinician Start: 12-17-2024 Urnls dip stick/tabl et rgnt auto w/o microscopy Rosie Syed MAINTENANCE DIRECTOR.CALENDER WORKER HELPER Work Phone: Start: 11-13-2023 CT angiography of [...] y bi 2-view breast inc bryan Fajardo MAINTENANCE DIRECTOR.CALENDER WORKER HELPER Work Phone: Start: 11-30-2021 Radex ankle complete minimum 3 views Tu Canela MD Work Phone: Start: 07-30-2018 Adult depression scr eening assessment Tu Canela MD Work Phone: Investigation of transfusion reaction Investigation of transfusion reaction Investigation of transfusion reaction Microbial culture, routine Microbial culture, routine Microbial culture, routine Plan of Treatment Date Care Activity Detail Author Start: 02-04-2028 Diabetes Screening Diabetes Screening [facility] Start: 01-27-2028 Diabetes Screening Diabetes Screening [facility] Start: 10-24-2027 Diabetes Screening Diabetes Screening [facility] Start: 10-19-2027 Diabetes Screening Diabetes Screening [facility] Start: 09-17-2027 Diabetes Screening Diabetes Screening [facility] Start: 03-19-2027 Diabetes Screening Diabetes Screening [facility] Start: 11-07-2026 Diabetes Screening Diabetes Screening [facility] Start: 03-02-2026 DIABETES SCREEN DIABETES SCREEN [facility] Start: 03-02-2026 Diabetes Screening Diabetes Screening [facility] Start: 02-27-2026 DIABETES SCREEN DIABETES SCREEN [facility] Start: 11-13-2025 DIABETES SCREEN DIABETES SCREEN [facility] Start: 08-06-2025 End: 08-06-2025 Patient encounter procedure 08/06/2025 10:30 AM EDT Office Visit Cerebrovascular [address] [place], [place] [id number] Amy Fry, MAINTENANCE DIRECTOR.CALENDER WORKER HELPER [address] [place] [phone] 6 month follow up after XR Thoracic Cerebrovascular Comment on above: 6 month follow up after XR Thoracic Start: 07-29-2025 End: 07-29-2025 Patient encounter procedure 07/29/2025 10:00 AM EDT Office Visit Family Reynaldo [facility] [address] [place] [address] Rosie Syed, MAINTENANCE DIRECTOR.CALENDER WORKER HELPER [address] [place] [address] 3 mo follow up (40 min per CH) [facility] [place] Comment on above: 3 mo follow up (40 min per CH) Start: 07-25-2025 DIABETES SCREEN DIABETES SCREEN [facility] Start: 07-13-2025 Influenza [facility] Start: 06-19-2025 DIABETES SCREEN DIABETES SCREEN [facility] Start: 06-19-2025 End: 06-19-2025 Patient encounter procedure Cardiology Comment on above: Dx: Congestive heart failure, unspecifie d HF chronicity, unspecified heart failure type (HCC) [I50.9] 1st attempt LMOVM 05/06 [place] Dx: Congestive heart failure, unspecified HF chronicity, unspecified heart failure type (HCC) [I50.9] Start: 06-14-2025 DIABETES SCREEN DIABETES SCREEN [facility] Start: 06-11-2025 End: 06-11-2025 Patient encounter procedure 06/11/2025 9:00 AM EDT Office Visit Vasculary Surgery [address] [place] [phone] g Vasculary Surgery Comment on above: g Start: 06-04-2025 End: 06-04-2025 Patient encounter procedure 06/04/2025 11:00 AM EDT Office Visit Vascular Surgery [address] [address] Jannie Proctor, DO [address] [place] [address] EVLT LEFT Vascular Surgery Comment on above: EVLT LEFT Start: 05-16-2025 DIABETES SCREEN DIABETES SCREEN [facility] Start: 05-12-2025 End: 05-12-2025 ambulatory Hematology/Oncology Comment on above: 1 YR OV* / MAMMO DONE 05/06 1 YR OV/MAMM 05/11* Start: 05-08-2025 End: 05-08-2025 ambulatory 05/08/2025 10:00 AM EDT Visit (SP) Office Hematology/Oncology [address] [place] [address] Nevin Fajardo APRN.CALENDER WORKER HELPER [address] [place] [address] 1 YR OV* / MAMMO DONE 05/06 Hematology/Oncology Comment on above: 1 YR OV* / MAMMO DONE 05/06 Start: 05-06-2025 End: 05-06-2025 Patient encounter procedure 05/06/2025 10:10 AM EDT Appointment Mammogram [address] [place] [address] MAMMO Mammogram Comment on above: MAMMO Start: 05-01-2025 End: 11-30-2025 CT Chest WO contrast CT CHEST WO IVCON Radiology Routine Lung nodules Expected: 05/01/2025, Expires: 11/30/2025 [facility] Work Phone: Comment on above: Expected: 05/01/2025, Expires: Start: 04-28-2025 End: 04-28-2025 Patient encounter procedure 04/28/2025 10:20 AM EDT [facility] [address] [place], [place] [address] Rosie Syed APRN.CALENDER WORKER HELPER [address] [place] [address] 3 mo follow up [facility] Comment on above: 3 mo follow up Start: 04-14-2025 End: 04-14-2025 Patient encounter procedure Vasculary Surgery Comment on above: AND FOLLOW UP Start: 03-13-2025 End: 03-13-2025 Patient encounter procedure 03/13/2025 9:20 AM EDT Office Visit [facility] [address] [place] [address] [phone] Ha Amaya PA-C [address] [place] [address] [phone] Dx: 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, G89.29] [facility] Comment on above: Dx: Chronic midline thoracic back pain [ M54.6, G89.29] Start: 03-07-2025 End: 06-06-2025 CBC W Auto Differential panel - Blood COMPLETE BLOOD COUNT AND DIFFERENTIAL Lab Routine Anemia, unspecified type Expected: 03/07/2025, Expires: 06/06/2025 [facility] Work Phone: Comment on above: Expected: 03/07/2025, Expires: Start: 03-07-2025 End: 06-06-2025 Ferritin [Mass/volume] in Serum or Plasma FERRITIN Lab Routine Anemia, unspecified type Expected: 03/07/2025, Expires: 06/06/2025 [facility] Comment on above: Expected: 03/07/2025, Expires: Start: 03-07-2025 End: 06-06-2025 Iron and Iron binding capacity panel - Serum or Plasma IRON AND TIBC Lab Routine Anemia, unspecified type Expected: 03/07/2025, Expires: 06/06/2025 [facility] Comment on above: Expected: 03/07/2025, Expires: Start: 03-07-2025 End: 06-06-2025 RETICULOCYTE COUNT RETICULOCYTE COUNT Lab Routine Anemia, unspecified type Expected: 03/07/2025, Expires: 06/06/2025 [facility] Comment on above: Expected: 03/07/2025, Expires: Start: 02-11-2025 End: 02-11-2025 Patient encounter procedure 02/11/2025 2:00 PM EDT Office Visit [facility] [address] [place], [place] [id number] Tu Canela MD [address] [place], [place] [id number] 2 week f/u [facility] Comment on above: 2 week f/u Start: 02-09-2025 End: 02-09-2025 Patient encounter procedure 02/09/2025 10:00 AM EDT Office Visit Vascular Surgery [address] [address] Jannie Proctor, DO [address] [place] [address] Venous insufficiency [I87.2] Vascular Surgery Comment on above: Venous insufficiency [I87.2] Start: 02-05-2025 End: 02-05-2025 Patient encounter procedure 02/05/2025 10:10 AM EDT Appointment Radiology [address] [place], [place] [address] XRAY Radiology Comment on above: XRAY Start: 02-04-2025 End: 05-06-2025 Lipid 1996 panel - Serum or Plasma LIPID PANEL, FASTING Lab Routine Mixed hyperlipidemia Expected: 02/04/2025, Expires: 05/06/2025 [facility] Work Phone: Comment on above: Expected: 02/04/2025, Expires: Start: 02-04-2025 End: 02-04-2025 Patient encounter procedure 02/04/2025 10:30 AM EDT Office Visit Cerebrovascular [address] [place] [address] Amy Fry APRN.CALENDER WORKER HELPER [address] [place] [address], [place] [address] 3 month follow up Cerebrovascular Comment on above: 3 month follow up Start: 02-03-2025 End: 02-03-2025 ambulatory 02/03/2025 10:15 AM EDT Results Only [facility] Zelaya [facility] Laboratory [address] [place] [address] Dr [facility] Comment on above: Dr Hilton Ingram Start: 01-27-2025 End: 04-28-2025 Basic metabolic 2000 panel - Serum or Plasma BASIC METABOLIC PANEL Lab Routine Anemia, unspecified type Congestive heart failure, unspecified HF chronicity, unspecified heart failure type (HCC) Expected: 01/27/2025, Expires: 04/28/2025 [facility] Work Phone: Comment on above: Expected: 01/27/2025, Expires: Start: 01-27-2025 End: 01-27-2026 CBC W Auto Differential panel - Blood COMPLETE BLOOD COUNT AND DIFFERENTIAL Lab Routine Anemia, unspecified type Congestive heart failure, unspecified HF chronicity, unspecified heart failure type (HCC) Expected: 01/27/2025, Expires: 01/27/2026 [facility] Comment on above: Expected: 01/27/2025, Expires: Start: 01-27-2025 End: 01-27-2026 Cobalamin (Vitamin B12) [Mass/volume] in Serum or Plasma VITAMIN B12 Lab Routine Anemia, unspecified type Congestive heart failure, unspecified HF chronicity, unspecified heart failure type (HCC) Expected: 01/27/2025, Expires: 01/27/2026 [facility] Comment on above: Expected: 01/27/2025, Expires: Start: 01-27-2025 End: 01-27-2026 Ferritin [Mass/volume] in Serum or Plasma FERRITIN Lab Routine Anemia, unspecified type Congestive heart failure, unspecified HF chronicity, unspecified heart failure type (HCC) Expected: 01/27/2025, Expires: 01/27/2026 [facility] Comment on above: Expected: 01/27/2025, Expires: Start: 01-27-2025 End: 01-27-2026 Folate [Mass/volume] in Serum or Plasma FOLATE, SERUM Lab Routine Anemia, unspecified type Congestive heart failure, unspecified HF chronicity, unspecified heart failure type (HCC) Expected: 01/27/2025, Expires: 01/27/2026 [facility] Comment on above: Expected: 01/27/2025, Expires: Start: 01-27-2025 End: 01-27-2026 Hemoglobin.gastrointes tinal.lower [Presence] in Stool by Immunoassay IMMUNOCHEMICAL FECAL OCCULT BLOOD TEST Lab Routine Anemia, unspecified type Congestive heart failure, unspecified HF chronicity, unspecified heart failure type (HCC) Expected: 01/27/2025, Expires: 01/27/2026 [facility] Comment on above: Expected: 01/27/2025, Expires: Start: 01-27-2025 End: 01-27-2026 Iron and Iron binding capacity panel - Serum or Plasma IRON AND TIBC Lab Routine Anemia, unspecified type Congestive heart failure, unspecified HF chronicity, unspecified heart failure type (HCC) Expected: 01/27/2025, Expires: 01/27/2026 [facility] Comment on above: Expected: 01/27/2025, Expires: Start: 01-26-2025 End: 01-26-2025 Patient encounter procedure 01/26/2025 3:00 PM EDT Office Visit [facility] [address] [facility] [place] [address] Tu Canela MD [address] [place] [id number] 4 wk BP check [facility] [place] Comment on above: 4 wk BP check Start: 01-26-2025 End: 04-27-2025 Basic metabolic 2000 panel - Serum or Plasma [facility] Comment on above: Expected: 01/26/2025, Expires: Start: 01-26-2025 End: 04-27-2025 CBC W Auto Differential panel - Blood [facility] Comment on above: Expected: 01/26/2025, Expires: Start: 01-26-2025 End: 04-27-2025 Natriuretic peptide.B prohormone N-Terminal [Mass/volume] in Serum or Plasma [facility] Comment on above: Expected: 01/26/2025, Expires: Start: 01-26-2025 End: 04-27-2025 Thyrotropin [Units/volume] in Serum or Plasma [facility] Comment on above: Expected: 01/26/2025, Expires: Start: 01-14-2025 End: 01-14-2025 Patient encounter procedure 01/14/2025 11:00 AM EST Office Visit Family [facility] [address] [place] [address] Tu Canela MD [address] [place] [address] 4 wk BP check (40min per CH) [facility] Comment on above: 4 wk BP check (40min per CH) Start: 12-17-2024 End: 12-17-2024 Patient encounter procedure 12/17/2024 10:20 AM EST Office Visit Family [facility] [address] [place] [address] Rosie Syed APRN.CALENDER WORKER HELPER [address] [place] [address] 4 wk BP check (40min per CH) [facility] Comment on above: 4 wk BP check (40min per CH) Start: 11-19-2024 End: 11-19-2024 Patient encounter procedure [facility] Comment on above: 3 wk BP check 3 wk BP check (40min per CH) Start: 11-14-2024 End: 11-14-2024 Patient encounter procedure 11/14/2024 10:40 AM EST Office Visit [facility] [address] [place] [address] Rosie Syed, MAINTENANCE DIRECTOR.CALENDER WORKER HELPER [address] [place] [address] 2 week BP check [facility] Comment on above: 2 week BP check Start: 11-12-2024 Advance Directive Discussion Advance Directive Discussion [facility] Start: 11-12-2024 Medicare Advantage Annual Wellness Visit Medicare Advantage Annual Wellness Visit [facility] Start: 11-03-2024 End: 11-03-2024 Patient encounter procedure 11/03/2024 2:00 PM EST Office Visit Neurology [facility] [address] [place] [address] Aylin Paz, CHANDLER.CALENDER WORKER HELPER [address] [place] [address] 0-2 week hospital discharge f/u per russell wilkes 10/21/24 Neurology [facility] Comment on above: 0-2 week hospital discharge f/u per russell wilkes 10/21/24 Start: 11-01-2024 DIABETES SCREEN DIABETES SCREEN [facility] Start: 10-31-2024 End: 10-31-2024 Patient encounter procedure 10/31/2024 10:20 AM EST Office Visit [facility] [place] [address] [facility] [address] Rosie Syed, MAINTENANCE DIRECTOR.CALENDER WORKER HELPER [address] [place] [address] f/u ([facility] dx: CVA) [facility] Comment on above: f/u ([facility] dx: CVA) Start: 10-21-2024 End: 10-21-2024 Patient encounter procedure [facility] Comment on above: 1 month follow up Start: 09-17-2024 End: 09-17-2024 Patient encounter procedure [facility] [place] Comment on above: 6 month follow up Annual Medicare Well ness Start: 08-12-2024 End: 08-12-2024 Patient encounter procedure 08/12/2024 11:00 AM EDT Office Visit [facility] [address] [place] [address] Rosie Syed, MAINTENANCE DIRECTOR.CALENDER WORKER HELPER [address] [place], [place] [id number] 1 week follow up [facility] Comment on above: 1 week follow up Start: 08-06-2024 End: 08-06-2024 Patient encounter procedure 08/06/2024 10:00 AM EDT Office Visit [facility] [address] [place] [address] Rosie Syed, MAINTENANCE DIRECTOR.CALENDER WORKER HELPER [address] [place], [place] [address] 1 week follow up [facility] Comment on above: 1 week follow up Start: 07-31-2024 Annual PCP Team Chronic Disease Visit Annual PCP Team Chronic Disease Visit [facility] Start: 07-31-2024 Shingrix Vaccine (2 of 3) Shingrix Vaccine (2 of 3) [facility] Comment on above: Postponed from 10/09/2013 (Insurance Cov erage) Start: 07-31-2024 Urine microalbumin profile DTaP,Tdap,Td Vaccine (2 - Tdap) [facility] Comment on above: Postponed from 09/03/2022 (Insurance Cov erage) Start: 07-13-2024 Influenza [facility] Start: 07-09-2024 End: 07-09-2024 Patient encounter procedure 07/09/2024 1:00 PM EDT Office Visit [facility] [place] [address] [place] [address] Rosie Syed, MAINTENANCE DIRECTOR.CALENDER WORKER HELPER [address] [place] [address] 1 week follow up [facility] Comment on above: 1 week follow up Start: 07-03-2024 ANNUAL PCP TEAM CHRONIC DISEASE VISIT ANNUAL PCP TEAM CHRONIC DISEASE VISIT [facility] Start: 05-29-2024 ANNUAL PCP TEAM CHRONIC DISEASE VISIT ANNUAL PCP TEAM CHRONIC DISEASE VISIT [facility] Start: 05-07-2024 End: 05-07-2024 ambulatory 05/07/2024 10:00 AM EDT Visit (SP) Office Hematology/Oncology [address] [place] [address] Nevin Fajardo APRN.CALENDER WORKER HELPER [address] [place] [address] 7 MO OV/MAMNMN 05/05* Hematology/Oncology Comment on above: 7 MO OV/MAMNMN 05/05* Start: 05-05-2024 End: 05-05-2024 Patient encounter procedure 05/05/2024 10:10 AM EDT Appointment Mammogram [address] [place] [address] Personal history of breast cancer [Z85.3]; Encounter for screening mammogram for high-risk patient [Z12.31] Mammogram Comment on above: Personal history of breast cancer [Z85.3 ]; Encounter for screening mammogram for high-risk patient [Z12.31] Start: 05-02-2024 ANNUAL PCP TEAM CHRONIC DISEASE VISIT ANNUAL PCP TEAM CHRONIC DISEASE VISIT [facility] Start: 04-02-2024 ANNUAL PCP TEAM CHRONIC DISEASE VISIT ANNUAL PCP TEAM CHRONIC DISEASE VISIT [facility] Start: 03-19-2024 End: 06-18-2024 Comprehensive metabolic 2000 panel - Serum or Plasma [facility] Work Phone: Comment on above: Expected: 03/19/2024, Expires: Start: 03-19-2024 End: 06-18-2024 Hemoglobin A1c in Blood [facility] Comment on above: Expected: 03/19/2024, Expires: Start: 03-19-2024 End: 06-18-2024 LIPID PANEL, NONFASTING [facility] Comment on above: Expected: 03/19/2024, Expires: Start: 03-19-2024 End: 06-18-2024 Thyrotropin [Units/volume] in Serum or Plasma [facility] Comment on above: Expected: 03/19/2024, Expires: Start: 03-02-2024 ANNUAL PCP TEAM CHRONIC DISEASE VISIT ANNUAL PCP TEAM CHRONIC DISEASE VISIT [facility] Start: 02-28-2024 HEMOGLOBIN/HEMATOCRIT HEMOGLOBIN/HEMATOCRIT [facility] Start: 02-28-2024 SERUM CREATININE SERUM CREATININE [facility] Start: 01-29-2024 End: 03-30-2024 Comprehensive metabolic 2000 panel - Serum or Plasma COMP METABOLIC PANEL Lab Routine Primary hypertension Expected: 01/29/2024, Expires: 03/30/2024 [facility] Work Phone: Comment on above: Expected: 01/29/2024, Expires: 4 Start: 01-29-2024 End: 03-30-2024 Hemoglobin A1c in Blood HGB A1C Lab Routine Hyperglycemia Expected: 01/29/2024, Expires: 03/30/2024 [facility] Work Phone: Comment on above: Expected: 01/29/2024, Expires: 4 Start: 01-29-2024 End: 03-30-2024 Lipid 1996 panel - Serum or Plasma LIPID PANEL BASIC Lab Routine Hyperlipidemia, unspecified hyperlipidemia type Expected: 01/29/2024, Expires: 03/30/2024 [facility] Work Phone: Comment on above: Expected: 01/29/2024, Expires: 4 Start: 11-13-2023 [facility] Start: 11-13-2023 [facility] Start: 11-13-2023 HEMOGLOBIN/HEMATOCRIT HEMOGLOBIN/HEMATOCRIT [facility] Start: 11-13-2023 SERUM CREATININE SERUM CREATININE [facility] Start: 11-12-2023 Advance Directive Discussion Advance Directive Discussion [facility] Start: 11-12-2023 Behavioral Health Screening Behavioral Health Screening [facility] Start: 11-12-2023 Depression Assessment Depression Assessment [facility] Start: 11-11-2023 Depression Assessment Depression Assessment [facility] Comment on above: Postponed from 11/12/2022 (Declined at t his time) Start: 07-25-2023 SERUM CREATININE SERUM CREATININE [facility] Start: 07-13-2023 Influenza vaccination [facility] Start: 06-19-2023 SERUM CREATININE SERUM CREATININE [facility] Start: 06-14-2023 ANNUAL PCP TEAM CHRONIC DISEASE VISIT ANNUAL PCP TEAM CHRONIC DISEASE VISIT [facility] Start: 06-14-2023 SERUM CREATININE SERUM CREATININE [facility] Start: 06-14-2023 SHINGRIX VACCINE (2 of 3) SHINGRIX VACCINE (2 of 3) [facility] Comment on above: Postponed from 10/09/2013 (Insurance Cov erage) Start: 06-07-2023 ANNUAL PCP TEAM CHRONIC DISEASE VISIT ANNUAL PCP TEAM CHRONIC DISEASE VISIT [facility] Start: 05-16-2023 SERUM CREATININE SERUM CREATININE [facility] Start: 05-10-2023 Adult depression screening assessment DEPRESSION SCREENING [facility] Start: 05-10-2023 ANNUAL PCP TEAM CHRONIC DISEASE VISIT ANNUAL PCP TEAM CHRONIC DISEASE VISIT [facility] Start: 03-05-2023 End: 05-05-2023 Urinalysis complete panel - Urine URINALYSIS, WITH MICROSCOPIC Lab Routine Microscopic hematuria Expected: 03/05/2023, Expires: 05/05/2023 [facility] Work Phone: Comment on above: Expected: 03/05/2023, Expires: 3 Start: 03-02-2023 End: 05-02-2023 Bacteria identified in Urine by Culture [facility] Work Phone: Comment on above: Expected: 03/02/2023, Expires: 3 Start: 02-15-2023 End: 02-16-2024 CBC W Auto Differential panel - Blood CBC + DIFF Lab Routine Primary hypertension Hyperlipidemia, unspecified hyperlipidemia type Postoperative hypothyroidism Expected: 02/15/2023, Expires: 02/16/2024 [facility] Work Phone: Comment on above: Expected: 02/15/2023, Expires: 4 Start: 02-15-2023 End: 02-16-2024 Comprehensive metabolic 2000 panel - Serum or Plasma COMP METABOLIC PANEL Lab Routine Primary hypertension Hyperlipidemia, unspecified hyperlipidemia type Postoperative hypothyroidism Expected: 02/15/2023, Expires: 02/16/2024 [facility] Work Phone: Comment on above: Expected: 02/15/2023, Expires: 4 Start: 02-15-2023 End: 02-16-2024 Lipid 1996 panel - Serum or Plasma LIPID PANEL BASIC Lab Routine Primary hypertension Hyperlipidemia, unspecified hyperlipidemia type Postoperative hypothyroidism Expected: 02/15/2023, Expires: 02/16/2024 [facility] Work Phone: Comment on above: Expected: 02/15/2023, Expires: 4 Start: 02-15-2023 End: 04-17-2023 Thyrotropin [Units/volume] in Serum or Plasma TSH BLD Lab Routine Primary hypertension Hyperlipidemia, unspecified hyperlipidemia type Postoperative hypothyroidism Expected: 02/15/2023, Expires: 04/17/2023 [facility] Work Phone: Comment on above: Expected: 02/15/2023, Expires: 3 Start: 12-15-2022 End: 07-14-2023 US KIDNEY/BLADDER US KIDNEY/BLADDER Radiology Routine Renal cyst Expected: 12/15/2022, Expires: 07/14/2023 [facility] Work Phone: Comment on above: Expected: 12/15/2022, Expires: 3 Start: 12-11-2022 [facility] Start: 11-30-2022 ANNUAL PCP TEAM CHRONIC DISEASE VISIT ANNUAL PCP TEAM CHRONIC DISEASE VISIT [facility] Start: 11-12-2022 ADVANCE DIRECTIVE DISCUSSION ADVANCE DIRECTIVE DISCUSSION [facility] Start: 11-12-2022 DEPRESSION ASSESSMENT DEPRESSION ASSESSMENT [facility] Start: 11-01-2022 HEMOGLOBIN/HEMATOCRIT HEMOGLOBIN/HEMATOCRIT [facility] Start: 11-01-2022 SERUM CREATININE SERUM CREATININE [facility] Start: 09-03-2022 Urine microalbumin profile [facility] Start: 07-13-2022 Influenza vaccination INFLUENZA (#1) [facility] Start: 06-26-2022 End: 08-26-2022 Basic metabolic 2000 panel - Serum or Plasma BASIC METABOLIC PNL Lab Routine Hyponatremia Expected: 06/26/2022, Expires: 08/26/2022 [facility] Work Phone: Comment on above: Expected: 06/26/2022, Expires: 2 Start: 05-30-2022 Patient discharge [facility] Work Phone: Start: 04-05-2022 COVID-19 VACCINE (4 - Booster for Pfizer series) COVID-19 VACCINE (4 - Booster for Pfizer series) [facility] Start: 11-12-2021 ADVANCE DIRECTIVE DISCUSSION ADVANCE DIRECTIVE DISCUSSION [facility] Start: 11-12-2021 DEPRESSION ASSESSMENT DEPRESSION ASSESSMENT [facility] Start: 07-30-2019 Adult depression screening assessment DEPRESSION SCREENING [facility] Start: 2017 RSV Vaccine (1 - 1-dose 75+ series) RSV Vaccine (1 - 1-dose 75+ series) [facility] Start: 10-09-2013 SHINGRIX VACCINE (1 of 2) SHINGRIX VACCINE (1 of 2) [facility] Start: 10-09-2013 SHINGRIX VACCINE (2 of 3) SHINGRIX VACCINE (2 of 3) [facility] Start: 2002 RSV Vaccine (1 - 1-dose 60+ series) RSV Vaccine (1 - 1-dose 60+ series) [facility] Start: 1960 Anxiety Screening Anxiety Screening [facility] Start: 1960 BP CONTROLLED (<130/80) BP CONTROLLED (<130/80) [facility] Start: 1960 Depression Screening Depression Screening [facility] Acid fast bacilli culture [facility] Acid Fast Bacilli Culture Acid Fast Bacilli Culture [facility] Acid Fast Bacilli Smear Acid Fast Bacilli Smear [facility] Bacteria identified in Urine by Culture BACTERIAL CULTURE, URINE Microbiology Routine Acute cystitis without hematuria 12/17/2024 11:26 AM EST [facility] Work Phone: COVID & INFLUENZA A/ B & RSV PCR, ROUTINE COVID & INFLUENZA A/B & RSV PCR, ROUTINE Microbiology Routine Other cough Ordered: 01/26/2025 [facility] Work Phone: Comment on above: Ordered: 01/26/2025 Ct abdomen & pelvis w/contrast material CT ABD/PEL W IVCON Radiology Routine Malignant neoplasm of upper-outer quadrant of left breast in female, estrogen receptor positive (HCC) Abdominal mass of other site Intra-abdominal and pelvic swelling, mass and lump, unspecified site 05/16/2022 3:28 PM EDT [facility] Work Phone: End: 05-11-2025 DBT Breast - bilateral screening [facility] Work Phone: Comment on above: ONCE for 1 Occurrences starting 05/11/20 until 05/11/2025 Fungal Culture Fungal Culture [facility] Hemoglobin.gastroint es tinal.lower [Presence] in Stool by Immunoassay IMMUNOCHEMICAL FECAL OCCULT BLOOD TEST Lab Routine Anemia, unspecified type Ordered: 02/04/2025 [facility] Comment on above: Ordered: 02/04/2025 End: 04-20-2024 TITO SCREENING TITO SCREENING Radiology Routine Personal history of breast cancer Encounter for screening mammogram for high-risk patient 1 Occurrences starting 03/22/2023 until 04/20/2024 [facility] Work Phone: Comment on above: 1 Occurrences starting 03/22/2023 until 04/20/2024 End: 10-24-2024 TITO SCREENING TITO SCREENING Radiology Routine Personal history of breast cancer Encounter for screening mammogram for high-risk patient 1 Occurrences starting 09/25/2023 until 10/24/2024 [facility] Work Phone: Comment on above: 1 Occurrences starting 09/25/2023 until 10/24/2024 MG Breast Screening TITO SCREENIN G Radiology Routine Personal history of breast cancer Encounter for screening mammogram for high-risk patient 05/05/2024 10:59 AM EDT [facility] Work Phone: End: 06-06-2025 MG Breast Screening TITO SCREENING Radiology Routine Personal history of breast cancer Encounter for screening mammogram for high-risk patient 1 Occurrences starting 05/07/2024 until 06/06/2025 [facility] Work Phone: Comment on above: 1 Occurrences starting 05/07/2024 until 06/06/2025 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 [facility] Patient Education Coronavirus Di sease 2019 (COVID-19): Caring for Yourself or Others [facility] Work Phone: Patient referral [facility] Work Phone: End: 01-09-2024 PVR ANK/DAUGHERTY/TOE [facility] PVR ANK/DAUGHERTY/TOE [facility] Vascular Lab Routine Peripheral arterial disease (HCC) 1 Occurrences starting 01/09/2023 until 01/09/2024 [facility] Work Phone: Comment on above: 1 Occurrences starting 01/09/2023 until 01/09/2024 End: 02-09-2026 US Vein - bilateral US VENOUS INCOMPETENCY [facility] Vascular Lab Routine Symptomatic varicose veins, bilateral 1 Occurrences starting 02/09/2025 until 02/09/2026 [facility] Work Phone: Comment on above: 1 Occurrences starting 02/09/2025 until 02/09/2026 End: 01-09-2024 US VENOUS INCOMPETENCY [facility] US VENOUS INCOMPETENCY [facility] Vascular Lab Routine Venous (peripheral) insufficiency 1 Occurrences starting 01/09/2023 until 01/09/2024 [facility] Work Phone: Comment on above: 1 Occurrences starting 01/09/2023 until 01/09/2024 End: 02-25-2026 XR Chest PA and Lateral XR CHEST 2V FRONTAL/LAT Radiology Routine Other cough SOB (shortness of breath) 1 Occurrences starting 01/26/2025 until 02/25/2026 [facility] Comment on above: 1 Occurrences starting 01/26/2025 until 02/25/2026 XR Chest PA and Lateral XR CHEST 2V FRONTAL/LAT Radiology Routine Other cough SOB (shortness of breath) 01/26/2025 4:40 PM EDT [facility] XR Lumbar spine 3 Views XR LUMBAR GENERAL 3V AP/LAT/L5-S1 Radiology Routine Low back pain without sciatica, unspecified back pain laterality, unspecified chronicity 11/19/2024 12:02 PM EST [facility] Work Phone: End: 03-06-2026 XR Thoracic spine AP and Lateral and Swimmers XR THORACIC GENERAL 3V AP/LAT/SWIMMERS Radiology Routine Chronic left-sided thoracic back pain 1 Occurrences starting 02/04/2025 until 03/06/2026 [facility] Comment on above: 1 Occurrences starting 02/04/2025 until 03/06/2026 XR Thoracic spine AP and Lateral and Swimmers XR THORACIC GENERAL 3V AP/LAT/SWIMMERS Radiology Routine Chronic left-sided thoracic back pain 02/05/2025 10:08 AM EDT [facility] Work Phone: [facility] Immunizations Immunization Date Immunization Notes Care Provider [facility] 08-12-2024 influenza, high dose seasonal, preservative-free Rosie Syed MAINTENANCE DIRECTOR.CALENDER WORKER HELPER Work Phone: [facility] 08-12-2024 influenza virus vacc ine, unspecified formulation Nevin Fajardo MAINTENANCE DIRECTOR.CALENDER WORKER HELPER Work Phone: [facility] 07-31-2023 influenza (HD-IIV4) vaccine, age 65+ yr, high dose, quadrivalent, PF (FLUZONE HIGH-DOSE) KAROL Brown PA-C Work Phone: [facility] 07-31-2023 influenza virus vacc ine, unspecified formulation Rosie Syed MAINTENANCE DIRECTOR.CALENDER WORKER HELPER Work Phone: [facility] 10-14-2022 influenza virus vacc ine, unspecified formulation Eliseo Michele RN [facility] 09-05-2021 influenza, high-dose , quadrivalent vaccine (FLUZONE HIGH DOSE QUADRIVALENT) Tu Canela MD Work Phone: [facility] 01-14-2021 COVID-19 vaccine, ag e 12+ yr ([email or web address] [facility]) Tu Canela MD Work Phone: [facility] Work Phone: 12-24-2020 COVID-19 vaccine, ag e 12+ yr ([employer] [facility]) Tu Canela MD Work Phone: [facility] 08-02-2020 influenza, high dose seasonal, preservative-free Tu Canela MD Work Phone: [facility] 08-02-2020 influenza, injectabl e, quadrivalent, preservative free Tu Canela MD Work Phone: [facility] 07-24-2019 influenza, high dose seasonal, preservative-free Tu Canela MD Work Phone: [facility] 07-30-2018 pneumococcal polysaccharide vaccine, 23 valent Tu Canela MD Work Phone: [facility] 07-27-2018 Seasonal trivalent influenza vaccine, adjuvanted, preservative free Tu Canela MD Work Phone: [facility] 07-04-2017 influenza, high dose seasonal, preservative-free Tu Canela MD Work Phone: [facility] 07-04-2017 Seasonal trivalent influenza vaccine, adjuvanted, preservative free Tu Canela MD Work Phone: [facility] 08-04-2016 influenza, high dose seasonal, preservative-free Tu Canela MD Work Phone: [facility] 08-04-2015 influenza, high dose seasonal, preservative-free Tu Canela MD Work Phone: [facility] 07-12-2015 influenza, high dose seasonal, preservative-free Tu Canela MD Work Phone: [facility] 03-04-2015 pneumococcal conjuga te vaccine, 13 valent Tu Canela MD Work Phone: [facility] 12-13-2014 Pneumococcal Vaccine [facility] Work Phone: 12-13-2014 pneumococcal vaccine , unspecified formulation [facility] 09-03-2014 influenza, seasonal, injectable Tu Canela MD Work Phone: [facility] 08-12-2014 Influenza virus vaccine [facility] 08-14-2013 zoster vaccine, live Tu Canela MD Work Phone: [facility] Work Phone: 08-12-2013 influenza virus vacc ine, unspecified formulation Tu Canela MD Work Phone: [facility] 09-03-2012 diphtheria, tetanus toxoids and acellular pertussis vaccine Tu Canela MD Work Phone: [facility] 09-03-2012 influenza virus vacc ine, unspecified formulation Tu Canela MD Work Phone: [facility] 07-08-2011 pneumococcal polysaccharide vaccine, 23 valent Screen Wstr [facility] Work Phone: Payers Date Payer Category Payer Self-pay [id number] 2023 Medicare (Managed Care) [facility] [id number] 2023 Medicare [id number] 2022 Medicare HUMANA MEDICARE HUMANA GOLD PLUS [id number] 2022-Present [phone] [address] [address] [place] [address] [facility] [id number] 2019 Unknown ANTHEM BLUE CROS S AND BLUE SHIELD ANTHEM SPENCERBLUE HMO [id number] 2019-Present [phone] [address] [place] [address] HMO [id number] 2019 Unknown [id number] 2016 Medicaid MEDICAID [facility] MEDICAID [id number] 2016-Present [phone] [address] [place] [address] Medicaid [id number] 2016 Medicaid [id number] 2016 Medicaid [id number] 1999 Medicare [id number] Private Health Insurance [facility]NA [facility] 18 [id number] Unknown [id number] Social History Date Type Detail Facility Start: 10-16-2018 End: 06-04-2025 Tobacco smoking status OHIS Smokes tobacco daily [facility] History of tobacco use Cigarette Smoker C [facility] Start: 10-16-2018 End: 03-22-2023 Cigarettes smoked current (pack per day) - Reported 1 [facility] Start: 10-16-2018 End: 06-04-2025 Tobacco use and exposure Smokeless tobacco non-user [facility] Start: 01-05-2022 End: 06-04-2025 Alcohol intake Current non-drinker of alcohol (finding) [facility] Start: 01-05-2022 End: 07-05-2022 Tobacco Comment Pt has cut back to 1/4 pack daily. [facility] Start: 1940 Sex Assigned At Not on file C [facility] Start: 03-23-2022 End: 11-13-2023 Tobacco smoking status OHIS Unknown if ever smoked [facility] Start: 1940 Sex Assigned At Female [facility] Start: 10-31-2021 End: 07-03-2022 Exposure to SARS-CoV-2 (event) Not sure [facility] Start: 07-05-2022 End: 11-03-2024 Tobacco smoking status NHIS Ex-smoker [facility] Work Phone: History of tobacco use Current smoker [facility] Work Phone: Start: 11-07-2022 History SDOH Financial 4 [facility] Start: 11-07-2022 History SDOH Food Worry 1 [facility] Start: 11-07-2022 History SDOH Transpo rt Med 2 [facility] Start: 03-22-2023 End: 05-11-2023 Tobacco use panel [facility] How hard is it for y ou to pay for the very basics like food, housing, medical care, and heating Not very hard [facility] Adult Depression Screening Assessment 0 [facility] Work Phone: (I/We) worried wheth er (my/our) food would run out before (I/we) got money to buy more. Never true [facility] In the past 12 month s, was there a time when you were not able to pay the mortgage or rent on time? No [facility] Start: 10-05-2017 Tobacco Comment has smoked off & on since she was 22 y/o [facility] Medical Equipment Procedure Code Equipment Code Equipment [...] goals by 11-11-24 (describe interventions done by [facility]) Personal health goal Functional Status Date Assessment Result Facility 10-27-2024 Are you deaf, or do you have serious difficulty hearing No 10/27/2024 3:32 PM Shavonne Patel, HERNESTO No [facility] 10-27-2024 Are you blind, or do you have serious difficulty seeing, even when wearing glasses No 10/27/2024 3:32 PM Shavonne Patel, HERNESTO No [facility] 10-27-2024 Do you have serious difficulty walking or climbing stairs No 10/27/2024 3:32 PM Shavonne Patel, HERNESTO No [facility] 10-27-2024 Do you have difficul ty dressing or bathing No 10/27/2024 3:32 PM Shavonne Patel, HERNESTO No [facility] 10-27-2024 Because of a physica l, mental, or emotional condition, do you have difficulty doing errands alone such as visiting a physician's office or shopping No 10/27/2024 3:32 PM Shavonne Patel RN No [facility] Mental Status Date Assessment Result Facility 10-27-2024 Because of a physica l, mental, or emotional condition, do you have serious difficulty concentrating, remembering, or making decisions No 10/27/2024 3:32 PM Shavonne Patel RN No [facility] 05-30-2022 Cognitive function Voice/Name [facility] Work Phone: Clinical Notes 03-26-2018 to 06-04-2025 Jannie Proctor, - 06/04/2025 12:17 PM Jannie Higginbotham, - 06/04/2025 11:35 AM EDTTelephone Encounter - Yue Reyes RN - 05/27/2025 9:18 AM EDTPatient Instructions Note Date & Type Note Facility 06-04-2025 Note [facility] 06-04-2025 History of Presen t illness Narrative [...] patient or surrogate. Surgeon: Jannie Proctor DO Workforce Management Coordinator(s): Lolis Painter Procedure(s): EVLT ablation of [...] junction. The sheath was removed, and a 4-Uruguayan sheath and dilator were passed over the [...] or Implants: none Specimens: none Complications: none [facility] Operative Report [...] given & Reviewed Verbally with Patient & Business Process Lead Discharge Time: 1226 Discharged with Business Process Lead: With son at 1226 SIGN OUT COMPLETE: Yes Assistants: Rupa Painter RDMS Kerrie Talley LPN documented in this encounter [facility] 06-04-2025 Note [facility] 05-27-2025 Telephone encounter Note Please send calming medication for vein procedure on 06/04/25 [facility] 05-27-2025 Miscellaneous Notes Please send calming medication for vein procedure on 06/04/25 documented in this encounter [facility] 05-26-2025 Telephone encounter Note Spoke to patient to schedule evlt encounter closed. [facility] Work Phone: 05-26-2025 Miscellaneous Notes Spoke to patient to schedule evlt encounter closed. Left message for pt to call to set up procedure with dr. Proctor. documented in this encounter [facility] 05-19-2025 Telephone encounter Note Left message for pt to call to set up procedure with dr. Proctor. [facility] 05-13-2025 Telephone encounter Note Please inform pt. that her mammogram looks good. Nevin Fajardo APRN.CNP [facility] 05-13-2025 Miscellaneous Notes Please inform pt. that her mammogram looks good. Nevin Fajardo APRN.CNP documented in this encounter [facility] 05-11-2025 History of Presen t illness Narrative [...] PATIENT PRESENTS WITH AN IMPLANTABLE OR ATTACHED CONSULTANT LUXURY AND AUTO. VICE PRESIDENT JAGUAR BRAND (EX ): No RADIOLOGY DEPARTMENT: Mammography PERIPHERAL IV DATA: Not applicable SIGNED BY: Layla Perry May 11, 2025 1:48 PM documented in this encounter [facility] 05-11-2025 Note [facility] 04-29-2025 Note [facility] 04-29-2025 History of Presen t illness Narrative [...] Florecita has received a cortisone injection at [facility] with no relief. - Taking pregabalin [...] her physical activity. - Uses a leg tow truck driver to achieve 10,000 steps a day, which [...] related to arthritis. COVID-19 Vaccination: - Received 3D Biomatrix COVID-19 vaccine but regrets it due to [...] Osteopenia Psoriasis Pulmonary nodule Dr. Dawn Sepsis ([facility]) 11/05/2022 Snoring PAST SURGICAL HISTORY Procedure [...] pain while minimizing sedation; sent prescription to [facility]. 3. Chronic right shoulder pain (M25.511) - Persistent pain and locking of the right shoulder; previous corticosteroid injection provided no relief. - Discussed limitations of imaging studies; insurance typically requires conservative management prior to MRI approval. - requesting referral to [facility] in [place] for orthopedic evaluation. 4. Hyperlipidemia, unspecified hyperlipidemia [...] as needed for worsening/no improvement. Rosie Syed APRN.CALENDER WORKER HELPER Recording using [employer] software for draft documentation of the visit was discussed with the patient/authorized order entry representative; all questions welcomed and answered. Patient/authorized order entry representative agreed to proceed documented in this encounter [facility] 04-29-2025 Instructions Rosie Syed APRN.CALENDER WORKER HELPER - 04/29/2025 10:36 AM EDT - I ve sent a prescription for pregabalin 25 mg tablets to be taken each morning; continue using your existing 75 mg tablets at bedtime. - We'll fax referral to ortho in [place]. I - I ll send a message to Dr. Proctor s office to follow up on scheduling your left leg vein procedure; they will contact you with the appointment details. - Continue the same medication. - recheck in 3 months. documented in this encounter [facility] 04-14-2025 Note [facility] 04-14-2025 History of Presen t illness Narrative Images from the original note were not included. [facility] DEPARTMENT OF VASCULAR SURGERY OUTPATIENT VISIT DATE [...] breast (HCC) Chronic obstructive pulmonary disease (COPD) ([facility]) Chronic pain 06/03/2012 sees pain management. Diarrhea 11/06/2022 Hyperlipidemia 06/03/2012 Hypertension 06/03/2012 Nausea & vomiting 11/06/2022 Osteopenia Psor[address] Pulmonary nodule [address] Dawn Sepsis ([facility]) 11/05/2022 Snoring PAST SURGICAL HISTORY Procedure [...] TIME: 10:50 AM documented in this encounter [facility] 02-13-2025 Telephone encounter Note Lvm for pt to call back regarding thoracic spine xray results. Showed arthritis. She saw her PCP on 02/11 and they referred her to Spine. No further recommendations. [facility] Work Phone: 02-13-2025 Miscellaneous Notes Lvm for pt to call back regarding thoracic spine xray results. Showed arthritis. She saw her PCP on 02/11 and they referred her to Spine. No further recommendations. documented in this encounter [facility] 02-11-2025 Note [facility] 02-11-2025 History of Presen t illness Narrative [...] Lymph 1.00 - 4.00 k/uL 1.48 1.39 Stoddard% % 10.9 9.4 Abs Stoddard <0.87 k/uL 0.48 0.52 Eosin% % 1.4 [...] of upper-outer quadrant of left female breast ([facility]) Chronic obstructive pulmonary disease (COPD) ([facility]) Chronic pain 06/03/2012 sees pain management. Diarrhea 11/06/2022 Hyperlipidemia 06/03/2012 Hypertension 06/03/2012 Nausea & vomiting 11/06/2022 Osteopenia Psor[address] Pulmonary nodule [address] Dawn Sepsis ([facility]) 11/05/2022 Snoring PAST SURGICAL HISTORY Procedure [...] G89.29 - await xray - CONSULT TO [facility] 9. SOB (shortness of breath) - ICD9: 786.05, ICD10: R06.02 - CONSULT TO CARDIOLOGY Tu Canela MD documented in this encounter [facility] 02-09-2025 Note [facility] 02-09-2025 History of Presen t illness Narrative Images from the original note were not included. [facility] DEPARTMENT OF VASCULAR SURGERY OUTPATIENT VISIT DATE [...] of upper-outer quadrant of left female breast ([facility]) Chronic obstructive pulmonary disease (COPD) ([facility]) Chronic pain 06/03/2012 sees pain management. Diarrhea 11/06/2022 Hyperlipidemia 06/03/2012 Hypertension 06/03/2012 Nausea & vomiting 11/06/2022 Osteopenia [address]sor[address] Pulmonary nodule [address] Dawn Sepsis ([facility]) 11/05/2022 Snoring PAST SURGICAL HISTORY Procedure [...] TIME: 10:14 AM documented in this encounter [facility] 02-05-2025 History of Presen t illness Narrative [...] PATIENT PRESENTS WITH AN IMPLANTABLE OR ATTACHED CONSULTANT LUXURY AND AUTO. VICE PRESIDENT JAGUAR BRAND (EX ): No RADIOLOGY DEPARTMENT: General X-ray: Exam(s) Completed: Spine X-Ray(s): Thoracic PERIPHERAL IV DATA: Not applicable SIGNED BY: RT Tamika(R) February 05, 2025 9:58 AM documented in this encounter [facility] 02-05-2025 Note [facility] 02-04-2025 Telephone encounter Note Patient notified. She will clam picker IFOBT. Needs a new order placed. No need to contact patient back after order filed. [facility] 02-04-2025 Miscellaneous Notes Patient notified. She will clam picker IFOBT. Needs a new order placed. No need to contact patient back after order filed. Anemia persists but is stable. Iron and vitamins are ok. Do stool test we gave her to rule out gi bleeding. Add multivitamin with iron and recheck labs in one month documented in this encounter [facility] 02-04-2025 Instructions Amy Fry APRN.[facility] - 02/04/2025 10:56 AM EDT Images from the original note were not included. Regarding your visit with Nurse Practitioner Amy Fry today at the [facility] we discussed the following: Impression: [...] have any questions Amy Fry CNP [facility] Nurse Practitioner [place], [place] [address] Office: [phone] Appointments: [phone] Stroke Signs and Symptoms: *Stroke is a [...] diet rich in fruits and vegetables (https://www.nhlbi.nih.gov/educa tion/pben-gwxmzm-vkmz) - Consider Mediterranean diet supplemented with nuts [...] of an exercise program by a health life care planner such as a physical therapist or cardiac [...] for their cardiovascular health Adapted from the [place] Heart Association/[place]ese Stroke Association: 202 Guideline for the Prevention of Stroke in Patients With Stroke and Transient Ischemic Attack documented in this encounter [facility] 02-04-2025 History of Presen t illness Narrative [facility] Established Visit Consultation is requested by: Aylin Pza 00[address] Artie Sarkar [facility] [address] PCP: [place] [address] CEREBROVASCULAR HISTORY Florecita Healy is a 84 year old female presenting for hospital discharge follow up. Admitted to [facility] 10/20-10/27/24. From discharge summary aken from the [...] changes, or sensory changes. She presented to [place] ED, where NIHSS was 2 (LFD and dysarthria). iGluc was 115. iBP was 175/77. CTH without acute process. 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 She was loaded on 300 mg Plavix and transferred to [facility] for further management. The patient was admitted [...] Osteopenia Psoriasis Pulmonary nodule Dr. Dawn Sepsis ([facility]) 11/05/2022 Snoring PAST SURGICAL HISTORY Procedure [...] 5.0 10/28/[address] brain 10/19/2024 ([place]) IMPRESSION: No CT evidence of an acute territorial infarct or acute intracranial hemorrhage CTA head and neck 10/19/2024 ([place]) IMPRESSION: * Severe stenosis of the left [...] recommended --END OF FINDING-- CT brain 10/19/2024 ([place]) IMPRESSION: No acute intracranial process MRI brain [...] which included preparing to see the patient, [id number] patient care, completing clinical documentation, obtaining and/or reviewing separately obtained history, performing a medically appropriate examination, counseling and educating the patient/family/caregiver, ordering medications, tests, or procedures, independently interpreting results (not separately reported), communicating results to the patient/family/caregiver, and care coordination (not separately reported) SIGNATURE Amy Fry APRN.CNP CC Aylin Sarkar [facility] [address] Tu Waterman [place] [phone] documented in this encounter [facility] 02-04-2025 Note HNO ID: [id number] Author: AMY FRY APRN.CNP Service: ? Author Type: Nurse Practitioner Type: Progress Notes Filed: 02/04/2025 11:48 Note Text: [facility] Established Visit Consultation is requested by: Aylin Sarkar [facility] [address] PCP: [place] [address] CEREBROVASCULAR HISTORY Florecita Healy is a 84 year old female presenting for hospital discharge follow up. Admitted to [facility] 10/20-10/27/24. From discharge summary arun from the [...] changes, or sensory changes. She presented to [place] ED, where NIHSS was 2 (LFD and dysarthria). iGluc was 115. iBP was 175/77. CTH without acute process. 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 She was loaded on 300 mg Plavix and transferred to [facility] for further management. The patient was admitted [...] MRI brain, stroke protocol, revealed a right lomos radiata infarct. Echo with LVH, no wall [...] pain 06/03/2012 se (more content not included)... [facility] 02-04-2025 Telephone encounter Note Anemia persists but is stable. Iron and vitamins are ok. Do stool test we gave her to rule out gi bleeding. Add multivitamin with iron and recheck labs in one month [facility] 01-27-2025 Telephone encounter Note Patient was made aware of the results. Patient verbalizes understanding. Sheron French Ma [facility] 01-27-2025 Miscellaneous Notes Patient was made aware [...] in two weeks. documented in this encounter [facility] 01-27-2025 Telephone encounter Note Labs are ok [...] See one of us in two weeks. [facility] 01-26-2025 History of Presen t illness Narrative [...] PATIENT PRESENTS WITH AN IMPLANTABLE OR ATTACHED CONSULTANT LUXURY AND AUTO. VICE PRESIDENT JAGUAR BRAND (EX ): No RADIOLOGY DEPARTMENT: General X-ray: Exam(s) Completed: Chest X-Ray PERIPHERAL IV DATA: Not applicable SIGNED BY: RT Tamika(R) January 26, 2025 4:30 PM documented in this encounter [facility] 01-26-2025 Note [facility] 01-26-2025 Note SARS-COV-2 (AGENT OF COVID-19) RNA: Not detected INFLUENZA A RNA: Not detected INFLUENZA B RNA: Not detected RESPIRATORY SYNCYTIAL VIRUS (RSV) RNA: Not detected [facility] Comment on above: Performed By: #### 9 [id number] ####[facility] LABCLIA [id number] [place] [address] [place] 01-26-2025 Note [facility] 01-26-2025 History of Presen t illness [...] Osteopenia Psoriasis Pulmonary nodule Dr. Dawn Sepsis ([facility]) 11/05/2022 Snoring PAST SURGICAL HISTORY Procedure [...] Tu Canela MD documented in this encounter [facility] 01-16-2025 Telephone encounter Note Pt states she [...] Lima RN January 16, 2025 9:45 AM [facility] 01-16-2025 Miscellaneous Notes Pt states she was [...] 2025 9:45 AM documented in this encounter [facility] 12-19-2024 Telephone encounter Note Pt notified. She verbalized understanding. Janey Tamayo LPN [facility] 12-19-2024 Miscellaneous Notes Pt notified. She verbalized understanding. Janey Tamayo LPN Can please let patient know that her urine culture did confirm a urinary infection and that she is on the correct antibiotic. Rosie Syed APRN.CNP documented in this encounter [facility] 12-19-2024 Telephone encounter Note Can please let patient know that her urine culture did confirm a urinary infection and that she is on the correct antibiotic. Rosie Syed APRN.CNP [facility] 12-17-2024 Instructions Rosie Syed APRN.CNP - 12/17/2024 11:06 AM EST Increase the carvedilol to 6.25 mg twice daily. New script sent. Start the cephalexin twice daily. Recheck in 1 month. documented in this encounter [facility] 12-17-2024 Note [facility] 12-17-2024 History of Presen t illness Narrative [...] breast (HCC) Chronic obstructive pulmonary disease (COPD) ([facility]) Chronic pain 06/03/2012 sees pain management. Diarrhea 11/06/2022 Hyperlipidemia 06/03/2012 Hypertension 06/03/2012 Nausea & vomiting 11/06/20[address] Osteopenia [address] Pulmonary nod[address] Dawn Sepsis ([facility]) 11/05/2022 Snoring PAST SURGICAL HISTORY Procedure [...] as needed for worsening/no improvement. Rosie Syed APRN.CALENDER WORKER HELPER documented in this encounter [facility] 12-05-2024 Telephone encounter Note Detailed VM left on Ling's identified voicemail of information below. Shobha Prado LPN [facility] 12-05-2024 Miscellaneous Notes Detailed VM left on Ling's identified voicemail of information below. Shobha Prado LPN ok Ling with [facility] calling to get a verbal order to see pt 1 more time next week to d./c from [facility] nursing. Please advise Ling. Shobha Prado LPN documented in this encounter [facility] 12-05-2024 Telephone encounter Note ok [facility] 12-05-2024 Telephone encounter Note Ling with [facility] calling to get a verbal order to see pt 1 more time next week to d./c from [facility] nursing. Please advise Ling. Shobha Prado LPN [facility] 11-24-2024 Telephone encounter Note Patient notified of results, verbalizes understanding of instructions. Lupe Land LPN [facility] 11-24-2024 Miscellaneous Notes Patient notified of results, verbalizes understanding of instructions. Lupe Land LPN Can please let patient know that I received her back xray results, which were normal. That is good. I was concerned with the fall that she could have had a compression fracture. Rosie Syed APRN.KAITLYN documented in this encounter [facility] 11-24-2024 Telephone encounter Note Can please let patient know that I received her back xray results, which were normal. That is good. I was concerned with the fall that she could have had a compression fracture. Rosie Syed APRN.CALENDER WORKER HELPER [facility] 11-21-2024 Note [facility] 11-21-2024 History of Presen t illness Narrative [...] discuss. Patient voiced understanding. Patient discharged from [facility] Discharge date: 10-27-24 Admitted for: Ischemic Stroke [...] 2024 1:37 PM documented in this encounter [facility] 11-19-2024 History of Presen t illness Narrative [...] PATIENT PRESENTS WITH AN IMPLANTABLE OR ATTACHED CONSULTANT LUXURY AND AUTO. VICE PRESIDENT JAGUAR BRAND (EX ): No RADIOLOGY DEPARTMENT: General X-ray: Exam(s) Completed: Spine X-Ray(s): Lumbar AP / LAT / L5-S1 PERIPHERAL IV DATA: Not applicable SIGNED BY: RT Tamika(R) November 19, 2024 11:53 AM documented in this encounter [facility] 11-19-2024 Note [facility] 11-19-2024 Note [facility] 11-14-2024 Note [facility] 11-14-2024 History of Presen t illness Narrative [...] due to the weather. Patient discharged from [facility] Discharge date: 10/27/24 Admitted for: Ischemic Stroke [...] has an appointment scheduled 11/19/2024 in [facility] with ROSIE SYED - 3 wk BP check (40min per CH) 02/04/2025 in [facility] with AMY FRY - 3 month follow up 05/06/2025 in [facility] with SCREEN [facility] - MAMMO 05/12/2025 in [facility] with NEVIN FAJARDO - 1 YR [...] 2024 1:19 PM documented in this encounter [facility] 11-13-2024 Telephone encounter Note agree [facility] 11-13-2024 Miscellaneous Notes agree Kandi RAMOS calling from [facility] to report plan of care for patient [...] Ling Patterson RN documented in this encounter [facility] 11-13-2024 Telephone encounter Note Kandi RAMOS calling from [facility] to report plan of care for patient [...] unless there are questions. Ling Patterson RN [facility] 11-11-2024 Note [facility] 11-11-2024 History of Presen t illness Narrative [...] outreach call on Sunday. Patient discharged from [facility] Discharge date: 10-27-24 Admitted for: Ischemic Stroke [...] 2024 10:27 AM documented in this encounter [facility] 11-10-2024 Note [facility] 11-10-2024 Note [facility] 11-10-2024 History of Presen t illness Narrative Transitional Care Management (TCM) Follow-Up Note PCP Update / Actionable Items Virtualist Name of Virtualist: Ashely Hadley Urban Time paged: 11/10/2024 11:49 AM Preferred contact number: [phone] (home) Patient escalation symptom(s)/nursing assessment: Patient reports [...] to feet and back. Patient discharged from [facility] Discharge date: 10/27/24 Admitted for: Ischemic Stroke [...] indicated [place] [phone] and indicate 'TCM patient', MRN, Patient Name, Patient Concern, and patient's preferred method of contact (telephone, DrivenBI, [employer] kompanyo), your name, your contact number. Informed patient [...] 2024 11:41 AM documented in this encounter [facility] 11-10-2024 Note [facility] 11-10-2024 History of Presen t illness Narrative [...] followed up with Pt to verify that [facility] is coming out. Pt stated she was evaluated and PT and RN are coming this week. VBSW provided contact information and Pt will contact this teletypewriter operator if there are further concerns/needs. Pt is agreeable with plan and that this teletypewriter operator. Interventions: Assessment Discharge from PCSW panel CLARENCE Wilde November 10, 2024 10:52 AM documented in this encounter [facility] 11-10-2024 Telephone encounter Note [place] notified. Wanda Anthony MA [facility] 11-10-2024 Miscellaneous Notes [place] notified. Wanda Anthony MA Ok. Vivian from [facility] Social Work calling requesting verbal order for patient, for community resources. Please advise documented in this encounter [facility] 11-10-2024 Telephone encounter Note Ok. [facility] 11-10-2024 Telephone encounter Note Vivian from [facility] Work calling requesting verbal order for patient, for community resources. Please advise [facility] 11-07-2024 Telephone encounter Note Javon PT from [facility] calling to report plan of care. Physical therapy will visit 2 times a week for 3 weeks for functional mobility training. No call back needed Ling Patterson RN [facility] 11-07-2024 Miscellaneous Notes Javon PT from [facility] calling to report plan of care. Physical therapy will visit 2 times a week for 3 weeks for functional mobility training. No call back needed Ling Patterson RN documented in this encounter [facility] 11-07-2024 Note [facility] 11-07-2024 History of Presen t illness Narrative [...] the next business day. Patient discharged from [facility] Discharge date: 10-27-24 Admitted for: Ischemic Stroke [...] 2024 3:06 PM documented in this encounter [facility] 11-06-2024 Telephone encounter Note Phoned Ling and went over notes from Dr Canela with understanding. [facility] 11-06-2024 Miscellaneous Notes Phoned Ling and went over notes from Dr Canela with understanding. Ok to do Ling from [facility] Home Health calling with plan of care for skilled nurse visits once weekly for 4 weeks. Asking for verbal order for Social Work to go over community resources. Please advise documented in this encounter [facility] 11-06-2024 Telephone encounter Note Ok to do [facility] 11-06-2024 Telephone encounter Note Ling from [facility] Home Health calling with plan of care for skilled nurse visits once weekly for 4 weeks. Asking for verbal order for Social Work to go over community resources. Please advise [facility] 11-03-2024 Instructions Aylin Paz APRN.KAITLYN - 11/03/2024 [...] with Aylin Lawson CNP today at the [facility] we discussed the following: Hypertension: [...] if you have any questions Aylin Lawson [facility] [address] [place] [address] / [place] [id number] Office: [phone] Stroke Signs and Symptoms: *Stroke is a [...] diet rich in fruits and vegetables (https://www.nhlbi.nih.gov/educa tion/amor-nptleo-ikjr) - Consider Mediterranean diet supplemented with nuts [...] of an exercise program by a health life care planner such as a physical therapist or cardiac [...] for their cardiovascular health Adapted from the [place] Heart Association/[place] Stroke Association: 2021 Guideline for the Prevention of Stroke in Patients With Stroke and Transient Ischemic Attack~~~~~~~~~~~~~~~~~~~~~~~~~~ ~~~~~~~~~~~~~~~~~~~~~~~~~~ documented in this encounter [facility] 11-03-2024 History of Presen t illness Narrative [facility] Established Visit CEREBROVASCULAR HISTORY Florecita Healy is a 84 year old female. History of Event: Florecita Healy is a 84 year old female with a PMH of HTN, HLD, and tobacco use who presented to [place] ED with left leg weakness. CTH no [...] breast (HCC) Chronic obstructive pulmonary disease (COPD) ([facility]) Chronic pain 06/03/2012 sees pain management. Diarrhea 11/06/2022 Hyperlipidemia 06/03/2012 Hypertension 06/03/2012 Nausea & vomiting 11/06/2022 Osteopenia [address] Pulmonary nodule [address] Dawn Sepsis ([facility]) 11/05/2022 Snoring PAST SURGICAL HISTORY Procedure [...] touch Coordination: Rapid alternating movements symmetric bilaterally. Jvztwl-ju-hoaj, zadq-hp-[id number] without dysmetria bilaterally. Gait: stable with rollator [...] 5.0 10/28/[address] brain 10/19/2024 ([place]) IMPRESSION: No CT evidence of an acute territorial infarct or acute intracranial hemorrhage CTA head and neck 10/19/2024 ([place]) IMPRESSION: * Severe stenosis of the left [...] which included preparing to see the patient, [id number]-[id number] patient care, completing clinical documentation, obtaining and/or reviewing separately obtained history, performing a medically appropriate examination, counseling and educating the patient/family/caregiver, ordering medications, tests, or procedures, communicating with other HCPs (not separately reported), and independently interpreting results (not separately reported) SIGNATURE Aylin Paz APRN.CALENDER WORKER HELPER' documented in this encounter [facility] 11-03-2024 Note [facility] 10-31-2024 Telephone encounter Note Notified. [facility] 10-31-2024 Miscellaneous Notes Notified. Yes Netta from [facility] Home Health calling patient had been discharged from [facility] had CVA, family needs more help. Has orders for skilled nurse, PT/OT. Asking if PCP would follow the patient? They will start care on 11/03/2024. Please advise documented in this encounter [facility] 10-31-2024 Note HNO ID: [id number] Author: JANEY TAMAYO LPN Service: ? Author Type: LICENSED NURSE Type: Progress Notes Filed: 10/31/2024 16:02 Note Text: OV note printed and faxed to [facility]. Janey Tamayo LPN [facility] 10-31-2024 Note HNO ID: [id number] Author: ROSIE SYED APRN.KAITLYN Service: ? Author Type: Nurse Practitioner Type: Progress Notes Filed: 10/31/2024 15:59 Note Text: Had office visit today. Okay to fax office note. Rosie Syed APRN.KAITLYN [facility] 10-31-2024 Note HNO ID: [id number] Author: JANEY TAMAYO LPN Service: ? Author Type: LICENSED NURSE Type: Progress Notes Filed: 10/31/2024 15:53 Note Text: Pt saw Rosie for TCM today. Will fax OV notes once completed. Janey Tamayo LPN [facility] 10-31-2024 Telephone encounter Note Yes [facility] 10-31-2024 Note HNO ID: [id number] Author: TU CANELA MD Service: ? Author Type: Physician Type: Progress Notes Filed: 10/31/2024 15:35 Note Text: Can we see what else they would need since it appears it was already faxed. [facility] 10-31-2024 Instructions Rosie Syed APRN.CALENDER WORKER HELPER - 10/31/2024 11:00 AM EST Increase the nifedipine to 90 mg daily. New script went to the pharmacy. Continue the other medications the same. Schedule chest CT in 6 months. Recheck in 2 weeks. documented in this encounter [facility] 10-31-2024 Note [facility] 10-31-2024 History of Presen t illness Narrative Transitional Care Management TCM Eligibility Documentation Program: Transitional Care Management Status: Enrolled Effective Dates: 10/28/2024 - present Responsible Staff: Eliseo Michele mobile phlebotomist date: 10/27/2024 (Program start) Date of initial [...] she called her family and went [facility]. [place], she was transferred to [facility]. Copied and pasted from discharge summary. Hospital [...] changes, or sensory changes. She presented to [place] ED, where NIHSS was 2 (LFD and dysarthria). iGluc was 115. iBP was 175/77. CTH without acute process. 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 She was loaded on 300 mg Plavix and transferred to [facility] for further management. The patient was admitted [...] as needed for worsening/no improvement. Rosie Syed APRN.CALENDER WORKER HELPER documented in this encounter [facility] 10-30-2024 Telephone encounter Note Patient was not seen on 10/20/24. That was the admission date to [facility], which home health is apart of. Will call Sara Chadwick, [facility], and verify what is needed. They usually call and ask for a verbal order, then fax over their order form for Dr Canela to sign. Sheron French MA October 30, 2024 3:27 PM [facility] 10-30-2024 Miscellaneous Notes Patient was not seen on 10/20/24. That was the admission date to [facility], which home health is apart of. Will call Sara Chadwick, [facility], and verify what is needed. They usually call and ask for a verbal order, then fax over their order form for Dr Canela to sign. Sheron French MA October 30, 2024 3:27 PM Provider Action/FYI: [facility] [phone] Please fax [phone] -The face to face encounter form 10/20/24 again but needs to have actual physical signature and date. The insurance company will not accept an electric signature. -Please also send copy of the discharge AVS. Please contact them directly for any other questions. Confirmed with [facility] start of service to begin 11-04-24 for the patient. Eliseo Michele RN documented in this encounter [facility] 10-30-2024 Telephone encounter Note Netta from [facility] Home Health calling patient had been discharged from [facility] had CVA, family needs more help. Has orders for skilled nurse, PT/OT. Asking if PCP would follow the patient? They will start care on 11/03/2024. Please advise [facility] 10-30-2024 Telephone encounter Note Provider Action/FYI: [facility] [phone] Please fax [phone] -The face to face encounter form 10/20/24 again but needs to have actual physical signature and date. The insurance company will not accept an electric signature. -Please also send copy of the discharge AVS. Please contact them directly for any other questions. Confirmed with [facility] start of service to begin 11-04-24 for the patient. Eliseo Michele RN [facility] 10-29-2024 Note HNO ID: [id number] Author: JANEY TAMAYO LPN Service: ? Author Type: LICENSED NURSE Type: Progress Notes Filed: 10/29/2024 15:29 Note Text: DC summary, HANDP, order for HHC and OT/PT order faxed to [facility]. [facility] 10-29-2024 Note [facility] 10-29-2024 History of Presen t illness Narrative Value Based Social Work Progress Note Provider Action / FYI PCP Action No action needed at this time Date of Service: 10/29/2024 Patient identified by name/: Chart Review Referral Source: Referral Patient Outreach: Follow Up Mode of Outreach: Phone call to [facility] Response Time: VBSW will follow up with Pt once information for start is known Narrative: VBSW reviewed Pt chart. VBSW left VM for intake with [facility] to see if documentation for home health care received and to provide them with Pt's granddaughter, Thanh Tierney's number [phone] as it was Pt's preferred contact. 4:10 PM Netta with [facility] left VM stating received the fax a few minutes prior and will call this teletypewriter operator 10/30 whether they will be able to take her. Interventions: Advocacy Stakeholder collaboration CLARENCE Wilde October 29, 2024 3:03 PM documented in this encounter [facility] 10-29-2024 Note [facility] 10-29-2024 History of Presen t illness Narrative [...] faxed by Dr. Canela's office yesterday to [employer]. Patient also aware that we are waiting on confirmation from Dr. Canela's office that all the appropriate paperwork was faxed to [facility]. Patient requested her granddaughter Thanh to be contacted with an updates as she is the one that handles her care. Thanh per patient is also attempting to obtain patient a wheeled walker from [facility] that is supposed to be delivered today so would need to discuss that also. Phone call placed to Thanh and voicemail message left with return phone number. Patient discharged from [facility] Discharge date: 10/27/24 Admitted for: Ischemic Stroke [...] all the appropriate paperwork was faxed to [facility] so the start of care can begin. She is agreeable to be called with updates. In regards to the wheeled walker patient's granddaughter ordered yesterday from [facility] and is waiting for possibly delivery today. Patient did have to pay out of pocket. Granddaughter aware order was also faxed to [facility] [employer] for the Walker. This Lighting Fixtures Decorator will reach out to [facility] to check status. Contact made with Bee at [email or web address]. Bee reports they are unable to provide that item to patient's zip code for single item delivery. They would only be able to provide the walker if she had a multiple equipment order like oxygen or a hospital bed with the walker need. Granddaughter Thanh notified and she is confident walker will be delivered today from [facility] so no other intervention needed at this time. She is aware she will be contacted in regards to Home Care start of service. Eliseo Michele RN October 29, 2024 1:44 PM documented in this encounter [facility] 10-28-2024 Note HNO ID: [id number] Author: JANEY TAMAYO LPN Service: ? Author Type: LICENSED NURSE Type: Progress Notes Filed: 10/28/2024 16:58 Note Text: Order for wheeled walker faxed. Janey Tamayo LPN [facility] 10-28-2024 History of Presen t illness Narrative Order for wheeled walker faxed. Janey Tamayo LPN Ok to send all below Order printed for wheeled walker. Please fax, as requested. Rosie Syed APRN.CALENDER WORKER HELPER Transition Care Management (TCM) Initial Outreach PCP Update / Actionable Items Dr. Canela and staff: Patient was discharged home without a wheeled walker and is having difficulty obtaining one at this time. Please have your staff fax the order for the wheeled walker in [facility] with patient's Demographics to [employer] at [phone] GAL. Social Work Update / Actionable Items Patient was discharged 10/27/24 from [facility] [place] diagnosis of Ischemic Stroke without Home Health Care Services arrangement. Patient reported she was told by the [facility] there are no Home Care Services available in [facility]. Granddaughter was supposed to provide 24 [...] attempted to get her a walker from [employer] yesterday but was unsuccessful. Patient also was not discharged with Home Care services as per patient she was told by the [facility] there an no Home Care Services in [facility]. Patient became frustrated during the phone call and wanted to end the call. Patient requested a call back with updates in regards to how she can obtain the wheeled walker to be sent to her home. Returned call to patient and advised message will be sent to her PCP's office to assist with faxing the wheelchair order to [employer]. Patient is also in agreement to be contacted by Social Work to discuss Home Care Needs. Patient discharged from [facility] Discharge date: 10/27/24 Admitted for: Ischemic Stroke Readmission Risk: 18 Value-Based Contract: Alicia ASHLEY Contact: Contact made with patient: Yes Hi, my name is Eliseo Michele RN and I am calling from the [facility] on behalf of your Primary Care Provider, [...] per patient she was told by the [facility] there are no Home Care Services in [...] like to speak with a social work forensics team director to help give you support for any [...] contract and routed to appropriate pool: Alicia SAHLEY [facility] Social Work Pool [[id number]] - Alicia ASHLEY Follow-Up Appointment: [Appointment / TCM Follow-up within 14 days] I would like to help you schedule a hospital follow-up virtual or telephone visit with your PCP. This is a great way for you to connect with your provider to ensure you have safely transitioned home. If you are agreeable, I will send your request to a cylinder press feeder who will contact and assist you with [...] 2024 10:51 AM documented in this encounter [facility] 10-28-2024 Note HNO ID: [id number] Author: TU CANELA MD Service: ? Author Type: Physician Type: Progress Notes Filed: 10/28/2024 12:58 Note Text: Ok to send all below [facility] 10-28-2024 Note [facility] 10-28-2024 History of Presen t illness Narrative Value Based Social Work Progress Note Provider Action / FYI PCP Action [facility] [phone] Please fax [phone] - Facesheet; Pt's demographics, insurance information - Signed doctor's order with disciplines needed (PT, OT, etc.) - Dx stroke on sheet - H&P documentation - Discharge paperwork and summary - Medication List Date of Service: 10/28/2024 Patient identified by name/: Yes- via Telephone Patient/caregiver informed speaking on recorded line. Referral Source: Referral Patient Outreach: Initial Mode of Outreach: Phone Call [phone] Response Time: Contact made Patient Needs: Home Health Care Assessment: Payor Patient functional ability Existing community support Living situation Action Taken: Direct patient connection to resource Provide Patient Resources Education Supportive listening Is Patient ready for discharge? No Follow-up Plan [next steps] High [7-14 days] Narrative: VBSW received an urgent TCM phone encounter from Eliseo Michele RN Patient was discharged 10/27/24 from [facility] [place] diagnosis of Ischemic Stroke without Home Health Care Services arrangement. Patient reported she was told by the [facility] there are no Home Care Services available in [facility]. Granddaughter was supposed to provide 24 [...] documents to agency if needed. VBSW called [facility] [phone] and fax [phone] and they accept Pt's insurance and have availability to accept for services. VBSW introduced self to Pt and stated reason for call. Pt stated she did not want to go to SNF due to her dog at home. Pt's granddaughter was to help her as she is a nurse but is now unable. VBSW informed Pt of [facility] and she was okay with it [...] 2024 12:52 PM documented in this encounter [facility] 10-28-2024 Note Addended by: ROSIE SYED on: 10/28/2024 12:33 PM Modules accepted: Orders [facility] 10-28-2024 Miscellaneous Notes Addended by: ROSIE SYED on: 10/28/2024 12:33 PM Modules accepted: Orders documented in this encounter [facility] 10-28-2024 Note HNO ID: [id number] Author: ROSIE SYED APRN.CNP Service: ? Author Type: Nurse Practitioner Type: Progress Notes Filed: 10/28/2024 12:33 Note Text: Order printed for wheeled walker. Please fax, as requested. Rosie Syed APRN.CNP [facility] 10-28-2024 Note [facility] 10-26-2024 Note [facility] 10-25-2024 Note [facility] 10-25-2024 Note HNO ID: [id number] Author: NOTE, INTERFACE, ? Service: ? Author Type: ? Type: Progress Notes Filed: 10/30/2024 15:59 Note Text: Epic Scheduled Downtime: 10/25/2024 1:00:00 AM to 10/25/2024 2:52:17 AM [facility] 10-24-2024 Note [facility] 10-23-2024 Note [facility] 10-23-2024 Note [facility] 10-22-2024 Note [facility] 10-21-2024 Note [facility] 10-20-2024 Note [facility] 10-20-2024 Note [facility] 10-20-2024 Note [facility] 10-19-2024 Note HNO ID: [id number] Author: BRIJESH MARTIN MD Service: [facility]ospital Author Type: Physician Type: Progress Notes Filed: 10/19/2024 23:49 Note Text: eHospital Provider Note Call Initiation By: Bedside Caregiver: Provider Primary Reason for Call: Admission to ICU;Neurological Status Primary Reason for Call (Other): 84 yo woman with PMH of chronic lumbar radiculopathy, hypertension, and hyperlipidemia presented to [place] ED at 0939 on 10/19/24 last known [...] available in the neuro ICU. ED requesting [place] ICU admission for continued care. Currently NIHSS of [address] Reid Assessment: CVA with L arm numbness and weakness, slurred speech, mutifocal severe cerebral stenosis Plan/Intervention (other): Admit to [place] ICU pending transfer to . Continue aspirin plavix. This patient has the following organ/system impairment(s): : Stroke MD/TONEY Collaboration: ([facility] senior escrow officer) SIGNATURE: Brijesh Martin MD PATIENT NAME: Florecita Healy DATE: October 19 2024 TIME: 11:35 PM [facility] 10-19-2024 Note HNO ID: [id number] Author: SAVANAH CRUZ RT(R) Service: Radiology Author [...] PATIENT PRESENTS WITH AN IMPLANTABLE OR ATTACHED CONSULTANT LUXURY AND AUTO. VICE PRESIDENT JAGUAR BRAND (EX ): No RADIOLOGY DEPARTMENT: CT; Exam(s) Completed: Brain PERIPHERAL IV DATA: Not applicable SIGNED BY: RT Edward(R) October 19, 2024 7:26 PM [facility] 10-19-2024 Note [facility] 10-19-2024 History of Presen t illness Narrative TELESTROKE DOCUMENTATION Name: Florecita Healy : 1940 Referring Site: [place] Referring Provider: Dr. Parikh Last Known Well (Date/Time): 10/18/24 230 Neurologist Callback (Date/Time): 10/19/24 0914 Chief Complaint: Left sided weakness HPI: 84 [...] the neurological deficits Planned Facility for Transfer: [facility] I personally completed this evaluation as a staff physician: Yes Video: Case complexity: Complex More than 50 percent of the encounter was spent on coordinating care of the patient during a telestroke. Thank you for contacting the [facility]. I appreciate the opportunity for allowing me to participate in Florecita Healy's care. Please feel free to contact me and/or the [facility] at any time if you have any further questions or need additional assistance. Jose Little MD October 19, 2024 2:56 PM documented in this encounter [facility] 10-14-2024 Telephone encounter Note Patient calling again. Letter printed and faxed as requested [facility] 10-14-2024 Miscellaneous Notes Patient calling again. Letter printed and faxed as requested There is a letter the patient gets from us.printed. Patient calls and states that she currently is at [facility]. Patient states that she was told that she needed orders for handicap placard and handicap sticker for license plate. Patient asking if order can be faxed to [facility] at [phone]. Ling Patterson RN documented in this encounter [facility] 10-14-2024 Telephone encounter Note There is a letter the patient gets from us.printed. [facility] 10-14-2024 Telephone encounter Note Patient calls and states that she currently is at [facility]. Patient states that she was told that she needed orders for handicap placard and handicap sticker for license plate. Patient asking if order can be faxed to [facility] at [phone]. Ling Patterson RN [facility] 09-22-2024 Note [facility] 09-22-2024 History of Presen t illness Narrative [facility] Telephonic Outreach Provider Action/FYI Contacted for: Routine [...] pounds in a week? 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 Routed to: No Action Needed LINDA Education Provided this Outreach: No Eliseo Michele RN September 22, 2024 12:58 PM documented in this encounter [facility] 09-18-2024 Telephone encounter Note Patient calling and states she is out of her pregabalin. Noted current prescription on record and contacted [facility] pharmacy to confirm this. Pharmacist states they have current script and will fill it for patient. Patient notified. Angela Mcguire RN [facility] 09-18-2024 Miscellaneous Notes Patient calling and states she is out of her pregabalin. Noted current prescription on record and contacted [facility] pharmacy to confirm this. Pharmacist states they have current script and will fill it for patient. Patient notified. Angela Mcguire RN documented in this encounter [facility] 09-17-2024 Instructions Rosie Syed APRN.KAITLYN - 09/17/2024 10:40 AM EST Decrease the carvedilol to 3.125 mg twice daily. Try the lac-hydrin cream to the legs. Get labwork. Recheck in 1 month. documented in this encounter [facility] 09-17-2024 Note [facility] 09-17-2024 History of Presen t illness Narrative [...] Osteopenia Psoriasis Pulmonary nodule Dr. Dawn Sepsis ([facility]) 11/05/2022 Snoring PAST SURGICAL HISTORY Procedure [...] as needed for worsening/no improvement. Rosie Syed APRN.CALENDER WORKER HELPER documented in this encounter [facility] 09-08-2024 Note [facility] 09-08-2024 History of Presen t illness Narrative [facility] Telephonic Outreach Provider Action/FYI Contacted for: Routine Telephonic Outreach Contact made with patient: No, left message. Eliseo Michele RN September 08, 2024 10:22 AM documented in this encounter [facility] 09-05-2024 Note [facility] 09-05-2024 History of Presen t illness Narrative [facility] Telephonic Outreach Provider Action/FYI Contacted for: Routine Telephonic Outreach Contact made with patient: No, left message. Eliseo Michele RN September 05, 2024 11:14 AM documented in this encounter [facility] 08-25-2024 Telephone encounter Note Patient has been [...] Please advise. Thank you. Holly Wood LPN. [facility] 08-25-2024 Miscellaneous Notes Patient has been identified [...] Holly Wood LPN. documented in this encounter [facility] 08-12-2024 Instructions Rosie Syed APRN.KAITLYN - 08/12/2024 11:33 AM EDT Continue the same medication. Recheck, as scheduled. documented in this encounter [facility] 08-12-2024 Note [facility] 08-12-2024 History of Presen t illness Narrative [...] of upper-outer quadrant of left female breast ([facility]) Chronic obstructive pulmonary disease (COPD) ([facility]) Chronic pain 06/03/2012 sees pain management. Diarrhea 11/06/2022 Hyperlipidemia 06/03/2012 Hypertension 06/03/2012 Nausea & vomiting 11/06/2022 Osteopenia Psoriasis Pulmonary nodule Dr[facility] Dawn Sepsis ([facility]) 11/05/2022 Snoring PAST SURGICAL HISTORY Procedure [...] as needed for worsening/no improvement. Rosie Syed APRN.CALENDER WORKER HELPER documented in this encounter [facility] 08-08-2024 Note [facility] 08-08-2024 History of Presen t illness Narrative [facility] Telephonic Outreach Provider Action/FYI Contacted for: Routine Telephonic Outreach Contact made with patient: No, left message. Eliseo Michele RN August 08, 2024 3:05 PM documented in this encounter [facility] 07-28-2024 Note [facility] 07-28-2024 History of Presen t illness Narrative [facility] Telephonic Outreach Provider Action/FYI Contacted for: Routine Telephonic Outreach Contact made with patient: No, left message. Eliseo Michele RN July 28, 2024 10:50 AM documented in this encounter [facility] 07-25-2024 Note [facility] 07-25-2024 History of Presen t illness Narrative [facility] Telephonic Outreach Provider Action/FYI Contacted for: Routine Telephonic Outreach Contact made with patient: No, left message. Eliseo Michele RN July 25, 2024 11:47 AM documented in this encounter [facility] 07-22-2024 Telephone encounter Note The patient has [...] Griffith RN July 22, 2024 11:00 AM [facility] 07-22-2024 Miscellaneous Notes The patient has been [...] 2024 11:00 AM documented in this encounter [facility] 07-09-2024 Rosie Chavez APRN.CALENDER WORKER HELPER - 07/09/2024 1:35 PM EDT Change the losartan to evening. Recheck in 1 month. documented in this encounter [facility] 07-09-2024 Note [facility] 07-09-2024 History of Presen t illness Narrative [...] No date: Chronic obstructive pulmonary disease (COPD) ([facility]) 06/03/2012: Chronic pain Comment: sees pain management. [...] as needed for worsening/no improvement. Rosie Syed APRN.CALENDER WORKER HELPER documented in this encounter [facility] 07-09-2024 Nurse Note 07/09/2024: Home BP Cuff Validated. Home BP: 135/62 Office BP: 142/78 [facility] 07-09-2024 Nurse Note 07/09/2024: Home BP Cuff Validated. Home BP: 135/62 Office BP: 142/78 documented in this encounter [facility] 07-04-2024 Note [facility] 07-04-2024 History of Presen t illness Narrative Florecita Healy is identified through a medication adherence outreach initiative based on pharmacy claims data from [employer] (insurer) for ROB medication(s). Patient is reviewed [...] losartan Lolis Sun documented in this encounter [facility] 07-03-2024 Note [facility] 07-03-2024 History of Presen t illness Narrative [...] pounds in a week? 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 Routed to: No Action Needed LINDA Education Provided this Outreach: No Eliseo Michele RN July 03, 2024 1:30 PM documented in this encounter [facility] 07-01-2024 Instructions Rosie Syed APRN.CNP - 07/01/2024 11:41 AM EDT Stop the lisinopril. Start the losartan. Decrease the amlodipine to 1/2 tablet (5 mg) daily. Restart the carvedilol. Recheck in 1-2 weeks -- bring home cuff with you. documented in this encounter [facility] 07-01-2024 Note [facility] 07-01-2024 History of Presen t illness Narrative [...] as needed for worsening/no improvement. Rosie Syed APRN.CALENDER WORKER HELPER documented in this encounter [facility] 06-21-2024 Note [facility] 06-21-2024 History of Presen t illness Narrative [facility] Telephonic Outreach Provider Action/FYI #2 attempt to contact patient. Contacted for: Routine Telephonic Outreach Contact made with patient: No, left message. Eliseo Michele RN June 21, 2024 3:28 PM documented in this encounter [facility] 06-20-2024 Note [facility] 06-20-2024 History of Presen t illness Narrative [facility] Telephonic Outreach Provider Action/FYI #1 attempt to contact patient. Contacted for: Routine Telephonic Outreach Contact made with patient: No, left message. Eliseo Michele RN June 20, 2024 3:10 PM documented in this encounter [facility] 06-16-2024 Telephone encounter Note Patient has been [...] Please advise. Thank you. Holly Wood LPN. [facility] 06-16-2024 Miscellaneous Notes Patient has been identified [...] Holly Wood LPN. documented in this encounter [facility] 06-05-2024 History of Presen t illness Narrative [...] Medicare Annual Wellness Visit 09/17/2024 in [facility] with ROSIE SYED - Annual Medicare Wellness, address HCC gaps 05/06/2025 in RADIO MAMMO [facility] with SCREEN MAMMO [facility] - MAMMO 05/08/2025 in [facility] with NEVIN FAJARDO - 1 YR OV* / MAMMO DONE 05/06 Navigation Signature: Zeny Tabares MA June 05, 2024 10:56 AM documented in this encounter [facility] 06-05-2024 History of Presen t illness Narrative [facility] Telephonic Outreach Provider Action/FYI Contacted for: Routine Telephonic Outreach Contact made with patient: No, left message. Iveth Galindo RN June 05, 2024 9:[address] [facility] Telephonic Outreach Provider Action/FYI Contacted for: Routine Telephonic Outreach Contact made with patient: No, left message. Iveth Galindo RN June 04, 2024 11:34 AM documented in this encounter [facility] 05-26-2024 Telephone encounter Note Pt notified. Janey Tamayo LPN [facility] 05-26-2024 Miscellaneous Notes Pt notified. Janey Tamayo [...] plan of care. documented in this encounter [facility] 05-26-2024 Telephone encounter Note She can use the ibuprofen sparingly. We do not want to use it regularly/routinely as we want to protect her kidney function. Rosie Syed APRN.CALENDER WORKER HELPER [facility] 05-26-2024 Telephone encounter Note Phoned pt for [...] ok to take Ibuprofen? Janey Tamayo LPN [facility] 05-26-2024 Telephone encounter Note Patient is wanting to know if she is able to take ibuprofen without causing adverse medication reaction with carvedilol. She reports having pain in her arm that is not reducing with Tylenol. Please notify patient of plan of care. [facility] 05-07-2024 History of Presen t illness Narrative [...] fevers or recent illness. Had covid at [place] 2023. Resp:denies cough or sob, occ. 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 Emilie Conte LPN [facility] 05-06-2024 Miscellaneous Notes Left VM on identified VM. Emilie Conte LPN Please inform pt. that her mammogram looks good. Thank you. Nevin Fajardo APRN.CALENDER WORKER HELPER documented in this encounter [facility] 05-06-2024 Telephone encounter Note Please inform pt. that her mammogram looks good. Thank you. Nevin Fajardo APRN.CALENDER WORKER HELPER [facility] 05-06-2024 Note Formatting of this n ote might be different from the original. May 06, 2024 PID: [id number] Florecita Healy [address] [place], [place] [address] [place] [address] Dear Ms. Healy, We are pleased to [...] report will be kept on file at [facility] as part of your permanent medical record and are available for your continuing care. Thank you for allowing us to help in meeting your health care needs. Sincerely, Dr. Kaiser Interpreting Radiologist [facility] (Normal over 40) [facility] 05-06-2024 Miscellaneous Notes May 06, 2024 PID: [id number] Florecita Healy [address] [place] [id number] Dear Ms. Healy, We are pleased to [...] report will be kept on file at [facility] as part of your permanent medical record and are available for your continuing care. Thank you for allowing us to help in meeting your health care needs. Sincerely, Dr. Kaiser Interpreting Radiologist [facility] (Normal over 40) documented in this encounter [facility] 05-05-2024 History of Presen t illness Narrative [...] PATIENT PRESENTS WITH AN IMPLANTABLE OR ATTACHED CONSULTANT LUXURY AND AUTO. VICE PRESIDENT JAGUAR BRAND (EX ): No RADIOLOGY DEPARTMENT: Mammography PERIPHERAL IV DATA: Not applicable SIGNED BY: Layla Mitchell May 05, 2024 10:15 AM documented in this encounter [facility] 04-30-2024 History of Presen t illness Narrative [facility] Telephonic Outreach Provider Action/FYI Contacted for: Routine [...] patient she can also address at her [facility] appointment tomorrow to see what they [...] [facility] Offered to give patient the number [...] pounds in a week? 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 Routed to: No Action Needed LINDA Education Provided this Outreach: No Eliseo Michele RN April 30, 2024 4:52 PM documented in this encounter [facility] 04-02-2024 History of Presen t illness Narrative [facility] Telephonic Outreach Provider Action/FYI Contacted for: Routine [...] pounds in a week? 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 Routed to: No Action Needed LINDA Education Provided this Outreach: No Eliseo Michele RN April 02, 2024 2:21 PM documented in this encounter [facility] 03-24-2024 Telephone encounter Note Pt notified. She verbalized understanding. Janey Tamayo LPN [facility] 03-24-2024 Miscellaneous Notes Pt notified. She verbalized understanding. Janey Tamayo LPN ----- Message from Rosie Syed APRN.CALENDER WORKER HELPER sent at 03/24/2024 4:17 PM EDT ----- Can please let patient know that her labwork is within normal/stable. Rosie Syed APRN.CALENDER WORKER HELPER documented in this encounter [facility] 03-24-2024 Telephone encounter Note ----- Message from Rosie Syed APRN.CNP sent at 03/24/2024 4:17 PM EDT ----- Can please let patient know that her labwork is within normal/stable. Rosie Syed APRN.CALENDER WORKER HELPER [facility] 03-19-2024 Instructions Rosie Syed APRN.CNP - 03/19/2024 11:03 AM EDT Get the labwork. Continue the same medication. documented in this encounter [facility] 03-19-2024 History of Presen t illness Narrative [...] of upper-outer quadrant of left female breast ([facility]) Chronic obstructive pulmonary disease (COPD) ([facility]) Chronic pain 06/03/2012 sees pain management. Diarrhea 11/06/2022 Hyperlipidemia 06/03/2012 Hypertension 06/03/2012 Nausea & vomiting 11/06/2022 Osteopenia Psoriasis Pulmonary nodule Dr[facility] Dawn Sepsis ([facility]) 11/05/2022 Snoring PAST SURGICAL HISTORY Procedure [...] Rosie Syed APRN.CNP documented in this encounter [facility] 03-17-2024 Note Addended by: ROSIE SYED on: 03/17/2024 07:26 PM Modules accepted: Orders [facility] 03-17-2024 Telephone encounter Note Script sent. Due for an appt. Rosie Syed APRN.CNP [facility] 03-17-2024 Miscellaneous Notes Addended by: ROSIE SYED [...] you. Zehra Morejon. documented in this encounter [facility] 03-17-2024 Telephone encounter Note Patient has been [...] found Please advise. Thank you. Zehra Morejon. [facility] 02-20-2024 Miscellaneous Notes During Telephonic Outreach patient [...] Eliseo Michele RN documented in this encounter [facility] 02-20-2024 History of Presen t illness Narrative [...] pounds in a week? 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 Routed to: No Action Needed LINDA Education Provided this Outreach: No Eliseo Michele RN February 20, 2024 2:58 PM documented in this encounter [facility] 01-25-2024 Miscellaneous Notes During Telephonic Outreach patient [...] Eliseo Michele RN documented in this encounter [facility] 01-25-2024 History of Presen t illness Narrative [...] pounds in a week? 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 Routed to: No Action Needed LINDA Education Provided this Outreach: No Eliseo Michele RN January 25, 2024 9:45 AM documented in this encounter [facility] 01-24-2024 History of Presen t illness Narrative [facility] Telephonic Outreach Provider Action/FYI #1 attempt to contact patient. Contacted for: Routine Telephonic Outreach Contact made with patient: No, left message. Eliseo Michele RN January 24, 2024 3:31 PM documented in this encounter [facility] 01-10-2024 History of Presen t illness Narrative [facility] Telephonic Outreach Provider Action/FYI #2 attempt to contact patient. Contacted for: Routine Telephonic Outreach Contact made with patient: No, left message. Eliseo Michele RN January 10, 2024 10:56 AM documented in this encounter [facility] 01-09-2024 History of Presen t illness Narrative [facility] Telephonic Outreach Provider Action/FYI #1 attempt to contact patient. Contacted for: Routine Telephonic Outreach Contact made with patient: No, left message. Eliseo Michele RN January 09, 2024 12:00 PM documented in this encounter [facility] 12-17-2023 Miscellaneous Notes The following approved medication requests have been transmitted electronically. Requested Prescriptions Pending Prescriptions Disp Refills carvedilol (COREG) 6.25 mg tablet 180 tablet 1 Sig: Take 1 tablet by mouth two times a day with meals. Netta Hutson APRN.KAITLYN Pt called in and was asking to get Lyrical refilled. Let her know that she already had refill at [facility]. Patient has been identified by name and date of : Patient phones for refill(s): Requested Prescriptions Pending Prescriptions Disp Refills carvedilol (COREG) 6.25 mg tablet 180 tablet 1 Sig: Take 1 tablet by mouth two times a day with meals. Pt was originally prescribed this by Dr. Pagan when she was admitted to [facility] in Oct 2023. Has seen Rosie Yahaira since then who told her that she should stay on this medication. Pt requesting a 90 day supply. Date of last office visit in primary care: 12/05/2023 Date of next office visit in primary care: 01/28/2024 Please advise. Thank you. Lupe Scott RN. documented in this encounter [facility] 11-26-2023 Telephone encounter Note 1st call attempt, left vm [facility] 11-26-2023 Miscellaneous Notes 1st call attempt, left [...] diagnosis) ThanksBernard PA-C documented in this encounter [facility] 11-26-2023 Telephone encounter Note Had 1/2 of thyroid removed when she was in her 20's. Willing to have US completed. Advised that would have someone contact to set up. [facility] 11-24-2023 Telephone encounter Note 11/13/2023 CTA chest demonstrated thyroid nodules left and right (hx of benign nodules on bx right): radiologist recommend thyroid US. Probably would be a good idea to update US. I can't find records of US or bx so likely not done here . Telephone on 11/24/23 US THYROID/PARATHYROID Multiple thyroid nodules (primary encounter diagnosis) ThanksBernard PA-C [facility] 11-13-2023 Discharge summary Note Date/Time November 13, 2023 8:47pm [facility] Medical Records Department [address] [place] [address] Emergency Department Summary 11/13/23 MR#: [id number] Acct: [id number] Name: FLORECITA HEALY Rep #:[id number] : 1940 83 From: Hector Sprague PCP: FARRAH Rivera Status:REG E R Location: ED HPI History of Present Illness Chief Complaint: Shortness of Breath Informant: patient and family Narrative Narrative: Presents worsening dyspnea cough worse with exertion. Discharged from [facility] 3-day stay for COVID dehydration. She has been vaccinated. States hadCOVID symptoms prior to testing. First diagnosed COVID. Tobacco history however denies diagnosis COPD. No fevers. States headache and cough and congestion. No chest pains. Remote history of breast cancer. States still hasdiarrhea. PE Risk Factors: Positive for Cancer; Negative for Prior DVT or PE PFSH [facility] Medical History Amputation toe Arthritis Breast [...] clinician: N/A This note was generated with [employer] dictation software. It may contain incorrectwords, spelling, [...] 71.2 H Lymph % (Auto) 17.2 L Stoddard % (Auto) 9.8 Eos % (Auto) 0.4 [...] your Primary Care Provider. Call [facility] ([phone]) or report to the closest Emergency Room. Call 911 if necessary. 11/13/232231 <Electronically signed by Hector Sprague> Cosigner Signature (if applicable): CC: FARRAH Rivera ~ Signed [facility] Work Phone: 1(346) 392-874012-28-2023 NoteHNO ID: [id number] Author: Ivory Valadez RN Service: Care Management [...] Physician Primary Care Physician Name/Phone: Tu Canela [phone] Additional Information: Discharge written for patient to go home. Patient agreeable to discharge plan and denies needs. Son to transport. Bedside nurse updated. SOC sent to PCP. Follow up appointment scheduled with Lars for 11/15/23. SIGNATURE: Ivory Valadez RN PATIENT NAME: Florecita Healy DATE: November 08, 2023 TIME: 1:11 PM CONTACT #: [phone] NoteHNO ID: [id number] Author: Destiny Guy MD Service: Hospital Medicine Author Type: Physician Type: Plan of Care Filed: 11/07/2023 9:05 PM Note Text: Plan of care : Resistant HTN : will increase dose of hydralazine to 100 mg TID ADD coreg 6.25mg bidCleveland Clinic Medina [id number] NoteHNO ID: [id number] Author: Juan Pagan MD Service: Hospital Medicine Author Type: Physician Type: Progress Notes Filed: 11/07/2023 3:03 PM Note Text: DEPARTMENT OF HOSPITAL MEDICINE PROGRESS NOTE SERVICE DATE: 11/07/2023 SERVICE TIME: 2:55 PM Hospital Medicine/Primary Attending: Juan Pagan MD NIGHT AND WEEKEND COVERAGE: [place] COVERAGE: Days: [phone], please page attending physician. Nights: [phone], please page [place] Hospitalist Night coverage pager [phone]. Subjective INTERVAL HPI: No acute events overnight. [...] Drains, and Airways Line Duration Peripheral 11/06/232127 [facility] Right Forearm 22 Gauge <1 day [...] lyrica # Hypothyroidism - (more content not included)...[facility] [id number] NoteHNO ID: [id number] Author: Ivory Valadez RN Service: Care Management Author Type: Registered Nurse Type: Care Mgt Initial Assessment Filed: 11/07/2023 12:34 PM Note Text: CARE MANAGEMENT: ASSESSMENT AND DISCHARGE PLAN SERVICE DATE: November 07, 2023 SERVICE TIME: 12:32 PM PCP: Tu Canela MD - Confirmed. Primary Contact: Extended Emergency Contact Information Primary Emergency Contact: Sae Healy Relation: Grandchild Admission Status: Observation Insurance Provider: [facility] Discharge Planning requested by: Per Department Practice Potential Transition Plans Home Advance Directives Current Advance Directive: None Rail Splitter Attempted to Assist with AD Completion: Yes [...] Be able to go home, General wellness [place] of Choice Explained: [place] of [place] Given: No Reason Not Given: [...] 07, 2023 TIME: 12:32 PM CONTACT #: [phone] History of Present illness Narrative* Eliseo Michele RN - 10/24/2023 11:[address] [facility] Telephonic Outreach Provider Action/FYI #2 attempt to contact patient. Contacted for: Routine Telephonic Outreach Contact made with patient: No, left message. Eliseo Michele RN October 24, 2023 11:45 AM documented in this encounterV[facility]12-12-2023 History of Present illness Narrative* Eliseo Michele RN - 10/23/2023 1:[address] [facility] Telephonic Outreach Provider Action/FYI #1 attempt to contact patient. Contacted for: Routine Telephonic Outreach Contact made with patient: No, left message. Eliseo Michele RN October 23, 2023 1:32 PM documented in this encounterVeter[facility] Health [facility]11-14-2023 History of Present illness Narrative* Nevin FajardoCHANDLER.CALENDER WORKER HELPER - 09/25/2023 9:56 AM EST Chief Complaint [...] ICD10: Z85.3 (primary diagnosis) pT1c N0 MX ER/GA positive HER2 non-amplified stage I invasive ductal [...] as necessary for today's visit. Nevin Fajardo APRN.CALENDER WORKER HELPER documented in this encounterVeterans Health Administration11-13-2023 History of Present illness Narrative* Eliseo Michele RN - 09/24/2023 11:[address] [facility] Telephonic Outreach Provider Action/FYI #2 attempt to contact patient. Contacted for: Routine Telephonic Outreach Contact made with patient: No, left message. Eliseo Michele RN September 24, 2023 11:19 AM documented in this encounterVeter[facility]10-06-2023 History of Present illness Narrative* Eliseo Michele RN - 08/17/2023 3:[address] [facility] Telephonic Outreach Provider Action/FYI #1 attempt to contact patient. Contacted for: Routine Telephonic Outreach Contact made with patient: No, left message. Eliseo Michele RN August 17, 2023 3:45 PM documented in this encounterVeterans Health Administration09-19-2023 History of Present illness Narrative* Aneta Brown [...] breast (HCC) Chronic obstructive pulmonary disease (COPD) ([facility]) Chronic pain 06/03/2012 sees pain management. Diarrhea 11/06/2022 Hyperlipidemia 06/03/2012 Hypertension 06/03/2012 Nausea & vomiting 11/06/2022 Osteopenia [address] Pulmonary nodule [address] Dawn Sepsis ([facility]) 11/05/2022 Snoring PAST SURGICAL HISTORY Procedure [...] months Aneta Brown PA-C documented in this encounterVeterans Health Administration09-12-2023 History of Present illness Narrative* Eliseo Michele RN - 07/24/2023 11:[address] [facility] Telephonic Outreach Provider Action/FYI #2 attempt to contact patient. Contacted for: Routine Telephonic Outreach Contact made with patient: No, left message. Eliseo Michele RN July 24, 2023 11:13 AM documented in this encounterVeterans Health Administration08-29-2023 History of Present illness Narrative* Jannie Proctor DO - 07/10/2023 11:10 AM EDT Images from the original note were not included. [facility] V[facility] DEPARTMENT OF VASCULAR SURGERY OUTPATIENT VISIT DATE [...] breast (HCC) Chronic obstructive pulmonary disease (COPD) ([facility]) Chronic pain 06/03/2012 sees pain management. Diarrhea 11/06/2022 Hyperlipidemia 06/03/2012 Hypertension 06/03/2012 Nausea & vomiting 11/06/2022 Osteopenia Psoriasis Pulmonary nodule Dr[facility] Dawn Sepsis ([facility]) 11/05/2022 Snoring PAST SURGICAL HISTORY Procedure [...] BP Cuff Size: Regular Adult) Pulse 80 PvX083% Gen- no distress Ext- healed venous access [...] 2023 TIME: 3:53 PM documented in this encounterVeterans Health Administration08-22-2023 Instructions* Patient Instructions* Rosie Syed APRN.CNP - 07/03/2023 10:09 AM EDT Increase the amlodipine to 10 mg. Recheck in 1 month. documented in this encounterVeterans Health Administration08-22-2023 History of Present illness Narrative* Rosie Syed [...] Osteopenia Psoriasis Pulmonary nodule Dr[facility] Dawn Sepsis ([facility]) 11/05/2022 Snoring PAST SURGICAL HISTORY Procedure [...] as needed for worsening/no improvement. Rosie Syed APRN.CALENDER WORKER HELPER documented in this encounterVeterans Health Administration08-15-2023 History of Present illness Narrative* Eliseo Michele RN - 06/26/2023 12:[address] [facility] Telephonic Outreach Provider Action/FYI #2 attempt to contact patient. Contacted for: Routine Telephonic Outreach Contact made with patient: No, left message. Eliseo Michele RN June 26, 2023 12:46 PM documented in this encounterVeterans Health Administration08-14-2023 History of Present illness Narrative* Eliseo Michele RN - 06/25/2023 1:[address] [facility] Telephonic Outreach Provider Action/FYI #1 attempt to contact patient. Contacted for: Routine Telephonic Outreach Contact made with patient: No, left message. Eliseo Michele RN June 25, 2023 1:56 PM documented in this encounterVeterans Health [facility]07-18-2023 History of Present illness Narrative* Fredi Pierce [...] us to observe her. documented in this [facility]07-18-2023 Instructions* Patient Instructions* Rosie Syed APRN.CNP - 05/29/2023 9:50 AM EDT Add amlodipine 2.5 mg to the 5 mg dose. Go ahead and decrease the metoprolol to 1/2 pill daily. Recheck in 1 month. documented in this encounterVeterans Health Administration07-18-2023 History of Present illness Narrative* Rosie Syed [...] breast (HCC) Chronic obstructive pulmonary disease (COPD) ([facility]) Chronic pain 06/03/2012 sees pain management. Diarrhea 11/06/2022 Hyperlipidemia 06/03/2012 Hypertension 06/03/2012 Nausea & vomiting 11/06/2022 Osteopenia Psoriasis Pulmonary nodule [address] Dawn Sepsis ([facility]) 11/05/2022 Snoring PAST SURGICAL HISTORY Procedure [...] as needed for worsening/no improvement. Rosie Syed APRN.CALENDER WORKER HELPER documented in this encounterVeterans Health Administration07-18-2023 Nurse Note* Janey Tamayo LPN - 05/29/2023 9:28 AM EDT Pt brought in home BP cuff. Reading in office per home wrist cuff was 138/74. documented in this encounterVeterans Health Administration07-12-2023 History of Present illness Narrative* Eliseo Michele, RN - 05/23/2023 10:[address] [facility] Telephonic Outreach Provider Action/FYI #2 attempt to contact patient. Contacted for: Routine Telephonic Outreach Contact made with patient: No, left message. Eliseo Michele RN May 23, 2023 10:25 AM documented in this encounterVeterans Health Administration07-11-2023 History of Present illness Narrative* Eliseo Michele RN - 05/22/2023 11:[address] [facility] Telephonic Outreach Provider Action/FYI #1 attempt to contact patient. Contacted for: Routine Telephonic Outreach Contact made with patient: No, left message. Eliseo Michele RN May 22, 2023 11:57 AM documented in this encounterVeterans Health Administration06-27-2023 Miscellaneous Notes* Telephone Encounter - Yue Eric - 05/08/2023 4:24 PM EDT Spoke with patient regarding procedure Sunday, She would like calming medication sent to the pharmacy ( [facility]). She son will drive her. She denies any further questions. documented in this encounterVeterans Health Administration06-27-2023 Instructions* Patient Instructions* Rosmery Acharya RN - 05/08/2023 1:06 PM EDT WOUND CARE INSTRUCTIONS- Florecita Healy Wound location: Right top of foot Continue wearing tubi-air sampler size E to the leg every day. [...] following changes to the Wound Center at [phone] or go to the Emergency Department: Fever [...] Dr. Rc Rodriguez MD/tr/rogelio documented in this encounterVeterans Health Administration06-27-2023 Nurse Note* Rosmery Acharya RN - 05/08/2023 [...] N/A COMPRESSION: Single layer of size E tubi-air sampler to right leg SPECIAL NEEDS: Coordination of care - N/A Emotional support N/A OR set-up N/A Dog Warden N/A Incontinence needs N/A DISCHARGED in stable [...] 5-9, consult the [facility] Rosmery Acharya RN/orgelio documented in this encounterVeterans Health Administration06-27-2023 History of Present illness Narrative* Rc Rodriguez [...] Rc Rodriguez MD Pager: documented in this encounterVeterans Health Administration06-23-2023 Miscellaneous Notes* Telephone Encounter - Zenaida Reynolds LPN - 05/04/2023 11:10 AM EDT Pt. Notified of results , verified next office visit with pt. Pt. Voiced understanding. Zenaida Reynolds LPN * Telephone Encounter - Nevin Fajardo APRN.CNP - 05/04/2023 10:53 AM EDT Please inform pt. that her mammogram looks good. Follow up as scheduled. Thank you. Nevin Fajardo APRN.CNP documented in this encounterVeterans Health Administration06-23-2023 Miscellaneous Notes* Letter - Mammography Coordinator - 05/04/2023 10:34 AM EDT May 07, 2023 PID: [id number] Florecita Healy [address] [place] [id number] Dear Ms. Healy, We are pleased to [...] report [facility] permanent medical record and are available for your continuing care. Thank you for allowing us to help in meeting your health care needs. Sincerely, Dr. Kelley Interpreting Radiologist [facility] (Normal over 40) documented in this encounterVeterans Health Administration06-21-2023 Instructions* Patient Instructions* Rosie Syed APRN.CNP - 05/02/2023 10:12 AM EDT Increase the amlodipine to 5 mg daily. 2. Recheck in 3-4 weeks. documented in this encounterVeterans Health Administration06-21-2023 History of Present illness Narrative* Rosie Syed [...] Osteopenia Psoriasis Pulmonary nodule Dr[facility] Dawn Sepsis ([facility]) 11/05/2022 Snoring PAST SURGICAL HISTORY Procedure [...] agrees with the plan. documented in this encounterVeterans Health Administration06-05-2023 History of Present illness Narrative* Guerda Francisco [...] daily weight at home? 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 Routed to: No Action Needed LINDA Education Provided this Outreach: No Guerda Francisco RN April 16, 2023 10:13 AM documented in this encounterVeterans Health Administration05-11-2023 History of Present illness Narrative* Nevin FajardoCHANDLER.CALENDER WORKER HELPER - 03/22/2023 2:08 PM EDT Chief Complaint [...] ICD10: Z85.3 (primary diagnosis) pT1c N0 MX ER/GA positive HER2 non-amplified stage I invasive ductal [...] visit. Nevin Fajardo APRN.KAITLYN documented in this encounterVeterans Health Administration05-08-2023 History of Present illness Narrative* Guerda Francisco RN - 03/19/2023 11:49 AM EDT [facility] Telephonic Outreach Provider Roberta/SILVIA Left VM. I also want to remind you about Healthy at Home. You may call [phone] seven (7) days a week from 8am-8pm for any need which arises. This includes weekends and holidays. A registered nurse will answer questions, help schedule appointments, place refill orders and ensure you receive the care necessary. Contacted for: Routine Telephonic Outreach Contact made with patient: No, left message. Guerda Francisco RN March 19, 2023 11:53 AM documented in this encounterVeterans Health Administration05-02-2023 History of Present illness Narrative* Fredi Pierce [...] Osteopenia Psoriasis Pulmonary nodule Dr[facility] Dawn Sepsis ([facility]) 11/05/2022 Snoring PAST SURGICAL HISTORY Procedure [...] entered by the nurse and reviewed by ms Nursing Notes: Shobha Arce 03/13/2023 10:52 AM [...] Fredi Pierce III, MD documented in this encounterVeterans Health Administration05-02-2023 Nurse Note* Shobha Arce - 03/13/2023 10:48 [...] Colonoscopy: 05/30/2022 Shobha Arce documented in this encounterVeterans Health Administration04-24-2023 Miscellaneous Notes* Telephone Encounter - Sheron French [...] waiting over the weekend documented in this encounterVeterans Health Administration04-21-2023 History of Present illness Narrative* Tu Canela [...] vascular. States that is wearing her tubi dowel pin man when at home but can't wear them [...] Abs Lymph 1.00 - 4.00 k/uL 1.00 Stoddard% % 9.3 Abs Stoddard <0.87 k/uL 0.50 Eosin% % 0.6 Abs [...] of upper-outer quadrant of left female breast ([facility]) Chronic obstructive pulmonary disease (COPD) ([facility]) Chronic pain 06/03/2012 sees pain management. Diarrhea 11/06/2022 Hyperlipidemia 06/03/2012 Hypertension 06/03/2012 Nausea & vomiting 11/06/2022 Osteopenia Psor[address] Pulmonary nodule [address] Dawn Sepsis ([facility]) 11/05/2022 Snoring PAST SURGICAL HISTORY Procedure [...] with Bernard or Rosie. documented in this encounterVeterans Health Administration04-18-2023 Miscellaneous Notes* Telephone Encounter - Yue Reyes [...] an update once received documented in this encounterVeterans Health Administration04-07-2023 Miscellaneous Notes* Telephone Encounter - CURLY Hassan [...] directly with physician response. documented in this encounterVeterans Health Administration04-06-2023 Miscellaneous Notes* Telephone Encounter - Guerda Francisco RN - 02/15/2023 2:36 PM EDT Requestor:Patient Patient is identified by name and birthdate: Yes Patient reminded to check with pharmacy in 24-48 hours: Yes Prescriber Verified: Yes Pharmacy benefits have been verified: No [facility]acy [facility] in [facility]: Yes Is medication controlled substance: No Medication [...] by mouth once daily. documented in this encounterVeterans Health Administration04-06-2023 Miscellaneous Notes* Telephone Encounter - Guerda Francisco [...] every Sunday and Sunday documented in this encounterVeterans Health Administration04-06-2023 History of Present illness Narrative* Guerda Francisco [...] Dept Phone 03/02/2023 10:00 AM TU CANELA [facility] [phone] States she needs refill of lisinopril and levothyroxine before OV. Will pend in separate refill encounters. Wondering if she needs any labs drawn before OV 02/21/23? Will send telephone encounter to PCP to advise. I also want to remind you about Healthy at Home. You may call [phone] seven (7) days a week from 8am-8pm [...] like to speak with a social work forensics team director to help give you support for any [...] you up for automated weekly questionnaires through [employer]. This is an easy way for us [...] PtOutreach and End outreach. documented in this encounterVeterans Health Administration04-04-2023 History of Present illness Narrative* Jannie Proctor DO - 02/13/2023 10:33 AM EDT This office note has been dictated. Jannie Proctor DO * Jannie Proctor DO - 02/13/2023 12:00 AM EDT NAME: FLORECITA HEALY [facility] NO: [id number] DATE OF SERVICE: 02/13/2023 Subjective: Ms. Healy [...] 1.1. She had venous reflux testing in [place] in April and she had bilateral GSV [...] schedule. Jannie Proctor D.O. KB/089 Audio #: [id number] Date Dictated: 02/13/2023 08:28:09 Date Typed: 02/19/2023 07:54:47 Date Revised: documented in this encounterVeterans Health Administration03-09-2023 Miscellaneous Notes* Addendum Note - Tu Canela MD - 01/18/2023 4:54 PM ESTAddended by: TU CANELA on: 01/18/2023 04:54 PM Modules accepted: Orders documented in this encounterVeterans Health Administration03-09-2023 History of Present illness Narrative* Tu Canela [...] this appointment? No Reason for Outreach [facility] Payer: Payor: [employer] MEDICARE / Plan: [employer] PLUS / Product Type: HMO / Care Gap Reviewed:: Follow-up appointment Reminder: Reminder note to check Health Maintenance for items below Health Maintenance items due: BP CONTROLLED (<130/80) Never done DTAP,TDAP,TD(2 - Tdap) due on 09/03/2022 ADVANCE DIRECTIVE DISCUSSION due on 11/12/2022 DEPRESSION ASSESSMENT Never done Navigation Signature: Kendra Warner [facility] Navigator January 18, 2023 2:56 PM * Linette Hooper RN - 01/18/2023 8:49 AM EST [facility] Enrollment Provider Action/FYI: H@H Pt dos not log into [employer]. Pt needs PCP follow up when available. Sent to [place] In addition to what I have discussed, I am providing you with a phone number that gives you one call access to nursing, appointments, and other valuable resources. I am also sending this information to your [employer]. Please take the time to write this number down . This number is available 7 days a week from 8am-8pm. Patient referred by: [facility] Caren Contact made with patient: Yes - Patient identified by name and . Discussed care with patient Kev this is Linette Hooper RN and I am calling from Tu Canela MD office at the [facility]. I am a RN Lighting Fixtures Decorator with our [facility] Chronic Disease Management program. [...] few questions once a week through your [employer] account. It will automatically show up for [...] program. No, reason: I don't like using [employer] Closing: Patient accepts telephonic outreach. LINDA Education [...] from today s date) documented in this encounterVeterans Health Administration03-07-2023 History of Present illness Narrative* Rc Rodriguez [...] Rc Rodriguez MD Pager: documented in this encounterVeterans Health Administration03-07-2023 Instructions* Patient Instructions* Parul Patterson RN - [...] following changes to the Wound Center at [phone] or go to the Emergency Department: Fever [...] . Rc Rodriguez MD/JACKSON/SUYAPA documented in this encounterVeterans Health Administration03-07-2023 Nurse Note* Parul Patterson RN - 01/16/2023 [...] COMPRESSION: SPECIAL NEEDS: Coordination of care - [facility] faxed for supplies Emotional support N/A OR set-up N/A Dog Warden N/A Incontinence needs N/A DISCHARGED in stable [...] to ANY of questions 5-9, consult the [facility] Parul Patterson RN/ZCarlos documented in this encounterVeterans Health Administration02-28-2023 History of Present illness Narrative* Jannie Proctor DO - 01/09/2023 1:13 PM EST Images from the original note were not included. [facility] DEPARTMENT OF VASCULAR SURGERY OUTPATIENT VISIT DATE January 09, 2023 OUTPATIENT VISIT TYPE CONSULTATION SERVICE DATE: 01/09/2023 SERVICE TIME: 1:13 PM PRIMARY CARE PHYSICIAN: Tu Canela MD REFERRING PROVIDER: Jannie Proctor [id number] [facility] [id number] Consult requested for an opinion regarding the [...] breast (HCC) Chronic obstructive pulmonary disease (COPD) ([facility]) Chronic pain 06/03/2012 sees pain management. Diarrhea 11/06/2022 Hyperlipidemia 06/03/2012 Hypertension 06/03/2012 Nausea & vomiting 11/06/2022 Osteopenia Psor[address] Pulmonary nodule Dr. Dawn Sepsis ([facility]) 11/05/2022 Snoring PAST SURGICAL HISTORY Procedure [...] 2023 TIME: 1:13 PM documented in this encounterVeterans Health Administration02-07-2023 Instructions* Patient Instructions* Britt Ordoñez RN - [...] following changes to the Wound Center at [phone] or go to the Emergency Department: Fever or chills Increased drainage Green or yellow drainage Foul odor Increased pain Hardness around the wound Redness, warmth or swelling of the surrounding tissue Color change to the wound When contacting the wound center at the ([phone]): Leave a message that includes your full [...] Dr Rodriguez in 4 weeks at the [facility]. No need for antibiotics at this time. Follow up with Dr Proctor, vascular doctor, as scheduled 01/09/23 Please follow up with your PCP to have your Blood Pressure rechecked Continue aggressive nutritional support to assist wound healing Wound care supplies were ordered through [facility]. They will attempt to call you once. If you miss thecall, or do not hear from them within 1-2 days, please call the phone number provided: . [facility] [phone] Rc Rodriguez MD/trent[place]/suyapa documented in this encounterVeterans Health Administration02-07-2023 History of Present illness Narrative* Rc Rodriguez [...] surgical options and evaluation for surgery at [facility] which is the patient's choice Discussed with [...] Rc Rodriguez MD Pager: documented in this encounterVeterans Health Administration02-07-2023 Nurse Note* Britt Ordoñez RN - 12/19/2022 [...] supplies Emotional support N/A OR set-up N/A Dog Warden N/A Incontinence needs N/A DISCHARGED in stable condition to: home ambulatory with son Global surgical period dates if applicable: N/A PLAN/ORDERS: Return to the Wound Center to see Dr Rodriguez in 4 weeks at the [facility]. No need for antibiotics at this time. Follow up with Dr Proctor, vascular doctor, as scheduled 01/09/23 Please follow up with your PCP to have your Blood Pressure rechecked Continue aggressive nutritional support to assist wound healing Wound care supplies were ordered through [facility]. They will attempt to call you once. If you miss thecall, or do not hear from them within 1-2 days, please call the phone number provided: . [facility] [phone] EDUCATION: The patient/family was instructed how to [...] Debridement of right foot wounds. Sign In: 8441 A Moment of CARE was completed. Personnel directly involved with the procedure wore the appropriate PPE (Personal Protective Equipment). Patient/Surrogate Stated/Verified: PATIENT VERIFIED(optional for EMERGENT procedures): Patient name, Date of , Relevant allergies, and The intended procedure Time Out Communication: 7441 Intended patient and procedure match the source documents. Consent documented and matches the intended procedure. Sign Out: 1381 SIGN OUT (optional for EMERGENT procedures): No [...] Center Britt Ordoñez RN/suyapa documented in this encounterVeterans Health Administration02-01-2023 Miscellaneous Notes* Telephone Encounter - Isis Sena [...] We can cancel it. documented in this encounterVeterans Health Administration01-05-2023 History of Present illness Narrative* Zenia Richter RN - 11/16/2022 3:38 PM EST TRANSITIONAL CARE MANAGEMENT (TCM) COMMUNITY MONITORING PROGRAM Provider Action/FYI: Pt states she is feeling better Denies CP, SOB, N/V, fever or chills Sister will clam picker knee scooter today after 5 at DDM Declines PCP follow up Denies questions or concerns at this time Apply bacitracin to lubricate skin and some of the skin will peel. Clean and dry and use postop shoe for weightbearing as tolerated and the knee walker. MATY 12/11 SUMMARY: Pt discharged from [facility] on 11/15/22. Admitted for: Cellulitis of right lower leg Contact made with patient: Yes Hi my name is Zenia Richter RN and I am calling [facility] the [facility] on behalf of your PCP, Tu Canela [...] like to speak with a social work forensics team director to help give you support for any [...] I will send your request to a cylinder press feeder who will contact and assist you with [...] -: No Zenia Richter RN, BSN Transitional Lighting Fixtures Decorator [facility] * Zenia Richter RN - 11/16/2022 8:46 AM EST TCM Home Visit Referral Source of Stratification: [facility] Hospital Admission Status: Discharged Readmission Risk [...] walker. MATY 12/11 SUMMARY: Pt discharged from [facility] on 11/15/22. Admitted for: Cellulitis of right lower leg Contact made with patient: No - next outreach attempt will be on next day Outreach ended documented in this encounterVeterans Health Administration12-26-2022 History of Past illness Narrative* Problem Noted [...] Overview: Added automatically from request for surgery [id number] Colon cancer screening 12/07/2016 7 Chronic midline [...] pain management for back injury, neck arthritis- [facility] documented as of this encounter (statuses as of 11/17/2022) [facility] History of Past illness Narrative* Problem Noted [...] Overview: Added automatically from request for surgery [id number] Colon cancer screening 12/07/2016 7 Chronic midline [...] pain management for back injury, neck arthritis- [facility] documented as of this encounter (statuses as of 12/13/2022) [facility] History of Past illness Narrative* Problem Noted [...] Overview: Added automatically from request for surgery [id number] Colon cancer screening 12/07/2016 7 Chronic midline [...] pain management for back injury, neck arthritis- [facility] documented as of this encounter (statuses as of 12/20/2022) [facility] History of Past illness Narrative* Problem Noted [...] Overview: Added automatically from request for surgery [id number] Colon cancer screening 12/07/2016 7 Chronic midline [...] pain management for back injury, neck arthritis- [facility] documented as of this encounter (statuses as of 01/17/2023) [facility] History of Past illness Narrative* Problem Noted [...] Overview: Added automatically from request for surgery [id number] Colon cancer screening 12/07/2016 7 Chronic midline [...] [facility] (statuses as of 01/18/2023) [facility] of Past illness Narrative* Problem Noted [...] Overview: Added automatically from request for surgery [id number] Colon cancer screening 12/07/2016 7 Chronic midline [...] pain management for back injury, neck arthritis- [facility] documented as of this encounter (statuses as of 01/29/2023) [facility] of Past illness Narrative* Problem Noted [...] Overview: Added automatically from request for surgery [id number] Colon cancer screening 12/07/2016 7 Chronic midline [...] pain management for back injury, neck arthritis- [facility] documented as of this encounter (statuses as of 02/15/2023) [facility] of Past illness Narrative* Problem Noted [...] Overview: Added automatically from request for surgery [id number] Colon cancer screening 12/07/2016 7 Chronic midline [...] pain management for back injury, neck arthritis- [facility] documented as of this encounter (statuses as of 02/15/2023) [facility] of Past illness Narrative* Problem Noted [...] Overview: Added automatically from request for surgery [id number] Colon cancer screening 12/07/2016 7 Chronic midline [...] pain management for back injury, neck arthritis- [facility] documented as of this encounter (statuses as of 02/16/2023) [facility] of Past illness Narrative* Problem Noted [...] Overview: Added automatically from request for surgery [id number] Colon cancer screening 12/07/2016 7 Chronic midline [...] pain management for back injury, neck arthritis- [facility] documented as of this encounter (statuses as of 02/16/2023) [facility] of Past illness Narrative* Problem Noted [...] Overview: Added automatically from request for surgery [id number] Colon cancer screening 12/07/2016 7 Chronic midline [...] [facility] as [facility] this encounter (statuses as of 02/16/2023) [facility] of Past illness Narrative* Problem Noted [...] Overview: Added automatically from request for surgery [id number] Colon cancer screening 12/07/2016 7 Chronic midline [...] pain management for back injury, neck arthritis- [facility] documented as of this encounter (statuses as of 02/27/2023) [facility] of Past illness Narrative* Problem Noted [...] Overview: Added automatically from request for surgery [id number] Colon cancer screening 12/07/2016 7 Chronic midline [...] pain management for back injury, neck arthritis- [facility] documented as of this encounter (statuses as of 03/01/2023) [facility] of [facility] illness Narrative* Problem Noted [...] Overview: Added automatically from request for surgery [id number] Colon cancer screening 12/07/2016 7 Chronic midline [...] pain management for back injury, neck arthritis- [facility] documented as of this encounter (statuses as of 03/02/2023) [facility] of [facility] illness Narrative* Problem Noted [...] Overview: Added automatically from request for surgery [id number] Colon cancer screening 12/07/2016 7 Chronic midline [...] pain management for back injury, neck arthritis- [facility] documented as of this encounter (statuses as of 03/05/2023) [facility] of [facility] illness Narrative* Problem Noted [...] Overview: Added automatically from request for surgery [id number] Colon cancer screening 12/07/2016 7 Chronic midline [...] pain management for back injury, neck arthritis- [facility] documented as of this encounter (statuses as of 03/13/2023) [facility] illness Narrative* Problem Noted [...] Overview: Added automatically from request for surgery [id number] Colon cancer screening 12/07/2016 7 Chronic midline [...] [facility] as [facility] this encounter (statuses as of 03/19/2023) [facility] illness Narrative* Problem Noted [...] Overview: Added automatically from request for surgery [id number] Colon cancer screening 12/07/2016 7 Chronic midline [...] pain management for back injury, neck arthritis- [facility] documented as of this encounter (statuses as of 03/23/2023) [facility] of [facility] illness Narrative* Problem Noted [...] Overview: Added automatically from request for surgery [id number] Colon cancer screening 12/07/2016 7 Chronic midline [...] pain management for back injury, neck arthritis- [facility] documented as of this encounter (statuses as of 04/16/2023) [facility] of [facility] illness Narrative* Problem Noted [...] Overview: Added automatically from request for surgery [id number] Colon cancer screening 12/07/2016 7 Chronic midline [...] pain management for back injury, neck arthritis- [facility] documented as of this encounter (statuses as of 05/03/2023) [facility] of [facility] illness Narrative* Problem Noted [...] Overview: Added automatically from request for surgery [id number] Colon cancer screening 12/07/2016 7 Chronic midline [...] pain management for back injury, neck arthritis- [facility] documented as of this encounter (statuses as of 05/04/2023) [facility] illness Narrative* Problem Noted [...] Overview: Added automatically from request for surgery [id number] Colon cancer screening 12/07/2016 7 Chronic midline [...] [facility] as [facility] this encounter (statuses as of 05/08/2023) [facility] of [facility] illness Narrative* Problem Noted [...] Overview: Added automatically from request for surgery [id number] Colon cancer screening 12/07/2016 7 Chronic midline [...] pain management for back injury, neck arthritis- [facility] documented as of this encounter (statuses as of 05/09/2023) [facility] of [facility] illness Narrative* Problem Noted [...] Overview: Added automatically from request for surgery [id number] Colon cancer screening 12/07/2016 7 Chronic midline [...] pain management for back injury, neck arthritis- [facility] documented as of this encounter (statuses as of 05/09/2023) [facility] of [facility] illness Narrative* Problem Noted [...] Overview: Added automatically from request for surgery [id number] Colon cancer screening 12/07/201612/07 Chronic midline low [...] pain management for back injury, neck arthritis- [facility] documented as of this encounter (statuses as of 05/22/2023) [facility] illness Narrative* Problem Noted [...] Overview: Added automatically from request for surgery [id number] Colon cancer screening 12/07/201612/07 Chronic midline low [...] pain management for back injury, neck arthritis- [facility] documented as of this encounter (statuses as of 05/23/2023) [facility] illness Narrative* Problem Noted [...] Overview: Added automatically from request for surgery [id number] Colon cancer screening 12/07/201612/07 Chronic midline low [...] [facility] (statuses as of 05/29/2023) [facility] of [facility] illness Narrative* Problem Noted [...] Overview: Added automatically from request for surgery [id number] Colon cancer screening 12/07/201612/07 Chronic midline low back macrial n without sciatica 08/23/2016 02/28/2017 Pain of [...] pain management for back injury, neck arthritis- [facility] documented as of this encounter (statuses as of 05/29/2023) [facility] illness Narrative* Problem Noted [...] Overview: Added automatically from request for surgery [id number] Colon cancer screening 12/07/201612/07 Chronic midline low [...] pain management for back injury, neck arthritis- [facility] documented as of this encounter (statuses as of 06/26/2023) [facility] Narrative* Problem Noted [...] Overview: Added automatically from request for surgery [id number] Colon cancer screening 12/07/201612/07 Chronic midline low [...] pain management for back injury, neck arthritis- [facility] documented as of this encounter (statuses as of 06/27/2023) [facility] illness Narrative* Problem Noted [...] Overview: Added automatically from request for surgery [id number] Colon cancer screening 12/07/201612/07 Chronic midline low [...] pain management for back injury, neck arthritis- [facility] documented as of this encounter (statuses as of 07/04/2023) [facility] illness Narrative* Problem Noted [...] Overview: Added automatically from request for surgery [id number] Colon cancer screening 12/07/201612/07 Chronic midline low [...] pain management for back injury, neck arthritis- [facility] documented as of this encounter (statuses as of 07/21/2023) [facility] illness Narrative* Problem Noted [...] Overview: Added automatically from request for surgery [id number] Colon cancer screening 12/07/201612/07 Chronic midline low [...] pain management for back injury, neck arthritis- [facility] documented as of this encounter (statuses as of 07/24/2023) [facility] illness Narrative* Problem Noted [...] Overview: Added automatically from request for surgery [id number] Colon cancer screening 12/07/201612/07 Chronic midline low [...] pain management for back injury, neck arthritis- [facility] documented as of this encounter (statuses as of 08/03/2023) [facility] Narrative* Problem Noted [...] Overview: Added automatically from request for surgery [id number] Colon cancer screening 12/07/201612/07 Chronic midline low [...] pain management for back injury, neck arthritis- [facility] documented as of this encounter (statuses as of 08/18/2023) [facility] Narrative* Problem Noted [...] Overview: Added automatically from request for surgery [id number] Colon cancer screening 12/07/201612/07 Chronic midline low [...] pain management for back injury, neck arthritis- [facility] documented as of this encounter (statuses as of 09/24/2023) [facility] Narrative* Problem Noted [...] Overview: Added automatically from request for surgery [id number] Colon cancer screening 12/07/201612/07 Chronic midline low [...] pain management for back injury, neck arthritis- [facility] documented as of this encounter (statuses as of 09/25/2023) [facility] Narrative* Problem Noted [...] Overview: Added automatically from request for surgery [id number] Colon cancer screening 12/07/201612/07 Chronic midline low [...] pain management for back injury, neck arthritis- [facility] documented as of this encounter (statuses as of 10/24/2023) [facility] Narrative* Problem Noted [...] Overview: Added automatically from request for surgery [id number] Colon cancer screening 12/07/201612/07 Chronic midline low [...] pain management for back injury, neck arthritis- [facility] documented as of this encounter (statuses as of 10/25/2023) [facility] Narrative* Problem Noted [...] Overview: Added automatically from request for surgery [id number] Colon cancer screening 12/07/201612/07 Chronic midline low [...] pain management for back injury, neck arthritis- [facility] documented as of this encounter (statuses as of 12/18/2023) [facility] illness Narrative* Problem Noted [...] Overview: Added automatically from request for surgery [id number] Colon cancer screening 12/07/201612/07 Chronic midline low [...] pain management for back injury, neck arthritis- [facility] documented as of this encounter (statuses as of 01/09/2024) [facility] of [facility] illness Narrative* Problem Noted [...] Overview: Added automatically from request for surgery [id number] Colon cancer screening 12/07/201612/07 Chronic midline low [...] pain management for back injury, neck arthritis- [facility] documented as of this encounter (statuses as of 01/10/2024) [facility] Narrative* Problem Noted [...] Overview: Added automatically from request for surgery [id number] Colon cancer screening 12/07/201612/07 Chronic midline low [...] pain management for back injury, neck arthritis- [facility] documented as of this encounter (statuses as of 01/24/2024) [facility] of [facility] illness Narrative* Problem Noted [...] Overview: Added automatically from request for surgery [id number] Colon cancer screening 12/07/201612/07 Chronic midline low [...] pain management for back injury, neck arthritis- [facility] documented as of this encounter (statuses as of 01/25/2024) [facility] illness Narrative* Problem Noted [...] Overview: Added automatically from request for surgery [id number] Colon cancer screening 12/07/201612/07 Chronic midline low [...] pain management for back injury, neck arthritis- [facility] documented as of this encounter (statuses as of 01/25/2024) [facility] Narrative* Problem Noted [...] Overview: Added automatically from request for surgery [id number] Colon cancer screening 12/07/201612/07 Chronic midline low [...] pain management for back injury, neck arthritis- [facility] documented as of this encounter (statuses as of 02/21/2024) [facility] illness Narrative* Problem Noted [...] Overview: Added automatically from request for surgery [id number] Colon cancer screening 12/07/201612/07 Chronic midline low [...] pain management for back injury, neck arthritis- [facility] documented as of this encounter (statuses as of 02/21/2024) [facility]11[facility] Miscellaneous Notes* Telephone Encounter - Sameera Frederick LPN - 10/03/2022 9:24 AM EST Emiliana from [employer] calling patient medicare assessment was completed today. Provider can go to provider portal if wants to view it. documented in this encounterVeterans Health Administration09-13-2022 Miscellaneous Notes* Telephone Encounter - Janey Tamayo [...] and up to date documented in this encounterVeterans Health Administration09-13-2022 History of Present illness Narrative* Jelena Martin [...] and up to date documented in this encounterVeterans Health Administration08-29-2022 Miscellaneous Notes* Telephone Encounter - Mile Crocker [...] daily and recheck in 2 weeks at [place]. * Telephone Encounter - Natalia Hudson LPN [...] she would be contacted after review by metal control worker. Natalia Hudson LPN documented in this encounterVeterans Health Administration08-22-2022 Miscellaneous Notes* Telephone Encounter - Babs Mcfarlane [...] the lab. Dr Canela documented in this encounterVeterans Health Administration08-03-2022 History of Present illness Narrative* Tu Canela [...] mass or adenopathy Fatty liver Splenic enlargement Gas Furnace Installer: PRINCE Transcribe Date/Time: May 17 2022 3:43P Dictated by : TANGELA MCKEON MD This examination was interpreted and the report reviewed and electronically signed by: TANGELA MCKEON MD on May 17 2022 3:53PM EST Results-Findings * * *Final Report* * * DATE OF EXAM: May 16 2022 3:28PM [facility] 0530 - CT ABD/PEL W IVCON [...] three months and prn. documented in this encounterVeterans [facility] History of Present illness Narrative* Nevin Fajardo APRN.CALENDER WORKER HELPER - 06/09/2022 10:04 AM EDT Chief Complaint [...] done last week by Dr. Borrero at [facility]. 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 Nevin Fajardo APRN.KAITLYN documented in this encounterV[facility]07-27-2022 History of Present illness Narrative* Tu Canela [...] mass or adenopathy Fatty liver Splenic enlargement Gas Furnace Installer: PRINCE Transcribe Date/Time: May 17 2022 3:43P Dictated by : TANGELA MCKEON MD This examination was interpreted and the report reviewed and electronically signed by: TANGELA MCKEON MD on May 17 2022 3:53PM EST Results-Findings * * *Final Report* * * DATE OF EXAM: May 16 2022 3:28PM [facility] 0530 - CT ABD/PEL W IVCON [...] Tissues: No significant finding. Lower thorax: Unremarkable. Caustics Loader (topogram) images: No additional findings. MEDICATIONS: Current [...] her. Tu Canela MD documented in this encounterV[facility]07-06-2022 Miscellaneous Notes* Telephone Encounter - Miracle Anthony [...] discuss more and recheck. documented in this encounterVeterans Health Administration07-05-2022 History of Present illness Narrative* Savanah Sarkar, [...] 2022 TIME: 3:29 PM documented in this encounterVeterans Health Administration06-21-2022 Miscellaneous Notes* Letter - Mammography Coordinator - 05/02/2022 11:37 AM EDT May 02, 2022 PID: [id number] [address] He[address] [place] [address] Dear Ms. Healy, Your recent breast imaging exam on 05/02/2022 showed a possible finding that requires additional imaging studies for a complete evaluation. Most such findings are probably benign (not cancer). If you have a healthcare provider who ordered/prescribed your screening mammogram: Please call [phone] or [phone] to schedule an appointment for your additional [...] and reports [facility] part of [facility] permanent medical [facility], and are available for your continuing care. Thank you for allowing us to help in meeting your health care needs. Sincerely, Dr. Redman Interpreting Radiologist [facility] (Additional imaging) documented in this encounterVeterans Health Administration06-21-2022 Procedure note* Layla Ness - 05/02/2022 9:30 [...] 02, 2022 9:46 AM documented in this encounterVeterans Health Administration05-05-2022 Miscellaneous Notes* Telephone Encounter - Wanda Anthony Ma - 03/16/2022 1:51 PM EDT Referral, demo, and most recent OV faxed to Dr. Borrero's office. Wanda Anthony Ma * Telephone Encounter - Tu Canela MD - 03/16/2022 1:48 PM EDT Placed. * Telephone Encounter - Aneta Griffith RN - 03/16/2022 1:35 PM EDT Patient reports she is scheduled with Dr. Borrero GI, at [facility], on 04-17-22, for a consult for colonoscopy. Asking pcp to send referral, ov notes, and demographics to Dr. Borrero. documented in this encounterVeterans Health Administration05-15-2018 History of Past illness Narrative* Problem Noted Date Resolved Date Chronic midline low back pain without sciatica 0 03/26/2018 07/24/2019 Acute pain of right shoulder 11/29/2017 Low back pain radiating to right lower extremity 11/29/2017 07/24/2019 Chronic pain syndrome 09/27/2017 11/28/2018 Trigger finger, acquired 09/26/2017 019 Overview: Added automatically from request for surgery [id number] Colon cancer screening 12/07/2016 7 Chronic midline [...] pain management for back injury, neck arthritis- [facility] documented as of this encounter (statuses as of 03/16/2022) [facility] History of Past illness Narrative* Problem Noted Date Resolved Date Chronic midline low back pain without sciatica 0 03/26/2018 07/24/2019 Acute pain of right shoulder 11/29/2017 Low back pain radiating to right lower extremity 11/29/2017 07/24/2019 Chronic pain syndrome 09/27/2017 11/28/2018 Trigger finger, acquired 09/26/2017 019 Overview: Added automatically from request for surgery [id number] Colon cancer screening 12/07/2016 7 Chronic midline [...] pain management for back injury, neck arthritis- [facility] documented as of this encounter (statuses as of 05/03/2022) [facility] History of Past illness Narrative* Problem Noted Date Resolved Date Chronic midline low back pain without sciatica 0 03/26/2018 07/24/2019 Acute pain of right shoulder 11/29/2017 Low back pain radiating to right lower extremity 11/29/2017 07/24/2019 Chronic pain syndrome 09/27/2017 11/28/2018 Trigger finger, acquired 09/26/2017 019 Overview: Added automatically from request for surgery [id number] Colon cancer screening 12/07/2016 7 Chronic midline [...] pain management for back injury, neck arthritis- [facility] documented as of this encounter (statuses as of 05/04/2022) [facility] History of Past illness Narrative* Problem Noted Date Resolved Date Chronic midline low back pain without sciatica 0 03/26/2018 07/24/2019 Acute pain of right shoulder 11/29/2017 Low back pain radiating to right lower extremity 11/29/2017 07/24/2019 Chronic pain syndrome 09/27/2017 11/28/2018 Trigger finger, acquired 09/26/2017 019 Overview: Added automatically from request for surgery [id number] Colon cancer screening 12/07/2016 7 Chronic midline [...] [facility]statuses as of 05/17/2022) [facility] History of Past illness Narrative* Problem Noted Date Resolved Date Chronic midline low back pain without sciatica 0 03/26/2018 07/24/2019 Acute pain of right shoulder 11/29/2017 Low back pain radiating to right lower extremity 11/29/2017 07/24/2019 Chronic pain syndrome 09/27/2017 11/28/2018 Trigger finger, acquired 09/26/2017 019 Overview: Added automatically from request for surgery [id number] Colon cancer screening 12/07/2016 7 Chronic midline [...] [facility] (statuses as of 05/17/2022) [facility] History of Past illness Narrative* Problem Noted Date Resolved Date Chronic midline low back pain without sciatica 0 03/26/2018 07/24/2019 Acute pain of right shoulder 11/29/2017 Low back pain radiating to right lower extremity 11/29/2017 07/24/2019 Chronic pain syndrome 09/27/2017 11/28/2018 Trigger finger, acquired 09/26/2017 019 Overview: Added automatically from request for surgery [id number] Colon cancer screening 12/07/2016 7 Chronic midline [...] pain management for back injury, neck arthritis- [facility] documented as of this encounter (statuses as of 05/17/2022) [facility] History of [facility] illness Narrative* Problem Noted Date Resolved Date Chronic midline low back pain without sciatica 0 03/26/2018 07/24/2019 Acute pain of right shoulder 11/29/2017 Low back pain radiating to right lower extremity 11/29/2017 07/24/2019 Chronic pain syndrome 09/27/2017 11/28/2018 Trigger finger, acquired 09/26/2017 019 Overview: Added automatically from request for surgery [id number] Colon cancer screening 12/07/2016 7 Chronic midline [...] pain management for back injury, neck arthritis- [facility] documented as of this encounter (statuses as of 06/07/2022) [facility] History of Past illness Narrative* Problem Noted Date Resolved Date Chronic midline low back pain without sciatica 0 03/26/2018 07/24/2019 Acute pain of right shoulder 11/29/2017 Low back pain radiating to right lower extremity 11/29/2017 07/24/2019 Chronic pain syndrome 09/27/2017 11/28/2018 Trigger finger, acquired 09/26/2017 019 Overview: Added automatically from request for surgery [id number] Colon cancer screening 12/07/2016 7 Chronic midline [...] [facility] (statuses as of 06/09/2022) [facility] of [facility] illness Narrative* Problem Noted Date Resolved Date Chronic midline low back pain without sciatica 0 03/26/2018 07/24/2019 Acute pain of right shoulder 11/29/2017 Low back pain radiating to right lower extremity 11/29/2017 07/24/2019 Chronic pain syndrome 09/27/2017 11/28/2018 Trigger finger, acquired 09/26/2017 019 Overview: Added automatically from request for surgery [id number] Colon cancer screening 12/07/2016 7 Chronic midline [...] [facility] (statuses as of 06/14/2022) [facility] of [facility] illness Narrative* Problem Noted Date Resolved Date Chronic midline low back pain without sciatica 0 03/26/2018 07/24/2019 Acute pain of right shoulder 11/29/2017 Low back pain radiating to right lower extremity 11/29/2017 07/24/2019 Chronic pain syndrome 09/27/2017 11/28/2018 Trigger finger, acquired 09/26/2017 019 Overview: Added automatically from request for surgery [id number] Colon cancer screening 12/07/2016 7 Chronic midline [...] pain management for back injury, neck arthritis- [facility] documented as of this encounter (statuses as of 06/26/2022) [facility] of [facility] illness Narrative* Problem Noted Date Resolved Date Chronic midline low back pain without sciatica 0 03/26/2018 07/24/2019 Acute pain of right shoulder 11/29/2017 Low back pain radiating to right lower extremity 11/29/2017 07/24/2019 Chronic pain syndrome 09/27/2017 11/28/2018 Trigger finger, acquired 09/26/2017 019 Overview: Added automatically from request for surgery [id number] Colon cancer screening 12/07/2016 7 Chronic midline [...] pain management for back injury, neck arthritis- [facility] documented as of this encounter (statuses as of 07/03/2022) [facility] of [facility] illness Narrative* Problem Noted Date Resolved Date Chronic midline low back pain without sciatica 0 03/26/2018 07/24/2019 Acute pain of right shoulder 11/29/2017 Low back pain radiating to right lower extremity 11/29/2017 07/24/2019 Chronic pain syndrome 09/27/2017 11/28/2018 Trigger finger, acquired 09/26/2017 019 Overview: Added automatically from request for surgery [id number] Colon cancer screening 12/07/2016 7 Chronic midline [...] [facility] (statuses as of 07/25/2022) [facility] History of [facility] illness Narrative* Problem Noted Date Resolved Date Chronic midline low back pain without sciatica 0 03/26/2018 07/24/2019 Acute pain of right shoulder 11/29/2017 Low back pain radiating to right lower extremity 11/29/2017 07/24/2019 Chronic pain syndrome 09/27/2017 11/28/2018 Trigger finger, acquired 09/26/2017 019 Overview: Added automatically from request for surgery [id number] Colon cancer screening 12/07/2016 7 Chronic midline [...] [facility] (statuses as of 07/25/2022) [facility] History of Past illness Narrative* Problem Noted Date Resolved Date Chronic midline low back pain without sciatica 0 03/26/2018 07/24/2019 Acute pain of right shoulder 11/29/2017 Low back pain radiating to right lower extremity 11/29/2017 07/24/2019 Chronic pain syndrome 09/27/2017 11/28/2018 Trigger finger, acquired 09/26/2017 019 Overview: Added automatically from request for surgery [id number] Colon cancer screening 12/07/2016 7 Chronic midline [...] pain management for back injury, neck arthritis- [facility] documented as of this encounter (statuses as of 11/05/2022) [facility]* Diagnosis History of colonic polyps- Primary Personal history of colonic polyps documented in this encounter [facility] noteNo assessment information availableWMarion Hospital Work Phone: Evaluation note* Diagnosis Malignant neoplasm of upper-outer quadrant of left breast in female, estrogen receptor positive (HCC) Encounter for screening mammogram for high-risk patient documented [facility] this encounter [facility]* Diagnosis Malignant neoplasm of upper-outer quadrant of left breast in female, estrogen receptor positive (HCC) Abdominal mass of other site Abdominal or pelvic swelling, mass, or lump, other specified site Intra-abdominal and pelvic swelling, mass and lump, unspecified site documented [facility] this encounter [facility]* Diagnosis Onset Date Resolution Status Bleeding internal hemorrhoids acute Personal history of colonic polyps acute [facility] Work Phone: Evaluation note* Diagnosis Left before treatment completed- Primary Personal history of noncompliance with medical treatment, presenting hazards to health documented [facility] this encounter [facility]* Diagnosis Malignant neoplasm of upper-outer quadrant of left breast in female, estrogen receptor positive (HCC)- Primary documented [facility] encounter [facility]* Diagnosis Primary hypertension- Primary Unspecified essential hypertension Ectatic aorta (HCC) Aortic ectasia, unspecified site Fatty liver 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 Venous insufficiency Unspecified venous (peripheral) insufficiency documented in this encounter [facility] note* Diagnosis Hyponatremia- Primary Hyposmolality and/or hyponatremia documented in this encounter [facility]* Diagnosis Primary hypertension- Primary Unspecified essential hypertension documented [facility] this encounter [facility]* Diagnosis Primary hypertension- Primary Unspecified essential hypertension documented [facility] this [facility]* Diagnosis Cellulitis of right leg- Primary Cellulitis and abscess of leg, except foot Chronic obstructive pulmonary disease, unspecified COPD type (HCC) Essential hypertension, benign Hyperlipidemia, unspecified hyperlipidemia type Psoriasis Other psoriasis Other chronic pain documented [facility]* Diagnosis Cellulitis of right leg- Primary Cellulitis and abscess of leg, except foot Chronic obstructive pulmonary disease, unspecified COPD type (HCC) Essential hypertension, benign Hyperlipidemia, unspecified hyperlipidemia type Psoriasis Other psoriasis Other chronic pain documented [facility]* Diagnosis Venous (peripheral) insufficiency- Primary Unspecified venous (peripheral) insufficiency Peripheral arterial disease (HCC) Peripheral vascular disease, unspecified documented [facility] this [facility]* Diagnosis Primary hypertension Unspecified essential hypertension documented [facility] this encounter [facility]* Diagnosis History of Jovana thyroiditis Personal history of other endocrine, metabolic, and immunity disorders documented [facility] this encounter [facility]* Diagnosis Primary hypertension- Primary Unspecified essential hypertension Hyperlipidemia, unspecified hyperlipidemia type Postoperative hypothyroidism Postsurgical hypothyroidism documented [facility] this [facility]* Diagnosis Primary hypertension Unspecified essential hypertension documented [facility] this [facility]* Diagnosis Symptomatic varicose veins of both lower extremities- Primary Varicose veins of lower extremities with other complications documented [facility]* Diagnosis Hyperglycemia- Primary Other abnormal glucose Venous insufficiency Unspecified venous (peripheral) insufficiency Urinary urgency Urgency of urination Primary hypertension Unspecified essential hypertension Hyperlipidemia, unspecified hyperlipidemia type Urinary retention Retention of urine, unspecified Stage 3a chronic kidney disease (HCC) Postoperative hypothyroidism Postsurgical hypothyroidism Hernia of abdominal wall Ventral hernia, unspecified, without mention of obstruction or gangrene documented [facility] this encounter [facility]* Diagnosis Microscopic hematuria- Primary documented [facility] this encounter [facility]* Diagnosis Hernia of abdominal wall Ventral hernia, unspecified, without mention of obstruction or gangrene [facility]* Diagnosis Personal history of breast cancer- Primary Personal history of malignant neoplasm of breast Encounter for screening mammogram for high-risk patient Stage 3a chronic kidney disease (HCC) documented [facility] this encounter [facility]* Diagnosis Primary hypertension- Primary Unspecified essential hypertension documented [facility] this encounter [facility]* Diagnosis Cellulitis of right leg- Primary Cellulitis and abscess of leg, except foot Chronic obstructive pulmonary disease, unspecified COPD type (HCC) Essential hypertension, benign Hyperlipidemia, unspecified hyperlipidemia type Psoriasis Other psoriasis Other chronic pain Malignant neoplasm of upper-outer quadrant of left breast in female, estrogen receptor positive (HCC) documented [facility] this encounter [facility]* Diagnosis Hernia of abdominal wall- Primary Ventral hernia, unspecified, without mention of obstruction or gangrene [facility]* [facility] Primary hypertension Unspecified essential hypertension [facility]* Diagnosis Primary hypertension- Primary Unspecified essential hypertension documented [facility] this [facility]* Diagnosis Symptomatic varicose veins of both lower extremities- Primary Varicose veins of lower extremities with other complications documented [facility] this encounter [facility]* Diagnosis Encounter for immunization- Primary Need [...] (HCC) documented [facility] this encounter [facility]* Diagnosis Personal history of breast cancer- Primary Personal history of malignant neoplasm of breast Encounter for screening mammogram for high-risk patient [facility] encounter [facility]* Diagnosis Primary hypertension Unspecified essential hypertension History of Jovana thyroiditis Personal history of other endocrine, metabolic, and immunity disorders documented [facility] this encounter [facility]* Diagnosis Primary hypertension Unspecified essential hypertension Chronic pain syndrome documented [facility] this encounter [facility]* Diagnosis Primary hypertension- Primary Unspecified essential hypertension Chronic pain syndrome Multiple thyroid nodules Nontoxic multinodular goiter Hyperglycemia Other abnormal glucose Hyperlipidemia, unspecified hyperlipidemia type documented [facility] this encounter [facility]* Diagnosis Personal history of breast cancer Personal history of malignant neoplasm of breast Encounter for screening mammogram for high-risk patient documented [facility] this encounter [facility]* Diagnosis Personal history of breast cancer- Primary Personal history of malignant neoplasm of breast Encounter for screening mammogram for high-risk patient documented [facility] this encounter [facility]* Diagnosis Chronic pain syndrome documented [facility] this encounter [facility]* Diagnosis Primary hypertension- Primary Unspecified essential hypertension documented [facility] this encounter [facility]* Diagnosis Primary hypertension- Primary Unspecified essential hypertension documented [facility] this encounter [facility]* Diagnosis Multiple thyroid nodules- Primary Nontoxic multinodular goiter Multiple thyroid nodules Nontoxic multinodular goiter documented [facility] this encounter [facility]* Diagnosis Acute right ankle pain Localized edema Edema Edema, unspecified type documented [facility] this encounter [facility]* Diagnosis Primary hypertension- Primary Unspecified essential hypertension Need for influenza vaccination Need for prophylactic vaccination and inoculation against influenza Eustachian tube dysfunction, bilateral documented [facility] this encounter [facility]* Diagnosis Chronic pain syndrome documented [facility] this encounter [facility]* Diagnosis Primary hypertension- Primary Unspecified essential hypertension Leg swelling Swelling of limb Postoperative hypothyroidism Postsurgical hypothyroidism Dry skin Other specified disease of sebaceous glands documented [facility] this encounter [facility]* Diagnosis Acute left-sided weakness [R53.1]- Primary Hemiplegia, unspecified, affecting unspecified side documented [facility] this encounter [facility]* Diagnosis Encounter for support and coordination of transition of care- Primary [facility]* Diagnosis Ischemic stroke (HCC)- Primary documented [facility] this encounter [facility]* Diagnosis Ischemic stroke (HCC)- Primary Primary hypertension Unspecified essential hypertension Lung nodules Other nonspecific abnormal finding of lung field Tobacco abuse Tobacco use disorder [facility]* Diagnosis Lacunar stroke (HCC)- Primary Unspecified cerebral artery occlusion with cerebral infarction Primary hypertension Unspecified essential hypertension Smoking Tobacco use disorder Hyperlipidemia, unspecified hyperlipidemia type documented [facility] this encounter [facility]* Diagnosis Need for follow-up by older adult social work specialist- Primary Encounter for support and coordination of transition of care documented [facility] this encounter [facility]* Diagnosis Low back pain without sciatica, unspecified back pain laterality, unspecified chronicity [facility] Diagnosis Primary hypertension- Primary Unspecified essential hypertension History of ischemic stroke Chronic pain syndrome Leg swelling Swelling of limb Acute cystitis without hematuria Acute cystitis documented [facility] this encounter [facility] Diagnosis Acute cystitis without hematuria Acute cystitis Chronic pain syndrome History of Jovana thyroiditis Personal history of other endocrine, metabolic, and immunity disorders documented [facility] this encounter [facility] Diagnosis Ischemic stroke (HCC)- Primary Other [...] Shortness of breath [facility] Diagnosis Other cough SOB (shortness of breath) Shortness of breath documented [facility] Diagnosis Anemia, unspecified type- Primary Congestive heart failure, unspecified HF chronicity, unspecified heart failure type (HCC) [facility] Diagnosis Hemiparesis affecting left side as [...] in sustained remission [facility] Diagnosis Anemia, unspecified type- Primary documented [facility] Diagnosis Chronic left-sided thoracic back pain documented [facility] Diagnosis Symptomatic varicose veins, bilateral- Primary Venous insufficiency Unspecified venous (peripheral) insufficiency documented in this encounter [facility] note* Diagnosis Ischemic stroke (HCC)- Primary Anemia, unspecified type Congestive heart failure, unspecified HF chronicity, unspecified heart failure type (HCC) Hypothyroidism, unspecified type Primary hypertension Unspecified essential hypertension Stage 3a chronic kidney disease (HCC) Chronic pain syndrome Chronic midline thoracic back pain SOB (shortness of breath) Shortness of breath [facility] Diagnosis Symptomatic varicose veins of both lower extremities- Primary Varicose veins of lower extremities with other complications [facility]* Diagnosis Essential (primary) hypertension- Primary Unspecified essential hypertension Chronic pain syndrome Chronic right shoulder pain Pain in joint, shoulder region Hyperlipidemia, unspecified hyperlipidemia type Long-term current use of thyroid hormone replacement therapy Personal history of transient ischemic attack (TIA), and cerebral infarction without residual deficits Symptomatic varicose veins, unspecified laterality documented in this encounter [facility] note* Diagnosis Personal history of breast cancer Personal history of malignant neoplasm of breast Encounter for screening mammogram for high-risk patient documented in this encounter [facility] note* Diagnosis Symptomatic varicose veins of both lower extremities- Primary Varicose veins of lower extremities with other complications documented in this encounter [facility] note* Diagnosis Symptomatic varicose veins of both lower extremities- Primary Varicose veins of lower extremities with other complications [facility] Inst[facility] CT chest negative for PE. COVID changes noted. Labs was only significant for potassium 3.3 with oral replacement. Continue oral fluids at home, adjunct therapies as discussed for your cough symptoms. Stops your tobacco use. Follow-up with your doctor.[facility] Work Phone: Reason for referral (narrative)* Diagnostic Procedure Only (Routine) - Closed Specialty Diagnoses / Procedures Referred By Griselda french Referred To Contact [facility] Diagnoses Malignant neoplasm of upper-outer quadrant of left breast in female, estrogen receptor positive (HCC) Encounter for screening mammogram for high-risk patient Procedures TITO SCREENING SCREENING MAMMOGRAPHY BI 2-VIEW BREAST INC Nevin Tilley, CHANDLER.CALENDER WORKER HELPER [address] [place] [address] [facility] [address] [place] [address] Referral ID Status Reason Start Date Expiration Date V isits Requested Visits Authorized [id number] Closed Auto-Generate d Referral 01/05/2022 02/04/2023 1 1 [facility] for referral (narrative)* Diagnostic Procedure Only (Routine) - Authorized Specialty Diagnoses / Procedures Referred By Contac t Referred To Contact [facility] Diagnoses Renal cyst Procedures US KIDNEY/BLADDER US RETROPERITONEAL REAL TIME W/IMAGE COMPLETE Tu Canela MD [address] [place] [address] [facility] Referral ID Status Reason Start Date Expiration Date Visits Requested Visits Authorized [id number] Authorized Auto-Generat ed Referral 12/15/2022 07/14/2023 1 1 [facility] for referral (narrative)* Outpatient Procedure (Routine) - Authorized Specialty Diagnoses / Procedures Referred By Contac t Referred To Contact [facility] Diagnoses Peripheral arterial disease (HCC) Procedures PVR ANK/DAUGHERTY/TOE FRANCISCO VAS LAB NON-INVAS PHYSIOLOGIC STD EXTREMITY ART 2 LEVEL Jannie Proctor DO [address] [place] [address] [facility] [address] [address] Referral ID Status Reason Start Date Expiration Date Visits Requested Visits Authorized [id number] Authorized Auto-Generat ed Referral 01/09/2023 01/09/2024 1 1 * Outpatient Procedure (Routine) - Pending Review Specialty Diagnoses / Procedures Referred By Contac t Referred To Contact [facility] Diagnoses Venous (peripheral) insufficiency Procedures US VENOUS INCOMPETENCY [facility] DUP-SCAN XTR VEINS COMPLETE BILATERAL STUDY Jannie Proctor DO [address] [place] [address] [facility] [address] [place] [address] Referral ID Status Reason Start Date Expiration Date Visits Requested Visits Authorized [id number] Pending Review Auto-Generat ed Referral 01/09/2023 01/09/2024 1 1 [facility] for referral (narrative)* Diagnostic Procedure Only (Routine) - Authorized Specialty Diagnoses / Procedures Referred By Contac t Referred To Contact [facility] Diagnoses Personal history of breast cancer Encounter for screening mammogram for high-risk patient Procedures TITO SCREENING SCREENING MAMMOGRAPHY BI 2-VIEW BREAST INC Nevin Tilley APRN.CNP [address] [place] [address] [facility] [address] [place] [address] Referral ID Status Reason Start Date Expiration Date Visits Requested Visits Authorized [id number] Authorized Auto-Generat ed Referral 03/22/2023 04/20/2024 1 1 [facility] for referral (narrative)* Diagnostic Procedure Only (Routine) - Authorized Specialty Diagnoses / Procedures Referred By Conttoño t Referred To Contact [facility] Diagnoses Personal history of breast cancer Encounter for screening mammogram for high-risk patient Procedures TITO SCREENING SCREENING MAMMOGRAPHY BI 2-VIEW BREAST INC Nevin Tilley APRN.CNP [address] [place] [address] [facility] [address] [place] [address] Referral ID Status Reason Start Date Expiration Date Visits Requested Visits Authorized [id number] Authorized Auto-Generat ed Referral 3 10/24/2024 1 1 [facility] Diagnostic Procedure Only (Routine) - Authorized Specialty Diagnoses / Procedures Referred By Contac t Referred To Contact [facility] Diagnoses Personal history of breast cancer Encounter for screening mammogram for high-risk patient Procedures TITO SCREENING SCREENING MAMMOGRAPHY BI 2-VIEW BREAST INC Nevin Tilley APRN.CNP [address] [place] [address] [facility] [address] [place] [address] Referral ID Status Reason Start Date Expiration Date Visits Requested Visits Authorized [id number] Authorized Auto-Generat ed Referral 05/07/2024 06/06/2025 1 1 [facility] for referral (narrative)* Diagnostic Procedure Only (Routine) - Closed Specialty Diagnoses / Procedures Referred By Contac t Referred To Contact [facility] Diagnoses Multiple thyroid nodules Procedures US THYROID/PARATHYROID US SOFT TISSUE HEAD & NECK REAL TIME IMGE Aneta Phelps PA-C [address] [place] [address] [place] [address] Referral ID Status Reason Start Date Expiration Date V isits Requested Visits Authorized [id number] Closed Auto-Generate d Referral 11/24/2023 12/23/2024 1 1 [facility] for referral (narrative)* Diagnostic Procedure Only (Routine) - Closed Specialty Diagnoses / Procedures Referred By Contac t Referred To Contact XR IMAGING Diagnoses Edema, unspecified type Procedures XR FOOT GENERAL 3V AP/LAT/OBL RIGHT RADEX FOOT COMPLETE MINIMUM 3 VIEWS Tu Canela MD [address] [place] [address] [place] [address] Referral ID Status Reason Start Date Expiration Date V isits Requested Visits Authorized [id number] Closed Auto-Generate d Referral 11/30/2021 12/30/2022 1 1 * Diagnostic Procedure Only (Routine) - Closed Specialty Diagnoses / Procedures Referred By Contac t Referred To Contact XR IMAGING Diagnoses Edema, unspecified type Procedures XR ANKLE GENERAL 3V AP/LAT/OBL RIGHT RADEX ANKLE COMPLETE MINIMUM 3 VIEWS Tu Canela MD [address] [place] [address] [place] [address] Referral ID Status Reason Start Date Expiration Date V isits Requested Visits Authorized [id number] Closed Auto-Generate d Referral 11/30/2021 12/30/2022 1 1 [facility] for visit Narrative* Diagnostic Procedure Only (Routine) - Closed Specialty Diagnoses / Procedures Referred By Contac t Referred To Contact [facility] Diagnoses Personal history of breast cancer Encounter for screening mammogram for high-risk patient Procedures TITO SCREENING SCREENING MAMMOGRAPHY BI 2-VIEW BREAST INC CAD Nevin Fajardo, MAINTENANCE DIRECTOR.CALENDER WORKER HELPER [address] [place] [address] [facility] [address] [place] [address] Referral ID Status Reason Start Date Expiration Date V isits Requested Visits Authorized [id number] Closed Auto-Generate d Referral 09/25/2023 10/24/2024 1 1 [facility] for visit Narrative* Diagnostic Procedure Only (Routine) - Closed Specialty Diagnoses / Procedures Referred By Contac t Referred To Contact XR IMAGING Diagnoses Edema, unspecified type Procedures XR FOOT GENERAL 3V AP/LAT/OBL RIGHT RADEX FOOT COMPLETE MINIMUM 3 VIEWS Tu Canela MD [address] [place] [address] [place] [address] Referral ID Status Reason Start Date Expiration Date V isits Requested Visits Authorized [id number] Closed Auto-Generate d Referral 11/30/2021 12/30/2022 1 1 [facility] for visit Narrative* Diagnostic Procedure Only (Routine) - Closed Specialty Diagnoses / Procedures Referred By Contac t Referred To Contact XR IMAGING Diagnoses Low back pain without sciatica, unspecified back pain laterality, unspecified chronicity Procedures XR LUMBAR GENERAL 3V AP/LAT/L5-S1 RADEX SPINE LUMBOSACRAL 2/3 VIEWS Rosie Syed, MAINTENANCE DIRECTOR.CALENDER WORKER HELPER [address] [place] [address] [place] [address] Referral ID Status Reason Start Date Expiration Date V isits Requested Visits Authorized [id number] Closed Auto-Generate d Referral 11/19/2024 12/19/2025 1 1 [facility] for visit Narrative* Diagnostic Procedure Only (Routine) - Closed Specialty Diagnoses / Procedures Referred By Contac t Referred To Contact XR IMAGING Diagnoses Chronic left-sided thoracic back pain Procedures XR THORACIC GENERAL 3V AP/LAT/SWIMMERS RADEX SPINE THORACIC 3 VIEWS Amy Fry, MAINTENANCE DIRECTOR.CALENDER WORKER HELPER [address] [place] [address] Phone: tel: fax: [place] [address] Referral ID Status Reason Start Date Expiration Date V isits Requested Visits Authorized [id number] Closed Auto-Generate d Referral 02/04/2025 03/06/2026 1 1 [facility] for visit Narrative* Diagnostic Procedure Only (Routine) - Closed Specialty Diagnoses / Procedures Referred By Contac t Referred To Contact [facility] Diagnoses Personal history of breast cancer Encounter for screening mammogram for high-risk patient Procedures TITO SCREENING SCREENING MAMMOGRAPHY BI 2-VIEW BREAST INC CAD Nevin Fajardo, MAINTENANCE DIRECTOR.CALENDER WORKER HELPER [address] [place] [address] Phone: tel: fax: [facility] [address] [place] [address] Referral ID Status Reason Start Date Expiration Date V isits Requested Visits Authorized [id number] Closed Auto-Generate d Referral 05/07/2024 06/06/2025 1 1 [facility] Reason for Referral Specialty Diagnoses / Procedures Referred By Contac t Referred To Contact Gastroenterology Diagnoses History of colonic polyps Procedures CONSULT TO GASTROENTEROLOGY OFFICE/OUTPATIENT NEW HIGH MDM 60-74 MINUTES Tu Canela MD [address] [place] [address] Referral ID Status Reason Start Date Expiration Date Visits Requested Visits Authorized [id number] Pending Review PCP Requested Referral 03/16/2022 03/16/2023 [...] & PELVIS W/CONTRAST Tu Canela MD [address] [place] [address] Ct Imaging Referral ID Status Reason Start Date Expiration Date V isits Requested Visits Authorized [id number] Closed Auto-Generate d Referral 05/10/2022 06/09/2023 2 2 Specialty Diagnoses / Procedures Referred By Contac t Referred To Contact General Surgery Diagnoses Hernia of abdominal wall Procedures CONSULT TO GENERAL SURGERY OFFICE/OUTPATIENT [facility] 60-74 MINUTES Tu Canela MD [address] [place] [address] Referral ID Status Reason Start Date Expiration Date Visits Requested Visits Authorized [id number] Pending Review PCP Requested Referral 03/02/2023 03/01/2024 1 1 Specialty Diagnoses / Procedures Referred By Contac t Referred To Contact Urology Diagnoses Urinary urgency Urinary retention Procedures CONSULT TO UROLOGY OFFICE/OUTPATIENT [facility] 60-74 MINUTES Tu Canela MD [address] [place] [address] Referral ID Status Reason Start Date Expiration Date Visits Requested Visits Authorized [id number] Pending Review PCP Requested Referral 03/02/2023 03/01/2024 1 1 Specialty Diagnoses / Procedures Referred By Contac t Referred To Contact CT IMAGING Diagnoses Lung nodules Procedures CT CHEST WO IVCON DIAGNOSTIC COMPUTED TOMOGRAPHY THORAX W/O CNTRST Rosie Syed, MAINTENANCE DIRECTOR.CALENDER WORKER HELPER [address] [place] [address] [place] [address] Referral ID Status Reason Start Date Expiration Date Visits Requested Visits Authorized [id number] New Request Auto-Generat ed Referral 05/01/2025 11/30/2025 1 1 Specialty Diagnoses / Procedures Referred By Contac t Referred To Contact Diagnoses Lacunar stroke (HCC) Procedures PROVIDER ORDERED FOLLOW UP OFFICE/OUTPATIENT [facility] 60 MINUTES Aylin Paz, MAINTENANCE DIRECTOR.CALENDER WORKER HELPER [address] [place] [address] Referral ID Status Reason Start Date Expiration Date Visits Requested Visits Authorized [id number] Authorized PCP Requested Referral 02/01/2025 11/03/2025 1 1 Advance Directives No Advanced Directives Records FoundDocuments on File Type Date Recorded Patient Administrator Of Home Health Expl anation Advance Directive(s) 12/16/2019 2:30 PM [...] No May 11, 2015 2:53pm Power of Advanced Practice Rn No May 11 5 2:53pm Documents on File Type Date Recorded Patient Administrator Of Home Health Expl anation Advance Directive(s) 12/16/2019 2:30 PM [...] No May 24, 2022 9:44am Power of Advanced Practice Rn No May 24 9:44am Latest Code Status on File Code Status Date Activated Date Inactivated Comments Full Code 11/05/2022 7:52 PM 11/15/2022 12:08 PM Full Code Order Discussed With: Patient Advance Directive Response Recorded Date/ Time Advance Directives No May 11 1:53pm Living Will No May 24, 2022 8:44am Power of Advanced Practice Rn No May 24 8:44am Latest Code Status [...] Will No November 13 8:29pm Power of Advanced Practice Rn No November 13 024 8:29pm Date Activated [...] Recorded Date/T debby father Cardiac disease Unknown [place] workers' pneumoconiosis Unknown mother Rheumatoid arthritis Unknown [...] or prosecute any alcohol or drug abuse patient.[facility] the event this information is protected by the Federal Confidentiality of Alcohol and Drug Abuse Patient Records regulations: The Federal rules restrict any use of the information to criminally investigate or prosecute any alcohol or drug abuse patient.[facility] the event this information is protected by the Federal Confidentiality of Alcohol and Drug Abuse Patient Records regulations: The Federal rules restrict any use of the information to criminally investigate or prosecute any alcohol or drug abuse patient.[facility] the event this information is protected by the Federal Confidentiality of Alcohol and Drug Abuse Patient Records regulations: The Federal rules restrict any use of the information to criminally investigate or prosecute any alcohol or drug abuse patient.[facility] the event this information is protected by the Federal Confidentiality of Alcohol and Drug Abuse Patient Records regulations: The Federal rules restrict any use of the information to criminally investigate or prosecute any alcohol or drug abuse patient.[facility] the event this information is protected by the Federal Confidentiality of Alcohol and Drug Abuse Patient Records regulations: The Federal rules restrict any use of the information to criminally investigate or prosecute any alcohol or drug abuse patient.[facility] the event this information is protected by the Federal Confidentiality of Alcohol and Drug Abuse Patient Records regulations: The Federal rules restrict any use of the information to criminally investigate or prosecute any alcohol or drug abuse patient.[facility] the event this information is protected by the Federal Confidentiality of Alcohol and Drug Abuse Patient Records regulations: The Federal rules restrict any use of the information to criminally investigate or prosecute any alcohol or drug abuse patient.[facility] the event this information is protected by the Federal Confidentiality of Alcohol and Drug Abuse Patient Records regulations: The Federal rules restrict any use of the information to criminally investigate or prosecute any alcohol or drug abuse patient.[facility] the event this information is protected by the Federal Confidentiality of Alcohol and Drug Abuse Patient Records regulations: The Federal rules restrict any use of the information to criminally investigate or prosecute any alcohol or drug abuse patient.[facility] the event this information is protected by the Federal Confidentiality of Alcohol and Drug Abuse Patient Records regulations: The Federal rules restrict any use of the information to criminally investigate or prosecute any alcohol or drug abuse patient.[facility] the event this information is protected by the Federal Confidentiality of Alcohol and Drug Abuse Patient Records regulations: The Federal rules restrict any use of the information to criminally investigate or prosecute any alcohol or drug abuse patient.[facility] the event this information is protected by the Federal Confidentiality of Alcohol and Drug Abuse Patient Records regulations: The Federal rules restrict any use of the information to criminally investigate or prosecute any alcohol or drug abuse patient.[facility] the event this information is protected by the Federal Confidentiality of Alcohol and Drug Abuse Patient Records regulations: The Federal rules restrict any use of the information to criminally investigate or prosecute any alcohol or drug abuse patient.[facility] the event this information is protected by the Federal Confidentiality of Alcohol and Drug Abuse Patient Records regulations: The Federal rules restrict any use of the information to criminally investigate or prosecute any alcohol or drug abuse patient.[facility] the event this information is protected by the Federal Confidentiality of Alcohol and Drug Abuse Patient Records regulations: The Federal rules restrict any use of the information to criminally investigate or prosecute any alcohol or drug abuse patient.[facility] the event this information is protected by the Federal Confidentiality of Alcohol and Drug Abuse Patient Records regulations: The Federal rules restrict any use of the information to criminally investigate or prosecute any alcohol or drug abuse patient.[facility] the event this information is protected by the Federal Confidentiality of Alcohol and Drug Abuse Patient Records regulations: The Federal rules restrict any use of the information to criminally investigate or prosecute any alcohol or drug abuse patient.[facility] the event this information is protected by the Federal Confidentiality of Alcohol and Drug Abuse Patient Records regulations: The Federal rules restrict any use of the information to criminally investigate or prosecute any alcohol or drug abuse patient.[facility] the event this information is protected by the Federal Confidentiality of Alcohol and Drug Abuse Patient Records regulations: The Federal rules restrict any use of the information to criminally investigate or prosecute any alcohol or drug abuse patient.[facility] the event this information is protected by the Federal Confidentiality of Alcohol and Drug Abuse Patient Records regulations: The Federal rules restrict any use of the information to criminally investigate or prosecute any alcohol or drug abuse patient.[facility] the event this information is protected by the Federal Confidentiality of Alcohol and Drug Abuse Patient Records regulations: The Federal rules restrict any use of the information to criminally investigate or prosecute any alcohol or drug abuse patient.[facility] the event this information is protected by the Federal Confidentiality of Alcohol and Drug Abuse Patient Records regulations: The Federal rules restrict any use of the information to criminally investigate or prosecute any alcohol or drug abuse patient.[facility] the event this information is protected by the Federal Confidentiality of Alcohol and Drug Abuse Patient Records regulations: The Federal rules restrict any use of the information to criminally investigate or prosecute any alcohol or drug abuse patient.[facility] the event this information is protected by the Federal Confidentiality of Alcohol and Drug Abuse Patient Records regulations: The Federal rules restrict any use of the information to criminally investigate or prosecute any alcohol or drug abuse patient.[facility] the event this information is protected by the Federal Confidentiality of Alcohol and Drug Abuse Patient Records regulations: The Federal rules restrict any use of the information to criminally investigate or prosecute any alcohol or drug abuse patient.[facility] the event this information is protected by the Federal Confidentiality of Alcohol and Drug Abuse Patient Records regulations: The Federal rules restrict any use of the information to criminally investigate or prosecute any alcohol or drug abuse patient.[facility] the event this information is protected by the Federal Confidentiality of Alcohol and Drug Abuse Patient Records regulations: The Federal rules restrict any use of the information to criminally investigate or prosecute any alcohol or drug abuse patient.[facility] AdministrationIn the event this information is protected by the Federal Confidentiality of Alcohol and Drug Abuse Patient Records regulations: The Federal rules restrict any use of the information to criminally investigate or prosecute any alcohol or drug abuse patient.[facility] AdministrationIn the event this information is protected by the Federal Confidentiality of Alcohol and Drug Abuse Patient Records regulations: The Federal rules restrict any use of the information to criminally investigate or prosecute any alcohol or drug abuse patient.[facility] AdministrationIn the event this information is protected by the Federal Confidentiality of Alcohol and Drug Abuse Patient Records regulations: The Federal rules restrict any use of the information to criminally investigate or prosecute any alcohol or drug abuse patient.[facility] AdministrationIn the event this information is protected by the Federal Confidentiality of Alcohol and Drug Abuse Patient Records regulations: The Federal rules restrict any use of the information to criminally investigate or prosecute any alcohol or drug abuse patient.[facility] AdministrationIn the event this information is protected by the Federal Confidentiality of Alcohol and Drug Abuse Patient Records regulations: The Federal rules restrict any use of the information to criminally investigate or prosecute any alcohol or drug abuse patient.[facility] AdministrationIn the event this information is protected by the Federal Confidentiality of Alcohol and Drug Abuse Patient Records regulations: The Federal rules restrict any use of the information to criminally investigate or prosecute any alcohol or drug abuse patient.[facility] AdministrationIn the event this information is protected by the Federal Confidentiality of Alcohol and Drug Abuse Patient Records regulations: The Federal rules restrict any use of the information to criminally investigate or prosecute any alcohol or drug abuse patient.[facility] AdministrationIn the event this information is protected by the Federal Confidentiality of Alcohol and Drug Abuse Patient Records regulations: The Federal rules restrict any use of the information to criminally investigate or prosecute any alcohol or drug abuse patient.[facility] AdministrationIn the event this information is protected by the Federal Confidentiality of Alcohol and Drug Abuse Patient Records regulations: The Federal rules restrict any use of the information to criminally investigate or prosecute any alcohol or drug abuse patient.[facility] AdministrationIn the event this information is protected by the Federal Confidentiality of Alcohol and Drug Abuse Patient Records regulations: The Federal rules restrict any use of the information to criminally investigate or prosecute any alcohol or drug abuse patient.[facility] AdministrationIn the event this information is protected by the Federal Confidentiality of Alcohol and Drug Abuse Patient Records regulations: The Federal rules restrict any use of the information to criminally investigate or prosecute any alcohol or drug abuse patient.[facility] AdministrationIn the event this information is protected by the Federal Confidentiality of Alcohol and Drug Abuse Patient Records regulations: The Federal rules restrict any use of the information to criminally investigate or prosecute any alcohol or drug abuse patient.[facility] AdministrationIn the event this information is protected by the Federal Confidentiality of Alcohol and Drug Abuse Patient Records regulations: The Federal rules restrict any use of the information to criminally investigate or prosecute any alcohol or drug abuse patient.[facility] AdministrationIn the event this information is protected by the Federal Confidentiality of Alcohol and Drug Abuse Patient Records regulations: The Federal rules restrict any use of the information to criminally investigate or prosecute any alcohol or drug abuse patient.[facility] AdministrationIn the event this information is protected by the Federal Confidentiality of Alcohol and Drug Abuse Patient Records regulations: The Federal rules restrict any use of the information to criminally investigate or prosecute any alcohol or drug abuse patient.[facility] AdministrationIn the event this information is protected by the Federal Confidentiality of Alcohol and Drug Abuse Patient Records regulations: The Federal rules restrict any use of the information to criminally investigate or prosecute any alcohol or drug abuse patient.[facility] AdministrationIn the event this information is protected by the Federal Confidentiality of Alcohol and Drug Abuse Patient Records regulations: The Federal rules restrict any use of the information to criminally investigate or prosecute any alcohol or drug abuse patient.[facility] AdministrationIn the event this information is protected by the Federal Confidentiality of Alcohol and Drug Abuse Patient Records regulations: The Federal rules restrict any use of the information to criminally investigate or prosecute any alcohol or drug abuse patient.[facility] AdministrationIn the event this information is protected by the Federal Confidentiality of Alcohol and Drug Abuse Patient Records regulations: The Federal rules restrict any use of the information to criminally investigate or prosecute any alcohol or drug abuse patient.[facility] AdministrationIn the event this information is protected by the Federal Confidentiality of Alcohol and Drug Abuse Patient Records regulations: The Federal rules restrict any use of the information to criminally investigate or prosecute any alcohol or drug abuse patient.[facility] AdministrationIn the event this information is protected by the Federal Confidentiality of Alcohol and Drug Abuse Patient Records regulations: The Federal rules restrict any use of the information to criminally investigate or prosecute any alcohol or drug abuse patient.[facility] AdministrationIn the event this information is protected by the Federal Confidentiality of Alcohol and Drug Abuse Patient Records regulations: The Federal rules restrict any use of the information to criminally investigate or prosecute any alcohol or drug abuse patient.[facility] AdministrationIn the event this information is protected by the Federal Confidentiality of Alcohol and Drug Abuse Patient Records regulations: The Federal rules restrict any use of the information to criminally investigate or prosecute any alcohol or drug abuse patient.[facility] AdministrationIn the event this information is protected by the Federal Confidentiality of Alcohol and Drug Abuse Patient Records regulations: The Federal rules restrict any use of the information to criminally investigate or prosecute any alcohol or drug abuse patient.[facility] AdministrationIn the event this information is protected by the Federal Confidentiality of Alcohol and Drug Abuse Patient Records regulations: The Federal rules restrict any use of the information to criminally investigate or prosecute any alcohol or drug abuse patient.[facility] AdministrationIn the event this information is protected by the Federal Confidentiality of Alcohol and Drug Abuse Patient Records regulations: The Federal rules restrict any use of the information to criminally investigate or prosecute any alcohol or drug abuse patient.[facility] AdministrationIn the event this information is protected by the Federal Confidentiality of Alcohol and Drug Abuse Patient Records regulations: The Federal rules restrict any use of the information to criminally investigate or prosecute any alcohol or drug abuse patient.[facility] AdministrationIn the event this information is protected by the Federal Confidentiality of Alcohol and Drug Abuse Patient Records regulations: The Federal rules restrict any use of the information to criminally investigate or prosecute any alcohol or drug abuse patient.[facility] AdministrationIn the event this information is protected by the Federal Confidentiality of Alcohol and Drug Abuse Patient Records regulations: The Federal rules restrict any use of the information to criminally investigate or prosecute any alcohol or drug abuse patient.[facility] AdministrationIn the event this information is protected by the Federal Confidentiality of Alcohol and Drug Abuse Patient Records regulations: The Federal rules restrict any use of the information to criminally investigate or prosecute any alcohol or drug abuse patient.[facility] AdministrationIn the event this information is protected by the Federal Confidentiality of Alcohol and Drug Abuse Patient Records regulations: The Federal rules restrict any use of the information to criminally investigate or prosecute any alcohol or drug abuse patient.[facility] AdministrationIn the event this information is protected by the Federal Confidentiality of Alcohol and Drug Abuse Patient Records regulations: The Federal rules restrict any use of the information to criminally investigate or prosecute any alcohol or drug abuse patient.[facility] AdministrationIn the event this information is protected by the Federal Confidentiality of Alcohol and Drug Abuse Patient Records regulations: The Federal rules restrict any use of the information to criminally investigate or prosecute any alcohol or drug abuse patient.[facility] AdministrationIn the event this information is protected by the Federal Confidentiality of Alcohol and Drug Abuse Patient Records regulations: The Federal rules restrict any use of the information to criminally investigate or prosecute any alcohol or drug abuse patient.[facility] AdministrationIn the event this information is protected by the Federal Confidentiality of Alcohol and Drug Abuse Patient Records regulations: The Federal rules restrict any use of the information to criminally investigate or prosecute any alcohol or drug abuse patient.[facility] AdministrationIn the event this information is protected by the Federal Confidentiality of Alcohol and Drug Abuse Patient Records regulations: The Federal rules restrict any use of the information to criminally investigate or prosecute any alcohol or drug abuse patient.[facility] AdministrationIn the event this information is protected by the Federal Confidentiality of Alcohol and Drug Abuse Patient Records regulations: The Federal rules restrict any use of the information to criminally investigate or prosecute any alcohol or drug abuse patient.[facility] AdministrationIn the event this information is protected by the Federal Confidentiality of Alcohol and Drug Abuse Patient Records regulations: The Federal rules restrict any use of the information to criminally investigate or prosecute any alcohol or drug abuse patient.[facility] AdministrationIn the event this information is protected by the Federal Confidentiality of Alcohol and Drug Abuse Patient Records regulations: The Federal rules restrict any use of the information to criminally investigate or prosecute any alcohol or drug abuse patient.[facility] AdministrationIn the event this information is protected by the Federal Confidentiality of Alcohol and Drug Abuse Patient Records regulations: The Federal rules restrict any use of the information to criminally investigate or prosecute any alcohol or drug abuse patient.[facility] AdministrationIn the event this information is protected by the Federal Confidentiality of Alcohol and Drug Abuse Patient Records regulations: The Federal rules restrict any use of the information to criminally investigate or prosecute any alcohol or drug abuse patient.[facility] AdministrationIn the event this information is protected by the Federal Confidentiality of Alcohol and Drug Abuse Patient Records regulations: The Federal rules restrict any use of the information to criminally investigate or prosecute any alcohol or drug abuse patient.[facility] AdministrationIn the event this information is protected by the Federal Confidentiality of Alcohol and Drug Abuse Patient Records regulations: The Federal rules restrict any use of the information to criminally investigate or prosecute any alcohol or drug abuse patient.[facility] AdministrationIn the event this information is protected by the Federal Confidentiality of Alcohol and Drug Abuse Patient Records regulations: The Federal rules restrict any use of the information to criminally investigate or prosecute any alcohol or drug abuse patient.[facility] AdministrationIn the event this information is protected by the Federal Confidentiality of Alcohol and Drug Abuse Patient Records regulations: The Federal rules restrict any use of the information to criminally investigate or prosecute any alcohol or drug abuse patient.[facility] AdministrationIn the event this information is protected by the Federal Confidentiality of Alcohol and Drug Abuse Patient Records regulations: The Federal rules restrict any use of the information to criminally investigate or prosecute any alcohol or drug abuse patient.[facility] AdministrationIn the event this information is protected by the Federal Confidentiality of Alcohol and Drug Abuse Patient Records regulations: The Federal rules restrict any use of the information to criminally investigate or prosecute any alcohol or drug abuse patient.[facility] AdministrationIn the event this information is protected by the Federal Confidentiality of Alcohol and Drug Abuse Patient Records regulations: The Federal rules restrict any use of the information to criminally investigate or prosecute any alcohol or drug abuse patient.[facility] AdministrationIn the event this information is protected by the Federal Confidentiality of Alcohol and Drug Abuse Patient Records regulations: The Federal rules restrict any use of the information to criminally investigate or prosecute any alcohol or drug abuse patient.[facility] AdministrationIn the event this information is protected by the Federal Confidentiality of Alcohol and Drug Abuse Patient Records regulations: The Federal rules restrict any use of the information to criminally investigate or prosecute any alcohol or drug abuse patient.[facility] AdministrationIn the event this information is protected by the Federal Confidentiality of Alcohol and Drug Abuse Patient Records regulations: The Federal rules restrict any use of the information to criminally investigate or prosecute any alcohol or drug abuse patient.[facility] AdministrationIn the event this information is protected by the Federal Confidentiality of Alcohol and Drug Abuse Patient Records regulations: The Federal rules restrict any use of the information to criminally investigate or prosecute any alcohol or drug abuse patient.[facility] AdministrationIn the event this information is protected by the Federal Confidentiality of Alcohol and Drug Abuse Patient Records regulations: The Federal rules restrict any use of the information to criminally investigate or prosecute any alcohol or drug abuse patient.[facility] AdministrationIn the event this information is protected by the Federal Confidentiality of Alcohol and Drug Abuse Patient Records regulations: The Federal rules restrict any use of the information to criminally investigate or prosecute any alcohol or drug abuse patient.[facility] AdministrationIn the event this information is protected by the Federal Confidentiality of Alcohol and Drug Abuse Patient Records regulations: The Federal rules restrict any use of the information to criminally investigate or prosecute any alcohol or drug abuse patient.[facility] AdministrationIn the event this information is protected by the Federal Confidentiality of Alcohol and Drug Abuse Patient Records regulations: The Federal rules restrict any use of the information to criminally investigate or prosecute any alcohol or drug abuse patient.[facility]In the event this information is protected by the Federal Confidentiality of Alcohol and Drug Abuse Patient Records regulations: The Federal rules restrict any use of the information to criminally investigate or prosecute any alcohol or drug abuse patient.[facility] AdministrationIn the event this information is protected by the Federal Confidentiality of Alcohol and Drug Abuse Patient Records regulations: The Federal rules restrict any use of the information to criminally investigate or prosecute any alcohol or drug abuse patient.[facility]In the event this information is protected by the Federal Confidentiality of Alcohol and Drug Abuse Patient Records regulations: The Federal rules restrict any use of the information to criminally investigate or prosecute any alcohol or drug abuse patient.[facility]In the event this information is protected by the Federal Confidentiality of Alcohol and Drug Abuse Patient Records regulations: The Federal rules restrict any use of the information to criminally investigate or prosecute any alcohol or drug abuse patient.[facility] AdministrationIn the event this information is protected by the Federal Confidentiality of Alcohol and Drug Abuse Patient Records regulations: The Federal rules restrict any use of the information to criminally investigate or prosecute any alcohol or drug abuse patient.[facility]In the event this information is protected by the Federal Confidentiality of Alcohol and Drug Abuse Patient Records regulations: The Federal rules restrict any use of the information to criminally investigate or prosecute any alcohol or drug abuse patient.[facility] AdministrationIn the event this information is protected by the Federal Confidentiality of Alcohol and Drug Abuse Patient Records regulations: The Federal rules restrict any use of the information to criminally investigate or prosecute any alcohol or drug abuse patient.[facility] AdministrationIn the event this information is protected by the Federal Confidentiality of Alcohol and Drug Abuse Patient Records regulations: The Federal rules restrict any use of the information to criminally investigate or prosecute any alcohol or drug abuse patient.[facility] AdministrationIn the event this information is protected by the Federal Confidentiality of Alcohol and Drug Abuse Patient Records regulations: The Federal rules restrict any use of the information to criminally investigate or prosecute any alcohol or drug abuse patient.[facility]In the event this information is protected by the Federal Confidentiality of Alcohol and Drug Abuse Patient Records regulations: The Federal rules restrict any use of the information to criminally investigate or prosecute any alcohol or drug abuse patient.[facility] AdministrationIn the event this information is protected by the Federal Confidentiality of Alcohol and Drug Abuse Patient Records regulations: The Federal rules restrict any use of the information to criminally investigate or prosecute any alcohol or drug abuse patient.[facility] AdministrationIn the event this information is protected by the Federal Confidentiality of Alcohol and Drug Abuse Patient Records regulations: The Federal rules restrict any use of the information to criminally investigate or prosecute any alcohol or drug abuse patient.[facility]In the event this information is protected by the Federal Confidentiality of Alcohol and Drug Abuse Patient Records regulations: The Federal rules restrict any use of the information to criminally investigate or prosecute any alcohol or drug abuse patient.[facility]In the event this information is protected by the Federal Confidentiality of Alcohol and Drug Abuse Patient Records regulations: The Federal rules restrict any use of the information to criminally investigate or prosecute any alcohol or drug abuse patient.[facility]In the event this information is protected by the Federal Confidentiality of Alcohol and Drug Abuse Patient Records regulations: The Federal rules restrict any use of the information to criminally investigate or prosecute any alcohol or drug abuse patient.[facility] AdministrationIn the event this information is protected by the Federal Confidentiality of Alcohol and Drug Abuse Patient Records regulations: The Federal rules restrict any use of the information to criminally investigate or prosecute any alcohol or drug abuse patient.[facility]In the event this information is protected by the Federal Confidentiality of Alcohol and Drug Abuse Patient Records regulations: The Federal rules restrict any use of the information to criminally investigate or prosecute any alcohol or drug abuse patient.[facility]In the event this information is protected by the Federal Confidentiality of Alcohol and Drug Abuse Patient Records regulations: The Federal rules restrict any use of the information to criminally investigate or prosecute any alcohol or drug abuse patient.[facility]In the event this information is protected by the Federal Confidentiality of Alcohol and Drug Abuse Patient Records regulations: The Federal rules restrict any use of the information to criminally investigate or prosecute any alcohol or drug abuse patient.[facility]In the event this information is protected by the Federal Confidentiality of Alcohol and Drug Abuse Patient Records regulations: The Federal rules restrict any use of the information to criminally investigate or prosecute any alcohol or drug abuse patient.[facility]In the event this information is protected by the Federal Confidentiality of Alcohol and Drug Abuse Patient Records regulations: The Federal rules restrict any use of the information to criminally investigate or prosecute any alcohol or drug abuse patient.[facility] AdministrationIn the event this information is protected by the Federal Confidentiality of Alcohol and Drug Abuse Patient Records regulations: The Federal rules restrict any use of the information to criminally investigate or prosecute any alcohol or drug abuse patient.[facility]In the event this information is protected by the Federal Confidentiality of Alcohol and Drug Abuse Patient Records regulations: The Federal rules restrict any use of the information to criminally investigate or prosecute any alcohol or drug abuse patient.[facility]In the event this information is protected by the Federal Confidentiality of Alcohol and Drug Abuse Patient Records regulations: The Federal rules restrict any use of the information to criminally investigate or prosecute any alcohol or drug abuse patient.[facility]In the event this information is protected by the Federal Confidentiality of Alcohol and Drug Abuse Patient Records regulations: The Federal rules restrict any use of the information to criminally investigate or prosecute any alcohol or drug abuse patient.[facility]In the event this information is protected by the Federal Confidentiality of Alcohol and Drug Abuse Patient Records regulations: The Federal rules restrict any use of the information to criminally investigate or prosecute any alcohol or drug abuse patient.[facility] AdministrationIn the event this information is protected by the Federal Confidentiality of Alcohol and Drug Abuse Patient Records regulations: The Federal rules restrict any use of the information to criminally investigate or prosecute any alcohol or drug abuse patient.[facility] AdministrationIn the event this information is protected by the Federal Confidentiality of Alcohol and Drug Abuse Patient Records regulations: The Federal rules restrict any use of the information to criminally investigate or prosecute any alcohol or drug abuse patient.[facility] AdministrationIn the event this information is protected by the Federal Confidentiality of Alcohol and Drug Abuse Patient Records regulations: The Federal rules restrict any use of the information to criminally investigate or prosecute any alcohol or drug abuse patient.[facility] AdministrationIn the event this information is protected by the Federal Confidentiality of Alcohol and Drug Abuse Patient Records regulations: The Federal rules restrict any use of the information to criminally investigate or prosecute any alcohol or drug abuse patient.[facility] AdministrationIn the event this information is protected by the Federal Confidentiality of Alcohol and Drug Abuse Patient Records regulations: The Federal rules restrict any use of the information to criminally investigate or prosecute any alcohol or drug abuse patient.[facility] AdministrationIn the event this information is protected by the Federal Confidentiality of Alcohol and Drug Abuse Patient Records regulations: The Federal rules restrict any use of the information to criminally investigate or prosecute any alcohol or drug abuse patient.[facility] AdministrationIn the event this information is protected by the Federal Confidentiality of Alcohol and Drug Abuse Patient Records regulations: The Federal rules restrict any use of the information to criminally investigate or prosecute any alcohol or drug abuse patient.[facility] AdministrationIn the event this information is protected by the Federal Confidentiality of Alcohol and Drug Abuse Patient Records regulations: The Federal rules restrict any use of the information to criminally investigate or prosecute any alcohol or drug abuse patient.[facility] AdministrationIn the event this information is protected by the Federal Confidentiality of Alcohol and Drug Abuse Patient Records regulations: The Federal rules restrict any use of the information to criminally investigate or prosecute any alcohol or drug abuse patient.[facility] AdministrationIn the event this information is protected by the Federal Confidentiality of Alcohol and Drug Abuse Patient Records regulations: The Federal rules restrict any use of the information to criminally investigate or prosecute any alcohol or drug abuse patient.[facility] AdministrationIn the event this information is protected by the Federal Confidentiality of Alcohol and Drug Abuse Patient Records regulations: The Federal rules restrict any use of the information to criminally investigate or prosecute any alcohol or drug abuse patient.[facility] AdministrationIn the event this information is protected by the Federal Confidentiality of Alcohol and Drug Abuse Patient Records regulations: The Federal rules restrict any use of the information to criminally investigate or prosecute any alcohol or drug abuse patient.[facility] AdministrationIn the event this information is protected by the Federal Confidentiality of Alcohol and Drug Abuse Patient Records regulations: The Federal rules restrict any use of the information to criminally investigate or prosecute any alcohol or drug abuse patient.[facility] AdministrationIn the event this information is protected by the Federal Confidentiality of Alcohol and Drug Abuse Patient Records regulations: The Federal rules restrict any use of the information to criminally investigate or prosecute any alcohol or drug abuse patient.[facility] AdministrationIn the event this information is protected by the Federal Confidentiality of Alcohol and Drug Abuse Patient Records regulations: The Federal rules restrict any use of the information to criminally investigate or prosecute any alcohol or drug abuse patient.[facility] AdministrationIn the event this information is protected by the Federal Confidentiality of Alcohol and Drug Abuse Patient Records regulations: The Federal rules restrict any use of the information to criminally investigate or prosecute any alcohol or drug abuse patient.[facility] AdministrationIn the event this information is protected by the Federal Confidentiality of Alcohol and Drug Abuse Patient Records regulations: The Federal rules restrict any use of the information to criminally investigate or prosecute any alcohol or drug abuse patient.[facility] AdministrationIn the event this information is protected by the Federal Confidentiality of Alcohol and Drug Abuse Patient Records regulations: The Federal rules restrict any use of the information to criminally investigate or prosecute any alcohol or drug abuse patient.[facility] AdministrationIn the event this information is protected by the Federal Confidentiality of Alcohol and Drug Abuse Patient Records regulations: The Federal rules restrict any use of the information to criminally investigate or prosecute any alcohol or drug abuse patient.[facility] AdministrationIn the event this information is protected by the Federal Confidentiality of Alcohol and Drug Abuse Patient Records regulations: The Federal rules restrict any use of the information to criminally investigate or prosecute any alcohol or drug abuse patient.[facility] AdministrationIn the event this information is protected by the Federal Confidentiality of Alcohol and Drug Abuse Patient Records regulations: The Federal rules restrict any use of the information to criminally investigate or prosecute any alcohol or drug abuse patient.[facility] AdministrationIn the event this information is protected by the Federal Confidentiality of Alcohol and Drug Abuse Patient Records regulations: The Federal rules restrict any use of the information to criminally investigate or prosecute any alcohol or drug abuse patient.[facility] AdministrationIn the event this information is protected by the Federal Confidentiality of Alcohol and Drug Abuse Patient Records regulations: The Federal rules restrict any use of the information to criminally investigate or prosecute any alcohol or drug abuse patient.[facility] AdministrationIn the event this information is protected by the Federal Confidentiality of Alcohol and Drug Abuse Patient Records regulations: The Federal rules restrict any use of the information to criminally investigate or prosecute any alcohol or drug abuse patient.[facility] AdministrationIn the event this information is protected by the Federal Confidentiality of Alcohol and Drug Abuse Patient Records regulations: The Federal rules restrict any use of the information to criminally investigate or prosecute any alcohol or drug abuse patient.[facility] AdministrationIn the event this information is protected by the Federal Confidentiality of Alcohol and Drug Abuse Patient Records regulations: The Federal rules restrict any use of the information to criminally investigate or prosecute any alcohol or drug abuse patient.[facility] AdministrationIn the event this information is protected by the Federal Confidentiality of Alcohol and Drug Abuse Patient Records regulations: The Federal rules restrict any use of the information to criminally investigate or prosecute any alcohol or drug abuse patient.[facility] AdministrationIn the event this information is protected by the Federal Confidentiality of Alcohol and Drug Abuse Patient Records regulations: The Federal rules restrict any use of the information to criminally investigate or prosecute any alcohol or drug abuse patient.[facility] Reason for Visit (unrecogniz ed section and content) Reason Comments Established Patient Specialty Diagnoses / Procedures Referred By Griselda t Referred To Contact Vascular Surgery Diagnoses Venous insufficiency Procedures CONSULT TO VASCULAR SURGERY OFFICE/OUTPATIENT NEW HIGH MDM 60 MINUTES Tu Canela MD [address] [place] [address] Phone: tel: fax: Referral ID Status Reason Start Date Expiration Date V isits Requested Visits Authorized [id number] Closed PCP Requested Referral 01/26/2025 01/26/2026 1 1 Reason Comments Follow Up Specialty Diagnoses / Procedures Referred By Contac t Referred To Contact Diagnoses Lacunar stroke (HCC) Procedures PROVIDER ORDERED FOLLOW UP OFFICE/OUTPATIENT NEW HIGH [facility] 60 MINUTES Aylin Paz, MAINTENANCE DIRECTOR.CALENDER WORKER HELPER [address] [place] [address] Phone: tel: fax: Referral ID Status Reason Start Date Expiration Date V isits Requested Visits Authorized [id number] Closed PCP Requested Referral 02/01/2025 11/03/2025 1 [...] ABD & PELVIS W/CONTRAST Tu Canela MD [address] [place] [address] Ct Imaging Referral ID Status Reason Start Date Expiration Date V isits Requested Visits Authorized [id number] Closed Auto-Generate d Referral 05/10/2022 06/09/2023 2 2 Reason Comments Colonoscopy appt Reason Comments Radiology Mammogram Specialty Diagnoses / Procedures Referred By Griselda t Referred To Contact [facility] Diagnoses Malignant neoplasm of upper-outer quadrant of left breast in female, estrogen receptor positive (HCC) Encounter for screening mammogram for high-risk patient Procedures TITO SCREENING SCREENING MAMMOGRAPHY BI 2-VIEW BREAST INC Nevin Tilley, MAINTENANCE DIRECTOR.CALENDER WORKER HELPER [address] [place] [address] [facility] [address] [place] [address] Referral ID Status Reason Start Date Expiration Date V isits Requested Visits Authorized [id number] Closed Auto-Generate d Referral 01/05/2022 02/04/2023 1 1 Reason Comments Results Reason Comments Follow Up still feels mass in abd Edema swelling in her feet increasing again Reason Comments Established Patient Reason Comments Hypertension F/U Reason Comments Blood Pressure Check Reason Comments Blood Pressure Reason Comments FYI-No Action Needed Reason Onset Date Comments Transition Of Care 11/16/2022 TCM Initial O utreach: [facility] 11/15/22, Cellulitis of right lower leg Reason [...] Check Appointment Reason Comments Insurance Authorization [facility] Reason Comments Follow Up Reason Comments Consult Hernia Specialty Diagnoses / Procedures Referred By Griselda french Referred To Contact General Surgery Diagnoses Hernia of abdominal wall Procedures CONSULT TO GENERAL SURGERY OFFICE/OUTPATIENT NEW HIGH MDM 60-74 MINUTES Tu Canela MD [address] [place] [address] Referral ID Status Reason Start Date Expiration Date Visits Requested Visits Authorized [id number] Pending Review PCP Requested Referral 03/02/2023 03/01/2024 [...] Date Comments Population Health Navigation Outreach 06/05/2024 Samson AWV/HCC and care gaps Reason Onset Date [...] ach Reason Comments Orders Handicap Placard/Hartmann dicap performance solutions specialist Plate Reason Comments Ambulatory Social Work Transition of Car e Reason Onset Date Comments Transition Of Care 10/28/2024 Initial outre ach call- Patient discharged from [facility] on 10-27-24 Reason Comments Patient Update [facility] needs additional information faxed Reason Comments Hospital F/U [facility] then daugherty sferred to [facility], dx: CVA Reason Comments home health calling, PCP to follow patie nt Reason Comments skilled nurse plan of care Orders Reason Onset Date Comments Transition Of Care 11/07/2024 Day 11 follow up phone call - patient discharged from [facility] on 10-27-24 Reason Comments request verbal order Reason Onset Date Comments Transition Of Care 11/10/2024 Day 14 follow up phone call - Discharge date [facility] 10/27/24 Reason Onset Date Comments Transition Of Care 11/11/2024 Escalation fo llow up call Reason Comments Physical Therapy Plan of Care Reason Comments OT Plan of Care Reason Onset Date Comments Transition Of Care 11/14/2024 Day 18 outrea call - patient discharged from [facility] date of 10-27-24 Reason Onset Date Comments Transition Of Care 11/21/2024 Day 25 Outrea Call - Discharged from [facility] date of 10-27-25 Reason Comments [facility] verbal oder needed Reason Comments Recheck 4 [...] Care Teams (unrecognized sec tion and content) Learning Manager Relationship Specialty Start Date End Date Tu Canela MD [address] [facility] [place] [address] PCP - General Family Practice 07/08/12 Learning Manager Relationship Specialty Start Date End Date Tu Canela MD [address] [facility] [place] [address] PCP - General Family Practice 07/08/12 Learning Manager Relationship Specialty Start Date End Date Tu Canela MD [address] [facility] [place] [address] PCP - General Family Practice 07/08/12 Learning Manager Relationship Specialty Start Date End Date Tu Canela MD [address] [facility] [place] [address] PCP - General Family Practice 07/08/12 Learning Manager Relationship Specialty Start Date End Date Tu Canela MD [address] [facility] [place] [address] PCP - General Family Practice 07/08/12 Learning Manager Relationship Specialty Start Date End Date Tu Canela MD [address] [facility] [place] [address] PCP - General Family Practice 07/08/12 Learning Manager Relationship Specialty Start Date End Date Tu Canela MD [address] [facility] [place] [address] PCP - General Family Practice 07/08/12 Learning Manager Relationship Specialty Start Date End Date Tu Canela MD [address] [facility] [place] [address] PCP - General Family Practice 07/08/12 Learning Manager Relationship Specialty Start Date End Date Tu Canela MD [address] [facility] [place] [address] PCP - General Family Practice 07/08/12 Learning Manager Relationship Specialty Start Date End Date Tu Canela MD [address] [place] [address] PCP - General Family Medicine 07/08/12 Learning Manager Relationship Specialty Start Date End Date Tu Canela MD [address] [place] [address] PCP - General Family Medicine 07/08/12 Team [...] Dr. Aleksandr Tim MD Attending Provider Active Learning Manager Relationship Specialty Start Date End Date Tu Canela MD [address] [place] [address] PCP - General Family Medicine 07/08/12 Learning Manager Relationship Specialty Start Date End Date Tu Canela MD [address] [place] [address] PCP - General Family Medicine 07/08/12 Learning Manager Relationship Specialty Start Date End Date Tu Canela MD [address] [place] [address] PCP - General Family Medicine 07/08/12 Learning Manager Relationship Specialty Start Date End Date Tu Canela MD [address] [place] [address] PCP - General Family Medicine 07/08/12 Guerda Francisco, HERNESTO [address] [id number] [employer] Certified Internetwork Expert 01/18/23 Learning Manager Relationship Specialty Start Date End Date Tu Canela MD [address] [facility] [place] [address] PCP - General Family Medicine 07/08/12 Learning Manager Relationship Specialty Start Date End Date Tu Canela MD [address] [facility] [place] [address] PCP - General Family Medicine 07/08/12 Guerda Francisco RN [address] [facility] [place] [address] [employer] Certified Internetwork Expert 01/18/23 Learning Manager Relationship Specialty Start Date End Date Tu Canela MD [address] [facility] [place] [address] PCP - General Family Medicine 07/08/12 Guerda Francisco RN [address] [place] [address] [employer] Certified Internetwork Expert 01/18/23 Learning Manager Relationship Specialty Start Date End Date Tu Canela MD [address] [facility] [place] [address] PCP - General Family Medicine 07/08/12 Guerda Francisco RN [address] [place] [address] [employer] Certified Internetwork Expert 01/18/23 Learning Manager Relationship Specialty Start Date End Date Tu Canela MD [address] [facility] [place] [address] PCP - General Family Medicine 07/08/12 Guerda Francisco RN [address] [facility] [place] [address] [employer] Certified Internetwork Expert 01/18/23 Learning Manager Relationship Specialty Start Date End Date Tu Canela MD [address] [facility] [place] [address] PCP - General Family Medicine 07/08/12 Guerda Francisco RN [address] [place] [address] [employer] Certified Internetwork Expert 01/18/23 Learning Manager Relationship Specialty Start Date End Date Tu Canela MD [address] [facility] [place] [address] PCP - General Family Medicine 07/08/12 Guerda Francisco RN [address] [place] [address] [employer] Certified Internetwork Expert 01/18/23 Learning Manager Relationship Specialty Start Date End Date Tu Canela MD [address] [facility] [place] [address] PCP - General Family Medicine 07/08/12 Guerda Francisco RN [address] [place] [address] [employer] Certified Internetwork Expert 01/18/23 Learning Manager Relationship Specialty Start Date End Date Tu Canela MD [address] [place] [address] PCP - General Family Medicine 07/08/12 Guerda Francisco RN [address] [place] [address] [employer] Certified Internetwork Expert 01/18/23 Learning Manager Relationship Specialty Start Date End Date Tu Canela MD [address] [place] [address] PCP - General Family Medicine 07/08/12 Guerda Francisco RN [address] [place] [address] [employer] Certified Internetwork Expert 01/18/23 Learning Manager Relationship Specialty Start Date End Date uT Canela MD [address] [facility] [place] [address] PCP - General Family Medicine 07/08/12 Eliseo Michele, superintendent landfill operationsCisco Certified Internetwork Expert 04/23/23 Learning Manager Relationship Specialty Start Date End Date Tu Canela MD [address] [place] [address] PCP - General Family Medicine 07/08/12 Eliseo Michele, superintendent landfill operationsCisco Certified Internetwork Expert 04/23/23 Learning Manager Relationship Specialty Start Date End Date Tu Canela MD [address] [facility] [place] [address] PCP - General Family Medicine 07/08/12 Eliseo Michele, superintendent landfill operationsCisco Certified Internetwork Expert 04/23/23 Learning Manager Relationship Specialty Start Date End Date Tu Canela MD [address] [place] [address] PCP - General Family Medicine 07/08/12 Eliseo Michele, superintendent landfill operationsCisco Certified Internetwork Expert 04/23/23 Learning Manager Relationship Specialty Start Date End Date Tu Canela MD [address] [place] [address] PCP - General Family Medicine 07/08/12 Eliseo Michele, superintendent landfill operationsCisco Certified Internetwork Expert 04/23/23 Learning Manager Relationship Specialty Start Date End Date Tu Canela MD [address] [place] [address] PCP - General Family Medicine 07/08/12 Eliseo Michele, superintendent landfill operationsCisco Certified Internetwork Expert 04/23/23 Learning Manager Relationship Specialty Start Date End Date Tu Canela MD [address] [place] [address] PCP - General Family Medicine 07/08/12 Eliseo Michele, superintendent landfill operationsCisco Certified Internetwork Expert 04/23/23 Learning Manager Relationship Specialty Start Date End Date Tu Canela MD [address] [place] [address] PCP - General Family Medicine 07/08/12 Eliseo Michele, superintendent landfill operationsCisco Certified Internetwork Expert 04/23/23 Learning Manager Relationship Specialty Start Date End Date Tu Canela MD [address] [place] [address] PCP - General Family Medicine 07/08/12 Eliseo Michele, superintendent landfill operationsCisco Certified Internetwork Expert 04/23/23 Learning Manager Relationship Specialty Start Date End Date Tu Canela MD [address] [place] [address] PCP - General Family Medicine 07/08/12 Eliseo Michele, superintendent landfill operationsCisco Certified Internetwork Expert 04/23/23 Learning Manager Relationship Specialty Start Date End Date Tu Canela MD [address] [place] [address] PCP - General Family Medicine 07/08/12 Eliseo Michele, superintendent landfill operationsCisco Certified Internetwork Expert 04/23/23 Learning Manager Relationship Specialty Start Date End Date Tu Canela MD [address] [facility] [place] [address] PCP - General Family Medicine 07/08/12 Eliseo Michele, superintendent landfill operationsCisco Certified Internetwork Expert 04/23/23 Learning Manager Relationship Specialty Start Date End Date Tu Canela MD [address] [place] [address] PCP - General Family Medicine 07/08/12 Eliseo Michele, superintendent landfill operationsCisco Certified Internetwork Expert 04/23/23 Learning Manager Relationship Specialty Start Date End Date Tu Canela MD [address] [facility] [place] [address] PCP - General Family Medicine 07/08/12 Eliseo Michele, superintendent landfill operationsCisco Certified Internetwork Expert 04/23/23 Team Status: Active Member Role Status Dates Dr. Tu Canela MD Family Provider Active M Davin Brown PA, PA Primary Care Provider Active Team Status: Inactive Member Role Status Dates Dr. Hector eKrns , DO Emergency Provider Active M Davin YAN, PA Primary Care Provider Active Learning Manager Relationship Specialty Start Date End Date Tu Canela MD [address] [facility] [place] [address] PCP - General Family Medicine 07/08/12 Eliseo Michele, superintendent landfill operationsC[employer] Certified Internetwork Expert 04/23/23 Learning Manager Relationship Specialty Start Date End Date Tu Canela MD [address] [place] [address] PCP - General Family Medicine 07/08/12 Eliseo Michele, superintendent landfill operationsC[employer] Certified Internetwork Expert 04/23/23 Learning Manager Relationship Specialty Start Date End Date Tu Canela MD [address] [place] [address] PCP - General Family Medicine 07/08/12 Eliseo Michele, superintendent landfill operationsCisco Certified Internetwork Expert 04/23/23 Learning Manager Relationship Specialty Start Date End Date Tu Canela MD [address] [place] [address] PCP - General Family Medicine 07/08/12 Eliseo Michele, superintendent landfill operationsC[employer] Certified Internetwork Expert 04/23/23 Learning Manager Relationship Specialty Start Date End Date Tu Canela MD [address] [place] [address] PCP - General Family Medicine 07/08/12 Eliseo Michele, superintendent landfill operationsCisco Certified Internetwork Expert 04/23/23 Learning Manager Relationship Specialty Start Date End Date Tu Canela MD [address] [place] [address] PCP - General Family Medicine 07/08/12 Eliseo Michele, superintendent landfill operationsC[employer] Certified Internetwork Expert 04/23/23 Learning Manager Relationship Specialty Start Date End Date Tu Canela MD [address] [place], [place] [address] PCP - General Family Medicine 07/08/12 Eliseo Michele, superintendent landfill operationsCisco Certified Internetwork Expert 04/23/23 Learning Manager Relationship Specialty Start Date End Date Tu Canela MD [address] [place], [place] [address] PCP - General Family Medicine 07/08/12 Eliseo Michele, superintendent landfill operationsCisco Certified Internetwork Expert 04/23/23 Zenaida Jessica, HERNESTO [address] [place] [address] Primary Care Stripping And Booking Machine Operator 11/09/23 12/11/23 Learning Manager Relationship Specialty Start Date End Date Tu Canela MD [address] [place] [address] PCP - General Family Medicine 07/08/12 Learning Manager Relationship Specialty Start Date End Date Tu Canela MD [address] [place], [place] [address] PCP - General Family Medicine 07/08/12 Eliseo Michele, superintendent landfill operationsCisco Certified Internetwork Expert 04/23/23 Learning Manager Relationship Specialty Start Date End Date Tu Canela MD [address] [place], [place] [address] PCP - General Family Medicine 07/08/12 Eliseo Michele, superintendent landfill operationsCisco Certified Internetwork Expert 04/23/23 Rosie Syed APRN.CALENDER WORKER HELPER [address] [place] [address] Director Facilities Maintenance Family Medicine 10/20/24 Shobha Morel APRN.CALENDER WORKER HELPER [address] [place] [address] Director Facilities Maintenance Family Medicine 10/20/24 Eliseo Michele, superintendent landfill operations Stripping And Booking Machine Operator 10/28/24 Sammy Sampson, CLARENCE [employer] Supervisor 10/28/24 Learning Manager Relationship Specialty Start Date End Date Tu Canela MD [address] [facility] [place] [address] PCP - General Family Medicine 07/08/12 Eliseo Michele, superintendent landfill operationsCisco Certified Internetwork Expert 04/23/23 Rosie Syed, MAINTENANCE DIRECTOR.CALENDER WORKER HELPER [address] [facility] [address] Director Facilities Maintenance [facility] 10/20/24 Shobha Morel MAINTENANCE DIRECTOR.CALENDER WORKER HELPER [address] [facility] [place] [address] Director Facilities Maintenance Family Medicine 10/20/24 Eliseo Michele, superintendent landfill operations Stripping And Booking Machine Operator 10/28/24 Sammy Sampson, CLARENCE [employer] Supervisor 10/28/24 Learning Manager Relationship Specialty Start Date End Date Tu Canela MD [address] [facility] [place] [place] [address] PCP - General Family Medicine 07/08/12 Eliseo Michele, superintendent landfill operationsCisco Certified Internetwork Expert 04/23/23 Rosie Syed, MAINTENANCE DIRECTOR.CALENDER WORKER HELPER [address] [place] [address] Director Facilities Maintenance [facility] 10/20/24 Shobha Morel MAINTENANCE DIRECTOR.CALENDER WORKER HELPER [address] [facility] [place] [address] Director Facilities Maintenance Family Medicine 10/20/24 Eliseo Michele, superintendent landfill operations Stripping And Booking Machine Operator 10/28/24 Sammy Sampson, BEAMER HAND [employer] Supervisor 10/28/24 Learning Manager Relationship Specialty Start Date End Date Tu Canela MD [address] [facility] [place] [address] PCP - General Family Medicine 07/08/12 Eliseo Michele, superintendent landfill operationsCisco Certified Internetwork Expert 04/23/23 Rosie Syed, MAINTENANCE DIRECTOR.CALENDER WORKER HELPER [address] [facility] [place] [address] Director Facilities Maintenance Family [facility] 10/20/24 Shobha Morel MAINTENANCE DIRECTOR.CALENDER WORKER HELPER [address] [place] [address] Director Facilities Maintenance Family [facility] 10/20/24 Eliseo Michele, superintendent landfill operations Stripping And Booking Machine Operator 10/28/24 Sammy Sampson, BEAMER HAND [employer] Supervisor 10/28/24 Learning Manager Relationship Specialty Start Date End Date Tu Canela MD [address] [facility] [place] [address] PCP - General Family Medicine 07/08/12 Eliseo Michele, superintendent landfill operationsCisco Certified Internetwork Expert 04/23/23 Rosie Syed, MAINTENANCE DIRECTOR.CALENDER WORKER HELPER [address] [facility] [place] [address] Director Facilities Maintenance Family [facility] 10/20/24 Shobha Morel MAINTENANCE DIRECTOR.CALENDER WORKER HELPER [address] [place] [address] Director Facilities Maintenance Family [facility] 10/20/24 Eliseo Michele, superintendent landfill operations Stripping And Booking Machine Operator 10/28/24 Sammy Sampson, CLARENCE [employer] Supervisor 10/28/24 Learning Manager Relationship Specialty Start Date End Date Tu Canela MD [address] [facility] [place] [address] PCP - General Family Medicine 07/08/12 Rosie Syed, MAINTENANCE DIRECTOR.CALENDER WORKER HELPER [address] [facility] [place] [address] Director Facilities Maintenance [facility] 10/20/24 Shobha Morle MAINTENANCE DIRECTOR.CALENDER WORKER HELPER [address] [facility] [place] [address] Director Facilities Maintenance Family [facility] 10/20/24 Eliseo Michele, superintendent landfill operations Stripping And Booking Machine Operator 10/28/24 Sammy Sampson LSW [employer] Supervisor 10/28/24 Learning Manager Relationship Specialty Start Date End Date Tu Canela MD [address] [place] [address] PCP - General Family Medicine 07/08/12 Rosie Syed MAINTENANCE DIRECTOR.CALENDER WORKER HELPER [address] [place] [address] Director Facilities Maintenance [facility] 10/20/24 Eliseo Michele, superintendent landfill operations Stripping And Booking Machine Operator 10/28/24 Learning Manager Relationship Specialty Start Date End Date Tu Canela MD [address] [facility] [place] [place] [address] PCP - General Family Medicine 07/08/12 Rosie Syed MAINTENANCE DIRECTOR.CALENDER WORKER HELPER [address] [place] [address] Director Facilities Maintenance [facility] 10/20/24 Eliseo Michele, superintendent landfill operations Stripping And Booking Machine Operator 10/28/24 Learning Manager Relationship Specialty Start Date End Date Tu Canela MD [address] [place] [address] PCP - General Family Medicine 07/08/12 Rosie Syed APRN.CALENDER WORKER HELPER [address] [place] [address] Director Facilities Maintenance [facility] 10/20/24 Shobha Morel MAINTENANCE DIRECTOR.CALENDER WORKER HELPER [address] [facility] [place] [address] Director Facilities Maintenance Family [facility] 10/20/24 Eliseo Michele, superintendent landfill operations Stripping And Booking Machine Operator 10/28/24 Learning Manager Relationship Specialty Start Date End Date Tu Canela MD [address] [facility] [place] [address] PCP - General Family Medicine 07/08/12 Rosie Syed, MAINTENANCE DIRECTOR.CALENDER WORKER HELPER [address] [facility] [place] [address] [facility] 10/20/24 Shobha Morel MAINTENANCE DIRECTOR.CALENDER WORKER HELPER [address] [place] [address] Director Facilities Maintenance [facility] 10/20/24 Eliseo Michele, superintendent landfill operations Stripping And Booking Machine Operator 10/28/24 Sammy Sampson LSW [employer] Supervisor 10/28/24 11/09/24 Learning Manager Relationship Specialty Start Date End Date Tu Canela MD [address] [facility] [place] [address] PCP - General Family Medicine 07/08/12 Rosie Syed MAINTENANCE DIRECTOR.CALENDER WORKER HELPER [address] [facility] [place] [address] Director Facilities Maintenance [facility] 10/20/24 Shobha Morel APRN.CALENDER WORKER HELPER [address] [facility] [place] [address] Director Facilities Maintenance [facility] 10/20/24 Eliseo Michele, superintendent landfill operations Stripping And Booking Machine Operator 10/28/24 Learning Manager Relationship Specialty Start Date End Date Tu Canela MD [address] [facility] [place] [address] PCP - General Family Medicine 07/08/12 Rosie Syed APRN.CALENDER WORKER HELPER [address] [facility] [place] [address] Director [facility] 10/20/24 Shobha Morel APRN.CALENDER WORKER HELPER [address] [place] [address] Director [facility] 10/20/24 Eliseo Michele, superintendent landfill operations Stripping And Booking Machine Operator 10/28/24 Learning Manager Relationship Specialty Start Date End Date Tu Canela MD [address] [facility] [place] [address] PCP - General Family Medicine 07/08/12 Rosie Syed APRN.CALENDER WORKER HELPER [address] [facility] [place] [address] Director Facilities Maintenance [facility] 10/20/24 Shobha Morel APRN.CALENDER WORKER HELPER [address] [facility] [place] [address] Director Facilities Maintenance [facility] 10/20/24 Eliseo Michele, superintendent landfill operations Stripping And Booking Machine Operator 10/28/24 Learning Manager Relationship Specialty Start Date End Date Tu Canela MD [address] [facility] [place] [address] PCP - General Family Medicine 07/08/12 Rosie Syed APRN.CALENDER WORKER HELPER [address] [facility] [place] [address] Director [facility] 10/20/24 Shobha Morel APRN.CALENDER WORKER HELPER [address] [facility] [place] [address] [facility] 10/20/24 Eliseo Michele, superintendent landfill operations Stripping And Booking Machine Operator 10/28/24 Learning Manager Relationship Specialty Start Date End Date Tu Canela MD [address] [facility] [place] [address] PCP - General Family Medicine 07/08/12 Rosie Syed APRN.CALENDER WORKER HELPER [address] [facility] [place] [address] [facility] 10/20/24 Shobha Morel APRN.CALENDER WORKER HELPER [address] [facility] [place] [address] [facility] 10/20/24 Learning Manager Relationship Specialty Start Date End Date Tu Canela MD [address] [place] [address] PCP - General Family Medicine 07/08/12 Rosie Syed APRN.CALENDER WORKER HELPER [address] [facility] [place] [address] [facility] 10/20/24 Shobha Morel APRN.CALENDER WORKER HELPER [address] [facility] [place] [address] Director [facility] 10/20/24 Learning Manager Relationship Specialty Start Date End Date Tu Canela MD [address] [facility] [place] [address] PCP - General Family Medicine 07/08/12 Rosie Syed APRN.CALENDER WORKER HELPER [address] [facility] [place] [address] Director [facility] 10/20/24 Shobha Morel APRN.CALENDER WORKER HELPER [address] [facility] [place] [address] Director [facility] 10/20/24 Learning Manager Relationship Specialty Start Date End Date Tu Canela MD [address] [facility] [place] [address] PCP - General Family Medicine 07/08/12 Rosie Syed APRN.CALENDER WORKER HELPER [address] [facility] [place] [address] [facility] 10/20/24 Shobha Morel APRN.CALENDER WORKER HELPER [address] [place] [address] Director [facility] 10/20/24 Learning Manager Relationship Specialty Start Date End Date Tu Canela MD [address] [facility] [place] [address] PCP - General Family Medicine 07/08/12 Rosie Syed MAINTENANCE DIRECTOR.CALENDER WORKER HELPER [address] [place] [address] Director Facilities Maintenance [facility] 10/20/24 Shobha Morel APRN.CALENDER WORKER HELPER [address] [facility] [place] [address] Director Facilities Maintenance [facility] 10/20/24 Learning Manager Relationship Specialty Start Date End Date Tu Canela MD [address] [place] [address] PCP - General Family Medicine 07/08/12 Rosie Syed APRN.CALENDER WORKER HELPER [address] [place] [address] Director Facilities Maintenance [facility] 10/20/24 Shobha Morel APRN.CALENDER WORKER HELPER [address] [place] [address] Director [facility] 10/20/24 Learning Manager Relationship Specialty Start Date End Date Tu Canela MD [address] [place] [address] PCP - General Family Medicine 07/08/12 Rosie Syed APRN.CALENDER WORKER HELPER [address] [place] [address] Director [facility] 10/20/24 Shobha Morel APRN.CALENDER WORKER HELPER [address] [place] [address] Director Facilities Maintenance [facility] 10/20/24 Learning Manager Relationship Specialty Start Date End Date Tu Canela MD [address] [place] [address] PCP - General Family Medicine 07/08/12 Rosie Syed MAINTENANCE DIRECTOR.CALENDER WORKER HELPER [address] [place] [address] Director Facilities Maintenance [facility] 10/20/24 Shobha Morel MAINTENANCE DIRECTOR.CALENDER WORKER HELPER [address] [place] [address] Director Facilities Maintenance [facility] 10/20/24 Learning Manager Relationship Specialty Start Date End Date Tu Canela MD [address] [place] [address] PCP - General Family Medicine 07/08/12 Rosie Syed MAINTENANCE DIRECTOR.CALENDER WORKER HELPER [address] [place] [address] Director Facilities Maintenance [facility] 10/20/24 Shobha Morel MAINTENANCE DIRECTOR.CALENDER WORKER HELPER [address] [place] [address] Director [facility] 10/20/24 Learning Manager Relationship Specialty Start Date End Date Tu Canela MD [address] [place] [address] PCP - General Family Medicine 07/08/12 Rosie Syed MAINTENANCE DIRECTOR.CALENDER WORKER HELPER [address] [place] [address] Director Facilities Maintenance [facility] 10/20/24 Shobha Morel MAINTENANCE DIRECTOR.CALENDER WORKER HELPER [address] [place] [address] [facility] 10/20/24 Learning Manager Relationship Specialty Start Date End Date Tu Canela MD [address] [facility] [place] [address] PCP - General Family Medicine 07/08/12 Rosie Syed APRN.CALENDER WORKER HELPER [address] [facility] [place] [address] Director Facilities Maintenance [facility] 10/20/24 Shobha Morel MAINTENANCE DIRECTOR.CALENDER WORKER HELPER [address] [facility] [place] [address] Director [facility] 10/20/24 Learning Manager Relationship Specialty Start Date End Date Tu Canela MD [address] [facility] [place] [address] PCP - General Family Medicine 07/08/12 Rosie Syed MAINTENANCE DIRECTOR.CALENDER WORKER HELPER [address] [place] [address] Director Facilities Maintenance [facility] 10/20/24 Shobha Morel MAINTENANCE DIRECTOR.CALENDER WORKER HELPER [address] [facility] [place] [address] Director Facilities Maintenance [facility] 10/20/24 Learning Manager Relationship Specialty Start Date End Date Tu Canela MD [address] [facility] [place] [address] PCP - General Family Medicine 07/08/12 Rosie Syed APRN.CALENDER WORKER HELPER [address] [place] [address] Director Facilities Maintenance [facility] 10/20/24 Shobha Morel MAINTENANCE DIRECTOR.CALENDER WORKER HELPER [address] [place] [address] Director Facilities Maintenance [facility] 10/20/24 Learning Manager Relationship Specialty Start Date End Date Tu Canela MD [address] [place] [address] PCP - General Family Medicine 07/08/12 Rosie Syed APRN.CALENDER WORKER HELPER [address] [place] [address] Director Facilities Maintenance [facility] 10/20/24 Shobha Morel APRN.CALENDER WORKER HELPER [address] [place] [address] Director [facility] 10/20/24 Learning Manager Relationship Specialty Start Date End Date Tu Canela MD [address] [place] [address] PCP - General Family Medicine 07/08/12 Rosie Syed APRN.CALENDER WORKER HELPER [address] [place] [address] Director Facilities Maintenance [facility] 10/20/24 Shobha Morel MAINTENANCE DIRECTOR.CALENDER WORKER HELPER [address] [place] [address] [facility] 10/20/24 Learning Manager Relationship Specialty Start Date End Date Tu Canela MD [address] [place] [address] PCP - General Family Medicine 07/08/12 Rosie Syed APRN.CALENDER WORKER HELPER [address] [place], [place] [id number] [facility] 10/20/24 Shobha Morel APRN.CALENDER WORKER HELPER [address] [place], [place] [address] [facility] 10/20/24 Learning Manager Relationship Specialty Start Date End Date Tu Canela MD [address] [place], [place] [address] PCP - General Family Medicine 07/08/12 Rosie Syed APRN.CALENDER WORKER HELPER [address] [place], [place] [address] [phone] [facility] 10/20/24 Shobha Morel APRN.CALENDER WORKER HELPER [address] [place], [place] [address] [facility] 10/20/24 Learning Manager Relationship Specialty Start Date End Date Tu Canela MD [address] [place], [place] [id number] PCP - General Family Medicine 07/08/12 Rosie Syed APRN.CALENDER WORKER HELPER [address] [place], [place] [address] [facility] 10/20/24 Shobha Morel MAINTENANCE DIRECTOR.CALENDER WORKER HELPER [address] [place], [place] [address] [facility] 10/20/24 Goals (unrecognized section and content) Goals may be documented in a n alternate sectionGoals may be documented in an alternate sectionGoals may be documented in an alternate sectionGoals may be documented in an alternate sectionGoals may be documented in an alternate section INFORMATION SOURCE (unrecogn ized section and content) DATE CREATED AUTHOR 10/22/2024 [facility] DATE CREATED AUTHOR AUTHOR'S ORGANIZ ATION 01/20/2025 [facility] DATE CREATED AUTHOR AUTHOR'S ORGANIZ ATION 02/05/2025 [facility] DATE CREATED AUTHOR AUTHOR'S ORGANIZ ATION 06/13/2025 [facility] FOR RECORDS PERTAINING TO PATIENTS WHO [...] BE BASED ON THE PRIMARY CLINICAL RECORDS. [facility] [employer] [facility]. provides no warranty or guarantee of the accuracy or completeness of information in this document.
[2025-09-20] VITALS (11 sets, daily range): BP systolic 125–151; BP diastolic 48–60; PULSE 70–87; RESP 15–18; TEMP 36.3–36.7; O2SAT 79–98; BMI 28.3
[2025-09-20 04:02] LABS: Hematocrit 32.3 % (37-47); Hemoglobin 10.5 g/dL (12.0-15.0); Immature Granulocytes Count 0.020 X10^3/uL (0.0-0.0); Mean Corp Hgb Conc 32.5 g/dL (32-36); Mean Corpuscular Volume 83.7 fL (81-99); Mean Platelet Vol. 9.8 fl (6.2-12.0); NRBC Flagged by Analyzer 0 % (0-5); Platelet Count 159 K/mm3 (150-450); RBC Distribution Width CV 15.2 % (11.6-14.6); RBC Distribution Width SD 45.8 fl (35.1-43.9); Red Blood Count 3.86 M/mm3 (4.2-5.4); White Blood Count 5.5 K/mm3 (4.4-11.0)
[2025-09-20 04:34] LABS: Anion Gap 10 (5-15); BUN 19 mg/dL (4-19); BUN/Creat Ratio 21.7 RATIO (10-20); Calcium,Total 8.6 mg/dL (7.6-11.0); Carbon Dioxide 23.5 mmol/L (21.0-32.0); Chloride 107 mmol/L (98-108); Estimated Creatinine Clearance 50.76 ml/min (50-250); Glucose 112 mg/dL (70-99); Potassium 3.8 mmol/L (3.3-5.1)
[2025-09-20] MEDS: Budesonide Respules 0.5 MG/2 ML AMPUL.NEB. INHALATION ×2 (07:31→20:01)
--- NOTE | 2025-09-20 07:37 | PCM.CONS.GEN ---
Assessment & Plan Assessment/Plan (1) Nondisplaced fracture of fifth right metatarsal bone: QUALIFIERS: Encounter type: initial encounter Fracture type: closed Qualified Code(s): S92.354A - Nondisplaced fracture of fifth metatarsal bone, right foot, initial encounter for closed fracture (2) Pain in right foot: PLAN: Plan Evaluation performed. Reviewed right foot xrays, 3 views, from 09/19/2025 and noted there is nondisplaced base of 5th metatarsal tuberosity. This was discussed with her. Applied soft cast to right foot/ankle - keep clean, dry and intact. Ordered CAM Walker boot for left foot/ankle - keep foot protected in CAM boot with all weightbearing and ambulation. Ok for partial weightbearing left foot keeping right foot protected in CAM boot, and assisted with a walker. Thank you for consult, Podiatry will continue to follow, please call sooner if needed. Otherwise patient to follow up in our office in 7-10 days but sooner if needed. HPI Consult Data Date of Consult: 09/20/25 HPI Narrative Reason for Consultation: Right foot fracture HPI Narrative: FLORECITA HERNANDEZ, is a 84 F who presented to ER yesterday after a fall. She was found to have multiple fractures, with a fracture of the base of the right 5th metatarsal. She has been admitted. She relates to right foot pain - points to lateral midfoot. She relates to back pain as well. She relates to history of following with vascular surgery Dr. Montejo at [facility] for venous disease, had veins stripped in the past. Also relates to old work injury many years ago and she lost her part of her left 1st toe. She also relates she also lost her foot due to the COVID booster. She is resting in bed, relates she lives at home with her dog. She relates to history of psoriasis. She has no other complaints at this time. [facility] Medical History Essential hypertension Wears dentures Cancer Eczema Arthritis Fatty liver Smoker Shortness of breath on exertion Edema Dermatitis Prediabetes Chronic kidney disease, unspecified History of Jovana thyroiditis Amputation toe Pulmonary nodule Psoriasis Osteopenia Hyperlipidemia Chronic pain Breast cancer of upper-outer quadrant of left female breast Diverticulosis Constipation Home Medications ?Medication ?Instructions ?Recorded ?Last Taken ?Type diphenhydramine 25 2 ea PO QHS 05/05/15 09/18/25 History mg-acetaminophen 500 mg tablet (Tylenol PM Extra Strength) levothyroxine 25 mcg tablet 25 mcg PO DAILY 05/05/15 09/19/25 History vitamin E (dl, acetate) 180 mg 400 units PO DAILY 05/05/15 09/19/25 History (400 unit) capsule baclofen 10 mg tablet 10 mg PO DAILY 03/23/22 09/18/25 History cholecalciferol (vitamin D3) 50 50 mcg PO DAILY 03/23/22 09/19/25 History mcg (2,000 unit) capsule biotin 10 mg tablet 10 mg PO DAILY 05/24/22 09/19/25 History multivitamin 1 tab PO DAILY 05/24/22 09/19/25 History aspirin 81 mg capsule 81 mg PO DAILY MD ordered 09/19/25 Unknown History carvedilol 6.25 mg tablet 6.25 mg PO DAILY 09/19/25 09/19/25 History losartan 100 mg tablet 100 mg PO DAILY 09/19/25 09/19/25 History nifedipine 90 mg tablet,extended 90 mg PO DAILY 09/19/25 09/19/25 History release 24 hr pregabalin 25 mg capsule 50 mg PO QHS 09/19/25 09/18/25 History Allergy/AdvReac Type Severity Reaction Status Date / Time carisoprodol (From Soma) Allergy Hives Verified 09/19/25 17:36 propoxyphene napsylate (From Allergy Other Verified 09/19/25 17:36 Darvocet-N) Family History Father Heart disease Black lung Mother Rheumatoid arthritis Sister Diabetes Cancer Kidney Brother Cancer Lung Surgical History H/O thyroidectomy History of carpal tunnel release H/O: hysterectomy Hx of cholecystectomy Social History Smoking Status: Current every day smoker tobacco type: cigarettes alcohol intake: never substance use type: does not use Physical Exam Const alert, oriented x3 and no apparent distress Constitutional Narrative: Bilateral foot/ankle: No open lesions, no cellulitis, no drainage, no fluctuance, no crepitus, no visible abscess, minimal to no ecchymosis right foot, there is POP to base of the 5th metatarsal right foot, sensation is intact bilateral, motor function intact bilateral, muscle strength intact bilateral to major muscle groups bilateral, no gross in stability bilateral, no other areas of POP or pain on ROM bilateral, no calf pain bilateral, CFT < 2 seconds to all toes, pedal pulses intact with doppler bilateral, diffuse edema bilateral lower extremity but calf is soft and supple, some diffuse hemosiderin deposition c/w venous insufficiency bilateral lower extremity. Lab / Micro Data 09/20/25 03:46 09/20/25 03:46 Labs: Laboratory Results - last 24 hr 09/19/25 20:09: WBC 6.3, RBC 4.21, Hgb 11.5 L, Hct 35.6 L, MCV 84.6, MCH 27.3, MCHC 32.3, RDW Std Deviation 46.9 H, RDW Coeff of Georgi 15.4 H, Plt Count 172, MPV 10.3, Immature Gran % (Auto) 0.600, Neut % (Auto) 68.6, Lymph % (Auto) 18.8 L, Valley % (Auto) 10.9 H, Eos % (Auto) 0.8, Baso % (Auto) 0.3, Absolute Neuts (auto) 4.3, Absolute Lymphs (auto) 1.19, Nucleated RBC % 0, Sodium 144, Potassium 4.0, Chloride 108, Carbon Dioxide 24.5, Anion Gap 11, BUN 22 H, Creatinine 0.94, Estim Creat Clear Calc 48.89 L, Est GFR (MDRD) Non-Af 61, BUN/Creatinine Ratio 23.0 H, Glucose 109 H, Calcium 9.0, Phosphorus 3.1, Magnesium 2.4 H, Total Bilirubin 0.59, AST 29, ALT 19, Alkaline Phosphatase 108 H, NT pro BNP II 1059, Total Protein 6.7, Albumin 4.0, Globulin 2.7, Albumin/Globulin Ratio 1.5, Vitamin D 25-Hydroxy 87.0, TSH 3.980 09/20/25 03:46: WBC 5.5, RBC 3.86 L, Hgb 10.5 L, Hct 32.3 L, MCV 83.7, MCH 27.2, MCHC 32.5, RDW Std Deviation 45.8 H, RDW Coeff of Georgi 15.2 H, Plt Count 159, MPV 9.8, Immature Gran % (Auto) 0.400, Neut % (Auto) 60.7, Lymph % (Auto) 22.7, Valley % (Auto) 14.7 H, Eos % (Auto) 1.1, Baso % (Auto) 0.4, Absolute Neuts (auto) 3.3, Absolute Lymphs (auto) 1.24, Nucleated RBC % 0, Sodium 140, Potassium 3.8, Chloride 107, Carbon Dioxide 23.5, Anion Gap 10, BUN 19, Creatinine 0.87, Estim Creat Clear Calc 50.76, Est GFR (MDRD) Non-Af 66, BUN/Creatinine Ratio 21.7 H, Glucose 112 H, Calcium 8.6 Micro: Microbiology 09/19/25 20:53 Mucosa - Nose SARS-CoV-2, Influenza & RSV (PCR) - Final Imaging Radiology Impression Ankle X-Ray 09/19/25 18:25 IMPRESSION: Acute nondisplaced pseudo-Avalos avulsion type fracture of the 5th metatarsal base. Reading Location: [facility] Lumbar Spine X-Ray 09/19/25 18:25 IMPRESSION: Age-indeterminate compression fractures of L1 and L3. Mild spondylotic changes. Reading Location: [facility] Shoulder X-Ray 09/19/25 18:25 IMPRESSION: No acute fracture or dislocation. Reading Location: [facility] Foot X-Ray 09/19/25 18:45 IMPRESSION: Acute nondisplaced pseudo-Avalos avulsion type fracture of the 5th metatarsal base. Reading Location: [facility] Chest X-Ray 09/19/25 20:50 IMPRESSION: No focal consolidation or sizable pleural effusion. Mild diffuse hazy and reticular airspace opacities may reflect atypical/viral infection or possibly interstitial edema. Reading Location: [id number]
[2025-09-20] MEDS: Cholecalciferol (VIT D3) 25 MCG TABLET (1,000 UNITS) 50 MCG PO (08:21)
[2025-09-20] MEDS: NIFEdipine 90 MG Tablet PO (08:23)
--- NOTE | 2025-09-20 12:35 | PCM.PN.HOSP ---
Reason for Visit Chief Complaint: Intractable pain and difficulty with ambulation Subjective Subjective Patient reports foot pain possibly slightly better however that her left knee has hurt progressively more since yesterday, continues to have back pain and reports pain somewhat overall in general. Reports some chronic numbness and tingling bilateral lower extremities which she has attributed to neuropathy denies any new focal complaints of sensory changes or weakness Objective Data Objective Data Vital Signs: Vital Signs Temp Pulse Resp BP Pulse Ox O2 Del Method O2 Flow Rate 98.1 F 72 16 127/51 H 98 Nasal Cannula 2 09/20/25 11:22 09/20/25 11:22 09/20/25 11:22 09/20/25 11:22 09/20/25 11:22 09/20/25 11:22 09/20/25 11:22 Oxygen Flow Rate (L/min) 2 Oxygen Delivery Method Nasal Cannula Weight: 77.3 kg Body Mass Index (BMI) 28.3 Intake & Output: Intake and Output for Last 24 Hours 09/18/25 09/19/25 09/20/25 23:59 23:59 23:59 Intake Total 500 / 500 Output Total 250 / 250 Balance 250 / 250 Lab / Micro Data 09/20/25 03:46 09/20/25 03:46 Labs: Laboratory Results - last 24 hr 09/19/25 20:09: WBC 6.3, RBC 4.21, Hgb 11.5 L, Hct 35.6 L, MCV 84.6, MCH 27.3, MCHC 32.3, RDW Std Deviation 46.9 H, RDW Coeff of Georgi 15.4 H, Plt Count 172, MPV 10.3, Immature Gran % (Auto) 0.600, Neut % (Auto) 68.6, Lymph % (Auto) 18.8 L, [place] % (Auto) 10.9 H, Eos % (Auto) 0.8, Baso % (Auto) 0.3, Absolute Neuts (auto) 4.3, Absolute Lymphs (auto) 1.19, Nucleated RBC % 0, Sodium 144, Potassium 4.0, Chloride 108, Carbon Dioxide 24.5, Anion Gap 11, BUN 22 H, Creatinine 0.94, Estim Creat Clear Calc 48.89 L, Est GFR (MDRD) Non-Af 61, BUN/Creatinine Ratio 23.0 H, Glucose 109 H, Calcium 9.0, Phosphorus 3.1, Magnesium 2.4 H, Total Bilirubin 0.59, AST 29, ALT 19, Alkaline Phosphatase 108 H, NT pro BNP II 1059, Total Protein 6.7, Albumin 4.0, Globulin 2.7, Albumin/Globulin Ratio 1.5, Vitamin D 25-Hydroxy 87.0, TSH 3.980 09/20/25 03:46: WBC 5.5, RBC 3.86 L, Hgb 10.5 L, Hct 32.3 L, MCV 83.7, MCH 27.2, MCHC 32.5, RDW Std Deviation 45.8 H, RDW Coeff of Georgi 15.2 H, Plt Count 159, MPV 9.8, Immature Gran % (Auto) 0.400, Neut % (Auto) 60.7, Lymph % (Auto) 22.7, [place] % (Auto) 14.7 H, Eos % (Auto) 1.1, Baso % (Auto) 0.4, Absolute Neuts (auto) 3.3, Absolute Lymphs (auto) 1.24, Nucleated RBC % 0, Sodium 140, Potassium 3.8, Chloride 107, Carbon Dioxide 23.5, Anion Gap 10, BUN 19, Creatinine 0.87, Estim Creat Clear Calc 50.76, Est GFR (MDRD) Non-Af 66, BUN/Creatinine Ratio 21.7 H, Glucose 112 H, Calcium 8.6 Micro: Microbiology 09/19/25 20:53 Mucosa - Nose SARS-CoV-2, Influenza & RSV (PCR) - Final Radiography Diagnostic Testing: Radiology Impression Ankle X-Ray 09/19/25 18:25 IMPRESSION: Acute nondisplaced pseudo-Avalos avulsion type fracture of the 5th metatarsal base. Reading Location: [facility] Lumbar Spine X-Ray 09/19/25 18:25 IMPRESSION: Age-indeterminate compression fractures of L1 and L3. Mild spondylotic changes. Reading Location: [facility] Shoulder X-Ray 09/19/25 18:25 IMPRESSION: No acute fracture or dislocation. Reading Location: [facility] Foot X-Ray 09/19/25 18:45 IMPRESSION: Acute nondisplaced pseudo-Avalos avulsion type fracture of the 5th metatarsal base. Reading Location: [facility] Chest X-Ray 09/19/25 20:50 IMPRESSION: No focal consolidation or sizable pleural effusion. Mild diffuse hazy and reticular airspace opacities may reflect atypical/viral infection or possibly interstitial edema. Reading Location: [facility] Physical Exam Narrative General: Alert, oriented, no apparent distress HEENT: Atraumatic, normocephalic Eyes: Anicteric, normal conjunctiva, extraocular movements grossly intact Neck: Supple Respiratory: Somewhat diminished bilaterally, normal respiratory effort Cardiovascular: Regular rate GI: Soft, nontender, nondistended Extremities: No edema Musculoskeletal: Right foot in soft cast, reports some left knee pain but with no focal tenderness somewhat just diffuse Neuro: No overt focal neurological deficits Skin: No rashes appreciated Psych: Cooperative Assessment & Plan Assessment/Plan (1) Nondisplaced fracture of fifth right metatarsal bone: QUALIFIERS: Encounter type: initial encounter Fracture type: closed Qualified Code(s): S92.354A - Nondisplaced fracture of fifth metatarsal bone, right foot, initial encounter for closed fracture (2) Lumbar compression fracture: (3) Hypoxia: PLAN: Plan # Fracture at base of fifth metatarsal -right foot xrays, 3 views, from 09/19/2025 and noted there is nondisplaced base of 5th metatarsal tuberosity - Evaluated by podiatry, soft cast applied to right foot and ankle - CAM walker boot ordered - Okay for partial weightbearing keeping right foot protected in cam boot and assistance with walker - Will need to follow-up outpatient with podiatry - Continue supportive care and pain control - Case management social work consults # Age-indeterminate compression fractures of L1 and L3 - Suspect acute given pain after fall - Supportive care - PT/OT - Patient not improving tomorrow may need to consider pain management or orthospine consult - Denies any new focal neurocomplaints # Acute hypoxia - Desaturated in the 80s in the ED and placed on 2 L O2 - Chest x-ray with no focal consolidation, queried some mild diffuse hazy reticular airspace opacities of unclear etiology - Patient denies any respiratory complaints - COVID/flu/RSV negative - DuoNebs/Pulmicort - Does have smoking history so may have underlying COPD - Continue supportive care #Hypothyroidism -Continue Synthroid #Tobacco use -Advise cessation -Nicotine replacement available if desired #Hypertension - Continue home medications #DVT ppx: Lovenox subcu Elena Griffin MD Charges/Coding Visit Charges Inpatient E&M: 88626 Subs Hosp L2
--- NOTE | 2025-09-20 12:43 | RAD_ITS ---
PROCEDURE: LEFT KNEE 1 OR 2 VIEWS 09/20/2025 REASON FOR EXAM: LEFT KNEE PAIN AFTER FALL TECHNIQUE: Procedure Code: RADK Modality: DX Procedure: KNEE 1 OR 2 VIEWS Laterality: Left COMPARISON: None. FINDINGS: No acute fracture or dislocation appreciated. Joint spaces are relatively well preserved without erosion or substantial arthrosis. No joint effusion or focal soft tissue swelling appreciated. RAD/Knee 1 or 2 Views IMPRESSION: No acute fracture, dislocation, or significant arthrosis. Reading Location: [id number]
[2025-09-21] VITALS (11 sets, daily range): BP systolic 115–142; BP diastolic 45–70; PULSE 71–80; RESP 16–18; TEMP 36.6–37.1; O2SAT 84–95; BMI 28.7
[2025-09-21] MEDS: Budesonide Respules 0.5 MG/2 ML AMPUL.NEB. INHALATION ×2 (07:18→19:57)
[2025-09-21 07:29] LABS: Hematocrit 31.1 % (37-47); Hemoglobin 9.8 g/dL (12.0-15.0); Mean Corp Hgb Conc 31.5 g/dL (32-36); Mean Corpuscular Volume 84.5 fL (81-99); Mean Platelet Vol. 10.5 fl (6.2-12.0); Platelet Count 151 K/mm3 (150-450); RBC Distribution Width CV 15.0 % (11.6-14.6); RBC Distribution Width SD 46.2 fl (35.1-43.9); Red Blood Count 3.68 M/mm3 (4.2-5.4); White Blood Count 4.5 K/mm3 (4.4-11.0)
[2025-09-21] MEDS: NIFEdipine 90 MG Tablet PO (07:37)
[2025-09-21] MEDS: Cholecalciferol (VIT D3) 25 MCG TABLET (1,000 UNITS) 50 MCG PO (07:37)
[2025-09-21 07:38] LABS: Anion Gap 11 (5-15); BUN 16 mg/dL (4-19); BUN/Creat Ratio 19.2 RATIO (10-20); Calcium,Total 8.8 mg/dL (7.6-11.0); Carbon Dioxide 22.0 mmol/L (21.0-32.0); Chloride 105 mmol/L (98-108); Estimated Creatinine Clearance 53.34 ml/min (50-250); Glucose 100 mg/dL (70-99); Potassium 4.0 mmol/L (3.3-5.1)
--- NOTE | 2025-09-21 10:22 | PN.HOSP_ITS ---
Subjective Subjective Continues to have some lower extremity pain, no issues overnight Objective Data Objective Data Vital Signs: Vital Signs Temp Pulse Resp BP Pulse Ox O2 Del Method O2 Flow Rate 98.6 F 73 16 142/61 H 94 Nasal Cannula 4 09/21/25 09:28 09/21/25 09:28 09/21/25 09:28 09/21/25 09:28 09/21/25 09:28 09/21/25 09:28 09/21/25 09:28 Oxygen Flow Rate (L/min) 4 Oxygen Delivery Method Nasal Cannula Weight: 172 lb 2.896 oz Body Mass Index (BMI) 28.7 Intake & Output: Intake and Output for Last 24 Hours 09/20/25 09/21/25 09/22/25 03:59 03:59 03:59 Intake Total 800 / 800 Output Total 650 / 650 150 / 150 Balance 150 / 150 -150 / -150 Lab / Micro Data 09/21/25 06:45 09/21/25 06:45 Labs: Laboratory Results - last 24 hr 09/21/25 06:45: WBC 4.5, RBC 3.68 L, Hgb 9.8 L, Hct 31.1 L, MCV 84.5, MCH 26.6 L , MCHC 31.5 L, RDW Std Deviation 46.2 H, RDW Coeff of Georgi 15.0 H, Plt Count 151, MPV 10.5, Sodium 137, Potassium 4.0, Chloride 105, Carbon Dioxide 22.0, Anion Gap 11, BUN 16, Creatinine 0.84, Estim Creat Clear Calc 53.34, Est GFR (MDRD) Non-Af 70, BUN/Creatinine Ratio 19.2, Glucose 100 H, Calcium 8.8 Micro: Microbiology 09/19/25 20:53 Mucosa - Nose SARS-CoV-2, Influenza & RSV (PCR) - Final Radiography Diagnostic Testing: Radiology Impression Knee X-Ray 09/20/25 12:43 IMPRESSION: No acute fracture, dislocation, or significant arthrosis. Reading Location: [facility] Physical Exam Narrative General: Alert, Oriented x3, Cooperative, No apparent distress HEENT: Atraumatic, PERRLA, EOMI, Normocephalic Oral: Moist Mucosa Neck: Supple, No JVD Lungs: Diminished, Normal air movement, No rhonchi, No wheeze, No rales Cardiovascular: Regular rate, Regular Rhythm, Normal S1, Normal S2, No murmurs Abdomen: Soft, Non Tender, Non-Distended, No Hepato-splenomegaly Extremities: No edema, Capillary Refill Less than 3 Seconds Skin: No rashes, No breakdown Musculoskeletal: Right lower extremity in a soft cast Neurological: No focal neurological deficits, moves all extremities though right lower extremity is limited secondary to fracture Psych/Mental Status: Normal Affect, Appropriate Assessment & Plan Assessment/Plan (1) Nondisplaced fracture of fifth right metatarsal bone: QUALIFIERS: Encounter type: initial encounter Fracture type: c losed Qualified Code(s): S92.354A - Nondisplaced fracture of fifth metatarsal bone, right foot, initial encounter for closed fracture (2) Lumbar compression fracture: (3) Hypoxia: PLAN: Plan # Fracture at base of fifth metatarsal -right foot xrays, 3 views, from 09/19/2025 and noted there is nondisplaced base of 5th metatarsal tuberosity - Evaluated by podiatry, soft cast applied to right foot and ankle - CAM walker boot ordered - Okay for partial weightbearing keeping right foot protected in cam boot and assistance with walker - Will need to follow-up outpatient with podiatry - Continue supportive care and pain control - Case management social work consults 09/21/2025: Appreciate podiatry's assistance, continue with PT/OT to determine outpatient disposition # Age-indeterminate compression fractures of L1 and L3 - Suspect acute given pain after fall - Supportive care - PT/OT - Patient not improving tomorrow may need to consider pain management or orthospine consult - Denies any new focal neurocomplaints # Acute hypoxia - Desaturated in the 80s in the ED and placed on 2 L O2 - Chest x-ray with no focal consolidation, queried some mild diffuse hazy reticular airspace opacities of unclear etiology - Patient denies any respiratory complaints - COVID/flu/RSV negative - DuoNebs/Pulmicort - Does have smoking history so may have underlying COPD - Continue supportive care 09/21/2025: Oxygen requirements are up to 4 L, continue with ISS and PAP. Will obtain a respiratory panel #Hypothyroidism -Continue Synthroid #Tobacco use -Advise cessation -Nicotine replacement available if desired #Hypertension - Continue home medications DVT: Lovenox Charges/Coding Visit Charges Inpatient E&M: 63581 Subs Hosp L2
--- NOTE | 2025-09-21 11:34 | CASEMGMT ---
SW Assessment: Face to Face with pt for initial transition planning/care coordination assessment. SW introduced self and role at [facility], pt voices understanding and consents to assessment. Pt is A&O x4 and answers all questions appropriately at this time. Care providers, pharmacy, and demographics verified/updated. Admitting Dx: fall/lumbar fx with intractable pain PCP: Carisa Specialists: None reported Preferred [facility]acy: [facility] Insurance:[employer] M[employer] Prescription Benefit: yes LNOK: grandson, son, DIL Living Arrangements: Pt lives alone in a duplex with a few steps up to the stoop and a flight of stairs from the garage. Transportation: Pt drives self and denies concerns with transportation. DME: Shower chair, rollator, walker, cane HHC/SNF: [facility] HHC previous. Pt states no concerns with going home at time of dc. Pt states no further concerns/needs. Pt reports that she has a granddaughter that is a nurse and a DIL who is an OT. Pt reports that she doesn't like people in her home or people telling her how to do things and refuses HHC or SNF at this time. SW encouraged that movement is medicine and that pt would benefit from working with therapy while at [facility] so that pt can see what her needs will be at home upon d/c. Pt refusing stating that pt feels therapy is not needed. SW to follow. Pt Goal: Home, no needs Plan: Pt refusing SNF, as she wants to go home. SW remains available to follow. CLARENCE Wilson
--- NOTE | 2025-09-21 16:01 | CHAPLAIN ---
Type of Pastoral Visit _x__ Initial Visit ___ Follow-up Visit ___ On-call Visit ___ General Patient Visit ___ Spiritual Assessment ___ Family Conference ___ Bereavement ___ Rapid Response ___ Code Blue ___ Other (describe below) Pastoral Care Referral From _x__ Patient ___ Family ___ Nurse ___ Physician ___ Silverware Etcher ___ Band Cutter ___ Other (describe below) Sacrament/Intervention _x__ Active listening ___ Anointing ___ Sikhism ___ Bereavement ___ Communion ___ Suzanna exploration ___ ___ Life review _x__ Prayer ___ Reconciliation ___ Sacrament of Sick _x__ Supportive presence ___ Wedding ___ Other (describe below) Pastoral Comments patient is welcoming and happy to talk about her life; pt describes her injuries and her concerns; pt is also thankful that injuries were not worse; pt acknowledges current pain but believes she can go home and care for herself; pt expresses these feelings strongly; pt welcomes a prayer
[2025-09-21] MEDS: Senna/Docusate Sodium 1 Tablet 2 TABLET PO (20:46)
[2025-09-22] VITALS (11 sets, daily range): BP systolic 114–155; BP diastolic 50–71; PULSE 69–85; RESP 15–18; TEMP 36.6–37.1; O2SAT 88–97; BMI 28.3
[2025-09-22] MEDS: Budesonide Respules 0.5 MG/2 ML AMPUL.NEB. INHALATION ×2 (07:13→19:59)
[2025-09-22] MEDS: Cholecalciferol (VIT D3) 25 MCG TABLET (1,000 UNITS) 50 MCG PO (10:01)
[2025-09-22] MEDS: NIFEdipine 90 MG Tablet PO (10:02)
--- NOTE | 2025-09-22 12:09 | PN.HOSP_ITS ---
Subjective Subjective Oxygen requirements are slightly improved. Respiratory panel is negative Objective Data Objective Data Vital Signs: Vital Signs Temp Pulse Resp BP Pulse Ox O2 Del Method O2 Flow Rate 98.0 F 85 16 114/71 94 Nasal Cannula 2 09/22/25 08:00 09/22/25 08:00 09/22/25 08:00 09/22/25 08:00 09/22/25 08:00 09/22/25 08:00 09/22/25 08:00 Oxygen Flow Rate (L/min) 2 Oxygen Delivery Method Nasal Cannula Weight: 170 lb 3.15 oz Body Mass Index (BMI) 28.3 Intake & Output: Intake and Output for Last 24 Hours 09/21/25 09/22/25 09/23/25 03:59 03:59 03:59 Intake Total 800 / 800 700 / 700 300 / 300 Output Total 650 / 650 150 / 150 Balance 150 / 150 550 / 550 300 / 300 Lab / Micro Data 09/21/25 06:45 09/21/25 06:45 Micro: Microbiology 09/21/25 10:49 Mucosa - Nose Respiratory Panel (PCR) - Final 09/19/25 20:53 Mucosa - Nose SARS-CoV-2, Influenza & RSV (PCR) - Final Physical Exam Narrative General: Alert, Oriented x3, Cooperative, No apparent distress HEENT: Atraumatic, PERRLA, EOMI, Normocephalic Oral: Moist Mucosa Neck: Supple, No JVD Lungs: Diminished, Normal air movement, No rhonchi, No wheeze, No rales Cardiovascular: Regular rate, Regular Rhythm, Normal S1, Normal S2, No murmurs Abdomen: Soft, Non Tender, Non-Distended, No Hepato-splenomegaly Extremities: No edema, Capillary Refill Less than 3 Seconds Skin: No rashes, No breakdown Musculoskeletal: Right lower extremity in a soft cast Neurological: No focal neurological deficits, moves all extremities though right lower extremity is limited secondary to fracture Psych/Mental Status: Normal Affect, Appropriate Assessment & Plan Assessment/Plan (1) Nondisplaced fracture of fifth right metatarsal bone: QUALIFIERS: Encounter type: initial encounter Fracture type: c losed Qualified Code(s): S92.354A - Nondisplaced fracture of fifth metatarsal bone, right foot, initial encounter for closed fracture (2) Lumbar compression fracture: (3) Hypoxia: PLAN: Plan # Fracture at base of fifth metatarsal -right foot xrays, 3 views, from 09/19/2025 and noted there is nondisplaced base of 5th metatarsal tuberosity - Evaluated by podiatry, soft cast applied to right foot and ankle - CAM walker boot ordered - Okay for partial weightbearing keeping right foot protected in cam boot and assistance with walker - Will need to follow-up outpatient with podiatry - Continue supportive care and pain control - Case management social work consults 09/21/2025: Appreciate podiatry's assistance, continue with PT/OT to determine outpatient disposition 09/22/2025: She is now agreeable to SNF placement # Age-indeterminate compression fractures of L1 and L3 - Suspect acute given pain after fall - Supportive care - PT/OT - Patient not improving tomorrow may need to consider pain management or orthospine consult - Denies any new focal neurocomplaints 09/22/2025: Resting comfortably, no neurocomplaints # Acute hypoxia - Desaturated in the 80s in the ED and placed on 2 L O2 - Chest x-ray with no focal consolidation, queried some mild diffuse hazy reticular airspace opacities of unclear etiology - Patient denies any respiratory complaints - COVID/flu/RSV negative - DuoNebs/Pulmicort - Does have smoking history so may have underlying COPD - Continue supportive care 09/21/2025: Oxygen requirements are up to 4 L, continue with ISS and PAP. Will obtain a respiratory panel 09/22/2025: Respiratory panel is negative and she is down to 2 L nasal cannula. She likely has a component of COPD however there is no wheeze to indicate need for steroids at this time #Hypothyroidism -Continue Synthroid #Tobacco use -Advise cessation -Nicotine replacement available if desired #Hypertension - Continue home medications DVT: Lovenox Charges/Coding Visit Charges Inpatient E&M: 09077 Subs Hosp L2
--- NOTE | 2025-09-22 12:29 | CASEMGMT ---
Addendum entered by Kaleigh Urban 09/22/25 13:53: Pt states these are her top 3 SNF preferences in order: [facility], [facility]. tarah Mccollum automotive service assistant, made aware. Addendum entered by Kaleigh Urban 09/22/25 13:25: Correction: Per Veda discharge automotive service assistant, [facility] in [place] is a SNF, in addition to AL, but they are not in-network w/pt's dual insurance plan. Pt made aware of this. Addendum entered by Kaleigh Urban 09/22/25 13:14: Pt made aware [facility] is an [facility], not a SNF. She states that is where she was going to go after being discharged from [facility] after having a mini stroke in October, so she is not sure how it can be just an AL. She asked HERNESTO YATES to call her granddaughter, Thanh, @ [phone] to inquire about this. Call placed to Thanh. She states that is where pt had originally requested to go @ dc from [facility], but she does not think [facility] had pursued it as pt had changed her mind. She states she can help pt make decision about what SNF she would like to go to, if pt would like her help. HERNESTO YATES to room and informed pt of conversation w/Thanh. She states she wants to stay local to where she lives. Pt provided SNF list that was prepared by tarah Mccollum automotive service assistant, and asked to give top 3 preferences. She was made aware Thanh offered to help w/linda, if she would like to call her. Addendum entered by Kaleigh Urban 09/22/25 12:39: Pt states she has a dog @ home and that she has spoken w/the girl that walks it and she has agreed to take care of her dog until pt returns home from the SNF. Original Note: HERNESTO YATES NOTE: Per Dr King, pt is agreeable to going to SNF and states she would like to go to [facility]. HERNESTO YATES to room. Pt resting in bed. Introduced pt to self and role. Pt confirms she would like to go to [facility] in [place] and declines wanting list of other SNF options. Pt made aware of referral process and process for insurance approval. She voices appreciation. Message sent to tarha Mccollum automotive service assistant, to have referral sent to [facility] in [place]. Maria R SOSAN RN CM
--- NOTE | 2025-09-22 13:59 | CASEMGMT ---
Addendum entered by Veda Samayoa 09/22/25 14:25: Discharge Planning [facility] has accepted and will submit for precert. RN CM updated Veda Samayoa DC Planning Asst. Original Note: Discharge Planning Referral sent via [facility]Port to [facility]. Veda Samayoa DC Planning Asst.
--- NOTE | 2025-09-22 14:50 | CASEMGMT ---
HERNESTO CM note: Pt made aware [facility] accepted. Maria R SOSAN RN CM
--- NOTE | 2025-09-22 20:17 | CPS ---
pt rinsed and spit x 2
[2025-09-22] MEDS: Senna/Docusate Sodium 1 Tablet 2 TABLET PO (20:22)
[2025-09-23] VITALS (10 sets, daily range): BP systolic 135–159; BP diastolic 48–77; PULSE 70–85; RESP 15–22; TEMP 36.5–37.2; O2SAT 91–98; BMI 28.0
[2025-09-23] MEDS: Budesonide Respules 0.5 MG/2 ML AMPUL.NEB. INHALATION ×2 (07:00→20:42)
--- NOTE | 2025-09-23 08:52 | PN.HOSP_ITS ---
Subjective Subjective No issues overnight, doing well still on 2 L nasal cannula. Objective Data Objective Data Vital Signs: Vital Signs Temp Pulse Resp BP Pulse Ox O2 Del Method O2 Flow Rate 97.7 F L 71 18 152/62 H 96 Nasal Cannula 2 09/23/25 03:44 09/23/25 07:00 09/23/25 07:00 09/23/25 03:44 09/23/25 07:00 09/23/25 07:00 09/23/25 07:00 Oxygen Flow Rate (L/min) 2 Oxygen Delivery Method Nasal Cannula Weight: 167 lb 15.876 oz Body Mass Index (BMI) 28.0 Intake & Output: Intake and Output for Last 24 Hours 09/22/25 09/23/25 09/24/25 03:59 03:59 03:59 Intake Total 700 / 700 600 / 600 Output Total 150 / 150 Balance 550 / 550 600 / 600 Lab / Micro Data 09/21/25 06:45 09/21/25 06:45 Micro: Microbiology 09/21/25 10:49 Mucosa - Nose Respiratory Panel (PCR) - Final 09/19/25 20:53 Mucosa - Nose SARS-CoV-2, Influenza & RSV (PCR) - Final Physical Exam Narrative General: Alert, Oriented x3, Cooperative, No apparent distress HEENT: Atraumatic, PERRLA, EOMI, Normocephalic Oral: Moist Mucosa Neck: Supple, No JVD Lungs: Diminished, Normal air movement, No rhonchi, No wheeze, No rales Cardiovascular: Regular rate, Regular Rhythm, Normal S1, Normal S2, No murmurs Abdomen: Soft, Non Tender, Non-Distended, No Hepato-splenomegaly Extremities: No edema, Capillary Refill Less than 3 Seconds Skin: No rashes, No breakdown Musculoskeletal: Right lower extremity in a soft cast Neurological: No focal neurological deficits, moves all extremities though right lower extremity is limited secondary to fracture Psych/Mental Status: Normal Affect, Appropriate Assessment & Plan Assessment/Plan (1) Nondisplaced fracture of fifth right metatarsal bone: QUALIFIERS: Encounter type: initial encounter Fracture type: c losed Qualified Code(s): S92.354A - Nondisplaced fracture of fifth metatarsal bone, right foot, initial encounter for closed fracture (2) Lumbar compression fracture: (3) Hypoxia: PLAN: Plan # Fracture at base of fifth metatarsal -right foot xrays, 3 views, from 09/19/2025 and noted there is nondisplaced base of 5th metatarsal tuberosity - Evaluated by podiatry, soft cast applied to right foot and ankle - CAM walker boot ordered - Okay for partial weightbearing keeping right foot protected in cam boot and assistance with walker - Will need to follow-up outpatient with podiatry - Continue supportive care and pain control - Case management social work consults 09/21/2025: Appreciate podiatry's assistance, continue with PT/OT to determine outpatient disposition 09/22/2025: She is now agreeable to SNF placement 09/23/2025: Pre-CERT is pending # Age-indeterminate compression fractures of L1 and L3 - Suspect acute given pain after fall - Supportive care - PT/OT - Denies any new focal neurocomplaints 09/22/2025: Resting comfortably, no neurocomplaints # Acute hypoxia - Desaturated in the 80s in the ED and placed on 2 L O2 - Chest x-ray with no focal consolidation, queried some mild diffuse hazy reticular airspace opacities of unclear etiology - Patient denies any respiratory complaints - COVID/flu/RSV negative - DuoNebs/Pulmicort - Does have smoking history so may have underlying COPD - Continue supportive care 09/21/2025: Oxygen requirements are up to 4 L, continue with ISS and PAP. Will obtain a respiratory panel 09/22/2025: Respiratory panel is negative and she is down to 2 L nasal cannula. She likely has a component of COPD however there is no wheeze to indicate need for steroids at this time #Hypothyroidism -Continue Synthroid #Tobacco use -Advise cessation -Nicotine replacement available if desired #Hypertension - Continue home medications DVT: Lovenox Charges/Coding Visit Charges Inpatient E&M: 33991 Subs Hosp L2
[2025-09-23] MEDS: Senna/Docusate Sodium 1 Tablet 2 TABLET PO (10:28)
[2025-09-23] MEDS: Cholecalciferol (VIT D3) 25 MCG TABLET (1,000 UNITS) 50 MCG PO (10:29)
[2025-09-23] MEDS: NIFEdipine 90 MG Tablet PO (10:30)
[2025-09-23] MEDS: Polyethylene Glycol 3350 17 GM PACKET PO ×2 (14:23→22:37)
[2025-09-23] MEDS: MELATONIN 10 MG TABLET PO (22:36)
[2025-09-23] MEDS: 0.9% Saline Lock 10 ML Syringe IV (22:45)
[2025-09-24] VITALS (9 sets, daily range): BP systolic 120–148; BP diastolic 43–74; PULSE 66–71; RESP 14–18; TEMP 36.5–37.1; O2SAT 93–96; BMI 27.9
[2025-09-24] MEDS: Senna/Docusate Sodium 1 Tablet 2 TABLET PO (06:11)
[2025-09-24] MEDS: Sodium Chloride 0.65% 1 SPRAY SPRAY.BTL 2 SPRAY NASAL (06:11)
[2025-09-24 06:29] LABS: Hematocrit 30.5 % (37-47); Hemoglobin 10.0 g/dL (12.0-15.0); Immature Granulocytes Count 0.010 X10^3/uL (0.0-0.0); Mean Corp Hgb Conc 32.8 g/dL (32-36); Mean Corpuscular Volume 82.7 fL (81-99); Mean Platelet Vol. 10.0 fl (6.2-12.0); NRBC Flagged by Analyzer 0 % (0-5); Platelet Count 151 K/mm3 (150-450); RBC Distribution Width CV 15.0 % (11.6-14.6); RBC Distribution Width SD 45.1 fl (35.1-43.9); Red Blood Count 3.69 M/mm3 (4.2-5.4); White Blood Count 4.5 K/mm3 (4.4-11.0)
[2025-09-24 06:56] LABS: Anion Gap 10 (5-15); BUN 15 mg/dL (4-19); BUN/Creat Ratio 19.1 RATIO (10-20); Calcium,Total 9.2 mg/dL (7.6-11.0); Carbon Dioxide 25.4 mmol/L (21.0-32.0); Chloride 104 mmol/L (98-108); Estimated Creatinine Clearance 54.64 ml/min (50-250); Glucose 102 mg/dL (70-99); Potassium 4.0 mmol/L (3.3-5.1)
[2025-09-24] MEDS: Budesonide Respules 0.5 MG/2 ML AMPUL.NEB. INHALATION ×2 (07:38→21:05)
--- NOTE | 2025-09-24 08:26 | CASEMGMT ---
Addendum entered by Veda Samayoa 09/25/25 09:48: P2P offered and completed. Insurance upheld denial. SW updated. Veda Samayoa DC Planning Asst. Original Note: Discharge Planning Updates sent via [facility]Port to [facility]. Precert remains pending. Veda Samayoa DC Planning Asst.
--- NOTE | 2025-09-24 10:21 | PN.HOSP_ITS ---
Subjective Subjective No issues overnight, pending pre-CERT Objective Data Objective Data Vital Signs: Vital Signs Temp Pulse Resp BP Pulse Ox O2 Del Method O2 Flow Rate 97.7 F L 70 16 133/56 H 96 Room Air 2 09/24/25 06:20 09/24/25 07:38 09/24/25 07:38 09/24/25 06:20 09/24/25 07:38 09/24/25 07:38 09/24/25 06:20 Oxygen Flow Rate (L/min) 2 Oxygen Delivery Method Room Air Weight: 167 lb 12.348 oz Body Mass Index (BMI) 27.9 Intake & Output: Intake and Output for Last 24 Hours 09/23/25 09/24/25 09/25/25 03:59 03:59 03:59 Intake Total 600 / 600 1800 / 1800 Output Total 500 / 500 Balance 600 / 600 1800 / 1800 -500 / -500 Lab / Micro Data 09/24/25 06:02 09/24/25 06:02 Labs: Laboratory Results - last 24 hr 09/24/25 06:02: WBC 4.5, RBC 3.69 L, Hgb 10.0 L, Hct 30.5 L, MCV 82.7, MCH 27.1, MCHC 32.8, RDW Std Deviation 45.1 H, RDW Coeff of Georgi 15.0 H, Plt Count 151, MPV 10.0, Immature Gran % (Auto) 0.200, Neut % (Auto) 63.7, Lymph % (Auto) 20.9, M margo % (Auto) 13.9 H, Eos % (Auto) 0.9, Baso % (Auto) 0.4, Absolute Neuts (auto) 2.9, Absolute Lymphs (auto) 0.95, Nucleated RBC % 0, Sodium 140, Potassium 4.0, Chloride 104, Carbon Dioxide 25.4, Anion Gap 10, BUN 15, Creatinine 0.81, Estim Creat Clear Calc 54.64, Est GFR (MDRD) Non-Af 73, BUN/Creatinine Ratio 19.1, G lucose 102 H, Calcium 9.2 Micro: Microbiology 09/21/25 10:49 Mucosa - Nose Respiratory Panel (PCR) - Final 09/19/25 20:53 Mucosa - Nose SARS-CoV-2, Influenza & RSV (PCR) - Final Physical Exam Narrative General: Alert, Oriented x3, Cooperative, No apparent distress HEENT: Atraumatic, PERRLA, EOMI, Normocephalic Oral: Moist Mucosa Neck: Supple, No JVD Lungs: Diminished, Normal air movement, No rhonchi, No wheeze, No rales Cardiovascular: Regular rate, Regular Rhythm, Normal S1, Normal S2, No murmurs Abdomen: Soft, Non Tender, Non-Distended, No Hepato-splenomegaly Extremities: No edema, Capillary Refill Less than 3 Seconds Skin: No rashes, No breakdown Musculoskeletal: Right lower extremity in a soft cast Neurological: No focal neurological deficits, moves all extremities though right lower extremity is limited secondary to fracture Psych/Mental Status: Normal Affect, Appropriate Assessment & Plan Assessment/Plan (1) Nondisplaced fracture of fifth right metatarsal bone: QUALIFIERS: Encounter type: initial encounter Fracture type: c losed Qualified Code(s): S92.354A - Nondisplaced fracture of fifth metatarsal bone, right foot, initial encounter for closed fracture (2) Lumbar compression fracture: (3) Hypoxia: PLAN: Plan # Fracture at base of fifth metatarsal -right foot xrays, 3 views, from 09/19/2025 and noted there is nondisplaced base of 5th metatarsal tuberosity - Evaluated by podiatry, soft cast applied to right foot and ankle - CAM walker boot ordered - Okay for partial weightbearing keeping right foot protected in cam boot and assistance with walker - Will need to follow-up outpatient with podiatry - Continue supportive care and pain control - Case management social work consults 09/21/2025: Appreciate podiatry's assistance, continue with PT/OT to determine outpatient disposition 09/22/2025: She is now agreeable to SNF placement 09/23/2025: Pre-CERT is pending 09/24/2025: Pending pre-CERT # Age-indeterminate compression fractures of L1 and L3 - Suspect acute given pain after fall - Supportive care - PT/OT - Denies any new focal neurocomplaints 09/22/2025: Resting comfortably, no neurocomplaints # Acute hypoxia - Desaturated in the 80s in the ED and placed on 2 L O2 - Chest x-ray with no focal consolidation, queried some mild diffuse hazy reticular airspace opacities of unclear etiology - Patient denies any respiratory complaints - COVID/flu/RSV negative - DuoNebs/Pulmicort - Does have smoking history so may have underlying COPD - Continue supportive care 09/21/2025: Oxygen requirements are up to 4 L, continue with ISS and PAP. Will obtain a respiratory panel 09/22/2025: Respiratory panel is negative and she is down to 2 L nasal cannula. She likely has a component of COPD however there is no wheeze to indicate need for steroids at this time #Hypothyroidism -Continue Synthroid #Tobacco use -Advise cessation -Nicotine replacement available if desired #Hypertension - Continue home medications DVT: Lovenox Charges/Coding Visit Charges Inpatient E&M: 90106 Subs Hosp L1
[2025-09-24] MEDS: Polyethylene Glycol 3350 17 GM PACKET PO ×2 (10:32→21:26)
[2025-09-24] MEDS: Cholecalciferol (VIT D3) 25 MCG TABLET (1,000 UNITS) 50 MCG PO (10:32)
[2025-09-24] MEDS: NIFEdipine 90 MG Tablet PO (10:37)
[2025-09-24] MEDS: 0.9% Saline Lock 10 ML Syringe IV (13:41)
--- NOTE | 2025-09-24 13:50 | CASEMGMT ---
Social Work [facility] stating that insurance has offered a Peer to Peer that will need to be completed by 9am on 09/25 by calling [phone] with pt name, , and ID. SW reviewed pt's therapy notes and met with pt to discuss discharge. Pt expressing that she is still very painful and therapy notes indicate that she cannot maintain partial weight bearing status. Pt lives at home alone and may have difficulty caring for self with current issues. Physician notified and is agreeable to complete Peer to Peer. Information provided to physician. CLARENCE Steven
--- NOTE | 2025-09-24 16:06 | CASEMGMT ---
Addendum entered by Ludmila Cameron 09/24/25 16:23: Social Work Return call from pt sebastian Law. SUKHI spoke with Thanh regarding discharge plan, that peer to peer was completed and that insurance may deny pt need for SNF. Discussed options of going to SNF under Medicaid or returning home with home health. Thanh states pt lives at home alone. 2 steps into the home in the front and a flight of steps into the home from the garage. Pt laundry is also in the basement. Pt has a friend who checks on her periodically and grandchildren check on her some, but pt needs to to be able to care for herself. SUKHI requested grandmarthat speak with pt about therapy participation and consider options for dc plan if pt is denied. SUKHI will continue to follow for dc planning. CLARENCE Reeves Original Note: Social Work Phone call to pt's sebastian Law to discuss discharge plan. VM left requesting return call. CLARENCE Steven
[2025-09-25] VITALS (9 sets, daily range): BP systolic 118–135; BP diastolic 48–60; PULSE 63–79; RESP 14–18; TEMP 36.6–37.1; O2SAT 81–95; BMI 27.6
[2025-09-25] MEDS: Budesonide Respules 0.5 MG/2 ML AMPUL.NEB. INHALATION ×2 (07:22→19:42)
--- NOTE | 2025-09-25 07:25 | CPS ---
Pt. was found on 2L O2 Saturating 88%, pt. now on 3L O2 saturating 92%
--- NOTE | 2025-09-25 08:22 | PN.HOSP_ITS ---
Subjective Subjective Feels much better now that she was able to have a bowel movement. 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 and would likely need significant assistance will have her reevaluated by physical therapy attempting to do partial weightbearing to get a better understanding of her physical therapy needs and will appeal the decision by her insurance to deny her skilled therapy Objective Data Objective Data Vital Signs: Vital Signs Temp Pulse Resp BP Pulse Ox O2 Del Method O2 Flow Rate 97.8 F 70 14 135/50 H 92 Nasal Cannula 3 09/25/25 04:00 09/25/25 07:23 09/25/25 07:23 09/25/25 04:00 09/25/25 07:23 09/25/25 07:23 09/25/25 07:23 Oxygen Flow Rate (L/min) 3 Oxygen Delivery Method Nasal Cannula Weight: 166 lb 0.129 oz Body Mass Index (BMI) 27.6 Intake & Output: Intake and Output for Last 24 Hours 09/24/25 09/25/25 09/26/25 03:59 03:59 03:59 Intake Total 1800 / 1800 2049 / 2049 Output Total 500 / 500 100 / 100 Balance 1800 / 1800 1550 / 1550 -100 / -100 Lab / Micro Data 09/24/25 06:02 09/24/25 06:02 Micro: Microbiology 09/21/25 10:49 Mucosa - Nose Respiratory Panel (PCR) - Final 09/19/25 20:53 Mucosa - Nose SARS-CoV-2, Influenza & RSV (PCR) - Final Physical Exam Narrative General: Alert, Oriented x3, Cooperative, No apparent distress HEENT: Atraumatic, PERRLA, EOMI, Normocephalic Oral: Moist Mucosa Neck: Supple, No JVD Lungs: Diminished, Normal air movement, No rhonchi, No wheeze, No rales Cardiovascular: Regular rate, Regular Rhythm, Normal S1, Normal S2, No murmurs Abdomen: Soft, Non Tender, Non-Distended, No Hepato-splenomegaly Extremities: No edema, Capillary Refill Less than 3 Seconds Skin: No rashes, No breakdown Musculoskeletal: Right lower extremity in a soft cast and a cam boot when up Neurological: No focal neurological deficits, moves all extremities though right lower extremity is limited secondary to fracture Psych/Mental Status: Normal Affect, Appropriate Assessment & Plan Assessment/Plan (1) Nondisplaced fracture of fifth right metatarsal bone: QUALIFIERS: Encounter type: initial encounter Fracture type: c losed Qualified Code(s): S92.354A - Nondisplaced fracture of fifth metatarsal bone, right foot, initial encounter for closed fracture (2) Lumbar compression fracture: (3) Hypoxia: PLAN: Plan # Fracture at base of fifth metatarsal -right foot xrays, 3 views, from 09/19/2025 and noted there is nondisplaced base of 5th metatarsal tuberosity - Evaluated by podiatry, soft cast applied to right foot and ankle - CAM walker boot ordered - Okay for partial weightbearing keeping right foot protected in cam boot and assistance with walker - Will need to follow-up outpatient with podiatry - Continue supportive care and pain control - Case management social work consults 09/21/2025: Appreciate podiatry's assistance, continue with PT/OT to determine outpatient disposition 09/22/2025: She is now agreeable to SNF placement 09/23/2025: Pre-CERT is pending 09/24/2025: Pending pre-CERT 09/25/2025: Insurance denied her physical therapy claims will appeal given the fact that she needs SNF placement # Age-indeterminate compression fractures of L1 and L3 - Suspect acute given pain after fall - Supportive care - PT/OT - Denies any new focal neurocomplaints 09/22/2025: Resting comfortably, no neurocomplaints 09/25/2025: Back pain has improved with bowel movement # Acute hypoxia - Desaturated in the 80s in the ED and placed on 2 L O2 - Chest x-ray with no focal consolidation, queried some mild diffuse hazy reticular airspace opacities of unclear etiology - Patient denies any respiratory complaints - COVID/flu/RSV negative - DuoNebs/Pulmicort - Does have smoking history so may have underlying COPD - Continue supportive care 09/21/2025: Oxygen requirements are up to 4 L, continue with ISS and PAP. Will obtain a respiratory panel 09/22/2025: Respiratory panel is negative and she is down to 2 L nasal cannula. She likely has a component of COPD however there is no wheeze to indicate need for steroids at this time 09/25/2025: She is maintaining saturations on 2 to 3 L nasal cannula would recommend outpatient pulmonology follow-up on discharge #Hypothyroidism -Continue Synthroid #Tobacco use -Advise cessation -Nicotine replacement available if desired #Hypertension - Continue home medications DVT: Lovenox Charges/Coding Visit Charges Inpatient E&M: 10788 Subs Hosp L2
[2025-09-25] MEDS: Polyethylene Glycol 3350 17 GM PACKET PO ×2 (08:54→22:19)
[2025-09-25] MEDS: NIFEdipine 90 MG Tablet PO (08:55)
[2025-09-25] MEDS: Cholecalciferol (VIT D3) 25 MCG TABLET (1,000 UNITS) 50 MCG PO (08:55)
--- NOTE | 2025-09-25 11:02 | CASEMGMT ---
Addendum entered by Ludmila Cameron 09/25/25 15:54: Social Work Per Bernardo Leung, pt's Medicaid is QMB only and there is no LTC benefit. SW spoke with physician, RN and therapy. Pt is improving with pain issues, ambulation and ability to get cam boot on independently. Sw met with pt to discuss discharge plan. Pt is agreeable that she can return home. SW spoke with pt regarding home health services and pt is agreeable to home health SN and PT, pt refusing OT and CLINICAL CYTOGENETICS DIRECTOR. A list of home health care providers including quality and resource use data and consistent with the patient?s preferred geographic region, medical needs, and insurance network were provided from the CarePort Guide. Pt preferred provider is [facility]. Referral made and [facility] is able to accept with start of care on Sunday. Pt notified and is agreeable. Physican updated of discharge plan. Green Sheet on chart to facilitate weekend discharge. CLARENCE Reeves Original Note: Social Work Per Bernardo Acosta, Peer to Peer was completed and pt was denied preauthorization for SNF placement. SW met with pt and informed. Pt states that she does not feel like she can return home alone at this time. SW spoke with pt regarding going to SNF under Medicaid and received therapy under Medicare part B benefits. Pt is agreeable to this. Message sent to [facility]ardo Acosta asking if pt could admit under Medicaid and the possibility that an appeal can be started with [employer] for skilled services. SW will await determination from . CLARENCE Reeves
--- NOTE | 2025-09-25 16:14 | CASEMGMT ---
Social Work Per physician, pt will be ready for discharge tomorrow. Pt notified that [facility] has accepted with a start of care on Sunday and that dc is planned for tomorrow. Pt is agreeable and states she will notify her family and is able to obtain a ride home. Green sheet placed on chart to facilitate weekend dc. No further dc needs at this time. CLARENCE Steven
[2025-09-26 01:58] VITALS: O2SAT 95
[2025-09-26 04:07] VITALS: BP 113/57; PULSE 71; RESP 16; TEMP 36.4; O2SAT 95
[2025-09-26 05:56] VITALS: BMI 27.9
[2025-09-26 06:53] VITALS: O2SAT 95
--- NOTE | 2025-09-26 08:33 | DCINST_ITS ---
Discharge Instructions DC O2, CPAP, BIPAP needs Home O2 Discharge instructions: No Dressing / Incision Discharge Activity: Return to Normal Activity Dressing / Incision Call your doctor if you observe: Fever of 101 or Higher, Shortness of breath, Dizziness, Fainting spells, Swelling in the ankles, Chest pain and Increased palpitations (irregular heartbeat) Follow Up Care Test Results: Test results from this visit will be discussed in further detail at your follow- up appointment, if applicable. Discharge Plan Admission Admit Date/Time: 09/19/25 22:15 Attending Provider: Milton King Primary Care Provider: Tu Younger Consulting Providers: Brian Gutierrez; Wanda Fisher; Elena Griffin Instructions Additional Instructions / Restrictions: Recommended MiraLAX as often as necessary to have a bowel movement every day Discharge Orders/Prescriptions Prescriptions: Continued baclofen 10 mg tablet 10 mg PO QHS cholecalciferol (vitamin D3) 50 mcg (2,000 unit) capsule 50 mcg PO DAILY levothyroxine 25 MCG tablet 25 mcg PO DAILY Patient Comments: take 1 pill Mon-Fri. Take 2 pills Sat and Sun. diphenhydramine-acetaminophen [Tylenol PM Extra Strength] 1 EACH tablet 2 ea PO QHS Patient Comments: SLEEP AID vitamin E (dl, acetate) 400 UNITS capsule 400 units PO DAILY Patient Comments: SUPPLEMENT biotin 10 mg Tablet 10 mg PO DAILY multivitamin Tablet,Chewable 1 tab PO DAILY carvedilol 6.25 mg tablet 6.25 mg PO DAILY losartan 100 mg tablet 100 mg PO DAILY nifedipine 90 mg tablet extended release 24hr 90 mg PO DAILY pregabalin 25 mg capsule 50 mg PO QHS aspirin 81 mg capsule 81 mg PO DAILY Referrals / Follow Up: Brian Gutierrez DPM [Med Staff - Active Staff, Podiatry] - Within 2 Weeks Tu Younger MD [Primary Care Provider, Medical] - Within 1 Week Disposition Disposition (needs filled in before D/C Order can be placed): Home, Self Care
[2025-09-26 08:39] VITALS: PULSE 68; RESP 16; TEMP 36.6; O2SAT 96
[2025-09-26] MEDS: Polyethylene Glycol 3350 17 GM PACKET PO (08:51)
[2025-09-26] MEDS: NIFEdipine 90 MG Tablet PO (08:51)
[2025-09-26] MEDS: Cholecalciferol (VIT D3) 25 MCG TABLET (1,000 UNITS) 50 MCG PO (08:51)
[2025-09-26 09:47] VITALS: O2SAT 88; O2SAT 89; O2SAT 93
--- NOTE | 2025-09-26 10:03 | CASEMGMT ---
Per the RN's testing, pt qualifies for new home oxygen. RN CM to the pt's room at this time. A verbal list of local in-network DME companies were provided to the pt at this time. Pt prefers [employer].?Added oxygen needs to the pt's green sheet with the appropriate documentation needed to complete set up. Pt denies further questions or concerns at this time.
--- NOTE | 2025-09-26 12:27 | NURSING ---
12:16 spoke with David YATSE regarding home oxygen, states okay to send pt home with portable tank from our unit just let [facility] know 12:17 spoke with Hector at [facility] regarding home oxygen set up. Also informed him that [facility] has home portable [employer] unit to send home with pt.
[2025-09-26 14:29] VITALS: BP 125/71; PULSE 69; RESP 17; TEMP 36.8; O2SAT 94
[2025-09-26] MEDS: Senna/Docusate Sodium 1 Tablet 2 TABLET PO (14:32)
--- NOTE | 2025-09-26 16:46 | DS.PCM_ITS ---
Providers Date of Admission: 09/19/25 Primary Care Physician: Dr. Tu Younger MD Consultations 09/19/25 23:14 Consult: Podiatry Routine Consulting Provider: Brian Gutierrez Reason for Consult: R 5th metatarsal fracture EMERGENT Consult: No MD Notified: Yes Date Notified: 09/19/25 Time Notified: 22:18 Method of Notification: Text Reason For Visit: FALL/ LUMBAR FRACTURE W/ INTRACTABLE PAIN Diagnosis Discharge Diagnosis (1) Nondisplaced fracture of fifth right metatarsal bone: Status: Acute Code(s): S92.354A - Nondisplaced fracture of fifth metatarsal bone, right foot, initial encounter for closed fracture Qualifiers: Encounter type: initial encounter Fracture type: closed Qualified Code(s): S92.354A - Nondisplaced fracture of fifth metatarsal bone, right foot, initial encounter for closed fracture (2) Lumbar compression fracture: Status: Acute Code(s): S32.000A - Wedge compression fracture of unspecified lumbar vertebra, initial encounter for closed fracture (3) Hypoxia: Status: Acute Code(s): R09.02 - Hypoxemia Medications at Discharge Home Medications diphenhydramine 25 mg-acetaminophen 500 mg tablet (Tylenol PM Extra Strength) 2 ea PO QHS 05/05/15 levothyroxine 25 mcg tablet 25 mcg PO DAILY 05/05/15 vitamin E (dl, acetate) 180 mg (400 unit) capsule 400 units PO DAILY 05/05/15 baclofen 10 mg tablet 10 mg PO QHS retless legs 03/23/22 cholecalciferol (vitamin D3) 50 mcg (2,000 unit) capsule 50 mcg PO DAILY 03/23/22 biotin 10 mg tablet 10 mg PO DAILY 05/24/22 multivitamin 1 tab PO DAILY 05/24/22 aspirin 81 mg capsule 81 mg PO DAILY MD ordered 09/19/25 carvedilol 6.25 mg tablet 6.25 mg PO DAILY 09/19/25 losartan 100 mg tablet 100 mg PO DAILY 09/19/25 nifedipine 90 mg tablet,extended release 24 hr 90 mg PO DAILY 09/19/25 oxycodone 5 mg tablet 5 mg PO Q8H PRN pain 3 days #10 tabs 09/26/25 pregabalin 25 mg capsule 50 mg (2 x 25 mg) PO QHS 3 days #6 caps 09/26/25 Hospital Course Operations None Procedures None Summary of Care Provided Minutes Spent on Discharge: 37 Hospital Course: Per HPI: FLORECITA HERNANDEZ, is a 84 F who presented to the ED at [facility] on 09/19/25 after sustaining and mechanical fall at home in her living room. On presentation, her primary complaint was severe LBP. Patient had a mechanical fall earlier today where she was getting up and lost her balance and fell forward. She states she hit her right shoulder fell on her left knee, and her right foot bent up underneath her. She has had pain in her back and foot ever since that point in time and also ongoing pain in her right shoulder. She states she did not pass out. She does have some intermittent gait issues and generalized weakness. Unfortunately her pain has been persistent and she is unable to move well enough to go home. Vital signs on presentation showed temperature of 97.9, heart rate 82, respiratory was 18, blood pressure 162/89 and pulse ox was 97% on room air. After she was medicated her oxygen saturations dropped to 84% on room air and she was placed on 2 L nasal cannula with improvement to her to expirations to 95%. Her CBC was unremarkable. Chemistry panel was unremarkable. Liver functions are normal. proBNP was normal. Vitamin D level was 87. TSH was 3.98. Chest x-ray showed no focal consolidation or pleural effusion but did have mild diffuse hazy and reticular airspace opacities. Shoulder x-ray was unremarkable for any acute findings. Lumbar x-ray showed age-indeterminate compression fractures of L1 and L3. Right foot x-ray showed an acute nondisplaced pseudo Avalos avulsion type fracture of the fifth metatarsal base. She was then able to ambulate and had significant daily difficulty with any type of self-care so will require admission but is anticipated to be greater than 2 midnights and patient meets inpatient status criteria. Hospital Course: # Fracture at base of fifth metatarsal -right foot xrays, 3 views, from 09/19/2025 and noted there is nondisplaced base of 5th metatarsal tuberosity - Evaluated by podiatry, soft cast applied to right foot and ankle - CAM walker boot ordered - Okay for partial weightbearing keeping right foot protected in cam boot and assistance with walker - Will need to follow-up outpatient with podiatry - Continue supportive care and pain control - Case management social work consults 09/21/2025: Appreciate podiatry's assistance, continue with PT/OT to determine outpatient disposition 09/22/2025: She is now agreeable to SNF placement 09/23/2025: Pre-CERT is pending 09/24/2025: Pending pre-CERT 09/25/2025: Insurance denied her physical therapy claims will appeal given the fact that she needs SNF placement 09/26/2025: I discussed with her the plan for discharge today she expressed understanding of the risks and benefits of going home and would like to go home today. Will provide her with some oxycodone to relieve the pain from her foot fracture and she also requested a refill on her Lyrica, I did give her 3 days worth of this with the expectation that she would call her provider in the outpatient side to give her a full refill. # Age-indeterminate compression fractures of L1 and L3 - Suspect acute given pain after fall - Supportive care - PT/OT - Denies any new focal neurocomplaints 09/22/2025: Resting comfortably, no neurocomplaints 09/25/2025: Back pain has improved with bowel movement # Acute hypoxia - Desaturated in the 80s in the ED and placed on 2 L O2 - Chest x-ray with no focal consolidation, queried some mild diffuse hazy reticular airspace opacities of unclear etiology - Patient denies any respiratory complaints - COVID/flu/RSV negative - DuoNebs/Pulmicort - Does have smoking history so may have underlying COPD - Continue supportive care 09/21/2025: Oxygen requirements are up to 4 L, continue with ISS and PAP. Will obtain a respiratory panel 09/22/2025: Respiratory panel is negative and she is down to 2 L nasal cannula. She likely has a component of COPD however there is no wheeze to indicate need for steroids at this time 09/25/2025: She is maintaining saturations on 2 to 3 L nasal cannula would recommend outpatient pulmonology follow-up on discharge 09/26/2025: She did have an ambulatory pulse ox today that demonstrated the need of 2 L nasal cannula with ambulation. I have reviewed the oxygen testing, and this patient qualifies for the home equipment and portability. The patient is mobile in the home and the community. #Hypothyroidism -Continue Synthroid #Tobacco use -Advise cessation -Nicotine replacement available if desired #Hypertension - Continue home medications DVT: Lovenox Weight / BMI Weight Weight: 167 lb 8.821 oz Body Mass Index (BMI) 27.9 ABG / Lab / Microbiology Data 09/24/25 06:02 09/24/25 06:02 Microbiology: Microbiology 09/21/25 10:49 Mucosa - Nose Respiratory Panel (PCR) - Final 09/19/25 20:53 Mucosa - Nose SARS-CoV-2, Influenza & RSV (PCR) - Final D/C Instructions Call your doctor if you observe: Fever of 101 or Higher, Shortness of breath, Dizziness, Fainting spells, Swelling in the ankles, Chest pain and Increased palpitations (irregular heartbeat) DC O2, CPAP, BIPAP Needs Home O2 Discharge instructions: No Meaningful Use Info Meaningful Use Meaningful Use Diagnoses (Choose all that apply): None applicable Discharge Plan Admission Admit Date/Time: 09/19/25 22:15 Attending Provider: Milton King Primary Care Provider: Tu Younger Consulting Providers: Brian Gutierrez; Wanda Fisher; Elena Griffin Instructions Additional Instructions / Restrictions: Recommended MiraLAX as often as necessary to have a bowel movement every day Discharge Orders/Prescriptions Prescriptions: New oxycodone 5 mg tablet 5 mg PO Q8H PRN (Reason: pain) 3 Days Qty: 10 0RF Continued baclofen 10 mg tablet 10 mg PO QHS cholecalciferol (vitamin D3) 50 mcg (2,000 unit) capsule 50 mcg PO DAILY levothyroxine 25 MCG tablet 25 mcg PO DAILY Patient Comments: take 1 pill Mon-Fri. Take 2 pills Sat and Sun. diphenhydramine-acetaminophen [Tylenol PM Extra Strength] 1 EACH tablet 2 ea PO QHS Patient Comments: SLEEP AID vitamin E (dl, acetate) 400 UNITS capsule 400 units PO DAILY Patient Comments: SUPPLEMENT biotin 10 mg Tablet 10 mg PO DAILY multivitamin Tablet,Chewable 1 tab PO DAILY carvedilol 6.25 mg tablet 6.25 mg PO DAILY losartan 100 mg tablet 100 mg PO DAILY nifedipine 90 mg tablet extended release 24hr 90 mg PO DAILY aspirin 81 mg capsule 81 mg PO DAILY pregabalin 25 mg capsule 50 mg PO QHS 3 Days Qty: 6 0RF Referrals / Follow Up: Brian Gutierrez DPM [Med Staff - Active Staff, Podiatry] - Within 2 Weeks Tu Younger MD [Primary Care Provider, Medical] - Within 1 Week Disposition Disposition (needs filled in before D/C Order can be placed): Home, Self Care Charges/Coding Visit Charges Inpatient E&M: 27371 Disch Hosp >30min
== END 2025-09-26 15:41 | disposition home or self-care (01) | DRG 543 ==
LOC: ED 21:45 → MS3 09-20 07:22
PROVIDERS: Internal Medicine; Admitting Provider Internal Medicine; Emergency Provider Emergency Medicine; PCP Family Medicine; Visit Provider Family Medicine
DX: M80.0AXA Age-related osteoporosis with current pathological fracture, other site, initial encounter for fracture (principal); S32.010A Wedge compression fracture of first lumbar vertebra, initial encounter for closed fracture; S32.030A Wedge compression fracture of third lumbar vertebra, initial encounter for closed fracture; M80.08XA Age-related osteoporosis with current pathological fracture, vertebra(e), initial encounter for fracture; E88.819 Insulin resistance, unspecified; Z66 Do not resuscitate; J44.9 Chronic obstructive pulmonary disease, unspecified; N18.9 Chronic kidney disease, unspecified; I12.9 Hypertensive chronic kidney disease with stage 1 through stage 4 chronic kidney disease, or unspecified chronic kidney disease; E03.9 Hypothyroidism, unspecified; S92.354A Nondisplaced fracture of fifth metatarsal bone, right foot, initial encounter for closed fracture; E78.5 Hyperlipidemia, unspecified; F17.210 Nicotine dependence, cigarettes, uncomplicated; W01.10XA Fall on same level from slipping, tripping and stumbling with subsequent striking against unspecified object, initial encounter; Z79.82 Long term (current) use of aspirin; Z90.710 Acquired absence of both cervix and uterus; Z79.890 Hormone replacement therapy; R09.02 Hypoxemia; R53.81 Other malaise; Z85.3 Personal history of malignant neoplasm of breast; Z79.899 Other long term (current) drug therapy; Z90.49 Acquired absence of other specified parts of digestive tract; Y92.009 Unspecified place in unspecified non-institutional (private) residence as the place of occurrence of the external cause; M85.88 Other specified disorders of bone density and structure, other site
CPT/HCPCS: 36415; 71045; 72100; 73030; 73560; 73610; 73630; 80048; 80053; 82306; 83735; 83880; 84100; 84443; 85025; 85027; 87631; 87633; 94640; 94668; 97110; 97116; 97162; 97166; 97530; 97535; 99252; 99284; 99406; A4216; G0463; J2405

== ENCOUNTER → 2025-10-26 | Outpatient (CLI) | payer MEDICARE, MEDICAID, SELFPAY ==
--- NOTE | 2025-10-26 11:03 | MRI_ITS ---
PROCEDURE: SPINE LUMBAR (ROUTINE) 10/26/2025 REASON FOR EXAM: PAIN, L3, L1 COMPRESSION, MRI FOR KYPHOPLASTY TECHNIQUE: Procedure Code: MRISPL Modality: MR Procedure: SPINE LUMBAR (ROUTINE) COMPARISON: None available. FINDINGS: For the purposes of this report, the most caudal rectangular vertebral body will be designated L5. The next most caudal trapezoidal shaped vertebral body will be designated S1. The intervening disc at the lumbosacral angle is designated L5-S1. The normal lumbar lordosis is maintained. Compression fractures of L1 and L3 vertebral bodies involving the superior endplates with mild bone marrow edema. There is mild retropulsion of L1 and L3. focal bone marrow edema at the anterior inferior aspect of L2 vertebral body. The lumbar vertebral bodies are normal in alignment. There is no focal bone marrow replacing lesion in the lumbar spine. There is no evidence of signal abnormality in the imaged distal spinal cord. The conus medullaris terminates at the level of L1. T12-L1: Mild retropulsion contributes to mild spinal canal stenosis. No significant neural foraminal narrowing. L1-L2: No significant spinal canal stenosis or neural foraminal narrowing. L2-L3: Mild retropulsion from L3 compression fracture, disc bulge, bilateral facet arthrosis, and ligamentum flavum hypertrophy all contribute to severe spinal canal stenosis. There is near-complete effacement of CSF. Mild bilateral neural foraminal narrowing. L3-L4: Disc bulge, bilateral facet arthrosis, and ligamentum flavum hypertrophy contribute to mild spinal canal stenosis. Mild bilateral neural foraminal narrowing. L4-L5: Disc bulge, bilateral facet arthrosis, and ligamentum flavum hypertrophy contribute to mild spinal canal stenosis. The bilateral traversing nerve roots abut the disc. No significant neural foraminal narrowing. L5-S1: Disc bulge, bilateral facet arthrosis, and ligamentum flavum hypertrophy. Mild spinal canal stenosis. No significant neural foraminal narrowing. Fatty atrophy of the posterior paraspinal muscles. There are multiple bilateral renal cysts. MRI/Spine Lumbar (Routine) IMPRESSION: 1. L1 and L3 subacute compression fractures. 2. Lumbar spondylosis most marked at L2-L3 where there is severe spinal canal s tenosis. Reading Location: [id number]
== END | disposition home or self-care (01) ==
LOC: MRI 10:59
PROVIDERS: PCP Family Medicine; Referring Provider Student in an Organized Health Care Education/Training Program; Visit Provider Student in an Organized Health Care Education/Training Program
DX: S32.030A Wedge compression fracture of third lumbar vertebra, initial encounter for closed fracture (principal); S32.010A Wedge compression fracture of first lumbar vertebra, initial encounter for closed fracture
CPT/HCPCS: 72148